=== PATIENT | female | born 1940 | race Asian ===

== ENCOUNTER 2018-07-26 10:36 | Inpatient (IN) | payer OTHER, MEDICAID ==
[~2018-07-26] VITALS: Ht 152.4 cm; Wt 48.6 kg
[2018-07-26] MEDS ORDERED: [UNRECOGNIZED DRUG - OTHER] (10:49)
[2018-07-26] MEDS ORDERED: AMLODIPINE BESY10 MG ORAL (10:49)
[2018-07-26] MEDS ORDERED: ATORVASTATIN CA20 MG ORAL (10:49)
[2018-07-26] MEDS ORDERED: CATAPRES0.1 MG ORAL (10:49)
[2018-07-26] MEDS ORDERED: MILK OF MA2400 MG/10 ORAL (10:49)
[2018-07-26] MEDS ORDERED: ASPIRIN EC81 MG ORAL (10:49)
[2018-07-26] MEDS ORDERED: KLONOPIN0.5 MG ORAL (10:49)
[2018-07-26] MEDS ORDERED: [UNRECOGNIZED DRUG - OTHER] PO (10:56)
[2018-07-26] MEDS ORDERED: ZOFRAN4 M3 ORAL (10:56)
[2018-07-26] MEDS ORDERED: QUETIAPINE FUMA25 MG ORAL (10:56)
[2018-07-26] MEDS ORDERED: MULTI-VITAMIN-1 EACH PO (10:56)
[2018-07-26] MEDS ORDERED: ACETAMINOPHEN325 M1 ORAL (10:56)
[2018-07-26] MEDS ORDERED: POTASSIUM CHLO20 ME1 ORAL (10:56)
[2018-07-26] MEDS ORDERED: SENNA8.6 M2 PO (10:56)
[2018-07-26 11:37] LABS: ANION GAP 7 mmol/L (5-15); BLOOD UREA NITROGEN 35 mg/dL (7-18); CALCIUM 9.6 MG/DL (8.5-10.1); CARBON DIOXIDE 32 MMOL/L (21-32); CHLORIDE 117 MMOL/L (98-107); CREATININE 1.3 MG/DL (0.55-1.30); SODIUM 156 MMOL/L (136-145)
[2018-07-26 11:47] VITALS: BP 119/73
[2018-07-26 11:49] LABS: HEMATOCRIT 36.1 % (37.0-47.0); HEMOGLOBIN 11.6 G/DL (12.0-16.0); MEAN CORPUSCULAR VOLUME 90 FL (80-99); PLATELET COUNT 76 K/UL (150-450); RED BLOOD COUNT 3.99 M/UL (4.20-5.40); WHITE BLOOD COUNT 9.4 K/UL (4.8-10.8)
[2018-07-26 11:54] LABS: APPEARANCE,URINE CLOUDY; BILIRUBIN, URINE NEGATIVE (NEGATIVE); GLUCOSE, URINE (UA) NEGATIVE (NEGATIVE); KETONES,URINE NEGATIVE (NEGATIVE); LEUKOCYTE ESTERASE ,URINE 3+ (NEGATIVE); NITRITE,URINE NEGATIVE (NEGATIVE); PH,URINE 5 (4.5-8.0); PROTEIN,URINE 2+ (NEGATIVE); UROBILINOGEN,URINE NORMAL MG/DL (0.0-1.0)
[2018-07-26 11:55] LABS: COLOR,URINE YELLOW
--- NOTE | 2018-07-26 11:55 | Diagnostic Imaging Report ---
Indication: Chest pain Technique: One view of the chest Comparison: none Findings: There is some atelectasis or infiltrate in the left infrahilar region. The remainder of the lungs and pleural spaces are clear. The heart size is normal. The aorta is tortuous and calcified. Impression: Left infrahilar atelectasis and/or infiltrate. No acute process otherwise
[2018-07-26 11:59] LABS: ALANINE AMINOTRANSFERASE 21 U/L (12-78); ALBUMIN/GLOBULIN RATIO 0.6 (1.0-2.7); ALKALINE PHOSPHATASE 97 U/L (46-116); ASPARTATE AMINO TRANSFERASE 19 U/L (15-37); BILIRUBIN,TOTAL 0.7 MG/DL (0.2-1.0); CKMB 0.5 NG/ML (0.0-3.6); CREATINE KINASE 27 U/L (26-308)
[2018-07-26] MEDS ORDERED: Acetaminophen 650 MG SUPP RECTAL ONE (12:00)
--- NOTE | 2018-07-26 13:08 | Emergency Room Report ---
History of Present Illness General Chief Complaint: General Complaint Source: Medical Record, EMS Present Illness HPI Patient presents from nursing facility with fever Tachycardia and possible bladder infection Patient herself is not able to provide full history Has underlying dementia There was no reports of vomiting or diarrhea Unknown regarding change in medications Allergies: Coded Allergies: No Known Allergies (Unverified , 07/26/18) Patient History Limited by: medical condition Past Medical History: see triage record Pertinent Family History: unable to obtain Reviewed Nursing Documentation: PMH: Agreed; PSxH: Agreed Nursing Documentation-PMH Past Medical History: No History, Except For Hx Cardiac Problems: No - hyperlipidemia, metabolic encephalopathy, UTI, Amemia , Hx Hypertension: Yes Hx Diabetes: Yes - Type 2 Review of Systems All Other Systems: limited - Other than the ones mentioned in the history of present illness all others are reviewed however they do stay limited due to the patient's mental status Physical Exam Vital Signs Date Time Temp Pulse Resp B/P (MAP) Pulse Ox O2 Delivery O2 Flow Rate FiO2 07/26/18 10:35 98.4 124 16 124/67 100 Room Air 98.4 Sp02 EP Interpretation: reviewed, normal General Appearance: lethargic - Patient is sluggish to respond, however responsive to verbal and physical stimuli Head: normocephalic, atraumatic Eyes: bilateral eye PERRL, bilateral eye EOMI ENT: dry mucus membranes Neck: supple Respiratory: lungs clear, no respiratory distress, no retraction Cardiovascular #1: tachycardia Gastrointestinal: non tender, soft Musculoskeletal: other - Patient does not follow all commands appropriately however, does not show any obvious focal deficit in the upper extremity Neurologic: responsive - To verbal stimuli Skin: normal color, no rash Lymphatic: no adenopathy Medical Decision Making Diagnostic Impression: Primary Impression: UTI (urinary tract infection) Additional Impressions: Sepsis Dehydration ER Course Patient is a fairly complex patient with multiple differential to consideration including but not limited to cardiac cardiopulmonary, infectious and vascular emergencies Patient's urine sample does show significant bacteria Sodium levels also elevated indicative of dehydration Patient has further IV hydrated requires broad-spectrum antibiotics and further inpatient care Labs Test 07/26/18 11:05 07/26/18 11:25 07/26/18 11:40 07/26/18 22:09 Sodium Level 156 MMOL/L (136-145) Potassium Level 3.0 MMOL/L (3.5-5.1) Chloride Level 117 MMOL/L (98-107) Carbon Dioxide Level 32 MMOL/L (21-32) Anion Gap 7 mmol/L (5-15) Blood Urea Nitrogen 35 mg/dL (7-18) Creatinine 1.3 MG/DL (0.55-1.30) Estimat Glomerular Filtration Rate mL/min (>60) Glucose Level 225 MG/DL (74-106) Lactic Acid Level 1.70 mmol/L (0.4-2.0) Calcium Level 9.6 MG/DL (8.5-10.1) Total Bilirubin 0.7 MG/DL (0.2-1.0) Aspartate Amino Transf (AST/SGOT) 19 U/L (15-37) Alanine Aminotransferase (ALT/SGPT) 21 U/L (12-78) Alkaline Phosphatase 97 U/L (46-116) Total Creatine Kinase 27 U/L (26-308) Creatine Kinase MB 0.5 NG/ML (0.0-3.6) Creatine Kinase MB Relative Index 1.8 Total Protein 7.9 G/DL (6.4-8.2) Albumin 3.0 G/DL (3.4-5.0) Globulin 4.9 g/dL Albumin/Globulin Ratio 0.6 (1.0-2.7) Urine Color Yellow Urine Appearance Cloudy Urine pH 5 (4.5-8.0) Urine Specific [place] 1.020 (1.005-1.035) Urine Protein 2+ (NEGATIVE) Urine Glucose (UA) Negative (NEGATIVE) Urine Ketones Negative (NEGATIVE) Urine Blood 5+ (NEGATIVE) Urine Nitrite Negative (NEGATIVE) Urine Bilirubin Negative (NEGATIVE) Urine Urobilinogen Normal MG/DL (0.0-1.0) Urine Leukocyte Esterase 3+ (NEGATIVE) Urine RBC 10-15 /HPF (0 - 2) Urine WBC Tntc /HPF (0 - 2) Urine Squamous Epithelial Cells Few /LPF (NONE/OCC) Urine Bacteria Many /HPF (NONE) White Blood Count 9.4 K/UL (4.8-10.8) Red Blood Count 3.99 M/UL (4.20-5.40) Hemoglobin 11.6 G/DL (12.0-16.0) Hematocrit 36.1 % (37.0-47.0) Mean Corpuscular Volume 90 FL (80-99) Mean Corpuscular Hemoglobin 29.2 PG (27.0-31.0) Mean Corpuscular Hemoglobin Concent 32.3 G/DL (32.0-36.0) Red Cell Distribution Width 13.0 % (11.6-14.8) Platelet Count 76 K/UL (150-450) Mean Platelet Volume 8.9 FL (6.5-10.1) Neutrophils (%) (Auto) % (45.0-75.0) Lymphocytes (%) (Auto) % (20.0-45.0) Monocytes (%) (Auto) % (1.0-10.0) Eosinophils (%) (Auto) % (0.0-3.0) Basophils (%) (Auto) % (0.0-2.0) Differential Total Cells Counted 100 Neutrophils % (Manual) 92 % (45-75) Lymphocytes % (Manual) 6 % (20-45) Monocytes % (Manual) 2 % (1-10) Eosinophils % (Manual) 0 % (0-3) Basophils % (Manual) 0 % (0-2) Band Neutrophils 0 % (0-8) Platelet Estimate Decreased Platelet Morphology Normal Hypochromasia 1+ Anisocytosis 1+ Arterial Blood pH 7.458 (7.350-7.450) Arterial Blood Partial Pressure CO2 41.4 mmHg (35.0-45.0) Arterial Blood Partial Pressure O2 66.1 mmHg (75.0-100.0) Arterial Blood HCO3 28.7 mmol/L (22.0-26.0) Arterial Blood Oxygen Saturation 92.9 % (95-100) Arterial Blood Base Excess 4.4 (-2-2) Renny Test Positive Test 07/26/18 23:10 07/27/18 08:15 07/27/18 12:15 07/27/18 15:53 Activated Partial Thromboplast Time 23 SEC (23-33) 46 SEC (23-33) 117 SEC (23-33) D-Dimer 18.29 mg/L FEU (0.00-0.49) Troponin I 0.044 ng/mL (0.000-0.056) White Blood Count 15.5 K/UL (4.8-10.8) Red Blood Count 3.99 M/UL (4.20-5.40) Hemoglobin 12.0 G/DL (12.0-16.0) Hematocrit 36.2 % (37.0-47.0) Mean Corpuscular Volume 91 FL (80-99) Mean Corpuscular Hemoglobin 30.0 PG (27.0-31.0) Mean Corpuscular Hemoglobin Concent 33.1 G/DL (32.0-36.0) Red Cell Distribution Width 13.6 % (11.6-14.8) Platelet Count 84 K/UL (150-450) Mean Platelet Volume 9.0 FL (6.5-10.1) Neutrophils (%) (Auto) % (45.0-75.0) Lymphocytes (%) (Auto) % (20.0-45.0) Monocytes (%) (Auto) % (1.0-10.0) Eosinophils (%) (Auto) % (0.0-3.0) Basophils (%) (Auto) % (0.0-2.0) Differential Total Cells Counted 100 Neutrophils % (Manual) 91 % (45-75) Lymphocytes % (Manual) 7 % (20-45) Monocytes % (Manual) 2 % (1-10) Eosinophils % (Manual) 0 % (0-3) Basophils % (Manual) 0 % (0-2) Band Neutrophils 0 % (0-8) Other Cell Type Pathologist comment Platelet Estimate Decreased Platelet Morphology Normal Red Blood Cell Morphology Normal Reticulocyte Count 2.3 % (0.0-2.0) Fibrinogen 375 mg/dL (200-400) Sodium Level 152 MMOL/L (136-145) Potassium Level 2.9 MMOL/L (3.5-5.1) Chloride Level 117 MMOL/L (98-107) Carbon Dioxide Level 27 MMOL/L (21-32) Anion Gap 8 mmol/L (5-15) Blood Urea Nitrogen 35 mg/dL (7-18) Creatinine 1.2 MG/DL (0.55-1.30) Estimat Glomerular Filtration Rate mL/min (>60) Glucose Level 213 MG/DL (74-106) Uric Acid 5.1 MG/DL (2.6-7.2) Calcium Level 9.3 MG/DL (8.5-10.1) Phosphorus Level 2.7 MG/DL (2.5-4.9) Magnesium Level 2.1 MG/DL (1.8-2.4) Iron Level 23 ug/dL (50-175) Total Iron Binding Capacity 142 ug/dL (250-450) Percent Iron Saturation 16 % (15-50) Unsaturated Iron Binding 119 ug/dL (112-346) Ferritin 547 NG/ML (8-388) Total Bilirubin 0.8 MG/DL (0.2-1.0) Aspartate Amino Transf (AST/SGOT) 18 U/L (15-37) Alanine Aminotransferase (ALT/SGPT) 17 U/L (12-78) Alkaline Phosphatase 95 U/L (46-116) Total Protein 7.4 G/DL (6.4-8.2) Albumin 2.5 G/DL (3.4-5.0) Globulin 4.9 g/dL Albumin/Globulin Ratio 0.5 (1.0-2.7) Vitamin B12 Level 1873 PG/ML (193-986) Folate 34.8 NG/ML (8.6-58.9) Thyroid Stimulating Hormone (TSH) 1.577 uiU/mL (0.358-3.740) Free Thyroxine 1.37 NG/DL (0.76-1.46) HIV (1&2) Antibody Rapid Negative (NEGATIVE) Carcinoembryonic Antigen 3.5 ng/mL (0.0-4.7) Test 07/27/18 23:05 07/28/18 02:30 Activated Partial Thromboplast Time 98 SEC (23-33) Rhythm Strip Diag. Results EP Interpretation: yes Rate: 110 Rhythm: no PVC's, no ectopy, other - Sinus tach Chest X-Ray Diagnostic Results Chest X-Ray Diagnostic Results : Chest X-Ray Ordered: Yes # of Views/Limited/Complete: 1 View Indication: Shortness of Breath EP Interpretation: Yes Interpretation: no pneumothorax, other - Left lower lobe atelectasis, heart size normal Impression: Other - Left lower lobe atelectasis/effusion Electronically Signed by: Yi Marte DO Last Vital Signs Date Time Temp Pulse Resp B/P (MAP) Pulse Ox O2 Delivery O2 Flow Rate FiO2 07/26/18 12:02 101.8 07/26/18 11:47 126 20 119/73 100 Room Air Status: improved Disposition: ADMITTED INPATIENT Condition: Serious Referrals: NON PHYSICIAN (PCP) Yi Marte DO Jul 26, 2018 13:08
[2018-07-26 13:10] VITALS: BP 129/74
[2018-07-26 14:45] VITALS: BP 112/80
[2018-07-26] MEDS ORDERED: Acetaminophen 500mg (ES) tab ORAL PRN (15:25)
[2018-07-26 16:00] VITALS: BP 115/69
--- NOTE | 2018-07-26 16:35 | Consultation ---
Consult Note Consult Note HyperNatremia Patient presents from nursing facility with fever Tachycardia and possible bladder infection Patient herself is not able to provide full history Has underlying dementia There was no reports of vomiting or diarrhea Unknown regarding change in medications No Known Allergies (Unverified , 07/26/18) Past Medical History: No History, Except For Hx Cardiac Problems: No - hyperlipidemia, metabolic encephalopathy, UTI, Amemia , Hx Hypertension: Yes Hx Diabetes: Yes - Type 2 Assessment/Plan Dehydration DM OOC Anemia UTI 1/2 NS KCL Labs in am Per consultants Parvez Bergman MD Jul 26, 2018 16:35
[2018-07-26] MEDS: D5 1/2NS w/KCl 40meq 1000ml 1,000 ML IV SCH (17:47)
[2018-07-26] MEDS: NovoLOG Insulin Flexpen SUBQ SCH ×2 (17:49→21:23)
[2018-07-26] MEDS ORDERED: cefTRIAXone 1 GM in D5W 55 ML IVPB SCH (18:00)
[2018-07-26 20:00] VITALS: BP 95/55
[2018-07-26] MEDS: Piperacillin/Tazobactam 3.375 GM in D5W 110 ML IVPB SCH (21:18)
[2018-07-26] MEDS ORDERED: Enoxaparin 80mg Inj SUBQ ONE (22:00)
[2018-07-26] MEDS ORDERED: Heparin 2000 units/Ns 1000ml IV SCH (22:15)
[2018-07-27] VITALS: BP 107/77
[2018-07-27] MEDS ORDERED: Heparin 2000 units/Ns 1000ml IV SCH (00:30)
[2018-07-27] MEDS ORDERED: Heparin 25,000u/D5W 500ml 500 ML IV SCH ×4 (00:45→23:45)
[2018-07-27 04:00] VITALS: BP 112/95
[2018-07-27] MEDS: Piperacillin/Tazobactam 3.375 GM in D5W 110 ML IVPB SCH ×3 (04:14→20:29)
--- NOTE | 2018-07-27 06:01 | Consultation ---
Consult Note Consult Note Hematology Consultation ANIRUDH: DVT and thrombocytopenia REQ MD: Yi Asencio DOS: 07/27/2018 ID Ms. Ronaldo Lara is a pleasant 78y old Yakut-speaking female with limited history per record presents from nursing facility with fever, Tachycardia and possible bladder infection, Patient herself is not able to provide full history , Has underlying dementia, will need to contact facility for further info. reviewed imaging shows a dvt and heme/pulm consulted for further eval and treatment. There was no reports of vomiting or diarrhea Unknown regarding change in medications Nephrology was consulted Allergies: No Known Allergies (Unverified , 07/26/18) Limited by: medical condition Past Medical History: see triage record Pertinent Family History: unable to obtain Reviewed Nursing Documentation: PMH: Agreed; PSxH: Agreed Past Medical History: No History, Except For Hx Cardiac Problems: No - hyperlipidemia, metabolic encephalopathy, UTI, Amemia , Hx Hypertension: Yes Hx Diabetes: Yes - Type 2 ER ROS - General Review of Systems All Other Systems: limited - Other than the ones mentioned in the history of present illness all others are reviewed however they do stay limited due to the patient's mental status ER Physical Exam - General Physical Exam Last 24 Hour Vital Signs Date Time Temp Pulse Resp B/P (MAP) Pulse Ox O2 Delivery O2 Flow Rate FiO2 07/27/18 04:00 124 07/27/18 04:00 97.2 124 21 112/95 (101) 93 97.2 07/27/18 00:00 119 07/27/18 00:00 97.2 121 20 107/77 (87) 100 97.2 07/26/18 21:00 Nasal Cannula 2.0 07/26/18 20:00 97.3 108 19 95/55 (68) 100 97.3 07/26/18 20:00 111 07/26/18 16:00 106 07/26/18 16:00 96.8 103 18 115/69 (84) 100 96.8 07/26/18 15:52 Room Air 07/26/18 15:00 107 07/26/18 14:45 96.1 111 18 112/80 (91) 100 96.1 07/26/18 13:54 100.0 119 15 129/74 100 Nasal Cannula 2.0 100.0 07/26/18 13:10 100.0 119 15 129/74 100 Nasal Cannula 2.0 100.0 07/26/18 12:32 100.0 07/26/18 12:02 101.8 07/26/18 11:47 101.8 126 20 119/73 100 Room Air 101.8 07/26/18 10:35 98.4 124 16 124/67 100 Room Air 98.4 Gen: NAD Pulm: CTAB, no cwr CV: RRR, no mgr Abd: soft, nt, nd Ext: no swelling of lower ext Neuro: demented A/R: DVT of the left leg -- new onset, has not had these symptoms before --> anticoagulation has been ordered is on heparin gtt --> monitor platelet count closely --> if >50k, okay to continue anticoag, however if drops consider ivc filter --> will obtain thrombocytopenia w/u Thrombocytopenia --> unknown cause, first time here at [facility], do not have baseline, could be reactive --> smear, hep, hiv, us abd ordered Dehydration DM OOC Anemia UTI Greatly appreciate consultation! Dewayne Gayle MD Jul 27, 2018 06:01
[2018-07-27] MEDS: NovoLOG Insulin Flexpen SUBQ SCH ×4 (06:47→20:57)
[2018-07-27 08:00] VITALS: BP 133/80
[2018-07-27 08:41] LABS: HEMATOCRIT 36.2 % (37.0-47.0); MEAN CORPUSCULAR VOLUME 91 FL (80-99); PLATELET COUNT 84 K/UL (150-450); RED BLOOD COUNT 3.99 M/UL (4.20-5.40); RED CELL DISTRIBUTION WIDTH 13.6 % (11.6-14.8); WHITE BLOOD COUNT 15.5 K/UL (4.8-10.8)
[2018-07-27] MEDS: Aspirin EC 81mg tab ORAL SCH (08:47)
[2018-07-27] MEDS ORDERED: Heparin 5000 units/ml inj IV SCH (09:05)
[2018-07-27 09:07] LABS: ALANINE AMINOTRANSFERASE 17 U/L (12-78); ALBUMIN 2.5 G/DL (3.4-5.0); ALBUMIN/GLOBULIN RATIO 0.5 (1.0-2.7); ALKALINE PHOSPHATASE 95 U/L (46-116); ANION GAP 8 mmol/L (5-15); ASPARTATE AMINO TRANSFERASE 18 U/L (15-37); BILIRUBIN,TOTAL 0.8 MG/DL (0.2-1.0); BLOOD UREA NITROGEN 35 mg/dL (7-18); CALCIUM 9.3 MG/DL (8.5-10.1); CARBON DIOXIDE 27 MMOL/L (21-32); CHLORIDE 117 MMOL/L (98-107); CREATININE 1.2 MG/DL (0.55-1.30); FERRITIN 547 NG/ML (8-388); POTASSIUM 2.9 MMOL/L (3.5-5.1); SODIUM 152 MMOL/L (136-145)
[2018-07-27 09:32] LABS: % IRON SATURATION 16 % (15-50); IRON 23 ug/dL (50-175); TOTAL IRON BINDING CAPACITY 142 ug/dL (250-450)
[2018-07-27 10:08] LABS: PHOSPHORUS 2.7 MG/DL (2.5-4.9)
--- NOTE | 2018-07-27 10:26 | GI Initial Consult Note ---
History of Present Illness General Date patient seen: Jul 27, 2018 Time patient seen: 12:13 Reason for Hospitalization: General Complaint Referring physician: SINDI BUSTAMANTE Reason for Consultation: ABDOMINAL PAIN Present Illness HPI Patient presents from nursing facility with fever Tachycardia and possible bladder infection Patient herself is not able to provide full history Has underlying dementia There was no reports of vomiting or diarrhea Unknown regarding change in medications Gi consulted for AMS r/o hepatic encephalopathy. ROS limited, pt seen awake NAD with no active s/sx of N/V/D. Patient presents today with leukocytosis and electrolyte imbalance. Unknown history of endoscopy / colonoscopy. Home Meds Reported Medications Ondansetron* (ZOFRAN*) 4 Mg Tablet, 4 MG ORAL Q4HR PRN for Nausea & Vomiting, TAB 07/26/18 Acetaminophen* (ACETAMINOPHEN 325MG TABLET*) 325 Mg Tablet, 650 MG ORAL Q4H PRN for Fever/Headache/Mild Pain, TAB 07/26/18 Quetiapine Fumarate* (SEROQUEL*) 25 Mg Tablet, 25 MG ORAL BID, TAB 07/26/18 Sennosides (SENNA) 8.6 Mg Tablet, 8.6 MG PO QHS, TAB 07/26/18 Potassium Chloride* (K-DUR*) 20 Meq Tab.er.prt, 20 MEQ ORAL DAILY, #7 TAB 0 Refills 07/26/18 [mylanta max strength] No Conflict Check, 15 ML PO Q6HR PRN for dyspepsia 07/26/18 Multivit-Min/Iron Fum/Folic AC (Oprvn-Meipphi-Cjjkwkjc Tablet) 1 Each Tablet, 1 EACH PO DAILY, TAB 07/26/18 Magnesium Hydroxide* (MILK OF MAGNESIA*) 2,400 Mg/10 Ml Oral.susp, 30 ML ORAL DAILY PRN for Constipation, ML 07/26/18 Clonazepam* (KLONOPIN*) 0.5 Mg Tablet, 0.5 MG ORAL BID, #15 TAB 0 Refills 07/26/18 [lispro ss] No Conflict Check 07/26/18 Clonidine Hcl* (CATAPRES*) 0.1 Mg Tablet, 0.1 MG ORAL EVERY 4 HOURS PRN for For High Blood Pressure, TAB 07/26/18 Atorvastatin Calcium* (ATORVASTATIN CALCIUM*) 20 Mg Tablet, 20 MG ORAL BEDTIME, TAB 07/26/18 Aspirin Ec* (ASPIRIN EC*) 81 Mg Tablet.dr, 81 MG ORAL DAILY, TAB 07/26/18 Amlodipine Besylate* (AMLODIPINE BESYLATE*) 10 Mg Tablet, 10 MG ORAL DAILY, TAB 07/26/18 Med list reviewed/reconciled: Yes Allergies: Coded Allergies: No Known Allergies (Unverified , 07/26/18) Patient History Limited by: medical condition History Provided By: Medical Record PMH Narrative Limited by: medical condition Past Medical History: see triage record Pertinent Family History: unable to obtain Reviewed Nursing Documentation: PMH: Agreed; PSxH: Agreed Nursing Documentation-PMH Past Medical History: No History, Except For Hx Cardiac Problems: No - hyperlipidemia, metabolic encephalopathy, UTI, Anemia. Hx Hypertension: Yes Hx Diabetes: Yes - Type 2 Review of Systems All Other Systems: limited Physical Exam Vital Signs Date Time Temp Pulse Resp B/P (MAP) Pulse Ox O2 Delivery O2 Flow Rate FiO2 07/26/18 10:35 98.4 124 16 124/67 100 Room Air 98.4 07/26/18 13:10 2.0 Sp02 EP Interpretation: reviewed, normal Labs Laboratory Tests Test 07/26/18 11:05 07/26/18 11:25 07/26/18 11:40 07/26/18 22:09 Sodium Level 156 MMOL/L (136-145) H Potassium Level 3.0 MMOL/L (3.5-5.1) L Chloride Level 117 MMOL/L (98-107) H Carbon Dioxide Level 32 MMOL/L (21-32) Anion Gap 7 mmol/L (5-15) Blood Urea Nitrogen 35 mg/dL (7-18) H Creatinine 1.3 MG/DL (0.55-1.30) Estimat Glomerular Filtration Rate mL/min (>60) Glucose Level 225 MG/DL (74-106) H Lactic Acid Level 1.70 mmol/L (0.4-2.0) Calcium Level 9.6 MG/DL (8.5-10.1) Total Bilirubin 0.7 MG/DL (0.2-1.0) Aspartate Amino Transf (AST/SGOT) 19 U/L (15-37) Alanine Aminotransferase (ALT/SGPT) 21 U/L (12-78) Alkaline Phosphatase 97 U/L (46-116) Total Creatine Kinase 27 U/L (26-308) Creatine Kinase MB 0.5 NG/ML (0.0-3.6) Creatine Kinase MB Relative Index 1.8 Total Protein 7.9 G/DL (6.4-8.2) Albumin 3.0 G/DL (3.4-5.0) L Globulin 4.9 g/dL Albumin/Globulin Ratio 0.6 (1.0-2.7) L Urine Color Yellow Urine Appearance Cloudy Urine pH 5 (4.5-8.0) Urine Specific [place] 1.020 (1.005-1.035) Urine Protein 2+ (NEGATIVE) H Urine Glucose (UA) Negative (NEGATIVE) Urine Ketones Negative (NEGATIVE) Urine Blood 5+ (NEGATIVE) H Urine Nitrite Negative (NEGATIVE) Urine Bilirubin Negative (NEGATIVE) Urine Urobilinogen Normal MG/DL (0.0-1.0) Urine Leukocyte Esterase 3+ (NEGATIVE) H Urine RBC 10-15 /HPF (0 - 2) H Urine WBC Tntc /HPF (0 - 2) H Urine Squamous Epithelial Cells Few /LPF (NONE/OCC) Urine Bacteria Many /HPF (NONE) H White Blood Count 9.4 K/UL (4.8-10.8) Red Blood Count 3.99 M/UL (4.20-5.40) L Hemoglobin 11.6 G/DL (12.0-16.0) L Hematocrit 36.1 % (37.0-47.0) L Mean Corpuscular Volume 90 FL (80-99) Mean Corpuscular Hemoglobin 29.2 PG (27.0-31.0) Mean Corpuscular Hemoglobin Concent 32.3 G/DL (32.0-36.0) Red Cell Distribution Width 13.0 % (11.6-14.8) Platelet Count 76 K/UL (150-450) L Mean Platelet Volume 8.9 FL (6.5-10.1) Neutrophils (%) (Auto) % (45.0-75.0) Lymphocytes (%) (Auto) % (20.0-45.0) Monocytes (%) (Auto) % (1.0-10.0) Eosinophils (%) (Auto) % (0.0-3.0) Basophils (%) (Auto) % (0.0-2.0) Differential Total Cells Counted 100 Neutrophils % (Manual) 92 % (45-75) H Lymphocytes % (Manual) 6 % (20-45) L Monocytes % (Manual) 2 % (1-10) Eosinophils % (Manual) 0 % (0-3) Basophils % (Manual) 0 % (0-2) Band Neutrophils 0 % (0-8) Platelet Estimate Decreased L Platelet Morphology Normal Hypochromasia 1+ Anisocytosis 1+ Arterial Blood pH 7.458 (7.350-7.450) Arterial Blood Partial Pressure CO2 41.4 mmHg (35.0-45.0) Arterial Blood Partial Pressure O2 66.1 mmHg (75.0-100.0) L Arterial Blood HCO3 28.7 mmol/L (22.0-26.0) H Arterial Blood Oxygen Saturation 92.9 % (95-100) L Arterial Blood Base Excess 4.4 (-2-2) H Renny Test Positive Test 07/26/18 23:10 07/27/18 08:15 Activated Partial Thromboplast Time 23 SEC (23-33) 46 SEC (23-33) H D-Dimer 18.29 mg/L FEU (0.00-0.49) H Troponin I 0.044 ng/mL (0.000-0.056) White Blood Count 15.5 K/UL (4.8-10.8) #H Red Blood Count 3.99 M/UL (4.20-5.40) L Hemoglobin 12.0 G/DL (12.0-16.0) Hematocrit 36.2 % (37.0-47.0) L Mean Corpuscular Volume 91 FL (80-99) Mean Corpuscular Hemoglobin 30.0 PG (27.0-31.0) Mean Corpuscular Hemoglobin Concent 33.1 G/DL (32.0-36.0) Red Cell Distribution Width 13.6 % (11.6-14.8) Platelet Count 84 K/UL (150-450) L Mean Platelet Volume 9.0 FL (6.5-10.1) Neutrophils (%) (Auto) % (45.0-75.0) Lymphocytes (%) (Auto) % (20.0-45.0) Monocytes (%) (Auto) % (1.0-10.0) Eosinophils (%) (Auto) % (0.0-3.0) Basophils (%) (Auto) % (0.0-2.0) Differential Total Cells Counted 100 Neutrophils % (Manual) 91 % (45-75) H Lymphocytes % (Manual) 7 % (20-45) L Monocytes % (Manual) 2 % (1-10) Eosinophils % (Manual) 0 % (0-3) Basophils % (Manual) 0 % (0-2) Band Neutrophils 0 % (0-8) Platelet Estimate Decreased L Platelet Morphology Normal Red Blood Cell Morphology Normal Reticulocyte Count Pending Fibrinogen 375 mg/dL (200-400) Sodium Level 152 MMOL/L (136-145) H Potassium Level 2.9 MMOL/L (3.5-5.1) L Chloride Level 117 MMOL/L (98-107) H Carbon Dioxide Level 27 MMOL/L (21-32) Anion Gap 8 mmol/L (5-15) Blood Urea Nitrogen 35 mg/dL (7-18) H Creatinine 1.2 MG/DL (0.55-1.30) Estimat Glomerular Filtration Rate mL/min (>60) Glucose Level 213 MG/DL (74-106) H Uric Acid 5.1 MG/DL (2.6-7.2) Calcium Level 9.3 MG/DL (8.5-10.1) Phosphorus Level 2.7 MG/DL (2.5-4.9) Magnesium Level 2.1 MG/DL (1.8-2.4) Iron Level 23 ug/dL (50-175) L Total Iron Binding Capacity 142 ug/dL (250-450) L Percent Iron Saturation 16 % (15-50) Unsaturated Iron Binding 119 ug/dL (112-346) Ferritin 547 NG/ML (8-388) H Total Bilirubin 0.8 MG/DL (0.2-1.0) Aspartate Amino Transf (AST/SGOT) 18 U/L (15-37) Alanine Aminotransferase (ALT/SGPT) 17 U/L (12-78) Alkaline Phosphatase 95 U/L (46-116) Total Protein 7.4 G/DL (6.4-8.2) Albumin 2.5 G/DL (3.4-5.0) L Globulin 4.9 g/dL Albumin/Globulin Ratio 0.5 (1.0-2.7) L Vitamin B12 Level 1873 PG/ML (193-986) H Folate 34.8 NG/ML (8.6-58.9) Thyroid Stimulating Hormone (TSH) 1.577 uiU/mL (0.358-3.740) Free Thyroxine 1.37 NG/DL (0.76-1.46) HIV (1&2) Antibody Rapid Negative (NEGATIVE) General Appearance: well appearing, no apparent distress, alert Head: normocephalic EENT: PERRL/EOMI, normal ENT inspection Neck: supple Respiratory: normal breath sounds, no respiratory distress Cardiovascular: normal rate Gastrointestinal: normal inspection, non tender, soft, normal bowel sounds, non -distended Rectal: deferred Genitourinary: no CVA tenderness Musculoskeletal: normal inspection, back normal Neurologic: alert, responsive Skin: normal inspection, normal color, no rash, warm/dry, palpation normal, well hydrated Lymphatic: normal inspection, no adenopathy Current Medications Current Medications Medications (Trade) Dose Ordered Sig/Laure Route PRN Reason Start Time Stop Time Status Last Admin Dose Admin Acetaminophen (Tylenol) 650 mg Q4H PRN ORAL Fever/Headache/Mild Pain 07/26/18 16:45 08/25/18 16:44 Aspirin (Ecotrin) 81 mg DAILY ORAL 07/27/18 09:00 08/26/18 08:59 Ceftriaxone Sodium 1 gm/ Dextrose 55 ml @ 110 mls/hr Q24H IVPB 07/26/18 18:00 08/02/18 17:59 07/26/18 17:47 Dextrose (Dextrose 50%) 25 ml Q30M PRN IV Hypoglycemia 07/26/18 15:15 08/25/18 15:14 Dextrose (Dextrose 50%) 50 ml Q30M PRN IV Hypoglycemia 07/26/18 15:15 08/25/18 15:14 Dextrose/ Electrolytes 1,000 ml @ 50 mls/hr Q20H IV 07/26/18 17:00 08/25/18 16:59 07/26/18 17:47 Famotidine (Pepcid) 20 mg BID ORAL 07/26/18 18:00 08/25/18 17:59 07/26/18 17:46 Heparin Sodium/ Dextrose 500 ml @ 20.24 mls/ hr ADJUST PER PROTOCOL IV 07/27/18 09:05 08/26/18 09:04 07/27/18 09:59 Insulin Aspart (NovoLOG) BEFORE MEALS AND HS SUBQ 07/26/18 16:30 08/25/18 16:29 07/27/18 06:47 Piperacillin Sod/ Tazobactam Sod 3.375 gm/Dextrose 110 ml @ 27.5 mls/hr Q8H IVPB 07/26/18 20:00 08/02/18 19:59 07/27/18 04:14 GI: Plan Problems: (1) Encephalopathy due to metabolic factor or toxin (2) Dementia with behavioral disturbance (3) UTI (urinary tract infection) (4) Sepsis Plan abdominal U/S pending r/o hepatic encephalopathy 2/2 cirrhosis maintain NPO + IVFs, fu ST evaluation calorie count PEG if needed prn transfusions ppi abx zofran prn fu labs outpatient GI procedures Discussed with Dr. Argueta. Thank you for this patient referral, we will follow. The patient was seen and examined at bedside and all new and available data was reviewed in the patients chart. I agree with the above findings, impression and plan. (Patient seen earlier today. Signature stamp does not reflect patient encounter time.). - [facility] Jul 27, 2018 10:26
--- NOTE | 2018-07-27 11:11 | Consultation ---
History of Present Illness General Date patient seen: Jul 26, 2018 Chief Complaint: General Complaint Present Illness HPI 78y old Macedonian-speaking female with hx of mmp and dementia who was brought in with fever and Tachycardia. The pt has cognitive impairment and is disorganized. the pt is unable to provide any hx. the pt gets agitated. Allergies: Coded Allergies: No Known Allergies (Unverified , 07/26/18) Medication History Scheduled Amlodipine Besylate* (Amlodipine Besylate*), 10 MG ORAL DAILY, (Reported) Aspirin Ec* (Aspirin Ec*), 81 MG ORAL DAILY, (Reported) Atorvastatin Calcium* (Atorvastatin Calcium*), 20 MG ORAL BEDTIME, (Reported) Clonazepam* (Klonopin*), 0.5 MG ORAL BID, (Reported) Multivit-Min/Iron Fum/Folic AC (Ezyde-Wonqnfj-Znbevfvh Tablet), 1 EACH PO DAILY, (Reported) Potassium Chloride* (K-Dur*), 20 MEQ ORAL DAILY, (Reported) Quetiapine Fumarate* (Seroquel*), 25 MG ORAL BID, (Reported) Sennosides (Senna), 8.6 MG PO QHS, (Reported) Scheduled PRN Acetaminophen* (Acetaminophen 325MG Tablet*), 650 MG ORAL Q4H PRN for Fever/ Headache/Mild Pain, (Reported) Clonidine Hcl* (Catapres*), 0.1 MG ORAL EVERY 4 HOURS PRN for For High Blood Pressure, (Reported) Magnesium Hydroxide* (Milk Of Magnesia*), 30 ML ORAL DAILY PRN for Constipation, (Reported) Ondansetron* (Zofran*), 4 MG ORAL Q4HR PRN for Nausea & Vomiting, (Reported) [mylanta max strength], 15 ML PO Q6HR PRN for dyspepsia, (Reported) Miscellaneous Medications [lispro ss], (Reported) Patient History Limited by: medical condition History Provided By: Patient, Medical Record Healthcare decision maker Resuscitation status Full Code Advanced Directive on File Past Medical/Surgical History Past Medical/Surgical History: (1) Sepsis (2) UTI (urinary tract infection) Review of Systems Psychiatric: Reports: prior hx, anxiety, depressed feelings, emotional problems , hallucinations Physical Exam General Appearance: no apparent distress, alert, confused, agitated Last 24 Hour Vital Signs Date Time Temp Pulse Resp B/P (MAP) Pulse Ox O2 Delivery O2 Flow Rate FiO2 07/27/18 09:04 Room Air 07/27/18 08:00 97.6 109 19 133/80 (97) 98 97.6 07/27/18 08:00 111 07/27/18 04:00 124 07/27/18 04:00 97.2 124 21 112/95 (101) 93 97.2 07/27/18 00:00 119 07/27/18 00:00 97.2 121 20 107/77 (87) 100 97.2 07/26/18 21:00 Nasal Cannula 2.0 07/26/18 20:00 97.3 108 19 95/55 (68) 100 97.3 07/26/18 20:00 111 07/26/18 16:00 106 07/26/18 16:00 96.8 103 18 115/69 (84) 100 96.8 07/26/18 15:52 Room Air 07/26/18 15:00 107 07/26/18 14:45 96.1 111 18 112/80 (91) 100 96.1 07/26/18 13:54 100.0 119 15 129/74 100 Nasal Cannula 2.0 100.0 07/26/18 13:10 100.0 119 15 129/74 100 Nasal Cannula 2.0 100.0 07/26/18 12:32 100.0 07/26/18 12:02 101.8 07/26/18 11:47 101.8 126 20 119/73 100 Room Air 101.8 Intake and Output 07/26/18 07/27/18 19:00 07:00 Intake Total 437.5 ml 786.82 ml Balance 437.5 ml 786.82 ml Intake Oral 320 ml IV Total 117.5 ml 786.82 ml # Voids 1 2 Laboratory Tests Test 07/26/18 11:25 07/26/18 11:40 07/26/18 22:09 07/26/18 23:10 Urine Color Yellow Urine Appearance Cloudy Urine pH 5 (4.5-8.0) Urine Specific [place] 1.020 (1.005-1.035) Urine Protein 2+ (NEGATIVE) H Urine Glucose (UA) Negative (NEGATIVE) Urine Ketones Negative (NEGATIVE) Urine Blood 5+ (NEGATIVE) H Urine Nitrite Negative (NEGATIVE) Urine Bilirubin Negative (NEGATIVE) Urine Urobilinogen Normal MG/DL (0.0-1.0) Urine Leukocyte Esterase 3+ (NEGATIVE) H Urine RBC 10-15 /HPF (0 - 2) H Urine WBC Tntc /HPF (0 - 2) H Urine Squamous Epithelial Cells Few /LPF (NONE/OCC) Urine Bacteria Many /HPF (NONE) H White Blood Count 9.4 K/UL (4.8-10.8) Red Blood Count 3.99 M/UL (4.20-5.40) L Hemoglobin 11.6 G/DL (12.0-16.0) L Hematocrit 36.1 % (37.0-47.0) L Mean Corpuscular Volume 90 FL (80-99) Mean Corpuscular Hemoglobin 29.2 PG (27.0-31.0) Mean Corpuscular Hemoglobin Concent 32.3 G/DL (32.0-36.0) Red Cell Distribution Width 13.0 % (11.6-14.8) Platelet Count 76 K/UL (150-450) L Mean Platelet Volume 8.9 FL (6.5-10.1) Neutrophils (%) (Auto) % (45.0-75.0) Lymphocytes (%) (Auto) % (20.0-45.0) Monocytes (%) (Auto) % (1.0-10.0) Eosinophils (%) (Auto) % (0.0-3.0) Basophils (%) (Auto) % (0.0-2.0) Differential Total Cells Counted 100 Neutrophils % (Manual) 92 % (45-75) H Lymphocytes % (Manual) 6 % (20-45) L Monocytes % (Manual) 2 % (1-10) Eosinophils % (Manual) 0 % (0-3) Basophils % (Manual) 0 % (0-2) Band Neutrophils 0 % (0-8) Platelet Estimate Decreased L Platelet Morphology Normal Hypochromasia 1+ Anisocytosis 1+ Arterial Blood pH 7.458 (7.350-7.450) Arterial Blood Partial Pressure CO2 41.4 mmHg (35.0-45.0) Arterial Blood Partial Pressure O2 66.1 mmHg (75.0-100.0) L Arterial Blood HCO3 28.7 mmol/L (22.0-26.0) H Arterial Blood Oxygen Saturation 92.9 % (95-100) L Arterial Blood Base Excess 4.4 (-2-2) H Renny Test Positive Activated Partial Thromboplast Time 23 SEC (23-33) D-Dimer 18.29 mg/L FEU (0.00-0.49) H Troponin I 0.044 ng/mL (0.000-0.056) Test 07/27/18 08:15 White Blood Count 15.5 K/UL (4.8-10.8) #H Red Blood Count 3.99 M/UL (4.20-5.40) L Hemoglobin 12.0 G/DL (12.0-16.0) Hematocrit 36.2 % (37.0-47.0) L Mean Corpuscular Volume 91 FL (80-99) Mean Corpuscular Hemoglobin 30.0 PG (27.0-31.0) Mean Corpuscular Hemoglobin Concent 33.1 G/DL (32.0-36.0) Red Cell Distribution Width 13.6 % (11.6-14.8) Platelet Count 84 K/UL (150-450) L Mean Platelet Volume 9.0 FL (6.5-10.1) Neutrophils (%) (Auto) % (45.0-75.0) Lymphocytes (%) (Auto) % (20.0-45.0) Monocytes (%) (Auto) % (1.0-10.0) Eosinophils (%) (Auto) % (0.0-3.0) Basophils (%) (Auto) % (0.0-2.0) Differential Total Cells Counted 100 Neutrophils % (Manual) 91 % (45-75) H Lymphocytes % (Manual) 7 % (20-45) L Monocytes % (Manual) 2 % (1-10) Eosinophils % (Manual) 0 % (0-3) Basophils % (Manual) 0 % (0-2) Band Neutrophils 0 % (0-8) Platelet Estimate Decreased L Platelet Morphology Normal Red Blood Cell Morphology Normal Reticulocyte Count 2.3 % (0.0-2.0) H Activated Partial Thromboplast Time 46 SEC (23-33) H Fibrinogen 375 mg/dL (200-400) Sodium Level 152 MMOL/L (136-145) H Potassium Level 2.9 MMOL/L (3.5-5.1) L Chloride Level 117 MMOL/L (98-107) H Carbon Dioxide Level 27 MMOL/L (21-32) Anion Gap 8 mmol/L (5-15) Blood Urea Nitrogen 35 mg/dL (7-18) H Creatinine 1.2 MG/DL (0.55-1.30) Estimat Glomerular Filtration Rate mL/min (>60) Glucose Level 213 MG/DL (74-106) H Uric Acid 5.1 MG/DL (2.6-7.2) Calcium Level 9.3 MG/DL (8.5-10.1) Phosphorus Level 2.7 MG/DL (2.5-4.9) Magnesium Level 2.1 MG/DL (1.8-2.4) Iron Level 23 ug/dL (50-175) L Total Iron Binding Capacity 142 ug/dL (250-450) L Percent Iron Saturation 16 % (15-50) Unsaturated Iron Binding 119 ug/dL (112-346) Ferritin 547 NG/ML (8-388) H Total Bilirubin 0.8 MG/DL (0.2-1.0) Aspartate Amino Transf (AST/SGOT) 18 U/L (15-37) Alanine Aminotransferase (ALT/SGPT) 17 U/L (12-78) Alkaline Phosphatase 95 U/L (46-116) Total Protein 7.4 G/DL (6.4-8.2) Albumin 2.5 G/DL (3.4-5.0) L Globulin 4.9 g/dL Albumin/Globulin Ratio 0.5 (1.0-2.7) L Vitamin B12 Level 1873 PG/ML (193-986) H Folate 34.8 NG/ML (8.6-58.9) Thyroid Stimulating Hormone (TSH) 1.577 uiU/mL (0.358-3.740) Free Thyroxine 1.37 NG/DL (0.76-1.46) HIV (1&2) Antibody Rapid Negative (NEGATIVE) Microbiology Date/Time Source Procedure Growth Status 07/26/18 11:25 Urine,Clean Catch Urine Culture - Preliminary Gram Negative Bacillus 1 Resulted Height (Feet): 5 Height (Inches): 2.00 Weight (Pounds): 102 Medications Current Medications Medications (Trade) Dose Ordered Sig/Laure Route PRN Reason Start Time Stop Time Status Last Admin Dose Admin Acetaminophen (Tylenol) 650 mg Q4H PRN ORAL Fever/Headache/Mild Pain 07/26/18 16:45 08/25/18 16:44 Aspirin (Ecotrin) 81 mg DAILY ORAL 07/27/18 09:00 08/26/18 08:59 Ceftriaxone Sodium 1 gm/ Dextrose 55 ml @ 110 mls/hr Q24H IVPB 07/26/18 18:00 08/02/18 17:59 07/26/18 17:47 Dextrose (Dextrose 50%) 25 ml Q30M PRN IV Hypoglycemia 07/26/18 15:15 08/25/18 15:14 Dextrose (Dextrose 50%) 50 ml Q30M PRN IV Hypoglycemia 07/26/18 15:15 08/25/18 15:14 Dextrose/ Electrolytes 1,000 ml @ 50 mls/hr Q20H IV 07/26/18 17:00 08/25/18 16:59 07/26/18 17:47 Famotidine (Pepcid) 20 mg BID ORAL 07/26/18 18:00 08/25/18 17:59 07/26/18 17:46 Heparin Sodium/ Dextrose 500 ml @ 20.24 mls/ hr ADJUST PER PROTOCOL IV 07/27/18 09:05 08/26/18 09:04 07/27/18 09:59 Insulin Aspart (NovoLOG) BEFORE MEALS AND HS SUBQ 07/26/18 16:30 08/25/18 16:29 07/27/18 06:47 Piperacillin Sod/ Tazobactam Sod 3.375 gm/Dextrose 110 ml @ 27.5 mls/hr Q8H IVPB 07/26/18 20:00 08/02/18 19:59 07/27/18 04:14 Quetiapine Fumarate (SEROquel) 25 mg Q12HR ORAL 07/27/18 10:40 08/26/18 10:39 Assessment/Plan Problem List: (1) Dementia with behavioral disturbance ICD Codes: F03.91 - Unspecified dementia with behavioral disturbance SNOMED: 3667996854160 (2) Encephalopathy due to metabolic factor or toxin SNOMED: 343688438 Status: stable, progressing Assessment/Plan Seroquel 25mg po bid Seroquel 12.5mg prn provided gilberto/Kimmy Geller MD Jul 27, 2018 11:11
[2018-07-27 12:00] VITALS: BP 137/73
--- NOTE | 2018-07-27 12:03 | Consultation ---
Consult Note Assessment/Plan DICT # [id number] Foreign Parekh MD Jul 27, 2018 12:03
[2018-07-27] MEDS: D5 1/2NS w/KCl 40meq 1000ml 1,000 ML IV SCH (12:53)
--- NOTE | 2018-07-27 15:41 | Diagnostic Imaging Report ---
Indication: Abdominal pain, abnormal renal function Technique: Neri-scale and duplex images of the upper abdomen were obtained. Doppler interrogation of the hepatic vessels Comparison: none Findings: Exam is somewhat limited; patient was difficult to scan due to patient body habitus and suboptimal cooperation Gallbladder is unremarkable, without stones, wall thickening, nor pericholecystic fluid. Sonographic Lee's sign is negative. Common bile duct measures for mm in diameter. No intrahepatic biliary ductal dilatation. Liver demonstrates normal echogenicity, no focal abnormality. However, the left hepatic lobe is not well demonstrated Portal vein and hepatic veins are patent. Pancreas is unremarkable. Spleen is unremarkable. Left kidney measures 8.8 cm in length. Right kidney measures 10.3 cm length. Both kidneys demonstrate normal echogenicity. Left kidney demonstrates mild hydronephrosis echogenic shadowing foci are seen in the left kidney . Non-aneurysmal abdominal aorta . Layering debris is seen dependently within the bladder Impression: Somewhat limited exam, as described Mild left hydronephrosis. Possible left renal calyceal calculi. Consider CT for better characterization if clinically indicated Negative for gallstones or dilated ducts Debris noted within the bladder Note inability to visualize portions of the left hepatic lobe
--- NOTE | 2018-07-27 15:52 | Cardiology Report ---
APPROVED REPORT EXAM: Two-dimensional and M-mode echocardiogram with Doppler and color Doppler. INDICATION OTHER M-Mode DIMENSIONS IVSd1.4 (0.7-1.1cm)Left Atrium (MM)2.0 (1.6-4.0cm) LVDd4.1 (3.5-5.6cm)Aortic Root3.6 (2.0-3.7cm) PWd1.6 (0.7-1.1cm)Aortic Cusp Exc.1.6 (1.5-2.0cm) IVSs1.4 cm LVDs2.9 (2.5-4.0cm) PWs1.8 cm Normal left ventricular chamber size, hyper dynamic systolic function and wall motion to extent visualized. Left ventricular ejection fraction estimated to be 65-70 %. No evidence of left ventricular hypertrophy. No evidence of pericardial effusion. All other cardiac chamber sizes are within normal limits. Focal aortic valve sclerosis with adequate cusp excursion. Mildly Thickened mitral valve leaflets with normal excursion. Mildly Mitral annulus and aortic root calcification. Pulmonic valve not well visualized. Normal tricuspid valve structure. . IVC at normal size with decrease physiologic collapse suggestive of increased RA pressure. A color flow and spectral Doppler study was performed and revealed: Mild aortic regurgitation. Trace mitral regurgitation. Normal left ventricular diastolic function . Mild tricuspid regurgitation. Tricuspid systolic velocities suggests peak right ventricular systolic pressure of 38 mmHg,consistent with mild pulmonary hypertension .
--- NOTE | 2018-07-27 15:59 | Cardiology Report ---
APPROVED REPORT EKG Measurement Heart [id number] Sinus tachycardia Abnormal ECG
[2018-07-27 16:00] VITALS: BP 143/80
--- NOTE | 2018-07-27 16:13 | Cardiology Report ---
APPROVED REPORT EKG Measurement Heart [id number] Sin[address] Nonspecific ST and T wave abnormality Abnormal ECG
[2018-07-27 20:00] VITALS: BP 126/68
[2018-07-27] MEDS: 1/2NS w/KCl 20mEq 1000ml 1,000 ML IV SCH (20:56)
--- NOTE | 2018-07-27 21:00 | Progress Note ---
DATE: 07/27/2018 SUBJECTIVE: The patient continues to be agitated. Pulled out the IV. She was placed in self restraints. The patient is not following direction. The patient is confused and disorganized. The patient is delusional. The patient has memory impairment. MENTAL STATUS EXAMINATION: The patient is confused and disoriented. Mood is agitated. Affect is constricted, congruent with mood. Thought process is concrete and disorganized. Memory is impaired. Insight and judgment non-existent. ASSESSMENT: 1. Dementia with behavioral disturbance. 2. Encephalopathy due to toxic or metabolic disorder. PLAN: 1. We will continue the patient on Seroquel 25 mg b.i.d., which she was on it before admission. 2. We will continue the Seroquel p.r.n. Kimmy Chavez M.D. DR: MATTIE JOB#: [id number] CC:
--- NOTE | 2018-07-27 21:04 | Nephrology Progress Note ---
Assessment/Plan Problem List: (1) UTI (urinary tract infection) (2) Dehydration (3) Hypernatremia (4) Hypokalemia (5) Malnutrition Assessment Dehydration- Hypernatremia DM OOC Anemia UTI Malnutrition /2 NS KCL Labs in am Per consultants Plan 2 NS KCL Labs in am Per consultants Subjective ROS Limited/Unobtainable: No Constitutional: Reports: malaise Objective Objective Last 24 Hour Vital Signs Date Time Temp Pulse Resp B/P (MAP) Pulse Ox O2 Delivery O2 Flow Rate FiO2 07/27/18 16:00 97.8 116 20 143/80 (101) 98 97.8 07/27/18 16:00 117 07/27/18 12:00 97.2 120 19 137/73 (94) 98 97.2 07/27/18 12:00 122 07/27/18 09:04 Room Air 07/27/18 08:00 97.6 109 19 133/80 (97) 98 97.6 07/27/18 08:00 111 07/27/18 04:00 124 07/27/18 04:00 97.2 124 21 112/95 (101) 93 97.2 07/27/18 00:00 119 07/27/18 00:00 97.2 121 20 107/77 (87) 100 97.2 Intake and Output 07/26/18 07/27/18 19:00 07:00 Intake Total 437.5 ml 786.82 ml Balance 437.5 ml 786.82 ml Intake Oral 320 ml IV Total 117.5 ml 786.82 ml # Voids 1 2 Laboratory Tests 07/26/18 22:09: Arterial Blood pH 7.458H, Arterial Blood Partial Pressure CO2 41.4, Arterial Blood Partial Pressure O2 66.1L, Arterial Blood HCO3 28.7H, Arterial Blood Oxygen Saturation 92.9L, Arterial Blood Base Excess 4.4H, Renny Test Positive 07/26/18 23:10: Activated Partial Thromboplast Time 23, D-Dimer 18.29H, Troponin I 0.044 07/27/18 08:15: Activated Partial Thromboplast Time 46H, White Blood Count 15.5#H, Red Blood Count 3.99L, Hemoglobin 12.0, Hematocrit 36.2L, Mean Corpuscular Volume 91, Mean Corpuscular Hemoglobin 30.0, Mean Corpuscular Hemoglobin Concent 33.1, Red Cell Distribution Width 13.6, Platelet Count 84L, Mean Platelet Volume 9.0, Neutrophils (%) (Auto) , Lymphocytes (%) (Auto) , Monocytes (%) (Auto) , Eosinophils (%) (Auto) , Basophils (%) (Auto) , Differential Total Cells Counted 100, Neutrophils % (Manual) 91H, Lymphocytes % (Manual) 7L, Monocytes % (Manual) 2, Eosinophils % (Manual) 0, Basophils % (Manual) 0, Band Neutrophils 0 , Platelet Estimate DecreasedL, Platelet Morphology Normal, Red Blood Cell Morphology Normal, Reticulocyte Count 2.3H, Fibrinogen 375, Sodium Level 152H, Potassium Level 2.9L, Chloride Level 117H, Carbon Dioxide Level 27, Anion Gap 8 , Blood Urea Nitrogen 35H, Creatinine 1.2, Estimat Glomerular Filtration Rate , Glucose Level 213H, Uric Acid 5.1, Calcium Level 9.3, Phosphorus Level 2.7, Magnesium Level 2.1, Iron Level 23L, Total Iron Binding Capacity 142L, Percent Iron Saturation 16, Unsaturated Iron Binding 119, Ferritin 547H, Total Bilirubin 0.8, Aspartate Amino Transf (AST/SGOT) 18, Alanine Aminotransferase ( ALT/SGPT) 17, Alkaline Phosphatase 95, Total Protein 7.4, Albumin 2.5L, Globulin 4.9, Albumin/Globulin Ratio 0.5L, Vitamin B12 Level 1873H, Folate 34.8 , Thyroid Stimulating Hormone (TSH) 1.577, Free Thyroxine 1.37, HIV (1&2) Antibody Rapid Negative 07/27/18 12:15: Sickle Cell Screen [Pending], Haptoglobin [Pending], Carcinoembryonic Antigen [ Pending], Hepatitis A IgM Antibody [Pending], Hepatitis B Surface Antigen [ Pending], Hepatitis B Core IgM Antibody [Pending], Hepatitis C Antibody [Pending ] 07/27/18 15:53: Activated Partial Thromboplast Time 117H Height (Feet): 5 Height (Inches): 2.00 Weight (Pounds): 102 General Appearance: no apparent distress Cardiovascular: tachycardia Respiratory/Chest: decreased breath sounds Abdomen: soft Parvez Bergman MD Jul 27, 2018 21:04
--- NOTE | 2018-07-27 21:45 | Consultation ---
DATE OF CONSULTATION: 07/27/2018 PULMONARY CONSULTATION CONSULTING PHYSICIAN: Foreign Parekh M.D. REFERRING PHYSICIAN: Yi Asencio M.D. REASON FOR CONSULTATION: DVT. HISTORY OF PRESENT ILLNESS: The patient is a 78-year-old female, halfway resident with a presumed history of hypertension, hyperlipidemia, and possible dementia, who was brought into the ER with fever, tachycardia, systemic inflammatory response syndrome, and possible urosepsis. She has gram-negative bacillus UTI. Chest x-ray done in the emergency department showed some atelectasis versus infiltrate in the left infrahilum. She has duplex of the lower extremities that was done, which showed rather extensive acute DVT in the superficial femoral vein on the left. The patient's history is not completely known, but she does have thrombocytopenia. We started her on heparin; nonetheless, given the finding of rather extensive clot. PAST MEDICAL HISTORY: Presumed dementia, hypertension, hyperlipidemia, and anemia. PAST SURGICAL HISTORY: Unknown. ALLERGIES: No known drug allergies. MEDICATIONS: Prior to admission, medications reviewed. SOCIAL HISTORY: She is a halfway resident. Family denies any tobacco, alcohol, or drug use. FAMILY HISTORY: Noncontributory. REVIEW OF SYSTEMS: Unobtainable. PHYSICAL EXAMINATION: VITAL SIGNS: Temperature is 97.2, pulse 124, blood pressure 112/95, respiratory rate 21, and saturating 98% on room air. GENERAL: She is an elderly demented female, in no acute distress. HEENT: Normocephalic and atraumatic. Oropharynx is clear with moist mucous membranes. NECK: Supple without lymphadenopathy or JVD. CHEST: Clear. HEART: regular, but tachycardic. ABDOMEN: Benign. EXTREMITIES: No cyanosis, clubbing, or edema. ANCILLARY DATA: White count 15.5, hemoglobin 12, and platelet count 84,000. ABG, 7.45/41/66/28/92. D-dimer 18.29. Sodium 150, potassium 2.9, chloride 117, bicarbonate 27, BUN 35, creatinine 1.2, and glucose 213. LFTs normal. Albumin 2.5, globulin 4.9, B12 1873, and folate 34.8. TSH 1.57 and T4 1.37. Urinalysis, 5+ blood, 2+ protein, 3+ leukocyte esterase, the tincture of white, and many bacteria. Serologies pending. Micro, gram-negative bacillus in the urine. Imaging, chest x-ray reviewed by myself shows atelectasis in the left infrahilar region. No other findings. Duplex of the lower extremities shows extensive left superficial femoral vein DVT. ASSESSMENT: The patient is a 78-year-old female, halfway resident with a presumed history of dementia, hypertension, and hyperlipidemia, presenting with a systemic inflammatory response syndrome, gram-negative bacillus UTI, and acute left superficial vein DVT with likely pulmonary embolism as well. PROBLEM LIST: 1. Extensive left superficial vein DVT (this is a deep vein). 2. Likely pulmonary embolism as well. 3. Hypoxemia. 4. Gram-negative bacillus UTI. 5. Hypernatremia and hypokalemia. 6. Protein-calorie malnutrition. 7. Likely underlying dementia versus encephalopathy. 8. Hypertension. 9. Hyperlipidemia. 10. Thrombocytopenia. 11. Normocytic anemia. TREATMENT PLAN: 1. Given the patient will require anticoagulation for DVT, I would not workup PE any further. 2. We will follow up echocardiogram. 3. Continue heparin drip. 4. Agree with Hematology, would continue unless platelets less than 50,000. 5. Unable to anticoagulate. We will need an IVC filter. 6. Workup of hypercoagulable state and thrombocytopenia per Dr. Gayle. 7. Continue antibiotics for urinary tract infection. 8. IV fluids replete free water and potassium per Renal. 9. Monitor volumes. 10. The patient is a Full Code. 11. Continue to discuss goals of care. Dr. Asencio, thank you for allowing me to assist in the care of your patient. If I may be of any assistance, please do not hesitate to ask. Foreign Parekh M.D. DR: PORTILLO JOB#: [id number] CC:
--- NOTE | 2018-07-27 23:15 | History and Physical Report ---
DATE OF ADMISSION: 07/26/2018 HISTORY OF PRESENT ILLNESS: The patient is very demented, poor historian, cannot get any reliable history from the patient. The patient is very demented and confused, requiring self restraints because he keeps pulling out the IV. The patient was admitted for UTI, sepsis, as well as hypernatremia and hypokalemia. The patient found to have acute DVT and admitted also to rule out sepsis, cannot get any history from the patient, has dementia, comes from a facility. PAST MEDICAL HISTORY: Organic brain syndrome, hypertension, hyperlipidemia, anxiety, agitation, psychosis, constipation. PAST SURGICAL HISTORY: Unable to obtain. MEDICATIONS: Amlodipine, Norvasc, Klonopin, Lipitor, multivitamin, potassium, Seroquel, Senokot. ALLERGIES: No known drug allergies. FAMILY HISTORY: Unable to obtain. SOCIAL HISTORY: Unable to obtain. REVIEW OF SYSTEMS: Unable to obtain, very poor historian. PHYSICAL EXAMINATION: VITAL SIGNS: Temperature 97.3, pulse is 108, blood pressure 95/55. HEENT: PERRLA. NECK: Supple. No lymphadenopathy. CHEST: Clear to auscultation. GASTROINTESTINAL: Soft, nontender, nondistended. No organomegaly. EXTREMITIES: No edema. Reflexes on both sides. NEUROLOGIC: Does not follow neurologic exam. Oriented to name. The patient is on soft restraints. LABORATORY DATA: WBC of 9.4, hemoglobin 11.6, and platelets of 76. Sodium 153, potassium 3.9, chloride 117, BUN of 35, creatinine 1.2, and glucose of 213. ASSESSMENT AND PLAN: Rule out UTI, sepsis, hypernatremia, severe hypokalemia, elevated blood sugar, azotemia, dehydration, pulling out IVs, confused. The patient also has acute DVT. I have asked Dr. Dewayne Gayle, Dr. Parekh, Dr. Argueta, Dr. Shimon Card, and Dr. Bergman to see the patient for the above-mentioned diagnoses and treatment. Antibiotics per Dr. Shimon Card. Yi Asencio M.D. DR: Adolfo JOB#: [id number] CC:
[2018-07-28] VITALS: BP 122/68
--- NOTE | 2018-07-28 00:45 | Consultation ---
DATE OF CONSULTATION: 07/27/2018 INFECTIOUS DISEASES CONSULTATION CONSULTING PHYSICIAN: Shimon Card M.D. PRIMARY ATTENDING PHYSICIAN: Yi Asencio M.D. REASON FOR CONSULTATION: Sepsis, UTI, pneumonia. HISTORY OF PRESENT ILLNESS: The patient is a 78-year-old [place] retirement resident admitted yesterday with fever and tachycardia. The patient had a temperature of 101.8 at the time of admission, had tachycardia with heart rate of 126, platelets are very low, positive leukocytosis. The patient is not the source of history, has dementia, is confused and on restraints. 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 MEDICATIONS: Seroquel, heparin, aspirin, Zosyn, , ceftriaxone, Tylenol, insulin. SOCIAL HISTORY: long-term resident. Has 2 children. No history of alcohol, drug abuse, or smoking. No other history obtainable. The patient mostly bedbound and wheelchair bound. According to family, she is confused. PHYSICAL EXAMINATION: VITAL SIGNS: Temperature 97.2, pulse 120, blood pressure 137/73. GENERAL APPEARANCE: Seems to be thin. HEENT: Head and neck, normocephalic. Moist mucous membranes. HEART: Tachycardic. LUNGS: Clear. ABDOMEN: Soft and nontender. EXTREMITIES: No edema. NEUROLOGIC: He is on restraint. LABORATORY AND DIAGNOSTIC DATA: Sodium 152, potassium 2.9, BUN 35, creatinine 1.2, glucose 213. WBC 15.5, hemoglobin 12, hematocrit 36.2, platelets 84. Urine culture growing gram-negative rods. UA showed wbc's too numerous to count, rbc's 10 to 15, leukocyte esterase 2+. Chest x-ray showed left infrahilar atelectasis or infiltrate. Venous duplex showed acute DVT in the left superficial femoral vein. IMPRESSION: 1. Sepsis with fever. 2. Leukocytosis. 3. Tachycardia. 4. Source of sepsis seems to be UTI. Urine culture growing gram-negative rods, may also have pneumonia and atelectasis. 5. DVT of the left leg. 6. Anemia. 7. Thrombocytopenia. 8. Diabetes mellitus type 2. 9. Electrolyte imbalance with hypernatremia and hypokalemia. RECOMMENDATION: We will continue with Zosyn. Discontinue Rocephin. We will follow up the cultures. At the end of my exam, I thank Dr. Asencio for involving me in the care of this patient. Shimon Card M.D. DR: Henrietta JOB#: [id number] CC:
[2018-07-28 04:00] VITALS: BP 121/78
[2018-07-28] MEDS: Piperacillin/Tazobactam 3.375 GM in D5W 110 ML IVPB SCH ×3 (04:18→20:39)
[2018-07-28] MEDS: NovoLOG Insulin Flexpen SUBQ SCH ×4 (06:04→21:00)
[2018-07-28 08:00] VITALS: BP 123/77
[2018-07-28 08:24] LABS: ANION GAP 9 mmol/L (5-15); BLOOD UREA NITROGEN 32 mg/dL (7-18); CARBON DIOXIDE 29 MMOL/L (21-32); CHLORIDE 117 MMOL/L (98-107); CREATININE 1.2 MG/DL (0.55-1.30); SODIUM 154 MMOL/L (136-145)
[2018-07-28 08:32] LABS: ALANINE AMINOTRANSFERASE 22 U/L (12-78); ALBUMIN 2.3 G/DL (3.4-5.0); ALKALINE PHOSPHATASE 82 U/L (46-116); ASPARTATE AMINO TRANSFERASE 19 U/L (15-37); BILIRUBIN,DIRECT 0.2 MG/DL (0.0-0.3); BILIRUBIN,TOTAL 0.6 MG/DL (0.2-1.0); PHOSPHORUS 2.5 MG/DL (2.5-4.9)
[2018-07-28] MEDS: Aspirin EC 81mg tab ORAL SCH (08:39)
[2018-07-28 09:48] LABS: HEMATOCRIT 33.4 % (37.0-47.0); HEMOGLOBIN 10.9 G/DL (12.0-16.0); MEAN CORPUSCULAR VOLUME 90 FL (80-99); PLATELET COUNT 59 K/UL (150-450); RED CELL DISTRIBUTION WIDTH 13.5 % (11.6-14.8); WHITE BLOOD COUNT 6.3 K/UL (4.8-10.8)
[2018-07-28] MEDS ORDERED: Heparin 25,000u/D5W 500ml 500 ML IV SCH ×3 (10:30→17:30)
[2018-07-28] MEDS ORDERED: Vancomycin 1gm/D5W 275ml IVPB ONE ×2 (10:30)
[2018-07-28] MEDS ORDERED: Heparin 5000 units/ml inj IV SCH ×2 (10:30→17:30)
[2018-07-28] MEDS: Vancomycin 750mg/NS 250ml IVPB SCH ×2 (11:05→11:06)
--- NOTE | 2018-07-28 11:16 | GI Progress Note ---
Assessment/Plan Problems: (1) UTI (urinary tract infection) ICD Codes: N39.0 - Urinary tract infection, site not specified SNOMED: 69607486 (2) Sepsis ICD Codes: A41.9 - Sepsis, unspecified organism SNOMED: 91777212 (3) Dehydration ICD Codes: E86.0 - Dehydration SNOMED: 70499287 (4) Malnutrition ICD Codes: E46 - Unspecified protein-calorie malnutrition SNOMED: 94209404 (5) Dementia with behavioral disturbance ICD Codes: F03.91 - Unspecified dementia with behavioral disturbance SNOMED: 8230770984748 Status: stable Status Narrative Discussed with Dr. Argueta. Assessment/Plan abdominal U/S reviewed >> normal liver echogenicity ST evaluation passed on puree push PO PEG if needed to meet nutritional requirements >> fu calorie count prn transfusions ppi abx zofran prn fu labs The patient was seen and examined at bedside and all new and available data was reviewed in the patients chart. I agree with the above findings, impression and plan. (Patient seen earlier today. Signature stamp does not reflect patient encounter time.). - Edwardo Argueta MD Subjective Gastrointestinal/Abdominal: Reports: no symptoms Objective Last 24 Hour Vital Signs Date Time Temp Pulse Resp B/P (MAP) Pulse Ox O2 Delivery O2 Flow Rate FiO2 07/28/18 09:00 Room Air 07/28/18 08:00 97.7 113 18 123/77 (92) 99 97.7 07/28/18 04:00 97.2 100 20 121/78 (92) 97 97.2 07/28/18 04:00 106 07/28/18 00:00 97.0 113 20 122/68 (86) 98 97.0 07/28/18 00:00 113 07/27/18 21:00 Room Air 07/27/18 20:00 97.0 110 19 126/68 (87) 97 97.0 07/27/18 20:00 110 07/27/18 16:00 97.8 116 20 143/80 (101) 98 97.8 07/27/18 16:00 117 07/27/18 12:00 97.2 120 19 137/73 (94) 98 97.2 07/27/18 12:00 122 Intake and Output 07/27/18 07/28/18 19:00 07:00 Intake Total 118.68 ml Balance 118.68 ml IV Total 118.68 ml # Voids 2 2 # Bowel Movements 1 Laboratory Tests Test 07/27/18 12:15 07/27/18 15:53 07/27/18 23:05 07/28/18 02:30 Sickle Cell Screen Pending Haptoglobin Pending Carcinoembryonic Antigen 3.5 ng/mL (0.0-4.7) Hepatitis A IgM Antibody Negative (Negative) Hepatitis B Surface Antigen Negative (Negative) Hepatitis B Core IgM Antibody Negative (Negative) Hepatitis C Antibody 0.2 s/co ratio (0.0-0.9) Activated Partial Thromboplast Time 117 SEC (23-33) H 98 SEC (23-33) H Stool Occult Blood Pending Test 07/28/18 07:35 07/28/18 08:50 Sodium Level 154 MMOL/L (136-145) H Potassium Level 3.0 MMOL/L (3.5-5.1) L Chloride Level 117 MMOL/L (98-107) H Carbon Dioxide Level 29 MMOL/L (21-32) Anion Gap 9 mmol/L (5-15) Blood Urea Nitrogen 32 mg/dL (7-18) H Creatinine 1.2 MG/DL (0.55-1.30) Estimat Glomerular Filtration Rate mL/min (>60) Glucose Level 167 MG/DL (74-106) H Calcium Level 9.0 MG/DL (8.5-10.1) Phosphorus Level 2.5 MG/DL (2.5-4.9) Magnesium Level 1.9 MG/DL (1.8-2.4) Total Bilirubin 0.6 MG/DL (0.2-1.0) Direct Bilirubin 0.2 MG/DL (0.0-0.3) Aspartate Amino Transf (AST/SGOT) 19 U/L (15-37) Alanine Aminotransferase (ALT/SGPT) 22 U/L (12-78) Alkaline Phosphatase 82 U/L (46-116) Total Protein 6.1 G/DL (6.4-8.2) L Albumin 2.3 G/DL (3.4-5.0) L White Blood Count 6.3 K/UL (4.8-10.8) # Red Blood Count 3.70 M/UL (4.20-5.40) L Hemoglobin 10.9 G/DL (12.0-16.0) L Hematocrit 33.4 % (37.0-47.0) L Mean Corpuscular Volume 90 FL (80-99) Mean Corpuscular Hemoglobin 29.5 PG (27.0-31.0) Mean Corpuscular Hemoglobin Concent 32.7 G/DL (32.0-36.0) Red Cell Distribution Width 13.5 % (11.6-14.8) Platelet Count 59 K/UL (150-450) L Mean Platelet Volume 9.8 FL (6.5-10.1) Neutrophils (%) (Auto) % (45.0-75.0) Lymphocytes (%) (Auto) % (20.0-45.0) Monocytes (%) (Auto) % (1.0-10.0) Eosinophils (%) (Auto) % (0.0-3.0) Basophils (%) (Auto) % (0.0-2.0) Differential Total Cells Counted 100 Neutrophils % (Manual) 83 % (45-75) H Lymphocytes % (Manual) 9 % (20-45) L Monocytes % (Manual) 6 % (1-10) Eosinophils % (Manual) 1 % (0-3) Basophils % (Manual) 0 % (0-2) Band Neutrophils 1 % (0-8) Nucleated Red Blood Cells 1 /100 WBC Platelet Estimate Decreased L Platelet Morphology Normal Activated Partial Thromboplast Time 24 SEC (23-33) Height (Feet): 5 Height (Inches): 2.00 Weight (Pounds): 102 General Appearance: WD/WN, no apparent distress, alert Cardiovascular: normal rate Respiratory/Chest: normal breath sounds, no respiratory distress Abdominal Exam: normal bowel sounds, non tender, soft Extremities: normal range of motion, non-tender Aidee Powell NP Jul 28, 2018 11:16
--- NOTE | 2018-07-28 11:21 | Infectious Diseases Prog Note ---
Assessment/Plan Assessment/Plan A; Sepsis/ SIRS Bacteremia UTI DVT of left leg, ? PE DM type 2 Anemia Thrombocytopenia P; Continue Zosyn & Vancomycin Will f/u cultures Subjective ROS Limited/Unobtainable: Yes Constitutional: Reports: anorexia Neurologic: Reports: confusion, other - on restraint Allergies: Coded Allergies: No Known Allergies (Unverified , 07/26/18) Objective Vital Signs Last 24 Hour Vital Signs Date Time Temp Pulse Resp B/P (MAP) Pulse Ox O2 Delivery O2 Flow Rate FiO2 07/28/18 09:00 Room Air 07/28/18 08:00 97.7 113 18 123/77 (92) 99 97.7 07/28/18 04:00 97.2 100 20 121/78 (92) 97 97.2 07/28/18 04:00 106 07/28/18 00:00 97.0 113 20 122/68 (86) 98 97.0 07/28/18 00:00 113 07/27/18 21:00 Room Air 07/27/18 20:00 97.0 110 19 126/68 (87) 97 97.0 07/27/18 20:00 110 07/27/18 16:00 97.8 116 20 143/80 (101) 98 97.8 07/27/18 16:00 117 07/27/18 12:00 97.2 120 19 137/73 (94) 98 97.2 07/27/18 12:00 122 Height (Feet): 5 Height (Inches): 2.00 Weight (Pounds): 102 General Appearance: no acute distress HEENT: mucous membranes moist Respiratory/Chest: lungs clear Cardiovascular: tachycardia Abdomen: soft, non tender Extremities: no edema Neurologic/Psychiatric: alert, other - oriented X 1 Microbiology Date/Time Source Procedure Growth Status 07/26/18 11:20 Blood Blood Culture - Preliminary Resulted 07/26/18 11:05 Blood Blood Culture - Preliminary NO GROWTH AFTER 24 HOURS Resulted 07/26/18 11:05 Nasal Nares MRSA Culture - Final NO METHICILLIN RESISTANT STAPH AUREUS... Complete 07/26/18 11:25 Urine,Clean Catch Urine Culture - Preliminary Gram Negative Bacillus 1 Resulted 07/26/18 11:05 Rectum - Final NO CARBAPENEM-RESISTANT ENTEROBACTERI... Complete 07/26/18 11:05 Rectum VRE Culture - Final NO VANCOMYCIN RESISTANT ENTEROCOCCUS ... Complete Laboratory Tests Test 07/27/18 12:15 07/27/18 15:53 07/27/18 23:05 07/28/18 02:30 Sickle Cell Screen Pending Haptoglobin Pending Carcinoembryonic Antigen 3.5 ng/mL (0.0-4.7) Hepatitis A IgM Antibody Negative (Negative) Hepatitis B Surface Antigen Negative (Negative) Hepatitis B Core IgM Antibody Negative (Negative) Hepatitis C Antibody 0.2 s/co ratio (0.0-0.9) Activated Partial Thromboplast Time 117 SEC (23-33) H 98 SEC (23-33) H Stool Occult Blood Pending Test 07/28/18 07:35 07/28/18 08:50 Sodium Level 154 MMOL/L (136-145) H Potassium Level 3.0 MMOL/L (3.5-5.1) L Chloride Level 117 MMOL/L (98-107) H Carbon Dioxide Level 29 MMOL/L (21-32) Anion Gap 9 mmol/L (5-15) Blood Urea Nitrogen 32 mg/dL (7-18) H Creatinine 1.2 MG/DL (0.55-1.30) Estimat Glomerular Filtration Rate mL/min (>60) Glucose Level 167 MG/DL (74-106) H Calcium Level 9.0 MG/DL (8.5-10.1) Phosphorus Level 2.5 MG/DL (2.5-4.9) Magnesium Level 1.9 MG/DL (1.8-2.4) Total Bilirubin 0.6 MG/DL (0.2-1.0) Direct Bilirubin 0.2 MG/DL (0.0-0.3) Aspartate Amino Transf (AST/SGOT) 19 U/L (15-37) Alanine Aminotransferase (ALT/SGPT) 22 U/L (12-78) Alkaline Phosphatase 82 U/L (46-116) Total Protein 6.1 G/DL (6.4-8.2) L Albumin 2.3 G/DL (3.4-5.0) L White Blood Count 6.3 K/UL (4.8-10.8) # Red Blood Count 3.70 M/UL (4.20-5.40) L Hemoglobin 10.9 G/DL (12.0-16.0) L Hematocrit 33.4 % (37.0-47.0) L Mean Corpuscular Volume 90 FL (80-99) Mean Corpuscular Hemoglobin 29.5 PG (27.0-31.0) Mean Corpuscular Hemoglobin Concent 32.7 G/DL (32.0-36.0) Red Cell Distribution Width 13.5 % (11.6-14.8) Platelet Count 59 K/UL (150-450) L Mean Platelet Volume 9.8 FL (6.5-10.1) Neutrophils (%) (Auto) % (45.0-75.0) Lymphocytes (%) (Auto) % (20.0-45.0) Monocytes (%) (Auto) % (1.0-10.0) Eosinophils (%) (Auto) % (0.0-3.0) Basophils (%) (Auto) % (0.0-2.0) Differential Total Cells Counted 100 Neutrophils % (Manual) 83 % (45-75) H Lymphocytes % (Manual) 9 % (20-45) L Monocytes % (Manual) 6 % (1-10) Eosinophils % (Manual) 1 % (0-3) Basophils % (Manual) 0 % (0-2) Band Neutrophils 1 % (0-8) Nucleated Red Blood Cells 1 /100 WBC Platelet Estimate Decreased L Platelet Morphology Normal Activated Partial Thromboplast Time 24 SEC (23-33) Current Medications Medications (Trade) Dose Ordered Sig/Laure Route PRN Reason Start Time Stop Time Status Last Admin Dose Admin Acetaminophen (Tylenol) 650 mg Q4H PRN ORAL Fever/Headache/Mild Pain 07/26/18 16:45 08/25/18 16:44 Aspirin (Ecotrin) 81 mg DAILY ORAL 07/27/18 09:00 08/26/18 08:59 07/28/18 08:39 Dextrose (Dextrose 50%) 25 ml Q30M PRN IV Hypoglycemia 07/26/18 15:15 08/25/18 15:14 Dextrose (Dextrose 50%) 50 ml Q30M PRN IV Hypoglycemia 07/26/18 15:15 08/25/18 15:14 Famotidine (Pepcid) 20 mg BID ORAL 07/26/18 18:00 08/25/18 17:59 07/28/18 08:39 Heparin Sodium/ Dextrose 500 ml @ 15.64 mls/ hr ADJUST PER PROTOCOL IV 07/28/18 10:45 08/27/18 10:44 07/28/18 11:11 Insulin Aspart (NovoLOG) BEFORE MEALS AND HS SUBQ 07/26/18 16:30 08/25/18 16:29 07/28/18 06:04 Piperacillin Sod/ Tazobactam Sod 3.375 gm/Dextrose 110 ml @ 27.5 mls/hr Q8H IVPB 07/26/18 20:00 08/02/18 19:59 07/28/18 04:18 Potassium Chloride (K-Dur) 40 meq DAILY ORAL 07/28/18 09:00 08/27/18 08:59 07/28/18 08:39 Potassium Chloride (K-Dur) 40 meq ONCE ORAL 07/28/18 15:00 07/28/18 16:00 Quetiapine Fumarate (SEROquel) 12.5 mg Q4H PRN ORAL agitation 07/27/18 11:15 08/26/18 11:14 Quetiapine Fumarate (SEROquel) 25 mg Q12HR ORAL 07/27/18 10:40 08/26/18 10:39 07/28/18 08:39 Sodium 1,000 ml @ 50 mls/hr Q20H IV 07/27/18 21:00 08/26/18 20:59 07/27/18 20:56 Vancomycin HCl (Vanco rx to dose) 1 ea DAILY PRN MISC Per rx protocol 07/28/18 09:30 08/27/18 09:29 Vancomycin HCl 1 gm/Dextrose 275 ml @ 183.708 mls/hr ONCE ONCE IVPB 07/28/18 10:30 07/28/18 11:59 Vancomycin/Sodium Chloride 250 ml @ 166.667 mls/hr Q24H IVPB 07/29/18 11:00 08/03/18 10:59 07/28/18 11:06 Shimon Card MD Jul 28, 2018 11:21
[2018-07-28] MEDS ORDERED: Flu Vaccine (Alfuria) for Pts Less than 65 Years old IM ONE (11:30)
[2018-07-28 12:00] VITALS: BP 112/72
--- NOTE | 2018-07-28 13:31 | General Progress Note ---
Assessment/Plan Status: stable Assessment/Plan # DVT of the left leg -- superifcial femoral vein, new onset, has not had these symptoms before --> Cont on heparin gtt --> monitor platelet count closely --> appreciate Dr. Parekh recs --> if >50k, okay to continue anticoag, however if drops consider ivc filter # Thrombocytopenia --> unknown cause, first time here at [employer], do not have baseline, could be reactive --> Cont to monitor plt count for improvement --> US abd: Mild left hydronephrosis. Possible left renal calyceal calculi. Negative for gallstones or dilated ducts Debris noted within the bladder --> Hep panel and HIV are both negative --> may consider bone marrow biopsy given persistent but can do as outpatient # Anemia of chronic disease --> Hgb goal above 7. # Dehydration # DM OOC --> A1C goal less than 7 --> Cont on insulin # UTI. --> ID is following. Appreciate recs. --> Pt on IV abx. --> Cultures - gram negative bacillus Greatly appreciate consultation! Subjective Date patient seen: Jul 28, 2018 Hematologic/Lymphatic: Reports: anemia Allergies: Coded Allergies: No Known Allergies (Unverified , 07/26/18) All Systems: reviewed and negative except above Subjective Pt resting in bed. No acute events. Afebrile. Objective Last 24 Hour Vital Signs Date Time Temp Pulse Resp B/P (MAP) Pulse Ox O2 Delivery O2 Flow Rate FiO2 07/28/18 12:00 97.9 110 22 112/72 (85) 97 97.9 07/28/18 09:00 Room Air 07/28/18 08:00 97.7 113 18 123/77 (92) 99 97.7 07/28/18 04:00 97.2 100 20 121/78 (92) 97 97.2 07/28/18 04:00 106 07/28/18 00:00 97.0 113 20 122/68 (86) 98 97.0 07/28/18 00:00 113 07/27/18 21:00 Room Air 07/27/18 20:00 97.0 110 19 126/68 (87) 97 97.0 07/27/18 20:00 110 07/27/18 16:00 97.8 116 20 143/80 (101) 98 97.8 07/27/18 16:00 117 Intake and Output 07/27/18 07/28/18 19:00 07:00 Intake Total 118.68 ml Balance 118.68 ml IV Total 118.68 ml # Voids 2 2 # Bowel Movements 1 Laboratory Tests 07/27/18 15:53: Activated Partial Thromboplast Time 117H 07/27/18 23:05: Activated Partial Thromboplast Time 98H 07/28/18 02:30: Stool Occult Blood Negative 07/28/18 07:35: Sodium Level 154H, Potassium Level 3.0L, Chloride Level 117H, Carbon Dioxide Level 29, Anion Gap 9, Blood Urea Nitrogen 32H, Creatinine 1.2, Estimat Glomerular Filtration Rate , Glucose Level 167H, Calcium Level 9.0, Phosphorus Level 2.5, Magnesium Level 1.9, Total Bilirubin 0.6, Direct Bilirubin 0.2, Aspartate Amino Transf (AST/SGOT) 19, Alanine Aminotransferase (ALT/SGPT) 22, Alkaline Phosphatase 82, Total Protein 6.1L, Albumin 2.3L 07/28/18 08:50: White Blood Count 6.3#, Red Blood Count 3.70L, Hemoglobin 10.9L, Hematocrit 33.4L, Mean Corpuscular Volume 90, Mean Corpuscular Hemoglobin 29.5, Mean Corpuscular Hemoglobin Concent 32.7, Red Cell Distribution Width 13.5, Platelet Count 59L, Mean Platelet Volume 9.8, Neutrophils (%) (Auto) , Lymphocytes (%) ( Auto) , Monocytes (%) (Auto) , Eosinophils (%) (Auto) , Basophils (%) (Auto) , Differential Total Cells Counted 100, Neutrophils % (Manual) 83H, Lymphocytes % (Manual) 9L, Monocytes % (Manual) 6, Eosinophils % (Manual) 1, Basophils % ( Manual) 0, Band Neutrophils 1, Nucleated Red Blood Cells 1, Platelet Estimate DecreasedL, Platelet Morphology Normal, Activated Partial Thromboplast Time 24 Height (Feet): 5 Height (Inches): 2.00 Weight (Pounds): 102 General Appearance: no apparent distress EENT: PERRL/EOMI Neck: normal alignment Cardiovascular: tachycardia Respiratory/Chest: no respiratory distress Abdomen: soft Dewayne Gayle MD Jul 28, 2018 13:31
[2018-07-28 16:00] VITALS: BP 117/67
[2018-07-28] MEDS: 1/2NS w/KCl 20mEq 1000ml 1,000 ML IV SCH ×2 (17:00→18:37)
--- NOTE | 2018-07-28 18:09 | Nephrology Progress Note ---
Assessment/Plan Problem List: (1) UTI (urinary tract infection) (2) Dehydration (3) Hypernatremia (4) Hypokalemia (5) Malnutrition Assessment Not be receiving iv fluid as ordered due to being uncoaporative Dehydration- Hypernatremia DM OOC Anemia UTI Malnutrition 1/2 NS KCL Labs in am Per consultants Plan 2 NS KCL Labs in am Per consultants Subjective ROS Limited/Unobtainable: No Constitutional: Reports: malaise, weakness Objective Objective Last 24 Hour Vital Signs Date Time Temp Pulse Resp B/P (MAP) Pulse Ox O2 Delivery O2 Flow Rate FiO2 07/28/18 16:00 97.5 101 20 117/67 (84) 95 97.5 07/28/18 16:00 101 07/28/18 12:00 97.9 110 22 112/72 (85) 97 97.9 07/28/18 12:00 106 07/28/18 09:00 Room Air 07/28/18 08:00 97.7 113 18 123/77 (92) 99 97.7 07/28/18 08:00 100 07/28/18 04:00 97.2 100 20 121/78 (92) 97 97.2 07/28/18 04:00 106 07/28/18 00:00 97.0 113 20 122/68 (86) 98 97.0 07/28/18 00:00 113 07/27/18 21:00 Room Air 07/27/18 20:00 97.0 110 19 126/68 (87) 97 97.0 07/27/18 20:00 110 Intake and Output 07/27/18 07/28/18 19:00 07:00 Intake Total 118.68 ml Balance 118.68 ml IV Total 118.68 ml # Voids 2 2 # Bowel Movements 1 Laboratory Tests 07/27/18 23:05: Activated Partial Thromboplast Time 98H 07/28/18 02:30: Stool Occult Blood Negative 07/28/18 07:35: Sodium Level 154H, Potassium Level 3.0L, Chloride Level 117H, Carbon Dioxide Level 29, Anion Gap 9, Blood Urea Nitrogen 32H, Creatinine 1.2, Estimat Glomerular Filtration Rate , Glucose Level 167H, Calcium Level 9.0, Phosphorus Level 2.5, Magnesium Level 1.9, Total Bilirubin 0.6, Direct Bilirubin 0.2, Aspartate Amino Transf (AST/SGOT) 19, Alanine Aminotransferase (ALT/SGPT) 22, Alkaline Phosphatase 82, Total Protein 6.1L, Albumin 2.3L 07/28/18 08:50: Activated Partial Thromboplast Time 24, White Blood Count 6.3#, Red Blood Count 3.70L, Hemoglobin 10.9L, Hematocrit 33.4L, Mean Corpuscular Volume 90, Mean Corpuscular Hemoglobin 29.5, Mean Corpuscular Hemoglobin Concent 32.7, Red Cell Distribution Width 13.5, Platelet Count 59L, Mean Platelet Volume 9.8, Neutrophils (%) (Auto) , Lymphocytes (%) (Auto) , Monocytes (%) (Auto) , Eosinophils (%) (Auto) , Basophils (%) (Auto) , Differential Total Cells Counted 100, Neutrophils % (Manual) 83H, Lymphocytes % (Manual) 9L, Monocytes % (Manual) 6, Eosinophils % (Manual) 1, Basophils % (Manual) 0, Band Neutrophils 1 , Nucleated Red Blood Cells 1, Platelet Estimate DecreasedL, Platelet Morphology Normal 07/28/18 16:40: Activated Partial Thromboplast Time 54H Height (Feet): 5 Height (Inches): 2.00 Weight (Pounds): 102 General Appearance: no apparent distress Objective no change Parvez Bergman MD Jul 28, 2018 18:09
[2018-07-28 20:00] VITALS: BP 128/75
--- NOTE | 2018-07-28 21:53 | General Progress Note ---
Assessment/Plan Problem List: (1) Dementia with behavioral disturbance ICD Codes: F03.91 - Unspecified dementia with behavioral disturbance SNOMED: 3769569776358 (2) Malnutrition ICD Codes: E46 - Unspecified protein-calorie malnutrition SNOMED: 33421094 (3) Sepsis ICD Codes: A41.9 - Sepsis, unspecified organism SNOMED: 01139587 (4) Dehydration ICD Codes: E86.0 - Dehydration SNOMED: 03445380 (5) UTI (urinary tract infection) ICD Codes: N39.0 - Urinary tract infection, site not specified SNOMED: 17773346 Status: progressing Assessment/Plan afebrile sepsis uti abx per id obs agitated reviewed chart and labs Subjective ROS Limited/Unobtainable: Yes Allergies: Coded Allergies: No Known Allergies (Unverified , 07/26/18) Objective Last 24 Hour Vital Signs Date Time Temp Pulse Resp B/P (MAP) Pulse Ox O2 Delivery O2 Flow Rate FiO2 07/28/18 16:00 97.5 101 20 117/67 (84) 95 97.5 07/28/18 16:00 101 07/28/18 12:00 97.9 110 22 112/72 (85) 97 97.9 07/28/18 12:00 106 07/28/18 09:00 Room Air 07/28/18 08:00 97.7 113 18 123/77 (92) 99 97.7 07/28/18 08:00 100 07/28/18 04:00 97.2 100 20 121/78 (92) 97 97.2 07/28/18 04:00 106 07/28/18 00:00 97.0 113 20 122/68 (86) 98 97.0 07/28/18 00:00 113 Intake and Output 07/27/18 07/28/18 19:00 07:00 Intake Total 118.68 ml Balance 118.68 ml IV Total 118.68 ml # Voids 2 2 # Bowel Movements 1 Laboratory Tests 07/27/18 23:05: Activated Partial Thromboplast Time 98H 07/28/18 02:30: Stool Occult Blood Negative 07/28/18 07:35: Sodium Level 154H, Potassium Level 3.0L, Chloride Level 117H, Carbon Dioxide Level 29, Anion Gap 9, Blood Urea Nitrogen 32H, Creatinine 1.2, Estimat Glomerular Filtration Rate , Glucose Level 167H, Calcium Level 9.0, Phosphorus Level 2.5, Magnesium Level 1.9, Total Bilirubin 0.6, Direct Bilirubin 0.2, Aspartate Amino Transf (AST/SGOT) 19, Alanine Aminotransferase (ALT/SGPT) 22, Alkaline Phosphatase 82, Total Protein 6.1L, Albumin 2.3L 07/28/18 08:50: Activated Partial Thromboplast Time 24, White Blood Count 6.3#, Red Blood Count 3.70L, Hemoglobin 10.9L, Hematocrit 33.4L, Mean Corpuscular Volume 90, Mean Corpuscular Hemoglobin 29.5, Mean Corpuscular Hemoglobin Concent 32.7, Red Cell Distribution Width 13.5, Platelet Count 59L, Mean Platelet Volume 9.8, Neutrophils (%) (Auto) , Lymphocytes (%) (Auto) , Monocytes (%) (Auto) , Eosinophils (%) (Auto) , Basophils (%) (Auto) , Differential Total Cells Counted 100, Neutrophils % (Manual) 83H, Lymphocytes % (Manual) 9L, Monocytes % (Manual) 6, Eosinophils % (Manual) 1, Basophils % (Manual) 0, Band Neutrophils 1 , Nucleated Red Blood Cells 1, Platelet Estimate DecreasedL, Platelet Morphology Normal 07/28/18 16:40: Activated Partial Thromboplast Time 54H Height (Feet): 5 Height (Inches): 2.00 Weight (Pounds): 102 Cardiovascular: normal rate Respiratory/Chest: lungs clear Abdomen: soft Yi Asencio MD Jul 28, 2018 21:53
[2018-07-29] VITALS (8 sets, daily range): BP systolic 100–191; BP diastolic 61–89
--- NOTE | 2018-07-29 | Progress Note ---
DATE: 07/28/2018 SUBJECTIVE: The patient is more manageable today. She is less agitated. Continues to be on Seroquel. Has waxing and waning consciousness, disoriented, and confused. MENTAL STATUS EXAMINATION: The patient is confused, disoriented. Mood is agitated. Affect is flat. Thought process, there is a paucity of thought content. Thought content, no suicidal or homicidal ideations. ASSESSMENT: 1. 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 2. Dementia. PLAN: 1. We will continue the Seroquel. 2. Provide reality orientation and supportive therapy. Kimmy Chavez M.D. DR: ROLAND JOB#: [id number] CC:
[2018-07-29] MEDS: Heparin 25,000u/D5W 500ml 500 ML IV SCH (01:32)
[2018-07-29] MEDS: Piperacillin/Tazobactam 3.375 GM in D5W 110 ML IVPB SCH ×2 (04:13→11:40)
[2018-07-29] MEDS: 1/2NS w/KCl 20mEq 1000ml 1,000 ML IV SCH ×3 (04:13→23:38)
[2018-07-29] MEDS: NovoLOG Insulin Flexpen SUBQ SCH ×4 (06:30→21:00)
[2018-07-29] MEDS: Aspirin EC 81mg tab ORAL SCH (08:24)
[2018-07-29 08:34] LABS: HEMATOCRIT 28.9 % (37.0-47.0); HEMOGLOBIN 9.3 G/DL (12.0-16.0); MEAN CORPUSCULAR VOLUME 92 FL (80-99); PLATELET COUNT 48 K/UL (150-450); RED BLOOD COUNT 3.16 M/UL (4.20-5.40); RED CELL DISTRIBUTION WIDTH 14.1 % (11.6-14.8); WHITE BLOOD COUNT 3.3 K/UL (4.8-10.8)
--- NOTE | 2018-07-29 08:56 | Pulmonology Progress Note ---
Assessment/Plan Assessment/Plan ASSESSMENT: The patient is a 78-year-old female, shelter resident with a presumed history of dementia, hypertension, and hyperlipidemia, presenting with a systemic inflammatory response syndrome, gram-negative bacillus UTI, and acute left superficial vein DVT with likely pulmonary embolism as well. PROBLEM LIST: 1. Extensive left superficial vein DVT (this is a deep vein). 2. Likely pulmonary embolism as well. 3. Hypoxemia. 4. Gram-negative bacillus UTI. 5. GPC bacteremia 6. Hypernatremia and hypokalemia. 7. Protein-calorie malnutrition. 8. Likely underlying dementia versus encephalopathy. 9. Hypertension. 10. Hyperlipidemia. 11. Thrombocytopenia. 12. Normocytic anemia. TREATMENT PLAN: 1. Given the patient will require anticoagulation for DVT, I would not workup PE any further. 2. We will follow up echocardiogram. 3. Continue A/C per heme 4. Consideration for IVCF 5. F/U hypercoag w/u per here 6. Abx per ID 7. Monitor volumes & renal function, IVF per renal 8. Aspiration precautions 9. Full Code, continue to discuss goals of care. Subjective Allergies: Coded Allergies: No Known Allergies (Unverified , 07/26/18) Subjective AFVSS, leta AC, plt 48, no bleeding No distress, no cough, no SOB, no F/C Objective Last 24 Hour Vital Signs Date Time Temp Pulse Resp B/P (MAP) Pulse Ox O2 Delivery O2 Flow Rate FiO2 07/29/18 08:02 97.0 83 15 141/79 (99) 97 97.0 07/29/18 05:49 97.7 87 13 116/67 (83) 96 97.7 07/29/18 04:00 97.7 87 13 116/67 (83) 98 97.7 07/29/18 04:00 85 07/29/18 00:00 97.9 92 20 109/61 (77) 96 97.9 07/29/18 00:00 95 07/28/18 21:00 Room Air 07/28/18 20:00 98 07/28/18 20:00 98.1 96 14 128/75 (92) 95 98.1 07/28/18 16:00 97.5 101 20 117/67 (84) 95 97.5 07/28/18 16:00 101 07/28/18 12:00 97.9 110 22 112/72 (85) 97 97.9 07/28/18 12:00 106 07/28/18 09:00 Room Air Intake and Output 07/28/18 07/29/18 19:00 07:00 Intake Total 1474.375 ml Output Total 200 ml Balance -200 ml 1474.375 ml IV Total 1474.375 ml Output Urine Total 200 ml # Voids 2 # Bowel Movements 1 General Appearance: cachetic HEENT: normocephalic, atraumatic, anicteric, mucous membranes moist Respiratory/Chest: chest wall non-tender, lungs clear, normal breath sounds, no respiratory distress Cardiovascular: normal peripheral pulses, normal rate, regular rhythm Abdomen: normal bowel sounds, soft, non tender, no organomegaly, non distended , no mass Extremities: no cyanosis, no clubbing, no edema Microbiology Date/Time Source Procedure Growth Status 07/26/18 11:20 Blood Blood Culture - Preliminary Gram Positive Cocci Resulted 07/26/18 11:05 Blood Blood Culture - Preliminary NO GROWTH AFTER 48 HOURS Resulted 07/26/18 11:05 Nasal Nares MRSA Culture - Final NO METHICILLIN RESISTANT STAPH AUREUS... Complete 07/26/18 11:25 Urine,Clean Catch Urine Culture - Final Escherichia Coli Complete 07/26/18 11:05 Rectum - Final NO CARBAPENEM-RESISTANT ENTEROBACTERI... Complete 07/26/18 11:05 Rectum VRE Culture - Final NO VANCOMYCIN RESISTANT ENTEROCOCCUS ... Complete Laboratory Tests 07/28/18 16:40: Activated Partial Thromboplast Time 54H 07/29/18 00:00: Activated Partial Thromboplast Time 114H 07/29/18 08:00: Activated Partial Thromboplast Time [Pending], White Blood Count 3.3L, Red Blood Count 3.16L, Hemoglobin 9.3L, Hematocrit 28.9L, Mean Corpuscular Volume 92 , Mean Corpuscular Hemoglobin 29.4, Mean Corpuscular Hemoglobin Concent 32.2, Red Cell Distribution Width 14.1, Platelet Count 48L, Mean Platelet Volume 9.5, Neutrophils (%) (Auto) , Lymphocytes (%) (Auto) , Monocytes (%) (Auto) , Eosinophils (%) (Auto) , Basophils (%) (Auto) , Neutrophils % (Manual) [Pending] , Lymphocytes % (Manual) [Pending], Platelet Estimate [Pending], Platelet Morphology [Pending], Sodium Level [Pending], Potassium Level [Pending], Chloride Level [Pending], Carbon Dioxide Level [Pending], Blood Urea Nitrogen [ Pending], Creatinine [Pending], Estimat Glomerular Filtration Rate [Pending], Glucose Level [Pending], Calcium Level [Pending], Phosphorus Level [Pending], Magnesium Level [Pending], Total Bilirubin [Pending], Aspartate Amino Transf ( AST/SGOT) [Pending], Alanine Aminotransferase (ALT/SGPT) [Pending], Alkaline Phosphatase [Pending], Total Protein [Pending], Albumin [Pending], Globulin [ Pending] Current Medications Medications (Trade) Dose Ordered Sig/Laure Route PRN Reason Start Time Stop Time Status Last Admin Dose Admin Acetaminophen (Tylenol) 650 mg Q4H PRN ORAL Fever/Headache/Mild Pain 07/26/18 16:45 08/25/18 16:44 Aspirin (Ecotrin) 81 mg DAILY ORAL 07/27/18 09:00 08/26/18 08:59 07/29/18 08:24 Dextrose (Dextrose 50%) 25 ml Q30M PRN IV Hypoglycemia 07/26/18 15:15 08/25/18 15:14 Dextrose (Dextrose 50%) 50 ml Q30M PRN IV Hypoglycemia 07/26/18 15:15 08/25/18 15:14 Famotidine (Pepcid) 20 mg BID ORAL 07/26/18 18:00 08/25/18 17:59 07/29/18 08:26 Heparin Sodium/ Dextrose 500 ml @ 14.887 mls/ hr ADJUST PER PROTOCOL IV 07/29/18 01:30 08/28/18 01:29 07/29/18 01:32 Insulin Aspart (NovoLOG) BEFORE MEALS AND HS SUBQ 07/26/18 16:30 08/25/18 16:29 07/28/18 12:14 Piperacillin Sod/ Tazobactam Sod 3.375 gm/Dextrose 110 ml @ 27.5 mls/hr Q8H IVPB 07/26/18 20:00 08/02/18 19:59 07/29/18 04:13 Potassium Chloride (K-Dur) 40 meq BID ORAL 07/28/18 18:00 08/27/18 08:59 07/29/18 08:26 Quetiapine Fumarate (SEROquel) 12.5 mg Q4H PRN ORAL agitation 07/27/18 11:15 08/26/18 11:14 Quetiapine Fumarate (SEROquel) 25 mg Q12HR ORAL 07/27/18 10:40 08/26/18 10:39 07/29/18 08:26 Sodium 1,000 ml @ 100 mls/hr Q10H IV 07/28/18 18:00 08/26/18 17:59 07/29/18 04:13 Vancomycin HCl (Vanco rx to dose) 1 ea DAILY PRN MISC Per rx protocol 07/28/18 09:30 08/27/18 09:29 Vancomycin/Sodium Chloride 250 ml @ 166.667 mls/hr Q24H IVPB 07/29/18 11:00 08/03/18 10:59 07/28/18 11:06 Foreign Parekh MD Jul 29, 2018 08:56
[2018-07-29 08:59] LABS: ALANINE AMINOTRANSFERASE 19 U/L (12-78); ALBUMIN 2.2 G/DL (3.4-5.0); ALBUMIN/GLOBULIN RATIO 0.5 (1.0-2.7); ALKALINE PHOSPHATASE 78 U/L (46-116); ANION GAP 7 mmol/L (5-15); ASPARTATE AMINO TRANSFERASE 22 U/L (15-37); BILIRUBIN,TOTAL 0.7 MG/DL (0.2-1.0); BLOOD UREA NITROGEN 26 mg/dL (7-18); CALCIUM 8.7 MG/DL (8.5-10.1); CARBON DIOXIDE 26 MMOL/L (21-32); CHLORIDE 117 MMOL/L (98-107); PHOSPHORUS 3.1 MG/DL (2.5-4.9); SODIUM 150 MMOL/L (136-145)
[2018-07-29] MEDS ORDERED: Vancomycin 750mg/NS 250ml IVPB SCH (09:30)
[2018-07-29] MEDS: Vancomycin 750mg/NS 250ml IVPB SCH (10:24)
--- NOTE | 2018-07-29 10:58 | GI Progress Note ---
Assessment/Plan Problems: (1) UTI (urinary tract infection) ICD Codes: N39.0 - Urinary tract infection, site not specified SNOMED: 83417387 (2) Sepsis ICD Codes: A41.9 - Sepsis, unspecified organism SNOMED: 91232570 (3) Dehydration ICD Codes: E86.0 - Dehydration SNOMED: 39957017 (4) Malnutrition ICD Codes: E46 - Unspecified protein-calorie malnutrition SNOMED: 17478567 (5) Dementia with behavioral disturbance ICD Codes: F03.91 - Unspecified dementia with behavioral disturbance SNOMED: 3555221922534 Status: not improved, unchanged Status Narrative Discussed with Dr. Argueta. Assessment/Plan abdominal U/S reviewed >> normal liver echogenicity ST evaluation passed on puree Calorie count reviewed with RD >> patient is only meeting 50% of nutritional needs spoke to the son regarding possible GT placement NGTFs per RD, PEG if family agrees prn transfusions ppi abx zofran prn fu labs The patient was seen and examined at bedside and all new and available data was reviewed in the patients chart. I agree with the above findings, impression and plan. (Patient seen earlier today. Signature stamp does not reflect patient encounter time.). - Edwardo Argueta MD Subjective Subjective limited Objective Last 24 Hour Vital Signs Date Time Temp Pulse Resp B/P (MAP) Pulse Ox O2 Delivery O2 Flow Rate FiO2 07/29/18 09:46 Room Air 07/29/18 08:02 97.0 83 15 141/79 (99) 97 97.0 07/29/18 08:00 80 07/29/18 05:49 97.7 87 13 116/67 (83) 96 97.7 07/29/18 04:00 97.7 87 13 116/67 (83) 98 97.7 07/29/18 04:00 85 07/29/18 00:00 97.9 92 20 109/61 (77) 96 97.9 07/29/18 00:00 95 07/28/18 21:00 Room Air 07/28/18 20:00 98 07/28/18 20:00 98.1 96 14 128/75 (92) 95 98.1 07/28/18 16:00 97.5 101 20 117/67 (84) 95 97.5 10/18/18 16:00 101 07/28/18 12:00 97.9 110 22 112/72 (85) 97 97.9 07/28/18 12:00 106 Intake and Output 07/28/18 07/29/18 18:59 06:59 Intake Total 1331.988 ml Output Total 200 ml Balance -200 ml 1331.988 ml IV Total 1331.988 ml Output Urine Total 200 ml # Voids 2 # Bowel Movements 1 Laboratory Tests Test 07/28/18 16:40 07/29/18 00:00 07/29/18 08:00 Activated Partial Thromboplast Time 54 SEC (23-33) H 114 SEC (23-33) H 84 SEC (23-33) H White Blood Count 3.3 K/UL (4.8-10.8) L Red Blood Count 3.16 M/UL (4.20-5.40) L Hemoglobin 9.3 G/DL (12.0-16.0) L Hematocrit 28.9 % (37.0-47.0) L Mean Corpuscular Volume 92 FL (80-99) Mean Corpuscular Hemoglobin 29.4 PG (27.0-31.0) Mean Corpuscular Hemoglobin Concent 32.2 G/DL (32.0-36.0) Red Cell Distribution Width 14.1 % (11.6-14.8) Platelet Count 48 K/UL (150-450) L Mean Platelet Volume 9.5 FL (6.5-10.1) Neutrophils (%) (Auto) % (45.0-75.0) Lymphocytes (%) (Auto) % (20.0-45.0) Monocytes (%) (Auto) % (1.0-10.0) Eosinophils (%) (Auto) % (0.0-3.0) Basophils (%) (Auto) % (0.0-2.0) Differential Total Cells Counted 100 Neutrophils % (Manual) 77 % (45-75) H Lymphocytes % (Manual) 16 % (20-45) L Monocytes % (Manual) 6 % (1-10) Eosinophils % (Manual) 1 % (0-3) Basophils % (Manual) 0 % (0-2) Band Neutrophils 0 % (0-8) Platelet Estimate Decreased L Platelet Morphology Normal Hypochromasia 2+ Anisocytosis 1+ Spherocytes 1+ Sodium Level 150 MMOL/L (136-145) H Potassium Level 4.0 MMOL/L (3.5-5.1) Chloride Level 117 MMOL/L (98-107) H Carbon Dioxide Level 26 MMOL/L (21-32) Anion Gap 7 mmol/L (5-15) Blood Urea Nitrogen 26 mg/dL (7-18) H Creatinine 1.0 MG/DL (0.55-1.30) Estimat Glomerular Filtration Rate mL/min (>60) Glucose Level 126 MG/DL (74-106) H Calcium Level 8.7 MG/DL (8.5-10.1) Phosphorus Level 3.1 MG/DL (2.5-4.9) Magnesium Level 1.9 MG/DL (1.8-2.4) Total Bilirubin 0.7 MG/DL (0.2-1.0) Aspartate Amino Transf (AST/SGOT) 22 U/L (15-37) Alanine Aminotransferase (ALT/SGPT) 19 U/L (12-78) Alkaline Phosphatase 78 U/L (46-116) Total Protein 6.5 G/DL (6.4-8.2) Albumin 2.2 G/DL (3.4-5.0) L Globulin 4.3 g/dL Albumin/Globulin Ratio 0.5 (1.0-2.7) L Height (Feet): 5 Height (Inches): 2.00 Weight (Pounds): 102 General Appearance: WD/WN, no apparent distress, alert, thin Cardiovascular: normal rate Respiratory/Chest: normal breath sounds, no respiratory distress Abdominal Exam: normal bowel sounds, non tender, soft Extremities: normal range of motion, non-tender Aidee Powell [employer] Jul 29, 2018 10:58
--- NOTE | 2018-07-29 13:33 | Infectious Diseases Prog Note ---
Assessment/Plan Assessment/Plan A; Sepsis/ SIRS Bacteremia UTI with E.coli DVT of left leg, ? PE DM type 2 Anemia Thrombocytopenia Leukopenia P; Change Zosyn to Levaquin , Continue Vancomycin Will f/u cultures Subjective ROS Limited/Unobtainable: Yes Allergies: Coded Allergies: No Known Allergies (Unverified , 07/26/18) Objective Vital Signs Last 24 Hour Vital Signs Date Time Temp Pulse Resp B/P (MAP) Pulse Ox O2 Delivery O2 Flow Rate FiO2 07/29/18 12:00 79 07/29/18 12:00 97.3 80 18 100/89 (93) 97 97.3 07/29/18 09:46 Room Air 07/29/18 08:02 97.0 83 15 141/79 (99) 97 97.0 07/29/18 08:00 80 07/29/18 05:49 97.7 87 13 116/67 (83) 96 97.7 07/29/18 04:00 97.7 87 13 116/67 (83) 98 97.7 07/29/18 04:00 85 07/29/18 00:00 97.9 92 20 109/61 (77) 96 97.9 07/29/18 00:00 95 07/28/18 21:00 Room Air 07/28/18 20:00 98 07/28/18 20:00 98.1 96 14 128/75 (92) 95 98.1 07/28/18 16:00 97.5 101 20 117/67 (84) 95 97.5 07/28/18 16:00 101 Height (Feet): 5 Height (Inches): 2.00 Weight (Pounds): 102 General Appearance: no acute distress HEENT: mucous membranes moist Respiratory/Chest: lungs clear Cardiovascular: normal rate Abdomen: soft, non tender, other - NG tube Extremities: other Neurologic/Psychiatric: disoriented, other - on restraint Laboratory Tests Test 07/28/18 16:40 07/29/18 00:00 07/29/18 08:00 Activated Partial Thromboplast Time 54 SEC (23-33) H 114 SEC (23-33) H 84 SEC (23-33) H White Blood Count 3.3 K/UL (4.8-10.8) L Red Blood Count 3.16 M/UL (4.20-5.40) L Hemoglobin 9.3 G/DL (12.0-16.0) L Hematocrit 28.9 % (37.0-47.0) L Mean Corpuscular Volume 92 FL (80-99) Mean Corpuscular Hemoglobin 29.4 PG (27.0-31.0) Mean Corpuscular Hemoglobin Concent 32.2 G/DL (32.0-36.0) Red Cell Distribution Width 14.1 % (11.6-14.8) Platelet Count 48 K/UL (150-450) L Mean Platelet Volume 9.5 FL (6.5-10.1) Neutrophils (%) (Auto) % (45.0-75.0) Lymphocytes (%) (Auto) % (20.0-45.0) Monocytes (%) (Auto) % (1.0-10.0) Eosinophils (%) (Auto) % (0.0-3.0) Basophils (%) (Auto) % (0.0-2.0) Differential Total Cells Counted 100 Neutrophils % (Manual) 77 % (45-75) H Lymphocytes % (Manual) 16 % (20-45) L Monocytes % (Manual) 6 % (1-10) Eosinophils % (Manual) 1 % (0-3) Basophils % (Manual) 0 % (0-2) Band Neutrophils 0 % (0-8) Platelet Estimate Decreased L Platelet Morphology Normal Hypochromasia 2+ Anisocytosis 1+ Spherocytes 1+ Sodium Level 150 MMOL/L (136-145) H Potassium Level 4.0 MMOL/L (3.5-5.1) Chloride Level 117 MMOL/L (98-107) H Carbon Dioxide Level 26 MMOL/L (21-32) Anion Gap 7 mmol/L (5-15) Blood Urea Nitrogen 26 mg/dL (7-18) H Creatinine 1.0 MG/DL (0.55-1.30) Estimat Glomerular Filtration Rate mL/min (>60) Glucose Level 126 MG/DL (74-106) H Calcium Level 8.7 MG/DL (8.5-10.1) Phosphorus Level 3.1 MG/DL (2.5-4.9) Magnesium Level 1.9 MG/DL (1.8-2.4) Total Bilirubin 0.7 MG/DL (0.2-1.0) Aspartate Amino Transf (AST/SGOT) 22 U/L (15-37) Alanine Aminotransferase (ALT/SGPT) 19 U/L (12-78) Alkaline Phosphatase 78 U/L (46-116) Total Protein 6.5 G/DL (6.4-8.2) Albumin 2.2 G/DL (3.4-5.0) L Globulin 4.3 g/dL Albumin/Globulin Ratio 0.5 (1.0-2.7) L Current Medications Medications (Trade) Dose Ordered Sig/Laure Route PRN Reason Start Time Stop Time Status Last Admin Dose Admin Acetaminophen (Tylenol) 650 mg Q4H PRN ORAL Fever/Headache/Mild Pain 07/26/18 16:45 08/25/18 16:44 Aspirin (Ecotrin) 81 mg DAILY ORAL 07/27/18 09:00 08/26/18 08:59 07/29/18 08:24 Dextrose (Dextrose 50%) 25 ml Q30M PRN IV Hypoglycemia 07/26/18 15:15 08/25/18 15:14 Dextrose (Dextrose 50%) 50 ml Q30M PRN IV Hypoglycemia 07/26/18 15:15 08/25/18 15:14 Famotidine (Pepcid) 20 mg BID ORAL 07/26/18 18:00 08/25/18 17:59 07/29/18 08:26 Heparin Sodium/ Dextrose 500 ml @ 14.887 mls/ hr ADJUST PER PROTOCOL IV 07/29/18 01:30 08/28/18 01:29 07/29/18 01:32 Insulin Aspart (NovoLOG) BEFORE MEALS AND HS SUBQ 07/26/18 16:30 08/25/18 16:29 07/29/18 11:41 Piperacillin Sod/ Tazobactam Sod 3.375 gm/Dextrose 110 ml @ 27.5 mls/hr Q8H IVPB 07/26/18 20:00 08/02/18 19:59 07/29/18 11:40 Potassium Chloride (K-Dur) 40 meq BID ORAL 07/28/18 18:00 08/27/18 08:59 07/29/18 08:26 Quetiapine Fumarate (SEROquel) 12.5 mg Q4H PRN ORAL agitation 07/27/18 11:15 08/26/18 11:14 Quetiapine Fumarate (SEROquel) 25 mg Q12HR ORAL 07/27/18 10:40 08/26/18 10:39 07/29/18 08:26 Sodium 1,000 ml @ 100 mls/hr Q10H IV 07/28/18 18:00 08/26/18 17:59 07/29/18 04:13 Vancomycin HCl (Vanco rx to dose) 1 ea DAILY PRN MISC Per rx protocol 07/28/18 09:30 08/27/18 09:29 Vancomycin/Sodium Chloride 250 ml @ 166.667 mls/hr Q24H IVPB 07/29/18 11:00 08/03/18 10:59 07/29/18 10:24 Shimon Card MD Jul 29, 2018 13:33
--- NOTE | 2018-07-29 14:37 | Nephrology Progress Note ---
Assessment/Plan Problem List: (1) UTI (urinary tract infection) (2) Dehydration (3) Hypernatremia (4) Hypokalemia (5) Malnutrition Assessment uncooporative Dehydration- Hypernatremia DM OOC Anemia UTI Malnutrition Plan 1/2 NS KCL as needed check labs Per consultants Subjective ROS Limited/Unobtainable: No Constitutional: Reports: malaise Objective Objective Last 24 Hour Vital Signs Date Time Temp Pulse Resp B/P (MAP) Pulse Ox O2 Delivery O2 Flow Rate FiO2 07/29/18 12:00 79 07/29/18 12:00 97.3 80 18 100/89 (93) 97 97.3 07/29/18 09:46 Room Air 07/29/18 08:02 97.0 83 15 141/79 (99) 97 97.0 07/29/18 08:00 80 07/29/18 05:49 97.7 87 13 116/67 (83) 96 97.7 07/29/18 04:00 97.7 87 13 116/67 (83) 98 97.7 07/29/18 04:00 85 07/29/18 00:00 97.9 92 20 109/61 (77) 96 97.9 07/29/18 00:00 95 07/28/18 21:00 Room Air 07/28/18 20:00 98 07/28/18 20:00 98.1 96 14 128/75 (92) 95 98.1 07/28/18 16:00 97.5 101 20 117/67 (84) 95 97.5 07/28/18 16:00 101 Intake and Output 07/28/18 07/29/18 18:59 06:59 Intake Total 1331.988 ml Output Total 200 ml Balance -200 ml 1331.988 ml IV Total 1331.988 ml Output Urine Total 200 ml # Voids 2 # Bowel Movements 1 Laboratory Tests 07/28/18 16:40: Activated Partial Thromboplast Time 54H 07/29/18 00:00: Activated Partial Thromboplast Time 114H 07/29/18 08:00: Activated Partial Thromboplast Time 84H, White Blood Count 3.3L, Red Blood Count 3.16L, Hemoglobin 9.3L, Hematocrit 28.9L, Mean Corpuscular Volume 92, Mean Corpuscular Hemoglobin 29.4, Mean Corpuscular Hemoglobin Concent 32.2, Red Cell Distribution Width 14.1, Platelet Count 48L, Mean Platelet Volume 9.5, Neutrophils (%) (Auto) , Lymphocytes (%) (Auto) , Monocytes (%) (Auto) , Eosinophils (%) (Auto) , Basophils (%) (Auto) , Differential Total Cells Counted 100, Neutrophils % (Manual) 77H, Lymphocytes % (Manual) 16L, Monocytes % (Manual) 6, Eosinophils % (Manual) 1, Basophils % (Manual) 0, Band Neutrophils 0, Platelet Estimate DecreasedL, Platelet Morphology Normal, Hypochromasia 2+, Anisocytosis 1+, Spherocytes 1+, Sodium Level 150H, Potassium Level 4.0, Chloride Level 117H, Carbon Dioxide Level 26, Anion Gap 7, Blood Urea Nitrogen 26H, Creatinine 1.0, Estimat Glomerular Filtration Rate , Glucose Level 126H, Calcium Level 8.7, Phosphorus Level 3.1, Magnesium Level 1.9, Total Bilirubin 0.7, Aspartate Amino Transf (AST/SGOT) 22, Alanine Aminotransferase ( ALT/SGPT) 19, Alkaline Phosphatase 78, Total Protein 6.5, Albumin 2.2L, Globulin 4.3, Albumin/Globulin Ratio 0.5L Height (Feet): 5 Height (Inches): 2.00 Weight (Pounds): 102 EENT: other - NGT Cardiovascular: normal rate Respiratory/Chest: decreased breath sounds Abdomen: distended Objective no change Parvez Bergman MD Jul 29, 2018 14:37
[2018-07-29] MEDS: cefTRIAXone 1 GM in D5W 55 ML IVPB SCH (15:10)
--- NOTE | 2018-07-29 15:42 | Diagnostic Imaging Report ---
Indication: Post nasogastric tube placement Technique: Supine view of the abdomen Comparison: none Findings: . Provided, second which demonstrates a nasogastric tube tip at the level gastric antrum, well within the stomach. 7 mm x 4 mm calcification is seen to the left of the L4 vertebral body, could be in the left ureter. Calcifications are projected over the lower pole of the left kidney. There are degenerative changes of the lumbar spine and lower thoracic spine Impression: Satisfactory position of nasogastric tube Calcification projected to the left of L4. Given presence of hydronephrosis on recent sonogram of 07/27/2018, this is concerning for a mid ureteral calculus. Findings discussed by phone with Dr. Arauz at the time of interpretation
--- NOTE | 2018-07-29 15:48 | General Progress Note ---
Assessment/Plan Status: stable Assessment/Plan # DVT of the left leg -- superifcial femoral vein, new onset, has not had these symptoms before --> heparin gtt has been discontinued --> monitor platelet count closely --> appreciate Dr. Parekh recs --> if >50k, okay to continue anticoag, however if drops consider ivc filter --> Plt count at 48k # Thrombocytopenia --> unknown cause, first time here at [facility], do not have baseline, could be reactive --> Cont to monitor plt count for improvement --> US abd: Mild left hydronephrosis. Possible left renal calyceal calculi. Negative for gallstones or dilated ducts Debris noted within the bladder --> Hep panel and HIV are both negative --> may consider bone marrow biopsy given persistent but can do as outpatient --> Current plt count 48k # Anemia of chronic disease --> Cont to monitor for stability --> Hgb goal above 7. # Dehydration # DM OOC --> A1C goal less than 7 --> Cont on insulin # UTI. --> ID is following. Appreciate recs. --> Pt on IV abx. --> Cultures - gram negative bacillus Greatly appreciate consultation! Subjective Date patient seen: Jul 29, 2018 Hematologic/Lymphatic: Reports: anemia Allergies: Coded Allergies: No Known Allergies (Unverified , 07/26/18) All Systems: reviewed and negative except above Subjective Pt resting in bed. No acute events. Afebrile. H/H stable. NGT inserted. Objective Last 24 Hour Vital Signs Date Time Temp Pulse Resp B/P (MAP) Pulse Ox O2 Delivery O2 Flow Rate FiO2 07/29/18 12:00 79 07/29/18 12:00 97.3 80 18 100/89 (93) 97 97.3 07/29/18 09:46 Room Air 07/29/18 08:02 97.0 83 15 141/79 (99) 97 97.0 07/29/18 08:00 80 07/29/18 05:49 97.7 87 13 116/67 (83) 96 97.7 07/29/18 04:00 97.7 87 13 116/67 (83) 98 97.7 07/29/18 04:00 85 07/29/18 00:00 97.9 92 20 109/61 (77) 96 97.9 07/29/18 00:00 95 07/28/18 21:00 Room Air 07/28/18 20:00 98 07/28/18 20:00 98.1 96 14 128/75 (92) 95 98.1 07/28/18 16:00 97.5 101 20 117/67 (84) 95 97.5 07/28/18 16:00 101 Intake and Output 07/28/18 07/29/18 18:59 06:59 Intake Total 1331.988 ml Output Total 200 ml Balance -200 ml 1331.988 ml IV Total 1331.988 ml Output Urine Total 200 ml # Voids 2 # Bowel Movements 1 Laboratory Tests 07/28/18 16:40: Activated Partial Thromboplast Time 54H 07/29/18 00:00: Activated Partial Thromboplast Time 114H 07/29/18 08:00: Activated Partial Thromboplast Time 84H, White Blood Count 3.3L, Red Blood Count 3.16L, Hemoglobin 9.3L, Hematocrit 28.9L, Mean Corpuscular Volume 92, Mean Corpuscular Hemoglobin 29.4, Mean Corpuscular Hemoglobin Concent 32.2, Red Cell Distribution Width 14.1, Platelet Count 48L, Mean Platelet Volume 9.5, Neutrophils (%) (Auto) , Lymphocytes (%) (Auto) , Monocytes (%) (Auto) , Eosinophils (%) (Auto) , Basophils (%) (Auto) , Differential Total Cells Counted 100, Neutrophils % (Manual) 77H, Lymphocytes % (Manual) 16L, Monocytes % (Manual) 6, Eosinophils % (Manual) 1, Basophils % (Manual) 0, Band Neutrophils 0, Platelet Estimate DecreasedL, Platelet Morphology Normal, Hypochromasia 2+, Anisocytosis 1+, Spherocytes 1+, Sodium Level 150H, Potassium Level 4.0, Chloride Level 117H, Carbon Dioxide Level 26, Anion Gap 7, Blood Urea Nitrogen 26H, Creatinine 1.0, Estimat Glomerular Filtration Rate , Glucose Level 126H, Calcium Level 8.7, Phosphorus Level 3.1, Magnesium Level 1.9, Total Bilirubin 0.7, Aspartate Amino Transf (AST/SGOT) 22, Alanine Aminotransferase ( ALT/SGPT) 19, Alkaline Phosphatase 78, Total Protein 6.5, Albumin 2.2L, Globulin 4.3, Albumin/Globulin Ratio 0.5L Height (Feet): 5 Height (Inches): 2.00 Weight (Pounds): 102 General Appearance: no apparent distress EENT: PERRL/EOMI Neck: normal alignment Cardiovascular: normal peripheral pulses Respiratory/Chest: no respiratory distress Abdomen: non tender Dewayne Gayle MD Jul 29, 2018 15:48
--- NOTE | 2018-07-29 19:05 | Diagnostic Imaging Report ---
History: STONES Exam: CT ABDOMEN + PELVIS Without Contrast Technique more: CTDI is 13.45 mGy and DLP is 726 mGy-cm. Technique more: One or more of the following dose reduction techniques were used: automated exposure control, adjustment of the mA and/or kV according to patient size, use of iterative reconstruction technique. Comparison: None available FINDINGS: Bilateral patchy basilar opacities may represent developing pneumonia, possible aspiration. Nasogastric tube within the stomach. Motion artifact. The liver, adrenal glands, spleen, pancreas and abdominal aorta appear within limits on noncontrast imaging. The gallbladder appears mildly prominent in the wall is difficult to evaluate given the motion artifact and cannot exclude mild wall edema, adjacent fat stranding. 4 to 5 mm right intrarenal stone. A couple of left intrarenal stones. Moderate left hydronephrosis with 4 to 5 mm left ureteral stone at the L4 level. Based on size may not spontaneously pass the UVJ. No bowel dilation, free air or free fluid. Mildly high density material appears to be layering within the right side of the bladder with possible fluid/fluid level which may represent faint stones, excreted contrast material or hemorrhage. The bladder is prominent in size without evidence of wall thickening seen. Presacral perirectal stranding, edema is nonspecific. No free fluid. Multilevel spondylosis/discogenic change IMPRESSION: Bilateral patchy basilar opacities may represent developing pneumonia, possible aspiration. Nasogastric tube within the stomach. Motion artifact. The gallbladder appears mildly prominent in the wall is difficult to evaluate given the motion artifact and cannot exclude mild wall edema, adjacent fat stranding. 4 to 5 mm right intrarenal stone. A couple of left intrarenal stones. Moderate left hydronephrosis with 4 to 5 mm left ureteral stone at the L4 level. Based on size may not spontaneously pass the UVJ. Mildly high density material appears to be layering within the right side of the bladder with possible fluid/fluid level which may represent faint stones, excreted contrast material or hemorrhage. The bladder is prominent in size without evidence of wall thickening seen. Presacral perirectal stranding, edema is nonspecific.
--- NOTE | 2018-07-29 22:23 | General Progress Note ---
Assessment/Plan Problem List: (1) Dementia with behavioral disturbance ICD Codes: F03.91 - Unspecified dementia with behavioral disturbance SNOMED: 9627726179106 (2) Encephalopathy due to metabolic factor or toxin SNOMED: 662112432 Status: progressing Assessment/Plan 1. 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 2. Dementia. PLAN: 1. We will continue the Seroquel. 2. Provide reality orientation and supportive therapy. Subjective Neurologic/Psychiatric: Reports: anxiety, depressed, emotional problems Allergies: Coded Allergies: No Known Allergies (Unverified , 07/26/18) Objective Last 24 Hour Vital Signs Date Time Temp Pulse Resp B/P (MAP) Pulse Ox O2 Delivery O2 Flow Rate FiO2 07/29/18 16:00 96.1 84 18 136/78 (97) 97 96.1 07/29/18 16:00 65 07/29/18 12:00 79 07/29/18 12:00 97.3 80 18 100/89 (93) 97 97.3 07/29/18 09:46 Room Air 07/29/18 08:02 97.0 83 15 141/79 (99) 97 97.0 07/29/18 08:00 80 07/29/18 05:49 97.7 87 13 116/67 (83) 96 97.7 07/29/18 04:00 97.7 87 13 116/67 (83) 98 97.7 07/29/18 04:00 85 07/29/18 00:00 97.9 92 20 109/61 (77) 96 97.9 07/29/18 00:00 95 Intake and Output 07/28/18 07/29/18 19:00 07:00 Intake Total 1474.375 ml Output Total 200 ml Balance -200 ml 1474.375 ml IV Total 1474.375 ml Output Urine Total 200 ml # Voids 2 # Bowel Movements 1 Laboratory Tests 07/29/18 00:00: Activated Partial Thromboplast Time 114H 07/29/18 08:00: Activated Partial Thromboplast Time 84H, White Blood Count 3.3L, Red Blood Count 3.16L, Hemoglobin 9.3L, Hematocrit 28.9L, Mean Corpuscular Volume 92, Mean Corpuscular Hemoglobin 29.4, Mean Corpuscular Hemoglobin Concent 32.2, Red Cell Distribution Width 14.1, Platelet Count 48L, Mean Platelet Volume 9.5, Neutrophils (%) (Auto) , Lymphocytes (%) (Auto) , Monocytes (%) (Auto) , Eosinophils (%) (Auto) , Basophils (%) (Auto) , Differential Total Cells Counted 100, Neutrophils % (Manual) 77H, Lymphocytes % (Manual) 16L, Monocytes % (Manual) 6, Eosinophils % (Manual) 1, Basophils % (Manual) 0, Band Neutrophils 0, Platelet Estimate DecreasedL, Platelet Morphology Normal, Hypochromasia 2+, Anisocytosis 1+, Spherocytes 1+, Sodium Level 150H, Potassium Level 4.0, Chloride Level 117H, Carbon Dioxide Level 26, Anion Gap 7, Blood Urea Nitrogen 26H, Creatinine 1.0, Estimat Glomerular Filtration Rate , Glucose Level 126H, Calcium Level 8.7, Phosphorus Level 3.1, Magnesium Level 1.9, Total Bilirubin 0.7, Aspartate Amino Transf (AST/SGOT) 22, Alanine Aminotransferase ( ALT/SGPT) 19, Alkaline Phosphatase 78, Total Protein 6.5, Albumin 2.2L, Globulin 4.3, Albumin/Globulin Ratio 0.5L Height (Feet): 5 Height (Inches): 2.00 Weight (Pounds): 102 General Appearance: alert, confused, agitated Kimmy Chavez MD Jul 29, 2018 22:23
--- NOTE | 2018-07-29 23:08 | General Progress Note ---
Assessment/Plan Problem List: (1) Dementia with behavioral disturbance ICD Codes: F03.91 - Unspecified dementia with behavioral disturbance SNOMED: 8368142419639 (2) Malnutrition ICD Codes: E46 - Unspecified protein-calorie malnutrition SNOMED: 05952340 (3) Sepsis ICD Codes: A41.9 - Sepsis, unspecified organism SNOMED: 40615266 (4) Dehydration ICD Codes: E86.0 - Dehydration SNOMED: 47693475 (5) UTI (urinary tract infection) ICD Codes: N39.0 - Urinary tract infection, site not specified SNOMED: 84308323 Status: progressing Assessment/Plan afebrile sepsis uti hydronephrosis kidney stone? consulted urology Subjective ROS Limited/Unobtainable: Yes Allergies: Coded Allergies: No Known Allergies (Unverified , 07/26/18) Objective Last 24 Hour Vital Signs Date Time Temp Pulse Resp B/P (MAP) Pulse Ox O2 Delivery O2 Flow Rate FiO2 07/29/18 21:00 139/71 (93) 07/29/18 20:00 97.9 89 20 191/73 (112) 97 97.9 07/29/18 20:00 80 07/29/18 16:00 96.1 84 18 136/78 (97) 97 96.1 07/29/18 16:00 65 07/29/18 12:00 79 07/29/18 12:00 97.3 80 18 100/89 (93) 97 97.3 07/29/18 09:46 Room Air 07/29/18 08:02 97.0 83 15 141/79 (99) 97 97.0 07/29/18 08:00 80 07/29/18 05:49 97.7 87 13 116/67 (83) 96 97.7 07/29/18 04:00 97.7 87 13 116/67 (83) 98 97.7 07/29/18 04:00 85 07/29/18 00:00 97.9 92 20 109/61 (77) 96 97.9 07/29/18 00:00 95 Intake and Output 07/28/18 07/29/18 19:00 07:00 Intake Total 1474.375 ml Output Total 200 ml Balance -200 ml 1474.375 ml IV Total 1474.375 ml Output Urine Total 200 ml # Voids 2 # Bowel Movements 1 Laboratory Tests 07/29/18 00:00: Activated Partial Thromboplast Time 114H 07/29/18 08:00: Activated Partial Thromboplast Time 84H, White Blood Count 3.3L, Red Blood Count 3.16L, Hemoglobin 9.3L, Hematocrit 28.9L, Mean Corpuscular Volume 92, Mean Corpuscular Hemoglobin 29.4, Mean Corpuscular Hemoglobin Concent 32.2, Red Cell Distribution Width 14.1, Platelet Count 48L, Mean Platelet Volume 9.5, Neutrophils (%) (Auto) , Lymphocytes (%) (Auto) , Monocytes (%) (Auto) , Eosinophils (%) (Auto) , Basophils (%) (Auto) , Differential Total Cells Counted 100, Neutrophils % (Manual) 77H, Lymphocytes % (Manual) 16L, Monocytes % (Manual) 6, Eosinophils % (Manual) 1, Basophils % (Manual) 0, Band Neutrophils 0, Platelet Estimate DecreasedL, Platelet Morphology Normal, Hypochromasia 2+, Anisocytosis 1+, Spherocytes 1+, Sodium Level 150H, Potassium Level 4.0, Chloride Level 117H, Carbon Dioxide Level 26, Anion Gap 7, Blood Urea Nitrogen 26H, Creatinine 1.0, Estimat Glomerular Filtration Rate , Glucose Level 126H, Calcium Level 8.7, Phosphorus Level 3.1, Magnesium Level 1.9, Total Bilirubin 0.7, Aspartate Amino Transf (AST/SGOT) 22, Alanine Aminotransferase ( ALT/SGPT) 19, Alkaline Phosphatase 78, Total Protein 6.5, Albumin 2.2L, Globulin 4.3, Albumin/Globulin Ratio 0.5L Height (Feet): 5 Height (Inches): 2.00 Weight (Pounds): 102 General Appearance: confused Cardiovascular: normal rate Respiratory/Chest: lungs clear Yi Asencio MD Jul 29, 2018 23:08
[2018-07-30] VITALS: BP 127/66
--- NOTE | 2018-07-30 01:15 | Consultation ---
DATE OF CONSULTATION: 07/29/2018 UROLOGY CONSULTATION ATTENDING/CONSULTING PHYSICIAN: Yi Asencio M.D. CHIEF COMPLAINT/HISTORY OF PRESENT ILLNESS: I was asked by Dr. Asencio to evaluate this 78-year-old Turkish female regarding history of a possible ureteral stone noted incidentally on imaging. Briefly, the patient presented to the hospital with multiple medical issues. She has dementia and is nonverbal. She was found to have evidence of urinary tract infection and sepsis. She was also found to have evidence of DVT. She was admitted to the hospital and placed on IV antibiotics and a heparin drip. A renal ultrasound to evaluate her kidneys secondary to a slightly elevated creatinine revealed evidence of mild left hydronephrosis left hydronephrosis and possible stones. A KUB revealed a possible 7 mm stone toww the left of L4. Given the above, I was asked to evaluate the patient. As noted above, the patient is nonverbal and cannot provide any information. She also may apparently speaks Turkish. Most information is gathered from the chart. PAST MEDICAL HISTORY: 1. Dementia/organic brain syndrome. 2. Hypertension. 3. Anxiety. 4. Urinary tract infection/sepsis here. 5. Hyperlipidemia. PAST SURGICAL HISTORY: Unknown. MEDICATIONS: Please see the chart for current medications and administration details. Briefly, the patient is receiving Zosyn, ceftriaxone, and vancomycin for antibiotic coverage. She is also on a heparin drip for her DVT. ALLERGIES: No known drug allergies. SOCIAL HISTORY: Unobtainable. FAMILY HISTORY: Unobtainable. REVIEW OF SYSTEMS: A 14-system review of systems cannot be done as the patient cannot answer any questions. PHYSICAL EXAMINATION: GENERAL: The patient is an elderly Turkish female, no obvious distress, no apparent pain. HEENT: NC/AT. Oropharynx clear. NECK: Supple. CHEST: Within normal limits. ABDOMEN: Soft, nontender, nondistended. EXTREMITIES: Normal perfused. No cyanosis, clubbing, or edema. BACK: No CVA tenderness to percussion. NEUROLOGIC: Notable for dementia. The patient cannot cooperate with the remainder of the exam. LABORATORY DATA: White blood cell count 3.3, hematocrit 28.9, platelets 248,000. PTT 84. Sodium 150, potassium 4.0, chloride 117, bicarb 26. BUN 26, creatinine 1.0, glucose 126. Calcium 8.7. LFTs within normal limits. Urinalysis, specific gravity 1.020, pH 5.0. Dip test notable for 5+ occult blood, and 3+ leukocyte esterase and too numerous to count white blood cells per high-power field. There were many bacteria seen. There are 10 to 15 red blood cells per high-power field. Urine culture with 100,000 colonies of E. coli, sensitive to ceftriaxone and Zosyn. Blood cultures with gram-positive cocci. DIAGNOSTIC IMAGING: Abdominal ultrasound reveals mild left hydronephrosis with possible left renal calculi, consider CT scan for better characterization if indicated. There was some debris within the bladder. Abdominal x-ray reveals satisfactory position of NG tube. There is calcification projected to the left of L4. This is concerning for possible mid ureteral calculus. ASSESSMENT AND PLAN: In summary, the patient is a 78-year-old demented female with a history of urinary tract infection and sepsis. She was also found to have evidence of a DVT. She was placed on intravenous antibiotics and a heparin drip here in the hospital. She is demented and cannot provide any information. Physical exam did not reveal any obvious pain or distress on abdominal or back exam. Laboratory data is notable for a now normal creatinine and evidence of urinary tract infection. Urine culture grew E. coli. Blood cultures were notable for gram-positive cocci. Diagnostic imaging revealed some mild left hydronephrosis and a possible ureteral stone on KUB. It appears that this patient may have a mid ureteral stone on the left side. She does not appear to have any pain or symptoms from this at this time. I will order a CT scan to better evaluate for the presence of a stone and the size, location, etc. Given her overall current clinical picture, however, I would defer management of the same. Given that she does not appear to be any pain, her renal function has returned normal. She is being treated for an active infection and she is receiving a heparin drip for a DVT. In addition, the patient is thrombocytopenic and anemic if there is a ureteral stone present. Once the patient's other medical issues are improved, we can consider ureteroscopy with laser lithotripsy or double-J stent placement if necessary to treat ureteral stone. Obviously, the patient cannot give consent for this procedure and someone else would have to. Thank you for allowing me to participate in the care of this unfortunate lady. Please do not hesitate to contact me if any questions that you may further have regarding her care. I will see her with you as needed. Trey Shore M.D. DR: A[place] JOB#: [id number] CC:
[2018-07-30] MEDS: Heparin 25,000u/D5W 500ml 500 ML IV SCH (01:30)
[2018-07-30 04:00] VITALS: BP 153/80
[2018-07-30 04:23] LABS: ANION GAP 8 mmol/L (5-15); BLOOD UREA NITROGEN 16 mg/dL (7-18); CARBON DIOXIDE 26 MMOL/L (21-32); CHLORIDE 112 MMOL/L (98-107); CREATININE 0.9 MG/DL (0.55-1.30); SODIUM 146 MMOL/L (136-145)
[2018-07-30 04:50] LABS: HEMATOCRIT 28.6 % (37.0-47.0); HEMOGLOBIN 9.4 G/DL (12.0-16.0); MEAN CORPUSCULAR VOLUME 92 FL (80-99); PLATELET COUNT 60 K/UL (150-450); RED BLOOD COUNT 3.13 M/UL (4.20-5.40); RED CELL DISTRIBUTION WIDTH 13.7 % (11.6-14.8); WHITE BLOOD COUNT 4.8 K/UL (4.8-10.8)
[2018-07-30] MEDS: NovoLOG Insulin Flexpen SUBQ SCH ×4 (06:30→21:00)
[2018-07-30 08:00] VITALS: BP 113/63
[2018-07-30] MEDS: Aspirin EC 81mg tab ORAL SCH ×2 (08:24→08:25)
[2018-07-30] MEDS: cefTRIAXone 1 GM in D5W 55 ML IVPB SCH (08:24)
[2018-07-30] MEDS: 1/2NS w/KCl 20mEq 1000ml 1,000 ML IV SCH ×2 (08:25→16:38)
[2018-07-30 12:00] VITALS: BP 115/65
[2018-07-30 16:05] VITALS: BP 125/67
--- NOTE | 2018-07-30 16:16 | Nephrology Progress Note ---
Assessment/Plan Problem List: (1) UTI (urinary tract infection) (2) Dehydration (3) Hypernatremia (4) Hypokalemia (5) Malnutrition Assessment Dehydration- Hypernatremia DM OOC Anemia UTI Malnutrition Plan 1/2 NS KCL as needed check labs Per consultants Subjective ROS Limited/Unobtainable: No Constitutional: Reports: malaise, weakness Objective Objective Last 24 Hour Vital Signs Date Time Temp Pulse Resp B/P (MAP) Pulse Ox O2 Delivery O2 Flow Rate FiO2 07/30/18 16:05 97.2 76 18 125/67 (86) 98 97.2 07/30/18 12:00 98.2 72 16 115/65 (82) 97 98.2 07/30/18 12:00 71 07/30/18 09:10 Room Air 07/30/18 08:00 97.8 72 18 113/63 (80) 96 97.8 07/30/18 08:00 79 07/30/18 04:00 95 07/30/18 04:00 98.2 90 18 153/80 (104) 97 98.2 07/30/18 00:00 72 07/30/18 00:00 98.1 74 18 127/66 (86) 98 98.1 07/29/18 21:00 Room Air 07/29/18 21:00 139/71 (93) 07/29/18 20:00 97.9 89 20 191/73 (112) 97 97.9 07/29/18 20:00 80 Intake and Output 07/29/18 07/30/18 18:59 06:59 Intake Total 998.376 ml Balance 998.376 ml IV Total 998.376 ml # Voids 1 4 # Bowel Movements 1 Laboratory Tests 07/30/18 04:06: White Blood Count 4.8, Red Blood Count 3.13L, Hemoglobin 9.4L, Hematocrit 28.6L , Mean Corpuscular Volume 92, Mean Corpuscular Hemoglobin 30.0, Mean Corpuscular Hemoglobin Concent 32.8, Red Cell Distribution Width 13.7, Platelet Count 60L, Mean Platelet Volume 10.5H, Neutrophils (%) (Auto) , Lymphocytes (%) (Auto) , Monocytes (%) (Auto) , Eosinophils (%) (Auto) , Basophils (%) (Auto) , Differential Total Cells Counted 100, Neutrophils % (Manual) 88H, Lymphocytes % (Manual) 8L, Monocytes % (Manual) 4, Eosinophils % (Manual) 0, Basophils % ( Manual) 0, Band Neutrophils 0, Platelet Estimate DecreasedL, Platelet Morphology Normal, Red Blood Cell Morphology Normal, Activated Partial Thromboplast Time 67H, Sodium Level 146H, Potassium Level 4.0, Chloride Level 112H, Carbon Dioxide Level 26, Anion Gap 8, Blood Urea Nitrogen 16, Creatinine 0.9, Estimat Glomerular Filtration Rate , Glucose Level 110H, Calcium Level 9.0 07/30/18 10:25: Vancomycin Level Trough 9.7 Height (Feet): 5 Height (Inches): 2.00 Weight (Pounds): 102 EENT: other - NGT Cardiovascular: normal rate Respiratory/Chest: decreased breath sounds Abdomen: soft Objective no change Parvez Bergman MD Jul 30, 2018 16:16
--- NOTE | 2018-07-30 16:33 | General Progress Note ---
Assessment/Plan Assessment/Plan Assessment/Plan Problems: (1) UTI (urinary tract infection) ICD Codes: N39.0 - Urinary tract infection, site not specified SNOMED: 93000262 (2) Sepsis ICD Codes: A41.9 - Sepsis, unspecified organism SNOMED: 52659586 (3) Dehydration ICD Codes: E86.0 - Dehydration SNOMED: 31575712 (4) Malnutrition ICD Codes: E46 - Unspecified protein-calorie malnutrition SNOMED: 01698598 (5) Dementia with behavioral disturbance ICD Codes: F03.91 - Unspecified dementia with behavioral disturbance SNOMED: 0895032161278 Status: not improved, unchanged Assessment/Plan spoke to the son regarding possible GT placement NGTFs per RD, PEG if family agrees prn transfusions ppi abx zofran prn fu labs Subjective Allergies: Coded Allergies: No Known Allergies (Unverified , 07/26/18) Subjective Above noted minimally interactive tolerating TF Objective Last 24 Hour Vital Signs Date Time Temp Pulse Resp B/P (MAP) Pulse Ox O2 Delivery O2 Flow Rate FiO2 07/30/18 16:05 97.2 76 18 125/67 (86) 98 97.2 07/30/18 12:00 98.2 72 16 115/65 (82) 97 98.2 07/30/18 12:00 71 07/30/18 09:10 Room Air 07/30/18 08:00 97.8 72 18 113/63 (80) 96 97.8 07/30/18 08:00 79 07/30/18 04:00 95 07/30/18 04:00 98.2 90 18 153/80 (104) 97 98.2 07/30/18 00:00 72 07/30/18 00:00 98.1 74 18 127/66 (86) 98 98.1 07/29/18 21:00 Room Air 07/29/18 21:00 139/71 (93) 07/29/18 20:00 97.9 89 20 191/73 (112) 97 97.9 07/29/18 20:00 80 Intake and Output 07/29/18 07/30/18 18:59 06:59 Intake Total 998.376 ml Balance 998.376 ml IV Total 998.376 ml # Voids 1 4 # Bowel Movements 1 Laboratory Tests 07/30/18 04:06: White Blood Count 4.8, Red Blood Count 3.13L, Hemoglobin 9.4L, Hematocrit 28.6L , Mean Corpuscular Volume 92, Mean Corpuscular Hemoglobin 30.0, Mean Corpuscular Hemoglobin Concent 32.8, Red Cell Distribution Width 13.7, Platelet Count 60L, Mean Platelet Volume 10.5H, Neutrophils (%) (Auto) , Lymphocytes (%) (Auto) , Monocytes (%) (Auto) , Eosinophils (%) (Auto) , Basophils (%) (Auto) , Differential Total Cells Counted 100, Neutrophils % (Manual) 88H, Lymphocytes % (Manual) 8L, Monocytes % (Manual) 4, Eosinophils % (Manual) 0, Basophils % ( Manual) 0, Band Neutrophils 0, Platelet Estimate DecreasedL, Platelet Morphology Normal, Red Blood Cell Morphology Normal, Activated Partial Thromboplast Time 67H, Sodium Level 146H, Potassium Level 4.0, Chloride Level 112H, Carbon Dioxide Level 26, Anion Gap 8, Blood Urea Nitrogen 16, Creatinine 0.9, Estimat Glomerular Filtration Rate , Glucose Level 110H, Calcium Level 9.0 07/30/18 10:25: Vancomycin Level Trough 9.7 Height (Feet): 5 Height (Inches): 2.00 Weight (Pounds): 102 Objective Elderly woman NCAT, (+) NGT supple CTA RRR Soft NT ND no edema OBS Ginna Landeros MD Jul 30, 2018 16:33
--- NOTE | 2018-07-30 17:17 | General Progress Note ---
Assessment/Plan Status: stable Assessment/Plan # DVT of the left leg -- superifcial femoral vein, new onset, has not had these symptoms before --> Remains on heparin gtt --> monitor platelet count closely --> appreciate Dr. Parekh recs --> if >50k, okay to continue anticoag, however if drops consider ivc filter --> Plt count at 60k # Thrombocytopenia --> unknown cause, first time here at [facility], do not have baseline, could be reactive --> Cont to monitor plt count for improvement --> US abd: Mild left hydronephrosis. Possible left renal calyceal calculi. Negative for gallstones or dilated ducts Debris noted within the bladder --> Hep panel and HIV are both negative --> may consider bone marrow biopsy given persistent but can do as outpatient --> Current plt count 60k # Anemia of chronic disease --> Cont to monitor for stability --> Hgb goal above 7. # Dehydration # DM OOC --> A1C goal less than 7 --> Cont on insulin # UTI. --> ID is following. Appreciate recs. --> Pt on IV abx. --> Cultures - gram negative bacillus Greatly appreciate consultation! Subjective Hematologic/Lymphatic: Reports: anemia Allergies: Coded Allergies: No Known Allergies (Unverified , 07/26/18) All Systems: reviewed and negative except above Subjective Pt resting in bed. No acute events. Afebrile. H/H stable. CT chest --> Bilateral patchy basilar opacities may represent developing pneumonia, possible aspiration. Objective Last 24 Hour Vital Signs Date Time Temp Pulse Resp B/P (MAP) Pulse Ox O2 Delivery O2 Flow Rate FiO2 07/30/18 16:05 97.2 76 18 125/67 (86) 98 97.2 07/30/18 16:00 77 07/30/18 12:00 98.2 72 16 115/65 (82) 97 98.2 07/30/18 12:00 71 07/30/18 09:10 Room Air 07/30/18 08:00 97.8 72 18 113/63 (80) 96 97.8 07/30/18 08:00 79 07/30/18 04:00 95 07/30/18 04:00 98.2 90 18 153/80 (104) 97 98.2 07/30/18 00:00 72 07/30/18 00:00 98.1 74 18 127/66 (86) 98 98.1 07/29/18 21:00 Room Air 07/29/18 21:00 139/71 (93) 07/29/18 20:00 97.9 89 20 191/73 (112) 97 97.9 07/29/18 20:00 80 Intake and Output 07/29/18 07/30/18 18:59 06:59 Intake Total 998.376 ml Balance 998.376 ml IV Total 998.376 ml # Voids 1 4 # Bowel Movements 1 Laboratory Tests 07/30/18 04:06: White Blood Count 4.8, Red Blood Count 3.13L, Hemoglobin 9.4L, Hematocrit 28.6L , Mean Corpuscular Volume 92, Mean Corpuscular Hemoglobin 30.0, Mean Corpuscular Hemoglobin Concent 32.8, Red Cell Distribution Width 13.7, Platelet Count 60L, Mean Platelet Volume 10.5H, Neutrophils (%) (Auto) , Lymphocytes (%) (Auto) , Monocytes (%) (Auto) , Eosinophils (%) (Auto) , Basophils (%) (Auto) , Differential Total Cells Counted 100, Neutrophils % (Manual) 88H, Lymphocytes % (Manual) 8L, Monocytes % (Manual) 4, Eosinophils % (Manual) 0, Basophils % ( Manual) 0, Band Neutrophils 0, Platelet Estimate DecreasedL, Platelet Morphology Normal, Red Blood Cell Morphology Normal, Activated Partial Thromboplast Time 67H, Sodium Level 146H, Potassium Level 4.0, Chloride Level 112H, Carbon Dioxide Level 26, Anion Gap 8, Blood Urea Nitrogen 16, Creatinine 0.9, Estimat Glomerular Filtration Rate , Glucose Level 110H, Calcium Level 9.0 07/30/18 10:25: Vancomycin Level Trough 9.7 Height (Feet): 5 Height (Inches): 2.00 Weight (Pounds): 102 General Appearance: no apparent distress EENT: PERRL/EOMI Neck: normal alignment Cardiovascular: normal peripheral pulses Respiratory/Chest: no respiratory distress Abdomen: soft Dewayne Gayle MD Jul 30, 2018 17:17
[2018-07-30 20:00] VITALS: BP 131/77
--- NOTE | 2018-07-30 20:56 | Pulmonology Progress Note ---
Assessment/Plan Assessment/Plan PROBLEM LIST: 1. Extensive left superficial vein DVT (this is a deep vein). 2. Likely pulmonary embolism as well. 3. Hypoxemia. 4. Gram-negative bacillus UTI. 5. GPC bacteremia 6. Hypernatremia and hypokalemia. 7. Protein-calorie malnutrition. 8. Likely underlying dementia versus encephalopathy. 9. HTn. HLD 10. Thrombocytopenia. Normocytic anemia. TREATMENT PLAN: 1. Given the patient will require anticoagulation for DVT, I would not workup PE any further. 2. Monitor volumes & renal function, IVF per renal 3. Continue A/C per heme, if unablet o AC, would Consider for IVCF 4. F/U hypercoag w/u per here 5. Abx per ID 6. Aspiration precautions 7. Full Code, continue to discuss goals of care. Subjective ROS Limited/Unobtainable: Yes Allergies: Coded Allergies: No Known Allergies (Unverified , 07/26/18) Subjective nonverbal refusing po no distress tolerating TF no bleeding not getting oob Objective Last 24 Hour Vital Signs Date Time Temp Pulse Resp B/P (MAP) Pulse Ox O2 Delivery O2 Flow Rate FiO2 07/30/18 16:05 97.2 76 18 125/67 (86) 98 97.2 07/30/18 16:00 77 07/30/18 12:00 98.2 72 16 115/65 (82) 97 98.2 07/30/18 12:00 71 07/30/18 09:10 Room Air 07/30/18 08:00 97.8 72 18 113/63 (80) 96 97.8 07/30/18 08:00 79 07/30/18 04:00 95 07/30/18 04:00 98.2 90 18 153/80 (104) 97 98.2 07/30/18 00:00 72 07/30/18 00:00 98.1 74 18 127/66 (86) 98 98.1 07/29/18 21:00 Room Air 07/29/18 21:00 139/71 (93) Intake and Output 07/29/18 07/30/18 18:59 06:59 Intake Total 998.376 ml Balance 998.376 ml IV Total 998.376 ml # Voids 1 4 # Bowel Movements 1 General Appearance: cachetic HEENT: normocephalic, atraumatic Respiratory/Chest: lungs clear Cardiovascular: normal rate, regularly irregular Abdomen: no organomegaly Extremities: no clubbing Skin: no rash Laboratory Tests 07/30/18 04:06: White Blood Count 4.8, Red Blood Count 3.13L, Hemoglobin 9.4L, Hematocrit 28.6L , Mean Corpuscular Volume 92, Mean Corpuscular Hemoglobin 30.0, Mean Corpuscular Hemoglobin Concent 32.8, Red Cell Distribution Width 13.7, Platelet Count 60L, Mean Platelet Volume 10.5H, Neutrophils (%) (Auto) , Lymphocytes (%) (Auto) , Monocytes (%) (Auto) , Eosinophils (%) (Auto) , Basophils (%) (Auto) , Differential Total Cells Counted 100, Neutrophils % (Manual) 88H, Lymphocytes % (Manual) 8L, Monocytes % (Manual) 4, Eosinophils % (Manual) 0, Basophils % ( Manual) 0, Band Neutrophils 0, Platelet Estimate DecreasedL, Platelet Morphology Normal, Red Blood Cell Morphology Normal, Activated Partial Thromboplast Time 67H, Sodium Level 146H, Potassium Level 4.0, Chloride Level 112H, Carbon Dioxide Level 26, Anion Gap 8, Blood Urea Nitrogen 16, Creatinine 0.9, Estimat Glomerular Filtration Rate , Glucose Level 110H, Calcium Level 9.0 07/30/18 10:25: Vancomycin Level Trough 9.7 Current Medications Medications (Trade) Dose Ordered Sig/Laure Route PRN Reason Start Time Stop Time Status Last Admin Dose Admin Acetaminophen (Tylenol) 650 mg Q4H PRN ORAL Fever/Headache/Mild Pain 07/26/18 16:45 08/25/18 16:44 Aspirin (Ecotrin) 81 mg DAILY ORAL 07/27/18 09:00 08/26/18 08:59 07/29/18 08:24 Ceftriaxone Sodium 1 gm/ Dextrose 55 ml @ 110 mls/hr DAILY IVPB 07/29/18 15:00 08/05/18 14:59 07/30/18 08:24 Dextrose (Dextrose 50%) 25 ml Q30M PRN IV Hypoglycemia 07/26/18 15:15 08/25/18 15:14 Dextrose (Dextrose 50%) 50 ml Q30M PRN IV Hypoglycemia 07/26/18 15:15 08/25/18 15:14 Famotidine (Pepcid) 20 mg BID ORAL 07/26/18 18:00 08/25/18 17:59 07/30/18 19:37 Heparin Sodium/ Dextrose 500 ml @ 14.887 mls/ hr ADJUST PER PROTOCOL IV 07/29/18 01:30 08/28/18 01:29 07/30/18 01:30 Insulin Aspart (NovoLOG) BEFORE MEALS AND HS SUBQ 07/26/18 16:30 08/25/18 16:29 07/30/18 12:10 Quetiapine Fumarate (SEROquel) 12.5 mg Q4H PRN ORAL agitation 07/27/18 11:15 08/26/18 11:14 Quetiapine Fumarate (SEROquel) 25 mg Q12HR ORAL 07/27/18 10:40 08/26/18 10:39 07/30/18 08:24 Sodium 1,000 ml @ 50 mls/hr Q20H IV 07/30/18 16:17 08/26/18 16:16 07/30/18 16:38 Celia Becerra DO Jul 30, 2018 20:56
--- NOTE | 2018-07-30 21:23 | General Progress Note ---
Assessment/Plan Problem List: (1) Dementia with behavioral disturbance ICD Codes: F03.91 - Unspecified dementia with behavioral disturbance SNOMED: 8770928977020 (2) Malnutrition ICD Codes: E46 - Unspecified protein-calorie malnutrition SNOMED: 51134660 (3) Sepsis ICD Codes: A41.9 - Sepsis, unspecified organism SNOMED: 73515020 (4) Dehydration ICD Codes: E86.0 - Dehydration SNOMED: 32606907 (5) UTI (urinary tract infection) ICD Codes: N39.0 - Urinary tract infection, site not specified SNOMED: 07456036 Status: progressing Assessment/Plan confused abx per id uti hydronephrosis kidney stone? consulted urology Subjective ROS Limited/Unobtainable: Yes Allergies: Coded Allergies: No Known Allergies (Unverified , 07/26/18) Objective Last 24 Hour Vital Signs Date Time Temp Pulse Resp B/P (MAP) Pulse Ox O2 Delivery O2 Flow Rate FiO2 07/30/18 16:05 97.2 76 18 125/67 (86) 98 97.2 07/30/18 16:00 77 07/30/18 12:00 98.2 72 16 115/65 (82) 97 98.2 07/30/18 12:00 71 07/30/18 09:10 Room Air 07/30/18 08:00 97.8 72 18 113/63 (80) 96 97.8 07/30/18 08:00 79 07/30/18 04:00 95 07/30/18 04:00 98.2 90 18 153/80 (104) 97 98.2 07/30/18 00:00 72 07/30/18 00:00 98.1 74 18 127/66 (86) 98 98.1 Intake and Output 07/29/18 07/30/18 19:00 07:00 Intake Total 855.989 ml 34.887 ml Balance 855.989 ml 34.887 ml IV Total 855.989 ml 14.887 ml Tube Feeding 20 ml # Voids 1 4 # Bowel Movements 1 Laboratory Tests 07/30/18 04:06: White Blood Count 4.8, Red Blood Count 3.13L, Hemoglobin 9.4L, Hematocrit 28.6L , Mean Corpuscular Volume 92, Mean Corpuscular Hemoglobin 30.0, Mean Corpuscular Hemoglobin Concent 32.8, Red Cell Distribution Width 13.7, Platelet Count 60L, Mean Platelet Volume 10.5H, Neutrophils (%) (Auto) , Lymphocytes (%) (Auto) , Monocytes (%) (Auto) , Eosinophils (%) (Auto) , Basophils (%) (Auto) , Differential Total Cells Counted 100, Neutrophils % (Manual) 88H, Lymphocytes % (Manual) 8L, Monocytes % (Manual) 4, Eosinophils % (Manual) 0, Basophils % ( Manual) 0, Band Neutrophils 0, Platelet Estimate DecreasedL, Platelet Morphology Normal, Red Blood Cell Morphology Normal, Activated Partial Thromboplast Time 67H, Sodium Level 146H, Potassium Level 4.0, Chloride Level 112H, Carbon Dioxide Level 26, Anion Gap 8, Blood Urea Nitrogen 16, Creatinine 0.9, Estimat Glomerular Filtration Rate , Glucose Level 110H, Calcium Level 9.0 07/30/18 10:25: Vancomycin Level Trough 9.7 Height (Feet): 5 Height (Inches): 2.00 Weight (Pounds): 102 Neck: supple Cardiovascular: normal rate Respiratory/Chest: lungs clear Abdomen: soft Yi Asencio MD Jul 30, 2018 21:23
[2018-07-31] VITALS: BP 128/64
[2018-07-31 04:00] VITALS: BP 131/69
[2018-07-31] MEDS: Heparin 25,000u/D5W 500ml 500 ML IV SCH ×2 (05:01→10:05)
[2018-07-31] MEDS: NovoLOG Insulin Flexpen SUBQ SCH ×4 (06:30→22:06)
[2018-07-31 08:00] VITALS: BP 156/79
[2018-07-31] MEDS: Aspirin Baby 81mg NG SCH (08:38)
[2018-07-31] MEDS: cefTRIAXone 1 GM in D5W 55 ML IVPB SCH (08:39)
--- NOTE | 2018-07-31 08:53 | Nephrology Progress Note ---
Assessment/Plan Problem List: (1) UTI (urinary tract infection) (2) Dehydration (3) Hypernatremia (4) Hypokalemia (5) Malnutrition Assessment Dehydration- Hypernatremia DM OOC Anemia UTI Malnutrition Plan no labs today- 1/2 NS KCL as needed check labs Per consultants Subjective ROS Limited/Unobtainable: Yes Objective Objective Last 24 Hour Vital Signs Date Time Temp Pulse Resp B/P (MAP) Pulse Ox O2 Delivery O2 Flow Rate FiO2 07/31/18 04:00 97.3 76 18 131/69 (89) 100 97.3 07/31/18 04:00 71 07/31/18 00:00 76 07/31/18 00:00 98.2 80 20 128/64 (85) 98 98.2 07/30/18 21:00 Room Air 07/30/18 20:00 97.7 81 18 131/77 (95) 94 97.7 07/30/18 20:00 81 07/30/18 16:05 97.2 76 18 125/67 (86) 98 97.2 07/30/18 16:00 77 07/30/18 12:00 98.2 72 16 115/65 (82) 97 98.2 07/30/18 12:00 71 07/30/18 09:10 Room Air Intake and Output 07/30/18 07/31/18 19:00 07:00 Intake Total 674.435 ml Output Total 3 ml Balance 674.435 ml -3 ml IV Total 584.435 ml Tube Feeding 90 ml Output Urine Total 2 ml Stool Total 1 ml # Voids 4 # Bowel Movements 2 Laboratory Tests 07/30/18 10:25: Vancomycin Level Trough 9.7 07/31/18 03:45: Activated Partial Thromboplast Time 93H Height (Feet): 5 Height (Inches): 2.00 Weight (Pounds): 102 General Appearance: no apparent distress, lethargic Respiratory/Chest: decreased breath sounds Abdomen: soft Objective no change Parvez Bergman MD Jul 31, 2018 08:53
--- NOTE | 2018-07-31 10:39 | Pulmonology Progress Note ---
Assessment/Plan Assessment/Plan PROBLEM LIST: 1. Extensive left superficial vein DVT (this is a deep vein). 2. Likely pulmonary embolism as well. 3. Hypoxemia. 4. Gram-negative bacillus UTI. 5. GPC bacteremia 6. Hypernatremia and hypokalemia. 7. Protein-calorie malnutrition. 8. Likely underlying dementia versus encephalopathy. 9. HTn. HLD 10. Thrombocytopenia. Normocytic anemia. TREATMENT PLAN: 1. Given the patient will require anticoagulation for DVT, I would not workup PE any further. 2. Monitor volumes & renal function, IVF per renal 3. Continue A/C per heme, if unablet o AC, would Consider for IVCF 4. F/U hypercoag w/u per here 5. Abx per ID 6. Aspiration precautions 7. Full Code, continue to discuss goals of care. Subjective ROS Limited/Unobtainable: Yes Allergies: Coded Allergies: No Known Allergies (Unverified , 07/26/18) Subjective no change from yesterday nonverbal refusing po no distress tolerating TF no bleeding not getting oob Objective Last 24 Hour Vital Signs Date Time Temp Pulse Resp B/P (MAP) Pulse Ox O2 Delivery O2 Flow Rate FiO2 07/31/18 09:00 Room Air 07/31/18 08:00 98.0 79 18 156/79 (104) 95 98.0 07/31/18 08:00 76 07/31/18 04:00 97.3 76 18 131/69 (89) 100 97.3 07/31/18 04:00 71 07/31/18 00:00 76 07/31/18 00:00 98.2 80 20 128/64 (85) 98 98.2 07/30/18 21:00 Room Air 07/30/18 20:00 97.7 81 18 131/77 (95) 94 97.7 07/30/18 20:00 81 07/30/18 16:05 97.2 76 18 125/67 (86) 98 97.2 07/30/18 16:00 77 07/30/18 12:00 98.2 72 16 115/65 (82) 97 98.2 07/30/18 12:00 71 Intake and Output 07/30/18 07/31/18 19:00 07:00 Intake Total 674.435 ml Output Total 3 ml Balance 674.435 ml -3 ml IV Total 584.435 ml Tube Feeding 90 ml Output Urine Total 2 ml Stool Total 1 ml # Voids 4 # Bowel Movements 2 General Appearance: cachetic HEENT: atraumatic, anicteric Respiratory/Chest: rhonchi Cardiovascular: normal rate, regular rhythm Abdomen: soft, non tender, no organomegaly Laboratory Tests 07/31/18 03:45: Activated Partial Thromboplast Time 93H Current Medications Medications (Trade) Dose Ordered Sig/Laure Route PRN Reason Start Time Stop Time Status Last Admin Dose Admin Acetaminophen (Tylenol) 650 mg Q4H PRN ORAL Fever/Headache/Mild Pain 07/26/18 16:45 08/25/18 16:44 Aspirin (ASA) 81 mg DAILY NG 07/31/18 09:00 08/30/18 08:59 07/31/18 08:38 Ceftriaxone Sodium 1 gm/ Dextrose 55 ml @ 110 mls/hr DAILY IVPB 07/29/18 15:00 08/05/18 14:59 07/31/18 08:39 Dextrose (Dextrose 50%) 25 ml Q30M PRN IV Hypoglycemia 07/26/18 15:15 08/25/18 15:14 Dextrose (Dextrose 50%) 50 ml Q30M PRN IV Hypoglycemia 07/26/18 15:15 08/25/18 15:14 Famotidine (Pepcid) 20 mg BID ORAL 07/26/18 18:00 08/25/18 17:59 07/31/18 08:38 Heparin Sodium/ Dextrose 500 ml @ 14.887 mls/ hr ADJUST PER PROTOCOL IV 07/29/18 01:30 08/28/18 01:29 07/31/18 10:05 Insulin Aspart (NovoLOG) BEFORE MEALS AND HS SUBQ 07/26/18 16:30 08/25/18 16:29 07/30/18 12:10 Quetiapine Fumarate (SEROquel) 12.5 mg Q4H PRN ORAL agitation 07/27/18 11:15 08/26/18 11:14 Quetiapine Fumarate (SEROquel) 25 mg Q12HR ORAL 07/27/18 10:40 08/26/18 10:39 07/31/18 08:38 Sodium 1,000 ml @ 50 mls/hr Q20H IV 07/30/18 16:17 08/26/18 16:16 10/20/18 16:38 Celia Becerra DO Jul 31, 2018 10:39
--- NOTE | 2018-07-31 11:06 | Infectious Diseases Prog Note ---
Assessment/Plan Assessment/Plan A; Sepsis/ SIRS Bacteremia, likel;y contamination UTI with E.coli DVT of left leg, ? PE DM type 2 Anemia Thrombocytopenia Leukopenia P; Continue Rocephin Will f/u cultures Subjective Gastrointestinal/Abdominal: Reports: other - NG tube was placed Neurologic: Reports: confusion, other - on restraint Allergies: Coded Allergies: No Known Allergies (Unverified , 07/26/18) Objective Vital Signs Last 24 Hour Vital Signs Date Time Temp Pulse Resp B/P (MAP) Pulse Ox O2 Delivery O2 Flow Rate FiO2 07/31/18 09:00 Room Air 07/31/18 08:00 98.0 79 18 156/79 (104) 95 98.0 07/31/18 08:00 76 07/31/18 04:00 97.3 76 18 131/69 (89) 100 97.3 07/31/18 04:00 71 07/31/18 00:00 76 07/31/18 00:00 98.2 80 20 128/64 (85) 98 98.2 07/30/18 21:00 Room Air 07/30/18 20:00 97.7 81 18 131/77 (95) 94 97.7 07/30/18 20:00 81 07/30/18 16:05 97.2 76 18 125/67 (86) 98 97.2 07/30/18 16:00 77 07/30/18 12:00 98.2 72 16 115/65 (82) 97 98.2 07/30/18 12:00 71 Height (Feet): 5 Height (Inches): 2.00 Weight (Pounds): 102 General Appearance: no acute distress HEENT: mucous membranes moist Respiratory/Chest: lungs clear Cardiovascular: normal rate Abdomen: soft, non tender, other - NG tube feeding Neurologic/Psychiatric: alert, disoriented, other - awake Laboratory Tests Test 07/31/18 03:45 Activated Partial Thromboplast Time 93 SEC (23-33) H Current Medications Medications (Trade) Dose Ordered Sig/Laure Route PRN Reason Start Time Stop Time Status Last Admin Dose Admin Acetaminophen (Tylenol) 650 mg Q4H PRN ORAL Fever/Headache/Mild Pain 07/26/18 16:45 08/25/18 16:44 Aspirin (ASA) 81 mg DAILY NG 07/31/18 09:00 08/30/18 08:59 07/31/18 08:38 Ceftriaxone Sodium 1 gm/ Dextrose 55 ml @ 110 mls/hr DAILY IVPB 07/29/18 15:00 08/05/18 14:59 07/31/18 08:39 Dextrose (Dextrose 50%) 25 ml Q30M PRN IV Hypoglycemia 07/26/18 15:15 08/25/18 15:14 Dextrose (Dextrose 50%) 50 ml Q30M PRN IV Hypoglycemia 07/26/18 15:15 08/25/18 15:14 Famotidine (Pepcid) 20 mg BID ORAL 07/26/18 18:00 08/25/18 17:59 07/31/18 08:38 Heparin Sodium/ Dextrose 500 ml @ 14.887 mls/ hr ADJUST PER PROTOCOL IV 07/29/18 01:30 08/28/18 01:29 07/31/18 10:05 Insulin Aspart (NovoLOG) BEFORE MEALS AND HS SUBQ 07/26/18 16:30 08/25/18 16:29 07/30/18 12:10 Quetiapine Fumarate (SEROquel) 12.5 mg Q4H PRN ORAL agitation 07/27/18 11:15 08/26/18 11:14 Quetiapine Fumarate (SEROquel) 25 mg Q12HR ORAL 07/27/18 10:40 08/26/18 10:39 07/31/18 08:38 Sodium 1,000 ml @ 50 mls/hr Q20H IV 07/30/18 16:17 08/26/18 16:16 07/30/18 16:38 Shimon Card MD Jul 31, 2018 11:06
[2018-07-31 12:00] VITALS: BP 143/71
[2018-07-31] MEDS: 1/2NS w/KCl 20mEq 1000ml 1,000 ML IV SCH (12:21)
--- NOTE | 2018-07-31 13:22 | General Progress Note ---
Assessment/Plan Assessment/Plan Assessment/Plan Problems: (1) UTI (urinary tract infection) ICD Codes: N39.0 - Urinary tract infection, site not specified SNOMED: 86237638 (2) Sepsis ICD Codes: A41.9 - Sepsis, unspecified organism SNOMED: 97969987 (3) Dehydration ICD Codes: E86.0 - Dehydration SNOMED: 57317265 (4) Malnutrition ICD Codes: E46 - Unspecified protein-calorie malnutrition SNOMED: 60745645 (5) Dementia with behavioral disturbance ICD Codes: F03.91 - Unspecified dementia with behavioral disturbance SNOMED: 8102190188784 Status: not improved, unchanged Assessment/Plan NGTFs per RD PEG if family agrees prn transfusions ppi abx zofran prn fu labs Subjective Allergies: Coded Allergies: No Known Allergies (Unverified , 07/26/18) Subjective Above noted minimally interactive tolerating TF Objective Last 24 Hour Vital Signs Date Time Temp Pulse Resp B/P (MAP) Pulse Ox O2 Delivery O2 Flow Rate FiO2 07/31/18 12:00 97.4 75 18 143/71 (95) 100 97.4 07/31/18 12:00 74 07/31/18 09:00 Room Air 07/31/18 08:00 98.0 79 18 156/79 (104) 95 98.0 07/31/18 08:00 76 07/31/18 04:00 97.3 76 18 131/69 (89) 100 97.3 07/31/18 04:00 71 07/31/18 00:00 76 07/31/18 00:00 98.2 80 20 128/64 (85) 98 98.2 07/30/18 21:00 Room Air 07/30/18 20:00 97.7 81 18 131/77 (95) 94 97.7 07/30/18 20:00 81 07/30/18 16:05 97.2 76 18 125/67 (86) 98 97.2 07/30/18 16:00 77 Intake and Output 07/30/18 07/31/18 19:00 07:00 Intake Total 674.435 ml Output Total 3 ml Balance 674.435 ml -3 ml IV Total 584.435 ml Tube Feeding 90 ml Output Urine Total 2 ml Stool Total 1 ml # Voids 4 # Bowel Movements 2 Laboratory Tests 07/31/18 03:45: Activated Partial Thromboplast Time 93H Height (Feet): 5 Height (Inches): 2.00 Weight (Pounds): 102 Objective Elderly woman NCAT, (+) NGT supple CTA RRR Soft NT ND no edema OBS Ginna Landeros MD Jul 31, 2018 13:22
--- NOTE | 2018-07-31 13:27 | General Progress Note ---
Assessment/Plan Status: stable Assessment/Plan # DVT of the left leg -- superifcial femoral vein, new onset, has not had these symptoms before --> Remains on heparin gtt --> monitor platelet count closely --> appreciate Dr. Parekh recs --> if >50k, okay to continue anticoag, however if drops consider ivc filter --> Plt count at 60k --> APPT 93 # Thrombocytopenia --> unknown cause, first time here at [facility], do not have baseline, could be reactive --> Cont to monitor plt count for improvement --> US abd: Mild left hydronephrosis. Possible left renal calyceal calculi. Negative for gallstones or dilated ducts Debris noted within the bladder --> Hep panel and HIV are both negative --> may consider bone marrow biopsy given persistent but can do as outpatient --> Current plt count 60k # Anemia of chronic disease --> Cont to monitor for stability --> Hgb goal above 7. Transfuse prn. --> Currently stable. # Dehydration. IVF. # DM OOC --> A1C goal less than 7 --> Cont on insulin # UTI. --> ID is following. Appreciate recs. --> Pt on IV abx. --> Cultures - gram negative bacillus Greatly appreciate consultation! Subjective Date patient seen: Jul 31, 2018 ROS Limited/Unobtainable: Yes Hematologic/Lymphatic: Reports: anemia Allergies: Coded Allergies: No Known Allergies (Unverified , 07/26/18) Subjective APPT came back at 93, no changes to Heparin drip. Objective Last 24 Hour Vital Signs Date Time Temp Pulse Resp B/P (MAP) Pulse Ox O2 Delivery O2 Flow Rate FiO2 07/31/18 12:00 97.4 75 18 143/71 (95) 100 97.4 07/31/18 12:00 74 07/31/18 09:00 Room Air 07/31/18 08:00 98.0 79 18 156/79 (104) 95 98.0 07/31/18 08:00 76 07/31/18 04:00 97.3 76 18 131/69 (89) 100 97.3 07/31/18 04:00 71 07/31/18 00:00 76 07/31/18 00:00 98.2 80 20 128/64 (85) 98 98.2 07/30/18 21:00 Room Air 07/30/18 20:00 97.7 81 18 131/77 (95) 94 97.7 07/30/18 20:00 81 07/30/18 16:05 97.2 76 18 125/67 (86) 98 97.2 07/30/18 16:00 77 Intake and Output 07/30/18 07/31/18 19:00 07:00 Intake Total 674.435 ml Output Total 3 ml Balance 674.435 ml -3 ml IV Total 584.435 ml Tube Feeding 90 ml Output Urine Total 2 ml Stool Total 1 ml # Voids 4 # Bowel Movements 2 Laboratory Tests 07/31/18 03:45: Activated Partial Thromboplast Time 93H Height (Feet): 5 Height (Inches): 2.00 Weight (Pounds): 102 General Appearance: no apparent distress EENT: PERRL/EOMI Neck: normal alignment Cardiovascular: normal peripheral pulses Respiratory/Chest: no respiratory distress Abdomen: soft Dewayne Gayle MD Jul 31, 2018 13:27
[2018-07-31 16:00] VITALS: BP 133/73
[2018-07-31 20:00] VITALS: BP 123/86
--- NOTE | 2018-07-31 21:25 | General Progress Note ---
Assessment/Plan Problem List: (1) Dementia with behavioral disturbance ICD Codes: F03.91 - Unspecified dementia with behavioral disturbance SNOMED: 2691010486202 (2) Malnutrition ICD Codes: E46 - Unspecified protein-calorie malnutrition SNOMED: 37215086 (3) Sepsis ICD Codes: A41.9 - Sepsis, unspecified organism SNOMED: 53818363 (4) Dehydration ICD Codes: E86.0 - Dehydration SNOMED: 62431193 (5) UTI (urinary tract infection) ICD Codes: N39.0 - Urinary tract infection, site not specified SNOMED: 80851704 Status: progressing Assessment/Plan confused no cough obs uti hydronephrosis kidney stone? consulted urology Subjective ROS Limited/Unobtainable: Yes Allergies: Coded Allergies: No Known Allergies (Unverified , 07/26/18) Objective Last 24 Hour Vital Signs Date Time Temp Pulse Resp B/P (MAP) Pulse Ox O2 Delivery O2 Flow Rate FiO2 07/31/18 20:00 98.9 84 19 123/86 (98) 99 98.9 07/31/18 20:00 83 07/31/18 16:00 97.2 76 17 133/73 (93) 99 97.2 07/31/18 16:00 76 07/31/18 12:00 97.4 75 18 143/71 (95) 100 97.4 07/31/18 12:00 74 07/31/18 09:00 Room Air 07/31/18 08:00 98.0 79 18 156/79 (104) 95 98.0 07/31/18 08:00 76 07/31/18 04:00 97.3 76 18 131/69 (89) 100 97.3 07/31/18 04:00 71 07/31/18 00:00 76 07/31/18 00:00 98.2 80 20 128/64 (85) 98 98.2 Intake and Output 07/30/18 07/31/18 18:59 06:59 Intake Total 709.322 ml Output Total 3 ml Balance 709.322 ml -3 ml IV Total 599.322 ml Tube Feeding 110 ml Output Urine Total 2 ml Stool Total 1 ml # Voids 4 # Bowel Movements 2 Laboratory Tests 07/31/18 03:45: Activated Partial Thromboplast Time 93H Height (Feet): 5 Height (Inches): 2.00 Weight (Pounds): 102 General Appearance: confused Cardiovascular: normal rate Respiratory/Chest: lungs clear Yi Asencio MD Jul 31, 2018 21:25
--- NOTE | 2018-07-31 21:42 | General Progress Note ---
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 2. Dementia. PLAN: 1. We will continue the Seroquel. 2. Provide reality orientation and supportive therapy. Subjective Date patient seen: Jul 31, 2018 Neurologic/Psychiatric: Reports: anxiety, emotional problems Allergies: Coded Allergies: No Known Allergies (Unverified , 07/26/18) Objective Last 24 Hour Vital Signs Date Time Temp Pulse Resp B/P (MAP) Pulse Ox O2 Delivery O2 Flow Rate FiO2 07/31/18 20:00 98.9 84 19 123/86 (98) 99 98.9 07/31/18 20:00 83 07/31/18 16:00 97.2 76 17 133/73 (93) 99 97.2 07/31/18 16:00 76 07/31/18 12:00 97.4 75 18 143/71 (95) 100 97.4 07/31/18 12:00 74 07/31/18 09:00 Room Air 07/31/18 08:00 98.0 79 18 156/79 (104) 95 98.0 07/31/18 08:00 76 07/31/18 04:00 97.3 76 18 131/69 (89) 100 97.3 07/31/18 04:00 71 07/31/18 00:00 76 07/31/18 00:00 98.2 80 20 128/64 (85) 98 98.2 Intake and Output 07/30/18 07/31/18 18:59 06:59 Intake Total 709.322 ml Output Total 3 ml Balance 709.322 ml -3 ml IV Total 599.322 ml Tube Feeding 110 ml Output Urine Total 2 ml Stool Total 1 ml # Voids 4 # Bowel Movements 2 Laboratory Tests 07/31/18 03:45: Activated Partial Thromboplast Time 93H Height (Feet): 5 Height (Inches): 2.00 Weight (Pounds): 102 General Appearance: no apparent distress, alert, confused Kimmy Chavez MD Jul 31, 2018 21:42
--- NOTE | 2018-07-31 21:42 | General Progress Note ---
Assessment/Plan Problem List: (1) Dementia with behavioral disturbance ICD Codes: F03.91 - Unspecified dementia with behavioral disturbance SNOMED: 6922858769014 (2) Encephalopathy due to metabolic factor or toxin SNOMED: 428973854 Assessment/Plan 1. 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 2. Dementia. PLAN: 1. We will continue the Seroquel. 2. Provide reality orientation and supportive therapy. Subjective Date patient seen: Jul 30, 2018 Neurologic/Psychiatric: Reports: anxiety Allergies: Coded Allergies: No Known Allergies (Unverified , 07/26/18) Objective Last 24 Hour Vital Signs Date Time Temp Pulse Resp B/P (MAP) Pulse Ox O2 Delivery O2 Flow Rate FiO2 07/31/18 20:00 98.9 84 19 123/86 (98) 99 98.9 07/31/18 20:00 83 07/31/18 16:00 97.2 76 17 133/73 (93) 99 97.2 07/31/18 16:00 76 07/31/18 12:00 97.4 75 18 143/71 (95) 100 97.4 07/31/18 12:00 74 07/31/18 09:00 Room Air 07/31/18 08:00 98.0 79 18 156/79 (104) 95 98.0 07/31/18 08:00 76 07/31/18 04:00 97.3 76 18 131/69 (89) 100 97.3 07/31/18 04:00 71 07/31/18 00:00 76 07/31/18 00:00 98.2 80 20 128/64 (85) 98 98.2 Intake and Output 07/30/18 07/31/18 18:59 06:59 Intake Total 709.322 ml Output Total 3 ml Balance 709.322 ml -3 ml IV Total 599.322 ml Tube Feeding 110 ml Output Urine Total 2 ml Stool Total 1 ml # Voids 4 # Bowel Movements 2 Laboratory Tests 07/31/18 03:45: Activated Partial Thromboplast Time 93H Height (Feet): 5 Height (Inches): 2.00 Weight (Pounds): 102 Kimmy Chavez MD Jul 31, 2018 21:42
--- NOTE | 2018-07-31 22:23 | Diagnostic Imaging Report ---
APPROVED REPORT CPT Code: 02413 Present Symptoms Comments: BILATERAL LEGS PAIN. RIGHT LEG: Venous imaging reveals a patent deep venous system. There is no evidence of thrombus within the femoral, popliteal or tibial segments. The greater saphenous vein is also within normal limits. Doppler indicates normal spontaneous flow within these segments. LEFT LEG: Venous imaging reveals acute thrombus in the superficial femoral vein. Imaging also reveals patency of the common femoral and popliteal veins. Calf veins not visualized due to open wound. Greater saphenous vein also within normal limits.
[2018-08-01] VITALS: BP 138/71
[2018-08-01 04:00] VITALS: BP 153/77
[2018-08-01 04:18] LABS: HEMATOCRIT 25.4 % (37.0-47.0); HEMOGLOBIN 8.6 G/DL (12.0-16.0); MEAN CORPUSCULAR VOLUME 88 FL (80-99); PLATELET COUNT 58 K/UL (150-450); RED BLOOD COUNT 2.87 M/UL (4.20-5.40); RED CELL DISTRIBUTION WIDTH 13.6 % (11.6-14.8); WHITE BLOOD COUNT 3.3 K/UL (4.8-10.8)
[2018-08-01 04:43] LABS: ALANINE AMINOTRANSFERASE 27 U/L (12-78); ALBUMIN/GLOBULIN RATIO 0.5 (1.0-2.7); ALKALINE PHOSPHATASE 78 U/L (46-116); ANION GAP 7 mmol/L (5-15); ASPARTATE AMINO TRANSFERASE 31 U/L (15-37); BILIRUBIN,TOTAL 0.4 MG/DL (0.2-1.0); BLOOD UREA NITROGEN 9 mg/dL (7-18); CALCIUM 8.6 MG/DL (8.5-10.1); CARBON DIOXIDE 26 MMOL/L (21-32); CHLORIDE 110 MMOL/L (98-107); CREATININE 0.7 MG/DL (0.55-1.30); PHOSPHORUS 3.1 MG/DL (2.5-4.9); POTASSIUM 3.3 MMOL/L (3.5-5.1); SODIUM 143 MMOL/L (136-145)
[2018-08-01] MEDS: NovoLOG Insulin Flexpen SUBQ SCH ×4 (05:27→21:20)
[2018-08-01] MEDS: 1/2NS w/KCl 20mEq 1000ml 1,000 ML IV SCH (05:53)
[2018-08-01 08:00] VITALS: BP 135/75
[2018-08-01] MEDS: Aspirin Baby 81mg NG SCH (08:34)
[2018-08-01] MEDS: cefTRIAXone 1 GM in D5W 55 ML IVPB SCH (08:34)
--- NOTE | 2018-08-01 08:44 | General Progress Note ---
Assessment/Plan Assessment/Plan # DVT of the left leg -- superifcial femoral vein which is a deep vein, new onset, has not had these symptoms before --> discussed with renal, have stopped heparin gtt --> started on lovenox and coumadin --> INR goal 2-3 --> if plts drop any further, consider a IVC filter placement --> monitor platelet count closely --> appreciate Dr. Parekh and Mariam recs --> Plt count at 60k --> APPT 93 # Pancytopenia --> at this time, the cause unknown, this is her first time here at [facility], do not have baseline, could be reactive versus med related --> Cont to monitor plt count for improvement --> US abd: Mild left hydronephrosis. Possible left renal calyceal calculi. Negative for gallstones or dilated ducts Debris noted within the bladder --> Hep panel and HIV are both negative --> given extremely poor condition do not recommend a bone marrow biopsy, have discussed with family 08/01 with --> Current plt count 60k # Anemia of chronic disease --> Cont to monitor for stability --> Hgb goal above 7. Transfuse prn. --> Currently stable. # Dehydration. IVF has been administered # DM OOC --> A1C goal less than 7 --> Cont on insulin # UTI. --> ID is following. Appreciate recs. --> Pt on IV abx. --> Cultures - gram negative bacillus Greatly appreciate consultation! Subjective Constitutional: Denies: no symptoms, chills, diaphoresis, fever, malaise, weakness, other HEENT: Denies: no symptoms, eye pain, blurred vision, tearing, double vision, ear pain, ear discharge, nose pain, nose congestion, throat pain, throat swelling, mouth pain, mouth swelling, other Cardiovascular: Denies: no symptoms, chest pain, edema, irregular heart rate, lightheadedness, palpitations, syncope, other Respiratory: Denies: no symptoms, cough, orthopnea, shortness of breath, SOB with excertion, SOB at rest, sputum, stridor, wheezing, other Gastrointestinal/Abdominal: Denies: no symptoms, abdomen distended, abdominal pain, black stools, tarry stools, blood in stool, constipated, diarrhea, difficulty swallowing, nausea, poor appetite, poor fluid intake, rectal bleeding , vomiting, other Neurologic/Psychiatric: Denies: no symptoms, anxiety, depressed, emotional problems, headache, numbness, paresthesia, pre-existing deficit, seizure, tingling, tremors, weakness, other Endocrine: Denies: no symptoms, excessive sweating, flushing, intolerance to cold, intolerance to heat, increased hunger, increased thirst, increased urine, unexplained weight gain, unexplained weight loss, other Allergies: Coded Allergies: No Known Allergies (Unverified , 07/26/18) Subjective APPT at goal, heparin stopped and started on lovenox and coumadin Objective Last 24 Hour Vital Signs Date Time Temp Pulse Resp B/P (MAP) Pulse Ox O2 Delivery O2 Flow Rate FiO2 08/01/18 04:00 97.9 84 18 153/77 (102) 95 97.9 08/01/18 04:00 83 08/01/18 00:00 98.0 79 18 138/71 (93) 98 98.0 08/01/18 00:00 83 07/31/18 21:00 Room Air 07/31/18 20:00 98.9 84 19 123/86 (98) 99 98.9 07/31/18 20:00 83 07/31/18 16:00 97.2 76 17 133/73 (93) 99 97.2 07/31/18 16:00 76 07/31/18 12:00 97.4 75 18 143/71 (95) 100 97.4 07/31/18 12:00 74 07/31/18 09:00 Room Air Intake and Output 07/31/18 08/01/18 19:00 07:00 Intake Total 50 ml 330 ml Output Total 3 ml Balance 47 ml 330 ml Free Water 30 ml Tube Feeding 50 ml 300 ml Output Urine Total 3 ml # Voids 2 1 # Bowel Movements 5 1 Laboratory Tests 08/01/18 04:00: White Blood Count 3.3L, Red Blood Count 2.87L, Hemoglobin 8.6L, Hematocrit 25.4L , Mean Corpuscular Volume 88, Mean Corpuscular Hemoglobin 29.9, Mean Corpuscular Hemoglobin Concent 33.8, Red Cell Distribution Width 13.6, Platelet Count 58L, Mean Platelet Volume 9.6, Neutrophils (%) (Auto) , Lymphocytes (%) ( Auto) , Monocytes (%) (Auto) , Eosinophils (%) (Auto) , Basophils (%) (Auto) , Neutrophils % (Manual) [Pending], Lymphocytes % (Manual) [Pending], Platelet Estimate [Pending], Platelet Morphology [Pending], Activated Partial Thromboplast Time 89H, Sodium Level 143, Potassium Level 3.3L, Chloride Level 110H, Carbon Dioxide Level 26, Anion Gap 7, Blood Urea Nitrogen 9, Creatinine 0.7, Estimat Glomerular Filtration Rate , Glucose Level 123H, Calcium Level 8.6 , Phosphorus Level 3.1, Magnesium Level 1.7L, Total Bilirubin 0.4, Aspartate Amino Transf (AST/SGOT) 31, Alanine Aminotransferase (ALT/SGPT) 27, Alkaline Phosphatase 78, Pro-B-Type Natriuretic Peptide 587H, Total Protein 5.8L, Albumin 2.0L, Globulin 3.8, Albumin/Globulin Ratio 0.5L Height (Feet): 5 Height (Inches): 2.00 Weight (Pounds): 102 General Appearance: no apparent distress EENT: TMs normal Neck: supple Cardiovascular: regular rhythm Respiratory/Chest: lungs clear Abdomen: non tender Extremities: non-tender Edema: 1+ Leg (L), 1+ Leg (R) Dewayne Gayle MD Aug 01, 2018 08:44
[2018-08-01] MEDS: Enoxaparin Sodium 300mg/3ml vial SUBQ SCH (10:00)
--- NOTE | 2018-08-01 10:27 | Diagnostic Imaging Report ---
Indication: NG tube placement Comparison: None Single view of the abdomen obtained Findings: NG tube tip and proximal port are within the body of the stomach. Bowel gas pattern is nonspecific. The bones are osteopenic. IMPRESSION: NG tube in satisfactory position
[2018-08-01 10:39] LABS: INR 1.1 (0.9-1.1)
--- NOTE | 2018-08-01 10:44 | GI Progress Note ---
Assessment/Plan Problems: (1) UTI (urinary tract infection) ICD Codes: N39.0 - Urinary tract infection, site not specified SNOMED: 21992882 (2) Sepsis ICD Codes: A41.9 - Sepsis, unspecified organism SNOMED: 24966847 (3) Dehydration ICD Codes: E86.0 - Dehydration SNOMED: 69705349 (4) Malnutrition ICD Codes: E46 - Unspecified protein-calorie malnutrition SNOMED: 50371075 (5) Dementia with behavioral disturbance ICD Codes: F03.91 - Unspecified dementia with behavioral disturbance SNOMED: 7654316588954 Status: unchanged Status Narrative Discussed with Dr. Argueta. Assessment/Plan abdominal U/S reviewed >> normal liver echogenicity ST evaluation passed on puree Calorie count reviewed with RD >> patient is only meeting 50% of nutritional needs spoke to the son regarding possible GT placement NGTFs per RD, PEG if family agrees prn transfusions ppi abx zofran prn fu labs The patient was seen and examined at bedside and all new and available data was reviewed in the patients chart. I agree with the above findings, impression and plan. (Patient seen earlier today. Signature stamp does not reflect patient encounter time.). - Edwardo Argueta MD Subjective Subjective limited Objective Last 24 Hour Vital Signs Date Time Temp Pulse Resp B/P (MAP) Pulse Ox O2 Delivery O2 Flow Rate FiO2 08/01/18 09:00 Room Air 08/01/18 08:00 79 08/01/18 08:00 97.0 80 18 135/75 (95) 95 97.0 08/01/18 04:00 97.9 84 18 153/77 (102) 95 97.9 08/01/18 04:00 83 08/01/18 00:00 98.0 79 18 138/71 (93) 98 98.0 08/01/18 00:00 83 07/31/18 21:00 Room Air 07/31/18 20:00 98.9 84 19 123/86 (98) 99 98.9 07/31/18 20:00 83 07/31/18 16:00 97.2 76 17 133/73 (93) 99 97.2 07/31/18 16:00 76 07/31/18 12:00 97.4 75 18 143/71 (95) 100 97.4 07/31/18 12:00 74 Intake and Output 07/31/18 08/01/18 19:00 07:00 Intake Total 50 ml 330 ml Output Total 3 ml Balance 47 ml 330 ml Free Water 30 ml Tube Feeding 50 ml 300 ml Output Urine Total 3 ml # Voids 2 1 # Bowel Movements 5 1 Laboratory Tests Test 08/01/18 04:00 08/01/18 10:20 White Blood Count 3.3 K/UL (4.8-10.8) L Red Blood Count 2.87 M/UL (4.20-5.40) L Hemoglobin 8.6 G/DL (12.0-16.0) L Hematocrit 25.4 % (37.0-47.0) L Mean Corpuscular Volume 88 FL (80-99) Mean Corpuscular Hemoglobin 29.9 PG (27.0-31.0) Mean Corpuscular Hemoglobin Concent 33.8 G/DL (32.0-36.0) Red Cell Distribution Width 13.6 % (11.6-14.8) Platelet Count 58 K/UL (150-450) L Mean Platelet Volume 9.6 FL (6.5-10.1) Neutrophils (%) (Auto) % (45.0-75.0) Lymphocytes (%) (Auto) % (20.0-45.0) Monocytes (%) (Auto) % (1.0-10.0) Eosinophils (%) (Auto) % (0.0-3.0) Basophils (%) (Auto) % (0.0-2.0) Differential Total Cells Counted 100 Neutrophils % (Manual) 80 % (45-75) H Lymphocytes % (Manual) 11 % (20-45) L Monocytes % (Manual) 5 % (1-10) Eosinophils % (Manual) 4 % (0-3) H Basophils % (Manual) 0 % (0-2) Band Neutrophils 0 % (0-8) Platelet Estimate Decreased L Platelet Morphology Normal Ovalocytes 1+ Activated Partial Thromboplast Time 89 SEC (23-33) H Sodium Level 143 MMOL/L (136-145) Potassium Level 3.3 MMOL/L (3.5-5.1) L Chloride Level 110 MMOL/L (98-107) H Carbon Dioxide Level 26 MMOL/L (21-32) Anion Gap 7 mmol/L (5-15) Blood Urea Nitrogen 9 mg/dL (7-18) Creatinine 0.7 MG/DL (0.55-1.30) Estimat Glomerular Filtration Rate mL/min (>60) Glucose Level 123 MG/DL (74-106) H Calcium Level 8.6 MG/DL (8.5-10.1) Phosphorus Level 3.1 MG/DL (2.5-4.9) Magnesium Level 1.7 MG/DL (1.8-2.4) L Total Bilirubin 0.4 MG/DL (0.2-1.0) Aspartate Amino Transf (AST/SGOT) 31 U/L (15-37) Alanine Aminotransferase (ALT/SGPT) 27 U/L (12-78) Alkaline Phosphatase 78 U/L (46-116) Pro-B-Type Natriuretic Peptide 587 pg/mL (0-125) H Total Protein 5.8 G/DL (6.4-8.2) L Albumin 2.0 G/DL (3.4-5.0) L Globulin 3.8 g/dL Albumin/Globulin Ratio 0.5 (1.0-2.7) L Prothrombin Time 11.3 SEC (9.30-11.50) Prothromb Time International Ratio 1.1 (0.9-1.1) Height (Feet): 5 Height (Inches): 2.00 Weight (Pounds): 102 General Appearance: WD/WN, no apparent distress, alert, thin Cardiovascular: normal rate Respiratory/Chest: normal breath sounds, no respiratory distress Abdominal Exam: normal bowel sounds, non tender, soft, GT site - c/d/i Extremities: non-tender Aidee Powell [employer] Aug 01, 2018 10:44
[2018-08-01 12:00] VITALS: BP 138/71
--- NOTE | 2018-08-01 13:03 | Pulmonology Progress Note ---
Assessment/Plan Assessment/Plan ASSESSMENT: The patient is a 78-year-old female, [facility] resident with a presumed history of dementia, hypertension, and hyperlipidemia, presenting with a systemic inflammatory response syndrome, gram-negative bacillus UTI, and acute left superficial vein DVT with likely pulmonary embolism as well. PROBLEM LIST: 1. Extensive left superficial vein DVT (this is a deep vein). 2. Likely pulmonary embolism as well. 3. Hypoxemia. 4. Gram-negative bacillus UTI. 5. GPC bacteremia 6. Hypernatremia and hypokalemia. 7. Protein-calorie malnutrition. 8. Likely underlying dementia versus encephalopathy. 9. Hypertension. 10. Hyperlipidemia. 11. Thrombocytopenia. 12. Normocytic anemia. TREATMENT PLAN: -A/C per heme -Consideration for IVCF if unable to tolerated A/C -F/U hypercoag w/u per here -Abx per ID -Monitor volumes & renal function, IVF per renal -Aspiration precautions: passed HYDRAULIC ENGINEER for puree but insufficient PO, may need PEG -Full Code, continue to discuss goals of care. Subjective Allergies: Coded Allergies: No Known Allergies (Unverified , 07/26/18) Subjective AFVSS, leta AC, no bleeding No distress, no cough, no SOB, no F/C Objective Last 24 Hour Vital Signs Date Time Temp Pulse Resp B/P (MAP) Pulse Ox O2 Delivery O2 Flow Rate FiO2 08/01/18 09:00 Room Air 08/01/18 08:00 79 08/01/18 08:00 97.0 80 18 135/75 (95) 95 97.0 08/01/18 04:00 97.9 84 18 153/77 (102) 95 97.9 08/01/18 04:00 83 08/01/18 00:00 98.0 79 18 138/71 (93) 98 98.0 08/01/18 00:00 83 07/31/18 21:00 Room Air 07/31/18 20:00 98.9 84 19 123/86 (98) 99 98.9 07/31/18 20:00 83 07/31/18 16:00 97.2 76 17 133/73 (93) 99 97.2 07/31/18 16:00 76 Intake and Output 07/31/18 08/01/18 19:00 07:00 Intake Total 50 ml 330 ml Output Total 3 ml Balance 47 ml 330 ml Free Water 30 ml Tube Feeding 50 ml 300 ml Output Urine Total 3 ml # Voids 2 1 # Bowel Movements 5 1 General Appearance: no acute distress, cachetic HEENT: normocephalic, atraumatic, anicteric, mucous membranes moist Respiratory/Chest: chest wall non-tender, lungs clear, normal breath sounds, no respiratory distress, no accessory muscle use Cardiovascular: normal peripheral pulses, normal rate, regular rhythm Abdomen: normal bowel sounds, soft, non tender, no organomegaly, non distended , no mass Extremities: no cyanosis, no clubbing, no edema Laboratory Tests 08/01/18 04:00: White Blood Count 3.3L, Red Blood Count 2.87L, Hemoglobin 8.6L, Hematocrit 25.4L , Mean Corpuscular Volume 88, Mean Corpuscular Hemoglobin 29.9, Mean Corpuscular Hemoglobin Concent 33.8, Red Cell Distribution Width 13.6, Platelet Count 58L, Mean Platelet Volume 9.6, Neutrophils (%) (Auto) , Lymphocytes (%) ( Auto) , Monocytes (%) (Auto) , Eosinophils (%) (Auto) , Basophils (%) (Auto) , Differential Total Cells Counted 100, Neutrophils % (Manual) 80H, Lymphocytes % (Manual) 11L, Monocytes % (Manual) 5, Eosinophils % (Manual) 4H, Basophils % ( Manual) 0, Band Neutrophils 0, Platelet Estimate DecreasedL, Platelet Morphology Normal, Ovalocytes 1+, Activated Partial Thromboplast Time 89H, Sodium Level 143, Potassium Level 3.3L, Chloride Level 110H, Carbon Dioxide Level 26, Anion Gap 7, Blood Urea Nitrogen 9, Creatinine 0.7, Estimat Glomerular Filtration Rate , Glucose Level 123H, Calcium Level 8.6, Phosphorus Level 3.1, Magnesium Level 1.7L, Total Bilirubin 0.4, Aspartate Amino Transf ( AST/SGOT) 31, Alanine Aminotransferase (ALT/SGPT) 27, Alkaline Phosphatase 78, Pro-B-Type Natriuretic Peptide 587H, Total Protein 5.8L, Albumin 2.0L, Globulin 3.8, Albumin/Globulin Ratio 0.5L 08/01/18 10:20: Prothrombin Time 11.3, Prothromb Time International Ratio 1.1 Current Medications Medications (Trade) Dose Ordered Sig/Laure Route PRN Reason Start Time Stop Time Status Last Admin Dose Admin Acetaminophen (Tylenol) 650 mg Q4H PRN ORAL Fever/Headache/Mild Pain 07/26/18 16:45 08/25/18 16:44 Aspirin (ASA) 81 mg DAILY NG 07/31/18 09:00 08/30/18 08:59 08/01/18 08:34 Ceftriaxone Sodium 1 gm/ Dextrose 55 ml @ 110 mls/hr DAILY IVPB 07/29/18 15:00 08/05/18 14:59 08/01/18 08:34 Dextrose (Dextrose 50%) 25 ml Q30M PRN IV Hypoglycemia 07/26/18 15:15 08/25/18 15:14 Dextrose (Dextrose 50%) 50 ml Q30M PRN IV Hypoglycemia 07/26/18 15:15 08/25/18 15:14 Enoxaparin Sodium (Lovenox) 70 mg Q24H SUBQ 08/01/18 10:00 08/31/18 09:59 08/01/18 10:00 Famotidine (Pepcid) 20 mg BID ORAL 07/26/18 18:00 08/25/18 17:59 08/01/18 08:34 Insulin Aspart (NovoLOG) BEFORE MEALS AND HS SUBQ 07/26/18 16:30 08/25/18 16:29 08/01/18 11:56 Quetiapine Fumarate (SEROquel) 12.5 mg Q4H PRN ORAL agitation 07/27/18 11:15 08/26/18 11:14 Quetiapine Fumarate (SEROquel) 25 mg Q12HR ORAL 07/27/18 10:40 08/26/18 10:39 08/01/18 08:34 Sodium 1,000 ml @ 50 mls/hr Q20H IV 07/30/18 16:17 08/26/18 16:16 08/01/18 05:53 Warfarin Sodium (Coumadin per pharmacy) 1 ea DAILY PRN MISC Per rx protocol 08/01/18 08:45 08/31/18 08:44 Warfarin Sodium (Coumadin) 3 mg ONCE ORAL 08/01/18 17:00 08/01/18 18:00 Foreign Parekh MD Aug 01, 2018 13:03
--- NOTE | 2018-08-01 14:40 | Nephrology Progress Note ---
Assessment/Plan Problem List: (1) UTI (urinary tract infection) (2) Dehydration (3) Hypernatremia (4) Hypokalemia (5) Malnutrition Assessment Dehydration- Hypernatremia DM OOC Anemia UTI Malnutrition Plan mag and K supplement KCL as needed check labs Per consultants Subjective ROS Limited/Unobtainable: No Constitutional: Reports: malaise Objective Objective Last 24 Hour Vital Signs Date Time Temp Pulse Resp B/P (MAP) Pulse Ox O2 Delivery O2 Flow Rate FiO2 08/01/18 12:00 97.1 68 18 138/71 (93) 95 97.1 08/01/18 12:00 66 08/01/18 09:00 Room Air 08/01/18 08:00 79 08/01/18 08:00 97.0 80 18 135/75 (95) 95 97.0 08/01/18 04:00 97.9 84 18 153/77 (102) 95 97.9 08/01/18 04:00 83 08/01/18 00:00 98.0 79 18 138/71 (93) 98 98.0 08/01/18 00:00 83 07/31/18 21:00 Room Air 07/31/18 20:00 98.9 84 19 123/86 (98) 99 98.9 07/31/18 20:00 83 07/31/18 16:00 97.2 76 17 133/73 (93) 99 97.2 07/31/18 16:00 76 Intake and Output 07/31/18 08/01/18 19:00 07:00 Intake Total 50 ml 430 ml Output Total 3 ml Balance 47 ml 430 ml Free Water 30 ml IV Total 50 ml Tube Feeding 50 ml 350 ml Output Urine Total 3 ml # Voids 2 1 # Bowel Movements 5 1 Laboratory Tests 08/01/18 04:00: White Blood Count 3.3L, Red Blood Count 2.87L, Hemoglobin 8.6L, Hematocrit 25.4L , Mean Corpuscular Volume 88, Mean Corpuscular Hemoglobin 29.9, Mean Corpuscular Hemoglobin Concent 33.8, Red Cell Distribution Width 13.6, Platelet Count 58L, Mean Platelet Volume 9.6, Neutrophils (%) (Auto) , Lymphocytes (%) ( Auto) , Monocytes (%) (Auto) , Eosinophils (%) (Auto) , Basophils (%) (Auto) , Differential Total Cells Counted 100, Neutrophils % (Manual) 80H, Lymphocytes % (Manual) 11L, Monocytes % (Manual) 5, Eosinophils % (Manual) 4H, Basophils % ( Manual) 0, Band Neutrophils 0, Platelet Estimate DecreasedL, Platelet Morphology Normal, Ovalocytes 1+, Activated Partial Thromboplast Time 89H, Sodium Level 143, Potassium Level 3.3L, Chloride Level 110H, Carbon Dioxide Level 26, Anion Gap 7, Blood Urea Nitrogen 9, Creatinine 0.7, Estimat Glomerular Filtration Rate , Glucose Level 123H, Calcium Level 8.6, Phosphorus Level 3.1, Magnesium Level 1.7L, Total Bilirubin 0.4, Aspartate Amino Transf ( AST/SGOT) 31, Alanine Aminotransferase (ALT/SGPT) 27, Alkaline Phosphatase 78, Pro-B-Type Natriuretic Peptide 587H, Total Protein 5.8L, Albumin 2.0L, Globulin 3.8, Albumin/Globulin Ratio 0.5L 08/01/18 10:20: Prothrombin Time 11.3, Prothromb Time International Ratio 1.1 Height (Feet): 5 Height (Inches): 2.00 Weight (Pounds): 102 General Appearance: no apparent distress, lethargic EENT: other - NGT Cardiovascular: regular rhythm Respiratory/Chest: decreased breath sounds Abdomen: soft Objective no change Parvez Bergman MD Aug 01, 2018 14:40
[2018-08-01 16:04] VITALS: BP 143/77
--- NOTE | 2018-08-01 16:59 | Infectious Diseases Prog Note ---
Assessment/Plan Assessment/Plan A; Sepsis/ SIRS Bacteremia, likel;y contamination UTI with E.coli DVT of left leg, ? PE DM type 2 Anemia Thrombocytopenia Leukopenia P; Continue Rocephin x 1 day Will f/u cultures Subjective ROS Limited/Unobtainable: Yes Neurologic: Reports: confusion, other - on restraint Allergies: Coded Allergies: No Known Allergies (Unverified , 07/26/18) Objective Vital Signs Last 24 Hour Vital Signs Date Time Temp Pulse Resp B/P (MAP) Pulse Ox O2 Delivery O2 Flow Rate FiO2 08/01/18 16:04 97.1 81 17 143/77 (99) 98 97.1 08/01/18 16:00 75 08/01/18 12:00 97.1 68 18 138/71 (93) 95 97.1 08/01/18 12:00 66 08/01/18 09:00 Room Air 08/01/18 08:00 79 08/01/18 08:00 97.0 80 18 135/75 (95) 95 97.0 08/01/18 04:00 97.9 84 18 153/77 (102) 95 97.9 08/01/18 04:00 83 08/01/18 00:00 98.0 79 18 138/71 (93) 98 98.0 08/01/18 00:00 83 07/31/18 21:00 Room Air 07/31/18 20:00 98.9 84 19 123/86 (98) 99 98.9 07/31/18 20:00 83 Height (Feet): 5 Height (Inches): 2.00 Weight (Pounds): 102 General Appearance: no acute distress HEENT: mucous membranes moist Respiratory/Chest: lungs clear Cardiovascular: normal rate Abdomen: soft, non tender, other - NG tube feeding Extremities: no edema Neurologic/Psychiatric: other - awake Laboratory Tests Test 08/01/18 04:00 08/01/18 10:20 White Blood Count 3.3 K/UL (4.8-10.8) L Red Blood Count 2.87 M/UL (4.20-5.40) L Hemoglobin 8.6 G/DL (12.0-16.0) L Hematocrit 25.4 % (37.0-47.0) L Mean Corpuscular Volume 88 FL (80-99) Mean Corpuscular Hemoglobin 29.9 PG (27.0-31.0) Mean Corpuscular Hemoglobin Concent 33.8 G/DL (32.0-36.0) Red Cell Distribution Width 13.6 % (11.6-14.8) Platelet Count 58 K/UL (150-450) L Mean Platelet Volume 9.6 FL (6.5-10.1) Neutrophils (%) (Auto) % (45.0-75.0) Lymphocytes (%) (Auto) % (20.0-45.0) Monocytes (%) (Auto) % (1.0-10.0) Eosinophils (%) (Auto) % (0.0-3.0) Basophils (%) (Auto) % (0.0-2.0) Differential Total Cells Counted 100 Neutrophils % (Manual) 80 % (45-75) H Lymphocytes % (Manual) 11 % (20-45) L Monocytes % (Manual) 5 % (1-10) Eosinophils % (Manual) 4 % (0-3) H Basophils % (Manual) 0 % (0-2) Band Neutrophils 0 % (0-8) Platelet Estimate Decreased L Platelet Morphology Normal Ovalocytes 1+ Activated Partial Thromboplast Time 89 SEC (23-33) H Sodium Level 143 MMOL/L (136-145) Potassium Level 3.3 MMOL/L (3.5-5.1) L Chloride Level 110 MMOL/L (98-107) H Carbon Dioxide Level 26 MMOL/L (21-32) Anion Gap 7 mmol/L (5-15) Blood Urea Nitrogen 9 mg/dL (7-18) Creatinine 0.7 MG/DL (0.55-1.30) Estimat Glomerular Filtration Rate mL/min (>60) Glucose Level 123 MG/DL (74-106) H Calcium Level 8.6 MG/DL (8.5-10.1) Phosphorus Level 3.1 MG/DL (2.5-4.9) Magnesium Level 1.7 MG/DL (1.8-2.4) L Total Bilirubin 0.4 MG/DL (0.2-1.0) Aspartate Amino Transf (AST/SGOT) 31 U/L (15-37) Alanine Aminotransferase (ALT/SGPT) 27 U/L (12-78) Alkaline Phosphatase 78 U/L (46-116) Pro-B-Type Natriuretic Peptide 587 pg/mL (0-125) H Total Protein 5.8 G/DL (6.4-8.2) L Albumin 2.0 G/DL (3.4-5.0) L Globulin 3.8 g/dL Albumin/Globulin Ratio 0.5 (1.0-2.7) L Prothrombin Time 11.3 SEC (9.30-11.50) Prothromb Time International Ratio 1.1 (0.9-1.1) Current Medications Medications (Trade) Dose Ordered Sig/Laure Route PRN Reason Start Time Stop Time Status Last Admin Dose Admin Acetaminophen (Tylenol) 650 mg Q4H PRN ORAL Fever/Headache/Mild Pain 07/26/18 16:45 08/25/18 16:44 Aspirin (ASA) 81 mg DAILY NG 07/31/18 09:00 08/30/18 08:59 08/01/18 08:34 Ceftriaxone Sodium 1 gm/ Dextrose 55 ml @ 110 mls/hr DAILY IVPB 07/29/18 15:00 08/05/18 14:59 08/01/18 08:34 Dextrose (Dextrose 50%) 25 ml Q30M PRN IV Hypoglycemia 07/26/18 15:15 08/25/18 15:14 Dextrose (Dextrose 50%) 50 ml Q30M PRN IV Hypoglycemia 07/26/18 15:15 08/25/18 15:14 Enoxaparin Sodium (Lovenox) 70 mg Q24H SUBQ 08/01/18 10:00 08/31/18 09:59 08/01/18 10:00 Famotidine (Pepcid) 20 mg BID ORAL 07/26/18 18:00 08/25/18 17:59 08/01/18 08:34 Insulin Aspart (NovoLOG) BEFORE MEALS AND HS SUBQ 07/26/18 16:30 08/25/18 16:29 08/01/18 11:56 Magnesium Sulfate 100 ml @ 100 mls/hr Q1H IVPB 08/01/18 15:00 08/01/18 16:59 08/01/18 15:39 Potassium Chloride (K-Dur) 40 meq DAILY NG 08/02/18 09:00 09/01/18 08:59 Quetiapine Fumarate (SEROquel) 12.5 mg Q4H PRN ORAL agitation 07/27/18 11:15 08/26/18 11:14 Quetiapine Fumarate (SEROquel) 25 mg Q12HR ORAL 07/27/18 10:40 08/26/18 10:39 08/01/18 08:34 Warfarin Sodium (Coumadin per pharmacy) 1 ea DAILY PRN MISC Per rx protocol 08/01/18 08:45 08/31/18 08:44 Warfarin Sodium (Coumadin) 3 mg ONCE ORAL 08/01/18 17:00 08/01/18 18:00 Shimon Card MD Aug 01, 2018 16:59
[2018-08-01] MEDS ORDERED: Warfarin Sodium 3mg ORAL SCH (17:00)
[2018-08-01 20:00] VITALS: BP 146/73
--- NOTE | 2018-08-01 20:49 | General Progress Note ---
Assessment/Plan Problem List: (1) Dementia with behavioral disturbance ICD Codes: F03.91 - Unspecified dementia with behavioral disturbance SNOMED: 5988085413774 (2) Malnutrition ICD Codes: E46 - Unspecified protein-calorie malnutrition SNOMED: 16667967 (3) Sepsis ICD Codes: A41.9 - Sepsis, unspecified organism SNOMED: 91018150 (4) Dehydration ICD Codes: E86.0 - Dehydration SNOMED: 19623283 (5) UTI (urinary tract infection) ICD Codes: N39.0 - Urinary tract infection, site not specified SNOMED: 36515102 Status: progressing Assessment/Plan confused no cough dementia uti hydronephrosis kidney stone poor historian afebrile dc planning Subjective ROS Limited/Unobtainable: Yes Allergies: Coded Allergies: No Known Allergies (Unverified , 07/26/18) Objective Last 24 Hour Vital Signs Date Time Temp Pulse Resp B/P (MAP) Pulse Ox O2 Delivery O2 Flow Rate FiO2 08/01/18 20:00 97.4 75 18 146/73 (97) 94 97.4 08/01/18 19:20 79 08/01/18 16:04 97.1 81 17 143/77 (99) 98 97.1 08/01/18 16:00 75 08/01/18 12:00 97.1 68 18 138/71 (93) 95 97.1 08/01/18 12:00 66 08/01/18 09:00 Room Air 08/01/18 08:00 79 08/01/18 08:00 97.0 80 18 135/75 (95) 95 97.0 08/01/18 04:00 97.9 84 18 153/77 (102) 95 97.9 08/01/18 04:00 83 08/01/18 00:00 98.0 79 18 138/71 (93) 98 98.0 08/01/18 00:00 83 07/31/18 21:00 Room Air Intake and Output 07/31/18 08/01/18 19:00 07:00 Intake Total 50 ml 430 ml Output Total 3 ml Balance 47 ml 430 ml Free Water 30 ml IV Total 50 ml Tube Feeding 50 ml 350 ml Output Urine Total 3 ml # Voids 2 1 # Bowel Movements 5 1 Laboratory Tests 08/01/18 04:00: White Blood Count 3.3L, Red Blood Count 2.87L, Hemoglobin 8.6L, Hematocrit 25.4L , Mean Corpuscular Volume 88, Mean Corpuscular Hemoglobin 29.9, Mean Corpuscular Hemoglobin Concent 33.8, Red Cell Distribution Width 13.6, Platelet Count 58L, Mean Platelet Volume 9.6, Neutrophils (%) (Auto) , Lymphocytes (%) ( Auto) , Monocytes (%) (Auto) , Eosinophils (%) (Auto) , Basophils (%) (Auto) , Differential Total Cells Counted 100, Neutrophils % (Manual) 80H, Lymphocytes % (Manual) 11L, Monocytes % (Manual) 5, Eosinophils % (Manual) 4H, Basophils % ( Manual) 0, Band Neutrophils 0, Platelet Estimate DecreasedL, Platelet Morphology Normal, Ovalocytes 1+, Activated Partial Thromboplast Time 89H, Sodium Level 143, Potassium Level 3.3L, Chloride Level 110H, Carbon Dioxide Level 26, Anion Gap 7, Blood Urea Nitrogen 9, Creatinine 0.7, Estimat Glomerular Filtration Rate , Glucose Level 123H, Calcium Level 8.6, Phosphorus Level 3.1, Magnesium Level 1.7L, Total Bilirubin 0.4, Aspartate Amino Transf ( AST/SGOT) 31, Alanine Aminotransferase (ALT/SGPT) 27, Alkaline Phosphatase 78, Pro-B-Type Natriuretic Peptide 587H, Total Protein 5.8L, Albumin 2.0L, Globulin 3.8, Albumin/Globulin Ratio 0.5L 08/01/18 10:20: Prothrombin Time 11.3, Prothromb Time International Ratio 1.1 Height (Feet): 5 Height (Inches): 2.00 Weight (Pounds): 102 Neck: supple Cardiovascular: normal rate Respiratory/Chest: lungs clear Abdomen: soft Yi Asencio MD Aug 01, 2018 20:49
--- NOTE | 2018-08-01 23:28 | General Progress Note ---
Assessment/Plan Problem List: (1) Dementia with behavioral disturbance ICD Codes: F03.91 - Unspecified dementia with behavioral disturbance SNOMED: 0507971839001 (2) Encephalopathy due to metabolic factor or toxin SNOMED: 556968078 Status: unchanged Assessment/Plan 1. 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 2. Dementia. PLAN: 1. We will continue the Seroquel. 2. Provide reality orientation and supportive therapy. 3. Bilateral soft restraint. Subjective Date patient seen: Aug 01, 2018 Neurologic/Psychiatric: Reports: anxiety, depressed, emotional problems Allergies: Coded Allergies: No Known Allergies (Unverified , 07/26/18) Objective Last 24 Hour Vital Signs Date Time Temp Pulse Resp B/P (MAP) Pulse Ox O2 Delivery O2 Flow Rate FiO2 08/01/18 21:00 Room Air 08/01/18 20:00 97.4 75 18 146/73 (97) 94 97.4 08/01/18 19:20 79 08/01/18 16:04 97.1 81 17 143/77 (99) 98 97.1 08/01/18 16:00 75 08/01/18 12:00 97.1 68 18 138/71 (93) 95 97.1 08/01/18 12:00 66 08/01/18 09:00 Room Air 08/01/18 08:00 79 08/01/18 08:00 97.0 80 18 135/75 (95) 95 97.0 08/01/18 04:00 97.9 84 18 153/77 (102) 95 97.9 08/01/18 04:00 83 08/01/18 00:00 98.0 79 18 138/71 (93) 98 98.0 08/01/18 00:00 83 Intake and Output 07/31/18 08/01/18 18:59 06:59 Intake Total 380 ml Output Total 3 ml Balance -3 ml 380 ml Free Water 30 ml Tube Feeding 350 ml Output Urine Total 3 ml # Voids 2 1 # Bowel Movements 5 1 Laboratory Tests 08/01/18 04:00: White Blood Count 3.3L, Red Blood Count 2.87L, Hemoglobin 8.6L, Hematocrit 25.4L , Mean Corpuscular Volume 88, Mean Corpuscular Hemoglobin 29.9, Mean Corpuscular Hemoglobin Concent 33.8, Red Cell Distribution Width 13.6, Platelet Count 58L, Mean Platelet Volume 9.6, Neutrophils (%) (Auto) , Lymphocytes (%) ( Auto) , Monocytes (%) (Auto) , Eosinophils (%) (Auto) , Basophils (%) (Auto) , Differential Total Cells Counted 100, Neutrophils % (Manual) 80H, Lymphocytes % (Manual) 11L, Monocytes % (Manual) 5, Eosinophils % (Manual) 4H, Basophils % ( Manual) 0, Band Neutrophils 0, Platelet Estimate DecreasedL, Platelet Morphology Normal, Ovalocytes 1+, Activated Partial Thromboplast Time 89H, Sodium Level 143, Potassium Level 3.3L, Chloride Level 110H, Carbon Dioxide Level 26, Anion Gap 7, Blood Urea Nitrogen 9, Creatinine 0.7, Estimat Glomerular Filtration Rate , Glucose Level 123H, Calcium Level 8.6, Phosphorus Level 3.1, Magnesium Level 1.7L, Total Bilirubin 0.4, Aspartate Amino Transf ( AST/SGOT) 31, Alanine Aminotransferase (ALT/SGPT) 27, Alkaline Phosphatase 78, Pro-B-Type Natriuretic Peptide 587H, Total Protein 5.8L, Albumin 2.0L, Globulin 3.8, Albumin/Globulin Ratio 0.5L 08/01/18 10:20: Prothrombin Time 11.3, Prothromb Time International Ratio 1.1 Height (Feet): 5 Height (Inches): 2.00 Weight (Pounds): 102 General Appearance: no apparent distress, alert, confused, agitated Kimmy Chavez MD Aug 01, 2018 23:28
[2018-08-02] VITALS: BP 134/70
[2018-08-02 04:00] VITALS: BP 133/71
[2018-08-02 04:11] LABS: HEMATOCRIT 25.2 % (37.0-47.0); HEMOGLOBIN 8.5 G/DL (12.0-16.0); MEAN CORPUSCULAR VOLUME 89 FL (80-99); PLATELET COUNT 65 K/UL (150-450); RED BLOOD COUNT 2.82 M/UL (4.20-5.40); RED CELL DISTRIBUTION WIDTH 14.4 % (11.6-14.8); WHITE BLOOD COUNT 2.5 K/UL (4.8-10.8)
[2018-08-02 04:24] LABS: ANION GAP 7 mmol/L (5-15); BLOOD UREA NITROGEN 11 mg/dL (7-18); CALCIUM 8.5 MG/DL (8.5-10.1); CARBON DIOXIDE 29 MMOL/L (21-32); CHLORIDE 109 MMOL/L (98-107); CREATININE 0.7 MG/DL (0.55-1.30); POTASSIUM 3.7 MMOL/L (3.5-5.1); SODIUM 145 MMOL/L (136-145)
--- NOTE | 2018-08-02 06:12 | General Progress Note ---
Assessment/Plan Assessment/Plan # DVT of the left leg -- superficial femoral vein which is a deep vein, new onset, has not had these symptoms before --> discussed with renal, have stopped heparin gtt --> continue lovenox as bridge and coumadin --> INR goal 2-3 --> if plts drop any further, consider a IVC filter placement --> monitor platelet count closely --> appreciate Dr. Parekh and Mariam recs --> Plt count at 60k --> APPT 93 # Pancytopenia --> this is her first time here at [facility], do not have baseline , appears new baseline 50-70k, several causes possible including viral, medication or intrabone marrow related --> Cont to monitor plt count for improvement --> US abd: Mild left hydronephrosis. Possible left renal calyceal calculi. Negative for gallstones or dilated ducts Debris noted within the bladder --> Hep panel and HIV are both negative --> given extremely poor condition do not recommend a bone marrow biopsy, have discussed with family 08/01 with --> Current plt count 60k # Anemia of chronic disease --> Cont to monitor for stability --> Hgb goal above 7. Transfuse prn. --> Currently stable. # Dehydration. IVF has been administered # DM OOC --> A1C goal less than 7 --> Cont on insulin # UTI. --> ID is following. Appreciate recs. --> Pt on IV abx. --> Cultures - gram negative bacillus Greatly appreciate consultation! Subjective Constitutional: Denies: no symptoms, chills, diaphoresis, fever, malaise, weakness, other HEENT: Denies: no symptoms, eye pain, blurred vision, tearing, double vision, ear pain, ear discharge, nose pain, nose congestion, throat pain, throat swelling, mouth pain, mouth swelling, other Cardiovascular: Denies: no symptoms, chest pain, edema, irregular heart rate, lightheadedness, palpitations, syncope, other Respiratory: Denies: no symptoms, cough, orthopnea, shortness of breath, SOB with excertion, SOB at rest, sputum, stridor, wheezing, other Gastrointestinal/Abdominal: Denies: no symptoms, abdomen distended, abdominal pain, black stools, tarry stools, blood in stool, constipated, diarrhea, difficulty swallowing, nausea, poor appetite, poor fluid intake, rectal bleeding , vomiting, other Neurologic/Psychiatric: Denies: no symptoms, anxiety, depressed, emotional problems, headache, numbness, paresthesia, pre-existing deficit, seizure, tingling, tremors, weakness, other Hematologic/Lymphatic: Denies: no symptoms, anemia, easy bleeding, easy bruising, other Allergies: Coded Allergies: No Known Allergies (Unverified , 07/26/18) Subjective currently on lovenox and coumadin, no significant bleeding overnight Objective Last 24 Hour Vital Signs Date Time Temp Pulse Resp B/P (MAP) Pulse Ox O2 Delivery O2 Flow Rate FiO2 08/02/18 04:00 98.1 82 18 133/71 (91) 96 98.1 08/02/18 03:29 74 08/02/18 00:00 98.2 80 18 134/70 (91) 96 98.2 08/01/18 23:30 78 08/01/18 21:00 Room Air 08/01/18 20:00 97.4 75 18 146/73 (97) 94 97.4 08/01/18 19:20 79 08/01/18 16:04 97.1 81 17 143/77 (99) 98 97.1 08/01/18 16:00 75 08/01/18 12:00 97.1 68 18 138/71 (93) 95 97.1 08/01/18 12:00 66 08/01/18 09:00 Room Air 08/01/18 08:00 79 08/01/18 08:00 97.0 80 18 135/75 (95) 95 97.0 Intake and Output 08/01/18 08/02/18 19:00 07:00 Intake Total 955 ml 550 ml Balance 955 ml 550 ml IV Total 355 ml Tube Feeding 600 ml 550 ml # Voids 6 1 # Bowel Movements 5 1 Laboratory Tests 08/01/18 10:20: Prothrombin Time 11.3, Prothromb Time International Ratio 1.1 08/02/18 04:00: Prothrombin Time 10.7, Prothromb Time International Ratio 1.0, White Blood Count 2.5L, Red Blood Count 2.82L, Hemoglobin 8.5L, Hematocrit 25.2L, Mean Corpuscular Volume 89, Mean Corpuscular Hemoglobin 30.0, Mean Corpuscular Hemoglobin Concent 33.6, Red Cell Distribution Width 14.4, Platelet Count 65L, Mean Platelet Volume 8.8, Neutrophils (%) (Auto) , Lymphocytes (%) (Auto) , Monocytes (%) (Auto) , Eosinophils (%) (Auto) , Basophils (%) (Auto) , Neutrophils % (Manual) [Pending], Lymphocytes % (Manual) [Pending], Platelet Estimate [Pending], Platelet Morphology [Pending], Activated Partial Thromboplast Time 30, Sodium Level 145, Potassium Level 3.7, Chloride Level 109H , Carbon Dioxide Level 29, Anion Gap 7, Blood Urea Nitrogen 11, Creatinine 0.7, Estimat Glomerular Filtration Rate , Glucose Level 131H, Calcium Level 8.5 Height (Feet): 5 Height (Inches): 2.00 Weight (Pounds): 102 General Appearance: no apparent distress EENT: normal ENT inspection Cardiovascular: regular rhythm Respiratory/Chest: lungs clear Abdomen: non tender Extremities: non-tender Edema: 1+ Leg (L), 1+ Leg (R) Edema: mild edema Neurologic: alert Skin: warm/dry Dewayne Gayle MD Aug 02, 2018 06:11
[2018-08-02] MEDS: NovoLOG Insulin Flexpen SUBQ SCH ×4 (06:28→20:59)
[2018-08-02 08:00] VITALS: BP 150/71
[2018-08-02] MEDS: Aspirin Baby 81mg NG SCH (08:10)
[2018-08-02] MEDS: cefTRIAXone 1 GM in D5W 55 ML IVPB SCH (08:12)
[2018-08-02] MEDS: Enoxaparin Sodium 300mg/3ml vial SUBQ SCH (10:32)
--- NOTE | 2018-08-02 11:59 | Infectious Diseases Prog Note ---
Assessment/Plan Assessment/Plan A; Sepsis/ SIRS Bacteremia, likel;y contamination UTI with E.coli DVT of left leg, ? PE DM type 2 Anemia Thrombocytopenia Leukopenia P; discontinue Rocephin Observe off antibiotic Subjective ROS Limited/Unobtainable: Yes Allergies: Coded Allergies: No Known Allergies (Unverified , 07/26/18) Objective Vital Signs Last 24 Hour Vital Signs Date Time Temp Pulse Resp B/P (MAP) Pulse Ox O2 Delivery O2 Flow Rate FiO2 08/02/18 08:00 74 08/02/18 08:00 97.6 82 21 150/71 (97) 96 97.6 08/02/18 07:57 Room Air 08/02/18 04:00 98.1 82 18 133/71 (91) 96 98.1 08/02/18 03:29 74 08/02/18 00:00 98.2 80 18 134/70 (91) 96 98.2 08/01/18 23:30 78 08/01/18 21:00 Room Air 08/01/18 20:00 97.4 75 18 146/73 (97) 94 97.4 08/01/18 19:20 79 08/01/18 16:04 97.1 81 17 143/77 (99) 98 97.1 08/01/18 16:00 75 08/01/18 12:00 97.1 68 18 138/71 (93) 95 97.1 08/01/18 12:00 66 Height (Feet): 5 Height (Inches): 2.00 Weight (Pounds): 102 General Appearance: no acute distress HEENT: mucous membranes moist Respiratory/Chest: lungs clear Cardiovascular: normal rate Abdomen: soft, non tender, other - NG tube feeding Extremities: no edema Neurologic/Psychiatric: alert Laboratory Tests Test 08/02/18 04:00 White Blood Count 2.5 K/UL (4.8-10.8) L Red Blood Count 2.82 M/UL (4.20-5.40) L Hemoglobin 8.5 G/DL (12.0-16.0) L Hematocrit 25.2 % (37.0-47.0) L Mean Corpuscular Volume 89 FL (80-99) Mean Corpuscular Hemoglobin 30.0 PG (27.0-31.0) Mean Corpuscular Hemoglobin Concent 33.6 G/DL (32.0-36.0) Red Cell Distribution Width 14.4 % (11.6-14.8) Platelet Count 65 K/UL (150-450) L Mean Platelet Volume 8.8 FL (6.5-10.1) Neutrophils (%) (Auto) % (45.0-75.0) Lymphocytes (%) (Auto) % (20.0-45.0) Monocytes (%) (Auto) % (1.0-10.0) Eosinophils (%) (Auto) % (0.0-3.0) Basophils (%) (Auto) % (0.0-2.0) Differential Total Cells Counted 100 Neutrophils % (Manual) 75 % (45-75) Lymphocytes % (Manual) 16 % (20-45) L Monocytes % (Manual) 8 % (1-10) Eosinophils % (Manual) 1 % (0-3) Basophils % (Manual) 0 % (0-2) Band Neutrophils 0 % (0-8) Platelet Estimate Decreased L Platelet Morphology Normal Hypochromasia 2+ Anisocytosis 1+ Prothrombin Time 10.7 SEC (9.30-11.50) Prothromb Time International Ratio 1.0 (0.9-1.1) Activated Partial Thromboplast Time 30 SEC (23-33) Sodium Level 145 MMOL/L (136-145) Potassium Level 3.7 MMOL/L (3.5-5.1) Chloride Level 109 MMOL/L (98-107) H Carbon Dioxide Level 29 MMOL/L (21-32) Anion Gap 7 mmol/L (5-15) Blood Urea Nitrogen 11 mg/dL (7-18) Creatinine 0.7 MG/DL (0.55-1.30) Estimat Glomerular Filtration Rate mL/min (>60) Glucose Level 131 MG/DL (74-106) H Calcium Level 8.5 MG/DL (8.5-10.1) Current Medications Medications (Trade) Dose Ordered Sig/Laure Route PRN Reason Start Time Stop Time Status Last Admin Dose Admin Acetaminophen (Tylenol) 650 mg Q4H PRN ORAL Fever/Headache/Mild Pain 07/26/18 16:45 08/25/18 16:44 Aspirin (ASA) 81 mg DAILY NG 07/31/18 09:00 08/30/18 08:59 08/02/18 08:10 Ceftriaxone Sodium 1 gm/ Dextrose 55 ml @ 110 mls/hr DAILY IVPB 07/29/18 15:00 08/05/18 14:59 08/02/18 08:12 Dextrose (Dextrose 50%) 25 ml Q30M PRN IV Hypoglycemia 07/26/18 15:15 08/25/18 15:14 Dextrose (Dextrose 50%) 50 ml Q30M PRN IV Hypoglycemia 07/26/18 15:15 08/25/18 15:14 Enoxaparin Sodium (Lovenox) 70 mg Q24H SUBQ 08/01/18 10:00 08/31/18 09:59 08/02/18 10:32 Famotidine (Pepcid) 20 mg BID ORAL 07/26/18 18:00 08/25/18 17:59 08/02/18 08:10 Insulin Aspart (NovoLOG) BEFORE MEALS AND HS SUBQ 07/26/18 16:30 08/25/18 16:29 08/02/18 11:22 Potassium Chloride (K-Dur) 40 meq DAILY NG 08/02/18 09:00 09/01/18 08:59 08/02/18 08:12 Quetiapine Fumarate (SEROquel) 12.5 mg Q4H PRN ORAL agitation 07/27/18 11:15 08/26/18 11:14 Quetiapine Fumarate (SEROquel) 25 mg Q12HR ORAL 07/27/18 10:40 08/26/18 10:39 08/02/18 08:10 Warfarin Sodium (Coumadin per pharmacy) 1 ea DAILY PRN MISC Per rx protocol 08/01/18 08:45 08/31/18 08:44 Warfarin Sodium (Coumadin) 3 mg COUMADIN ORAL 08/02/18 17:00 08/02/18 18:00 Shimon Card MD Aug 02, 2018 11:59
[2018-08-02 12:00] VITALS: BP 125/95
[2018-08-02] MEDS ORDERED: Warfarin Sodium 3mg ORAL SCH (13:00)
--- NOTE | 2018-08-02 13:00 | GI Progress Note ---
Assessment/Plan Problems: (1) UTI (urinary tract infection) ICD Codes: N39.0 - Urinary tract infection, site not specified SNOMED: 74453583 (2) Sepsis ICD Codes: A41.9 - Sepsis, unspecified organism SNOMED: 90639415 (3) Dehydration ICD Codes: E86.0 - Dehydration SNOMED: 51004718 (4) Malnutrition ICD Codes: E46 - Unspecified protein-calorie malnutrition SNOMED: 84053864 (5) Dementia with behavioral disturbance ICD Codes: F03.91 - Unspecified dementia with behavioral disturbance SNOMED: 2054975734288 Status: unchanged Status Narrative Discussed with Dr. Argueta. Assessment/Plan abdominal U/S reviewed >> normal liver echogenicity ST evaluation passed on puree Calorie count reviewed with RD >> patient is only meeting 50% of nutritional needs son is still indecisive regarding possible GT placement video swallow failed, son informed to make decision tonight regarding PEG placement, maintain pt NPO @ [place]. prn transfusions ppi abx zofran prn fu labs The patient was seen and examined at bedside and all new and available data was reviewed in the patients chart. I agree with the above findings, impression and plan. (Patient seen earlier today. Signature stamp does not reflect patient encounter time.). - Edwardo Argueta MD Subjective Subjective limited Objective Last 24 Hour Vital Signs Date Time Temp Pulse Resp B/P (MAP) Pulse Ox O2 Delivery O2 Flow Rate FiO2 08/02/18 12:00 98.4 76 17 125/95 (105) 95 98.4 08/02/18 12:00 73 08/02/18 08:00 74 08/02/18 08:00 97.6 82 21 150/71 (97) 96 97.6 08/02/18 07:57 Room Air 08/02/18 04:00 98.1 82 18 133/71 (91) 96 98.1 08/02/18 03:29 74 08/02/18 00:00 98.2 80 18 134/70 (91) 96 98.2 08/01/18 23:30 78 08/01/18 21:00 Room Air 08/01/18 20:00 97.4 75 18 146/73 (97) 94 97.4 08/01/18 19:20 79 08/01/18 16:04 97.1 81 17 143/77 (99) 98 97.1 08/01/18 16:00 75 Intake and Output 08/01/18 08/02/18 19:00 07:00 Intake Total 955 ml 600 ml Balance 955 ml 600 ml IV Total 355 ml Tube Feeding 600 ml 600 ml # Voids 6 1 # Bowel Movements 5 1 Laboratory Tests Test 08/02/18 04:00 White Blood Count 2.5 K/UL (4.8-10.8) L Red Blood Count 2.82 M/UL (4.20-5.40) L Hemoglobin 8.5 G/DL (12.0-16.0) L Hematocrit 25.2 % (37.0-47.0) L Mean Corpuscular Volume 89 FL (80-99) Mean Corpuscular Hemoglobin 30.0 PG (27.0-31.0) Mean Corpuscular Hemoglobin Concent 33.6 G/DL (32.0-36.0) Red Cell Distribution Width 14.4 % (11.6-14.8) Platelet Count 65 K/UL (150-450) L Mean Platelet Volume 8.8 FL (6.5-10.1) Neutrophils (%) (Auto) % (45.0-75.0) Lymphocytes (%) (Auto) % (20.0-45.0) Monocytes (%) (Auto) % (1.0-10.0) Eosinophils (%) (Auto) % (0.0-3.0) Basophils (%) (Auto) % (0.0-2.0) Differential Total Cells Counted 100 Neutrophils % (Manual) 75 % (45-75) Lymphocytes % (Manual) 16 % (20-45) L Monocytes % (Manual) 8 % (1-10) Eosinophils % (Manual) 1 % (0-3) Basophils % (Manual) 0 % (0-2) Band Neutrophils 0 % (0-8) Platelet Estimate Decreased L Platelet Morphology Normal Hypochromasia 2+ Anisocytosis 1+ Prothrombin Time 10.7 SEC (9.30-11.50) Prothromb Time International Ratio 1.0 (0.9-1.1) Activated Partial Thromboplast Time 30 SEC (23-33) Sodium Level 145 MMOL/L (136-145) Potassium Level 3.7 MMOL/L (3.5-5.1) Chloride Level 109 MMOL/L (98-107) H Carbon Dioxide Level 29 MMOL/L (21-32) Anion Gap 7 mmol/L (5-15) Blood Urea Nitrogen 11 mg/dL (7-18) Creatinine 0.7 MG/DL (0.55-1.30) Estimat Glomerular Filtration Rate mL/min (>60) Glucose Level 131 MG/DL (74-106) H Calcium Level 8.5 MG/DL (8.5-10.1) Height (Feet): 5 Height (Inches): 2.00 Weight (Pounds): 102 General Appearance: WD/WN, no apparent distress, alert, thin Cardiovascular: normal rate Respiratory/Chest: normal breath sounds, no respiratory distress Abdominal Exam: normal bowel sounds, non tender, soft Extremities: non-tender Aidee Powell NP Aug 02, 2018 13:00
[2018-08-02] MEDS ORDERED: Warfarin Sodium 3mg ORAL ONE (13:15)
--- NOTE | 2018-08-02 15:18 | Nephrology Progress Note ---
Assessment/Plan Problem List: (1) UTI (urinary tract infection) (2) Dehydration (3) Hypernatremia (4) Hypokalemia (5) Malnutrition Assessment failed swallow test Dehydration- Hypernatremia DM OOC Anemia UTI Malnutrition Plan ? PEG IV iron mag and K supplement KCL as needed check labs Per consultants Subjective ROS Limited/Unobtainable: No Constitutional: Reports: malaise Objective Objective Last 24 Hour Vital Signs Date Time Temp Pulse Resp B/P (MAP) Pulse Ox O2 Delivery O2 Flow Rate FiO2 08/02/18 12:00 98.4 76 17 125/95 (105) 95 98.4 08/02/18 12:00 73 08/02/18 08:00 74 08/02/18 08:00 97.6 82 21 150/71 (97) 96 97.6 08/02/18 07:57 Room Air 08/02/18 04:00 98.1 82 18 133/71 (91) 96 98.1 08/02/18 03:29 74 08/02/18 00:00 98.2 80 18 134/70 (91) 96 98.2 08/01/18 23:30 78 08/01/18 21:00 Room Air 08/01/18 20:00 97.4 75 18 146/73 (97) 94 97.4 08/01/18 19:20 79 08/01/18 16:04 97.1 81 17 143/77 (99) 98 97.1 08/01/18 16:00 75 Intake and Output 08/01/18 08/02/18 19:00 07:00 Intake Total 955 ml 600 ml Balance 955 ml 600 ml IV Total 355 ml Tube Feeding 600 ml 600 ml # Voids 6 1 # Bowel Movements 5 1 Laboratory Tests 08/02/18 04:00: White Blood Count 2.5L, Red Blood Count 2.82L, Hemoglobin 8.5L, Hematocrit 25.2L , Mean Corpuscular Volume 89, Mean Corpuscular Hemoglobin 30.0, Mean Corpuscular Hemoglobin Concent 33.6, Red Cell Distribution Width 14.4, Platelet Count 65L, Mean Platelet Volume 8.8, Neutrophils (%) (Auto) , Lymphocytes (%) ( Auto) , Monocytes (%) (Auto) , Eosinophils (%) (Auto) , Basophils (%) (Auto) , Differential Total Cells Counted 100, Neutrophils % (Manual) 75, Lymphocytes % ( Manual) 16L, Monocytes % (Manual) 8, Eosinophils % (Manual) 1, Basophils % ( Manual) 0, Band Neutrophils 0, Platelet Estimate DecreasedL, Platelet Morphology Normal, Hypochromasia 2+, Anisocytosis 1+, Prothrombin Time 10.7, Prothromb Time International Ratio 1.0, Activated Partial Thromboplast Time 30, Sodium Level 145, Potassium Level 3.7, Chloride Level 109H, Carbon Dioxide Level 29, Anion Gap 7, Blood Urea Nitrogen 11, Creatinine 0.7, Estimat Glomerular Filtration Rate , Glucose Level 131H, Calcium Level 8.5 Height (Feet): 5 Height (Inches): 2.00 Weight (Pounds): 102 General Appearance: no apparent distress Respiratory/Chest: decreased breath sounds Abdomen: soft Objective no change Parvez Bergman MD Aug 02, 2018 15:18
--- NOTE | 2018-08-02 15:32 | Pulmonology Progress Note ---
Assessment/Plan Assessment/Plan ASSESSMENT: The patient is a 78-year-old female, correction resident with a presumed history of dementia, hypertension, and hyperlipidemia, presenting with a systemic inflammatory response syndrome, gram-negative bacillus UTI, and acute left superficial vein DVT with likely pulmonary embolism as well. PROBLEM LIST: 1. Extensive left superficial vein DVT (this is a deep vein). 2. Likely pulmonary embolism as well. 3. Hypoxemia. 4. Gram-negative bacillus UTI. 5. GPC bacteremia 6. Hypernatremia and hypokalemia. 7. Protein-calorie malnutrition. 8. Likely underlying dementia versus encephalopathy. 9. Hypertension. 10. Hyperlipidemia. 11. Thrombocytopenia. 12. Normocytic anemia. 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 Subjective Allergies: Coded Allergies: No Known Allergies (Unverified , 07/26/18) Subjective AFVSS, leta AC, no bleeding No distress, no cough, no SOB, no F/C Objective Last 24 Hour Vital Signs Date Time Temp Pulse Resp B/P (MAP) Pulse Ox O2 Delivery O2 Flow Rate FiO2 08/02/18 12:00 98.4 76 17 125/95 (105) 95 98.4 08/02/18 12:00 73 08/02/18 08:00 74 08/02/18 08:00 97.6 82 21 150/71 (97) 96 97.6 08/02/18 07:57 Room Air 08/02/18 04:00 98.1 82 18 133/71 (91) 96 98.1 08/02/18 03:29 74 08/02/18 00:00 98.2 80 18 134/70 (91) 96 98.2 08/01/18 23:30 78 08/01/18 21:00 Room Air 08/01/18 20:00 97.4 75 18 146/73 (97) 94 97.4 08/01/18 19:20 79 08/01/18 16:04 97.1 81 17 143/77 (99) 98 97.1 08/01/18 16:00 75 Intake and Output 08/01/18 08/02/18 19:00 07:00 Intake Total 955 ml 600 ml Balance 955 ml 600 ml IV Total 355 ml Tube Feeding 600 ml 600 ml # Voids 6 1 # Bowel Movements 5 1 General Appearance: cachetic HEENT: normocephalic, atraumatic, anicteric, mucous membranes moist Respiratory/Chest: chest wall non-tender, lungs clear, normal breath sounds, no respiratory distress Cardiovascular: normal peripheral pulses, normal rate, regular rhythm Abdomen: normal bowel sounds, soft, non tender, no organomegaly, non distended , no mass Extremities: no cyanosis, no clubbing, no edema Laboratory Tests 08/02/18 04:00: White Blood Count 2.5L, Red Blood Count 2.82L, Hemoglobin 8.5L, Hematocrit 25.2L , Mean Corpuscular Volume 89, Mean Corpuscular Hemoglobin 30.0, Mean Corpuscular Hemoglobin Concent 33.6, Red Cell Distribution Width 14.4, Platelet Count 65L, Mean Platelet Volume 8.8, Neutrophils (%) (Auto) , Lymphocytes (%) ( Auto) , Monocytes (%) (Auto) , Eosinophils (%) (Auto) , Basophils (%) (Auto) , Differential Total Cells Counted 100, Neutrophils % (Manual) 75, Lymphocytes % ( Manual) 16L, Monocytes % (Manual) 8, Eosinophils % (Manual) 1, Basophils % ( Manual) 0, Band Neutrophils 0, Platelet Estimate DecreasedL, Platelet Morphology Normal, Hypochromasia 2+, Anisocytosis 1+, Prothrombin Time 10.7, Prothromb Time International Ratio 1.0, Activated Partial Thromboplast Time 30, Sodium Level 145, Potassium Level 3.7, Chloride Level 109H, Carbon Dioxide Level 29, Anion Gap 7, Blood Urea Nitrogen 11, Creatinine 0.7, Estimat Glomerular Filtration Rate , Glucose Level 131H, Calcium Level 8.5 Current Medications Medications (Trade) Dose Ordered Sig/Laure Route PRN Reason Start Time Stop Time Status Last Admin Dose Admin Acetaminophen (Tylenol) 650 mg Q4H PRN ORAL Fever/Headache/Mild Pain 08/02/18 13:21 08/25/18 13:20 Aspirin (ASA) 81 mg DAILY NG 08/03/18 09:00 08/30/18 08:59 Ceftriaxone Sodium 1 gm/ Dextrose 55 ml @ 110 mls/hr DAILY IVPB 08/03/18 09:00 08/05/18 14:59 Dextrose (Dextrose 50%) 25 ml Q30M PRN IV Hypoglycemia 08/02/18 13:45 08/25/18 15:14 Dextrose (Dextrose 50%) 50 ml Q30M PRN IV Hypoglycemia 08/02/18 13:45 08/25/18 15:14 Enoxaparin Sodium (Lovenox) 70 mg Q24H SUBQ 08/03/18 10:00 08/31/18 09:59 Famotidine (Pepcid) 20 mg BID ORAL 08/02/18 18:00 08/25/18 17:59 Insulin Aspart (NovoLOG) BEFORE MEALS AND HS SUBQ 08/02/18 16:30 08/25/18 16:29 Iron Sucrose 200 mg/Sodium Chloride 120 ml @ 240 mls/hr ONCE ONCE IV 08/02/18 17:00 08/02/18 17:29 Potassium Chloride (K-Dur) 40 meq DAILY NG 08/03/18 09:00 09/01/18 08:59 Quetiapine Fumarate (SEROquel) 12.5 mg Q4H PRN ORAL agitation 08/02/18 15:15 08/26/18 11:14 Quetiapine Fumarate (SEROquel) 25 mg Q12HR ORAL 08/02/18 21:00 08/26/18 10:39 Foreign Parekh MD Aug 02, 2018 15:32
[2018-08-02 16:00] VITALS: BP 132/86
[2018-08-02] MEDS ORDERED: Iron Sucrose 200 MG in NS 110 ML IV ONE (17:00)
[2018-08-02 20:00] VITALS: BP 123/66
[2018-08-02] MEDS: D5 1/2NS 1,000 ML IV SCH (20:41)
--- NOTE | 2018-08-02 20:50 | General Progress Note ---
Assessment/Plan Problem List: (1) Dementia with behavioral disturbance ICD Codes: F03.91 - Unspecified dementia with behavioral disturbance SNOMED: 2994104134132 (2) Malnutrition ICD Codes: E46 - Unspecified protein-calorie malnutrition SNOMED: 01983107 (3) Sepsis ICD Codes: A41.9 - Sepsis, unspecified organism SNOMED: 79510380 (4) Dehydration ICD Codes: E86.0 - Dehydration SNOMED: 83825319 (5) UTI (urinary tract infection) ICD Codes: N39.0 - Urinary tract infection, site not specified SNOMED: 01326599 Status: progressing Assessment/Plan confused dementia uti hydronephrosis failed swallow study peg per dr beltran and son Subjective ROS Limited/Unobtainable: Yes Allergies: Coded Allergies: No Known Allergies (Unverified , 07/26/18) Objective Last 24 Hour Vital Signs Date Time Temp Pulse Resp B/P (MAP) Pulse Ox O2 Delivery O2 Flow Rate FiO2 08/02/18 20:00 98.5 96 18 123/66 (85) 96 98.5 08/02/18 16:00 97.7 87 18 132/86 (101) 98 97.7 08/02/18 12:00 98.4 76 17 125/95 (105) 95 98.4 08/02/18 12:00 73 08/02/18 08:00 74 08/02/18 08:00 97.6 82 21 150/71 (97) 96 97.6 08/02/18 07:57 Room Air 08/02/18 04:00 98.1 82 18 133/71 (91) 96 98.1 08/02/18 03:29 74 08/02/18 00:00 98.2 80 18 134/70 (91) 96 98.2 08/01/18 23:30 78 08/01/18 21:00 Room Air Intake and Output 08/01/18 08/02/18 19:00 07:00 Intake Total 955 ml 600 ml Balance 955 ml 600 ml IV Total 355 ml Tube Feeding 600 ml 600 ml # Voids 6 1 # Bowel Movements 5 1 Laboratory Tests 08/02/18 04:00: White Blood Count 2.5L, Red Blood Count 2.82L, Hemoglobin 8.5L, Hematocrit 25.2L , Mean Corpuscular Volume 89, Mean Corpuscular Hemoglobin 30.0, Mean Corpuscular Hemoglobin Concent 33.6, Red Cell Distribution Width 14.4, Platelet Count 65L, Mean Platelet Volume 8.8, Neutrophils (%) (Auto) , Lymphocytes (%) ( Auto) , Monocytes (%) (Auto) , Eosinophils (%) (Auto) , Basophils (%) (Auto) , Differential Total Cells Counted 100, Neutrophils % (Manual) 75, Lymphocytes % ( Manual) 16L, Monocytes % (Manual) 8, Eosinophils % (Manual) 1, Basophils % ( Manual) 0, Band Neutrophils 0, Platelet Estimate DecreasedL, Platelet Morphology Normal, Hypochromasia 2+, Anisocytosis 1+, Prothrombin Time 10.7, Prothromb Time International Ratio 1.0, Activated Partial Thromboplast Time 30, Sodium Level 145, Potassium Level 3.7, Chloride Level 109H, Carbon Dioxide Level 29, Anion Gap 7, Blood Urea Nitrogen 11, Creatinine 0.7, Estimat Glomerular Filtration Rate , Glucose Level 131H, Calcium Level 8.5 Height (Feet): 5 Height (Inches): 2.00 Weight (Pounds): 102 General Appearance: confused Cardiovascular: normal rate Respiratory/Chest: lungs clear Yi Asencio MD Aug 02, 2018 20:50
--- NOTE | 2018-08-02 21:48 | General Progress Note ---
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 2. Dementia. PLAN: 1. We will continue the Seroquel. 2. Provide reality orientation and supportive therapy. 3. Bilateral soft restraint. Subjective Date patient seen: Aug 02, 2018 Neurologic/Psychiatric: Reports: anxiety, depressed, emotional problems Allergies: Coded Allergies: No Known Allergies (Unverified , 07/26/18) Objective Last 24 Hour Vital Signs Date Time Temp Pulse Resp B/P (MAP) Pulse Ox O2 Delivery O2 Flow Rate FiO2 08/02/18 21:00 Room Air 08/02/18 20:00 98.5 96 18 123/66 (85) 96 98.5 08/02/18 16:00 97.7 87 18 132/86 (101) 98 97.7 08/02/18 12:00 98.4 76 17 125/95 (105) 95 98.4 08/02/18 12:00 73 08/02/18 08:00 74 08/02/18 08:00 97.6 82 21 150/71 (97) 96 97.6 08/02/18 07:57 Room Air 08/02/18 04:00 98.1 82 18 133/71 (91) 96 98.1 08/02/18 03:29 74 08/02/18 00:00 98.2 80 18 134/70 (91) 96 98.2 08/01/18 23:30 78 Intake and Output 08/01/18 08/02/18 19:00 07:00 Intake Total 955 ml 600 ml Balance 955 ml 600 ml IV Total 355 ml Tube Feeding 600 ml 600 ml # Voids 6 1 # Bowel Movements 5 1 Laboratory Tests 08/02/18 04:00: White Blood Count 2.5L, Red Blood Count 2.82L, Hemoglobin 8.5L, Hematocrit 25.2L , Mean Corpuscular Volume 89, Mean Corpuscular Hemoglobin 30.0, Mean Corpuscular Hemoglobin Concent 33.6, Red Cell Distribution Width 14.4, Platelet Count 65L, Mean Platelet Volume 8.8, Neutrophils (%) (Auto) , Lymphocytes (%) ( Auto) , Monocytes (%) (Auto) , Eosinophils (%) (Auto) , Basophils (%) (Auto) , Differential Total Cells Counted 100, Neutrophils % (Manual) 75, Lymphocytes % ( Manual) 16L, Monocytes % (Manual) 8, Eosinophils % (Manual) 1, Basophils % ( Manual) 0, Band Neutrophils 0, Platelet Estimate DecreasedL, Platelet Morphology Normal, Hypochromasia 2+, Anisocytosis 1+, Prothrombin Time 10.7, Prothromb Time International Ratio 1.0, Activated Partial Thromboplast Time 30, Sodium Level 145, Potassium Level 3.7, Chloride Level 109H, Carbon Dioxide Level 29, Anion Gap 7, Blood Urea Nitrogen 11, Creatinine 0.7, Estimat Glomerular Filtration Rate , Glucose Level 131H, Calcium Level 8.5 Height (Feet): 5 Height (Inches): 2.00 Weight (Pounds): 102 General Appearance: no apparent distress, alert, confused, agitated Kimmy Chavez MD Aug 02, 2018 21:48
[2018-08-03] VITALS: BP 136/66
[2018-08-03 04:00] VITALS: BP 148/73
[2018-08-03] MEDS: NovoLOG Insulin Flexpen SUBQ SCH ×4 (05:45→21:12)
[2018-08-03 06:40] LABS: HEMATOCRIT 26.7 % (37.0-47.0); HEMOGLOBIN 8.8 G/DL (12.0-16.0); MEAN CORPUSCULAR VOLUME 91 FL (80-99); PLATELET COUNT 64 K/UL (150-450); RED BLOOD COUNT 2.92 M/UL (4.20-5.40); RED CELL DISTRIBUTION WIDTH 14.8 % (11.6-14.8); WHITE BLOOD COUNT 2.8 K/UL (4.8-10.8)
[2018-08-03 06:47] LABS: INR 1.1 (0.9-1.1)
[2018-08-03 07:03] LABS: ANION GAP 4 mmol/L (5-15); BLOOD UREA NITROGEN 9 mg/dL (7-18); CALCIUM 8.7 MG/DL (8.5-10.1); CARBON DIOXIDE 32 MMOL/L (21-32); CHLORIDE 108 MMOL/L (98-107); CREATININE 0.7 MG/DL (0.55-1.30); POTASSIUM 3.5 MMOL/L (3.5-5.1); SODIUM 144 MMOL/L (136-145)
[2018-08-03 08:00] VITALS: BP 147/71
[2018-08-03] MEDS: Aspirin Baby 81mg NG SCH ×2 (08:28→08:51)
[2018-08-03] MEDS: cefTRIAXone 1 GM in D5W 55 ML IVPB SCH (08:33)
[2018-08-03] MEDS: D5 1/2NS 1,000 ML IV SCH (08:34)
--- NOTE | 2018-08-03 09:05 | Diagnostic Imaging Report ---
Indication: Status post nasogastric tube placement Technique: Supine view of the abdomen Comparison: 07/31/2018 Findings: There is a nasogastric tube in place, tip projected at the level gastric body. Bowel gas pattern is unremarkable. Small amount of contrast is seen within the small bowel, presumably related to recent video swallowing study Impression: Satisfactory nasogastric intubation Other findings as noted This agrees with the preliminary interpretation provided overnight by [facility] teleradiology service.
[2018-08-03] MEDS: Enoxaparin Sodium 300mg/3ml vial SUBQ SCH (10:00)
--- NOTE | 2018-08-03 10:50 | GI Progress Note ---
Assessment/Plan Problems: (1) UTI (urinary tract infection) ICD Codes: N39.0 - Urinary tract infection, site not specified SNOMED: 02355246 (2) Sepsis ICD Codes: A41.9 - Sepsis, unspecified organism SNOMED: 68087707 (3) Dehydration ICD Codes: E86.0 - Dehydration SNOMED: 31941903 (4) Malnutrition ICD Codes: E46 - Unspecified protein-calorie malnutrition SNOMED: 07007288 (5) Dementia with behavioral disturbance ICD Codes: F03.91 - Unspecified dementia with behavioral disturbance SNOMED: 0100642006249 Status: not improved, unchanged Status Narrative Discussed with Dr. Argueta. Assessment/Plan abdominal U/S reviewed >> normal liver echogenicity ST evaluation passed on puree Calorie count reviewed with RD >> patient is only meeting 50% of nutritional needs son is still indecisive regarding possible GT placement video swallow failed, son informed to make decision today. PEG scheduled tomorrow @ 7am. - NPO + IVFs - hold all blood thinners prn transfusions ppi abx zofran prn fu labs The patient was seen and examined at bedside and all new and available data was reviewed in the patients chart. I agree with the above findings, impression and plan. (Patient seen earlier today. Signature stamp does not reflect patient encounter time.). - Edwardo Argueta MD Subjective Subjective limited Objective Last 24 Hour Vital Signs Date Time Temp Pulse Resp B/P (MAP) Pulse Ox O2 Delivery O2 Flow Rate FiO2 08/03/18 08:00 97.7 68 16 147/71 (96) 97 97.7 08/03/18 04:00 96.7 75 16 148/73 (98) 97 96.7 08/03/18 00:00 97.7 79 18 136/66 (89) 95 97.7 08/02/18 21:00 Room Air 08/02/18 20:00 98.5 96 18 123/66 (85) 96 98.5 08/02/18 16:00 97.7 87 18 132/86 (101) 98 97.7 08/02/18 12:00 98.4 76 17 125/95 (105) 95 98.4 08/02/18 12:00 73 Intake and Output 08/02/18 08/03/18 19:00 07:00 Intake Total 110 ml 1060 ml Balance 110 ml 1060 ml Free Water 60 ml IV Total 110 ml 750 ml Tube Feeding 250 ml # Voids 2 2 # Bowel Movements 2 1 Laboratory Tests Test 08/03/18 05:30 White Blood Count 2.8 K/UL (4.8-10.8) L Red Blood Count 2.92 M/UL (4.20-5.40) L Hemoglobin 8.8 G/DL (12.0-16.0) L Hematocrit 26.7 % (37.0-47.0) L Mean Corpuscular Volume 91 FL (80-99) Mean Corpuscular Hemoglobin 30.0 PG (27.0-31.0) Mean Corpuscular Hemoglobin Concent 32.9 G/DL (32.0-36.0) Red Cell Distribution Width 14.8 % (11.6-14.8) Platelet Count 64 K/UL (150-450) L Mean Platelet Volume 9.0 FL (6.5-10.1) Neutrophils (%) (Auto) % (45.0-75.0) Lymphocytes (%) (Auto) % (20.0-45.0) Monocytes (%) (Auto) % (1.0-10.0) Eosinophils (%) (Auto) % (0.0-3.0) Basophils (%) (Auto) % (0.0-2.0) Differential Total Cells Counted 100 Neutrophils % (Manual) 68 % (45-75) Lymphocytes % (Manual) 17 % (20-45) L Monocytes % (Manual) 11 % (1-10) H Eosinophils % (Manual) 4 % (0-3) H Basophils % (Manual) 0 % (0-2) Band Neutrophils 0 % (0-8) Platelet Estimate Decreased L Platelet Morphology Normal Hypochromasia 2+ Anisocytosis 1+ Spherocytes 1+ Prothrombin Time 12.0 SEC (9.30-11.50) H Prothromb Time International Ratio 1.1 (0.9-1.1) Sodium Level 144 MMOL/L (136-145) Potassium Level 3.5 MMOL/L (3.5-5.1) Chloride Level 108 MMOL/L (98-107) H Carbon Dioxide Level 32 MMOL/L (21-32) Anion Gap 4 mmol/L (5-15) L Blood Urea Nitrogen 9 mg/dL (7-18) Creatinine 0.7 MG/DL (0.55-1.30) Estimat Glomerular Filtration Rate mL/min (>60) Glucose Level 137 MG/DL (74-106) H Calcium Level 8.7 MG/DL (8.5-10.1) Height (Feet): 5 Height (Inches): 2.00 Weight (Pounds): 116 General Appearance: thin Cardiovascular: normal rate Respiratory/Chest: normal breath sounds, no respiratory distress Abdominal Exam: normal bowel sounds, non tender, soft Extremities: non-tender Aidee Powell NP Aug 03, 2018 10:50
--- NOTE | 2018-08-03 11:11 | Nephrology Progress Note ---
Assessment/Plan Problem List: (1) UTI (urinary tract infection) (2) Dehydration (3) Hypernatremia (4) Hypokalemia (5) Malnutrition Assessment failed swallow test Dehydration- Hypernatremia DM OOC Anemia UTI Malnutrition Plan ? PEG IV iron mag and K supplement KCL as needed check labs Per consultants Subjective ROS Limited/Unobtainable: No Objective Objective Last 24 Hour Vital Signs Date Time Temp Pulse Resp B/P (MAP) Pulse Ox O2 Delivery O2 Flow Rate FiO2 08/03/18 08:00 97.7 68 16 147/71 (96) 97 97.7 08/03/18 04:00 96.7 75 16 148/73 (98) 97 96.7 08/03/18 00:00 97.7 79 18 136/66 (89) 95 97.7 08/02/18 21:00 Room Air 08/02/18 20:00 98.5 96 18 123/66 (85) 96 98.5 08/02/18 16:00 97.7 87 18 132/86 (101) 98 97.7 08/02/18 12:00 98.4 76 17 125/95 (105) 95 98.4 08/02/18 12:00 73 Intake and Output 08/02/18 08/03/18 19:00 07:00 Intake Total 110 ml 1060 ml Balance 110 ml 1060 ml Free Water 60 ml IV Total 110 ml 750 ml Tube Feeding 250 ml # Voids 2 2 # Bowel Movements 2 1 Laboratory Tests 08/03/18 05:30: White Blood Count 2.8L, Red Blood Count 2.92L, Hemoglobin 8.8L, Hematocrit 26.7L , Mean Corpuscular Volume 91, Mean Corpuscular Hemoglobin 30.0, Mean Corpuscular Hemoglobin Concent 32.9, Red Cell Distribution Width 14.8, Platelet Count 64L, Mean Platelet Volume 9.0, Neutrophils (%) (Auto) , Lymphocytes (%) ( Auto) , Monocytes (%) (Auto) , Eosinophils (%) (Auto) , Basophils (%) (Auto) , Differential Total Cells Counted 100, Neutrophils % (Manual) 68, Lymphocytes % ( Manual) 17L, Monocytes % (Manual) 11H, Eosinophils % (Manual) 4H, Basophils % ( Manual) 0, Band Neutrophils 0, Platelet Estimate DecreasedL, Platelet Morphology Normal, Hypochromasia 2+, Anisocytosis 1+, Spherocytes 1+, Prothrombin Time 12.0H, Prothromb Time International Ratio 1.1, Sodium Level 144 , Potassium Level 3.5, Chloride Level 108H, Carbon Dioxide Level 32, Anion Gap 4L, Blood Urea Nitrogen 9, Creatinine 0.7, Estimat Glomerular Filtration Rate , Glucose Level 137H, Calcium Level 8.7 Height (Feet): 5 Height (Inches): 2.00 Weight (Pounds): 116 General Appearance: no apparent distress Objective no change Parvez Bergman MD Aug 03, 2018 11:11
--- NOTE | 2018-08-03 11:29 | Pulmonology Progress Note ---
Assessment/Plan Assessment/Plan ASSESSMENT: The patient is a 78-year-old female, jail resident with a presumed history of dementia, hypertension, and hyperlipidemia, presenting with a systemic inflammatory response syndrome, gram-negative bacillus UTI, and acute left superficial vein DVT with likely pulmonary embolism as well. PROBLEM LIST: 1. Extensive left superficial vein DVT (this is a deep vein). 2. Likely pulmonary embolism as well. 3. Hypoxemia. 4. Gram-negative bacillus UTI. 5. GPC bacteremia 6. Hypernatremia and hypokalemia. 7. Protein-calorie malnutrition. 8. Likely underlying dementia versus encephalopathy. 9. Hypertension. 10. Hyperlipidemia. 11. Thrombocytopenia. 12. Normocytic anemia. 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 Subjective Allergies: Coded Allergies: No Known Allergies (Unverified , 07/26/18) Subjective AFVSS, leta AC, no bleeding No distress, no cough, no SOB, no F/C PEG postponed Objective Last 24 Hour Vital Signs Date Time Temp Pulse Resp B/P (MAP) Pulse Ox O2 Delivery O2 Flow Rate FiO2 08/03/18 08:00 97.7 68 16 147/71 (96) 97 97.7 08/03/18 04:00 96.7 75 16 148/73 (98) 97 96.7 08/03/18 00:00 97.7 79 18 136/66 (89) 95 97.7 08/02/18 21:00 Room Air 08/02/18 20:00 98.5 96 18 123/66 (85) 96 98.5 08/02/18 16:00 97.7 87 18 132/86 (101) 98 97.7 08/02/18 12:00 98.4 76 17 125/95 (105) 95 98.4 08/02/18 12:00 73 Intake and Output 08/02/18 08/03/18 19:00 07:00 Intake Total 110 ml 1060 ml Balance 110 ml 1060 ml Free Water 60 ml IV Total 110 ml 750 ml Tube Feeding 250 ml # Voids 2 2 # Bowel Movements 2 1 General Appearance: cachetic HEENT: normocephalic, atraumatic, anicteric, mucous membranes moist Respiratory/Chest: chest wall non-tender, lungs clear, normal breath sounds, no respiratory distress Cardiovascular: normal peripheral pulses, normal rate, regular rhythm Abdomen: normal bowel sounds, soft, non tender, no organomegaly, non distended Extremities: no cyanosis, no clubbing, no edema Laboratory Tests 08/03/18 05:30: White Blood Count 2.8L, Red Blood Count 2.92L, Hemoglobin 8.8L, Hematocrit 26.7L , Mean Corpuscular Volume 91, Mean Corpuscular Hemoglobin 30.0, Mean Corpuscular Hemoglobin Concent 32.9, Red Cell Distribution Width 14.8, Platelet Count 64L, Mean Platelet Volume 9.0, Neutrophils (%) (Auto) , Lymphocytes (%) ( Auto) , Monocytes (%) (Auto) , Eosinophils (%) (Auto) , Basophils (%) (Auto) , Differential Total Cells Counted 100, Neutrophils % (Manual) 68, Lymphocytes % ( Manual) 17L, Monocytes % (Manual) 11H, Eosinophils % (Manual) 4H, Basophils % ( Manual) 0, Band Neutrophils 0, Platelet Estimate DecreasedL, Platelet Morphology Normal, Hypochromasia 2+, Anisocytosis 1+, Spherocytes 1+, Prothrombin Time 12.0H, Prothromb Time International Ratio 1.1, Sodium Level 144 , Potassium Level 3.5, Chloride Level 108H, Carbon Dioxide Level 32, Anion Gap 4L, Blood Urea Nitrogen 9, Creatinine 0.7, Estimat Glomerular Filtration Rate , Glucose Level 137H, Calcium Level 8.7 Current Medications Medications (Trade) Dose Ordered Sig/Laure Route PRN Reason Start Time Stop Time Status Last Admin Dose Admin Acetaminophen (Tylenol) 650 mg Q4H PRN ORAL Fever/Headache/Mild Pain 08/02/18 13:21 08/25/18 13:20 Aspirin (ASA) 81 mg DAILY NG 08/03/18 09:00 08/30/18 08:59 Ceftriaxone Sodium 1 gm/ Dextrose 55 ml @ 110 mls/hr DAILY IVPB 08/03/18 09:00 08/05/18 14:59 08/03/18 08:33 Dextrose (Dextrose 50%) 25 ml Q30M PRN IV Hypoglycemia 08/02/18 13:45 08/25/18 15:14 Dextrose (Dextrose 50%) 50 ml Q30M PRN IV Hypoglycemia 08/02/18 13:45 08/25/18 15:14 Dextrose/ Electrolytes 1,000 ml @ 75 mls/hr [id number] IV 08/03/18 12:00 09/02/18 11:59 Enoxaparin Sodium (Lovenox) 70 mg Q24H SUBQ 08/03/18 10:00 08/31/18 09:59 Famotidine (Pepcid) 20 mg BID ORAL 08/02/18 18:00 08/25/18 17:59 08/03/18 08:52 Insulin Aspart (NovoLOG) BEFORE MEALS AND HS SUBQ 08/02/18 16:30 08/25/18 16:29 08/03/18 05:45 Potassium Chloride (K-Dur) 40 meq DAILY NG 08/03/18 09:00 09/01/18 08:59 08/03/18 08:52 Quetiapine Fumarate (SEROquel) 12.5 mg Q4H PRN ORAL agitation 08/02/18 15:15 08/26/18 11:14 Quetiapine Fumarate (SEROquel) 25 mg Q12HR ORAL 08/02/18 21:00 08/26/18 10:39 08/03/18 08:52 Foreign Parekh MD Aug 03, 2018 11:29
[2018-08-03 12:00] VITALS: BP 153/68
[2018-08-03] MEDS: D5 1/2NS w/KCl 20mEq 1,000 ML IV SCH (12:12)
--- NOTE | 2018-08-03 12:57 | Infectious Diseases Prog Note ---
Assessment/Plan Assessment/Plan A; Sepsis/ SIRS treated Bacteremia, likelly contamination UTI with E.coli treated DVT of left leg, ? PE DM type 2 Anemia Thrombocytopenia Leukopenia P; Observe off antibiotic Subjective ROS Limited/Unobtainable: Yes Allergies: Coded Allergies: No Known Allergies (Unverified , 07/26/18) Objective Vital Signs Last 24 Hour Vital Signs Date Time Temp Pulse Resp B/P (MAP) Pulse Ox O2 Delivery O2 Flow Rate FiO2 08/03/18 09:00 Room Air 08/03/18 08:00 97.7 68 16 147/71 (96) 97 97.7 08/03/18 04:00 96.7 75 16 148/73 (98) 97 96.7 08/03/18 00:00 97.7 79 18 136/66 (89) 95 97.7 08/02/18 21:00 Room Air 08/02/18 20:00 98.5 96 18 123/66 (85) 96 98.5 08/02/18 16:00 97.7 87 18 132/86 (101) 98 97.7 Height (Feet): 5 Height (Inches): 2.00 Weight (Pounds): 116 General Appearance: no acute distress HEENT: mucous membranes moist Cardiovascular: normal rate Abdomen: soft, non tender Extremities: no edema Neurologic/Psychiatric: other - awake, off restraint Laboratory Tests Test 08/03/18 05:30 White Blood Count 2.8 K/UL (4.8-10.8) L Red Blood Count 2.92 M/UL (4.20-5.40) L Hemoglobin 8.8 G/DL (12.0-16.0) L Hematocrit 26.7 % (37.0-47.0) L Mean Corpuscular Volume 91 FL (80-99) Mean Corpuscular Hemoglobin 30.0 PG (27.0-31.0) Mean Corpuscular Hemoglobin Concent 32.9 G/DL (32.0-36.0) Red Cell Distribution Width 14.8 % (11.6-14.8) Platelet Count 64 K/UL (150-450) L Mean Platelet Volume 9.0 FL (6.5-10.1) Neutrophils (%) (Auto) % (45.0-75.0) Lymphocytes (%) (Auto) % (20.0-45.0) Monocytes (%) (Auto) % (1.0-10.0) Eosinophils (%) (Auto) % (0.0-3.0) Basophils (%) (Auto) % (0.0-2.0) Differential Total Cells Counted 100 Neutrophils % (Manual) 68 % (45-75) Lymphocytes % (Manual) 17 % (20-45) L Monocytes % (Manual) 11 % (1-10) H Eosinophils % (Manual) 4 % (0-3) H Basophils % (Manual) 0 % (0-2) Band Neutrophils 0 % (0-8) Platelet Estimate Decreased L Platelet Morphology Normal Hypochromasia 2+ Anisocytosis 1+ Spherocytes 1+ Prothrombin Time 12.0 SEC (9.30-11.50) H Prothromb Time International Ratio 1.1 (0.9-1.1) Sodium Level 144 MMOL/L (136-145) Potassium Level 3.5 MMOL/L (3.5-5.1) Chloride Level 108 MMOL/L (98-107) H Carbon Dioxide Level 32 MMOL/L (21-32) Anion Gap 4 mmol/L (5-15) L Blood Urea Nitrogen 9 mg/dL (7-18) Creatinine 0.7 MG/DL (0.55-1.30) Estimat Glomerular Filtration Rate mL/min (>60) Glucose Level 137 MG/DL (74-106) H Calcium Level 8.7 MG/DL (8.5-10.1) Current Medications Medications (Trade) Dose Ordered Sig/Laure Route PRN Reason Start Time Stop Time Status Last Admin Dose Admin Acetaminophen (Tylenol) 650 mg Q4H PRN ORAL Fever/Headache/Mild Pain 08/02/18 13:21 08/25/18 13:20 Aspirin (ASA) 81 mg DAILY NG 08/03/18 09:00 08/30/18 08:59 Ceftriaxone Sodium 1 gm/ Dextrose 55 ml @ 110 mls/hr DAILY IVPB 08/03/18 09:00 08/05/18 14:59 08/03/18 08:33 Dextrose (Dextrose 50%) 25 ml Q30M PRN IV Hypoglycemia 08/02/18 13:45 08/25/18 15:14 Dextrose (Dextrose 50%) 50 ml Q30M PRN IV Hypoglycemia 08/02/18 13:45 08/25/18 15:14 Dextrose/ Electrolytes 1,000 ml @ 75 mls/hr [id number] IV 08/03/18 12:00 09/02/18 11:59 08/03/18 12:12 Enoxaparin Sodium (Lovenox) 70 mg Q24H SUBQ 08/03/18 10:00 08/31/18 09:59 Famotidine (Pepcid) 20 mg BID ORAL 08/02/18 18:00 08/25/18 17:59 08/03/18 08:52 Insulin Aspart (NovoLOG) BEFORE MEALS AND HS SUBQ 08/02/18 16:30 08/25/18 16:29 08/03/18 05:45 Potassium Chloride (K-Dur) 40 meq DAILY NG 08/03/18 09:00 09/01/18 08:59 08/03/18 08:52 Quetiapine Fumarate (SEROquel) 12.5 mg Q4H PRN ORAL agitation 08/02/18 15:15 08/26/18 11:14 Quetiapine Fumarate (SEROquel) 25 mg Q12HR ORAL 08/02/18 21:00 08/26/18 10:39 08/03/18 08:52 Shimon Card MD Aug 03, 2018 12:57
[2018-08-03] MEDS ORDERED: Sterile Water Irrig 1000ml IRRIG ONE (13:38)
[2018-08-03] MEDS ORDERED: D5 1/2NS 1000ml IV ONE (13:38)
--- NOTE | 2018-08-03 13:44 | General Progress Note ---
Assessment/Plan Status: stable Assessment/Plan # DVT of the left leg -- superficial femoral vein which is a deep vein, new onset, has not had these symptoms before. --> discussed with renal, have stopped heparin gtt --> continue Lovenox as bridge and Coumadin --> INR goal 2-3 --> if plts drop any further, consider a IVC filter placement --> monitor platelet count closely --> appreciate Dr. Parekh and Mariam recs --> Plt count at 64k # Pancytopenia, this is her first time here at [facility], do not have baseline, appears new baseline 50-70k, several causes possible including viral, medication or intrabone marrow related. --> Cont to monitor plt count for improvement --> US abd: Mild left hydronephrosis. Possible left renal calyceal calculi. Negative for gallstones or dilated ducts Debris noted within the bladder --> Hep panel and HIV are both negative --> given extremely poor condition do not recommend a bone marrow biopsy, have discussed with family 08/01 with --> Current plt count 64k # Anemia of chronic disease. Multifactorial. Since admission Hgb has consistently remained between 8-9. --> Cont to monitor for stability --> Hgb goal above 7. Transfuse prn. --> Currently stable. --> IV iron completed # Dehydration. IVF has been administered # DM OOC --> A1C goal less than 7 --> Cont on insulin # UTI. --> ID is following. Appreciate recs. --> Pt on IV abx. --> Cultures - gram negative bacillus # PEG placement pending. Son has signed consent. Greatly appreciate consultation! Subjective Date patient seen: Aug 03, 2018 ROS Limited/Unobtainable: Yes Hematologic/Lymphatic: Reports: anemia Allergies: Coded Allergies: No Known Allergies (Unverified , 07/26/18) Subjective Son has signed consent for PEG placement. Objective Last 24 Hour Vital Signs Date Time Temp Pulse Resp B/P (MAP) Pulse Ox O2 Delivery O2 Flow Rate FiO2 08/03/18 12:00 98.0 72 17 153/68 (96) 98 98.0 08/03/18 09:00 Room Air 08/03/18 08:00 97.7 68 16 147/71 (96) 97 97.7 08/03/18 04:00 96.7 75 16 148/73 (98) 97 96.7 08/03/18 00:00 97.7 79 18 136/66 (89) 95 97.7 08/02/18 21:00 Room Air 08/02/18 20:00 98.5 96 18 123/66 (85) 96 98.5 08/02/18 16:00 97.7 87 18 132/86 (101) 98 97.7 Intake and Output 08/02/18 08/03/18 19:00 07:00 Intake Total 110 ml 1060 ml Balance 110 ml 1060 ml Free Water 60 ml IV Total 110 ml 750 ml Tube Feeding 250 ml # Voids 2 2 # Bowel Movements 2 1 Laboratory Tests 08/03/18 05:30: White Blood Count 2.8L, Red Blood Count 2.92L, Hemoglobin 8.8L, Hematocrit 26.7L , Mean Corpuscular Volume 91, Mean Corpuscular Hemoglobin 30.0, Mean Corpuscular Hemoglobin Concent 32.9, Red Cell Distribution Width 14.8, Platelet Count 64L, Mean Platelet Volume 9.0, Neutrophils (%) (Auto) , Lymphocytes (%) ( Auto) , Monocytes (%) (Auto) , Eosinophils (%) (Auto) , Basophils (%) (Auto) , Differential Total Cells Counted 100, Neutrophils % (Manual) 68, Lymphocytes % ( Manual) 17L, Monocytes % (Manual) 11H, Eosinophils % (Manual) 4H, Basophils % ( Manual) 0, Band Neutrophils 0, Platelet Estimate DecreasedL, Platelet Morphology Normal, Hypochromasia 2+, Anisocytosis 1+, Spherocytes 1+, Prothrombin Time 12.0H, Prothromb Time International Ratio 1.1, Sodium Level 144 , Potassium Level 3.5, Chloride Level 108H, Carbon Dioxide Level 32, Anion Gap 4L, Blood Urea Nitrogen 9, Creatinine 0.7, Estimat Glomerular Filtration Rate , Glucose Level 137H, Calcium Level 8.7 Height (Feet): 5 Height (Inches): 2.00 Weight (Pounds): 116 General Appearance: no apparent distress EENT: PERRL/EOMI Neck: normal alignment Cardiovascular: normal peripheral pulses Respiratory/Chest: no respiratory distress Abdomen: soft Dewayne Gayle MD Aug 03, 2018 13:44
[2018-08-03 16:00] VITALS: BP 147/66
--- NOTE | 2018-08-03 18:09 | General Progress Note ---
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 2. Dementia. PLAN: 1. We will continue the Seroquel. 2. Provide reality orientation and supportive therapy. 3. Bilateral soft restraint. 4. the pt s son should sign the consent Subjective Date patient seen: Aug 03, 2018 Neurologic/Psychiatric: Reports: anxiety Allergies: Coded Allergies: No Known Allergies (Unverified , 07/26/18) Subjective the pt is confused lacks capacity to make decisions Objective Last 24 Hour Vital Signs Date Time Temp Pulse Resp B/P (MAP) Pulse Ox O2 Delivery O2 Flow Rate FiO2 08/03/18 16:00 97.3 69 18 147/66 (93) 98 08/03/18 12:00 98.0 72 17 153/68 (96) 98 98.0 08/03/18 09:00 Room Air 08/03/18 08:00 97.7 68 16 147/71 (96) 97 97.7 08/03/18 04:00 96.7 75 16 148/73 (98) 97 96.7 08/03/18 00:00 97.7 79 18 136/66 (89) 95 97.7 08/02/18 21:00 Room Air 08/02/18 20:00 98.5 96 18 123/66 (85) 96 98.5 Intake and Output 08/02/18 08/03/18 19:00 07:00 Intake Total 110 ml 1060 ml Balance 110 ml 1060 ml Free Water 60 ml IV Total 110 ml 750 ml Tube Feeding 250 ml # Voids 2 2 # Bowel Movements 2 1 Laboratory Tests 08/03/18 05:30: White Blood Count 2.8L, Red Blood Count 2.92L, Hemoglobin 8.8L, Hematocrit 26.7L , Mean Corpuscular Volume 91, Mean Corpuscular Hemoglobin 30.0, Mean Corpuscular Hemoglobin Concent 32.9, Red Cell Distribution Width 14.8, Platelet Count 64L, Mean Platelet Volume 9.0, Neutrophils (%) (Auto) , Lymphocytes (%) ( Auto) , Monocytes (%) (Auto) , Eosinophils (%) (Auto) , Basophils (%) (Auto) , Differential Total Cells Counted 100, Neutrophils % (Manual) 68, Lymphocytes % ( Manual) 17L, Monocytes % (Manual) 11H, Eosinophils % (Manual) 4H, Basophils % ( Manual) 0, Band Neutrophils 0, Platelet Estimate DecreasedL, Platelet Morphology Normal, Hypochromasia 2+, Anisocytosis 1+, Spherocytes 1+, Prothrombin Time 12.0H, Prothromb Time International Ratio 1.1, Sodium Level 144 , Potassium Level 3.5, Chloride Level 108H, Carbon Dioxide Level 32, Anion Gap 4L, Blood Urea Nitrogen 9, Creatinine 0.7, Estimat Glomerular Filtration Rate , Glucose Level 137H, Calcium Level 8.7 Height (Feet): 5 Height (Inches): 2.00 Weight (Pounds): 116 General Appearance: no apparent distress, alert, confused, agitated Kimmy Chavez MD Aug 03, 2018 18:09
[2018-08-03 20:00] VITALS: BP 157/73
--- NOTE | 2018-08-03 21:35 | General Progress Note ---
Assessment/Plan Problem List: (1) Dementia with behavioral disturbance ICD Codes: F03.91 - Unspecified dementia with behavioral disturbance SNOMED: 8802739861504 (2) Malnutrition ICD Codes: E46 - Unspecified protein-calorie malnutrition SNOMED: 76294245 (3) Sepsis ICD Codes: A41.9 - Sepsis, unspecified organism SNOMED: 13767985 (4) Dehydration ICD Codes: E86.0 - Dehydration SNOMED: 60948302 (5) UTI (urinary tract infection) ICD Codes: N39.0 - Urinary tract infection, site not specified SNOMED: 07995808 Status: progressing Assessment/Plan peg in am per dr beltran malnutrition afebrile dementia uti hydronephrosis failed swallow study peg per dr beltran and son Subjective ROS Limited/Unobtainable: Yes Allergies: Coded Allergies: No Known Allergies (Unverified , 07/26/18) Objective Last 24 Hour Vital Signs Date Time Temp Pulse Resp B/P (MAP) Pulse Ox O2 Delivery O2 Flow Rate FiO2 08/03/18 20:00 97.8 75 19 157/73 (101) 98 08/03/18 16:00 97.3 69 18 147/66 (93) 98 08/03/18 12:00 98.0 72 17 153/68 (96) 98 98.0 08/03/18 09:00 Room Air 08/03/18 08:00 97.7 68 16 147/71 (96) 97 97.7 08/03/18 04:00 96.7 75 16 148/73 (98) 97 96.7 08/03/18 00:00 97.7 79 18 136/66 (89) 95 97.7 Intake and Output 08/02/18 08/03/18 19:00 07:00 Intake Total 110 ml 1060 ml Balance 110 ml 1060 ml Free Water 60 ml IV Total 110 ml 750 ml Tube Feeding 250 ml # Voids 2 2 # Bowel Movements 2 1 Laboratory Tests 08/03/18 05:30: White Blood Count 2.8L, Red Blood Count 2.92L, Hemoglobin 8.8L, Hematocrit 26.7L , Mean Corpuscular Volume 91, Mean Corpuscular Hemoglobin 30.0, Mean Corpuscular Hemoglobin Concent 32.9, Red Cell Distribution Width 14.8, Platelet Count 64L, Mean Platelet Volume 9.0, Neutrophils (%) (Auto) , Lymphocytes (%) ( Auto) , Monocytes (%) (Auto) , Eosinophils (%) (Auto) , Basophils (%) (Auto) , Differential Total Cells Counted 100, Neutrophils % (Manual) 68, Lymphocytes % ( Manual) 17L, Monocytes % (Manual) 11H, Eosinophils % (Manual) 4H, Basophils % ( Manual) 0, Band Neutrophils 0, Platelet Estimate DecreasedL, Platelet Morphology Normal, Hypochromasia 2+, Anisocytosis 1+, Spherocytes 1+, Prothrombin Time 12.0H, Prothromb Time International Ratio 1.1, Sodium Level 144 , Potassium Level 3.5, Chloride Level 108H, Carbon Dioxide Level 32, Anion Gap 4L, Blood Urea Nitrogen 9, Creatinine 0.7, Estimat Glomerular Filtration Rate , Glucose Level 137H, Calcium Level 8.7 Height (Feet): 5 Height (Inches): 2.00 Weight (Pounds): 116 General Appearance: confused Cardiovascular: regular rhythm Respiratory/Chest: lungs clear Yi Asencio MD Aug 03, 2018 21:35
[2018-08-03] MEDS ORDERED: Haloperidol 5mg/ml Inj IM PRN (23:30)
[2018-08-03] MEDS ORDERED: LORazepam Inj 2mg/ml 1ml IM PRN (23:30)
[2018-08-04] VITALS (9 sets, daily range): BP systolic 110–157; BP diastolic 63–84
[2018-08-04] MEDS: D5 1/2NS w/KCl 20mEq 1,000 ML IV SCH ×2 (01:27→17:05)
[2018-08-04] MEDS ORDERED: Propofol 200mg/20ml IV ONE (06:00)
[2018-08-04] MEDS ORDERED: Lidocaine 1% MPF 10mg/ml 5ml ONE (06:00)
[2018-08-04] MEDS: NovoLOG Insulin Flexpen SUBQ SCH ×4 (06:05→21:05)
[2018-08-04 06:36] LABS: HEMATOCRIT 29.6 % (37.0-47.0); HEMOGLOBIN 10.1 G/DL (12.0-16.0); MEAN CORPUSCULAR VOLUME 91 FL (80-99); PLATELET COUNT 82 K/UL (150-450); RED BLOOD COUNT 3.25 M/UL (4.20-5.40); RED CELL DISTRIBUTION WIDTH 15.1 % (11.6-14.8); WHITE BLOOD COUNT 3.9 K/UL (4.8-10.8)
[2018-08-04 06:41] LABS: INR 1.1 (0.9-1.1)
[2018-08-04 06:47] LABS: ANION GAP 8 mmol/L (5-15); BLOOD UREA NITROGEN 4 mg/dL (7-18); CALCIUM 9.1 MG/DL (8.5-10.1); CARBON DIOXIDE 29 MMOL/L (21-32); CHLORIDE 106 MMOL/L (98-107); CREATININE 0.7 MG/DL (0.55-1.30); POTASSIUM 3.4 MMOL/L (3.5-5.1); SODIUM 142 MMOL/L (136-145)
--- NOTE | 2018-08-04 06:50 | Pre-Procedure Note/Attestation ---
Pre-Procedure Note/Attestation Complete Prior to Procedure Planned Procedure: not applicable Procedure Narrative: egd/peg Indications for Procedure Pre-Operative Diagnosis: dysphagia Attestation I attest that I discussed the nature of the procedure; its benefits; risks and complications; and alternatives (and the risks and benefits of such alternatives ), prior to the procedure, with the patient (or the patient's legal pharmaceutical representative). I attest that, if there was a reasonable possibility of needing a blood transfusion, the patient (or the patient's legal pharmaceutical representative) was given the [facility] standardized written summary, pursuant to the Clive Mirella Blood Safety Act ([place] Health and Safety Code # 1645, as amended). I attest that I re-evaluated the patient just prior to the surgery and that there has been no change in the patient's H&P, except as documented below: Edwardo Argueta MD Aug 04, 2018 06:50
--- NOTE | 2018-08-04 06:58 | Endoscopy Procedure Note ---
Endoscopy Procedure Note General Indication for Procedure: dysphagia Procedures Performed: EGD, PEG Operative Findings/Diagnosis: same Specimen: none Pt Tolerated Procedure Well: Yes Estimated Blood Loss: none Anesthesia Anesthesiologist: ethel Anesthesia: MAC Inserted Devices Implant(s) used?: No GI Core Measures 50 yrs or older w/o bx or poly: Not Applicable 10yrs. F/U not recommended: Not Applicable Edwardo Argueta MD Aug 04, 2018 06:58
[2018-08-04] MEDS ORDERED: NS 500ML IVPB ONE (07:00)
[2018-08-04] MEDS ORDERED: fentaNYL 100 mcg/2 mL IV PRN (07:15)
[2018-08-04] MEDS ORDERED: Midazolam 2mg/2ml Inj IVP PRN (07:15)
[2018-08-04] MEDS ORDERED: DiphenhydrAMINE 50mg/ml Inj IVP PRN (07:15)
[2018-08-04] MEDS ORDERED: Atropine Inj 1mg/10ml Syr IV PRN (07:15)
--- NOTE | 2018-08-04 08:00 | Procedure Note ---
DATE OF PROCEDURE: 08/04/2018 SURGEON: Edwardo Argueta M.D. ANESTHESIOLOGIST: Dr. Dang. REFERRING PHYSICIAN: Yi Asencio M.D. PROCEDURE: Upper endoscopy with PEG placement. ANESTHESIA: Per Dr. Dang. INSTRUMENT: Olympus adult flexible upper endoscope. INDICATION: Dysphagia. The procedure, risks, benefits, and possible consequences, including hemorrhage, aspiration, perforation and infection, and alternative treatments, were explained to the patient/legal guardian by Dr. Edwardo Argueta and the patient/legal guardian understood and accepted these risks. DESCRIPTION OF PROCEDURE: After informed consent was obtained and the patient was adequately sedated, Olympus upper endoscope was advanced from the mouth into the second portion of the duodenum and retroflexion was performed in the stomach. The patient had diffuse atrophic gastritis. Under endoscopic guidance and under sterile condition, a 20-Irish pull type of G-tube was successfully placed in the epigastric area. The distance from the tip of the tube to the skin was about 2.5 cm in size. The patient tolerated the procedure very well without any complication. SUMMARY OF FINDINGS: Status post successful PEG placement. RECOMMENDATIONS: Abdominal binder. Elevate the head of the bed at all times. G-tube flush. G-tube care. Start tube feeding later today. I want to thank Dr. Yi Asencio for this kind referral. Edwardo Argueta M.D. DR: Surekha JOB#: [id number] CC: Yi Asencio M.D.; Fax#: [phone]
--- NOTE | 2018-08-04 09:13 | 48 Hour Post Anesthesia Eval ---
Post Anesthesia Evaluation Procedure: peg Date of Evaluation: Aug 04, 2018 Time of Evaluation: 07:31 Blood Pressure Systolic: 142 0: 75 Pulse Rate: 86 Respiratory Rate: 18 Temperature (Fahrenheit): 98.3 O2 Sat by Pulse Oximetry: 100 Airway: patent Nausea: No Vomiting: No Pain Intensity: 0 Hydration Status: adequate Cardiopulmonary Status: stable Mental Status/LOC: patient returned to baseline Post-Anesthesia Complications: none Follow-up care needed: N/A Jagruti Stover MD Aug 04, 2018 09:13
--- NOTE | 2018-08-04 09:13 | Anethesia Preoperative Eval ---
Anesthesia Pre-op PMH/ROS General Date of Evaluation: Aug 04, 2018 Time of Evaluation: 06:30 Anesthesiologist: dai ASA Score: ASA 4 Mallampati Score Class I : Soft palate, uvula, fauces, pillars visible Class II: Soft palate, uvula, fauces visible Class III: Soft palate, base of uvula visible Class IV: Only hard plate visible Mallampati Classification: Class II Surgeon: devin Diagnosis: dysphagia Surgical Procedure: peg Anesthesia History: none Social History: smoking - nonsmoker Family History: no anesthesia problems Allergies: Coded Allergies: No Known Allergies (Unverified , 07/26/18) Medications: see eMAR Patient NPO?: Yes Past Medical History Cardiovascular: Reports: HTN Gastrointestinal/Genitourinary: Reports: other - uti Neurologic/Psychiatric: Reports: CVA, other - metabolic encephalopathy Endocrine: Reports: DM Hematology/Immune: Reports: anemia, DVT Anesthesia Pre-op Phys. Exam Physician Exam Last Vital Signs Date Time Temp Pulse Resp B/P (MAP) Pulse Ox O2 Delivery O2 Flow Rate FiO2 08/04/18 07:37 98.0 81 15 149/73 98 Room Air 08/04/18 07:25 3 Constitutional: NAD Neurologic: CN 2-12 intact Cardiovascular: RRR Respiratory: CTA Gastrointestinal: S/NT/ND Airway Exam Mallampati Score: Class II MO: limited Neck: flexible TMD: 2fb ROM: limited Teeth: missing Anesthesia Pre-op A/P Labs Hematology Test 08/04/18 06:00 White Blood Count 3.9 K/UL (4.8-10.8) L Red Blood Count 3.25 M/UL (4.20-5.40) L Hemoglobin 10.1 G/DL (12.0-16.0) L Hematocrit 29.6 % (37.0-47.0) L Mean Corpuscular Volume 91 FL (80-99) Mean Corpuscular Hemoglobin 31.0 PG (27.0-31.0) Mean Corpuscular Hemoglobin Concent 34.1 G/DL (32.0-36.0) Red Cell Distribution Width 15.1 % (11.6-14.8) H Platelet Count 82 K/UL (150-450) L Mean Platelet Volume 8.1 FL (6.5-10.1) Neutrophils (%) (Auto) % (45.0-75.0) Lymphocytes (%) (Auto) % (20.0-45.0) Monocytes (%) (Auto) % (1.0-10.0) Eosinophils (%) (Auto) % (0.0-3.0) Basophils (%) (Auto) % (0.0-2.0) Neutrophils % (Manual) Pending Lymphocytes % (Manual) Pending Platelet Estimate Pending Platelet Morphology Pending Coagulation Test 08/04/18 06:00 Prothrombin Time 11.8 SEC (9.30-11.50) H Prothromb Time International Ratio 1.1 (0.9-1.1) Activated Partial Thromboplast Time 31 SEC (23-33) Chemistry Test 08/04/18 06:00 Sodium Level 142 MMOL/L (136-145) Potassium Level 3.4 MMOL/L (3.5-5.1) L Chloride Level 106 MMOL/L (98-107) Carbon Dioxide Level 29 MMOL/L (21-32) Anion Gap 8 mmol/L (5-15) Blood Urea Nitrogen 4 mg/dL (7-18) L Creatinine 0.7 MG/DL (0.55-1.30) Estimat Glomerular Filtration Rate mL/min (>60) Glucose Level 122 MG/DL (74-106) H Calcium Level 9.1 MG/DL (8.5-10.1) Risk Assessment & Plan Assessment: asa4 Plan: mac Status Change Before Surgery: No Pre-Antibiotics Drug: Jagruti Syed MD Aug 04, 2018 09:13
--- NOTE | 2018-08-04 09:13 | Immediate Post-Op Evaluation ---
Immediate Post-Op Evalulation Immediate Post-Op Evalulation Procedure: peg Date of Evaluation: Aug 04, 2018 Time of Evaluation: 07:29 IV Fluids: 150ml 0.9ns Blood Products: none Estimated Blood Loss: negligible Blood Pressure Systolic: 145 Blood Pressure Diastolic: 75 Pulse Rate: 83 Respiratory Rate: 18 O2 Sat by Pulse Oximetry: 100 Temperature (Fahrenheit): 98.3 Pain Score (1-10): 0 Nausea: No Vomiting: No Complications none Patient Status: awake, reacts, patent Hydration Status: adequate Drug: Jagruti Syed MD Aug 04, 2018 09:13
[2018-08-04] MEDS: Aspirin Baby 81mg NG SCH (09:48)
[2018-08-04] MEDS: cefTRIAXone 1 GM in D5W 55 ML IVPB SCH (09:49)
--- NOTE | 2018-08-04 12:02 | Infectious Diseases Prog Note ---
Assessment/Plan Assessment/Plan A; Sepsis/ SIRS treated Bacteremia, likelly contamination UTI with E.coli treated DVT of left leg, ? PE DM type 2 Anemia Thrombocytopenia Leukopenia Dysphagia s/p GT placement P; Observe off antibiotic Subjective ROS Limited/Unobtainable: Yes Gastrointestinal/Abdominal: Reports: other - had EGD & PEG placement today Allergies: Coded Allergies: No Known Allergies (Unverified , 07/26/18) Objective Vital Signs Last 24 Hour Vital Signs Date Time Temp Pulse Resp B/P (MAP) Pulse Ox O2 Delivery O2 Flow Rate FiO2 08/04/18 10:40 86 18 100 08/04/18 10:36 83 18 100 08/04/18 09:00 Room Air 08/04/18 07:37 98.0 81 15 149/73 98 Room Air 08/04/18 07:30 74 14 145/75 98 Room Air 08/04/18 07:25 72 15 139/80 100 Nasal Cannula 3 08/04/18 07:17 98.3 83 18 145/75 100 Nasal Cannula 3 08/04/18 04:00 96.8 99 18 146/78 (100) 98 08/04/18 00:00 98.1 84 18 152/68 (96) 98 08/03/18 21:00 Room Air 08/03/18 20:00 97.8 75 19 157/73 (101) 98 08/03/18 16:00 97.3 69 18 147/66 (93) 98 Height (Feet): 5 Height (Inches): 2.00 Weight (Pounds): 116 General Appearance: no acute distress HEENT: mucous membranes moist Respiratory/Chest: lungs clear Cardiovascular: normal rate Abdomen: soft, non tender, other - GT feeding Extremities: no edema Neurologic/Psychiatric: unresponsiveness Laboratory Tests Test 08/04/18 06:00 White Blood Count 3.9 K/UL (4.8-10.8) L Red Blood Count 3.25 M/UL (4.20-5.40) L Hemoglobin 10.1 G/DL (12.0-16.0) L Hematocrit 29.6 % (37.0-47.0) L Mean Corpuscular Volume 91 FL (80-99) Mean Corpuscular Hemoglobin 31.0 PG (27.0-31.0) Mean Corpuscular Hemoglobin Concent 34.1 G/DL (32.0-36.0) Red Cell Distribution Width 15.1 % (11.6-14.8) H Platelet Count 82 K/UL (150-450) L Mean Platelet Volume 8.1 FL (6.5-10.1) Neutrophils (%) (Auto) % (45.0-75.0) Lymphocytes (%) (Auto) % (20.0-45.0) Monocytes (%) (Auto) % (1.0-10.0) Eosinophils (%) (Auto) % (0.0-3.0) Basophils (%) (Auto) % (0.0-2.0) Differential Total Cells Counted 100 Neutrophils % (Manual) 91 % (45-75) H Lymphocytes % (Manual) 8 % (20-45) L Monocytes % (Manual) 1 % (1-10) Eosinophils % (Manual) 0 % (0-3) Basophils % (Manual) 0 % (0-2) Band Neutrophils 0 % (0-8) Platelet Estimate Decreased L Platelet Morphology Normal Anisocytosis 1+ Prothrombin Time 11.8 SEC (9.30-11.50) H Prothromb Time International Ratio 1.1 (0.9-1.1) Activated Partial Thromboplast Time 31 SEC (23-33) Sodium Level 142 MMOL/L (136-145) Potassium Level 3.4 MMOL/L (3.5-5.1) L Chloride Level 106 MMOL/L (98-107) Carbon Dioxide Level 29 MMOL/L (21-32) Anion Gap 8 mmol/L (5-15) Blood Urea Nitrogen 4 mg/dL (7-18) L Creatinine 0.7 MG/DL (0.55-1.30) Estimat Glomerular Filtration Rate mL/min (>60) Glucose Level 122 MG/DL (74-106) H Calcium Level 9.1 MG/DL (8.5-10.1) Current Medications Medications (Trade) Dose Ordered Sig/Laure Route PRN Reason Start Time Stop Time Status Last Admin Dose Admin Acetaminophen (Tylenol) 650 mg Q4H PRN ORAL Fever/Headache/Mild Pain 08/02/18 13:21 08/25/18 13:20 Al Hydroxide/Mg Hydroxide (Mylanta) 15 ml Q1H PRN ORAL gi upset 08/04/18 07:15 08/04/18 13:00 Aspirin (ASA) 81 mg DAILY NG 08/03/18 09:00 08/30/18 08:59 08/04/18 09:48 Atropine Sulfate (Atropine) 0.5 mg Q5M PRN IV HR less than 45 BPM 08/04/18 07:15 08/04/18 13:00 Ceftriaxone Sodium 1 gm/ Dextrose 55 ml @ 110 mls/hr DAILY IVPB 08/03/18 09:00 08/05/18 14:59 08/04/18 09:49 Dextrose (Dextrose 50%) 25 ml Q30M PRN IV Hypoglycemia 08/02/18 13:45 08/25/18 15:14 Dextrose (Dextrose 50%) 50 ml Q30M PRN IV Hypoglycemia 08/02/18 13:45 08/25/18 15:14 Dextrose/ Electrolytes 1,000 ml @ 75 mls/hr [id number] IV 08/03/18 12:00 09/02/18 11:59 08/04/18 01:27 Diphenhydramine HCl (Benadryl) 25 mg Q15M PRN IVP Itching 08/04/18 07:15 08/04/18 13:00 Enoxaparin Sodium (Lovenox) 70 mg Q24H SUBQ 08/03/18 10:00 08/31/18 09:59 Famotidine (Pepcid) 20 mg BID ORAL 08/02/18 18:00 08/25/18 17:59 08/04/18 09:48 Fentanyl Citrate (Sublimaze 100 mcg/2 mL) 25 mcg Q10M PRN IV Moderate Pain (Pain Scale 4-6) 08/04/18 07:15 08/04/18 13:00 Haloperidol Lactate (Haldol) 5 mg Q6H PRN IM Agitation 08/03/18 23:30 09/02/18 23:29 Hydralazine HCl (Apresoline) 5 mg Q30M PRN IV SBP>160 /DBP>90 08/04/18 07:15 08/04/18 13:00 Insulin Aspart (NovoLOG) BEFORE MEALS AND HS SUBQ 08/02/18 16:30 08/25/18 16:29 08/04/18 11:54 Lorazepam (Ativan 2mg/ml 1ml) 1 mg EVERY 4 HOURS PRN IM anxiety 08/03/18 23:30 08/10/18 23:29 08/03/18 23:55 Midazolam HCl (Versed 2mg/2ml vial) 1 mg Q15M PRN IVP For Anxiety 08/04/18 07:15 08/04/18 13:00 Ondansetron HCl (Zofran) 4 mg Q1H PRN IVP Nausea & Vomiting 08/04/18 07:15 08/04/18 13:00 Potassium Chloride (K-Dur) 40 meq DAILY NG 08/03/18 09:00 09/01/18 08:59 08/04/18 09:56 Quetiapine Fumarate (SEROquel) 12.5 mg Q4H PRN ORAL agitation 08/02/18 15:15 08/26/18 11:14 Quetiapine Fumarate (SEROquel) 25 mg Q12HR ORAL 08/02/18 21:00 08/26/18 10:39 08/04/18 09:47 Shimon Card MD Aug 04, 2018 12:02
--- NOTE | 2018-08-04 12:21 | Nephrology Progress Note ---
Assessment/Plan Problem List: (1) UTI (urinary tract infection) (2) Dehydration (3) Hypernatremia (4) Hypokalemia (5) Malnutrition Assessment failed swallow test has PEG now Dehydration- Hypernatremia DM OOC Anemia UTI Malnutrition Plan Has GT now K via GT IV iron mag and K supplement as needed Per consultants Dc planning Subjective ROS Limited/Unobtainable: No Constitutional: Reports: malaise, weakness Objective Objective Last 24 Hour Vital Signs Date Time Temp Pulse Resp B/P (MAP) Pulse Ox O2 Delivery O2 Flow Rate FiO2 08/04/18 10:40 86 18 100 08/04/18 10:36 83 18 100 08/04/18 09:00 Room Air 08/04/18 07:37 98.0 81 15 149/73 98 Room Air 08/04/18 07:30 74 14 145/75 98 Room Air 08/04/18 07:25 72 15 139/80 100 Nasal Cannula 3 08/04/18 07:17 98.3 83 18 145/75 100 Nasal Cannula 3 08/04/18 04:00 96.8 99 18 146/78 (100) 98 08/04/18 00:00 98.1 84 18 152/68 (96) 98 08/03/18 21:00 Room Air 08/03/18 20:00 97.8 75 19 157/73 (101) 98 08/03/18 16:00 97.3 69 18 147/66 (93) 98 Intake and Output 08/03/18 08/04/18 19:00 07:00 Intake Total 880 ml 825 ml Balance 880 ml 825 ml IV Total 880 ml 825 ml # Voids 3 4 # Bowel Movements 1 Laboratory Tests 08/04/18 06:00: White Blood Count 3.9L, Red Blood Count 3.25L, Hemoglobin 10.1L, Hematocrit 29.6L, Mean Corpuscular Volume 91, Mean Corpuscular Hemoglobin 31.0, Mean Corpuscular Hemoglobin Concent 34.1, Red Cell Distribution Width 15.1H, Platelet Count 82L, Mean Platelet Volume 8.1, Neutrophils (%) (Auto) , Lymphocytes (%) (Auto) , Monocytes (%) (Auto) , Eosinophils (%) (Auto) , Basophils (%) (Auto) , Differential Total Cells Counted 100, Neutrophils % ( Manual) 91H, Lymphocytes % (Manual) 8L, Monocytes % (Manual) 1, Eosinophils % ( Manual) 0, Basophils % (Manual) 0, Band Neutrophils 0, Platelet Estimate DecreasedL, Platelet Morphology Normal, Anisocytosis 1+, Prothrombin Time 11.8H , Prothromb Time International Ratio 1.1, Activated Partial Thromboplast Time 31 , Sodium Level 142, Potassium Level 3.4L, Chloride Level 106, Carbon Dioxide Level 29, Anion Gap 8, Blood Urea Nitrogen 4L, Creatinine 0.7, Estimat Glomerular Filtration Rate , Glucose Level 122H, Calcium Level 9.1 Height (Feet): 5 Height (Inches): 2.00 Weight (Pounds): 116 General Appearance: no apparent distress Cardiovascular: normal rate Respiratory/Chest: decreased breath sounds Abdomen: soft, other - has GT now Objective no change Parvez Bergman MD Aug 04, 2018 12:21
[2018-08-04] MEDS: Enoxaparin Sodium 300mg/3ml vial SUBQ SCH (12:48)
[2018-08-04 12:59] LABS: ALANINE AMINOTRANSFERASE 29 U/L (12-78); ALKALINE PHOSPHATASE 87 U/L (46-116); ASPARTATE AMINO TRANSFERASE 33 U/L (15-37); BILIRUBIN,DIRECT 0.1 MG/DL (0.0-0.3); BILIRUBIN,TOTAL 0.6 MG/DL (0.2-1.0); PHOSPHORUS 2.7 MG/DL (2.5-4.9)
--- NOTE | 2018-08-04 13:00 | General Progress Note ---
Assessment/Plan Status: stable Assessment/Plan # DVT of the left leg -- superficial femoral vein which is a deep vein, new onset, has not had these symptoms before. --> discussed with renal, have stopped heparin gtt --> continue Lovenox as bridge and Coumadin --> INR goal 2-3 --> if plts drop any further, consider a IVC filter placement --> monitor platelet count closely --> appreciate Dr. Parekh and Mariam recs --> Plt count at 82k # Pancytopenia, this is her first time here at [facility], do not have baseline, appears new baseline 50-70k, several causes possible including viral, medication or intrabone marrow related. --> Cont to monitor plt count for improvement --> US abd: Mild left hydronephrosis. Possible left renal calyceal calculi. Negative for gallstones or dilated ducts Debris noted within the bladder --> Hep panel and HIV are both negative --> given extremely poor condition do not recommend a bone marrow biopsy, have discussed with family 08/01 with --> Current plt count 64k # Anemia of chronic disease. Multifactorial. Since admission Hgb has consistently remained between 8-9. --> Cont to monitor for stability --> Hgb goal above 7. Transfuse prn. --> Currently stable. --> IV iron completed # Dehydration. IVF has been administered # DM OOC --> A1C goal less than 7 --> Cont on insulin # UTI. --> ID is following. Appreciate recs. --> Pt on IV abx. --> Cultures - gram negative bacillus # PEG placement 08/04. Greatly appreciate consultation! Subjective Date patient seen: Aug 04, 2018 ROS Limited/Unobtainable: Yes Hematologic/Lymphatic: Reports: anemia Allergies: Coded Allergies: No Known Allergies (Unverified , 07/26/18) Subjective Plt count improving. S/P PEG placement. VS stable. Objective Last 24 Hour Vital Signs Date Time Temp Pulse Resp B/P (MAP) Pulse Ox O2 Delivery O2 Flow Rate FiO2 08/04/18 10:40 86 18 100 08/04/18 10:36 83 18 100 08/04/18 09:00 Room Air 08/04/18 07:37 98.0 81 15 149/73 98 Room Air 08/04/18 07:30 74 14 145/75 98 Room Air 08/04/18 07:25 72 15 139/80 100 Nasal Cannula 3 08/04/18 07:17 98.3 83 18 145/75 100 Nasal Cannula 3 08/04/18 04:00 96.8 99 18 146/78 (100) 98 08/04/18 00:00 98.1 84 18 152/68 (96) 98 08/03/18 21:00 Room Air 08/03/18 20:00 97.8 75 19 157/73 (101) 98 08/03/18 16:00 97.3 69 18 147/66 (93) 98 Intake and Output 08/03/18 08/04/18 19:00 07:00 Intake Total 880 ml 825 ml Balance 880 ml 825 ml IV Total 880 ml 825 ml # Voids 3 4 # Bowel Movements 1 Laboratory Tests 08/04/18 06:00: White Blood Count 3.9L, Red Blood Count 3.25L, Hemoglobin 10.1L, Hematocrit 29.6L, Mean Corpuscular Volume 91, Mean Corpuscular Hemoglobin 31.0, Mean Corpuscular Hemoglobin Concent 34.1, Red Cell Distribution Width 15.1H, Platelet Count 82L, Mean Platelet Volume 8.1, Neutrophils (%) (Auto) , Lymphocytes (%) (Auto) , Monocytes (%) (Auto) , Eosinophils (%) (Auto) , Basophils (%) (Auto) , Differential Total Cells Counted 100, Neutrophils % ( Manual) 91H, Lymphocytes % (Manual) 8L, Monocytes % (Manual) 1, Eosinophils % ( Manual) 0, Basophils % (Manual) 0, Band Neutrophils 0, Platelet Estimate DecreasedL, Platelet Morphology Normal, Anisocytosis 1+, Prothrombin Time 11.8H , Prothromb Time International Ratio 1.1, Activated Partial Thromboplast Time 31 , Sodium Level 142, Potassium Level 3.4L, Chloride Level 106, Carbon Dioxide Level 29, Anion Gap 8, Blood Urea Nitrogen 4L, Creatinine 0.7, Estimat Glomerular Filtration Rate , Glucose Level 122H, Calcium Level 9.1, Phosphorus Level [Pending], Magnesium Level [Pending], Total Bilirubin [Pending], Direct Bilirubin [Pending], Aspartate Amino Transf (AST/SGOT) [Pending], Alanine Aminotransferase (ALT/SGPT) [Pending], Alkaline Phosphatase [Pending], Total Protein [Pending], Albumin [Pending] Height (Feet): 5 Height (Inches): 2.00 Weight (Pounds): 116 General Appearance: no apparent distress EENT: PERRL/EOMI Neck: normal alignment Cardiovascular: normal peripheral pulses Respiratory/Chest: no respiratory distress Abdomen: soft Dewayne Gayle MD Aug 04, 2018 13:00
[2018-08-04 13:06] LABS: ALBUMIN 2.6 G/DL (3.4-5.0)
--- NOTE | 2018-08-04 14:40 | Pulmonology Progress Note ---
Assessment/Plan Assessment/Plan ASSESSMENT: The patient is a 78-year-old female, long term resident with a presumed history of dementia, hypertension, and hyperlipidemia, presenting with a systemic inflammatory response syndrome, gram-negative bacillus UTI, and acute left superficial vein DVT with likely pulmonary embolism as well. PROBLEM LIST: 1. Extensive left superficial vein DVT (this is a deep vein). 2. Likely pulmonary embolism as well. 3. Hypoxemia. 4. Gram-negative bacillus UTI. 5. GPC bacteremia 6. Hypernatremia and hypokalemia. 7. Protein-calorie malnutrition 8. Likely underlying dementia versus encephalopathy. 9. Hypertension. 10. Hyperlipidemia. 11. Thrombocytopenia. 12. Normocytic anemia. 13. S/P PEG TREATMENT PLAN: -A/C per heme -Consideration for IVCF if unable to tolerated A/C -Abx per ID -Monitor volumes & renal function, IVF per renal -Aspiration precautions -Start TF's when ok with GI -Full Code, continue to discuss goals of care. Subjective Allergies: Coded Allergies: No Known Allergies (Unverified , 07/26/18) Subjective AFVSS, leta AC, no bleeding No distress, no cough, no SOB, no F/C S/P PEG Objective Last 24 Hour Vital Signs Date Time Temp Pulse Resp B/P (MAP) Pulse Ox O2 Delivery O2 Flow Rate FiO2 08/04/18 12:00 98.2 74 19 136/63 (87) 99 08/04/18 10:40 86 18 100 08/04/18 10:36 83 18 100 08/04/18 09:00 Room Air 08/04/18 07:37 98.0 81 15 149/73 98 Room Air 08/04/18 07:30 74 14 145/75 98 Room Air 08/04/18 07:25 72 15 139/80 100 Nasal Cannula 3 08/04/18 07:17 98.3 83 18 145/75 100 Nasal Cannula 3 08/04/18 04:00 96.8 99 18 146/78 (100) 98 08/04/18 00:00 98.1 84 18 152/68 (96) 98 08/03/18 21:00 Room Air 08/03/18 20:00 97.8 75 19 157/73 (101) 98 08/03/18 16:00 97.3 69 18 147/66 (93) 98 Intake and Output 08/03/18 08/04/18 19:00 07:00 Intake Total 880 ml 825 ml Balance 880 ml 825 ml IV Total 880 ml 825 ml # Voids 3 4 # Bowel Movements 1 General Appearance: no acute distress HEENT: normocephalic, atraumatic, anicteric Respiratory/Chest: chest wall non-tender, lungs clear, normal breath sounds, no respiratory distress, no accessory muscle use Cardiovascular: normal peripheral pulses, normal rate, regular rhythm Abdomen: normal bowel sounds, soft, non tender, no organomegaly, non distended , no mass, other - PEG Extremities: no cyanosis, no clubbing, no edema Laboratory Tests 08/04/18 06:00: White Blood Count 3.9L, Red Blood Count 3.25L, Hemoglobin 10.1L, Hematocrit 29.6L, Mean Corpuscular Volume 91, Mean Corpuscular Hemoglobin 31.0, Mean Corpuscular Hemoglobin Concent 34.1, Red Cell Distribution Width 15.1H, Platelet Count 82L, Mean Platelet Volume 8.1, Neutrophils (%) (Auto) , Lymphocytes (%) (Auto) , Monocytes (%) (Auto) , Eosinophils (%) (Auto) , Basophils (%) (Auto) , Differential Total Cells Counted 100, Neutrophils % ( Manual) 91H, Lymphocytes % (Manual) 8L, Monocytes % (Manual) 1, Eosinophils % ( Manual) 0, Basophils % (Manual) 0, Band Neutrophils 0, Platelet Estimate DecreasedL, Platelet Morphology Normal, Anisocytosis 1+, Prothrombin Time 11.8H , Prothromb Time International Ratio 1.1, Activated Partial Thromboplast Time 31 , Sodium Level 142, Potassium Level 3.4L, Chloride Level 106, Carbon Dioxide Level 29, Anion Gap 8, Blood Urea Nitrogen 4L, Creatinine 0.7, Estimat Glomerular Filtration Rate , Glucose Level 122H, Calcium Level 9.1, Phosphorus Level 2.7, Magnesium Level 1.8, Total Bilirubin 0.6, Direct Bilirubin 0.1, Aspartate Amino Transf (AST/SGOT) 33, Alanine Aminotransferase (ALT/SGPT) 29, Alkaline Phosphatase 87, Total Protein 7.1, Albumin 2.6L Current Medications Medications (Trade) Dose Ordered Sig/Laure Route PRN Reason Start Time Stop Time Status Last Admin Dose Admin Acetaminophen (Tylenol) 650 mg Q4H PRN ORAL Fever/Headache/Mild Pain 08/02/18 13:21 08/25/18 13:20 Aspirin (ASA) 81 mg DAILY NG 08/03/18 09:00 08/30/18 08:59 08/04/18 09:48 Ceftriaxone Sodium 1 gm/ Dextrose 55 ml @ 110 mls/hr DAILY IVPB 08/03/18 09:00 08/05/18 14:59 08/04/18 09:49 Dextrose (Dextrose 50%) 25 ml Q30M PRN IV Hypoglycemia 08/02/18 13:45 08/25/18 15:14 Dextrose (Dextrose 50%) 50 ml Q30M PRN IV Hypoglycemia 08/02/18 13:45 08/25/18 15:14 Dextrose/ Electrolytes 1,000 ml @ 75 mls/hr [id number] IV 08/03/18 12:00 09/02/18 11:59 08/04/18 01:27 Enoxaparin Sodium (Lovenox) 70 mg Q24H SUBQ 08/03/18 10:00 08/31/18 09:59 08/04/18 12:48 Famotidine (Pepcid) 20 mg BID ORAL 08/02/18 18:00 08/25/18 17:59 08/04/18 09:48 Haloperidol Lactate (Haldol) 5 mg Q6H PRN IM Agitation 08/03/18 23:30 09/02/18 23:29 Insulin Aspart (NovoLOG) BEFORE MEALS AND HS SUBQ 08/02/18 16:30 08/25/18 16:29 08/04/18 11:54 Lorazepam (Ativan 2mg/ml 1ml) 1 mg EVERY 4 HOURS PRN IM anxiety 08/03/18 23:30 08/10/18 23:29 08/03/18 23:55 Potassium Chloride (K-Dur) 40 meq DAILY GT 08/05/18 09:00 09/04/18 08:59 Quetiapine Fumarate (SEROquel) 12.5 mg Q4H PRN ORAL agitation 08/02/18 15:15 08/26/18 11:14 Quetiapine Fumarate (SEROquel) 25 mg Q12HR ORAL 08/02/18 21:00 08/26/18 10:39 08/04/18 09:47 Foreign Parekh MD Aug 04, 2018 14:40
[2018-08-04] MEDS ORDERED: Warfarin Sodium 3mg GT ONE (17:00)
--- NOTE | 2018-08-04 20:50 | General Progress Note ---
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 2. Dementia. PLAN: 1. We will continue the Seroquel. 2. Provide reality orientation and supportive therapy. 3. Bilateral soft restraint. 4. the pt s son should sign the consent Subjective Neurologic/Psychiatric: Reports: anxiety Allergies: Coded Allergies: No Known Allergies (Unverified , 07/26/18) Subjective the pt is confused agitated at times Objective Last 24 Hour Vital Signs Date Time Temp Pulse Resp B/P (MAP) Pulse Ox O2 Delivery O2 Flow Rate FiO2 08/04/18 20:00 99.5 99 19 157/84 (108) 97 08/04/18 16:00 98.2 89 17 140/67 (91) 97 08/04/18 12:00 98.2 74 19 136/63 (87) 99 08/04/18 10:40 86 18 100 08/04/18 10:36 83 18 100 08/04/18 09:00 Room Air 08/04/18 07:37 98.0 81 15 149/73 98 Room Air 08/04/18 07:30 74 14 145/75 98 Room Air 08/04/18 07:25 72 15 139/80 100 Nasal Cannula 3 08/04/18 07:17 98.3 83 18 145/75 100 Nasal Cannula 3 08/04/18 04:00 96.8 99 18 146/78 (100) 98 08/04/18 00:00 98.1 84 18 152/68 (96) 98 08/03/18 21:00 Room Air Intake and Output 08/03/18 08/04/18 19:00 07:00 Intake Total 880 ml 825 ml Balance 880 ml 825 ml IV Total 880 ml 825 ml # Voids 3 4 # Bowel Movements 1 Laboratory Tests 08/04/18 06:00: White Blood Count 3.9L, Red Blood Count 3.25L, Hemoglobin 10.1L, Hematocrit 29.6L, Mean Corpuscular Volume 91, Mean Corpuscular Hemoglobin 31.0, Mean Corpuscular Hemoglobin Concent 34.1, Red Cell Distribution Width 15.1H, Platelet Count 82L, Mean Platelet Volume 8.1, Neutrophils (%) (Auto) , Lymphocytes (%) (Auto) , Monocytes (%) (Auto) , Eosinophils (%) (Auto) , Basophils (%) (Auto) , Differential Total Cells Counted 100, Neutrophils % ( Manual) 91H, Lymphocytes % (Manual) 8L, Monocytes % (Manual) 1, Eosinophils % ( Manual) 0, Basophils % (Manual) 0, Band Neutrophils 0, Platelet Estimate DecreasedL, Platelet Morphology Normal, Anisocytosis 1+, Prothrombin Time 11.8H , Prothromb Time International Ratio 1.1, Activated Partial Thromboplast Time 31 , Sodium Level 142, Potassium Level 3.4L, Chloride Level 106, Carbon Dioxide Level 29, Anion Gap 8, Blood Urea Nitrogen 4L, Creatinine 0.7, Estimat Glomerular Filtration Rate , Glucose Level 122H, Calcium Level 9.1, Phosphorus Level 2.7, Magnesium Level 1.8, Total Bilirubin 0.6, Direct Bilirubin 0.1, Aspartate Amino Transf (AST/SGOT) 33, Alanine Aminotransferase (ALT/SGPT) 29, Alkaline Phosphatase 87, Total Protein 7.1, Albumin 2.6L Height (Feet): 5 Height (Inches): 2.00 Weight (Pounds): 116 General Appearance: no apparent distress, alert, confused, agitated Kimmy Chavez MD Aug 04, 2018 20:50
--- NOTE | 2018-08-04 21:12 | General Progress Note ---
Assessment/Plan Problem List: (1) Dementia with behavioral disturbance ICD Codes: F03.91 - Unspecified dementia with behavioral disturbance SNOMED: 4912469878815 (2) Malnutrition ICD Codes: E46 - Unspecified protein-calorie malnutrition SNOMED: 57009285 (3) Sepsis ICD Codes: A41.9 - Sepsis, unspecified organism SNOMED: 84724574 (4) Dehydration ICD Codes: E86.0 - Dehydration SNOMED: 81246735 (5) UTI (urinary tract infection) ICD Codes: N39.0 - Urinary tract infection, site not specified SNOMED: 15367138 Status: progressing Assessment/Plan uti is improving reviewed chart and labs malnutrition afebrile dementia uti hydronephrosis s/p peg dc planning Subjective ROS Limited/Unobtainable: Yes Allergies: Coded Allergies: No Known Allergies (Unverified , 07/26/18) Objective Last 24 Hour Vital Signs Date Time Temp Pulse Resp B/P (MAP) Pulse Ox O2 Delivery O2 Flow Rate FiO2 08/04/18 20:00 99.5 99 19 151/84 (106) 97 08/04/18 16:00 98.2 89 17 140/67 (91) 97 08/04/18 12:00 98.2 74 19 136/63 (87) 99 08/04/18 10:40 86 18 100 08/04/18 10:36 83 18 100 08/04/18 09:00 Room Air 08/04/18 07:37 98.0 81 15 149/73 98 Room Air 08/04/18 07:30 74 14 145/75 98 Room Air 08/04/18 07:25 72 15 139/80 100 Nasal Cannula 3 08/04/18 07:17 98.3 83 18 145/75 100 Nasal Cannula 3 08/04/18 04:00 96.8 99 18 146/78 (100) 98 08/04/18 00:00 98.1 84 18 152/68 (96) 98 Intake and Output 08/03/18 08/04/18 19:00 07:00 Intake Total 880 ml 825 ml Balance 880 ml 825 ml IV Total 880 ml 825 ml # Voids 3 4 # Bowel Movements 1 Laboratory Tests 08/04/18 06:00: White Blood Count 3.9L, Red Blood Count 3.25L, Hemoglobin 10.1L, Hematocrit 29.6L, Mean Corpuscular Volume 91, Mean Corpuscular Hemoglobin 31.0, Mean Corpuscular Hemoglobin Concent 34.1, Red Cell Distribution Width 15.1H, Platelet Count 82L, Mean Platelet Volume 8.1, Neutrophils (%) (Auto) , Lymphocytes (%) (Auto) , Monocytes (%) (Auto) , Eosinophils (%) (Auto) , Basophils (%) (Auto) , Differential Total Cells Counted 100, Neutrophils % ( Manual) 91H, Lymphocytes % (Manual) 8L, Monocytes % (Manual) 1, Eosinophils % ( Manual) 0, Basophils % (Manual) 0, Band Neutrophils 0, Platelet Estimate DecreasedL, Platelet Morphology Normal, Anisocytosis 1+, Prothrombin Time 11.8H , Prothromb Time International Ratio 1.1, Activated Partial Thromboplast Time 31 , Sodium Level 142, Potassium Level 3.4L, Chloride Level 106, Carbon Dioxide Level 29, Anion Gap 8, Blood Urea Nitrogen 4L, Creatinine 0.7, Estimat Glomerular Filtration Rate , Glucose Level 122H, Calcium Level 9.1, Phosphorus Level 2.7, Magnesium Level 1.8, Total Bilirubin 0.6, Direct Bilirubin 0.1, Aspartate Amino Transf (AST/SGOT) 33, Alanine Aminotransferase (ALT/SGPT) 29, Alkaline Phosphatase 87, Total Protein 7.1, Albumin 2.6L Height (Feet): 5 Height (Inches): 2.00 Weight (Pounds): 116 General Appearance: confused Cardiovascular: normal rate Respiratory/Chest: lungs clear Abdomen: soft Yi Asencio MD Aug 04, 2018 21:12
[2018-08-05] VITALS: BP 133/69
[2018-08-05] MEDS: D5 1/2NS w/KCl 20mEq 1,000 ML IV SCH ×2 (03:33→17:20)
[2018-08-05 04:00] VITALS: BP 97/58
[2018-08-05] MEDS: NovoLOG Insulin Flexpen SUBQ SCH ×4 (06:23→21:39)
[2018-08-05 08:00] VITALS: BP 124/65
[2018-08-05] MEDS: Aspirin Baby 81mg NG SCH (08:59)
[2018-08-05] MEDS: cefTRIAXone 1 GM in D5W 55 ML IVPB SCH (09:00)
[2018-08-05 09:28] LABS: MEAN CORPUSCULAR VOLUME 92 FL (80-99); PLATELET COUNT 71 K/UL (150-450); RED BLOOD COUNT 2.94 M/UL (4.20-5.40); RED CELL DISTRIBUTION WIDTH 15.9 % (11.6-14.8); WHITE BLOOD COUNT 3.1 K/UL (4.8-10.8)
[2018-08-05 09:52] LABS: ANION GAP 5 mmol/L (5-15); BLOOD UREA NITROGEN 7 mg/dL (7-18); CALCIUM 8.8 MG/DL (8.5-10.1); CARBON DIOXIDE 28 MMOL/L (21-32); CHLORIDE 106 MMOL/L (98-107); CREATININE 0.7 MG/DL (0.55-1.30); POTASSIUM 3.6 MMOL/L (3.5-5.1); SODIUM 139 MMOL/L (136-145)
[2018-08-05 09:54] LABS: INR 1.1 (0.9-1.1)
--- NOTE | 2018-08-05 10:45 | General Progress Note ---
Assessment/Plan Status: stable Assessment/Plan # DVT of the left leg -- superficial femoral vein which is a deep vein, new onset, has not had these symptoms before. --> discussed with renal, have stopped heparin gtt --> continue Lovenox as bridge and Coumadin --> INR goal 2-3 --> if plts drop any further, consider a IVC filter placement --> monitor platelet count closely --> appreciate Dr. Parekh and Mariam recs --> Plt count at 82k # Pancytopenia, this is her first time here at [facility], do not have baseline, appears new baseline 50-70k, several causes possible including viral, medication or intrabone marrow related. --> Cont to monitor plt count for improvement --> US abd: Mild left hydronephrosis. Possible left renal calyceal calculi. Negative for gallstones or dilated ducts Debris noted within the bladder --> Hep panel and HIV are both negative --> given extremely poor condition do not recommend a bone marrow biopsy, have discussed with family 08/01 with --> Current plt count 64k # Anemia of chronic disease. Multifactorial. Since admission Hgb has consistently remained between 8-9. --> Cont to monitor for stability --> Hgb goal above 7. Transfuse prn. --> Currently stable. --> IV iron completed # Dehydration. IVF has been administered # DM OOC --> A1C goal less than 7 --> Cont on insulin # UTI. --> ID is following. Appreciate recs. --> Pt on IV abx. --> Cultures - gram negative bacillus # PEG placement 08/04. Greatly appreciate consultation! Subjective Date patient seen: Aug 05, 2018 ROS Limited/Unobtainable: Yes Hematologic/Lymphatic: Reports: anemia Allergies: Coded Allergies: No Known Allergies (Unverified , 07/26/18) Subjective No acute events. DC planning. Objective Last 24 Hour Vital Signs Date Time Temp Pulse Resp B/P (MAP) Pulse Ox O2 Delivery O2 Flow Rate FiO2 08/05/18 09:10 Room Air 08/05/18 08:00 96.8 92 21 124/65 (84) 99 08/05/18 04:00 99.2 90 20 97/58 (71) 98 08/05/18 00:00 98.4 92 20 133/69 (90) 99 08/04/18 21:15 Room Air 08/04/18 20:00 99.5 99 19 151/84 (106) 97 08/04/18 16:00 98.2 89 17 140/67 (91) 97 08/04/18 12:00 98.2 74 19 136/63 (87) 99 Intake and Output 08/04/18 08/05/18 18:59 06:59 Intake Total 990 ml 1695 ml Output Total 0 ml Balance 990 ml 1695 ml Free Water 50 ml 360 ml IV Total 830 ml 900 ml Tube Feeding 110 ml 435 ml Estimated Blood Loss 0 ml # Voids 3 3 Laboratory Tests 08/05/18 08:50: White Blood Count 3.1L, Red Blood Count 2.94L, Hemoglobin 9.0L, Hematocrit 27.0L , Mean Corpuscular Volume 92, Mean Corpuscular Hemoglobin 30.7, Mean Corpuscular Hemoglobin Concent 33.5, Red Cell Distribution Width 15.9H, Platelet Count 71L, Mean Platelet Volume 7.8, Neutrophils (%) (Auto) , Lymphocytes (%) (Auto) , Monocytes (%) (Auto) , Eosinophils (%) (Auto) , Basophils (%) (Auto) , Differential Total Cells Counted 100, Neutrophils % ( Manual) 87H, Lymphocytes % (Manual) 9L, Monocytes % (Manual) 3, Eosinophils % ( Manual) 1, Basophils % (Manual) 0, Band Neutrophils 0, Platelet Estimate DecreasedL, Platelet Morphology Normal, Prothrombin Time 11.7H, Prothromb Time International Ratio 1.1, Sodium Level 139, Potassium Level 3.6, Chloride Level 106, Carbon Dioxide Level 28, Anion Gap 5, Blood Urea Nitrogen 7, Creatinine 0.7 , Estimat Glomerular Filtration Rate , Glucose Level 80, Calcium Level 8.8 Height (Feet): 5 Height (Inches): 2.00 Weight (Pounds): 116 General Appearance: no apparent distress EENT: PERRL/EOMI Neck: normal alignment Cardiovascular: normal peripheral pulses Respiratory/Chest: no respiratory distress Abdomen: soft Dewayne Gayle MD Aug 05, 2018 10:45
[2018-08-05] MEDS: Enoxaparin Sodium 300mg/3ml vial SUBQ SCH (10:46)
--- NOTE | 2018-08-05 10:46 | Nephrology Progress Note ---
Assessment/Plan Problem List: (1) UTI (urinary tract infection) (2) Dehydration (3) Hypernatremia (4) Hypokalemia (5) Malnutrition Assessment failed swallow test has PEG now Dehydration- Hypernatremia DM OOC Anemia UTI Malnutrition Plan Has GT now K via GT IV iron mag and K supplement as needed Per consultants Dc planning Subjective ROS Limited/Unobtainable: No Constitutional: Reports: malaise, weakness Objective Objective Last 24 Hour Vital Signs Date Time Temp Pulse Resp B/P (MAP) Pulse Ox O2 Delivery O2 Flow Rate FiO2 08/05/18 09:10 Room Air 08/05/18 08:00 96.8 92 21 124/65 (84) 99 08/05/18 04:00 99.2 90 20 97/58 (71) 98 08/05/18 00:00 98.4 92 20 133/69 (90) 99 08/04/18 21:15 Room Air 08/04/18 20:00 99.5 99 19 151/84 (106) 97 08/04/18 16:00 98.2 89 17 140/67 (91) 97 08/04/18 12:00 98.2 74 19 136/63 (87) 99 Intake and Output 08/04/18 08/05/18 18:59 06:59 Intake Total 990 ml 1695 ml Output Total 0 ml Balance 990 ml 1695 ml Free Water 50 ml 360 ml IV Total 830 ml 900 ml Tube Feeding 110 ml 435 ml Estimated Blood Loss 0 ml # Voids 3 3 Laboratory Tests 08/05/18 08:50: White Blood Count 3.1L, Red Blood Count 2.94L, Hemoglobin 9.0L, Hematocrit 27.0L , Mean Corpuscular Volume 92, Mean Corpuscular Hemoglobin 30.7, Mean Corpuscular Hemoglobin Concent 33.5, Red Cell Distribution Width 15.9H, Platelet Count 71L, Mean Platelet Volume 7.8, Neutrophils (%) (Auto) , Lymphocytes (%) (Auto) , Monocytes (%) (Auto) , Eosinophils (%) (Auto) , Basophils (%) (Auto) , Differential Total Cells Counted 100, Neutrophils % ( Manual) 87H, Lymphocytes % (Manual) 9L, Monocytes % (Manual) 3, Eosinophils % ( Manual) 1, Basophils % (Manual) 0, Band Neutrophils 0, Platelet Estimate DecreasedL, Platelet Morphology Normal, Prothrombin Time 11.7H, Prothromb Time International Ratio 1.1, Sodium Level 139, Potassium Level 3.6, Chloride Level 106, Carbon Dioxide Level 28, Anion Gap 5, Blood Urea Nitrogen 7, Creatinine 0.7 , Estimat Glomerular Filtration Rate , Glucose Level 80, Calcium Level 8.8 Height (Feet): 5 Height (Inches): 2.00 Weight (Pounds): 116 General Appearance: no apparent distress Respiratory/Chest: decreased breath sounds Abdomen: soft, other - PEG Objective no change Parvez Bergman MD Aug 05, 2018 10:46
--- NOTE | 2018-08-05 11:33 | GI Progress Note ---
Assessment/Plan Problems: (1) UTI (urinary tract infection) ICD Codes: N39.0 - Urinary tract infection, site not specified SNOMED: 65508423 (2) Sepsis ICD Codes: A41.9 - Sepsis, unspecified organism SNOMED: 63483564 (3) Dehydration ICD Codes: E86.0 - Dehydration SNOMED: 74970584 (4) Malnutrition ICD Codes: E46 - Unspecified protein-calorie malnutrition SNOMED: 80585644 (5) Dementia with behavioral disturbance ICD Codes: F03.91 - Unspecified dementia with behavioral disturbance SNOMED: 8096871545965 Status: stable Status Narrative Discussed with Dr. Argueta. Assessment/Plan abdominal U/S reviewed >> normal liver echogenicity s/p PEG GTFs per RD, tolerating ppi abx zofran prn fu labs dc planning The patient was seen and examined at bedside and all new and available data was reviewed in the patients chart. I agree with the above findings, impression and plan. (Patient seen earlier today. Signature stamp does not reflect patient encounter time.). - Edwardo Argueta MD Subjective Subjective limited Objective Last 24 Hour Vital Signs Date Time Temp Pulse Resp B/P (MAP) Pulse Ox O2 Delivery O2 Flow Rate FiO2 08/05/18 09:10 Room Air 08/05/18 08:00 96.8 92 21 124/65 (84) 99 08/05/18 04:00 99.2 90 20 97/58 (71) 98 08/05/18 00:00 98.4 92 20 133/69 (90) 99 08/04/18 21:15 Room Air 08/04/18 20:00 99.5 99 19 151/84 (106) 97 08/04/18 16:00 98.2 89 17 140/67 (91) 97 08/04/18 12:00 98.2 74 19 136/63 (87) 99 Intake and Output 08/04/18 08/05/18 18:59 06:59 Intake Total 990 ml 1695 ml Output Total 0 ml Balance 990 ml 1695 ml Free Water 50 ml 360 ml IV Total 830 ml 900 ml Tube Feeding 110 ml 435 ml Estimated Blood Loss 0 ml # Voids 3 3 Laboratory Tests Test 08/05/18 08:50 White Blood Count 3.1 K/UL (4.8-10.8) L Red Blood Count 2.94 M/UL (4.20-5.40) L Hemoglobin 9.0 G/DL (12.0-16.0) L Hematocrit 27.0 % (37.0-47.0) L Mean Corpuscular Volume 92 FL (80-99) Mean Corpuscular Hemoglobin 30.7 PG (27.0-31.0) Mean Corpuscular Hemoglobin Concent 33.5 G/DL (32.0-36.0) Red Cell Distribution Width 15.9 % (11.6-14.8) H Platelet Count 71 K/UL (150-450) L Mean Platelet Volume 7.8 FL (6.5-10.1) Neutrophils (%) (Auto) % (45.0-75.0) Lymphocytes (%) (Auto) % (20.0-45.0) Monocytes (%) (Auto) % (1.0-10.0) Eosinophils (%) (Auto) % (0.0-3.0) Basophils (%) (Auto) % (0.0-2.0) Differential Total Cells Counted 100 Neutrophils % (Manual) 87 % (45-75) H Lymphocytes % (Manual) 9 % (20-45) L Monocytes % (Manual) 3 % (1-10) Eosinophils % (Manual) 1 % (0-3) Basophils % (Manual) 0 % (0-2) Band Neutrophils 0 % (0-8) Platelet Estimate Decreased L Platelet Morphology Normal Prothrombin Time 11.7 SEC (9.30-11.50) H Prothromb Time International Ratio 1.1 (0.9-1.1) Sodium Level 139 MMOL/L (136-145) Potassium Level 3.6 MMOL/L (3.5-5.1) Chloride Level 106 MMOL/L (98-107) Carbon Dioxide Level 28 MMOL/L (21-32) Anion Gap 5 mmol/L (5-15) Blood Urea Nitrogen 7 mg/dL (7-18) Creatinine 0.7 MG/DL (0.55-1.30) Estimat Glomerular Filtration Rate mL/min (>60) Glucose Level 80 MG/DL (74-106) Calcium Level 8.8 MG/DL (8.5-10.1) Height (Feet): 5 Height (Inches): 2.00 Weight (Pounds): 116 General Appearance: WD/WN, no apparent distress, alert, thin Cardiovascular: normal rate Respiratory/Chest: normal breath sounds, no respiratory distress Abdominal Exam: normal bowel sounds, non tender, soft, GT site - c/d/i Extremities: non-tender Aidee Powell NP Aug 05, 2018 11:33
[2018-08-05 12:00] VITALS: BP 109/69
--- NOTE | 2018-08-05 12:08 | Infectious Diseases Prog Note ---
Assessment/Plan Assessment/Plan A; Sepsis/ SIRS treated Bacteremia, likelly contamination UTI with E.coli treated DVT of left leg, ? PE DM type 2 Anemia Thrombocytopenia Leukopenia Dysphagia s/p GT placement P; Observe off antibiotic Subjective ROS Limited/Unobtainable: Yes Allergies: Coded Allergies: No Known Allergies (Unverified , 07/26/18) Objective Vital Signs Last 24 Hour Vital Signs Date Time Temp Pulse Resp B/P (MAP) Pulse Ox O2 Delivery O2 Flow Rate FiO2 08/05/18 09:10 Room Air 08/05/18 08:00 96.8 92 21 124/65 (84) 99 08/05/18 04:00 99.2 90 20 97/58 (71) 98 08/05/18 00:00 98.4 92 20 133/69 (90) 99 08/04/18 21:15 Room Air 08/04/18 20:00 99.5 99 19 151/84 (106) 97 08/04/18 16:00 98.2 89 17 140/67 (91) 97 Height (Feet): 5 Height (Inches): 2.00 Weight (Pounds): 116 General Appearance: no acute distress HEENT: mucous membranes moist Respiratory/Chest: lungs clear Cardiovascular: normal rate Abdomen: soft, non tender, other - GT feeding Neurologic/Psychiatric: unresponsiveness Laboratory Tests Test 08/05/18 08:50 White Blood Count 3.1 K/UL (4.8-10.8) L Red Blood Count 2.94 M/UL (4.20-5.40) L Hemoglobin 9.0 G/DL (12.0-16.0) L Hematocrit 27.0 % (37.0-47.0) L Mean Corpuscular Volume 92 FL (80-99) Mean Corpuscular Hemoglobin 30.7 PG (27.0-31.0) Mean Corpuscular Hemoglobin Concent 33.5 G/DL (32.0-36.0) Red Cell Distribution Width 15.9 % (11.6-14.8) H Platelet Count 71 K/UL (150-450) L Mean Platelet Volume 7.8 FL (6.5-10.1) Neutrophils (%) (Auto) % (45.0-75.0) Lymphocytes (%) (Auto) % (20.0-45.0) Monocytes (%) (Auto) % (1.0-10.0) Eosinophils (%) (Auto) % (0.0-3.0) Basophils (%) (Auto) % (0.0-2.0) Differential Total Cells Counted 100 Neutrophils % (Manual) 87 % (45-75) H Lymphocytes % (Manual) 9 % (20-45) L Monocytes % (Manual) 3 % (1-10) Eosinophils % (Manual) 1 % (0-3) Basophils % (Manual) 0 % (0-2) Band Neutrophils 0 % (0-8) Platelet Estimate Decreased L Platelet Morphology Normal Prothrombin Time 11.7 SEC (9.30-11.50) H Prothromb Time International Ratio 1.1 (0.9-1.1) Sodium Level 139 MMOL/L (136-145) Potassium Level 3.6 MMOL/L (3.5-5.1) Chloride Level 106 MMOL/L (98-107) Carbon Dioxide Level 28 MMOL/L (21-32) Anion Gap 5 mmol/L (5-15) Blood Urea Nitrogen 7 mg/dL (7-18) Creatinine 0.7 MG/DL (0.55-1.30) Estimat Glomerular Filtration Rate mL/min (>60) Glucose Level 80 MG/DL (74-106) Calcium Level 8.8 MG/DL (8.5-10.1) Current Medications Medications (Trade) Dose Ordered Sig/Laure Route PRN Reason Start Time Stop Time Status Last Admin Dose Admin Acetaminophen (Tylenol) 650 mg Q4H PRN ORAL Fever/Headache/Mild Pain 08/02/18 13:21 08/25/18 13:20 Aspirin (ASA) 81 mg DAILY NG 08/03/18 09:00 08/30/18 08:59 08/05/18 08:59 Ceftriaxone Sodium 1 gm/ Dextrose 55 ml @ 110 mls/hr DAILY IVPB 08/03/18 09:00 08/05/18 14:59 08/04/18 09:49 Dextrose (Dextrose 50%) 25 ml Q30M PRN IV Hypoglycemia 08/02/18 13:45 08/25/18 15:14 Dextrose (Dextrose 50%) 50 ml Q30M PRN IV Hypoglycemia 08/02/18 13:45 08/25/18 15:14 Dextrose/ Electrolytes 1,000 ml @ 75 mls/hr [id number] IV 08/03/18 12:00 09/02/18 11:59 08/05/18 03:33 Enoxaparin Sodium (Lovenox) 70 mg Q24H SUBQ 08/03/18 10:00 08/31/18 09:59 08/05/18 10:46 Famotidine (Pepcid) 20 mg BID ORAL 08/02/18 18:00 08/25/18 17:59 08/05/18 08:59 Haloperidol Lactate (Haldol) 5 mg Q6H PRN IM Agitation 08/03/18 23:30 09/02/18 23:29 Insulin Aspart (NovoLOG) BEFORE MEALS AND HS SUBQ 08/02/18 16:30 08/25/18 16:29 08/05/18 06:23 Lorazepam (Ativan 2mg/ml 1ml) 1 mg EVERY 4 HOURS PRN IM anxiety 08/03/18 23:30 08/10/18 23:29 08/03/18 23:55 Potassium Chloride (K-Dur) 40 meq DAILY GT 08/05/18 09:00 09/04/18 08:59 08/05/18 08:59 Quetiapine Fumarate (SEROquel) 12.5 mg Q4H PRN ORAL agitation 08/02/18 15:15 08/26/18 11:14 Quetiapine Fumarate (SEROquel) 25 mg Q12HR GT 08/04/18 21:00 08/26/18 10:39 08/05/18 08:59 Warfarin Sodium (Coumadin per pharmacy) 1 ea DAILY PRN MISC PER RX PROTOCOL 08/04/18 14:45 09/03/18 14:44 Warfarin Sodium (Coumadin) 3 mg COUMADIN ONCE GT 08/05/18 17:00 08/05/18 17:01 Shimon Card MD Aug 05, 2018 12:08
--- NOTE | 2018-08-05 14:41 | Diagnostic Imaging Report ---
Indications: DYSPHAGIA Technique: Patient ingested multiple substances under the supervision of speech pathology. Video fluoroscopic recording performed. Total fluoroscopy time 139 seconds. Total dose area product 0.60718 mGycm2. Total number of fluoroscopic cineimages-7 Comparison: None Findings: Aspiration of thin liquid barium is demonstrated. There is delay in initiation of deglutition with all substances. There is deep penetration of nectar thick liquid barium. Patient did not swallow honey thick liquid barium until after fluoroscopy has been turned off. Technologist reports patient coughed indicating audible aspiration when swallowing Impression: Positive for aspiration of thin liquid barium and deep penetration of nectar thick liquid barium Please refer to speech pathology report for more detailed analysis
[2018-08-05 16:00] VITALS: BP 116/66
[2018-08-05] MEDS ORDERED: Warfarin Sodium 3mg GT ONE (17:00)
[2018-08-05 20:00] VITALS: BP 107/68
--- NOTE | 2018-08-05 20:42 | General Progress Note ---
Assessment/Plan Problem List: (1) Dementia with behavioral disturbance ICD Codes: F03.91 - Unspecified dementia with behavioral disturbance SNOMED: 4684439843039 (2) Malnutrition ICD Codes: E46 - Unspecified protein-calorie malnutrition SNOMED: 75257973 (3) Sepsis ICD Codes: A41.9 - Sepsis, unspecified organism SNOMED: 98112960 (4) Dehydration ICD Codes: E86.0 - Dehydration SNOMED: 36760729 (5) UTI (urinary tract infection) ICD Codes: N39.0 - Urinary tract infection, site not specified SNOMED: 00154550 Status: progressing Assessment/Plan needs placement afebrile dementia uti hydronephrosis s/p peg malnutrition Subjective ROS Limited/Unobtainable: Yes Constitutional: Reports: no symptoms Allergies: Coded Allergies: No Known Allergies (Unverified , 07/26/18) Objective Last 24 Hour Vital Signs Date Time Temp Pulse Resp B/P (MAP) Pulse Ox O2 Delivery O2 Flow Rate FiO2 08/05/18 16:00 98.7 85 18 116/66 (83) 98 08/05/18 12:00 97.9 90 18 109/69 (82) 98 08/05/18 09:10 Room Air 08/05/18 08:00 96.8 92 21 124/65 (84) 99 08/05/18 04:00 99.2 90 20 97/58 (71) 98 08/05/18 00:00 98.4 92 20 133/69 (90) 99 08/04/18 21:15 Room Air Intake and Output 08/04/18 08/05/18 19:00 07:00 Intake Total 1125 ml 1615 ml Output Total 0 ml Balance 1125 ml 1615 ml Free Water 80 ml 330 ml IV Total 905 ml 825 ml Tube Feeding 140 ml 460 ml Estimated Blood Loss 0 ml # Voids 3 3 Laboratory Tests 08/05/18 08:50: White Blood Count 3.1L, Red Blood Count 2.94L, Hemoglobin 9.0L, Hematocrit 27.0L , Mean Corpuscular Volume 92, Mean Corpuscular Hemoglobin 30.7, Mean Corpuscular Hemoglobin Concent 33.5, Red Cell Distribution Width 15.9H, Platelet Count 71L, Mean Platelet Volume 7.8, Neutrophils (%) (Auto) , Lymphocytes (%) (Auto) , Monocytes (%) (Auto) , Eosinophils (%) (Auto) , Basophils (%) (Auto) , Differential Total Cells Counted 100, Neutrophils % ( Manual) 87H, Lymphocytes % (Manual) 9L, Monocytes % (Manual) 3, Eosinophils % ( Manual) 1, Basophils % (Manual) 0, Band Neutrophils 0, Platelet Estimate DecreasedL, Platelet Morphology Normal, Prothrombin Time 11.7H, Prothromb Time International Ratio 1.1, Sodium Level 139, Potassium Level 3.6, Chloride Level 106, Carbon Dioxide Level 28, Anion Gap 5, Blood Urea Nitrogen 7, Creatinine 0.7 , Estimat Glomerular Filtration Rate , Glucose Level 80, Calcium Level 8.8 Height (Feet): 5 Height (Inches): 2.00 Weight (Pounds): 116 General Appearance: confused Yi Asencio MD Aug 05, 2018 20:42
--- NOTE | 2018-08-05 22:22 | General Progress Note ---
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 2. Dementia. PLAN: 1. We will continue the Seroquel. 2. Provide reality orientation and supportive therapy. 3. Bilateral soft restraint. 4. the pt s son should sign the consent Subjective Date patient seen: Aug 05, 2018 Neurologic/Psychiatric: Reports: anxiety, emotional problems Allergies: Coded Allergies: No Known Allergies (Unverified , 07/26/18) Subjective the pt is confused Objective Last 24 Hour Vital Signs Date Time Temp Pulse Resp B/P (MAP) Pulse Ox O2 Delivery O2 Flow Rate FiO2 08/05/18 21:33 Room Air 08/05/18 20:00 98.4 91 16 107/68 (81) 98 08/05/18 16:00 98.7 85 18 116/66 (83) 98 08/05/18 12:00 97.9 90 18 109/69 (82) 98 08/05/18 09:10 Room Air 08/05/18 08:00 96.8 92 21 124/65 (84) 99 08/05/18 04:00 99.2 90 20 97/58 (71) 98 08/05/18 00:00 98.4 92 20 133/69 (90) 99 Intake and Output 08/04/18 08/05/18 19:00 07:00 Intake Total 1125 ml 1615 ml Output Total 0 ml Balance 1125 ml 1615 ml Free Water 80 ml 330 ml IV Total 905 ml 825 ml Tube Feeding 140 ml 460 ml Estimated Blood Loss 0 ml # Voids 3 3 Laboratory Tests 08/05/18 08:50: White Blood Count 3.1L, Red Blood Count 2.94L, Hemoglobin 9.0L, Hematocrit 27.0L , Mean Corpuscular Volume 92, Mean Corpuscular Hemoglobin 30.7, Mean Corpuscular Hemoglobin Concent 33.5, Red Cell Distribution Width 15.9H, Platelet Count 71L, Mean Platelet Volume 7.8, Neutrophils (%) (Auto) , Lymphocytes (%) (Auto) , Monocytes (%) (Auto) , Eosinophils (%) (Auto) , Basophils (%) (Auto) , Differential Total Cells Counted 100, Neutrophils % ( Manual) 87H, Lymphocytes % (Manual) 9L, Monocytes % (Manual) 3, Eosinophils % ( Manual) 1, Basophils % (Manual) 0, Band Neutrophils 0, Platelet Estimate DecreasedL, Platelet Morphology Normal, Prothrombin Time 11.7H, Prothromb Time International Ratio 1.1, Sodium Level 139, Potassium Level 3.6, Chloride Level 106, Carbon Dioxide Level 28, Anion Gap 5, Blood Urea Nitrogen 7, Creatinine 0.7 , Estimat Glomerular Filtration Rate , Glucose Level 80, Calcium Level 8.8 Height (Feet): 5 Height (Inches): 2.00 Weight (Pounds): 116 General Appearance: no apparent distress, alert, confused Kimmy Chavez MD Aug 05, 2018 22:22
--- NOTE | 2018-08-05 22:27 | Pulmonology Progress Note ---
Assessment/Plan Assessment/Plan Assessment/Plan ASSESSMENT: The patient is a 78-year-old female, [facility] resident with a presumed history of dementia, hypertension, and hyperlipidemia, presenting with a systemic inflammatory response syndrome, gram-negative bacillus UTI, and acute left superficial vein DVT with likely pulmonary embolism as well. PROBLEM LIST: 1. Extensive left superficial vein DVT (this is a deep vein). 2. Likely pulmonary embolism as well. 3. Hypoxemia. 4. Gram-negative bacillus UTI. 5. GPC bacteremia 6. Hypernatremia and hypokalemia. 7. Protein-calorie malnutrition 8. Likely underlying dementia versus encephalopathy. 9. Hypertension. 10. Hyperlipidemia. 11. Thrombocytopenia. 12. Normocytic anemia. 13. S/P PEG TREATMENT PLAN: -A/C per heme -Consideration for IVCF if unable to tolerated A/C -Abx per ID -Monitor volumes & renal function, IVF per renal -Aspiration precautions -Start TF's when ok with GI -Full Code, continue to discuss goals of care. Subjective Allergies: Coded Allergies: No Known Allergies (Unverified , 07/26/18) Subjective AFVSS, leta AC, no bleeding No distress, no cough, no SOB, no F/C S/P PEG Objective Last 24 Hour Vital Signs Date Time Temp Pulse Resp B/P (MAP) Pulse Ox O2 Delivery O2 Flow Rate FiO2 08/04/18 12:00 98.2 74 19 136/63 (87) 99 08/04/18 10:40 86 18 100 08/04/18 10:36 83 18 100 08/04/18 09:00 Room Air 08/04/18 07:37 98.0 81 15 149/73 98 Room Air 08/04/18 07:30 74 14 145/75 98 Room Air 08/04/18 07:25 72 15 139/80 100 Nasal Cannula 3 08/04/18 07:17 98.3 83 18 145/75 100 Nasal Cannula 3 08/04/18 04:00 96.8 99 18 146/78 (100) 98 08/04/18 00:00 98.1 84 18 152/68 (96) 98 08/03/18 21:00 Room Air 08/03/18 20:00 97.8 75 19 157/73 (101) 98 08/03/18 16:00 97.3 69 18 147/66 (93) 98 Intake and Output 08/03/18 08/04/18 19:00 07:00 Intake Total 880 ml 825 ml Balance 880 ml 825 ml IV Total 880 ml 825 ml # Voids 3 4 # Bowel Movements 1 General Appearance: no acute distress HEENT: normocephalic, atraumatic, anicteric Respiratory/Chest: chest wall non-tender, lungs clear, normal breath sounds, no respiratory distress, no accessory muscle use Cardiovascular: normal peripheral pulses, normal rate, regular rhythm Abdomen: normal bowel sounds, soft, non tender, no organomegaly, non distended , no mass, other - PEG Extremities: no cyanosis, no clubbing, no edema Laboratory Tests 08/04/18 06:00: White Blood Count 3.9L, Red Blood Count 3.25L, Hemoglobin 10.1L, Hematocrit 29.6L, Mean Corpuscular Volume 91, Mean Corpuscular Hemoglobin 31.0, Mean Corpuscular Hemoglobin Concent 34.1, Red Cell Distribution Width 15.1H, Platelet Count 82L, Mean Platelet Volume 8.1, Neutrophils (%) (Auto) , Lymphocytes (%) (Auto) , Monocytes (%) (Auto) , Eosinophils (%) (Auto) , Basophils (%) (Auto) , Differential Total Cells Counted 100, Neutrophils % ( Manual) 91H, Lymphocytes % (Manual) 8L, Monocytes % (Manual) 1, Eosinophils % ( Manual) 0, Basophils % (Manual) 0, Band Neutrophils 0, Platelet Estimate DecreasedL, Platelet Morphology Normal, Anisocytosis 1+, Prothrombin Time 11.8H , Prothromb Time International Ratio 1.1, Activated Partial Thromboplast Time 31 , Sodium Level 142, Potassium Level 3.4L, Chloride Level 106, Carbon Dioxide Level 29, Anion Gap 8, Blood Urea Nitrogen 4L, Creatinine 0.7, Estimat Glomerular Filtration Rate , Glucose Level 122H, Calcium Level 9.1, Phosphorus Level 2.7, Magnesium Level 1.8, Total Bilirubin 0.6, Direct Bilirubin 0.1, Aspartate Amino Transf (AST/SGOT) 33, Alanine Aminotransferase (ALT/SGPT) 29, Alkaline Phosphatase 87, Total Protein 7.1, Albumin 2.6L Current Medications Medications (Trade) Dose Ordered Sig/Laure Route PRN Reason Start Time Stop Time Status Last Admin Dose Admin Acetaminophen (Tylenol) 650 mg Q4H PRN ORAL Fever/Headache/Mild Pain 08/02/18 13:21 08/25/18 13:20 Aspirin (ASA) 81 mg DAILY NG 08/03/18 09:00 08/30/18 08:59 08/04/18 09:48 Ceftriaxone Sodium 1 gm/ Dextrose 55 ml @ 110 mls/hr DAILY IVPB 08/03/18 09:00 08/05/18 14:59 08/04/18 09:49 Dextrose (Dextrose 50%) 25 ml Q30M PRN IV Hypoglycemia 08/02/18 13:45 08/25/18 15:14 Dextrose (Dextrose 50%) 50 ml Q30M PRN IV Hypoglycemia 08/02/18 13:45 08/25/18 15:14 Dextrose/ Electrolytes 1,000 ml @ 75 mls/hr [id number] IV 08/03/18 12:00 09/02/18 11:59 08/04/18 01:27 Enoxaparin Sodium (Lovenox) 70 mg Q24H SUBQ 08/03/18 10:00 08/31/18 09:59 08/04/18 12:48 Famotidine (Pepcid) 20 mg BID ORAL 08/02/18 18:00 08/25/18 17:59 08/04/18 09:48 Haloperidol Lactate (Haldol) 5 mg Q6H PRN IM Agitation 08/03/18 23:30 09/02/18 23:29 Insulin Aspart (NovoLOG) BEFORE MEALS AND HS SUBQ 08/02/18 16:30 08/25/18 16:29 08/04/18 11:54 Lorazepam (Ativan 2mg/ml 1ml) 1 mg EVERY 4 HOURS PRN IM anxiety 08/03/18 23:30 08/10/18 23:29 08/03/18 23:55 Potassium Chloride (K-Dur) 40 meq DAILY GT 08/05/18 09:00 09/04/18 08:59 Quetiapine Fumarate (SEROquel) 12.5 mg Q4H PRN ORAL agitation 08/02/18 15:15 08/26/18 11:14 Quetiapine Fumarate (SEROquel) 25 mg Q12HR ORAL 08/02/18 21:00 08/26/18 10:39 08/04/18 09:47 Subjective ROS Limited/Unobtainable: No Allergies: Coded Allergies: No Known Allergies (Unverified , 07/26/18) Objective Last 24 Hour Vital Signs Date Time Temp Pulse Resp B/P (MAP) Pulse Ox O2 Delivery O2 Flow Rate FiO2 08/05/18 21:33 Room Air 08/05/18 20:00 98.4 91 16 107/68 (81) 98 08/05/18 16:00 98.7 85 18 116/66 (83) 98 08/05/18 12:00 97.9 90 18 109/69 (82) 98 08/05/18 09:10 Room Air 08/05/18 08:00 96.8 92 21 124/65 (84) 99 08/05/18 04:00 99.2 90 20 97/58 (71) 98 08/05/18 00:00 98.4 92 20 133/69 (90) 99 Intake and Output 08/04/18 08/05/18 19:00 07:00 Intake Total 1125 ml 1615 ml Output Total 0 ml Balance 1125 ml 1615 ml Free Water 80 ml 330 ml IV Total 905 ml 825 ml Tube Feeding 140 ml 460 ml Estimated Blood Loss 0 ml # Voids 3 3 Laboratory Tests 08/05/18 08:50: White Blood Count 3.1L, Red Blood Count 2.94L, Hemoglobin 9.0L, Hematocrit 27.0L , Mean Corpuscular Volume 92, Mean Corpuscular Hemoglobin 30.7, Mean Corpuscular Hemoglobin Concent 33.5, Red Cell Distribution Width 15.9H, Platelet Count 71L, Mean Platelet Volume 7.8, Neutrophils (%) (Auto) , Lymphocytes (%) (Auto) , Monocytes (%) (Auto) , Eosinophils (%) (Auto) , Basophils (%) (Auto) , Differential Total Cells Counted 100, Neutrophils % ( Manual) 87H, Lymphocytes % (Manual) 9L, Monocytes % (Manual) 3, Eosinophils % ( Manual) 1, Basophils % (Manual) 0, Band Neutrophils 0, Platelet Estimate DecreasedL, Platelet Morphology Normal, Prothrombin Time 11.7H, Prothromb Time International Ratio 1.1, Sodium Level 139, Potassium Level 3.6, Chloride Level 106, Carbon Dioxide Level 28, Anion Gap 5, Blood Urea Nitrogen 7, Creatinine 0.7 , Estimat Glomerular Filtration Rate , Glucose Level 80, Calcium Level 8.8 Current Medications Medications (Trade) Dose Ordered Sig/Laure Route PRN Reason Start Time Stop Time Status Last Admin Dose Admin Acetaminophen (Tylenol) 650 mg Q4H PRN ORAL Fever/Headache/Mild Pain 08/02/18 13:21 08/25/18 13:20 Aspirin (ASA) 81 mg DAILY NG 08/03/18 09:00 08/30/18 08:59 08/05/18 08:59 Dextrose (Dextrose 50%) 25 ml Q30M PRN IV Hypoglycemia 08/02/18 13:45 08/25/18 15:14 Dextrose (Dextrose 50%) 50 ml Q30M PRN IV Hypoglycemia 08/02/18 13:45 08/25/18 15:14 Dextrose/ Electrolytes 1,000 ml @ 75 mls/hr [id number] IV 08/03/18 12:00 09/02/18 11:59 08/05/18 03:33 Enoxaparin Sodium (Lovenox) 70 mg Q24H SUBQ 08/03/18 10:00 08/31/18 09:59 08/05/18 10:46 Famotidine (Pepcid) 20 mg BID ORAL 08/02/18 18:00 08/25/18 17:59 08/05/18 17:39 Haloperidol Lactate (Haldol) 5 mg Q6H PRN IM Agitation 08/03/18 23:30 09/02/18 23:29 Insulin Aspart (NovoLOG) BEFORE MEALS AND HS SUBQ 08/02/18 16:30 08/25/18 16:29 08/05/18 21:39 Lorazepam (Ativan 2mg/ml 1ml) 1 mg EVERY 4 HOURS PRN IM anxiety 08/03/18 23:30 08/10/18 23:29 08/03/18 23:55 Potassium Chloride (K-Dur) 40 meq DAILY GT 08/05/18 09:00 09/04/18 08:59 08/05/18 08:59 Quetiapine Fumarate (SEROquel) 12.5 mg Q4H PRN ORAL agitation 08/02/18 15:15 08/26/18 11:14 Quetiapine Fumarate (SEROquel) 25 mg Q12HR GT 08/04/18 21:00 08/26/18 10:39 08/05/18 20:11 Warfarin Sodium (Coumadin per pharmacy) 1 ea DAILY PRN MISC PER RX PROTOCOL 08/04/18 14:45 09/03/18 14:44 Valente Camacho MD Aug 05, 2018 22:27
[2018-08-06] VITALS: BP 122/69
[2018-08-06 04:00] VITALS: BP 122/66
[2018-08-06] MEDS: D5 1/2NS w/KCl 20mEq 1,000 ML IV SCH ×2 (05:58→20:01)
[2018-08-06] MEDS: NovoLOG Insulin Flexpen SUBQ SCH ×4 (06:01→20:43)
[2018-08-06 07:19] LABS: INR 1.1 (0.9-1.1)
[2018-08-06 08:00] VITALS: BP 134/74
--- NOTE | 2018-08-06 08:02 | General Progress Note ---
Assessment/Plan Problem List: (1) Malnutrition ICD Codes: E46 - Unspecified protein-calorie malnutrition SNOMED: 27355676 (2) Encephalopathy due to metabolic factor or toxin SNOMED: 679771006 (3) Dementia with behavioral disturbance ICD Codes: F03.91 - Unspecified dementia with behavioral disturbance SNOMED: 3299016588522 Assessment/Plan abdominal U/S reviewed >> normal liver echogenicity s/p PEG GTFs per RD, tolerating ppi abx zofran prn fu labs dc planning Subjective ROS Limited/Unobtainable: No Allergies: Coded Allergies: No Known Allergies (Unverified , 07/26/18) Objective Last 24 Hour Vital Signs Date Time Temp Pulse Resp B/P (MAP) Pulse Ox O2 Delivery O2 Flow Rate FiO2 08/06/18 04:00 98.0 91 16 122/66 (84) 99 08/06/18 00:00 97.8 61 18 122/69 (86) 100 08/05/18 21:33 Room Air 08/05/18 20:00 98.4 91 16 107/68 (81) 98 08/05/18 16:00 98.7 85 18 116/66 (83) 98 08/05/18 12:00 97.9 90 18 109/69 (82) 98 08/05/18 09:10 Room Air Intake and Output 08/05/18 08/06/18 19:00 07:00 Intake Total 585 ml 1580 ml Output Total 500 ml Balance 85 ml 1580 ml Free Water 90 ml 300 ml IV Total 675 ml Tube Feeding 495 ml 605 ml Output Urine Total 500 ml # Voids 1 3 # Bowel Movements 1 Laboratory Tests 08/05/18 08:50: White Blood Count 3.1L, Red Blood Count 2.94L, Hemoglobin 9.0L, Hematocrit 27.0L , Mean Corpuscular Volume 92, Mean Corpuscular Hemoglobin 30.7, Mean Corpuscular Hemoglobin Concent 33.5, Red Cell Distribution Width 15.9H, Platelet Count 71L, Mean Platelet Volume 7.8, Neutrophils (%) (Auto) , Lymphocytes (%) (Auto) , Monocytes (%) (Auto) , Eosinophils (%) (Auto) , Basophils (%) (Auto) , Differential Total Cells Counted 100, Neutrophils % ( Manual) 87H, Lymphocytes % (Manual) 9L, Monocytes % (Manual) 3, Eosinophils % ( Manual) 1, Basophils % (Manual) 0, Band Neutrophils 0, Platelet Estimate DecreasedL, Platelet Morphology Normal, Prothrombin Time 11.7H, Prothromb Time International Ratio 1.1, Sodium Level 139, Potassium Level 3.6, Chloride Level 106, Carbon Dioxide Level 28, Anion Gap 5, Blood Urea Nitrogen 7, Creatinine 0.7 , Estimat Glomerular Filtration Rate , Glucose Level 80, Calcium Level 8.8 08/06/18 06:30: Prothrombin Time 11.4, Prothromb Time International Ratio 1.1 Height (Feet): 5 Height (Inches): 2.00 Weight (Pounds): 116 General Appearance: no apparent distress EENT: normal ENT inspection Neck: supple Cardiovascular: normal rate Respiratory/Chest: decreased breath sounds Abdomen: normal bowel sounds, non tender, soft Extremities: non-tender Edwardo Argueta MD Aug 06, 2018 08:02
[2018-08-06] MEDS: Aspirin Baby 81mg NG SCH (09:34)
[2018-08-06] MEDS: Enoxaparin Sodium 300mg/3ml vial SUBQ SCH (09:40)
[2018-08-06 12:00] VITALS: BP 101/62
--- NOTE | 2018-08-06 12:54 | Nephrology Progress Note ---
Assessment/Plan Problem List: (1) UTI (urinary tract infection) (2) Dehydration (3) Hypernatremia (4) Hypokalemia (5) Malnutrition Assessment failed swallow test has PEG now Dehydration- Hypernatremia DM OOC Anemia UTI Malnutrition Plan Has GT now K via GT IV iron mag and K supplement as needed Per consultants Dc planning Subjective ROS Limited/Unobtainable: No Objective Objective Last 24 Hour Vital Signs Date Time Temp Pulse Resp B/P (MAP) Pulse Ox O2 Delivery O2 Flow Rate FiO2 08/06/18 12:00 97.3 95 16 101/62 (75) 98 08/06/18 09:00 Room Air 08/06/18 08:00 97.9 94 18 134/74 (94) 99 08/06/18 04:00 98.0 91 16 122/66 (84) 99 08/06/18 00:00 97.8 61 18 122/69 (86) 100 08/05/18 21:33 Room Air 08/05/18 20:00 98.4 91 16 107/68 (81) 98 08/05/18 16:00 98.7 85 18 116/66 (83) 98 Intake and Output 08/05/18 08/06/18 18:59 06:59 Intake Total 555 ml 1665 ml Output Total 500 ml Balance 55 ml 1665 ml Free Water 60 ml 330 ml IV Total 675 ml Tube Feeding 495 ml 660 ml Output Urine Total 500 ml # Voids 1 3 # Bowel Movements 1 Laboratory Tests 08/06/18 06:30: Prothrombin Time 11.4, Prothromb Time International Ratio 1.1 Height (Feet): 5 Height (Inches): 2.00 Weight (Pounds): 116 General Appearance: no apparent distress Objective no change Parvez Bergman MD Aug 06, 2018 12:54
[2018-08-06 16:00] VITALS: BP 123/68
[2018-08-06] MEDS ORDERED: Warfarin Sodium 5mg ORAL SCH (17:00)
--- NOTE | 2018-08-06 18:20 | Pulmonology Progress Note ---
Assessment/Plan Assessment/Plan Assessment/Plan ASSESSMENT: The patient is a 78-year-old female, [facility] resident with a presumed history of dementia, hypertension, and hyperlipidemia, presenting with a systemic inflammatory response syndrome, gram-negative bacillus UTI, and acute left superficial vein DVT with likely pulmonary embolism as well. PROBLEM LIST: 1. Extensive left superficial vein DVT (this is a deep vein). 2. Likely pulmonary embolism as well. 3. Hypoxemia. 4. Gram-negative bacillus UTI. 5. GPC bacteremia 6. Hypernatremia and hypokalemia. 7. Protein-calorie malnutrition 8. Likely underlying dementia versus encephalopathy. 9. Hypertension. 10. Hyperlipidemia. 11. Thrombocytopenia. 12. Normocytic anemia. 13. S/P PEG TREATMENT PLAN: -A/C per heme -Consideration for IVCF if unable to tolerated A/C -Abx per ID -Monitor volumes & renal function, IVF per renal -Aspiration precautions -Start TF's when ok with GI -Full Code, continue to discuss goals of care. Subjective Allergies: Coded Allergies: No Known Allergies (Unverified , 07/26/18) Subjective AFVSS, leta AC, no bleeding No distress, no cough, no SOB, no F/C S/P PEG Objective Last 24 Hour Vital Signs Date Time Temp Pulse Resp B/P (MAP) Pulse Ox O2 Delivery O2 Flow Rate FiO2 08/04/18 12:00 98.2 74 19 136/63 (87) 99 08/04/18 10:40 86 18 100 08/04/18 10:36 83 18 100 08/04/18 09:00 Room Air 08/04/18 07:37 98.0 81 15 149/73 98 Room Air 08/04/18 07:30 74 14 145/75 98 Room Air 08/04/18 07:25 72 15 139/80 100 Nasal Cannula 3 08/04/18 07:17 98.3 83 18 145/75 100 Nasal Cannula 3 08/04/18 04:00 96.8 99 18 146/78 (100) 98 08/04/18 00:00 98.1 84 18 152/68 (96) 98 08/03/18 21:00 Room Air 08/03/18 20:00 97.8 75 19 157/73 (101) 98 08/03/18 16:00 97.3 69 18 147/66 (93) 98 Intake and Output 08/03/18 08/04/18 19:00 07:00 Intake Total 880 ml 825 ml Balance 880 ml 825 ml IV Total 880 ml 825 ml # Voids 3 4 # Bowel Movements 1 General Appearance: no acute distress HEENT: normocephalic, atraumatic, anicteric Respiratory/Chest: chest wall non-tender, lungs clear, normal breath sounds, no respiratory distress, no accessory muscle use Cardiovascular: normal peripheral pulses, normal rate, regular rhythm Abdomen: normal bowel sounds, soft, non tender, no organomegaly, non distended , no mass, other - PEG Extremities: no cyanosis, no clubbing, no edema Laboratory Tests 08/04/18 06:00: White Blood Count 3.9L, Red Blood Count 3.25L, Hemoglobin 10.1L, Hematocrit 29.6L, Mean Corpuscular Volume 91, Mean Corpuscular Hemoglobin 31.0, Mean Corpuscular Hemoglobin Concent 34.1, Red Cell Distribution Width 15.1H, Platelet Count 82L, Mean Platelet Volume 8.1, Neutrophils (%) (Auto) , Lymphocytes (%) (Auto) , Monocytes (%) (Auto) , Eosinophils (%) (Auto) , Basophils (%) (Auto) , Differential Total Cells Counted 100, Neutrophils % ( Manual) 91H, Lymphocytes % (Manual) 8L, Monocytes % (Manual) 1, Eosinophils % ( Manual) 0, Basophils % (Manual) 0, Band Neutrophils 0, Platelet Estimate DecreasedL, Platelet Morphology Normal, Anisocytosis 1+, Prothrombin Time 11.8H , Prothromb Time International Ratio 1.1, Activated Partial Thromboplast Time 31 , Sodium Level 142, Potassium Level 3.4L, Chloride Level 106, Carbon Dioxide Level 29, Anion Gap 8, Blood Urea Nitrogen 4L, Creatinine 0.7, Estimat Glomerular Filtration Rate , Glucose Level 122H, Calcium Level 9.1, Phosphorus Level 2.7, Magnesium Level 1.8, Total Bilirubin 0.6, Direct Bilirubin 0.1, Aspartate Amino Transf (AST/SGOT) 33, Alanine Aminotransferase (ALT/SGPT) 29, Alkaline Phosphatase 87, Total Protein 7.1, Albumin 2.6L Current Medications Medications (Trade) Dose Ordered Sig/Laure Route PRN Reason Start Time Stop Time Status Last Admin Dose Admin Acetaminophen (Tylenol) 650 mg Q4H PRN ORAL Fever/Headache/Mild Pain 08/02/18 13:21 08/25/18 13:20 Aspirin (ASA) 81 mg DAILY NG 08/03/18 09:00 08/30/18 08:59 08/04/18 09:48 Ceftriaxone Sodium 1 gm/ Dextrose 55 ml @ 110 mls/hr DAILY IVPB 08/03/18 09:00 08/05/18 14:59 08/04/18 09:49 Dextrose (Dextrose 50%) 25 ml Q30M PRN IV Hypoglycemia 08/02/18 13:45 08/25/18 15:14 Dextrose (Dextrose 50%) 50 ml Q30M PRN IV Hypoglycemia 08/02/18 13:45 08/25/18 15:14 Dextrose/ Electrolytes 1,000 ml @ 75 mls/hr [id number] IV 08/03/18 12:00 09/02/18 11:59 08/04/18 01:27 Enoxaparin Sodium (Lovenox) 70 mg Q24H SUBQ 08/03/18 10:00 08/31/18 09:59 08/04/18 12:48 Famotidine (Pepcid) 20 mg BID ORAL 08/02/18 18:00 08/25/18 17:59 08/04/18 09:48 Haloperidol Lactate (Haldol) 5 mg Q6H PRN IM Agitation 08/03/18 23:30 09/02/18 23:29 Insulin Aspart (NovoLOG) BEFORE MEALS AND HS SUBQ 08/02/18 16:30 08/25/18 16:29 08/04/18 11:54 Lorazepam (Ativan 2mg/ml 1ml) 1 mg EVERY 4 HOURS PRN IM anxiety 08/03/18 23:30 08/10/18 23:29 08/03/18 23:55 Potassium Chloride (K-Dur) 40 meq DAILY GT 08/05/18 09:00 09/04/18 08:59 Quetiapine Fumarate (SEROquel) 12.5 mg Q4H PRN ORAL agitation 08/02/18 15:15 08/26/18 11:14 Quetiapine Fumarate (SEROquel) 25 mg Q12HR ORAL 08/02/18 21:00 08/26/18 10:39 10/25/18 09:47 Subjective ROS Limited/Unobtainable: No Allergies: Coded Allergies: No Known Allergies (Unverified , 07/26/18) Objective Last 24 Hour Vital Signs Date Time Temp Pulse Resp B/P (MAP) Pulse Ox O2 Delivery O2 Flow Rate FiO2 08/06/18 16:00 98.3 93 18 123/68 (86) 98 08/06/18 12:00 97.3 95 16 101/62 (75) 98 08/06/18 09:00 Room Air 08/06/18 08:00 97.9 94 18 134/74 (94) 99 08/06/18 04:00 98.0 91 16 122/66 (84) 99 08/06/18 00:00 97.8 61 18 122/69 (86) 100 08/05/18 21:33 Room Air 08/05/18 20:00 98.4 91 16 107/68 (81) 98 Intake and Output 08/05/18 08/06/18 19:00 07:00 Intake Total 585 ml 1580 ml Output Total 500 ml Balance 85 ml 1580 ml Free Water 90 ml 300 ml IV Total 675 ml Tube Feeding 495 ml 605 ml Output Urine Total 500 ml # Voids 1 3 # Bowel Movements 1 Laboratory Tests 08/06/18 06:30: Prothrombin Time 11.4, Prothromb Time International Ratio 1.1 Current Medications Medications (Trade) Dose Ordered Sig/Laure Route PRN Reason Start Time Stop Time Status Last Admin Dose Admin Acetaminophen (Tylenol) 650 mg Q4H PRN ORAL Fever/Headache/Mild Pain 08/02/18 13:21 08/25/18 13:20 Aspirin (ASA) 81 mg DAILY NG 08/03/18 09:00 08/30/18 08:59 08/06/18 09:34 Dextrose (Dextrose 50%) 25 ml Q30M PRN IV Hypoglycemia 08/02/18 13:45 08/25/18 15:14 Dextrose (Dextrose 50%) 50 ml Q30M PRN IV Hypoglycemia 08/02/18 13:45 08/25/18 15:14 Dextrose/ Electrolytes 1,000 ml @ 75 mls/hr [id number] IV 08/03/18 12:00 09/02/18 11:59 08/06/18 05:58 Enoxaparin Sodium (Lovenox) 70 mg Q24H SUBQ 08/03/18 10:00 08/31/18 09:59 08/06/18 09:40 Famotidine (Pepcid) 20 mg BID ORAL 08/02/18 18:00 08/25/18 17:59 08/06/18 17:23 Haloperidol Lactate (Haldol) 5 mg Q6H PRN IM Agitation 08/03/18 23:30 09/02/18 23:29 Insulin Aspart (NovoLOG) BEFORE MEALS AND HS SUBQ 08/02/18 16:30 08/25/18 16:29 08/06/18 16:43 Lorazepam (Ativan 2mg/ml 1ml) 1 mg EVERY 4 HOURS PRN IM anxiety 08/03/18 23:30 08/10/18 23:29 08/03/18 23:55 Potassium Chloride (K-Dur) 40 meq DAILY GT 08/05/18 09:00 09/04/18 08:59 08/06/18 09:35 Quetiapine Fumarate (SEROquel) 12.5 mg Q4H PRN ORAL agitation 08/02/18 15:15 08/26/18 11:14 Quetiapine Fumarate (SEROquel) 25 mg Q12HR GT 08/04/18 21:00 08/26/18 10:39 08/06/18 09:34 Warfarin Sodium (Coumadin per pharmacy) 1 ea DAILY PRN MISC PER RX PROTOCOL 08/04/18 14:45 09/03/18 14:44 Valente Camacho MD Aug 06, 2018 18:20
--- NOTE | 2018-08-06 18:23 | General Progress Note ---
Assessment/Plan Status: stable Assessment/Plan # DVT of the left leg -- superficial femoral vein which is a deep vein, new onset, has not had these symptoms before. --> discussed with renal, have stopped heparin gtt --> continue Lovenox as bridge and Coumadin --> INR goal 2-3 --> if plts drop any further, consider a IVC filter placement --> monitor platelet count closely --> appreciate Dr. Parekh and Mariam recs --> Plt count at 82k # Pancytopenia, this is her first time here at [facility], do not have baseline, appears new baseline 50-70k, several causes possible including viral, medication or intrabone marrow related. --> Cont to monitor plt count for improvement --> US abd: Mild left hydronephrosis. Possible left renal calyceal calculi. Negative for gallstones or dilated ducts Debris noted within the bladder --> Hep panel and HIV are both negative --> given extremely poor condition do not recommend a bone marrow biopsy, have discussed with family 08/01 with --> Current plt count 64k # Anemia of chronic disease. Multifactorial. Since admission Hgb has consistently remained between 8-9. --> Cont to monitor for stability --> Hgb goal above 7. Transfuse prn. --> Currently stable. --> IV iron completed # Dehydration. IVF has been administered # DM OOC --> A1C goal less than 7 --> Cont on insulin # UTI. --> ID is following. Appreciate recs. --> Pt on IV abx. --> Cultures - gram negative bacillus # PEG placement 08/04. Greatly appreciate consultation! Subjective Date patient seen: Aug 06, 2018 Allergies: Coded Allergies: No Known Allergies (Unverified , 07/26/18) Subjective No acute events. DC planning. Objective Last 24 Hour Vital Signs Date Time Temp Pulse Resp B/P (MAP) Pulse Ox O2 Delivery O2 Flow Rate FiO2 08/06/18 16:00 98.3 93 18 123/68 (86) 98 08/06/18 12:00 97.3 95 16 101/62 (75) 98 08/06/18 09:00 Room Air 08/06/18 08:00 97.9 94 18 134/74 (94) 99 08/06/18 04:00 98.0 91 16 122/66 (84) 99 08/06/18 00:00 97.8 61 18 122/69 (86) 100 08/05/18 21:33 Room Air 08/05/18 20:00 98.4 91 16 107/68 (81) 98 Intake and Output 08/05/18 08/06/18 19:00 07:00 Intake Total 585 ml 1635 ml Output Total 500 ml Balance 85 ml 1635 ml Free Water 90 ml 300 ml IV Total 675 ml Tube Feeding 495 ml 660 ml Output Urine Total 500 ml # Voids 1 3 # Bowel Movements 1 Laboratory Tests 08/06/18 06:30: Prothrombin Time 11.4, Prothromb Time International Ratio 1.1 Height (Feet): 5 Height (Inches): 2.00 Weight (Pounds): 116 General Appearance: no apparent distress EENT: PERRL/EOMI Neck: normal alignment Cardiovascular: normal peripheral pulses Respiratory/Chest: no respiratory distress Abdomen: normal bowel sounds Dewayne Gayle MD Aug 06, 2018 18:23
[2018-08-06 20:22] VITALS: BP 122/71
--- NOTE | 2018-08-06 21:19 | General Progress Note ---
Assessment/Plan Problem List: (1) Dementia with behavioral disturbance ICD Codes: F03.91 - Unspecified dementia with behavioral disturbance SNOMED: 9070268786385 (2) Malnutrition ICD Codes: E46 - Unspecified protein-calorie malnutrition SNOMED: 30189159 (3) Sepsis ICD Codes: A41.9 - Sepsis, unspecified organism SNOMED: 94326667 (4) Dehydration ICD Codes: E86.0 - Dehydration SNOMED: 74124066 (5) UTI (urinary tract infection) ICD Codes: N39.0 - Urinary tract infection, site not specified SNOMED: 01706121 Status: progressing Assessment/Plan needs placemen afebrile dementia uti improved hydronephrosis s/p peg Subjective ROS Limited/Unobtainable: Yes Allergies: Coded Allergies: No Known Allergies (Unverified , 07/26/18) Objective Last 24 Hour Vital Signs Date Time Temp Pulse Resp B/P (MAP) Pulse Ox O2 Delivery O2 Flow Rate FiO2 08/06/18 20:22 99.1 98 18 122/71 (88) 98 08/06/18 16:00 98.3 93 18 123/68 (86) 98 08/06/18 12:00 97.3 95 16 101/62 (75) 98 08/06/18 09:00 Room Air 08/06/18 08:00 97.9 94 18 134/74 (94) 99 08/06/18 04:00 98.0 91 16 122/66 (84) 99 08/06/18 00:00 97.8 61 18 122/69 (86) 100 08/05/18 21:33 Room Air Intake and Output 08/05/18 08/06/18 19:00 07:00 Intake Total 585 ml 1710 ml Output Total 500 ml Balance 85 ml 1710 ml Free Water 90 ml 300 ml IV Total 750 ml Tube Feeding 495 ml 660 ml Output Urine Total 500 ml # Voids 1 3 # Bowel Movements 1 Laboratory Tests 08/06/18 06:30: Prothrombin Time 11.4, Prothromb Time International Ratio 1.1 Height (Feet): 5 Height (Inches): 2.00 Weight (Pounds): 116 General Appearance: confused Cardiovascular: normal rate Respiratory/Chest: lungs clear Abdomen: soft Yi Asencio MD Aug 06, 2018 21:19
--- NOTE | 2018-08-06 23:24 | General Progress Note ---
Assessment/Plan Problem List: (1) Dementia with behavioral disturbance ICD Codes: F03.91 - Unspecified dementia with behavioral disturbance SNOMED: 8875143309618 (2) Encephalopathy due to metabolic factor or toxin SNOMED: 482140657 Status: stable Assessment/Plan 1. 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 2. Dementia. PLAN: 1. We will continue the Seroquel. 2. Provide reality orientation and supportive therapy. 3. Bilateral soft restraint. 4. the pt s son should sign the consent Subjective Neurologic/Psychiatric: Reports: anxiety, depressed, emotional problems Allergies: Coded Allergies: No Known Allergies (Unverified , 07/26/18) Subjective the pt is confused Objective Last 24 Hour Vital Signs Date Time Temp Pulse Resp B/P (MAP) Pulse Ox O2 Delivery O2 Flow Rate FiO2 08/06/18 21:41 Room Air 08/06/18 20:22 99.1 98 18 122/71 (88) 98 08/06/18 16:00 98.3 93 18 123/68 (86) 98 08/06/18 12:00 97.3 95 16 101/62 (75) 98 08/06/18 09:00 Room Air 08/06/18 08:00 97.9 94 18 134/74 (94) 99 08/06/18 04:00 98.0 91 16 122/66 (84) 99 08/06/18 00:00 97.8 61 18 122/69 (86) 100 Intake and Output 08/05/18 08/06/18 19:00 07:00 Intake Total 585 ml 1710 ml Output Total 500 ml Balance 85 ml 1710 ml Free Water 90 ml 300 ml IV Total 750 ml Tube Feeding 495 ml 660 ml Output Urine Total 500 ml # Voids 1 3 # Bowel Movements 1 Laboratory Tests 08/06/18 06:30: Prothrombin Time 11.4, Prothromb Time International Ratio 1.1 Height (Feet): 5 Height (Inches): 2.00 Weight (Pounds): 116 General Appearance: no apparent distress, alert, confused, agitated Kimmy Chavez MD Aug 06, 2018 23:24
[2018-08-07 00:45] VITALS: BP 132/70
[2018-08-07 04:30] VITALS: BP 117/90
[2018-08-07] MEDS: NovoLOG Insulin Flexpen SUBQ SCH ×4 (05:45→20:56)
[2018-08-07 07:10] LABS: INR 1.3 (0.9-1.1)
--- NOTE | 2018-08-07 07:35 | General Progress Note ---
Assessment/Plan Problem List: (1) Malnutrition ICD Codes: E46 - Unspecified protein-calorie malnutrition SNOMED: 76228521 (2) Encephalopathy due to metabolic factor or toxin SNOMED: 651673973 (3) Dementia with behavioral disturbance ICD Codes: F03.91 - Unspecified dementia with behavioral disturbance SNOMED: 7523428741735 Assessment/Plan abdominal U/S reviewed >> normal liver echogenicity s/p PEG GTFs per RD, tolerating ppi abx zofran prn fu labs dc planning Subjective ROS Limited/Unobtainable: No Allergies: Coded Allergies: No Known Allergies (Unverified , 07/26/18) Objective Last 24 Hour Vital Signs Date Time Temp Pulse Resp B/P (MAP) Pulse Ox O2 Delivery O2 Flow Rate FiO2 08/07/18 04:30 98.0 87 18 117/90 (99) 98 08/07/18 00:45 97.0 92 18 132/70 (90) 100 08/06/18 21:41 Room Air 08/06/18 20:22 99.1 98 18 122/71 (88) 98 08/06/18 16:00 98.3 93 18 123/68 (86) 98 08/06/18 12:00 97.3 95 16 101/62 (75) 98 08/06/18 09:00 Room Air 08/06/18 08:00 97.9 94 18 134/74 (94) 99 Intake and Output 08/06/18 08/07/18 19:00 07:00 Intake Total 1760 ml 1555 ml Balance 1760 ml 1555 ml Free Water 200 ml 200 ml IV Total 900 ml 750 ml Tube Feeding 660 ml 605 ml # Voids 2 2 # Bowel Movements 5 1 Laboratory Tests 08/07/18 05:45: Prothrombin Time 13.8H, Prothromb Time International Ratio 1.3H Height (Feet): 5 Height (Inches): 2.00 Weight (Pounds): 116 General Appearance: no apparent distress EENT: normal ENT inspection Neck: supple Cardiovascular: normal rate Respiratory/Chest: decreased breath sounds Abdomen: normal bowel sounds, non tender, soft Extremities: non-tender Edwardo Argueta MD Aug 07, 2018 07:35
[2018-08-07 08:00] VITALS: BP 149/77
[2018-08-07] MEDS: Aspirin Baby 81mg NG SCH (09:42)
[2018-08-07] MEDS: Enoxaparin Sodium 300mg/3ml vial SUBQ SCH (09:44)
[2018-08-07] MEDS: D5 1/2NS w/KCl 20mEq 1,000 ML IV SCH (09:45)
[2018-08-07 12:00] VITALS: BP 118/54
--- NOTE | 2018-08-07 13:46 | Nephrology Progress Note ---
Assessment/Plan Problem List: (1) UTI (urinary tract infection) (2) Dehydration (3) Hypernatremia (4) Hypokalemia (5) Malnutrition Assessment failed swallow test has PEG now Dehydration- Hypernatremia DM OOC Anemia UTI Malnutrition Plan check labs in am DC IV fluids- Has GT now on feeding K via GT IV iron mag and K supplement as needed Per consultants Dc planning Subjective ROS Limited/Unobtainable: No Constitutional: Reports: malaise Objective Objective Last 24 Hour Vital Signs Date Time Temp Pulse Resp B/P (MAP) Pulse Ox O2 Delivery O2 Flow Rate FiO2 08/07/18 12:00 97.8 85 18 118/54 (75) 97 08/07/18 09:00 Room Air 08/07/18 08:00 98.0 89 18 149/77 (101) 98 08/07/18 04:30 98.0 87 18 117/90 (99) 98 08/07/18 00:45 97.0 92 18 132/70 (90) 100 08/06/18 21:41 Room Air 08/06/18 20:22 99.1 98 18 122/71 (88) 98 08/06/18 16:00 98.3 93 18 123/68 (86) 98 Intake and Output 08/06/18 08/07/18 18:59 06:59 Intake Total 1660 ml 1785 ml Balance 1660 ml 1785 ml Free Water 100 ml 300 ml IV Total 900 ml 825 ml Tube Feeding 660 ml 660 ml # Voids 2 2 # Bowel Movements 5 1 Laboratory Tests 08/07/18 05:45: Prothrombin Time 13.8H, Prothromb Time International Ratio 1.3H Height (Feet): 5 Height (Inches): 2.00 Weight (Pounds): 116 General Appearance: no apparent distress Cardiovascular: normal rate Respiratory/Chest: lungs clear Abdomen: soft Objective no change Parvez Bergman MD Aug 07, 2018 13:46
[2018-08-07 16:00] VITALS: BP 120/61
[2018-08-07] MEDS ORDERED: Warfarin Sodium 5mg ORAL ONE (17:00)
--- NOTE | 2018-08-07 17:53 | Pulmonology Progress Note ---
Assessment/Plan Assessment/Plan Assessment/Plan ASSESSMENT: The patient is a 78-year-old female, [facility] resident with a presumed history of dementia, hypertension, and hyperlipidemia, presenting with a systemic inflammatory response syndrome, gram-negative bacillus UTI, and acute left superficial vein DVT with likely pulmonary embolism as well. PROBLEM LIST: 1. Extensive left superficial vein DVT (this is a deep vein). 2. Likely pulmonary embolism as well. 3. Hypoxemia. 4. Gram-negative bacillus UTI. 5. GPC bacteremia 6. Hypernatremia and hypokalemia. 7. Protein-calorie malnutrition 8. Likely underlying dementia versus encephalopathy. 9. Hypertension. 10. Hyperlipidemia. 11. Thrombocytopenia. 12. Normocytic anemia. 13. S/P PEG TREATMENT PLAN: -A/C per heme -Consideration for IVCF if unable to tolerated A/C -Abx per ID -Monitor volumes & renal function, IVF per renal -Aspiration precautions -Start TF's when ok with GI -Full Code, continue to discuss goals of care. Subjective Allergies: Coded Allergies: No Known Allergies (Unverified , 07/26/18) Subjective AFVSS, leta AC, no bleeding No distress, no cough, no SOB, no F/C S/P PEG Objective Last 24 Hour Vital Signs Date Time Temp Pulse Resp B/P (MAP) Pulse Ox O2 Delivery O2 Flow Rate FiO2 08/04/18 12:00 98.2 74 19 136/63 (87) 99 08/04/18 10:40 86 18 100 08/04/18 10:36 83 18 100 08/04/18 09:00 Room Air 08/04/18 07:37 98.0 81 15 149/73 98 Room Air 08/04/18 07:30 74 14 145/75 98 Room Air 08/04/18 07:25 72 15 139/80 100 Nasal Cannula 3 08/04/18 07:17 98.3 83 18 145/75 100 Nasal Cannula 3 08/04/18 04:00 96.8 99 18 146/78 (100) 98 08/04/18 00:00 98.1 84 18 152/68 (96) 98 08/03/18 21:00 Room Air 08/03/18 20:00 97.8 75 19 157/73 (101) 98 08/03/18 16:00 97.3 69 18 147/66 (93) 98 Intake and Output 08/03/18 08/04/18 19:00 07:00 Intake Total 880 ml 825 ml Balance 880 ml 825 ml IV Total 880 ml 825 ml # Voids 3 4 # Bowel Movements 1 General Appearance: no acute distress HEENT: normocephalic, atraumatic, anicteric Respiratory/Chest: chest wall non-tender, lungs clear, normal breath sounds, no respiratory distress, no accessory muscle use Cardiovascular: normal peripheral pulses, normal rate, regular rhythm Abdomen: normal bowel sounds, soft, non tender, no organomegaly, non distended , no mass, other - PEG Extremities: no cyanosis, no clubbing, no edema Laboratory Tests 08/04/18 06:00: White Blood Count 3.9L, Red Blood Count 3.25L, Hemoglobin 10.1L, Hematocrit 29.6L, Mean Corpuscular Volume 91, Mean Corpuscular Hemoglobin 31.0, Mean Corpuscular Hemoglobin Concent 34.1, Red Cell Distribution Width 15.1H, Platelet Count 82L, Mean Platelet Volume 8.1, Neutrophils (%) (Auto) , Lymphocytes (%) (Auto) , Monocytes (%) (Auto) , Eosinophils (%) (Auto) , Basophils (%) (Auto) , Differential Total Cells Counted 100, Neutrophils % ( Manual) 91H, Lymphocytes % (Manual) 8L, Monocytes % (Manual) 1, Eosinophils % ( Manual) 0, Basophils % (Manual) 0, Band Neutrophils 0, Platelet Estimate DecreasedL, Platelet Morphology Normal, Anisocytosis 1+, Prothrombin Time 11.8H , Prothromb Time International Ratio 1.1, Activated Partial Thromboplast Time 31 , Sodium Level 142, Potassium Level 3.4L, Chloride Level 106, Carbon Dioxide Level 29, Anion Gap 8, Blood Urea Nitrogen 4L, Creatinine 0.7, Estimat Glomerular Filtration Rate , Glucose Level 122H, Calcium Level 9.1, Phosphorus Level 2.7, Magnesium Level 1.8, Total Bilirubin 0.6, Direct Bilirubin 0.1, Aspartate Amino Transf (AST/SGOT) 33, Alanine Aminotransferase (ALT/SGPT) 29, Alkaline Phosphatase 87, Total Protein 7.1, Albumin 2.6L Current Medications Medications (Trade) Dose Ordered Sig/Laure Route PRN Reason Start Time Stop Time Status Last Admin Dose Admin Acetaminophen (Tylenol) 650 mg Q4H PRN ORAL Fever/Headache/Mild Pain 08/02/18 13:21 08/25/18 13:20 Aspirin (ASA) 81 mg DAILY NG 08/03/18 09:00 08/30/18 08:59 08/04/18 09:48 Ceftriaxone Sodium 1 gm/ Dextrose 55 ml @ 110 mls/hr DAILY IVPB 08/03/18 09:00 08/05/18 14:59 08/04/18 09:49 Dextrose (Dextrose 50%) 25 ml Q30M PRN IV Hypoglycemia 08/02/18 13:45 08/25/18 15:14 Dextrose (Dextrose 50%) 50 ml Q30M PRN IV Hypoglycemia 08/02/18 13:45 08/25/18 15:14 Dextrose/ Electrolytes 1,000 ml @ 75 mls/hr [id number] IV 08/03/18 12:00 09/02/18 11:59 08/04/18 01:27 Enoxaparin Sodium (Lovenox) 70 mg Q24H SUBQ 08/03/18 10:00 08/31/18 09:59 08/04/18 12:48 Famotidine (Pepcid) 20 mg BID ORAL 08/02/18 18:00 08/25/18 17:59 08/04/18 09:48 Haloperidol Lactate (Haldol) 5 mg Q6H PRN IM Agitation 08/03/18 23:30 09/02/18 23:29 Insulin Aspart (NovoLOG) BEFORE MEALS AND HS SUBQ 08/02/18 16:30 08/25/18 16:29 08/04/18 11:54 Lorazepam (Ativan 2mg/ml 1ml) 1 mg EVERY 4 HOURS PRN IM anxiety 08/03/18 23:30 08/10/18 23:29 08/03/18 23:55 Potassium Chloride (K-Dur) 40 meq DAILY GT 08/05/18 09:00 09/04/18 08:59 Quetiapine Fumarate (SEROquel) 12.5 mg Q4H PRN ORAL agitation 08/02/18 15:15 08/26/18 11:14 Quetiapine Fumarate (SEROquel) 25 mg Q12HR ORAL 08/02/18 21:00 08/26/18 10:39 10/25/18 09:47 Subjective ROS Limited/Unobtainable: No Allergies: Coded Allergies: No Known Allergies (Unverified , 07/26/18) Objective Last 24 Hour Vital Signs Date Time Temp Pulse Resp B/P (MAP) Pulse Ox O2 Delivery O2 Flow Rate FiO2 08/07/18 16:00 98.1 72 12 120/61 (80) 95 08/07/18 12:00 97.8 85 18 118/54 (75) 97 08/07/18 09:00 Room Air 08/07/18 08:00 98.0 89 18 149/77 (101) 98 08/07/18 04:30 98.0 87 18 117/90 (99) 98 08/07/18 00:45 97.0 92 18 132/70 (90) 100 08/06/18 21:41 Room Air 08/06/18 20:22 99.1 98 18 122/71 (88) 98 Intake and Output 08/06/18 08/07/18 18:59 06:59 Intake Total 1660 ml 1785 ml Balance 1660 ml 1785 ml Free Water 100 ml 300 ml IV Total 900 ml 825 ml Tube Feeding 660 ml 660 ml # Voids 2 2 # Bowel Movements 5 1 Laboratory Tests 08/07/18 05:45: Prothrombin Time 13.8H, Prothromb Time International Ratio 1.3H Current Medications Medications (Trade) Dose Ordered Sig/Laure Route PRN Reason Start Time Stop Time Status Last Admin Dose Admin Acetaminophen (Tylenol) 650 mg Q4H PRN ORAL Fever/Headache/Mild Pain 08/02/18 13:21 08/25/18 13:20 Aspirin (ASA) 81 mg DAILY NG 08/03/18 09:00 08/30/18 08:59 08/07/18 09:42 Dextrose (Dextrose 50%) 25 ml Q30M PRN IV Hypoglycemia 08/02/18 13:45 08/25/18 15:14 Dextrose (Dextrose 50%) 50 ml Q30M PRN IV Hypoglycemia 08/02/18 13:45 08/25/18 15:14 Enoxaparin Sodium (Lovenox) 70 mg Q24H SUBQ 08/03/18 10:00 08/31/18 09:59 08/07/18 09:44 Famotidine (Pepcid) 20 mg BID ORAL 08/02/18 18:00 08/25/18 17:59 08/07/18 17:18 Haloperidol Lactate (Haldol) 5 mg Q6H PRN IM Agitation 08/03/18 23:30 09/02/18 23:29 Insulin Aspart (NovoLOG) BEFORE MEALS AND HS SUBQ 08/02/18 16:30 08/25/18 16:29 08/07/18 16:49 Lorazepam (Ativan 2mg/ml 1ml) 1 mg EVERY 4 HOURS PRN IM anxiety 08/03/18 23:30 08/10/18 23:29 08/03/18 23:55 Potassium Chloride (K-Dur) 40 meq BID GT 08/07/18 18:00 09/04/18 08:59 08/07/18 17:18 Quetiapine Fumarate (SEROquel) 12.5 mg Q4H PRN ORAL agitation 08/02/18 15:15 08/26/18 11:14 Quetiapine Fumarate (SEROquel) 25 mg Q12HR GT 08/04/18 21:00 08/26/18 10:39 08/07/18 09:43 Warfarin Sodium (Coumadin per pharmacy) 1 ea DAILY PRN MISC PER RX PROTOCOL 08/04/18 14:45 09/03/18 14:44 Valente Camacho MD Aug 07, 2018 17:53
--- NOTE | 2018-08-07 18:19 | General Progress Note ---
Assessment/Plan Status: stable Assessment/Plan # DVT of the left leg -- superficial femoral vein which is a deep vein, new onset, has not had these symptoms before. --> discussed with renal, have stopped heparin gtt --> continue Lovenox as bridge and Coumadin --> INR goal 2-3 --> If plts drop any further, consider a IVC filter placement --> monitor platelet count closely --> appreciate Dr. Parekh and Mariam recs --> Plt count at 82k # Pancytopenia, this is her first time here at [facility], do not have baseline, appears new baseline 50-70k, several causes possible including viral, medication or intrabone marrow related. --> Cont to monitor plt count for improvement --> US abd: Mild left hydronephrosis. Possible left renal calyceal calculi. Negative for gallstones or dilated ducts Debris noted within the bladder --> Hep panel and HIV are both negative --> given extremely poor condition do not recommend a bone marrow biopsy, have discussed with family 08/01 with --> Current plt count 64k # Anemia of chronic disease. Multifactorial. Since admission Hgb has consistently remained between 8-9. --> Cont to monitor for stability --> Hgb goal above 7. Transfuse prn. --> Currently stable. --> IV iron completed # Dehydration. IVF has been administered # DM OOC --> A1C goal less than 7 --> Cont on insulin # UTI. --> ID is following. Appreciate recs. --> Pt on IV abx. --> Cultures - gram negative bacillus # PEG placement 08/04. Greatly appreciate consultation! Subjective Date patient seen: Aug 07, 2018 ROS Limited/Unobtainable: Yes Hematologic/Lymphatic: Reports: anemia Allergies: Coded Allergies: No Known Allergies (Unverified , 07/26/18) Subjective No acute events. DC planning. Objective Last 24 Hour Vital Signs Date Time Temp Pulse Resp B/P (MAP) Pulse Ox O2 Delivery O2 Flow Rate FiO2 08/07/18 16:00 98.1 72 12 120/61 (80) 95 08/07/18 12:00 97.8 85 18 118/54 (75) 97 08/07/18 09:00 Room Air 08/07/18 08:00 98.0 89 18 149/77 (101) 98 08/07/18 04:30 98.0 87 18 117/90 (99) 98 08/07/18 00:45 97.0 92 18 132/70 (90) 100 08/06/18 21:41 Room Air 08/06/18 20:22 99.1 98 18 122/71 (88) 98 Intake and Output 08/06/18 08/07/18 18:59 06:59 Intake Total 1660 ml 1785 ml Balance 1660 ml 1785 ml Free Water 100 ml 300 ml IV Total 900 ml 825 ml Tube Feeding 660 ml 660 ml # Voids 2 2 # Bowel Movements 5 1 Laboratory Tests 08/07/18 05:45: Prothrombin Time 13.8H, Prothromb Time International Ratio 1.3H Height (Feet): 5 Height (Inches): 2.00 Weight (Pounds): 116 General Appearance: no apparent distress EENT: PERRL/EOMI Neck: non-tender, normal alignment Cardiovascular: normal peripheral pulses Respiratory/Chest: no respiratory distress Abdomen: normal bowel sounds Dewayne Gayle MD Aug 07, 2018 18:19
[2018-08-07 19:55] VITALS: BP 125/60
--- NOTE | 2018-08-07 21:05 | General Progress Note ---
Assessment/Plan Problem List: (1) Dementia with behavioral disturbance ICD Codes: F03.91 - Unspecified dementia with behavioral disturbance SNOMED: 4728856821669 (2) Malnutrition ICD Codes: E46 - Unspecified protein-calorie malnutrition SNOMED: 18708457 (3) Sepsis ICD Codes: A41.9 - Sepsis, unspecified organism SNOMED: 79976755 (4) Dehydration ICD Codes: E86.0 - Dehydration SNOMED: 12549707 (5) UTI (urinary tract infection) ICD Codes: N39.0 - Urinary tract infection, site not specified SNOMED: 15515995 Status: progressing Assessment/Plan needs placement afebrile dementia uti improved less agitated reviewed chart and labs s/p peg Subjective ROS Limited/Unobtainable: Yes Allergies: Coded Allergies: No Known Allergies (Unverified , 07/26/18) Objective Last 24 Hour Vital Signs Date Time Temp Pulse Resp B/P (MAP) Pulse Ox O2 Delivery O2 Flow Rate FiO2 08/07/18 19:55 97.7 100 17 125/60 (81) 96 08/07/18 16:00 98.1 72 12 120/61 (80) 95 08/07/18 12:00 97.8 85 18 118/54 (75) 97 08/07/18 09:00 Room Air 08/07/18 08:00 98.0 89 18 149/77 (101) 98 08/07/18 04:30 98.0 87 18 117/90 (99) 98 08/07/18 00:45 97.0 92 18 132/70 (90) 100 08/06/18 21:41 Room Air Intake and Output 08/06/18 08/07/18 19:00 07:00 Intake Total 1760 ml 1610 ml Balance 1760 ml 1610 ml Free Water 200 ml 200 ml IV Total 900 ml 750 ml Tube Feeding 660 ml 660 ml # Voids 2 2 # Bowel Movements 5 1 Laboratory Tests 08/07/18 05:45: Prothrombin Time 13.8H, Prothromb Time International Ratio 1.3H Height (Feet): 5 Height (Inches): 2.00 Weight (Pounds): 116 General Appearance: confused Cardiovascular: normal rate Respiratory/Chest: lungs clear Abdomen: soft Yi Asencio MD Aug 07, 2018 21:05
[2018-08-08 00:48] VITALS: BP 113/70
[2018-08-08 04:43] VITALS: BP 145/89
[2018-08-08] MEDS: NovoLOG Insulin Flexpen SUBQ SCH ×4 (05:45→22:35)
[2018-08-08 06:26] LABS: INR 1.8 (0.9-1.1)
[2018-08-08 06:33] LABS: HEMATOCRIT 24.4 % (37.0-47.0); HEMOGLOBIN 7.9 G/DL (12.0-16.0); MEAN CORPUSCULAR VOLUME 93 FL (80-99); PLATELET COUNT 80 K/UL (150-450); RED BLOOD COUNT 2.61 M/UL (4.20-5.40); WHITE BLOOD COUNT 2.7 K/UL (4.8-10.8)
[2018-08-08 06:58] LABS: ALANINE AMINOTRANSFERASE 11 U/L (12-78); ALBUMIN 2.1 G/DL (3.4-5.0); ALBUMIN/GLOBULIN RATIO 0.5 (1.0-2.7); ALKALINE PHOSPHATASE 76 U/L (46-116); ANION GAP 3 mmol/L (5-15); ASPARTATE AMINO TRANSFERASE 18 U/L (15-37); BILIRUBIN,TOTAL 0.3 MG/DL (0.2-1.0); BLOOD UREA NITROGEN 14 mg/dL (7-18); CALCIUM 9.1 MG/DL (8.5-10.1); CARBON DIOXIDE 31 MMOL/L (21-32); CHLORIDE 105 MMOL/L (98-107); CREATININE 0.7 MG/DL (0.55-1.30); PHOSPHORUS 3.4 MG/DL (2.5-4.9); POTASSIUM 4.5 MMOL/L (3.5-5.1); SODIUM 138 MMOL/L (136-145)
[2018-08-08 08:00] VITALS: BP 125/69
--- NOTE | 2018-08-08 08:37 | General Progress Note ---
Assessment/Plan Status: stable Assessment/Plan # DVT of the left leg -- superficial femoral vein which is a deep vein, new onset, has not had these symptoms before. --> discussed with renal, have stopped heparin gtt, stopped lovenox and coumadin --> Given low plts and anemia, will order ivc Filter --> IVF FILTER ORDERED PLACED, RETRIEVABLE TYPE --> appreciate Dr. Parekh and Mariam recs # Pancytopenia, this is her first time here at [place], do not have baseline, appears new baseline 50-70k, several causes possible including viral, medication or intrabone marrow related. --> Cont to monitor plt count for improvement --> US abd: Mild left hydronephrosis. Possible left renal calyceal calculi. Negative for gallstones or dilated ducts Debris noted within the bladder --> Hep panel and HIV are both negative --> given extremely poor condition do not recommend a bone marrow biopsy, have discussed with family 08/01 with --> Current plt count 64k # Anemia of chronic disease. Multifactorial. Since admission Hgb has consistently remained between 8-9. --> Cont to monitor for stability --> Hgb goal above 7. Transfuse prn. --> IV iron completed # Dehydration. IVF has been administered # DM OOC --> A1C goal less than 7 --> Cont on insulin # UTI. --> ID is following. Appreciate recs. --> Pt on IV abx. --> Cultures - gram negative bacillus # PEG placement 08/04. Greatly appreciate consultation! Subjective Date patient seen: Aug 08, 2018 ROS Limited/Unobtainable: Yes Hematologic/Lymphatic: Reports: anemia Allergies: Coded Allergies: No Known Allergies (Unverified , 07/26/18) Subjective No acute events. Afebrile. Objective Last 24 Hour Vital Signs Date Time Temp Pulse Resp B/P (MAP) Pulse Ox O2 Delivery O2 Flow Rate FiO2 08/08/18 08:00 98.2 90 19 125/69 (87) 97 08/08/18 04:43 97.9 98 18 145/89 (107) 98 08/08/18 00:48 98.1 85 18 113/70 (84) 98 08/07/18 22:32 Room Air 08/07/18 19:55 97.7 100 17 125/60 (81) 96 10/28/18 16:00 98.1 72 12 120/61 (80) 95 08/07/18 12:00 97.8 85 18 118/54 (75) 97 08/07/18 09:00 Room Air Intake and Output 08/07/18 08/08/18 19:00 07:00 Intake Total 760 ml 850 ml Balance 760 ml 850 ml Free Water 100 ml 300 ml Tube Feeding 660 ml 550 ml # Bowel Movements 1 Laboratory Tests 08/08/18 05:20: White Blood Count 2.7L, Red Blood Count 2.61L, Hemoglobin 7.9L, Hematocrit 24.4L , Mean Corpuscular Volume 93, Mean Corpuscular Hemoglobin 30.3, Mean Corpuscular Hemoglobin Concent 32.5, Red Cell Distribution Width 16.0H, Platelet Count 80L, Mean Platelet Volume 7.8, Neutrophils (%) (Auto) , Lymphocytes (%) (Auto) , Monocytes (%) (Auto) , Eosinophils (%) (Auto) , Basophils (%) (Auto) , Neutrophils % (Manual) [Pending], Lymphocytes % (Manual) [Pending], Platelet Estimate [Pending], Platelet Morphology [Pending], Prothrombin Time 18.8H, Prothromb Time International Ratio 1.8H, Sodium Level 138, Potassium Level 4.5, Chloride Level 105, Carbon Dioxide Level 31, Anion Gap 3L, Blood Urea Nitrogen 14, Creatinine 0.7, Estimat Glomerular Filtration Rate , Glucose Level 128H, Calcium Level 9.1, Phosphorus Level 3.4, Magnesium Level 1.8, Total Bilirubin 0.3, Aspartate Amino Transf (AST/SGOT) 18, Alanine Aminotransferase (ALT/SGPT) 11L, Alkaline Phosphatase 76, Total Protein 6.3L, Albumin 2.1L, Globulin 4.2, Albumin/Globulin Ratio 0.5L Height (Feet): 5 Height (Inches): 2.00 Weight (Pounds): 116 General Appearance: no apparent distress EENT: PERRL/EOMI Neck: normal alignment Cardiovascular: tachycardia Respiratory/Chest: no respiratory distress Abdomen: normal bowel sounds Dewayne Gayle MD Aug 08, 2018 08:36
[2018-08-08] MEDS: Aspirin Baby 81mg NG SCH (08:44)
[2018-08-08] MEDS: Enoxaparin Sodium 300mg/3ml vial SUBQ SCH (08:45)
--- NOTE | 2018-08-08 08:56 | Pulmonology Progress Note ---
Assessment/Plan Assessment/Plan ASSESSMENT: The patient is a 78-year-old female, group home resident with a presumed history of dementia, hypertension, and hyperlipidemia, presenting with a systemic inflammatory response syndrome, gram-negative bacillus UTI, and acute left superficial vein DVT with likely pulmonary embolism as well. PROBLEM LIST: 1. Extensive left superficial vein DVT (this is a deep vein). 2. Likely pulmonary embolism as well. 3. Hypoxemia. 4. Gram-negative bacillus UTI. 5. GPC bacteremia 6. Hypernatremia and hypokalemia. 7. Protein-calorie malnutrition 8. Likely underlying dementia versus encephalopathy. 9. Hypertension. 10. Hyperlipidemia. 11. Thrombocytopenia. 12. Normocytic anemia. 13. S/P PEG TREATMENT PLAN: -A/C per heme -D/W Dr. Gayle, given fluctuating platelet and Hb levels agree with plan for IVCF -If within GOC anemia should be worked up further, EGD done already, consider COLO, capsule, BMBx. DEFER TO PMD, HEME-ONC and GI -Monitor volumes & renal function -Aspiration precautions -TF's as tolerated -Full Code, continue to discuss goals of care. Subjective Allergies: Coded Allergies: No Known Allergies (Unverified , 07/26/18) Subjective Hb 7.9, Plt 80, INR 1.8 AFVSS, stable on RA No cough, no SOB, no F/C Objective Last 24 Hour Vital Signs Date Time Temp Pulse Resp B/P (MAP) Pulse Ox O2 Delivery O2 Flow Rate FiO2 08/08/18 08:00 98.2 90 19 125/69 (87) 97 08/08/18 04:43 97.9 98 18 145/89 (107) 98 08/08/18 00:48 98.1 85 18 113/70 (84) 98 08/07/18 22:32 Room Air 08/07/18 19:55 97.7 100 17 125/60 (81) 96 08/07/18 16:00 98.1 72 12 120/61 (80) 95 08/07/18 12:00 97.8 85 18 118/54 (75) 97 08/07/18 09:00 Room Air Intake and Output 08/07/18 08/08/18 19:00 07:00 Intake Total 760 ml 850 ml Balance 760 ml 850 ml Free Water 100 ml 300 ml Tube Feeding 660 ml 550 ml # Bowel Movements 1 General Appearance: no acute distress, cachetic HEENT: normocephalic, atraumatic, anicteric, mucous membranes moist Respiratory/Chest: chest wall non-tender, lungs clear, normal breath sounds, no respiratory distress Cardiovascular: normal peripheral pulses, normal rate, regular rhythm Abdomen: normal bowel sounds, soft, non tender, no organomegaly, non distended , no mass Extremities: no cyanosis, no clubbing, no edema Microbiology Date/Time Source Procedure Growth Status 08/08/18 00:41 Stool Clostridium difficile Toxin Assay - Final Complete Laboratory Tests 08/08/18 05:20: White Blood Count 2.7L, Red Blood Count 2.61L, Hemoglobin 7.9L, Hematocrit 24.4L , Mean Corpuscular Volume 93, Mean Corpuscular Hemoglobin 30.3, Mean Corpuscular Hemoglobin Concent 32.5, Red Cell Distribution Width 16.0H, Platelet Count 80L, Mean Platelet Volume 7.8, Neutrophils (%) (Auto) , Lymphocytes (%) (Auto) , Monocytes (%) (Auto) , Eosinophils (%) (Auto) , Basophils (%) (Auto) , Neutrophils % (Manual) [Pending], Lymphocytes % (Manual) [Pending], Platelet Estimate [Pending], Platelet Morphology [Pending], Prothrombin Time 18.8H, Prothromb Time International Ratio 1.8H, Sodium Level 138, Potassium Level 4.5, Chloride Level 105, Carbon Dioxide Level 31, Anion Gap 3L, Blood Urea Nitrogen 14, Creatinine 0.7, Estimat Glomerular Filtration Rate , Glucose Level 128H, Calcium Level 9.1, Phosphorus Level 3.4, Magnesium Level 1.8, Total Bilirubin 0.3, Aspartate Amino Transf (AST/SGOT) 18, Alanine Aminotransferase (ALT/SGPT) 11L, Alkaline Phosphatase 76, Total Protein 6.3L, Albumin 2.1L, Globulin 4.2, Albumin/Globulin Ratio 0.5L Current Medications Medications (Trade) Dose Ordered Sig/Laure Route PRN Reason Start Time Stop Time Status Last Admin Dose Admin Acetaminophen (Tylenol) 650 mg Q4H PRN ORAL Fever/Headache/Mild Pain 08/02/18 13:21 08/25/18 13:20 Aspirin (ASA) 81 mg DAILY NG 08/03/18 09:00 08/30/18 08:59 10/28/18 09:42 Dextrose (Dextrose 50%) 25 ml Q30M PRN IV Hypoglycemia 08/02/18 13:45 08/25/18 15:14 Dextrose (Dextrose 50%) 50 ml Q30M PRN IV Hypoglycemia 08/02/18 13:45 08/25/18 15:14 Enoxaparin Sodium (Lovenox) 70 mg Q24H SUBQ 08/03/18 10:00 08/31/18 09:59 08/07/18 09:44 Famotidine (Pepcid) 20 mg BID ORAL 08/02/18 18:00 08/25/18 17:59 08/07/18 17:18 Haloperidol Lactate (Haldol) 5 mg Q6H PRN IM Agitation 08/03/18 23:30 09/02/18 23:29 Insulin Aspart (NovoLOG) BEFORE MEALS AND HS SUBQ 08/02/18 16:30 08/25/18 16:29 08/08/18 05:45 Lorazepam (Ativan 2mg/ml 1ml) 1 mg EVERY 4 HOURS PRN IM anxiety 08/03/18 23:30 08/10/18 23:29 08/03/18 23:55 Potassium Chloride (K-Dur) 40 meq BID GT 08/07/18 18:00 09/04/18 08:59 08/07/18 17:18 Quetiapine Fumarate (SEROquel) 12.5 mg Q4H PRN ORAL agitation 08/02/18 15:15 08/26/18 11:14 Quetiapine Fumarate (SEROquel) 25 mg Q12HR GT 08/04/18 21:00 08/26/18 10:39 08/07/18 20:53 Warfarin Sodium (Coumadin per pharmacy) 1 ea DAILY PRN MISC PER RX PROTOCOL 08/04/18 14:45 09/03/18 14:44 Warfarin Sodium (Coumadin) 3 mg COUMADIN ORAL 08/08/18 17:00 08/08/18 18:00 Foreign Parekh MD Aug 08, 2018 08:56
[2018-08-08] MEDS ORDERED: Lidocaine 1% Plain 30 ml INJ PRN (09:00)
--- NOTE | 2018-08-08 10:40 | GI Progress Note ---
Assessment/Plan Problems: (1) UTI (urinary tract infection) ICD Codes: N39.0 - Urinary tract infection, site not specified SNOMED: 56221458 (2) Sepsis ICD Codes: A41.9 - Sepsis, unspecified organism SNOMED: 56914073 (3) Dehydration ICD Codes: E86.0 - Dehydration SNOMED: 70603287 (4) Malnutrition ICD Codes: E46 - Unspecified protein-calorie malnutrition SNOMED: 84014830 (5) Dementia with behavioral disturbance ICD Codes: F03.91 - Unspecified dementia with behavioral disturbance SNOMED: 2354629883444 Status: stable Status Narrative Discussed with Dr. Argueta. Assessment/Plan abdominal U/S reviewed >> normal liver echogenicity s/p PEG GTFs per RD, tolerating ppi abx zofran prn fu labs dc planning The patient was seen and examined at bedside and all new and available data was reviewed in the patients chart. I agree with the above findings, impression and plan. (Patient seen earlier today. Signature stamp does not reflect patient encounter time.). - Edwardo Argueta MD Subjective Subjective limited Objective Last 24 Hour Vital Signs Date Time Temp Pulse Resp B/P (MAP) Pulse Ox O2 Delivery O2 Flow Rate FiO2 08/08/18 09:00 Room Air 08/08/18 08:00 98.2 90 19 125/69 (87) 97 08/08/18 04:43 97.9 98 18 145/89 (107) 98 08/08/18 00:48 98.1 85 18 113/70 (84) 98 08/07/18 22:32 Room Air 08/07/18 19:55 97.7 100 17 125/60 (81) 96 08/07/18 16:00 98.1 72 12 120/61 (80) 95 08/07/18 12:00 97.8 85 18 118/54 (75) 97 Intake and Output 08/07/18 08/08/18 19:00 07:00 Intake Total 760 ml 905 ml Balance 760 ml 905 ml Free Water 100 ml 300 ml Tube Feeding 660 ml 605 ml # Bowel Movements 1 Laboratory Tests Test 08/08/18 05:20 White Blood Count 2.7 K/UL (4.8-10.8) L Red Blood Count 2.61 M/UL (4.20-5.40) L Hemoglobin 7.9 G/DL (12.0-16.0) L Hematocrit 24.4 % (37.0-47.0) L Mean Corpuscular Volume 93 FL (80-99) Mean Corpuscular Hemoglobin 30.3 PG (27.0-31.0) Mean Corpuscular Hemoglobin Concent 32.5 G/DL (32.0-36.0) Red Cell Distribution Width 16.0 % (11.6-14.8) H Platelet Count 80 K/UL (150-450) L Mean Platelet Volume 7.8 FL (6.5-10.1) Neutrophils (%) (Auto) % (45.0-75.0) Lymphocytes (%) (Auto) % (20.0-45.0) Monocytes (%) (Auto) % (1.0-10.0) Eosinophils (%) (Auto) % (0.0-3.0) Basophils (%) (Auto) % (0.0-2.0) Neutrophils % (Manual) Pending Lymphocytes % (Manual) Pending Platelet Estimate Pending Platelet Morphology Pending Prothrombin Time 18.8 SEC (9.30-11.50) H Prothromb Time International Ratio 1.8 (0.9-1.1) H Sodium Level 138 MMOL/L (136-145) Potassium Level 4.5 MMOL/L (3.5-5.1) Chloride Level 105 MMOL/L (98-107) Carbon Dioxide Level 31 MMOL/L (21-32) Anion Gap 3 mmol/L (5-15) L Blood Urea Nitrogen 14 mg/dL (7-18) Creatinine 0.7 MG/DL (0.55-1.30) Estimat Glomerular Filtration Rate mL/min (>60) Glucose Level 128 MG/DL (74-106) H Calcium Level 9.1 MG/DL (8.5-10.1) Phosphorus Level 3.4 MG/DL (2.5-4.9) Magnesium Level 1.8 MG/DL (1.8-2.4) Total Bilirubin 0.3 MG/DL (0.2-1.0) Aspartate Amino Transf (AST/SGOT) 18 U/L (15-37) Alanine Aminotransferase (ALT/SGPT) 11 U/L (12-78) L Alkaline Phosphatase 76 U/L (46-116) Total Protein 6.3 G/DL (6.4-8.2) L Albumin 2.1 G/DL (3.4-5.0) L Globulin 4.2 g/dL Albumin/Globulin Ratio 0.5 (1.0-2.7) L Microbiology Date/Time Source Procedure Growth Status 08/08/18 00:41 Stool Clostridium difficile Toxin Assay - Final Complete Height (Feet): 5 Height (Inches): 2.00 Weight (Pounds): 116 General Appearance: alert, thin Cardiovascular: normal rate Respiratory/Chest: normal breath sounds, no respiratory distress Abdominal Exam: non tender, soft Aidee Powell [employer] Aug 08, 2018 10:40
[2018-08-08] MEDS ORDERED: Phytonadione 10 MG in D5W 55 ML IVPB SCH (11:00)
[2018-08-08 12:00] VITALS: BP 127/71
--- NOTE | 2018-08-08 12:37 | General Progress Note ---
Assessment/Plan Problem List: (1) Dementia with behavioral disturbance ICD Codes: F03.91 - Unspecified dementia with behavioral disturbance SNOMED: 6443830882554 (2) Encephalopathy due to metabolic factor or toxin SNOMED: 550159541 Status: stable Assessment/Plan 1. 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 2. Dementia. PLAN: 1. We will continue the Seroquel. 2. Provide reality orientation and supportive therapy. 3. Bilateral soft restraint. 4. the pt s son should sign the consent Subjective Date patient seen: Aug 08, 2018 Neurologic/Psychiatric: Reports: anxiety, depressed, emotional problems Allergies: Coded Allergies: No Known Allergies (Unverified , 07/26/18) Subjective the pt is confused agitated at times Objective Last 24 Hour Vital Signs Date Time Temp Pulse Resp B/P (MAP) Pulse Ox O2 Delivery O2 Flow Rate FiO2 08/08/18 09:00 Room Air 08/08/18 08:00 98.2 90 19 125/69 (87) 97 08/08/18 04:43 97.9 98 18 145/89 (107) 98 08/08/18 00:48 98.1 85 18 113/70 (84) 98 08/07/18 22:32 Room Air 08/07/18 19:55 97.7 100 17 125/60 (81) 96 08/07/18 16:00 98.1 72 12 120/61 (80) 95 Intake and Output 08/07/18 08/08/18 19:00 07:00 Intake Total 760 ml 905 ml Balance 760 ml 905 ml Free Water 100 ml 300 ml Tube Feeding 660 ml 605 ml # Bowel Movements 1 Laboratory Tests 08/08/18 05:20: White Blood Count 2.7L, Red Blood Count 2.61L, Hemoglobin 7.9L, Hematocrit 24.4L , Mean Corpuscular Volume 93, Mean Corpuscular Hemoglobin 30.3, Mean Corpuscular Hemoglobin Concent 32.5, Red Cell Distribution Width 16.0H, Platelet Count 80L, Mean Platelet Volume 7.8, Neutrophils (%) (Auto) , Lymphocytes (%) (Auto) , Monocytes (%) (Auto) , Eosinophils (%) (Auto) , Basophils (%) (Auto) , Differential Total Cells Counted 100, Neutrophils % ( Manual) 74, Lymphocytes % (Manual) 15L, Monocytes % (Manual) 8, Eosinophils % ( Manual) 2, Basophils % (Manual) 1, Band Neutrophils 0, Platelet Estimate DecreasedL, Platelet Morphology Normal, Hypochromasia 3+, Anisocytosis 1+, Spherocytes 1+, Prothrombin Time 18.8H, Prothromb Time International Ratio 1.8H , Sodium Level 138, Potassium Level 4.5, Chloride Level 105, Carbon Dioxide Level 31, Anion Gap 3L, Blood Urea Nitrogen 14, Creatinine 0.7, Estimat Glomerular Filtration Rate , Glucose Level 128H, Calcium Level 9.1, Phosphorus Level 3.4, Magnesium Level 1.8, Total Bilirubin 0.3, Aspartate Amino Transf (AST /SGOT) 18, Alanine Aminotransferase (ALT/SGPT) 11L, Alkaline Phosphatase 76, Total Protein 6.3L, Albumin 2.1L, Globulin 4.2, Albumin/Globulin Ratio 0.5L Height (Feet): 5 Height (Inches): 2.00 Weight (Pounds): 116 General Appearance: no apparent distress, alert, confused Kimmy Chavez MD Aug 08, 2018 12:37
--- NOTE | 2018-08-08 12:38 | Psych Consult Progress Note ---
Psych Consult Progress Note Consult 08/07/18 DX: 1. 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 2. Dementia. PLAN: 1. We will continue the Seroquel. 2. Provide reality orientation and supportive therapy. 3. Bilateral soft restraint. 4. the pt s son should sign the consent Vital Signs Last 24 Hour Vital Signs Date Time Temp Pulse Resp B/P (MAP) Pulse Ox O2 Delivery O2 Flow Rate FiO2 08/08/18 09:00 Room Air 08/08/18 08:00 98.2 90 19 125/69 (87) 97 08/08/18 04:43 97.9 98 18 145/89 (107) 98 08/08/18 00:48 98.1 85 18 113/70 (84) 98 08/07/18 22:32 Room Air 08/07/18 19:55 97.7 100 17 125/60 (81) 96 08/07/18 16:00 98.1 72 12 120/61 (80) 95 Labs Laboratory Tests Test 08/08/18 05:20 White Blood Count 2.7 K/UL (4.8-10.8) L Red Blood Count 2.61 M/UL (4.20-5.40) L Hemoglobin 7.9 G/DL (12.0-16.0) L Hematocrit 24.4 % (37.0-47.0) L Mean Corpuscular Volume 93 FL (80-99) Mean Corpuscular Hemoglobin 30.3 PG (27.0-31.0) Mean Corpuscular Hemoglobin Concent 32.5 G/DL (32.0-36.0) Red Cell Distribution Width 16.0 % (11.6-14.8) H Platelet Count 80 K/UL (150-450) L Mean Platelet Volume 7.8 FL (6.5-10.1) Neutrophils (%) (Auto) % (45.0-75.0) Lymphocytes (%) (Auto) % (20.0-45.0) Monocytes (%) (Auto) % (1.0-10.0) Eosinophils (%) (Auto) % (0.0-3.0) Basophils (%) (Auto) % (0.0-2.0) Differential Total Cells Counted 100 Neutrophils % (Manual) 74 % (45-75) Lymphocytes % (Manual) 15 % (20-45) L Monocytes % (Manual) 8 % (1-10) Eosinophils % (Manual) 2 % (0-3) Basophils % (Manual) 1 % (0-2) Band Neutrophils 0 % (0-8) Platelet Estimate Decreased L Platelet Morphology Normal Hypochromasia 3+ Anisocytosis 1+ Spherocytes 1+ Prothrombin Time 18.8 SEC (9.30-11.50) H Prothromb Time International Ratio 1.8 (0.9-1.1) H Sodium Level 138 MMOL/L (136-145) Potassium Level 4.5 MMOL/L (3.5-5.1) Chloride Level 105 MMOL/L (98-107) Carbon Dioxide Level 31 MMOL/L (21-32) Anion Gap 3 mmol/L (5-15) L Blood Urea Nitrogen 14 mg/dL (7-18) Creatinine 0.7 MG/DL (0.55-1.30) Estimat Glomerular Filtration Rate mL/min (>60) Glucose Level 128 MG/DL (74-106) H Calcium Level 9.1 MG/DL (8.5-10.1) Phosphorus Level 3.4 MG/DL (2.5-4.9) Magnesium Level 1.8 MG/DL (1.8-2.4) Total Bilirubin 0.3 MG/DL (0.2-1.0) Aspartate Amino Transf (AST/SGOT) 18 U/L (15-37) Alanine Aminotransferase (ALT/SGPT) 11 U/L (12-78) L Alkaline Phosphatase 76 U/L (46-116) Total Protein 6.3 G/DL (6.4-8.2) L Albumin 2.1 G/DL (3.4-5.0) L Globulin 4.2 g/dL Albumin/Globulin Ratio 0.5 (1.0-2.7) L Medications Current Medications Medications (Trade) Dose Ordered Sig/Laure Route PRN Reason Start Time Stop Time Status Last Admin Dose Admin Acetaminophen (Tylenol) 650 mg Q4H PRN ORAL Fever/Headache/Mild Pain 08/02/18 13:21 08/25/18 13:20 Aspirin (ASA) 81 mg DAILY NG 08/03/18 09:00 08/30/18 08:59 08/08/18 08:44 Dextrose (Dextrose 50%) 25 ml Q30M PRN IV Hypoglycemia 08/02/18 13:45 08/25/18 15:14 Dextrose (Dextrose 50%) 50 ml Q30M PRN IV Hypoglycemia 08/02/18 13:45 08/25/18 15:14 Famotidine (Pepcid) 20 mg BID ORAL 08/02/18 18:00 08/25/18 17:59 08/08/18 08:44 Haloperidol Lactate (Haldol) 5 mg Q6H PRN IM Agitation 08/03/18 23:30 09/02/18 23:29 Insulin Aspart (NovoLOG) BEFORE MEALS AND HS SUBQ 08/02/18 16:30 08/25/18 16:29 08/08/18 11:49 Lidocaine HCl (Xylocaine 1% 30ml) 30 ml NOW PRN INJ Radiology Procedure 08/08/18 09:00 08/11/18 08:57 Loperamide HCl (Imodium) 2 mg Q4H PRN GT Diarrhea 08/08/18 10:30 09/07/18 10:29 08/08/18 11:47 Lorazepam (Ativan 2mg/ml 1ml) 1 mg EVERY 4 HOURS PRN IM anxiety 08/03/18 23:30 08/10/18 23:29 08/03/18 23:55 Phytonadione 10 mg/Dextrose 56 ml @ 112 mls/hr ONCE IVPB 08/08/18 11:00 08/08/18 13:00 08/08/18 11:48 Potassium Chloride (K-Dur) 40 meq BID GT 08/07/18 18:00 09/04/18 08:59 08/08/18 08:44 Quetiapine Fumarate (SEROquel) 12.5 mg Q4H PRN ORAL agitation 08/02/18 15:15 08/26/18 11:14 Quetiapine Fumarate (SEROquel) 25 mg Q12HR GT 08/04/18 21:00 08/26/18 10:39 08/08/18 08:44 Warfarin Sodium (Coumadin per pharmacy) 1 ea DAILY PRN MISC PER RX PROTOCOL 08/04/18 14:45 09/03/18 14:44 Problems: (1) Dementia with behavioral disturbance (2) Encephalopathy due to metabolic factor or toxin Kimmy Chavze MD Aug 08, 2018 12:38
--- NOTE | 2018-08-08 13:38 | Infectious Diseases Prog Note ---
Assessment/Plan Assessment/Plan A; Sepsis/ SIRS treated Bacteremia, likelly contamination UTI with E.coli treated DVT of left leg, ? PE DM type 2 Anemia Thrombocytopenia Leukopenia Dysphagia s/p GT placement P; Observe off antibiotic Subjective ROS Limited/Unobtainable: Yes Allergies: Coded Allergies: No Known Allergies (Unverified , 07/26/18) Objective Vital Signs Last 24 Hour Vital Signs Date Time Temp Pulse Resp B/P (MAP) Pulse Ox O2 Delivery O2 Flow Rate FiO2 08/08/18 12:00 98.0 71 18 127/71 (89) 97 08/08/18 09:00 Room Air 08/08/18 08:00 98.2 90 19 125/69 (87) 97 08/08/18 04:43 97.9 98 18 145/89 (107) 98 08/08/18 00:48 98.1 85 18 113/70 (84) 98 08/07/18 22:32 Room Air 08/07/18 19:55 97.7 100 17 125/60 (81) 96 08/07/18 16:00 98.1 72 12 120/61 (80) 95 Height (Feet): 5 Height (Inches): 2.00 Weight (Pounds): 116 General Appearance: no acute distress HEENT: mucous membranes moist Respiratory/Chest: lungs clear Cardiovascular: normal rate Abdomen: soft, non tender, other - GT feeding Extremities: no edema Neurologic/Psychiatric: aphasia Microbiology Date/Time Source Procedure Growth Status 08/08/18 00:41 Stool Clostridium difficile Toxin Assay - Final Complete Laboratory Tests Test 08/08/18 05:20 White Blood Count 2.7 K/UL (4.8-10.8) L Red Blood Count 2.61 M/UL (4.20-5.40) L Hemoglobin 7.9 G/DL (12.0-16.0) L Hematocrit 24.4 % (37.0-47.0) L Mean Corpuscular Volume 93 FL (80-99) Mean Corpuscular Hemoglobin 30.3 PG (27.0-31.0) Mean Corpuscular Hemoglobin Concent 32.5 G/DL (32.0-36.0) Red Cell Distribution Width 16.0 % (11.6-14.8) H Platelet Count 80 K/UL (150-450) L Mean Platelet Volume 7.8 FL (6.5-10.1) Neutrophils (%) (Auto) % (45.0-75.0) Lymphocytes (%) (Auto) % (20.0-45.0) Monocytes (%) (Auto) % (1.0-10.0) Eosinophils (%) (Auto) % (0.0-3.0) Basophils (%) (Auto) % (0.0-2.0) Differential Total Cells Counted 100 Neutrophils % (Manual) 74 % (45-75) Lymphocytes % (Manual) 15 % (20-45) L Monocytes % (Manual) 8 % (1-10) Eosinophils % (Manual) 2 % (0-3) Basophils % (Manual) 1 % (0-2) Band Neutrophils 0 % (0-8) Platelet Estimate Decreased L Platelet Morphology Normal Hypochromasia 3+ Anisocytosis 1+ Spherocytes 1+ Prothrombin Time 18.8 SEC (9.30-11.50) H Prothromb Time International Ratio 1.8 (0.9-1.1) H Sodium Level 138 MMOL/L (136-145) Potassium Level 4.5 MMOL/L (3.5-5.1) Chloride Level 105 MMOL/L (98-107) Carbon Dioxide Level 31 MMOL/L (21-32) Anion Gap 3 mmol/L (5-15) L Blood Urea Nitrogen 14 mg/dL (7-18) Creatinine 0.7 MG/DL (0.55-1.30) Estimat Glomerular Filtration Rate mL/min (>60) Glucose Level 128 MG/DL (74-106) H Calcium Level 9.1 MG/DL (8.5-10.1) Phosphorus Level 3.4 MG/DL (2.5-4.9) Magnesium Level 1.8 MG/DL (1.8-2.4) Total Bilirubin 0.3 MG/DL (0.2-1.0) Aspartate Amino Transf (AST/SGOT) 18 U/L (15-37) Alanine Aminotransferase (ALT/SGPT) 11 U/L (12-78) L Alkaline Phosphatase 76 U/L (46-116) Total Protein 6.3 G/DL (6.4-8.2) L Albumin 2.1 G/DL (3.4-5.0) L Globulin 4.2 g/dL Albumin/Globulin Ratio 0.5 (1.0-2.7) L Current Medications Medications (Trade) Dose Ordered Sig/Laure Route PRN Reason Start Time Stop Time Status Last Admin Dose Admin Acetaminophen (Tylenol) 650 mg Q4H PRN ORAL Fever/Headache/Mild Pain 08/02/18 13:21 08/25/18 13:20 Aspirin (ASA) 81 mg DAILY NG 08/03/18 09:00 08/30/18 08:59 08/08/18 08:44 Dextrose (Dextrose 50%) 25 ml Q30M PRN IV Hypoglycemia 08/02/18 13:45 08/25/18 15:14 Dextrose (Dextrose 50%) 50 ml Q30M PRN IV Hypoglycemia 08/02/18 13:45 08/25/18 15:14 Famotidine (Pepcid) 20 mg BID ORAL 08/02/18 18:00 08/25/18 17:59 08/08/18 08:44 Haloperidol Lactate (Haldol) 5 mg Q6H PRN IM Agitation 08/03/18 23:30 09/02/18 23:29 Insulin Aspart (NovoLOG) BEFORE MEALS AND HS SUBQ 08/02/18 16:30 08/25/18 16:29 08/08/18 11:49 Lidocaine HCl (Xylocaine 1% 30ml) 30 ml NOW PRN INJ Radiology Procedure 08/08/18 09:00 08/11/18 08:57 Loperamide HCl (Imodium) 2 mg Q4H PRN GT Diarrhea 08/08/18 10:30 09/07/18 10:29 08/08/18 11:47 Lorazepam (Ativan 2mg/ml 1ml) 1 mg EVERY 4 HOURS PRN IM anxiety 08/03/18 23:30 08/10/18 23:29 08/03/18 23:55 Potassium Chloride (K-Dur) 40 meq BID GT 08/07/18 18:00 09/04/18 08:59 08/08/18 08:44 Quetiapine Fumarate (SEROquel) 12.5 mg Q4H PRN ORAL agitation 08/02/18 15:15 08/26/18 11:14 Quetiapine Fumarate (SEROquel) 25 mg Q12HR GT 08/04/18 21:00 08/26/18 10:39 08/08/18 08:44 Warfarin Sodium (Coumadin per pharmacy) 1 ea DAILY PRN MISC PER RX PROTOCOL 08/04/18 14:45 09/03/18 14:44 Shimon Card MD Aug 08, 2018 13:38
--- NOTE | 2018-08-08 13:55 | Nephrology Progress Note ---
Assessment/Plan Problem List: (1) UTI (urinary tract infection) (2) Dehydration (3) Hypernatremia (4) Hypokalemia (5) Malnutrition Assessment failed swallow test has PEG now Dehydration- Hypernatremia DM OOC Anemia UTI Malnutrition Plan DC IV fluids- Has GT now on feeding K via GT IV iron mag and K supplement as needed Per consultants Dc planning Subjective ROS Limited/Unobtainable: No Objective Objective Last 24 Hour Vital Signs Date Time Temp Pulse Resp B/P (MAP) Pulse Ox O2 Delivery O2 Flow Rate FiO2 08/08/18 12:00 98.0 71 18 127/71 (89) 97 08/08/18 09:00 Room Air 08/08/18 08:00 98.2 90 19 125/69 (87) 97 08/08/18 04:43 97.9 98 18 145/89 (107) 98 08/08/18 00:48 98.1 85 18 113/70 (84) 98 08/07/18 22:32 Room Air 08/07/18 19:55 97.7 100 17 125/60 (81) 96 08/07/18 16:00 98.1 72 12 120/61 (80) 95 Intake and Output 08/07/18 08/08/18 19:00 07:00 Intake Total 760 ml 905 ml Balance 760 ml 905 ml Free Water 100 ml 300 ml Tube Feeding 660 ml 605 ml # Bowel Movements 1 Laboratory Tests 08/08/18 05:20: White Blood Count 2.7L, Red Blood Count 2.61L, Hemoglobin 7.9L, Hematocrit 24.4L , Mean Corpuscular Volume 93, Mean Corpuscular Hemoglobin 30.3, Mean Corpuscular Hemoglobin Concent 32.5, Red Cell Distribution Width 16.0H, Platelet Count 80L, Mean Platelet Volume 7.8, Neutrophils (%) (Auto) , Lymphocytes (%) (Auto) , Monocytes (%) (Auto) , Eosinophils (%) (Auto) , Basophils (%) (Auto) , Differential Total Cells Counted 100, Neutrophils % ( Manual) 74, Lymphocytes % (Manual) 15L, Monocytes % (Manual) 8, Eosinophils % ( Manual) 2, Basophils % (Manual) 1, Band Neutrophils 0, Platelet Estimate DecreasedL, Platelet Morphology Normal, Hypochromasia 3+, Anisocytosis 1+, Spherocytes 1+, Prothrombin Time 18.8H, Prothromb Time International Ratio 1.8H , Sodium Level 138, Potassium Level 4.5, Chloride Level 105, Carbon Dioxide Level 31, Anion Gap 3L, Blood Urea Nitrogen 14, Creatinine 0.7, Estimat Glomerular Filtration Rate , Glucose Level 128H, Calcium Level 9.1, Phosphorus Level 3.4, Magnesium Level 1.8, Total Bilirubin 0.3, Aspartate Amino Transf (AST /SGOT) 18, Alanine Aminotransferase (ALT/SGPT) 11L, Alkaline Phosphatase 76, Total Protein 6.3L, Albumin 2.1L, Globulin 4.2, Albumin/Globulin Ratio 0.5L Height (Feet): 5 Height (Inches): 2.00 Weight (Pounds): 116 General Appearance: no apparent distress, lethargic Objective no change Parvez Bergman MD Aug 08, 2018 13:55
[2018-08-08 16:00] VITALS: BP 127/71
[2018-08-08] MEDS ORDERED: Warfarin Sodium 3mg ORAL SCH (17:00)
[2018-08-08 20:00] VITALS: BP 117/70
--- NOTE | 2018-08-08 20:19 | General Progress Note ---
Assessment/Plan Problem List: (1) Dementia with behavioral disturbance ICD Codes: F03.91 - Unspecified dementia with behavioral disturbance SNOMED: 7809230855465 (2) Malnutrition ICD Codes: E46 - Unspecified protein-calorie malnutrition SNOMED: 56619356 (3) Sepsis ICD Codes: A41.9 - Sepsis, unspecified organism SNOMED: 59943293 (4) Dehydration ICD Codes: E86.0 - Dehydration SNOMED: 70355074 (5) UTI (urinary tract infection) ICD Codes: N39.0 - Urinary tract infection, site not specified SNOMED: 70815997 Status: progressing Assessment/Plan dvt ivc filter in am fall risk needs placement back to snf after ivc filter dementia uti improved s/p peg Subjective ROS Limited/Unobtainable: Yes Allergies: Coded Allergies: No Known Allergies (Unverified , 07/26/18) Objective Last 24 Hour Vital Signs Date Time Temp Pulse Resp B/P (MAP) Pulse Ox O2 Delivery O2 Flow Rate FiO2 08/08/18 16:00 98.4 69 18 127/71 (89) 97 08/08/18 12:00 98.0 71 18 127/71 (89) 97 08/08/18 09:00 Room Air 08/08/18 08:00 98.2 90 19 125/69 (87) 97 08/08/18 04:43 97.9 98 18 145/89 (107) 98 08/08/18 00:48 98.1 85 18 113/70 (84) 98 08/07/18 22:32 Room Air Intake and Output 08/07/18 08/08/18 18:59 06:59 Intake Total 760 ml 905 ml Balance 760 ml 905 ml Free Water 100 ml 300 ml Tube Feeding 660 ml 605 ml # Bowel Movements 1 Laboratory Tests 08/08/18 05:20: White Blood Count 2.7L, Red Blood Count 2.61L, Hemoglobin 7.9L, Hematocrit 24.4L , Mean Corpuscular Volume 93, Mean Corpuscular Hemoglobin 30.3, Mean Corpuscular Hemoglobin Concent 32.5, Red Cell Distribution Width 16.0H, Platelet Count 80L, Mean Platelet Volume 7.8, Neutrophils (%) (Auto) , Lymphocytes (%) (Auto) , Monocytes (%) (Auto) , Eosinophils (%) (Auto) , Basophils (%) (Auto) , Differential Total Cells Counted 100, Neutrophils % ( Manual) 74, Lymphocytes % (Manual) 15L, Monocytes % (Manual) 8, Eosinophils % ( Manual) 2, Basophils % (Manual) 1, Band Neutrophils 0, Platelet Estimate DecreasedL, Platelet Morphology Normal, Hypochromasia 3+, Anisocytosis 1+, Spherocytes 1+, Prothrombin Time 18.8H, Prothromb Time International Ratio 1.8H , Sodium Level 138, Potassium Level 4.5, Chloride Level 105, Carbon Dioxide Level 31, Anion Gap 3L, Blood Urea Nitrogen 14, Creatinine 0.7, Estimat Glomerular Filtration Rate , Glucose Level 128H, Calcium Level 9.1, Phosphorus Level 3.4, Magnesium Level 1.8, Total Bilirubin 0.3, Aspartate Amino Transf (AST /SGOT) 18, Alanine Aminotransferase (ALT/SGPT) 11L, Alkaline Phosphatase 76, Total Protein 6.3L, Albumin 2.1L, Globulin 4.2, Albumin/Globulin Ratio 0.5L Height (Feet): 5 Height (Inches): 2.00 Weight (Pounds): 116 General Appearance: confused Cardiovascular: normal rate Respiratory/Chest: lungs clear Abdomen: non tender Yi Asencio MD Aug 08, 2018 20:19
[2018-08-08 21:09] LABS: INR 1.1 (0.9-1.1)
[2018-08-09] VITALS: BP 109/69
[2018-08-09 04:00] VITALS: BP 107/70
[2018-08-09 04:14] LABS: HEMATOCRIT 27.1 % (37.0-47.0); HEMOGLOBIN 8.9 G/DL (12.0-16.0); MEAN CORPUSCULAR VOLUME 92 FL (80-99); PLATELET COUNT 97 K/UL (150-450); RED BLOOD COUNT 2.96 M/UL (4.20-5.40); RED CELL DISTRIBUTION WIDTH 15.4 % (11.6-14.8); WHITE BLOOD COUNT 3.2 K/UL (4.8-10.8)
[2018-08-09 04:22] LABS: ANION GAP 4 mmol/L (5-15); BLOOD UREA NITROGEN 18 mg/dL (7-18); CALCIUM 9.5 MG/DL (8.5-10.1); CARBON DIOXIDE 32 MMOL/L (21-32); CHLORIDE 103 MMOL/L (98-107); CREATININE 0.7 MG/DL (0.55-1.30); POTASSIUM 4.6 MMOL/L (3.5-5.1); SODIUM 139 MMOL/L (136-145)
[2018-08-09] MEDS: NovoLOG Insulin Flexpen SUBQ SCH ×4 (06:37→20:14)
[2018-08-09 08:20] VITALS: BP 132/72
[2018-08-09] MEDS: Aspirin Baby 81mg NG SCH (09:00)
[2018-08-09 12:24] VITALS: BP 112/61
--- NOTE | 2018-08-09 12:37 | Nephrology Progress Note ---
Assessment/Plan Problem List: (1) UTI (urinary tract infection) (2) Dehydration (3) Hypernatremia (4) Hypokalemia (5) Malnutrition Assessment failed swallow test has PEG now Dehydration- Hypernatremia DM OOC Anemia UTI Malnutrition Plan DC IV fluids- Has GT now on feeding K via GT IV iron mag and K supplement as needed Per consultants DC planning Subjective ROS Limited/Unobtainable: No Objective Objective Last 24 Hour Vital Signs Date Time Temp Pulse Resp B/P (MAP) Pulse Ox O2 Delivery O2 Flow Rate FiO2 08/09/18 12:24 97.2 86 16 112/61 (78) 97 08/09/18 09:00 Room Air 08/09/18 08:20 97.3 99 15 132/72 (92) 96 08/09/18 04:00 97.4 95 18 107/70 (82) 95 08/09/18 00:00 98.2 91 18 109/69 (82) 98 08/08/18 21:00 Room Air 08/08/18 20:00 98.3 92 18 117/70 (86) 94 08/08/18 16:00 98.4 69 18 127/71 (89) 97 Intake and Output 08/08/18 08/09/18 19:00 07:00 Intake Total 610 ml Balance 610 ml Free Water 60 ml Tube Feeding 550 ml # Voids 3 3 # Bowel Movements 4 1 Laboratory Tests 08/08/18 20:45: Prothrombin Time 11.8H, Prothromb Time International Ratio 1.1, Activated Partial Thromboplast Time 33 08/09/18 04:05: Prothrombin Time 10.6, Prothromb Time International Ratio 1.0, Activated Partial Thromboplast Time 30, White Blood Count 3.2L, Red Blood Count 2.96L, Hemoglobin 8.9L, Hematocrit 27.1L, Mean Corpuscular Volume 92, Mean Corpuscular Hemoglobin 30.1, Mean Corpuscular Hemoglobin Concent 32.9, Red Cell Distribution Width 15.4H, Platelet Count 97L, Mean Platelet Volume 7.2, Neutrophils (%) (Auto) , Lymphocytes (%) (Auto) , Monocytes (%) (Auto) , Eosinophils (%) (Auto) , Basophils (%) (Auto) , Sodium Level 139, Potassium Level 4.6, Chloride Level 103, Carbon Dioxide Level 32, Anion Gap 4L, Blood Urea Nitrogen 18, Creatinine 0.7, Estimat Glomerular Filtration Rate , Glucose Level 105, Calcium Level 9.5 Height (Feet): 5 Height (Inches): 2.00 Weight (Pounds): 116 General Appearance: no apparent distress Cardiovascular: tachycardia Respiratory/Chest: decreased breath sounds Abdomen: soft Objective no change Parvez Bergman MD Aug 09, 2018 12:37
--- NOTE | 2018-08-09 13:18 | GI Progress Note ---
Assessment/Plan Problems: (1) UTI (urinary tract infection) ICD Codes: N39.0 - Urinary tract infection, site not specified SNOMED: 85352267 (2) Sepsis ICD Codes: A41.9 - Sepsis, unspecified organism SNOMED: 81947274 (3) Dehydration ICD Codes: E86.0 - Dehydration SNOMED: 93390103 (4) Malnutrition ICD Codes: E46 - Unspecified protein-calorie malnutrition SNOMED: 58182576 (5) Dementia with behavioral disturbance ICD Codes: F03.91 - Unspecified dementia with behavioral disturbance SNOMED: 1555104511922 Status: unchanged Status Narrative Discussed with Dr. Argueta. Assessment/Plan abdominal U/S reviewed >> normal liver echogenicity s/p PEG GTFs per RD, tolerating ppi abx zofran prn fu labs dc planning The patient was seen and examined at bedside and all new and available data was reviewed in the patients chart. I agree with the above findings, impression and plan. (Patient seen earlier today. Signature stamp does not reflect patient encounter time.). - Edwardo Argueta MD Subjective Subjective limited Objective Last 24 Hour Vital Signs Date Time Temp Pulse Resp B/P (MAP) Pulse Ox O2 Delivery O2 Flow Rate FiO2 08/09/18 12:24 97.2 86 16 112/61 (78) 97 08/09/18 09:00 Room Air 08/09/18 08:20 97.3 99 15 132/72 (92) 96 08/09/18 04:00 97.4 95 18 107/70 (82) 95 08/09/18 00:00 98.2 91 18 109/69 (82) 98 08/08/18 21:00 Room Air 08/08/18 20:00 98.3 92 18 117/70 (86) 94 08/08/18 16:00 98.4 69 18 127/71 (89) 97 Intake and Output 08/08/18 08/09/18 19:00 07:00 Intake Total 610 ml Balance 610 ml Free Water 60 ml Tube Feeding 550 ml # Voids 3 3 # Bowel Movements 4 1 Laboratory Tests Test 08/08/18 20:45 08/09/18 04:05 Prothrombin Time 11.8 SEC (9.30-11.50) H 10.6 SEC (9.30-11.50) Prothromb Time International Ratio 1.1 (0.9-1.1) 1.0 (0.9-1.1) Activated Partial Thromboplast Time 33 SEC (23-33) 30 SEC (23-33) White Blood Count 3.2 K/UL (4.8-10.8) L Red Blood Count 2.96 M/UL (4.20-5.40) L Hemoglobin 8.9 G/DL (12.0-16.0) L Hematocrit 27.1 % (37.0-47.0) L Mean Corpuscular Volume 92 FL (80-99) Mean Corpuscular Hemoglobin 30.1 PG (27.0-31.0) Mean Corpuscular Hemoglobin Concent 32.9 G/DL (32.0-36.0) Red Cell Distribution Width 15.4 % (11.6-14.8) H Platelet Count 97 K/UL (150-450) L Mean Platelet Volume 7.2 FL (6.5-10.1) Neutrophils (%) (Auto) % (45.0-75.0) Lymphocytes (%) (Auto) % (20.0-45.0) Monocytes (%) (Auto) % (1.0-10.0) Eosinophils (%) (Auto) % (0.0-3.0) Basophils (%) (Auto) % (0.0-2.0) Sodium Level 139 MMOL/L (136-145) Potassium Level 4.6 MMOL/L (3.5-5.1) Chloride Level 103 MMOL/L (98-107) Carbon Dioxide Level 32 MMOL/L (21-32) Anion Gap 4 mmol/L (5-15) L Blood Urea Nitrogen 18 mg/dL (7-18) Creatinine 0.7 MG/DL (0.55-1.30) Estimat Glomerular Filtration Rate mL/min (>60) Glucose Level 105 MG/DL (74-106) Calcium Level 9.5 MG/DL (8.5-10.1) Height (Feet): 5 Height (Inches): 2.00 Weight (Pounds): 116 General Appearance: WD/WN, no apparent distress, alert, thin Cardiovascular: normal rate Respiratory/Chest: normal breath sounds, no respiratory distress Abdominal Exam: normal bowel sounds, non tender, soft, GT site - c/d/i Extremities: non-tender Aidee Powell NP Aug 09, 2018 13:18
[2018-08-09] MEDS ORDERED: Heparin 2000 units/Ns 1000ml INJ PRN (13:38)
[2018-08-09] MEDS ORDERED: Heparin 2000 units/Ns 1000ml 1,000 ML ONE (13:39)
[2018-08-09] MEDS ORDERED: Lidocaine 1% Plain 30 ml INJ PRN (13:45)
--- NOTE | 2018-08-09 14:01 | Infectious Diseases Prog Note ---
Assessment/Plan Assessment/Plan A; Sepsis/ SIRS treated Positive blood culturelikelly contamination UTI with E.coli treated DVT of left leg, ? PE DM type 2 Anemia Thrombocytopenia Leukopenia Dysphagia s/p GT placement P; Observe off antibiotic Subjective ROS Limited/Unobtainable: Yes Allergies: Coded Allergies: No Known Allergies (Unverified , 07/26/18) Objective Vital Signs Last 24 Hour Vital Signs Date Time Temp Pulse Resp B/P (MAP) Pulse Ox O2 Delivery O2 Flow Rate FiO2 08/09/18 12:24 97.2 86 16 112/61 (78) 97 08/09/18 09:00 Room Air 08/09/18 08:20 97.3 99 15 132/72 (92) 96 08/09/18 04:00 97.4 95 18 107/70 (82) 95 08/09/18 00:00 98.2 91 18 109/69 (82) 98 08/08/18 21:00 Room Air 08/08/18 20:00 98.3 92 18 117/70 (86) 94 08/08/18 16:00 98.4 69 18 127/71 (89) 97 Height (Feet): 5 Height (Inches): 2.00 Weight (Pounds): 116 General Appearance: no acute distress HEENT: mucous membranes moist Respiratory/Chest: lungs clear Cardiovascular: normal rate Abdomen: soft, non tender, other - GT feeding Extremities: no edema Neurologic/Psychiatric: disoriented Microbiology Date/Time Source Procedure Growth Status 08/08/18 00:41 Stool Clostridium difficile Toxin Assay - Final Complete Laboratory Tests Test 08/08/18 20:45 08/09/18 04:05 Prothrombin Time 11.8 SEC (9.30-11.50) H 10.6 SEC (9.30-11.50) Prothromb Time International Ratio 1.1 (0.9-1.1) 1.0 (0.9-1.1) Activated Partial Thromboplast Time 33 SEC (23-33) 30 SEC (23-33) White Blood Count 3.2 K/UL (4.8-10.8) L Red Blood Count 2.96 M/UL (4.20-5.40) L Hemoglobin 8.9 G/DL (12.0-16.0) L Hematocrit 27.1 % (37.0-47.0) L Mean Corpuscular Volume 92 FL (80-99) Mean Corpuscular Hemoglobin 30.1 PG (27.0-31.0) Mean Corpuscular Hemoglobin Concent 32.9 G/DL (32.0-36.0) Red Cell Distribution Width 15.4 % (11.6-14.8) H Platelet Count 97 K/UL (150-450) L Mean Platelet Volume 7.2 FL (6.5-10.1) Neutrophils (%) (Auto) % (45.0-75.0) Lymphocytes (%) (Auto) % (20.0-45.0) Monocytes (%) (Auto) % (1.0-10.0) Eosinophils (%) (Auto) % (0.0-3.0) Basophils (%) (Auto) % (0.0-2.0) Sodium Level 139 MMOL/L (136-145) Potassium Level 4.6 MMOL/L (3.5-5.1) Chloride Level 103 MMOL/L (98-107) Carbon Dioxide Level 32 MMOL/L (21-32) Anion Gap 4 mmol/L (5-15) L Blood Urea Nitrogen 18 mg/dL (7-18) Creatinine 0.7 MG/DL (0.55-1.30) Estimat Glomerular Filtration Rate mL/min (>60) Glucose Level 105 MG/DL (74-106) Calcium Level 9.5 MG/DL (8.5-10.1) Current Medications Medications (Trade) Dose Ordered Sig/Laure Route PRN Reason Start Time Stop Time Status Last Admin Dose Admin Acetaminophen (Tylenol) 650 mg Q4H PRN ORAL Fever/Headache/Mild Pain 08/02/18 13:21 08/25/18 13:20 Aspirin (ASA) 81 mg DAILY NG 08/03/18 09:00 08/30/18 08:59 08/08/18 08:44 Dextrose (Dextrose 50%) 25 ml Q30M PRN IV Hypoglycemia 08/02/18 13:45 08/25/18 15:14 Dextrose (Dextrose 50%) 50 ml Q30M PRN IV Hypoglycemia 08/02/18 13:45 08/25/18 15:14 Famotidine (Pepcid) 20 mg BID ORAL 08/02/18 18:00 08/25/18 17:59 08/08/18 18:29 Haloperidol Lactate (Haldol) 5 mg Q6H PRN IM Agitation 08/03/18 23:30 09/02/18 23:29 Heparin Sodium/ Sodium Chloride (Heparin 2000 units/Ns 1000ml premix) 2,000 unit ONCE PRN INJ PICC 08/09/18 13:38 08/10/18 23:59 Insulin Aspart (NovoLOG) BEFORE MEALS AND HS SUBQ 08/02/18 16:30 08/25/18 16:29 08/09/18 06:37 Lidocaine HCl (Xylocaine 1% 30ml) 30 ml ONCE PRN INJ PICC 08/09/18 13:45 08/10/18 23:59 Loperamide HCl (Imodium) 2 mg Q4H PRN GT Diarrhea 08/08/18 10:30 09/07/18 10:29 08/08/18 18:29 Lorazepam (Ativan 2mg/ml 1ml) 1 mg EVERY 4 HOURS PRN IM anxiety 08/03/18 23:30 08/10/18 23:29 08/03/18 23:55 Potassium Chloride (K-Dur) 40 meq BID GT 08/07/18 18:00 09/04/18 08:59 08/08/18 18:29 Quetiapine Fumarate (SEROquel) 12.5 mg Q4H PRN ORAL agitation 08/02/18 15:15 08/26/18 11:14 Quetiapine Fumarate (SEROquel) 25 mg Q12HR GT 08/04/18 21:00 08/26/18 10:39 08/08/18 22:34 Shimon Card MD Aug 09, 2018 14:01
--- NOTE | 2018-08-09 14:42 | General Progress Note ---
Assessment/Plan Assessment/Plan # DVT of the left leg -- superficial femoral vein which is a deep vein, new onset, has not had these symptoms before. Lower hgb and plts --> discussed with renal, have stopped anticoagulation given low h/h, low plts --> Given low plts and anemia, will order ivc Filter --> IVF FILTER ORDERED PLACED, RETRIEVABLE TYPE --> appreciate Dr. Parekh and Mariam recs # Pancytopenia, this is her first time here at [facility], do not have baseline, appears new baseline 50-70k, several causes possible including viral, medication or intrabone marrow related. --> Cont to monitor plt count for improvement --> US abd: Mild left hydronephrosis. Possible left renal calyceal calculi. Negative for gallstones or dilated ducts Debris noted within the bladder --> Hep panel and HIV are both negative --> given extremely poor condition do not recommend a bone marrow biopsy, have discussed with family 08/01 with --> Current plt count 64k # Anemia of chronic disease. Multifactorial. Since admission Hgb has consistently remained between 8-9. --> Cont to monitor for stability --> Hgb goal above 7. Transfuse prn. --> IV iron completed # Dehydration. IVF has been administered --> improved # DM OOC --> A1C goal less than 7 --> Cont on insulin # UTI. --> ID is following. Appreciate recs. --> Pt on IV abx. --> Cultures - gram negative bacillus # PEG placement 08/04. Greatly appreciate consultation! Subjective Constitutional: Denies: no symptoms, chills, diaphoresis, fever, malaise, weakness, other HEENT: Denies: no symptoms, eye pain, blurred vision, tearing, double vision, ear pain, ear discharge, nose pain, nose congestion, throat pain, throat swelling, mouth pain, mouth swelling, other Respiratory: Denies: no symptoms, cough, orthopnea, shortness of breath, SOB with excertion, SOB at rest, sputum, stridor, wheezing, other Gastrointestinal/Abdominal: Denies: no symptoms, abdomen distended, abdominal pain, black stools, tarry stools, blood in stool, constipated, diarrhea, difficulty swallowing, nausea, poor appetite, poor fluid intake, rectal bleeding , vomiting, other Genitourinary: Denies: no symptoms, burning, discharge, frequency, flank pain, hematuria, incontinence, pain, urgency, other Neurologic/Psychiatric: Denies: no symptoms, anxiety, depressed, emotional problems, headache, numbness, paresthesia, pre-existing deficit, seizure, tingling, tremors, weakness, other Endocrine: Denies: no symptoms, excessive sweating, flushing, intolerance to cold, intolerance to heat, increased hunger, increased thirst, increased urine, unexplained weight gain, unexplained weight loss, other Hematologic/Lymphatic: Reports: no symptoms; Denies: anemia, easy bleeding, easy bruising, other Allergies: Coded Allergies: No Known Allergies (Unverified , 07/26/18) Subjective No acute events. Afebrile. awaiting ivc filter Objective Last 24 Hour Vital Signs Date Time Temp Pulse Resp B/P (MAP) Pulse Ox O2 Delivery O2 Flow Rate FiO2 08/09/18 12:24 97.2 86 16 112/61 (78) 97 08/09/18 09:00 Room Air 08/09/18 08:20 97.3 99 15 132/72 (92) 96 08/09/18 04:00 97.4 95 18 107/70 (82) 95 08/09/18 00:00 98.2 91 18 109/69 (82) 98 08/08/18 21:00 Room Air 08/08/18 20:00 98.3 92 18 117/70 (86) 94 08/08/18 16:00 98.4 69 18 127/71 (89) 97 Intake and Output 08/08/18 08/09/18 19:00 07:00 Intake Total 610 ml Balance 610 ml Free Water 60 ml Tube Feeding 550 ml # Voids 3 3 # Bowel Movements 4 1 Laboratory Tests 08/08/18 20:45: Prothrombin Time 11.8H, Prothromb Time International Ratio 1.1, Activated Partial Thromboplast Time 33 08/09/18 04:05: Prothrombin Time 10.6, Prothromb Time International Ratio 1.0, Activated Partial Thromboplast Time 30, White Blood Count 3.2L, Red Blood Count 2.96L, Hemoglobin 8.9L, Hematocrit 27.1L, Mean Corpuscular Volume 92, Mean Corpuscular Hemoglobin 30.1, Mean Corpuscular Hemoglobin Concent 32.9, Red Cell Distribution Width 15.4H, Platelet Count 97L, Mean Platelet Volume 7.2, Neutrophils (%) (Auto) , Lymphocytes (%) (Auto) , Monocytes (%) (Auto) , Eosinophils (%) (Auto) , Basophils (%) (Auto) , Sodium Level 139, Potassium Level 4.6, Chloride Level 103, Carbon Dioxide Level 32, Anion Gap 4L, Blood Urea Nitrogen 18, Creatinine 0.7, Estimat Glomerular Filtration Rate , Glucose Level 105, Calcium Level 9.5 Height (Feet): 5 Height (Inches): 2.00 Weight (Pounds): 116 EENT: normal ENT inspection Neck: normal alignment Cardiovascular: regular rhythm Respiratory/Chest: chest wall non-tender Abdomen: soft Extremities: non-tender Neurologic: alert Skin: warm/dry Objective peg++ Dewayne Gayle MD Aug 09, 2018 14:42
--- NOTE | 2018-08-09 15:16 | Pulmonology Progress Note ---
Assessment/Plan Assessment/Plan ASSESSMENT: The patient is a 78-year-old female, [facility] resident with a presumed history of dementia, hypertension, and hyperlipidemia, presenting with a systemic inflammatory response syndrome, gram-negative bacillus UTI, and acute left superficial vein DVT with likely pulmonary embolism as well. PROBLEM LIST: 1. Extensive left superficial vein DVT (this is a deep vein). 2. Likely pulmonary embolism as well. 3. Hypoxemia. 4. Gram-negative bacillus UTI. 5. GPC bacteremia 6. Hypernatremia and hypokalemia. 7. Protein-calorie malnutrition 8. Likely underlying dementia versus encephalopathy. 9. Hypertension. 10. Hyperlipidemia. 11. Thrombocytopenia. 12. Normocytic anemia. 13. S/P PEG TREATMENT PLAN: -Off AC -Awaiting IVCF -Start Hep SQ for DVT Px -If within GOC anemia should be worked up further, EGD done already, consider COLO, capsule, BMBx. DEFER TO PMD, HEME-ONC and GI -Monitor volumes & renal function -Aspiration precautions -TF's as tolerated -Full Code, continue to discuss goals of care. Subjective Allergies: Coded Allergies: No Known Allergies (Unverified , 07/26/18) Subjective Off AC awaiting IVCF AFVSS, stable on RA No cough, no SOB, no F/C Objective Last 24 Hour Vital Signs Date Time Temp Pulse Resp B/P (MAP) Pulse Ox O2 Delivery O2 Flow Rate FiO2 08/09/18 12:24 97.2 86 16 112/61 (78) 97 08/09/18 09:00 Room Air 08/09/18 08:20 97.3 99 15 132/72 (92) 96 08/09/18 04:00 97.4 95 18 107/70 (82) 95 08/09/18 00:00 98.2 91 18 109/69 (82) 98 08/08/18 21:00 Room Air 08/08/18 20:00 98.3 92 18 117/70 (86) 94 08/08/18 16:00 98.4 69 18 127/71 (89) 97 Intake and Output 08/08/18 08/09/18 19:00 07:00 Intake Total 610 ml Balance 610 ml Free Water 60 ml Tube Feeding 550 ml # Voids 3 3 # Bowel Movements 4 1 General Appearance: cachetic HEENT: normocephalic, atraumatic, anicteric, mucous membranes moist Respiratory/Chest: chest wall non-tender, lungs clear, normal breath sounds, no respiratory distress, no accessory muscle use Cardiovascular: normal peripheral pulses, normal rate, regular rhythm Abdomen: normal bowel sounds, soft, non tender, no organomegaly, non distended , no mass, other - GT Extremities: no cyanosis, no clubbing, no edema Microbiology Date/Time Source Procedure Growth Status 08/08/18 00:41 Stool Clostridium difficile Toxin Assay - Final Complete Laboratory Tests 08/08/18 20:45: Prothrombin Time 11.8H, Prothromb Time International Ratio 1.1, Activated Partial Thromboplast Time 33 08/09/18 04:05: Prothrombin Time 10.6, Prothromb Time International Ratio 1.0, Activated Partial Thromboplast Time 30, White Blood Count 3.2L, Red Blood Count 2.96L, Hemoglobin 8.9L, Hematocrit 27.1L, Mean Corpuscular Volume 92, Mean Corpuscular Hemoglobin 30.1, Mean Corpuscular Hemoglobin Concent 32.9, Red Cell Distribution Width 15.4H, Platelet Count 97L, Mean Platelet Volume 7.2, Neutrophils (%) (Auto) , Lymphocytes (%) (Auto) , Monocytes (%) (Auto) , Eosinophils (%) (Auto) , Basophils (%) (Auto) , Sodium Level 139, Potassium Level 4.6, Chloride Level 103, Carbon Dioxide Level 32, Anion Gap 4L, Blood Urea Nitrogen 18, Creatinine 0.7, Estimat Glomerular Filtration Rate , Glucose Level 105, Calcium Level 9.5 Current Medications Medications (Trade) Dose Ordered Sig/Laure Route PRN Reason Start Time Stop Time Status Last Admin Dose Admin Acetaminophen (Tylenol) 650 mg Q4H PRN ORAL Fever/Headache/Mild Pain 08/02/18 13:21 08/25/18 13:20 Aspirin (ASA) 81 mg DAILY NG 08/03/18 09:00 08/30/18 08:59 08/08/18 08:44 Dextrose (Dextrose 50%) 25 ml Q30M PRN IV Hypoglycemia 08/02/18 13:45 08/25/18 15:14 Dextrose (Dextrose 50%) 50 ml Q30M PRN IV Hypoglycemia 08/02/18 13:45 08/25/18 15:14 Famotidine (Pepcid) 20 mg BID ORAL 08/02/18 18:00 08/25/18 17:59 08/08/18 18:29 Haloperidol Lactate (Haldol) 5 mg Q6H PRN IM Agitation 08/03/18 23:30 09/02/18 23:29 Heparin Sodium/ Sodium Chloride (Heparin 2000 units/Ns 1000ml premix) 2,000 unit ONCE PRN INJ PICC 08/09/18 13:38 08/10/18 23:59 Insulin Aspart (NovoLOG) BEFORE MEALS AND HS SUBQ 08/02/18 16:30 08/25/18 16:29 08/09/18 06:37 Lidocaine HCl (Xylocaine 1% 30ml) 30 ml ONCE PRN INJ PICC 08/09/18 13:45 08/10/18 23:59 Loperamide HCl (Imodium) 2 mg Q4H PRN GT Diarrhea 08/08/18 10:30 09/07/18 10:29 08/08/18 18:29 Lorazepam (Ativan 2mg/ml 1ml) 1 mg EVERY 4 HOURS PRN IM anxiety 08/03/18 23:30 08/10/18 23:29 08/03/18 23:55 Potassium Chloride (K-Dur) 40 meq BID GT 08/07/18 18:00 09/04/18 08:59 08/08/18 18:29 Quetiapine Fumarate (SEROquel) 12.5 mg Q4H PRN ORAL agitation 08/02/18 15:15 08/26/18 11:14 Quetiapine Fumarate (SEROquel) 25 mg Q12HR GT 08/04/18 21:00 08/26/18 10:39 08/08/18 22:34 Foreign Parekh MD Aug 09, 2018 15:16
[2018-08-09 15:58] VITALS: BP 116/78
[2018-08-09 20:00] VITALS: BP 111/65
--- NOTE | 2018-08-09 20:56 | General Progress Note ---
Assessment/Plan Problem List: (1) Dementia with behavioral disturbance ICD Codes: F03.91 - Unspecified dementia with behavioral disturbance SNOMED: 1865974503212 (2) Malnutrition ICD Codes: E46 - Unspecified protein-calorie malnutrition SNOMED: 59599859 (3) Sepsis ICD Codes: A41.9 - Sepsis, unspecified organism SNOMED: 41006904 (4) Dehydration ICD Codes: E86.0 - Dehydration SNOMED: 73417111 (5) UTI (urinary tract infection) ICD Codes: N39.0 - Urinary tract infection, site not specified SNOMED: 86222621 Status: progressing Assessment/Plan DVT MONITER FOR BLEEDING back to snf after ivc filter dementia uti improved s/p peg Subjective ROS Limited/Unobtainable: Yes Allergies: Coded Allergies: No Known Allergies (Unverified , 07/26/18) Objective Last 24 Hour Vital Signs Date Time Temp Pulse Resp B/P (MAP) Pulse Ox O2 Delivery O2 Flow Rate FiO2 08/09/18 20:00 97.8 83 18 111/65 (80) 100 08/09/18 15:58 97.3 88 18 116/78 (91) 97 08/09/18 12:24 97.2 86 16 112/61 (78) 97 08/09/18 09:00 Room Air 08/09/18 08:20 97.3 99 15 132/72 (92) 96 08/09/18 04:00 97.4 95 18 107/70 (82) 95 08/09/18 00:00 98.2 91 18 109/69 (82) 98 08/08/18 21:00 Room Air Intake and Output 08/08/18 08/09/18 18:59 06:59 Intake Total 665 ml Balance 665 ml Free Water 60 ml Tube Feeding 605 ml # Voids 3 3 # Bowel Movements 4 1 Laboratory Tests 08/09/18 04:05: White Blood Count 3.2L, Red Blood Count 2.96L, Hemoglobin 8.9L, Hematocrit 27.1L , Mean Corpuscular Volume 92, Mean Corpuscular Hemoglobin 30.1, Mean Corpuscular Hemoglobin Concent 32.9, Red Cell Distribution Width 15.4H, Platelet Count 97L, Mean Platelet Volume 7.2, Neutrophils (%) (Auto) , Lymphocytes (%) (Auto) , Monocytes (%) (Auto) , Eosinophils (%) (Auto) , Basophils (%) (Auto) , Prothrombin Time 10.6, Prothromb Time International Ratio 1.0, Activated Partial Thromboplast Time 30, Sodium Level 139, Potassium Level 4.6, Chloride Level 103, Carbon Dioxide Level 32, Anion Gap 4L, Blood Urea Nitrogen 18, Creatinine 0.7, Estimat Glomerular Filtration Rate , Glucose Level 105, Calcium Level 9.5 Height (Feet): 5 Height (Inches): 2.00 Weight (Pounds): 116 General Appearance: confused Neck: supple Cardiovascular: normal rate Respiratory/Chest: lungs clear Abdomen: soft Yi Asencio MD Aug 09, 2018 20:56
[2018-08-09] MEDS: Heparin 5000 units/ml inj SUBQ SCH (21:00)
--- NOTE | 2018-08-09 23:22 | General Progress Note ---
Assessment/Plan Problem List: (1) Dementia with behavioral disturbance ICD Codes: F03.91 - Unspecified dementia with behavioral disturbance SNOMED: 2106046194208 (2) Encephalopathy due to metabolic factor or toxin SNOMED: 200723516 Assessment/Plan 1. 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 2. Dementia. PLAN: 1. We will continue the Seroquel. 2. Provide reality orientation and supportive therapy. 3. Bilateral soft restraint. 4. the pt s son should sign the consent Subjective Neurologic/Psychiatric: Reports: anxiety, depressed, emotional problems Allergies: Coded Allergies: No Known Allergies (Unverified , 07/26/18) Subjective the pt is confused agitated at times Objective Last 24 Hour Vital Signs Date Time Temp Pulse Resp B/P (MAP) Pulse Ox O2 Delivery O2 Flow Rate FiO2 08/09/18 21:00 Room Air 08/09/18 20:00 97.8 83 18 111/65 (80) 100 08/09/18 15:58 97.3 88 18 116/78 (91) 97 08/09/18 12:24 97.2 86 16 112/61 (78) 97 08/09/18 09:00 Room Air 08/09/18 08:20 97.3 99 15 132/72 (92) 96 08/09/18 04:00 97.4 95 18 107/70 (82) 95 08/09/18 00:00 98.2 91 18 109/69 (82) 98 Intake and Output 08/08/18 08/09/18 18:59 06:59 Intake Total 665 ml Balance 665 ml Free Water 60 ml Tube Feeding 605 ml # Voids 3 3 # Bowel Movements 4 1 Laboratory Tests 08/09/18 04:05: White Blood Count 3.2L, Red Blood Count 2.96L, Hemoglobin 8.9L, Hematocrit 27.1L , Mean Corpuscular Volume 92, Mean Corpuscular Hemoglobin 30.1, Mean Corpuscular Hemoglobin Concent 32.9, Red Cell Distribution Width 15.4H, Platelet Count 97L, Mean Platelet Volume 7.2, Neutrophils (%) (Auto) , Lymphocytes (%) (Auto) , Monocytes (%) (Auto) , Eosinophils (%) (Auto) , Basophils (%) (Auto) , Prothrombin Time 10.6, Prothromb Time International Ratio 1.0, Activated Partial Thromboplast Time 30, Sodium Level 139, Potassium Level 4.6, Chloride Level 103, Carbon Dioxide Level 32, Anion Gap 4L, Blood Urea Nitrogen 18, Creatinine 0.7, Estimat Glomerular Filtration Rate , Glucose Level 105, Calcium Level 9.5 Height (Feet): 5 Height (Inches): 2.00 Weight (Pounds): 116 Kimmy Chavez MD Aug 09, 2018 23:22
[2018-08-10] VITALS (12 sets, daily range): BP systolic 115–168; BP diastolic 59–87
[2018-08-10] MEDS: NovoLOG Insulin Flexpen SUBQ SCH ×3 (06:21→17:07)
--- NOTE | 2018-08-10 06:21 | General Progress Note ---
Assessment/Plan Assessment/Plan # DVT of the left leg -- superficial femoral vein which is a deep vein, new onset, has not had these symptoms before. Lower hgb and plts --> discussed with renal, have stopped anticoagulation given low h/h, low plts --> Given low plts and anemia, will order ivc Filter --> IVF FILTER ORDERED PLACED, RETRIEVABLE TYPE --> appreciate Dr. Parekh and Mariam recs # Pancytopenia, this is her first time here at [place], do not have baseline, appears new baseline 50-70k, several causes possible including viral, medication or intrabone marrow related. --> Cont to monitor plt count for improvement --> US abd: Mild left hydronephrosis. Possible left renal calyceal calculi. Negative for gallstones or dilated ducts Debris noted within the bladder --> Hep panel and HIV are both negative --> given extremely poor condition do not recommend a bone marrow biopsy, have discussed with family 08/01 with --> transfuse if plt <20k # Anemia of chronic disease. Multifactorial. Since admission Hgb has consistently remained between 8-9. --> Cont to monitor for stability --> Hgb goal above 7. Transfuse prn. --> IV iron completed # Dehydration. IVF has been administered --> improved # DM OOC --> A1C goal <7 --> Cont on insulin # UTI. --> ID is following. Appreciate recs. --> Pt on IV abx. --> Cultures - gram negative bacillus # PEG placement 08/04. Greatly appreciate consultation! Subjective Constitutional: Reports: no symptoms HEENT: Reports: no symptoms Cardiovascular: Reports: no symptoms Respiratory: Reports: no symptoms Gastrointestinal/Abdominal: Reports: no symptoms Genitourinary: Reports: no symptoms Neurologic/Psychiatric: Reports: no symptoms Endocrine: Reports: no symptoms Hematologic/Lymphatic: Reports: anemia Allergies: Coded Allergies: No Known Allergies (Unverified , 07/26/18) Subjective No acute events. Afebrile. awaiting ivc filter Objective Last 24 Hour Vital Signs Date Time Temp Pulse Resp B/P (MAP) Pulse Ox O2 Delivery O2 Flow Rate FiO2 08/10/18 04:00 97.8 75 16 115/61 (79) 97 08/10/18 00:00 97.9 78 18 128/70 (89) 97 08/09/18 21:00 Room Air 08/09/18 20:00 97.8 83 18 111/65 (80) 100 08/09/18 15:58 97.3 88 18 116/78 (91) 97 08/09/18 12:24 97.2 86 16 112/61 (78) 97 08/09/18 09:00 Room Air 08/09/18 08:20 97.3 99 15 132/72 (92) 96 Intake and Output 08/09/18 08/10/18 19:00 07:00 Intake Total 395 ml 320 ml Balance 395 ml 320 ml Free Water 120 ml 100 ml Tube Feeding 275 ml 220 ml # Voids 3 3 # Bowel Movements 2 1 Height (Feet): 5 Height (Inches): 2.00 Weight (Pounds): 107 General Appearance: no apparent distress EENT: TMs normal Neck: normal alignment Cardiovascular: regular rhythm Respiratory/Chest: normal breath sounds Abdomen: non tender, other - ++ peg Extremities: normal range of motion Edema: 1+ Leg (L), 1+ Leg (R) Edema: mild edema Neurologic: alert Objective peg++ Dewayne Gayle MD Aug 10, 2018 06:21
[2018-08-10 07:15] LABS: ANION GAP 3 mmol/L (5-15); BLOOD UREA NITROGEN 17 mg/dL (7-18); CALCIUM 9.8 MG/DL (8.5-10.1); CARBON DIOXIDE 33 MMOL/L (21-32); CHLORIDE 103 MMOL/L (98-107); CREATININE 0.8 MG/DL (0.55-1.30); POTASSIUM 4.2 MMOL/L (3.5-5.1); SODIUM 139 MMOL/L (136-145)
[2018-08-10 07:30] LABS: BASOPHILS % (AUTO) 0.7 % (0.0-2.0); EOSINOPHILS % (AUTO) 2.1 % (0.0-3.0); HEMATOCRIT 29.1 % (37.0-47.0); HEMOGLOBIN 9.6 G/DL (12.0-16.0); LYMPHOCYTES % (AUTO) 20.8 % (20.0-45.0); MEAN CORPUSCULAR VOLUME 93 FL (80-99); MONOCYTES % (AUTO) 6.5 % (1.0-10.0); PLATELET COUNT 113 K/UL (150-450); RED BLOOD COUNT 3.13 M/UL (4.20-5.40); RED CELL DISTRIBUTION WIDTH 16.1 % (11.6-14.8); WHITE BLOOD COUNT 3.6 K/UL (4.8-10.8)
[2018-08-10] MEDS: Aspirin Baby 81mg NG SCH (09:00)
[2018-08-10] MEDS: Heparin 5000 units/ml inj SUBQ SCH (09:00)
--- NOTE | 2018-08-10 10:35 | GI Progress Note ---
Assessment/Plan Problems: (1) UTI (urinary tract infection) ICD Codes: N39.0 - Urinary tract infection, site not specified SNOMED: 80417273 (2) Sepsis ICD Codes: A41.9 - Sepsis, unspecified organism SNOMED: 99145202 (3) Dehydration ICD Codes: E86.0 - Dehydration SNOMED: 85637168 (4) Malnutrition ICD Codes: E46 - Unspecified protein-calorie malnutrition SNOMED: 61169770 (5) Dementia with behavioral disturbance ICD Codes: F03.91 - Unspecified dementia with behavioral disturbance SNOMED: 1359492624673 Status: stable Status Narrative Discussed with Dr. Argueta. Assessment/Plan abdominal U/S reviewed >> normal liver echogenicity s/p PEG GTFs per RD, tolerating ppi abx zofran prn fu labs dc planning The patient was seen and examined at bedside and all new and available data was reviewed in the patients chart. I agree with the above findings, impression and plan. (Patient seen earlier today. Signature stamp does not reflect patient encounter time.). - Edwardo Argueta MD Subjective Subjective limited Objective Last 24 Hour Vital Signs Date Time Temp Pulse Resp B/P (MAP) Pulse Ox O2 Delivery O2 Flow Rate FiO2 08/10/18 09:00 Room Air 08/10/18 08:00 97.0 74 14 140/63 (88) 98 08/10/18 04:00 97.8 75 16 115/61 (79) 97 08/10/18 00:00 97.9 78 18 128/70 (89) 97 08/09/18 21:00 Room Air 08/09/18 20:00 97.8 83 18 111/65 (80) 100 08/09/18 15:58 97.3 88 18 116/78 (91) 97 08/09/18 12:24 97.2 86 16 112/61 (78) 97 Intake and Output 08/09/18 08/10/18 19:00 07:00 Intake Total 395 ml 320 ml Balance 395 ml 320 ml Free Water 120 ml 100 ml Tube Feeding 275 ml 220 ml # Voids 3 3 # Bowel Movements 2 1 Laboratory Tests Test 08/10/18 05:45 White Blood Count 3.6 K/UL (4.8-10.8) L Red Blood Count 3.13 M/UL (4.20-5.40) L Hemoglobin 9.6 G/DL (12.0-16.0) L Hematocrit 29.1 % (37.0-47.0) L Mean Corpuscular Volume 93 FL (80-99) Mean Corpuscular Hemoglobin 30.7 PG (27.0-31.0) Mean Corpuscular Hemoglobin Concent 33.1 G/DL (32.0-36.0) Red Cell Distribution Width 16.1 % (11.6-14.8) H Platelet Count 113 K/UL (150-450) L Mean Platelet Volume 8.4 FL (6.5-10.1) Neutrophils (%) (Auto) 70.0 % (45.0-75.0) Lymphocytes (%) (Auto) 20.8 % (20.0-45.0) Monocytes (%) (Auto) 6.5 % (1.0-10.0) Eosinophils (%) (Auto) 2.1 % (0.0-3.0) Basophils (%) (Auto) 0.7 % (0.0-2.0) Prothrombin Time 10.3 SEC (9.30-11.50) Prothromb Time International Ratio 1.0 (0.9-1.1) Sodium Level 139 MMOL/L (136-145) Potassium Level 4.2 MMOL/L (3.5-5.1) Chloride Level 103 MMOL/L (98-107) Carbon Dioxide Level 33 MMOL/L (21-32) H Anion Gap 3 mmol/L (5-15) L Blood Urea Nitrogen 17 mg/dL (7-18) Creatinine 0.8 MG/DL (0.55-1.30) Estimat Glomerular Filtration Rate mL/min (>60) Glucose Level 109 MG/DL (74-106) H Calcium Level 9.8 MG/DL (8.5-10.1) Height (Feet): 5 Height (Inches): 2.00 Weight (Pounds): 107 General Appearance: WD/WN, no apparent distress, alert Cardiovascular: normal rate Respiratory/Chest: normal breath sounds, no respiratory distress Abdominal Exam: normal bowel sounds, non tender, soft, GT site - c/d/i Extremities: normal range of motion, non-tender Aidee Powell [employer] Aug 10, 2018 10:35
--- NOTE | 2018-08-10 12:24 | Nephrology Progress Note ---
Assessment/Plan Problem List: (1) UTI (urinary tract infection) (2) Dehydration (3) Hypernatremia (4) Hypokalemia (5) Malnutrition Assessment failed swallow test has PEG now Dehydration- Hypernatremia DM OOC Anemia UTI Malnutrition Plan DC IV fluids- Has GT now on feeding K via GT IV iron mag and K supplement as needed Per consultants DC planning Subjective ROS Limited/Unobtainable: No Objective Objective Last 24 Hour Vital Signs Date Time Temp Pulse Resp B/P (MAP) Pulse Ox O2 Delivery O2 Flow Rate FiO2 08/10/18 09:00 Room Air 08/10/18 08:00 97.0 74 14 140/63 (88) 98 08/10/18 04:00 97.8 75 16 115/61 (79) 97 08/10/18 00:00 97.9 78 18 128/70 (89) 97 08/09/18 21:00 Room Air 08/09/18 20:00 97.8 83 18 111/65 (80) 100 08/09/18 15:58 97.3 88 18 116/78 (91) 97 Intake and Output 08/09/18 08/10/18 19:00 07:00 Intake Total 395 ml 320 ml Balance 395 ml 320 ml Free Water 120 ml 100 ml Tube Feeding 275 ml 220 ml # Voids 3 3 # Bowel Movements 2 1 Laboratory Tests 08/10/18 05:45: White Blood Count 3.6L, Red Blood Count 3.13L, Hemoglobin 9.6L, Hematocrit 29.1L , Mean Corpuscular Volume 93, Mean Corpuscular Hemoglobin 30.7, Mean Corpuscular Hemoglobin Concent 33.1, Red Cell Distribution Width 16.1H, Platelet Count 113L, Mean Platelet Volume 8.4, Neutrophils (%) (Auto) 70.0, Lymphocytes (%) (Auto) 20.8, Monocytes (%) (Auto) 6.5, Eosinophils (%) (Auto) 2.1, Basophils (%) (Auto) 0.7, Prothrombin Time 10.3, Prothromb Time International Ratio 1.0, Sodium Level 139, Potassium Level 4.2, Chloride Level 103, Carbon Dioxide Level 33H, Anion Gap 3L, Blood Urea Nitrogen 17, Creatinine 0.8, Estimat Glomerular Filtration Rate , Glucose Level 109H, Calcium Level 9.8 Height (Feet): 5 Height (Inches): 2.00 Weight (Pounds): 107 General Appearance: no apparent distress Objective no change Parvez Bergman MD Aug 10, 2018 12:24
--- NOTE | 2018-08-10 13:20 | Pulmonology Progress Note ---
Assessment/Plan Assessment/Plan ASSESSMENT: The patient is a 78-year-old female, halfway resident with a presumed history of dementia, hypertension, and hyperlipidemia, presenting with a systemic inflammatory response syndrome, gram-negative bacillus UTI, and acute left superficial vein DVT with likely pulmonary embolism as well. PROBLEM LIST: 1. Extensive left superficial vein DVT (this is a deep vein). 2. Likely pulmonary embolism as well. 3. Hypoxemia. 4. Gram-negative bacillus UTI. 5. GPC bacteremia 6. Hypernatremia and hypokalemia. 7. Protein-calorie malnutrition 8. Likely underlying dementia versus encephalopathy. 9. Hypertension. 10. Hyperlipidemia. 11. Thrombocytopenia. 12. Normocytic anemia. 13. S/P PEG TREATMENT PLAN: -Off AC -Awaiting IVCF -Continue Hep SQ for DVT Px -If within GOC anemia should be worked up further, EGD done already, consider COLO, capsule, BMBx. DEFER TO PMD, HEME-ONC and GI -Monitor volumes & renal function -Aspiration precautions -TF's as tolerated -Full Code, continue to discuss goals of care. Subjective Allergies: Coded Allergies: No Known Allergies (Unverified , 07/26/18) Subjective KALPESH AFVSS, stable on RA No cough, no SOB, no F/C Objective Last 24 Hour Vital Signs Date Time Temp Pulse Resp B/P (MAP) Pulse Ox O2 Delivery O2 Flow Rate FiO2 08/10/18 12:00 97.5 74 16 122/59 (80) 96 08/10/18 09:00 Room Air 08/10/18 08:00 97.0 74 14 140/63 (88) 98 08/10/18 04:00 97.8 75 16 115/61 (79) 97 08/10/18 00:00 97.9 78 18 128/70 (89) 97 08/09/18 21:00 Room Air 08/09/18 20:00 97.8 83 18 111/65 (80) 100 08/09/18 15:58 97.3 88 18 116/78 (91) 97 Intake and Output 08/09/18 08/10/18 19:00 07:00 Intake Total 395 ml 320 ml Balance 395 ml 320 ml Free Water 120 ml 100 ml Tube Feeding 275 ml 220 ml # Voids 3 3 # Bowel Movements 2 1 General Appearance: no acute distress, cachetic HEENT: normocephalic, atraumatic, anicteric, mucous membranes moist Respiratory/Chest: chest wall non-tender, lungs clear, normal breath sounds, no respiratory distress Cardiovascular: normal peripheral pulses, normal rate, regular rhythm Abdomen: normal bowel sounds, soft, non tender, no organomegaly, non distended , other - GT Extremities: no cyanosis, no clubbing, no edema Microbiology Date/Time Source Procedure Growth Status 08/08/18 00:41 Stool Clostridium difficile Toxin Assay - Final Complete Laboratory Tests 08/10/18 05:45: White Blood Count 3.6L, Red Blood Count 3.13L, Hemoglobin 9.6L, Hematocrit 29.1L , Mean Corpuscular Volume 93, Mean Corpuscular Hemoglobin 30.7, Mean Corpuscular Hemoglobin Concent 33.1, Red Cell Distribution Width 16.1H, Platelet Count 113L, Mean Platelet Volume 8.4, Neutrophils (%) (Auto) 70.0, Lymphocytes (%) (Auto) 20.8, Monocytes (%) (Auto) 6.5, Eosinophils (%) (Auto) 2.1, Basophils (%) (Auto) 0.7, Prothrombin Time 10.3, Prothromb Time International Ratio 1.0, Sodium Level 139, Potassium Level 4.2, Chloride Level 103, Carbon Dioxide Level 33H, Anion Gap 3L, Blood Urea Nitrogen 17, Creatinine 0.8, Estimat Glomerular Filtration Rate , Glucose Level 109H, Calcium Level 9.8 Current Medications Medications (Trade) Dose Ordered Sig/Laure Route PRN Reason Start Time Stop Time Status Last Admin Dose Admin Acetaminophen (Tylenol) 650 mg Q4H PRN ORAL Fever/Headache/Mild Pain 08/02/18 13:21 08/25/18 13:20 Aspirin (ASA) 81 mg DAILY NG 08/03/18 09:00 08/30/18 08:59 08/08/18 08:44 Dextrose (Dextrose 50%) 25 ml Q30M PRN IV Hypoglycemia 08/02/18 13:45 08/25/18 15:14 Dextrose (Dextrose 50%) 50 ml Q30M PRN IV Hypoglycemia 08/02/18 13:45 08/25/18 15:14 Famotidine (Pepcid) 20 mg BID ORAL 08/02/18 18:00 08/25/18 17:59 08/09/18 17:49 Haloperidol Lactate (Haldol) 5 mg Q6H PRN IM Agitation 08/03/18 23:30 09/02/18 23:29 Heparin Sodium (Porcine) (Heparin 5000 units/ml) 5,000 units EVERY 12 HOURS SUBQ 08/09/18 21:00 09/08/18 20:59 Heparin Sodium/ Sodium Chloride (Heparin 2000 units/Ns 1000ml premix) 2,000 unit ONCE PRN INJ PICC 08/09/18 13:38 08/10/18 23:59 Insulin Aspart (NovoLOG) BEFORE MEALS AND HS SUBQ 08/02/18 16:30 08/25/18 16:29 08/09/18 20:14 Lidocaine HCl (Xylocaine 1% 30ml) 30 ml ONCE PRN INJ PICC 08/09/18 13:45 08/10/18 23:59 Loperamide HCl (Imodium) 2 mg Q4H PRN GT Diarrhea 08/08/18 10:30 09/07/18 10:29 08/08/18 18:29 Lorazepam (Ativan 2mg/ml 1ml) 1 mg EVERY 4 HOURS PRN IM anxiety 08/03/18 23:30 08/10/18 23:29 08/03/18 23:55 Potassium Chloride (K-Dur) 40 meq BID GT 08/07/18 18:00 09/04/18 08:59 08/09/18 17:49 Quetiapine Fumarate (SEROquel) 12.5 mg Q4H PRN ORAL agitation 08/02/18 15:15 08/26/18 11:14 Quetiapine Fumarate (SEROquel) 25 mg Q12HR GT 08/04/18 21:00 08/26/18 10:39 08/09/18 20:11 Foreign Parekh MD Aug 10, 2018 13:20
--- NOTE | 2018-08-10 13:28 | Pre-Procedure Note/Attestation ---
Pre-Procedure Note/Attestation Complete Prior to Procedure Planned Procedure: not applicable Procedure Narrative: IVC filter Indications for Procedure Pre-Operative Diagnosis: DVT, contraindication to anticoagulation Attestation I attest that I discussed the nature of the procedure; its benefits; risks and complications; and alternatives (and the risks and benefits of such alternatives ), prior to the procedure, with the patient (or the patient's legal premium representative). I attest that, if there was a reasonable possibility of needing a blood transfusion, the patient (or the patient's legal premium representative) was given the [facility] standardized written summary, pursuant to the [place] Blood Safety Act ([place] Health and Safety Code # 1645, as amended). I attest that I re-evaluated the patient just prior to the surgery and that there has been no change in the patient's H&P, except as documented below: Discussed by phone with dax at [phone] Reji Santos MD Aug 10, 2018 13:28
--- NOTE | 2018-08-10 15:32 | Brief Operative Note ---
Immediate Post Operative Note Operative Note Pre-op Diagnosis: DVT, contraindication to anticoagulation Procedure: IVC filter Post-op Diagnosis: same as pre-op Findings: consistent w/pre-op dx studies Surgeon: Carla SANTOS Specimen: none Complications: none Condition: stable Fluids: none Implant(s) used?: Yes - [employer] IVC permanent filter Reji Santos MD Aug 10, 2018 15:32
--- NOTE | 2018-08-10 23:04 | General Progress Note ---
Assessment/Plan Problem List: (1) Dementia with behavioral disturbance ICD Codes: F03.91 - Unspecified dementia with behavioral disturbance SNOMED: 2101688088310 (2) Encephalopathy due to metabolic factor or toxin SNOMED: 108310891 Assessment/Plan 1. 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 2. Dementia. PLAN: 1. We will continue the Seroquel. 2. Provide reality orientation and supportive therapy. 3. Bilateral soft restraint. 4. the pt s son should sign the consent Subjective Date patient seen: Aug 10, 2018 Neurologic/Psychiatric: Reports: anxiety, depressed, emotional problems Allergies: Coded Allergies: No Known Allergies (Unverified , 07/26/18) Subjective the pt is confused agitated at times Objective Last 24 Hour Vital Signs Date Time Temp Pulse Resp B/P (MAP) Pulse Ox O2 Delivery O2 Flow Rate FiO2 08/10/18 16:00 98.1 76 19 121/62 (81) 96 08/10/18 15:30 97.7 88 14 130/76 (94) 97 08/10/18 15:00 94 18 144/84 (104) 99 08/10/18 14:55 96 18 161/79 (106) 98 08/10/18 14:50 100 18 163/81 (108) 97 08/10/18 14:45 98 18 168/87 (114) 99 08/10/18 14:40 99 18 158/86 (110) 99 08/10/18 14:07 81 16 08/10/18 12:00 97.5 74 16 122/59 (80) 96 08/10/18 09:00 Room Air 08/10/18 08:00 97.0 74 14 140/63 (88) 98 08/10/18 04:00 97.8 75 16 115/61 (79) 97 08/10/18 00:00 97.9 78 18 128/70 (89) 97 Intake and Output 08/09/18 08/10/18 19:00 07:00 Intake Total 395 ml 320 ml Balance 395 ml 320 ml Free Water 120 ml 100 ml Tube Feeding 275 ml 220 ml # Voids 3 3 # Bowel Movements 2 1 Laboratory Tests 08/10/18 05:45: White Blood Count 3.6L, Red Blood Count 3.13L, Hemoglobin 9.6L, Hematocrit 29.1L , Mean Corpuscular Volume 93, Mean Corpuscular Hemoglobin 30.7, Mean Corpuscular Hemoglobin Concent 33.1, Red Cell Distribution Width 16.1H, Platelet Count 113L, Mean Platelet Volume 8.4, Neutrophils (%) (Auto) 70.0, Lymphocytes (%) (Auto) 20.8, Monocytes (%) (Auto) 6.5, Eosinophils (%) (Auto) 2.1, Basophils (%) (Auto) 0.7, Prothrombin Time 10.3, Prothromb Time International Ratio 1.0, Sodium Level 139, Potassium Level 4.2, Chloride Level 103, Carbon Dioxide Level 33H, Anion Gap 3L, Blood Urea Nitrogen 17, Creatinine 0.8, Estimat Glomerular Filtration Rate , Glucose Level 109H, Calcium Level 9.8 Height (Feet): 5 Height (Inches): 2.00 Weight (Pounds): 107 Kimmy Chavez MD Aug 10, 2018 23:04
--- NOTE | 2018-08-11 08:23 | Diagnostic Imaging Report ---
Indications: Deep venous thrombosis, contraindication to anticoagulation Technique: Case discussed with referring physician Dr. Gayle. It was elected to place a permanent inferior vena cava filter, given patient's age and condition. Informed consent obtained prior to commencement of the procedure the patient's son by phone. Prior CT scan reviewed, and demonstrates no caval anomalies . Procedural timeout performed. Total sterile technique, including sterile probe cover and sterile gel, sterile gloves, hand hygiene, hat, mask,, sterile gown, large sterile drape, and preparation with 2% chlorhexidine utilized. Local anesthesia with 1% lidocaine. Ultrasound reveals patent compressible right internal jugular vein. Under real-time ultrasound guidance, puncture right internal jugular vein, passage of a guidewire, into the inferior vena cava, , over which was passed a pigtail marker catheter. Catheter placed at the level of the iliac venous confluence.. An inferior venacavogram performed, using machine injection of contrast. The images were reviewed. The position of the renal veins was determined. The catheter was then exchanged for the introducer assembly of the [employer] IVC filter. The introducer assembly was advanced further into the inferior vena cava over a guidewire, and the guidewire and dilator were removed. The filter was passed into the into the sheath. It was then positioned into the appropriate position, below a slight constriction and kink in the vein but above the iliac venous confluence. The filter was then deployed by unsheathing it. The filter introducer was removed, and a followup inferior venacavogram was performed using hand injection of contrast through the sheath. The filter position was deemed acceptable. The sheath was removed. Pressure held on the right neck until hemostasis was achieved. The patient tolerated procedure well, without immediate complication. Total fluoroscopy time 2.8 minutes Total dose area product 320 dGycm2 Total number of images-64 Comparison: none. Findings: Inferior venacavogram demonstrates normal caliber inferior vena cava. Single renal veins appear to be present, although earlier CT from 07/29/2018 suggest the presence of an accessory right renal vein. No intracaval thrombus. Completion inferior venacavogram demonstrates satisfactory filter position, with no significant tilt. Impression: Successful placement of [employer] infrarenal inferior vena cava filter, as above.
--- NOTE | 2018-08-11 14:50 | Discharge Summary ---
Discharge Summary Discharge Summary _ DATE OF ADMISSION: 07/26/2018 DATE OF DISCHARGE: 08/10/2018 CONSULTANTS: Dr. Edwardo Card BRIEF HOSPITAL COURSE: Patient is a 78-year-old female, who presented from nursing facility, who was brought in to [facility] via EMS for complaints of fever and tachycardia. Patient herself was unable to provide history. She has underlying dementia. There was no reports of diarrhea, no vomiting. She has medical history significant for hyperlipidemia, encephalopathy, anemia, hypertension, and diabetes mellitus. On evaluation at ED, patient was febrile, temperature 101.8 and tachycardic with leukocytosis. Blood work showed thrombocytopenia. Venous duplex scan showed an acute thrombosis in the left superficial vein. Chest x-ray with infrahilar atelectasis and/ or infiltrate. She was admitted for UTI, sepsis as well as hypernatremia and hypokalemia. She was initially given Rocephin. She was seen by infectious disease specialist. Rocephin was discontinued and was given Zosyn and vancomycin. She was given half NS and potassium supplements. She was noted to have thrombocytopenia, however, unknown baseline. Abdominal ultrasound showed mild left hydronephrosis, liver with normal echogenicity and no focal abnormality. Spleen was unremarkable. HIV and hepatitis panel was negative. She was agitated with waxing and waning of consciousness. She was given Seroquel. She denied any suicidal or homicidal ideation. Bedside swallow evaluation was done. Patient passed swallow evaluation and was recommended on pured, however, patient is only meeting 50% of nutritional needs. Video swallow evaluation was done. She was recommended long-term nonoral feeding, advised strict nothing by mouth. NG tube was inserted and was eventually started on tube feedings. Urine culture showed growth of Escherichia coli. Zosyn was changed to Levaquin. Blood culture showed growth of Kocuria sp., likely contaminated. Antibiotics were switched to Rocephin. Stool C. difficile negative. She was eventually taken off antibiotics. Platelet drop to 48. Heparin drip was discontinued. She was eventually given Lovenox injections with bridge to Coumadin. There was an incidental finding of a ureteric stone. Urologist was consulted. Renal ultrasound showed mild left hydronephrosis. KUB revealed possible 7 mm stone projected to the left of L4. CT scan of the abdomen and pelvis showed moderate left hydronephrosis with 4-5 minutes interureteral stone at the L4 level. On evaluation, patient did not appear to have any pain, renal function returned to normal. She was recommended, once medical issues improved, can consider a ureteroscopy with later lithotripsy or double J stent placement when stable. On 08/04/2018, she underwent upper endoscopy with PEG tube placement. She tolerated procedure well. She was eventually started on G-tube feedings. She was placed on bilateral soft restraints to prevent from pulling G-tube. Given low H&H and low platelets. Anticoagulation was discontinued. On 2017, she underwent successful placement of IVC filter. Labs were stable. Vital signs stable. Thrombocytopenia improved. She was eventually discharged back to [facility]. FINAL DIAGNOSES: Sepsis/SIRS UTI with Escherichia coli Gram-positive cocci bacteremia Extensive acute left superficial vein DVT on the left leg status post IVC filter placement Likely pulmonary embolism Hypernatremia Dehydration Hypokalemia Hypertension Hyperlipidemia Thrombocytopenia Anemia Diabetes mellitus out of control Dementia with behavioral disturbance Metabolic encephalopathy Dysphagia status post PEG placement on 08/04/2018 Left kidney stone DISPOSITION: Patient was discharged to [facility]. I have been assigned to dictate discharge summary on this account, and I was not involved in the patient's management. Lea Kang NP Aug 11, 2018 14:50
== END 2018-08-10 19:40 | DRG 853 ==
LOC: EDBD 10:36 → EDBEDREQ 10:57 → EMR 11:10 → 2E 11:44 → EDBEDREQ 13:19 → 4E 08-02 13:20
PROC: 0DH63UZ Insertion of Feeding Device into Stomach, Percutaneous Approach (ICD-10-PCS; principal; 2018-08-04 07:04)
PROC: 06H03DZ Insertion of Intraluminal Device into Inferior Vena Cava, Percutaneous Approach (ICD-10-PCS; 2018-08-10)
DX: A41.9 Sepsis, unspecified organism (principal); I26.99 Other pulmonary embolism without acute cor pulmonale; G93.41 Metabolic encephalopathy; N39.0 Urinary tract infection, site not specified; E87.0 Hyperosmolality and hypernatremia; F03.91 Unspecified dementia, unspecified severity, with behavioral disturbance; I82.412 Acute embolism and thrombosis of left femoral vein; E46 Unspecified protein-calorie malnutrition; N13.2 Hydronephrosis with renal and ureteral calculous obstruction; D61.818 Other pancytopenia; E86.0 Dehydration; E87.6 Hypokalemia; Z78.1 Physical restraint status; I10 Essential (primary) hypertension; F09 Unspecified mental disorder due to known physiological condition; E78.5 Hyperlipidemia, unspecified; F41.9 Anxiety disorder, unspecified; R13.10 Dysphagia, unspecified; E11.65 Type 2 diabetes mellitus with hyperglycemia; R09.02 Hypoxemia; Z68.20 Body mass index [BMI] 20.0-20.9, adult; D69.6 Thrombocytopenia, unspecified; K29.40 Chronic atrophic gastritis without bleeding; B96.20 Unspecified Escherichia coli [E. coli] as the cause of diseases classified elsewhere
CPT/HCPCS: 36415; 36600; 71045; 74018; 74176; 74230; 76700; 76937; 80048; 80053; 80076; 80202; 81003; 82270; 82378; 82550; 82553; 82607; 82728; 82746; 82803; 82962; 83010; 83540; 83550; 83605; 83735; 83880; 84100; 84439; 84443; 84484; 84550; 85007; 85025; 85044; 85060; 85379; 85384; 85610; 85660; 85730; 86703; 86705; 86709; 86803; 87040; 87081; 87086; 87181; 87324; 87340; 93005; 93306; 93970; 94003; 94150; 99285; J1815; J8499

== ENCOUNTER 2018-11-30 23:59 | Inpatient (IN) | payer OTHER, MEDICAID ==
[~2018-11-30] VITALS: Ht 160 cm; Wt 56.2 kg
[~2018-11-30 23:59] MED LIST: ACETAMINOPHEN325 M1 ORAL; AMLODIPINE BESY10 MG ORAL; ASPIRIN EC81 MG ORAL; ATORVASTATIN CA20 MG ORAL; CATAPRES0.1 MG ORAL; KLONOPIN0.5 MG ORAL; MILK OF MA2400 MG/10 ORAL; MULTI-VITAMIN-1 EACH PO; POTASSIUM CHLO20 ME1 ORAL; QUETIAPINE FUMA25 MG ORAL; SENNA8.6 M2 PO; ZOFRAN4 M3 ORAL; [UNRECOGNIZED DRUG - OTHER]; [UNRECOGNIZED DRUG - OTHER] PO
[2018-12-01] VITALS (36 sets, daily range): BP systolic 84–155; BP diastolic 46–101
--- NOTE | 2018-12-01 00:05 | NUR ---
ED Nurse Note: Patient came to ed by [facility] 26 from [facility] c/o altered, possible sepsis. Temp is 104. BS 233 pt is tachcardiac at 143 bp is 88/53 ermd aware awaiting further orders
[2018-12-01] MEDS ORDERED: HUMALOG100 UNIT/1 SUBQ (00:08)
[2018-12-01] MEDS ORDERED: FERROUSUL325 M1 GT (00:08)
[2018-12-01] MEDS ORDERED: Acetaminophen 650 MG SUPP RECTAL ONE (00:30)
[2018-12-01 00:41] LABS: HEMATOCRIT 28.5 % (37.0-47.0); HEMOGLOBIN 9.3 G/DL (12.0-16.0); MEAN CORPUSCULAR VOLUME 97 FL (80-99); PLATELET COUNT 54 K/UL (150-450); RED BLOOD COUNT 2.96 M/UL (4.20-5.40); RED CELL DISTRIBUTION WIDTH 14.7 % (11.6-14.8); WHITE BLOOD COUNT 3.2 K/UL (4.8-10.8)
[2018-12-01 00:51] LABS: ANION GAP 10 mmol/L (5-15); BLOOD UREA NITROGEN 48 mg/dL (7-18); CALCIUM 8.4 MG/DL (8.5-10.1); CARBON DIOXIDE 25 MMOL/L (21-32); CHLORIDE 106 MMOL/L (98-107); CREATININE 1.2 MG/DL (0.55-1.30); POTASSIUM 4.5 MMOL/L (3.5-5.1); SODIUM 141 MMOL/L (136-145)
[2018-12-01 00:57] LABS: BILIRUBIN, URINE NEGATIVE (NEGATIVE); GLUCOSE, URINE (UA) NEGATIVE (NEGATIVE); KETONES,URINE NEGATIVE (NEGATIVE); LEUKOCYTE ESTERASE ,URINE 3+ (NEGATIVE); NITRITE,URINE NEGATIVE (NEGATIVE); PH,URINE 8 (4.5-8.0); PROTEIN,URINE 3+ (NEGATIVE); UROBILINOGEN,URINE 1 MG/DL (0.0-1.0)
--- NOTE | 2018-12-01 01:02 | NUR ---
ED Nurse Note: giovanna arware of pt BP and troponin level
[2018-12-01 01:05] LABS: APPEARANCE,URINE TURBID; COLOR,URINE YELLOW
[2018-12-01 01:06] LABS: ALANINE AMINOTRANSFERASE 32 U/L (12-78); ALBUMIN 2.2 G/DL (3.4-5.0); ALBUMIN/GLOBULIN RATIO 0.5 (1.0-2.7); ALKALINE PHOSPHATASE 159 U/L (46-116); ASPARTATE AMINO TRANSFERASE 44 U/L (15-37); BILIRUBIN,TOTAL 0.8 MG/DL (0.2-1.0); CKMB 0.9 NG/ML (0.0-3.6); CREATINE KINASE 58 U/L (26-308)
[2018-12-01] MEDS ORDERED: cefTRIAXone 1 GM in NS 55 ML IVPB ONE (01:15)
--- NOTE | 2018-12-01 03:20 | Emergency Room Report ---
History of Present Illness General Chief Complaint: Altered Mental Status Source: Patient Present Illness HPI 78-year-old female presents ED for evaluation. Brought in by EMS from half-way facility. Tachycardic, fever. per nursing staff started tonight. Patient is nonverbal at baseline. Unable to provide any additional history at this time. No signs of distress. No other aggravating relieving factors. No other associated symptoms Allergies: Coded Allergies: No Known Allergies (Unverified , 07/26/18) Patient History Past Medical History: DM, HTN, dementia, psych hx Past Surgical History: none Pertinent Family History: none Social History: Denies: smoking, alcohol use, drug use Last Menstrual Period: CAIO Now: No Immunizations: UTD Reviewed Nursing Documentation: PMH: Agreed; PSxH: Agreed Nursing Documentation-PMH Past Medical History: No History, Except For Hx Cardiac Problems: Yes - hyperlipidemia Hx Hypertension: Yes Hx Diabetes: Yes - Type 2 Hx Cancer: No Hx Gastrointestinal Problems: No Hx Neurological Problems: Yes - metabolic encephalopathy Hx Cerebrovascular Accident: Yes Hx Dementia: Yes Hx Weakness: Yes Review of Systems All Other Systems: limited Physical Exam Vital Signs Date Time Temp Pulse Resp B/P (MAP) Pulse Ox O2 Delivery O2 Flow Rate FiO2 11/30/18 23:56 104.0 160 16 104/52 98 Room Air Sp02 EP Interpretation: reviewed, normal General Appearance: no apparent distress, cachetic, lethargic Head: normocephalic, atraumatic Eyes: bilateral eye normal inspection, bilateral eye PERRL ENT: hearing grossly normal, normal pharynx, no angioedema, normal voice Neck: full range of motion, supple/symm/no masses Respiratory: chest non-tender, lungs clear, normal breath sounds, speaking full sentences Cardiovascular #1: no edema, tachycardia Cardiovascular #2: 2+ carotid (R), 2+ carotid (L), 2+ radial (R), 2+ radial (L) , 2+ dorsalis pedis (R), 2+ dorsalis pedis (L) Gastrointestinal: normal bowel sounds, non tender, soft, non-distended, no guarding, no rebound Rectal: deferred Genitourinary: normal inspection, no CVA tenderness Musculoskeletal: back normal Neurologic: other - nonverbal Psychiatric: other - nonverbal Reflexes: 3+ bicep (R), 3+ bicep (L), 3+ tricep (R), 3+ tricep (L), 3+ knee (R) , 3+ knee (L) Skin: normal color, no rash, warm/dry, well hydrated Lymphatic: no adenopathy Medical Decision Making Diagnostic Impression: Primary Impression: Sepsis Qualified Codes: A41.9 - Sepsis, unspecified organism Additional Impressions: UTI (urinary tract infection) Qualified Codes: N39.0 - Urinary tract infection, site not specified Pneumonia Qualified Codes: J18.1 - Lobar pneumonia, unspecified organism Elevated troponin ER Course Hospital Course 78-year-old female presenting to ED with generalized weakness, fever, tachycardic Differential diagnoses include: Pneumonia, UTI, sepsis, dehydration, [place]/ unstable angina Clinical course Patient placed on stretcher. On residential monitor with tachycardia. After initial history and physical, I ordered labs, IV fluids, EKG, chest x-ray, blood cultures, UA. given rectal tylenol Labs - electrolytes ok, +leukopenia, trop 0.274, lactate > 4, UA grossly positive for UTI EKG - sinus tachycardia, no acute ischeic changes interpreted by me CXR - bilateral pneumoia Abx given. Given 30 mL per KG fluid bolus. Given aspirin. Case discussed with Dr Asencio and they agreed to admit patient to their service for further care and support I feel this is a highly complex case requiring extensive working including EKG/ Rhythm strip, Xray/CT/US, Blood/urine lab work, repeat exams while in ED, and administration of strong opiates/narcotics for pain control, admission to hospital or close patient follow up. Diagnosis - UTI, sepsis, pneumonia, elevated troponin Patient admitted to telemetry in serious condition Labs Test 12/01/18 00:20 12/01/18 00:47 12/01/18 03:11 White Blood Count 3.2 K/UL (4.8-10.8) Red Blood Count 2.96 M/UL (4.20-5.40) Hemoglobin 9.3 G/DL (12.0-16.0) Hematocrit 28.5 % (37.0-47.0) Mean Corpuscular Volume 97 FL (80-99) Mean Corpuscular Hemoglobin 31.6 PG (27.0-31.0) Mean Corpuscular Hemoglobin Concent 32.7 G/DL (32.0-36.0) Red Cell Distribution Width 14.7 % (11.6-14.8) Platelet Count 54 K/UL (150-450) Mean Platelet Volume 8.1 FL (6.5-10.1) Neutrophils (%) (Auto) % (45.0-75.0) Lymphocytes (%) (Auto) % (20.0-45.0) Monocytes (%) (Auto) % (1.0-10.0) Eosinophils (%) (Auto) % (0.0-3.0) Basophils (%) (Auto) % (0.0-2.0) Sodium Level 141 MMOL/L (136-145) Potassium Level 4.5 MMOL/L (3.5-5.1) Chloride Level 106 MMOL/L (98-107) Carbon Dioxide Level 25 MMOL/L (21-32) Anion Gap 10 mmol/L (5-15) Blood Urea Nitrogen 48 mg/dL (7-18) Creatinine 1.2 MG/DL (0.55-1.30) Estimat Glomerular Filtration Rate mL/min (>60) Glucose Level 180 MG/DL (74-106) Lactic Acid Level 4.20 mmol/L (0.4-2.0) Calcium Level 8.4 MG/DL (8.5-10.1) Total Bilirubin 0.8 MG/DL (0.2-1.0) Aspartate Amino Transf (AST/SGOT) 44 U/L (15-37) Alanine Aminotransferase (ALT/SGPT) 32 U/L (12-78) Alkaline Phosphatase 159 U/L (46-116) Total Creatine Kinase 58 U/L (26-308) Creatine Kinase MB 0.9 NG/ML (0.0-3.6) Creatine Kinase MB Relative Index 1.5 Troponin I 0.274 ng/mL (0.000-0.056) Pro-B-Type Natriuretic Peptide 880 pg/mL (0-125) Total Protein 7.0 G/DL (6.4-8.2) Albumin 2.2 G/DL (3.4-5.0) Globulin 4.8 g/dL Albumin/Globulin Ratio 0.5 (1.0-2.7) Urine Color Yellow Urine Appearance Turbid Urine pH 8 (4.5-8.0) Urine Specific [place] 1.010 (1.005-1.035) Urine Protein 3+ (NEGATIVE) Urine Glucose (UA) Negative (NEGATIVE) Urine Ketones Negative (NEGATIVE) Urine Blood 5+ (NEGATIVE) Urine Nitrite Negative (NEGATIVE) Urine Bilirubin Negative (NEGATIVE) Urine Urobilinogen 1 MG/DL (0.0-1.0) Urine Leukocyte Esterase 3+ (NEGATIVE) Urine RBC Tntc /HPF (0 - 2) Urine WBC Tntc /HPF (0 - 2) Urine Squamous Epithelial Cells Few /LPF (NONE/OCC) Urine Triple Phosphate Crystals Many /LPF (NONE) Urine Bacteria Many /HPF (NONE) EKG Diagnostic Results Rate: tachycardiac Rhythm: NSR ST Segments: no acute changes ASA given to the pt in ED: No Rhythm Strip Diag. Results EP Interpretation: yes Rhythm: NSR, no PVC's, no ectopy Chest X-Ray Diagnostic Results Chest X-Ray Diagnostic Results : Chest X-Ray Ordered: Yes # of Views/Limited/Complete: 1 View Indication: Other EP Interpretation: Yes Interpretation: no pneumothorax, other - atelectasis/consolidation bilateral lungs Impression: Other - pneumonia Electronically Signed by: Electronically signed by Angel Rollins MD Last Vital Signs Date Time Temp Pulse Resp B/P (MAP) Pulse Ox O2 Delivery O2 Flow Rate FiO2 12/01/18 00:59 104.0 143 17 104/52 98 Room Air Status: improved Disposition: ADMITTED INPATIENT Condition: Serious Referrals: NON PHYSICIAN (PCP) Angel Rollins MD Dec 01, 2018 03:20
--- NOTE | 2018-12-01 04:14 | NUR ---
ED Nurse Note: PT LACTIC WAS 4.2 AT 0030, REFLEX LACTIC 4.6 AT 0330, ERMD AWARE, WAITING FUTHER ORDERS
[2018-12-01] MEDS ORDERED: Vancomycin 1 GM in NS 275 ML IV ONE (05:30)
--- NOTE | 2018-12-01 06:02 | Emergency Room Report ---
Medical Decision Making Diagnostic Impression: Primary Impression: Sepsis Qualified Codes: A41.9 - Sepsis, unspecified organism Additional Impressions: Elevated troponin UTI (urinary tract infection) Qualified Codes: N39.0 - Urinary tract infection, site not specified Pneumonia Qualified Codes: J18.1 - Lobar pneumonia, unspecified organism ER Course Despite adequate 30 mL per KG fluid bolus patient remains hypotensive. Consideration for severe sepsis versus septic shock. Central line placed. Ankle mycin added. We'll upgrade to ICU. Consideration for pressors Last Vital Signs Date Time Temp Pulse Resp B/P (MAP) Pulse Ox O2 Delivery O2 Flow Rate FiO2 12/01/18 04:59 98.5 117 23 98/52 100 Room Air Status: improved Disposition: ADMITTED INPATIENT Condition: Critical Referrals: NON PHYSICIAN (PCP) Procedures Critical Care Time Critical Care Time i. I feel this is a highly complex case requiring extensive working including EKG/Rhythm strip, Xray/CT/US, Blood/urine lab work, repeat exams while in ED, and administration of strong opiates/narcotics for pain control, admission to hospital or close patient follow up. Total time: 45 min bedside evaluation and treatment excludes procedures (EKG). Reason for critical care: hypotensive, severe sepsis Possible complications: hypotension, hypertension, CO, shock, arrhythmias, metabolic acidosis, end organ damage, respiratory failure. Interventions: labs, IVFS, EKG, CXR, abx, central line Course: Patient presenting with fever, tachycardic. Lactic markedly elevated, UTI. Also pneumonia. Given antibiotics. Despite 30 mL per KG fluid bolus patient remains hypotensive. Central line placed. Vancomycin added. Consultations: nursing staff, EMS, family Performed by: Dr Rollins Tolerated well condition = critical j. because of unstable vital signs this patient had a condition that could potentially threaten life or limb. I feel this is a critical patient who required my full attention while patient was considered critical. Total Critical Care Time excluding procedures was greater than 35 minutes Central Line Central Line : Consent: Emergent Central Line Lumen: triple Maximal Sterile Barrier Tech: yes cap, yes mask, yes sterile gown, yes sterile gloves, yes large sterile sheet, yes hand hygiene, yes chlorhexidine prep Central Line Postion: femoral (R) Anesthesia: Lidocaine Complications: none Central Line Post Position: sutured, good blood return Attempts: One Patient Tolerated: Well Complications: None Angel Rollins MD Dec 01, 2018 06:02
[2018-12-01] MEDS ORDERED: Levophed 4mg/4mL Inj IV ONE (06:38)
--- NOTE | 2018-12-01 07:00 | NUR ---
ED Nurse Note: 2nd lactic reflex order per lab protocol, informed ermd, of second lactic acid result. per ermd, hold on 2nd lactic reflec order until medication compelete and BP stabilized
--- NOTE | 2018-12-01 07:24 | NUR ---
HAND-OFF: Report given to mark bain.
--- NOTE | 2018-12-01 07:30 | NUR ---
ED Nurse Note: care assummed of pt. 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 pt utilizing NRB face mask , tolerating well. pt will open eyes with verbal stimuli but no verbal response, not able to follow commands. pt with levophed gtt infusing at 2mcg/min see iv spreadsheet and frequent vs. lungs dim throughout. gtube noted to abd. vera draining yellow urine. right femoral TLC noted.per prior rn lactic level #3 canclled draw by er .
--- NOTE | 2018-12-01 08:15 | NUR ---
ED Nurse Note: pt family here and given updates. pt with pending transfer to icu.
--- NOTE | 2018-12-01 08:20 | NUR ---
ED Nurse Note: pt with bp decreased as noted. levophed gtt increased to 4mcg/min as per protocol/orders. see iv spreadsheet.
--- NOTE | 2018-12-01 08:25 | NUR ---
ED Nurse Note: bp improved, see vs. pt tolerating well.
--- NOTE | 2018-12-01 09:00 | NUR ---
ED Nurse Note: pt with accucheck 161. pt transported to icu with rn and acls protocol
--- NOTE | 2018-12-01 09:41 | Cardiology Progress Note ---
Assessment/Plan Assessment/Plan The patient is seen and examined, full consult note is dictated. Objective Last 24 Hour Vital Signs Date Time Temp Pulse Resp B/P (MAP) Pulse Ox O2 Delivery O2 Flow Rate FiO2 12/01/18 09:02 105 20 130/64 100 Non-Rebreather 15.0 12/01/18 08:35 107 20 115/82 100 Non-Rebreather 15.0 12/01/18 08:35 115/82 12/01/18 08:25 107 20 104/56 100 Non-Rebreather 15.0 12/01/18 08:20 101 19 84/48 100 Non-Rebreather 15.0 12/01/18 08:20 84/48 12/01/18 08:15 100 19 88/46 100 Non-Rebreather 15.0 12/01/18 08:00 105 20 90/54 100 Non-Rebreather 15.0 12/01/18 07:45 105 19 98/58 100 Non-Rebreather 15.0 12/01/18 07:30 105 18 100/50 100 Non-Rebreather 15.0 12/01/18 06:58 102/54 12/01/18 06:57 98.5 108 17 94/53 100 Non-Rebreather 9.0 12/01/18 06:53 97/55 12/01/18 06:48 94/53 12/01/18 06:43 93/50 12/01/18 04:59 98.5 117 23 98/52 100 Non-Rebreather 9.0 12/01/18 02:59 98.5 118 22 88/54 100 Non-Rebreather 9.0 12/01/18 00:59 104.0 143 17 104/52 98 Non-Rebreather 9.0 12/01/18 00:59 143 17 Non-Rebreather 12/01/18 00:58 102.0 11/30/18 23:56 104.0 160 16 104/52 98 Room Air Intake and Output 11/30/18 12/01/18 19:00 07:00 Output Total 1 ml Balance -1 ml Output Urine Total 1 ml Laboratory Tests Test 12/01/18 00:20 12/01/18 00:47 12/01/18 03:11 White Blood Count 3.2 K/UL (4.8-10.8) L Red Blood Count 2.96 M/UL (4.20-5.40) L Hemoglobin 9.3 G/DL (12.0-16.0) L Hematocrit 28.5 % (37.0-47.0) L Mean Corpuscular Volume 97 FL (80-99) Mean Corpuscular Hemoglobin 31.6 PG (27.0-31.0) H Mean Corpuscular Hemoglobin Concent 32.7 G/DL (32.0-36.0) Red Cell Distribution Width 14.7 % (11.6-14.8) Platelet Count 54 K/UL (150-450) L Mean Platelet Volume 8.1 FL (6.5-10.1) Neutrophils (%) (Auto) % (45.0-75.0) Lymphocytes (%) (Auto) % (20.0-45.0) Monocytes (%) (Auto) % (1.0-10.0) Eosinophils (%) (Auto) % (0.0-3.0) Basophils (%) (Auto) % (0.0-2.0) Sodium Level 141 MMOL/L (136-145) Potassium Level 4.5 MMOL/L (3.5-5.1) Chloride Level 106 MMOL/L (98-107) Carbon Dioxide Level 25 MMOL/L (21-32) Anion Gap 10 mmol/L (5-15) Blood Urea Nitrogen 48 mg/dL (7-18) H Creatinine 1.2 MG/DL (0.55-1.30) Estimat Glomerular Filtration Rate mL/min (>60) Glucose Level 180 MG/DL (74-106) H Lactic Acid Level 4.20 mmol/L (0.4-2.0) H 4.60 mmol/L (0.4-2.0) H Calcium Level 8.4 MG/DL (8.5-10.1) L Total Bilirubin 0.8 MG/DL (0.2-1.0) Aspartate Amino Transf (AST/SGOT) 44 U/L (15-37) H Alanine Aminotransferase (ALT/SGPT) 32 U/L (12-78) Alkaline Phosphatase 159 U/L (46-116) H Total Creatine Kinase 58 U/L (26-308) Creatine Kinase MB 0.9 NG/ML (0.0-3.6) Creatine Kinase MB Relative Index 1.5 Troponin I 0.274 ng/mL (0.000-0.056) Pro-B-Type Natriuretic Peptide 880 pg/mL (0-125) H Total Protein 7.0 G/DL (6.4-8.2) Albumin 2.2 G/DL (3.4-5.0) L Globulin 4.8 g/dL Albumin/Globulin Ratio 0.5 (1.0-2.7) L Urine Color Yellow Urine Appearance Turbid Urine pH 8 (4.5-8.0) Urine Specific [place] 1.010 (1.005-1.035) Urine Protein 3+ (NEGATIVE) H Urine Glucose (UA) Negative (NEGATIVE) Urine Ketones Negative (NEGATIVE) Urine Blood 5+ (NEGATIVE) H Urine Nitrite Negative (NEGATIVE) Urine Bilirubin Negative (NEGATIVE) Urine Urobilinogen 1 MG/DL (0.0-1.0) H Urine Leukocyte Esterase 3+ (NEGATIVE) H Urine RBC Tntc /HPF (0 - 2) H Urine WBC Tntc /HPF (0 - 2) H Urine Squamous Epithelial Cells Few /LPF (NONE/OCC) Urine Triple Phosphate Crystals Many /LPF (NONE) H Urine Bacteria Many /HPF (NONE) H Microbiology Date/Time Source Procedure Growth Status 12/01/18 00:31 Nasal Nares Influenza Types A,B Antigen (KYLE) - Final Complete 12/01/18 00:20 Rectum Received Deepak Aldana MD Dec 01, 2018 09:41
[2018-12-01] MEDS ORDERED: Albuterol/Ipratropium 3ml neb HHN PRN (10:15)
[2018-12-01] MEDS ORDERED: Acetaminophen 650 MG SUPP RECTAL PRN (10:15)
--- NOTE | 2018-12-01 10:17 | Pulmonolgy Critical Care Note ---
Critical Care - Asmt/Plan Problems: (1) S/P IVC filter (2) DVT (deep venous thrombosis) (3) Sepsis (4) UTI (urinary tract infection) (5) Pneumonia (6) Dehydration (7) Elevated troponin (8) Malnutrition (9) Hypokalemia (10) Hypernatremia (11) Encephalopathy due to metabolic factor or toxin (12) Dementia with behavioral disturbance (13) Thrombocytopenia (14) Anemia Respiratory: monitor respiratory rate, adjust FIO2, CXR, ABG, other - PRN HHN's Cardiac: continue pressors - Titrate NE to keep MAP > 65, other - TTE, trop, LA Renal: keep IV fluid - D5NS@100, check electrolytes Infectious Disease: add antibiotics - Vanco & Zosyn, FU Cx's Gastrointestinal: hold feedings Endocrine: monitor blood sugar, check TSH, start insulin drip, other - check cortisol Hematologic: monitor H/H Neurologic: keep patient comfortable Prophylaxis: Protonix, other - S/P IVCF Disposition: keep in ICU Time Spent (Minutes): 50 Notes Reviewed: other - ER Discussed with: nurses, consultants, other - FC Critical Care - Objective Last 24 Hour Vital Signs Date Time Temp Pulse Resp B/P (MAP) Pulse Ox O2 Delivery O2 Flow Rate FiO2 12/01/18 09:02 105 20 130/64 100 Non-Rebreather 15.0 12/01/18 08:35 107 20 115/82 100 Non-Rebreather 15.0 12/01/18 08:35 115/82 12/01/18 08:25 107 20 104/56 100 Non-Rebreather 15.0 12/01/18 08:20 101 19 84/48 100 Non-Rebreather 15.0 12/01/18 08:20 84/48 12/01/18 08:15 100 19 88/46 100 Non-Rebreather 15.0 12/01/18 08:00 105 20 90/54 100 Non-Rebreather 15.0 12/01/18 07:45 105 19 98/58 100 Non-Rebreather 15.0 12/01/18 07:30 105 18 100/50 100 Non-Rebreather 15.0 12/01/18 06:58 102/54 12/01/18 06:57 98.5 108 17 94/53 100 Non-Rebreather 9.0 12/01/18 06:53 97/55 12/01/18 06:48 94/53 12/01/18 06:43 93/50 12/01/18 04:59 98.5 117 23 98/52 100 Non-Rebreather 9.0 12/01/18 02:59 98.5 118 22 88/54 100 Non-Rebreather 9.0 12/01/18 00:59 104.0 143 17 104/52 98 Non-Rebreather 9.0 12/01/18 00:59 143 17 Non-Rebreather 12/01/18 00:58 102.0 11/30/18 23:56 104.0 160 16 104/52 98 Room Air Status: other - non-verbal Condition: critical HEENT: atraumatic, normocephalic Lungs: rhonchi Heart: HR/BP unstable Abdomen: soft, non-tender, active bowel sounds, feeding tube Extremities: no C/C/E Decubiti: location - sacral, stage - 2 Micro: Microbiology Date/Time Source Procedure Growth Status 12/01/18 00:31 Nasal Nares Influenza Types A,B Antigen (KYLE) - Final Complete 12/01/18 00:20 Rectum Received Accucheck: 161 Blood Sugars: BS controlled Critical Care - Subjective ROS Limited/Unobtainable: Yes ICU Day: 1 Interval Events: 78 F NHR h/o dementia, dysphagia S/P PEG, prior extensive DVT S/P IVCF 08/10/19 , non/minimally verbal BIB EMS with fevers, low BP and hypoxemia + PNA and UTI S/P 4L IVF, CVC was placed and patient started on NE, transferred to ICU on [id number] Condition: critical IV Access: central EKG Rhythm: Sinus Rhythm Drips: NE@4 I&O: Intake and Output 11/30/18 12/01/18 19:00 07:00 Output Total 1 ml Balance -1 ml Output Urine Total 1 ml CXR: B infiltrates (not seen by me) Labs: Laboratory Tests Test 12/01/18 00:20 12/01/18 00:47 12/01/18 03:11 White Blood Count 3.2 K/UL (4.8-10.8) L Red Blood Count 2.96 M/UL (4.20-5.40) L Hemoglobin 9.3 G/DL (12.0-16.0) L Hematocrit 28.5 % (37.0-47.0) L Mean Corpuscular Volume 97 FL (80-99) Mean Corpuscular Hemoglobin 31.6 PG (27.0-31.0) H Mean Corpuscular Hemoglobin Concent 32.7 G/DL (32.0-36.0) Red Cell Distribution Width 14.7 % (11.6-14.8) Platelet Count 54 K/UL (150-450) L Mean Platelet Volume 8.1 FL (6.5-10.1) Neutrophils (%) (Auto) % (45.0-75.0) Lymphocytes (%) (Auto) % (20.0-45.0) Monocytes (%) (Auto) % (1.0-10.0) Eosinophils (%) (Auto) % (0.0-3.0) Basophils (%) (Auto) % (0.0-2.0) Sodium Level 141 MMOL/L (136-145) Potassium Level 4.5 MMOL/L (3.5-5.1) Chloride Level 106 MMOL/L (98-107) Carbon Dioxide Level 25 MMOL/L (21-32) Anion Gap 10 mmol/L (5-15) Blood Urea Nitrogen 48 mg/dL (7-18) H Creatinine 1.2 MG/DL (0.55-1.30) Estimat Glomerular Filtration Rate mL/min (>60) Glucose Level 180 MG/DL (74-106) H Lactic Acid Level 4.20 mmol/L (0.4-2.0) H 4.60 mmol/L (0.4-2.0) H Calcium Level 8.4 MG/DL (8.5-10.1) L Total Bilirubin 0.8 MG/DL (0.2-1.0) Aspartate Amino Transf (AST/SGOT) 44 U/L (15-37) H Alanine Aminotransferase (ALT/SGPT) 32 U/L (12-78) Alkaline Phosphatase 159 U/L (46-116) H Total Creatine Kinase 58 U/L (26-308) Creatine Kinase MB 0.9 NG/ML (0.0-3.6) Creatine Kinase MB Relative Index 1.5 Troponin I 0.274 ng/mL (0.000-0.056) Pro-B-Type Natriuretic Peptide 880 pg/mL (0-125) H Total Protein 7.0 G/DL (6.4-8.2) Albumin 2.2 G/DL (3.4-5.0) L Globulin 4.8 g/dL Albumin/Globulin Ratio 0.5 (1.0-2.7) L Urine Color Yellow Urine Appearance Turbid Urine pH 8 (4.5-8.0) Urine Specific [place] 1.010 (1.005-1.035) Urine Protein 3+ (NEGATIVE) H Urine Glucose (UA) Negative (NEGATIVE) Urine Ketones Negative (NEGATIVE) Urine Blood 5+ (NEGATIVE) H Urine Nitrite Negative (NEGATIVE) Urine Bilirubin Negative (NEGATIVE) Urine Urobilinogen 1 MG/DL (0.0-1.0) H Urine Leukocyte Esterase 3+ (NEGATIVE) H Urine RBC Tntc /HPF (0 - 2) H Urine WBC Tntc /HPF (0 - 2) H Urine Squamous Epithelial Cells Few /LPF (NONE/OCC) Urine Triple Phosphate Crystals Many /LPF (NONE) H Urine Bacteria Many /HPF (NONE) H Foreign Parekh MD Dec 01, 2018 10:17
--- NOTE | 2018-12-01 10:20 | NUR ---
ED Nurse Note: Received the patient from DONIS Buenrostro. Patient resting in bed, slightly opens eyes to name, non-verbal, unable to follow commands. ST with HR 104 noted on the cardiac monitor technician. Patient on non-rebreather, 15L, O2 sat 100%. No acute distress noted. Right wrist 20G intact, Right femoral TLC intact and patent, dressing i/c/d, running Levophed at 4mcg/min. VSS. G-tube intact, clamped. Leiva cath intact, draining yellow urine by gravity. Pt had normal BM x1. sacral wound noted. pt kept clean and dry. Pt has no belongings. Dr. Parekh and Dr. Aldana at bedside. Bed in lowest position, locked, side rails upx3, bed alarms on.
--- NOTE | 2018-12-01 10:38 | Diagnostic Imaging Report ---
Indication: Chest pain, shortness of breath Technique: One view of the chest Comparison: 07/26/2018 Findings: There is bilateral interstitial and airspace parenchymal disease, left greater than right, diffuse but in a predominantly perihilar distribution. There may be small pleural effusions bilaterally. The heart size is normal. Impression: Bilateral left greater than right interstitial and airspace edema versus infiltrates. Possible small bilateral pleural effusions This agrees with the preliminary interpretation provided by the emergency room physician
[2018-12-01] MEDS: D5NS 1,000 ML IV SCH ×2 (11:01→19:57)
--- NOTE | 2018-12-01 11:30 | NUR ---
NURSE NOTES: P200 mattress ordered.
--- NOTE | 2018-12-01 11:59 | General Progress Note ---
Assessment/Plan Problem List: (1) Feeding by G-tube ICD Codes: Z93.1 - Gastrostomy status SNOMED: 429514214, 497237058, 171972919 (2) S/P IVC filter ICD Codes: Z95.828 - Presence of other vascular implants and grafts SNOMED: 63603003, 729489262, 481251660 (3) Sepsis ICD Codes: A41.9 - Sepsis, unspecified organism SNOMED: 70554335 Qualifiers: Qualified Codes: A41.9 - Sepsis, unspecified organism (4) Anemia ICD Codes: D64.9 - Anemia, unspecified SNOMED: 016730915 (5) Thrombocytopenia ICD Codes: D69.6 - Thrombocytopenia, unspecified SNOMED: 044474525 (6) Dementia with behavioral disturbance ICD Codes: F03.91 - Unspecified dementia with behavioral disturbance SNOMED: 3897184449250 Assessment/Plan resume GTF fu labs abx per ID supportive care fu Subjective ROS Limited/Unobtainable: No Allergies: Coded Allergies: No Known Allergies (Unverified , 07/26/18) Objective Last 24 Hour Vital Signs Date Time Temp Pulse Resp B/P (MAP) Pulse Ox O2 Delivery O2 Flow Rate FiO2 12/01/18 11:30 90 18 115/58 (77) 100 12/01/18 11:00 98.3 93 17 97/51 (66) 100 12/01/18 10:33 105 12/01/18 09:02 105 20 130/64 100 Non-Rebreather 15.0 12/01/18 09:00 105 20 111/68 100 Non-Rebreather 15.0 12/01/18 09:00 Non-Rebreather 15.0 12/01/18 08:35 107 20 115/82 100 Non-Rebreather 15.0 12/01/18 08:35 115/82 12/01/18 08:25 107 20 104/56 100 Non-Rebreather 15.0 12/01/18 08:20 101 19 84/48 100 Non-Rebreather 15.0 12/01/18 08:20 84/48 12/01/18 08:15 100 19 88/46 100 Non-Rebreather 15.0 12/01/18 08:00 105 20 90/54 100 Non-Rebreather 15.0 12/01/18 07:45 105 19 98/58 100 Non-Rebreather 15.0 12/01/18 07:30 105 18 100/50 100 Non-Rebreather 15.0 12/01/18 06:58 102/54 12/01/18 06:57 98.5 108 17 94/53 100 Non-Rebreather 9.0 12/01/18 06:53 97/55 12/01/18 06:48 94/53 12/01/18 06:43 93/50 12/01/18 04:59 98.5 117 23 98/52 100 Non-Rebreather 9.0 12/01/18 02:59 98.5 118 22 88/54 100 Non-Rebreather 9.0 12/01/18 00:59 104.0 143 17 104/52 98 Non-Rebreather 9.0 12/01/18 00:59 143 17 Non-Rebreather 12/01/18 00:58 102.0 11/30/18 23:56 104.0 160 16 104/52 98 Room Air Intake and Output 11/30/18 12/01/18 19:00 07:00 Output Total 1 ml Balance -1 ml Output Urine Total 1 ml Laboratory Tests 12/01/18 00:20: White Blood Count 3.2L, Red Blood Count 2.96L, Hemoglobin 9.3L, Hematocrit 28.5L , Mean Corpuscular Volume 97, Mean Corpuscular Hemoglobin 31.6H, Mean Corpuscular Hemoglobin Concent 32.7, Red Cell Distribution Width 14.7, Platelet Count 54L, Mean Platelet Volume 8.1, Neutrophils (%) (Auto) , Lymphocytes (%) ( Auto) , Monocytes (%) (Auto) , Eosinophils (%) (Auto) , Basophils (%) (Auto) , Sodium Level 141, Potassium Level 4.5, Chloride Level 106, Carbon Dioxide Level 25, Anion Gap 10, Blood Urea Nitrogen 48H, Creatinine 1.2, Estimat Glomerular Filtration Rate , Glucose Level 180H, Lactic Acid Level 4.20H, Calcium Level 8.4L, Total Bilirubin 0.8, Aspartate Amino Transf (AST/SGOT) 44H, Alanine Aminotransferase (ALT/SGPT) 32, Alkaline Phosphatase 159H, Total Creatine Kinase 58, Creatine Kinase MB 0.9, Creatine Kinase MB Relative Index 1.5, Troponin I 0.274H, Pro-B-Type Natriuretic Peptide 880H, Total Protein 7.0, Albumin 2.2L, Globulin 4.8, Albumin/Globulin Ratio 0.5L 12/01/18 00:47: Urine Color Yellow, Urine Appearance Turbid, Urine pH 8, Urine Specific [place] 1.010, Urine Protein 3+H, Urine Glucose (UA) Negative, Urine Ketones Negative, Urine Blood 5+H, Urine Nitrite Negative, Urine Bilirubin Negative, Urine Urobilinogen 1H, Urine Leukocyte Esterase 3+H, Urine RBC TntcH, Urine WBC TntcH , Urine Squamous Epithelial Cells Few, Urine Triple Phosphate Crystals ManyH, Urine Bacteria ManyH 12/01/18 03:11: Lactic Acid Level 4.60H 12/01/18 10:35: Arterial Blood pH 7.412, Arterial Blood Partial Pressure CO2 33.7L, Arterial Blood Partial Pressure O2 160.8H, Arterial Blood HCO3 21.0L, Arterial Blood Oxygen Saturation 98.3, Arterial Blood Base Excess -3.2L, Renny Test Positive 12/01/18 11:13: Lactic Acid Level [Pending], Troponin I [Pending] Height (Feet): 5 Height (Inches): 3.00 Weight (Pounds): 121 General Appearance: lethargic EENT: normal ENT inspection Neck: supple Cardiovascular: normal rate Respiratory/Chest: decreased breath sounds Abdomen: normal bowel sounds, non tender, soft Extremities: non-tender Edwardo Argueta MD Dec 01, 2018 11:59
--- NOTE | 2018-12-01 12:52 | Consultation ---
Consult Note Consult Note asked to eval for low urine out put 78-year-old female presents ED for evaluation. Brought in by EMS from group home facility. Tachycardic, fever. per nursing staff started tonight. Patient is nonverbal at baseline. Unable to provide any additional history at this time. No signs of distress. No other aggravating relieving factors. No other associated symptoms No Known Allergies (Unverified , 07/26/18) Past Medical History: DM, HTN, dementia, psych hx Past Medical History: No History, Except For Hx Cardiac Problems: Yes - hyperlipidemia Hx Hypertension: Yes Hx Diabetes: Yes - Type 2 Hx Neurological Problems: Yes - metabolic encephalopathy Hx Cerebrovascular Accident: Yes Hx Dementia: Yes Hx Weakness: Yes examined data reviewed discussed with RN on presors Assessment/Plan Oliguria due to low BP Sepsis and low BP Elevated troponin UTI (urinary tract infection) Pneumonia Anemia DM+ Proteinuria: Nephropathy s/p IVC Filter Acute encephalopathy HypoAlbuminemia Fluid challenge antibiotics avoid nephrotoxics anemia mac per orders Parvez Bergman MD Dec 01, 2018 12:52
--- NOTE | 2018-12-01 13:30 | NUR ---
NURSE NOTES: Started tube feeding, Vital AF 1.2 at 20ml/hr. no residual. will continue to monitor.
[2018-12-01] MEDS: Piperacillin/Tazobactam 3.375 GM in D5W 110 ML IVPB SCH ×2 (13:40→22:07)
--- NOTE | 2018-12-01 14:14 | NUR ---
NURSE NOTES: Patient resting in bed, no acute distress noted. on 2L O2 via NC. pt off levophed gtt, vss.
--- NOTE | 2018-12-01 15:11 | NUR ---
*-* NO INSURANCE INFORMATION IN THE BAR UNABLE TO SEND CLINICALS OR REVIEWS *-*
--- NOTE | 2018-12-01 16:15 | NUR ---
NURSE NOTES: patient was turned and repositioned. Leiva cath draining yellow urine. on 2L O2 via NC, O2 sat 93%. VSS.
--- NOTE | 2018-12-01 16:30 | NUR ---
CASE MANAGEMENT:REVIEW; BIBA FROM [facility] CC: AMS SI: SEPSIS. PNA. ELEVATED TROPONIN 104.0 160 16 84/48 98% ON NON REBREATHER WBC- TROPONIN(+) 0.274 LACTIC ACID+4.20 IS: LEVOPHED GTT 1L NS BOLUS X2 TYLENOL TN IV ROCEPHIN IV VANCOMYCIN BLOOD CX CXR : TO ICU : INTERQUAL CRITERIA MET
--- NOTE | 2018-12-01 17:00 | Consultation ---
DATE OF CONSULTATION: 12/01/2018 INFECTIOUS DISEASES CONSULTATION CONSULTING PHYSICIAN: Shimon Card M.D. PRIMARY ATTENDING PHYSICIAN: Yi Asencio M.D. REASON FOR CONSULTATION: Sepsis, septic shock, urinary tract infection, and pneumonia. HISTORY OF PRESENT ILLNESS: The patient is a 78-year-old female, who is a snf resident, admitted this morning with fever and tachycardia. The patient had a heart rate of 160 in the ER, had a temperature of 104, seems to be hypoxemic, transferred to the intensive care unit, developed hypotension and started on Levophed drip. The patient is not a source of history. PAST MEDICAL HISTORY: Significant for diabetes mellitus type 2, hypertension, dementia, history of CVA in February of last year, dysphagia. The patient on previous hospitalization in July 2018 in [facility] apparently had DVT of left leg and had IVC placement, has also history of anemia, and thrombocytopenia in the past admission. ALLERGIES: No known drug allergies. MEDICATIONS: Getting Zosyn, vancomycin, DuoNeb inhaler, Zofran, Tylenol, norepinephrine, sodium chloride. SOCIAL HISTORY: No history of alcohol, drug use, or smoking. The patient is , bedbound. REVIEW OF SYSTEMS: Unobtainable. PHYSICAL EXAMINATION: VITAL SIGNS: Pulse is 105, blood pressure 130/64, temperature is 98.5, T-max is 104. GENERAL APPEARANCE: Looks pale, nonresponsive. HEAD AND NECK: Getting oxygen by rebreathing mask. HEART: Tachycardic. LUNGS: Clear but decreased sounds on bases. ABDOMEN: Soft and nontender. EXTREMITIES: No edema. LABORATORY AND DIAGNOSTIC DATA: WBC 3.2, hemoglobin 9.3, hematocrit 28.5, platelets 54. Sodium 141, potassium 4.5, chloride 106, bicarb 25, BUN 48, creatinine 1.2. Lactic acid is 4.6, AST 44, alkaline phosphatase 159. Troponin is elevated . UA showed wbc's numerous to count, rbc's too numerous disease, leukocyte esterase 2+, nitrite negative. IMPRESSION: 1. Sepsis with septic shock. 2. Pyuria likely urinary tract infection. 3. Atelectasis on chest x-ray, may have underlying pneumonia. 4. Diabetes mellitus type 2. 5. Dementia. 6. Pancytopenia. RECOMMENDATION: 1. We will continue with current antibiotic, vancomycin and Zosyn. 2. We will follow up ABG and chest x-ray. 3. We will follow up the cultures. At the end of my exam, I thank Dr. Asencio, for involving me in the care of this patient. Case was discussed with animation artist in ICU. Shimon Card M.D. DR: Henrietta JOB#: [id number] CC: MOLLY
[2018-12-01] MEDS: NovoLOG Insulin Flexpen SUBQ SCH (17:19)
--- NOTE | 2018-12-01 17:45 | History and Physical Report ---
DATE OF ADMISSION: 12/01/2018 HISTORY OF PRESENT ILLNESS: The patient comes from the alf. The patient is admitted to ICU. He is lethargic. Cannot get any history from the patient. The patient also has a history of G-tube, septic shock, has a femoral central line, is on pressors. The patient also is being admitted for urinary tract infection and pneumonia as well as pancytopenia. PAST MEDICAL HISTORY: Organic brain syndrome, hypertension, hyperlipidemia, anxiety, iron-deficiency anemia, NIDDM, electrolyte imbalance, psychosis, dysphagia, constipation, GERD, anemia, thrombocytopenia, history of DVT in the past. PAST SURGICAL HISTORY: PEG. ALLERGIES: No known allergies. MEDICATIONS: Lipitor, aspirin, amlodipine, Klonopin, clonidine, ferrous sulfate, insulin sliding scale, multivitamin, Seroquel, Senokot. FAMILY HISTORY: Unable to obtain. SOCIAL HISTORY: Unable to obtain. REVIEW OF SYSTEMS: Unable to obtain. The patient is lethargic. PHYSICAL EXAMINATION: VITAL SIGNS: Temperature 98.3, pulse 93, blood pressure is 97/51 while on pressors HEENT: Pupils are equally reactive. CHEST: Clear to auscultation. CARDIOVASCULAR: Regular rate and rhythm. No murmurs. GASTROINTESTINAL: G-tube site is intact. No erythema around it. ABDOMEN: Soft. Positive bowel sounds. No organomegaly. EXTREMITIES: No edema. Grimaces to deep noxious stimuli. Otherwise, lethargic. LABORATORY AND DIAGNOSTIC DATA: Chest x-ray shows pneumonia. WBC of 3.2, hemoglobin 9.3, and platelets of 54. ASSESSMENT/PLAN: Septic shock. He is in intensive care unit on pressors. Admitted for UTI, pneumonia, septic shock. The patient also has lactic acidosis due to septicemia as well as has pancytopenia, lethargic, and has a femoral central line. I have asked Dr. Parekh, Dr. Aldana, Dr. Dewayne Gayle, Dr. Argueta, and Dr. Shimon Card, see the patient for the management of this very critically ill patient and for the diagnoses and treatment of the above-mentioned diagnoses and issues. Yi Asencio M.D. DR: Adolfo JOB#: [id number] CC:
--- NOTE | 2018-12-01 18:18 | NUR ---
NURSE NOTES: Placed P200 mattress. patient was turned and repositioned. patient resting in bed comfortably. No acute distress noted. patient opens eyes to verbal stimuli, non-verbal.
--- NOTE | 2018-12-01 19:11 | NUR ---
HAND-OFF: Report given to DONIS Crowell.
--- NOTE | 2018-12-01 19:35 | NUR ---
NURSE NOTES: Received pt in bed with eyes closed. arousable to verbal stimuli. opens eyes but non verbal. Right Wrist 20G IV site and Right Femoral TLC running D5 NS @100 cc/hr. GT running Vital AF 1.2 @ 30 cc/hr with goal to reach 60 cc/hr. Leiva cath draining by gravity. On P200 mattress at this time. Bed in lowest position, side rails upx3. No signs of distress noted. Will continue to monitor.
[2018-12-01] MEDS: Dyna-Hex 2% Top Sol 2oz TOPIC SCH (19:57)
--- NOTE | 2018-12-01 21:00 | NUR ---
NURSE NOTES: Turned and repositioned patient. CHG bath given. Pt noted to have one BM @ this time. Leiva cath noted to be out when turning patient. new Leiva inserted at this time. Will continue to monitor
--- NOTE | 2018-12-01 23:00 | NUR ---
NURSE NOTES: Pt sleeping at this time. Sinus tach on the monitor with HR 121. BP 139/68. No signs of distress noted. Continues on 2L NC Sat 97%. Will continue with plan of care
[2018-12-02] VITALS (24 sets, daily range): BP systolic 91–163; BP diastolic 45–78
--- NOTE | 2018-12-02 00:20 | NUR ---
NURSE NOTES: Called and left message for MD Parekh in regards to pt HR 120-130's Awaiting call back
[2018-12-02] MEDS: NovoLOG Insulin Flexpen SUBQ SCH ×4 (00:30→18:04)
--- NOTE | 2018-12-02 02:10 | NUR ---
NURSE NOTES: Patient HR noted to increase as high as 157, Desaturating to 80% on 2L NC. patient baseline is non verbal but able to open eyes. At this time patient is no responding to verbal stimuli. EKG done. MD Aldana Paged
[2018-12-02] MEDS ORDERED: Digoxin 0.5mg/2ml Inj IVP ONE (02:15)
--- NOTE | 2018-12-02 02:15 | NUR ---
NURSE NOTES: Called and spoke with MD Aldana in regards to Pt HR 160, SBP 165. MD orders received and read back at this time.
--- NOTE | 2018-12-02 02:20 | NUR ---
NURSE NOTES: Called and spoke with MD Parekh in regards to patient. HR 162, ABG read back. Bi-pap ordered at this time with an ABG to be repeated in 2 hrs. STAT chest x-ray ordered at this time. Orders read back and confirmed by .
--- NOTE | 2018-12-02 02:25 | NUR ---
NURSE NOTES: Digoxin given as ordered.
--- NOTE | 2018-12-02 02:30 | NUR ---
NURSE NOTES: When Bi-pap was being applied Patient started to desat 79%. Now on Bi-pap 09/14 100%. Sat 99%. Will continue to monitor and repeat ABG ordered 0400
--- NOTE | 2018-12-02 02:40 | NUR ---
RESPIRATORY NOTE: Called to pt's room for desaturation, increase HR, & change in LOC. ABG obtained & reported to . MD Iglesia ordered pt to be placed on BiPAP. Pt now on BiPAP 09/14, backup rate 14, 100%. Pt on a Facial mask, skin intact, no redness/breakdowns noted. Foam tape applied on pt's nosebridge/cheeks/chin to prevent from any irritations. B/S rocco. clear, nonproductive cough. BiPAP plugged into red outlet. Pt tolerating settings, in no apparent distress. Will continue to monitor pt.
[2018-12-02] MEDS ORDERED: Acetaminophen 650mg/20.3ml NG PRN (04:15)
--- NOTE | 2018-12-02 04:16 | NUR ---
NURSE NOTES: Called and message left for MD with X-ray and ABG Results post 2 HR Bi-pap
--- NOTE | 2018-12-02 04:21 | NUR ---
NURSE NOTES: MD Parekh Called back with orders to continue Bi-pap.
[2018-12-02] MEDS: Vancomycin 750mg/NS 275ml IVPB SCH ×2 (04:33)
[2018-12-02] MEDS: Piperacillin/Tazobactam 3.375 GM in D5W 110 ML IVPB SCH ×3 (05:48→21:28)
[2018-12-02] MEDS: D5NS 1,000 ML IV SCH ×2 (05:48→15:39)
--- NOTE | 2018-12-02 05:50 | NUR ---
NURSE NOTES: at the bedside at this time. Update on overnight events given. Explained Bi-pap to . Pt now sinus rhythm on the monitor With HR 99. No signs of distress noted. Will continue to monitor
[2018-12-02 06:13] LABS: HEMOGLOBIN 7.6 G/DL (12.0-16.0); MEAN CORPUSCULAR VOLUME 98 FL (80-99); PLATELET COUNT 39 K/UL (150-450); RED BLOOD COUNT 2.45 M/UL (4.20-5.40); RED CELL DISTRIBUTION WIDTH 15.1 % (11.6-14.8); WHITE BLOOD COUNT 3.1 K/UL (4.8-10.8)
--- NOTE | 2018-12-02 06:35 | NUR ---
RESPIRATORY NOTE: Received pt on Bipap /, 60% FiO2. Pt is tolerating well, resting comfortably in bed. No SOB or resp distress noted. Took off mask to check toleration and skin integrity. No redness or skin breakdown noted. Re-applied foam tapes to cheeks, chin and nose bridge to prevent skin breakdown. Alarms are set and audible, Bipap is plugged into the red outlet, ambu bag is at bedside. Will continue to monitor pt.
--- NOTE | 2018-12-02 06:51 | NUR ---
NURSE NOTES: Message left for MD Parekh in regards to Hgb 7.6, Hct 24. awaiting call back
[2018-12-02 06:57] LABS: AMMONIA 47 umol/L (11-32)
--- NOTE | 2018-12-02 07:07 | NUR ---
HAND-OFF: Report given to Maria Teresa Gonzalez RN. Pt checked at the bedside with Nurse. No signs of distress noted. VS Stable
[2018-12-02 07:14] LABS: ALANINE AMINOTRANSFERASE 31 U/L (12-78); ALBUMIN 1.6 G/DL (3.4-5.0); ALBUMIN/GLOBULIN RATIO 0.4 (1.0-2.7); ALKALINE PHOSPHATASE 94 U/L (46-116); ANION GAP 10 mmol/L (5-15); ASPARTATE AMINO TRANSFERASE 40 U/L (15-37); BILIRUBIN,TOTAL 0.5 MG/DL (0.2-1.0); CALCIUM 7.5 MG/DL (8.5-10.1); CARBON DIOXIDE 21 MMOL/L (21-32); CHLORIDE 117 MMOL/L (98-107); CHOLESTEROL 74 MG/DL (< 200); CREATINE KINASE 77 U/L (26-308); CREATININE 0.8 MG/DL (0.55-1.30); FERRITIN 517 NG/ML (8-388); GAMMA GLUTAMYL TRANSPEPTIDASE 55 U/L (5-85); HDL CHOLESTEROL 23 MG/DL (40-60); PHOSPHORUS 1.9 MG/DL (2.5-4.9); POTASSIUM 2.8 MMOL/L (3.5-5.1); SODIUM 148 MMOL/L (136-145); TRIGLYCERIDES 69 MG/DL (30-150)
--- NOTE | 2018-12-02 07:16 | NUR ---
NURSE NOTES: Called and left message for MD Aldana in regards to troponin increase to now 0.309. Awaiting Call Back
--- NOTE | 2018-12-02 07:17 | NUR ---
NURSE NOTES: Received patient from DONIS Crowell. Patient VS stable at this time. Patient had elevated HR and respiratory distress during the night. HR elevated to 160's. Patient given Digoxin 0.5mg IV push. HR stable at this time at 85. Blood pressure 99/50 at this time. Patient is nonresponsive at this time. Patient showing SR On the rn cardiac. Patient on BiPAP 12/5 with FiO2 60% at this time. Patient saturation dropped to 80% overnight. Dr Parekh is aware of the patient's status and most recent ABG result. Patient saturation us 98% at this time. Patient is NPO at this time. Patient has a G tube that is patent and asymptomatic at this time. Patient has dentures that were not able to be removed last night. Will attempt to remove the dentures today when possible. Patient has a Leiva for urine retention at this time. Patient reported to have 60-70mL/hr output. Patient has a sacral stage 2 pressure ulcer. Patient is on P200 mattress at this time. Patient has a right femoral triple lumen catheter that is patent and running D5 NS at 100mL/hr at this time. Patient has marilee duplex ordered for this morning. Will follow up. Patient has Hgb of 7.6 this morning as well as potassium 2.8 and Mg of 1.[address] Parekh is aware of the Hgb value this morning. No new orders in place at this time. Awaiting orders from Dr Bergman regarding K and Mg values. If no new orders placed by 0830, will call for orders. Patient troponin level is elevated this morning. Dr Aldana and Igelsia have been made aware. Bed in low position with bed alarm and call light in reach at this time.
[2018-12-02 07:21] LABS: BLOOD UREA NITROGEN 24 mg/dL (7-18)
--- NOTE | 2018-12-02 07:39 | NUR ---
NURSE NOTES: Dr Aldana called back regarding Troponin of 0.309. I reported to him that her blood pressure has been systolic 90-110 this morning. I reported that I would hold the metoprolol that was ordered for this morning. He ordered for the metoprolol to be discontinued at this time.
[2018-12-02 07:43] LABS: % IRON SATURATION 11 % (15-50); IRON 11 ug/dL (50-175); TOTAL IRON BINDING CAPACITY 98 ug/dL (250-450)
--- NOTE | 2018-12-02 08:34 | Nephrology Progress Note ---
Assessment/Plan Problem List: (1) Sepsis Assessment: low bp (2) Oliguria Assessment: due low bp (3) Anemia (4) Hypokalemia (5) Diabetic nephropathy (6) Elevated troponin I level Assessment Oliguria due to low BP Sepsis and low BP Elevated troponin UTI (urinary tract infection) Pneumonia Anemia DM+ Proteinuria: Nephropathy s/p IVC Filter Acute encephalopathy HypoAlbuminemia Plan K Phos , KCl , MgSo4 IV ordered Fluid challenge antibiotics avoid nephrotoxics anemia mac per orders Subjective ROS Limited/Unobtainable: No Constitutional: Reports: malaise, weakness Objective Objective Last 24 Hour Vital Signs Date Time Temp Pulse Resp B/P (MAP) Pulse Ox O2 Delivery O2 Flow Rate FiO2 12/02/18 07:00 90 13 101/50 (67) 100 12/02/18 06:00 99 23 91/45 (60) 100 12/02/18 05:50 103/50 12/02/18 05:09 125 18 99 Facial 60 12/02/18 05:03 99.1 12/02/18 05:00 99.1 113 23 122/68 (86) 100 12/02/18 04:00 99.6 134 19 115/76 (89) 100 12/02/18 04:00 120 12/02/18 04:00 100 12/02/18 04:00 Nasal Cannula 2.0 12/02/18 03:00 153 23 130/75 (93) 100 12/02/18 02:37 162 25 97 Facial 100 12/02/18 02:30 100 12/02/18 02:29 162 12/02/18 02:00 161 24 163/75 (104) 96 12/02/18 01:00 121 16 137/74 (95) 97 12/02/18 00:00 Nasal Cannula 2.0 12/02/18 00:00 123 12/02/18 00:00 122 17 150/77 (101) 97 12/02/18 00:00 2.0 12/01/18 23:00 98.9 126 17 140/76 (97) 98 12/01/18 22:00 126 17 135/68 (90) 97 12/01/18 21:36 97 Nasal Cannula 2.0 28 12/01/18 21:36 130 18 Nasal Cannula 2.0 28 12/01/18 21:36 Nasal Cannula 2.0 28 12/01/18 21:00 134 22 128/78 (95) 94 12/01/18 20:00 137 23 155/84 (107) 95 12/01/18 20:00 2.0 12/01/18 20:00 128 12/01/18 20:00 Nasal Cannula 2.0 12/01/18 19:30 98.7 120 24 150/70 (96) 94 12/01/18 19:00 128 23 155/70 (98) 95 12/01/18 18:30 124 22 147/81 (103) 95 12/01/18 18:00 125 23 119/68 (85) 95 12/01/18 17:30 127 23 146/70 (95) 94 12/01/18 17:00 124 22 121/101 (108) 94 12/01/18 16:30 125 23 126/57 (80) 92 12/01/18 16:00 Nasal Cannula 2.0 12/01/18 16:00 123 12/01/18 16:00 98.6 120 21 138/65 (89) 93 12/01/18 16:00 2.0 12/01/18 15:45 118 19 116/57 (76) 93 12/01/18 15:30 116 18 119/57 (77) 93 12/01/18 15:15 116 18 114/56 (75) 95 12/01/18 15:00 117 18 119/58 (78) 94 12/01/18 14:30 118 18 138/65 (89) 93 12/01/18 14:00 138/65 12/01/18 14:00 86 14 122/55 (77) 97 12/01/18 13:30 86 15 134/71 (92) 97 12/01/18 13:00 92 16 98/48 (65) 97 12/01/18 13:00 134/71 12/01/18 12:30 86 15 95/50 (65) 97 12/01/18 12:00 13.0 12/01/18 12:00 Non-Rebreather 15.0 12/01/18 12:00 88 12/01/18 12:00 98.8 87 18 93/53 (66) 100 12/01/18 11:30 90 18 115/58 (77) 100 12/01/18 11:00 98.3 93 17 97/51 (66) 100 12/01/18 10:33 105 12/01/18 09:02 105 20 130/64 100 Non-Rebreather 15.0 12/01/18 09:00 105 20 111/68 100 Non-Rebreather 15.0 12/01/18 09:00 Non-Rebreather 15.0 12/01/18 08:35 107 20 115/82 100 Non-Rebreather 15.0 12/01/18 08:35 115/82 Intake and Output 12/01/18 12/02/18 18:59 06:59 Intake Total 1180.0 ml 1675.833 ml Output Total 225 ml Balance 955.0 ml 1675.833 ml Intake Oral 0 ml Free Water 200 ml IV Total 870.0 ml 1465.833 ml Tube Feeding 110 ml 210 ml Output Urine Total 225 ml # Voids 620 785 # Bowel Movements 2 3 Laboratory Tests 12/01/18 10:35: Arterial Blood pH 7.412, Arterial Blood Partial Pressure CO2 33.7L, Arterial Blood Partial Pressure O2 160.8H, Arterial Blood HCO3 21.0L, Arterial Blood Oxygen Saturation 98.3, Arterial Blood Base Excess -3.2L, Renny Test Positive 12/01/18 11:13: Lactic Acid Level 3.20H, Troponin I 0.311H, C-Reactive Protein, Quantitative 6.8H 12/01/18 17:00: Lactic Acid Level 1.70, Troponin I 0.168H 12/02/18 02:11: Arterial Blood pH 7.256L, Arterial Blood Partial Pressure CO2 43.9, Arterial Blood Partial Pressure O2 81.4, Arterial Blood HCO3 19.1L, Arterial Blood Oxygen Saturation 93.5L, Arterial Blood Base Excess -7.6L, Renny Test Positive 12/02/18 03:58: Arterial Blood pH 7.410, Arterial Blood Partial Pressure CO2 31.3L, Arterial Blood Partial Pressure O2 210.1H, Arterial Blood HCO3 19.4L, Arterial Blood Oxygen Saturation 98.6, Arterial Blood Base Excess -4.6L, Renny Test Positive 12/02/18 04:05: White Blood Count 3.1L, Red Blood Count 2.45L, Hemoglobin 7.6L, Hematocrit 24.0L , Mean Corpuscular Volume 98, Mean Corpuscular Hemoglobin 30.9, Mean Corpuscular Hemoglobin Concent 31.5L, Red Cell Distribution Width 15.1H, Platelet Count 39L, Mean Platelet Volume 10.1, Neutrophils (%) (Auto) , Lymphocytes (%) (Auto) , Monocytes (%) (Auto) , Eosinophils (%) (Auto) , Basophils (%) (Auto) , Neutrophils % (Manual) [Pending], Lymphocytes % (Manual) [Pending], Platelet Estimate [Pending], Platelet Morphology [Pending], Sodium Level 148H, Potassium Level 2.8L, Chloride Level 117H, Carbon Dioxide Level 21, Anion Gap 10, Blood Urea Nitrogen 24H, Creatinine 0.8, Estimat Glomerular Filtration Rate , Glucose Level 157H, Hemoglobin A1c 6.4H, Uric Acid 3.0, Calcium Level 7.5L, Phosphorus Level 1.9L, Magnesium Level 1.7L, Iron Level 11L , Total Iron Binding Capacity 98L, Percent Iron Saturation 11L, Unsaturated Iron Binding 87L, Ferritin 517H, Total Bilirubin 0.5, Gamma Glutamyl Transpeptidase 55, Aspartate Amino Transf (AST/SGOT) 40H, Alanine Aminotransferase (ALT/SGPT) 31, Alkaline Phosphatase 94, Ammonia 47H, Total Creatine Kinase 77, Troponin I 0.309H, Pro-B-Type Natriuretic Peptide 4460H, Total Protein 5.5L, Albumin 1.6L, Globulin 3.9, Albumin/Globulin Ratio 0.4L, Triglycerides Level 69, Cholesterol Level 74, LDL Cholesterol 41, HDL Cholesterol 23L, Cholesterol/HDL Ratio 3.2L, Vitamin B12 Level 1774H, Folate 25.5, Thyroid Stimulating Hormone (TSH) 0.936 Height (Feet): 5 Height (Inches): 3.00 Weight (Pounds): 118 EENT: other - BIPAP Cardiovascular: tachycardia Respiratory/Chest: decreased breath sounds Abdomen: distended Parvez Bergman MD Dec 02, 2018 08:34
--- NOTE | 2018-12-02 08:42 | Pulmonolgy Critical Care Note ---
Critical Care - Asmt/Plan Problems: (1) S/P IVC filter (2) DVT (deep venous thrombosis) (3) Sepsis (4) UTI (urinary tract infection) (5) Pneumonia (6) Dehydration (7) Elevated troponin (8) Malnutrition (9) Hypokalemia (10) Hypernatremia (11) Encephalopathy due to metabolic factor or toxin (12) Dementia with behavioral disturbance (13) Thrombocytopenia (14) Anemia Respiratory: monitor respiratory rate, other - Titrate off BiPAP, change to PRN , PRN HHN's Cardiac: stop pressors, continue to monitor HR/BP, other - trend trop/ECG, F/U cards recs Renal: F/U I&O, keep IV fluid, check electrolytes Infectious Disease: check cultures, continue antibiotics Gastrointestinal: start feedings - once off BiPAP, other - F/u FOBT Endocrine: monitor blood sugar Hematologic: monitor H/H - Transfuse if < &, check FOBT Neurologic: keep patient comfortable - monitor MS Prophylaxis: Protonix Disposition: keep in ICU Time Spent (Minutes): 40 Notes Reviewed: dialysis biomed technician, cardio, renal, ID, GI Discussed with: nurses, consultants Critical Care - Objective Last 24 Hour Vital Signs Date Time Temp Pulse Resp B/P (MAP) Pulse Ox O2 Delivery O2 Flow Rate FiO2 12/02/18 07:00 90 13 101/50 (67) 100 12/02/18 06:00 99 23 91/45 (60) 100 12/02/18 05:50 103/50 12/02/18 05:09 125 18 99 Facial 60 12/02/18 05:03 99.1 12/02/18 05:00 99.1 113 23 122/68 (86) 100 12/02/18 04:00 99.6 134 19 115/76 (89) 100 12/02/18 04:00 120 12/02/18 04:00 100 12/02/18 04:00 Nasal Cannula 2.0 12/02/18 03:00 153 23 130/75 (93) 100 12/02/18 02:37 162 25 97 Facial 100 12/02/18 02:30 100 12/02/18 02:29 162 12/02/18 02:00 161 24 163/75 (104) 96 12/02/18 01:00 121 16 137/74 (95) 97 12/02/18 00:00 Nasal Cannula 2.0 12/02/18 00:00 123 12/02/18 00:00 122 17 150/77 (101) 97 12/02/18 00:00 2.0 12/01/18 23:00 98.9 126 17 140/76 (97) 98 12/01/18 22:00 126 17 135/68 (90) 97 12/01/18 21:36 97 Nasal Cannula 2.0 28 12/01/18 21:36 130 18 Nasal Cannula 2.0 28 12/01/18 21:36 Nasal Cannula 2.0 28 12/01/18 21:00 134 22 128/78 (95) 94 12/01/18 20:00 137 23 155/84 (107) 95 12/01/18 20:00 2.0 12/01/18 20:00 128 12/01/18 20:00 Nasal Cannula 2.0 12/01/18 19:30 98.7 120 24 150/70 (96) 94 12/01/18 19:00 128 23 155/70 (98) 95 12/01/18 18:30 124 22 147/81 (103) 95 12/01/18 18:00 125 23 119/68 (85) 95 12/01/18 17:30 127 23 146/70 (95) 94 12/01/18 17:00 124 22 121/101 (108) 94 12/01/18 16:30 125 23 126/57 (80) 92 12/01/18 16:00 Nasal Cannula 2.0 12/01/18 16:00 123 12/01/18 16:00 98.6 120 21 138/65 (89) 93 12/01/18 16:00 2.0 12/01/18 15:45 118 19 116/57 (76) 93 12/01/18 15:30 116 18 119/57 (77) 93 12/01/18 15:15 116 18 114/56 (75) 95 12/01/18 15:00 117 18 119/58 (78) 94 12/01/18 14:30 118 18 138/65 (89) 93 12/01/18 14:00 138/65 12/01/18 14:00 86 14 122/55 (77) 97 12/01/18 13:30 86 15 134/71 (92) 97 12/01/18 13:00 92 16 98/48 (65) 97 12/01/18 13:00 134/71 12/01/18 12:30 86 15 95/50 (65) 97 12/01/18 12:00 13.0 12/01/18 12:00 Non-Rebreather 15.0 12/01/18 12:00 88 12/01/18 12:00 98.8 87 18 93/53 (66) 100 12/01/18 11:30 90 18 115/58 (77) 100 12/01/18 11:00 98.3 93 17 97/51 (66) 100 12/01/18 10:33 105 12/01/18 09:02 105 20 130/64 100 Non-Rebreather 15.0 12/01/18 09:00 105 20 111/68 100 Non-Rebreather 15.0 12/01/18 09:00 Non-Rebreather 15.0 Status: obtunded Condition: critical Lungs: clear Heart: HR/BP stable Abdomen: soft, non-tender, active bowel sounds, feeding tube Extremities: no C/C/E Decubiti: location - sacral, stage - d Micro: Microbiology Date/Time Source Procedure Growth Status 12/01/18 00:20 Blood Blood Culture - Preliminary NO GROWTH AFTER 24 HOURS Resulted 12/01/18 00:05 Blood Blood Culture - Preliminary NO GROWTH AFTER 24 HOURS Resulted 12/01/18 00:31 Nasal Nares Influenza Types A,B Antigen (KYLE) - Final Complete 12/01/18 00:47 Urine,Clean Catch Urine Culture - Preliminary Gram Negative Bacillus 1 Resulted 12/01/18 00:47 Sacral Wound Gram Stain - Final Resulted 12/01/18 00:47 Wound Culture - Preliminary Gram Negative Bacillus 1 Resulted 12/01/18 00:20 Rectum Received Accucheck: 155 Blood Sugars: BS controlled Critical Care - Subjective ROS Limited/Unobtainable: Yes ICU Day: 2 Intubation Day: BiPAP Condition: critical IV Access: central EKG Rhythm: Sinus Rhythm FI02: 60 Sputum Amount: None Fluids: D5NS@100 Drips: NE off Tube Feeding Amount: 30 I&O: Intake and Output 12/01/18 12/02/18 18:59 06:59 Intake Total 1180.0 ml 1675.833 ml Output Total 225 ml Balance 955.0 ml 1675.833 ml Intake Oral 0 ml Free Water 200 ml IV Total 870.0 ml 1465.833 ml Tube Feeding 110 ml 210 ml Output Urine Total 225 ml # Voids 620 785 # Bowel Movements 2 3 Subjective: DONG Labs: Laboratory Tests Test 12/01/18 10:35 12/01/18 11:13 12/01/18 17:00 12/02/18 02:11 Arterial Blood pH 7.412 (7.350-7.450) 7.256 (7.350-7.450) Arterial Blood Partial Pressure CO2 33.7 mmHg (35.0-45.0) L 43.9 mmHg (35.0-45.0) Arterial Blood Partial Pressure O2 160.8 mmHg (75.0-100.0) H 81.4 mmHg (75.0-100.0) Arterial Blood HCO3 21.0 mmol/L (22.0-26.0) L 19.1 mmol/L (22.0-26.0) L Arterial Blood Oxygen Saturation 98.3 % (95-100) 93.5 % (95-100) L Arterial Blood Base Excess -3.2 (-2-2) L -7.6 (-2-2) L Renny Test Positive Positive Lactic Acid Level 3.20 mmol/L (0.4-2.0) H 1.70 mmol/L (0.4-2.0) Troponin I 0.311 ng/mL (0.000-0.056) 0.168 ng/mL (0.000-0.056) C-Reactive Protein, Quantitative 6.8 mg/dL (0.00-0.90) H Test 12/02/18 03:58 12/02/18 04:05 Arterial Blood pH 7.410 (7.350-7.450) Arterial Blood Partial Pressure CO2 31.3 mmHg (35.0-45.0) L Arterial Blood Partial Pressure O2 210.1 mmHg (75.0-100.0) H Arterial Blood HCO3 19.4 mmol/L (22.0-26.0) L Arterial Blood Oxygen Saturation 98.6 % (95-100) Arterial Blood Base Excess -4.6 (-2-2) L Renny Test Positive White Blood Count 3.1 K/UL (4.8-10.8) L Red Blood Count 2.45 M/UL (4.20-5.40) L Hemoglobin 7.6 G/DL (12.0-16.0) L Hematocrit 24.0 % (37.0-47.0) L Mean Corpuscular Volume 98 FL (80-99) Mean Corpuscular Hemoglobin 30.9 PG (27.0-31.0) Mean Corpuscular Hemoglobin Concent 31.5 G/DL (32.0-36.0) L Red Cell Distribution Width 15.1 % (11.6-14.8) H Platelet Count 39 K/UL (150-450) L Mean Platelet Volume 10.1 FL (6.5-10.1) Neutrophils (%) (Auto) % (45.0-75.0) Lymphocytes (%) (Auto) % (20.0-45.0) Monocytes (%) (Auto) % (1.0-10.0) Eosinophils (%) (Auto) % (0.0-3.0) Basophils (%) (Auto) % (0.0-2.0) Neutrophils % (Manual) Pending Lymphocytes % (Manual) Pending Platelet Estimate Pending Platelet Morphology Pending Sodium Level 148 MMOL/L (136-145) H Potassium Level 2.8 MMOL/L (3.5-5.1) L Chloride Level 117 MMOL/L (98-107) H Carbon Dioxide Level 21 MMOL/L (21-32) Anion Gap 10 mmol/L (5-15) Blood Urea Nitrogen 24 mg/dL (7-18) H Creatinine 0.8 MG/DL (0.55-1.30) Estimat Glomerular Filtration Rate mL/min (>60) Glucose Level 157 MG/DL (74-106) H Hemoglobin A1c 6.4 % (4.3-6.0) H Uric Acid 3.0 MG/DL (2.6-7.2) Calcium Level 7.5 MG/DL (8.5-10.1) L Phosphorus Level 1.9 MG/DL (2.5-4.9) L Magnesium Level 1.7 MG/DL (1.8-2.4) L Iron Level 11 ug/dL (50-175) L Total Iron Binding Capacity 98 ug/dL (250-450) L Percent Iron Saturation 11 % (15-50) L Unsaturated Iron Binding 87 ug/dL (112-346) L Ferritin 517 NG/ML (8-388) H Total Bilirubin 0.5 MG/DL (0.2-1.0) Gamma Glutamyl Transpeptidase 55 U/L (5-85) Aspartate Amino Transf (AST/SGOT) 40 U/L (15-37) H Alanine Aminotransferase (ALT/SGPT) 31 U/L (12-78) Alkaline Phosphatase 94 U/L (46-116) Ammonia 47 umol/L (11-32) H Total Creatine Kinase 77 U/L (26-308) Troponin I 0.309 ng/mL (0.000-0.056) Pro-B-Type Natriuretic Peptide 4460 pg/mL (0-125) H Total Protein 5.5 G/DL (6.4-8.2) L Albumin 1.6 G/DL (3.4-5.0) L Globulin 3.9 g/dL Albumin/Globulin Ratio 0.4 (1.0-2.7) L Triglycerides Level 69 MG/DL (30-150) Cholesterol Level 74 MG/DL (< 200) LDL Cholesterol 41 mg/dL (<100) HDL Cholesterol 23 MG/DL (40-60) L Cholesterol/HDL Ratio 3.2 (3.3-4.4) L Vitamin B12 Level 1774 PG/ML (193-986) H Folate 25.5 NG/ML (8.6-58.9) Thyroid Stimulating Hormone (TSH) 0.936 uiU/mL (0.358-3.740) Foreign Parekh MD Dec 02, 2018 08:42
--- NOTE | 2018-12-02 08:43 | NUR ---
NURSE NOTES: Electrolytes replaced by Dr Bergman. Dr Parekh aware of Hgb and does not wish to give transfusion at this time.
[2018-12-02] MEDS ORDERED: Metoprolol 25mg tab ORAL SCH (09:00)
--- NOTE | 2018-12-02 09:30 | NUR ---
NURSE NOTES: Patient VS stable at this time with no sign of acute distress. patient is on BiPAP 12/5 at 50% FiO2 at this time. Will wean as tolerated. Patient bed in low position with bed alarm on and call light in reach at this time.
[2018-12-02] MEDS ORDERED: Potassium Phosphate 30 MM in NS 275 ML IV ONE (10:00)
--- NOTE | 2018-12-02 10:25 | General Progress Note ---
Assessment/Plan Problem List: (1) Feeding by G-tube ICD Codes: Z93.1 - Gastrostomy status SNOMED: 586912223, 415723497, 596713904 (2) S/P IVC filter ICD Codes: Z95.828 - Presence of other vascular implants and grafts SNOMED: 63061399, 443170399, 409181851 (3) Sepsis ICD Codes: A41.9 - Sepsis, unspecified organism SNOMED: 11752478 Qualifiers: Qualified Codes: A41.9 - Sepsis, unspecified organism (4) Anemia ICD Codes: D64.9 - Anemia, unspecified SNOMED: 409256717 (5) Thrombocytopenia ICD Codes: D69.6 - Thrombocytopenia, unspecified SNOMED: 126801384 (6) Dementia with behavioral disturbance ICD Codes: F03.91 - Unspecified dementia with behavioral disturbance SNOMED: 7628782479578 Assessment/Plan GTF on hold patient on BIPAP has been tachycardic over night fu labs abx per ID supportive care fu Subjective ROS Limited/Unobtainable: No Allergies: Coded Allergies: No Known Allergies (Unverified , 07/26/18) Objective Last 24 Hour Vital Signs Date Time Temp Pulse Resp B/P (MAP) Pulse Ox O2 Delivery O2 Flow Rate FiO2 12/02/18 10:00 90 12 130/69 (89) 100 12/02/18 09:00 92 13 121/56 (77) 100 12/02/18 09:00 92 23 97 Facial 50 12/02/18 08:00 Nasal Cannula 2.0 12/02/18 08:00 98.6 82 13 99/53 (68) 100 12/02/18 08:00 50 12/02/18 07:00 90 13 101/50 (67) 100 12/02/18 06:35 100 Bi-pap 60 12/02/18 06:35 Bi-pap 60 12/02/18 06:35 90 20 100 Facial 60 12/02/18 06:00 99 23 91/45 (60) 100 12/02/18 05:50 103/50 12/02/18 05:09 125 18 99 Facial 60 12/02/18 05:03 99.1 12/02/18 05:00 99.1 113 23 122/68 (86) 100 12/02/18 04:00 99.6 134 19 115/76 (89) 100 12/02/18 04:00 120 12/02/18 04:00 100 12/02/18 04:00 Nasal Cannula 2.0 12/02/18 03:00 153 23 130/75 (93) 100 12/02/18 02:37 162 25 97 Facial 100 12/02/18 02:30 100 12/02/18 02:29 162 12/02/18 02:00 161 24 163/75 (104) 96 12/02/18 01:00 121 16 137/74 (95) 97 12/02/18 00:00 Nasal Cannula 2.0 12/02/18 00:00 123 12/02/18 00:00 122 17 150/77 (101) 97 12/02/18 00:00 2.0 12/01/18 23:00 98.9 126 17 140/76 (97) 98 12/01/18 22:00 126 17 135/68 (90) 97 12/01/18 21:36 97 Nasal Cannula 2.0 28 12/01/18 21:36 130 18 Nasal Cannula 2.0 28 12/01/18 21:36 Nasal Cannula 2.0 28 12/01/18 21:00 134 22 128/78 (95) 94 12/01/18 20:00 137 23 155/84 (107) 95 12/01/18 20:00 2.0 12/01/18 20:00 128 12/01/18 20:00 Nasal Cannula 2.0 12/01/18 19:30 98.7 120 24 150/70 (96) 94 12/01/18 19:00 128 23 155/70 (98) 95 12/01/18 18:30 124 22 147/81 (103) 95 12/01/18 18:00 125 23 119/68 (85) 95 12/01/18 17:30 127 23 146/70 (95) 94 12/01/18 17:00 124 22 121/101 (108) 94 12/01/18 16:30 125 23 126/57 (80) 92 12/01/18 16:00 Nasal Cannula 2.0 12/01/18 16:00 123 12/01/18 16:00 98.6 120 21 138/65 (89) 93 12/01/18 16:00 2.0 12/01/18 15:45 118 19 116/57 (76) 93 12/01/18 15:30 116 18 119/57 (77) 93 12/01/18 15:15 116 18 114/56 (75) 95 12/01/18 15:00 117 18 119/58 (78) 94 12/01/18 14:30 118 18 138/65 (89) 93 12/01/18 14:00 138/65 12/01/18 14:00 86 14 122/55 (77) 97 12/01/18 13:30 86 15 134/71 (92) 97 12/01/18 13:00 92 16 98/48 (65) 97 12/01/18 13:00 134/71 12/01/18 12:30 86 15 95/50 (65) 97 12/01/18 12:00 13.0 12/01/18 12:00 Non-Rebreather 15.0 12/01/18 12:00 88 12/01/18 12:00 98.8 87 18 93/53 (66) 100 12/01/18 11:30 90 18 115/58 (77) 100 12/01/18 11:00 98.3 93 17 97/51 (66) 100 12/01/18 10:33 105 Intake and Output 12/01/18 12/02/18 19:00 07:00 Intake Total 1310.0 ml 1673.333 ml Output Total 225 ml Balance 1085.0 ml 1673.333 ml Intake Oral 0 ml Free Water 200 ml IV Total 970.0 ml 1493.333 ml Tube Feeding 140 ml 180 ml Output Urine Total 225 ml # Voids 670 785 # Bowel Movements 2 3 Laboratory Tests 12/01/18 10:35: Arterial Blood pH 7.412, Arterial Blood Partial Pressure CO2 33.7L, Arterial Blood Partial Pressure O2 160.8H, Arterial Blood HCO3 21.0L, Arterial Blood Oxygen Saturation 98.3, Arterial Blood Base Excess -3.2L, Renny Test Positive 12/01/18 11:13: Lactic Acid Level 3.20H, Troponin I 0.311H, C-Reactive Protein, Quantitative 6.8H 12/01/18 17:00: Lactic Acid Level 1.70, Troponin I 0.168H 12/02/18 02:11: Arterial Blood pH 7.256L, Arterial Blood Partial Pressure CO2 43.9, Arterial Blood Partial Pressure O2 81.4, Arterial Blood HCO3 19.1L, Arterial Blood Oxygen Saturation 93.5L, Arterial Blood Base Excess -7.6L, Renny Test Positive 12/02/18 03:58: Arterial Blood pH 7.410, Arterial Blood Partial Pressure CO2 31.3L, Arterial Blood Partial Pressure O2 210.1H, Arterial Blood HCO3 19.4L, Arterial Blood Oxygen Saturation 98.6, Arterial Blood Base Excess -4.6L, Renny Test Positive 12/02/18 04:05: White Blood Count 3.1L, Red Blood Count 2.45L, Hemoglobin 7.6L, Hematocrit 24.0L , Mean Corpuscular Volume 98, Mean Corpuscular Hemoglobin 30.9, Mean Corpuscular Hemoglobin Concent 31.5L, Red Cell Distribution Width 15.1H, Platelet Count 39L, Mean Platelet Volume 10.1, Neutrophils (%) (Auto) , Lymphocytes (%) (Auto) , Monocytes (%) (Auto) , Eosinophils (%) (Auto) , Basophils (%) (Auto) , Differential Total Cells Counted 100, Neutrophils % ( Manual) 82H, Lymphocytes % (Manual) 1L, Monocytes % (Manual) 4, Eosinophils % ( Manual) 0, Basophils % (Manual) 0, Band Neutrophils 13H, Platelet Estimate DecreasedL, Platelet Morphology Normal, Hypochromasia 1+, Anisocytosis 1+, Sodium Level 148H, Potassium Level 2.8L, Chloride Level 117H, Carbon Dioxide Level 21, Anion Gap 10, Blood Urea Nitrogen 24H, Creatinine 0.8, Estimat Glomerular Filtration Rate , Glucose Level 157H, Hemoglobin A1c 6.4H, Uric Acid 3.0, Calcium Level 7.5L, Phosphorus Level 1.9L, Magnesium Level 1.7L, Iron Level 11L, Total Iron Binding Capacity 98L, Percent Iron Saturation 11L, Unsaturated Iron Binding 87L, Ferritin 517H, Total Bilirubin 0.5, Gamma Glutamyl Transpeptidase 55, Aspartate Amino Transf (AST/SGOT) 40H, Alanine Aminotransferase (ALT/SGPT) 31, Alkaline Phosphatase 94, Ammonia 47H, Total Creatine Kinase 77, Troponin I 0.309H, Pro-B-Type Natriuretic Peptide 4460H, Total Protein 5.5L, Albumin 1.6L, Globulin 3.9, Albumin/Globulin Ratio 0.4L, Triglycerides Level 69, Cholesterol Level 74, LDL Cholesterol 41, HDL Cholesterol 23L, Cholesterol/HDL Ratio 3.2L, Vitamin B12 Level 1774H, Folate 25.5, Thyroid Stimulating Hormone (TSH) 0.936 Height (Feet): 5 Height (Inches): 3.00 Weight (Pounds): 118 General Appearance: lethargic EENT: normal ENT inspection Neck: supple Cardiovascular: tachycardia Respiratory/Chest: decreased breath sounds Abdomen: normal bowel sounds, non tender, soft Extremities: non-tender Edwardo Argueta MD Dec 02, 2018 10:25
--- NOTE | 2018-12-02 11:02 | NUR ---
NURSE NOTES: Patient failed ventilator weaning with pressure support of 10. Patient respiratory rate increased to 42 and he had heavy accessory muscle use. Dr Duong notified and ordered patient to be weaned with pressure support 15. Will allow patient to rest and recover and then attempt to wean again. Addendum: 12/03/18 at 0755 by Maria Teresa Gonzalez RN Disregard this note. This was meant for another patient.
--- NOTE | 2018-12-02 11:07 | NUR ---
RD ASSESSMENT & RECOMMENDATIONS SEE CARE ACTIVITY FOR COMPLETE ASSESSMENT DAILY ESTIMATED NEEDS: Needs based on Wound, underweight/ 44.5kg 30-37 kcals/kg 1335-1646kcal total kcals 1.25-1.5 g protein/kg 56-67 g total protein 25-30 mL/kg 5159-0867 total fluid mLs NUTRITION DIAGNOSIS: 1) Increased kcal and protein needs R/T underweight status and wound healing as evidenced by pt w/ generalized moderate wasting, @ 89% IBW w/ underweight BMI per guidelines, admitted w/ sacral open wound, pending eval. 2) Swallowing difficulty R/T dysphagia as evidenced by pt is PEG dep. CURRENT TF:NPO ENTERAL NUTRITION RECOMMENDATIONS: Glucerna 1.2 @55ml/hr x24 hrs to provide 1320ml, 1584 kcal, 79g prot, 1063ml free fluid * As medically appropriate, resume TF * Initiate Glucerna 1.2 @ 25mlh/r x 6 hrs, advance 10ml q 4-6 hrs as tolerated to goal rate. * Flush per MD/ HOB over 30 degrees ADDITIONAL RECOMMENDATIONS: * Per [facility]: ht=62", wt=98lbs on 11/16/18 * Re-calibrate bedscale wt, rec weekly wt monitoring * Wound healing: Add Timbo 1pkt BID, f/up w/ WC eval * Check lytes daily, replete as needed (low K, phos, mag) . . .
--- NOTE | 2018-12-02 11:17 | NUR ---
NURSE NOTES: Maddison from lab reported positive blood culture x 4 bottles with gram negative rods. Will notify Dr Card.
--- NOTE | 2018-12-02 11:20 | NUR ---
RESPIRATORY NOTE: Took pt off Bipap per MD's order. Pt is on Venturi mask 10L 45%FiO2, saturates at 95-96%. No SOB or resp distress noted. DONIS Morel made aware.
--- NOTE | 2018-12-02 11:21 | NUR ---
NURSE NOTES: Patient taken off of BiPAP at this time. Patient is now on Venturi Mask at 45% and 10L. Patient tolerating with oxygen saturation of 98-99%.
--- NOTE | 2018-12-02 11:31 | NUR ---
NURSE NOTES: Dr Card notified regarding positive blood culture. No new orders at this time.
--- NOTE | 2018-12-02 11:39 | Diagnostic Imaging Report ---
Indication: Dyspnea Comparison: 12/01/2018 A single view chest radiograph was obtained. Findings: Heart size is probably normal. There is a vascular prominence and suggestion of mild interstitial edema. Correlate clinically. Density at the left lung base silhouetting out the left hemidiaphragm may be due to a pleural effusion. Bones are osteopenic. IMPRESSION: Suspected CHF. Possible left pleural effusion
--- NOTE | 2018-12-02 12:30 | NUR ---
NURSE NOTES: Feeding resumed per Dr Parekh. Patient started on Vital AF 1.2 at 20mL/hr. Goal is 60mL/hr. Will increase every 4-6hours as tolerated.
--- NOTE | 2018-12-02 12:30 | NUR ---
NURSE NOTES: 11am Magnesium and potassium IV medications administered late because previous bags were still running at time of administration.
--- NOTE | 2018-12-02 13:19 | Infectious Diseases Prog Note ---
Assessment/Plan Assessment/Plan A: 1. Gram negative Sepsis with septic shock. improving 2. urinary tract infection. 3. Atelectasis on chest x-ray, may have underlying pneumonia. 4. Diabetes mellitus type 2. 5. Dementia. 6. Pancytopenia. RECOMMENDATION: 1. We will continue with current antibiotic, vancomycin and Zosyn. 2. will follow up the cultures. Subjective ROS Limited/Unobtainable: Yes Constitutional: Reports: other - no fever Cardiovascular: Reports: other - off of Levophed Allergies: Coded Allergies: No Known Allergies (Unverified , 07/26/18) Objective Vital Signs Last 24 Hour Vital Signs Date Time Temp Pulse Resp B/P (MAP) Pulse Ox O2 Delivery O2 Flow Rate FiO2 12/02/18 12:00 10.0 45 12/02/18 12:00 Venturi Mask 10.0 12/02/18 12:00 101 12/02/18 11:20 101 17 95 12/02/18 11:00 86 11 130/58 (82) 100 12/02/18 10:00 90 12 130/69 (89) 100 12/02/18 09:00 92 13 121/56 (77) 100 12/02/18 09:00 92 23 97 Facial 50 12/02/18 08:00 Bi-pap 12/02/18 08:00 98.6 82 13 99/53 (68) 100 12/02/18 08:00 50 12/02/18 08:00 99 12/02/18 07:00 90 13 101/50 (67) 100 12/02/18 06:35 100 Bi-pap 60 12/02/18 06:35 Bi-pap 60 12/02/18 06:35 90 20 100 Facial 60 12/02/18 06:00 99 23 91/45 (60) 100 12/02/18 05:50 103/50 12/02/18 05:09 125 18 99 Facial 60 12/02/18 05:03 99.1 12/02/18 05:00 99.1 113 23 122/68 (86) 100 12/02/18 04:00 99.6 134 19 115/76 (89) 100 12/02/18 04:00 120 12/02/18 04:00 100 12/02/18 04:00 Nasal Cannula 2.0 12/02/18 03:00 153 23 130/75 (93) 100 12/02/18 02:37 162 25 97 Facial 100 12/02/18 02:30 100 12/02/18 02:29 162 12/02/18 02:00 161 24 163/75 (104) 96 12/02/18 01:00 121 16 137/74 (95) 97 12/02/18 00:00 Nasal Cannula 2.0 12/02/18 00:00 123 12/02/18 00:00 122 17 150/77 (101) 97 12/02/18 00:00 2.0 12/01/18 23:00 98.9 126 17 140/76 (97) 98 12/01/18 22:00 126 17 135/68 (90) 97 12/01/18 21:36 97 Nasal Cannula 2.0 28 12/01/18 21:36 130 18 Nasal Cannula 2.0 28 12/01/18 21:36 Nasal Cannula 2.0 28 12/01/18 21:00 134 22 128/78 (95) 94 12/01/18 20:00 137 23 155/84 (107) 95 12/01/18 20:00 2.0 12/01/18 20:00 128 12/01/18 20:00 Nasal Cannula 2.0 12/01/18 19:30 98.7 120 24 150/70 (96) 94 12/01/18 19:00 128 23 155/70 (98) 95 12/01/18 18:30 124 22 147/81 (103) 95 12/01/18 18:00 125 23 119/68 (85) 95 12/01/18 17:30 127 23 146/70 (95) 94 12/01/18 17:00 124 22 121/101 (108) 94 12/01/18 16:30 125 23 126/57 (80) 92 12/01/18 16:00 Nasal Cannula 2.0 12/01/18 16:00 123 12/01/18 16:00 98.6 120 21 138/65 (89) 93 12/01/18 16:00 2.0 12/01/18 15:45 118 19 116/57 (76) 93 12/01/18 15:30 116 18 119/57 (77) 93 12/01/18 15:15 116 18 114/56 (75) 95 12/01/18 15:00 117 18 119/58 (78) 94 12/01/18 14:30 118 18 138/65 (89) 93 12/01/18 14:00 138/65 12/01/18 14:00 86 14 122/55 (77) 97 12/01/18 13:30 86 15 134/71 (92) 97 Height (Feet): 5 Height (Inches): 3.00 Weight (Pounds): 118 HEENT: mucous membranes moist Respiratory/Chest: lungs clear, decreased breath sounds, other - Oxygen by mask Cardiovascular: tachycardia, other - R feoral line Abdomen: soft, non tender, other - GT feeding Extremities: no edema Neurologic/Psychiatric: unresponsiveness Microbiology Date/Time Source Procedure Growth Status 12/01/18 00:20 Blood Blood Culture - Preliminary Resulted 12/01/18 00:05 Blood Blood Culture - Preliminary Resulted 12/01/18 00:31 Nasal Nares Influenza Types A,B Antigen (KYLE) - Final Complete 12/01/18 00:47 Urine,Clean Catch Urine Culture - Preliminary Gram Negative Bacillus 1 Resulted 12/01/18 00:47 Sacral Wound Gram Stain - Final Resulted 12/01/18 00:47 Wound Culture - Preliminary Gram Negative Bacillus 1 Resulted 12/01/18 00:20 Rectum Received Laboratory Tests Test 12/01/18 17:00 12/02/18 02:11 12/02/18 03:58 12/02/18 04:05 Lactic Acid Level 1.70 mmol/L (0.4-2.0) Troponin I 0.168 ng/mL (0.000-0.056) 0.309 ng/mL (0.000-0.056) Arterial Blood pH 7.256 (7.350-7.450) 7.410 (7.350-7.450) Arterial Blood Partial Pressure CO2 43.9 mmHg (35.0-45.0) 31.3 mmHg (35.0-45.0) L Arterial Blood Partial Pressure O2 81.4 mmHg (75.0-100.0) 210.1 mmHg (75.0-100.0) H Arterial Blood HCO3 19.1 mmol/L (22.0-26.0) L 19.4 mmol/L (22.0-26.0) L Arterial Blood Oxygen Saturation 93.5 % (95-100) L 98.6 % (95-100) Arterial Blood Base Excess -7.6 (-2-2) L -4.6 (-2-2) L Renny Test Positive Positive White Blood Count 3.1 K/UL (4.8-10.8) L Red Blood Count 2.45 M/UL (4.20-5.40) L Hemoglobin 7.6 G/DL (12.0-16.0) L Hematocrit 24.0 % (37.0-47.0) L Mean Corpuscular Volume 98 FL (80-99) Mean Corpuscular Hemoglobin 30.9 PG (27.0-31.0) Mean Corpuscular Hemoglobin Concent 31.5 G/DL (32.0-36.0) L Red Cell Distribution Width 15.1 % (11.6-14.8) H Platelet Count 39 K/UL (150-450) L Mean Platelet Volume 10.1 FL (6.5-10.1) Neutrophils (%) (Auto) % (45.0-75.0) Lymphocytes (%) (Auto) % (20.0-45.0) Monocytes (%) (Auto) % (1.0-10.0) Eosinophils (%) (Auto) % (0.0-3.0) Basophils (%) (Auto) % (0.0-2.0) Differential Total Cells Counted 100 Neutrophils % (Manual) 82 % (45-75) H Lymphocytes % (Manual) 1 % (20-45) L Monocytes % (Manual) 4 % (1-10) Eosinophils % (Manual) 0 % (0-3) Basophils % (Manual) 0 % (0-2) Band Neutrophils 13 % (0-8) H Platelet Estimate Decreased L Platelet Morphology Normal Hypochromasia 1+ Anisocytosis 1+ Sodium Level 148 MMOL/L (136-145) H Potassium Level 2.8 MMOL/L (3.5-5.1) L Chloride Level 117 MMOL/L (98-107) H Carbon Dioxide Level 21 MMOL/L (21-32) Anion Gap 10 mmol/L (5-15) Blood Urea Nitrogen 24 mg/dL (7-18) H Creatinine 0.8 MG/DL (0.55-1.30) Estimat Glomerular Filtration Rate mL/min (>60) Glucose Level 157 MG/DL (74-106) H Hemoglobin A1c 6.4 % (4.3-6.0) H Uric Acid 3.0 MG/DL (2.6-7.2) Calcium Level 7.5 MG/DL (8.5-10.1) L Phosphorus Level 1.9 MG/DL (2.5-4.9) L Magnesium Level 1.7 MG/DL (1.8-2.4) L Iron Level 11 ug/dL (50-175) L Total Iron Binding Capacity 98 ug/dL (250-450) L Percent Iron Saturation 11 % (15-50) L Unsaturated Iron Binding 87 ug/dL (112-346) L Ferritin 517 NG/ML (8-388) H Total Bilirubin 0.5 MG/DL (0.2-1.0) Gamma Glutamyl Transpeptidase 55 U/L (5-85) Aspartate Amino Transf (AST/SGOT) 40 U/L (15-37) H Alanine Aminotransferase (ALT/SGPT) 31 U/L (12-78) Alkaline Phosphatase 94 U/L (46-116) Ammonia 47 umol/L (11-32) H Total Creatine Kinase 77 U/L (26-308) Pro-B-Type Natriuretic Peptide 4460 pg/mL (0-125) H Total Protein 5.5 G/DL (6.4-8.2) L Albumin 1.6 G/DL (3.4-5.0) L Globulin 3.9 g/dL Albumin/Globulin Ratio 0.4 (1.0-2.7) L Triglycerides Level 69 MG/DL (30-150) Cholesterol Level 74 MG/DL (< 200) LDL Cholesterol 41 mg/dL (<100) HDL Cholesterol 23 MG/DL (40-60) L Cholesterol/HDL Ratio 3.2 (3.3-4.4) L Vitamin B12 Level 1774 PG/ML (193-986) H Folate 25.5 NG/ML (8.6-58.9) Thyroid Stimulating Hormone (TSH) 0.936 uiU/mL (0.358-3.740) Current Medications Medications (Trade) Dose Ordered Sig/Laure Route PRN Reason Start Time Stop Time Status Last Admin Dose Admin Acetaminophen (Tylenol) 650 mg Q4HR PRN NG Mild Pain/Temp > 100.5 12/02/18 04:15 01/01/19 04:14 12/02/18 04:33 Albuterol/ Ipratropium (Albuterol/ Ipratropium) 3 ml Q4H PRN HHN Shortness of Breath 12/01/18 10:15 12/06/18 10:14 Chlorhexidine Gluconate (Georgina-Hex 2%) 1 applic DAILY@2000 TOPIC 12/01/18 20:00 12/31/18 19:59 12/01/18 19:57 Dextrose (Dextrose 50%) 25 ml Q30M PRN IV Hypoglycemia 12/01/18 12:30 12/31/18 12:29 Dextrose (Dextrose 50%) 50 ml Q30M PRN IV Hypoglycemia 12/01/18 12:30 12/31/18 12:29 Dextrose/Sodium Chloride 1,000 ml @ 100 mls/hr Q10H IV 12/01/18 10:15 12/31/18 10:14 12/02/18 05:48 Insulin Aspart (NovoLOG) Q6HR SUBQ 12/01/18 18:00 12/31/18 17:59 12/02/18 12:42 Norepinephrine Bitartrate 4 mg/ Dextrose 250 ml @ 0 mls/hr Q24H IV 12/01/18 06:30 12/31/18 06:29 12/01/18 06:43 Ondansetron HCl (Zofran) 4 mg Q6H PRN IVP Nausea & Vomiting 12/01/18 10:15 12/31/18 10:14 Piperacillin Sod/ Tazobactam Sod 3.375 gm/Dextrose 110 ml @ 27.5 mls/hr EVERY 8 HOURS IVPB 12/01/18 14:00 12/06/18 13:59 12/02/18 05:48 Potassium Phosphate 30 mm/ Sodium Chloride 285 ml @ 47.5 mls/hr ONCE ONCE IV 12/02/18 10:00 12/02/18 15:59 12/02/18 10:39 Vancomycin HCl (Vanco rx to dose) 1 ea DAILY PRN MISC Per rx protocol 12/01/18 10:15 12/31/18 10:14 Vancomycin HCl 750 mg/Sodium Chloride 275 ml @ 183.333 mls/hr Q24H IVPB 12/02/18 05:00 12/07/18 04:59 12/02/18 04:33 Shimon Card MD Dec 02, 2018 13:19
--- NOTE | 2018-12-02 13:30 | NUR ---
NURSE NOTES: Patient VS stable at this time with no sign of acute distress. Patient remains on Venturi mask at 45% FiO2 at this time. Patient bed in low position with bed alarm on and call light in reach at this time. Patient tolerating G tube feeding of Vital AF at 20mL/hr at this time.
--- NOTE | 2018-12-02 15:30 | NUR ---
NURSE NOTES: Patient VS stable at this time with no sign of acute distress. Patient remains on Venturi mask at 45% FiO2 at this time with saturation of 96% at this time an no sign of acute respiratory distress. Patient bed in low position with bed alarm on and call light in reach at this time. Patient tolerating G tube feeding of Vital AF at 20mL/hr at this time.
--- NOTE | 2018-12-02 15:58 | NUR ---
NURSE NOTES:WOUND CARE NOTES:Pt presents on admission with Partial thickness pressure injury to sacrum with scattered purple areas throughout base of wound. Wound bed is moist with small amt of sanguineous exudate noted.Erythema with maceration along borders.Periwound without erythema or induration.(L)7cm x (W)8cm. Non-blanchable erythema without fluctuance both heels. No other areas of skin concerns noted. Recommendations:Apply Moisture Barrier Paste to buttocks. Cover with Optifoam drsg. Change every 3 days and prn. Apply Cavilon Skin Barrier Both heels. Cover with Optifoam drsg.Change every 7 days and prn. APM/THEA mattress. Reposition at least every 2 hours or as tolerated. Off-load heels with pillow.
[2018-12-02] MEDS ORDERED: Nitroglycerin Patch 0.4mg TDERMAL SCH (16:00)
--- NOTE | 2018-12-02 16:58 | Consultation ---
History of Present Illness General Date patient seen: Dec 01, 2018 Chief Complaint: Altered Mental Status Present Illness Allergies: Coded Allergies: No Known Allergies (Unverified , 07/26/18) Medication History Scheduled Amlodipine Besylate* (Amlodipine Besylate*), 10 MG ORAL DAILY, (Reported) Aspirin Ec* (Aspirin Ec*), 81 MG ORAL DAILY, (Reported) Atorvastatin Calcium* (Atorvastatin Calcium*), 20 MG ORAL BEDTIME, (Reported) Clonazepam* (Klonopin*), 0.5 MG ORAL BID, (Reported) Multivit-Min/Iron Fum/Folic AC (Auauh-Uvpmyew-Qpkxfyaq Tablet), 1 EACH PO DAILY, (Reported) Potassium Chloride* (K-Dur*), 20 MEQ ORAL DAILY, (Reported) Quetiapine Fumarate* (Seroquel*), 25 MG ORAL BID, (Reported) Sennosides (Senna), 8.6 MG PO QHS, (Reported) Scheduled PRN Acetaminophen* (Acetaminophen 325MG Tablet*), 650 MG ORAL Q4H PRN for Fever/ Headache/Mild Pain, (Reported) Clonidine Hcl* (Catapres*), 0.1 MG ORAL EVERY 4 HOURS PRN for For High Blood Pressure, (Reported) Magnesium Hydroxide* (Milk Of Magnesia*), 30 ML ORAL DAILY PRN for Constipation, (Reported) Ondansetron* (Zofran*), 4 MG ORAL Q4HR PRN for Nausea & Vomiting, (Reported) [mylanta max strength], 15 ML PO Q6HR PRN for dyspepsia, (Reported) Miscellaneous Medications Ferrous Sulfate (Ferrousul), 325 MG GT, (Reported) Insulin Lispro (Humalog), 0 SUBQ, (Reported) [lispro ss], (Reported) Patient History Healthcare decision maker Resuscitation status Advanced Directive on File Physical Exam Last 24 Hour Vital Signs Date Time Temp Pulse Resp B/P (MAP) Pulse Ox O2 Delivery O2 Flow Rate FiO2 12/02/18 15:39 145/72 12/02/18 15:00 100 15 145/72 (96) 96 12/02/18 14:00 96 13 135/64 (87) 96 12/02/18 13:00 89 12 103/53 (70) 97 12/02/18 12:00 97.8 96 12 120/59 (79) 95 12/02/18 12:00 10.0 45 12/02/18 12:00 Venturi Mask 10.0 12/02/18 12:00 101 12/02/18 11:20 101 17 95 12/02/18 11:00 86 11 130/58 (82) 100 12/02/18 10:00 90 12 130/69 (89) 100 12/02/18 09:00 92 13 121/56 (77) 100 12/02/18 09:00 92 23 97 Facial 50 12/02/18 08:00 Bi-pap 12/02/18 08:00 98.6 82 13 99/53 (68) 100 12/02/18 08:00 50 12/02/18 08:00 99 12/02/18 07:00 90 13 101/50 (67) 100 12/02/18 06:35 100 Bi-pap 60 12/02/18 06:35 Bi-pap 60 12/02/18 06:35 90 20 100 Facial 60 12/02/18 06:00 99 23 91/45 (60) 100 12/02/18 05:50 103/50 12/02/18 05:09 125 18 99 Facial 60 12/02/18 05:03 99.1 12/02/18 05:00 99.1 113 23 122/68 (86) 100 12/02/18 04:00 99.6 134 19 115/76 (89) 100 12/02/18 04:00 120 12/02/18 04:00 100 12/02/18 04:00 Nasal Cannula 2.0 12/02/18 03:00 153 23 130/75 (93) 100 12/02/18 02:37 162 25 97 Facial 100 12/02/18 02:30 100 12/02/18 02:29 162 12/02/18 02:00 161 24 163/75 (104) 96 12/02/18 01:00 121 16 137/74 (95) 97 12/02/18 00:00 Nasal Cannula 2.0 12/02/18 00:00 123 12/02/18 00:00 122 17 150/77 (101) 97 12/02/18 00:00 2.0 12/01/18 23:00 98.9 126 17 140/76 (97) 98 12/01/18 22:00 126 17 135/68 (90) 97 12/01/18 21:36 97 Nasal Cannula 2.0 28 12/01/18 21:36 130 18 Nasal Cannula 2.0 28 12/01/18 21:36 Nasal Cannula 2.0 28 12/01/18 21:00 134 22 128/78 (95) 94 12/01/18 20:00 137 23 155/84 (107) 95 12/01/18 20:00 2.0 12/01/18 20:00 128 12/01/18 20:00 Nasal Cannula 2.0 12/01/18 19:30 98.7 120 24 150/70 (96) 94 12/01/18 19:00 128 23 155/70 (98) 95 12/01/18 18:30 124 22 147/81 (103) 95 12/01/18 18:00 125 23 119/68 (85) 95 12/01/18 17:30 127 23 146/70 (95) 94 12/01/18 17:00 124 22 121/101 (108) 94 Intake and Output 12/01/18 12/02/18 19:00 07:00 Intake Total 1310.0 ml 1673.333 ml Output Total 225 ml Balance 1085.0 ml 1673.333 ml Intake Oral 0 ml Free Water 200 ml IV Total 970.0 ml 1493.333 ml Tube Feeding 140 ml 180 ml Output Urine Total 225 ml # Voids 670 785 # Bowel Movements 2 3 Laboratory Tests Test 12/01/18 17:00 12/02/18 02:11 12/02/18 03:58 12/02/18 04:05 Lactic Acid Level 1.70 mmol/L (0.4-2.0) Troponin I 0.168 ng/mL (0.000-0.056) 0.309 ng/mL (0.000-0.056) Arterial Blood pH 7.256 (7.350-7.450) 7.410 (7.350-7.450) Arterial Blood Partial Pressure CO2 43.9 mmHg (35.0-45.0) 31.3 mmHg (35.0-45.0) L Arterial Blood Partial Pressure O2 81.4 mmHg (75.0-100.0) 210.1 mmHg (75.0-100.0) H Arterial Blood HCO3 19.1 mmol/L (22.0-26.0) L 19.4 mmol/L (22.0-26.0) L Arterial Blood Oxygen Saturation 93.5 % (95-100) L 98.6 % (95-100) Arterial Blood Base Excess -7.6 (-2-2) L -4.6 (-2-2) L Renny Test Positive Positive White Blood Count 3.1 K/UL (4.8-10.8) L Red Blood Count 2.45 M/UL (4.20-5.40) L Hemoglobin 7.6 G/DL (12.0-16.0) L Hematocrit 24.0 % (37.0-47.0) L Mean Corpuscular Volume 98 FL (80-99) Mean Corpuscular Hemoglobin 30.9 PG (27.0-31.0) Mean Corpuscular Hemoglobin Concent 31.5 G/DL (32.0-36.0) L Red Cell Distribution Width 15.1 % (11.6-14.8) H Platelet Count 39 K/UL (150-450) L Mean Platelet Volume 10.1 FL (6.5-10.1) Neutrophils (%) (Auto) % (45.0-75.0) Lymphocytes (%) (Auto) % (20.0-45.0) Monocytes (%) (Auto) % (1.0-10.0) Eosinophils (%) (Auto) % (0.0-3.0) Basophils (%) (Auto) % (0.0-2.0) Differential Total Cells Counted 100 Neutrophils % (Manual) 82 % (45-75) H Lymphocytes % (Manual) 1 % (20-45) L Monocytes % (Manual) 4 % (1-10) Eosinophils % (Manual) 0 % (0-3) Basophils % (Manual) 0 % (0-2) Band Neutrophils 13 % (0-8) H Platelet Estimate Decreased L Platelet Morphology Normal Hypochromasia 1+ Anisocytosis 1+ Sodium Level 148 MMOL/L (136-145) H Potassium Level 2.8 MMOL/L (3.5-5.1) L Chloride Level 117 MMOL/L (98-107) H Carbon Dioxide Level 21 MMOL/L (21-32) Anion Gap 10 mmol/L (5-15) Blood Urea Nitrogen 24 mg/dL (7-18) H Creatinine 0.8 MG/DL (0.55-1.30) Estimat Glomerular Filtration Rate mL/min (>60) Glucose Level 157 MG/DL (74-106) H Hemoglobin A1c 6.4 % (4.3-6.0) H Uric Acid 3.0 MG/DL (2.6-7.2) Calcium Level 7.5 MG/DL (8.5-10.1) L Phosphorus Level 1.9 MG/DL (2.5-4.9) L Magnesium Level 1.7 MG/DL (1.8-2.4) L Iron Level 11 ug/dL (50-175) L Total Iron Binding Capacity 98 ug/dL (250-450) L Percent Iron Saturation 11 % (15-50) L Unsaturated Iron Binding 87 ug/dL (112-346) L Ferritin 517 NG/ML (8-388) H Total Bilirubin 0.5 MG/DL (0.2-1.0) Gamma Glutamyl Transpeptidase 55 U/L (5-85) Aspartate Amino Transf (AST/SGOT) 40 U/L (15-37) H Alanine Aminotransferase (ALT/SGPT) 31 U/L (12-78) Alkaline Phosphatase 94 U/L (46-116) Ammonia 47 umol/L (11-32) H Total Creatine Kinase 77 U/L (26-308) Pro-B-Type Natriuretic Peptide 4460 pg/mL (0-125) H Total Protein 5.5 G/DL (6.4-8.2) L Albumin 1.6 G/DL (3.4-5.0) L Globulin 3.9 g/dL Albumin/Globulin Ratio 0.4 (1.0-2.7) L Triglycerides Level 69 MG/DL (30-150) Cholesterol Level 74 MG/DL (< 200) LDL Cholesterol 41 mg/dL (<100) HDL Cholesterol 23 MG/DL (40-60) L Cholesterol/HDL Ratio 3.2 (3.3-4.4) L Vitamin B12 Level 1774 PG/ML (193-986) H Folate 25.5 NG/ML (8.6-58.9) Thyroid Stimulating Hormone (TSH) 0.936 uiU/mL (0.358-3.740) Height (Feet): 5 Height (Inches): 3.00 Weight (Pounds): 118 Medications Current Medications Medications (Trade) Dose Ordered Sig/Laure Route PRN Reason Start Time Stop Time Status Last Admin Dose Admin Acetaminophen (Tylenol) 650 mg Q4HR PRN NG Mild Pain/Temp > 100.5 12/02/18 04:15 01/01/19 04:14 12/02/18 04:33 Albuterol/ Ipratropium (Albuterol/ Ipratropium) 3 ml Q4H PRN HHN Shortness of Breath 12/01/18 10:15 12/06/18 10:14 Chlorhexidine Gluconate (Georgina-Hex 2%) 1 applic DAILY@2000 TOPIC 12/01/18 20:00 12/31/18 19:59 12/01/18 19:57 Dextrose (Dextrose 50%) 25 ml Q30M PRN IV Hypoglycemia 12/01/18 12:30 12/31/18 12:29 Dextrose (Dextrose 50%) 50 ml Q30M PRN IV Hypoglycemia 12/01/18 12:30 12/31/18 12:29 Dextrose/Sodium Chloride 1,000 ml @ 100 mls/hr Q10H IV 12/01/18 10:15 12/31/18 10:14 12/02/18 15:39 Insulin Aspart (NovoLOG) Q6HR SUBQ 12/01/18 18:00 12/31/18 17:59 12/02/18 12:42 Nitroglycerin (Ntg) 1 patch Q24H TDERMAL 12/02/18 16:00 01/01/19 15:59 12/02/18 15:39 Norepinephrine Bitartrate 4 mg/ Dextrose 250 ml @ 0 mls/hr Q24H IV 12/01/18 06:30 12/31/18 06:29 12/01/18 06:43 Ondansetron HCl (Zofran) 4 mg Q6H PRN IVP Nausea & Vomiting 12/01/18 10:15 12/31/18 10:14 Piperacillin Sod/ Tazobactam Sod 3.375 gm/Dextrose 110 ml @ 27.5 mls/hr EVERY 8 HOURS IVPB 12/01/18 14:00 12/06/18 13:59 12/02/18 14:06 Vancomycin HCl (Vanco rx to dose) 1 ea DAILY PRN MISC Per rx protocol 12/01/18 10:15 12/31/18 10:14 Vancomycin HCl 750 mg/Sodium Chloride 275 ml @ 183.333 mls/hr Q24H IVPB 12/02/18 05:00 12/07/18 04:59 12/02/18 04:33 Assessment/Plan Assessment/Plan Hematology Consultation ANIRUDH: DVT and thrombocytopenia REQ MD: Yi Asencio DOS: 12/01/18 ID Ms. Ronaldo Lara is a pleasant 78y old Romanian-speaking female with limited history per record presents from nursing facility with fever, Tachycardia and possible bladder infection, Patient herself is not able to provide full history , Has underlying dementia, will need to contact facility for further info. reviewed imaging shows a dvt and heme/pulm consulted for further eval and treatment. There was no reports of vomiting or diarrhea Unknown regarding change in medications, Nephrology was consulted, ID and pulm consulted, currently with sepsis, gram neg rods in serum, on vanc/zosyn Allergies: No Known Allergies (Unverified , 07/26/18) Limited by: medical condition Past Medical History: see triage record Pertinent Family History: unable to obtain Reviewed Nursing Documentation: PMH: Agreed; PSxH: Agreed Past Medical History: No History, Except For Hx Cardiac Problems: No - hyperlipidemia, metabolic encephalopathy, UTI, Amemia , Hx Hypertension: Yes Hx Diabetes: Yes - Type 2 Review of Systems All Other Systems: limited - Other than the ones mentioned in the history of present illness all others are reviewed however they do stay limited due to the patient's mental status Physical Exam Vitals: reviewed Gen: confused, on bipap, unable to converse, sleepy Pulm: ++ crackles ++ bipap CV: RRR, no mgr Abd: soft, nt, nd ++ peg Ext: no swelling of lower ext Neuro: demented Laboratory Tests Test 12/01/18 17:00 12/02/18 02:11 12/02/18 03:58 12/02/18 04:05 Lactic Acid Level 1.70 mmol/L (0.4-2.0) Troponin I 0.168 ng/mL (0.000-0.056) 0.309 ng/mL (0.000-0.056) Arterial Blood pH 7.256 (7.350-7.450) 7.410 (7.350-7.450) Arterial Blood Partial Pressure CO2 43.9 mmHg (35.0-45.0) 31.3 mmHg (35.0-45.0) L Arterial Blood Partial Pressure O2 81.4 mmHg (75.0-100.0) 210.1 mmHg (75.0-100.0) H Arterial Blood HCO3 19.1 mmol/L (22.0-26.0) L 19.4 mmol/L (22.0-26.0) L Arterial Blood Oxygen Saturation 93.5 % (95-100) L 98.6 % (95-100) Arterial Blood Base Excess -7.6 (-2-2) L -4.6 (-2-2) L Renny Test Positive Positive White Blood Count 3.1 K/UL (4.8-10.8) L Red Blood Count 2.45 M/UL (4.20-5.40) L Hemoglobin 7.6 G/DL (12.0-16.0) L Hematocrit 24.0 % (37.0-47.0) L Mean Corpuscular Volume 98 FL (80-99) Mean Corpuscular Hemoglobin 30.9 PG (27.0-31.0) Mean Corpuscular Hemoglobin Concent 31.5 G/DL (32.0-36.0) L Red Cell Distribution Width 15.1 % (11.6-14.8) H Platelet Count 39 K/UL (150-450) L Mean Platelet Volume 10.1 FL (6.5-10.1) Neutrophils (%) (Auto) % (45.0-75.0) Lymphocytes (%) (Auto) % (20.0-45.0) Monocytes (%) (Auto) % (1.0-10.0) Eosinophils (%) (Auto) % (0.0-3.0) Basophils (%) (Auto) % (0.0-2.0) Differential Total Cells Counted 100 Neutrophils % (Manual) 82 % (45-75) H Lymphocytes % (Manual) 1 % (20-45) L Monocytes % (Manual) 4 % (1-10) Eosinophils % (Manual) 0 % (0-3) Basophils % (Manual) 0 % (0-2) Band Neutrophils 13 % (0-8) H Platelet Estimate Decreased L Platelet Morphology Normal Hypochromasia 1+ Anisocytosis 1+ Sodium Level 148 MMOL/L (136-145) H Potassium Level 2.8 MMOL/L (3.5-5.1) L Chloride Level 117 MMOL/L (98-107) H Carbon Dioxide Level 21 MMOL/L (21-32) Anion Gap 10 mmol/L (5-15) Blood Urea Nitrogen 24 mg/dL (7-18) H Creatinine 0.8 MG/DL (0.55-1.30) Estimat Glomerular Filtration Rate mL/min (>60) Glucose Level 157 MG/DL (74-106) H Hemoglobin A1c 6.4 % (4.3-6.0) H Uric Acid 3.0 MG/DL (2.6-7.2) Calcium Level 7.5 MG/DL (8.5-10.1) L Phosphorus Level 1.9 MG/DL (2.5-4.9) L Magnesium Level 1.7 MG/DL (1.8-2.4) L Iron Level 11 ug/dL (50-175) L Total Iron Binding Capacity 98 ug/dL (250-450) L Percent Iron Saturation 11 % (15-50) L Unsaturated Iron Binding 87 ug/dL (112-346) L Ferritin 517 NG/ML (8-388) H Total Bilirubin 0.5 MG/DL (0.2-1.0) Gamma Glutamyl Transpeptidase 55 U/L (5-85) Aspartate Amino Transf (AST/SGOT) 40 U/L (15-37) H Alanine Aminotransferase (ALT/SGPT) 31 U/L (12-78) Alkaline Phosphatase 94 U/L (46-116) Ammonia 47 umol/L (11-32) H Total Creatine Kinase 77 U/L (26-308) Pro-B-Type Natriuretic Peptide 4460 pg/mL (0-125) H Total Protein 5.5 G/DL (6.4-8.2) L Albumin 1.6 G/DL (3.4-5.0) L Globulin 3.9 g/dL Albumin/Globulin Ratio 0.4 (1.0-2.7) L Triglycerides Level 69 MG/DL (30-150) Cholesterol Level 74 MG/DL (< 200) LDL Cholesterol 41 mg/dL (<100) HDL Cholesterol 23 MG/DL (40-60) L Cholesterol/HDL Ratio 3.2 (3.3-4.4) L Vitamin B12 Level 1774 PG/ML (193-986) H Folate 25.5 NG/ML (8.6-58.9) Thyroid Stimulating Hormone (TSH) 0.936 uiU/mL (0.358-3.740) # DVT of the left leg s/p IVC filter in 07/2018-- superficial femoral vein which is a deep vein, new onset, has not had these symptoms before. Lower hgb and plts --> given decreased h/h, low thrombocytopenia, do not recommend anticoag --> appreciate Dr. Parekh and Mariam arias from prior admission --> smear reviewed # Pancytopenia, likely related to septicemia, appears new baseline 50-70k, several causes possible including viral, medication or intrabone marrow related. --> Cont to monitor plt count for improvement --> US abd: Mild left hydronephrosis. Possible left renal calyceal calculi. Negative for gallstones or dilated ducts Debris noted within the bladder --> Hep panel and HIV are both negative --> given extremely poor condition do not recommend a bone marrow biopsy, have discussed with family 08/01 with --> will rediscuss once sepsis resolves --> transfuse if plt <20k # Anemia of chronic disease. Multifactorial. Since admission Hgb has consistently remained between 8-9. --> Cont to monitor for stability --> Hgb goal above 7. Transfuse prn. --> IV iron completed prior admission and feritin is elevated # Dehydration. IVF has been administered --> improved # DM OOC --> A1C goal <7 --> Cont on insulin # Bacteremia/prior UTI. --> ID is following. Appreciate recs. --> Pt on IV abx. --> Cultures surveillance as per id # PEG placement 08/04. Greatly appreciate consultation! Dewayne Gayle MD Dec 02, 2018 16:57
--- NOTE | 2018-12-02 17:30 | NUR ---
NURSE NOTES: Patient VS stable at this time with no sign of acute distress. Patient remains on Venturi mask at 45% FiO2 at this time with oxygen saturation of 96% at this time. Patient bed in low position with bed alarm on and call light in reach at this time. Patient tolerating G tube feeding of Vital AF at 35mL/hr at this time. Feeding increased at 1630. Patient has no residual at this time.
--- NOTE | 2018-12-02 19:06 | NUR ---
CASE MANAGEMENT: REVIEW SI: SEPSIS . DEHYDRATION . DVT S/P IVC FILTER T 98.5 HR 105 RR 12 BP 91/45 SAT 99% BIPAP FIO2 60 WBC 3.1 H/H 7.6/24.0 NA 148 K 2.8 TROPONIN I 0.309 IS: VANCO IV Q24HR ZOSYN IV Q8HR D5 NS IVF @100ML/HR LEVOPHED IV Q24HR ICU STATUS DCP: PATIENT IS FROM [facility]
--- NOTE | 2018-12-02 19:10 | NUR ---
HAND-OFF: Report given to DONIS Perez. Patient VS stable at this time with no sign of acute distress at this time.
--- NOTE | 2018-12-02 19:25 | General Progress Note ---
Assessment/Plan Problem List: (1) UTI (urinary tract infection) ICD Codes: N39.0 - Urinary tract infection, site not specified SNOMED: 70196902 Qualifiers: Qualified Codes: N39.0 - Urinary tract infection, site not specified (2) Pneumonia ICD Codes: J18.9 - Pneumonia, unspecified organism SNOMED: 663382993, 011196345, 753617371 Qualifiers: Qualified Codes: J18.1 - Lobar pneumonia, unspecified organism (3) Elevated troponin ICD Codes: R74.8 - Abnormal levels of other serum enzymes SNOMED: 655942530, 198031872, 841563410 (4) Dehydration ICD Codes: E86.0 - Dehydration SNOMED: 25007159 (5) Hypokalemia ICD Codes: E87.6 - Hypokalemia SNOMED: 68191333 (6) Malnutrition ICD Codes: E46 - Unspecified protein-calorie malnutrition SNOMED: 52043560 (7) Dementia with behavioral disturbance ICD Codes: F03.91 - Unspecified dementia with behavioral disturbance SNOMED: 9166919428798 (8) Encephalopathy due to metabolic factor or toxin SNOMED: 841651807 (9) Anemia ICD Codes: D64.9 - Anemia, unspecified SNOMED: 246916138 (10) Sepsis ICD Codes: A41.9 - Sepsis, unspecified organism SNOMED: 25556885 Qualifiers: Qualified Codes: A41.9 - Sepsis, unspecified organism (11) Diabetic nephropathy 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 SNOMED: 305236164 Status: progressing Assessment/Plan afebrile nac anemia sepsis encephalopathy abx per id lyte abnormality Subjective ROS Limited/Unobtainable: Yes Allergies: Coded Allergies: No Known Allergies (Unverified , 07/26/18) Objective Last 24 Hour Vital Signs Date Time Temp Pulse Resp B/P (MAP) Pulse Ox O2 Delivery O2 Flow Rate FiO2 12/02/18 16:00 98.5 105 16 128/71 (90) 96 12/02/18 16:00 10.0 45 12/02/18 16:00 Venturi Mask 10.0 12/02/18 16:00 105 12/02/18 15:39 145/72 12/02/18 15:00 100 15 145/72 (96) 96 12/02/18 14:00 96 13 135/64 (87) 96 12/02/18 13:00 89 12 103/53 (70) 97 12/02/18 12:00 97.8 96 12 120/59 (79) 95 12/02/18 12:00 10.0 45 12/02/18 12:00 Venturi Mask 10.0 12/02/18 12:00 101 12/02/18 11:20 101 17 95 12/02/18 11:00 86 11 130/58 (82) 100 12/02/18 10:00 90 12 130/69 (89) 100 12/02/18 09:00 92 13 121/56 (77) 100 12/02/18 09:00 92 23 97 Facial 50 12/02/18 08:00 Bi-pap 12/02/18 08:00 98.6 82 13 99/53 (68) 100 12/02/18 08:00 50 12/02/18 08:00 99 12/02/18 07:00 90 13 101/50 (67) 100 12/02/18 06:35 100 Bi-pap 60 12/02/18 06:35 Bi-pap 60 12/02/18 06:35 90 20 100 Facial 60 12/02/18 06:00 99 23 91/45 (60) 100 12/02/18 05:50 103/50 12/02/18 05:09 125 18 99 Facial 60 12/02/18 05:03 99.1 12/02/18 05:00 99.1 113 23 122/68 (86) 100 12/02/18 04:00 99.6 134 19 115/76 (89) 100 12/02/18 04:00 120 12/02/18 04:00 100 12/02/18 04:00 Nasal Cannula 2.0 12/02/18 03:00 153 23 130/75 (93) 100 12/02/18 02:37 162 25 97 Facial 100 12/02/18 02:30 100 12/02/18 02:29 162 12/02/18 02:00 161 24 163/75 (104) 96 12/02/18 01:00 121 16 137/74 (95) 97 12/02/18 00:00 Nasal Cannula 2.0 12/02/18 00:00 123 12/02/18 00:00 122 17 150/77 (101) 97 12/02/18 00:00 2.0 12/01/18 23:00 98.9 126 17 140/76 (97) 98 12/01/18 22:00 126 17 135/68 (90) 97 12/01/18 21:36 97 Nasal Cannula 2.0 28 12/01/18 21:36 130 18 Nasal Cannula 2.0 28 12/01/18 21:36 Nasal Cannula 2.0 28 12/01/18 21:00 134 22 128/78 (95) 94 12/01/18 20:00 137 23 155/84 (107) 95 12/01/18 20:00 2.0 12/01/18 20:00 128 12/01/18 20:00 Nasal Cannula 2.0 12/01/18 19:30 98.7 120 24 150/70 (96) 94 Intake and Output 12/01/18 12/02/18 19:00 07:00 Intake Total 1310.0 ml 1673.333 ml Output Total 225 ml Balance 1085.0 ml 1673.333 ml Intake Oral 0 ml Free Water 200 ml IV Total 970.0 ml 1493.333 ml Tube Feeding 140 ml 180 ml Output Urine Total 225 ml # Voids 670 785 # Bowel Movements 2 3 Laboratory Tests 12/02/18 02:11: Arterial Blood pH 7.256L, Arterial Blood Partial Pressure CO2 43.9, Arterial Blood Partial Pressure O2 81.4, Arterial Blood HCO3 19.1L, Arterial Blood Oxygen Saturation 93.5L, Arterial Blood Base Excess -7.6L, Renny Test Positive 12/02/18 03:58: Arterial Blood pH 7.410, Arterial Blood Partial Pressure CO2 31.3L, Arterial Blood Partial Pressure O2 210.1H, Arterial Blood HCO3 19.4L, Arterial Blood Oxygen Saturation 98.6, Arterial Blood Base Excess -4.6L, Renny Test Positive 12/02/18 04:05: White Blood Count 3.1L, Red Blood Count 2.45L, Hemoglobin 7.6L, Hematocrit 24.0L , Mean Corpuscular Volume 98, Mean Corpuscular Hemoglobin 30.9, Mean Corpuscular Hemoglobin Concent 31.5L, Red Cell Distribution Width 15.1H, Platelet Count 39L, Mean Platelet Volume 10.1, Neutrophils (%) (Auto) , Lymphocytes (%) (Auto) , Monocytes (%) (Auto) , Eosinophils (%) (Auto) , Basophils (%) (Auto) , Differential Total Cells Counted 100, Neutrophils % ( Manual) 82H, Lymphocytes % (Manual) 1L, Monocytes % (Manual) 4, Eosinophils % ( Manual) 0, Basophils % (Manual) 0, Band Neutrophils 13H, Platelet Estimate DecreasedL, Platelet Morphology Normal, Hypochromasia 1+, Anisocytosis 1+, Sodium Level 148H, Potassium Level 2.8L, Chloride Level 117H, Carbon Dioxide Level 21, Anion Gap 10, Blood Urea Nitrogen 24H, Creatinine 0.8, Estimat Glomerular Filtration Rate , Glucose Level 157H, Hemoglobin A1c 6.4H, Uric Acid 3.0, Calcium Level 7.5L, Phosphorus Level 1.9L, Magnesium Level 1.7L, Iron Level 11L, Total Iron Binding Capacity 98L, Percent Iron Saturation 11L, Unsaturated Iron Binding 87L, Ferritin 517H, Total Bilirubin 0.5, Gamma Glutamyl Transpeptidase 55, Aspartate Amino Transf (AST/SGOT) 40H, Alanine Aminotransferase (ALT/SGPT) 31, Alkaline Phosphatase 94, Ammonia 47H, Total Creatine Kinase 77, Troponin I 0.309H, Pro-B-Type Natriuretic Peptide 4460H, Total Protein 5.5L, Albumin 1.6L, Globulin 3.9, Albumin/Globulin Ratio 0.4L, Triglycerides Level 69, Cholesterol Level 74, LDL Cholesterol 41, HDL Cholesterol 23L, Cholesterol/HDL Ratio 3.2L, Vitamin B12 Level 1774H, Folate 25.5, Thyroid Stimulating Hormone (TSH) 0.936 Height (Feet): 5 Height (Inches): 3.00 Weight (Pounds): 118 General Appearance: confused Cardiovascular: normal rate Respiratory/Chest: lungs clear Abdomen: soft Yi Asencio MD Dec 02, 2018 19:25
--- NOTE | 2018-12-02 19:30 | NUR ---
NURSE NOTES: Recvd,quiet awake quiet in bed,eyes open,aphasic does'nt follows command.Resp.unlabored on 45%VM inh.Sat.97%.Pos.chg.HOB>35'.See V/S.Scope SR.GT-Feeding in progress.IV Thera.inf.via TLC (R) Femo.F/Cath Patent,See I/O.
[2018-12-02] MEDS: Dyna-Hex 2% Top Sol 2oz TOPIC SCH (20:04)
[2018-12-02] MEDS ORDERED: Tubing IV Secondary IV ONE (21:00)
[2018-12-02] MEDS ORDERED: NS 275ml ONE (21:00)
[2018-12-02] MEDS ORDERED: D5NS 1000ml IV ONE (21:00)
--- NOTE | 2018-12-02 22:00 | NUR ---
NURSE NOTES: HS care rendered.Pos.chg.Backrub with Lotion.Due med.admin.Placed back on BIPAP.as ordered.Gt-Feeding Brandi.rate >45cc/hr.
--- NOTE | 2018-12-02 23:55 | Cardiology Progress Note ---
Subjective Subjective Sinus tachycardia at rate of 111. Objective Last 24 Hour Vital Signs Date Time Temp Pulse Resp B/P (MAP) Pulse Ox O2 Delivery O2 Flow Rate FiO2 12/02/18 23:05 111 15 100 Facial 30 12/02/18 21:00 98.4 111 15 116/62 (80) 98 12/02/18 20:00 Venturi Mask 10.0 12/02/18 20:00 112 17 135/65 (88) 98 12/02/18 20:00 10.0 45 12/02/18 20:00 114 12/02/18 19:00 Venturi Mask 10.0 40 12/02/18 19:00 110 17 137/59 (85) 97 12/02/18 19:00 100 Venturi Mask 10.0 45 12/02/18 18:00 112 17 146/78 (100) 97 12/02/18 17:00 100 14 107/53 (71) 98 12/02/18 16:00 98.5 105 16 128/71 (90) 96 12/02/18 16:00 10.0 45 12/02/18 16:00 Venturi Mask 10.0 12/02/18 16:00 105 12/02/18 15:39 145/72 12/02/18 15:00 100 15 145/72 (96) 96 12/02/18 14:00 96 13 135/64 (87) 96 12/02/18 13:00 89 12 103/53 (70) 97 12/02/18 12:00 97.8 96 12 120/59 (79) 95 12/02/18 12:00 10.0 45 12/02/18 12:00 Venturi Mask 10.0 12/02/18 12:00 101 12/02/18 11:20 101 17 95 12/02/18 11:00 86 11 130/58 (82) 100 12/02/18 10:00 90 12 130/69 (89) 100 12/02/18 09:00 92 13 121/56 (77) 100 12/02/18 09:00 92 23 97 Facial 50 12/02/18 08:00 Bi-pap 12/02/18 08:00 98.6 82 13 99/53 (68) 100 12/02/18 08:00 50 12/02/18 08:00 99 12/02/18 07:00 90 13 101/50 (67) 100 12/02/18 06:35 100 Bi-pap 60 12/02/18 06:35 Bi-pap 60 12/02/18 06:35 90 20 100 Facial 60 12/02/18 06:00 99 23 91/45 (60) 100 12/02/18 05:50 103/50 12/02/18 05:09 125 18 99 Facial 60 12/02/18 05:03 99.1 12/02/18 05:00 99.1 113 23 122/68 (86) 100 12/02/18 04:00 99.6 134 19 115/76 (89) 100 12/02/18 04:00 120 12/02/18 04:00 100 12/02/18 04:00 Nasal Cannula 2.0 12/02/18 03:00 153 23 130/75 (93) 100 12/02/18 02:37 162 25 97 Facial 100 12/02/18 02:30 100 12/02/18 02:29 162 12/02/18 02:00 161 24 163/75 (104) 96 12/02/18 01:00 121 16 137/74 (95) 97 12/02/18 00:00 Nasal Cannula 2.0 12/02/18 00:00 123 12/02/18 00:00 122 17 150/77 (101) 97 12/02/18 00:00 2.0 Intake and Output 12/01/18 12/02/18 19:00 07:00 Intake Total 1310.0 ml 1673.333 ml Output Total 225 ml Balance 1085.0 ml 1673.333 ml Intake Oral 0 ml Free Water 200 ml IV Total 970.0 ml 1493.333 ml Tube Feeding 140 ml 180 ml Output Urine Total 225 ml # Voids 670 785 # Bowel Movements 2 3 2D Echo: EF55%, Large left pleural eff., Grade I LVDD, Mild AR/Mod MR/CT,RVSP 37mmHg Laboratory Tests Test 12/02/18 02:11 12/02/18 03:58 12/02/18 04:05 Arterial Blood pH 7.256 (7.350-7.450) 7.410 (7.350-7.450) Arterial Blood Partial Pressure CO2 43.9 mmHg (35.0-45.0) 31.3 mmHg (35.0-45.0) L Arterial Blood Partial Pressure O2 81.4 mmHg (75.0-100.0) 210.1 mmHg (75.0-100.0) H Arterial Blood HCO3 19.1 mmol/L (22.0-26.0) L 19.4 mmol/L (22.0-26.0) L Arterial Blood Oxygen Saturation 93.5 % (95-100) L 98.6 % (95-100) Arterial Blood Base Excess -7.6 (-2-2) L -4.6 (-2-2) L Renny Test Positive Positive White Blood Count 3.1 K/UL (4.8-10.8) L Red Blood Count 2.45 M/UL (4.20-5.40) L Hemoglobin 7.6 G/DL (12.0-16.0) L Hematocrit 24.0 % (37.0-47.0) L Mean Corpuscular Volume 98 FL (80-99) Mean Corpuscular Hemoglobin 30.9 PG (27.0-31.0) Mean Corpuscular Hemoglobin Concent 31.5 G/DL (32.0-36.0) L Red Cell Distribution Width 15.1 % (11.6-14.8) H Platelet Count 39 K/UL (150-450) L Mean Platelet Volume 10.1 FL (6.5-10.1) Neutrophils (%) (Auto) % (45.0-75.0) Lymphocytes (%) (Auto) % (20.0-45.0) Monocytes (%) (Auto) % (1.0-10.0) Eosinophils (%) (Auto) % (0.0-3.0) Basophils (%) (Auto) % (0.0-2.0) Differential Total Cells Counted 100 Neutrophils % (Manual) 82 % (45-75) H Lymphocytes % (Manual) 1 % (20-45) L Monocytes % (Manual) 4 % (1-10) Eosinophils % (Manual) 0 % (0-3) Basophils % (Manual) 0 % (0-2) Band Neutrophils 13 % (0-8) H Platelet Estimate Decreased L Platelet Morphology Normal Hypochromasia 1+ Anisocytosis 1+ Sodium Level 148 MMOL/L (136-145) H Potassium Level 2.8 MMOL/L (3.5-5.1) L Chloride Level 117 MMOL/L (98-107) H Carbon Dioxide Level 21 MMOL/L (21-32) Anion Gap 10 mmol/L (5-15) Blood Urea Nitrogen 24 mg/dL (7-18) H Creatinine 0.8 MG/DL (0.55-1.30) Estimat Glomerular Filtration Rate mL/min (>60) Glucose Level 157 MG/DL (74-106) H Hemoglobin A1c 6.4 % (4.3-6.0) H Uric Acid 3.0 MG/DL (2.6-7.2) Calcium Level 7.5 MG/DL (8.5-10.1) L Phosphorus Level 1.9 MG/DL (2.5-4.9) L Magnesium Level 1.7 MG/DL (1.8-2.4) L Iron Level 11 ug/dL (50-175) L Total Iron Binding Capacity 98 ug/dL (250-450) L Percent Iron Saturation 11 % (15-50) L Unsaturated Iron Binding 87 ug/dL (112-346) L Ferritin 517 NG/ML (8-388) H Total Bilirubin 0.5 MG/DL (0.2-1.0) Gamma Glutamyl Transpeptidase 55 U/L (5-85) Aspartate Amino Transf (AST/SGOT) 40 U/L (15-37) H Alanine Aminotransferase (ALT/SGPT) 31 U/L (12-78) Alkaline Phosphatase 94 U/L (46-116) Ammonia 47 umol/L (11-32) H Total Creatine Kinase 77 U/L (26-308) Troponin I 0.309 ng/mL (0.000-0.056) Pro-B-Type Natriuretic Peptide 4460 pg/mL (0-125) H Total Protein 5.5 G/DL (6.4-8.2) L Albumin 1.6 G/DL (3.4-5.0) L Globulin 3.9 g/dL Albumin/Globulin Ratio 0.4 (1.0-2.7) L Triglycerides Level 69 MG/DL (30-150) Cholesterol Level 74 MG/DL (< 200) LDL Cholesterol 41 mg/dL (<100) HDL Cholesterol 23 MG/DL (40-60) L Cholesterol/HDL Ratio 3.2 (3.3-4.4) L Vitamin B12 Level 1774 PG/ML (193-986) H Folate 25.5 NG/ML (8.6-58.9) Thyroid Stimulating Hormone (TSH) 0.936 uiU/mL (0.358-3.740) Microbiology Date/Time Source Procedure Growth Status 12/01/18 00:20 Blood Blood Culture - Preliminary Resulted 12/01/18 00:05 Blood Blood Culture - Preliminary Resulted 12/01/18 00:31 Nasal Nares Influenza Types A,B Antigen (KYLE) - Final Complete 12/01/18 00:47 Urine,Clean Catch Urine Culture - Preliminary Gram Negative Bacillus 1 Resulted 12/01/18 00:47 Sacral Wound Gram Stain - Final Resulted 12/01/18 00:47 Wound Culture - Preliminary Gram Negative Bacillus 1 Resulted 12/01/18 00:20 Rectum Received Objective HEENT: Normocephalic, atraumatic, PERRLA, EOMI. On rebreathing mask. NECK: JVP <5cm, No carotid bruit. HEART: Normal S1S2, no murmurs, gallops or rubs, Tachycardic. LUNGS: Clear ABDOMEN: Soft and nontender, non-distended, no HSM, + BS EXTREMITIES: No edema, clubbing or cyanosis. Deepak Aldana MD Dec 02, 2018 23:55
[2018-12-03] VITALS (17 sets, daily range): BP systolic 129–153; BP diastolic 64–114
[2018-12-03] MEDS: NovoLOG Insulin Flexpen SUBQ SCH ×5 (00:03→23:13)
--- NOTE | 2018-12-03 00:14 | NUR ---
NURSE NOTES: Repositioned,Kept comfortable.Brandi.BIPAP settings.FSBS-210 covered.Cont.on IV Hydration.
--- NOTE | 2018-12-03 01:06 | General Progress Note ---
Assessment/Plan Assessment/Plan Assessment/Recs: # DVT of the left leg s/p IVC filter in 07/2018-- superficial femoral vein which is a deep vein, new onset, has not had these symptoms before. Lower hgb and plts --> given decreased h/h, low thrombocytopenia, do not recommend anticoag --> appreciate Dr. Parekh and Mariam alcantars from prior admission --> smear reviewed # Pancytopenia, likely related to septicemia, appears new baseline 50-70k, several causes possible including viral, medication or intrabone marrow related. --> Cont to monitor plt count for improvement --> US abd: Mild left hydronephrosis. Possible left renal calyceal calculi. Negative for gallstones or dilated ducts Debris noted within the bladder --> Hep panel and HIV are both negative --> given extremely poor condition do not recommend a bone marrow biopsy, have discussed with family 08/01 with --> will rediscuss once sepsis resolves --> transfuse if plt <20k # Anemia of chronic disease. Multifactorial. Since admission Hgb has consistently remained between 8-9. --> Cont to monitor for stability --> Hgb goal above 7. Transfuse prn. --> IV iron completed prior admission and feritin is elevated # Dehydration. IVF has been administered --> improved # DM OOC --> A1C goal <7 --> Cont on insulin # Bacteremia/prior UTI. --> ID is following. Appreciate recs. --> Pt on IV abx. --> Cultures surveillance as per id # PEG placement 08/04. Greatly appreciate consultation! Subjective Date patient seen: Dec 02, 2018 Allergies: Coded Allergies: No Known Allergies (Unverified , 07/26/18) Subjective 12/02: seen by bedside, hgb 7.6, will transfuse as needed, plt trending down, GTF on hold, patient on BIPAP, has been tachycardic over night, abx per ID Objective Last 24 Hour Vital Signs Date Time Temp Pulse Resp B/P (MAP) Pulse Ox O2 Delivery O2 Flow Rate FiO2 12/03/18 00:00 Venturi Mask 10.0 12/03/18 00:00 30 12/02/18 23:05 111 15 100 Facial 30 12/02/18 22:00 30 12/02/18 21:00 98.4 111 15 116/62 (80) 98 12/02/18 20:00 Venturi Mask 10.0 12/02/18 20:00 112 17 135/65 (88) 98 12/02/18 20:00 10.0 45 12/02/18 20:00 114 12/02/18 19:00 Venturi Mask 10.0 40 12/02/18 19:00 110 17 137/59 (85) 97 12/02/18 19:00 100 Venturi Mask 10.0 45 12/02/18 18:00 112 17 146/78 (100) 97 12/02/18 17:00 100 14 107/53 (71) 98 12/02/18 16:00 98.5 105 16 128/71 (90) 96 12/02/18 16:00 10.0 45 12/02/18 16:00 Venturi Mask 10.0 12/02/18 16:00 105 12/02/18 15:39 145/72 12/02/18 15:00 100 15 145/72 (96) 96 12/02/18 14:00 96 13 135/64 (87) 96 12/02/18 13:00 89 12 103/53 (70) 97 12/02/18 12:00 97.8 96 12 120/59 (79) 95 12/02/18 12:00 10.0 45 12/02/18 12:00 Venturi Mask 10.0 12/02/18 12:00 101 12/02/18 11:20 101 17 95 12/02/18 11:00 86 11 130/58 (82) 100 12/02/18 10:00 90 12 130/69 (89) 100 12/02/18 09:00 92 13 121/56 (77) 100 12/02/18 09:00 92 23 97 Facial 50 12/02/18 08:00 Bi-pap 12/02/18 08:00 98.6 82 13 99/53 (68) 100 12/02/18 08:00 50 12/02/18 08:00 99 12/02/18 07:00 90 13 101/50 (67) 100 12/02/18 06:35 100 Bi-pap 60 12/02/18 06:35 Bi-pap 60 12/02/18 06:35 90 20 100 Facial 60 12/02/18 06:00 99 23 91/45 (60) 100 12/02/18 05:50 103/50 12/02/18 05:09 125 18 99 Facial 60 12/02/18 05:03 99.1 12/02/18 05:00 99.1 113 23 122/68 (86) 100 12/02/18 04:00 99.6 134 19 115/76 (89) 100 12/02/18 04:00 120 12/02/18 04:00 100 12/02/18 04:00 Nasal Cannula 2.0 12/02/18 03:00 153 23 130/75 (93) 100 12/02/18 02:37 162 25 97 Facial 100 12/02/18 02:30 100 12/02/18 02:29 162 12/02/18 02:00 161 24 163/75 (104) 96 Intake and Output 12/02/18 12/03/18 19:00 07:00 Intake Total 2555.0 ml 800.0 ml Output Total 750 ml 270 ml Balance 1805.0 ml 530.0 ml Free Water 20 ml 60 ml IV Total 2350.0 ml 555.0 ml Tube Feeding 185 ml 185 ml Output Urine Total 750 ml 270 ml # Voids 325 Laboratory Tests 12/02/18 02:11: Arterial Blood pH 7.256L, Arterial Blood Partial Pressure CO2 43.9, Arterial Blood Partial Pressure O2 81.4, Arterial Blood HCO3 19.1L, Arterial Blood Oxygen Saturation 93.5L, Arterial Blood Base Excess -7.6L, Renny Test Positive 12/02/18 03:58: Arterial Blood pH 7.410, Arterial Blood Partial Pressure CO2 31.3L, Arterial Blood Partial Pressure O2 210.1H, Arterial Blood HCO3 19.4L, Arterial Blood Oxygen Saturation 98.6, Arterial Blood Base Excess -4.6L, Renny Test Positive 12/02/18 04:05: White Blood Count 3.1L, Red Blood Count 2.45L, Hemoglobin 7.6L, Hematocrit 24.0L , Mean Corpuscular Volume 98, Mean Corpuscular Hemoglobin 30.9, Mean Corpuscular Hemoglobin Concent 31.5L, Red Cell Distribution Width 15.1H, Platelet Count 39L, Mean Platelet Volume 10.1, Neutrophils (%) (Auto) , Lymphocytes (%) (Auto) , Monocytes (%) (Auto) , Eosinophils (%) (Auto) , Basophils (%) (Auto) , Differential Total Cells Counted 100, Neutrophils % ( Manual) 82H, Lymphocytes % (Manual) 1L, Monocytes % (Manual) 4, Eosinophils % ( Manual) 0, Basophils % (Manual) 0, Band Neutrophils 13H, Platelet Estimate DecreasedL, Platelet Morphology Normal, Hypochromasia 1+, Anisocytosis 1+, Sodium Level 148H, Potassium Level 2.8L, Chloride Level 117H, Carbon Dioxide Level 21, Anion Gap 10, Blood Urea Nitrogen 24H, Creatinine 0.8, Estimat Glomerular Filtration Rate , Glucose Level 157H, Hemoglobin A1c 6.4H, Uric Acid 3.0, Calcium Level 7.5L, Phosphorus Level 1.9L, Magnesium Level 1.7L, Iron Level 11L, Total Iron Binding Capacity 98L, Percent Iron Saturation 11L, Unsaturated Iron Binding 87L, Ferritin 517H, Total Bilirubin 0.5, Gamma Glutamyl Transpeptidase 55, Aspartate Amino Transf (AST/SGOT) 40H, Alanine Aminotransferase (ALT/SGPT) 31, Alkaline Phosphatase 94, Ammonia 47H, Total Creatine Kinase 77, Troponin I 0.309H, Pro-B-Type Natriuretic Peptide 4460H, Total Protein 5.5L, Albumin 1.6L, Globulin 3.9, Albumin/Globulin Ratio 0.4L, Triglycerides Level 69, Cholesterol Level 74, LDL Cholesterol 41, HDL Cholesterol 23L, Cholesterol/HDL Ratio 3.2L, Vitamin B12 Level 1774H, Folate 25.5, Thyroid Stimulating Hormone (TSH) 0.936 Height (Feet): 5 Height (Inches): 3.00 Weight (Pounds): 118 Objective Physical Exam Vitals: reviewed Gen: confused, on bipap, unable to converse, sleepy Pulm: ++ crackles ++ bipap CV: RRR, no mgr Abd: soft, nt, nd ++ peg Ext: no swelling of lower ext Neuro: demented Dewayne Gayle MD Dec 03, 2018 01:06
[2018-12-03] MEDS: D5NS 1,000 ML IV SCH (01:43)
--- NOTE | 2018-12-03 02:00 | NUR ---
NURSE NOTES: Asleep.Maintain on BIPAP.Sat 98-100%.See V/S.Scope rhythm same.Pos. chg.Cont.Ca.monitoring.
--- NOTE | 2018-12-03 04:20 | NUR ---
NURSE NOTES: Blood drawn for cbc/cmp etc.spec.to lab.Kirk Cadena.VSS.Scope SR-ST asymptomatic.Cont.on IV Therapy.F/Cath patent. Diuresis well.See I/O.
[2018-12-03] MEDS: Vancomycin 750mg/NS 275ml IVPB SCH ×2 (05:14)
[2018-12-03] MEDS: Piperacillin/Tazobactam 3.375 GM in D5W 110 ML IVPB SCH ×3 (05:41→22:40)
[2018-12-03 07:06] LABS: HEMATOCRIT 22.4 % (37.0-47.0); HEMOGLOBIN 7.1 G/DL (12.0-16.0); MEAN CORPUSCULAR VOLUME 100 FL (80-99); PLATELET COUNT 47 K/UL (150-450); RED BLOOD COUNT 2.25 M/UL (4.20-5.40); RED CELL DISTRIBUTION WIDTH 14.9 % (11.6-14.8); WHITE BLOOD COUNT 3.9 K/UL (4.8-10.8)
--- NOTE | 2018-12-03 07:40 | NUR ---
NURSE NOTES: Received the patient from DONIS Perez. Patient resting in bed, opens eyes to verbal stimuli, non-verbal, unable to follow commands. ST with HR 108 noted on the phototypesetting equipment monitor. Patient on 3L NC via NC, O2 sat 100%. No acute distress noted. Right femoral TLC intact and patent, dressing i/c/d, running D5NS at 100ml/hr. G-tube intact, running Vital AF 1.2 at 60ml/hr. Leiva cath intact, draining yellow urine by gravity. sacral wound dressing intact, on P200 mattress. Bed in lowest position, locked, side rails upx3, bed alarms on.
[2018-12-03 07:57] LABS: ALANINE AMINOTRANSFERASE 25 U/L (12-78); ALBUMIN 1.4 G/DL (3.4-5.0); ALBUMIN/GLOBULIN RATIO 0.4 (1.0-2.7); ALKALINE PHOSPHATASE 72 U/L (46-116); ANION GAP 6 mmol/L (5-15); ASPARTATE AMINO TRANSFERASE 29 U/L (15-37); BILIRUBIN,TOTAL 0.3 MG/DL (0.2-1.0); BLOOD UREA NITROGEN 16 mg/dL (7-18); CALCIUM 7.9 MG/DL (8.5-10.1); CARBON DIOXIDE 23 MMOL/L (21-32); CHLORIDE 120 MMOL/L (98-107); CREATININE 0.7 MG/DL (0.55-1.30); PHOSPHORUS 2.3 MG/DL (2.5-4.9); POTASSIUM 3.4 MMOL/L (3.5-5.1); SODIUM 149 MMOL/L (136-145)
--- NOTE | 2018-12-03 09:45 | NUR ---
NURSE NOTES: Patient resting in bed comfortably, pt tolerating tube feeding, no residual noted. HOB kept elevated.
--- NOTE | 2018-12-03 10:50 | Pulmonolgy Critical Care Note ---
Critical Care - Asmt/Plan Problems: (1) S/P IVC filter (2) DVT (deep venous thrombosis) (3) Sepsis Assessment & Plan: Proteus and GNB (4) UTI (urinary tract infection) Assessment & Plan: E coli (5) Pneumonia (6) Dehydration (7) Elevated troponin (8) Malnutrition (9) Hypokalemia (10) Hypernatremia (11) Encephalopathy due to metabolic factor or toxin (12) Dementia with behavioral disturbance (13) Thrombocytopenia (14) Anemia Respiratory: adjust FIO2, ABG, other - HHN's, pulm hygiene Cardiac: continue to monitor HR/BP, other - F/U cards recs RE: inc trop Renal: other - Change IVF to [id number] Infectious Disease: check cultures, continue antibiotics - per ID Gastrointestinal: continue feedings/current rate Endocrine: monitor blood sugar Hematologic: monitor H/H, other - Monitor platelts Prophylaxis: Protonix, other - IVCF Disposition: transfer to - [facility] Time Spent (Minutes): 30 Notes Reviewed: histology manager, cardio, renal, ID, GI Discussed with: nurses, consultants, other - Discuss [facility] Critical Care - Objective Last 24 Hour Vital Signs Date Time Temp Pulse Resp B/P (MAP) Pulse Ox O2 Delivery O2 Flow Rate FiO2 12/03/18 10:00 112 18 146/74 (98) 100 12/03/18 09:00 113 18 138/73 (94) 99 12/03/18 08:00 3.0 12/03/18 08:00 110 12/03/18 08:00 Nasal Cannula 3.0 12/03/18 08:00 98.8 108 17 130/70 (90) 99 12/03/18 07:00 109 18 150/80 (103) 99 12/03/18 06:40 98 Venturi Mask 10.0 45 12/03/18 06:40 Venturi Mask 10.0 40 12/03/18 06:00 3.0 12/03/18 06:00 109 19 145/65 (91) 97 12/03/18 05:41 150/65 12/03/18 05:08 112 19 97 3.0 32 12/03/18 05:00 110 14 150/65 (93) 98 12/03/18 04:00 98.3 102 15 137/71 (93) 100 12/03/18 04:00 Venturi Mask 10.0 12/03/18 04:00 102 12/03/18 04:00 30 12/03/18 03:13 104 18 98 Facial 30 12/03/18 03:00 98 14 138/64 (88) 100 12/03/18 02:00 100 15 133/67 (89) 100 12/03/18 01:04 97 15 100 Facial 30 12/03/18 01:00 99 14 135/65 (88) 100 12/03/18 00:00 Venturi Mask 10.0 12/03/18 00:00 105 12/03/18 00:00 98.6 105 14 129/70 (89) 100 12/03/18 00:00 30 12/02/18 23:05 111 15 100 Facial 30 12/02/18 23:00 108 14 136/69 (91) 99 12/02/18 22:00 114 16 134/66 (88) 98 12/02/18 22:00 30 12/02/18 21:00 98.4 111 15 116/62 (80) 98 12/02/18 20:00 Venturi Mask 10.0 12/02/18 20:00 112 17 135/65 (88) 98 12/02/18 20:00 10.0 45 12/02/18 20:00 114 12/02/18 19:00 Venturi Mask 10.0 40 12/02/18 19:00 110 17 137/59 (85) 97 12/02/18 19:00 100 Venturi Mask 10.0 45 12/02/18 18:00 112 17 146/78 (100) 97 12/02/18 17:00 100 14 107/53 (71) 98 12/02/18 16:00 98.5 105 16 128/71 (90) 96 12/02/18 16:00 10.0 45 12/02/18 16:00 Venturi Mask 10.0 12/02/18 16:00 105 12/02/18 15:39 145/72 12/02/18 15:00 100 15 145/72 (96) 96 12/02/18 14:00 96 13 135/64 (87) 96 12/02/18 13:00 89 12 103/53 (70) 97 12/02/18 12:00 97.8 96 12 120/59 (79) 95 12/02/18 12:00 10.0 45 12/02/18 12:00 Venturi Mask 10.0 12/02/18 12:00 101 12/02/18 11:20 101 17 95 12/02/18 11:00 86 11 130/58 (82) 100 Status: awake - sa, obtunded Condition: improving HEENT: atraumatic, normocephalic Neck: full ROM Lungs: rales - @ R > L base Heart: HR/BP stable Abdomen: soft, non-tender, active bowel sounds Extremities: no C/C/E Decubiti: location - sacral red Micro: Microbiology Date/Time Source Procedure Growth Status 12/01/18 00:20 Blood Blood Culture - Preliminary Gram Negative Rosalino Resulted 12/01/18 00:05 Blood Blood Culture - Preliminary Gram Negative Rosalino Resulted 12/01/18 00:31 Nasal Nares Influenza Types A,B Antigen (KYLE) - Final Complete 12/01/18 00:20 Nose MRSA Culture - Final Staphylococcus Aureus - Mrsa Complete 12/01/18 00:47 Urine,Clean Catch Urine Culture - Preliminary Escherichia Coli Resulted 12/01/18 00:47 Sacral Wound Gram Stain - Final Resulted 12/01/18 00:47 Wound Culture - Preliminary Proteus Mirabilis Gram Negative Bacillus 2 Resulted 12/01/18 00:20 Rectum - Final NO CARBAPENEM-RESISTANT ENTEROBACTERI... Complete 12/01/18 00:20 Rectum VRE Culture - Final Enterococcus Faecalis - Vre Complete Accucheck: 206 Blood Sugars: BS controlled Critical Care - Subjective ROS Limited/Unobtainable: Yes ICU Day: 3 Intubation Day: Off BiPAP on 3L NC Interval Events: GNR sepsis Off pressors Brandi TF's AFVSS No distress Condition: improving IV Access: central - R femoral CVC EKG Rhythm: Sinus Tachycardia FI02: 40 Sputum Amount: None Fluids: D5NS@100 Tube Feeding Amount: 60 I&O: Intake and Output 12/02/18 12/03/18 18:59 06:59 Intake Total 2582.5 ml 2100.0 ml Output Total 750 ml 770 ml Balance 1832.5 ml 1330.0 ml Free Water 20 ml 60 ml IV Total 2377.5 ml 1585.0 ml Tube Feeding 185 ml 455 ml Output Urine Total 750 ml 770 ml # Voids 375 Subjective: DONG Labs: Laboratory Tests Test 12/03/18 05:00 White Blood Count 3.9 K/UL (4.8-10.8) L Red Blood Count 2.25 M/UL (4.20-5.40) L Hemoglobin 7.1 G/DL (12.0-16.0) L Hematocrit 22.4 % (37.0-47.0) L Mean Corpuscular Volume 100 FL (80-99) H Mean Corpuscular Hemoglobin 31.6 PG (27.0-31.0) H Mean Corpuscular Hemoglobin Concent 31.7 G/DL (32.0-36.0) L Red Cell Distribution Width 14.9 % (11.6-14.8) H Platelet Count 47 K/UL (150-450) L Mean Platelet Volume 12.0 FL (6.5-10.1) H Neutrophils (%) (Auto) % (45.0-75.0) Lymphocytes (%) (Auto) % (20.0-45.0) Monocytes (%) (Auto) % (1.0-10.0) Eosinophils (%) (Auto) % (0.0-3.0) Basophils (%) (Auto) % (0.0-2.0) Differential Total Cells Counted 100 Neutrophils % (Manual) 84 % (45-75) H Lymphocytes % (Manual) 8 % (20-45) L Monocytes % (Manual) 5 % (1-10) Eosinophils % (Manual) 2 % (0-3) Basophils % (Manual) 0 % (0-2) Band Neutrophils 1 % (0-8) Platelet Estimate Decreased L Platelet Morphology Giant Platelets Rare Hypochromasia 1+ Anisocytosis 1+ Macrocytosis 1+ Sodium Level 149 MMOL/L (136-145) H Potassium Level 3.4 MMOL/L (3.5-5.1) L Chloride Level 120 MMOL/L (98-107) H Carbon Dioxide Level 23 MMOL/L (21-32) Anion Gap 6 mmol/L (5-15) Blood Urea Nitrogen 16 mg/dL (7-18) Creatinine 0.7 MG/DL (0.55-1.30) Estimat Glomerular Filtration Rate mL/min (>60) Glucose Level 201 MG/DL (74-106) H Uric Acid 2.4 MG/DL (2.6-7.2) L Calcium Level 7.9 MG/DL (8.5-10.1) L Phosphorus Level 2.3 MG/DL (2.5-4.9) L Magnesium Level 2.3 MG/DL (1.8-2.4) Total Bilirubin 0.3 MG/DL (0.2-1.0) Aspartate Amino Transf (AST/SGOT) 29 U/L (15-37) Alanine Aminotransferase (ALT/SGPT) 25 U/L (12-78) Alkaline Phosphatase 72 U/L (46-116) C-Reactive Protein, Quantitative 12.5 mg/dL (0.00-0.90) H Pro-B-Type Natriuretic Peptide 2821 pg/mL (0-125) H Total Protein 5.3 G/DL (6.4-8.2) L Albumin 1.4 G/DL (3.4-5.0) L Globulin 3.9 g/dL Albumin/Globulin Ratio 0.4 (1.0-2.7) L Foreign Parekh MD Dec 03, 2018 10:50
--- NOTE | 2018-12-03 11:15 | NUR ---
NURSE NOTES: Dr. Parekh at bedside to assess the patient. MD made aware of abnormal lab results, IVF changed. okay to transfer patient to [facility]. Addendum: 12/03/18 at 1118 by VIET GOMEZ RN Pt's 's number given to MD for update on pt's condition.
[2018-12-03] MEDS ORDERED: D5 1/2NS w/KCl 20mEq 1,000 ML IV SCH (12:00)
--- NOTE | 2018-12-03 12:00 | Infectious Diseases Prog Note ---
Assessment/Plan Assessment/Plan antibiotics : vancomycin iv, zosyn A 1. gram negative sepsis 2. e.coli UTI 3. septic shock 4. diabetes mellitus 5. anemia 6. 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 continue iv vancomycin, zosyn 2. will follow up cultures Subjective ROS Limited/Unobtainable: Yes Allergies: Coded Allergies: No Known Allergies (Unverified , 07/26/18) Objective Vital Signs Last 24 Hour Vital Signs Date Time Temp Pulse Resp B/P (MAP) Pulse Ox O2 Delivery O2 Flow Rate FiO2 12/03/18 11:00 115 18 151/70 (97) 99 12/03/18 10:00 112 18 146/74 (98) 100 12/03/18 09:00 113 18 138/73 (94) 99 12/03/18 08:00 3.0 12/03/18 08:00 110 12/03/18 08:00 Nasal Cannula 3.0 12/03/18 08:00 98.8 108 17 130/70 (90) 99 12/03/18 07:00 109 18 150/80 (103) 99 12/03/18 06:40 98 Venturi Mask 10.0 45 12/03/18 06:40 Venturi Mask 10.0 40 12/03/18 06:00 3.0 12/03/18 06:00 109 19 145/65 (91) 97 12/03/18 05:41 150/65 12/03/18 05:08 112 19 97 3.0 32 12/03/18 05:00 110 14 150/65 (93) 98 12/03/18 04:00 98.3 102 15 137/71 (93) 100 12/03/18 04:00 Venturi Mask 10.0 12/03/18 04:00 102 12/03/18 04:00 30 12/03/18 03:13 104 18 98 Facial 30 12/03/18 03:00 98 14 138/64 (88) 100 12/03/18 02:00 100 15 133/67 (89) 100 12/03/18 01:04 97 15 100 Facial 30 12/03/18 01:00 99 14 135/65 (88) 100 12/03/18 00:00 Venturi Mask 10.0 12/03/18 00:00 105 12/03/18 00:00 98.6 105 14 129/70 (89) 100 12/03/18 00:00 30 12/02/18 23:05 111 15 100 Facial 30 12/02/18 23:00 108 14 136/69 (91) 99 12/02/18 22:00 114 16 134/66 (88) 98 12/02/18 22:00 30 12/02/18 21:00 98.4 111 15 116/62 (80) 98 12/02/18 20:00 Venturi Mask 10.0 12/02/18 20:00 112 17 135/65 (88) 98 12/02/18 20:00 10.0 45 12/02/18 20:00 114 12/02/18 19:00 Venturi Mask 10.0 40 12/02/18 19:00 110 17 137/59 (85) 97 12/02/18 19:00 100 Venturi Mask 10.0 45 12/02/18 18:00 112 17 146/78 (100) 97 12/02/18 17:00 100 14 107/53 (71) 98 12/02/18 16:00 98.5 105 16 128/71 (90) 96 12/02/18 16:00 10.0 45 12/02/18 16:00 Venturi Mask 10.0 12/02/18 16:00 105 12/02/18 15:39 145/72 12/02/18 15:00 100 15 145/72 (96) 96 12/02/18 14:00 96 13 135/64 (87) 96 12/02/18 13:00 89 12 103/53 (70) 97 12/02/18 12:00 97.8 96 12 120/59 (79) 95 12/02/18 12:00 10.0 45 12/02/18 12:00 Venturi Mask 10.0 12/02/18 12:00 101 Height (Feet): 5 Height (Inches): 3.00 Weight (Pounds): 122 Respiratory/Chest: lungs clear Cardiovascular: normal rate, regular rhythm, no gallop/murmur Abdomen: soft, non tender, other - GT Extremities: no edema Microbiology Date/Time Source Procedure Growth Status 12/01/18 00:20 Blood Blood Culture - Preliminary Gram Negative Rosalino Resulted 12/01/18 00:05 Blood Blood Culture - Preliminary Gram Negative Rosalino Resulted 12/01/18 00:31 Nasal Nares Influenza Types A,B Antigen (KYLE) - Final Complete 12/01/18 00:20 Nose MRSA Culture - Final Staphylococcus Aureus - Mrsa Complete 12/01/18 00:47 Urine,Clean Catch Urine Culture - Preliminary Escherichia Coli Resulted 12/01/18 00:47 Sacral Wound Gram Stain - Final Resulted 12/01/18 00:47 Wound Culture - Preliminary Proteus Mirabilis Gram Negative Bacillus 2 Resulted 12/01/18 00:20 Rectum - Final NO CARBAPENEM-RESISTANT ENTEROBACTERI... Complete 12/01/18 00:20 Rectum VRE Culture - Final Enterococcus Faecalis - Vre Complete Laboratory Tests Test 12/03/18 05:00 White Blood Count 3.9 K/UL (4.8-10.8) L Red Blood Count 2.25 M/UL (4.20-5.40) L Hemoglobin 7.1 G/DL (12.0-16.0) L Hematocrit 22.4 % (37.0-47.0) L Mean Corpuscular Volume 100 FL (80-99) H Mean Corpuscular Hemoglobin 31.6 PG (27.0-31.0) H Mean Corpuscular Hemoglobin Concent 31.7 G/DL (32.0-36.0) L Red Cell Distribution Width 14.9 % (11.6-14.8) H Platelet Count 47 K/UL (150-450) L Mean Platelet Volume 12.0 FL (6.5-10.1) H Neutrophils (%) (Auto) % (45.0-75.0) Lymphocytes (%) (Auto) % (20.0-45.0) Monocytes (%) (Auto) % (1.0-10.0) Eosinophils (%) (Auto) % (0.0-3.0) Basophils (%) (Auto) % (0.0-2.0) Differential Total Cells Counted 100 Neutrophils % (Manual) 84 % (45-75) H Lymphocytes % (Manual) 8 % (20-45) L Monocytes % (Manual) 5 % (1-10) Eosinophils % (Manual) 2 % (0-3) Basophils % (Manual) 0 % (0-2) Band Neutrophils 1 % (0-8) Platelet Estimate Decreased L Platelet Morphology Giant Platelets Rare Hypochromasia 1+ Anisocytosis 1+ Macrocytosis 1+ Sodium Level 149 MMOL/L (136-145) H Potassium Level 3.4 MMOL/L (3.5-5.1) L Chloride Level 120 MMOL/L (98-107) H Carbon Dioxide Level 23 MMOL/L (21-32) Anion Gap 6 mmol/L (5-15) Blood Urea Nitrogen 16 mg/dL (7-18) Creatinine 0.7 MG/DL (0.55-1.30) Estimat Glomerular Filtration Rate mL/min (>60) Glucose Level 201 MG/DL (74-106) H Uric Acid 2.4 MG/DL (2.6-7.2) L Calcium Level 7.9 MG/DL (8.5-10.1) L Phosphorus Level 2.3 MG/DL (2.5-4.9) L Magnesium Level 2.3 MG/DL (1.8-2.4) Total Bilirubin 0.3 MG/DL (0.2-1.0) Aspartate Amino Transf (AST/SGOT) 29 U/L (15-37) Alanine Aminotransferase (ALT/SGPT) 25 U/L (12-78) Alkaline Phosphatase 72 U/L (46-116) C-Reactive Protein, Quantitative 12.5 mg/dL (0.00-0.90) H Pro-B-Type Natriuretic Peptide 2821 pg/mL (0-125) H Total Protein 5.3 G/DL (6.4-8.2) L Albumin 1.4 G/DL (3.4-5.0) L Globulin 3.9 g/dL Albumin/Globulin Ratio 0.4 (1.0-2.7) L Current Medications Medications (Trade) Dose Ordered Sig/Laure Route PRN Reason Start Time Stop Time Status Last Admin Dose Admin Acetaminophen (Tylenol) 650 mg Q4HR PRN NG Mild Pain/Temp > 100.5 12/02/18 04:15 01/01/19 04:14 12/02/18 04:33 Albuterol/ Ipratropium (Albuterol/ Ipratropium) 3 ml Q4H PRN HHN Shortness of Breath 12/01/18 10:15 12/06/18 10:14 Chlorhexidine Gluconate (Georgina-Hex 2%) 1 applic DAILY@2000 TOPIC 12/01/18 20:00 12/31/18 19:59 12/02/18 20:04 Dextrose (Dextrose 50%) 25 ml Q30M PRN IV Hypoglycemia 12/01/18 12:30 12/31/18 12:29 Dextrose (Dextrose 50%) 50 ml Q30M PRN IV Hypoglycemia 12/01/18 12:30 12/31/18 12:29 Dextrose/ Electrolytes 1,000 ml @ 75 mls/hr [id number] IV 12/03/18 12:00 01/02/19 11:59 12/03/18 11:45 Insulin Aspart (NovoLOG) Q6HR SUBQ 12/01/18 18:00 12/31/18 17:59 12/03/18 11:45 Nitroglycerin (Ntg) 1 patch Q24H TDERMAL 12/02/18 16:00 01/01/19 15:59 12/02/18 15:39 Norepinephrine Bitartrate 4 mg/ Dextrose 250 ml @ 0 mls/hr Q24H IV 12/01/18 06:30 12/31/18 06:29 12/01/18 06:43 Ondansetron HCl (Zofran) 4 mg Q6H PRN IVP Nausea & Vomiting 12/01/18 10:15 12/31/18 10:14 Piperacillin Sod/ Tazobactam Sod 3.375 gm/Dextrose 110 ml @ 27.5 mls/hr EVERY 8 HOURS IVPB 12/01/18 14:00 12/06/18 13:59 12/03/18 05:41 Potassium Phosphate 20 mm/ Sodium Chloride 281.6667 ml @ 46.944 m... ONCE ONCE IV 12/03/18 12:30 12/03/18 18:29 Vancomycin HCl (Vanco rx to dose) 1 ea DAILY PRN MISC Per rx protocol 12/01/18 10:15 12/31/18 10:14 Vancomycin HCl 750 mg/Sodium Chloride 275 ml @ 183.333 mls/hr Q24H IVPB 12/02/18 05:00 12/07/18 04:59 12/03/18 05:14 Jasmine Lechuga MD Dec 03, 2018 12:00
[2018-12-03] MEDS ORDERED: Potassium Phosphate 20 MM in NS 275 ML IV ONE ×2 (12:30→14:30)
--- NOTE | 2018-12-03 13:00 | NUR ---
NURSE NOTES: Received patient from DONIS Rodríguez. Patient VS stable at this time with no sign of acute distress. Patient is resting at this time. Patient is not opening eyes at this time. Patient is on 3L NC at this time with oxygen saturation of 97% at this time. Patient has an order for BiPAP PRN and QHS. Patient has a G tube that is patent, asymptomatic, and running Vital AF 1.2 at 60mL/hr at this time. Patient has a sacral stage 2 that is covered at this time. Patient is on a P200 mattress at this time. patient has bilateral heel stage 1 pressure ulcers that are covered with optifoam. Patient has a right femoral TLC that is patent and asymptomatic at this time. Patient has a vera for urine retention that is patent, and asymptomatic and draining at this time. Patient bed in low position with bed alarm on and call light in reach at this time.
--- NOTE | 2018-12-03 13:00 | NUR ---
TRANSFER TO FLOOR: Patient transferred to [facility]. Report given to DONIS Morel. Patient has no belongings. medications given to primary RN.
[2018-12-03] MEDS ORDERED: Albuterol/Ipratropium 3ml neb HHN PRN (14:15)
[2018-12-03] MEDS: D5 1/2NS w/KCl 20mEq 1,000 ML IV SCH (14:43)
--- NOTE | 2018-12-03 15:01 | General Progress Note ---
Assessment/Plan Problem List: (1) UTI (urinary tract infection) ICD Codes: N39.0 - Urinary tract infection, site not specified SNOMED: 30319749 Qualifiers: Qualified Codes: N39.0 - Urinary tract infection, site not specified (2) Pneumonia ICD Codes: J18.9 - Pneumonia, unspecified organism SNOMED: 654310396, 027240998, 949572782 Qualifiers: Qualified Codes: J18.1 - Lobar pneumonia, unspecified organism (3) Elevated troponin ICD Codes: R74.8 - Abnormal levels of other serum enzymes SNOMED: 040481358, 327306026, 495128378 (4) Dehydration ICD Codes: E86.0 - Dehydration SNOMED: 29093923 (5) Hypokalemia ICD Codes: E87.6 - Hypokalemia SNOMED: 45544768 (6) Malnutrition ICD Codes: E46 - Unspecified protein-calorie malnutrition SNOMED: 70049845 (7) Dementia with behavioral disturbance ICD Codes: F03.91 - Unspecified dementia with behavioral disturbance SNOMED: 5967062112184 (8) Encephalopathy due to metabolic factor or toxin SNOMED: 935056604 (9) Anemia ICD Codes: D64.9 - Anemia, unspecified SNOMED: 093573038 (10) Sepsis ICD Codes: A41.9 - Sepsis, unspecified organism SNOMED: 37561454 Qualifiers: Qualified Codes: A41.9 - Sepsis, unspecified organism (11) Diabetic nephropathy 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 SNOMED: 641261191 Status: progressing Assessment/Plan reviewed chart and meds check h/h check lytes anemia sepsis encephalopathy Subjective ROS Limited/Unobtainable: Yes Allergies: Coded Allergies: No Known Allergies (Unverified , 07/26/18) Objective Last 24 Hour Vital Signs Date Time Temp Pulse Resp B/P (MAP) Pulse Ox O2 Delivery O2 Flow Rate FiO2 12/03/18 12:00 116 12/03/18 12:00 98.2 115 18 150/69 (96) 99 12/03/18 12:00 Nasal Cannula 3.0 12/03/18 12:00 3.0 12/03/18 11:00 115 18 151/70 (97) 99 12/03/18 10:00 112 18 146/74 (98) 100 12/03/18 09:00 113 18 138/73 (94) 99 12/03/18 08:00 3.0 12/03/18 08:00 110 12/03/18 08:00 Nasal Cannula 3.0 12/03/18 08:00 98.8 108 17 130/70 (90) 99 12/03/18 07:00 109 18 150/80 (103) 99 12/03/18 06:40 98 Venturi Mask 10.0 45 12/03/18 06:40 Venturi Mask 10.0 40 12/03/18 06:00 3.0 12/03/18 06:00 109 19 145/65 (91) 97 12/03/18 05:41 150/65 12/03/18 05:08 112 19 97 3.0 32 12/03/18 05:00 110 14 150/65 (93) 98 12/03/18 04:00 98.3 102 15 137/71 (93) 100 12/03/18 04:00 Venturi Mask 10.0 12/03/18 04:00 102 12/03/18 04:00 30 12/03/18 03:13 104 18 98 Facial 30 12/03/18 03:00 98 14 138/64 (88) 100 12/03/18 02:00 100 15 133/67 (89) 100 12/03/18 01:04 97 15 100 Facial 30 12/03/18 01:00 99 14 135/65 (88) 100 12/03/18 00:00 Venturi Mask 10.0 12/03/18 00:00 105 12/03/18 00:00 98.6 105 14 129/70 (89) 100 12/03/18 00:00 30 12/02/18 23:05 111 15 100 Facial 30 12/02/18 23:00 108 14 136/69 (91) 99 12/02/18 22:00 114 16 134/66 (88) 98 12/02/18 22:00 30 12/02/18 21:00 98.4 111 15 116/62 (80) 98 12/02/18 20:00 Venturi Mask 10.0 12/02/18 20:00 112 17 135/65 (88) 98 12/02/18 20:00 10.0 45 12/02/18 20:00 114 12/02/18 19:00 Venturi Mask 10.0 40 12/02/18 19:00 110 17 137/59 (85) 97 12/02/18 19:00 100 Venturi Mask 10.0 45 12/02/18 18:00 112 17 146/78 (100) 97 12/02/18 17:00 100 14 107/53 (71) 98 12/02/18 16:00 98.5 105 16 128/71 (90) 96 12/02/18 16:00 10.0 45 12/02/18 16:00 Venturi Mask 10.0 12/02/18 16:00 105 12/02/18 15:39 145/72 12/02/18 15:00 100 15 145/72 (96) 96 Intake and Output 12/02/18 12/03/18 19:00 07:00 Intake Total 2555.0 ml 2150.0 ml Output Total 750 ml 850 ml Balance 1805.0 ml 1300.0 ml Free Water 20 ml 60 ml IV Total 2350.0 ml 1585.0 ml Tube Feeding 185 ml 505 ml Output Urine Total 750 ml 850 ml # Voids 325 Laboratory Tests 12/03/18 05:00: White Blood Count 3.9L, Red Blood Count 2.25L, Hemoglobin 7.1L, Hematocrit 22.4L , Mean Corpuscular Volume 100H, Mean Corpuscular Hemoglobin 31.6H, Mean Corpuscular Hemoglobin Concent 31.7L, Red Cell Distribution Width 14.9H, Platelet Count 47L, Mean Platelet Volume 12.0H, Neutrophils (%) (Auto) , Lymphocytes (%) (Auto) , Monocytes (%) (Auto) , Eosinophils (%) (Auto) , Basophils (%) (Auto) , Differential Total Cells Counted 100, Neutrophils % ( Manual) 84H, Lymphocytes % (Manual) 8L, Monocytes % (Manual) 5, Eosinophils % ( Manual) 2, Basophils % (Manual) 0, Band Neutrophils 1, Platelet Estimate DecreasedL, Platelet Morphology , Giant Platelets Rare, Hypochromasia 1+, Anisocytosis 1+, Macrocytosis 1+, Sodium Level 149H, Potassium Level 3.4L, Chloride Level 120H, Carbon Dioxide Level 23, Anion Gap 6, Blood Urea Nitrogen 16, Creatinine 0.7, Estimat Glomerular Filtration Rate , Glucose Level 201H, Uric Acid 2.4L, Calcium Level 7.9L, Phosphorus Level 2.3L, Magnesium Level 2.3, Total Bilirubin 0.3, Aspartate Amino Transf (AST/SGOT) 29, Alanine Aminotransferase (ALT/SGPT) 25, Alkaline Phosphatase 72, C-Reactive Protein, Quantitative 12.5H, Pro-B-Type Natriuretic Peptide 2821H, Total Protein 5.3L, Albumin 1.4L, Globulin 3.9, Albumin/Globulin Ratio 0.4L Height (Feet): 5 Height (Inches): 3.00 Weight (Pounds): 122 Cardiovascular: normal rate Respiratory/Chest: lungs clear Abdomen: soft Yi Asencio MD Dec 03, 2018 15:01
--- NOTE | 2018-12-03 15:13 | Nephrology Progress Note ---
Assessment/Plan Problem List: (1) Sepsis Assessment: low bp (2) Oliguria Assessment: due low bp (3) Anemia (4) Hypokalemia (5) Diabetic nephropathy (6) Elevated troponin I level Assessment Oliguria due to low BP Sepsis and low BP Elevated troponin UTI (urinary tract infection) Pneumonia Anemia DM+ Proteinuria: Nephropathy s/p IVC Filter Acute encephalopathy HypoAlbuminemia Plan K Phos , KCl , MgSo4 IV ordered Fluid challenge antibiotics avoid nephrotoxics anemia mac per orders Subjective ROS Limited/Unobtainable: No Constitutional: Reports: malaise Objective Objective Last 24 Hour Vital Signs Date Time Temp Pulse Resp B/P (MAP) Pulse Ox O2 Delivery O2 Flow Rate FiO2 12/03/18 12:00 116 12/03/18 12:00 98.2 115 18 150/69 (96) 99 12/03/18 12:00 Nasal Cannula 3.0 12/03/18 12:00 3.0 12/03/18 11:00 115 18 151/70 (97) 99 12/03/18 10:00 112 18 146/74 (98) 100 12/03/18 09:00 113 18 138/73 (94) 99 12/03/18 08:00 3.0 12/03/18 08:00 110 12/03/18 08:00 Nasal Cannula 3.0 12/03/18 08:00 98.8 108 17 130/70 (90) 99 12/03/18 07:00 109 18 150/80 (103) 99 12/03/18 06:40 98 Venturi Mask 10.0 45 12/03/18 06:40 Venturi Mask 10.0 40 12/03/18 06:00 3.0 12/03/18 06:00 109 19 145/65 (91) 97 12/03/18 05:41 150/65 12/03/18 05:08 112 19 97 3.0 32 12/03/18 05:00 110 14 150/65 (93) 98 12/03/18 04:00 98.3 102 15 137/71 (93) 100 12/03/18 04:00 Venturi Mask 10.0 12/03/18 04:00 102 12/03/18 04:00 30 12/03/18 03:13 104 18 98 Facial 30 12/03/18 03:00 98 14 138/64 (88) 100 12/03/18 02:00 100 15 133/67 (89) 100 12/03/18 01:04 97 15 100 Facial 30 12/03/18 01:00 99 14 135/65 (88) 100 12/03/18 00:00 Venturi Mask 10.0 12/03/18 00:00 105 12/03/18 00:00 98.6 105 14 129/70 (89) 100 12/03/18 00:00 30 12/02/18 23:05 111 15 100 Facial 30 12/02/18 23:00 108 14 136/69 (91) 99 12/02/18 22:00 114 16 134/66 (88) 98 12/02/18 22:00 30 12/02/18 21:00 98.4 111 15 116/62 (80) 98 12/02/18 20:00 Venturi Mask 10.0 12/02/18 20:00 112 17 135/65 (88) 98 12/02/18 20:00 10.0 45 12/02/18 20:00 114 12/02/18 19:00 Venturi Mask 10.0 40 12/02/18 19:00 110 17 137/59 (85) 97 12/02/18 19:00 100 Venturi Mask 10.0 45 12/02/18 18:00 112 17 146/78 (100) 97 12/02/18 17:00 100 14 107/53 (71) 98 12/02/18 16:00 98.5 105 16 128/71 (90) 96 12/02/18 16:00 10.0 45 12/02/18 16:00 Venturi Mask 10.0 12/02/18 16:00 105 12/02/18 15:39 145/72 Intake and Output 12/02/18 12/03/18 19:00 07:00 Intake Total 2555.0 ml 2150.0 ml Output Total 750 ml 850 ml Balance 1805.0 ml 1300.0 ml Free Water 20 ml 60 ml IV Total 2350.0 ml 1585.0 ml Tube Feeding 185 ml 505 ml Output Urine Total 750 ml 850 ml # Voids 325 Laboratory Tests 12/03/18 05:00: White Blood Count 3.9L, Red Blood Count 2.25L, Hemoglobin 7.1L, Hematocrit 22.4L , Mean Corpuscular Volume 100H, Mean Corpuscular Hemoglobin 31.6H, Mean Corpuscular Hemoglobin Concent 31.7L, Red Cell Distribution Width 14.9H, Platelet Count 47L, Mean Platelet Volume 12.0H, Neutrophils (%) (Auto) , Lymphocytes (%) (Auto) , Monocytes (%) (Auto) , Eosinophils (%) (Auto) , Basophils (%) (Auto) , Differential Total Cells Counted 100, Neutrophils % ( Manual) 84H, Lymphocytes % (Manual) 8L, Monocytes % (Manual) 5, Eosinophils % ( Manual) 2, Basophils % (Manual) 0, Band Neutrophils 1, Platelet Estimate DecreasedL, Platelet Morphology , Giant Platelets Rare, Hypochromasia 1+, Anisocytosis 1+, Macrocytosis 1+, Sodium Level 149H, Potassium Level 3.4L, Chloride Level 120H, Carbon Dioxide Level 23, Anion Gap 6, Blood Urea Nitrogen 16, Creatinine 0.7, Estimat Glomerular Filtration Rate , Glucose Level 201H, Uric Acid 2.4L, Calcium Level 7.9L, Phosphorus Level 2.3L, Magnesium Level 2.3, Total Bilirubin 0.3, Aspartate Amino Transf (AST/SGOT) 29, Alanine Aminotransferase (ALT/SGPT) 25, Alkaline Phosphatase 72, C-Reactive Protein, Quantitative 12.5H, Pro-B-Type Natriuretic Peptide 2821H, Total Protein 5.3L, Albumin 1.4L, Globulin 3.9, Albumin/Globulin Ratio 0.4L Height (Feet): 5 Height (Inches): 3.00 Weight (Pounds): 122 Cardiovascular: tachycardia Respiratory/Chest: decreased breath sounds Abdomen: distended Parvez Bergman MD Dec 03, 2018 15:13
[2018-12-03] MEDS: Nitroglycerin Patch 0.4mg TDERMAL SCH (15:43)
--- NOTE | 2018-12-03 15:53 | General Progress Note ---
Assessment/Plan Assessment/Plan Assessment/Plan Problem List: (1) Feeding by G-tube, dysphagia ICD Codes: Z93.1 - Gastrostomy status SNOMED: 531367549, 009035708, 475007905 (2) S/P IVC filter ICD Codes: Z95.828 - Presence of other vascular implants and grafts SNOMED: 32909614, 396676086, 931178106 (3) Sepsis ICD Codes: A41.9 - Sepsis, unspecified organism SNOMED: 10297134 Qualifiers: Qualified Codes: A41.9 - Sepsis, unspecified organism (4) Anemia ICD Codes: D64.9 - Anemia, unspecified SNOMED: 723622613 (5) Thrombocytopenia ICD Codes: D69.6 - Thrombocytopenia, unspecified SNOMED: 337387689 (6) Dementia with behavioral disturbance ICD Codes: F03.91 - Unspecified dementia with behavioral disturbance Assessment/Plan GTF while off of BIPAP fu labs abx per ID supportive care fu Subjective Allergies: Coded Allergies: No Known Allergies (Unverified , 07/26/18) Subjective above noted seen in ICU with RN tolerating TF off BIPAP Objective Last 24 Hour Vital Signs Date Time Temp Pulse Resp B/P (MAP) Pulse Ox O2 Delivery O2 Flow Rate FiO2 12/03/18 15:43 153/87 12/03/18 13:00 98.0 128 24 153/87 (109) 96 12/03/18 12:00 116 12/03/18 12:00 98.2 115 18 150/69 (96) 99 12/03/18 12:00 Nasal Cannula 3.0 12/03/18 12:00 3.0 12/03/18 11:00 115 18 151/70 (97) 99 12/03/18 10:00 112 18 146/74 (98) 100 12/03/18 09:00 113 18 138/73 (94) 99 12/03/18 08:00 3.0 12/03/18 08:00 110 12/03/18 08:00 Nasal Cannula 3.0 12/03/18 08:00 98.8 108 17 130/70 (90) 99 12/03/18 07:00 109 18 150/80 (103) 99 12/03/18 06:40 98 Venturi Mask 10.0 45 12/03/18 06:40 Venturi Mask 10.0 40 12/03/18 06:00 3.0 12/03/18 06:00 109 19 145/65 (91) 97 12/03/18 05:41 150/65 12/03/18 05:08 112 19 97 3.0 32 12/03/18 05:00 110 14 150/65 (93) 98 12/03/18 04:00 98.3 102 15 137/71 (93) 100 12/03/18 04:00 Venturi Mask 10.0 12/03/18 04:00 102 12/03/18 04:00 30 12/03/18 03:13 104 18 98 Facial 30 12/03/18 03:00 98 14 138/64 (88) 100 12/03/18 02:00 100 15 133/67 (89) 100 12/03/18 01:04 97 15 100 Facial 30 12/03/18 01:00 99 14 135/65 (88) 100 12/03/18 00:00 Venturi Mask 10.0 12/03/18 00:00 105 12/03/18 00:00 98.6 105 14 129/70 (89) 100 12/03/18 00:00 30 12/02/18 23:05 111 15 100 Facial 30 12/02/18 23:00 108 14 136/69 (91) 99 12/02/18 22:00 114 16 134/66 (88) 98 12/02/18 22:00 30 12/02/18 21:00 98.4 111 15 116/62 (80) 98 12/02/18 20:00 Venturi Mask 10.0 12/02/18 20:00 112 17 135/65 (88) 98 12/02/18 20:00 10.0 45 12/02/18 20:00 114 12/02/18 19:00 Venturi Mask 10.0 40 12/02/18 19:00 110 17 137/59 (85) 97 12/02/18 19:00 100 Venturi Mask 10.0 45 12/02/18 18:00 112 17 146/78 (100) 97 12/02/18 17:00 100 14 107/53 (71) 98 12/02/18 16:00 98.5 105 16 128/71 (90) 96 12/02/18 16:00 10.0 45 12/02/18 16:00 Venturi Mask 10.0 12/02/18 16:00 105 Intake and Output 12/02/18 12/03/18 19:00 07:00 Intake Total 2555.0 ml 2150.0 ml Output Total 750 ml 850 ml Balance 1805.0 ml 1300.0 ml Free Water 20 ml 60 ml IV Total 2350.0 ml 1585.0 ml Tube Feeding 185 ml 505 ml Output Urine Total 750 ml 850 ml # Voids 325 Laboratory Tests 12/03/18 05:00: White Blood Count 3.9L, Red Blood Count 2.25L, Hemoglobin 7.1L, Hematocrit 22.4L , Mean Corpuscular Volume 100H, Mean Corpuscular Hemoglobin 31.6H, Mean Corpuscular Hemoglobin Concent 31.7L, Red Cell Distribution Width 14.9H, Platelet Count 47L, Mean Platelet Volume 12.0H, Neutrophils (%) (Auto) , Lymphocytes (%) (Auto) , Monocytes (%) (Auto) , Eosinophils (%) (Auto) , Basophils (%) (Auto) , Differential Total Cells Counted 100, Neutrophils % ( Manual) 84H, Lymphocytes % (Manual) 8L, Monocytes % (Manual) 5, Eosinophils % ( Manual) 2, Basophils % (Manual) 0, Band Neutrophils 1, Platelet Estimate DecreasedL, Platelet Morphology , Giant Platelets Rare, Hypochromasia 1+, Anisocytosis 1+, Macrocytosis 1+, Sodium Level 149H, Potassium Level 3.4L, Chloride Level 120H, Carbon Dioxide Level 23, Anion Gap 6, Blood Urea Nitrogen 16, Creatinine 0.7, Estimat Glomerular Filtration Rate , Glucose Level 201H, Uric Acid 2.4L, Calcium Level 7.9L, Phosphorus Level 2.3L, Magnesium Level 2.3, Total Bilirubin 0.3, Aspartate Amino Transf (AST/SGOT) 29, Alanine Aminotransferase (ALT/SGPT) 25, Alkaline Phosphatase 72, C-Reactive Protein, Quantitative 12.5H, Pro-B-Type Natriuretic Peptide 2821H, Total Protein 5.3L, Albumin 1.4L, Globulin 3.9, Albumin/Globulin Ratio 0.4L Height (Feet): 5 Height (Inches): 3.00 Weight (Pounds): 122 Objective Thin woman off BIPAP NCAT ETT Chest CTA RR abd Soft ND NT no edema Khorrami,Payman MD Dec 03, 2018 15:53
--- NOTE | 2018-12-03 16:08 | NUR ---
NURSE NOTES: Patient in sustained sinus tachycardia at this time. Patient rate 128-130. ECG shows sinus tachy with ST and T wave abnormality. Left message for Dr Aldana at this time. Patient has an order for Nitro patch at 1600. Nitro patch applied at this time.
--- NOTE | 2018-12-03 16:48 | NUR ---
NURSE NOTES: Dr Aldana called back and ordered metoprolol 25mg one dose now and BID. He also ordered Digoxin 0.5mg IV once now.
[2018-12-03] MEDS ORDERED: Acetaminophen 650mg/20.3ml NG PRN (17:00)
[2018-12-03] MEDS ORDERED: Digoxin 0.5mg/2ml Inj IVP SCH (17:00)
[2018-12-03] MEDS: Metoprolol 25mg tab ORAL SCH (17:44)
--- NOTE | 2018-12-03 19:00 | Consultation ---
DATE OF CONSULTATION: 12/01/2018 CARDIOLOGY CONSULTATION CONSULTING PHYSICIAN: Deepak Aldana M.D. REFERRING PHYSICIAN: Yi Asencio M.D. REASON FOR CONSULTATION: Management of septic shock. HISTORY OF PRESENT ILLNESS: The patient is a very unfortunate 78-year-old female, resident of a nursing home facility, who was brought in to [facility] for evaluation of tachycardia and fever that has occurred on 12/01/2018 according to the nursing staff at the facility. The patient is nonverbal at baseline and cannot provide any history. This report is prepared by using a medical record. At the time of the emergency department evaluation, the patient was not in any distress, but she appeared to be chronically ill. Initial blood pressure was 104/52 mmHg and heart rate was 160. She was febrile with temperature of 104. Evaluation in the emergency department revealed leukopenia with white blood cells of 3.2, thrombocytopenia with platelet count of 54,000, and renal failure with BUN and creatinine of 48 and 1.2 respectively. Her troponin I level was elevated at 0.274 and proBNP of 880. Chest x-ray at the time of arrival to the hospital was significant for bilateral left greater than right interstitial and airspace edema versus infiltrates with small bilateral pleural effusion. The patient was diagnosed with bilateral pneumonia and septic shock and was transferred to intensive care unit of [facility]. Cardiology consultation was made for evaluation of tachycardia, septic shock, and elevation of troponin I level. PAST MEDICAL HISTORY: Includes diabetes mellitus, hypertension, dementia, psychiatric disorder, hyperlipidemia, metabolic encephalopathy, and CVA. PAST SURGICAL HISTORY: None. MEDICATIONS: List of medications in the nursing facility includes acetaminophen 650 q.4 h. p.r.n. fever, headache, and mild pain, amlodipine 10 mg p.o. daily, aspirin 81 mg p.o. daily, atorvastatin 20 mg p.o. at bedtime, Klonopin 0.5 mg twice daily, Catapres 0.1 mg every 4 hours p.r.n. systolic blood pressure above 160, ferrous sulfate 325 mg p.o. daily, Humalog insulin, milk of magnesia 30 mL p.o. daily p.r.n. constipation, multivitamin one tablet p.o. daily, Zofran 4 mg p.o. q.4 h. p.r.n. nausea and vomiting, K-Dur 20 mEq p.o. daily for only 7 days, Seroquel 25 mg p.o. twice daily, and senna 8.6 mg p.o. at bedtime. ALLERGIES: No known drug allergies. SOCIAL HISTORY: The patient denies any tobacco, alcohol, or illicit drug use according to the records. REVIEW OF SYSTEMS: As the patient is nonverbal, full system review could not be obtained. PHYSICAL EXAMINATION: VITAL SIGNS: Blood pressure at the time of arrival to the hospital was 104/52 mmHg and heart rate of 160, respirations of 16, temperature 104, and O2 saturation of 98% on room air. GENERAL: The patient is a chronically ill 78-year-old female, in no apparent respiratory distress. Nonverbal, lethargic, and cachectic. HEENT: Atraumatic and normocephalic. Anicteric. Pupils are equal, round, and reactive to light and accommodation. Extraocular muscles intact. NECK: JVP less than 5 cm. No carotid bruits. Carotid upstrokes 2+ bilaterally. CARDIOVASCULAR: Normal S1, S2. Tachycardic. No murmurs, gallops, or rubs. LUNGS: Diminished breath sounds in both bases with associated crackles in both bases. ABDOMEN: Soft, nontender, and nondistended. No hepatosplenomegaly. Positive bowel sounds. EXTREMITIES: No evidence of edema, clubbing, or cyanosis. LABORATORY FINDINGS: At the time of arrival to the hospital, WBC 3.2, hemoglobin 9.3, hematocrit of 28.5, and platelet count 54,000. Chemistry showed sodium 141, potassium is 4.5, chloride 106, bicarbonate 25, BUN of 48, creatinine 1.2, and glucose is 180. Calcium is 8.4. Troponin I is 0.274. ProBNP was 880. Blood gas, pH 7.41, pCO2 of 33.7, pO2 of 160.8, bicarbonate 21, and O2 saturation of 98.3%. ASSESSMENT AND PLAN: This is a very unfortunate 78-year-old female, who is seen in Cardiology consultation. 1. Septic shock most likely due to bilateral pneumonia as well as associated effusion. 2. Slight elevation of troponin I level could be secondary to sepsis although demand ischemia situation cannot be ruled out. 3. Prerenal azotemia. We will continue with D5 NS at 100 mL per hour. The patient is currently on Levophed drip. 4. We will try to keep the mean arterial pressure above 65 mmHg. 5. DVT status post IVC filter. 6. History of metabolic encephalopathy. 7. History of dementia. 8. History of CVA. 9. History of pancytopenia. 10. Sinus tachycardia likely secondary to underlying sepsis. The treatment of sinus tachycardia is the treatment of underlying etiology. We would like to obtain 2D echocardiography for assessment of the systolic and diastolic function. Further therapeutic and diagnostic decision will be based on results of the 2D echocardiography. 11. Small amount of time spent in evaluation of this patient in the intensive care unit of [facility], review of the old records, and discussing the plan of care with the primary care physician as well as the nursing staff was over 50 minutes. I would like to thank, Dr. Asencio, for the courtesy of this consultation. Deepak Aldana M.D. DR: MARISELA JOB#: [id number] CC:
--- NOTE | 2018-12-03 19:30 | NUR ---
HAND-OFF: Report given to DONIS Lock. Patient VS stable at this time with no sign of acute distress. Patient blood pressure is systolic 145 at this time. Patient HR is 105 sinus tachy. Endorsed to follow up.
--- NOTE | 2018-12-03 19:30 | NUR ---
NURSE NOTES: Received report from Levar Gonzalez RN. Patient is asleep in bed, arousable to light shaking, A/O x1, nonverbal. quality assurance monitor body shows sinus tach. Saturating well on 3L O2 via nasal cannula. Receiving Vital AF 1.2 @ 60cc/hr and tolerating well. Leiva catheter in place, draining well to gravity. Right femoral TLC, intact and patent, running D5 1/2 NS with KCl 20 meq @ 75 cc/hr. Bed locked in lowest position with side rails up x3. Call light left within reach. Will continue to monitor.
[2018-12-03] MEDS: Dyna-Hex 2% Top Sol 2oz TOPIC SCH (20:35)
--- NOTE | 2018-12-03 21:54 | NUR ---
HAND-OFF: Report given to Radha Tilley RN.
--- NOTE | 2018-12-03 21:54 | NUR ---
NURSE NOTES: Received patient from DONIS Lock. Will continue plan of care.
--- NOTE | 2018-12-03 23:43 | Cardiology Progress Note ---
Assessment/Plan Assessment/Plan 1. Septic shock, off pressors, most likely due to bilateral pneumonia as well as associated effusion. Normal LV systolic function with grade I LVDD. 2. Slight elevation of troponin I level could be secondary to sepsis although demand ischemia situation cannot be ruled out. 3. Prerenal azotemia, resolved. 4. DVT status post IVC filter. 5. History of metabolic encephalopathy. 6. History of dementia. 7. History of CVA. 8. History of pancytopenia. 9. Sinus tachycardia likely secondary to underlying sepsis. The treatment of sinus tachycardia is the treatment of underlying etiology. Subjective Subjective Sinus tachycardia at rate of 102. Objective Last 24 Hour Vital Signs Date Time Temp Pulse Resp B/P (MAP) Pulse Ox O2 Delivery O2 Flow Rate FiO2 12/03/18 22:13 102 24 95 Facial 30 12/03/18 20:00 3.0 12/03/18 20:00 Nasal Cannula 3.0 12/03/18 20:00 94 Nasal Cannula 2.0 28 12/03/18 20:00 Nasal Cannula 2.0 28 12/03/18 20:00 98.2 102 20 136/86 (103) 96 12/03/18 19:42 105 12/03/18 18:00 102 145/72 (96) 96 12/03/18 17:44 133 12/03/18 17:44 133 153/87 12/03/18 16:00 3.0 12/03/18 16:00 Nasal Cannula 3.0 12/03/18 16:00 130 12/03/18 16:00 98.4 130 20 152/114 (127) 96 12/03/18 15:43 153/87 12/03/18 13:00 98.0 128 24 153/87 (109) 96 12/03/18 12:00 116 12/03/18 12:00 98.2 115 18 150/69 (96) 99 12/03/18 12:00 Nasal Cannula 3.0 12/03/18 12:00 3.0 12/03/18 11:00 115 18 151/70 (97) 99 12/03/18 10:00 112 18 146/74 (98) 100 12/03/18 09:00 113 18 138/73 (94) 99 12/03/18 08:00 3.0 12/03/18 08:00 110 12/03/18 08:00 Nasal Cannula 3.0 12/03/18 08:00 98.8 108 17 130/70 (90) 99 12/03/18 07:00 109 18 150/80 (103) 99 12/03/18 06:40 98 Venturi Mask 10.0 45 12/03/18 06:40 Venturi Mask 10.0 40 12/03/18 06:00 3.0 12/03/18 06:00 109 19 145/65 (91) 97 12/03/18 05:41 150/65 12/03/18 05:08 112 19 97 3.0 32 12/03/18 05:00 110 14 150/65 (93) 98 12/03/18 04:00 98.3 102 15 137/71 (93) 100 12/03/18 04:00 Venturi Mask 10.0 12/03/18 04:00 102 12/03/18 04:00 30 12/03/18 03:13 104 18 98 Facial 30 12/03/18 03:00 98 14 138/64 (88) 100 12/03/18 02:00 100 15 133/67 (89) 100 12/03/18 01:04 97 15 100 Facial 30 12/03/18 01:00 99 14 135/65 (88) 100 12/03/18 00:00 Venturi Mask 10.0 12/03/18 00:00 105 12/03/18 00:00 98.6 105 14 129/70 (89) 100 12/03/18 00:00 30 Intake and Output 12/02/18 12/03/18 19:00 07:00 Intake Total 2555.0 ml 2150.0 ml Output Total 750 ml 850 ml Balance 1805.0 ml 1300.0 ml Free Water 20 ml 60 ml IV Total 2350.0 ml 1585.0 ml Tube Feeding 185 ml 505 ml Output Urine Total 750 ml 850 ml # Voids 325 2D Echo: EF55%, Large left pleural eff., Grade I LVDD, Mild AR/Mod MR/NV,RVSP 37mmHg Laboratory Tests Test 12/03/18 05:00 White Blood Count 3.9 K/UL (4.8-10.8) L Red Blood Count 2.25 M/UL (4.20-5.40) L Hemoglobin 7.1 G/DL (12.0-16.0) L Hematocrit 22.4 % (37.0-47.0) L Mean Corpuscular Volume 100 FL (80-99) H Mean Corpuscular Hemoglobin 31.6 PG (27.0-31.0) H Mean Corpuscular Hemoglobin Concent 31.7 G/DL (32.0-36.0) L Red Cell Distribution Width 14.9 % (11.6-14.8) H Platelet Count 47 K/UL (150-450) L Mean Platelet Volume 12.0 FL (6.5-10.1) H Neutrophils (%) (Auto) % (45.0-75.0) Lymphocytes (%) (Auto) % (20.0-45.0) Monocytes (%) (Auto) % (1.0-10.0) Eosinophils (%) (Auto) % (0.0-3.0) Basophils (%) (Auto) % (0.0-2.0) Differential Total Cells Counted 100 Neutrophils % (Manual) 84 % (45-75) H Lymphocytes % (Manual) 8 % (20-45) L Monocytes % (Manual) 5 % (1-10) Eosinophils % (Manual) 2 % (0-3) Basophils % (Manual) 0 % (0-2) Band Neutrophils 1 % (0-8) Platelet Estimate Decreased L Platelet Morphology Giant Platelets Rare Hypochromasia 1+ Anisocytosis 1+ Macrocytosis 1+ Sodium Level 149 MMOL/L (136-145) H Potassium Level 3.4 MMOL/L (3.5-5.1) L Chloride Level 120 MMOL/L (98-107) H Carbon Dioxide Level 23 MMOL/L (21-32) Anion Gap 6 mmol/L (5-15) Blood Urea Nitrogen 16 mg/dL (7-18) Creatinine 0.7 MG/DL (0.55-1.30) Estimat Glomerular Filtration Rate mL/min (>60) Glucose Level 201 MG/DL (74-106) H Uric Acid 2.4 MG/DL (2.6-7.2) L Calcium Level 7.9 MG/DL (8.5-10.1) L Phosphorus Level 2.3 MG/DL (2.5-4.9) L Magnesium Level 2.3 MG/DL (1.8-2.4) Total Bilirubin 0.3 MG/DL (0.2-1.0) Aspartate Amino Transf (AST/SGOT) 29 U/L (15-37) Alanine Aminotransferase (ALT/SGPT) 25 U/L (12-78) Alkaline Phosphatase 72 U/L (46-116) C-Reactive Protein, Quantitative 12.5 mg/dL (0.00-0.90) H Pro-B-Type Natriuretic Peptide 2821 pg/mL (0-125) H Total Protein 5.3 G/DL (6.4-8.2) L Albumin 1.4 G/DL (3.4-5.0) L Globulin 3.9 g/dL Albumin/Globulin Ratio 0.4 (1.0-2.7) L Microbiology Date/Time Source Procedure Growth Status 12/01/18 00:20 Blood Blood Culture - Preliminary Gram Negative Rosalino Resulted 12/01/18 00:05 Blood Blood Culture - Preliminary Gram Negative Rosalino Resulted 12/01/18 00:31 Nasal Nares Influenza Types A,B Antigen (KYLE) - Final Complete 12/01/18 00:20 Nose MRSA Culture - Final Staphylococcus Aureus - Mrsa Complete 12/01/18 00:47 Urine,Clean Catch Urine Culture - Preliminary Escherichia Coli Resulted 12/01/18 00:47 Sacral Wound Gram Stain - Final Resulted 12/01/18 00:47 Wound Culture - Preliminary Proteus Mirabilis Gram Negative Bacillus 2 Resulted 12/01/18 00:20 Rectum - Final NO CARBAPENEM-RESISTANT ENTEROBACTERI... Complete 12/01/18 00:20 Rectum VRE Culture - Final Enterococcus Faecalis - Vre Complete Objective HEENT: Normocephalic, atraumatic, PERRLA, EOMI. On rebreathing mask. NECK: JVP <5cm, No carotid bruit. HEART: Normal S1S2, no murmurs, gallops or rubs, Tachycardic. LUNGS: Decrease BS in the left base. ABDOMEN: Soft and nontender, non-distended, no HSM, + BS. EXTREMITIES: No edema, clubbing or cyanosis. Deepak Aldana MD Dec 03, 2018 23:43
[2018-12-04] VITALS: BP 142/83
[2018-12-04] MEDS: D5 1/2NS w/KCl 20mEq 1,000 ML IV SCH ×2 (01:34→15:41)
[2018-12-04 04:00] VITALS: BP 145/75
[2018-12-04] MEDS ORDERED: Vancomycin 750 MG in NS 275 ML IVPB SCH (05:00)
[2018-12-04] MEDS: Piperacillin/Tazobactam 3.375 GM in D5W 110 ML IVPB SCH ×3 (05:17→22:25)
[2018-12-04] MEDS: NovoLOG Insulin Flexpen SUBQ SCH ×4 (05:19→23:32)
--- NOTE | 2018-12-04 07:10 | NUR ---
HAND-OFF: Report given to DONIS Morel.
--- NOTE | 2018-12-04 07:11 | NUR ---
NURSE NOTES: Received patient from DONIS Samuels. Patient VS stable at this time with no sign of acute distress. patient showing sinus tachy on the monitor at 209 at this time. Will continue to monitor. Patient sleeping at this time. Patient on 3L NC at this time with stable oxygen saturation of 96-97% at this time. Patient has a G tube that is patent and asymptomatic at this time. Patient has Vital AF 1.2 running at 60mL/hr at this time. Patient on BiPAP over night and feeding was off from 10pm to 0600. Patient blood sugar stable this morning. Patient has a vera for urine retention at this time. Patient has a sacral stage 2 at this time. Patient has a right femoral TLC that is patent and asymptomatic at this time. Patient runnign D5 1/2 NS with 20mEq KCL at 75mL/hr at this time. Patient bed in low position with bed alarm on and call light in reach at this time. Patient has no labs ordered for this morning. Will follow up.
--- NOTE | 2018-12-04 07:39 | NUR ---
NURSE NOTES: Left message for Dr Gayle asking if he wanted to order labs for this patient this morning.
--- NOTE | 2018-12-04 07:41 | NUR ---
NURSE NOTES: Dr Gayle called back and ordered CBC and CMP.
[2018-12-04 08:00] VITALS: BP 141/78
[2018-12-04] MEDS ORDERED: Vancomycin 1.25gm Premix 275 ML IVPB SCH (08:00)
[2018-12-04] MEDS: Metoprolol 25mg tab ORAL SCH ×2 (08:49→20:44)
[2018-12-04 09:33] LABS: HEMATOCRIT 33.8 % (37.0-47.0); HEMOGLOBIN 10.6 G/DL (12.0-16.0); MEAN CORPUSCULAR VOLUME 98 FL (80-99); PLATELET COUNT 41 K/UL (150-450); RED BLOOD COUNT 3.45 M/UL (4.20-5.40); RED CELL DISTRIBUTION WIDTH 14.4 % (11.6-14.8); WHITE BLOOD COUNT 3.4 K/UL (4.8-10.8)
[2018-12-04] MEDS ORDERED: D5NS 1000ml IV ONE (09:44)
[2018-12-04] MEDS ORDERED: Tubing IV Secondary IV ONE (09:44)
[2018-12-04 09:50] LABS: ALANINE AMINOTRANSFERASE 23 U/L (12-78); ALBUMIN 1.4 G/DL (3.4-5.0); ALBUMIN/GLOBULIN RATIO 0.4 (1.0-2.7); ALKALINE PHOSPHATASE 73 U/L (46-116); ANION GAP 6 mmol/L (5-15); ASPARTATE AMINO TRANSFERASE 24 U/L (15-37); BILIRUBIN,TOTAL 0.5 MG/DL (0.2-1.0); BLOOD UREA NITROGEN 14 mg/dL (7-18); CALCIUM 7.9 MG/DL (8.5-10.1); CARBON DIOXIDE 25 MMOL/L (21-32); CHLORIDE 119 MMOL/L (98-107); CREATININE 0.8 MG/DL (0.55-1.30); POTASSIUM 3.4 MMOL/L (3.5-5.1); SODIUM 149 MMOL/L (136-145)
--- NOTE | 2018-12-04 10:29 | Infectious Diseases Prog Note ---
Assessment/Plan Assessment/Plan A: 1. Proteus Sepsis 2. urinary tract infection with E.coli 3. Atelectasis on chest x-ray, may have underlying pneumonia. 4. Diabetes mellitus type 2. 5. Dementia. 6. Pancytopenia. 7. Pressure ulcer 8. MRSA & VRE colonization RECOMMENDATION: 1. Discontinue vancomycin, Continue Zosyn. 2. will follow up the cultures. Subjective ROS Limited/Unobtainable: Yes Constitutional: Reports: other - doing better transferred out of ICU Allergies: Coded Allergies: No Known Allergies (Unverified , 07/26/18) Objective Vital Signs Last 24 Hour Vital Signs Date Time Temp Pulse Resp B/P (MAP) Pulse Ox O2 Delivery O2 Flow Rate FiO2 12/04/18 08:49 112 141/78 12/04/18 08:10 Nasal Cannula 2.0 28 12/04/18 08:10 96 Nasal Cannula 2.0 28 12/04/18 08:00 3.0 12/04/18 08:00 Nasal Cannula 3.0 12/04/18 08:00 105 12/04/18 05:56 105 97 28 12/04/18 04:00 3.0 12/04/18 04:00 99.0 102 19 145/75 (98) 98 12/04/18 04:00 Nasal Cannula 3.0 12/04/18 03:33 102 12/04/18 03:30 102 18 98 Facial 30 12/04/18 01:38 100 21 96 Facial 30 12/04/18 00:00 98.9 103 25 142/83 (102) 98 12/04/18 00:00 Nasal Cannula 3.0 12/03/18 23:41 108 12/03/18 22:13 102 24 95 Facial 30 12/03/18 20:00 3.0 12/03/18 20:00 Nasal Cannula 3.0 12/03/18 20:00 94 Nasal Cannula 2.0 28 12/03/18 20:00 Nasal Cannula 2.0 28 12/03/18 20:00 98.2 102 20 136/86 (103) 96 12/03/18 19:42 105 12/03/18 18:00 102 145/72 (96) 96 12/03/18 17:44 133 12/03/18 17:44 133 153/87 2/23/19 16:00 3.0 12/03/18 16:00 Nasal Cannula 3.0 12/03/18 16:00 130 12/03/18 16:00 98.4 130 20 152/114 (127) 96 12/03/18 15:43 153/87 12/03/18 13:00 98.0 128 24 153/87 (109) 96 12/03/18 12:00 116 12/03/18 12:00 98.2 115 18 150/69 (96) 99 12/03/18 12:00 Nasal Cannula 3.0 12/03/18 12:00 3.0 12/03/18 11:00 115 18 151/70 (97) 99 Height (Feet): 5 Height (Inches): 3.00 Weight (Pounds): 120 HEENT: mucous membranes moist Respiratory/Chest: lungs clear Cardiovascular: tachycardia, other - R femoral line Abdomen: soft, non tender, other - GT feeding Extremities: other - edema more in legs Neurologic/Psychiatric: aphasia Laboratory Tests Test 12/04/18 04:15 12/04/18 09:00 Vancomycin Level Trough 8.7 ug/mL (5.0-12.0) White Blood Count 3.4 K/UL (4.8-10.8) L Red Blood Count 3.45 M/UL (4.20-5.40) L Hemoglobin 10.6 G/DL (12.0-16.0) #L Hematocrit 33.8 % (37.0-47.0) #L Mean Corpuscular Volume 98 FL (80-99) Mean Corpuscular Hemoglobin 30.6 PG (27.0-31.0) Mean Corpuscular Hemoglobin Concent 31.3 G/DL (32.0-36.0) L Red Cell Distribution Width 14.4 % (11.6-14.8) Platelet Count 41 K/UL (150-450) L Mean Platelet Volume 9.9 FL (6.5-10.1) Neutrophils (%) (Auto) % (45.0-75.0) Lymphocytes (%) (Auto) % (20.0-45.0) Monocytes (%) (Auto) % (1.0-10.0) Eosinophils (%) (Auto) % (0.0-3.0) Basophils (%) (Auto) % (0.0-2.0) Neutrophils % (Manual) Pending Lymphocytes % (Manual) Pending Platelet Estimate Pending Platelet Morphology Pending Sodium Level 149 MMOL/L (136-145) H Potassium Level 3.4 MMOL/L (3.5-5.1) L Chloride Level 119 MMOL/L (98-107) H Carbon Dioxide Level 25 MMOL/L (21-32) Anion Gap 6 mmol/L (5-15) Blood Urea Nitrogen 14 mg/dL (7-18) Creatinine 0.8 MG/DL (0.55-1.30) Estimat Glomerular Filtration Rate mL/min (>60) Glucose Level 225 MG/DL (74-106) H Calcium Level 7.9 MG/DL (8.5-10.1) L Total Bilirubin 0.5 MG/DL (0.2-1.0) Aspartate Amino Transf (AST/SGOT) 24 U/L (15-37) Alanine Aminotransferase (ALT/SGPT) 23 U/L (12-78) Alkaline Phosphatase 73 U/L (46-116) Total Protein 5.3 G/DL (6.4-8.2) L Albumin 1.4 G/DL (3.4-5.0) L Globulin 3.9 g/dL Albumin/Globulin Ratio 0.4 (1.0-2.7) L Current Medications Medications (Trade) Dose Ordered Sig/Laure Route PRN Reason Start Time Stop Time Status Last Admin Dose Admin Acetaminophen (Tylenol) 650 mg Q4HR PRN NG Mild Pain/Temp > 100.5 12/03/18 17:00 01/01/19 04:14 Albuterol/ Ipratropium (Albuterol/ Ipratropium) 3 ml Q4H PRN HHN Shortness of Breath 12/03/18 14:15 12/06/18 10:14 Chlorhexidine Gluconate (Georgina-Hex 2%) 1 applic DAILY@2000 TOPIC 12/03/18 20:00 12/31/18 19:59 12/03/18 20:35 Dextrose (Dextrose 50%) 25 ml Q30M PRN IV Hypoglycemia 12/03/18 13:30 12/31/18 12:29 Dextrose (Dextrose 50%) 50 ml Q30M PRN IV Hypoglycemia 12/03/18 13:30 12/31/18 12:29 Dextrose/ Electrolytes 1,000 ml @ 75 mls/hr [id number] IV 12/03/18 13:15 01/02/19 11:59 12/04/18 01:34 Insulin Aspart (NovoLOG) Q6HR SUBQ 12/03/18 18:00 12/31/18 17:59 12/04/18 05:19 Metoprolol Tartrate (Lopressor) 25 mg Q12HR ORAL 12/03/18 17:00 01/02/19 16:59 12/04/18 08:49 Nitroglycerin (Ntg) 1 patch Q24H TDERMAL 12/03/18 16:00 01/01/19 15:59 12/03/18 15:43 Ondansetron HCl (Zofran) 4 mg Q6H PRN IVP Nausea & Vomiting 12/03/18 16:15 12/31/18 10:14 Piperacillin Sod/ Tazobactam Sod 3.375 gm/Dextrose 110 ml @ 27.5 mls/hr EVERY 8 HOURS IVPB 12/03/18 14:00 12/06/18 13:59 12/04/18 05:17 Vancomycin HCl (Vanco rx to dose) 1 ea DAILY PRN MISC Per rx protocol 12/04/18 09:00 12/31/18 10:14 Vancomycin HCl/ Dextrose 275 ml @ 183.333 mls/hr Q24H IVPB 12/04/18 08:00 12/07/18 07:59 12/04/18 08:49 Shimon Card MD Dec 04, 2018 10:29
[2018-12-04 11:14] LABS: HEMATOCRIT 23.7 % (37.0-47.0); HEMOGLOBIN 7.6 G/DL (12.0-16.0); MEAN CORPUSCULAR VOLUME 99 FL (80-99); PLATELET COUNT 45 K/UL (150-450); RED CELL DISTRIBUTION WIDTH 14.4 % (11.6-14.8); WHITE BLOOD COUNT 4.5 K/UL (4.8-10.8)
--- NOTE | 2018-12-04 11:42 | Pulmonology Progress Note ---
Assessment/Plan Problems: (1) UTI (urinary tract infection) (2) Pneumonia (3) Sepsis (4) DVT (deep venous thrombosis) (5) Dementia with behavioral disturbance (6) Malnutrition (7) Anemia (8) Thrombocytopenia (9) Feeding by G-tube (10) Elevated troponin I level (11) S/P IVC filter Assessment/Plan Optimize pulmonary hygiene/mobilize as tolerated Titrate down FiO2 to keep SaO2 > 90% RTC and PRN HHN's Abx per ID, F/U Cx's TF's as tolerated Monitor volumes and renal function Monitor CBC, transfuse as needed F/U instructional design consultant recs DVT Px: IVCF FC, continue to discuss GOC Subjective Allergies: Coded Allergies: No Known Allergies (Unverified , 07/26/18) Subjective AFVSS x ST TTF BEREKET O2 needs stable leta TF's no sig cough or secretions no FC Objective Last 24 Hour Vital Signs Date Time Temp Pulse Resp B/P (MAP) Pulse Ox O2 Delivery O2 Flow Rate FiO2 12/04/18 08:49 112 141/78 12/04/18 08:10 Nasal Cannula 2.0 28 12/04/18 08:10 96 Nasal Cannula 2.0 28 12/04/18 08:00 98.8 110 22 141/78 (99) 98 12/04/18 08:00 3.0 12/04/18 08:00 Nasal Cannula 3.0 12/04/18 08:00 105 12/04/18 05:56 105 97 28 12/04/18 04:00 3.0 12/04/18 04:00 99.0 102 19 145/75 (98) 98 12/04/18 04:00 Nasal Cannula 3.0 12/04/18 03:33 102 12/04/18 03:30 102 18 98 Facial 30 12/04/18 01:38 100 21 96 Facial 30 12/04/18 00:00 98.9 103 25 142/83 (102) 98 12/04/18 00:00 Nasal Cannula 3.0 12/03/18 23:41 108 12/03/18 22:13 102 24 95 Facial 30 12/03/18 20:00 3.0 12/03/18 20:00 Nasal Cannula 3.0 12/03/18 20:00 94 Nasal Cannula 2.0 28 12/03/18 20:00 Nasal Cannula 2.0 28 12/03/18 20:00 98.2 102 20 136/86 (103) 96 12/03/18 19:42 105 12/03/18 18:00 102 145/72 (96) 96 12/03/18 17:44 133 12/03/18 17:44 133 153/87 12/03/18 16:00 3.0 12/03/18 16:00 Nasal Cannula 3.0 12/03/18 16:00 130 12/03/18 16:00 98.4 130 20 152/114 (127) 96 12/03/18 15:43 153/87 12/03/18 13:00 98.0 128 24 153/87 (109) 96 12/03/18 12:00 116 12/03/18 12:00 98.2 115 18 150/69 (96) 99 12/03/18 12:00 Nasal Cannula 3.0 12/03/18 12:00 3.0 Intake and Output 12/03/18 12/04/18 18:59 06:59 Intake Total 2012.332 ml 1386.264 ml Output Total 1310 ml 1450 ml Balance 702.332 ml -63.736 ml Free Water 150 ml 100 ml IV Total 1152.332 ml 986.264 ml Tube Feeding 710 ml 300 ml Output Urine Total 1310 ml 1450 ml # Bowel Movements 1 2 General Appearance: no acute distress, cachetic, other - non-verbal HEENT: normocephalic, atraumatic, anicteric, mucous membranes moist Respiratory/Chest: chest wall non-tender, lungs clear, normal breath sounds, no respiratory distress, no accessory muscle use Cardiovascular: normal peripheral pulses, normal rate, regular rhythm Abdomen: normal bowel sounds, soft, non tender, no organomegaly, non distended , no mass, other - GT Extremities: no cyanosis, no clubbing, no edema Laboratory Tests 12/04/18 04:15: Vancomycin Level Trough 8.7 12/04/18 09:00: White Blood Count 3.4L, Red Blood Count 3.45L, Hemoglobin 10.6#L, Hematocrit 33.8#L, Mean Corpuscular Volume 98, Mean Corpuscular Hemoglobin 30.6, Mean Corpuscular Hemoglobin Concent 31.3L, Red Cell Distribution Width 14.4, Platelet Count 41L, Mean Platelet Volume 9.9, Neutrophils (%) (Auto) , Lymphocytes (%) (Auto) , Monocytes (%) (Auto) , Eosinophils (%) (Auto) , Basophils (%) (Auto) , Differential Total Cells Counted 100, Neutrophils % ( Manual) 84H, Lymphocytes % (Manual) 10L, Monocytes % (Manual) 5, Eosinophils % ( Manual) 1, Basophils % (Manual) 0, Band Neutrophils 0, Platelet Estimate DecreasedL, Platelet Morphology Normal, Hypochromasia 1+, Anisocytosis , Sodium Level 149H, Potassium Level 3.4L, Chloride Level 119H, Carbon Dioxide Level 25, Anion Gap 6, Blood Urea Nitrogen 14, Creatinine 0.8, Estimat Glomerular Filtration Rate , Glucose Level 225H, Calcium Level 7.9L, Total Bilirubin 0.5, Aspartate Amino Transf (AST/SGOT) 24, Alanine Aminotransferase (ALT/SGPT) 23, Alkaline Phosphatase 73, Total Protein 5.3L, Albumin 1.4L, Globulin 3.9, Albumin /Globulin Ratio 0.4L 12/04/18 10:45: White Blood Count 4.5L, Red Blood Count 2.40L, Hemoglobin 7.6L, Hematocrit 23.7L , Mean Corpuscular Volume 99, Mean Corpuscular Hemoglobin 31.4H, Mean Corpuscular Hemoglobin Concent 31.8L, Red Cell Distribution Width 14.4, Platelet Count 45L, Mean Platelet Volume 9.2, Neutrophils (%) (Auto) , Lymphocytes (%) (Auto) , Monocytes (%) (Auto) , Eosinophils (%) (Auto) , Basophils (%) (Auto) , Neutrophils % (Manual) [Pending], Lymphocytes % (Manual) [Pending], Platelet Estimate [Pending], Platelet Morphology [Pending] Current Medications Medications (Trade) Dose Ordered Sig/Laure Route PRN Reason Start Time Stop Time Status Last Admin Dose Admin Acetaminophen (Tylenol) 650 mg Q4HR PRN NG Mild Pain/Temp > 100.5 12/03/18 17:00 01/01/19 04:14 Albuterol/ Ipratropium (Albuterol/ Ipratropium) 3 ml Q4H PRN HHN Shortness of Breath 12/03/18 14:15 12/06/18 10:14 Chlorhexidine Gluconate (Georgina-Hex 2%) 1 applic DAILY@2000 TOPIC 12/03/18 20:00 12/31/18 19:59 12/03/18 20:35 Dextrose (Dextrose 50%) 25 ml Q30M PRN IV Hypoglycemia 12/03/18 13:30 12/31/18 12:29 Dextrose (Dextrose 50%) 50 ml Q30M PRN IV Hypoglycemia 12/03/18 13:30 12/31/18 12:29 Dextrose/ Electrolytes 1,000 ml @ 75 mls/hr [id number] IV 12/03/18 13:15 01/02/19 11:59 12/04/18 01:34 Insulin Aspart (NovoLOG) Q6HR SUBQ 12/03/18 18:00 12/31/18 17:59 12/04/18 11:35 Metoprolol Tartrate (Lopressor) 25 mg Q12HR ORAL 12/03/18 17:00 01/02/19 16:59 12/04/18 08:49 Nitroglycerin (Ntg) 1 patch Q24H TDERMAL 12/03/18 16:00 01/01/19 15:59 12/03/18 15:43 Ondansetron HCl (Zofran) 4 mg Q6H PRN IVP Nausea & Vomiting 12/03/18 16:15 12/31/18 10:14 Piperacillin Sod/ Tazobactam Sod 3.375 gm/Dextrose 110 ml @ 27.5 mls/hr EVERY 8 HOURS IVPB 12/03/18 14:00 12/06/18 13:59 12/04/18 05:17 Foreign Parekh MD Dec 04, 2018 11:42
[2018-12-04 12:00] VITALS: BP 149/74
[2018-12-04] MEDS: Albuterol/Ipratropium 3ml neb HHN SCH ×2 (13:00→19:15)
--- NOTE | 2018-12-04 13:51 | NUR ---
CASE MANAGEMENT: REVIEW SI: SEPSIS . DEHYDRATION . DVT S/P IVC FILTER T 99.0 HR 110 RR 22 BP 145/75 SAT 98% NC/3L WBC 4.5 H/H 7.6/32.7 NA 149 K 3.4 GLUCOSE 225 IS: ZOSYN IV Q8HR D5 NS IVF @100ML/HR ALBUTEROL HHN Q6HR NOVOLOG SQ Q6HR STEP DOWN UNIT STATUS DCP: PATIENT IS FROM [facility]
--- NOTE | 2018-12-04 15:16 | General Progress Note ---
Assessment/Plan Assessment/Plan Assessment/Plan Problem List: (1) Feeding by G-tube, dysphagia ICD Codes: Z93.1 - Gastrostomy status SNOMED: 552003960, 598220607, 934121004 (2) S/P IVC filter ICD Codes: Z95.828 - Presence of other vascular implants and grafts SNOMED: 43781298, 356222519, 234796330 (3) Sepsis ICD Codes: A41.9 - Sepsis, unspecified organism SNOMED: 87312951 Qualifiers: Qualified Codes: A41.9 - Sepsis, unspecified organism (4) Anemia ICD Codes: D64.9 - Anemia, unspecified SNOMED: 297770696 (5) Thrombocytopenia ICD Codes: D69.6 - Thrombocytopenia, unspecified SNOMED: 361050590 (6) Dementia with behavioral disturbance ICD Codes: F03.91 - Unspecified dementia with behavioral disturbance Assessment/Plan GTF while off of BIPAP fu labs abx per ID supportive care fu Subjective Allergies: Coded Allergies: No Known Allergies (Unverified , 07/26/18) Subjective above noted Out of ICU d/w RN tolerating TF off BIPAP Objective Last 24 Hour Vital Signs Date Time Temp Pulse Resp B/P (MAP) Pulse Ox O2 Delivery O2 Flow Rate FiO2 12/04/18 14:04 99 18 100 Nasal Cannula 2.0 28 12/04/18 14:03 28 12/04/18 14:03 98 18 98 Nasal Cannula 2.0 28 12/04/18 12:00 3.0 12/04/18 12:00 95 12/04/18 12:00 Nasal Cannula 3.0 12/04/18 12:00 99.0 83 22 149/74 (99) 99 12/04/18 08:49 112 141/78 12/04/18 08:10 Nasal Cannula 2.0 28 12/04/18 08:10 96 Nasal Cannula 2.0 28 12/04/18 08:00 98.8 110 22 141/78 (99) 98 12/04/18 08:00 3.0 12/04/18 08:00 Nasal Cannula 3.0 12/04/18 08:00 105 12/04/18 05:56 105 97 28 12/04/18 04:00 3.0 12/04/18 04:00 99.0 102 19 145/75 (98) 98 12/04/18 04:00 Nasal Cannula 3.0 12/04/18 03:33 102 12/04/18 03:30 102 18 98 Facial 30 12/04/18 01:38 100 21 96 Facial 30 12/04/18 00:00 98.9 103 25 142/83 (102) 98 12/04/18 00:00 Nasal Cannula 3.0 12/03/18 23:41 108 12/03/18 22:13 102 24 95 Facial 30 12/03/18 20:00 3.0 12/03/18 20:00 Nasal Cannula 3.0 12/03/18 20:00 94 Nasal Cannula 2.0 28 12/03/18 20:00 Nasal Cannula 2.0 28 12/03/18 20:00 98.2 102 20 136/86 (103) 96 12/03/18 19:42 105 12/03/18 18:00 102 145/72 (96) 96 12/03/18 17:44 133 12/03/18 17:44 133 153/87 12/03/18 16:00 3.0 12/03/18 16:00 Nasal Cannula 3.0 12/03/18 16:00 130 12/03/18 16:00 98.4 130 20 152/114 (127) 96 12/03/18 15:43 153/87 Intake and Output 12/03/18 12/04/18 18:59 06:59 Intake Total 2012.332 ml 1386.264 ml Output Total 1310 ml 1450 ml Balance 702.332 ml -63.736 ml Free Water 150 ml 100 ml IV Total 1152.332 ml 986.264 ml Tube Feeding 710 ml 300 ml Output Urine Total 1310 ml 1450 ml # Bowel Movements 1 2 Laboratory Tests 12/04/18 04:15: Vancomycin Level Trough 8.7 12/04/18 09:00: White Blood Count 3.4L, Red Blood Count 3.45L, Hemoglobin 10.6#L, Hematocrit 33.8#L, Mean Corpuscular Volume 98, Mean Corpuscular Hemoglobin 30.6, Mean Corpuscular Hemoglobin Concent 31.3L, Red Cell Distribution Width 14.4, Platelet Count 41L, Mean Platelet Volume 9.9, Neutrophils (%) (Auto) , Lymphocytes (%) (Auto) , Monocytes (%) (Auto) , Eosinophils (%) (Auto) , Basophils (%) (Auto) , Differential Total Cells Counted 100, Neutrophils % ( Manual) 84H, Lymphocytes % (Manual) 10L, Monocytes % (Manual) 5, Eosinophils % ( Manual) 1, Basophils % (Manual) 0, Band Neutrophils 0, Platelet Estimate DecreasedL, Platelet Morphology Normal, Hypochromasia 1+, Anisocytosis , Sodium Level 149H, Potassium Level 3.4L, Chloride Level 119H, Carbon Dioxide Level 25, Anion Gap 6, Blood Urea Nitrogen 14, Creatinine 0.8, Estimat Glomerular Filtration Rate , Glucose Level 225H, Calcium Level 7.9L, Total Bilirubin 0.5, Aspartate Amino Transf (AST/SGOT) 24, Alanine Aminotransferase (ALT/SGPT) 23, Alkaline Phosphatase 73, Total Protein 5.3L, Albumin 1.4L, Globulin 3.9, Albumin /Globulin Ratio 0.4L 12/04/18 10:45: White Blood Count 4.5L, Red Blood Count 2.40L, Hemoglobin 7.6L, Hematocrit 23.7L , Mean Corpuscular Volume 99, Mean Corpuscular Hemoglobin 31.4H, Mean Corpuscular Hemoglobin Concent 31.8L, Red Cell Distribution Width 14.4, Platelet Count 45L, Mean Platelet Volume 9.2, Neutrophils (%) (Auto) , Lymphocytes (%) (Auto) , Monocytes (%) (Auto) , Eosinophils (%) (Auto) , Basophils (%) (Auto) , Differential Total Cells Counted 100, Neutrophils % ( Manual) 84H, Lymphocytes % (Manual) 10L, Monocytes % (Manual) 4, Eosinophils % ( Manual) 2, Basophils % (Manual) 0, Band Neutrophils 0, Platelet Estimate DecreasedL, Platelet Morphology Normal, Hypochromasia 1+ Height (Feet): 5 Height (Inches): 3.00 Weight (Pounds): 120 Objective Thin woman off BIPAP NCAT ETT Chest CTA RR abd Soft ND NT no edema Ginna Landeros MD Dec 04, 2018 15:16
[2018-12-04 16:00] VITALS: BP 141/73
[2018-12-04] MEDS: Nitroglycerin Patch 0.4mg TDERMAL SCH (16:09)
--- NOTE | 2018-12-04 18:00 | NUR ---
NURSE NOTES: Dr Bergman came to see the patient. He is aware or the Potassium 3.4 at this time. No coverage ordered at this time.
--- NOTE | 2018-12-04 18:07 | Nephrology Progress Note ---
Assessment/Plan Problem List: (1) Sepsis Assessment: low bp (2) Oliguria Assessment: due low bp (3) Anemia (4) Hypokalemia (5) Diabetic nephropathy (6) Elevated troponin I level Assessment Oliguria due to low BP Sepsis and low BP Elevated troponin UTI (urinary tract infection) Pneumonia Anemia DM+ Proteinuria: Nephropathy s/p IVC Filter Acute encephalopathy HypoAlbuminemia Plan DC IV fluids K Phos , KCl , MgSo4 IV ordered Fluid challenge antibiotics avoid nephrotoxics anemia mac per orders Subjective ROS Limited/Unobtainable: No Constitutional: Reports: malaise Objective Objective Last 24 Hour Vital Signs Date Time Temp Pulse Resp B/P (MAP) Pulse Ox O2 Delivery O2 Flow Rate FiO2 12/04/18 16:09 141/73 12/04/18 16:00 99.0 99 20 141/73 (95) 97 12/04/18 16:00 95 12/04/18 16:00 3.0 12/04/18 16:00 Nasal Cannula 3.0 12/04/18 14:04 99 18 100 Nasal Cannula 2.0 28 12/04/18 14:03 28 12/04/18 14:03 98 18 98 Nasal Cannula 2.0 28 12/04/18 12:00 3.0 12/04/18 12:00 95 12/04/18 12:00 Nasal Cannula 3.0 12/04/18 12:00 99.0 83 22 149/74 (99) 99 12/04/18 08:49 112 141/78 12/04/18 08:10 Nasal Cannula 2.0 28 12/04/18 08:10 96 Nasal Cannula 2.0 28 12/04/18 08:00 98.8 110 22 141/78 (99) 98 12/04/18 08:00 3.0 12/04/18 08:00 Nasal Cannula 3.0 12/04/18 08:00 105 12/04/18 05:56 105 97 28 12/04/18 04:00 3.0 12/04/18 04:00 99.0 102 19 145/75 (98) 98 12/04/18 04:00 Nasal Cannula 3.0 12/04/18 03:33 102 12/04/18 03:30 102 18 98 Facial 30 12/04/18 01:38 100 21 96 Facial 30 2/24/19 00:00 98.9 103 25 142/83 (102) 98 12/04/18 00:00 Nasal Cannula 3.0 12/03/18 23:41 108 12/03/18 22:13 102 24 95 Facial 30 12/03/18 20:00 3.0 12/03/18 20:00 Nasal Cannula 3.0 12/03/18 20:00 94 Nasal Cannula 2.0 28 12/03/18 20:00 Nasal Cannula 2.0 28 12/03/18 20:00 98.2 102 20 136/86 (103) 96 12/03/18 19:42 105 Intake and Output 12/03/18 12/04/18 19:00 07:00 Intake Total 2071.776 ml 1339.32 ml Output Total 1230 ml 1450 ml Balance 841.776 ml -110.68 ml Free Water 150 ml 100 ml IV Total 1201.776 ml 939.32 ml Tube Feeding 720 ml 300 ml Output Urine Total 1230 ml 1450 ml # Bowel Movements 1 2 Laboratory Tests 12/04/18 04:15: Vancomycin Level Trough 8.7 12/04/18 09:00: White Blood Count 3.4L, Red Blood Count 3.45L, Hemoglobin 10.6#L, Hematocrit 33.8#L, Mean Corpuscular Volume 98, Mean Corpuscular Hemoglobin 30.6, Mean Corpuscular Hemoglobin Concent 31.3L, Red Cell Distribution Width 14.4, Platelet Count 41L, Mean Platelet Volume 9.9, Neutrophils (%) (Auto) , Lymphocytes (%) (Auto) , Monocytes (%) (Auto) , Eosinophils (%) (Auto) , Basophils (%) (Auto) , Differential Total Cells Counted 100, Neutrophils % ( Manual) 84H, Lymphocytes % (Manual) 10L, Monocytes % (Manual) 5, Eosinophils % ( Manual) 1, Basophils % (Manual) 0, Band Neutrophils 0, Platelet Estimate DecreasedL, Platelet Morphology Normal, Hypochromasia 1+, Anisocytosis , Sodium Level 149H, Potassium Level 3.4L, Chloride Level 119H, Carbon Dioxide Level 25, Anion Gap 6, Blood Urea Nitrogen 14, Creatinine 0.8, Estimat Glomerular Filtration Rate , Glucose Level 225H, Calcium Level 7.9L, Total Bilirubin 0.5, Aspartate Amino Transf (AST/SGOT) 24, Alanine Aminotransferase (ALT/SGPT) 23, Alkaline Phosphatase 73, Total Protein 5.3L, Albumin 1.4L, Globulin 3.9, Albumin /Globulin Ratio 0.4L 12/04/18 10:45: White Blood Count 4.5L, Red Blood Count 2.40L, Hemoglobin 7.6L, Hematocrit 23.7L , Mean Corpuscular Volume 99, Mean Corpuscular Hemoglobin 31.4H, Mean Corpuscular Hemoglobin Concent 31.8L, Red Cell Distribution Width 14.4, Platelet Count 45L, Mean Platelet Volume 9.2, Neutrophils (%) (Auto) , Lymphocytes (%) (Auto) , Monocytes (%) (Auto) , Eosinophils (%) (Auto) , Basophils (%) (Auto) , Differential Total Cells Counted 100, Neutrophils % ( Manual) 84H, Lymphocytes % (Manual) 10L, Monocytes % (Manual) 4, Eosinophils % ( Manual) 2, Basophils % (Manual) 0, Band Neutrophils 0, Platelet Estimate DecreasedL, Platelet Morphology Normal, Hypochromasia 1+ Height (Feet): 5 Height (Inches): 3.00 Weight (Pounds): 120 General Appearance: no apparent distress Neck: limited range of motion Cardiovascular: tachycardia Respiratory/Chest: decreased breath sounds Abdomen: other - GT feeding Parvez Bergman MD Dec 04, 2018 18:07
--- NOTE | 2018-12-04 19:15 | NUR ---
HAND-OFF: Report given to DONIS Perez. Patient VS stable at this time with no sign of acute distress. patient feeding to be turned off while on BiPAP from 10pm to 6am. Patient no longer has D5 1/2 NS IV fluid at this time. Endorsed to follow up. Patient last blood sugar was 268.
--- NOTE | 2018-12-04 19:30 | NUR ---
NURSE NOTES: Recvd.quiet in bed open eyes to stimulation,aphasic,(L)Hemiplegia,Resp.unlabored on 2L/NC inhalation.P.Ox-100%.See V/S.Scope SR-ST.Pos.chg.Made comfortable.Gt-Feeding in progress.F/cath.patent.see I/O.
[2018-12-04] MEDS: Dyna-Hex 2% Top Sol 2oz TOPIC SCH (19:55)
[2018-12-04 20:00] VITALS: BP 148/82
--- NOTE | 2018-12-04 22:00 | NUR ---
NURSE NOTES: HS care rendered.Pos.chg.Backrub with Lotiion.Due field administrative assistant.Placed back on BIPAP as ordered.See settings.Sat.99-100%.GT Feeding on hold as ordered.
--- NOTE | 2018-12-04 22:35 | General Progress Note ---
Assessment/Plan Assessment/Plan Assessment/Recs: # DVT of the left leg s/p IVC filter in 07/2018-- superficial femoral vein which is a deep vein, new onset, has not had these symptoms before. Lower hgb and plts --> given decreased h/h, low thrombocytopenia, do not recommend anticoag --> appreciate Dr. Parekh and Mariam recs from prior admission --> smear reviewed # Pancytopenia, likely related to septicemia, appears new baseline 50-70k, several causes possible including viral, medication or intrabone marrow related. --> Cont to monitor plt count for improvement --> US abd: Mild left hydronephrosis. Possible left renal calyceal calculi. Negative for gallstones or dilated ducts Debris noted within the bladder --> Hep panel and HIV are both negative --> given extremely poor condition do not recommend a bone marrow biopsy, have discussed with family 08/01 with --> will rediscuss once sepsis resolves --> transfuse if plt <20k # Anemia of chronic disease. Multifactorial. Since admission Hgb has consistently remained between 8-9. --> Cont to monitor for stability --> Hgb goal above 7. Transfuse prn. --> IV iron completed prior admission and feritin is elevated # Dehydration. IVF has been administered --> improved # DM OOC --> A1C goal <7 --> Cont on insulin # Bacteremia/prior UTI. --> ID is following. Appreciate recs. --> Pt on IV abx. --> Cultures surveillance as per id # PEG placement 08/04. Greatly appreciate consultation! Subjective ROS Limited/Unobtainable: Yes Allergies: Coded Allergies: No Known Allergies (Unverified , 07/26/18) Subjective 12/02: seen by bedside, hgb 7.6, will transfuse as needed, plt trending down, GTF on hold, patient on BIPAP, has been tachycardic over night, abx per ID 12/04: Seen by bedside, out of ICU, tolerating TF, off BIPAP, plt trending down to 45, hgb 7.6. Objective Last 24 Hour Vital Signs Date Time Temp Pulse Resp B/P (MAP) Pulse Ox O2 Delivery O2 Flow Rate FiO2 12/04/18 20:44 107 148/82 12/04/18 20:00 Nasal Cannula 3.0 12/04/18 20:00 98.8 99 21 148/82 (104) 100 12/04/18 20:00 107 12/04/18 20:00 3.0 12/04/18 19:35 89 18 100 Nasal Cannula 2.0 28 12/04/18 19:25 28 12/04/18 19:17 Nasal Cannula 2.0 28 12/04/18 19:17 97 Nasal Cannula 2.0 28 12/04/18 19:15 104 20 97 Nasal Cannula 2.0 28 12/04/18 16:09 141/73 12/04/18 16:00 99.0 99 20 141/73 (95) 97 12/04/18 16:00 95 12/04/18 16:00 3.0 12/04/18 16:00 Nasal Cannula 3.0 12/04/18 14:04 99 18 100 Nasal Cannula 2.0 28 12/04/18 14:03 28 12/04/18 14:03 98 18 98 Nasal Cannula 2.0 28 12/04/18 12:00 3.0 12/04/18 12:00 95 12/04/18 12:00 Nasal Cannula 3.0 12/04/18 12:00 99.0 83 22 149/74 (99) 99 12/04/18 08:49 112 141/78 12/04/18 08:10 Nasal Cannula 2.0 28 12/04/18 08:10 96 Nasal Cannula 2.0 28 12/04/18 08:00 98.8 110 22 141/78 (99) 98 12/04/18 08:00 3.0 12/04/18 08:00 Nasal Cannula 3.0 12/04/18 08:00 105 12/04/18 05:56 105 97 28 12/04/18 04:00 3.0 12/04/18 04:00 99.0 102 19 145/75 (98) 98 12/04/18 04:00 Nasal Cannula 3.0 12/04/18 03:33 102 12/04/18 03:30 102 18 98 Facial 30 12/04/18 01:38 100 21 96 Facial 30 12/04/18 00:00 98.9 103 25 142/83 (102) 98 12/04/18 00:00 Nasal Cannula 3.0 12/03/18 23:41 108 Intake and Output 12/03/18 12/04/18 19:00 07:00 Intake Total 2071.776 ml 1339.32 ml Output Total 1230 ml 1450 ml Balance 841.776 ml -110.68 ml Free Water 150 ml 100 ml IV Total 1201.776 ml 939.32 ml Tube Feeding 720 ml 300 ml Output Urine Total 1230 ml 1450 ml # Bowel Movements 1 2 Laboratory Tests 12/04/18 04:15: Vancomycin Level Trough 8.7 12/04/18 09:00: White Blood Count 3.4L, Red Blood Count 3.45L, Hemoglobin 10.6#L, Hematocrit 33.8#L, Mean Corpuscular Volume 98, Mean Corpuscular Hemoglobin 30.6, Mean Corpuscular Hemoglobin Concent 31.3L, Red Cell Distribution Width 14.4, Platelet Count 41L, Mean Platelet Volume 9.9, Neutrophils (%) (Auto) , Lymphocytes (%) (Auto) , Monocytes (%) (Auto) , Eosinophils (%) (Auto) , Basophils (%) (Auto) , Differential Total Cells Counted 100, Neutrophils % ( Manual) 84H, Lymphocytes % (Manual) 10L, Monocytes % (Manual) 5, Eosinophils % ( Manual) 1, Basophils % (Manual) 0, Band Neutrophils 0, Platelet Estimate DecreasedL, Platelet Morphology Normal, Hypochromasia 1+, Anisocytosis , Sodium Level 149H, Potassium Level 3.4L, Chloride Level 119H, Carbon Dioxide Level 25, Anion Gap 6, Blood Urea Nitrogen 14, Creatinine 0.8, Estimat Glomerular Filtration Rate , Glucose Level 225H, Calcium Level 7.9L, Total Bilirubin 0.5, Aspartate Amino Transf (AST/SGOT) 24, Alanine Aminotransferase (ALT/SGPT) 23, Alkaline Phosphatase 73, C-Reactive Protein, Quantitative 5.8H, Total Protein 5.3L, Albumin 1.4L, Globulin 3.9, Albumin/Globulin Ratio 0.4L 12/04/18 10:45: White Blood Count 4.5L, Red Blood Count 2.40L, Hemoglobin 7.6L, Hematocrit 23.7L , Mean Corpuscular Volume 99, Mean Corpuscular Hemoglobin 31.4H, Mean Corpuscular Hemoglobin Concent 31.8L, Red Cell Distribution Width 14.4, Platelet Count 45L, Mean Platelet Volume 9.2, Neutrophils (%) (Auto) , Lymphocytes (%) (Auto) , Monocytes (%) (Auto) , Eosinophils (%) (Auto) , Basophils (%) (Auto) , Differential Total Cells Counted 100, Neutrophils % ( Manual) 84H, Lymphocytes % (Manual) 10L, Monocytes % (Manual) 4, Eosinophils % ( Manual) 2, Basophils % (Manual) 0, Band Neutrophils 0, Platelet Estimate DecreasedL, Platelet Morphology Normal, Hypochromasia 1+ Height (Feet): 5 Height (Inches): 3.00 Weight (Pounds): 120 Objective Physical Exam Vitals: reviewed Gen: confused, on bipap, unable to converse, sleepy Pulm: ++ crackles ++ bipap CV: RRR, no mgr Abd: soft, nt, nd ++ peg Ext: no swelling of lower ext Neuro: demented Dewayne Gayle MD Dec 04, 2018 22:35
[2018-12-05] VITALS: BP 145/79
[2018-12-05] MEDS: Albuterol/Ipratropium 3ml neb HHN SCH ×4 (01:11→19:27)
[2018-12-05 04:00] VITALS: BP 148/84
--- NOTE | 2018-12-05 04:10 | NUR ---
NURSE NOTES: Pos.chg q2hrs.Kirk Cadena chg.Blood drawn for cbc/cmp/bnp/mg etc.spec.to lab.Brandi.BIPAP settings.Cont.monitoring.
[2018-12-05] MEDS: Piperacillin/Tazobactam 3.375 GM in D5W 110 ML IVPB SCH ×3 (05:38→20:56)
[2018-12-05] MEDS: NovoLOG Insulin Flexpen SUBQ SCH ×4 (06:00→23:36)
[2018-12-05 06:15] LABS: HEMATOCRIT 21.5 % (37.0-47.0); MEAN CORPUSCULAR VOLUME 97 FL (80-99); PLATELET COUNT 45 K/UL (150-450); RED BLOOD COUNT 2.22 M/UL (4.20-5.40); RED CELL DISTRIBUTION WIDTH 13.9 % (11.6-14.8); WHITE BLOOD COUNT 5.2 K/UL (4.8-10.8)
[2018-12-05 06:35] LABS: HEMOGLOBIN 6.9 G/DL (12.0-16.0)
[2018-12-05 07:01] LABS: ALANINE AMINOTRANSFERASE 17 U/L (12-78); ALBUMIN 1.4 G/DL (3.4-5.0); ALBUMIN/GLOBULIN RATIO 0.4 (1.0-2.7); ALKALINE PHOSPHATASE 69 U/L (46-116); ANION GAP 4 mmol/L (5-15); ASPARTATE AMINO TRANSFERASE 21 U/L (15-37); BILIRUBIN,TOTAL 0.4 MG/DL (0.2-1.0); BLOOD UREA NITROGEN 15 mg/dL (7-18); CARBON DIOXIDE 28 MMOL/L (21-32); CHLORIDE 117 MMOL/L (98-107); CREATININE 0.7 MG/DL (0.55-1.30); PHOSPHORUS 1.7 MG/DL (2.5-4.9); POTASSIUM 2.9 MMOL/L (3.5-5.1); SODIUM 149 MMOL/L (136-145)
--- NOTE | 2018-12-05 07:33 | NUR ---
NURSE NOTES: Received patient from DONIS ANGUIANO. Patient sleeping at this time. opens eyes to shaking and name. Patient on bipap 12/5 oxygen saturation 97%. Patient has a G tube that is patent and dressing intact. Patient has Vital AF 1.2 running at 60mL/hr at this time. Patient blood sugar checks q4hr Patient has a Leiva for urine retention, draining yellow urine below bladder. Patient has a right femoral TLC that is patent and asymptomatic at this time. Patient bed in low position with bed alarm on and call light in reach at this time. Patient has no labs ordered for this morning. Will follow up.
--- NOTE | 2018-12-05 07:35 | NUR ---
HAND-OFF: Report given to DONIS CABALLERO.
[2018-12-05 08:00] VITALS: BP 138/68
[2018-12-05] MEDS: Metoprolol 25mg tab ORAL SCH ×2 (09:03→20:56)
--- NOTE | 2018-12-05 10:00 | NUR ---
NURSE NOTES: Patient VS stable at this time with no sign of acute distress. patient is on BiPAP 12/5 at 30% FiO2 at this time.
[2018-12-05] MEDS ORDERED: Potassium Phosphate 30 MM in NS 275 ML IV ONE (11:00)
--- NOTE | 2018-12-05 11:30 | NUR ---
NURSE NOTES: called r.t to remove Bipap from pt.
[2018-12-05 12:00] VITALS: BP 146/73
--- NOTE | 2018-12-05 12:26 | Infectious Diseases Prog Note ---
Assessment/Plan Assessment/Plan A: 1. Proteus Sepsis 2. urinary tract infection with E.coli 3. Atelectasis on chest x-ray, may have underlying pneumonia. 4. Diabetes mellitus type 2. 5. Dementia. 6. Pancytopenia. 7. Pressure ulcer 8. MRSA & VRE colonization RECOMMENDATION: 1. Continue Zosyn. 2. will follow up the cultures. Subjective ROS Limited/Unobtainable: Yes Allergies: Coded Allergies: No Known Allergies (Unverified , 07/26/18) Objective Vital Signs Last 24 Hour Vital Signs Date Time Temp Pulse Resp B/P (MAP) Pulse Ox O2 Delivery O2 Flow Rate FiO2 12/05/18 09:03 91 138/68 12/05/18 08:00 Bi-pap 12/05/18 08:00 98.2 91 16 138/68 (91) 97 12/05/18 08:00 30 12/05/18 06:59 91 18 100 Bi-pap 30 12/05/18 06:52 90 18 99 Bi-pap 30 12/05/18 06:52 30 12/05/18 06:52 Bi-pap 30 12/05/18 06:52 99 Bi-pap 30 12/05/18 05:14 87 16 98 Facial 30 12/05/18 04:00 28 12/05/18 04:00 98.1 78 20 148/84 (105) 99 12/05/18 04:00 78 12/05/18 04:00 Nasal Cannula 3.0 12/05/18 03:15 78 16 98 Facial 30 12/05/18 01:21 30 12/05/18 01:21 80 15 100 Bi-pap 30 12/05/18 01:11 104 19 74 Bi-pap 30 12/05/18 01:03 79 15 100 Facial 30 12/05/18 00:00 28 12/05/18 00:00 98.2 79 20 145/79 (101) 99 12/05/18 00:00 76 12/05/18 00:00 Nasal Cannula 3.0 12/04/18 22:15 81 15 99 Facial 30 12/04/18 22:00 28 12/04/18 20:44 107 148/82 12/04/18 20:00 Nasal Cannula 3.0 12/04/18 20:00 98.8 99 21 148/82 (104) 100 12/04/18 20:00 107 12/04/18 20:00 3.0 12/04/18 19:35 89 18 100 Nasal Cannula 2.0 28 12/04/18 19:25 28 12/04/18 19:17 Nasal Cannula 2.0 28 12/04/18 19:17 97 Nasal Cannula 2.0 28 12/04/18 19:15 104 20 97 Nasal Cannula 2.0 28 12/04/18 16:09 141/73 12/04/18 16:00 99.0 99 20 141/73 (95) 97 12/04/18 16:00 95 12/04/18 16:00 3.0 12/04/18 16:00 Nasal Cannula 3.0 12/04/18 14:04 99 18 100 Nasal Cannula 2.0 28 12/04/18 14:03 28 12/04/18 14:03 98 18 98 Nasal Cannula 2.0 28 Height (Feet): 5 Height (Inches): 3.00 Weight (Pounds): 123 HEENT: mucous membranes moist Respiratory/Chest: lungs clear, other - on BIPAP Cardiovascular: normal rate, other - R femoral line Abdomen: soft, non tender, other - GT feeding Extremities: other - edema of legs Neurologic/Psychiatric: unresponsiveness Laboratory Tests Test 12/05/18 05:00 White Blood Count 5.2 K/UL (4.8-10.8) Red Blood Count 2.22 M/UL (4.20-5.40) L Hemoglobin 6.9 G/DL (12.0-16.0) *L Hematocrit 21.5 % (37.0-47.0) L Mean Corpuscular Volume 97 FL (80-99) Mean Corpuscular Hemoglobin 31.0 PG (27.0-31.0) Mean Corpuscular Hemoglobin Concent 32.0 G/DL (32.0-36.0) Red Cell Distribution Width 13.9 % (11.6-14.8) Platelet Count 45 K/UL (150-450) L Mean Platelet Volume 10.4 FL (6.5-10.1) H Neutrophils (%) (Auto) % (45.0-75.0) Lymphocytes (%) (Auto) % (20.0-45.0) Monocytes (%) (Auto) % (1.0-10.0) Eosinophils (%) (Auto) % (0.0-3.0) Basophils (%) (Auto) % (0.0-2.0) Differential Total Cells Counted 100 Neutrophils % (Manual) 75 % (45-75) Lymphocytes % (Manual) 14 % (20-45) L Monocytes % (Manual) 7 % (1-10) Eosinophils % (Manual) 4 % (0-3) H Basophils % (Manual) 0 % (0-2) Band Neutrophils 0 % (0-8) Platelet Estimate Decreased L Platelet Morphology Normal Macrocytosis 1+ Sodium Level 149 MMOL/L (136-145) H Potassium Level 2.9 MMOL/L (3.5-5.1) L Chloride Level 117 MMOL/L (98-107) H Carbon Dioxide Level 28 MMOL/L (21-32) Anion Gap 4 mmol/L (5-15) L Blood Urea Nitrogen 15 mg/dL (7-18) Creatinine 0.7 MG/DL (0.55-1.30) Estimat Glomerular Filtration Rate mL/min (>60) Glucose Level 118 MG/DL (74-106) #H Uric Acid 2.0 MG/DL (2.6-7.2) L Calcium Level 8.0 MG/DL (8.5-10.1) L Phosphorus Level 1.7 MG/DL (2.5-4.9) L Magnesium Level 1.6 MG/DL (1.8-2.4) L Total Bilirubin 0.4 MG/DL (0.2-1.0) Aspartate Amino Transf (AST/SGOT) 21 U/L (15-37) Alanine Aminotransferase (ALT/SGPT) 17 U/L (12-78) Alkaline Phosphatase 69 U/L (46-116) Troponin I 0.141 ng/mL (0.000-0.056) Pro-B-Type Natriuretic Peptide 3029 pg/mL (0-125) H Total Protein 5.3 G/DL (6.4-8.2) L Albumin 1.4 G/DL (3.4-5.0) L Globulin 3.9 g/dL Albumin/Globulin Ratio 0.4 (1.0-2.7) L Current Medications Medications (Trade) Dose Ordered Sig/Laure Route PRN Reason Start Time Stop Time Status Last Admin Dose Admin Acetaminophen (Tylenol) 650 mg Q4HR PRN NG Mild Pain/Temp > 100.5 12/03/18 17:00 01/01/19 04:14 Albuterol/ Ipratropium (Albuterol/ Ipratropium) 3 ml Q4H PRN HHN Shortness of Breath 12/03/18 14:15 12/06/18 10:14 Albuterol/ Ipratropium (Albuterol/ Ipratropium) 3 ml Q6HRT HHN 12/04/18 13:00 12/09/18 12:59 12/05/18 06:52 Chlorhexidine Gluconate (Georgina-Hex 2%) 1 applic DAILY@2000 TOPIC 12/03/18 20:00 12/31/18 19:59 12/04/18 19:55 Dextrose (Dextrose 50%) 25 ml Q30M PRN IV Hypoglycemia 12/03/18 13:30 12/31/18 12:29 Dextrose (Dextrose 50%) 50 ml Q30M PRN IV Hypoglycemia 12/03/18 13:30 12/31/18 12:29 Insulin Aspart (NovoLOG) Q6HR SUBQ 12/03/18 18:00 12/31/18 17:59 12/05/18 10:49 Magnesium Sulfate 100 ml @ 100 mls/hr Q1H IVPB 12/05/18 10:00 12/05/18 13:59 12/05/18 11:49 Metoprolol Tartrate (Lopressor) 25 mg Q12HR ORAL 12/03/18 17:00 01/02/19 16:59 12/05/18 09:03 Nitroglycerin (Ntg) 1 patch Q24H TDERMAL 12/03/18 16:00 01/01/19 15:59 12/04/18 16:09 Ondansetron HCl (Zofran) 4 mg Q6H PRN IVP Nausea & Vomiting 12/03/18 16:15 12/31/18 10:14 Piperacillin Sod/ Tazobactam Sod 3.375 gm/Dextrose 110 ml @ 27.5 mls/hr EVERY 8 HOURS IVPB 12/03/18 14:00 12/06/18 23:59 12/05/18 05:38 Potassium Phosphate 30 mm/ Sodium Chloride 285 ml @ 47.5 mls/hr ONCE ONCE IV 12/05/18 11:00 12/05/18 16:59 12/05/18 12:05 Shimon Card MD Dec 05, 2018 12:26
--- NOTE | 2018-12-05 12:27 | Diagnostic Imaging Report ---
APPROVED REPORT CPT Code: 83274 Present Symptoms Shortness of breath Comments: Hx of an IVC filter Past History DVT :Left RIGHT LEG: Venous imaging reveals a patent deep venous system. There is no evidence of thrombus within the mid superficial femoral, popliteal or tibial segments. The greater saphenous vein is also within normal limits. Doppler indicates normal spontaneous flow within these segments. The common and proximal superficial femoral veins were not imaged, due to a catheter. LEFT LEG: Venous imaging reveals recanalized chronic thrombus in the superficial femoral vein. The remainder of the deep venous system is within normal limits. There is no evidence of thrombus in the common femoral, popliteal or calf veins. The greater saphenous vein is also within normal limits. Doppler indicates normal spontaneous flow within these segments. There is no evidence of acute deep vein thrombosis.
[2018-12-05 12:31] LABS: HEMATOCRIT 20.7 % (37.0-47.0); MEAN CORPUSCULAR VOLUME 98 FL (80-99); PLATELET COUNT 39 K/UL (150-450); RED CELL DISTRIBUTION WIDTH 14.1 % (11.6-14.8); WHITE BLOOD COUNT 4.6 K/UL (4.8-10.8)
[2018-12-05 12:32] LABS: HEMOGLOBIN 6.6 G/DL (12.0-16.0)
--- NOTE | 2018-12-05 12:54 | Nephrology Progress Note ---
Assessment/Plan Problem List: (1) Sepsis Assessment: low bp (2) Oliguria Assessment: due low bp (3) Anemia (4) Hypokalemia (5) Diabetic nephropathy (6) Elevated troponin I level Assessment Oliguria due to low BP Sepsis and low BP Elevated troponin UTI (urinary tract infection) Pneumonia Anemia worsening DM+ Proteinuria: Nephropathy s/p IVC Filter Acute encephalopathy HypoAlbuminemia Plan DC IV fluids K Phos , KCl , MgSo4 IV ordered Fluid challenge antibiotics avoid nephrotoxics anemia mac per orders Subjective ROS Limited/Unobtainable: No Constitutional: Reports: malaise Objective Objective Last 24 Hour Vital Signs Date Time Temp Pulse Resp B/P (MAP) Pulse Ox O2 Delivery O2 Flow Rate FiO2 12/05/18 09:03 91 138/68 12/05/18 08:00 Bi-pap 12/05/18 08:00 98.2 91 16 138/68 (91) 97 12/05/18 08:00 30 12/05/18 06:59 91 18 100 Bi-pap 30 12/05/18 06:52 90 18 99 Bi-pap 30 12/05/18 06:52 30 12/05/18 06:52 Bi-pap 30 12/05/18 06:52 99 Bi-pap 30 12/05/18 05:14 87 16 98 Facial 30 12/05/18 04:00 28 12/05/18 04:00 98.1 78 20 148/84 (105) 99 12/05/18 04:00 78 12/05/18 04:00 Nasal Cannula 3.0 12/05/18 03:15 78 16 98 Facial 30 12/05/18 01:21 30 12/05/18 01:21 80 15 100 Bi-pap 30 12/05/18 01:11 104 19 74 Bi-pap 30 12/05/18 01:03 79 15 100 Facial 30 12/05/18 00:00 28 12/05/18 00:00 98.2 79 20 145/79 (101) 99 12/05/18 00:00 76 12/05/18 00:00 Nasal Cannula 3.0 12/04/18 22:15 81 15 99 Facial 30 12/04/18 22:00 28 12/04/18 20:44 107 148/82 12/04/18 20:00 Nasal Cannula 3.0 2/24/19 20:00 98.8 99 21 148/82 (104) 100 12/04/18 20:00 107 12/04/18 20:00 3.0 12/04/18 19:35 89 18 100 Nasal Cannula 2.0 28 12/04/18 19:25 28 12/04/18 19:17 Nasal Cannula 2.0 28 12/04/18 19:17 97 Nasal Cannula 2.0 28 12/04/18 19:15 104 20 97 Nasal Cannula 2.0 28 12/04/18 16:09 141/73 12/04/18 16:00 99.0 99 20 141/73 (95) 97 12/04/18 16:00 95 12/04/18 16:00 3.0 12/04/18 16:00 Nasal Cannula 3.0 12/04/18 14:04 99 18 100 Nasal Cannula 2.0 28 12/04/18 14:03 28 12/04/18 14:03 98 18 98 Nasal Cannula 2.0 28 Intake and Output 12/04/18 12/05/18 19:00 07:00 Intake Total 2252.500 ml 220 ml Output Total 1500 ml 1250 ml Balance 752.500 ml -1030 ml Free Water 300 ml IV Total 1292.500 ml Tube Feeding 660 ml 220 ml Output Urine Total 1500 ml 1250 ml Laboratory Tests 12/05/18 05:00: White Blood Count 5.2, Red Blood Count 2.22L, Hemoglobin 6.9*L, Hematocrit 21.5L , Mean Corpuscular Volume 97, Mean Corpuscular Hemoglobin 31.0, Mean Corpuscular Hemoglobin Concent 32.0, Red Cell Distribution Width 13.9, Platelet Count 45L, Mean Platelet Volume 10.4H, Neutrophils (%) (Auto) , Lymphocytes (%) (Auto) , Monocytes (%) (Auto) , Eosinophils (%) (Auto) , Basophils (%) (Auto) , Differential Total Cells Counted 100, Neutrophils % (Manual) 75, Lymphocytes % ( Manual) 14L, Monocytes % (Manual) 7, Eosinophils % (Manual) 4H, Basophils % ( Manual) 0, Band Neutrophils 0, Platelet Estimate DecreasedL, Platelet Morphology Normal, Macrocytosis 1+, Sodium Level 149H, Potassium Level 2.9L, Chloride Level 117H, Carbon Dioxide Level 28, Anion Gap 4L, Blood Urea Nitrogen 15, Creatinine 0.7, Estimat Glomerular Filtration Rate , Glucose Level 118#H, Uric Acid 2.0L, Calcium Level 8.0L, Phosphorus Level 1.7L, Magnesium Level 1.6L , Total Bilirubin 0.4, Aspartate Amino Transf (AST/SGOT) 21, Alanine Aminotransferase (ALT/SGPT) 17, Alkaline Phosphatase 69, Troponin I 0.141H, Pro- B-Type Natriuretic Peptide 3029H, Total Protein 5.3L, Albumin 1.4L, Globulin 3.9 , Albumin/Globulin Ratio 0.4L 12/05/18 12:00: White Blood Count 4.6L, Red Blood Count 2.10L, Hemoglobin 6.6*L, Hematocrit 20.7L, Mean Corpuscular Volume 98, Mean Corpuscular Hemoglobin 31.2H, Mean Corpuscular Hemoglobin Concent 31.7L, Red Cell Distribution Width 14.1, Platelet Count 39L, Mean Platelet Volume 9.2, Neutrophils (%) (Auto) , Lymphocytes (%) (Auto) , Monocytes (%) (Auto) , Eosinophils (%) (Auto) , Basophils (%) (Auto) , Neutrophils % (Manual) [Pending], Lymphocytes % (Manual) [Pending], Platelet Estimate [Pending], Platelet Morphology [Pending] Height (Feet): 5 Height (Inches): 3.00 Weight (Pounds): 123 General Appearance: no apparent distress Cardiovascular: tachycardia Respiratory/Chest: decreased breath sounds Abdomen: distended Parvez Bergman MD Dec 05, 2018 12:54
--- NOTE | 2018-12-05 14:13 | GI Progress Note ---
Assessment/Plan Problems: (1) Feeding by G-tube ICD Codes: Z93.1 - Gastrostomy status SNOMED: 061546096, 704696031, 363734168 (2) Anemia ICD Codes: D64.9 - Anemia, unspecified SNOMED: 514760090 (3) Malnutrition ICD Codes: E46 - Unspecified protein-calorie malnutrition SNOMED: 57196293 (4) Dehydration ICD Codes: E86.0 - Dehydration SNOMED: 84026815 (5) Dementia with behavioral disturbance ICD Codes: F03.91 - Unspecified dementia with behavioral disturbance SNOMED: 0583782919040 Status: unchanged Status Narrative Discussed with Dr. Argueta. Assessment/Plan GTF while off of BIPAP fu labs abx per ID supportive care fu The patient was seen and examined at bedside and all new and available data was reviewed in the patients chart. I agree with the above findings, impression and plan. (Patient seen earlier today. Signature stamp does not reflect patient encounter time.). - Edwardo Argueta MD Subjective Subjective limited Objective Last 24 Hour Vital Signs Date Time Temp Pulse Resp B/P (MAP) Pulse Ox O2 Delivery O2 Flow Rate FiO2 12/05/18 13:18 83 16 100 Nasal Cannula 2.0 28 12/05/18 13:13 80 16 100 Nasal Cannula 2.0 28 12/05/18 13:13 28 12/05/18 09:03 91 138/68 12/05/18 08:00 Bi-pap 12/05/18 08:00 98.2 91 16 138/68 (91) 97 12/05/18 08:00 30 12/05/18 06:59 91 18 100 Bi-pap 30 12/05/18 06:52 90 18 99 Bi-pap 30 12/05/18 06:52 30 12/05/18 06:52 Bi-pap 30 12/05/18 06:52 99 Bi-pap 30 12/05/18 05:14 87 16 98 Facial 30 12/05/18 04:00 28 12/05/18 04:00 98.1 78 20 148/84 (105) 99 12/05/18 04:00 78 12/05/18 04:00 Nasal Cannula 3.0 12/05/18 03:15 78 16 98 Facial 30 12/05/18 01:21 30 12/05/18 01:21 80 15 100 Bi-pap 30 12/05/18 01:11 104 19 74 Bi-pap 30 12/05/18 01:03 79 15 100 Facial 30 12/05/18 00:00 28 12/05/18 00:00 98.2 79 20 145/79 (101) 99 12/05/18 00:00 76 12/05/18 00:00 Nasal Cannula 3.0 12/04/18 22:15 81 15 99 Facial 30 12/04/18 22:00 28 12/04/18 20:44 107 148/82 12/04/18 20:00 Nasal Cannula 3.0 12/04/18 20:00 98.8 99 21 148/82 (104) 100 12/04/18 20:00 107 12/04/18 20:00 3.0 12/04/18 19:35 89 18 100 Nasal Cannula 2.0 28 12/04/18 19:25 28 12/04/18 19:17 Nasal Cannula 2.0 28 12/04/18 19:17 97 Nasal Cannula 2.0 28 12/04/18 19:15 104 20 97 Nasal Cannula 2.0 28 12/04/18 16:09 141/73 12/04/18 16:00 99.0 99 20 141/73 (95) 97 12/04/18 16:00 95 12/04/18 16:00 3.0 12/04/18 16:00 Nasal Cannula 3.0 Intake and Output 12/04/18 12/05/18 18:59 06:59 Intake Total 2415.000 ml 220 ml Output Total 1500 ml 1250 ml Balance 915.000 ml -1030 ml Free Water 300 ml IV Total 1395.000 ml Tube Feeding 720 ml 220 ml Output Urine Total 1500 ml 1250 ml Laboratory Tests Test 12/05/18 05:00 12/05/18 12:00 White Blood Count 5.2 K/UL (4.8-10.8) 4.6 K/UL (4.8-10.8) L Red Blood Count 2.22 M/UL (4.20-5.40) L 2.10 M/UL (4.20-5.40) L Hemoglobin 6.9 G/DL (12.0-16.0) *L 6.6 G/DL (12.0-16.0) *L Hematocrit 21.5 % (37.0-47.0) L 20.7 % (37.0-47.0) L Mean Corpuscular Volume 97 FL (80-99) 98 FL (80-99) Mean Corpuscular Hemoglobin 31.0 PG (27.0-31.0) 31.2 PG (27.0-31.0) H Mean Corpuscular Hemoglobin Concent 32.0 G/DL (32.0-36.0) 31.7 G/DL (32.0-36.0) L Red Cell Distribution Width 13.9 % (11.6-14.8) 14.1 % (11.6-14.8) Platelet Count 45 K/UL (150-450) L 39 K/UL (150-450) L Mean Platelet Volume 10.4 FL (6.5-10.1) H 9.2 FL (6.5-10.1) Neutrophils (%) (Auto) % (45.0-75.0) % (45.0-75.0) Lymphocytes (%) (Auto) % (20.0-45.0) % (20.0-45.0) Monocytes (%) (Auto) % (1.0-10.0) % (1.0-10.0) Eosinophils (%) (Auto) % (0.0-3.0) % (0.0-3.0) Basophils (%) (Auto) % (0.0-2.0) % (0.0-2.0) Differential Total Cells Counted 100 100 Neutrophils % (Manual) 75 % (45-75) 84 % (45-75) H Lymphocytes % (Manual) 14 % (20-45) L 10 % (20-45) L Monocytes % (Manual) 7 % (1-10) 4 % (1-10) Eosinophils % (Manual) 4 % (0-3) H 1 % (0-3) Basophils % (Manual) 0 % (0-2) 0 % (0-2) Band Neutrophils 0 % (0-8) 1 % (0-8) Platelet Estimate Decreased L Decreased L Platelet Morphology Normal Normal Macrocytosis 1+ 1+ Sodium Level 149 MMOL/L (136-145) H Potassium Level 2.9 MMOL/L (3.5-5.1) L Chloride Level 117 MMOL/L (98-107) H Carbon Dioxide Level 28 MMOL/L (21-32) Anion Gap 4 mmol/L (5-15) L Blood Urea Nitrogen 15 mg/dL (7-18) Creatinine 0.7 MG/DL (0.55-1.30) Estimat Glomerular Filtration Rate mL/min (>60) Glucose Level 118 MG/DL (74-106) #H Uric Acid 2.0 MG/DL (2.6-7.2) L Calcium Level 8.0 MG/DL (8.5-10.1) L Phosphorus Level 1.7 MG/DL (2.5-4.9) L Magnesium Level 1.6 MG/DL (1.8-2.4) L Total Bilirubin 0.4 MG/DL (0.2-1.0) Aspartate Amino Transf (AST/SGOT) 21 U/L (15-37) Alanine Aminotransferase (ALT/SGPT) 17 U/L (12-78) Alkaline Phosphatase 69 U/L (46-116) Troponin I 0.141 ng/mL (0.000-0.056) Pro-B-Type Natriuretic Peptide 3029 pg/mL (0-125) H Total Protein 5.3 G/DL (6.4-8.2) L Albumin 1.4 G/DL (3.4-5.0) L Globulin 3.9 g/dL Albumin/Globulin Ratio 0.4 (1.0-2.7) L Height (Feet): 5 Height (Inches): 3.00 Weight (Pounds): 123 General Appearance: mild distress Cardiovascular: normal rate Respiratory/Chest: normal breath sounds, no respiratory distress Abdominal Exam: normal bowel sounds, non tender, soft, GT site - c/d/i Extremities: non-tender Aidee Powell NP Dec 05, 2018 14:13
[2018-12-05 16:00] VITALS: BP 140/70
[2018-12-05] MEDS: Nitroglycerin Patch 0.4mg TDERMAL SCH (16:20)
--- NOTE | 2018-12-05 18:14 | NUR ---
NURSE NOTES: transfusing / prbc. pt vs 99.6, hr 92, bp 153/78. pt in no acute distress.
--- NOTE | 2018-12-05 18:30 | NUR ---
NURSE NOTES: 10/11 unit prbc transfusing vs after starting 99.8, hr 91, bp 155/75. pt in no acte distress will continue to monitor pt closely.
--- NOTE | 2018-12-05 19:26 | NUR ---
NURSE NOTES: Received bedside report from DONIS Abreu.Patient stable,obtunded,open eyes,SR on mutuel cashier,BiPAP at night 12/5 FiO2 30%,tolerated well at this time 2 L/min N/C,Sat O2 98%,no s/s of pain,no respiratory distress noted,GT running with Vital AF @ 60ml/hr,flush 100 ml every 4 hrs,BS active in all quadrants,IV on a R/femoral triple lumen running with pRBC,no adverse reaction noted,labs scheduled for tomorrow morning,bed secured,call light within a reach.Will continue to monitor and follow POC
--- NOTE | 2018-12-05 19:41 | NUR ---
CASE MANAGEMENT: REVIEW SI: SEPSIS . ANEMIA . DVT S/P IVC FILTER T 99.1 HR 91 RR 18 BP 146/73 SAT 99% BIPAP FIO2 28 WBC 4.6 H/H 6.6/20.7 NA 149 K 2.9 TROPONIN I 0.141 IS: ZOSYN IV Q8HR ALBUTEROL HHN Q6HR NOVOLOG SQ Q6HR TRANSFUSION PRBC STEP DOWN UNIT STATUS DCP: PATIENT IS FROM [facility]
--- NOTE | 2018-12-05 19:49 | NUR ---
HAND-OFF: Report given to anahy wayne continue 10/11 unit prbc, started at 1813
[2018-12-05 20:00] VITALS: BP 148/78
[2018-12-05] MEDS: Dyna-Hex 2% Top Sol 2oz TOPIC SCH (20:55)
--- NOTE | 2018-12-05 21:10 | NUR ---
NURSE NOTES: Blood tansfusion done,no adverse reaction noted,V/S stable.
--- NOTE | 2018-12-05 21:25 | General Progress Note ---
Assessment/Plan Problem List: (1) UTI (urinary tract infection) ICD Codes: N39.0 - Urinary tract infection, site not specified SNOMED: 05713553 Qualifiers: Qualified Codes: N39.0 - Urinary tract infection, site not specified (2) Pneumonia ICD Codes: J18.9 - Pneumonia, unspecified organism SNOMED: 474828912, 285466795, 743419295 Qualifiers: Qualified Codes: J18.1 - Lobar pneumonia, unspecified organism (3) Elevated troponin ICD Codes: R74.8 - Abnormal levels of other serum enzymes SNOMED: 960916452, 567302238, 121134607 (4) Dehydration ICD Codes: E86.0 - Dehydration SNOMED: 02849639 (5) Hypokalemia ICD Codes: E87.6 - Hypokalemia SNOMED: 13831527 (6) Malnutrition ICD Codes: E46 - Unspecified protein-calorie malnutrition SNOMED: 77656366 (7) Dementia with behavioral disturbance ICD Codes: F03.91 - Unspecified dementia with behavioral disturbance SNOMED: 8670983459535 (8) Encephalopathy due to metabolic factor or toxin SNOMED: 566476313 (9) Anemia ICD Codes: D64.9 - Anemia, unspecified SNOMED: 463502523 (10) Sepsis ICD Codes: A41.9 - Sepsis, unspecified organism SNOMED: 05539090 Qualifiers: Qualified Codes: A41.9 - Sepsis, unspecified organism (11) Diabetic nephropathy 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 SNOMED: 202908247 Status: unchanged Assessment/Plan reviewed chart and meds check h/h hb was trending down and informed dr jen shea check lytes anemia is severe needs close monitering sepsis encephalopathy Subjective ROS Limited/Unobtainable: Yes Constitutional: Reports: no symptoms Allergies: Coded Allergies: No Known Allergies (Unverified , 07/26/18) Objective Last 24 Hour Vital Signs Date Time Temp Pulse Resp B/P (MAP) Pulse Ox O2 Delivery O2 Flow Rate FiO2 12/05/18 20:56 88 148/78 12/05/18 19:37 91 18 100 Nasal Cannula 2.0 28 12/05/18 19:27 Nasal Cannula 2.0 28 12/05/18 19:27 91 18 99 Nasal Cannula 2.0 28 12/05/18 19:27 99 Nasal Cannula 2.0 28 12/05/18 16:20 140/70 12/05/18 16:00 99.1 91 18 140/70 (93) 99 12/05/18 16:00 89 12/05/18 16:00 Bi-pap 12/05/18 16:00 2.0 12/05/18 13:18 83 16 100 Nasal Cannula 2.0 28 12/05/18 13:13 80 16 100 Nasal Cannula 2.0 28 12/05/18 13:13 28 12/05/18 12:00 2.0 12/05/18 12:00 98.4 88 18 146/73 (97) 99 12/05/18 12:00 82 12/05/18 12:00 Bi-pap 12/05/18 11:10 2.0 12/05/18 09:03 91 138/68 12/05/18 08:00 Bi-pap 12/05/18 08:00 88 12/05/18 08:00 98.2 91 16 138/68 (91) 97 12/05/18 08:00 30 12/05/18 06:59 91 18 100 Bi-pap 30 12/05/18 06:52 90 18 99 Bi-pap 30 12/05/18 06:52 30 12/05/18 06:52 Bi-pap 30 12/05/18 06:52 99 Bi-pap 30 12/05/18 05:14 87 16 98 Facial 30 12/05/18 04:00 28 12/05/18 04:00 98.1 78 20 148/84 (105) 99 12/05/18 04:00 78 12/05/18 04:00 Nasal Cannula 3.0 12/05/18 03:15 78 16 98 Facial 30 12/05/18 01:21 30 12/05/18 01:21 80 15 100 Bi-pap 30 12/05/18 01:11 104 19 74 Bi-pap 30 12/05/18 01:03 79 15 100 Facial 30 12/05/18 00:00 28 12/05/18 00:00 98.2 79 20 145/79 (101) 99 12/05/18 00:00 76 12/05/18 00:00 Nasal Cannula 3.0 12/04/18 22:15 81 15 99 Facial 30 12/04/18 22:00 28 Intake and Output 12/04/18 12/05/18 19:00 07:00 Intake Total 2252.500 ml 330 ml Output Total 1500 ml 1250 ml Balance 752.500 ml -920 ml Free Water 300 ml IV Total 1292.500 ml 110 ml Tube Feeding 660 ml 220 ml Output Urine Total 1500 ml 1250 ml Laboratory Tests 12/05/18 05:00: White Blood Count 5.2, Red Blood Count 2.22L, Hemoglobin 6.9*L, Hematocrit 21.5L , Mean Corpuscular Volume 97, Mean Corpuscular Hemoglobin 31.0, Mean Corpuscular Hemoglobin Concent 32.0, Red Cell Distribution Width 13.9, Platelet Count 45L, Mean Platelet Volume 10.4H, Neutrophils (%) (Auto) , Lymphocytes (%) (Auto) , Monocytes (%) (Auto) , Eosinophils (%) (Auto) , Basophils (%) (Auto) , Differential Total Cells Counted 100, Neutrophils % (Manual) 75, Lymphocytes % ( Manual) 14L, Monocytes % (Manual) 7, Eosinophils % (Manual) 4H, Basophils % ( Manual) 0, Band Neutrophils 0, Platelet Estimate DecreasedL, Platelet Morphology Normal, Macrocytosis 1+, Sodium Level 149H, Potassium Level 2.9L, Chloride Level 117H, Carbon Dioxide Level 28, Anion Gap 4L, Blood Urea Nitrogen 15, Creatinine 0.7, Estimat Glomerular Filtration Rate , Glucose Level 118#H, Uric Acid 2.0L, Calcium Level 8.0L, Phosphorus Level 1.7L, Magnesium Level 1.6L , Total Bilirubin 0.4, Aspartate Amino Transf (AST/SGOT) 21, Alanine Aminotransferase (ALT/SGPT) 17, Alkaline Phosphatase 69, Troponin I 0.141H, Pro- B-Type Natriuretic Peptide 3029H, Total Protein 5.3L, Albumin 1.4L, Globulin 3.9 , Albumin/Globulin Ratio 0.4L 12/05/18 12:00: White Blood Count 4.6L, Red Blood Count 2.10L, Hemoglobin 6.6*L, Hematocrit 20.7L, Mean Corpuscular Volume 98, Mean Corpuscular Hemoglobin 31.2H, Mean Corpuscular Hemoglobin Concent 31.7L, Red Cell Distribution Width 14.1, Platelet Count 39L, Mean Platelet Volume 9.2, Neutrophils (%) (Auto) , Lymphocytes (%) (Auto) , Monocytes (%) (Auto) , Eosinophils (%) (Auto) , Basophils (%) (Auto) , Differential Total Cells Counted 100, Neutrophils % ( Manual) 84H, Lymphocytes % (Manual) 10L, Monocytes % (Manual) 4, Eosinophils % ( Manual) 1, Basophils % (Manual) 0, Band Neutrophils 1, Platelet Estimate DecreasedL, Platelet Morphology Normal, Macrocytosis 1+ Height (Feet): 5 Height (Inches): 3.00 Weight (Pounds): 123 Cardiovascular: normal rate Respiratory/Chest: lungs clear Yi Asencio MD Dec 05, 2018 21:25
--- NOTE | 2018-12-05 22:18 | General Progress Note ---
Assessment/Plan Assessment/Plan Assessment/Recs: # DVT of the left leg s/p IVC filter in 07/2018-- superficial femoral vein which is a deep vein, new onset, has not had these symptoms before. Lower hgb and plts --> given decreased h/h, low thrombocytopenia, do not recommend anticoag --> appreciate Dr. Parekh and Mariam recs from prior admission --> smear reviewed # Pancytopenia, likely related to septicemia, appears new baseline 50-70k, several causes possible including viral, medication or intrabone marrow related. --> Cont to monitor plt count for improvement --> US abd: Mild left hydronephrosis. Possible left renal calyceal calculi. Negative for gallstones or dilated ducts Debris noted within the bladder --> Hep panel and HIV are both negative --> given extremely poor condition do not recommend a bone marrow biopsy, have discussed with family 08/01 with --> will rediscuss once sepsis resolves --> transfuse if plt <20k # Anemia of chronic disease. Multifactorial. Since admission Hgb has consistently remained between 8-9. --> Cont to monitor for stability --> Hgb goal above 7. Transfuse prn. --> IV iron completed prior admission and feritin is elevated # Dehydration. IVF has been administered --> improved # DM OOC --> A1C goal <7 --> Cont on insulin # Bacteremia/prior UTI. --> ID is following. Appreciate recs. --> Pt on IV abx. --> Cultures surveillance as per id # PEG placement 08/04. Greatly appreciate consultation! Subjective Constitutional: Denies: no symptoms, chills, diaphoresis, fever, malaise, weakness, other HEENT: Denies: no symptoms, eye pain, blurred vision, tearing, double vision, ear pain, ear discharge, nose pain, nose congestion, throat pain, throat swelling, mouth pain, mouth swelling, other Cardiovascular: Denies: no symptoms, chest pain, edema, irregular heart rate, lightheadedness, palpitations, syncope, other Respiratory: Denies: no symptoms, cough, orthopnea, shortness of breath, SOB with excertion, SOB at rest, sputum, stridor, wheezing, other Gastrointestinal/Abdominal: Denies: no symptoms, abdomen distended, abdominal pain, black stools, tarry stools, blood in stool, constipated, diarrhea, difficulty swallowing, nausea, poor appetite, poor fluid intake, rectal bleeding , vomiting, other Genitourinary: Denies: no symptoms, burning, discharge, frequency, flank pain, hematuria, incontinence, pain, urgency, other Neurologic/Psychiatric: Denies: no symptoms, anxiety, depressed, emotional problems, headache, numbness, paresthesia, pre-existing deficit, seizure, tingling, tremors, weakness, other Endocrine: Denies: no symptoms, excessive sweating, flushing, intolerance to cold, intolerance to heat, increased hunger, increased thirst, increased urine, unexplained weight gain, unexplained weight loss, other Hematologic/Lymphatic: Denies: no symptoms, anemia, easy bleeding, easy bruising, other Allergies: Coded Allergies: No Known Allergies (Unverified , 07/26/18) Subjective 12/02: seen by bedside, hgb 7.6, will transfuse as needed, plt trending down, GTF on hold, patient on BIPAP, has been tachycardic over night, abx per ID 12/04: Seen by bedside, out of ICU, tolerating TF, off BIPAP, plt trending down to 45, hgb 7.6. 12/05: Pt is resting in bed, hgb 6.6 and plt 39, received transfusion, no events. Objective Last 24 Hour Vital Signs Date Time Temp Pulse Resp B/P (MAP) Pulse Ox O2 Delivery O2 Flow Rate FiO2 12/05/18 20:56 88 148/78 12/05/18 20:00 2.0 12/05/18 20:00 Bi-pap 12/05/18 20:00 98.8 88 18 148/78 (101) 99 12/05/18 19:42 92 12/05/18 19:37 91 18 100 Nasal Cannula 2.0 28 12/05/18 19:27 Nasal Cannula 2.0 28 12/05/18 19:27 91 18 99 Nasal Cannula 2.0 28 12/05/18 19:27 99 Nasal Cannula 2.0 28 12/05/18 16:20 140/70 12/05/18 16:00 99.1 91 18 140/70 (93) 99 12/05/18 16:00 89 12/05/18 16:00 Bi-pap 12/05/18 16:00 2.0 12/05/18 13:18 83 16 100 Nasal Cannula 2.0 28 12/05/18 13:13 80 16 100 Nasal Cannula 2.0 28 12/05/18 13:13 28 12/05/18 12:00 2.0 12/05/18 12:00 98.4 88 18 146/73 (97) 99 12/05/18 12:00 82 12/05/18 12:00 Bi-pap 12/05/18 11:10 2.0 12/05/18 09:03 91 138/68 12/05/18 08:00 Bi-pap 12/05/18 08:00 88 12/05/18 08:00 98.2 91 16 138/68 (91) 97 12/05/18 08:00 30 12/05/18 06:59 91 18 100 Bi-pap 30 12/05/18 06:52 90 18 99 Bi-pap 30 12/05/18 06:52 30 12/05/18 06:52 Bi-pap 30 12/05/18 06:52 99 Bi-pap 30 12/05/18 05:14 87 16 98 Facial 30 12/05/18 04:00 28 12/05/18 04:00 98.1 78 20 148/84 (105) 99 12/05/18 04:00 78 12/05/18 04:00 Nasal Cannula 3.0 12/05/18 03:15 78 16 98 Facial 30 12/05/18 01:21 30 12/05/18 01:21 80 15 100 Bi-pap 30 12/05/18 01:11 104 19 74 Bi-pap 30 12/05/18 01:03 79 15 100 Facial 30 12/05/18 00:00 28 12/05/18 00:00 98.2 79 20 145/79 (101) 99 12/05/18 00:00 76 12/05/18 00:00 Nasal Cannula 3.0 Intake and Output 12/04/18 12/05/18 19:00 07:00 Intake Total 2252.500 ml 330 ml Output Total 1500 ml 1250 ml Balance 752.500 ml -920 ml Free Water 300 ml IV Total 1292.500 ml 110 ml Tube Feeding 660 ml 220 ml Output Urine Total 1500 ml 1250 ml Laboratory Tests 12/05/18 05:00: White Blood Count 5.2, Red Blood Count 2.22L, Hemoglobin 6.9*L, Hematocrit 21.5L , Mean Corpuscular Volume 97, Mean Corpuscular Hemoglobin 31.0, Mean Corpuscular Hemoglobin Concent 32.0, Red Cell Distribution Width 13.9, Platelet Count 45L, Mean Platelet Volume 10.4H, Neutrophils (%) (Auto) , Lymphocytes (%) (Auto) , Monocytes (%) (Auto) , Eosinophils (%) (Auto) , Basophils (%) (Auto) , Differential Total Cells Counted 100, Neutrophils % (Manual) 75, Lymphocytes % ( Manual) 14L, Monocytes % (Manual) 7, Eosinophils % (Manual) 4H, Basophils % ( Manual) 0, Band Neutrophils 0, Platelet Estimate DecreasedL, Platelet Morphology Normal, Macrocytosis 1+, Sodium Level 149H, Potassium Level 2.9L, Chloride Level 117H, Carbon Dioxide Level 28, Anion Gap 4L, Blood Urea Nitrogen 15, Creatinine 0.7, Estimat Glomerular Filtration Rate , Glucose Level 118#H, Uric Acid 2.0L, Calcium Level 8.0L, Phosphorus Level 1.7L, Magnesium Level 1.6L , Total Bilirubin 0.4, Aspartate Amino Transf (AST/SGOT) 21, Alanine Aminotransferase (ALT/SGPT) 17, Alkaline Phosphatase 69, Troponin I 0.141H, Pro- B-Type Natriuretic Peptide 3029H, Total Protein 5.3L, Albumin 1.4L, Globulin 3.9 , Albumin/Globulin Ratio 0.4L 12/05/18 12:00: White Blood Count 4.6L, Red Blood Count 2.10L, Hemoglobin 6.6*L, Hematocrit 20.7L, Mean Corpuscular Volume 98, Mean Corpuscular Hemoglobin 31.2H, Mean Corpuscular Hemoglobin Concent 31.7L, Red Cell Distribution Width 14.1, Platelet Count 39L, Mean Platelet Volume 9.2, Neutrophils (%) (Auto) , Lymphocytes (%) (Auto) , Monocytes (%) (Auto) , Eosinophils (%) (Auto) , Basophils (%) (Auto) , Differential Total Cells Counted 100, Neutrophils % ( Manual) 84H, Lymphocytes % (Manual) 10L, Monocytes % (Manual) 4, Eosinophils % ( Manual) 1, Basophils % (Manual) 0, Band Neutrophils 1, Platelet Estimate DecreasedL, Platelet Morphology Normal, Macrocytosis 1+ Height (Feet): 5 Height (Inches): 3.00 Weight (Pounds): 123 Objective Physical Exam Vitals: reviewed Gen: confused, on bipap, unable to converse, sleepy Pulm: ++ crackles ++ bipap CV: RRR, no mgr Abd: soft, nt, nd ++ peg Ext: no swelling of lower ext Neuro: demented Dewayne Gayle MD Dec 05, 2018 22:18
--- NOTE | 2018-12-05 22:59 | Pulmonology Progress Note ---
Assessment/Plan Problems: (1) UTI (urinary tract infection) (2) Pneumonia (3) Sepsis (4) DVT (deep venous thrombosis) (5) Dementia with behavioral disturbance (6) Malnutrition (7) Anemia (8) Thrombocytopenia (9) Feeding by G-tube (10) Elevated troponin I level (11) S/P IVC filter Assessment/Plan Optimize pulmonary hygiene/mobilize as tolerated Titrate down FiO2 to keep SaO2 > 90% RTC and PRN HHN's Abx per ID, F/U Cx's TF's as tolerated Monitor volumes and renal function Monitor CBC, transfuse as needed (Getting PRBC today) F/U application support consultant recs DVT Px: IVCF FC, continue to discuss GOC Subjective Allergies: Coded Allergies: No Known Allergies (Unverified , 07/26/18) Subjective AFVSS on 2L HB 6.6 getting PRBC leta TF"s no respiratory distress no cough no SOB no wheezing no F.C Objective Last 24 Hour Vital Signs Date Time Temp Pulse Resp B/P (MAP) Pulse Ox O2 Delivery O2 Flow Rate FiO2 12/05/18 20:56 88 148/78 12/05/18 20:00 2.0 12/05/18 20:00 Bi-pap 12/05/18 20:00 98.8 88 18 148/78 (101) 99 12/05/18 19:42 92 12/05/18 19:37 91 18 100 Nasal Cannula 2.0 28 12/05/18 19:27 Nasal Cannula 2.0 28 12/05/18 19:27 91 18 99 Nasal Cannula 2.0 28 12/05/18 19:27 99 Nasal Cannula 2.0 28 12/05/18 16:20 140/70 12/05/18 16:00 99.1 91 18 140/70 (93) 99 12/05/18 16:00 89 12/05/18 16:00 Bi-pap 12/05/18 16:00 2.0 12/05/18 13:18 83 16 100 Nasal Cannula 2.0 28 12/05/18 13:13 80 16 100 Nasal Cannula 2.0 28 12/05/18 13:13 28 12/05/18 12:00 2.0 12/05/18 12:00 98.4 88 18 146/73 (97) 99 12/05/18 12:00 82 12/05/18 12:00 Bi-pap 12/05/18 11:10 2.0 12/05/18 09:03 91 138/68 12/05/18 08:00 Bi-pap 12/05/18 08:00 88 12/05/18 08:00 98.2 91 16 138/68 (91) 97 12/05/18 08:00 30 12/05/18 06:59 91 18 100 Bi-pap 30 12/05/18 06:52 90 18 99 Bi-pap 30 12/05/18 06:52 30 12/05/18 06:52 Bi-pap 30 12/05/18 06:52 99 Bi-pap 30 12/05/18 05:14 87 16 98 Facial 30 12/05/18 04:00 28 12/05/18 04:00 98.1 78 20 148/84 (105) 99 12/05/18 04:00 78 12/05/18 04:00 Nasal Cannula 3.0 12/05/18 03:15 78 16 98 Facial 30 12/05/18 01:21 30 12/05/18 01:21 80 15 100 Bi-pap 30 12/05/18 01:11 104 19 74 Bi-pap 30 12/05/18 01:03 79 15 100 Facial 30 12/05/18 00:00 28 12/05/18 00:00 98.2 79 20 145/79 (101) 99 12/05/18 00:00 76 12/05/18 00:00 Nasal Cannula 3.0 Intake and Output 12/04/18 12/05/18 19:00 07:00 Intake Total 2252.500 ml 330 ml Output Total 1500 ml 1250 ml Balance 752.500 ml -920 ml Free Water 300 ml IV Total 1292.500 ml 110 ml Tube Feeding 660 ml 220 ml Output Urine Total 1500 ml 1250 ml General Appearance: no acute distress, cachetic HEENT: normocephalic, atraumatic, other - pale conj Respiratory/Chest: chest wall non-tender, lungs clear, normal breath sounds, no respiratory distress, no accessory muscle use Cardiovascular: normal peripheral pulses, normal rate, regular rhythm Abdomen: normal bowel sounds, soft, non tender, no organomegaly, non distended , other - GT Extremities: no cyanosis, no clubbing, no edema Laboratory Tests 12/05/18 05:00: White Blood Count 5.2, Red Blood Count 2.22L, Hemoglobin 6.9*L, Hematocrit 21.5L , Mean Corpuscular Volume 97, Mean Corpuscular Hemoglobin 31.0, Mean Corpuscular Hemoglobin Concent 32.0, Red Cell Distribution Width 13.9, Platelet Count 45L, Mean Platelet Volume 10.4H, Neutrophils (%) (Auto) , Lymphocytes (%) (Auto) , Monocytes (%) (Auto) , Eosinophils (%) (Auto) , Basophils (%) (Auto) , Differential Total Cells Counted 100, Neutrophils % (Manual) 75, Lymphocytes % ( Manual) 14L, Monocytes % (Manual) 7, Eosinophils % (Manual) 4H, Basophils % ( Manual) 0, Band Neutrophils 0, Platelet Estimate DecreasedL, Platelet Morphology Normal, Macrocytosis 1+, Sodium Level 149H, Potassium Level 2.9L, Chloride Level 117H, Carbon Dioxide Level 28, Anion Gap 4L, Blood Urea Nitrogen 15, Creatinine 0.7, Estimat Glomerular Filtration Rate , Glucose Level 118#H, Uric Acid 2.0L, Calcium Level 8.0L, Phosphorus Level 1.7L, Magnesium Level 1.6L , Total Bilirubin 0.4, Aspartate Amino Transf (AST/SGOT) 21, Alanine Aminotransferase (ALT/SGPT) 17, Alkaline Phosphatase 69, Troponin I 0.141H, Pro- B-Type Natriuretic Peptide 3029H, Total Protein 5.3L, Albumin 1.4L, Globulin 3.9 , Albumin/Globulin Ratio 0.4L 12/05/18 12:00: White Blood Count 4.6L, Red Blood Count 2.10L, Hemoglobin 6.6*L, Hematocrit 20.7L, Mean Corpuscular Volume 98, Mean Corpuscular Hemoglobin 31.2H, Mean Corpuscular Hemoglobin Concent 31.7L, Red Cell Distribution Width 14.1, Platelet Count 39L, Mean Platelet Volume 9.2, Neutrophils (%) (Auto) , Lymphocytes (%) (Auto) , Monocytes (%) (Auto) , Eosinophils (%) (Auto) , Basophils (%) (Auto) , Differential Total Cells Counted 100, Neutrophils % ( Manual) 84H, Lymphocytes % (Manual) 10L, Monocytes % (Manual) 4, Eosinophils % ( Manual) 1, Basophils % (Manual) 0, Band Neutrophils 1, Platelet Estimate DecreasedL, Platelet Morphology Normal, Macrocytosis 1+ Current Medications Medications (Trade) Dose Ordered Sig/Laure Route PRN Reason Start Time Stop Time Status Last Admin Dose Admin Acetaminophen (Tylenol) 650 mg Q4HR PRN NG Mild Pain/Temp > 100.5 12/03/18 17:00 01/01/19 04:14 Albuterol/ Ipratropium (Albuterol/ Ipratropium) 3 ml Q4H PRN HHN Shortness of Breath 12/03/18 14:15 12/06/18 10:14 Albuterol/ Ipratropium (Albuterol/ Ipratropium) 3 ml Q6HRT HHN 12/04/18 13:00 12/09/18 12:59 12/05/18 19:27 Chlorhexidine Gluconate (Georgina-Hex 2%) 1 applic DAILY@2000 TOPIC 12/03/18 20:00 12/31/18 19:59 12/05/18 20:55 Dextrose (Dextrose 50%) 25 ml Q30M PRN IV Hypoglycemia 12/03/18 13:30 12/31/18 12:29 Dextrose (Dextrose 50%) 50 ml Q30M PRN IV Hypoglycemia 12/03/18 13:30 12/31/18 12:29 Insulin Aspart (NovoLOG) Q6HR SUBQ 12/03/18 18:00 12/31/18 17:59 12/05/18 18:29 Metoprolol Tartrate (Lopressor) 25 mg Q12HR ORAL 12/03/18 17:00 01/02/19 16:59 12/05/18 20:56 Nitroglycerin (Ntg) 1 patch Q24H TDERMAL 12/03/18 16:00 01/01/19 15:59 12/05/18 16:20 Ondansetron HCl (Zofran) 4 mg Q6H PRN IVP Nausea & Vomiting 12/03/18 16:15 12/31/18 10:14 Piperacillin Sod/ Tazobactam Sod 3.375 gm/Dextrose 110 ml @ 27.5 mls/hr EVERY 8 HOURS IVPB 12/03/18 14:00 12/06/18 23:59 12/05/18 20:56 Foreign Parekh MD Dec 05, 2018 22:59
[2018-12-06] VITALS: BP 153/80
[2018-12-06] MEDS: Albuterol/Ipratropium 3ml neb HHN SCH ×4 (00:49→19:55)
[2018-12-06 04:00] VITALS: BP 149/74
[2018-12-06] MEDS: Piperacillin/Tazobactam 3.375 GM in D5W 110 ML IVPB SCH ×3 (06:21→21:08)
[2018-12-06] MEDS: NovoLOG Insulin Flexpen SUBQ SCH ×4 (06:23→23:10)
[2018-12-06 07:12] LABS: ANION GAP 6 mmol/L (5-15); BLOOD UREA NITROGEN 18 mg/dL (7-18); CALCIUM 8.2 MG/DL (8.5-10.1); CARBON DIOXIDE 28 MMOL/L (21-32); CHLORIDE 115 MMOL/L (98-107); CREATININE 0.7 MG/DL (0.55-1.30); PHOSPHORUS 3.1 MG/DL (2.5-4.9); SODIUM 149 MMOL/L (136-145)
--- NOTE | 2018-12-06 07:18 | NUR ---
HAND-OFF: Report given to DONIS Brown.Patient stable.
--- NOTE | 2018-12-06 07:20 | NUR ---
NURSE NOTES: Received pt from Kimber Avilez RN. Pt is asleep in no cardiopulmonary distress. Noted on 2L O2 NC. GT noted running Vital AF at 60cc/hr. F/C noted draining urine. Skin alterations noted. R femoral TLC noted. Bed in lowest position. Side rails up x 3. Call light within reach. Will continue to monitor pt.
[2018-12-06 07:23] LABS: HEMATOCRIT 25.8 % (37.0-47.0); MEAN CORPUSCULAR VOLUME 94 FL (80-99); PLATELET COUNT 43 K/UL (150-450); RED BLOOD COUNT 2.75 M/UL (4.20-5.40); WHITE BLOOD COUNT 5.5 K/UL (4.8-10.8)
[2018-12-06 08:00] VITALS: BP 153/71
[2018-12-06 08:09] LABS: HEMOGLOBIN 8.4 G/DL (12.0-16.0)
[2018-12-06] MEDS: Metoprolol 25mg tab ORAL SCH ×2 (09:12→21:07)
--- NOTE | 2018-12-06 10:14 | Infectious Diseases Prog Note ---
Assessment/Plan Assessment/Plan A: 1. Proteus Sepsis 2. urinary tract infection with E.coli & Proteus 3. Atelectasis on chest x-ray, may have underlying pneumonia. 4. Diabetes mellitus type 2. 5. Dementia. 6. Pancytopenia. 7. Pressure ulcer 8. MRSA & VRE colonization RECOMMENDATION: 1. Continue Zosyn. 2. will follow up the cultures. Subjective ROS Limited/Unobtainable: Yes Respiratory: Reports: other - off of BIPAP Allergies: Coded Allergies: No Known Allergies (Unverified , 07/26/18) Objective Vital Signs Last 24 Hour Vital Signs Date Time Temp Pulse Resp B/P (MAP) Pulse Ox O2 Delivery O2 Flow Rate FiO2 12/06/18 09:12 84 153/71 12/06/18 08:00 99.9 84 14 153/71 (98) 99 12/06/18 07:42 81 16 100 Nasal Cannula 2.0 28 12/06/18 07:37 81 16 98 Nasal Cannula 2.0 28 12/06/18 07:37 Nasal Cannula 2.0 28 12/06/18 07:37 98 Nasal Cannula 2.0 28 12/06/18 05:43 85 16 98 12/06/18 04:00 30 12/06/18 04:00 Bi-pap 12/06/18 04:00 99.3 78 19 149/74 (99) 100 12/06/18 03:37 84 12/06/18 02:52 84 16 98 Facial 30 12/06/18 00:59 83 16 99 Bi-pap 30 12/06/18 00:49 84 16 98 Bi-pap 30 12/06/18 00:00 Bi-pap 12/06/18 00:00 2.0 12/06/18 00:00 99.0 80 18 153/80 (104) 99 12/05/18 23:28 79 12/05/18 22:49 84 16 98 Facial 30 12/05/18 20:56 88 148/78 12/05/18 20:00 2.0 12/05/18 20:00 Bi-pap 12/05/18 20:00 98.8 88 18 148/78 (101) 99 12/05/18 19:42 92 12/05/18 19:37 91 18 100 Nasal Cannula 2.0 28 2/25/19 19:27 Nasal Cannula 2.0 28 12/05/18 19:27 91 18 99 Nasal Cannula 2.0 28 12/05/18 19:27 99 Nasal Cannula 2.0 28 12/05/18 16:20 140/70 12/05/18 16:00 99.1 91 18 140/70 (93) 99 12/05/18 16:00 89 12/05/18 16:00 Bi-pap 12/05/18 16:00 2.0 12/05/18 13:18 83 16 100 Nasal Cannula 2.0 28 12/05/18 13:13 80 16 100 Nasal Cannula 2.0 28 12/05/18 13:13 28 12/05/18 12:00 2.0 12/05/18 12:00 98.4 88 18 146/73 (97) 99 12/05/18 12:00 82 12/05/18 12:00 Bi-pap 12/05/18 11:10 2.0 Height (Feet): 5 Height (Inches): 3.00 Weight (Pounds): 122 General Appearance: no acute distress HEENT: mucous membranes moist Respiratory/Chest: lungs clear Cardiovascular: normal rate Abdomen: soft, non tender, other - GT feeding Extremities: other - generalized edema Neurologic/Psychiatric: aphasia Laboratory Tests Test 12/05/18 12:00 12/06/18 05:15 White Blood Count 4.6 K/UL (4.8-10.8) L 5.5 K/UL (4.8-10.8) Red Blood Count 2.10 M/UL (4.20-5.40) L 2.75 M/UL (4.20-5.40) L Hemoglobin 6.6 G/DL (12.0-16.0) *L 8.4 G/DL (12.0-16.0) L Hematocrit 20.7 % (37.0-47.0) L 25.8 % (37.0-47.0) L Mean Corpuscular Volume 98 FL (80-99) 94 FL (80-99) Mean Corpuscular Hemoglobin 31.2 PG (27.0-31.0) H 30.5 PG (27.0-31.0) Mean Corpuscular Hemoglobin Concent 31.7 G/DL (32.0-36.0) L 32.5 G/DL (32.0-36.0) Red Cell Distribution Width 14.1 % (11.6-14.8) 15.0 % (11.6-14.8) H Platelet Count 39 K/UL (150-450) L 43 K/UL (150-450) L Mean Platelet Volume 9.2 FL (6.5-10.1) 8.0 FL (6.5-10.1) Neutrophils (%) (Auto) % (45.0-75.0) % (45.0-75.0) Lymphocytes (%) (Auto) % (20.0-45.0) % (20.0-45.0) Monocytes (%) (Auto) % (1.0-10.0) % (1.0-10.0) Eosinophils (%) (Auto) % (0.0-3.0) % (0.0-3.0) Basophils (%) (Auto) % (0.0-2.0) % (0.0-2.0) Differential Total Cells Counted 100 Neutrophils % (Manual) 84 % (45-75) H Pending Lymphocytes % (Manual) 10 % (20-45) L Pending Monocytes % (Manual) 4 % (1-10) Eosinophils % (Manual) 1 % (0-3) Basophils % (Manual) 0 % (0-2) Band Neutrophils 1 % (0-8) Platelet Estimate Decreased L Pending Platelet Morphology Normal Pending Macrocytosis 1+ Sodium Level 149 MMOL/L (136-145) H Potassium Level 3.0 MMOL/L (3.5-5.1) L Chloride Level 115 MMOL/L (98-107) H Carbon Dioxide Level 28 MMOL/L (21-32) Anion Gap 6 mmol/L (5-15) Blood Urea Nitrogen 18 mg/dL (7-18) Creatinine 0.7 MG/DL (0.55-1.30) Estimat Glomerular Filtration Rate mL/min (>60) Glucose Level 194 MG/DL (74-106) H Calcium Level 8.2 MG/DL (8.5-10.1) L Phosphorus Level 3.1 MG/DL (2.5-4.9) Magnesium Level 2.2 MG/DL (1.8-2.4) Current Medications Medications (Trade) Dose Ordered Sig/Laure Route PRN Reason Start Time Stop Time Status Last Admin Dose Admin Acetaminophen (Tylenol) 650 mg Q4HR PRN NG Mild Pain/Temp > 100.5 12/03/18 17:00 01/01/19 04:14 Albuterol/ Ipratropium (Albuterol/ Ipratropium) 3 ml Q4H PRN HHN Shortness of Breath 12/03/18 14:15 12/06/18 10:14 Albuterol/ Ipratropium (Albuterol/ Ipratropium) 3 ml Q6HRT HHN 12/04/18 13:00 12/09/18 12:59 12/06/18 07:38 Chlorhexidine Gluconate (Georgina-Hex 2%) 1 applic DAILY@2000 TOPIC 12/03/18 20:00 12/31/18 19:59 12/05/18 20:55 Dextrose (Dextrose 50%) 25 ml Q30M PRN IV Hypoglycemia 12/03/18 13:30 12/31/18 12:29 Dextrose (Dextrose 50%) 50 ml Q30M PRN IV Hypoglycemia 12/03/18 13:30 12/31/18 12:29 Insulin Aspart (NovoLOG) Q6HR SUBQ 12/03/18 18:00 12/31/18 17:59 12/06/18 06:23 Metoprolol Tartrate (Lopressor) 25 mg Q12HR ORAL 12/03/18 17:00 01/02/19 16:59 12/06/18 09:12 Nitroglycerin (Ntg) 1 patch Q24H TDERMAL 12/03/18 16:00 01/01/19 15:59 12/05/18 16:20 Ondansetron HCl (Zofran) 4 mg Q6H PRN IVP Nausea & Vomiting 12/03/18 16:15 12/31/18 10:14 Piperacillin Sod/ Tazobactam Sod 3.375 gm/Dextrose 110 ml @ 27.5 mls/hr EVERY 8 HOURS IVPB 12/03/18 14:00 12/06/18 23:59 12/06/18 06:21 Shimon Card MD Dec 06, 2018 10:14
--- NOTE | 2018-12-06 11:11 | GI Progress Note ---
Assessment/Plan Problems: (1) Feeding by G-tube ICD Codes: Z93.1 - Gastrostomy status SNOMED: 960171311, 173552544, 535303657 (2) Anemia ICD Codes: D64.9 - Anemia, unspecified SNOMED: 092499606 (3) Malnutrition ICD Codes: E46 - Unspecified protein-calorie malnutrition SNOMED: 30794649 (4) Dehydration ICD Codes: E86.0 - Dehydration SNOMED: 01344166 (5) Dementia with behavioral disturbance ICD Codes: F03.91 - Unspecified dementia with behavioral disturbance SNOMED: 1203632050496 Status: progressing Status Narrative Discussed with Dr. Argueta. Assessment/Plan GTF OFF while on of BIPAP, now on NC GTFs per RD GT site care fu labs abx per ID supportive care fu The patient was seen and examined at bedside and all new and available data was reviewed in the patients chart. I agree with the above findings, impression and plan. (Patient seen earlier today. Signature stamp does not reflect patient encounter time.). - Edwardo Argueta MD Subjective Subjective limited Objective Last 24 Hour Vital Signs Date Time Temp Pulse Resp B/P (MAP) Pulse Ox O2 Delivery O2 Flow Rate FiO2 12/06/18 09:12 84 153/71 12/06/18 08:00 2.0 12/06/18 08:00 99.9 84 14 153/71 (98) 99 12/06/18 08:00 Nasal Cannula 2.0 12/06/18 07:42 81 16 100 Nasal Cannula 2.0 28 12/06/18 07:37 81 16 98 Nasal Cannula 2.0 28 12/06/18 07:37 Nasal Cannula 2.0 28 12/06/18 07:37 98 Nasal Cannula 2.0 28 12/06/18 05:43 85 16 98 12/06/18 04:00 30 12/06/18 04:00 Bi-pap 12/06/18 04:00 99.3 78 19 149/74 (99) 100 12/06/18 03:37 84 12/06/18 02:52 84 16 98 Facial 30 12/06/18 00:59 83 16 99 Bi-pap 30 12/06/18 00:49 84 16 98 Bi-pap 30 12/06/18 00:00 Bi-pap 12/06/18 00:00 2.0 12/06/18 00:00 99.0 80 18 153/80 (104) 99 12/05/18 23:28 79 12/05/18 22:49 84 16 98 Facial 30 12/05/18 20:56 88 148/78 12/05/18 20:00 2.0 12/05/18 20:00 Bi-pap 12/05/18 20:00 98.8 88 18 148/78 (101) 99 12/05/18 19:42 92 12/05/18 19:37 91 18 100 Nasal Cannula 2.0 28 12/05/18 19:27 Nasal Cannula 2.0 28 12/05/18 19:27 91 18 99 Nasal Cannula 2.0 28 12/05/18 19:27 99 Nasal Cannula 2.0 28 12/05/18 16:20 140/70 12/05/18 16:00 99.1 91 18 140/70 (93) 99 12/05/18 16:00 89 12/05/18 16:00 Bi-pap 12/05/18 16:00 2.0 12/05/18 13:18 83 16 100 Nasal Cannula 2.0 28 12/05/18 13:13 80 16 100 Nasal Cannula 2.0 28 12/05/18 13:13 28 12/05/18 12:00 2.0 12/05/18 12:00 98.4 88 18 146/73 (97) 99 12/05/18 12:00 82 12/05/18 12:00 Bi-pap Intake and Output 12/05/18 12/06/18 19:00 07:00 Intake Total 712.5 ml 1070.0 ml Output Total 1600 ml Balance 712.5 ml -530.0 ml Free Water 300 ml IV Total 652.5 ml 110.0 ml Tube Feeding 60 ml 660 ml Output Urine Total 1600 ml # Bowel Movements 2 Laboratory Tests Test 12/05/18 12:00 12/06/18 05:15 White Blood Count 4.6 K/UL (4.8-10.8) L 5.5 K/UL (4.8-10.8) Red Blood Count 2.10 M/UL (4.20-5.40) L 2.75 M/UL (4.20-5.40) L Hemoglobin 6.6 G/DL (12.0-16.0) *L 8.4 G/DL (12.0-16.0) L Hematocrit 20.7 % (37.0-47.0) L 25.8 % (37.0-47.0) L Mean Corpuscular Volume 98 FL (80-99) 94 FL (80-99) Mean Corpuscular Hemoglobin 31.2 PG (27.0-31.0) H 30.5 PG (27.0-31.0) Mean Corpuscular Hemoglobin Concent 31.7 G/DL (32.0-36.0) L 32.5 G/DL (32.0-36.0) Red Cell Distribution Width 14.1 % (11.6-14.8) 15.0 % (11.6-14.8) H Platelet Count 39 K/UL (150-450) L 43 K/UL (150-450) L Mean Platelet Volume 9.2 FL (6.5-10.1) 8.0 FL (6.5-10.1) Neutrophils (%) (Auto) % (45.0-75.0) % (45.0-75.0) Lymphocytes (%) (Auto) % (20.0-45.0) % (20.0-45.0) Monocytes (%) (Auto) % (1.0-10.0) % (1.0-10.0) Eosinophils (%) (Auto) % (0.0-3.0) % (0.0-3.0) Basophils (%) (Auto) % (0.0-2.0) % (0.0-2.0) Differential Total Cells Counted 100 100 Neutrophils % (Manual) 84 % (45-75) H 74 % (45-75) Lymphocytes % (Manual) 10 % (20-45) L 15 % (20-45) L Monocytes % (Manual) 4 % (1-10) 4 % (1-10) Eosinophils % (Manual) 1 % (0-3) 3 % (0-3) Basophils % (Manual) 0 % (0-2) 0 % (0-2) Band Neutrophils 1 % (0-8) 4 % (0-8) Platelet Estimate Decreased L Decreased L Platelet Morphology Normal Normal Macrocytosis 1+ Anisocytosis 1+ Sodium Level 149 MMOL/L (136-145) H Potassium Level 3.0 MMOL/L (3.5-5.1) L Chloride Level 115 MMOL/L (98-107) H Carbon Dioxide Level 28 MMOL/L (21-32) Anion Gap 6 mmol/L (5-15) Blood Urea Nitrogen 18 mg/dL (7-18) Creatinine 0.7 MG/DL (0.55-1.30) Estimat Glomerular Filtration Rate mL/min (>60) Glucose Level 194 MG/DL (74-106) H Calcium Level 8.2 MG/DL (8.5-10.1) L Phosphorus Level 3.1 MG/DL (2.5-4.9) Magnesium Level 2.2 MG/DL (1.8-2.4) Height (Feet): 5 Height (Inches): 3.00 Weight (Pounds): 122 General Appearance: WD/WN, no apparent distress, alert Cardiovascular: normal rate Respiratory/Chest: normal breath sounds, no respiratory distress Abdominal Exam: normal bowel sounds, non tender, soft, GT site - c/d/i Extremities: non-tender Aidee Powell NP Dec 06, 2018 11:11
[2018-12-06 12:00] VITALS: BP 153/73
--- NOTE | 2018-12-06 12:38 | NUR ---
*-* INSURANCE *-* ALL CLINICALS, REVIEWS AND INTERQUAL HAVE BEEN FAXED TO: [facility] S/W ALEXUS @ [phone]..NO RESIDENTIAL SUBCONTRACTOR ASSIGNED AT THIS TIME... PLEASE FAX THE [facility]/CLINICAL P- [phone] F- [phone]
--- NOTE | 2018-12-06 13:30 | NUR ---
Cleaned and repositioned pt. Started new feeding order. Glucerna 1.2 at 25cc/hr. No residuals noted. Will continue to monitor residuals and titrate until goal of 55cc/hr is reached. Pt is asleep with no cardiopulmonary distress noted. Bed is in lowest position. Side rails up x 2. Call light within reach.
--- NOTE | 2018-12-06 13:39 | NUR ---
RD ASSESSMENT & RECOMMENDATIONS SEE CARE ACTIVITY FOR COMPLETE ASSESSMENT DAILY ESTIMATED NEEDS: Needs based on Wound, underweight, Pumonary / 44.5kg 30-37 kcals/kg 1335-1646kcal total kcals 1.25-1.5 g protein/kg 56-67 g total protein 25-30 mL/kg 2136-7540 total fluid mLs NUTRITION DIAGNOSIS: 1) Increased kcal and protein needs R/T underweight status and wound healing as evidenced by pt w/ generalized moderate wasting, @ 89% IBW w/ underweight BMI per guidelines, admitted w/ partial thickness pressure injury @ sacrum. 2) Swallowing difficulty R/T dysphagia as evidenced by pt is PEG dep. CURRENT TF:Vital AF 1.2 @ 60ml/hr x 24 hrs ENTERAL NUTRITION RECOMMENDATIONS: Glucerna 1.2 @55ml/hr x24 hrs to provide 1320ml, 1584 kcal, 79g prot, 1063ml free fluid * As medically appropriate, resume TF * Initiate Glucerna 1.2 @ 25ml/ hr x 6 hrs, advance 10ml q 4-6 hrs as tolerated to goal rate. * Flush per MD/ HOB over 30 degrees ADDITIONAL RECOMMENDATIONS: * Per SNF: ht=62", wt=98lbs on 11/16/18 * Re-calibrate bedscale wt, rec weekly wt monitoring * Wound healing: Add Timbo 1pkt BID * Check lytes daily, replete as needed (low K,) * Consider adding long acting insulin- POC glu (136-306) . .
[2018-12-06] MEDS: Nitroglycerin Patch 0.4mg TDERMAL SCH (15:31)
[2018-12-06 16:00] VITALS: BP 154/77
--- NOTE | 2018-12-06 16:36 | Nephrology Progress Note ---
Assessment/Plan Problem List: (1) Sepsis Assessment: low bp (2) Oliguria Assessment: due low bp (3) Anemia (4) Hypokalemia (5) Diabetic nephropathy (6) Elevated troponin I level Assessment Oliguria due to low BP Sepsis and low BP Elevated troponin UTI (urinary tract infection) Pneumonia Anemia worsening DM+ Proteinuria: Nephropathy s/p IVC Filter Acute encephalopathy HypoAlbuminemia Plan DC IV fluids K Phos , KCl , MgSo4 IV ordered Fluid challenge antibiotics avoid nephrotoxics anemia mac per orders Subjective ROS Limited/Unobtainable: No Constitutional: Reports: malaise, weakness Objective Objective Last 24 Hour Vital Signs Date Time Temp Pulse Resp B/P (MAP) Pulse Ox O2 Delivery O2 Flow Rate FiO2 12/06/18 16:00 98.7 78 15 154/77 (102) 99 12/06/18 15:31 153/73 12/06/18 13:05 80 16 99 Nasal Cannula 2.0 28 12/06/18 12:56 70 16 99 Nasal Cannula 2.0 28 12/06/18 12:00 99.3 76 15 153/73 (99) 98 12/06/18 12:00 Nasal Cannula 2.0 12/06/18 12:00 76 12/06/18 12:00 2.0 12/06/18 09:12 84 153/71 12/06/18 08:00 81 12/06/18 08:00 2.0 12/06/18 08:00 99.9 84 14 153/71 (98) 99 12/06/18 08:00 Nasal Cannula 2.0 12/06/18 07:42 81 16 100 Nasal Cannula 2.0 28 12/06/18 07:37 81 16 98 Nasal Cannula 2.0 28 12/06/18 07:37 Nasal Cannula 2.0 28 12/06/18 07:37 98 Nasal Cannula 2.0 28 12/06/18 05:43 85 16 98 12/06/18 04:00 30 12/06/18 04:00 Bi-pap 12/06/18 04:00 99.3 78 19 149/74 (99) 100 12/06/18 03:37 84 12/06/18 02:52 84 16 98 Facial 30 12/06/18 00:59 83 16 99 Bi-pap 30 12/06/18 00:49 84 16 98 Bi-pap 30 12/06/18 00:00 Bi-pap 12/06/18 00:00 2.0 12/06/18 00:00 99.0 80 18 153/80 (104) 99 12/05/18 23:28 79 12/05/18 22:49 84 16 98 Facial 30 12/05/18 20:56 88 148/78 12/05/18 20:00 2.0 12/05/18 20:00 Bi-pap 12/05/18 20:00 98.8 88 18 148/78 (101) 99 12/05/18 19:42 92 12/05/18 19:37 91 18 100 Nasal Cannula 2.0 28 12/05/18 19:27 Nasal Cannula 2.0 28 12/05/18 19:27 91 18 99 Nasal Cannula 2.0 28 12/05/18 19:27 99 Nasal Cannula 2.0 28 Intake and Output 12/05/18 12/06/18 19:00 07:00 Intake Total 712.5 ml 1130.0 ml Output Total 1600 ml Balance 712.5 ml -470.0 ml Free Water 300 ml IV Total 652.5 ml 110.0 ml Tube Feeding 60 ml 720 ml Output Urine Total 1600 ml # Bowel Movements 2 Laboratory Tests 12/06/18 05:15: White Blood Count 5.5, Red Blood Count 2.75L, Hemoglobin 8.4L, Hematocrit 25.8L , Mean Corpuscular Volume 94, Mean Corpuscular Hemoglobin 30.5, Mean Corpuscular Hemoglobin Concent 32.5, Red Cell Distribution Width 15.0H, Platelet Count 43L, Mean Platelet Volume 8.0, Neutrophils (%) (Auto) , Lymphocytes (%) (Auto) , Monocytes (%) (Auto) , Eosinophils (%) (Auto) , Basophils (%) (Auto) , Differential Total Cells Counted 100, Neutrophils % ( Manual) 74, Lymphocytes % (Manual) 15L, Monocytes % (Manual) 4, Eosinophils % ( Manual) 3, Basophils % (Manual) 0, Band Neutrophils 4, Platelet Estimate DecreasedL, Platelet Morphology Normal, Anisocytosis 1+, Sodium Level 149H, Potassium Level 3.0L, Chloride Level 115H, Carbon Dioxide Level 28, Anion Gap 6 , Blood Urea Nitrogen 18, Creatinine 0.7, Estimat Glomerular Filtration Rate , Glucose Level 194H, Calcium Level 8.2L, Phosphorus Level 3.1, Magnesium Level 2.2 Height (Feet): 5 Height (Inches): 3.00 Weight (Pounds): 122 General Appearance: no apparent distress Cardiovascular: tachycardia Respiratory/Chest: decreased breath sounds Abdomen: soft Parvez Bergman MD Dec 06, 2018 16:36
--- NOTE | 2018-12-06 16:53 | General Progress Note ---
Assessment/Plan Problem List: (1) UTI (urinary tract infection) ICD Codes: N39.0 - Urinary tract infection, site not specified SNOMED: 68458498 Qualifiers: Qualified Codes: N39.0 - Urinary tract infection, site not specified (2) Pneumonia ICD Codes: J18.9 - Pneumonia, unspecified organism SNOMED: 947675530, 424285732, 940339785 Qualifiers: Qualified Codes: J18.1 - Lobar pneumonia, unspecified organism (3) Elevated troponin ICD Codes: R74.8 - Abnormal levels of other serum enzymes SNOMED: 568560776, 669150118, 234145462 (4) Dehydration ICD Codes: E86.0 - Dehydration SNOMED: 47482857 (5) Hypokalemia ICD Codes: E87.6 - Hypokalemia SNOMED: 02558428 (6) Malnutrition ICD Codes: E46 - Unspecified protein-calorie malnutrition SNOMED: 02973822 (7) Dementia with behavioral disturbance ICD Codes: F03.91 - Unspecified dementia with behavioral disturbance SNOMED: 0184165976369 (8) Encephalopathy due to metabolic factor or toxin SNOMED: 346384606 (9) Anemia ICD Codes: D64.9 - Anemia, unspecified SNOMED: 430339635 (10) Sepsis ICD Codes: A41.9 - Sepsis, unspecified organism SNOMED: 81421251 Qualifiers: Qualified Codes: A41.9 - Sepsis, unspecified organism (11) Diabetic nephropathy 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 SNOMED: 831137676 Status: progressing Assessment/Plan lyte abnormality afebrile reviewed chart and meds sepsis encephalopathy Subjective ROS Limited/Unobtainable: Yes Allergies: Coded Allergies: No Known Allergies (Unverified , 07/26/18) Objective Last 24 Hour Vital Signs Date Time Temp Pulse Resp B/P (MAP) Pulse Ox O2 Delivery O2 Flow Rate FiO2 12/06/18 16:00 98.7 78 15 154/77 (102) 99 12/06/18 15:31 153/73 12/06/18 13:05 80 16 99 Nasal Cannula 2.0 28 12/06/18 12:56 70 16 99 Nasal Cannula 2.0 28 12/06/18 12:00 99.3 76 15 153/73 (99) 98 12/06/18 12:00 Nasal Cannula 2.0 12/06/18 12:00 76 12/06/18 12:00 2.0 12/06/18 09:12 84 153/71 12/06/18 08:00 81 12/06/18 08:00 2.0 12/06/18 08:00 99.9 84 14 153/71 (98) 99 12/06/18 08:00 Nasal Cannula 2.0 12/06/18 07:42 81 16 100 Nasal Cannula 2.0 28 12/06/18 07:37 81 16 98 Nasal Cannula 2.0 28 12/06/18 07:37 Nasal Cannula 2.0 28 12/06/18 07:37 98 Nasal Cannula 2.0 28 12/06/18 05:43 85 16 98 12/06/18 04:00 30 12/06/18 04:00 Bi-pap 12/06/18 04:00 99.3 78 19 149/74 (99) 100 12/06/18 03:37 84 12/06/18 02:52 84 16 98 Facial 30 12/06/18 00:59 83 16 99 Bi-pap 30 12/06/18 00:49 84 16 98 Bi-pap 30 12/06/18 00:00 Bi-pap 12/06/18 00:00 2.0 12/06/18 00:00 99.0 80 18 153/80 (104) 99 12/05/18 23:28 79 12/05/18 22:49 84 16 98 Facial 30 12/05/18 20:56 88 148/78 12/05/18 20:00 2.0 12/05/18 20:00 Bi-pap 12/05/18 20:00 98.8 88 18 148/78 (101) 99 12/05/18 19:42 92 12/05/18 19:37 91 18 100 Nasal Cannula 2.0 28 12/05/18 19:27 Nasal Cannula 2.0 28 12/05/18 19:27 91 18 99 Nasal Cannula 2.0 28 12/05/18 19:27 99 Nasal Cannula 2.0 28 Intake and Output 12/05/18 12/06/18 18:59 06:59 Intake Total 762.5 ml 1130.0 ml Output Total 1600 ml Balance 762.5 ml -470.0 ml Free Water 300 ml IV Total 762.5 ml 110.0 ml Tube Feeding 720 ml Output Urine Total 1600 ml # Bowel Movements 2 Laboratory Tests 12/06/18 05:15: White Blood Count 5.5, Red Blood Count 2.75L, Hemoglobin 8.4L, Hematocrit 25.8L , Mean Corpuscular Volume 94, Mean Corpuscular Hemoglobin 30.5, Mean Corpuscular Hemoglobin Concent 32.5, Red Cell Distribution Width 15.0H, Platelet Count 43L, Mean Platelet Volume 8.0, Neutrophils (%) (Auto) , Lymphocytes (%) (Auto) , Monocytes (%) (Auto) , Eosinophils (%) (Auto) , Basophils (%) (Auto) , Differential Total Cells Counted 100, Neutrophils % ( Manual) 74, Lymphocytes % (Manual) 15L, Monocytes % (Manual) 4, Eosinophils % ( Manual) 3, Basophils % (Manual) 0, Band Neutrophils 4, Platelet Estimate DecreasedL, Platelet Morphology Normal, Anisocytosis 1+, Sodium Level 149H, Potassium Level 3.0L, Chloride Level 115H, Carbon Dioxide Level 28, Anion Gap 6 , Blood Urea Nitrogen 18, Creatinine 0.7, Estimat Glomerular Filtration Rate , Glucose Level 194H, Calcium Level 8.2L, Phosphorus Level 3.1, Magnesium Level 2.2 Height (Feet): 5 Height (Inches): 3.00 Weight (Pounds): 122 Cardiovascular: normal rate Respiratory/Chest: lungs clear Abdomen: soft Yi Asencio MD Dec 06, 2018 16:53
--- NOTE | 2018-12-06 17:27 | NUR ---
VAMP STRAP IRONERPIPEFITTER HELPER SI; SEPSIS T. 98.7 HR 78 RR 15 B/P 154/77 2L NC NA 149 K 3.0 IS: ZOSYN IV ALB HHN STEP DOWN STATUS
--- NOTE | 2018-12-06 19:03 | NUR ---
HAND-OFF: Report given to Abril Tilley RN. Pt is in stable condition.
--- NOTE | 2018-12-06 19:05 | NUR ---
NURSE NOTES: Received patient from DONIS Dey and DONIS Brown. Patient is asleep. On 2L nasal cannula, showing no signs and symptoms of distress and/or pain. On GTube feeding of Glucerna 1.2 @ 25ml/hr, goal is 55ml/hour. Will check residual and increased feeding as tolerated. Will continue plan of care.
--- NOTE | 2018-12-06 19:41 | Pulmonology Progress Note ---
Assessment/Plan Problems: (1) UTI (urinary tract infection) (2) Pneumonia (3) Sepsis (4) DVT (deep venous thrombosis) (5) Dementia with behavioral disturbance (6) Malnutrition (7) Anemia (8) Thrombocytopenia (9) Feeding by G-tube (10) Elevated troponin I level (11) S/P IVC filter Assessment/Plan Optimize pulmonary hygiene/mobilize as tolerated Titrate down FiO2 to keep SaO2 > 90% RTC and PRN HHN's Abx per ID, F/U Cx's TF's as tolerated Monitor volumes and renal function Monitor CBC, transfuse as needed F/U change consultant recs DVT Px: IVCF FC, continue to discuss GOC Subjective Allergies: Coded Allergies: No Known Allergies (Unverified , 07/26/18) Subjective AFVSS on 2L leta TF"s no respiratory distress no cough no SOB no wheezing no F.C Objective Last 24 Hour Vital Signs Date Time Temp Pulse Resp B/P (MAP) Pulse Ox O2 Delivery O2 Flow Rate FiO2 12/06/18 16:00 98.7 78 15 154/77 (102) 99 12/06/18 16:00 Nasal Cannula 2.0 12/06/18 16:00 2.0 12/06/18 16:00 73 12/06/18 15:31 153/73 12/06/18 13:05 80 16 99 Nasal Cannula 2.0 28 12/06/18 12:56 70 16 99 Nasal Cannula 2.0 28 12/06/18 12:00 99.3 76 15 153/73 (99) 98 12/06/18 12:00 Nasal Cannula 2.0 12/06/18 12:00 76 12/06/18 12:00 2.0 12/06/18 09:12 84 153/71 12/06/18 08:00 81 12/06/18 08:00 2.0 12/06/18 08:00 99.9 84 14 153/71 (98) 99 12/06/18 08:00 Nasal Cannula 2.0 12/06/18 07:42 81 16 100 Nasal Cannula 2.0 28 12/06/18 07:37 81 16 98 Nasal Cannula 2.0 28 12/06/18 07:37 Nasal Cannula 2.0 28 12/06/18 07:37 98 Nasal Cannula 2.0 28 12/06/18 05:43 85 16 98 2/26/19 04:00 30 12/06/18 04:00 Bi-pap 12/06/18 04:00 99.3 78 19 149/74 (99) 100 12/06/18 03:37 84 12/06/18 02:52 84 16 98 Facial 30 12/06/18 00:59 83 16 99 Bi-pap 30 12/06/18 00:49 84 16 98 Bi-pap 30 12/06/18 00:00 Bi-pap 12/06/18 00:00 2.0 12/06/18 00:00 99.0 80 18 153/80 (104) 99 12/05/18 23:28 79 12/05/18 22:49 84 16 98 Facial 30 12/05/18 20:56 88 148/78 12/05/18 20:00 2.0 12/05/18 20:00 Bi-pap 12/05/18 20:00 98.8 88 18 148/78 (101) 99 12/05/18 19:42 92 Intake and Output 12/05/18 12/06/18 18:59 06:59 Intake Total 762.5 ml 1130.0 ml Output Total 1600 ml Balance 762.5 ml -470.0 ml Free Water 300 ml IV Total 762.5 ml 110.0 ml Tube Feeding 720 ml Output Urine Total 1600 ml # Bowel Movements 2 General Appearance: no acute distress, cachetic HEENT: normocephalic, atraumatic, anicteric, mucous membranes moist Respiratory/Chest: chest wall non-tender, lungs clear, normal breath sounds, no respiratory distress, no accessory muscle use Cardiovascular: normal peripheral pulses, normal rate, regular rhythm Abdomen: normal bowel sounds, soft, non tender, no organomegaly, non distended , no mass, other - GT Extremities: no cyanosis, no clubbing, no edema Laboratory Tests 12/06/18 05:15: White Blood Count 5.5, Red Blood Count 2.75L, Hemoglobin 8.4L, Hematocrit 25.8L , Mean Corpuscular Volume 94, Mean Corpuscular Hemoglobin 30.5, Mean Corpuscular Hemoglobin Concent 32.5, Red Cell Distribution Width 15.0H, Platelet Count 43L, Mean Platelet Volume 8.0, Neutrophils (%) (Auto) , Lymphocytes (%) (Auto) , Monocytes (%) (Auto) , Eosinophils (%) (Auto) , Basophils (%) (Auto) , Differential Total Cells Counted 100, Neutrophils % ( Manual) 74, Lymphocytes % (Manual) 15L, Monocytes % (Manual) 4, Eosinophils % ( Manual) 3, Basophils % (Manual) 0, Band Neutrophils 4, Platelet Estimate DecreasedL, Platelet Morphology Normal, Anisocytosis 1+, Sodium Level 149H, Potassium Level 3.0L, Chloride Level 115H, Carbon Dioxide Level 28, Anion Gap 6 , Blood Urea Nitrogen 18, Creatinine 0.7, Estimat Glomerular Filtration Rate , Glucose Level 194H, Calcium Level 8.2L, Phosphorus Level 3.1, Magnesium Level 2.2 Current Medications Medications (Trade) Dose Ordered Sig/Laure Route PRN Reason Start Time Stop Time Status Last Admin Dose Admin Acetaminophen (Tylenol) 650 mg Q4HR PRN NG Mild Pain/Temp > 100.5 12/03/18 17:00 01/01/19 04:14 Albuterol/ Ipratropium (Albuterol/ Ipratropium) 3 ml Q6HRT HHN 12/04/18 13:00 12/09/18 12:59 12/06/18 12:56 Chlorhexidine Gluconate (Georgina-Hex 2%) 1 applic DAILY@2000 TOPIC 12/03/18 20:00 12/31/18 19:59 12/05/18 20:55 Dextrose (Dextrose 50%) 25 ml Q30M PRN IV Hypoglycemia 12/03/18 13:30 12/31/18 12:29 Dextrose (Dextrose 50%) 50 ml Q30M PRN IV Hypoglycemia 12/03/18 13:30 12/31/18 12:29 Insulin Aspart (NovoLOG) Q6HR SUBQ 12/03/18 18:00 12/31/18 17:59 12/06/18 17:41 Metoprolol Tartrate (Lopressor) 25 mg Q12HR ORAL 12/03/18 17:00 01/02/19 16:59 12/06/18 09:12 Nitroglycerin (Ntg) 1 patch Q24H TDERMAL 12/03/18 16:00 01/01/19 15:59 12/06/18 15:31 Ondansetron HCl (Zofran) 4 mg Q6H PRN IVP Nausea & Vomiting 12/03/18 16:15 12/31/18 10:14 Piperacillin Sod/ Tazobactam Sod 3.375 gm/Dextrose 110 ml @ 27.5 mls/hr EVERY 8 HOURS IVPB 12/06/18 14:00 12/09/18 23:59 12/06/18 13:23 Foreign Parekh MD Dec 06, 2018 19:41
[2018-12-06 20:00] VITALS: BP 158/75
--- NOTE | 2018-12-06 20:48 | General Progress Note ---
Assessment/Plan Assessment/Plan Assessment/Recs: # DVT of the left leg s/p IVC filter in 07/2018-- superficial femoral vein which is a deep vein, new onset, has not had these symptoms before. Lower hgb and plts --> given decreased h/h, low thrombocytopenia, do not recommend anticoag --> appreciate Dr. Parekh and Mariam recs from prior admission --> smear reviewed # Pancytopenia, likely related to septicemia, appears new baseline 50-70k, several causes possible including viral, medication or intrabone marrow related. --> Cont to monitor plt count for improvement --> US abd: Mild left hydronephrosis. Possible left renal calyceal calculi. Negative for gallstones or dilated ducts Debris noted within the bladder --> Hep panel and HIV are both negative --> given extremely poor condition do not recommend a bone marrow biopsy, have discussed with family 08/01 with --> will rediscuss once sepsis resolves --> transfuse if plt <20k # Anemia of chronic disease. Multifactorial. Since admission Hgb has consistently remained between 8-9. --> Cont to monitor for stability --> Hgb goal above 7. Transfuse prn. --> IV iron completed prior admission and feritin is elevated # Dehydration. IVF has been administered --> improved # DM OOC --> A1C goal <7 --> Cont on insulin # Bacteremia/prior UTI. --> ID is following. Appreciate recs. --> Pt on IV abx. --> Cultures surveillance as per id # PEG placement 08/04. Greatly appreciate consultation! Subjective Constitutional: Denies: no symptoms, chills, diaphoresis, fever, malaise, weakness, other HEENT: Denies: no symptoms, eye pain, blurred vision, tearing, double vision, ear pain, ear discharge, nose pain, nose congestion, throat pain, throat swelling, mouth pain, mouth swelling, other Cardiovascular: Denies: no symptoms, chest pain, edema, irregular heart rate, lightheadedness, palpitations, syncope, other Respiratory: Denies: no symptoms, cough, orthopnea, shortness of breath, SOB with excertion, SOB at rest, sputum, stridor, wheezing, other Gastrointestinal/Abdominal: Denies: no symptoms, abdomen distended, abdominal pain, black stools, tarry stools, blood in stool, constipated, diarrhea, difficulty swallowing, nausea, poor appetite, poor fluid intake, rectal bleeding , vomiting, other Genitourinary: Denies: no symptoms, burning, discharge, frequency, flank pain, hematuria, incontinence, pain, urgency, other Neurologic/Psychiatric: Denies: no symptoms, anxiety, depressed, emotional problems, headache, numbness, paresthesia, pre-existing deficit, seizure, tingling, tremors, weakness, other Endocrine: Denies: no symptoms, excessive sweating, flushing, intolerance to cold, intolerance to heat, increased hunger, increased thirst, increased urine, unexplained weight gain, unexplained weight loss, other Hematologic/Lymphatic: Denies: no symptoms, anemia, easy bleeding, easy bruising, other Allergies: Coded Allergies: No Known Allergies (Unverified , 07/26/18) Subjective 12/02: seen by bedside, hgb 7.6, will transfuse as needed, plt trending down, GTF on hold, patient on BIPAP, has been tachycardic over night, abx per ID 12/04: Seen by bedside, out of ICU, tolerating TF, off BIPAP, plt trending down to 45, hgb 7.6. 12/05: Pt is resting in bed, hgb 6.6 and plt 39, received transfusion, no events. 12/06: seen by bedside,awake, comfortable, plt 43 Objective Last 24 Hour Vital Signs Date Time Temp Pulse Resp B/P (MAP) Pulse Ox O2 Delivery O2 Flow Rate FiO2 12/06/18 20:06 85 16 99 Nasal Cannula 2.0 28 12/06/18 20:00 98.8 84 20 158/75 (102) 99 12/06/18 20:00 2.0 12/06/18 20:00 Nasal Cannula 2.0 12/06/18 19:55 82 16 98 Nasal Cannula 2.0 28 12/06/18 16:00 98.7 78 15 154/77 (102) 99 12/06/18 16:00 Nasal Cannula 2.0 12/06/18 16:00 2.0 12/06/18 16:00 73 12/06/18 15:31 153/73 12/06/18 13:05 80 16 99 Nasal Cannula 2.0 28 12/06/18 12:56 70 16 99 Nasal Cannula 2.0 28 12/06/18 12:00 99.3 76 15 153/73 (99) 98 12/06/18 12:00 Nasal Cannula 2.0 12/06/18 12:00 76 12/06/18 12:00 2.0 12/06/18 09:12 84 153/71 12/06/18 08:00 81 12/06/18 08:00 2.0 12/06/18 08:00 99.9 84 14 153/71 (98) 99 12/06/18 08:00 Nasal Cannula 2.0 12/06/18 07:42 81 16 100 Nasal Cannula 2.0 28 12/06/18 07:37 81 16 98 Nasal Cannula 2.0 28 12/06/18 07:37 Nasal Cannula 2.0 28 12/06/18 07:37 98 Nasal Cannula 2.0 28 12/06/18 05:43 85 16 98 12/06/18 04:00 30 12/06/18 04:00 Bi-pap 12/06/18 04:00 99.3 78 19 149/74 (99) 100 12/06/18 03:37 84 12/06/18 02:52 84 16 98 Facial 30 12/06/18 00:59 83 16 99 Bi-pap 30 12/06/18 00:49 84 16 98 Bi-pap 30 12/06/18 00:00 Bi-pap 12/06/18 00:00 2.0 12/06/18 00:00 99.0 80 18 153/80 (104) 99 12/05/18 23:28 79 12/05/18 22:49 84 16 98 Facial 30 12/05/18 20:56 88 148/78 Intake and Output 12/05/18 12/06/18 18:59 06:59 Intake Total 762.5 ml 1130.0 ml Output Total 1600 ml Balance 762.5 ml -470.0 ml Free Water 300 ml IV Total 762.5 ml 110.0 ml Tube Feeding 720 ml Output Urine Total 1600 ml # Bowel Movements 2 Laboratory Tests 12/06/18 05:15: White Blood Count 5.5, Red Blood Count 2.75L, Hemoglobin 8.4L, Hematocrit 25.8L , Mean Corpuscular Volume 94, Mean Corpuscular Hemoglobin 30.5, Mean Corpuscular Hemoglobin Concent 32.5, Red Cell Distribution Width 15.0H, Platelet Count 43L, Mean Platelet Volume 8.0, Neutrophils (%) (Auto) , Lymphocytes (%) (Auto) , Monocytes (%) (Auto) , Eosinophils (%) (Auto) , Basophils (%) (Auto) , Differential Total Cells Counted 100, Neutrophils % ( Manual) 74, Lymphocytes % (Manual) 15L, Monocytes % (Manual) 4, Eosinophils % ( Manual) 3, Basophils % (Manual) 0, Band Neutrophils 4, Platelet Estimate DecreasedL, Platelet Morphology Normal, Anisocytosis 1+, Sodium Level 149H, Potassium Level 3.0L, Chloride Level 115H, Carbon Dioxide Level 28, Anion Gap 6 , Blood Urea Nitrogen 18, Creatinine 0.7, Estimat Glomerular Filtration Rate , Glucose Level 194H, Calcium Level 8.2L, Phosphorus Level 3.1, Magnesium Level 2.2 Height (Feet): 5 Height (Inches): 3.00 Weight (Pounds): 122 Objective Physical Exam Vitals: reviewed Gen: confused, on bipap, unable to converse, sleepy Pulm: ++ crackles ++ bipap CV: RRR, no mgr Abd: soft, nt, nd ++ peg Ext: no swelling of lower ext Neuro: demented Dewayne Gayle MD Dec 06, 2018 20:48
[2018-12-06] MEDS: Dyna-Hex 2% Top Sol 2oz TOPIC SCH (21:07)
--- NOTE | 2018-12-06 23:49 | Cardiology Progress Note ---
Assessment/Plan Assessment/Plan 1. Septic shock, most likely due to bilateral pneumonia as well as associated effusion. Normal LV systolic function with grade I LVDD. 2. Slight elevation of troponin I level could be secondary to sepsis although demand ischemia situation cannot be ruled out. 3. Prerenal azotemia, resolved. 4. DVT status post IVC filter. 5. History of metabolic encephalopathy. 6. History of dementia. 7. History of CVA. 8. History of pancytopenia. 9. Sinus tachycardia likely secondary to underlying sepsis. The treatment of sinus tachycardia is the treatment of underlying etiology. Subjective Subjective Sinus rhythm at rate of 75. Objective Last 24 Hour Vital Signs Date Time Temp Pulse Resp B/P (MAP) Pulse Ox O2 Delivery O2 Flow Rate FiO2 12/06/18 23:17 75 20 98 Facial 30 12/06/18 22:12 75 20 98 Facial 30 12/06/18 21:08 99 Nasal Cannula 2.0 28 12/06/18 21:08 Nasal Cannula 2.0 28 12/06/18 21:07 85 158/75 12/06/18 20:11 79 12/06/18 20:06 85 16 99 Nasal Cannula 2.0 28 12/06/18 20:00 98.8 84 20 158/75 (102) 99 12/06/18 20:00 2.0 12/06/18 20:00 Nasal Cannula 2.0 12/06/18 19:55 82 16 98 Nasal Cannula 2.0 28 12/06/18 16:00 98.7 78 15 154/77 (102) 99 12/06/18 16:00 Nasal Cannula 2.0 12/06/18 16:00 2.0 12/06/18 16:00 73 12/06/18 15:31 153/73 12/06/18 13:05 80 16 99 Nasal Cannula 2.0 28 12/06/18 12:56 70 16 99 Nasal Cannula 2.0 28 12/06/18 12:00 99.3 76 15 153/73 (99) 98 12/06/18 12:00 Nasal Cannula 2.0 12/06/18 12:00 76 12/06/18 12:00 2.0 12/06/18 09:12 84 153/71 12/06/18 08:00 81 12/06/18 08:00 2.0 12/06/18 08:00 99.9 84 14 153/71 (98) 99 12/06/18 08:00 Nasal Cannula 2.0 12/06/18 07:42 81 16 100 Nasal Cannula 2.0 28 12/06/18 07:37 81 16 98 Nasal Cannula 2.0 28 12/06/18 07:37 Nasal Cannula 2.0 28 12/06/18 07:37 98 Nasal Cannula 2.0 28 12/06/18 05:43 85 16 98 12/06/18 04:00 30 12/06/18 04:00 Bi-pap 12/06/18 04:00 99.3 78 19 149/74 (99) 100 12/06/18 03:37 84 12/06/18 02:52 84 16 98 Facial 30 12/06/18 00:59 83 16 99 Bi-pap 30 12/06/18 00:49 84 16 98 Bi-pap 30 12/06/18 00:00 Bi-pap 12/06/18 00:00 2.0 12/06/18 00:00 99.0 80 18 153/80 (104) 99 Intake and Output 12/05/18 12/06/18 19:00 07:00 Intake Total 712.5 ml 1130.0 ml Output Total 1600 ml Balance 712.5 ml -470.0 ml Free Water 300 ml IV Total 652.5 ml 110.0 ml Tube Feeding 60 ml 720 ml Output Urine Total 1600 ml # Bowel Movements 2 2D Echo: EF55%, Large left pleural eff., Grade I LVDD, Mild AR/Mod MR/WI,RVSP 37mmHg Laboratory Tests Test 12/06/18 05:15 White Blood Count 5.5 K/UL (4.8-10.8) Red Blood Count 2.75 M/UL (4.20-5.40) L Hemoglobin 8.4 G/DL (12.0-16.0) L Hematocrit 25.8 % (37.0-47.0) L Mean Corpuscular Volume 94 FL (80-99) Mean Corpuscular Hemoglobin 30.5 PG (27.0-31.0) Mean Corpuscular Hemoglobin Concent 32.5 G/DL (32.0-36.0) Red Cell Distribution Width 15.0 % (11.6-14.8) H Platelet Count 43 K/UL (150-450) L Mean Platelet Volume 8.0 FL (6.5-10.1) Neutrophils (%) (Auto) % (45.0-75.0) Lymphocytes (%) (Auto) % (20.0-45.0) Monocytes (%) (Auto) % (1.0-10.0) Eosinophils (%) (Auto) % (0.0-3.0) Basophils (%) (Auto) % (0.0-2.0) Differential Total Cells Counted 100 Neutrophils % (Manual) 74 % (45-75) Lymphocytes % (Manual) 15 % (20-45) L Monocytes % (Manual) 4 % (1-10) Eosinophils % (Manual) 3 % (0-3) Basophils % (Manual) 0 % (0-2) Band Neutrophils 4 % (0-8) Platelet Estimate Decreased L Platelet Morphology Normal Anisocytosis 1+ Sodium Level 149 MMOL/L (136-145) H Potassium Level 3.0 MMOL/L (3.5-5.1) L Chloride Level 115 MMOL/L (98-107) H Carbon Dioxide Level 28 MMOL/L (21-32) Anion Gap 6 mmol/L (5-15) Blood Urea Nitrogen 18 mg/dL (7-18) Creatinine 0.7 MG/DL (0.55-1.30) Estimat Glomerular Filtration Rate mL/min (>60) Glucose Level 194 MG/DL (74-106) H Calcium Level 8.2 MG/DL (8.5-10.1) L Phosphorus Level 3.1 MG/DL (2.5-4.9) Magnesium Level 2.2 MG/DL (1.8-2.4) Objective HEENT: Normocephalic, atraumatic, PERRLA, EOMI. On rebreathing mask. NECK: JVP <5cm, No carotid bruit. HEART: Normal S1S2, no murmurs, gallops or rubs, Tachycardic. LUNGS: Decrease BS in the left base. ABDOMEN: Soft and nontender, non-distended, no HSM, + BS. EXTREMITIES: No edema, clubbing or cyanosis. Deepak Aldana MD Dec 06, 2018 23:49
[2018-12-07] VITALS: BP 155/80
--- NOTE | 2018-12-07 00:52 | NUR ---
NURSE NOTES: Patient has been placed on BiPAP with settings of 15/5 FiO2: 30% and O2 saturating at 99%. Feeding is turned off per Andresaghi's orders while patient is placed on BiPAP. Provided bed bath and repositioning.
[2018-12-07] MEDS: Albuterol/Ipratropium 3ml neb HHN SCH ×4 (00:57→18:56)
[2018-12-07 04:00] VITALS: BP 146/74
[2018-12-07] MEDS: Piperacillin/Tazobactam 3.375 GM in D5W 110 ML IVPB SCH ×3 (05:35→21:13)
[2018-12-07] MEDS: NovoLOG Insulin Flexpen SUBQ SCH ×4 (05:36→23:26)
[2018-12-07 06:14] LABS: HEMATOCRIT 27.3 % (37.0-47.0); HEMOGLOBIN 8.8 G/DL (12.0-16.0); MEAN CORPUSCULAR VOLUME 94 FL (80-99); PLATELET COUNT 43 K/UL (150-450); RED BLOOD COUNT 2.92 M/UL (4.20-5.40); RED CELL DISTRIBUTION WIDTH 15.3 % (11.6-14.8); WHITE BLOOD COUNT 5.8 K/UL (4.8-10.8)
[2018-12-07 06:40] LABS: ANION GAP 4 mmol/L (5-15); BLOOD UREA NITROGEN 19 mg/dL (7-18); CALCIUM 8.4 MG/DL (8.5-10.1); CARBON DIOXIDE 30 MMOL/L (21-32); CHLORIDE 113 MMOL/L (98-107); CREATININE 0.6 MG/DL (0.55-1.30); PHOSPHORUS 2.6 MG/DL (2.5-4.9); POTASSIUM 2.9 MMOL/L (3.5-5.1); SODIUM 147 MMOL/L (136-145)
--- NOTE | 2018-12-07 07:26 | NUR ---
HAND-OFF: Report given to DONIS Tucker. Patient is stable.
[2018-12-07 08:00] VITALS: BP 139/69
--- NOTE | 2018-12-07 08:00 | NUR ---
NURSE NOTES: Received patient from DONIS Samuels. Patient is asleep. On 2L nasal cannula, showing no signs and symptoms of distress and/or pain. On GTube feeding of Glucerna 1.2 @ 25ml/hr, goal is 55ml/hour. R femoral TLC dry and intact, vera draining to gravity. Will continue plan of care
[2018-12-07] MEDS: Metoprolol 25mg tab ORAL SCH ×2 (09:00→21:12)
--- NOTE | 2018-12-07 09:59 | Pulmonology Progress Note ---
Assessment/Plan Problems: (1) UTI (urinary tract infection) (2) Pneumonia (3) Sepsis (4) DVT (deep venous thrombosis) (5) Dementia with behavioral disturbance (6) Malnutrition (7) Anemia (8) Thrombocytopenia (9) Feeding by G-tube (10) Elevated troponin I level (11) S/P IVC filter Assessment/Plan Optimize pulmonary hygiene/mobilize as tolerated Titrate down FiO2 to keep SaO2 > 90% RTC and PRN HHN's Abx per ID, F/U Cx's TF's as tolerated Monitor volumes and renal function Monitor CBC, transfuse as needed F/U outplacement consultant recs DVT Px: IVCF FC, continue to discuss GOC Subjective Allergies: Coded Allergies: No Known Allergies (Unverified , 07/26/18) Subjective AFVSS on 2L used BiPAP ON leta TF's no respiratory distress no cough no SOB no wheezing no F.C Objective Last 24 Hour Vital Signs Date Time Temp Pulse Resp B/P (MAP) Pulse Ox O2 Delivery O2 Flow Rate FiO2 12/07/18 09:00 69 146/74 12/07/18 07:42 Nasal Cannula 2.0 28 12/07/18 07:42 100 Nasal Cannula 2.0 28 12/07/18 07:41 69 15 Nasal Cannula 2.0 28 12/07/18 07:41 69 16 100 Nasal Cannula 30 12/07/18 07:30 72 18 99 30 12/07/18 07:30 30 12/07/18 04:45 77 15 99 Facial 30 12/07/18 04:00 Nasal Cannula 2.0 12/07/18 04:00 30 12/07/18 04:00 98.1 71 14 146/74 (98) 99 12/07/18 03:25 78 12/07/18 03:11 72 14 99 Facial 30 12/07/18 01:07 73 15 100 Bi-pap 30 12/07/18 00:58 71 17 99 Facial 30 12/07/18 00:57 30 12/07/18 00:57 71 16 99 Bi-pap 30 12/07/18 00:00 Nasal Cannula 2.0 12/07/18 00:00 98.4 77 16 155/80 (105) 99 12/07/18 00:00 30 12/06/18 23:30 74 12/06/18 23:17 75 20 98 Facial 30 12/06/18 22:12 75 20 98 Facial 30 12/06/18 21:08 99 Nasal Cannula 2.0 28 12/06/18 21:08 Nasal Cannula 2.0 28 12/06/18 21:07 85 158/75 12/06/18 20:11 79 12/06/18 20:06 85 16 99 Nasal Cannula 2.0 28 12/06/18 20:00 98.8 84 20 158/75 (102) 99 12/06/18 20:00 2.0 12/06/18 20:00 Nasal Cannula 2.0 12/06/18 19:55 82 16 98 Nasal Cannula 2.0 28 12/06/18 16:00 98.7 78 15 154/77 (102) 99 12/06/18 16:00 Nasal Cannula 2.0 12/06/18 16:00 2.0 12/06/18 16:00 73 12/06/18 15:31 153/73 12/06/18 13:05 80 16 99 Nasal Cannula 2.0 28 12/06/18 12:56 70 16 99 Nasal Cannula 2.0 28 12/06/18 12:00 99.3 76 15 153/73 (99) 98 12/06/18 12:00 Nasal Cannula 2.0 12/06/18 12:00 76 12/06/18 12:00 2.0 Intake and Output 12/06/18 12/07/18 19:00 07:00 Intake Total 1470.0 ml 244.00 ml Output Total 1450 ml 1500 ml Balance 20.0 ml -1256.00 ml Free Water 330 ml IV Total 620.0 ml 149.00 ml Tube Feeding 520 ml 95 ml Output Urine Total 1450 ml 1500 ml # Bowel Movements 2 4 General Appearance: no acute distress, cachetic HEENT: normocephalic, atraumatic, anicteric, mucous membranes moist Respiratory/Chest: chest wall non-tender, lungs clear, normal breath sounds, no respiratory distress, no accessory muscle use Cardiovascular: normal peripheral pulses, normal rate, regular rhythm Abdomen: normal bowel sounds, soft, non tender, no organomegaly, non distended , no mass, other - GT Extremities: no cyanosis, no clubbing, no edema Laboratory Tests 12/07/18 04:50: White Blood Count 5.8, Red Blood Count 2.92L, Hemoglobin 8.8L, Hematocrit 27.3L , Mean Corpuscular Volume 94, Mean Corpuscular Hemoglobin 30.3, Mean Corpuscular Hemoglobin Concent 32.3, Red Cell Distribution Width 15.3H, Platelet Count 43L, Mean Platelet Volume 8.4, Neutrophils (%) (Auto) , Lymphocytes (%) (Auto) , Monocytes (%) (Auto) , Eosinophils (%) (Auto) , Basophils (%) (Auto) , Sodium Level 147H, Potassium Level 2.9L, Chloride Level 113H, Carbon Dioxide Level 30, Anion Gap 4L, Blood Urea Nitrogen 19H, Creatinine 0.6, Estimat Glomerular Filtration Rate , Glucose Level 145H, Calcium Level 8.4L, Phosphorus Level 2.6, Magnesium Level 1.9 Current Medications Medications (Trade) Dose Ordered Sig/Laure Route PRN Reason Start Time Stop Time Status Last Admin Dose Admin Acetaminophen (Tylenol) 650 mg Q4HR PRN NG Mild Pain/Temp > 100.5 12/03/18 17:00 01/01/19 04:14 Albuterol/ Ipratropium (Albuterol/ Ipratropium) 3 ml Q6HRT HHN 12/04/18 13:00 12/09/18 12:59 12/07/18 07:38 Chlorhexidine Gluconate (Georgina-Hex 2%) 1 applic DAILY@2000 TOPIC 12/03/18 20:00 12/31/18 19:59 12/06/18 21:07 Dextrose (Dextrose 50%) 25 ml Q30M PRN IV Hypoglycemia 12/03/18 13:30 12/31/18 12:29 Dextrose (Dextrose 50%) 50 ml Q30M PRN IV Hypoglycemia 12/03/18 13:30 12/31/18 12:29 Insulin Aspart (NovoLOG) Q6HR SUBQ 12/03/18 18:00 12/31/18 17:59 12/07/18 05:36 Metoprolol Tartrate (Lopressor) 25 mg Q12HR ORAL 12/03/18 17:00 01/02/19 16:59 12/07/18 09:00 Nitroglycerin (Ntg) 1 patch Q24H TDERMAL 12/03/18 16:00 01/01/19 15:59 12/06/18 15:31 Ondansetron HCl (Zofran) 4 mg Q6H PRN IVP Nausea & Vomiting 12/03/18 16:15 12/31/18 10:14 Piperacillin Sod/ Tazobactam Sod 3.375 gm/Dextrose 110 ml @ 27.5 mls/hr EVERY 8 HOURS IVPB 12/06/18 14:00 12/09/18 23:59 12/07/18 05:35 Foreign Parekh MD Dec 07, 2018 09:58
--- NOTE | 2018-12-07 11:00 | GI Progress Note ---
Assessment/Plan Problems: (1) Feeding by G-tube ICD Codes: Z93.1 - Gastrostomy status SNOMED: 899118744, 193419083, 110387307 (2) Anemia ICD Codes: D64.9 - Anemia, unspecified SNOMED: 450766556 (3) Malnutrition ICD Codes: E46 - Unspecified protein-calorie malnutrition SNOMED: 21768862 (4) Dehydration ICD Codes: E86.0 - Dehydration SNOMED: 37278379 (5) Dementia with behavioral disturbance ICD Codes: F03.91 - Unspecified dementia with behavioral disturbance SNOMED: 3381482537225 Status: progressing Status Narrative Discussed with Dr. Argueta Assessment/Plan GTF OFF while on of BIPAP, now on NC GTFs per RD GT site care fu labs abx per ID supportive care fu The patient was seen and examined at bedside and all new and available data was reviewed in the patients chart. I agree with the above findings, impression and plan. (Patient seen earlier today. Signature stamp does not reflect patient encounter time.). - Edwardo Argueta MD Subjective Subjective limited Objective Last 24 Hour Vital Signs Date Time Temp Pulse Resp B/P (MAP) Pulse Ox O2 Delivery O2 Flow Rate FiO2 12/07/18 09:00 69 146/74 12/07/18 08:00 97.9 75 14 139/69 (92) 99 12/07/18 08:00 Nasal Cannula 2.0 12/07/18 08:00 30 12/07/18 08:00 82 12/07/18 07:42 Nasal Cannula 2.0 28 12/07/18 07:42 100 Nasal Cannula 2.0 28 12/07/18 07:41 69 15 Nasal Cannula 2.0 28 12/07/18 07:41 69 16 100 Nasal Cannula 30 12/07/18 07:30 72 18 99 30 12/07/18 07:30 30 12/07/18 04:45 77 15 99 Facial 30 12/07/18 04:00 Nasal Cannula 2.0 12/07/18 04:00 30 12/07/18 04:00 98.1 71 14 146/74 (98) 99 12/07/18 03:25 78 12/07/18 03:11 72 14 99 Facial 30 12/07/18 01:07 73 15 100 Bi-pap 30 12/07/18 00:58 71 17 99 Facial 30 12/07/18 00:57 30 12/07/18 00:57 71 16 99 Bi-pap 30 12/07/18 00:00 Nasal Cannula 2.0 12/07/18 00:00 98.4 77 16 155/80 (105) 99 12/07/18 00:00 30 12/06/18 23:30 74 12/06/18 23:17 75 20 98 Facial 30 12/06/18 22:12 75 20 98 Facial 30 12/06/18 21:08 99 Nasal Cannula 2.0 28 12/06/18 21:08 Nasal Cannula 2.0 28 12/06/18 21:07 85 158/75 12/06/18 20:11 79 12/06/18 20:06 85 16 99 Nasal Cannula 2.0 28 12/06/18 20:00 98.8 84 20 158/75 (102) 99 12/06/18 20:00 2.0 12/06/18 20:00 Nasal Cannula 2.0 12/06/18 19:55 82 16 98 Nasal Cannula 2.0 28 12/06/18 16:00 98.7 78 15 154/77 (102) 99 12/06/18 16:00 Nasal Cannula 2.0 12/06/18 16:00 2.0 12/06/18 16:00 73 12/06/18 15:31 153/73 12/06/18 13:05 80 16 99 Nasal Cannula 2.0 28 12/06/18 12:56 70 16 99 Nasal Cannula 2.0 28 12/06/18 12:00 99.3 76 15 153/73 (99) 98 12/06/18 12:00 Nasal Cannula 2.0 12/06/18 12:00 76 12/06/18 12:00 2.0 Intake and Output 12/06/18 12/07/18 19:00 07:00 Intake Total 1470.0 ml 244.00 ml Output Total 1450 ml 1500 ml Balance 20.0 ml -1256.00 ml Free Water 330 ml IV Total 620.0 ml 149.00 ml Tube Feeding 520 ml 95 ml Output Urine Total 1450 ml 1500 ml # Bowel Movements 2 4 Laboratory Tests Test 12/07/18 04:50 White Blood Count 5.8 K/UL (4.8-10.8) Red Blood Count 2.92 M/UL (4.20-5.40) L Hemoglobin 8.8 G/DL (12.0-16.0) L Hematocrit 27.3 % (37.0-47.0) L Mean Corpuscular Volume 94 FL (80-99) Mean Corpuscular Hemoglobin 30.3 PG (27.0-31.0) Mean Corpuscular Hemoglobin Concent 32.3 G/DL (32.0-36.0) Red Cell Distribution Width 15.3 % (11.6-14.8) H Platelet Count 43 K/UL (150-450) L Mean Platelet Volume 8.4 FL (6.5-10.1) Neutrophils (%) (Auto) % (45.0-75.0) Lymphocytes (%) (Auto) % (20.0-45.0) Monocytes (%) (Auto) % (1.0-10.0) Eosinophils (%) (Auto) % (0.0-3.0) Basophils (%) (Auto) % (0.0-2.0) Sodium Level 147 MMOL/L (136-145) H Potassium Level 2.9 MMOL/L (3.5-5.1) L Chloride Level 113 MMOL/L (98-107) H Carbon Dioxide Level 30 MMOL/L (21-32) Anion Gap 4 mmol/L (5-15) L Blood Urea Nitrogen 19 mg/dL (7-18) H Creatinine 0.6 MG/DL (0.55-1.30) Estimat Glomerular Filtration Rate mL/min (>60) Glucose Level 145 MG/DL (74-106) H Calcium Level 8.4 MG/DL (8.5-10.1) L Phosphorus Level 2.6 MG/DL (2.5-4.9) Magnesium Level 1.9 MG/DL (1.8-2.4) Height (Feet): 5 Height (Inches): 3.00 Weight (Pounds): 122 General Appearance: WD/WN, no apparent distress, alert Cardiovascular: normal rate Respiratory/Chest: normal breath sounds, no respiratory distress Abdominal Exam: normal bowel sounds, non tender, soft, GT site - Clean dry and intact Extremities: non-tender Aidee Powell MILLER FIRST Dec 07, 2018 11:00
[2018-12-07 12:00] VITALS: BP 126/62
--- NOTE | 2018-12-07 12:23 | Infectious Diseases Prog Note ---
Assessment/Plan Assessment/Plan A: 1. Proteus Sepsis 2. urinary tract infection with E.coli & Proteus 3. Atelectasis on chest x-ray, may have underlying pneumonia. 4. Diabetes mellitus type 2. 5. Dementia. 6. Pancytopenia. 7. Pressure ulcer 8. MRSA & VRE colonization RECOMMENDATION: 1. Continue Zosyn. 2. will follow up the cultures. Subjective ROS Limited/Unobtainable: Yes Allergies: Coded Allergies: No Known Allergies (Unverified , 07/26/18) Objective Vital Signs Last 24 Hour Vital Signs Date Time Temp Pulse Resp B/P (MAP) Pulse Ox O2 Delivery O2 Flow Rate FiO2 12/07/18 09:00 69 146/74 12/07/18 08:00 97.9 75 14 139/69 (92) 99 12/07/18 08:00 Nasal Cannula 2.0 12/07/18 08:00 30 12/07/18 08:00 82 12/07/18 07:42 Nasal Cannula 2.0 28 12/07/18 07:42 100 Nasal Cannula 2.0 28 12/07/18 07:41 69 15 Nasal Cannula 2.0 28 12/07/18 07:41 69 16 100 Nasal Cannula 30 12/07/18 07:30 72 18 99 30 12/07/18 07:30 30 12/07/18 04:45 77 15 99 Facial 30 12/07/18 04:00 Nasal Cannula 2.0 12/07/18 04:00 30 12/07/18 04:00 98.1 71 14 146/74 (98) 99 12/07/18 03:25 78 12/07/18 03:11 72 14 99 Facial 30 12/07/18 01:07 73 15 100 Bi-pap 30 12/07/18 00:58 71 17 99 Facial 30 12/07/18 00:57 30 12/07/18 00:57 71 16 99 Bi-pap 30 12/07/18 00:00 Nasal Cannula 2.0 12/07/18 00:00 98.4 77 16 155/80 (105) 99 12/07/18 00:00 30 12/06/18 23:30 74 12/06/18 23:17 75 20 98 Facial 30 12/06/18 22:12 75 20 98 Facial 30 12/06/18 21:08 99 Nasal Cannula 2.0 28 12/06/18 21:08 Nasal Cannula 2.0 28 12/06/18 21:07 85 158/75 12/06/18 20:11 79 12/06/18 20:06 85 16 99 Nasal Cannula 2.0 28 12/06/18 20:00 98.8 84 20 158/75 (102) 99 12/06/18 20:00 2.0 12/06/18 20:00 Nasal Cannula 2.0 12/06/18 19:55 82 16 98 Nasal Cannula 2.0 28 12/06/18 16:00 98.7 78 15 154/77 (102) 99 12/06/18 16:00 Nasal Cannula 2.0 12/06/18 16:00 2.0 12/06/18 16:00 73 12/06/18 15:31 153/73 12/06/18 13:05 80 16 99 Nasal Cannula 2.0 28 12/06/18 12:56 70 16 99 Nasal Cannula 2.0 28 Height (Feet): 5 Height (Inches): 3.00 Weight (Pounds): 122 General Appearance: no acute distress HEENT: status post trach Respiratory/Chest: lungs clear Cardiovascular: normal rate Abdomen: soft, non tender, other - GT feeding Extremities: no edema Neurologic/Psychiatric: aphasia Laboratory Tests Test 12/07/18 04:50 White Blood Count 5.8 K/UL (4.8-10.8) Red Blood Count 2.92 M/UL (4.20-5.40) L Hemoglobin 8.8 G/DL (12.0-16.0) L Hematocrit 27.3 % (37.0-47.0) L Mean Corpuscular Volume 94 FL (80-99) Mean Corpuscular Hemoglobin 30.3 PG (27.0-31.0) Mean Corpuscular Hemoglobin Concent 32.3 G/DL (32.0-36.0) Red Cell Distribution Width 15.3 % (11.6-14.8) H Platelet Count 43 K/UL (150-450) L Mean Platelet Volume 8.4 FL (6.5-10.1) Neutrophils (%) (Auto) % (45.0-75.0) Lymphocytes (%) (Auto) % (20.0-45.0) Monocytes (%) (Auto) % (1.0-10.0) Eosinophils (%) (Auto) % (0.0-3.0) Basophils (%) (Auto) % (0.0-2.0) Sodium Level 147 MMOL/L (136-145) H Potassium Level 2.9 MMOL/L (3.5-5.1) L Chloride Level 113 MMOL/L (98-107) H Carbon Dioxide Level 30 MMOL/L (21-32) Anion Gap 4 mmol/L (5-15) L Blood Urea Nitrogen 19 mg/dL (7-18) H Creatinine 0.6 MG/DL (0.55-1.30) Estimat Glomerular Filtration Rate mL/min (>60) Glucose Level 145 MG/DL (74-106) H Calcium Level 8.4 MG/DL (8.5-10.1) L Phosphorus Level 2.6 MG/DL (2.5-4.9) Magnesium Level 1.9 MG/DL (1.8-2.4) Current Medications Medications (Trade) Dose Ordered Sig/Laure Route PRN Reason Start Time Stop Time Status Last Admin Dose Admin Acetaminophen (Tylenol) 650 mg Q4HR PRN NG Mild Pain/Temp > 100.5 12/03/18 17:00 01/01/19 04:14 Albuterol/ Ipratropium (Albuterol/ Ipratropium) 3 ml Q6HRT HHN 12/04/18 13:00 12/09/18 12:59 12/07/18 07:38 Chlorhexidine Gluconate (Georgina-Hex 2%) 1 applic DAILY@2000 TOPIC 12/03/18 20:00 12/31/18 19:59 12/06/18 21:07 Dextrose (Dextrose 50%) 25 ml Q30M PRN IV Hypoglycemia 12/03/18 13:30 12/31/18 12:29 Dextrose (Dextrose 50%) 50 ml Q30M PRN IV Hypoglycemia 12/03/18 13:30 12/31/18 12:29 Insulin Aspart (NovoLOG) Q6HR SUBQ 12/03/18 18:00 12/31/18 17:59 12/07/18 05:36 Metoprolol Tartrate (Lopressor) 25 mg Q12HR ORAL 12/03/18 17:00 3/25/19 16:59 12/07/18 09:00 Nitroglycerin (Ntg) 1 patch Q24H TDERMAL 12/03/18 16:00 01/01/19 15:59 12/06/18 15:31 Ondansetron HCl (Zofran) 4 mg Q6H PRN IVP Nausea & Vomiting 12/03/18 16:15 12/31/18 10:14 Piperacillin Sod/ Tazobactam Sod 3.375 gm/Dextrose 110 ml @ 27.5 mls/hr EVERY 8 HOURS IVPB 12/06/18 14:00 12/09/18 23:59 12/07/18 05:35 Potassium Chloride 100 ml @ 50 mls/hr Q2H IVPB 12/07/18 12:00 12/07/18 17:59 Shimon Card MD Dec 07, 2018 12:23
--- NOTE | 2018-12-07 14:11 | Nephrology Progress Note ---
Assessment/Plan Problem List: (1) Sepsis Assessment: low bp (2) Oliguria Assessment: due low bp (3) Anemia (4) Hypokalemia (5) Diabetic nephropathy (6) Elevated troponin I level Assessment Oliguria due to low BP Sepsis and low BP Elevated troponin UTI (urinary tract infection) Pneumonia Anemia worsening DM+ Proteinuria: Nephropathy s/p IVC Filter Acute encephalopathy HypoAlbuminemia Plan DC IV fluids K Phos , KCl , MgSo4 IV ordered Fluid challenge antibiotics avoid nephrotoxics anemia mac per orders Subjective ROS Limited/Unobtainable: No Constitutional: Reports: malaise, weakness Objective Objective Last 24 Hour Vital Signs Date Time Temp Pulse Resp B/P (MAP) Pulse Ox O2 Delivery O2 Flow Rate FiO2 12/07/18 13:40 72 16 100 Nasal Cannula 28 12/07/18 13:32 30 12/07/18 13:32 71 18 100 Nasal Cannula 2.0 28 12/07/18 09:00 69 146/74 12/07/18 08:00 97.9 75 14 139/69 (92) 99 12/07/18 08:00 Nasal Cannula 2.0 12/07/18 08:00 30 12/07/18 08:00 82 12/07/18 07:42 Nasal Cannula 2.0 28 12/07/18 07:42 100 Nasal Cannula 2.0 28 12/07/18 07:41 69 15 Nasal Cannula 2.0 28 12/07/18 07:41 69 16 100 Nasal Cannula 28 12/07/18 07:30 72 18 99 30 12/07/18 07:30 30 12/07/18 04:45 77 15 99 Facial 30 12/07/18 04:00 Nasal Cannula 2.0 12/07/18 04:00 30 12/07/18 04:00 98.1 71 14 146/74 (98) 99 12/07/18 03:25 78 12/07/18 03:11 72 14 99 Facial 30 12/07/18 01:07 73 15 100 Bi-pap 30 12/07/18 00:58 71 17 99 Facial 30 12/07/18 00:57 30 12/07/18 00:57 71 16 99 Bi-pap 30 12/07/18 00:00 Nasal Cannula 2.0 12/07/18 00:00 98.4 77 16 155/80 (105) 99 12/07/18 00:00 30 12/06/18 23:30 74 12/06/18 23:17 75 20 98 Facial 30 12/06/18 22:12 75 20 98 Facial 30 12/06/18 21:08 99 Nasal Cannula 2.0 28 12/06/18 21:08 Nasal Cannula 2.0 28 12/06/18 21:07 85 158/75 12/06/18 20:11 79 12/06/18 20:06 85 16 99 Nasal Cannula 2.0 28 12/06/18 20:00 98.8 84 20 158/75 (102) 99 12/06/18 20:00 2.0 12/06/18 20:00 Nasal Cannula 2.0 12/06/18 19:55 82 16 98 Nasal Cannula 2.0 28 12/06/18 16:00 98.7 78 15 154/77 (102) 99 12/06/18 16:00 Nasal Cannula 2.0 12/06/18 16:00 2.0 12/06/18 16:00 73 12/06/18 15:31 153/73 Intake and Output 12/06/18 12/07/18 19:00 07:00 Intake Total 1470.0 ml 244.00 ml Output Total 1450 ml 1500 ml Balance 20.0 ml -1256.00 ml Free Water 330 ml IV Total 620.0 ml 149.00 ml Tube Feeding 520 ml 95 ml Output Urine Total 1450 ml 1500 ml # Bowel Movements 2 4 Laboratory Tests 12/07/18 04:50: White Blood Count 5.8, Red Blood Count 2.92L, Hemoglobin 8.8L, Hematocrit 27.3L , Mean Corpuscular Volume 94, Mean Corpuscular Hemoglobin 30.3, Mean Corpuscular Hemoglobin Concent 32.3, Red Cell Distribution Width 15.3H, Platelet Count 43L, Mean Platelet Volume 8.4, Neutrophils (%) (Auto) , Lymphocytes (%) (Auto) , Monocytes (%) (Auto) , Eosinophils (%) (Auto) , Basophils (%) (Auto) , Sodium Level 147H, Potassium Level 2.9L, Chloride Level 113H, Carbon Dioxide Level 30, Anion Gap 4L, Blood Urea Nitrogen 19H, Creatinine 0.6, Estimat Glomerular Filtration Rate , Glucose Level 145H, Calcium Level 8.4L, Phosphorus Level 2.6, Magnesium Level 1.9 Height (Feet): 5 Height (Inches): 3.00 Weight (Pounds): 122 General Appearance: no apparent distress Cardiovascular: normal rate Respiratory/Chest: decreased breath sounds Abdomen: soft Parvez Bergman MD Dec 07, 2018 14:11
[2018-12-07] MEDS ORDERED: Tubing IV Blood Pump IV ONE (15:55)
[2018-12-07] MEDS ORDERED: D5W 275ml ONE (15:55)
[2018-12-07] MEDS ORDERED: Tubing IV Secondary IV ONE ×2 (15:55→18:19)
[2018-12-07] MEDS ORDERED: NS 275ml ONE ×2 (15:55→18:19)
[2018-12-07] MEDS ORDERED: Sterile Water Irrig 1000ml IRRIG ONE (15:55)
[2018-12-07 16:00] VITALS: BP 140/77
[2018-12-07] MEDS: Nitroglycerin Patch 0.4mg TDERMAL SCH (16:00)
--- NOTE | 2018-12-07 17:29 | NUR ---
CASE MANAGEMENT: REVIEW 12/07/2018 SI; SEPSIS T 98.1 HR 71 RR 14 B/P 140/77 SATS 99% ON 2L/NC NA 147 K 2.9 CL 113 BUN 19 GLU 145 CA 8.4 IS: ZOSYN IV ALB HHN K DUR GT BID KCL IV Q2H STEP DOWN STATUS
--- NOTE | 2018-12-07 18:59 | NUR ---
HAND-OFF: Report given to DONIS Dang.
--- NOTE | 2018-12-07 19:20 | NUR ---
NURSE NOTES: Received report from Garrett RN, pt. in bed a sleep, cardiac monitoring on- sinus rhythm on monitor, no signs or symptoms of acute cardiac or respiratory distress noted, bed in lowest position and call light within easy reach, bed alarm on, side rails up x's 3 and safety brakes engaged, Pt. appears to be tolerating current BIPAP settings well at 15/5 fio2 at 30%- no distress noted, pt. running Glucerna 1.2 at 45cc/hr- no residual noted- goal is at 55cc/hr. Leiva intact and draining to gravity, comfort measures provided, Rt. Femoral TLC Intact and patent- TKO, safety measures continued, will continue with plan of care and continue to monitor patient.
--- NOTE | 2018-12-07 19:31 | General Progress Note ---
Assessment/Plan Assessment/Plan Assessment/Recs: # DVT of the left leg s/p IVC filter in 07/2018-- superficial femoral vein which is a deep vein, new onset, has not had these symptoms before. Lower hgb and plts --> given decreased h/h, low thrombocytopenia, do not recommend anticoag --> appreciate Dr. Parekh and Mariam recs from prior admission --> smear reviewed # Pancytopenia, likely related to septicemia, appears new baseline 50-70k, several causes possible including viral, medication or intrabone marrow related. --> Cont to monitor plt count for improvement --> US abd: Mild left hydronephrosis. Possible left renal calyceal calculi. Negative for gallstones or dilated ducts Debris noted within the bladder --> Hep panel and HIV are both negative --> given extremely poor condition do not recommend a bone marrow biopsy, have discussed with family 08/01 with --> will rediscuss once sepsis resolves --> transfuse if plt <20k # Anemia of chronic disease. Multifactorial. Since admission Hgb has consistently remained between 8-9. --> Cont to monitor for stability --> Hgb goal above 7. Transfuse prn. --> IV iron completed prior admission and feritin is elevated # Dehydration. IVF has been administered --> improved # DM OOC --> A1C goal <7 --> Cont on insulin # Bacteremia/prior UTI. --> ID is following. Appreciate recs. --> Pt on IV abx. --> Cultures surveillance as per id # PEG placement 08/04. Greatly appreciate consultation! Subjective Constitutional: Denies: no symptoms, chills, diaphoresis, fever, malaise, weakness, other HEENT: Denies: no symptoms, eye pain, blurred vision, tearing, double vision, ear pain, ear discharge, nose pain, nose congestion, throat pain, throat swelling, mouth pain, mouth swelling, other Cardiovascular: Denies: no symptoms, chest pain, edema, irregular heart rate, lightheadedness, palpitations, syncope, other Respiratory: Denies: no symptoms, cough, orthopnea, shortness of breath, SOB with excertion, SOB at rest, sputum, stridor, wheezing, other Gastrointestinal/Abdominal: Denies: no symptoms, abdomen distended, abdominal pain, black stools, tarry stools, blood in stool, constipated, diarrhea, difficulty swallowing, nausea, poor appetite, poor fluid intake, rectal bleeding , vomiting, other Genitourinary: Denies: no symptoms, burning, discharge, frequency, flank pain, hematuria, incontinence, pain, urgency, other Neurologic/Psychiatric: Denies: no symptoms, anxiety, depressed, emotional problems, headache, numbness, paresthesia, pre-existing deficit, seizure, tingling, tremors, weakness, other Endocrine: Denies: no symptoms, excessive sweating, flushing, intolerance to cold, intolerance to heat, increased hunger, increased thirst, increased urine, unexplained weight gain, unexplained weight loss, other Hematologic/Lymphatic: Denies: no symptoms, anemia, easy bleeding, easy bruising, other Allergies: Coded Allergies: No Known Allergies (Unverified , 07/26/18) Subjective 12/02: seen by bedside, hgb 7.6, will transfuse as needed, plt trending down, GTF on hold, patient on BIPAP, has been tachycardic over night, abx per ID 12/04: Seen by bedside, out of ICU, tolerating TF, off BIPAP, plt trending down to 45, hgb 7.6. 12/05: Pt is resting in bed, hgb 6.6 and plt 39, received transfusion, no events. 12/06: seen by bedside,awake, comfortable, plt 43 12/07: awake, comfortable, plt remains low, hgb 8.8 Objective Last 24 Hour Vital Signs Date Time Temp Pulse Resp B/P (MAP) Pulse Ox O2 Delivery O2 Flow Rate FiO2 12/07/18 18:55 81 18 100 Nasal Cannula 2.0 28 12/07/18 16:00 85 12/07/18 16:00 Nasal Cannula 2.0 12/07/18 16:00 140/77 12/07/18 16:00 98.1 71 14 140/77 (98) 99 12/07/18 16:00 2.0 12/07/18 13:40 72 16 100 Nasal Cannula 28 12/07/18 13:32 30 12/07/18 13:32 71 18 100 Nasal Cannula 2.0 28 12/07/18 12:00 81 12/07/18 12:00 Nasal Cannula 2.0 12/07/18 12:00 98.0 79 14 126/62 (83) 99 12/07/18 12:00 2.0 12/07/18 09:00 69 146/74 12/07/18 08:00 97.9 75 14 139/69 (92) 99 12/07/18 08:00 Nasal Cannula 2.0 12/07/18 08:00 30 12/07/18 08:00 82 12/07/18 07:42 Nasal Cannula 2.0 28 12/07/18 07:42 100 Nasal Cannula 2.0 28 12/07/18 07:41 69 15 Nasal Cannula 2.0 28 12/07/18 07:41 69 16 100 Nasal Cannula 28 12/07/18 07:30 72 18 99 30 12/07/18 07:30 30 12/07/18 04:45 77 15 99 Facial 30 12/07/18 04:00 Nasal Cannula 2.0 12/07/18 04:00 30 12/07/18 04:00 98.1 71 14 146/74 (98) 99 12/07/18 03:25 78 12/07/18 03:11 72 14 99 Facial 30 12/07/18 01:07 73 15 100 Bi-pap 30 12/07/18 00:58 71 17 99 Facial 30 12/07/18 00:57 30 12/07/18 00:57 71 16 99 Bi-pap 30 12/07/18 00:00 Nasal Cannula 2.0 12/07/18 00:00 98.4 77 16 155/80 (105) 99 12/07/18 00:00 30 12/06/18 23:30 74 12/06/18 23:17 75 20 98 Facial 30 12/06/18 22:12 75 20 98 Facial 30 12/06/18 21:08 99 Nasal Cannula 2.0 28 12/06/18 21:08 Nasal Cannula 2.0 28 12/06/18 21:07 85 158/75 12/06/18 20:11 79 12/06/18 20:06 85 16 99 Nasal Cannula 2.0 28 12/06/18 20:00 98.8 84 20 158/75 (102) 99 12/06/18 20:00 2.0 12/06/18 20:00 Nasal Cannula 2.0 2/26/19 19:55 82 16 98 Nasal Cannula 2.0 28 Intake and Output 12/06/18 12/07/18 18:59 06:59 Intake Total 1530.0 ml 216.50 ml Output Total 1450 ml 1500 ml Balance 80.0 ml -1283.50 ml Free Water 330 ml IV Total 620.0 ml 121.50 ml Tube Feeding 580 ml 95 ml Output Urine Total 1450 ml 1500 ml # Bowel Movements 2 4 Laboratory Tests 12/07/18 04:50: White Blood Count 5.8, Red Blood Count 2.92L, Hemoglobin 8.8L, Hematocrit 27.3L , Mean Corpuscular Volume 94, Mean Corpuscular Hemoglobin 30.3, Mean Corpuscular Hemoglobin Concent 32.3, Red Cell Distribution Width 15.3H, Platelet Count 43L, Mean Platelet Volume 8.4, Neutrophils (%) (Auto) , Lymphocytes (%) (Auto) , Monocytes (%) (Auto) , Eosinophils (%) (Auto) , Basophils (%) (Auto) , Sodium Level 147H, Potassium Level 2.9L, Chloride Level 113H, Carbon Dioxide Level 30, Anion Gap 4L, Blood Urea Nitrogen 19H, Creatinine 0.6, Estimat Glomerular Filtration Rate , Glucose Level 145H, Calcium Level 8.4L, Phosphorus Level 2.6, Magnesium Level 1.9 Height (Feet): 5 Height (Inches): 3.00 Weight (Pounds): 122 Objective Physical Exam Vitals: reviewed Gen: confused, on bipap, unable to converse, sleepy Pulm: ++ crackles ++ bipap CV: RRR, no mgr Abd: soft, nt, nd ++ peg Ext: no swelling of lower ext Neuro: demented Dewayne Gayle MD Dec 07, 2018 19:31
[2018-12-07 20:00] VITALS: BP 150/81
[2018-12-07] MEDS: Dyna-Hex 2% Top Sol 2oz TOPIC SCH (21:12)
--- NOTE | 2018-12-07 22:01 | General Progress Note ---
Assessment/Plan Problem List: (1) UTI (urinary tract infection) ICD Codes: N39.0 - Urinary tract infection, site not specified SNOMED: 80806123 Qualifiers: Qualified Codes: N39.0 - Urinary tract infection, site not specified (2) Pneumonia ICD Codes: J18.9 - Pneumonia, unspecified organism SNOMED: 050632717, 291618456, 119865076 Qualifiers: Qualified Codes: J18.1 - Lobar pneumonia, unspecified organism (3) Elevated troponin ICD Codes: R74.8 - Abnormal levels of other serum enzymes SNOMED: 910889234, 970709389, 153765637 (4) Dehydration ICD Codes: E86.0 - Dehydration SNOMED: 62801892 (5) Hypokalemia ICD Codes: E87.6 - Hypokalemia SNOMED: 99597472 (6) Malnutrition ICD Codes: E46 - Unspecified protein-calorie malnutrition SNOMED: 19582841 (7) Dementia with behavioral disturbance ICD Codes: F03.91 - Unspecified dementia with behavioral disturbance SNOMED: 8362222457780 (8) Encephalopathy due to metabolic factor or toxin SNOMED: 307671668 (9) Anemia ICD Codes: D64.9 - Anemia, unspecified SNOMED: 186959254 (10) Sepsis ICD Codes: A41.9 - Sepsis, unspecified organism SNOMED: 34943189 Qualifiers: Qualified Codes: A41.9 - Sepsis, unspecified organism (11) Diabetic nephropathy 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 SNOMED: 505903273 Assessment/Plan lethargic tolerating peg feeding poor prognosis afebrile reviewed chart and meds sepsis .abx per id encephalopathy Subjective ROS Limited/Unobtainable: Yes Allergies: Coded Allergies: No Known Allergies (Unverified , 07/26/18) Objective Last 24 Hour Vital Signs Date Time Temp Pulse Resp B/P (MAP) Pulse Ox O2 Delivery O2 Flow Rate FiO2 12/07/18 21:12 84 154/86 12/07/18 19:10 28 12/07/18 19:10 82 16 100 Nasal Cannula 2.0 28 12/07/18 18:55 81 18 100 Nasal Cannula 2.0 12/07/18 16:00 85 12/07/18 16:00 Nasal Cannula 2.0 12/07/18 16:00 140/77 12/07/18 16:00 98.1 71 14 140/77 (98) 99 12/07/18 16:00 2.0 12/07/18 13:40 72 16 100 Nasal Cannula 28 12/07/18 13:32 30 12/07/18 13:32 71 18 100 Nasal Cannula 2.0 28 12/07/18 12:00 81 12/07/18 12:00 Nasal Cannula 2.0 12/07/18 12:00 98.0 79 14 126/62 (83) 99 12/07/18 12:00 2.0 12/07/18 09:00 69 146/74 12/07/18 08:00 97.9 75 14 139/69 (92) 99 12/07/18 08:00 Nasal Cannula 2.0 12/07/18 08:00 30 12/07/18 08:00 82 12/07/18 07:42 Nasal Cannula 2.0 28 12/07/18 07:42 100 Nasal Cannula 2.0 28 12/07/18 07:41 69 15 Nasal Cannula 2.0 28 12/07/18 07:41 69 16 100 Nasal Cannula 28 12/07/18 07:30 72 18 99 30 12/07/18 07:30 30 12/07/18 04:45 77 15 99 Facial 30 12/07/18 04:00 Nasal Cannula 2.0 12/07/18 04:00 30 12/07/18 04:00 98.1 71 14 146/74 (98) 99 12/07/18 03:25 78 12/07/18 03:11 72 14 99 Facial 30 12/07/18 01:07 73 15 100 Bi-pap 30 12/07/18 00:58 71 17 99 Facial 30 12/07/18 00:57 30 12/07/18 00:57 71 16 99 Bi-pap 30 12/07/18 00:00 Nasal Cannula 2.0 12/07/18 00:00 98.4 77 16 155/80 (105) 99 12/07/18 00:00 30 12/06/18 23:30 74 12/06/18 23:17 75 20 98 Facial 30 12/06/18 22:12 75 20 98 Facial 30 Intake and Output 12/06/18 12/07/18 18:59 06:59 Intake Total 1530.0 ml 216.50 ml Output Total 1450 ml 1500 ml Balance 80.0 ml -1283.50 ml Free Water 330 ml IV Total 620.0 ml 121.50 ml Tube Feeding 580 ml 95 ml Output Urine Total 1450 ml 1500 ml # Bowel Movements 2 4 Laboratory Tests 12/07/18 04:50: White Blood Count 5.8, Red Blood Count 2.92L, Hemoglobin 8.8L, Hematocrit 27.3L , Mean Corpuscular Volume 94, Mean Corpuscular Hemoglobin 30.3, Mean Corpuscular Hemoglobin Concent 32.3, Red Cell Distribution Width 15.3H, Platelet Count 43L, Mean Platelet Volume 8.4, Neutrophils (%) (Auto) , Lymphocytes (%) (Auto) , Monocytes (%) (Auto) , Eosinophils (%) (Auto) , Basophils (%) (Auto) , Sodium Level 147H, Potassium Level 2.9L, Chloride Level 113H, Carbon Dioxide Level 30, Anion Gap 4L, Blood Urea Nitrogen 19H, Creatinine 0.6, Estimat Glomerular Filtration Rate , Glucose Level 145H, Calcium Level 8.4L, Phosphorus Level 2.6, Magnesium Level 1.9 Height (Feet): 5 Height (Inches): 3.00 Weight (Pounds): 122 General Appearance: lethargic, confused Cardiovascular: normal rate Respiratory/Chest: lungs clear Abdomen: soft Yi Asencio MD Dec 07, 2018 22:01
[2018-12-08] VITALS: BP 142/80
[2018-12-08] MEDS: Albuterol/Ipratropium 3ml neb HHN SCH ×4 (00:38→19:46)
[2018-12-08 04:00] VITALS: BP 151/81
[2018-12-08 05:00] LABS: HEMATOCRIT 25.8 % (37.0-47.0); HEMOGLOBIN 8.3 G/DL (12.0-16.0); MEAN CORPUSCULAR VOLUME 96 FL (80-99); PLATELET COUNT 45 K/UL (150-450); RED BLOOD COUNT 2.69 M/UL (4.20-5.40); RED CELL DISTRIBUTION WIDTH 15.5 % (11.6-14.8); WHITE BLOOD COUNT 5.6 K/UL (4.8-10.8)
[2018-12-08 05:31] LABS: % IRON SATURATION 63 % (15-50); IRON 74 ug/dL (50-175); TOTAL IRON BINDING CAPACITY 117 ug/dL (250-450)
[2018-12-08] MEDS: Piperacillin/Tazobactam 3.375 GM in D5W 110 ML IVPB SCH ×3 (05:36→22:01)
[2018-12-08 05:37] LABS: ALANINE AMINOTRANSFERASE 26 U/L (12-78); ALBUMIN 1.5 G/DL (3.4-5.0); ALBUMIN/GLOBULIN RATIO 0.4 (1.0-2.7); ALKALINE PHOSPHATASE 62 U/L (46-116); ANION GAP 4 mmol/L (5-15); ASPARTATE AMINO TRANSFERASE 30 U/L (15-37); BILIRUBIN,TOTAL 0.5 MG/DL (0.2-1.0); BLOOD UREA NITROGEN 19 mg/dL (7-18); CALCIUM 8.5 MG/DL (8.5-10.1); CARBON DIOXIDE 30 MMOL/L (21-32); CHLORIDE 115 MMOL/L (98-107); CREATININE 0.7 MG/DL (0.55-1.30); FERRITIN 334 NG/ML (8-388); PHOSPHORUS 2.8 MG/DL (2.5-4.9); POTASSIUM 3.3 MMOL/L (3.5-5.1); SODIUM 149 MMOL/L (136-145)
[2018-12-08] MEDS: NovoLOG Insulin Flexpen SUBQ SCH ×4 (05:38→23:28)
--- NOTE | 2018-12-08 07:11 | NUR ---
HAND-OFF: Report given to Pino RN, pt. remains stable and nop signs of distress noted. Aware to f/u on abnormal labs.
--- NOTE | 2018-12-08 07:15 | NUR ---
NURSE NOTES: Report received from Andrea RN.Pt asleep noted no resp distress on 2 L NC,no signs of pain or discomfort,SR on the monito rGTF Glucerna 1.2 at 55 ml/hr no residual noted,Pt with Leiva cath to BSD draining yellow urine,IV site to RT Fem TLC intact ,skin warm and dry,SR up x2 HOB elevated,bed lockb in lowerst position,will continue with plans of care.
[2018-12-08 08:00] VITALS: BP 141/73
[2018-12-08] MEDS: Metoprolol 25mg tab ORAL SCH ×2 (09:21→20:37)
--- NOTE | 2018-12-08 10:00 | NUR ---
NURSE NOTES: Pt stable,no resp distress presented,turned and repositioned,
--- NOTE | 2018-12-08 10:55 | NUR ---
*-* INSURANCE *-* UPDATED CLINICALS HAVE BEEN FAXED TO: [facility] @ [phone]..NO BAIT PAINTER ASSIGNED AT THIS TIME... PLEASE FAX THE REVIEW/CLINICAL P- [phone] F- [phone]
--- NOTE | 2018-12-08 11:58 | GI Progress Note ---
Assessment/Plan Problems: (1) Feeding by G-tube ICD Codes: Z93.1 - Gastrostomy status SNOMED: 925682537, 676700489, 976121144 (2) Anemia ICD Codes: D64.9 - Anemia, unspecified SNOMED: 926601939 (3) Malnutrition ICD Codes: E46 - Unspecified protein-calorie malnutrition SNOMED: 67700688 (4) Dehydration ICD Codes: E86.0 - Dehydration SNOMED: 24583186 (5) Dementia with behavioral disturbance ICD Codes: F03.91 - Unspecified dementia with behavioral disturbance SNOMED: 5418087924788 Status: unchanged Status Narrative Discussed with Dr. Argueta. Assessment/Plan GTF OFF while on of BIPAP, now on NC GTFs per RD GT site care fu labs abx per ID supportive care fu The patient was seen and examined at bedside and all new and available data was reviewed in the patients chart. I agree with the above findings, impression and plan. (Patient seen earlier today. Signature stamp does not reflect patient encounter time.). - Edwardo Argueta MD Subjective Subjective limited Objective Last 24 Hour Vital Signs Date Time Temp Pulse Resp B/P (MAP) Pulse Ox O2 Delivery O2 Flow Rate FiO2 12/08/18 09:21 79 141/73 12/08/18 08:00 Nasal Cannula 2.0 12/08/18 08:00 98.2 79 18 141/73 (95) 100 12/08/18 08:00 80 12/08/18 08:00 2.0 12/08/18 07:16 96 Nasal Cannula 2.0 12/08/18 07:16 79 16 100 Nasal Cannula 2.0 12/08/18 07:16 Nasal Cannula 2.0 12/08/18 07:16 82 15 96 Nasal Cannula 2.0 28 12/08/18 07:16 28 12/08/18 04:00 98.7 81 20 151/81 (104) 100 12/08/18 04:00 2.0 12/08/18 04:00 Nasal Cannula 2.0 12/08/18 04:00 86 12/08/18 01:29 28 12/08/18 01:29 81 16 100 Nasal Cannula 2.0 12/08/18 00:39 81 16 100 Nasal Cannula 2.0 12/08/18 00:00 2.0 12/08/18 00:00 98.8 79 20 142/80 (100) 100 12/08/18 00:00 80 12/08/18 00:00 Nasal Cannula 2.0 12/07/18 21:12 84 154/86 12/07/18 20:00 98.8 84 20 150/81 (104) 100 12/07/18 20:00 81 12/07/18 20:00 30 12/07/18 20:00 Nasal Cannula 2.0 12/07/18 19:10 28 12/07/18 19:10 82 16 100 Nasal Cannula 2.0 28 12/07/18 18:55 100 Nasal Cannula 2.0 28 12/07/18 18:55 Nasal Cannula 2.0 28 12/07/18 18:55 81 18 100 Nasal Cannula 2.0 28 12/07/18 16:00 85 12/07/18 16:00 Nasal Cannula 2.0 12/07/18 16:00 140/77 12/07/18 16:00 98.1 71 14 140/77 (98) 99 12/07/18 16:00 2.0 12/07/18 13:40 72 16 100 Nasal Cannula 28 12/07/18 13:32 30 12/07/18 13:32 71 18 100 Nasal Cannula 2.0 12/07/18 12:00 81 12/07/18 12:00 Nasal Cannula 2.0 12/07/18 12:00 98.0 79 14 126/62 (83) 99 12/07/18 12:00 2.0 Intake and Output 12/07/18 12/08/18 19:00 07:00 Intake Total 500 ml 712.5 ml Output Total 2500 ml 900 ml Balance -2000 ml -187.5 ml IV Total 137.5 ml Tube Feeding 500 ml 575 ml Output Urine Total 2500 ml 900 ml Laboratory Tests Test 12/08/18 03:25 White Blood Count 5.6 K/UL (4.8-10.8) Red Blood Count 2.69 M/UL (4.20-5.40) L Hemoglobin 8.3 G/DL (12.0-16.0) L Hematocrit 25.8 % (37.0-47.0) L Mean Corpuscular Volume 96 FL (80-99) Mean Corpuscular Hemoglobin 30.9 PG (27.0-31.0) Mean Corpuscular Hemoglobin Concent 32.2 G/DL (32.0-36.0) Red Cell Distribution Width 15.5 % (11.6-14.8) H Platelet Count 45 K/UL (150-450) L Mean Platelet Volume 9.2 FL (6.5-10.1) Neutrophils (%) (Auto) % (45.0-75.0) Lymphocytes (%) (Auto) % (20.0-45.0) Monocytes (%) (Auto) % (1.0-10.0) Eosinophils (%) (Auto) % (0.0-3.0) Basophils (%) (Auto) % (0.0-2.0) Sodium Level 149 MMOL/L (136-145) H Potassium Level 3.3 MMOL/L (3.5-5.1) L Chloride Level 115 MMOL/L (98-107) H Carbon Dioxide Level 30 MMOL/L (21-32) Anion Gap 4 mmol/L (5-15) L Blood Urea Nitrogen 19 mg/dL (7-18) H Creatinine 0.7 MG/DL (0.55-1.30) Estimat Glomerular Filtration Rate mL/min (>60) Glucose Level 181 MG/DL (74-106) H Uric Acid 2.8 MG/DL (2.6-7.2) Calcium Level 8.5 MG/DL (8.5-10.1) Phosphorus Level 2.8 MG/DL (2.5-4.9) Magnesium Level 2.0 MG/DL (1.8-2.4) Iron Level 74 ug/dL (50-175) Total Iron Binding Capacity 117 ug/dL (250-450) L Percent Iron Saturation 63 % (15-50) H Unsaturated Iron Binding 43 ug/dL (112-346) L Ferritin 334 NG/ML (8-388) Total Bilirubin 0.5 MG/DL (0.2-1.0) Aspartate Amino Transf (AST/SGOT) 30 U/L (15-37) Alanine Aminotransferase (ALT/SGPT) 26 U/L (12-78) Alkaline Phosphatase 62 U/L (46-116) Total Protein 5.5 G/DL (6.4-8.2) L Albumin 1.5 G/DL (3.4-5.0) L Globulin 4.0 g/dL Albumin/Globulin Ratio 0.4 (1.0-2.7) L Vitamin B12 Level 1574 PG/ML (193-986) H Folate 38.1 NG/ML (8.6-58.9) Height (Feet): 5 Height (Inches): 3.00 Weight (Pounds): 123 General Appearance: WD/WN, no apparent distress, alert Cardiovascular: normal rate Respiratory/Chest: normal breath sounds, no respiratory distress Abdominal Exam: normal bowel sounds, non tender, soft, GT site - clean dry intake Extremities: non-tender Aidee Powell NP Dec 08, 2018 11:58
[2018-12-08 12:00] VITALS: BP 153/82
--- NOTE | 2018-12-08 12:07 | Nephrology Progress Note ---
Assessment/Plan Problem List: (1) Sepsis Assessment: low bp (2) Oliguria Assessment: due low bp (3) Anemia (4) Hypokalemia (5) Diabetic nephropathy (6) Elevated troponin I level Assessment Oliguria due to low BP Sepsis and low BP Elevated troponin UTI (urinary tract infection) Pneumonia Anemia worsening DM+ Proteinuria: Nephropathy s/p IVC Filter Acute encephalopathy HypoAlbuminemia Plan DC IV fluids K Phos , KCl , MgSo4 IV ordered Fluid challenge antibiotics avoid nephrotoxics anemia mac per orders Subjective ROS Limited/Unobtainable: No Constitutional: Reports: malaise, weakness Objective Objective Last 24 Hour Vital Signs Date Time Temp Pulse Resp B/P (MAP) Pulse Ox O2 Delivery O2 Flow Rate FiO2 12/08/18 09:21 79 141/73 12/08/18 08:00 Nasal Cannula 2.0 12/08/18 08:00 98.2 79 18 141/73 (95) 100 12/08/18 08:00 80 12/08/18 08:00 2.0 12/08/18 07:16 96 Nasal Cannula 2.0 28 12/08/18 07:16 79 16 100 Nasal Cannula 2.0 28 12/08/18 07:16 Nasal Cannula 2.0 28 12/08/18 07:16 82 15 96 Nasal Cannula 2.0 28 12/08/18 07:16 28 12/08/18 04:00 98.7 81 20 151/81 (104) 100 12/08/18 04:00 2.0 12/08/18 04:00 Nasal Cannula 2.0 12/08/18 04:00 86 12/08/18 01:29 28 12/08/18 01:29 81 16 100 Nasal Cannula 2.0 28 12/08/18 00:39 81 16 100 Nasal Cannula 2.0 28 12/08/18 00:00 2.0 12/08/18 00:00 98.8 79 20 142/80 (100) 100 12/08/18 00:00 80 12/08/18 00:00 Nasal Cannula 2.0 12/07/18 21:12 84 154/86 12/07/18 20:00 98.8 84 20 150/81 (104) 100 12/07/18 20:00 81 12/07/18 20:00 30 12/07/18 20:00 Nasal Cannula 2.0 12/07/18 19:10 12/07/18 19:10 82 16 100 Nasal Cannula 2.0 28 12/07/18 18:55 100 Nasal Cannula 2.0 28 12/07/18 18:55 Nasal Cannula 2.0 12/07/18 18:55 81 18 100 Nasal Cannula 2.0 28 12/07/18 16:00 85 12/07/18 16:00 Nasal Cannula 2.0 12/07/18 16:00 140/77 12/07/18 16:00 98.1 71 14 140/77 (98) 99 12/07/18 16:00 2.0 12/07/18 13:40 72 16 100 Nasal Cannula 28 12/07/18 13:32 30 12/07/18 13:32 71 18 100 Nasal Cannula 2.0 Intake and Output 12/07/18 12/08/18 19:00 07:00 Intake Total 500 ml 712.5 ml Output Total 2500 ml 900 ml Balance -2000 ml -187.5 ml IV Total 137.5 ml Tube Feeding 500 ml 575 ml Output Urine Total 2500 ml 900 ml Laboratory Tests 12/08/18 03:25: White Blood Count 5.6, Red Blood Count 2.69L, Hemoglobin 8.3L, Hematocrit 25.8L , Mean Corpuscular Volume 96, Mean Corpuscular Hemoglobin 30.9, Mean Corpuscular Hemoglobin Concent 32.2, Red Cell Distribution Width 15.5H, Platelet Count 45L, Mean Platelet Volume 9.2, Neutrophils (%) (Auto) , Lymphocytes (%) (Auto) , Monocytes (%) (Auto) , Eosinophils (%) (Auto) , Basophils (%) (Auto) , Sodium Level 149H, Potassium Level 3.3L, Chloride Level 115H, Carbon Dioxide Level 30, Anion Gap 4L, Blood Urea Nitrogen 19H, Creatinine 0.7, Estimat Glomerular Filtration Rate , Glucose Level 181H, Uric Acid 2.8, Calcium Level 8.5, Phosphorus Level 2.8, Magnesium Level 2.0, Iron Level 74, Total Iron Binding Capacity 117L, Percent Iron Saturation 63H, Unsaturated Iron Binding 43L, Ferritin 334, Total Bilirubin 0.5, Aspartate Amino Transf (AST/SGOT) 30, Alanine Aminotransferase (ALT/SGPT) 26, Alkaline Phosphatase 62, Total Protein 5.5L, Albumin 1.5L, Globulin 4.0, Albumin/ Globulin Ratio 0.4L, Vitamin B12 Level 1574H, Folate 38.1 Height (Feet): 5 Height (Inches): 3.00 Weight (Pounds): 123 General Appearance: no apparent distress Cardiovascular: normal rate Respiratory/Chest: decreased breath sounds Abdomen: soft Parvez Bergman MD Dec 08, 2018 12:07
--- NOTE | 2018-12-08 12:37 | Infectious Diseases Prog Note ---
Assessment/Plan Assessment/Plan A: 1. Proteus Sepsis 2. urinary tract infection with E.coli & Proteus 3. Atelectasis on chest x-ray, may have underlying pneumonia. 4. Diabetes mellitus type 2. 5. Dementia. 6. Pancytopenia. 7. Pressure ulcer 8. MRSA & VRE colonization RECOMMENDATION: 1. Continue Zosyn until expiration date tomorrow Subjective ROS Limited/Unobtainable: Yes Allergies: Coded Allergies: No Known Allergies (Unverified , 07/26/18) Objective Vital Signs Last 24 Hour Vital Signs Date Time Temp Pulse Resp B/P (MAP) Pulse Ox O2 Delivery O2 Flow Rate FiO2 12/08/18 09:21 79 141/73 12/08/18 08:00 Nasal Cannula 2.0 12/08/18 08:00 98.2 79 18 141/73 (95) 100 12/08/18 08:00 80 12/08/18 08:00 2.0 12/08/18 07:16 96 Nasal Cannula 2.0 28 12/08/18 07:16 79 16 100 Nasal Cannula 2.0 28 12/08/18 07:16 Nasal Cannula 2.0 28 12/08/18 07:16 82 15 96 Nasal Cannula 2.0 28 12/08/18 07:16 28 12/08/18 04:00 98.7 81 20 151/81 (104) 100 12/08/18 04:00 2.0 12/08/18 04:00 Nasal Cannula 2.0 12/08/18 04:00 86 12/08/18 01:29 28 12/08/18 01:29 81 16 100 Nasal Cannula 2.0 28 12/08/18 00:39 81 16 100 Nasal Cannula 2.0 28 12/08/18 00:00 2.0 12/08/18 00:00 98.8 79 20 142/80 (100) 100 12/08/18 00:00 80 12/08/18 00:00 Nasal Cannula 2.0 12/07/18 21:12 84 154/86 12/07/18 20:00 98.8 84 20 150/81 (104) 100 12/07/18 20:00 81 12/07/18 20:00 30 12/07/18 20:00 Nasal Cannula 2.0 12/07/18 19:10 28 12/07/18 19:10 82 16 100 Nasal Cannula 2.0 28 12/07/18 18:55 100 Nasal Cannula 2.0 28 12/07/18 18:55 Nasal Cannula 2.0 28 12/07/18 18:55 81 18 100 Nasal Cannula 2.0 28 12/07/18 16:00 85 12/07/18 16:00 Nasal Cannula 2.0 12/07/18 16:00 140/77 12/07/18 16:00 98.1 71 14 140/77 (98) 99 12/07/18 16:00 2.0 12/07/18 13:40 72 16 100 Nasal Cannula 28 12/07/18 13:32 30 12/07/18 13:32 71 18 100 Nasal Cannula 2.0 28 Height (Feet): 5 Height (Inches): 3.00 Weight (Pounds): 123 General Appearance: no acute distress HEENT: mucous membranes moist Respiratory/Chest: lungs clear, other - oxygen by nasal cannula Cardiovascular: normal rate Abdomen: soft, non tender, other - GT feeding Extremities: no edema Neurologic/Psychiatric: unresponsiveness Laboratory Tests Test 12/08/18 03:25 White Blood Count 5.6 K/UL (4.8-10.8) Red Blood Count 2.69 M/UL (4.20-5.40) L Hemoglobin 8.3 G/DL (12.0-16.0) L Hematocrit 25.8 % (37.0-47.0) L Mean Corpuscular Volume 96 FL (80-99) Mean Corpuscular Hemoglobin 30.9 PG (27.0-31.0) Mean Corpuscular Hemoglobin Concent 32.2 G/DL (32.0-36.0) Red Cell Distribution Width 15.5 % (11.6-14.8) H Platelet Count 45 K/UL (150-450) L Mean Platelet Volume 9.2 FL (6.5-10.1) Neutrophils (%) (Auto) % (45.0-75.0) Lymphocytes (%) (Auto) % (20.0-45.0) Monocytes (%) (Auto) % (1.0-10.0) Eosinophils (%) (Auto) % (0.0-3.0) Basophils (%) (Auto) % (0.0-2.0) Sodium Level 149 MMOL/L (136-145) H Potassium Level 3.3 MMOL/L (3.5-5.1) L Chloride Level 115 MMOL/L (98-107) H Carbon Dioxide Level 30 MMOL/L (21-32) Anion Gap 4 mmol/L (5-15) L Blood Urea Nitrogen 19 mg/dL (7-18) H Creatinine 0.7 MG/DL (0.55-1.30) Estimat Glomerular Filtration Rate mL/min (>60) Glucose Level 181 MG/DL (74-106) H Uric Acid 2.8 MG/DL (2.6-7.2) Calcium Level 8.5 MG/DL (8.5-10.1) Phosphorus Level 2.8 MG/DL (2.5-4.9) Magnesium Level 2.0 MG/DL (1.8-2.4) Iron Level 74 ug/dL (50-175) Total Iron Binding Capacity 117 ug/dL (250-450) L Percent Iron Saturation 63 % (15-50) H Unsaturated Iron Binding 43 ug/dL (112-346) L Ferritin 334 NG/ML (8-388) Total Bilirubin 0.5 MG/DL (0.2-1.0) Aspartate Amino Transf (AST/SGOT) 30 U/L (15-37) Alanine Aminotransferase (ALT/SGPT) 26 U/L (12-78) Alkaline Phosphatase 62 U/L (46-116) Total Protein 5.5 G/DL (6.4-8.2) L Albumin 1.5 G/DL (3.4-5.0) L Globulin 4.0 g/dL Albumin/Globulin Ratio 0.4 (1.0-2.7) L Vitamin B12 Level 1574 PG/ML (193-986) H Folate 38.1 NG/ML (8.6-58.9) Current Medications Medications (Trade) Dose Ordered Sig/Laure Route PRN Reason Start Time Stop Time Status Last Admin Dose Admin Acetaminophen (Tylenol) 650 mg Q4HR PRN NG Mild Pain/Temp > 100.5 12/03/18 17:00 01/01/19 04:14 Albuterol/ Ipratropium (Albuterol/ Ipratropium) 3 ml Q6HRT HHN 12/04/18 13:00 12/09/18 12:59 2/28/19 07:16 Chlorhexidine Gluconate (Georgina-Hex 2%) 1 applic DAILY@2000 TOPIC 12/03/18 20:00 12/31/18 19:59 12/07/18 21:12 Dextrose (Dextrose 50%) 25 ml Q30M PRN IV Hypoglycemia 12/03/18 13:30 12/31/18 12:29 Dextrose (Dextrose 50%) 50 ml Q30M PRN IV Hypoglycemia 12/03/18 13:30 12/31/18 12:29 Insulin Aspart (NovoLOG) Q6HR SUBQ 12/03/18 18:00 12/31/18 17:59 12/08/18 12:13 Metoprolol Tartrate (Lopressor) 25 mg Q12HR ORAL 12/03/18 17:00 01/02/19 16:59 12/08/18 09:21 Nitroglycerin (Ntg) 1 patch Q24H TDERMAL 12/03/18 16:00 01/01/19 15:59 12/07/18 16:00 Ondansetron HCl (Zofran) 4 mg Q6H PRN IVP Nausea & Vomiting 12/03/18 16:15 12/31/18 10:14 Piperacillin Sod/ Tazobactam Sod 3.375 gm/Dextrose 110 ml @ 27.5 mls/hr EVERY 8 HOURS IVPB 12/06/18 14:00 12/09/18 23:59 12/08/18 05:36 Potassium Chloride (K-Dur) 40 meq TWICE A DAY GT 12/08/18 18:00 01/06/19 17:59 Shimon Card MD Dec 08, 2018 12:37
--- NOTE | 2018-12-08 13:00 | NUR ---
NURSE NOTES: pt stable ,no resp distress,oral/care done,kept dry and clean.
--- NOTE | 2018-12-08 13:20 | Pulmonology Progress Note ---
Assessment/Plan Problems: (1) UTI (urinary tract infection) (2) Pneumonia (3) Sepsis (4) DVT (deep venous thrombosis) (5) Dementia with behavioral disturbance (6) Malnutrition (7) Anemia (8) Thrombocytopenia (9) Feeding by G-tube (10) Elevated troponin I level (11) S/P IVC filter Assessment/Plan Optimize pulmonary hygiene/mobilize as tolerated Titrate down FiO2 to keep SaO2 > 90% RTC and PRN HHN's Abx per ID - ZOSYN to finish tommorrow TF's as tolerated Monitor volumes and renal function Monitor CBC, transfuse as needed F/U medical cost consultant recs DVT Px: IVCF FC, continue to discuss GOC Subjective Allergies: Coded Allergies: No Known Allergies (Unverified , 07/26/18) Subjective AFVSS on 2L did not use BiPAP leta TF's no respiratory distress no cough no SOB no wheezing no F.C Objective Last 24 Hour Vital Signs Date Time Temp Pulse Resp B/P (MAP) Pulse Ox O2 Delivery O2 Flow Rate FiO2 12/08/18 12:43 68 14 98 Nasal Cannula 2.0 12/08/18 09:21 79 141/73 12/08/18 08:00 Nasal Cannula 2.0 12/08/18 08:00 98.2 79 18 141/73 (95) 100 12/08/18 08:00 80 12/08/18 08:00 2.0 12/08/18 07:16 96 Nasal Cannula 2.0 28 12/08/18 07:16 79 16 100 Nasal Cannula 2.0 28 12/08/18 07:16 Nasal Cannula 2.0 12/08/18 07:16 82 15 96 Nasal Cannula 2.0 28 12/08/18 07:16 28 12/08/18 04:00 98.7 81 20 151/81 (104) 100 12/08/18 04:00 2.0 12/08/18 04:00 Nasal Cannula 2.0 12/08/18 04:00 86 12/08/18 01:29 28 12/08/18 01:29 81 16 100 Nasal Cannula 2.0 28 12/08/18 00:39 81 16 100 Nasal Cannula 2.0 28 12/08/18 00:00 2.0 12/08/18 00:00 98.8 79 20 142/80 (100) 100 12/08/18 00:00 80 12/08/18 00:00 Nasal Cannula 2.0 12/07/18 21:12 84 154/86 12/07/18 20:00 98.8 84 20 150/81 (104) 100 12/07/18 20:00 81 12/07/18 20:00 30 12/07/18 20:00 Nasal Cannula 2.0 12/07/18 19:10 28 12/07/18 19:10 82 16 100 Nasal Cannula 2.0 28 12/07/18 18:55 100 Nasal Cannula 2.0 28 12/07/18 18:55 Nasal Cannula 2.0 28 12/07/18 18:55 81 18 100 Nasal Cannula 2.0 28 12/07/18 16:00 85 12/07/18 16:00 Nasal Cannula 2.0 12/07/18 16:00 140/77 12/07/18 16:00 98.1 71 14 140/77 (98) 99 12/07/18 16:00 2.0 12/07/18 13:40 72 16 100 Nasal Cannula 28 12/07/18 13:32 30 12/07/18 13:32 71 18 100 Nasal Cannula 2.0 28 Intake and Output 12/07/18 12/08/18 19:00 07:00 Intake Total 500 ml 712.5 ml Output Total 2500 ml 900 ml Balance -2000 ml -187.5 ml IV Total 137.5 ml Tube Feeding 500 ml 575 ml Output Urine Total 2500 ml 900 ml General Appearance: no acute distress, cachetic HEENT: normocephalic, atraumatic, anicteric, mucous membranes moist Respiratory/Chest: chest wall non-tender, lungs clear, normal breath sounds, no respiratory distress Cardiovascular: normal peripheral pulses, normal rate, regular rhythm Abdomen: normal bowel sounds, soft, non tender, no organomegaly, non distended , no mass, other - GT Extremities: no cyanosis, no clubbing, no edema Laboratory Tests 12/08/18 03:25: White Blood Count 5.6, Red Blood Count 2.69L, Hemoglobin 8.3L, Hematocrit 25.8L , Mean Corpuscular Volume 96, Mean Corpuscular Hemoglobin 30.9, Mean Corpuscular Hemoglobin Concent 32.2, Red Cell Distribution Width 15.5H, Platelet Count 45L, Mean Platelet Volume 9.2, Neutrophils (%) (Auto) , Lymphocytes (%) (Auto) , Monocytes (%) (Auto) , Eosinophils (%) (Auto) , Basophils (%) (Auto) , Sodium Level 149H, Potassium Level 3.3L, Chloride Level 115H, Carbon Dioxide Level 30, Anion Gap 4L, Blood Urea Nitrogen 19H, Creatinine 0.7, Estimat Glomerular Filtration Rate , Glucose Level 181H, Uric Acid 2.8, Calcium Level 8.5, Phosphorus Level 2.8, Magnesium Level 2.0, Iron Level 74, Total Iron Binding Capacity 117L, Percent Iron Saturation 63H, Unsaturated Iron Binding 43L, Ferritin 334, Total Bilirubin 0.5, Aspartate Amino Transf (AST/SGOT) 30, Alanine Aminotransferase (ALT/SGPT) 26, Alkaline Phosphatase 62, Total Protein 5.5L, Albumin 1.5L, Globulin 4.0, Albumin/ Globulin Ratio 0.4L, Vitamin B12 Level 1574H, Folate 38.1 Current Medications Medications (Trade) Dose Ordered Sig/Laure Route PRN Reason Start Time Stop Time Status Last Admin Dose Admin Acetaminophen (Tylenol) 650 mg Q4HR PRN NG Mild Pain/Temp > 100.5 12/03/18 17:00 01/01/19 04:14 Albuterol/ Ipratropium (Albuterol/ Ipratropium) 3 ml Q6HRT HHN 12/04/18 13:00 12/09/18 12:59 12/08/18 12:43 Chlorhexidine Gluconate (Georgina-Hex 2%) 1 applic DAILY@2000 TOPIC 12/03/18 20:00 12/31/18 19:59 12/07/18 21:12 Dextrose (Dextrose 50%) 25 ml Q30M PRN IV Hypoglycemia 12/03/18 13:30 12/31/18 12:29 Dextrose (Dextrose 50%) 50 ml Q30M PRN IV Hypoglycemia 12/03/18 13:30 12/31/18 12:29 Insulin Aspart (NovoLOG) Q6HR SUBQ 12/03/18 18:00 12/31/18 17:59 12/08/18 12:13 Metoprolol Tartrate (Lopressor) 25 mg Q12HR ORAL 12/03/18 17:00 01/02/19 16:59 12/08/18 09:21 Nitroglycerin (Ntg) 1 patch Q24H TDERMAL 12/03/18 16:00 01/01/19 15:59 12/07/18 16:00 Ondansetron HCl (Zofran) 4 mg Q6H PRN IVP Nausea & Vomiting 12/03/18 16:15 12/31/18 10:14 Piperacillin Sod/ Tazobactam Sod 3.375 gm/Dextrose 110 ml @ 27.5 mls/hr EVERY 8 HOURS IVPB 12/06/18 14:00 12/09/18 23:59 12/08/18 05:36 Potassium Chloride (K-Dur) 40 meq TWICE A DAY GT 12/08/18 18:00 01/06/19 17:59 Foreign Parekh MD Dec 08, 2018 13:20
--- NOTE | 2018-12-08 14:03 | General Progress Note ---
Assessment/Plan Problem List: (1) UTI (urinary tract infection) ICD Codes: N39.0 - Urinary tract infection, site not specified SNOMED: 98966139 Qualifiers: Qualified Codes: N39.0 - Urinary tract infection, site not specified (2) Pneumonia ICD Codes: J18.9 - Pneumonia, unspecified organism SNOMED: 711475583, 754893633, 550247409 Qualifiers: Qualified Codes: J18.1 - Lobar pneumonia, unspecified organism (3) Elevated troponin ICD Codes: R74.8 - Abnormal levels of other serum enzymes SNOMED: 363892771, 576449078, 883484516 (4) Dehydration ICD Codes: E86.0 - Dehydration SNOMED: 95269925 (5) Hypokalemia ICD Codes: E87.6 - Hypokalemia SNOMED: 85269050 (6) Malnutrition ICD Codes: E46 - Unspecified protein-calorie malnutrition SNOMED: 28185146 (7) Dementia with behavioral disturbance ICD Codes: F03.91 - Unspecified dementia with behavioral disturbance SNOMED: 6952999276031 (8) Encephalopathy due to metabolic factor or toxin SNOMED: 087114505 (9) Anemia ICD Codes: D64.9 - Anemia, unspecified SNOMED: 334559566 (10) Sepsis ICD Codes: A41.9 - Sepsis, unspecified organism SNOMED: 15599301 Qualifiers: Qualified Codes: A41.9 - Sepsis, unspecified organism (11) Diabetic nephropathy 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 SNOMED: 711951097 Status: unchanged Assessment/Plan lethargic peg anemia .h/h is stable low k.replacement per renal afebrile reviewed chart and meds sepsis .abx per id encephalopathy Subjective ROS Limited/Unobtainable: Yes Allergies: Coded Allergies: No Known Allergies (Unverified , 07/26/18) Objective Last 24 Hour Vital Signs Date Time Temp Pulse Resp B/P (MAP) Pulse Ox O2 Delivery O2 Flow Rate FiO2 12/08/18 12:53 66 15 100 Nasal Cannula 2.0 12/08/18 12:43 68 14 98 Nasal Cannula 2.0 28 12/08/18 09:21 79 141/73 12/08/18 08:00 Nasal Cannula 2.0 12/08/18 08:00 98.2 79 18 141/73 (95) 100 12/08/18 08:00 80 12/08/18 08:00 2.0 12/08/18 07:16 96 Nasal Cannula 2.0 28 12/08/18 07:16 79 16 100 Nasal Cannula 2.0 28 12/08/18 07:16 Nasal Cannula 2.0 28 12/08/18 07:16 82 15 96 Nasal Cannula 2.0 12/08/18 07:16 12/08/18 04:00 98.7 81 20 151/81 (104) 100 12/08/18 04:00 2.0 12/08/18 04:00 Nasal Cannula 2.0 12/08/18 04:00 86 12/08/18 01:29 28 12/08/18 01:29 81 16 100 Nasal Cannula 2.0 12/08/18 00:39 81 16 100 Nasal Cannula 2.0 28 12/08/18 00:00 2.0 12/08/18 00:00 98.8 79 20 142/80 (100) 100 12/08/18 00:00 80 12/08/18 00:00 Nasal Cannula 2.0 12/07/18 21:12 84 154/86 12/07/18 20:00 98.8 84 20 150/81 (104) 100 12/07/18 20:00 81 12/07/18 20:00 30 12/07/18 20:00 Nasal Cannula 2.0 12/07/18 19:10 28 12/07/18 19:10 82 16 100 Nasal Cannula 2.0 12/07/18 18:55 100 Nasal Cannula 2.0 12/07/18 18:55 Nasal Cannula 2.0 12/07/18 18:55 81 18 100 Nasal Cannula 2.0 12/07/18 16:00 85 12/07/18 16:00 Nasal Cannula 2.0 12/07/18 16:00 140/77 12/07/18 16:00 98.1 71 14 140/77 (98) 99 12/07/18 16:00 2.0 Intake and Output 12/07/18 12/08/18 19:00 07:00 Intake Total 500 ml 712.5 ml Output Total 2500 ml 900 ml Balance -2000 ml -187.5 ml IV Total 137.5 ml Tube Feeding 500 ml 575 ml Output Urine Total 2500 ml 900 ml Laboratory Tests 12/08/18 03:25: White Blood Count 5.6, Red Blood Count 2.69L, Hemoglobin 8.3L, Hematocrit 25.8L , Mean Corpuscular Volume 96, Mean Corpuscular Hemoglobin 30.9, Mean Corpuscular Hemoglobin Concent 32.2, Red Cell Distribution Width 15.5H, Platelet Count 45L, Mean Platelet Volume 9.2, Neutrophils (%) (Auto) , Lymphocytes (%) (Auto) , Monocytes (%) (Auto) , Eosinophils (%) (Auto) , Basophils (%) (Auto) , Sodium Level 149H, Potassium Level 3.3L, Chloride Level 115H, Carbon Dioxide Level 30, Anion Gap 4L, Blood Urea Nitrogen 19H, Creatinine 0.7, Estimat Glomerular Filtration Rate , Glucose Level 181H, Uric Acid 2.8, Calcium Level 8.5, Phosphorus Level 2.8, Magnesium Level 2.0, Iron Level 74, Total Iron Binding Capacity 117L, Percent Iron Saturation 63H, Unsaturated Iron Binding 43L, Ferritin 334, Total Bilirubin 0.5, Aspartate Amino Transf (AST/SGOT) 30, Alanine Aminotransferase (ALT/SGPT) 26, Alkaline Phosphatase 62, Total Protein 5.5L, Albumin 1.5L, Globulin 4.0, Albumin/ Globulin Ratio 0.4L, Vitamin B12 Level 1574H, Folate 38.1 Height (Feet): 5 Height (Inches): 3.00 Weight (Pounds): 123 General Appearance: lethargic, confused Cardiovascular: no JVD Respiratory/Chest: lungs clear Yi Asencio MD Dec 08, 2018 14:03
--- NOTE | 2018-12-08 15:27 | NUR ---
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 98.1 HR 73 RR 20 B/P 153/82 2L NC NA 149 K 3.3 BUN 19 H/H 8.3/25.8 IS: ZOSYN IV ALB HHN K-DUR PO STEP DON STATUS
[2018-12-08 16:00] VITALS: BP 163/81
[2018-12-08] MEDS: Nitroglycerin Patch 0.4mg TDERMAL SCH (16:37)
--- NOTE | 2018-12-08 19:15 | NUR ---
HAND-OFF: Report given to Andrea DYKES.
--- NOTE | 2018-12-08 19:20 | NUR ---
NURSE NOTES: Received report from Pino RN, pt. in bed obtunded with eyes open- non-verbal. Cardiac monitoring on- sinus rhythm on monitor, no signs or symptoms of acute cardiac or respiratory distress noted, bed in lowest position and call light within easy reach, bed alarm on, side rails up x's 3 and safety brakes engaged, Pt. appears to be tolerating current NC settings well at 2L- no distress noted, pt. running Glucerna 1.2 at 55cc/hr- no residual noted. Leiva intact and draining to gravity, comfort measures provided, Rt. Femoral TLC Intact and patent- TKO, Oral care provided, safety measures continued, will continue with plan of care and continue to monitor patient.
[2018-12-08 20:00] VITALS: BP 150/76
[2018-12-08] MEDS: Dyna-Hex 2% Top Sol 2oz TOPIC SCH (20:36)
--- NOTE | 2018-12-08 20:44 | General Progress Note ---
Assessment/Plan Assessment/Plan Assessment/Recs: # DVT of the left leg s/p IVC filter in 07/2018-- superficial femoral vein which is a deep vein, new onset, has not had these symptoms before. Lower hgb and plts --> given decreased h/h, low thrombocytopenia, do not recommend anticoag --> appreciate Dr. Parekh and Mariam recs from prior admission --> smear reviewed # Pancytopenia, likely related to septicemia, appears new baseline 50-70k, several causes possible including viral, medication or intrabone marrow related. --> Cont to monitor plt count for improvement --> US abd: Mild left hydronephrosis. Possible left renal calyceal calculi. Negative for gallstones or dilated ducts Debris noted within the bladder --> Hep panel and HIV are both negative --> given extremely poor condition do not recommend a bone marrow biopsy, have discussed with family 08/01 with --> will rediscuss once sepsis resolves --> transfuse if plt <20k # Anemia of chronic disease. Multifactorial. Since admission Hgb has consistently remained between 8-9. --> Cont to monitor for stability --> Hgb goal above 7. Transfuse prn. --> IV iron completed prior admission and feritin is elevated # Dehydration. IVF has been administered --> improved # DM OOC --> A1C goal <7 --> Cont on insulin # Bacteremia/prior UTI. --> ID is following. Appreciate recs. --> Pt on IV abx. --> Cultures surveillance as per id # PEG placement 08/04. Greatly appreciate consultation! Subjective Constitutional: Denies: no symptoms, chills, diaphoresis, fever, malaise, weakness, other HEENT: Denies: no symptoms, eye pain, blurred vision, tearing, double vision, ear pain, ear discharge, nose pain, nose congestion, throat pain, throat swelling, mouth pain, mouth swelling, other Cardiovascular: Denies: no symptoms, chest pain, edema, irregular heart rate, lightheadedness, palpitations, syncope, other Respiratory: Denies: no symptoms, cough, orthopnea, shortness of breath, SOB with excertion, SOB at rest, sputum, stridor, wheezing, other Gastrointestinal/Abdominal: Denies: no symptoms, abdomen distended, abdominal pain, black stools, tarry stools, blood in stool, constipated, diarrhea, difficulty swallowing, nausea, poor appetite, poor fluid intake, rectal bleeding , vomiting, other Genitourinary: Denies: no symptoms, burning, discharge, frequency, flank pain, hematuria, incontinence, pain, urgency, other Neurologic/Psychiatric: Denies: no symptoms, anxiety, depressed, emotional problems, headache, numbness, paresthesia, pre-existing deficit, seizure, tingling, tremors, weakness, other Endocrine: Denies: no symptoms, excessive sweating, flushing, intolerance to cold, intolerance to heat, increased hunger, increased thirst, increased urine, unexplained weight gain, unexplained weight loss, other Hematologic/Lymphatic: Denies: no symptoms, anemia, easy bleeding, easy bruising, other Allergies: Coded Allergies: No Known Allergies (Unverified , 07/26/18) Subjective 12/02: seen by bedside, hgb 7.6, will transfuse as needed, plt trending down, GTF on hold, patient on BIPAP, has been tachycardic over night, abx per ID 12/04: Seen by bedside, out of ICU, tolerating TF, off BIPAP, plt trending down to 45, hgb 7.6. 12/05: Pt is resting in bed, hgb 6.6 and plt 39, received transfusion, no events. 12/06: seen by bedside,awake, comfortable, plt 43 12/07: awake, comfortable, plt remains low, hgb 8.8 12/08: seen by bedside, awake, comfortable, hgb 8.3, no events Objective Last 24 Hour Vital Signs Date Time Temp Pulse Resp B/P (MAP) Pulse Ox O2 Delivery O2 Flow Rate FiO2 12/08/18 20:37 74 150/76 12/08/18 19:54 73 16 100 Nasal Cannula 2.0 12/08/18 19:46 72 16 99 Nasal Cannula 2.0 28 12/08/18 19:18 Nasal Cannula 2.0 28 12/08/18 19:18 99 Nasal Cannula 2.0 28 12/08/18 16:37 153/82 12/08/18 16:10 2.0 12/08/18 16:00 68 12/08/18 16:00 97.7 77 18 163/81 (108) 98 12/08/18 16:00 Nasal Cannula 2.0 12/08/18 12:53 66 15 100 Nasal Cannula 2.0 28 12/08/18 12:43 68 14 98 Nasal Cannula 2.0 28 12/08/18 12:00 Nasal Cannula 2.0 12/08/18 12:00 73 12/08/18 12:00 2.0 12/08/18 12:00 98.1 76 20 153/82 (105) 97 12/08/18 09:21 79 141/73 12/08/18 08:00 Nasal Cannula 2.0 12/08/18 08:00 98.2 79 18 141/73 (95) 100 12/08/18 08:00 80 12/08/18 08:00 2.0 12/08/18 07:16 96 Nasal Cannula 2.0 28 12/08/18 07:16 79 16 100 Nasal Cannula 2.0 28 12/08/18 07:16 Nasal Cannula 2.0 28 12/08/18 07:16 82 15 96 Nasal Cannula 2.0 12/08/18 07:16 12/08/18 04:00 98.7 81 20 151/81 (104) 100 12/08/18 04:00 2.0 12/08/18 04:00 Nasal Cannula 2.0 12/08/18 04:00 86 12/08/18 01:29 28 12/08/18 01:29 81 16 100 Nasal Cannula 2.0 28 12/08/18 00:39 81 16 100 Nasal Cannula 2.0 28 12/08/18 00:00 2.0 12/08/18 00:00 98.8 79 20 142/80 (100) 100 12/08/18 00:00 80 12/08/18 00:00 Nasal Cannula 2.0 12/07/18 21:12 84 154/86 Intake and Output 12/07/18 12/08/18 19:00 07:00 Intake Total 500 ml 867.5 ml Output Total 2500 ml 900 ml Balance -2000 ml -32.5 ml Free Water 100 ml IV Total 137.5 ml Tube Feeding 500 ml 630 ml Output Urine Total 2500 ml 900 ml Laboratory Tests 12/08/18 03:25: White Blood Count 5.6, Red Blood Count 2.69L, Hemoglobin 8.3L, Hematocrit 25.8L , Mean Corpuscular Volume 96, Mean Corpuscular Hemoglobin 30.9, Mean Corpuscular Hemoglobin Concent 32.2, Red Cell Distribution Width 15.5H, Platelet Count 45L, Mean Platelet Volume 9.2, Neutrophils (%) (Auto) , Lymphocytes (%) (Auto) , Monocytes (%) (Auto) , Eosinophils (%) (Auto) , Basophils (%) (Auto) , Sodium Level 149H, Potassium Level 3.3L, Chloride Level 115H, Carbon Dioxide Level 30, Anion Gap 4L, Blood Urea Nitrogen 19H, Creatinine 0.7, Estimat Glomerular Filtration Rate , Glucose Level 181H, Uric Acid 2.8, Calcium Level 8.5, Phosphorus Level 2.8, Magnesium Level 2.0, Iron Level 74, Total Iron Binding Capacity 117L, Percent Iron Saturation 63H, Unsaturated Iron Binding 43L, Ferritin 334, Total Bilirubin 0.5, Aspartate Amino Transf (AST/SGOT) 30, Alanine Aminotransferase (ALT/SGPT) 26, Alkaline Phosphatase 62, Total Protein 5.5L, Albumin 1.5L, Globulin 4.0, Albumin/ Globulin Ratio 0.4L, Vitamin B12 Level 1574H, Folate 38.1 Height (Feet): 5 Height (Inches): 3.00 Weight (Pounds): 123 Objective Physical Exam Vitals: reviewed Gen: confused, on bipap, unable to converse, sleepy Pulm: ++ crackles ++ bipap CV: RRR, no mgr Abd: soft, nt, nd ++ peg Ext: no swelling of lower ext Neuro: demented Dewayne Gayle MD Dec 08, 2018 20:44
--- NOTE | 2018-12-08 21:06 | Cardiology Progress Note ---
Assessment/Plan Assessment/Plan 1. Septic shock, most likely due to bilateral pneumonia as well as associated effusion. Normal LV systolic function with grade I LVDD. 2. Slight elevation of troponin I level could be secondary to sepsis although demand ischemia situation cannot be ruled out. 3. Prerenal azotemia, resolved. 4. DVT status post IVC filter. 5. History of metabolic encephalopathy. 6. History of dementia. 7. History of CVA. 8. History of pancytopenia. 9. Sinus tachycardia, resolved. Subjective Subjective Sinus rhythm at rate of 74. On NC oxygen. Objective Last 24 Hour Vital Signs Date Time Temp Pulse Resp B/P (MAP) Pulse Ox O2 Delivery O2 Flow Rate FiO2 12/08/18 20:37 74 150/76 12/08/18 20:00 98.4 74 16 150/76 (100) 100 12/08/18 19:54 73 16 100 Nasal Cannula 2.0 12/08/18 19:46 72 16 99 Nasal Cannula 2.0 12/08/18 19:18 Nasal Cannula 2.0 12/08/18 19:18 99 Nasal Cannula 2.0 12/08/18 16:37 153/82 12/08/18 16:10 2.0 12/08/18 16:00 68 12/08/18 16:00 97.7 77 18 163/81 (108) 98 12/08/18 16:00 Nasal Cannula 2.0 12/08/18 12:53 66 15 100 Nasal Cannula 2.0 12/08/18 12:43 68 14 98 Nasal Cannula 2.0 12/08/18 12:00 Nasal Cannula 2.0 12/08/18 12:00 73 12/08/18 12:00 2.0 12/08/18 12:00 98.1 76 20 153/82 (105) 97 12/08/18 09:21 79 141/73 12/08/18 08:00 Nasal Cannula 2.0 12/08/18 08:00 98.2 79 18 141/73 (95) 100 12/08/18 08:00 80 12/08/18 08:00 2.0 12/08/18 07:16 96 Nasal Cannula 2.0 12/08/18 07:16 79 16 100 Nasal Cannula 2.0 12/08/18 07:16 Nasal Cannula 2.0 28 12/08/18 07:16 82 15 96 Nasal Cannula 2.0 28 12/08/18 07:16 12/08/18 04:00 98.7 81 20 151/81 (104) 100 12/08/18 04:00 2.0 12/08/18 04:00 Nasal Cannula 2.0 12/08/18 04:00 86 12/08/18 01:29 28 12/08/18 01:29 81 16 100 Nasal Cannula 2.0 28 12/08/18 00:39 81 16 100 Nasal Cannula 2.0 28 12/08/18 00:00 2.0 12/08/18 00:00 98.8 79 20 142/80 (100) 100 12/08/18 00:00 80 12/08/18 00:00 Nasal Cannula 2.0 12/07/18 21:12 84 154/86 Intake and Output 12/07/18 12/08/18 19:00 07:00 Intake Total 500 ml 867.5 ml Output Total 2500 ml 900 ml Balance -2000 ml -32.5 ml Free Water 100 ml IV Total 137.5 ml Tube Feeding 500 ml 630 ml Output Urine Total 2500 ml 900 ml 2D Echo: EF55%, Large left pleural eff., Grade I LVDD, Mild AR/Mod MR/IN,RVSP 37mmHg Laboratory Tests Test 12/08/18 03:25 White Blood Count 5.6 K/UL (4.8-10.8) Red Blood Count 2.69 M/UL (4.20-5.40) L Hemoglobin 8.3 G/DL (12.0-16.0) L Hematocrit 25.8 % (37.0-47.0) L Mean Corpuscular Volume 96 FL (80-99) Mean Corpuscular Hemoglobin 30.9 PG (27.0-31.0) Mean Corpuscular Hemoglobin Concent 32.2 G/DL (32.0-36.0) Red Cell Distribution Width 15.5 % (11.6-14.8) H Platelet Count 45 K/UL (150-450) L Mean Platelet Volume 9.2 FL (6.5-10.1) Neutrophils (%) (Auto) % (45.0-75.0) Lymphocytes (%) (Auto) % (20.0-45.0) Monocytes (%) (Auto) % (1.0-10.0) Eosinophils (%) (Auto) % (0.0-3.0) Basophils (%) (Auto) % (0.0-2.0) Sodium Level 149 MMOL/L (136-145) H Potassium Level 3.3 MMOL/L (3.5-5.1) L Chloride Level 115 MMOL/L (98-107) H Carbon Dioxide Level 30 MMOL/L (21-32) Anion Gap 4 mmol/L (5-15) L Blood Urea Nitrogen 19 mg/dL (7-18) H Creatinine 0.7 MG/DL (0.55-1.30) Estimat Glomerular Filtration Rate mL/min (>60) Glucose Level 181 MG/DL (74-106) H Uric Acid 2.8 MG/DL (2.6-7.2) Calcium Level 8.5 MG/DL (8.5-10.1) Phosphorus Level 2.8 MG/DL (2.5-4.9) Magnesium Level 2.0 MG/DL (1.8-2.4) Iron Level 74 ug/dL (50-175) Total Iron Binding Capacity 117 ug/dL (250-450) L Percent Iron Saturation 63 % (15-50) H Unsaturated Iron Binding 43 ug/dL (112-346) L Ferritin 334 NG/ML (8-388) Total Bilirubin 0.5 MG/DL (0.2-1.0) Aspartate Amino Transf (AST/SGOT) 30 U/L (15-37) Alanine Aminotransferase (ALT/SGPT) 26 U/L (12-78) Alkaline Phosphatase 62 U/L (46-116) Total Protein 5.5 G/DL (6.4-8.2) L Albumin 1.5 G/DL (3.4-5.0) L Globulin 4.0 g/dL Albumin/Globulin Ratio 0.4 (1.0-2.7) L Vitamin B12 Level 1574 PG/ML (193-986) H Folate 38.1 NG/ML (8.6-58.9) Objective HEENT: Normocephalic, atraumatic, PERRLA, EOMI. On rebreathing mask. NECK: JVP <5cm, No carotid bruit. HEART: Normal S1S2, no murmurs, gallops or rubs, Tachycardic. LUNGS: Decrease BS in the left base. ABDOMEN: Soft and nontender, non-distended, no HSM, + BS. EXTREMITIES: No edema, clubbing or cyanosis. Deepak Aldana MD Dec 08, 2018 21:06
[2018-12-09] VITALS: BP 148/77
[2018-12-09] MEDS: Albuterol/Ipratropium 3ml neb HHN SCH ×2 (01:29→06:51)
[2018-12-09 04:00] VITALS: BP 149/78
[2018-12-09] MEDS: Piperacillin/Tazobactam 3.375 GM in D5W 110 ML IVPB SCH ×3 (05:09→22:32)
[2018-12-09] MEDS: NovoLOG Insulin Flexpen SUBQ SCH ×4 (05:11→23:10)
[2018-12-09 06:33] LABS: HEMATOCRIT 27.7 % (37.0-47.0); HEMOGLOBIN 8.8 G/DL (12.0-16.0); MEAN CORPUSCULAR VOLUME 97 FL (80-99); PLATELET COUNT 37 K/UL (150-450); RED BLOOD COUNT 2.86 M/UL (4.20-5.40); RED CELL DISTRIBUTION WIDTH 16.5 % (11.6-14.8); WHITE BLOOD COUNT 5.6 K/UL (4.8-10.8)
--- NOTE | 2018-12-09 07:02 | NUR ---
HAND-OFF: Report given to Pino RN, pt. stable and no signs of distress noted.
[2018-12-09 07:06] LABS: ANION GAP 3 mmol/L (5-15); BLOOD UREA NITROGEN 16 mg/dL (7-18); CALCIUM 8.6 MG/DL (8.5-10.1); CARBON DIOXIDE 32 MMOL/L (21-32); CHLORIDE 114 MMOL/L (98-107); CREATININE 0.7 MG/DL (0.55-1.30); POTASSIUM 3.7 MMOL/L (3.5-5.1); SODIUM 149 MMOL/L (136-145)
--- NOTE | 2018-12-09 07:10 | NUR ---
NURSE NOTES: Report received from Akila Hurt RN.Pt resting in bed,asleep noted no resp distress on 2L NC,no signs of pain or discomfort,SR on the monitor,GTF Glucerna 1.2 at 55ml/hr,Leiva cath draining yellow urine,IV site to RFem TLC intact ,skin warm and dry SR up x2 HOB elevated bed lock in lowest position will continue with plans of care.
[2018-12-09 08:00] VITALS: BP 148/72
--- NOTE | 2018-12-09 08:20 | NUR ---
RD ASSESSMENT & RECOMMENDATIONS SEE CARE ACTIVITY FOR COMPLETE ASSESSMENT DAILY ESTIMATED NEEDS: Needs based on Wound, underweight, Pumonary / 44.5kg 30-37 kcals/kg 1335-1646kcal total kcals 1.25-1.5 g protein/kg 56-67 g total protein 25-30 mL/kg 1300-0085 total fluid mLs NUTRITION DIAGNOSIS: 1) Increased kcal and protein needs R/T underweight status and wound healing as evidenced by pt w/ generalized moderate wasting, @ 89% IBW w/ underweight BMI per guidelines, admitted w/ partial thickness pressure injurty @ sacrum. 2) Swallowing difficulty R/T dysphagia as evidenced by pt is PEG dep. 3) Altered nutrition related lab values R/T diabetes as evidenced by elev BGs and POC glu (200's, 300,s -> 196 186 152 160 192 improved). CURRENT TF:Glucerna 1.2 @55ml/hr x24 hrs ENTERAL NUTRITION RECOMMENDATIONS: Glucerna 1.2 @55ml/hr x24 hrs to provide 1320ml, 1584 kcal, 79g prot, 1063ml free fluid * Maintain current TF * Flush per MD/ HOB over 30 degrees ADDITIONAL RECOMMENDATIONS: * Per SNF: ht=62", wt=98lbs on 11/16/18 * Re-calibrate bedscale wt, rec weekly wt monitoring * Wound healing: Add Timbo 1pkt BID * Check lytes daily, replete as needed * Monitor BGs, consider long acting insulin for improved BG control . .
[2018-12-09] MEDS: Metoprolol 25mg tab ORAL SCH ×2 (08:54→20:12)
--- NOTE | 2018-12-09 10:30 | NUR ---
NURSE NOTES: Pt turned and repositioned,incontinent of diarrhea like stools,kept dry and clean.
--- NOTE | 2018-12-09 10:46 | Nephrology Progress Note ---
Assessment/Plan Problem List: (1) Sepsis Assessment: low bp (2) Oliguria Assessment: due low bp (3) Anemia (4) Hypokalemia (5) Diabetic nephropathy (6) Elevated troponin I level Assessment Oliguria due to low BP Sepsis and low BP Elevated troponin UTI (urinary tract infection) Pneumonia Anemia worsening DM+ Proteinuria: Nephropathy s/p IVC Filter Acute encephalopathy HypoAlbuminemia Plan DC IV fluids K Phos , KCl , MgSo4 IV ordered Fluid challenge antibiotics avoid nephrotoxics anemia mac per orders Subjective ROS Limited/Unobtainable: No Constitutional: Reports: malaise Objective Objective Last 24 Hour Vital Signs Date Time Temp Pulse Resp B/P (MAP) Pulse Ox O2 Delivery O2 Flow Rate FiO2 12/09/18 08:54 85 148/72 12/09/18 08:00 Nasal Cannula 2.0 12/09/18 08:00 97.4 85 18 148/72 (97) 100 12/09/18 07:00 81 16 100 Nasal Cannula 2.0 28 12/09/18 06:52 99 Nasal Cannula 2.0 28 12/09/18 06:52 Nasal Cannula 2.0 28 12/09/18 06:52 82 15 99 Nasal Cannula 2.0 28 12/09/18 05:05 88 16 98 Facial 30 12/09/18 04:00 30 12/09/18 04:00 Nasal Cannula 2.0 12/09/18 04:00 83 12/09/18 04:00 98.8 85 16 149/78 (101) 98 12/09/18 03:14 75 15 99 Facial 30 12/09/18 01:38 82 15 100 Bi-pap 30 12/09/18 01:29 81 15 99 Bi-pap 30 12/09/18 01:28 80 15 98 Facial 30 12/09/18 00:00 Nasal Cannula 2.0 12/09/18 00:00 30 12/09/18 00:00 98.1 80 16 148/77 (100) 98 12/09/18 00:00 78 12/08/18 22:54 71 16 99 Facial 30 12/08/18 20:37 74 150/76 12/08/18 20:00 Nasal Cannula 2.0 12/08/18 20:00 2.0 12/08/18 20:00 71 12/08/18 20:00 98.4 74 16 150/76 (100) 100 12/08/18 19:54 73 16 100 Nasal Cannula 2.0 12/08/18 19:46 72 16 99 Nasal Cannula 2.0 12/08/18 19:18 Nasal Cannula 2.0 12/08/18 19:18 99 Nasal Cannula 2.0 12/08/18 16:37 153/82 12/08/18 16:10 2.0 12/08/18 16:00 68 12/08/18 16:00 97.7 77 18 163/81 (108) 98 12/08/18 16:00 Nasal Cannula 2.0 12/08/18 12:53 66 15 100 Nasal Cannula 2.0 12/08/18 12:43 68 14 98 Nasal Cannula 2.0 12/08/18 12:00 Nasal Cannula 2.0 12/08/18 12:00 73 12/08/18 12:00 2.0 12/08/18 12:00 98.1 76 20 153/82 (105) 97 Intake and Output 12/08/18 12/09/18 19:00 07:00 Intake Total 1040 ml 797.5 ml Output Total 1200 ml 400 ml Balance -160 ml 397.5 ml Free Water 200 ml 0 ml IV Total 137.5 ml Tube Feeding 660 ml 660 ml Other 180 ml Output Urine Total 1200 ml 400 ml # Bowel Movements 1 Laboratory Tests 12/09/18 04:00: White Blood Count 5.6, Red Blood Count 2.86L, Hemoglobin 8.8L, Hematocrit 27.7L , Mean Corpuscular Volume 97, Mean Corpuscular Hemoglobin 30.8, Mean Corpuscular Hemoglobin Concent 31.8L, Red Cell Distribution Width 16.5H, Platelet Count 37L, Mean Platelet Volume 7.7, Neutrophils (%) (Auto) , Lymphocytes (%) (Auto) , Monocytes (%) (Auto) , Eosinophils (%) (Auto) , Basophils (%) (Auto) , Neutrophils % (Manual) [Pending], Lymphocytes % (Manual) [Pending], Platelet Estimate [Pending], Platelet Morphology [Pending], Sodium Level 149H, Potassium Level 3.7, Chloride Level 114H, Carbon Dioxide Level 32, Anion Gap 3L, Blood Urea Nitrogen 16, Creatinine 0.7, Estimat Glomerular Filtration Rate , Glucose Level 200H, Calcium Level 8.6 Height (Feet): 5 Height (Inches): 3.00 Weight (Pounds): 122 General Appearance: no apparent distress Cardiovascular: tachycardia Respiratory/Chest: decreased breath sounds Parvez Bergman MD Dec 09, 2018 10:46
[2018-12-09 11:09] LABS: ALANINE AMINOTRANSFERASE 27 U/L (12-78); ALBUMIN 1.8 G/DL (3.4-5.0); ALKALINE PHOSPHATASE 65 U/L (46-116); ASPARTATE AMINO TRANSFERASE 33 U/L (15-37); BILIRUBIN,DIRECT 0.2 MG/DL (0.0-0.3); BILIRUBIN,TOTAL 0.5 MG/DL (0.2-1.0); PHOSPHORUS 2.8 MG/DL (2.5-4.9)
--- NOTE | 2018-12-09 11:35 | GI Progress Note ---
Assessment/Plan Problems: (1) Feeding by G-tube ICD Codes: Z93.1 - Gastrostomy status SNOMED: 324304942, 996397651, 553746009 (2) Anemia ICD Codes: D64.9 - Anemia, unspecified SNOMED: 108710431 (3) Malnutrition ICD Codes: E46 - Unspecified protein-calorie malnutrition SNOMED: 36267631 (4) Dehydration ICD Codes: E86.0 - Dehydration SNOMED: 59375303 (5) Dementia with behavioral disturbance ICD Codes: F03.91 - Unspecified dementia with behavioral disturbance SNOMED: 0766511827720 Status: unchanged Status Narrative Discussed with Dr. Argueta. Assessment/Plan GTF OFF while on of BIPAP resume feedings, GTFs per RD GT site care fu labs abx per ID supportive care fu The patient was seen and examined at bedside and all new and available data was reviewed in the patients chart. I agree with the above findings, impression and plan. (Patient seen earlier today. Signature stamp does not reflect patient encounter time.). - Edwardo Argueta MD Subjective Subjective limited Objective Last 24 Hour Vital Signs Date Time Temp Pulse Resp B/P (MAP) Pulse Ox O2 Delivery O2 Flow Rate FiO2 12/09/18 08:54 85 148/72 12/09/18 08:00 Nasal Cannula 2.0 12/09/18 08:00 97.4 85 18 148/72 (97) 100 12/09/18 07:00 81 16 100 Nasal Cannula 2.0 28 12/09/18 06:52 99 Nasal Cannula 2.0 28 12/09/18 06:52 Nasal Cannula 2.0 28 12/09/18 06:52 82 15 99 Nasal Cannula 2.0 28 12/09/18 05:05 88 16 98 Facial 30 12/09/18 04:00 30 12/09/18 04:00 Nasal Cannula 2.0 12/09/18 04:00 83 12/09/18 04:00 98.8 85 16 149/78 (101) 98 12/09/18 03:14 75 15 99 Facial 30 12/09/18 01:38 82 15 100 Bi-pap 30 12/09/18 01:29 81 15 99 Bi-pap 30 12/09/18 01:28 80 15 98 Facial 30 12/09/18 00:00 Nasal Cannula 2.0 12/09/18 00:00 30 12/09/18 00:00 98.1 80 16 148/77 (100) 98 12/09/18 00:00 78 12/08/18 22:54 71 16 99 Facial 30 12/08/18 20:37 74 150/76 12/08/18 20:00 Nasal Cannula 2.0 12/08/18 20:00 2.0 12/08/18 20:00 71 12/08/18 20:00 98.4 74 16 150/76 (100) 100 12/08/18 19:54 73 16 100 Nasal Cannula 2.0 28 12/08/18 19:46 72 16 99 Nasal Cannula 2.0 28 12/08/18 19:18 Nasal Cannula 2.0 28 12/08/18 19:18 99 Nasal Cannula 2.0 28 12/08/18 16:37 153/82 12/08/18 16:10 2.0 12/08/18 16:00 68 12/08/18 16:00 97.7 77 18 163/81 (108) 98 12/08/18 16:00 Nasal Cannula 2.0 12/08/18 12:53 66 15 100 Nasal Cannula 2.0 12/08/18 12:43 68 14 98 Nasal Cannula 2.0 12/08/18 12:00 Nasal Cannula 2.0 12/08/18 12:00 73 12/08/18 12:00 2.0 12/08/18 12:00 98.1 76 20 153/82 (105) 97 Intake and Output 12/08/18 12/09/18 19:00 07:00 Intake Total 1040 ml 797.5 ml Output Total 1200 ml 400 ml Balance -160 ml 397.5 ml Free Water 200 ml 0 ml IV Total 137.5 ml Tube Feeding 660 ml 660 ml Other 180 ml Output Urine Total 1200 ml 400 ml # Bowel Movements 1 Laboratory Tests Test 12/09/18 04:00 White Blood Count 5.6 K/UL (4.8-10.8) Red Blood Count 2.86 M/UL (4.20-5.40) L Hemoglobin 8.8 G/DL (12.0-16.0) L Hematocrit 27.7 % (37.0-47.0) L Mean Corpuscular Volume 97 FL (80-99) Mean Corpuscular Hemoglobin 30.8 PG (27.0-31.0) Mean Corpuscular Hemoglobin Concent 31.8 G/DL (32.0-36.0) L Red Cell Distribution Width 16.5 % (11.6-14.8) H Platelet Count 37 K/UL (150-450) L Mean Platelet Volume 7.7 FL (6.5-10.1) Neutrophils (%) (Auto) % (45.0-75.0) Lymphocytes (%) (Auto) % (20.0-45.0) Monocytes (%) (Auto) % (1.0-10.0) Eosinophils (%) (Auto) % (0.0-3.0) Basophils (%) (Auto) % (0.0-2.0) Differential Total Cells Counted 100 Neutrophils % (Manual) 86 % (45-75) H Lymphocytes % (Manual) 12 % (20-45) L Monocytes % (Manual) 2 % (1-10) Eosinophils % (Manual) 0 % (0-3) Basophils % (Manual) 0 % (0-2) Band Neutrophils 0 % (0-8) Platelet Estimate Decreased L Platelet Morphology Normal Anisocytosis 1+ Sodium Level 149 MMOL/L (136-145) H Potassium Level 3.7 MMOL/L (3.5-5.1) Chloride Level 114 MMOL/L (98-107) H Carbon Dioxide Level 32 MMOL/L (21-32) Anion Gap 3 mmol/L (5-15) L Blood Urea Nitrogen 16 mg/dL (7-18) Creatinine 0.7 MG/DL (0.55-1.30) Estimat Glomerular Filtration Rate mL/min (>60) Glucose Level 200 MG/DL (74-106) H Calcium Level 8.6 MG/DL (8.5-10.1) Phosphorus Level 2.8 MG/DL (2.5-4.9) Magnesium Level 1.9 MG/DL (1.8-2.4) Total Bilirubin 0.5 MG/DL (0.2-1.0) Direct Bilirubin 0.2 MG/DL (0.0-0.3) Aspartate Amino Transf (AST/SGOT) 33 U/L (15-37) Alanine Aminotransferase (ALT/SGPT) 27 U/L (12-78) Alkaline Phosphatase 65 U/L (46-116) Total Protein 5.6 G/DL (6.4-8.2) L Albumin 1.8 G/DL (3.4-5.0) L Height (Feet): 5 Height (Inches): 3.00 Weight (Pounds): 122 General Appearance: alert Cardiovascular: normal rate Respiratory/Chest: other - NC Abdominal Exam: GT site - clean dry intact Aidee Powell NP Dec 09, 2018 11:35
[2018-12-09 12:00] VITALS: BP 142/71
--- NOTE | 2018-12-09 12:41 | Infectious Diseases Prog Note ---
Assessment/Plan Assessment/Plan A: 1. Proteus Sepsis 2. urinary tract infection with E.coli & Proteus 3. Atelectasis on chest x-ray, may have underlying pneumonia. 4. Diabetes mellitus type 2. 5. Dementia. 6. Pancytopenia. 7. Pressure ulcer 8. MRSA & VRE colonization RECOMMENDATION: 1. Continue Zosyn until expiration time 2. remove femoral line after finishing antibiotic course Subjective ROS Limited/Unobtainable: Yes Allergies: Coded Allergies: No Known Allergies (Unverified , 07/26/18) Objective Vital Signs Last 24 Hour Vital Signs Date Time Temp Pulse Resp B/P (MAP) Pulse Ox O2 Delivery O2 Flow Rate FiO2 12/09/18 12:17 Nasal Cannula 12/09/18 12:17 Nasal Cannula 12/09/18 08:54 85 148/72 12/09/18 08:00 84 12/09/18 08:00 Nasal Cannula 2.0 12/09/18 08:00 97.4 85 18 148/72 (97) 100 12/09/18 07:00 81 16 100 Nasal Cannula 2.0 28 12/09/18 06:52 99 Nasal Cannula 2.0 28 12/09/18 06:52 Nasal Cannula 2.0 28 12/09/18 06:52 82 15 99 Nasal Cannula 2.0 28 12/09/18 05:05 88 16 98 Facial 30 12/09/18 04:00 30 12/09/18 04:00 Nasal Cannula 2.0 12/09/18 04:00 83 12/09/18 04:00 98.8 85 16 149/78 (101) 98 12/09/18 03:14 75 15 99 Facial 30 12/09/18 01:38 82 15 100 Bi-pap 30 12/09/18 01:29 81 15 99 Bi-pap 30 12/09/18 01:28 80 15 98 Facial 30 12/09/18 00:00 Nasal Cannula 2.0 12/09/18 00:00 30 12/09/18 00:00 98.1 80 16 148/77 (100) 98 12/09/18 00:00 78 12/08/18 22:54 71 16 99 Facial 30 12/08/18 20:37 74 150/76 12/08/18 20:00 Nasal Cannula 2.0 12/08/18 20:00 2.0 12/08/18 20:00 71 12/08/18 20:00 98.4 74 16 150/76 (100) 100 12/08/18 19:54 73 16 100 Nasal Cannula 2.0 28 12/08/18 19:46 72 16 99 Nasal Cannula 2.0 28 12/08/18 19:18 Nasal Cannula 2.0 28 12/08/18 19:18 99 Nasal Cannula 2.0 28 12/08/18 16:37 153/82 12/08/18 16:10 2.0 12/08/18 16:00 68 12/08/18 16:00 97.7 77 18 163/81 (108) 98 12/08/18 16:00 Nasal Cannula 2.0 12/08/18 12:53 66 15 100 Nasal Cannula 2.0 28 12/08/18 12:43 68 14 98 Nasal Cannula 2.0 28 Height (Feet): 5 Height (Inches): 3.00 Weight (Pounds): 122 General Appearance: no acute distress HEENT: mucous membranes moist Respiratory/Chest: lungs clear Cardiovascular: normal rate, other - R femoral line Abdomen: soft, non tender, other - GT feeding Extremities: no edema Neurologic/Psychiatric: alert, aphasia Laboratory Tests Test 12/09/18 04:00 White Blood Count 5.6 K/UL (4.8-10.8) Red Blood Count 2.86 M/UL (4.20-5.40) L Hemoglobin 8.8 G/DL (12.0-16.0) L Hematocrit 27.7 % (37.0-47.0) L Mean Corpuscular Volume 97 FL (80-99) Mean Corpuscular Hemoglobin 30.8 PG (27.0-31.0) Mean Corpuscular Hemoglobin Concent 31.8 G/DL (32.0-36.0) L Red Cell Distribution Width 16.5 % (11.6-14.8) H Platelet Count 37 K/UL (150-450) L Mean Platelet Volume 7.7 FL (6.5-10.1) Neutrophils (%) (Auto) % (45.0-75.0) Lymphocytes (%) (Auto) % (20.0-45.0) Monocytes (%) (Auto) % (1.0-10.0) Eosinophils (%) (Auto) % (0.0-3.0) Basophils (%) (Auto) % (0.0-2.0) Differential Total Cells Counted 100 Neutrophils % (Manual) 86 % (45-75) H Lymphocytes % (Manual) 12 % (20-45) L Monocytes % (Manual) 2 % (1-10) Eosinophils % (Manual) 0 % (0-3) Basophils % (Manual) 0 % (0-2) Band Neutrophils 0 % (0-8) Platelet Estimate Decreased L Platelet Morphology Normal Anisocytosis 1+ Sodium Level 149 MMOL/L (136-145) H Potassium Level 3.7 MMOL/L (3.5-5.1) Chloride Level 114 MMOL/L (98-107) H Carbon Dioxide Level 32 MMOL/L (21-32) Anion Gap 3 mmol/L (5-15) L Blood Urea Nitrogen 16 mg/dL (7-18) Creatinine 0.7 MG/DL (0.55-1.30) Estimat Glomerular Filtration Rate mL/min (>60) Glucose Level 200 MG/DL (74-106) H Calcium Level 8.6 MG/DL (8.5-10.1) Phosphorus Level 2.8 MG/DL (2.5-4.9) Magnesium Level 1.9 MG/DL (1.8-2.4) Total Bilirubin 0.5 MG/DL (0.2-1.0) Direct Bilirubin 0.2 MG/DL (0.0-0.3) Aspartate Amino Transf (AST/SGOT) 33 U/L (15-37) Alanine Aminotransferase (ALT/SGPT) 27 U/L (12-78) Alkaline Phosphatase 65 U/L (46-116) Total Protein 5.6 G/DL (6.4-8.2) L Albumin 1.8 G/DL (3.4-5.0) L Current Medications Medications (Trade) Dose Ordered Sig/Laure Route PRN Reason Start Time Stop Time Status Last Admin Dose Admin Acetaminophen (Tylenol) 650 mg Q4HR PRN NG Mild Pain/Temp > 100.5 12/03/18 17:00 01/01/19 04:14 Albuterol/ Ipratropium (Albuterol/ Ipratropium) 3 ml Q6HRT HHN 12/04/18 13:00 12/09/18 12:59 12/09/18 06:51 Chlorhexidine Gluconate (Georgina-Hex 2%) 1 applic DAILY@2000 TOPIC 12/03/18 20:00 12/31/18 19:59 12/08/18 20:36 Dextrose (Dextrose 50%) 25 ml Q30M PRN IV Hypoglycemia 12/03/18 13:30 12/31/18 12:29 Dextrose (Dextrose 50%) 50 ml Q30M PRN IV Hypoglycemia 12/03/18 13:30 12/31/18 12:29 Insulin Aspart (NovoLOG) Q6HR SUBQ 12/03/18 18:00 12/31/18 17:59 12/09/18 12:16 Metoprolol Tartrate (Lopressor) 25 mg Q12HR ORAL 12/03/18 17:00 01/02/19 16:59 12/09/18 08:54 Nitroglycerin (Ntg) 1 patch Q24H TDERMAL 12/03/18 16:00 01/01/19 15:59 12/08/18 16:37 Ondansetron HCl (Zofran) 4 mg Q6H PRN IVP Nausea & Vomiting 12/03/18 16:15 12/31/18 10:14 Piperacillin Sod/ Tazobactam Sod 3.375 gm/Dextrose 110 ml @ 27.5 mls/hr EVERY 8 HOURS IVPB 12/06/18 14:00 12/09/18 23:59 12/09/18 05:09 Potassium Chloride (K-Dur) 40 meq TWICE A DAY GT 12/08/18 18:00 01/06/19 17:59 12/09/18 08:53 Shimon Card MD Dec 09, 2018 12:41
--- NOTE | 2018-12-09 13:00 | NUR ---
NURSE NOTES: PIV inserted to RFA with no 22G angiocath x1,procedure tolerated.RT Femoral TLC removed with out trauma to skin,Pressure dressing applied to RT groin area,no bleeding noted to site.
--- NOTE | 2018-12-09 13:03 | NUR ---
NURSE NOTES:WOUND CARE NOTES:Pt noted to have developed serous blister at proximal end of surgical incision upper abd. Incisions well approximated .Skin Barrier applied to blister and covered with Optifoam drsg. .Sacrum rajinder pink with scattered areas of partial thickness shearing.Site without induration (L)6cm x (W)7cm. Partial thickness pressure injury noted to lower L buttocks .Base of wound moist -viable ,edges adherent and flat. Bilat heels are soft but easily blanchable. Tx:Plan:Cover Abdominal blister with Optifoam drsg .Change every 7 days and prn. Apply Moisture Barrier to sacrum and L buutocks .Cover each site with Optifoam drsgs .Change every 3 days and prn. Apply Cavilon to both heels .Off-load heels with PIllow. Reposition at least every 2hours or as tolerated. APM /Tuan mattress.
--- NOTE | 2018-12-09 14:53 | NUR ---
[employer] [employer] REPRESENTATIVE SI: SEPSIS T. 97.4 HR 85 RR 18 B/P 142/71 2L NC O2 SAT @ 98% NA 149 ALB 1.8 IS: ZOSYN IV K-DUR LOPRESSOR STEP DOWN STATUS
--- NOTE | 2018-12-09 15:03 | Pulmonology Progress Note ---
Assessment/Plan Problems: (1) UTI (urinary tract infection) (2) Pneumonia (3) Sepsis (4) DVT (deep venous thrombosis) (5) Dementia with behavioral disturbance (6) Malnutrition (7) Anemia (8) Thrombocytopenia (9) Feeding by G-tube (10) Elevated troponin I level (11) S/P IVC filter Assessment/Plan Optimize pulmonary hygiene/mobilize as tolerated Titrate down FiO2 to keep SaO2 > 90% RTC and PRN HHN's Abx per ID - ZOSYN to finish today TF's as tolerated Monitor volumes and renal function Monitor CBC, transfuse as needed F/U consultant electronics recs DVT Px: IVCF FC, continue to discuss GOC Subjective Allergies: Coded Allergies: No Known Allergies (Unverified , 07/26/18) Subjective AFVSS on 2L not using BiPAP leta TF's no respiratory distress no cough no SOB no wheezing no F.C Objective Last 24 Hour Vital Signs Date Time Temp Pulse Resp B/P (MAP) Pulse Ox O2 Delivery O2 Flow Rate FiO2 12/09/18 12:17 Nasal Cannula 12/09/18 12:17 Nasal Cannula 12/09/18 12:00 Nasal Cannula 2.0 12/09/18 12:00 77 12/09/18 12:00 98.5 78 20 142/71 (94) 99 12/09/18 08:54 85 148/72 12/09/18 08:00 84 12/09/18 08:00 Nasal Cannula 2.0 12/09/18 08:00 97.4 85 18 148/72 (97) 100 12/09/18 07:00 81 16 100 Nasal Cannula 2.0 28 12/09/18 06:52 99 Nasal Cannula 2.0 28 12/09/18 06:52 Nasal Cannula 2.0 28 12/09/18 06:52 82 15 99 Nasal Cannula 2.0 28 12/09/18 05:05 88 16 98 Facial 30 12/09/18 04:00 30 12/09/18 04:00 Nasal Cannula 2.0 12/09/18 04:00 83 12/09/18 04:00 98.8 85 16 149/78 (101) 98 12/09/18 03:14 75 15 99 Facial 30 12/09/18 01:38 82 15 100 Bi-pap 30 12/09/18 01:29 81 15 99 Bi-pap 30 12/09/18 01:28 80 15 98 Facial 30 12/09/18 00:00 Nasal Cannula 2.0 12/09/18 00:00 30 12/09/18 00:00 98.1 80 16 148/77 (100) 98 12/09/18 00:00 78 12/08/18 22:54 71 16 99 Facial 30 12/08/18 20:37 74 150/76 12/08/18 20:00 Nasal Cannula 2.0 12/08/18 20:00 2.0 12/08/18 20:00 71 12/08/18 20:00 98.4 74 16 150/76 (100) 100 12/08/18 19:54 73 16 100 Nasal Cannula 2.0 28 12/08/18 19:46 72 16 99 Nasal Cannula 2.0 28 12/08/18 19:18 Nasal Cannula 2.0 28 12/08/18 19:18 99 Nasal Cannula 2.0 28 12/08/18 16:37 153/82 12/08/18 16:10 2.0 12/08/18 16:00 68 12/08/18 16:00 97.7 77 18 163/81 (108) 98 12/08/18 16:00 Nasal Cannula 2.0 Intake and Output 12/08/18 12/09/18 19:00 07:00 Intake Total 1040 ml 797.5 ml Output Total 1200 ml 400 ml Balance -160 ml 397.5 ml Free Water 200 ml 0 ml IV Total 137.5 ml Tube Feeding 660 ml 660 ml Other 180 ml Output Urine Total 1200 ml 400 ml # Bowel Movements 1 General Appearance: no acute distress, cachetic HEENT: normocephalic, atraumatic, anicteric, mucous membranes moist Respiratory/Chest: rhonchi Cardiovascular: normal peripheral pulses, normal rate, regular rhythm Abdomen: normal bowel sounds, soft, non tender, no organomegaly, non distended , no mass, other - GT Extremities: no cyanosis, no clubbing, no edema Laboratory Tests 12/09/18 04:00: White Blood Count 5.6, Red Blood Count 2.86L, Hemoglobin 8.8L, Hematocrit 27.7L , Mean Corpuscular Volume 97, Mean Corpuscular Hemoglobin 30.8, Mean Corpuscular Hemoglobin Concent 31.8L, Red Cell Distribution Width 16.5H, Platelet Count 37L, Mean Platelet Volume 7.7, Neutrophils (%) (Auto) , Lymphocytes (%) (Auto) , Monocytes (%) (Auto) , Eosinophils (%) (Auto) , Basophils (%) (Auto) , Differential Total Cells Counted 100, Neutrophils % ( Manual) 86H, Lymphocytes % (Manual) 12L, Monocytes % (Manual) 2, Eosinophils % ( Manual) 0, Basophils % (Manual) 0, Band Neutrophils 0, Platelet Estimate DecreasedL, Platelet Morphology Normal, Anisocytosis 1+, Sodium Level 149H, Potassium Level 3.7, Chloride Level 114H, Carbon Dioxide Level 32, Anion Gap 3L , Blood Urea Nitrogen 16, Creatinine 0.7, Estimat Glomerular Filtration Rate , Glucose Level 200H, Calcium Level 8.6, Phosphorus Level 2.8, Magnesium Level 1.9 , Total Bilirubin 0.5, Direct Bilirubin 0.2, Aspartate Amino Transf (AST/SGOT) 33, Alanine Aminotransferase (ALT/SGPT) 27, Alkaline Phosphatase 65, Total Protein 5.6L, Albumin 1.8L Current Medications Medications (Trade) Dose Ordered Sig/Laure Route PRN Reason Start Time Stop Time Status Last Admin Dose Admin Acetaminophen (Tylenol) 650 mg Q4HR PRN NG Mild Pain/Temp > 100.5 12/03/18 17:00 01/01/19 04:14 Chlorhexidine Gluconate (Georgina-Hex 2%) 1 applic DAILY@2000 TOPIC 12/03/18 20:00 12/31/18 19:59 12/08/18 20:36 Dextrose (Dextrose 50%) 25 ml Q30M PRN IV Hypoglycemia 12/03/18 13:30 12/31/18 12:29 Dextrose (Dextrose 50%) 50 ml Q30M PRN IV Hypoglycemia 12/03/18 13:30 12/31/18 12:29 Insulin Aspart (NovoLOG) Q6HR SUBQ 12/03/18 18:00 12/31/18 17:59 12/09/18 12:16 Metoprolol Tartrate (Lopressor) 25 mg Q12HR ORAL 12/03/18 17:00 01/02/19 16:59 12/09/18 08:54 Nitroglycerin (Ntg) 1 patch Q24H TDERMAL 12/03/18 16:00 01/01/19 15:59 12/08/18 16:37 Ondansetron HCl (Zofran) 4 mg Q6H PRN IVP Nausea & Vomiting 12/03/18 16:15 12/31/18 10:14 Piperacillin Sod/ Tazobactam Sod 3.375 gm/Dextrose 110 ml @ 27.5 mls/hr EVERY 8 HOURS IVPB 12/06/18 14:00 12/09/18 23:59 12/09/18 14:02 Potassium Chloride (K-Dur) 40 meq TWICE A DAY GT 12/08/18 18:00 01/06/19 17:59 12/09/18 08:53 Foreign Parekh MD Dec 09, 2018 15:03
[2018-12-09 16:00] VITALS: BP 152/85
[2018-12-09] MEDS ORDERED: Sterile Water Irrig 1000ml IRRIG ONE (16:38)
[2018-12-09] MEDS ORDERED: NS 275ml ONE ×2 (16:38→17:03)
[2018-12-09] MEDS: Nitroglycerin Patch 0.4mg TDERMAL SCH (16:42)
[2018-12-09] MEDS ORDERED: Tubing IV Secondary IV ONE (17:03)
--- NOTE | 2018-12-09 18:00 | NUR ---
NURSE NOTES: Pt stable in no resp distress,for transfer to Tele with no bed available yet.
--- NOTE | 2018-12-09 19:15 | NUR ---
NURSE NOTES: Received report from Pino RN, pt. in bed obtunded with eyes open- non-verbal. Cardiac monitoring on- sinus rhythm on monitor, no signs or symptoms of acute cardiac or respiratory distress noted, bed in lowest position and call light within easy reach, bed alarm on, side rails up x's 3 and safety brakes engaged, Pt. appears to be tolerating current NC settings well at 2L- no distress noted- Satign at 98%. Pt. running Glucerna 1.2 at 55cc/hr- no residual noted. Leiva intact and draining to gravity, comfort measures provided, RFA 22G-IV intact and patent- TKO, RT. femoral area area no bleeding noted where femoral line was removed. Oral care provided, safety measures continued, will continue with plan of care and continue to monitor patient.
--- NOTE | 2018-12-09 19:15 | NUR ---
HAND-OFF: Report given to Andrea DYKES.
--- NOTE | 2018-12-09 19:58 | NUR ---
NURSE NOTES: Georgina Hex not administered pt. no longer has Femoral line.
[2018-12-09 20:00] VITALS: BP 150/77
[2018-12-09] MEDS: Dyna-Hex 2% Top Sol 2oz TOPIC SCH (20:00)
--- NOTE | 2018-12-09 21:14 | General Progress Note ---
Assessment/Plan Problem List: (1) UTI (urinary tract infection) ICD Codes: N39.0 - Urinary tract infection, site not specified SNOMED: 06956583 Qualifiers: Qualified Codes: N39.0 - Urinary tract infection, site not specified (2) Pneumonia ICD Codes: J18.9 - Pneumonia, unspecified organism SNOMED: 563114405, 265205028, 122982044 Qualifiers: Qualified Codes: J18.1 - Lobar pneumonia, unspecified organism (3) Elevated troponin ICD Codes: R74.8 - Abnormal levels of other serum enzymes SNOMED: 396852227, 295436355, 570372583 (4) Dehydration ICD Codes: E86.0 - Dehydration SNOMED: 43214970 (5) Hypokalemia ICD Codes: E87.6 - Hypokalemia SNOMED: 76266233 (6) Malnutrition ICD Codes: E46 - Unspecified protein-calorie malnutrition SNOMED: 92291425 (7) Dementia with behavioral disturbance ICD Codes: F03.91 - Unspecified dementia with behavioral disturbance SNOMED: 6840656664198 (8) Encephalopathy due to metabolic factor or toxin SNOMED: 698605289 (9) Anemia ICD Codes: D64.9 - Anemia, unspecified SNOMED: 019175160 (10) Sepsis ICD Codes: A41.9 - Sepsis, unspecified organism SNOMED: 88141137 Qualifiers: Qualified Codes: A41.9 - Sepsis, unspecified organism (11) Diabetic nephropathy 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 SNOMED: 080767420 Status: progressing Assessment/Plan encephalopathic reviewed chart and labs sepsis malnutrition uti improving abx per id Subjective ROS Limited/Unobtainable: Yes Allergies: Coded Allergies: No Known Allergies (Unverified , 07/26/18) Objective Last 24 Hour Vital Signs Date Time Temp Pulse Resp B/P (MAP) Pulse Ox O2 Delivery O2 Flow Rate FiO2 12/09/18 20:12 74 150/76 12/09/18 19:04 100 Nasal Cannula 2.0 28 12/09/18 19:04 Nasal Cannula 2.0 28 12/09/18 16:42 142/71 12/09/18 16:09 Nasal Cannula 2.0 12/09/18 16:00 71 12/09/18 16:00 98.2 78 20 152/85 (107) 100 3/1/19 12:17 Nasal Cannula 12/09/18 12:17 Nasal Cannula 12/09/18 12:00 Nasal Cannula 2.0 12/09/18 12:00 77 12/09/18 12:00 98.5 78 20 142/71 (94) 99 12/09/18 08:54 85 148/72 12/09/18 08:00 84 12/09/18 08:00 Nasal Cannula 2.0 12/09/18 08:00 97.4 85 18 148/72 (97) 100 12/09/18 07:00 81 16 100 Nasal Cannula 2.0 28 12/09/18 06:52 99 Nasal Cannula 2.0 28 12/09/18 06:52 Nasal Cannula 2.0 28 12/09/18 06:52 82 15 99 Nasal Cannula 2.0 28 12/09/18 05:05 88 16 98 Facial 30 12/09/18 04:00 30 12/09/18 04:00 Nasal Cannula 2.0 12/09/18 04:00 83 12/09/18 04:00 98.8 85 16 149/78 (101) 98 12/09/18 03:14 75 15 99 Facial 30 12/09/18 01:38 82 15 100 Bi-pap 30 12/09/18 01:29 81 15 99 Bi-pap 30 12/09/18 01:28 80 15 98 Facial 30 12/09/18 00:00 Nasal Cannula 2.0 12/09/18 00:00 30 12/09/18 00:00 98.1 80 16 148/77 (100) 98 12/09/18 00:00 78 12/08/18 22:54 71 16 99 Facial 30 Intake and Output 12/08/18 12/09/18 19:00 07:00 Intake Total 1040 ml 797.5 ml Output Total 1200 ml 400 ml Balance -160 ml 397.5 ml Free Water 200 ml 0 ml IV Total 137.5 ml Tube Feeding 660 ml 660 ml Other 180 ml Output Urine Total 1200 ml 400 ml # Bowel Movements 1 1 Laboratory Tests 12/09/18 04:00: White Blood Count 5.6, Red Blood Count 2.86L, Hemoglobin 8.8L, Hematocrit 27.7L , Mean Corpuscular Volume 97, Mean Corpuscular Hemoglobin 30.8, Mean Corpuscular Hemoglobin Concent 31.8L, Red Cell Distribution Width 16.5H, Platelet Count 37L, Mean Platelet Volume 7.7, Neutrophils (%) (Auto) , Lymphocytes (%) (Auto) , Monocytes (%) (Auto) , Eosinophils (%) (Auto) , Basophils (%) (Auto) , Differential Total Cells Counted 100, Neutrophils % ( Manual) 86H, Lymphocytes % (Manual) 12L, Monocytes % (Manual) 2, Eosinophils % ( Manual) 0, Basophils % (Manual) 0, Band Neutrophils 0, Platelet Estimate DecreasedL, Platelet Morphology Normal, Anisocytosis 1+, Sodium Level 149H, Potassium Level 3.7, Chloride Level 114H, Carbon Dioxide Level 32, Anion Gap 3L , Blood Urea Nitrogen 16, Creatinine 0.7, Estimat Glomerular Filtration Rate , Glucose Level 200H, Calcium Level 8.6, Phosphorus Level 2.8, Magnesium Level 1.9 , Total Bilirubin 0.5, Direct Bilirubin 0.2, Aspartate Amino Transf (AST/SGOT) 33, Alanine Aminotransferase (ALT/SGPT) 27, Alkaline Phosphatase 65, Total Protein 5.6L, Albumin 1.8L Height (Feet): 5 Height (Inches): 3.00 Weight (Pounds): 122 General Appearance: lethargic, confused Respiratory/Chest: lungs clear Abdomen: soft Yi Asencio MD Dec 09, 2018 21:14
--- NOTE | 2018-12-09 23:44 | General Progress Note ---
Assessment/Plan Assessment/Plan Assessment/Recs: # DVT of the left leg s/p IVC filter in 07/2018-- superficial femoral vein which is a deep vein, new onset, has not had these symptoms before. Lower hgb and plts --> given decreased h/h, low thrombocytopenia, do not recommend anticoag --> appreciate Dr. Parekh and Mariam recs from prior admission --> smear reviewed # Pancytopenia, likely related to septicemia, appears new baseline 50-70k, several causes possible including viral, medication or intrabone marrow related. --> Cont to monitor plt count for improvement --> US abd: Mild left hydronephrosis. Possible left renal calyceal calculi. Negative for gallstones or dilated ducts Debris noted within the bladder --> Hep panel and HIV are both negative --> given extremely poor condition do not recommend a bone marrow biopsy, have discussed with family 08/01 with --> will rediscuss once sepsis resolves --> transfuse if plt <20k # Anemia of chronic disease. Multifactorial. Since admission Hgb has consistently remained between 8-9. --> Cont to monitor for stability --> Hgb goal above 7. Transfuse prn. --> IV iron completed prior admission and feritin is elevated # Dehydration. IVF has been administered --> improved # DM OOC --> A1C goal <7 --> Cont on insulin # Bacteremia/prior UTI. --> ID is following. Appreciate recs. --> Pt on IV abx. --> Cultures surveillance as per id # PEG placement 08/04. Greatly appreciate consultation! Subjective Constitutional: Denies: no symptoms, chills, diaphoresis, fever, malaise, weakness, other HEENT: Denies: no symptoms, eye pain, blurred vision, tearing, double vision, ear pain, ear discharge, nose pain, nose congestion, throat pain, throat swelling, mouth pain, mouth swelling, other Respiratory: Denies: no symptoms, cough, orthopnea, shortness of breath, SOB with excertion, SOB at rest, sputum, stridor, wheezing, other Gastrointestinal/Abdominal: Denies: no symptoms, abdomen distended, abdominal pain, black stools, tarry stools, blood in stool, constipated, diarrhea, difficulty swallowing, nausea, poor appetite, poor fluid intake, rectal bleeding , vomiting, other Genitourinary: Denies: no symptoms, burning, discharge, frequency, flank pain, hematuria, incontinence, pain, urgency, other Neurologic/Psychiatric: Denies: no symptoms, anxiety, depressed, emotional problems, headache, numbness, paresthesia, pre-existing deficit, seizure, tingling, tremors, weakness, other Endocrine: Denies: no symptoms, excessive sweating, flushing, intolerance to cold, intolerance to heat, increased hunger, increased thirst, increased urine, unexplained weight gain, unexplained weight loss, other Hematologic/Lymphatic: Denies: no symptoms, anemia, easy bleeding, easy bruising, other Allergies: Coded Allergies: No Known Allergies (Unverified , 07/26/18) Subjective 12/02: seen by bedside, hgb 7.6, will transfuse as needed, plt trending down, GTF on hold, patient on BIPAP, has been tachycardic over night, abx per ID 12/04: Seen by bedside, out of ICU, tolerating TF, off BIPAP, plt trending down to 45, hgb 7.6. 12/05: Pt is resting in bed, hgb 6.6 and plt 39, received transfusion, no events. 12/06: seen by bedside,awake, comfortable, plt 43 12/07: awake, comfortable, plt remains low, hgb 8.8 12/08: seen by bedside, awake, comfortable, hgb 8.3, no events 12/09: awake, comfortable, no acute distress, plt 37 Objective Last 24 Hour Vital Signs Date Time Temp Pulse Resp B/P (MAP) Pulse Ox O2 Delivery O2 Flow Rate FiO2 12/09/18 20:12 74 150/76 12/09/18 20:00 Nasal Cannula 2.0 12/09/18 20:00 76 12/09/18 20:00 97.9 80 16 150/77 (101) 99 12/09/18 19:04 100 Nasal Cannula 2.0 28 12/09/18 19:04 Nasal Cannula 2.0 28 12/09/18 16:42 142/71 12/09/18 16:09 Nasal Cannula 2.0 12/09/18 16:00 71 12/09/18 16:00 98.2 78 20 152/85 (107) 100 12/09/18 12:17 Nasal Cannula 12/09/18 12:17 Nasal Cannula 12/09/18 12:00 Nasal Cannula 2.0 12/09/18 12:00 77 12/09/18 12:00 98.5 78 20 142/71 (94) 99 12/09/18 08:54 85 148/72 12/09/18 08:00 84 12/09/18 08:00 Nasal Cannula 2.0 12/09/18 08:00 97.4 85 18 148/72 (97) 100 12/09/18 07:00 81 16 100 Nasal Cannula 2.0 28 12/09/18 06:52 99 Nasal Cannula 2.0 28 12/09/18 06:52 Nasal Cannula 2.0 28 12/09/18 06:52 82 15 99 Nasal Cannula 2.0 28 12/09/18 05:05 88 16 98 Facial 30 12/09/18 04:00 30 12/09/18 04:00 Nasal Cannula 2.0 12/09/18 04:00 83 12/09/18 04:00 98.8 85 16 149/78 (101) 98 12/09/18 03:14 75 15 99 Facial 30 12/09/18 01:38 82 15 100 Bi-pap 30 12/09/18 01:29 81 15 99 Bi-pap 30 12/09/18 01:28 80 15 98 Facial 30 12/09/18 00:00 Nasal Cannula 2.0 12/09/18 00:00 30 12/09/18 00:00 98.1 80 16 148/77 (100) 98 12/09/18 00:00 78 Intake and Output 12/08/18 12/09/18 19:00 07:00 Intake Total 1040 ml 797.5 ml Output Total 1200 ml 400 ml Balance -160 ml 397.5 ml Free Water 200 ml 0 ml IV Total 137.5 ml Tube Feeding 660 ml 660 ml Other 180 ml Output Urine Total 1200 ml 400 ml # Bowel Movements 1 1 Laboratory Tests 12/09/18 04:00: White Blood Count 5.6, Red Blood Count 2.86L, Hemoglobin 8.8L, Hematocrit 27.7L , Mean Corpuscular Volume 97, Mean Corpuscular Hemoglobin 30.8, Mean Corpuscular Hemoglobin Concent 31.8L, Red Cell Distribution Width 16.5H, Platelet Count 37L, Mean Platelet Volume 7.7, Neutrophils (%) (Auto) , Lymphocytes (%) (Auto) , Monocytes (%) (Auto) , Eosinophils (%) (Auto) , Basophils (%) (Auto) , Differential Total Cells Counted 100, Neutrophils % ( Manual) 86H, Lymphocytes % (Manual) 12L, Monocytes % (Manual) 2, Eosinophils % ( Manual) 0, Basophils % (Manual) 0, Band Neutrophils 0, Platelet Estimate DecreasedL, Platelet Morphology Normal, Anisocytosis 1+, Sodium Level 149H, Potassium Level 3.7, Chloride Level 114H, Carbon Dioxide Level 32, Anion Gap 3L , Blood Urea Nitrogen 16, Creatinine 0.7, Estimat Glomerular Filtration Rate , Glucose Level 200H, Calcium Level 8.6, Phosphorus Level 2.8, Magnesium Level 1.9 , Total Bilirubin 0.5, Direct Bilirubin 0.2, Aspartate Amino Transf (AST/SGOT) 33, Alanine Aminotransferase (ALT/SGPT) 27, Alkaline Phosphatase 65, Total Protein 5.6L, Albumin 1.8L Height (Feet): 5 Height (Inches): 3.00 Weight (Pounds): 122 Objective Physical Exam Vitals: reviewed Gen: confused, on bipap, unable to converse, sleepy Pulm: ++ crackles ++ bipap CV: RRR, no mgr Abd: soft, nt, nd ++ peg Ext: no swelling of lower ext Neuro: demented Dewayne Gayle MD Dec 09, 2018 23:44
--- NOTE | 2018-12-09 23:52 | Cardiology Progress Note ---
Assessment/Plan Assessment/Plan 1. Septic shock, most likely due to bilateral pneumonia as well as associated effusion. Normal LV systolic function with grade I LVDD. 2. Slight elevation of troponin I level could be secondary to sepsis although demand ischemia situation cannot be ruled out. 3. Prerenal azotemia, resolved. 4. DVT status post IVC filter. 5. History of metabolic encephalopathy. 6. History of dementia. 7. History of CVA. 8. History of pancytopenia. 9. Sinus tachycardia, resolved. Subjective Subjective Sinus rhythm at rate of 74. On NC oxygen. Objective Last 24 Hour Vital Signs Date Time Temp Pulse Resp B/P (MAP) Pulse Ox O2 Delivery O2 Flow Rate FiO2 12/09/18 20:12 74 150/76 12/09/18 20:00 Nasal Cannula 2.0 12/09/18 20:00 76 12/09/18 20:00 97.9 80 16 150/77 (101) 99 12/09/18 19:04 100 Nasal Cannula 2.0 28 12/09/18 19:04 Nasal Cannula 2.0 28 12/09/18 16:42 142/71 12/09/18 16:09 Nasal Cannula 2.0 12/09/18 16:00 71 12/09/18 16:00 98.2 78 20 152/85 (107) 100 12/09/18 12:17 Nasal Cannula 12/09/18 12:17 Nasal Cannula 12/09/18 12:00 Nasal Cannula 2.0 12/09/18 12:00 77 12/09/18 12:00 98.5 78 20 142/71 (94) 99 12/09/18 08:54 85 148/72 12/09/18 08:00 84 12/09/18 08:00 Nasal Cannula 2.0 12/09/18 08:00 97.4 85 18 148/72 (97) 100 12/09/18 07:00 81 16 100 Nasal Cannula 2.0 28 12/09/18 06:52 99 Nasal Cannula 2.0 28 12/09/18 06:52 Nasal Cannula 2.0 28 12/09/18 06:52 82 15 99 Nasal Cannula 2.0 28 12/09/18 05:05 88 16 98 Facial 30 12/09/18 04:00 30 12/09/18 04:00 Nasal Cannula 2.0 12/09/18 04:00 83 12/09/18 04:00 98.8 85 16 149/78 (101) 98 12/09/18 03:14 75 15 99 Facial 30 12/09/18 01:38 82 15 100 Bi-pap 30 12/09/18 01:29 81 15 99 Bi-pap 30 12/09/18 01:28 80 15 98 Facial 30 12/09/18 00:00 Nasal Cannula 2.0 12/09/18 00:00 30 12/09/18 00:00 98.1 80 16 148/77 (100) 98 12/09/18 00:00 78 Intake and Output 12/08/18 12/09/18 19:00 07:00 Intake Total 1040 ml 797.5 ml Output Total 1200 ml 400 ml Balance -160 ml 397.5 ml Free Water 200 ml 0 ml IV Total 137.5 ml Tube Feeding 660 ml 660 ml Other 180 ml Output Urine Total 1200 ml 400 ml # Bowel Movements 1 1 2D Echo: EF55%, Large left pleural eff., Grade I LVDD, Mild AR/Mod MR/AR,RVSP 37mmHg Laboratory Tests Test 12/09/18 04:00 White Blood Count 5.6 K/UL (4.8-10.8) Red Blood Count 2.86 M/UL (4.20-5.40) L Hemoglobin 8.8 G/DL (12.0-16.0) L Hematocrit 27.7 % (37.0-47.0) L Mean Corpuscular Volume 97 FL (80-99) Mean Corpuscular Hemoglobin 30.8 PG (27.0-31.0) Mean Corpuscular Hemoglobin Concent 31.8 G/DL (32.0-36.0) L Red Cell Distribution Width 16.5 % (11.6-14.8) H Platelet Count 37 K/UL (150-450) L Mean Platelet Volume 7.7 FL (6.5-10.1) Neutrophils (%) (Auto) % (45.0-75.0) Lymphocytes (%) (Auto) % (20.0-45.0) Monocytes (%) (Auto) % (1.0-10.0) Eosinophils (%) (Auto) % (0.0-3.0) Basophils (%) (Auto) % (0.0-2.0) Differential Total Cells Counted 100 Neutrophils % (Manual) 86 % (45-75) H Lymphocytes % (Manual) 12 % (20-45) L Monocytes % (Manual) 2 % (1-10) Eosinophils % (Manual) 0 % (0-3) Basophils % (Manual) 0 % (0-2) Band Neutrophils 0 % (0-8) Platelet Estimate Decreased L Platelet Morphology Normal Anisocytosis 1+ Sodium Level 149 MMOL/L (136-145) H Potassium Level 3.7 MMOL/L (3.5-5.1) Chloride Level 114 MMOL/L (98-107) H Carbon Dioxide Level 32 MMOL/L (21-32) Anion Gap 3 mmol/L (5-15) L Blood Urea Nitrogen 16 mg/dL (7-18) Creatinine 0.7 MG/DL (0.55-1.30) Estimat Glomerular Filtration Rate mL/min (>60) Glucose Level 200 MG/DL (74-106) H Calcium Level 8.6 MG/DL (8.5-10.1) Phosphorus Level 2.8 MG/DL (2.5-4.9) Magnesium Level 1.9 MG/DL (1.8-2.4) Total Bilirubin 0.5 MG/DL (0.2-1.0) Direct Bilirubin 0.2 MG/DL (0.0-0.3) Aspartate Amino Transf (AST/SGOT) 33 U/L (15-37) Alanine Aminotransferase (ALT/SGPT) 27 U/L (12-78) Alkaline Phosphatase 65 U/L (46-116) Total Protein 5.6 G/DL (6.4-8.2) L Albumin 1.8 G/DL (3.4-5.0) L Objective HEENT: Normocephalic, atraumatic, PERRLA, EOMI. On rebreathing mask. NECK: JVP <5cm, No carotid bruit. HEART: Normal S1S2, no murmurs, gallops or rubs, Tachycardic. LUNGS: Decrease BS in the left base. ABDOMEN: Soft and nontender, non-distended, no HSM, + BS. EXTREMITIES: No edema, clubbing or cyanosis. Deepak Aldana MD Dec 09, 2018 23:52
[2018-12-10] VITALS (7 sets, daily range): BP systolic 139–156; BP diastolic 73–96
[2018-12-10] MEDS: NovoLOG Insulin Flexpen SUBQ SCH ×4 (05:26→23:00)
--- NOTE | 2018-12-10 07:16 | NUR ---
HAND-OFF: Report given to Davy Rn, pt. stable and no signs of distress noted.
--- NOTE | 2018-12-10 07:20 | NUR ---
NURSE NOTES: Received report from Alton DYKES. Pt is asleep in bed, opens eyes to voice/name, nonverbal. No signs/symptoms of pain or any other discomfort present. Pt is on 2L of oxygen via nasal cannula. IV access on right FA #[id number], saline lock, patent/intact. Dressing 2x2 in place on right upper tight status-post femoral line removal, dry/intact. Skin has sacral optifoam in place, dry/intact, will reassess and change dressing during my shift as ordered/needed. Optifoam dressings in place on bilateral heels for skin protection. Pt is on pressure-relieving mattress. SCDs in place. GT feeding, on Glucerna 1.2 at 55/hr at goal, tolerating well, with no residual or episodes of nausea/vomiting. Also Leiva catheter in place for retention, draining clear/yellow urine. Pt is bedbound, placed on fall and aspiration precautions. Head of bed at 30 degrees, bed height in lowest position, three side rails up, brakes engaged, alarm on, and call light within easy reach. Will continue to monitor pt and follow plan of care per MD orders and protocol.
[2018-12-10 07:35] LABS: HEMATOCRIT 34.7 % (37.0-47.0); HEMOGLOBIN 10.8 G/DL (12.0-16.0); MEAN CORPUSCULAR VOLUME 97 FL (80-99); PLATELET COUNT 44 K/UL (150-450); RED BLOOD COUNT 3.57 M/UL (4.20-5.40); RED CELL DISTRIBUTION WIDTH 17.2 % (11.6-14.8); WHITE BLOOD COUNT 5.8 K/UL (4.8-10.8)
--- NOTE | 2018-12-10 08:04 | General Progress Note ---
Assessment/Plan Problem List: (1) Feeding by G-tube ICD Codes: Z93.1 - Gastrostomy status SNOMED: 602335384, 842889047, 915893354 (2) S/P IVC filter ICD Codes: Z95.828 - Presence of other vascular implants and grafts SNOMED: 92993377, 336439577, 046033400 (3) Sepsis ICD Codes: A41.9 - Sepsis, unspecified organism SNOMED: 27081445 Qualifiers: Qualified Codes: A41.9 - Sepsis, unspecified organism (4) Anemia ICD Codes: D64.9 - Anemia, unspecified SNOMED: 914324749 (5) Thrombocytopenia ICD Codes: D69.6 - Thrombocytopenia, unspecified SNOMED: 125691996 (6) Dementia with behavioral disturbance ICD Codes: F03.91 - Unspecified dementia with behavioral disturbance SNOMED: 3206112641926 Assessment/Plan GTF fu labs abx per ID supportive care fu Subjective ROS Limited/Unobtainable: No Allergies: Coded Allergies: No Known Allergies (Unverified , 07/26/18) Objective Last 24 Hour Vital Signs Date Time Temp Pulse Resp B/P (MAP) Pulse Ox O2 Delivery O2 Flow Rate FiO2 12/10/18 07:38 98 Nasal Cannula 2.0 28 12/10/18 07:38 Nasal Cannula 2.0 28 12/10/18 04:00 104 12/10/18 04:00 98.8 98 20 155/96 (115) 94 12/10/18 04:00 Nasal Cannula 2.0 12/10/18 00:00 64 12/10/18 00:00 97.6 80 16 140/78 (98) 96 12/10/18 00:00 Nasal Cannula 2.0 12/09/18 20:12 74 150/76 12/09/18 20:00 Nasal Cannula 2.0 12/09/18 20:00 76 12/09/18 20:00 97.9 80 16 150/77 (101) 99 12/09/18 19:04 100 Nasal Cannula 2.0 28 12/09/18 19:04 Nasal Cannula 2.0 28 12/09/18 16:42 142/71 12/09/18 16:09 Nasal Cannula 2.0 12/09/18 16:00 71 12/09/18 16:00 98.2 78 20 152/85 (107) 100 12/09/18 12:17 Nasal Cannula 12/09/18 12:17 Nasal Cannula 12/09/18 12:00 Nasal Cannula 2.0 12/09/18 12:00 77 12/09/18 12:00 98.5 78 20 142/71 (94) 99 12/09/18 08:54 85 148/72 Intake and Output 12/09/18 12/10/18 18:59 06:59 Intake Total 1100 ml 1125.0 ml Output Total 2400 ml Balance 1100 ml -1275.0 ml Free Water 200 ml 300 ml IV Total 110.0 ml Tube Feeding 660 ml 715 ml Other 240 ml Output Urine Total 2400 ml # Bowel Movements 2 1 Laboratory Tests 12/10/18 03:55: White Blood Count 5.8, Red Blood Count 3.57L, Hemoglobin 10.8L, Hematocrit 34.7L , Mean Corpuscular Volume 97, Mean Corpuscular Hemoglobin 30.3, Mean Corpuscular Hemoglobin Concent 31.2L, Red Cell Distribution Width 17.2H, Platelet Count 44L, Mean Platelet Volume 8.9, Neutrophils (%) (Auto) , Lymphocytes (%) (Auto) , Monocytes (%) (Auto) , Eosinophils (%) (Auto) , Basophils (%) (Auto) , Neutrophils % (Manual) [Pending], Lymphocytes % (Manual) [Pending], Platelet Estimate [Pending], Platelet Morphology [Pending], Sodium Level [Pending], Potassium Level [Pending], Chloride Level [Pending], Carbon Dioxide Level [Pending], Blood Urea Nitrogen [Pending], Creatinine [Pending], Estimat Glomerular Filtration Rate [Pending], Glucose Level [Pending], Calcium Level [Pending] Height (Feet): 5 Height (Inches): 3.00 Weight (Pounds): 122 General Appearance: lethargic EENT: normal ENT inspection Neck: supple Cardiovascular: normal rate Respiratory/Chest: decreased breath sounds Abdomen: normal bowel sounds, non tender, soft Extremities: non-tender Edwardo Argueta MD Dec 10, 2018 08:04
[2018-12-10 08:30] LABS: ANION GAP 8 mmol/L (5-15); BLOOD UREA NITROGEN 19 mg/dL (7-18); CALCIUM 9.6 MG/DL (8.5-10.1); CARBON DIOXIDE 31 MMOL/L (21-32); CHLORIDE 111 MMOL/L (98-107); CREATININE 0.7 MG/DL (0.55-1.30); POTASSIUM 4.2 MMOL/L (3.5-5.1); SODIUM 150 MMOL/L (136-145)
[2018-12-10] MEDS: Metoprolol 25mg tab ORAL SCH ×2 (09:18→20:40)
--- NOTE | 2018-12-10 11:58 | Pulmonology Progress Note ---
Assessment/Plan Assessment/Plan (1) UTI (urinary tract infection) (2) Pneumonia (3) Sepsis (4) DVT (deep venous thrombosis) (5) Dementia with behavioral disturbance (6) Malnutrition (7) Anemia (8) Thrombocytopenia (9) Feeding by G-tube (10) Elevated troponin I level (11) S/P IVC filter Assessment/Plan Optimize pulmonary hygiene/mobilize as tolerated Titrate down FiO2 to keep SaO2 > 90% RTC and PRN HHN's Abx per ID - ZOSYN to finish today TF's as tolerated Monitor volumes and renal function Monitor CBC, transfuse as needed F/U clinical application consultant recs DVT Px: IVCF FC, continue to discuss GOC Subjective ROS Limited/Unobtainable: Yes Interval Events: no acute events. Breathign stable. Tolerating tube feeds Allergies: Coded Allergies: No Known Allergies (Unverified , 07/26/18) Objective Last 24 Hour Vital Signs Date Time Temp Pulse Resp B/P (MAP) Pulse Ox O2 Delivery O2 Flow Rate FiO2 12/10/18 09:18 80 137/75 12/10/18 08:00 Nasal Cannula 2.0 12/10/18 08:00 98.2 97 21 139/81 (100) 98 12/10/18 08:00 94 12/10/18 07:38 98 Nasal Cannula 2.0 28 12/10/18 07:38 Nasal Cannula 2.0 28 12/10/18 04:00 104 12/10/18 04:00 98.8 98 20 155/96 (115) 94 12/10/18 04:00 Nasal Cannula 2.0 12/10/18 00:00 64 12/10/18 00:00 97.6 80 16 140/78 (98) 96 12/10/18 00:00 Nasal Cannula 2.0 12/09/18 20:12 74 150/76 12/09/18 20:00 Nasal Cannula 2.0 12/09/18 20:00 76 12/09/18 20:00 97.9 80 16 150/77 (101) 99 12/09/18 19:04 100 Nasal Cannula 2.0 28 12/09/18 19:04 Nasal Cannula 2.0 28 12/09/18 16:42 142/71 12/09/18 16:09 Nasal Cannula 2.0 12/09/18 16:00 71 12/09/18 16:00 98.2 78 20 152/85 (107) 100 12/09/18 12:17 Nasal Cannula 12/09/18 12:17 Nasal Cannula 12/09/18 12:00 Nasal Cannula 2.0 12/09/18 12:00 77 12/09/18 12:00 98.5 78 20 142/71 (94) 99 Intake and Output 12/09/18 12/10/18 19:00 07:00 Intake Total 1255 ml 970.0 ml Output Total 1400 ml 1000 ml Balance -145 ml -30.0 ml Free Water 300 ml 200 ml IV Total 110.0 ml Tube Feeding 715 ml 660 ml Other 240 ml Output Urine Total 1400 ml 1000 ml # Bowel Movements 2 1 General Appearance: no acute distress HEENT: atraumatic Respiratory/Chest: lungs clear Cardiovascular: normal rate Abdomen: soft, non tender Extremities: no edema Laboratory Tests 12/10/18 03:55: White Blood Count 5.8, Red Blood Count 3.57L, Hemoglobin 10.8L, Hematocrit 34.7L , Mean Corpuscular Volume 97, Mean Corpuscular Hemoglobin 30.3, Mean Corpuscular Hemoglobin Concent 31.2L, Red Cell Distribution Width 17.2H, Platelet Count 44L, Mean Platelet Volume 8.9, Neutrophils (%) (Auto) , Lymphocytes (%) (Auto) , Monocytes (%) (Auto) , Eosinophils (%) (Auto) , Basophils (%) (Auto) , Differential Total Cells Counted 100, Neutrophils % ( Manual) 88H, Lymphocytes % (Manual) 8L, Monocytes % (Manual) 3, Eosinophils % ( Manual) 1, Basophils % (Manual) 0, Band Neutrophils 0, Platelet Estimate DecreasedL, Platelet Morphology Normal, Anisocytosis 1+, Sodium Level 150H, Potassium Level 4.2, Chloride Level 111H, Carbon Dioxide Level 31, Anion Gap 8, Blood Urea Nitrogen 19H, Creatinine 0.7, Estimat Glomerular Filtration Rate , Glucose Level 147H, Calcium Level 9.6 Current Medications Medications (Trade) Dose Ordered Sig/Laure Route PRN Reason Start Time Stop Time Status Last Admin Dose Admin Acetaminophen (Tylenol) 650 mg Q4HR PRN NG Mild Pain/Temp > 100.5 12/03/18 17:00 01/01/19 04:14 Chlorhexidine Gluconate (Georgina-Hex 2%) 1 applic DAILY@2000 TOPIC 12/03/18 20:00 12/31/18 19:59 12/08/18 20:36 Dextrose (Dextrose 50%) 25 ml Q30M PRN IV Hypoglycemia 12/03/18 13:30 12/31/18 12:29 Dextrose (Dextrose 50%) 50 ml Q30M PRN IV Hypoglycemia 12/03/18 13:30 12/31/18 12:29 Insulin Aspart (NovoLOG) Q6HR SUBQ 12/03/18 18:00 12/31/18 17:59 12/10/18 05:26 Metoprolol Tartrate (Lopressor) 25 mg Q12HR ORAL 12/03/18 17:00 01/02/19 16:59 12/10/18 09:18 Nitroglycerin (Ntg) 1 patch Q24H TDERMAL 12/03/18 16:00 01/01/19 15:59 12/09/18 16:42 Ondansetron HCl (Zofran) 4 mg Q6H PRN IVP Nausea & Vomiting 12/03/18 16:15 12/31/18 10:14 Potassium Chloride (K-Dur) 40 meq TWICE A DAY GT 12/08/18 18:00 01/06/19 17:59 12/10/18 09:18 Lalo Greenfield MD Dec 10, 2018 11:58
--- NOTE | 2018-12-10 14:21 | General Progress Note ---
Assessment/Plan Problem List: (1) UTI (urinary tract infection) ICD Codes: N39.0 - Urinary tract infection, site not specified SNOMED: 20521080 Qualifiers: Qualified Codes: N39.0 - Urinary tract infection, site not specified (2) Pneumonia ICD Codes: J18.9 - Pneumonia, unspecified organism SNOMED: 076778012, 207858252, 452897299 Qualifiers: Qualified Codes: J18.1 - Lobar pneumonia, unspecified organism (3) Elevated troponin ICD Codes: R74.8 - Abnormal levels of other serum enzymes SNOMED: 128647294, 661174727, 179880618 (4) Dehydration ICD Codes: E86.0 - Dehydration SNOMED: 42352879 (5) Hypokalemia ICD Codes: E87.6 - Hypokalemia SNOMED: 83773719 (6) Malnutrition ICD Codes: E46 - Unspecified protein-calorie malnutrition SNOMED: 07984313 (7) Dementia with behavioral disturbance ICD Codes: F03.91 - Unspecified dementia with behavioral disturbance SNOMED: 0064176825458 (8) Encephalopathy due to metabolic factor or toxin SNOMED: 211855873 (9) Anemia ICD Codes: D64.9 - Anemia, unspecified SNOMED: 363466455 (10) Sepsis ICD Codes: A41.9 - Sepsis, unspecified organism SNOMED: 80920590 Qualifiers: Qualified Codes: A41.9 - Sepsis, unspecified organism (11) Diabetic nephropathy 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 SNOMED: 178835200 Status: progressing Assessment/Plan encephalopathic reviewed chart and labs sepsis malnutrition uti pna dehydraton elev trop check h/h check lytes no fever tolerating peg abx per id Subjective ROS Limited/Unobtainable: Yes Allergies: Coded Allergies: No Known Allergies (Unverified , 07/26/18) Objective Last 24 Hour Vital Signs Date Time Temp Pulse Resp B/P (MAP) Pulse Ox O2 Delivery O2 Flow Rate FiO2 12/10/18 12:00 73 12/10/18 12:00 98.1 71 22 140/77 (98) 99 12/10/18 12:00 Nasal Cannula 2.0 12/10/18 09:18 80 137/75 12/10/18 08:00 Nasal Cannula 2.0 12/10/18 08:00 98.2 97 21 139/81 (100) 98 12/10/18 08:00 94 12/10/18 07:38 98 Nasal Cannula 2.0 28 12/10/18 07:38 Nasal Cannula 2.0 28 12/10/18 04:00 104 12/10/18 04:00 98.8 98 20 155/96 (115) 94 12/10/18 04:00 Nasal Cannula 2.0 12/10/18 00:00 64 12/10/18 00:00 97.6 80 16 140/78 (98) 96 12/10/18 00:00 Nasal Cannula 2.0 12/09/18 20:12 74 150/76 12/09/18 20:00 Nasal Cannula 2.0 12/09/18 20:00 76 12/09/18 20:00 97.9 80 16 150/77 (101) 99 12/09/18 19:04 100 Nasal Cannula 2.0 28 12/09/18 19:04 Nasal Cannula 2.0 28 12/09/18 16:42 142/71 12/09/18 16:09 Nasal Cannula 2.0 12/09/18 16:00 71 12/09/18 16:00 98.2 78 20 152/85 (107) 100 Intake and Output 12/09/18 12/10/18 19:00 07:00 Intake Total 1255 ml 970.0 ml Output Total 1400 ml 1000 ml Balance -145 ml -30.0 ml Free Water 300 ml 200 ml IV Total 110.0 ml Tube Feeding 715 ml 660 ml Other 240 ml Output Urine Total 1400 ml 1000 ml # Bowel Movements 2 1 Laboratory Tests 12/10/18 03:55: White Blood Count 5.8, Red Blood Count 3.57L, Hemoglobin 10.8L, Hematocrit 34.7L , Mean Corpuscular Volume 97, Mean Corpuscular Hemoglobin 30.3, Mean Corpuscular Hemoglobin Concent 31.2L, Red Cell Distribution Width 17.2H, Platelet Count 44L, Mean Platelet Volume 8.9, Neutrophils (%) (Auto) , Lymphocytes (%) (Auto) , Monocytes (%) (Auto) , Eosinophils (%) (Auto) , Basophils (%) (Auto) , Differential Total Cells Counted 100, Neutrophils % ( Manual) 88H, Lymphocytes % (Manual) 8L, Monocytes % (Manual) 3, Eosinophils % ( Manual) 1, Basophils % (Manual) 0, Band Neutrophils 0, Platelet Estimate DecreasedL, Platelet Morphology Normal, Anisocytosis 1+, Sodium Level 150H, Potassium Level 4.2, Chloride Level 111H, Carbon Dioxide Level 31, Anion Gap 8, Blood Urea Nitrogen 19H, Creatinine 0.7, Estimat Glomerular Filtration Rate , Glucose Level 147H, Calcium Level 9.6 Height (Feet): 5 Height (Inches): 3.00 Weight (Pounds): 122 General Appearance: lethargic Cardiovascular: normal rate Respiratory/Chest: lungs clear Abdomen: soft Yi Asencio MD Dec 10, 2018 14:21
--- NOTE | 2018-12-10 14:34 | Nephrology Progress Note ---
Assessment/Plan Problem List: (1) Sepsis Assessment: low bp (2) Oliguria Assessment: due low bp (3) Anemia (4) Hypokalemia (5) Diabetic nephropathy (6) Elevated troponin I level Assessment Oliguria due to low BP Sepsis and low BP Elevated troponin UTI (urinary tract infection) Pneumonia Anemia worsening DM+ Proteinuria: Nephropathy s/p IVC Filter Acute encephalopathy HypoAlbuminemia Plan D5W 500 cc K Phos , KCl , MgSo4 IV ordered antibiotics avoid nephrotoxics anemia mac per orders Subjective ROS Limited/Unobtainable: No Constitutional: Reports: malaise Objective Objective Last 24 Hour Vital Signs Date Time Temp Pulse Resp B/P (MAP) Pulse Ox O2 Delivery O2 Flow Rate FiO2 12/10/18 12:00 73 12/10/18 12:00 98.1 71 22 140/77 (98) 99 12/10/18 12:00 Nasal Cannula 2.0 12/10/18 09:18 80 137/75 12/10/18 08:00 Nasal Cannula 2.0 12/10/18 08:00 98.2 97 21 139/81 (100) 98 12/10/18 08:00 94 12/10/18 07:38 98 Nasal Cannula 2.0 28 12/10/18 07:38 Nasal Cannula 2.0 28 12/10/18 04:00 104 12/10/18 04:00 98.8 98 20 155/96 (115) 94 12/10/18 04:00 Nasal Cannula 2.0 12/10/18 00:00 64 12/10/18 00:00 97.6 80 16 140/78 (98) 96 12/10/18 00:00 Nasal Cannula 2.0 12/09/18 20:12 74 150/76 12/09/18 20:00 Nasal Cannula 2.0 12/09/18 20:00 76 12/09/18 20:00 97.9 80 16 150/77 (101) 99 12/09/18 19:04 100 Nasal Cannula 2.0 28 12/09/18 19:04 Nasal Cannula 2.0 28 12/09/18 16:42 142/71 12/09/18 16:09 Nasal Cannula 2.0 12/09/18 16:00 71 12/09/18 16:00 98.2 78 20 152/85 (107) 100 Intake and Output 12/09/18 12/10/18 19:00 07:00 Intake Total 1255 ml 970.0 ml Output Total 1400 ml 1000 ml Balance -145 ml -30.0 ml Free Water 300 ml 200 ml IV Total 110.0 ml Tube Feeding 715 ml 660 ml Other 240 ml Output Urine Total 1400 ml 1000 ml # Bowel Movements 2 1 Laboratory Tests 12/10/18 03:55: White Blood Count 5.8, Red Blood Count 3.57L, Hemoglobin 10.8L, Hematocrit 34.7L , Mean Corpuscular Volume 97, Mean Corpuscular Hemoglobin 30.3, Mean Corpuscular Hemoglobin Concent 31.2L, Red Cell Distribution Width 17.2H, Platelet Count 44L, Mean Platelet Volume 8.9, Neutrophils (%) (Auto) , Lymphocytes (%) (Auto) , Monocytes (%) (Auto) , Eosinophils (%) (Auto) , Basophils (%) (Auto) , Differential Total Cells Counted 100, Neutrophils % ( Manual) 88H, Lymphocytes % (Manual) 8L, Monocytes % (Manual) 3, Eosinophils % ( Manual) 1, Basophils % (Manual) 0, Band Neutrophils 0, Platelet Estimate DecreasedL, Platelet Morphology Normal, Anisocytosis 1+, Sodium Level 150H, Potassium Level 4.2, Chloride Level 111H, Carbon Dioxide Level 31, Anion Gap 8, Blood Urea Nitrogen 19H, Creatinine 0.7, Estimat Glomerular Filtration Rate , Glucose Level 147H, Calcium Level 9.6 Height (Feet): 5 Height (Inches): 3.00 Weight (Pounds): 122 Parvez Bergman MD Dec 10, 2018 14:34
[2018-12-10] MEDS: Nitroglycerin Patch 0.4mg TDERMAL SCH (15:10)
--- NOTE | 2018-12-10 19:28 | NUR ---
HAND-OFF: Report given to Chana DYKES. Pt is resting in bed in stable condition. Endorsed plan of care.
--- NOTE | 2018-12-10 19:30 | NUR ---
NURSE NOTES: Report received from DONIS Aviles. Pt non-verbal, opens eyes spontaneously. awake overnight monitor. shows SR. Pt on 2LNC, Tolerating well. Shows no signs of cardiac or respiratory distress. GT is present and patent with glucerna 1.2 running @ 55 ml/hr. Leiva catheter present and draining appropriately. Accuchecks are Q6H. See WCP for skin alterations. Pt has a RFA22g IV SL. Bed in lowest position, bed alarms placed. Will continue to monitor and with patients plan of care.
--- NOTE | 2018-12-10 19:33 | Cardiology Progress Note ---
Assessment/Plan Assessment/Plan 1. Septic shock, most likely due to bilateral pneumonia as well as associated effusion. Normal LV systolic function with grade I LVDD. 2. Slight elevation of troponin I level could be secondary to sepsis although demand ischemia situation cannot be ruled out. 3. Prerenal azotemia, resolved. 4. DVT status post IVC filter. 5. History of metabolic encephalopathy. 6. History of dementia. 7. History of CVA. 8. History of pancytopenia. 9. Sinus tachycardia, resolved. Subjective Subjective Sinus rhythm at rate of 66. On NC oxygen. Objective Last 24 Hour Vital Signs Date Time Temp Pulse Resp B/P (MAP) Pulse Ox O2 Delivery O2 Flow Rate FiO2 12/10/18 19:23 100 Nasal Cannula 1.0 24 12/10/18 19:23 Nasal Cannula 1.0 24 12/10/18 16:00 66 12/10/18 16:00 98.3 81 22 156/73 (100) 99 12/10/18 16:00 Nasal Cannula 2.0 12/10/18 15:10 140/77 12/10/18 12:00 73 12/10/18 12:00 98.1 71 22 140/77 (98) 99 12/10/18 12:00 Nasal Cannula 2.0 12/10/18 09:18 80 137/75 12/10/18 08:00 Nasal Cannula 2.0 12/10/18 08:00 98.2 97 21 139/81 (100) 98 12/10/18 08:00 94 12/10/18 07:38 98 Nasal Cannula 2.0 28 12/10/18 07:38 Nasal Cannula 2.0 28 12/10/18 04:00 104 12/10/18 04:00 98.8 98 20 155/96 (115) 94 12/10/18 04:00 Nasal Cannula 2.0 12/10/18 00:00 64 12/10/18 00:00 97.6 80 16 140/78 (98) 96 12/10/18 00:00 Nasal Cannula 2.0 12/09/18 20:12 74 150/76 12/09/18 20:00 Nasal Cannula 2.0 12/09/18 20:00 76 12/09/18 20:00 97.9 80 16 150/77 (101) 99 Intake and Output 12/09/18 12/10/18 19:00 07:00 Intake Total 1255 ml 970.0 ml Output Total 1400 ml 1000 ml Balance -145 ml -30.0 ml Free Water 300 ml 200 ml IV Total 110.0 ml Tube Feeding 715 ml 660 ml Other 240 ml Output Urine Total 1400 ml 1000 ml # Bowel Movements 2 1 2D Echo: EF55%, Large left pleural eff., Grade I LVDD, Mild AR/Mod MR/CT,RVSP 37mmHg Laboratory Tests Test 12/10/18 03:55 White Blood Count 5.8 K/UL (4.8-10.8) Red Blood Count 3.57 M/UL (4.20-5.40) L Hemoglobin 10.8 G/DL (12.0-16.0) L Hematocrit 34.7 % (37.0-47.0) L Mean Corpuscular Volume 97 FL (80-99) Mean Corpuscular Hemoglobin 30.3 PG (27.0-31.0) Mean Corpuscular Hemoglobin Concent 31.2 G/DL (32.0-36.0) L Red Cell Distribution Width 17.2 % (11.6-14.8) H Platelet Count 44 K/UL (150-450) L Mean Platelet Volume 8.9 FL (6.5-10.1) Neutrophils (%) (Auto) % (45.0-75.0) Lymphocytes (%) (Auto) % (20.0-45.0) Monocytes (%) (Auto) % (1.0-10.0) Eosinophils (%) (Auto) % (0.0-3.0) Basophils (%) (Auto) % (0.0-2.0) Differential Total Cells Counted 100 Neutrophils % (Manual) 88 % (45-75) H Lymphocytes % (Manual) 8 % (20-45) L Monocytes % (Manual) 3 % (1-10) Eosinophils % (Manual) 1 % (0-3) Basophils % (Manual) 0 % (0-2) Band Neutrophils 0 % (0-8) Platelet Estimate Decreased L Platelet Morphology Normal Anisocytosis 1+ Sodium Level 150 MMOL/L (136-145) H Potassium Level 4.2 MMOL/L (3.5-5.1) Chloride Level 111 MMOL/L (98-107) H Carbon Dioxide Level 31 MMOL/L (21-32) Anion Gap 8 mmol/L (5-15) Blood Urea Nitrogen 19 mg/dL (7-18) H Creatinine 0.7 MG/DL (0.55-1.30) Estimat Glomerular Filtration Rate mL/min (>60) Glucose Level 147 MG/DL (74-106) H Calcium Level 9.6 MG/DL (8.5-10.1) Objective HEENT: Normocephalic, atraumatic, PERRLA, EOMI. On rebreathing mask. NECK: JVP <5cm, No carotid bruit. HEART: Normal S1S2, no murmurs, gallops or rubs, Tachycardic. LUNGS: Decrease BS in the left base. ABDOMEN: Soft and nontender, non-distended, no HSM, + BS. EXTREMITIES: No edema, clubbing or cyanosis. Deepak Aldana MD Dec 10, 2018 19:33
[2018-12-10] MEDS: Dyna-Hex 2% Top Sol 2oz TOPIC SCH (20:00)
--- NOTE | 2018-12-10 20:23 | Cardiology Report ---
APPROVED REPORT EKG Measurement Heart [id number] Sinus tachycardia Nonspecific ST and T wave abnormality Abnormal ECG
[2018-12-11] VITALS: BP 144/72
[2018-12-11 04:00] VITALS: BP 150/72
[2018-12-11] MEDS: NovoLOG Insulin Flexpen SUBQ SCH ×4 (05:47→23:30)
--- NOTE | 2018-12-11 07:20 | NUR ---
NURSE NOTES: RECEIVED PATIENT FROM Meagan BUENO RN. PATIENT IS ASLEEP. NOTED FAMILY MEMBER AT THE BEDSIDE. HOOKED TO STUDENT DEVELOPMENT SPECIALIST. ON 10L VIA NC. NO SIGNS OF DISTRESS OF THE MOMENT. GT TUBE IN PLACE, DRY AND INTACT. ON GTF RUNNING GLUCERNA 1.2 AT 55CC/HR. NOTED CHAMORRO, CONNECTED TO BAG. PATENT AND DRAINING URINE. IV ON R FA G22, SL. SIDE RAILS UP. BED AT LOWEST POSITION. CALL LIGHT WITHIN REACH. WILL CONTINUE TO MONITOR.
[2018-12-11 08:00] VITALS: BP 145/111
[2018-12-11] MEDS: Metoprolol 25mg tab ORAL SCH ×2 (08:29→21:24)
--- NOTE | 2018-12-11 10:49 | Infectious Diseases Prog Note ---
Assessment/Plan Assessment/Plan A: 1. Proteus Sepsis 2. urinary tract infection with E.coli & Proteus 3. Atelectasis on chest x-ray, may have underlying pneumonia. 4. Diabetes mellitus type 2. 5. Dementia. 6. Pancytopenia. 7. Pressure ulcer 8. MRSA & VRE colonization RECOMMENDATION: 1. observe off antibiotic Subjective ROS Limited/Unobtainable: Yes Allergies: Coded Allergies: No Known Allergies (Unverified , 07/26/18) Objective Vital Signs Last 24 Hour Vital Signs Date Time Temp Pulse Resp B/P (MAP) Pulse Ox O2 Delivery O2 Flow Rate FiO2 12/11/18 08:29 86 145/111 12/11/18 08:00 98.4 86 17 145/111 (122) 99 12/11/18 08:00 Nasal Cannula 2.0 12/11/18 08:00 65 12/11/18 04:00 69 12/11/18 04:00 99.1 74 20 150/72 (98) 99 12/11/18 04:00 Nasal Cannula 2.0 12/11/18 00:00 65 12/11/18 00:00 Nasal Cannula 2.0 12/11/18 00:00 99.2 67 20 144/72 (96) 100 12/10/18 20:40 84 149/81 12/10/18 20:00 82 12/10/18 20:00 Nasal Cannula 2.0 12/10/18 20:00 99.5 84 20 141/81 (101) 98 12/10/18 19:23 100 Nasal Cannula 1.0 24 12/10/18 19:23 Nasal Cannula 1.0 24 12/10/18 16:00 66 12/10/18 16:00 98.3 81 22 156/73 (100) 99 12/10/18 16:00 Nasal Cannula 2.0 12/10/18 15:10 140/77 12/10/18 12:00 73 12/10/18 12:00 98.1 71 22 140/77 (98) 99 12/10/18 12:00 Nasal Cannula 2.0 Height (Feet): 5 Height (Inches): 3.00 Weight (Pounds): 122 General Appearance: no acute distress HEENT: mucous membranes moist Respiratory/Chest: lungs clear Cardiovascular: normal rate Abdomen: soft, non tender Extremities: no edema Skin: ulcers, other - sacral, heels Neurologic/Psychiatric: aphasia, other - open eyes Current Medications Medications (Trade) Dose Ordered Sig/Laure Route PRN Reason Start Time Stop Time Status Last Admin Dose Admin Acetaminophen (Tylenol) 650 mg Q4HR PRN NG Mild Pain/Temp > 100.5 12/03/18 17:00 01/01/19 04:14 Chlorhexidine Gluconate (Georgina-Hex 2%) 1 applic DAILY@2000 TOPIC 12/03/18 20:00 12/31/18 19:59 12/08/18 20:36 Dextrose (Dextrose 50%) 25 ml Q30M PRN IV Hypoglycemia 12/03/18 13:30 12/31/18 12:29 Dextrose (Dextrose 50%) 50 ml Q30M PRN IV Hypoglycemia 12/03/18 13:30 12/31/18 12:29 Insulin Aspart (NovoLOG) Q6HR SUBQ 12/03/18 18:00 12/31/18 17:59 12/11/18 05:47 Metoprolol Tartrate (Lopressor) 25 mg Q12HR ORAL 12/03/18 17:00 01/02/19 16:59 12/11/18 08:29 Nitroglycerin (Ntg) 1 patch Q24H TDERMAL 12/03/18 16:00 01/01/19 15:59 12/10/18 15:10 Ondansetron HCl (Zofran) 4 mg Q6H PRN IVP Nausea & Vomiting 12/03/18 16:15 12/31/18 10:14 Potassium Chloride (K-Dur) 40 meq DAILY GT 12/11/18 09:00 01/06/19 17:59 12/11/18 08:29 Shimon Card MD Dec 11, 2018 10:49
--- NOTE | 2018-12-11 11:01 | General Progress Note ---
Assessment/Plan Problem List: (1) Feeding by G-tube ICD Codes: Z93.1 - Gastrostomy status SNOMED: 479009491, 588161615, 728145682 (2) S/P IVC filter ICD Codes: Z95.828 - Presence of other vascular implants and grafts SNOMED: 56992383, 883454907, 784644081 (3) Sepsis ICD Codes: A41.9 - Sepsis, unspecified organism SNOMED: 80982388 Qualifiers: Qualified Codes: A41.9 - Sepsis, unspecified organism (4) Anemia ICD Codes: D64.9 - Anemia, unspecified SNOMED: 479440270 (5) Thrombocytopenia ICD Codes: D69.6 - Thrombocytopenia, unspecified SNOMED: 763203076 (6) Dementia with behavioral disturbance ICD Codes: F03.91 - Unspecified dementia with behavioral disturbance SNOMED: 6346418060118 Assessment/Plan GTF fu labs abx per ID supportive care fu Subjective ROS Limited/Unobtainable: No Allergies: Coded Allergies: No Known Allergies (Unverified , 07/26/18) Objective Last 24 Hour Vital Signs Date Time Temp Pulse Resp B/P (MAP) Pulse Ox O2 Delivery O2 Flow Rate FiO2 12/11/18 08:29 86 145/111 12/11/18 08:00 98.4 86 17 145/111 (122) 99 12/11/18 08:00 Nasal Cannula 2.0 12/11/18 08:00 65 12/11/18 04:00 69 12/11/18 04:00 99.1 74 20 150/72 (98) 99 12/11/18 04:00 Nasal Cannula 2.0 12/11/18 00:00 65 12/11/18 00:00 Nasal Cannula 2.0 12/11/18 00:00 99.2 67 20 144/72 (96) 100 12/10/18 20:40 84 149/81 12/10/18 20:00 82 12/10/18 20:00 Nasal Cannula 2.0 12/10/18 20:00 99.5 84 20 141/81 (101) 98 12/10/18 19:23 100 Nasal Cannula 1.0 24 12/10/18 19:23 Nasal Cannula 1.0 24 12/10/18 16:00 66 12/10/18 16:00 98.3 81 22 156/73 (100) 99 12/10/18 16:00 Nasal Cannula 2.0 12/10/18 15:10 140/77 12/10/18 12:00 73 12/10/18 12:00 98.1 71 22 140/77 (98) 99 12/10/18 12:00 Nasal Cannula 2.0 Intake and Output 12/10/18 12/11/18 18:59 06:59 Intake Total 410 ml 960 ml Output Total 2000 ml 1200 ml Balance -1590 ml -240 ml Free Water 300 ml 300 ml Tube Feeding 110 ml 660 ml Output Urine Total 2000 ml 1200 ml # Bowel Movements 1 Height (Feet): 5 Height (Inches): 3.00 Weight (Pounds): 122 General Appearance: lethargic EENT: normal ENT inspection Neck: supple Cardiovascular: normal rate Respiratory/Chest: decreased breath sounds Abdomen: normal bowel sounds, non tender, soft Extremities: non-tender Edwardo Argueta MD Dec 11, 2018 11:00
[2018-12-11 12:00] VITALS: BP 158/77
--- NOTE | 2018-12-11 12:04 | NUR ---
CASE MANAGEMENT: REVIEW 12/11/2018 SI:SEPSIS. T 98.4 HR 65 RR 17 B/P 145/111 SATS 99% ON 2L/NC NA 150 CL 111 BUN 19 GLU 147 IS: K DUR GT QD LOPRESSOR PO Q12H INSULIN ASPART SUBQ Q6H STEP DOWN UNIT STATUS DCP: PATIENT TO BE DISCHARGED TO [facility] ONCE MEDICALLY CLEARED. PLAN OF CARE: SUPPORTIVE CARE
--- NOTE | 2018-12-11 13:04 | Pulmonology Progress Note ---
Assessment/Plan Assessment/Plan (1) UTI (urinary tract infection) (2) Pneumonia (3) Sepsis (4) DVT (deep venous thrombosis) (5) Dementia with behavioral disturbance (6) Malnutrition (7) Anemia (8) Thrombocytopenia (9) Feeding by G-tube (10) Elevated troponin I level (11) S/P IVC filter Assessment/Plan Optimize pulmonary hygiene/mobilize as tolerated Titrate down FiO2 to keep SaO2 > 90% RTC and PRN HHN's Abx per ID - ZOSYN to finish today TF's as tolerated Monitor volumes and renal function Monitor CBC, transfuse as needed F/U tax credit leasing consultant recs DVT Px: IVCF FC, continue to discuss GOC Subjective ROS Limited/Unobtainable: Yes Interval Events: no acute events. Not arousable. Allergies: Coded Allergies: No Known Allergies (Unverified , 07/26/18) Objective Last 24 Hour Vital Signs Date Time Temp Pulse Resp B/P (MAP) Pulse Ox O2 Delivery O2 Flow Rate FiO2 12/11/18 12:00 98.4 86 18 158/77 (104) 100 12/11/18 12:00 Nasal Cannula 2.0 12/11/18 08:29 86 145/111 12/11/18 08:00 98.4 86 17 145/111 (122) 99 12/11/18 08:00 Nasal Cannula 2.0 12/11/18 08:00 65 12/11/18 04:00 69 12/11/18 04:00 99.1 74 20 150/72 (98) 99 12/11/18 04:00 Nasal Cannula 2.0 12/11/18 00:00 65 12/11/18 00:00 Nasal Cannula 2.0 12/11/18 00:00 99.2 67 20 144/72 (96) 100 12/10/18 20:40 84 149/81 12/10/18 20:00 82 12/10/18 20:00 Nasal Cannula 2.0 12/10/18 20:00 99.5 84 20 141/81 (101) 98 12/10/18 19:23 100 Nasal Cannula 1.0 24 12/10/18 19:23 Nasal Cannula 1.0 24 12/10/18 16:00 66 12/10/18 16:00 98.3 81 22 156/73 (100) 99 12/10/18 16:00 Nasal Cannula 2.0 12/10/18 15:10 140/77 Intake and Output 12/10/18 12/11/18 19:00 07:00 Intake Total 410 ml 960 ml Output Total 2000 ml 1200 ml Balance -1590 ml -240 ml Free Water 300 ml 300 ml Tube Feeding 110 ml 660 ml Output Urine Total 2000 ml 1200 ml # Bowel Movements 1 General Appearance: no acute distress HEENT: mucous membranes moist Respiratory/Chest: lungs clear Cardiovascular: normal rate Abdomen: soft, non tender Extremities: no edema Current Medications Medications (Trade) Dose Ordered Sig/Laure Route PRN Reason Start Time Stop Time Status Last Admin Dose Admin Acetaminophen (Tylenol) 650 mg Q4HR PRN NG Mild Pain/Temp > 100.5 12/03/18 17:00 01/01/19 04:14 Chlorhexidine Gluconate (Georgina-Hex 2%) 1 applic DAILY@2000 TOPIC 12/03/18 20:00 12/31/18 19:59 12/08/18 20:36 Dextrose (Dextrose 50%) 25 ml Q30M PRN IV Hypoglycemia 12/03/18 13:30 12/31/18 12:29 Dextrose (Dextrose 50%) 50 ml Q30M PRN IV Hypoglycemia 12/03/18 13:30 12/31/18 12:29 Insulin Aspart (NovoLOG) Q6HR SUBQ 12/03/18 18:00 12/31/18 17:59 12/11/18 11:47 Metoprolol Tartrate (Lopressor) 25 mg Q12HR ORAL 12/03/18 17:00 01/02/19 16:59 12/11/18 08:29 Nitroglycerin (Ntg) 1 patch Q24H TDERMAL 12/03/18 16:00 01/01/19 15:59 12/10/18 15:10 Ondansetron HCl (Zofran) 4 mg Q6H PRN IVP Nausea & Vomiting 12/03/18 16:15 12/31/18 10:14 Potassium Chloride (K-Dur) 40 meq DAILY GT 12/11/18 09:00 01/06/19 17:59 12/11/18 08:29 Lalo Greenfield MD Dec 11, 2018 13:04
--- NOTE | 2018-12-11 15:10 | Nephrology Progress Note ---
Assessment/Plan Problem List: (1) Sepsis Assessment: low bp (2) Oliguria Assessment: due low bp (3) Anemia (4) Hypokalemia (5) Diabetic nephropathy (6) Elevated troponin I level Assessment Oliguria due to low BP Sepsis and low BP Elevated troponin UTI (urinary tract infection) Pneumonia Anemia worsening DM+ Proteinuria: Nephropathy s/p IVC Filter Acute encephalopathy HypoAlbuminemia Plan no labs today D5W 500 cc K Phos , KCl , MgSo4 IV ordered antibiotics avoid nephrotoxics anemia mac per orders Subjective ROS Limited/Unobtainable: No Constitutional: Reports: malaise, weakness Objective Objective Last 24 Hour Vital Signs Date Time Temp Pulse Resp B/P (MAP) Pulse Ox O2 Delivery O2 Flow Rate FiO2 12/11/18 12:00 74 12/11/18 12:00 98.4 86 18 158/77 (104) 100 12/11/18 12:00 Nasal Cannula 2.0 12/11/18 08:29 86 145/111 12/11/18 08:00 98.4 86 17 145/111 (122) 99 12/11/18 08:00 Nasal Cannula 2.0 12/11/18 08:00 65 12/11/18 07:42 Nasal Cannula 2.0 28 12/11/18 07:41 98 Nasal Cannula 2.0 24 12/11/18 04:00 69 12/11/18 04:00 99.1 74 20 150/72 (98) 99 12/11/18 04:00 Nasal Cannula 2.0 12/11/18 00:00 65 12/11/18 00:00 Nasal Cannula 2.0 12/11/18 00:00 99.2 67 20 144/72 (96) 100 12/10/18 20:40 84 149/81 12/10/18 20:00 82 12/10/18 20:00 Nasal Cannula 2.0 12/10/18 20:00 99.5 84 20 141/81 (101) 98 12/10/18 19:23 100 Nasal Cannula 1.0 24 12/10/18 19:23 Nasal Cannula 1.0 24 12/10/18 16:00 66 12/10/18 16:00 98.3 81 22 156/73 (100) 99 12/10/18 16:00 Nasal Cannula 2.0 12/10/18 15:10 140/77 Intake and Output 12/10/18 12/11/18 19:00 07:00 Intake Total 410 ml 960 ml Output Total 2000 ml 1200 ml Balance -1590 ml -240 ml Free Water 300 ml 300 ml Tube Feeding 110 ml 660 ml Output Urine Total 2000 ml 1200 ml # Bowel Movements 1 Height (Feet): 5 Height (Inches): 3.00 Weight (Pounds): 122 General Appearance: no apparent distress Cardiovascular: normal rate Respiratory/Chest: decreased breath sounds Abdomen: distended Parvez Bergman MD Dec 11, 2018 15:10
[2018-12-11 16:00] VITALS: BP 138/69
--- NOTE | 2018-12-11 16:08 | General Progress Note ---
Assessment/Plan Assessment/Plan Assessment/Recs: # DVT of the left leg s/p IVC filter in 07/2018-- superficial femoral vein which is a deep vein, new onset, has not had these symptoms before. Lower hgb and plts --> given decreased h/h, low thrombocytopenia, do not recommend anticoag --> appreciate Dr. Parekh and Mariam alcantars from prior admission --> smear reviewed # Pancytopenia, likely related to septicemia, appears new baseline 50-70k, several causes possible including viral, medication or intrabone marrow related. --> Cont to monitor plt count for improvement --> US abd: Mild left hydronephrosis. Possible left renal calyceal calculi. Negative for gallstones or dilated ducts Debris noted within the bladder --> Hep panel and HIV are both negative --> given extremely poor condition do not recommend a bone marrow biopsy, have discussed with family 08/01 with --> will rediscuss once sepsis resolves --> transfuse if plt <20k # Anemia of chronic disease. Multifactorial. Since admission Hgb has consistently remained between 8-9. --> Cont to monitor for stability --> Hgb goal above 7. Transfuse prn. --> IV iron completed prior admission and feritin is elevated # Dehydration. IVF has been administered --> improved # DM OOC --> A1C goal <7 --> Cont on insulin # Bacteremia/prior UTI. --> ID is following. Appreciate recs. --> Pt on IV abx. --> Cultures surveillance as per id # PEG placement 08/04. Greatly appreciate consultation! Subjective Allergies: Coded Allergies: No Known Allergies (Unverified , 07/26/18) Subjective 12/02: seen by bedside, hgb 7.6, will transfuse as needed, plt trending down, GTF on hold, patient on BIPAP, has been tachycardic over night, abx per ID 12/04: Seen by bedside, out of ICU, tolerating TF, off BIPAP, plt trending down to 45, hgb 7.6. 12/05: Pt is resting in bed, hgb 6.6 and plt 39, received transfusion, no events. 12/06: seen by bedside,awake, comfortable, plt 43 12/07: awake, comfortable, plt remains low, hgb 8.8 12/08: seen by bedside, awake, comfortable, hgb 8.3, no events 12/09: awake, comfortable, no acute distress, plt 37 12/11: no events to report, no fevers or chills, no night sweats, plts stable Objective Last 24 Hour Vital Signs Date Time Temp Pulse Resp B/P (MAP) Pulse Ox O2 Delivery O2 Flow Rate FiO2 12/11/18 12:00 74 12/11/18 12:00 98.4 86 18 158/77 (104) 100 12/11/18 12:00 Nasal Cannula 2.0 12/11/18 08:29 86 145/111 12/11/18 08:00 98.4 86 17 145/111 (122) 99 12/11/18 08:00 Nasal Cannula 2.0 12/11/18 08:00 65 12/11/18 07:42 Nasal Cannula 2.0 28 12/11/18 07:41 98 Nasal Cannula 2.0 24 12/11/18 04:00 69 12/11/18 04:00 99.1 74 20 150/72 (98) 99 12/11/18 04:00 Nasal Cannula 2.0 12/11/18 00:00 65 12/11/18 00:00 Nasal Cannula 2.0 12/11/18 00:00 99.2 67 20 144/72 (96) 100 12/10/18 20:40 84 149/81 12/10/18 20:00 82 12/10/18 20:00 Nasal Cannula 2.0 12/10/18 20:00 99.5 84 20 141/81 (101) 98 12/10/18 19:23 100 Nasal Cannula 1.0 24 12/10/18 19:23 Nasal Cannula 1.0 24 Intake and Output 12/10/18 12/11/18 19:00 07:00 Intake Total 410 ml 960 ml Output Total 2000 ml 1200 ml Balance -1590 ml -240 ml Free Water 300 ml 300 ml Tube Feeding 110 ml 660 ml Output Urine Total 2000 ml 1200 ml # Bowel Movements 1 Height (Feet): 5 Height (Inches): 3.00 Weight (Pounds): 122 Objective Physical Exam Vitals: reviewed Gen: confused, on bipap, unable to converse, sleepy Pulm: ++ crackles ++ bipap CV: RRR, no mgr Abd: soft, nt, nd ++ peg Ext: no swelling of lower ext Neuro: demented Dewayne Gayle MD Dec 11, 2018 16:08
[2018-12-11] MEDS: Nitroglycerin Patch 0.4mg TDERMAL SCH (16:23)
[2018-12-11] MEDS ORDERED: NS 275ml ONE (17:25)
--- NOTE | 2018-12-11 18:10 | NUR ---
NURSE NOTES: PATIENT KEPT CLEAN AND DRY. NO SIGNS OF DISTRESS. WILL CONTINUE TO MONITOR.
--- NOTE | 2018-12-11 18:50 | NUR ---
HAND-OFF: Report given to Levar Lainez RN.
--- NOTE | 2018-12-11 18:50 | NUR ---
NURSE NOTES: Received report from DONIS Almanzar. Patient in bed resting, open eyes on verbal stimulus. Patient transferred from [facility] to tele via hospital bed. Patient on 2L oxygen via NC. No active s/s cardiac, respiratory distress noticed at this time. Leiva catheter draining well to gravity. Patient on P200 mattress. No belonging. IV site on right FA 22G, asymptomatic, patent, intact. Bed in lowest position, side rails upx2, call light within reach. Will continue to monitor.
[2018-12-11] MEDS ORDERED: Acetaminophen 650mg/20.3ml NG PRN (19:00)
[2018-12-11 20:00] VITALS: BP 169/77
[2018-12-11] MEDS ORDERED: Dyna-Hex 2% Top Sol 2oz TOPIC SCH (20:00)
--- NOTE | 2018-12-11 20:00 | NUR ---
Received report from nurse Greyson DYKES. Awake, in no distress. Gtube feed ongoing with minimal residual. Kept bed in low position with side rails up. Leiva intact with adequate amount of clear urine output. Continue to monitor
--- NOTE | 2018-12-11 20:14 | NUR ---
HAND-OFF: Report given to DONIS Gallegos.
--- NOTE | 2018-12-11 20:35 | Cardiology Progress Note ---
Assessment/Plan Assessment/Plan 1. Septic shock, most likely due to bilateral pneumonia as well as associated effusion. Normal LV systolic function with grade I LVDD. 2. Slight elevation of troponin I level likely due to sepsis. 3. DVT status post IVC filter. 4. History of metabolic encephalopathy. 5. History of dementia. 6. History of CVA. 7. History of pancytopenia. Subjective Subjective Sinus rhythm at rate of 72. Objective Last 24 Hour Vital Signs Date Time Temp Pulse Resp B/P (MAP) Pulse Ox O2 Delivery O2 Flow Rate FiO2 12/11/18 16:23 158/77 12/11/18 16:00 98.7 72 18 138/69 (92) 100 12/11/18 16:00 Nasal Cannula 2.0 12/11/18 16:00 66 12/11/18 12:00 74 12/11/18 12:00 98.4 86 18 158/77 (104) 100 12/11/18 12:00 Nasal Cannula 2.0 12/11/18 08:29 86 145/111 12/11/18 08:00 98.4 86 17 145/111 (122) 99 12/11/18 08:00 Nasal Cannula 2.0 12/11/18 08:00 65 12/11/18 07:42 Nasal Cannula 2.0 28 12/11/18 07:41 98 Nasal Cannula 2.0 24 12/11/18 04:00 69 12/11/18 04:00 99.1 74 20 150/72 (98) 99 12/11/18 04:00 Nasal Cannula 2.0 12/11/18 00:00 65 12/11/18 00:00 Nasal Cannula 2.0 12/11/18 00:00 99.2 67 20 144/72 (96) 100 12/10/18 20:40 84 149/81 Intake and Output 12/10/18 12/11/18 19:00 07:00 Intake Total 410 ml 960 ml Output Total 2000 ml 1200 ml Balance -1590 ml -240 ml Free Water 300 ml 300 ml Tube Feeding 110 ml 660 ml Output Urine Total 2000 ml 1200 ml # Bowel Movements 1 2D Echo: EF55%, Large left pleural eff., Grade I LVDD, Mild AR/Mod MR/TN,RVSP 37mmHg Laboratory Tests Test 12/11/18 17:00 C-Reactive Protein, Quantitative 1.4 mg/dL (0.00-0.90) H Objective HEENT: Normocephalic, atraumatic, PERRLA, EOMI. On rebreathing mask. NECK: JVP <5cm, No carotid bruit. HEART: Normal S1S2, no murmurs, gallops or rubs, Tachycardic. LUNGS: Decrease BS in the left base. ABDOMEN: Soft and nontender, non-distended, no HSM, + BS. EXTREMITIES: No edema, clubbing or cyanosis. Deepak Aldana MD Dec 11, 2018 20:35
--- NOTE | 2018-12-11 21:08 | General Progress Note ---
Assessment/Plan Problem List: (1) UTI (urinary tract infection) ICD Codes: N39.0 - Urinary tract infection, site not specified SNOMED: 54073186 Qualifiers: Qualified Codes: N39.0 - Urinary tract infection, site not specified (2) Pneumonia ICD Codes: J18.9 - Pneumonia, unspecified organism SNOMED: 434995960, 737600513, 389986212 Qualifiers: Qualified Codes: J18.1 - Lobar pneumonia, unspecified organism (3) Elevated troponin ICD Codes: R74.8 - Abnormal levels of other serum enzymes SNOMED: 133625987, 439874676, 500882605 (4) Dehydration ICD Codes: E86.0 - Dehydration SNOMED: 51273028 (5) Hypokalemia ICD Codes: E87.6 - Hypokalemia SNOMED: 79183400 (6) Malnutrition ICD Codes: E46 - Unspecified protein-calorie malnutrition SNOMED: 72209387 (7) Dementia with behavioral disturbance ICD Codes: F03.91 - Unspecified dementia with behavioral disturbance SNOMED: 8898748903032 (8) Encephalopathy due to metabolic factor or toxin SNOMED: 189879368 (9) Anemia ICD Codes: D64.9 - Anemia, unspecified SNOMED: 489908489 (10) Sepsis ICD Codes: A41.9 - Sepsis, unspecified organism SNOMED: 25686890 Qualifiers: Qualified Codes: A41.9 - Sepsis, unspecified organism (11) Diabetic nephropathy 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 SNOMED: 682652961 Status: progressing Assessment/Plan sepsis malnutrition uti pna dehydraton elev trop improved check h/h and lytes no acute events Subjective ROS Limited/Unobtainable: Yes Allergies: Coded Allergies: No Known Allergies (Unverified , 07/26/18) Objective Last 24 Hour Vital Signs Date Time Temp Pulse Resp B/P (MAP) Pulse Ox O2 Delivery O2 Flow Rate FiO2 12/11/18 20:48 98 Nasal Cannula 2.0 28 12/11/18 20:48 Nasal Cannula 2.0 28 12/11/18 16:23 158/77 12/11/18 16:00 98.7 72 18 138/69 (92) 100 12/11/18 16:00 Nasal Cannula 2.0 12/11/18 16:00 66 12/11/18 12:00 74 12/11/18 12:00 98.4 86 18 158/77 (104) 100 12/11/18 12:00 Nasal Cannula 2.0 12/11/18 08:29 86 145/111 12/11/18 08:00 98.4 86 17 145/111 (122) 99 12/11/18 08:00 Nasal Cannula 2.0 12/11/18 08:00 65 12/11/18 07:42 Nasal Cannula 2.0 28 12/11/18 07:41 98 Nasal Cannula 2.0 24 12/11/18 04:00 69 12/11/18 04:00 99.1 74 20 150/72 (98) 99 12/11/18 04:00 Nasal Cannula 2.0 12/11/18 00:00 65 12/11/18 00:00 Nasal Cannula 2.0 12/11/18 00:00 99.2 67 20 144/72 (96) 100 Intake and Output 12/10/18 12/11/18 19:00 07:00 Intake Total 410 ml 960 ml Output Total 2000 ml 1200 ml Balance -1590 ml -240 ml Free Water 300 ml 300 ml Tube Feeding 110 ml 660 ml Output Urine Total 2000 ml 1200 ml # Bowel Movements 1 Laboratory Tests 12/11/18 17:00: C-Reactive Protein, Quantitative 1.4H Height (Feet): 5 Height (Inches): 3.00 Weight (Pounds): 122 General Appearance: lethargic, confused Respiratory/Chest: lungs clear Abdomen: soft Yi Asencio MD Dec 11, 2018 21:08
--- NOTE | 2018-12-11 21:45 | NUR ---
HAND-OFF: Report given to nurse Kimber DYKES.
--- NOTE | 2018-12-11 21:45 | NUR ---
NURSE NOTES: Received bedsiden report from DONIS Gallegos.Patient stable,non-verbal,tolerated 2L/min via N/C well no s/s of pain,no respiratory distress noted,SR on quality assurance monitor chassis,GT running w/Glucerna 1.2 @ 55 ml/hr,non residual at this time,f/cath running toward gravity,IV asymptomatic,intact on R f/arm 22 G SL,bed secured in a low safety position,call light within a reach,will continue to monitor and follow POC.
[2018-12-12] VITALS: BP 121/71
[2018-12-12 04:00] VITALS: BP 111/82
[2018-12-12] MEDS: NovoLOG Insulin Flexpen SUBQ SCH ×4 (05:23→23:45)
--- NOTE | 2018-12-12 07:04 | NUR ---
HAND-OFF: Report given to DONIS Trejo.Patient stable.
[2018-12-12 07:18] LABS: HEMATOCRIT 28.9 % (37.0-47.0); HEMOGLOBIN 9.1 G/DL (12.0-16.0); MEAN CORPUSCULAR VOLUME 97 FL (80-99); PLATELET COUNT 54 K/UL (150-450); RED BLOOD COUNT 2.98 M/UL (4.20-5.40); WHITE BLOOD COUNT 3.8 K/UL (4.8-10.8)
--- NOTE | 2018-12-12 07:27 | NUR ---
NURSE NOTES: Received report from DONIS Quiroga. Patient in bed resting, no active s/s cardiac, respiratory distress noticed at this time, Patient on 2L oxygen via NC, SR with 79. Bipap prn 12/5 Fio2 20%, Glucerna 1.2 via g-tube running at 55ml/h. IV site on right FA 22G, asymptomatic, patent, intact. Leiva catheter draining well to gravity. Patient opens eyes spontaneously with no verbal response. Bed in lowest position, side rails upx3, call light within reach. Will continue to monitor.
[2018-12-12 07:36] LABS: ANION GAP 3 mmol/L (5-15); BLOOD UREA NITROGEN 19 mg/dL (7-18); CALCIUM 9.3 MG/DL (8.5-10.1); CARBON DIOXIDE 34 MMOL/L (21-32); CHLORIDE 111 MMOL/L (98-107); CREATININE 0.6 MG/DL (0.55-1.30); POTASSIUM 3.4 MMOL/L (3.5-5.1); SODIUM 148 MMOL/L (136-145)
--- NOTE | 2018-12-12 07:52 | NUR ---
CASE MANAGEMENT:REVIEW 12/12/18 SI: SEPSIS. PNA. ELEVATED TROPONIN 99.0 79 20 111/82 99% on 2l/nc H/H-9.1/28.9 PLT-54 NA+148 K-3.4 IS: NTG PATCH Q24 K-DUR GT QD NOVOLOG SQ Q6 LOPRESSOR PO Q12 : NOW ON TELEMETRY UNIT DCP: PATIENT IS [place] [facility] [place]
[2018-12-12 08:00] VITALS: BP 145/86
[2018-12-12 08:18] LABS: ALANINE AMINOTRANSFERASE 27 U/L (12-78); ALBUMIN 2.1 G/DL (3.4-5.0); ALKALINE PHOSPHATASE 65 U/L (46-116); ASPARTATE AMINO TRANSFERASE 30 U/L (15-37); BILIRUBIN,DIRECT 0.2 MG/DL (0.0-0.3); BILIRUBIN,TOTAL 0.6 MG/DL (0.2-1.0); PHOSPHORUS 3.1 MG/DL (2.5-4.9)
--- NOTE | 2018-12-12 08:22 | NUR ---
NURSE NOTES:WOUND CARE FOLLOW-UP NOTES:Cluster of small partial thickness shearing that are moist and pink noted to sacral area, with surrounding hyperpigmentation scarring from previous pressure injuries an area measuring (L)2cm x (W)2.9cm. Second area L lower buttocks that is partial thickness wound resolving .Base of wound moist -pink .edges adherent and flat. periwound clean and intact. Non-blanchable erythema without fluctuance noted to Lateral R heel .L heel soft but easily blanchable. No new skin concerns noted. Moisture Barrier paste applied to perineum and buttocks .Optifoam drsg placed over sacrum. Cavilonj Skin Barrier applied to both heels and covered with Optifoam drsgs. Pt has an APM with THEA mattress and repositioned with pillow. Both heels flaoted off mattress with pillow.
[2018-12-12] MEDS: Metoprolol 25mg tab ORAL SCH ×2 (08:51→20:45)
--- NOTE | 2018-12-12 09:50 | NUR ---
NURSE NOTES: Dr. Bergman at the nursing station made aware K level of 3.[address] Bergman will take care. No order given yet this time. Will continue to monitor.
--- NOTE | 2018-12-12 09:53 | Cardiology Report ---
APPROVED REPORT EXAM: Two-dimensional and M-mode echocardiogram with Doppler and color Doppler. INDICATION Acute IN M-Mode DIMENSIONS IVSd1.0 (0.7-1.1cm)Left Atrium (MM)3.1 (1.6-4.0cm) LVDd4.4 (3.5-5.6cm)Aortic Root3.1 (2.0-3.7cm) PWd0.8 (0.7-1.1cm)Aortic Cusp Exc.1.7 (1.5-2.0cm) LVDs3.0 (2.5-4.0cm) PWs1.2 cm Normal left ventricular chamber size, systolic function and wall motion. Left ventricular ejection fraction estimated to be 60-65 %. No evidence of left ventricular hypertrophy. Anterior Echo-free space, may be due to pericardial fat or effusion. Possible large posterior pleural effusion. All other cardiac chamber sizes are within normal limits. Focal aortic valve sclerosis with adequate cusp excursion. Thickened mitral valve leaflets with normal excursion. Mitral annulus and aortic root calcification. Pulmonic valve not well visualized. Normal tricuspid valve structure. IVC dilated at 2.5 cm with slight physiologic collapse suggestive of increased RA pressure. A color flow and spectral Doppler study was performed and revealed: Mild aortic regurgitation. Moderate mitral regurgitation. Mitral diastolic velocities suggest reduced left ventricular relaxation c/w mild LV diastolic dysfunction (Grade I). Mild tricuspid regurgitation. Tricuspid systolic velocities suggests peak right ventricular systolic pressure of 37 mmHg, consistent with mild pulmonary hypertension. Pulmonic regurgitation present.
--- NOTE | 2018-12-12 10:47 | GI Progress Note ---
Assessment/Plan Problems: (1) Feeding by G-tube ICD Codes: Z93.1 - Gastrostomy status SNOMED: 700182073, 729849188, 408791666 (2) Anemia ICD Codes: D64.9 - Anemia, unspecified SNOMED: 254309266 (3) Malnutrition ICD Codes: E46 - Unspecified protein-calorie malnutrition SNOMED: 76953248 (4) Dehydration ICD Codes: E86.0 - Dehydration SNOMED: 48957086 (5) Dementia with behavioral disturbance ICD Codes: F03.91 - Unspecified dementia with behavioral disturbance SNOMED: 5775463778606 Status: stable Status Narrative Discussed with Dr. Argueta Assessment/Plan GTF fu labs abx per ID supportive care fu labs The patient was seen and examined at bedside and all new and available data was reviewed in the patients chart. I agree with the above findings, impression and plan. (Patient seen earlier today. Signature stamp does not reflect patient encounter time.). - Edwardo Argueta MD Subjective Subjective limited Objective Last 24 Hour Vital Signs Date Time Temp Pulse Resp B/P (MAP) Pulse Ox O2 Delivery O2 Flow Rate FiO2 12/12/18 08:51 81 145/86 12/12/18 08:00 98.1 81 18 145/86 (105) 98 12/12/18 08:00 Nasal Cannula 2.0 12/12/18 04:00 Nasal Cannula 2.0 12/12/18 04:00 99.0 79 20 111/82 (92) 99 12/12/18 03:48 74 12/12/18 00:00 97.1 91 20 121/71 (88) 97 12/12/18 00:00 Nasal Cannula 2.0 12/11/18 23:50 60 12/11/18 21:24 83 169/73 12/11/18 21:00 Nasal Cannula 2.0 12/11/18 20:48 98 Nasal Cannula 2.0 28 12/11/18 20:48 Nasal Cannula 2.0 28 12/11/18 20:00 98.1 83 20 169/77 (107) 100 12/11/18 20:00 73 12/11/18 16:23 158/77 12/11/18 16:00 98.7 72 18 138/69 (92) 100 12/11/18 16:00 Nasal Cannula 2.0 12/11/18 16:00 66 12/11/18 12:00 74 12/11/18 12:00 98.4 86 18 158/77 (104) 100 12/11/18 12:00 Nasal Cannula 2.0 Intake and Output 12/11/18 12/12/18 18:59 06:59 Intake Total 860 ml 540 ml Output Total 950 ml 450 ml Balance -90 ml 90 ml Free Water 200 ml 100 ml Tube Feeding 660 ml 440 ml Output Urine Total 950 ml 450 ml # Bowel Movements 2 Laboratory Tests Test 12/11/18 17:00 12/12/18 06:20 C-Reactive Protein, Quantitative 1.4 mg/dL (0.00-0.90) H White Blood Count 3.8 K/UL (4.8-10.8) L Red Blood Count 2.98 M/UL (4.20-5.40) L Hemoglobin 9.1 G/DL (12.0-16.0) L Hematocrit 28.9 % (37.0-47.0) L Mean Corpuscular Volume 97 FL (80-99) Mean Corpuscular Hemoglobin 30.5 PG (27.0-31.0) Mean Corpuscular Hemoglobin Concent 31.4 G/DL (32.0-36.0) L Red Cell Distribution Width 17.0 % (11.6-14.8) H Platelet Count 54 K/UL (150-450) L Mean Platelet Volume 9.5 FL (6.5-10.1) Neutrophils (%) (Auto) % (45.0-75.0) Lymphocytes (%) (Auto) % (20.0-45.0) Monocytes (%) (Auto) % (1.0-10.0) Eosinophils (%) (Auto) % (0.0-3.0) Basophils (%) (Auto) % (0.0-2.0) Differential Total Cells Counted 100 Neutrophils % (Manual) 86 % (45-75) H Lymphocytes % (Manual) 11 % (20-45) L Monocytes % (Manual) 2 % (1-10) Eosinophils % (Manual) 1 % (0-3) Basophils % (Manual) 0 % (0-2) Band Neutrophils 0 % (0-8) Platelet Estimate Decreased L Platelet Morphology Normal Hypochromasia 1+ Anisocytosis 1+ Sodium Level 148 MMOL/L (136-145) H Potassium Level 3.4 MMOL/L (3.5-5.1) L Chloride Level 111 MMOL/L (98-107) H Carbon Dioxide Level 34 MMOL/L (21-32) H Anion Gap 3 mmol/L (5-15) L Blood Urea Nitrogen 19 mg/dL (7-18) H Creatinine 0.6 MG/DL (0.55-1.30) Estimat Glomerular Filtration Rate mL/min (>60) Glucose Level 157 MG/DL (74-106) H Calcium Level 9.3 MG/DL (8.5-10.1) Phosphorus Level 3.1 MG/DL (2.5-4.9) Magnesium Level 2.0 MG/DL (1.8-2.4) Total Bilirubin 0.6 MG/DL (0.2-1.0) Direct Bilirubin 0.2 MG/DL (0.0-0.3) Aspartate Amino Transf (AST/SGOT) 30 U/L (15-37) Alanine Aminotransferase (ALT/SGPT) 27 U/L (12-78) Alkaline Phosphatase 65 U/L (46-116) Pro-B-Type Natriuretic Peptide 1276 pg/mL (0-125) H Total Protein 5.9 G/DL (6.4-8.2) L Albumin 2.1 G/DL (3.4-5.0) L Height (Feet): 5 Height (Inches): 3.00 Weight (Pounds): 119 General Appearance: no apparent distress, alert Cardiovascular: normal rate Respiratory/Chest: normal breath sounds, no respiratory distress Abdominal Exam: normal bowel sounds, non tender, soft, GT site - Clean dry and intact Extremities: non-tender Aidee Powell NP Dec 12, 2018 10:47
--- NOTE | 2018-12-12 11:24 | Infectious Diseases Prog Note ---
Assessment/Plan Assessment/Plan A: 1. Proteus Sepsis 2. urinary tract infection with E.coli & Proteus 3. Atelectasis on chest x-ray, may have underlying pneumonia. 4. Diabetes mellitus type 2. 5. Dementia. 6. Pancytopenia. 7. Pressure ulcer 8. MRSA & VRE colonization RECOMMENDATION: 1. observe off antibiotic Subjective ROS Limited/Unobtainable: Yes Allergies: Coded Allergies: No Known Allergies (Unverified , 07/26/18) Objective Vital Signs Last 24 Hour Vital Signs Date Time Temp Pulse Resp B/P (MAP) Pulse Ox O2 Delivery O2 Flow Rate FiO2 12/12/18 08:51 81 145/86 12/12/18 08:00 98.1 81 18 145/86 (105) 98 12/12/18 08:00 Nasal Cannula 2.0 12/12/18 08:00 78 12/12/18 04:00 Nasal Cannula 2.0 12/12/18 04:00 99.0 79 20 111/82 (92) 99 12/12/18 03:48 74 12/12/18 00:00 97.1 91 20 121/71 (88) 97 12/12/18 00:00 Nasal Cannula 2.0 12/11/18 23:50 60 12/11/18 21:24 83 169/73 12/11/18 21:00 Nasal Cannula 2.0 12/11/18 20:48 98 Nasal Cannula 2.0 28 12/11/18 20:48 Nasal Cannula 2.0 28 12/11/18 20:00 98.1 83 20 169/77 (107) 100 12/11/18 20:00 73 12/11/18 16:23 158/77 12/11/18 16:00 98.7 72 18 138/69 (92) 100 12/11/18 16:00 Nasal Cannula 2.0 12/11/18 16:00 66 12/11/18 12:00 74 12/11/18 12:00 98.4 86 18 158/77 (104) 100 12/11/18 12:00 Nasal Cannula 2.0 Height (Feet): 5 Height (Inches): 3.00 Weight (Pounds): 119 General Appearance: no acute distress HEENT: mucous membranes moist Respiratory/Chest: lungs clear, other - oxygen by cannula Cardiovascular: normal rate Abdomen: soft, non tender Extremities: no edema Neurologic/Psychiatric: aphasia Laboratory Tests Test 12/11/18 17:00 12/12/18 06:20 C-Reactive Protein, Quantitative 1.4 mg/dL (0.00-0.90) H White Blood Count 3.8 K/UL (4.8-10.8) L Red Blood Count 2.98 M/UL (4.20-5.40) L Hemoglobin 9.1 G/DL (12.0-16.0) L Hematocrit 28.9 % (37.0-47.0) L Mean Corpuscular Volume 97 FL (80-99) Mean Corpuscular Hemoglobin 30.5 PG (27.0-31.0) Mean Corpuscular Hemoglobin Concent 31.4 G/DL (32.0-36.0) L Red Cell Distribution Width 17.0 % (11.6-14.8) H Platelet Count 54 K/UL (150-450) L Mean Platelet Volume 9.5 FL (6.5-10.1) Neutrophils (%) (Auto) % (45.0-75.0) Lymphocytes (%) (Auto) % (20.0-45.0) Monocytes (%) (Auto) % (1.0-10.0) Eosinophils (%) (Auto) % (0.0-3.0) Basophils (%) (Auto) % (0.0-2.0) Differential Total Cells Counted 100 Neutrophils % (Manual) 86 % (45-75) H Lymphocytes % (Manual) 11 % (20-45) L Monocytes % (Manual) 2 % (1-10) Eosinophils % (Manual) 1 % (0-3) Basophils % (Manual) 0 % (0-2) Band Neutrophils 0 % (0-8) Platelet Estimate Decreased L Platelet Morphology Normal Hypochromasia 1+ Anisocytosis 1+ Sodium Level 148 MMOL/L (136-145) H Potassium Level 3.4 MMOL/L (3.5-5.1) L Chloride Level 111 MMOL/L (98-107) H Carbon Dioxide Level 34 MMOL/L (21-32) H Anion Gap 3 mmol/L (5-15) L Blood Urea Nitrogen 19 mg/dL (7-18) H Creatinine 0.6 MG/DL (0.55-1.30) Estimat Glomerular Filtration Rate mL/min (>60) Glucose Level 157 MG/DL (74-106) H Calcium Level 9.3 MG/DL (8.5-10.1) Phosphorus Level 3.1 MG/DL (2.5-4.9) Magnesium Level 2.0 MG/DL (1.8-2.4) Total Bilirubin 0.6 MG/DL (0.2-1.0) Direct Bilirubin 0.2 MG/DL (0.0-0.3) Aspartate Amino Transf (AST/SGOT) 30 U/L (15-37) Alanine Aminotransferase (ALT/SGPT) 27 U/L (12-78) Alkaline Phosphatase 65 U/L (46-116) Pro-B-Type Natriuretic Peptide 1276 pg/mL (0-125) H Total Protein 5.9 G/DL (6.4-8.2) L Albumin 2.1 G/DL (3.4-5.0) L Current Medications Medications (Trade) Dose Ordered Sig/Laure Route PRN Reason Start Time Stop Time Status Last Admin Dose Admin Acetaminophen (Tylenol) 650 mg Q4H PRN NG Mild Pain/Temp > 100.5 12/11/18 19:00 01/10/19 18:59 Dextrose (Dextrose 50%) 25 ml Q30M PRN IV Hypoglycemia 12/11/18 19:30 12/31/18 12:29 Dextrose (Dextrose 50%) 50 ml Q30M PRN IV Hypoglycemia 12/11/18 19:30 12/31/18 12:29 Insulin Aspart (NovoLOG) Q6HR SUBQ 12/12/18 00:00 12/31/18 17:59 12/12/18 05:23 Metoprolol Tartrate (Lopressor) 25 mg Q12HR ORAL 12/11/18 21:00 01/02/19 16:59 12/12/18 08:51 Nitroglycerin (Ntg) 1 patch Q24H TDERMAL 12/12/18 16:00 01/01/19 15:59 Ondansetron HCl (Zofran) 4 mg Q6H PRN IVP Nausea & Vomiting 12/11/18 19:00 12/31/18 18:59 Potassium Chloride (K-Dur) 40 meq BID GT 12/12/18 18:00 01/06/19 17:59 Shimon Card MD Dec 12, 2018 11:24
[2018-12-12 12:00] VITALS: BP 117/65
--- NOTE | 2018-12-12 12:23 | Pulmonology Progress Note ---
Assessment/Plan Problems: (1) UTI (urinary tract infection) (2) Pneumonia (3) Sepsis (4) DVT (deep venous thrombosis) (5) Dementia with behavioral disturbance (6) Malnutrition (7) Anemia (8) Thrombocytopenia (9) Feeding by G-tube (10) Elevated troponin I level (11) S/P IVC filter Assessment/Plan Optimize pulmonary hygiene/mobilize as tolerated Titrate down FiO2 to keep SaO2 > 90% RTC and PRN HHN's Observe off Abx per ID TF's as tolerated Monitor volumes and renal function Monitor CBC, transfuse as needed F/U solution consultant recs DVT Px: IVCF FC, continue to discuss GOC Subjective Allergies: Coded Allergies: No Known Allergies (Unverified , 07/26/18) Subjective AFVSS on 2L leta TF's no respiratory distress no cough no SOB no wheezing no F.C Objective Last 24 Hour Vital Signs Date Time Temp Pulse Resp B/P (MAP) Pulse Ox O2 Delivery O2 Flow Rate FiO2 12/12/18 08:51 81 145/86 12/12/18 08:00 98.1 81 18 145/86 (105) 98 12/12/18 08:00 Nasal Cannula 2.0 12/12/18 08:00 78 12/12/18 04:00 Nasal Cannula 2.0 12/12/18 04:00 99.0 79 20 111/82 (92) 99 12/12/18 03:48 74 12/12/18 00:00 97.1 91 20 121/71 (88) 97 12/12/18 00:00 Nasal Cannula 2.0 12/11/18 23:50 60 12/11/18 21:24 83 169/73 12/11/18 21:00 Nasal Cannula 2.0 12/11/18 20:48 98 Nasal Cannula 2.0 28 12/11/18 20:48 Nasal Cannula 2.0 28 12/11/18 20:00 98.1 83 20 169/77 (107) 100 12/11/18 20:00 73 12/11/18 16:23 158/77 12/11/18 16:00 98.7 72 18 138/69 (92) 100 12/11/18 16:00 Nasal Cannula 2.0 12/11/18 16:00 66 Intake and Output 3/3/19 3/4/19 18:59 06:59 Intake Total 860 ml 540 ml Output Total 950 ml 450 ml Balance -90 ml 90 ml Free Water 200 ml 100 ml Tube Feeding 660 ml 440 ml Output Urine Total 950 ml 450 ml # Bowel Movements 2 General Appearance: no acute distress, cachetic HEENT: normocephalic, atraumatic, anicteric, mucous membranes moist Respiratory/Chest: chest wall non-tender, lungs clear, normal breath sounds, no respiratory distress, no accessory muscle use Cardiovascular: normal peripheral pulses, normal rate, regular rhythm Abdomen: normal bowel sounds, soft, non tender, no organomegaly, non distended , no mass, other - GT Extremities: no cyanosis, no clubbing, no edema Laboratory Tests 12/11/18 17:00: C-Reactive Protein, Quantitative 1.4H 12/12/18 06:20: White Blood Count 3.8L, Red Blood Count 2.98L, Hemoglobin 9.1L, Hematocrit 28.9L , Mean Corpuscular Volume 97, Mean Corpuscular Hemoglobin 30.5, Mean Corpuscular Hemoglobin Concent 31.4L, Red Cell Distribution Width 17.0H, Platelet Count 54L, Mean Platelet Volume 9.5, Neutrophils (%) (Auto) , Lymphocytes (%) (Auto) , Monocytes (%) (Auto) , Eosinophils (%) (Auto) , Basophils (%) (Auto) , Differential Total Cells Counted 100, Neutrophils % ( Manual) 86H, Lymphocytes % (Manual) 11L, Monocytes % (Manual) 2, Eosinophils % ( Manual) 1, Basophils % (Manual) 0, Band Neutrophils 0, Platelet Estimate DecreasedL, Platelet Morphology Normal, Hypochromasia 1+, Anisocytosis 1+, Sodium Level 148H, Potassium Level 3.4L, Chloride Level 111H, Carbon Dioxide Level 34H, Anion Gap 3L, Blood Urea Nitrogen 19H, Creatinine 0.6, Estimat Glomerular Filtration Rate , Glucose Level 157H, Calcium Level 9.3, Phosphorus Level 3.1, Magnesium Level 2.0, Total Bilirubin 0.6, Direct Bilirubin 0.2, Aspartate Amino Transf (AST/SGOT) 30, Alanine Aminotransferase (ALT/SGPT) 27, Alkaline Phosphatase 65, Pro-B-Type Natriuretic Peptide 1276H, Total Protein 5.9L, Albumin 2.1L Current Medications Medications (Trade) Dose Ordered Sig/Laure Route PRN Reason Start Time Stop Time Status Last Admin Dose Admin Acetaminophen (Tylenol) 650 mg Q4H PRN NG Mild Pain/Temp > 100.5 12/11/18 19:00 01/10/19 18:59 Dextrose (Dextrose 50%) 25 ml Q30M PRN IV Hypoglycemia 12/11/18 19:30 12/31/18 12:29 Dextrose (Dextrose 50%) 50 ml Q30M PRN IV Hypoglycemia 12/11/18 19:30 12/31/18 12:29 Insulin Aspart (NovoLOG) Q6HR SUBQ 12/12/18 00:00 12/31/18 17:59 12/12/18 12:20 Metoprolol Tartrate (Lopressor) 25 mg Q12HR ORAL 12/11/18 21:00 01/02/19 16:59 12/12/18 08:51 Nitroglycerin (Ntg) 1 patch Q24H TDERMAL 12/12/18 16:00 01/01/19 15:59 Ondansetron HCl (Zofran) 4 mg Q6H PRN IVP Nausea & Vomiting 12/11/18 19:00 12/31/18 18:59 Potassium Chloride (K-Dur) 40 meq BID GT 12/12/18 18:00 01/06/19 17:59 Foreign Parekh MD Dec 12, 2018 12:23
[2018-12-12] MEDS ORDERED: Albuterol/Ipratropium 3ml neb HHN PRN (12:30)
[2018-12-12] MEDS: Albuterol/Ipratropium 3ml neb HHN SCH ×2 (13:31→19:37)
--- NOTE | 2018-12-12 13:46 | Nephrology Progress Note ---
Assessment/Plan Problem List: (1) Sepsis Assessment: low bp (2) Oliguria Assessment: due low bp (3) Anemia (4) Hypokalemia (5) Diabetic nephropathy (6) Elevated troponin I level Assessment Oliguria due to low BP Sepsis and low BP Elevated troponin UTI (urinary tract infection) Pneumonia Anemia worsening DM+ Proteinuria: Nephropathy s/p IVC Filter Acute encephalopathy HypoAlbuminemia Plan D5W 500 cc K Phos , KCl , MgSo4 IV ordered antibiotics avoid nephrotoxics anemia mac per orders Subjective ROS Limited/Unobtainable: No Constitutional: Reports: malaise Objective Objective Last 24 Hour Vital Signs Date Time Temp Pulse Resp B/P (MAP) Pulse Ox O2 Delivery O2 Flow Rate FiO2 12/12/18 13:31 81 18 98 Nasal Cannula 2.0 28 12/12/18 13:31 98 Nasal Cannula 2.0 28 12/12/18 13:31 Nasal Cannula 2.0 28 12/12/18 13:31 81 18 Nasal Cannula 2.0 28 12/12/18 12:00 97.7 74 18 117/65 (82) 100 12/12/18 12:00 72 12/12/18 12:00 Nasal Cannula 2.0 12/12/18 08:51 81 145/86 12/12/18 08:00 98.1 81 18 145/86 (105) 98 12/12/18 08:00 Nasal Cannula 2.0 12/12/18 08:00 78 12/12/18 04:00 Nasal Cannula 2.0 12/12/18 04:00 99.0 79 20 111/82 (92) 99 12/12/18 03:48 74 12/12/18 00:00 97.1 91 20 121/71 (88) 97 12/12/18 00:00 Nasal Cannula 2.0 12/11/18 23:50 60 12/11/18 21:24 83 169/73 12/11/18 21:00 Nasal Cannula 2.0 12/11/18 20:48 98 Nasal Cannula 2.0 28 12/11/18 20:48 Nasal Cannula 2.0 28 12/11/18 20:00 98.1 83 20 169/77 (107) 100 12/11/18 20:00 73 12/11/18 16:23 158/77 12/11/18 16:00 98.7 72 18 138/69 (92) 100 12/11/18 16:00 Nasal Cannula 2.0 12/11/18 16:00 66 Intake and Output 12/11/18 12/12/18 18:59 06:59 Intake Total 860 ml 540 ml Output Total 950 ml 450 ml Balance -90 ml 90 ml Free Water 200 ml 100 ml Tube Feeding 660 ml 440 ml Output Urine Total 950 ml 450 ml # Bowel Movements 2 Laboratory Tests 12/11/18 17:00: C-Reactive Protein, Quantitative 1.4H 12/12/18 06:20: White Blood Count 3.8L, Red Blood Count 2.98L, Hemoglobin 9.1L, Hematocrit 28.9L , Mean Corpuscular Volume 97, Mean Corpuscular Hemoglobin 30.5, Mean Corpuscular Hemoglobin Concent 31.4L, Red Cell Distribution Width 17.0H, Platelet Count 54L, Mean Platelet Volume 9.5, Neutrophils (%) (Auto) , Lymphocytes (%) (Auto) , Monocytes (%) (Auto) , Eosinophils (%) (Auto) , Basophils (%) (Auto) , Differential Total Cells Counted 100, Neutrophils % ( Manual) 86H, Lymphocytes % (Manual) 11L, Monocytes % (Manual) 2, Eosinophils % ( Manual) 1, Basophils % (Manual) 0, Band Neutrophils 0, Platelet Estimate DecreasedL, Platelet Morphology Normal, Hypochromasia 1+, Anisocytosis 1+, Sodium Level 148H, Potassium Level 3.4L, Chloride Level 111H, Carbon Dioxide Level 34H, Anion Gap 3L, Blood Urea Nitrogen 19H, Creatinine 0.6, Estimat Glomerular Filtration Rate , Glucose Level 157H, Calcium Level 9.3, Phosphorus Level 3.1, Magnesium Level 2.0, Total Bilirubin 0.6, Direct Bilirubin 0.2, Aspartate Amino Transf (AST/SGOT) 30, Alanine Aminotransferase (ALT/SGPT) 27, Alkaline Phosphatase 65, Pro-B-Type Natriuretic Peptide 1276H, Total Protein 5.9L, Albumin 2.1L Height (Feet): 5 Height (Inches): 3.00 Weight (Pounds): 119 General Appearance: no apparent distress Cardiovascular: normal rate Respiratory/Chest: decreased breath sounds Abdomen: soft Parvez Bergman MD Dec 12, 2018 13:46
[2018-12-12 16:00] VITALS: BP 141/80
[2018-12-12] MEDS ORDERED: Nitroglycerin Patch 0.4mg TDERMAL SCH (16:00)
--- NOTE | 2018-12-12 17:23 | NUR ---
INSURANCE ALL CLINICAL REVIEWS FAXED TO PLEASE FAX THE REVIEW/CLINICAL P- [phone] B- [phone] SEND CLAIMS TO: [facility]
--- NOTE | 2018-12-12 19:30 | NUR ---
HAND-OFF: Report given to DONIS Herrera
--- NOTE | 2018-12-12 19:35 | NUR ---
NURSE NOTES: Received report from DONIS Rubi. Patient asleep, breathing even and unlabored on 2 L via NC, no s/sx of pain nor any discomfort at this time. IV site on R FA #[id number], patent and intact. F/C intact and patent with yellow-colored output. GTF of Glucerna 1.2 running at 55 ml/hr, HOB elevated at all times, tolerating fairly. SCD on bilateral legs, venous duplex showed no DVT noted. Bed at lowest position, turned and repositioned at least q 2 hours. Will continue plan of care.
--- NOTE | 2018-12-12 19:51 | Cardiology Progress Note ---
Assessment/Plan Assessment/Plan 1. Septic shock, most likely due to bilateral pneumonia as well as associated effusion. Normal LV systolic function with grade I LVDD. 2. Slight elevation of troponin I level likely due to sepsis. 3. DVT status post IVC filter. 4. History of metabolic encephalopathy. 5. History of dementia. 6. History of CVA. 7. History of pancytopenia. Subjective Subjective Sinus rhythm at rate of 89. Objective Last 24 Hour Vital Signs Date Time Temp Pulse Resp B/P (MAP) Pulse Ox O2 Delivery O2 Flow Rate FiO2 12/12/18 19:37 98 Nasal Cannula 2.0 28 12/12/18 19:37 Nasal Cannula 2.0 28 12/12/18 19:37 89 18 98 Nasal Cannula 2.0 28 12/12/18 16:10 141/80 12/12/18 16:00 98.3 83 18 141/80 (100) 100 12/12/18 16:00 Nasal Cannula 2.0 12/12/18 16:00 80 12/12/18 13:31 81 18 98 Nasal Cannula 2.0 28 12/12/18 13:31 98 Nasal Cannula 2.0 28 12/12/18 13:31 Nasal Cannula 2.0 28 12/12/18 13:31 81 18 Nasal Cannula 2.0 28 12/12/18 12:00 97.7 74 18 117/65 (82) 100 12/12/18 12:00 72 12/12/18 12:00 Nasal Cannula 2.0 12/12/18 09:36 Nasal Cannula 2.0 28 12/12/18 09:36 98 Nasal Cannula 2.0 28 12/12/18 08:51 81 145/86 12/12/18 08:00 98.1 81 18 145/86 (105) 98 12/12/18 08:00 Nasal Cannula 2.0 12/12/18 08:00 78 12/12/18 04:00 Nasal Cannula 2.0 12/12/18 04:00 99.0 79 20 111/82 (92) 99 12/12/18 03:48 74 12/12/18 00:00 97.1 91 20 121/71 (88) 97 12/12/18 00:00 Nasal Cannula 2.0 12/11/18 23:50 60 12/11/18 21:24 83 169/73 12/11/18 21:00 Nasal Cannula 2.0 12/11/18 20:48 98 Nasal Cannula 2.0 28 12/11/18 20:48 Nasal Cannula 2.0 28 12/11/18 20:00 98.1 83 20 169/77 (107) 100 12/11/18 20:00 73 Intake and Output 12/11/18 12/12/18 19:00 07:00 Intake Total 805 ml 540 ml Output Total 950 ml 450 ml Balance -145 ml 90 ml Free Water 200 ml 100 ml Tube Feeding 605 ml 440 ml Output Urine Total 950 ml 450 ml # Bowel Movements 2 2D Echo: EF55%, Large left pleural eff., Grade I LVDD, Mild AR/Mod MR/IA,RVSP 37mmHg Laboratory Tests Test 12/12/18 06:20 White Blood Count 3.8 K/UL (4.8-10.8) L Red Blood Count 2.98 M/UL (4.20-5.40) L Hemoglobin 9.1 G/DL (12.0-16.0) L Hematocrit 28.9 % (37.0-47.0) L Mean Corpuscular Volume 97 FL (80-99) Mean Corpuscular Hemoglobin 30.5 PG (27.0-31.0) Mean Corpuscular Hemoglobin Concent 31.4 G/DL (32.0-36.0) L Red Cell Distribution Width 17.0 % (11.6-14.8) H Platelet Count 54 K/UL (150-450) L Mean Platelet Volume 9.5 FL (6.5-10.1) Neutrophils (%) (Auto) % (45.0-75.0) Lymphocytes (%) (Auto) % (20.0-45.0) Monocytes (%) (Auto) % (1.0-10.0) Eosinophils (%) (Auto) % (0.0-3.0) Basophils (%) (Auto) % (0.0-2.0) Differential Total Cells Counted 100 Neutrophils % (Manual) 86 % (45-75) H Lymphocytes % (Manual) 11 % (20-45) L Monocytes % (Manual) 2 % (1-10) Eosinophils % (Manual) 1 % (0-3) Basophils % (Manual) 0 % (0-2) Band Neutrophils 0 % (0-8) Platelet Estimate Decreased L Platelet Morphology Normal Hypochromasia 1+ Anisocytosis 1+ Sodium Level 148 MMOL/L (136-145) H Potassium Level 3.4 MMOL/L (3.5-5.1) L Chloride Level 111 MMOL/L (98-107) H Carbon Dioxide Level 34 MMOL/L (21-32) H Anion Gap 3 mmol/L (5-15) L Blood Urea Nitrogen 19 mg/dL (7-18) H Creatinine 0.6 MG/DL (0.55-1.30) Estimat Glomerular Filtration Rate mL/min (>60) Glucose Level 157 MG/DL (74-106) H Calcium Level 9.3 MG/DL (8.5-10.1) Phosphorus Level 3.1 MG/DL (2.5-4.9) Magnesium Level 2.0 MG/DL (1.8-2.4) Total Bilirubin 0.6 MG/DL (0.2-1.0) Direct Bilirubin 0.2 MG/DL (0.0-0.3) Aspartate Amino Transf (AST/SGOT) 30 U/L (15-37) Alanine Aminotransferase (ALT/SGPT) 27 U/L (12-78) Alkaline Phosphatase 65 U/L (46-116) Pro-B-Type Natriuretic Peptide 1276 pg/mL (0-125) H Total Protein 5.9 G/DL (6.4-8.2) L Albumin 2.1 G/DL (3.4-5.0) L Objective HEENT: Normocephalic, atraumatic, PERRLA, EOMI. On rebreathing mask. NECK: JVP <5cm, No carotid bruit. HEART: Normal S1S2, no murmurs, gallops or rubs, Tachycardic. LUNGS: Decrease BS in the left base. ABDOMEN: Soft and nontender, non-distended, no HSM, + BS. EXTREMITIES: No edema, clubbing or cyanosis. Deepak Aldana MD Dec 12, 2018 19:51
[2018-12-12 20:00] VITALS: BP 145/81
--- NOTE | 2018-12-12 20:57 | General Progress Note ---
Assessment/Plan Problem List: (1) UTI (urinary tract infection) ICD Codes: N39.0 - Urinary tract infection, site not specified SNOMED: 74606119 Qualifiers: Qualified Codes: N39.0 - Urinary tract infection, site not specified (2) Pneumonia ICD Codes: J18.9 - Pneumonia, unspecified organism SNOMED: 658036828, 978587172, 761297701 Qualifiers: Qualified Codes: J18.1 - Lobar pneumonia, unspecified organism (3) Elevated troponin ICD Codes: R74.8 - Abnormal levels of other serum enzymes SNOMED: 602805385, 848678233, 185635663 (4) Dehydration ICD Codes: E86.0 - Dehydration SNOMED: 20526621 (5) Hypokalemia ICD Codes: E87.6 - Hypokalemia SNOMED: 82559729 (6) Malnutrition ICD Codes: E46 - Unspecified protein-calorie malnutrition SNOMED: 74317532 (7) Dementia with behavioral disturbance ICD Codes: F03.91 - Unspecified dementia with behavioral disturbance SNOMED: 0131165791709 (8) Encephalopathy due to metabolic factor or toxin SNOMED: 529387325 (9) Anemia ICD Codes: D64.9 - Anemia, unspecified SNOMED: 038274672 (10) Sepsis ICD Codes: A41.9 - Sepsis, unspecified organism SNOMED: 42126293 Qualifiers: Qualified Codes: A41.9 - Sepsis, unspecified organism (11) Diabetic nephropathy 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 SNOMED: 218348056 Status: progressing Assessment/Plan pna and sepsis and uti abx per id hypernatremia improving low k.replacement per renal pancytopenia lethargic Subjective ROS Limited/Unobtainable: Yes Allergies: Coded Allergies: No Known Allergies (Unverified , 07/26/18) Objective Last 24 Hour Vital Signs Date Time Temp Pulse Resp B/P (MAP) Pulse Ox O2 Delivery O2 Flow Rate FiO2 12/12/18 20:45 96 143/81 12/12/18 19:37 98 Nasal Cannula 2.0 28 12/12/18 19:37 Nasal Cannula 2.0 28 12/12/18 19:37 89 18 98 Nasal Cannula 2.0 28 12/12/18 16:10 141/80 3/4/19 16:00 98.3 83 18 141/80 (100) 100 12/12/18 16:00 Nasal Cannula 2.0 12/12/18 16:00 80 12/12/18 13:31 81 18 98 Nasal Cannula 2.0 28 12/12/18 13:31 98 Nasal Cannula 2.0 28 12/12/18 13:31 Nasal Cannula 2.0 28 12/12/18 13:31 81 18 Nasal Cannula 2.0 28 12/12/18 12:00 97.7 74 18 117/65 (82) 100 12/12/18 12:00 72 12/12/18 12:00 Nasal Cannula 2.0 12/12/18 09:36 Nasal Cannula 2.0 28 12/12/18 09:36 98 Nasal Cannula 2.0 28 12/12/18 08:51 81 145/86 12/12/18 08:00 98.1 81 18 145/86 (105) 98 12/12/18 08:00 Nasal Cannula 2.0 12/12/18 08:00 78 12/12/18 04:00 Nasal Cannula 2.0 12/12/18 04:00 99.0 79 20 111/82 (92) 99 12/12/18 03:48 74 12/12/18 00:00 97.1 91 20 121/71 (88) 97 12/12/18 00:00 Nasal Cannula 2.0 12/11/18 23:50 60 12/11/18 21:24 83 169/73 12/11/18 21:00 Nasal Cannula 2.0 Intake and Output 12/11/18 12/12/18 19:00 07:00 Intake Total 805 ml 540 ml Output Total 950 ml 450 ml Balance -145 ml 90 ml Free Water 200 ml 100 ml Tube Feeding 605 ml 440 ml Output Urine Total 950 ml 450 ml # Bowel Movements 2 Laboratory Tests 12/12/18 06:20: White Blood Count 3.8L, Red Blood Count 2.98L, Hemoglobin 9.1L, Hematocrit 28.9L , Mean Corpuscular Volume 97, Mean Corpuscular Hemoglobin 30.5, Mean Corpuscular Hemoglobin Concent 31.4L, Red Cell Distribution Width 17.0H, Platelet Count 54L, Mean Platelet Volume 9.5, Neutrophils (%) (Auto) , Lymphocytes (%) (Auto) , Monocytes (%) (Auto) , Eosinophils (%) (Auto) , Basophils (%) (Auto) , Differential Total Cells Counted 100, Neutrophils % ( Manual) 86H, Lymphocytes % (Manual) 11L, Monocytes % (Manual) 2, Eosinophils % ( Manual) 1, Basophils % (Manual) 0, Band Neutrophils 0, Platelet Estimate DecreasedL, Platelet Morphology Normal, Hypochromasia 1+, Anisocytosis 1+, Sodium Level 148H, Potassium Level 3.4L, Chloride Level 111H, Carbon Dioxide Level 34H, Anion Gap 3L, Blood Urea Nitrogen 19H, Creatinine 0.6, Estimat Glomerular Filtration Rate , Glucose Level 157H, Calcium Level 9.3, Phosphorus Level 3.1, Magnesium Level 2.0, Total Bilirubin 0.6, Direct Bilirubin 0.2, Aspartate Amino Transf (AST/SGOT) 30, Alanine Aminotransferase (ALT/SGPT) 27, Alkaline Phosphatase 65, Pro-B-Type Natriuretic Peptide 1276H, Total Protein 5.9L, Albumin 2.1L Height (Feet): 5 Height (Inches): 3.00 Weight (Pounds): 119 General Appearance: lethargic, confused Respiratory/Chest: lungs clear Abdomen: soft Yi Asencio MD Dec 12, 2018 20:57
--- NOTE | 2018-12-12 23:14 | General Progress Note ---
Assessment/Plan Assessment/Plan Assessment/Recs: # DVT of the left leg s/p IVC filter in 07/2018-- superficial femoral vein which is a deep vein, new onset, has not had these symptoms before. Lower hgb and plts --> given decreased h/h, low thrombocytopenia, do not recommend anticoag --> appreciate Dr. Parekh and Mariam recs from prior admission --> smear reviewed # Pancytopenia, likely related to septicemia, appears new baseline 50-70k, several causes possible including viral, medication or intrabone marrow related. --> Cont to monitor plt count for improvement --> US abd: Mild left hydronephrosis. Possible left renal calyceal calculi. Negative for gallstones or dilated ducts Debris noted within the bladder --> Hep panel and HIV are both negative --> given extremely poor condition do not recommend a bone marrow biopsy, have discussed with family 08/01 with --> will rediscuss once sepsis resolves --> transfuse if plt <20k # Anemia of chronic disease. Multifactorial. Since admission Hgb has consistently remained between 8-9. --> Cont to monitor for stability --> Hgb goal above 7. Transfuse prn. --> IV iron completed prior admission and feritin is elevated # Dehydration. IVF has been administered --> improved # DM OOC --> A1C goal <7 --> Cont on insulin # Bacteremia/prior UTI. --> ID is following. Appreciate recs. --> Pt on IV abx. --> Cultures surveillance as per id # PEG placement 08/04. Greatly appreciate consultation! Subjective Constitutional: Denies: no symptoms, chills, diaphoresis, fever, malaise, weakness, other HEENT: Denies: no symptoms, eye pain, blurred vision, tearing, double vision, ear pain, ear discharge, nose pain, nose congestion, throat pain, throat swelling, mouth pain, mouth swelling, other Respiratory: Denies: no symptoms, cough, orthopnea, shortness of breath, SOB with excertion, SOB at rest, sputum, stridor, wheezing, other Gastrointestinal/Abdominal: Denies: no symptoms, abdomen distended, abdominal pain, black stools, tarry stools, blood in stool, constipated, diarrhea, difficulty swallowing, nausea, poor appetite, poor fluid intake, rectal bleeding , vomiting, other Genitourinary: Denies: no symptoms, burning, discharge, frequency, flank pain, hematuria, incontinence, pain, urgency, other Neurologic/Psychiatric: Denies: no symptoms, anxiety, depressed, emotional problems, headache, numbness, paresthesia, pre-existing deficit, seizure, tingling, tremors, weakness, other Endocrine: Denies: no symptoms, excessive sweating, flushing, intolerance to cold, intolerance to heat, increased hunger, increased thirst, increased urine, unexplained weight gain, unexplained weight loss, other Hematologic/Lymphatic: Denies: no symptoms, anemia, easy bleeding, easy bruising, other Allergies: Coded Allergies: No Known Allergies (Unverified , 07/26/18) Subjective 12/02: seen by bedside, hgb 7.6, will transfuse as needed, plt trending down, GTF on hold, patient on BIPAP, has been tachycardic over night, abx per ID 12/04: Seen by bedside, out of ICU, tolerating TF, off BIPAP, plt trending down to 45, hgb 7.6. 12/05: Pt is resting in bed, hgb 6.6 and plt 39, received transfusion, no events. 12/06: seen by bedside,awake, comfortable, plt 43 12/07: awake, comfortable, plt remains low, hgb 8.8 12/08: seen by bedside, awake, comfortable, hgb 8.3, no events 12/09: awake, comfortable, no acute distress, plt 37 12/11: no events to report, no fevers or chills, no night sweats, plts stable 12/12: awake, comfortable, no events , plt trending up at 54 today. Objective Last 24 Hour Vital Signs Date Time Temp Pulse Resp B/P (MAP) Pulse Ox O2 Delivery O2 Flow Rate FiO2 12/12/18 21:00 Nasal Cannula 2.0 12/12/18 20:45 96 143/81 12/12/18 20:00 94 12/12/18 20:00 98.6 94 18 145/81 (102) 100 12/12/18 19:47 87 18 98 Nasal Cannula 2.0 28 12/12/18 19:37 98 Nasal Cannula 2.0 28 12/12/18 19:37 Nasal Cannula 2.0 28 12/12/18 19:37 89 18 98 Nasal Cannula 2.0 28 12/12/18 16:10 141/80 12/12/18 16:00 98.3 83 18 141/80 (100) 100 12/12/18 16:00 Nasal Cannula 2.0 12/12/18 16:00 80 12/12/18 13:41 82 18 98 Nasal Cannula 2.0 28 12/12/18 13:31 81 18 98 Nasal Cannula 2.0 28 12/12/18 13:31 98 Nasal Cannula 2.0 28 12/12/18 13:31 Nasal Cannula 2.0 28 12/12/18 13:31 81 18 Nasal Cannula 2.0 28 12/12/18 12:00 97.7 74 18 117/65 (82) 100 12/12/18 12:00 72 12/12/18 12:00 Nasal Cannula 2.0 12/12/18 09:36 Nasal Cannula 2.0 28 12/12/18 09:36 98 Nasal Cannula 2.0 28 12/12/18 08:51 81 145/86 12/12/18 08:00 98.1 81 18 145/86 (105) 98 12/12/18 08:00 Nasal Cannula 2.0 12/12/18 08:00 78 12/12/18 04:00 Nasal Cannula 2.0 12/12/18 04:00 99.0 79 20 111/82 (92) 99 12/12/18 03:48 74 12/12/18 00:00 97.1 91 20 121/71 (88) 97 12/12/18 00:00 Nasal Cannula 2.0 12/11/18 23:50 60 Intake and Output 12/11/18 12/12/18 19:00 07:00 Intake Total 805 ml 540 ml Output Total 950 ml 450 ml Balance -145 ml 90 ml Free Water 200 ml 100 ml Tube Feeding 605 ml 440 ml Output Urine Total 950 ml 450 ml # Bowel Movements 2 Laboratory Tests 12/12/18 06:20: White Blood Count 3.8L, Red Blood Count 2.98L, Hemoglobin 9.1L, Hematocrit 28.9L , Mean Corpuscular Volume 97, Mean Corpuscular Hemoglobin 30.5, Mean Corpuscular Hemoglobin Concent 31.4L, Red Cell Distribution Width 17.0H, Platelet Count 54L, Mean Platelet Volume 9.5, Neutrophils (%) (Auto) , Lymphocytes (%) (Auto) , Monocytes (%) (Auto) , Eosinophils (%) (Auto) , Basophils (%) (Auto) , Differential Total Cells Counted 100, Neutrophils % ( Manual) 86H, Lymphocytes % (Manual) 11L, Monocytes % (Manual) 2, Eosinophils % ( Manual) 1, Basophils % (Manual) 0, Band Neutrophils 0, Platelet Estimate DecreasedL, Platelet Morphology Normal, Hypochromasia 1+, Anisocytosis 1+, Sodium Level 148H, Potassium Level 3.4L, Chloride Level 111H, Carbon Dioxide Level 34H, Anion Gap 3L, Blood Urea Nitrogen 19H, Creatinine 0.6, Estimat Glomerular Filtration Rate , Glucose Level 157H, Calcium Level 9.3, Phosphorus Level 3.1, Magnesium Level 2.0, Total Bilirubin 0.6, Direct Bilirubin 0.2, Aspartate Amino Transf (AST/SGOT) 30, Alanine Aminotransferase (ALT/SGPT) 27, Alkaline Phosphatase 65, Pro-B-Type Natriuretic Peptide 1276H, Total Protein 5.9L, Albumin 2.1L Height (Feet): 5 Height (Inches): 3.00 Weight (Pounds): 119 Objective Physical Exam Vitals: reviewed Gen: confused, on bipap, unable to converse, sleepy Pulm: ++ crackles ++ bipap CV: RRR, no mgr Abd: soft, nt, nd ++ peg Ext: no swelling of lower ext Neuro: demented Dewayne Gayle MD Dec 12, 2018 23:14
[2018-12-13] VITALS: BP 148/91
[2018-12-13] MEDS: Albuterol/Ipratropium 3ml neb HHN SCH ×3 (01:27→12:07)
--- NOTE | 2018-12-13 02:25 | NUR ---
NURSE NOTES: Patient asleep, breathing even and unlabored, no s/sx of pain nor any discomfort at this time. GTF tolerating fairly, no residual noted, flushed as ordered. F/C intact and patent with yellow-colored output. Will continue to monitor.
[2018-12-13 04:00] VITALS: BP 135/72
[2018-12-13] MEDS: NovoLOG Insulin Flexpen SUBQ SCH ×2 (05:50→12:53)
--- NOTE | 2018-12-13 07:05 | NUR ---
NURSE NOTES: received patient report from kobi flores. patient is on bed asleep. not in acute distress. no arrythmias reported during the night. SR on the monitor. on GT feeding at prescribed rate. BIPAP QHS & PRN. on overlay mattress. bed is low and locked for safety. will continue plan of care.
[2018-12-13 07:08] LABS: HEMATOCRIT 28.7 % (37.0-47.0); MEAN CORPUSCULAR VOLUME 98 FL (80-99); PLATELET COUNT 60 K/UL (150-450); RED BLOOD COUNT 2.93 M/UL (4.20-5.40); RED CELL DISTRIBUTION WIDTH 16.8 % (11.6-14.8); WHITE BLOOD COUNT 3.3 K/UL (4.8-10.8)
[2018-12-13 07:12] LABS: ANION GAP 2 mmol/L (5-15); BLOOD UREA NITROGEN 21 mg/dL (7-18); CALCIUM 9.4 MG/DL (8.5-10.1); CARBON DIOXIDE 34 MMOL/L (21-32); CHLORIDE 111 MMOL/L (98-107); CREATININE 0.7 MG/DL (0.55-1.30); POTASSIUM 4.1 MMOL/L (3.5-5.1); SODIUM 147 MMOL/L (136-145)
--- NOTE | 2018-12-13 07:20 | NUR ---
HAND-OFF: Report given to DONIS Quach. Endorsed plan of care.
[2018-12-13 08:00] VITALS: BP 154/70
[2018-12-13] MEDS: Metoprolol 25mg tab ORAL SCH (08:21)
--- NOTE | 2018-12-13 10:27 | NUR ---
CASE MANAGEMENT:REVIEW 12/13/18 SI: SEPSIS. PNA. ELEVATED TROPONIN 98.2 74 18 157/75 98% ON 2L/NC H/H-9.0/28.7 PLT-60 NA+147 IS: K-DUR GT BID NTG PATCH Q24 DUONEB HHN Q6HRS RTC LOPRESSOR PO Q12 : TELEMETRY STATUS DCP: PATIENT IS FROM [facility] PLAN: SHUTTLE VAN DRIVER LEFT MESSAGE FOR DR BUSTAMANTE REGARDING DISCHARGE PLAN
--- NOTE | 2018-12-13 10:33 | NUR ---
DISCHARGE PLANNING MESSAGE LEFT FOR DR BUSTAMANTE REGARDING PATIENT RETURNING TO [facility] AWAITING RESPONSE NURSING WILL NEED TO OBTAIN CLEARANCE FROM CONSULTANTS
--- NOTE | 2018-12-13 10:33 | NUR ---
NURSE NOTES: per dr waldrop, patient is clear for discharge. no kidney problem.
--- NOTE | 2018-12-13 11:04 | NUR ---
RD ASSESSMENT & RECOMMENDATIONS SEE CARE ACTIVITY FOR COMPLETE ASSESSMENT DAILY ESTIMATED NEEDS: Needs based on Wound, underweight, Pulmonary / 44.5kg 30-37 kcals/kg 1335-1646kcal total kcals 1.25-1.5 g protein/kg 56-67 g total protein 25-30 mL/kg 6109-1956 total fluid mLs NUTRITION DIAGNOSIS: 1) Increased kcal and protein needs R/T underweight status and wound healing as evidenced by pt w/ generalized moderate wasting, @ 89% IBW w/ underweight BMI per guidelines, admitted w/ partial thickness pressure injury @ sacrum. 2) Swallowing difficulty R/T dysphagia as evidenced by pt is PEG dep. 3) Altered nutrition related lab values R/T diabetes as evidenced by elev BGs and POC glu (200's, 300,s -> 196 186 152 160 192 improved). ENTERAL NUTRITION RECOMMENDATIONS: Glucerna 1.2 @55ml/hr x24 hrs to provide 1320ml, 1584 kcal, 79g prot, 1063ml free fluid * Maintain current TF * Flush per MD/ HOB over 30 degrees ADDITIONAL RECOMMENDATIONS: * Per SNF: ht=62", wt=98lbs on 11/16/18 * Re-calibrate bedscale wt, rec weekly wt monitoring * Wound healing: Add Timbo 1pkt BID * Check lytes daily, replete as needed * Monitor BGs, consider long acting insulin for improved BG control . .
--- NOTE | 2018-12-13 11:12 | GI Progress Note ---
Assessment/Plan Problems: (1) Feeding by G-tube ICD Codes: Z93.1 - Gastrostomy status SNOMED: 135437708, 316043127, 753974378 (2) Anemia ICD Codes: D64.9 - Anemia, unspecified SNOMED: 764748279 (3) Malnutrition ICD Codes: E46 - Unspecified protein-calorie malnutrition SNOMED: 47704991 (4) Dehydration ICD Codes: E86.0 - Dehydration SNOMED: 78990667 (5) Dementia with behavioral disturbance ICD Codes: F03.91 - Unspecified dementia with behavioral disturbance SNOMED: 4378044697975 Status: stable Status Narrative Discussed with Dr. Argueta. Assessment/Plan GTF fu labs abx per ID supportive care fu labs The patient was seen and examined at bedside and all new and available data was reviewed in the patients chart. I agree with the above findings, impression and plan. (Patient seen earlier today. Signature stamp does not reflect patient encounter time.). - Edwardo Argueta MD Subjective Subjective limited Objective Last 24 Hour Vital Signs Date Time Temp Pulse Resp B/P (MAP) Pulse Ox O2 Delivery O2 Flow Rate FiO2 12/13/18 09:00 Nasal Cannula 2.0 12/13/18 08:21 84 157/75 12/13/18 08:00 98.0 70 18 154/70 (98) 100 12/13/18 08:00 69 12/13/18 07:43 81 18 98 Nasal Cannula 2.0 28 12/13/18 07:33 Nasal Cannula 2.0 28 12/13/18 07:33 98 Nasal Cannula 2.0 28 12/13/18 07:33 85 18 98 Nasal Cannula 2.0 28 12/13/18 04:00 74 12/13/18 04:00 98.2 76 18 135/72 (93) 100 12/13/18 01:43 86 18 98 Nasal Cannula 2.0 28 12/13/18 01:27 83 18 96 Nasal Cannula 2.0 28 12/13/18 00:00 80 12/13/18 00:00 98.5 99 18 148/91 (110) 97 12/12/18 21:00 Nasal Cannula 2.0 12/12/18 20:45 96 143/81 12/12/18 20:00 94 12/12/18 20:00 98.6 94 18 145/81 (102) 100 12/12/18 19:47 87 18 98 Nasal Cannula 2.0 28 12/12/18 19:37 98 Nasal Cannula 2.0 28 12/12/18 19:37 Nasal Cannula 2.0 28 12/12/18 19:37 89 18 98 Nasal Cannula 2.0 28 12/12/18 16:10 141/80 12/12/18 16:00 98.3 83 18 141/80 (100) 100 12/12/18 16:00 Nasal Cannula 2.0 12/12/18 16:00 80 12/12/18 13:41 82 18 98 Nasal Cannula 2.0 28 12/12/18 13:31 81 18 98 Nasal Cannula 2.0 28 12/12/18 13:31 98 Nasal Cannula 2.0 28 12/12/18 13:31 Nasal Cannula 2.0 28 12/12/18 13:31 81 18 Nasal Cannula 2.0 28 12/12/18 12:00 97.7 74 18 117/65 (82) 100 12/12/18 12:00 72 12/12/18 12:00 Nasal Cannula 2.0 Intake and Output 12/12/18 12/13/18 18:59 06:59 Intake Total 905 ml Output Total 650 ml 1600 ml Balance -650 ml -695 ml Free Water 300 ml Tube Feeding 605 ml Output Urine Total 650 ml 1600 ml # Bowel Movements 4 1 Laboratory Tests Test 12/13/18 05:13 White Blood Count 3.3 K/UL (4.8-10.8) L Red Blood Count 2.93 M/UL (4.20-5.40) L Hemoglobin 9.0 G/DL (12.0-16.0) L Hematocrit 28.7 % (37.0-47.0) L Mean Corpuscular Volume 98 FL (80-99) Mean Corpuscular Hemoglobin 30.8 PG (27.0-31.0) Mean Corpuscular Hemoglobin Concent 31.4 G/DL (32.0-36.0) L Red Cell Distribution Width 16.8 % (11.6-14.8) H Platelet Count 60 K/UL (150-450) L Mean Platelet Volume 8.3 FL (6.5-10.1) Neutrophils (%) (Auto) % (45.0-75.0) Lymphocytes (%) (Auto) % (20.0-45.0) Monocytes (%) (Auto) % (1.0-10.0) Eosinophils (%) (Auto) % (0.0-3.0) Basophils (%) (Auto) % (0.0-2.0) Differential Total Cells Counted 100 Neutrophils % (Manual) 80 % (45-75) H Lymphocytes % (Manual) 15 % (20-45) L Monocytes % (Manual) 3 % (1-10) Eosinophils % (Manual) 2 % (0-3) Basophils % (Manual) 0 % (0-2) Band Neutrophils 0 % (0-8) Platelet Estimate Decreased L Platelet Morphology Normal Anisocytosis 1+ Sodium Level 147 MMOL/L (136-145) H Potassium Level 4.1 MMOL/L (3.5-5.1) Chloride Level 111 MMOL/L (98-107) H Carbon Dioxide Level 34 MMOL/L (21-32) H Anion Gap 2 mmol/L (5-15) L Blood Urea Nitrogen 21 mg/dL (7-18) H Creatinine 0.7 MG/DL (0.55-1.30) Estimat Glomerular Filtration Rate mL/min (>60) Glucose Level 159 MG/DL (74-106) H Calcium Level 9.4 MG/DL (8.5-10.1) Height (Feet): 5 Height (Inches): 3.00 Weight (Pounds): 124 General Appearance: WD/WN, no apparent distress, alert Cardiovascular: normal rate Respiratory/Chest: normal breath sounds, no respiratory distress Abdominal Exam: normal bowel sounds, non tender, soft, GT site - Clean dry and intact Extremities: non-tender Aidee Powell NP Dec 13, 2018 11:12
--- NOTE | 2018-12-13 11:57 | NUR ---
*-* DISCHARGE PLANNING *-* PATIENT HAS BEEN REFERRED BACK TO: [facility] P:[phone] F:[phone]
[2018-12-13 12:00] VITALS: BP 140/75
--- NOTE | 2018-12-13 12:19 | Infectious Diseases Prog Note ---
Assessment/Plan Assessment/Plan A: 1. Proteus Sepsis 2. urinary tract infection with E.coli & Proteus 3. Atelectasis on chest x-ray, may have underlying pneumonia. 4. Diabetes mellitus type 2. 5. Dementia. 6. Pancytopenia. 7. Pressure ulcer 8. MRSA & VRE colonization RECOMMENDATION: 1. observe off antibiotic 2. Agree with discharge Subjective ROS Limited/Unobtainable: Yes Allergies: Coded Allergies: No Known Allergies (Unverified , 07/26/18) Objective Vital Signs Last 24 Hour Vital Signs Date Time Temp Pulse Resp B/P (MAP) Pulse Ox O2 Delivery O2 Flow Rate FiO2 12/13/18 12:07 81 18 98 Nasal Cannula 2.0 28 12/13/18 09:00 Nasal Cannula 2.0 12/13/18 08:21 84 157/75 12/13/18 08:00 98.0 70 18 154/70 (98) 100 12/13/18 08:00 69 12/13/18 07:43 81 18 98 Nasal Cannula 2.0 28 12/13/18 07:33 Nasal Cannula 2.0 28 12/13/18 07:33 98 Nasal Cannula 2.0 28 12/13/18 07:33 85 18 98 Nasal Cannula 2.0 28 12/13/18 04:00 74 12/13/18 04:00 98.2 76 18 135/72 (93) 100 12/13/18 01:43 86 18 98 Nasal Cannula 2.0 28 12/13/18 01:27 83 18 96 Nasal Cannula 2.0 28 12/13/18 00:00 80 12/13/18 00:00 98.5 99 18 148/91 (110) 97 12/12/18 21:00 Nasal Cannula 2.0 12/12/18 20:45 96 143/81 12/12/18 20:00 94 12/12/18 20:00 98.6 94 18 145/81 (102) 100 12/12/18 19:47 87 18 98 Nasal Cannula 2.0 28 12/12/18 19:37 98 Nasal Cannula 2.0 28 12/12/18 19:37 Nasal Cannula 2.0 28 12/12/18 19:37 89 18 98 Nasal Cannula 2.0 28 12/12/18 16:10 141/80 12/12/18 16:00 98.3 83 18 141/80 (100) 100 12/12/18 16:00 Nasal Cannula 2.0 12/12/18 16:00 80 12/12/18 13:41 82 18 98 Nasal Cannula 2.0 28 12/12/18 13:31 81 18 98 Nasal Cannula 2.0 28 12/12/18 13:31 98 Nasal Cannula 2.0 28 12/12/18 13:31 Nasal Cannula 2.0 28 12/12/18 13:31 81 18 Nasal Cannula 2.0 28 Height (Feet): 5 Height (Inches): 3.00 Weight (Pounds): 124 General Appearance: no acute distress HEENT: mucous membranes moist Respiratory/Chest: lungs clear Cardiovascular: normal rate Abdomen: soft, non tender, other - GT feeding Extremities: no edema Neurologic/Psychiatric: aphasia Laboratory Tests Test 12/13/18 05:13 White Blood Count 3.3 K/UL (4.8-10.8) L Red Blood Count 2.93 M/UL (4.20-5.40) L Hemoglobin 9.0 G/DL (12.0-16.0) L Hematocrit 28.7 % (37.0-47.0) L Mean Corpuscular Volume 98 FL (80-99) Mean Corpuscular Hemoglobin 30.8 PG (27.0-31.0) Mean Corpuscular Hemoglobin Concent 31.4 G/DL (32.0-36.0) L Red Cell Distribution Width 16.8 % (11.6-14.8) H Platelet Count 60 K/UL (150-450) L Mean Platelet Volume 8.3 FL (6.5-10.1) Neutrophils (%) (Auto) % (45.0-75.0) Lymphocytes (%) (Auto) % (20.0-45.0) Monocytes (%) (Auto) % (1.0-10.0) Eosinophils (%) (Auto) % (0.0-3.0) Basophils (%) (Auto) % (0.0-2.0) Differential Total Cells Counted 100 Neutrophils % (Manual) 80 % (45-75) H Lymphocytes % (Manual) 15 % (20-45) L Monocytes % (Manual) 3 % (1-10) Eosinophils % (Manual) 2 % (0-3) Basophils % (Manual) 0 % (0-2) Band Neutrophils 0 % (0-8) Platelet Estimate Decreased L Platelet Morphology Normal Anisocytosis 1+ Sodium Level 147 MMOL/L (136-145) H Potassium Level 4.1 MMOL/L (3.5-5.1) Chloride Level 111 MMOL/L (98-107) H Carbon Dioxide Level 34 MMOL/L (21-32) H Anion Gap 2 mmol/L (5-15) L Blood Urea Nitrogen 21 mg/dL (7-18) H Creatinine 0.7 MG/DL (0.55-1.30) Estimat Glomerular Filtration Rate mL/min (>60) Glucose Level 159 MG/DL (74-106) H Calcium Level 9.4 MG/DL (8.5-10.1) Current Medications Medications (Trade) Dose Ordered Sig/Laure Route PRN Reason Start Time Stop Time Status Last Admin Dose Admin Acetaminophen (Tylenol) 650 mg Q4H PRN NG Mild Pain/Temp > 100.5 12/11/18 19:00 01/10/19 18:59 Albuterol/ Ipratropium (Albuterol/ Ipratropium) 3 ml Q4H PRN HHN Shortness of Breath 12/12/18 12:30 12/17/18 12:29 Albuterol/ Ipratropium (Albuterol/ Ipratropium) 3 ml Q6HRT HHN 12/12/18 13:00 12/17/18 12:59 12/13/18 12:07 Dextrose (Dextrose 50%) 25 ml Q30M PRN IV Hypoglycemia 12/11/18 19:30 12/31/18 12:29 Dextrose (Dextrose 50%) 50 ml Q30M PRN IV Hypoglycemia 12/11/18 19:30 12/31/18 12:29 Insulin Aspart (NovoLOG) Q6HR SUBQ 12/12/18 00:00 12/31/18 17:59 12/13/18 05:50 Metoprolol Tartrate (Lopressor) 25 mg Q12HR ORAL 12/11/18 21:00 01/02/19 16:59 12/13/18 08:21 Nitroglycerin (Ntg) 1 patch Q24H TDERMAL 12/12/18 16:00 01/01/19 15:59 12/12/18 16:10 Ondansetron HCl (Zofran) 4 mg Q6H PRN IVP Nausea & Vomiting 12/11/18 19:00 12/31/18 18:59 Potassium Chloride (K-Dur) 40 meq BID GT 12/12/18 18:00 01/06/19 17:59 12/13/18 08:23 Shimon Card MD Dec 13, 2018 12:19
--- NOTE | 2018-12-13 12:50 | Nephrology Progress Note ---
Assessment/Plan Problem List: (1) Sepsis Assessment: low bp (2) Oliguria Assessment: due low bp (3) Anemia (4) Hypokalemia (5) Diabetic nephropathy (6) Elevated troponin I level Assessment Oliguria due to low BP Sepsis and low BP Elevated troponin UTI (urinary tract infection) Pneumonia Anemia worsening DM+ Proteinuria: Nephropathy s/p IVC Filter Acute encephalopathy HypoAlbuminemia Plan D5W 500 cc as needed K Phos , KCl , MgSo4 IV ordered antibiotics avoid nephrotoxics anemia mac per orders ? DC planning? Subjective ROS Limited/Unobtainable: No Constitutional: Reports: malaise, weakness Objective Objective Last 24 Hour Vital Signs Date Time Temp Pulse Resp B/P (MAP) Pulse Ox O2 Delivery O2 Flow Rate FiO2 12/13/18 12:18 90 18 98 Nasal Cannula 2.0 28 12/13/18 12:07 81 18 98 Nasal Cannula 2.0 28 12/13/18 09:00 Nasal Cannula 2.0 12/13/18 08:21 84 157/75 12/13/18 08:00 98.0 70 18 154/70 (98) 100 12/13/18 08:00 69 12/13/18 07:43 81 18 98 Nasal Cannula 2.0 28 12/13/18 07:33 Nasal Cannula 2.0 28 12/13/18 07:33 98 Nasal Cannula 2.0 28 12/13/18 07:33 85 18 98 Nasal Cannula 2.0 28 12/13/18 04:00 74 12/13/18 04:00 98.2 76 18 135/72 (93) 100 12/13/18 01:43 86 18 98 Nasal Cannula 2.0 28 12/13/18 01:27 83 18 96 Nasal Cannula 2.0 28 12/13/18 00:00 80 12/13/18 00:00 98.5 99 18 148/91 (110) 97 12/12/18 21:00 Nasal Cannula 2.0 12/12/18 20:45 96 143/81 12/12/18 20:00 94 12/12/18 20:00 98.6 94 18 145/81 (102) 100 12/12/18 19:47 87 18 98 Nasal Cannula 2.0 28 12/12/18 19:37 98 Nasal Cannula 2.0 28 12/12/18 19:37 Nasal Cannula 2.0 28 12/12/18 19:37 89 18 98 Nasal Cannula 2.0 28 12/12/18 16:10 141/80 12/12/18 16:00 98.3 83 18 141/80 (100) 100 12/12/18 16:00 Nasal Cannula 2.0 12/12/18 16:00 80 12/12/18 13:41 82 18 98 Nasal Cannula 2.0 28 12/12/18 13:31 81 18 98 Nasal Cannula 2.0 28 12/12/18 13:31 98 Nasal Cannula 2.0 28 12/12/18 13:31 Nasal Cannula 2.0 28 12/12/18 13:31 81 18 Nasal Cannula 2.0 28 Intake and Output 12/12/18 12/13/18 18:59 06:59 Intake Total 905 ml Output Total 650 ml 1600 ml Balance -650 ml -695 ml Free Water 300 ml Tube Feeding 605 ml Output Urine Total 650 ml 1600 ml # Bowel Movements 4 1 Laboratory Tests 12/13/18 05:13: White Blood Count 3.3L, Red Blood Count 2.93L, Hemoglobin 9.0L, Hematocrit 28.7L , Mean Corpuscular Volume 98, Mean Corpuscular Hemoglobin 30.8, Mean Corpuscular Hemoglobin Concent 31.4L, Red Cell Distribution Width 16.8H, Platelet Count 60L, Mean Platelet Volume 8.3, Neutrophils (%) (Auto) , Lymphocytes (%) (Auto) , Monocytes (%) (Auto) , Eosinophils (%) (Auto) , Basophils (%) (Auto) , Differential Total Cells Counted 100, Neutrophils % ( Manual) 80H, Lymphocytes % (Manual) 15L, Monocytes % (Manual) 3, Eosinophils % ( Manual) 2, Basophils % (Manual) 0, Band Neutrophils 0, Platelet Estimate DecreasedL, Platelet Morphology Normal, Anisocytosis 1+, Sodium Level 147H, Potassium Level 4.1, Chloride Level 111H, Carbon Dioxide Level 34H, Anion Gap 2L , Blood Urea Nitrogen 21H, Creatinine 0.7, Estimat Glomerular Filtration Rate , Glucose Level 159H, Calcium Level 9.4 Height (Feet): 5 Height (Inches): 3.00 Weight (Pounds): 124 General Appearance: no apparent distress Cardiovascular: normal rate Respiratory/Chest: decreased breath sounds Abdomen: soft Objective no change Parvez Bergman MD Dec 13, 2018 12:50
--- NOTE | 2018-12-13 13:19 | NUR ---
DISCHARGE PLANNED PATIENT WILL BE RETURNING TO [facility] ROOM [address] SHELTER T: [phone] FOR NURSE TO NURSE REPORT [facility] HAS BEEN ARRANGED FOR [address] [employer] CALLED AND SPOKE WITH SON, ROBI, WHO IS IN AGREEMENT WITH DISCHARGE PLAN
--- NOTE | 2018-12-13 15:44 | NUR ---
NURSE NOTES: patient was discharged to [facility] (formerly [facility] no belongings found. report given to medic (caitlyn) of [facility]. report given to ambulance personnel. cardiac cath lab technologist removed and endorsed to [place]. IV line removed and bleeding was stopped. packet endorsed to ambulance personnel. dc patient with fc per dr patel. 151/83, left a message to medic regarding bp
--- NOTE | 2018-12-13 17:46 | General Progress Note ---
Assessment/Plan Assessment/Plan Assessment/Recs: # DVT of the left leg s/p IVC filter in 07/2018-- superficial femoral vein which is a deep vein, new onset, has not had these symptoms before. Lower hgb and plts --> given decreased h/h, low thrombocytopenia, do not recommend anticoag --> appreciate Dr. Parekh and Mariam alcantars from prior admission --> smear reviewed # Pancytopenia, likely related to septicemia, appears new baseline 50-70k, several causes possible including viral, medication or intrabone marrow related. --> Cont to monitor plt count for improvement --> US abd: Mild left hydronephrosis. Possible left renal calyceal calculi. Negative for gallstones or dilated ducts Debris noted within the bladder --> Hep panel and HIV are both negative --> given extremely poor condition do not recommend a bone marrow biopsy, have discussed with family 08/01 with --> will rediscuss once sepsis resolves --> transfuse if plt <20k # Anemia of chronic disease. Multifactorial. Since admission Hgb has consistently remained between 8-9. --> Cont to monitor for stability --> Hgb goal above 7. Transfuse prn. --> IV iron completed prior admission and feritin is elevated # Dehydration. IVF has been administered --> improved # DM OOC --> A1C goal <7 --> Cont on insulin # Bacteremia/prior UTI. --> ID is following. Appreciate recs. --> Pt on IV abx. --> Cultures surveillance as per id # PEG placement 08/04. Greatly appreciate consultation! Subjective Allergies: Coded Allergies: No Known Allergies (Unverified , 07/26/18) Subjective 12/02: seen by bedside, hgb 7.6, will transfuse as needed, plt trending down, GTF on hold, patient on BIPAP, has been tachycardic over night, abx per ID 12/04: Seen by bedside, out of ICU, tolerating TF, off BIPAP, plt trending down to 45, hgb 7.6. 12/05: Pt is resting in bed, hgb 6.6 and plt 39, received transfusion, no events. 12/06: seen by bedside,awake, comfortable, plt 43 12/07: awake, comfortable, plt remains low, hgb 8.8 12/08: seen by bedside, awake, comfortable, hgb 8.3, no events 12/09: awake, comfortable, no acute distress, plt 37 12/11: no events to report, no fevers or chills, no night sweats, plts stable 12/12: awake, comfortable, no events , plt trending up at 54 today. 12/13: seen by bedside, resting in bed, hgb 9, plt 60, pending d/c Objective Last 24 Hour Vital Signs Date Time Temp Pulse Resp B/P (MAP) Pulse Ox O2 Delivery O2 Flow Rate FiO2 12/13/18 12:18 90 18 98 Nasal Cannula 2.0 28 12/13/18 12:07 81 18 98 Nasal Cannula 2.0 28 12/13/18 12:00 97.9 75 20 140/75 (96) 100 12/13/18 09:00 Nasal Cannula 2.0 12/13/18 08:21 84 157/75 12/13/18 08:00 98.0 70 18 154/70 (98) 100 12/13/18 08:00 69 12/13/18 07:43 81 18 98 Nasal Cannula 2.0 28 12/13/18 07:33 Nasal Cannula 2.0 28 12/13/18 07:33 98 Nasal Cannula 2.0 28 12/13/18 07:33 85 18 98 Nasal Cannula 2.0 28 12/13/18 04:00 74 12/13/18 04:00 98.2 76 18 135/72 (93) 100 12/13/18 01:43 86 18 98 Nasal Cannula 2.0 28 12/13/18 01:27 83 18 96 Nasal Cannula 2.0 28 12/13/18 00:00 80 12/13/18 00:00 98.5 99 18 148/91 (110) 97 12/12/18 21:00 Nasal Cannula 2.0 12/12/18 20:45 96 143/81 12/12/18 20:00 94 12/12/18 20:00 98.6 94 18 145/81 (102) 100 12/12/18 19:47 87 18 98 Nasal Cannula 2.0 28 12/12/18 19:37 98 Nasal Cannula 2.0 28 12/12/18 19:37 Nasal Cannula 2.0 28 12/12/18 19:37 89 18 98 Nasal Cannula 2.0 28 Intake and Output 12/12/18 12/13/18 18:59 06:59 Intake Total 905 ml Output Total 650 ml 1600 ml Balance -650 ml -695 ml Free Water 300 ml Tube Feeding 605 ml Output Urine Total 650 ml 1600 ml # Bowel Movements 4 1 Laboratory Tests 12/13/18 05:13: White Blood Count 3.3L, Red Blood Count 2.93L, Hemoglobin 9.0L, Hematocrit 28.7L , Mean Corpuscular Volume 98, Mean Corpuscular Hemoglobin 30.8, Mean Corpuscular Hemoglobin Concent 31.4L, Red Cell Distribution Width 16.8H, Platelet Count 60L, Mean Platelet Volume 8.3, Neutrophils (%) (Auto) , Lymphocytes (%) (Auto) , Monocytes (%) (Auto) , Eosinophils (%) (Auto) , Basophils (%) (Auto) , Differential Total Cells Counted 100, Neutrophils % ( Manual) 80H, Lymphocytes % (Manual) 15L, Monocytes % (Manual) 3, Eosinophils % ( Manual) 2, Basophils % (Manual) 0, Band Neutrophils 0, Platelet Estimate DecreasedL, Platelet Morphology Normal, Anisocytosis 1+, Sodium Level 147H, Potassium Level 4.1, Chloride Level 111H, Carbon Dioxide Level 34H, Anion Gap 2L , Blood Urea Nitrogen 21H, Creatinine 0.7, Estimat Glomerular Filtration Rate , Glucose Level 159H, Calcium Level 9.4 Height (Feet): 5 Height (Inches): 3.00 Weight (Pounds): 124 Objective Physical Exam Vitals: reviewed Gen: confused, on bipap, unable to converse, sleepy Pulm: ++ crackles ++ bipap CV: RRR, no mgr Abd: soft, nt, nd ++ peg Ext: no swelling of lower ext Neuro: demented Dewayne Gayle MD Dec 13, 2018 17:46
--- NOTE | 2018-12-13 23:58 | Cardiology Progress Note ---
Assessment/Plan Assessment/Plan 1. Septic shock, most likely due to bilateral pneumonia as well as associated effusion. Normal LV systolic function with grade I LVDD. 2. Slight elevation of troponin I level likely due to sepsis. 3. DVT status post IVC filter. 4. History of metabolic encephalopathy. 5. History of dementia. 6. History of CVA. 7. History of pancytopenia. Subjective Subjective Sinus rhythm at rate of 90. Objective Last 24 Hour Vital Signs Date Time Temp Pulse Resp B/P (MAP) Pulse Ox O2 Delivery O2 Flow Rate FiO2 12/13/18 12:18 90 18 98 Nasal Cannula 2.0 28 12/13/18 12:07 81 18 98 Nasal Cannula 2.0 28 12/13/18 12:00 97.9 75 20 140/75 (96) 100 12/13/18 09:00 Nasal Cannula 2.0 12/13/18 08:21 84 157/75 12/13/18 08:00 98.0 70 18 154/70 (98) 100 12/13/18 08:00 69 12/13/18 07:43 81 18 98 Nasal Cannula 2.0 28 12/13/18 07:33 Nasal Cannula 2.0 28 12/13/18 07:33 98 Nasal Cannula 2.0 28 12/13/18 07:33 85 18 98 Nasal Cannula 2.0 28 12/13/18 04:00 74 12/13/18 04:00 98.2 76 18 135/72 (93) 100 12/13/18 01:43 86 18 98 Nasal Cannula 2.0 28 12/13/18 01:27 83 18 96 Nasal Cannula 2.0 28 12/13/18 00:00 80 12/13/18 00:00 98.5 99 18 148/91 (110) 97 Intake and Output 12/12/18 12/13/18 19:00 07:00 Intake Total 960 ml Output Total 650 ml 1600 ml Balance -650 ml -640 ml Free Water 300 ml Tube Feeding 660 ml Output Urine Total 650 ml 1600 ml # Bowel Movements 4 1 2D Echo: EF55%, Large left pleural eff., Grade I LVDD, Mild AR/Mod MR/CO,RVSP 37mmHg Laboratory Tests Test 12/13/18 05:13 White Blood Count 3.3 K/UL (4.8-10.8) L Red Blood Count 2.93 M/UL (4.20-5.40) L Hemoglobin 9.0 G/DL (12.0-16.0) L Hematocrit 28.7 % (37.0-47.0) L Mean Corpuscular Volume 98 FL (80-99) Mean Corpuscular Hemoglobin 30.8 PG (27.0-31.0) Mean Corpuscular Hemoglobin Concent 31.4 G/DL (32.0-36.0) L Red Cell Distribution Width 16.8 % (11.6-14.8) H Platelet Count 60 K/UL (150-450) L Mean Platelet Volume 8.3 FL (6.5-10.1) Neutrophils (%) (Auto) % (45.0-75.0) Lymphocytes (%) (Auto) % (20.0-45.0) Monocytes (%) (Auto) % (1.0-10.0) Eosinophils (%) (Auto) % (0.0-3.0) Basophils (%) (Auto) % (0.0-2.0) Differential Total Cells Counted 100 Neutrophils % (Manual) 80 % (45-75) H Lymphocytes % (Manual) 15 % (20-45) L Monocytes % (Manual) 3 % (1-10) Eosinophils % (Manual) 2 % (0-3) Basophils % (Manual) 0 % (0-2) Band Neutrophils 0 % (0-8) Platelet Estimate Decreased L Platelet Morphology Normal Anisocytosis 1+ Sodium Level 147 MMOL/L (136-145) H Potassium Level 4.1 MMOL/L (3.5-5.1) Chloride Level 111 MMOL/L (98-107) H Carbon Dioxide Level 34 MMOL/L (21-32) H Anion Gap 2 mmol/L (5-15) L Blood Urea Nitrogen 21 mg/dL (7-18) H Creatinine 0.7 MG/DL (0.55-1.30) Estimat Glomerular Filtration Rate mL/min (>60) Glucose Level 159 MG/DL (74-106) H Calcium Level 9.4 MG/DL (8.5-10.1) Objective HEENT: Normocephalic, atraumatic, PERRLA, EOMI. On rebreathing mask. NECK: JVP <5cm, No carotid bruit. HEART: Normal S1S2, no murmurs, gallops or rubs, Tachycardic. LUNGS: Decrease BS in the left base. ABDOMEN: Soft and nontender, non-distended, no HSM, + BS. EXTREMITIES: No edema, clubbing or cyanosis. Deepak Aldana MD Dec 13, 2018 23:58
[2018-12-14] MEDS ORDERED: NITROGLYCERIN2.5 MG PO (09:04)
[2018-12-14] MEDS ORDERED: METOPROLOL TART25 MG ORAL (09:04)
[2018-12-14] MEDS ORDERED: ALBUTEROL2.5 MG/3 M INH (09:04)
[2018-12-14] MEDS ORDERED: ACETAMINOP160 MG/54 ORAL (09:04)
[2018-12-14] MEDS ORDERED: NITROGLYCERIN1 EAC2 TD (09:04)
--- NOTE | 2018-12-15 10:47 | Discharge Summary ---
Discharge Summary Discharge Summary _ DATE OF ADMISSION: 12/01/2018 DATE OF DISCHARGE: 12/13/2018 DISCHARGED BY: Dr Asencio REASON FOR ADMISSION: 78 years old female, resident of half-way facility, with past medical history of diabetes mellitus, hypertension, dementia, history of CVA with hemiplegia, history of DVT , status post IVC filter, presented for evaluation due to tachycardia which started prior to presentation to ED. Patient on baseline was nonverbal and unable to provide any history. Upon evaluation patient was febrile with temperature 104 and tachycardic, 160. EKG revealed sinus tachycardia, no acute ischemic changes. Troponin - 0.274. Pro BNP -880. Chest x-ray demonstrated probable bilateral pneumonia. Urinalysis was grossly positive for UTI. Laboratory workup revealed leukopenia with WBC 3.2, lactate 4.2. Septic workup initiated. Patient started on fluid resuscitation, pancultured and initiated on empiric antibiotics. Aspirin provided Patient admitted for further management While still in the emergency room despite adequate fluid resuscitation , patient remained hypertensive. Central line was placed in anticipation for pressor , and patient was transferred to ICU for further management. CONSULTANTS: final cigar and box examiner Dr. Meraz pulmonary ID specialist Dr. Stinson GI specialist Dr. Argueta public health training assistant Dr. Bergman automobile engine assembler/oncologist Dr. Gayle [facility] COURSE: Patient admitted to ICU. Patient started on pressors /Levophed to keep mean arterial pressure above 65. Hemodynamic status was closely monitored. Insurance Sales Supervisor closely followed . Per final cigar and box examiner, elevated troponin was likely due to sepsis , and sinus tachycardia was likely due to hypoxemia, septic shock and pressor. No AV nodular agents were indicated at this time. Patient was able to be weaned from pressor soon. IV hydration was continued with close monitoring of hemodynamic status. Serial troponin trending down . Echocardiogram revealed preserved ejection fraction of 60-65%. No evidence of wall motion abnormality. Possible large posterior pleural effusion. Moderate mitral regurgitation. Right ventricular systolic pressure of 37 , consistent with a mild pulmonary hypertension. Venous duplex bilateral lower extremity revealed recanalized chronic thrombus in the left lower extremity in the superficial femoral vein. No evidence of acute DVT. Patient status post IVC filter placement in 2018. Follow-up chest x-ray demonstrated possible left pleural effusion, no evidence of large pleural effusion. Patient was on antibiotic as per ID recommendation. Blood culture revealed Proteus mirabilis. Rapid influenza screen test was negative. Urine culture revealed E. coli ESBL and Proteus mirabilis. Sacral decubitus revealed Proteus mirabilis , E. coli and MRSA. Patient completed course of antibiotic for urinary tract infection. and possible pneumonia. Fevers resolved, no leukocytosis, leukopenia still present. Tachycardia resolved as patient clinically improved. Supplemental oxygen provided as needed to keep pulse oximetry above 92% ; pulmonary toilet provided around the clock and as needed DVT prophylaxis provided. Strict aspiration precautions were maintained. Tube feeding provided. Patient was able to tolerate tube feeding. Nutritional recommendation implemented in plan of care Electrician Maintenance followed. Electrolytes corrected as needed. Nephrotoxins were avoided. Patient had evidence of diabetic nephropathy. Volumes and cardiorenal parameters were closely monitored. GI specialist followed. Hemoglobin and hematocrit were closely monitored with goal to keep hemoglobin above 7. Hemoglobin remained in the baseline; prior to discharge hemoglobin 9 hematocrit 28.7. Anemia workup demonstrated anemia of chronic disease and elevated ferritin. Patient undergone IV Venofer infusion on previous admission. Stable folate and B12. Lipid panel was stable. Subgrade Roller Operator followed. Per automobile engine assembler, pancytopenia was likely related to septicemia. Ultrasound of the abdomen revealed mild left hydronephrosis, but was negative for gallstones or dilated ducts. Hepatitis panel was negative. HIV test was nonreactive. Given extremely poor condition, automobile engine assembler did not recommend bone marrow biopsy, which was discussed on prior admission in July with her . Platelet count was closely monitored with goal to keep it above 20. Recommendation provided to transfuse if platelet count s below 20. Prior to discharge, WBC 3.3, hemoglobin 9.0 and platelet count 60. Pain management was addressed as needed. Supportive care provided. Blood sugar was managed with sliding scale of insulin as needed. Hemoglobin A1c - 6.4, at goal. Wound care provided as per wound care protocol for sacral decubitus and R heel decubitus ulcers, present on admission . Patient stabilized and was ready for discharge to half-way facility for continuation of care. FINAL DIAGNOSES: Sepsis with Proteus bacteremia due to UTI Septic shock Proteus, E. coli ESBL UTI Possible pneumonia History of DVT , status post IVC filter Dehydration Elevated troponin likely due to sepsis Diabetic nephropathy Electrolyte abnormality Dementia with behavioral disturbances Protein calorie malnutrition Diabetes mellitus Pancytopenia Anemia of chronic disease Sacral and right heel decubitus ulcers, present on admission DISCHARGE MEDICATIONS: List of medication was sent to accepting facility DISCHARGE INSTRUCTIONS: Patient was discharged to the half-way facility. Follow up with medical doctor at the facility. I have been assigned to dictate discharge summary for this account. I was not involved in the patient's management. Sarah Hunter NP Dec 15, 2018 10:47
== END 2018-12-13 15:48 | DRG 871 ==
LOC: EDBD 23:59 → EMR 12-01 00:13 → ICU 12-01 01:43 → EDBEDREQSVC 12-01 05:20 → EDBEDREQ 12-01 06:47 → 2W 12-03 13:00 → 2E 12-11 19:00
PROC: 06HM33Z Insertion of Infusion Device into Right Femoral Vein, Percutaneous Approach (ICD-10-PCS; principal; 2018-12-01)
DX: A41.59 Other Gram-negative sepsis (principal); J18.9 Pneumonia, unspecified organism; R65.21 Severe sepsis with septic shock; G93.41 Metabolic encephalopathy; D61.818 Other pancytopenia; N39.0 Urinary tract infection, site not specified; F03.91 Unspecified dementia, unspecified severity, with behavioral disturbance; J98.11 Atelectasis; J90 Pleural effusion, not elsewhere classified; E46 Unspecified protein-calorie malnutrition; E87.0 Hyperosmolality and hypernatremia; E11.21 Type 2 diabetes mellitus with diabetic nephropathy; E11.65 Type 2 diabetes mellitus with hyperglycemia; I10 Essential (primary) hypertension; Z93.1 Gastrostomy status; R13.10 Dysphagia, unspecified; E78.5 Hyperlipidemia, unspecified; F09 Unspecified mental disorder due to known physiological condition; F41.9 Anxiety disorder, unspecified; D50.9 Iron deficiency anemia, unspecified; Z86.718 Personal history of other venous thrombosis and embolism; Z86.73 Personal history of transient ischemic attack (TIA), and cerebral infarction without residual deficits; E87.6 Hypokalemia; E86.0 Dehydration; Z68.22 Body mass index [BMI] 22.0-22.9, adult; R09.02 Hypoxemia; L89.159 Pressure ulcer of sacral region, unspecified stage; L89.619 Pressure ulcer of right heel, unspecified stage
CPT/HCPCS: 36415; 36600; 71045; 80048; 80053; 80061; 80076; 80202; 81003; 82140; 82550; 82553; 82607; 82728; 82746; 82803; 82962; 82977; 83036; 83540; 83550; 83605; 83735; 83880; 84100; 84443; 84484; 84550; 85007; 85025; 86140; 86710; 86850; 86900; 86901; 86920; 87040; 87070; 87081; 87086; 87181; 87205; 93005; 93306; 93970; 94640; 94660; 94664; 94760; 96361; 96365; 96367; 99291; J1815; J7620; J8499

== ENCOUNTER 2018-12-14 08:58 | Inpatient (IN) | payer OTHER, MEDICAID ==
[~2018-12-14] VITALS: Ht 157.5 cm; Wt 52.2 kg
[~2018-12-14 08:58] MED LIST changes: +FERROUSUL325 M1 GT; +HUMALOG100 UNIT/1 SUBQ
[2018-12-14] MEDS ORDERED: NITROGLYCERIN2.5 MG PO (09:04)
[2018-12-14] MEDS ORDERED: NITROGLYCERIN1 EAC2 TD (09:04)
[2018-12-14] MEDS ORDERED: ALBUTEROL2.5 MG/3 M INH (09:04)
[2018-12-14] MEDS ORDERED: ACETAMINOP160 MG/54 ORAL (09:04)
[2018-12-14] MEDS ORDERED: METOPROLOL TART25 MG ORAL (09:04)
[2018-12-14] MEDS ORDERED: Acetaminophen 650mg/20.3ml GT ONE (09:15)
--- NOTE | 2018-12-14 09:20 | NUR ---
ED Nurse Note:pt. was BIBA from SNF with sepsis fever 101.7 and ALOC, pt. is lethargic on arrival , O@ 2L via N/C tachycardic , came with F/C, placed on traffic monitor specialist and EKG done, blood and urine sent to labs, given IV fluids with tylenol
--- NOTE | 2018-12-14 09:29 | Emergency Room Report ---
History of Present Illness General Chief Complaint: Altered Level of Consciousness Source: Medical Record Present Illness HPI 78-year-old female presents ED for evaluation. Patient coming from senior living facility for evaluation of altered mental status and weakness. Febrile in triage. Patient has history of dementia. Patient was discharged yesterday from [facility] back to senior living facility however nursing staff states that patient continues to be altered and reportedly had fever this morning. Upon arrival patient showing no signs of distress. one episode of vomiting prior to arrival. Unable to provide any additional history at this time. No other aggravating relieving factors. No other associated symptoms Allergies: Coded Allergies: No Known Allergies (Unverified , 12/14/18) Patient History Past Medical History: dementia Past Surgical History: other - Gtube Pertinent Family History: none Social History: Denies: smoking, alcohol use, drug use Now: No Immunizations: UTD Reviewed Nursing Documentation: PMH: Agreed; PSxH: Agreed Nursing Documentation-PMH Past Medical History: No History, Except For Hx Cardiac Problems: No - THROMBOCYTOPENIA, HYPOKALEMIA Hx Diabetes: Yes Hx Cancer: No Hx Gastrointestinal Problems: Yes - G-tube Hx Neurological Problems: Yes - DEMENTIA, Hx Cerebrovascular Accident: Yes - HEMIPLEGIA Hx Dementia: Yes Hx Weakness: Yes Review of Systems All Other Systems: limited Physical Exam Vital Signs Date Time Temp Pulse Resp B/P (MAP) Pulse Ox O2 Delivery O2 Flow Rate FiO2 12/14/18 08:55 101.7 128 18 132/72 96 Room Air Sp02 EP Interpretation: reviewed, normal General Appearance: no apparent distress, lethargic Head: normocephalic Eyes: bilateral eye normal inspection, bilateral eye PERRL ENT: normal ENT inspection Neck: normal inspection Respiratory: chest non-tender, lungs clear, normal breath sounds, speaking full sentences Cardiovascular #1: regular rate, rhythm, no edema Gastrointestinal: normal inspection Rectal: deferred Genitourinary: no CVA tenderness Musculoskeletal: normal inspection Neurologic: other - nonverbal Psychiatric: other - nonverbal Skin: normal inspection Lymphatic: normal inspection Medical Decision Making Diagnostic Impression: Primary Impression: UTI (urinary tract infection) Qualified Codes: N39.0 - Urinary tract infection, site not specified Additional Impression: CVA (cerebral vascular accident) Qualified Codes: I63.9 - Cerebral infarction, unspecified ER Course Hospital Course 78 yo F presents with fever, AMS Differential diagnoses include: sepsis, UTI, dehydration, CVA Clinical course Patient placed on 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 After initial history and physical I ordered labs, EKG, chest x-ray, and CT head labs reviewed- electrolytes ok, no leukocytosis, Hb/Hct stable, UA + bacteria, lactic ok Chest x-ray- sinus tachycardia, no acute ischemic changes interpreted by me CXR - improving L pleural effusion compared to recent CXR CT brain - subacute CVA with some mass effect Discussed findings with neurologist Dr. Durbin. States no indication for Keppra for medical. Patient is on aspirin. Requests Plavix be given and he will consult Patient is out of window for thrombotic therapy as this is subacute given plavix. given abx. given 30cc/kg fluid bolus. Case discussed with Dr. Asencio and he agreed to accept the patient to his service for further care and support I. I feel this is a highly complex case requiring extensive working including EKG/Rhythm strip, Xray/CT/US, Blood/urine lab work, repeat exams while in ED, and administration of strong opiates/narcotics for pain control, admission to hospital or close patient follow up. Diagnosis - CVA, UTI admitted to telemetry in serious condition Labs Test 12/14/18 09:25 White Blood Count 4.7 K/UL (4.8-10.8) Red Blood Count 3.19 M/UL (4.20-5.40) Hemoglobin 9.7 G/DL (12.0-16.0) Hematocrit 31.4 % (37.0-47.0) Mean Corpuscular Volume 98 FL (80-99) Mean Corpuscular Hemoglobin 30.5 PG (27.0-31.0) Mean Corpuscular Hemoglobin Concent 30.9 G/DL (32.0-36.0) Red Cell Distribution Width 16.9 % (11.6-14.8) Platelet Count 65 K/UL (150-450) Mean Platelet Volume 8.6 FL (6.5-10.1) Neutrophils (%) (Auto) % (45.0-75.0) Lymphocytes (%) (Auto) % (20.0-45.0) Monocytes (%) (Auto) % (1.0-10.0) Eosinophils (%) (Auto) % (0.0-3.0) Basophils (%) (Auto) % (0.0-2.0) Differential Total Cells Counted 100 Neutrophils % (Manual) 92 % (45-75) Lymphocytes % (Manual) 7 % (20-45) Monocytes % (Manual) 1 % (1-10) Eosinophils % (Manual) 0 % (0-3) Basophils % (Manual) 0 % (0-2) Band Neutrophils 0 % (0-8) Platelet Estimate Decreased Platelet Morphology Normal Hypochromasia 1+ Anisocytosis 1+ Urine Color Pale yellow Urine Appearance Slightly cloudy Urine pH 7 (4.5-8.0) Urine Specific [place] 1.010 (1.005-1.035) Urine Protein 2+ (NEGATIVE) Urine Glucose (UA) 2+ (NEGATIVE) Urine Ketones Negative (NEGATIVE) Urine Blood 4+ (NEGATIVE) Urine Nitrite Positive (NEGATIVE) Urine Bilirubin Negative (NEGATIVE) Urine Urobilinogen Normal MG/DL (0.0-1.0) Urine Leukocyte Esterase 3+ (NEGATIVE) Urine RBC 30-40 /HPF (0 - 2) Urine WBC 20-30 /HPF (0 - 2) Urine Squamous Epithelial Cells Few /LPF (NONE/OCC) Urine Bacteria Many /HPF (NONE) Sodium Level 147 MMOL/L (136-145) Potassium Level 3.5 MMOL/L (3.5-5.1) Chloride Level 110 MMOL/L (98-107) Carbon Dioxide Level 31 MMOL/L (21-32) Anion Gap 6 mmol/L (5-15) Blood Urea Nitrogen 28 mg/dL (7-18) Creatinine 0.9 MG/DL (0.55-1.30) Estimat Glomerular Filtration Rate mL/min (>60) Glucose Level 251 MG/DL (74-106) Lactic Acid Level 1.70 mmol/L (0.4-2.0) Calcium Level 9.1 MG/DL (8.5-10.1) Total Bilirubin 0.9 MG/DL (0.2-1.0) Aspartate Amino Transf (AST/SGOT) 32 U/L (15-37) Alanine Aminotransferase (ALT/SGPT) 17 U/L (12-78) Alkaline Phosphatase 71 U/L (46-116) Pro-B-Type Natriuretic Peptide 1134 pg/mL (0-125) Total Protein 6.9 G/DL (6.4-8.2) Albumin 2.3 G/DL (3.4-5.0) Globulin 4.6 g/dL Albumin/Globulin Ratio 0.5 (1.0-2.7) EKG Diagnostic Results Rate: tachycardiac Rhythm: NSR ST Segments: no acute changes ASA given to the pt in ED: No Rhythm Strip Diag. Results EP Interpretation: yes Rhythm: NSR, no PVC's, no ectopy Chest X-Ray Diagnostic Results Chest X-Ray Diagnostic Results : Chest X-Ray Ordered: Yes # of Views/Limited/Complete: 1 View Indication: Other EP Interpretation: Yes Interpretation: no consolidation, no pneumothorax, no acute cardiopulmonary disease, other - L pleural effusion Impression: Other - pleural effusion Electronically Signed by: Electronically signed by Angel Rollins MD Last Vital Signs Date Time Temp Pulse Resp B/P (MAP) Pulse Ox O2 Delivery O2 Flow Rate FiO2 12/14/18 08:55 101.7 128 18 132/72 96 Room Air Status: improved Disposition: ADMITTED INPATIENT Condition: Serious Referrals: NON PHYSICIAN (PCP) Angel Rollins MD Dec 14, 2018 09:29
[2018-12-14 09:41] LABS: APPEARANCE,URINE SLIGHTLY CLOUDY; BILIRUBIN, URINE NEGATIVE (NEGATIVE); COLOR,URINE PALE YELLOW; GLUCOSE, URINE (UA) 2+ (NEGATIVE); KETONES,URINE NEGATIVE (NEGATIVE); LEUKOCYTE ESTERASE ,URINE 3+ (NEGATIVE); NITRITE,URINE POSITIVE (NEGATIVE); PH,URINE 7 (4.5-8.0); PROTEIN,URINE 2+ (NEGATIVE); UROBILINOGEN,URINE NORMAL MG/DL (0.0-1.0)
[2018-12-14 09:42] LABS: HEMATOCRIT 31.4 % (37.0-47.0); HEMOGLOBIN 9.7 G/DL (12.0-16.0); MEAN CORPUSCULAR VOLUME 98 FL (80-99); PLATELET COUNT 65 K/UL (150-450); RED BLOOD COUNT 3.19 M/UL (4.20-5.40); RED CELL DISTRIBUTION WIDTH 16.9 % (11.6-14.8); WHITE BLOOD COUNT 4.7 K/UL (4.8-10.8)
[2018-12-14 09:43] VITALS: BP 132/72
[2018-12-14 09:55] LABS: ANION GAP 6 mmol/L (5-15); BLOOD UREA NITROGEN 28 mg/dL (7-18); CALCIUM 9.1 MG/DL (8.5-10.1); CARBON DIOXIDE 31 MMOL/L (21-32); CHLORIDE 110 MMOL/L (98-107); CREATININE 0.9 MG/DL (0.55-1.30); POTASSIUM 3.5 MMOL/L (3.5-5.1); SODIUM 147 MMOL/L (136-145)
[2018-12-14] MEDS ORDERED: Piperacillin/Tazobactam 3.375 GM in NS 110 ML IVPB ONE (10:00)
--- NOTE | 2018-12-14 10:00 | NUR ---
ED Nurse Note:pt. had CT head done
--- NOTE | 2018-12-14 10:03 | Diagnostic Imaging Report ---
Indications: Altered mental status Technique: Spiral acquisitions obtained through the brain. Angled axial and coronal 5 x 5 mm slices were reconstructed. Total dose length product 1446.46 mGycm. CTDI vol(s) 70.38 mGy. Dose reduction achieved using automated exposure control Comparison: None. Findings: There is a wedge-shaped area of low-attenuation cytotoxic edema involving the right occipital lobe and extending into the posterior parasagittal parietal lobe. This demonstrates local mass effect, with effacement of local sulci, effacement of the atrium and occipital horn of the right lateral ventricle, and slight anterior displacement of the atrium of the lateral ventricle. Contiguous with this is cytotoxic edema involving the inferior and anterior right temporal lobe. This also results in local mass effect with effacement of the temporal horn of the right lateral ventricle and of the adjacent extra-axial CSF spaces. There is no associated hemorrhage. There is a large area of low-attenuation in the anterior right basal ganglia region. This involves the caudate head, anterior limb of the right internal capsule, and possibly the anterior lentiform nucleus. This also results in mass effect, with effacement of the adjacent frontal horn of the right lateral ventricle. No definite midline shift. No associated hemorrhage There is age-related enlargement of the ventricles and extra-axial CSF spaces. There is encephalomalacia of the left medial occipital lobe. Old lacunar infarcts are seen in the bilateral basal ganglia as well as in the right side of the anni and the right cerebellar hemisphere. No acute intracranial hemorrhage. The basilar cisterns are patent. The calvarium is intact. The included sinuses are clear. The orbits are unremarkable. Impression: Findings consistent with late subacute nonhemorrhagic infarct of the right occipital, temporal, and posterior parietal lobes. This results in local mass effect as described This is a middle cerebral artery distribution infarct Findings consistent with large late subacute nonhemorrhagic infarct in the anterior right basal ganglia region. This results in local mass effect as described Multiple old infarcts as detailed above Other chronic and age-related changes, as detailed above No acute intracranial bleed. No midline shift or evidence of uncal herniation Critical value findings phoned to Dr. Rollins in the emergency room at the time of interpretation The CT scanner at [facility] is accredited by the [employer] and the scans are performed using protocols designed to limit radiation exposure to as low as reasonably achievable to attain images of sufficient resolution adequate for diagnostic evaluation.
[2018-12-14 10:04] LABS: ALANINE AMINOTRANSFERASE 17 U/L (12-78); ALBUMIN 2.3 G/DL (3.4-5.0); ALBUMIN/GLOBULIN RATIO 0.5 (1.0-2.7); ALKALINE PHOSPHATASE 71 U/L (46-116); ASPARTATE AMINO TRANSFERASE 32 U/L (15-37); BILIRUBIN,TOTAL 0.9 MG/DL (0.2-1.0)
--- NOTE | 2018-12-14 10:49 | Diagnostic Imaging Report ---
Indication: Shortness of breath Technique: One view of the chest Comparison: 12/02/2018 Findings: There is improved aeration of the right lung base. There is obscuration of left hemidiaphragm and retrocardiac opacification, consistent with likely pleural fluid and infiltrate. This appears decreased from the previous study, however. The heart size is normal. Impression: Left basilar pleural fluid and likely consolidation, appearing improved from prior study of 12/02/2018 Minimal if any right basilar atelectasis, improved also from prior study
[2018-12-14 11:01] VITALS: BP 113/56
--- NOTE | 2018-12-14 11:13 | NUR ---
ED Nurse Note:pt. is in stable condition, will go to [facility] per dr. jorge rapp
[2018-12-14 12:54] VITALS: BP 133/55
--- NOTE | 2018-12-14 13:12 | NUR ---
ED Nurse Note:called sdu with report- nurse is not available
--- NOTE | 2018-12-14 13:42 | NUR ---
ED Nurse Note:pt. has small sacral wound -picture was taken and dressing placed
--- NOTE | 2018-12-14 14:14 | NUR ---
ED Nurse Note:pt. was transfered to SDU -report given to Doyle DYKES
[2018-12-14 14:20] VITALS: BP 127/64
--- NOTE | 2018-12-14 14:20 | NUR ---
NURSE NOTES: Patient received lying in bed, non-verbal, flay affect, no signs of pain noted. On 2 lpm nasal cannula, no acute respiratory distress. G-tube clamped. Blister noted near g-tube site. Leiva catheter intact and draining to yellow urine with sediments noted. Right forearm IV 18 g, saline lock. Skin assessment done. SR on the monitor. Safety measures implemented.
--- NOTE | 2018-12-14 14:47 | NUR ---
CASE MANAGEMENT: INITIAL REVIEW 78 YO F KELLY FROM [facility] CC: ALOC PMHx: AMS. DEMENTIA. GTUBE. SI:FEVER. AMS. T 101.7 HR 128 RR 18 B/P 132/72 SATS 96% ON RA WBC 4.7 NA 147 CL 110 BUN 28 GLU 251 BNP 1134 IS: NS BOLUS X1 TYLENOL GT X1 CT HEAD (Impression: Findings consistent with late subacute nonhemorrhagic infarct of the right occipital, temporal, and posterior parietal lobes. This results in local mass effect as described This is a middle cerebral artery distribution infarct. Findings consistent with large late subacute nonhemorrhagic infarct in the anterior right basal ganglia region. This results in local mass effect as described.) PATIENT ADMITTED TO SDU 12/14/2018 @ 09 DCP: PATIENT TO BE DISCHARGED TO HOME ONCE MEDICALLY CLEARED. Addendum: 12/14/18 at 1731 by Jaquelin Francois CM [employer]
--- NOTE | 2018-12-14 14:55 | GI Progress Note ---
Assessment/Plan Problems: (1) Altered mental status ICD Codes: R41.82 - Altered mental status, unspecified SNOMED: 120418206 (2) Anemia ICD Codes: D64.9 - Anemia, unspecified SNOMED: 998185941 (3) Thrombocytopenia ICD Codes: D69.6 - Thrombocytopenia, unspecified SNOMED: 607878859 (4) Malnutrition ICD Codes: E46 - Unspecified protein-calorie malnutrition SNOMED: 30401821 (5) Dehydration ICD Codes: E86.0 - Dehydration SNOMED: 26088552 Status: not improved, unchanged Status Narrative Discussed with Dr. Argueta. Assessment/Plan GTF prn transfusions ppi reglan if needed abx per ID supportive care fu labs The patient was seen and examined at bedside and all new and available data was reviewed in the patients chart. I agree with the above findings, impression and plan. (Patient seen earlier today. Signature stamp does not reflect patient encounter time.). - Edwardo Argueta MD Subjective Subjective limited Objective Last 24 Hour Vital Signs Date Time Temp Pulse Resp B/P (MAP) Pulse Ox O2 Delivery O2 Flow Rate FiO2 12/14/18 14:13 98.9 81 18 133/55 100 Nasal Cannula 2.0 12/14/18 12:54 98.9 81 18 133/55 100 Nasal Cannula 2.0 12/14/18 11:01 98.9 96 18 113/56 100 Nasal Cannula 2.0 12/14/18 10:49 98.9 12/14/18 09:53 119 18 Nasal Cannula 2.0 12/14/18 09:43 101.7 119 18 132/72 96 Nasal Cannula 2.0 12/14/18 08:55 101.7 128 18 132/72 96 Room Air Laboratory Tests Test 12/14/18 09:25 White Blood Count 4.7 K/UL (4.8-10.8) L Red Blood Count 3.19 M/UL (4.20-5.40) L Hemoglobin 9.7 G/DL (12.0-16.0) L Hematocrit 31.4 % (37.0-47.0) L Mean Corpuscular Volume 98 FL (80-99) Mean Corpuscular Hemoglobin 30.5 PG (27.0-31.0) Mean Corpuscular Hemoglobin Concent 30.9 G/DL (32.0-36.0) L Red Cell Distribution Width 16.9 % (11.6-14.8) H Platelet Count 65 K/UL (150-450) L Mean Platelet Volume 8.6 FL (6.5-10.1) Neutrophils (%) (Auto) % (45.0-75.0) Lymphocytes (%) (Auto) % (20.0-45.0) Monocytes (%) (Auto) % (1.0-10.0) Eosinophils (%) (Auto) % (0.0-3.0) Basophils (%) (Auto) % (0.0-2.0) Differential Total Cells Counted 100 Neutrophils % (Manual) 92 % (45-75) H Lymphocytes % (Manual) 7 % (20-45) L Monocytes % (Manual) 1 % (1-10) Eosinophils % (Manual) 0 % (0-3) Basophils % (Manual) 0 % (0-2) Band Neutrophils 0 % (0-8) Platelet Estimate Decreased L Platelet Morphology Normal Hypochromasia 1+ Anisocytosis 1+ Urine Color Pale yellow Urine Appearance Slightly cloudy Urine pH 7 (4.5-8.0) Urine Specific Torrey 1.010 (1.005-1.035) Urine Protein 2+ (NEGATIVE) H Urine Glucose (UA) 2+ (NEGATIVE) H Urine Ketones Negative (NEGATIVE) Urine Blood 4+ (NEGATIVE) H Urine Nitrite Positive (NEGATIVE) H Urine Bilirubin Negative (NEGATIVE) Urine Urobilinogen Normal MG/DL (0.0-1.0) Urine Leukocyte Esterase 3+ (NEGATIVE) H Urine RBC 30-40 /HPF (0 - 2) H Urine WBC 20-30 /HPF (0 - 2) H Urine Squamous Epithelial Cells Few /LPF (NONE/OCC) Urine Bacteria Many /HPF (NONE) H Sodium Level 147 MMOL/L (136-145) H Potassium Level 3.5 MMOL/L (3.5-5.1) Chloride Level 110 MMOL/L (98-107) H Carbon Dioxide Level 31 MMOL/L (21-32) Anion Gap 6 mmol/L (5-15) Blood Urea Nitrogen 28 mg/dL (7-18) H Creatinine 0.9 MG/DL (0.55-1.30) Estimat Glomerular Filtration Rate mL/min (>60) Glucose Level 251 MG/DL (74-106) H Lactic Acid Level 1.70 mmol/L (0.4-2.0) Calcium Level 9.1 MG/DL (8.5-10.1) Total Bilirubin 0.9 MG/DL (0.2-1.0) Aspartate Amino Transf (AST/SGOT) 32 U/L (15-37) Alanine Aminotransferase (ALT/SGPT) 17 U/L (12-78) Alkaline Phosphatase 71 U/L (46-116) Pro-B-Type Natriuretic Peptide 1134 pg/mL (0-125) H Total Protein 6.9 G/DL (6.4-8.2) Albumin 2.3 G/DL (3.4-5.0) L Globulin 4.6 g/dL Albumin/Globulin Ratio 0.5 (1.0-2.7) L Microbiology Date/Time Source Procedure Growth Status 12/14/18 09:25 Nasal Nares Influenza Types A,B Antigen (KYLE) - Final Complete Height (Feet): 5 Height (Inches): 2.00 Weight (Pounds): 130 General Appearance: no apparent distress, thin Cardiovascular: normal rate Respiratory/Chest: normal breath sounds, no respiratory distress Abdominal Exam: normal bowel sounds, non tender, soft, GT site - c/d/i Aidee Powell NP Dec 14, 2018 14:55
[2018-12-14 16:00] VITALS: BP 130/66
--- NOTE | 2018-12-14 16:40 | NUR ---
NURSE NOTES: Received admission orders from Dr. Asencio.
[2018-12-14] MEDS ORDERED: Albuterol/Ipratropium 3ml neb HHN PRN (17:15)
[2018-12-14] MEDS: Nitroglycerin Patch 0.4mg TDERMAL SCH (17:59)
--- NOTE | 2018-12-14 19:35 | NUR ---
HAND-OFF: Report given to DONIS Alvarez.
[2018-12-14 20:00] VITALS: BP 120/65
--- NOTE | 2018-12-14 20:00 | NUR ---
NURSE NOTES: Patient received from Doyle Bray RN. Patient is non-verbal but awake. Patient semi-fowlers positioned. Temperature noted to be 100.3F. NAD at this time, Vitals remains stable, Hung patients Feeds, Glucerna 1.2 at 55ml goal. water flush provided, L arm 22G running TKO.
--- NOTE | 2018-12-14 20:16 | Consultation ---
DATE OF CONSULTATION: 12/14/2018 INFECTIOUS DISEASE CONSULT: CONSULTING PHYSICIAN: Shimon Card M.D. PRIMARY ATTENDING: Yi Asencio M.D. REASON FOR CONSULT: UTI, fever. HISTORY OF PRESENT ILLNESS: This is a 78-year-old Turkmen female admitted today. The patient had a recent history of sepsis and septic shock and was just discharged yesterday to a nursing facility from [facility]. In the half-way, the patient had fever of 101.7. The patient was tachycardic. She is not verbal and not a source of history. PAST MEDICAL HISTORY: Significant for CVA, dementia, diabetes mellitus type 2, pancytopenia. The patient is status post G-tube placement. Had MRSA colonization, sacral pressure ulcer, VRE colonization. ALLERGIES: No known drug allergies. MEDICATIONS: Are Zosyn. Got a dose of Tylenol, Zosyn, sodium chloride, Plavix in the ER. REVIEW OF SYSTEMS: Unobtainable. PHYSICAL EXAMINATION: VITAL SIGNS: Maximum temperature 101.7, current temperature 98.9, blood pressure 133/55, pulse 81. GENERAL APPEARANCE: No acute distress. HEAD AND NECK: Getting oxygen by nasal cannula. HEART: Normal rate. Has peripheral line. LUNGS: Clear. ABDOMEN: Soft. G-tube feeding. EXTREMITIES: No edema. LABORATORY AND DIAGNOSTIC DATA: WBC 4.7, hemoglobin 9.7, hematocrit 31.4, platelets 65. Sodium 147, potassium 3.5, chloride 110, bicarbonate 31, BUN 28, creatinine 0.9, glucose 251. UA showed wbc's of 20 to 30, rbc's of 30 to 40, nitrite positive. Cultures are pending. Influenza test was negative. IMPRESSION: Sepsis with fever and tachycardia. Source seems to be UTI. The patient had x-ray that shows left basilar atelectasis that is improved since previous study on 12/02/2018. CT scan of the head shows cerebral infarct that seems to be subacute. Has diabetes mellitus type 2, dementia, G-tube status. Has pancytopenia. RECOMMENDATION: Continue Zosyn. We will follow up blood culture and urine cultures. At the end of my exam, I thank Dr. Asencio for involving me in the care of this patient. Shimon Card M.D. DR: ANTIONE JOB#: [id number] CC:
[2018-12-14] MEDS: Metoprolol 25mg tab ORAL SCH (20:47)
[2018-12-14] MEDS ORDERED: NovoLOG Insulin Flexpen SUBQ SCH ×2 (21:00)
[2018-12-14] MEDS: Piperacillin/Tazobactam 3.375 GM in D5W 110 ML IVPB SCH (22:00)
--- NOTE | 2018-12-14 23:01 | Consultation ---
DATE OF CONSULTATION: 12/14/2018 NEUROLOGIC CONSULTATION: CONSULTING PHYSICIAN: Gerry Durbin M.D. CHIEF COMPLAINT: This 78-year-old Frisian [place] woman who was readmitted after being discharged from this hospital the other day with a chief complaint of fever and continuing altered mental status. The patient was admitted on 12/01/2018. At that time, no history could be obtained from the patient. She has a history of G-tube, septic shock, femoral central line, was on pressors. She was admitted for urinary tract infection and pneumonia, as well as pancytopenia. She does have a previous history of organic brain syndrome, hypertension, hyperlipidemia, anxiety, iron deficiency anemia, noninsulin-dependent diabetes mellitus, electrolyte imbalance, psychosis, dysphagia, constipation, GERD, thrombocytopenia, and history of deep venous thrombosis in the past. The patient was discharged on 12/13/2018. She did not have a CT scan of her brain on her last admission. The patient was then re-admitted today from the halfway again with altered mental status and fever. On admission, her CBC revealed a white count of 4700, hemoglobin of 9.7, her platelet count was 92,000. She had hypochromasia, anisocytosis on a peripheral smear. There is a significant left shift. Her chemistries revealed a sodium 147, chloride of 110, BUN of 28, with a creatinine of 0.9. Glucose is 251. Lactic acid was 1.70. Albumin was only 2.3. The rest of the liver functions are basically normal. The patient had a CT scan of the brain today, which was abnormal revealed a large area of low attenuation in the anterior right basal ganglia region with a slight mass effect with effacement of the adjacent frontal horn. There is no hemorrhage. She also had some lacunar infarcts in the bilateral basal ganglia as well as right side of the anni and right cerebellar hemisphere. The patient had a chest x-ray today, which revealed minimal if any right basilar atelectasis improved from the prior study. The patient on admission had no fever so far. Her diastolic blood pressures were low. I was asked to see the patient in neurologic consultation. PAST MEDICAL HISTORY/PAST MEDICAL ILLNESSES: See above. ALLERGIES: She has no known allergies. FAMILY HISTORY: Unable to obtain. SOCIAL HISTORY: She is in the halfway. PAST SURGICAL HISTORY: She had a PEG. REVIEW OF SYSTEMS: Unobtainable. PHYSICAL EXAMINATION: GENERAL: She is a well-developed, well-nourished appearing woman, lying in bed, stuporous and opens her eyes with pain. VITAL SIGNS: The blood pressure is 130/66, pulse oximetry is 100, temperature is 98.5 degrees, pulse rate 79 and regular. HEENT: Essentially could not be evaluated. She did have what appears to be bilateral cataracts. NECK: The neck was stiff in all directions. Carotids are +2. No bruits could be appreciated. LUNGS: The breath sounds are significantly decreased. CARDIOVASCULAR: PMI was not felt. JVP appeared to be flat. The patient's heart sounds were significantly decreased. ABDOMEN: The abdomen was basically scaphoid. There is no tenderness elicitable. No organomegaly was noted. EXTREMITIES: The peripheral pulses are +2 including dorsalis pedis pulses. NEUROLOGIC EXAMINATION: MENTAL STATUS: The patient is extremely somnolent when she awoke with her eyes open. There was no spontaneous speech. No response to her name. In fact, the patient is mute. She occasionally brush my arm away with the right hand. CRANIAL NERVE EXAMINATION: CRANIAL NERVE II: There is no threat on visual field testing. CRANIAL NERVES III, IV, AND : The eyes are in the midline. She did doll's to the right, but not to the left. The pupils are approximately 4.5 mm, mostly round with rather poor to the light response. CRANIAL NERVE V: Corneals appear to be intact bilaterally. CRANIAL NERVE VII: Appeared to be intact facial symmetry, otherwise hard to get her to grimace. CRANIAL NERVE VIII: Could not be tested. CRANIAL NERVES IX AND X: Could not be tested. The mouth could not be opened. CRANIAL NERVE XI: Could not be tested. CRANIAL NERVE XII: Could not be tested. MUSCLE EXAMINATION: She had increased tone bilaterally, mostly in the right upper extremity compared to the left. She moves the right upper extremity and right lower extremity in a purposeful way to pain, but not to left side. REFLEXES: +2 in the right upper extremity, +2 in the left upper extremity, trace to +1 at the knees, 0 at the ankles. She had a downgoing toe on the right, but a mute toe on the left on testing for Babinski response. SENSORY EXAMINATION: She reacted to deep pain bilaterally. Appeared to be fairly symmetrical. IMPRESSION: This patient has a subacute infarction involving the right basal ganglia with old lacunar strokes in the basal ganglia as well as in the anni. She also has what appears of an old subacute stroke in the distal portion of the right middle cerebral artery. The patient has multiinfarct dementia. She also probably has some metabolic encephalopathy related to the following. 1. Residual of the urinary tract infection. 2. Anemia. 3. Dehydration. As far as the workup for the strokes are concerned, given the fact of her age, her dementia, she is not a candidate for surgery, not a candidate for heparin, although she might have had an embolic stroke. It is in the right middle cerebral artery in the past. The patient had an EKG on 12/02/2018 admission, which was abnormal. Heart rate was [address]-T wave abnormality, but no evidence of atrial fibrillation. Therefore, in my opinion, what she really wanted to be more aggressive and we can place her on Plavix for 3 months and then stop since the combination of Plavix and aspirin has an increased incidents of central nervous system bleeding. PLAN: 1. I will speak about this case. 2. Plavix 75 mg a day. Thank you for this interesting case, Dr. Asencio. Gerry Durbin MD DR: ALBERTINA JOB#: [id number] CC:
[2018-12-15] VITALS (7 sets, daily range): BP systolic 129–144; BP diastolic 59–97
--- NOTE | 2018-12-15 | NUR ---
NURSE NOTES: Patient repositioned and provided oral care, low grade fever resolved. Cooling measures successful. BS noted to be 173, coverage provided. Patient IV lines remains intact and patent. Patient remains in 2 L NC with aoerosol therapy and saturating > 97%
[2018-12-15] MEDS: NovoLOG Insulin Flexpen SUBQ SCH ×5 (00:28→23:14)
--- NOTE | 2018-12-15 04:46 | History and Physical Report ---
DATE OF ADMISSION: 12/14/2018 HISTORY OF PRESENT ILLNESS: The patient is nonverbal. The patient was just discharged, came back approximately within 24 hours of discharge due to fever, altered mental status, lethargy. The patient's MRI also shows subacute infarct. ER doctor spoke with Dr. Durbin and he said that it is okay to admit the patient since the stroke is subacute and also he said that he will see the patient for neurological consult. The patient is nonverbal, cannot get any history from the patient. PAST MEDICAL HISTORY: Significant for dysphagia, hypertension, hyperlipidemia, NIDDM, hypertension, psychosis, constipation, CVA, pancytopenia. MEDICATIONS: Aspirin, Lipitor, clonidine, insulin, Seroquel, Senokot. ALLERGIES: No known allergies also. PAST SURGICAL HISTORY: PEG. FAMILY HISTORY: Unable to obtain. SOCIAL HISTORY: Unable to obtain. REVIEW OF SYSTEMS: Unable to obtain. PHYSICAL EXAMINATION: VITAL SIGNS: Temperature 98.9, pulse is 81, blood pressure 133/55. HEENT: PERRLA. CHEST: Bibasilar rales. CARDIOVASCULAR: Regular rate and rhythm. GASTROINTESTINAL: Soft, positive bowel sounds. G-tube site is intact. EXTREMITIES: No edema. The patient is lethargic. NEUROLOGIC: Does not follow neurological exam. LABORATORY DATA: WBC of 4.7, hemoglobin 9.7, and platelets of 65,000. Sodium 145, potassium 3.5, BUN of 28, creatinine 0.9, glucose 255. ASSESSMENT AND PLAN: Altered mental status. The imaging of the brain shows subacute infarct. The patient also has UTI, pancytopenia, NIDDM, lethargy, sepsis, pneumonia on the chest x-ray. I have asked Dr. Durbin, Dr. Aldana, Dr. Bergman, Dr. Gayle, Dr. Argueta, Dr. Tafoya, Dr. Shimon Card, Dr. Parekh to see the patient for the above-mentioned diagnoses and treatment. The patient is extremely ill . Yi Asencio M.D. DR: PEPPER JOB#: [id number] CC:
[2018-12-15 05:44] LABS: HEMATOCRIT 29.7 % (37.0-47.0); HEMOGLOBIN 9.3 G/DL (12.0-16.0); MEAN CORPUSCULAR VOLUME 99 FL (80-99); PLATELET COUNT 49 K/UL (150-450); RED BLOOD COUNT 2.99 M/UL (4.20-5.40); RED CELL DISTRIBUTION WIDTH 16.3 % (11.6-14.8); WHITE BLOOD COUNT 2.7 K/UL (4.8-10.8)
[2018-12-15 06:18] LABS: ANION GAP 3 mmol/L (5-15); BLOOD UREA NITROGEN 22 mg/dL (7-18); CALCIUM 9.1 MG/DL (8.5-10.1); CARBON DIOXIDE 32 MMOL/L (21-32); CHLORIDE 113 MMOL/L (98-107); CREATININE 0.7 MG/DL (0.55-1.30); PHOSPHORUS 2.7 MG/DL (2.5-4.9); POTASSIUM 3.6 MMOL/L (3.5-5.1); SODIUM 148 MMOL/L (136-145)
[2018-12-15] MEDS: Piperacillin/Tazobactam 3.375 GM in D5W 110 ML IVPB SCH ×3 (06:22→21:28)
--- NOTE | 2018-12-15 07:10 | NUR ---
NURSE NOTES: Report received from DONIS Alvarez. Pt is sleeping in bed. Non-verbal and does not follow commands. Sinus rhythm on coding spec. On N/C 2L. G tube in place receiving Glucerna 1.5 at 55cc/hr. No residual noted. Leiva in place draining to gravity. IV to left wrist G22 patent and asymptomatic. Bed in lowest position. Side rails up x3. Will resume plan of care.
--- NOTE | 2018-12-15 08:49 | NUR ---
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 CXR Impression: Left basilar pleural fluid and likely consolidation, appearing improved from prior study of 12/02/2018. IS:NS IV x2L PIPERACILLIN IVPB CLOPIDOGREL NITROGLYCERIN METOPROLOL SDU STATUS DC PLAN RETURN TO [facility]
[2018-12-15] MEDS: Metoprolol 25mg tab ORAL SCH ×2 (09:22→21:28)
--- NOTE | 2018-12-15 09:56 | Infectious Diseases Prog Note ---
Assessment/Plan Assessment/Plan A; Sepsis UTI with gram negatives Subacute CVA Dementia Nephrolithiasis Pancytopenia DM type 2 History of DVT s/p IVC filter P; Continue Zosyn Abdominal US will f/u cultures Subjective ROS Limited/Unobtainable: Yes Constitutional: Reports: fever, other - resolving Allergies: Coded Allergies: No Known Allergies (Unverified , 12/14/18) Objective Vital Signs Last 24 Hour Vital Signs Date Time Temp Pulse Resp B/P (MAP) Pulse Ox O2 Delivery O2 Flow Rate FiO2 12/15/18 09:22 68 142/67 12/15/18 07:53 108 16 Nasal Cannula 2.0 12/15/18 06:00 97.9 66 20 140/72 (94) 100 12/15/18 04:00 72 12/15/18 04:00 Nasal Cannula 2.0 12/15/18 04:00 97.9 66 20 140/72 (94) 100 12/15/18 00:00 Nasal Cannula 2.0 12/15/18 00:00 98.6 77 18 135/67 (89) 100 12/14/18 20:47 74 192/93 12/14/18 20:00 100.3 92 18 120/65 (83) 99 12/14/18 20:00 77 12/14/18 20:00 Nasal Cannula 2.0 12/14/18 17:59 130/66 12/14/18 16:00 80 12/14/18 16:00 98.5 79 14 130/66 (87) 100 12/14/18 14:20 98.2 78 14 127/64 (85) 100 12/14/18 14:20 Nasal Cannula 2.0 12/14/18 14:13 98.9 81 18 133/55 100 Nasal Cannula 2.0 12/14/18 12:54 98.9 81 18 133/55 100 Nasal Cannula 2.0 12/14/18 11:01 98.9 96 18 113/56 100 Nasal Cannula 2.0 12/14/18 10:49 98.9 12/14/18 09:53 119 18 Nasal Cannula 2.0 Height (Feet): 5 Height (Inches): 2.00 Weight (Pounds): 113 General Appearance: no acute distress HEENT: mucous membranes moist Respiratory/Chest: lungs clear, other - oxygen by nasal cannula Cardiovascular: normal rate Abdomen: soft, non tender, other - GT feeding Extremities: other - left leg edema Neurologic/Psychiatric: aphasia Microbiology Date/Time Source Procedure Growth Status 12/14/18 09:25 Nasal Nares Influenza Types A,B Antigen (KYLE) - Final Complete 12/14/18 09:25 Urine,Clean Catch Urine Culture - Preliminary Gram Negative Bacillus 1 Resulted Laboratory Tests Test 12/15/18 04:00 White Blood Count 2.7 K/UL (4.8-10.8) L Red Blood Count 2.99 M/UL (4.20-5.40) L Hemoglobin 9.3 G/DL (12.0-16.0) L Hematocrit 29.7 % (37.0-47.0) L Mean Corpuscular Volume 99 FL (80-99) Mean Corpuscular Hemoglobin 31.1 PG (27.0-31.0) H Mean Corpuscular Hemoglobin Concent 31.3 G/DL (32.0-36.0) L Red Cell Distribution Width 16.3 % (11.6-14.8) H Platelet Count 49 K/UL (150-450) L Mean Platelet Volume 8.9 FL (6.5-10.1) Neutrophils (%) (Auto) % (45.0-75.0) Lymphocytes (%) (Auto) % (20.0-45.0) Monocytes (%) (Auto) % (1.0-10.0) Eosinophils (%) (Auto) % (0.0-3.0) Basophils (%) (Auto) % (0.0-2.0) Differential Total Cells Counted 100 Neutrophils % (Manual) 72 % (45-75) Lymphocytes % (Manual) 18 % (20-45) L Monocytes % (Manual) 10 % (1-10) Eosinophils % (Manual) 0 % (0-3) Basophils % (Manual) 0 % (0-2) Band Neutrophils 0 % (0-8) Platelet Estimate Decreased L Platelet Morphology Normal Hypochromasia 1+ Anisocytosis 1+ Sodium Level 148 MMOL/L (136-145) H Potassium Level 3.6 MMOL/L (3.5-5.1) Chloride Level 113 MMOL/L (98-107) H Carbon Dioxide Level 32 MMOL/L (21-32) Anion Gap 3 mmol/L (5-15) L Blood Urea Nitrogen 22 mg/dL (7-18) H Creatinine 0.7 MG/DL (0.55-1.30) Estimat Glomerular Filtration Rate mL/min (>60) Glucose Level 127 MG/DL (74-106) #H Calcium Level 9.1 MG/DL (8.5-10.1) Phosphorus Level 2.7 MG/DL (2.5-4.9) Magnesium Level 2.0 MG/DL (1.8-2.4) Current Medications Medications (Trade) Dose Ordered Sig/Laure Route PRN Reason Start Time Stop Time Status Last Admin Dose Admin Acetaminophen (Tylenol) 650 mg Q4H PRN ORAL Mild Pain/Temp > 100.5 12/14/18 17:15 01/13/19 17:14 Albuterol/ Ipratropium (Albuterol/ Ipratropium) 3 ml Q4H PRN HHN Shortness of Breath 12/14/18 17:15 12/19/18 17:14 Clopidogrel Bisulfate (Plavix) 75 mg DAILY ORAL 12/15/18 09:00 01/14/19 08:59 Dextrose (Dextrose 50%) 25 ml Q30M PRN IV Hypoglycemia 12/14/18 17:15 01/13/19 17:14 Dextrose (Dextrose 50%) 50 ml Q30M PRN IV Hypoglycemia 12/14/18 17:15 01/13/19 17:14 Insulin Aspart (NovoLOG) EVERY 6 HOURS SUBQ 12/15/18 00:00 01/13/19 20:59 12/15/18 05:18 Metoprolol Tartrate (Lopressor) 25 mg Q12HR ORAL 12/14/18 21:00 01/13/19 20:59 12/15/18 09:22 Nitroglycerin (Ntg) 1 patch Q24H TDERMAL 12/14/18 17:15 01/13/19 17:14 12/14/18 17:59 Ondansetron HCl (Zofran ODT) 4 mg Q4HR ORAL 12/14/18 21:00 01/13/19 20:59 12/15/18 09:21 Piperacillin Sod/ Tazobactam Sod 3.375 gm/Dextrose 110 ml @ 27.5 mls/hr EVERY 8 HOURS IVPB 12/14/18 22:00 12/19/18 21:59 12/15/18 06:22 Shimon Card MD Dec 15, 2018 09:56
--- NOTE | 2018-12-15 10:55 | GI Progress Note ---
Assessment/Plan Problems: (1) Altered mental status ICD Codes: R41.82 - Altered mental status, unspecified SNOMED: 288649612 (2) Anemia ICD Codes: D64.9 - Anemia, unspecified SNOMED: 795100399 (3) Thrombocytopenia ICD Codes: D69.6 - Thrombocytopenia, unspecified SNOMED: 701241590 (4) Malnutrition ICD Codes: E46 - Unspecified protein-calorie malnutrition SNOMED: 37411360 (5) Dehydration ICD Codes: E86.0 - Dehydration SNOMED: 44309929 Status: unchanged Status Narrative Discussed with Dr. Argueta Assessment/Plan GTF per RD prn transfusions ppi reglan if needed abx per ID supportive care fu labs The patient was seen and examined at bedside and all new and available data was reviewed in the patients chart. I agree with the above findings, impression and plan. (Patient seen earlier today. Signature stamp does not reflect patient encounter time.). - Edwardo Argueta MD Subjective Subjective limited Objective Last 24 Hour Vital Signs Date Time Temp Pulse Resp B/P (MAP) Pulse Ox O2 Delivery O2 Flow Rate FiO2 12/15/18 09:22 68 142/67 12/15/18 08:00 97.9 68 12 142/67 (92) 100 12/15/18 08:00 Nasal Cannula 2.0 12/15/18 07:53 108 16 Nasal Cannula 2.0 12/15/18 07:31 63 12/15/18 06:00 97.9 66 20 140/72 (94) 100 12/15/18 04:00 72 12/15/18 04:00 Nasal Cannula 2.0 12/15/18 04:00 97.9 66 20 140/72 (94) 100 12/15/18 00:00 Nasal Cannula 2.0 12/15/18 00:00 98.6 77 18 135/67 (89) 100 12/14/18 20:47 74 192/93 12/14/18 20:00 100.3 92 18 120/65 (83) 99 12/14/18 20:00 77 12/14/18 20:00 Nasal Cannula 2.0 12/14/18 17:59 130/66 12/14/18 16:00 80 12/14/18 16:00 98.5 79 14 130/66 (87) 100 12/14/18 14:20 98.2 78 14 127/64 (85) 100 12/14/18 14:20 Nasal Cannula 2.0 12/14/18 14:13 98.9 81 18 133/55 100 Nasal Cannula 2.0 12/14/18 12:54 98.9 81 18 133/55 100 Nasal Cannula 2.0 12/14/18 11:01 98.9 96 18 113/56 100 Nasal Cannula 2.0 Intake and Output 12/14/18 12/15/18 19:00 07:00 Intake Total 0 ml 485 ml Output Total 800 ml 800 ml Balance -800 ml -315 ml Intake Oral 0 ml Free Water 50 ml Tube Feeding 435 ml Output Urine Total 800 ml 800 ml # Bowel Movements 1 Laboratory Tests Test 12/15/18 04:00 White Blood Count 2.7 K/UL (4.8-10.8) L Red Blood Count 2.99 M/UL (4.20-5.40) L Hemoglobin 9.3 G/DL (12.0-16.0) L Hematocrit 29.7 % (37.0-47.0) L Mean Corpuscular Volume 99 FL (80-99) Mean Corpuscular Hemoglobin 31.1 PG (27.0-31.0) H Mean Corpuscular Hemoglobin Concent 31.3 G/DL (32.0-36.0) L Red Cell Distribution Width 16.3 % (11.6-14.8) H Platelet Count 49 K/UL (150-450) L Mean Platelet Volume 8.9 FL (6.5-10.1) Neutrophils (%) (Auto) % (45.0-75.0) Lymphocytes (%) (Auto) % (20.0-45.0) Monocytes (%) (Auto) % (1.0-10.0) Eosinophils (%) (Auto) % (0.0-3.0) Basophils (%) (Auto) % (0.0-2.0) Differential Total Cells Counted 100 Neutrophils % (Manual) 72 % (45-75) Lymphocytes % (Manual) 18 % (20-45) L Monocytes % (Manual) 10 % (1-10) Eosinophils % (Manual) 0 % (0-3) Basophils % (Manual) 0 % (0-2) Band Neutrophils 0 % (0-8) Platelet Estimate Decreased L Platelet Morphology Normal Hypochromasia 1+ Anisocytosis 1+ Sodium Level 148 MMOL/L (136-145) H Potassium Level 3.6 MMOL/L (3.5-5.1) Chloride Level 113 MMOL/L (98-107) H Carbon Dioxide Level 32 MMOL/L (21-32) Anion Gap 3 mmol/L (5-15) L Blood Urea Nitrogen 22 mg/dL (7-18) H Creatinine 0.7 MG/DL (0.55-1.30) Estimat Glomerular Filtration Rate mL/min (>60) Glucose Level 127 MG/DL (74-106) #H Calcium Level 9.1 MG/DL (8.5-10.1) Phosphorus Level 2.7 MG/DL (2.5-4.9) Magnesium Level 2.0 MG/DL (1.8-2.4) Height (Feet): 5 Height (Inches): 2.00 Weight (Pounds): 113 General Appearance: WD/WN, no apparent distress, alert Cardiovascular: normal rate Respiratory/Chest: normal breath sounds, no respiratory distress Abdominal Exam: normal bowel sounds, non tender, soft, GT site - Clean dry and intact Extremities: non-tender Aidee Powell NP Dec 15, 2018 10:55
--- NOTE | 2018-12-15 11:04 | NUR ---
RD ASSESSMENT & RECOMMENDATIONS SEE CARE ACTIVITY FOR COMPLETE ASSESSMENT DAILY ESTIMATED NEEDS: Needs based on Wound, Pulmonary / 50kg 30-35 kcals/kg 5470-4647 total kcals 1.25-1.5 g protein/kg 63-75 g total protein 25-30 mL/kg 1890-7710 total fluid mLs NUTRITION DIAGNOSIS: 1) Increased kcal and protein needs R/T wound healing as evidenced by pt w/ admitted w/ partial thickness pressure injury @ sacrum. 2) Swallowing difficulty R/T dysphagia as evidenced by pt is PEG dep. 3) Altered nutrition related lab values R/T diabetes as evidenced by elev BGs (127-251),Uglu 3+, and POC glu (173) CURRENT TF:Glucerna 1.2 @55ml/hr x24 hrs ENTERAL NUTRITION RECOMMENDATIONS: Glucerna 1.2 @55ml/hr x24 hrs to provide 1320ml, 1584 kcal, 79g prot, 1063ml free fluid * Maintain current TF * Flush per MD/ HOB over 30 degrees ADDITIONAL RECOMMENDATIONS: * Per SNF: ht=62", wt=98lbs on 11/16/18 --->> Recalibrate bed scale wt, rec weekly wt monitoring * Wound healing: Add Timbo 1pkt BID (f/up w/ WC eval) * Check lytes daily, replete as needed * Monitor BGs, consider long acting insulin for improved BG control . .
--- NOTE | 2018-12-15 11:22 | Consultation ---
Consult Note Assessment/Plan DICT [id number] Foreign Parekh MD Dec 15, 2018 11:22
--- NOTE | 2018-12-15 14:31 | Consultation ---
DATE OF CONSULTATION: 12/15/2018 ENDOCRIONOLOGY CONSULTATION: CONSULTING PHYSICIAN: Enrique Tafoya M.D. REFERRING PHYSICIAN: Yi Asencio M.D. REASON FOR CONSULTATION: Diabetes management. HISTORY OF PRESENT ILLNESS: It is important to note that history was obtained from the review of the chart and medical records since the patient is unable to provide any meaningful history. The patient is a 78-year-old female who was recently hospitalized at [facility] came back with fever and altered mental status. MRI of the brain showed subacute infarct. Admitted for further workup and treatment. I was called to manage diabetes. PAST MEDICAL HISTORY: 1. Dysphagia, status post PEG. 2. Hypertension. 3. Dyslipidemia. 4. Diabetes. 5. Hypertension. 6. Psychosis. 7. Constipation. 8. Pancytopenia. MEDICATIONS: Reviewed and reconciled. PAST SURGICAL HISTORY: PEG placement. FAMILY HISTORY: Noncontributory. SOCIAL HISTORY: No smoking, alcohol, or drug use. REVIEW OF SYSTEMS: Unobtainable. ALLERGIES TO MEDICATIONS: None. LABORATORY DATA: WBC 2.7, hemoglobin 9.3, hematocrit 29.7, platelets of 49. Sodium 140, potassium 3.6, chloride 113, bicarb 32, BUN 22, creatinine 0.7, glucose 127. BNP 1134. PHYSICAL EXAMINATION: VITAL SIGNS: Blood pressure 140/72, pulse 66, temperature 97.9, respiratory rate 20. HEENT: Pupils are equal and reactive to light. Sclerae are anicteric. NECK: No JVD. HEART: Regular. LUNGS: Clear. ABDOMEN: Positive bowel sounds. G-tube noted. EXTREMITIES: Positive for edema. DIAGNOSES: 1. Altered mental status. 2. CVA. 3. Diabetes, out of control. PLAN: 1. Blood glucose monitoring every 6 hours. 2. NovoLog insulin coverage every 6 hours. 3. Tube feed as tolerated. 4. I will follow the patient during hospital stay. We will adjust insulin order according to blood glucose values. Thank you, Dr. Asencio, for the courtesy of this consultation. Enrique Tafoya M.D. DR: DONIS/MARCE JOB#: [id number] CC:
--- NOTE | 2018-12-15 14:33 | NUR ---
NURSE NOTES: Abdominal US is being done at bedside.
--- NOTE | 2018-12-15 15:14 | Diagnostic Imaging Report ---
Indication: Vomiting, abnormal renal function tests, history of nephrolithiasis, urinary tract infection Technique: Neri-scale and duplex images of the upper abdomen were obtained. Doppler interrogation of the pancreatic and hepatic vessels Comparison: 07/27/2018. Reference also made to CT scan dated 07/29/2018 Findings: Exam is somewhat limited, as sonographic access is limited by gastrostomy bandages. Gallbladder is unremarkable, without stones, wall thickening, nor pericholecystic fluid. Sonographic Lee's sign could not be assessed, due to patient inability to communicate such. Common bile duct measures for mm in diameter. No intrahepatic biliary ductal dilatation. Liver demonstrates equivocally slightly coarsened echogenicity. No surface nodularity. No focal abnormality. Portal vein and hepatic veins are patent. Pancreas is unremarkable. The spleen is enlarged, measures 15.2 cm long axis dimension. Left kidney measures 9.9 cm in length. Right kidney measures 10 cm length. Both kidneys demonstrate normal echogenicity. There is no hydronephrosis on the right. There is mild left hydronephrosis. This was also demonstrated previously. The left kidney demonstrates lower pole echogenic shadowing foci, largest measuring up to 12 mm in diameter. The right kidney also demonstrates a small echogenic shadowing focus in the right renal sinus. This measures 4 mm diameter. The bladder is empty, contains a Leiva catheter. Non-aneurysmal abdominal aorta . Impression: Left hydronephrosis, also previously described. Note that CT scan of 07/29/2018 demonstrated an obstructive calculus in the left mid ureter. Correlate with any history of interim therapy, consider CT to assess if stone is still present. Left lower pole intrarenal calculus demonstrated. This measures larger than that seen on prior CT scan. Nonobstructive right intrarenal calculus, also described on prior CT scan. Empty bladder with a Leiva catheter. Negative for gallstones or dilated ducts Equivocally slightly coarsened hepatic echogenicity, could indicate hepatocellular disease Splenomegaly, not evident previously
--- NOTE | 2018-12-15 16:31 | Consultation ---
DATE OF CONSULTATION: 12/15/2018 PULMONARY CONSULTATION CONSULTING PHYSICIAN: Foreign Parekh M.D. REFERRING PHYSICIAN: Yi Asencio M.D. REASON FOR CONSULTATION: Hypoxia. HISTORY OF PRESENT ILLNESS: The patient is a very unfortunate, nonverbal 78-year-old female with a history of prior CVA, encephalopathy, dysphagia, G-tube, hypertension, diabetes, and pancytopenia, recently discharged from the hospital, now readmitted with UTI and urosepsis. No history is obtainable from the patient. The patient is afebrile. Her vital signs are stable and is saturating well on two liters. Her chest x-ray compared to prior shows decreased left basilar consolidation and pleural effusion. She also has a history of DVT, status post IVC filter. PAST MEDICAL HISTORY: 1. Encephalopathy. 2. CVA. 3. DVT, status post IVC filter. 4. Pancytopenia. 5. Hypertension. 6. Hyperlipidemia. 7. Diabetes. 8. Encephalopathy. PAST SURGICAL HISTORY: What is known is IVC filter and G-tube. ALLERGIES: No known drug allergies. MEDICATIONS: Prior to admission medications, reviewed. Current medications, reviewed. SOCIAL HISTORY: No known tobacco, alcohol, or drug use. FAMILY HISTORY: Noncontributory. REVIEW OF SYSTEMS: Unobtainable. PHYSICAL EXAMINATION: VITAL SIGNS: Temperature 97.9, pulse , blood pressure 142/67, and respiratory rate 12. Saturating 100% on 2 L. GENERAL: She is an elderly demented female, in no acute distress. Nonverbal. HEENT: Normocephalic and atraumatic. Oropharynx is clear. Moist mucous membranes. NECK: Supple without lymphadenopathy. CHEST: Clear, but rales at the bases. HEART: Regular rate and rhythm. ABDOMEN: Soft, nontender, and nondistended. EXTREMITIES: No cyanosis, clubbing or edema. ANCILLARY DATA: White count 2.7, hemoglobin 9.3, and platelet count 49. Sodium 140, potassium 3.6, chloride 113, bicarb 32, BUN 22, and creatinine 0.7. Glucose 127. Calcium 9.1. Phosphorus 2.7. Magnesium 2.0. Total bilirubin 0.9. AST 32, ALT 17, and alkaline phosphatase 71. BNP 1134. Albumin 2.3. Urinalysis, positive nitrites, 4+ blood, and 3+ leukocyte esterase. Chest x-ray, decreased left basilar infiltrate and pleural effusion. CT of the head shows subacute nonhemorrhagic infarct of the right occipital temporal, posterior parietal lobes with local mass effect, MCA CVA. Subacute infarct in the basal ganglia on the right. Multiple other infarcts. ASSESSMENT: The patient is a 78-year-old female with a history of organic brain syndrome, CVA, encephalopathy, nonverbal at baseline, dementia, status post G-tube, hypertension, hyperlipidemia, diabetes, recent pneumonia and hospitalization, now presenting with urinary tract infection and urosepsis. PROBLEM LIST: 1. Urinary tract infection, urosepsis. 2. Recent pneumonia. 3. Pleural effusion. 4. Organic brain syndrome. 5. Subacute CVA. 6. Hypertension, hyperlipidemia, diabetes, and GERD. 7. Dysphagia, status post G-tube. 8. Pancytopenia. TREATMENT PLAN: 1. Optimize pulmonary hygiene/mobilize as tolerated. 2. PRN bronchodilators. 3. Titrate on FiO2 to keep saturations greater than 90%. 4. Antibiotics per ID. 5. G-tube feeds. 6. DVT prophylaxis. The patient is status post IVC filter. Dr. Asencio, thank you for allowing me to assist in the care of your patient. If I may be of any assistance in the future, please do not hesitate to ask. Foreign Parekh M.D. DR: AUNDREA JOB#: [id number] CC:
--- NOTE | 2018-12-15 17:39 | Consultation ---
History of Present Illness General Chief Complaint: Altered Level of Consciousness Present Illness Allergies: Coded Allergies: No Known Allergies (Unverified , 12/14/18) Medication History Scheduled Amlodipine Besylate* (Amlodipine Besylate*), 10 MG ORAL DAILY, (Reported) Aspirin Ec* (Aspirin Ec*), 81 MG ORAL DAILY, (Reported) Atorvastatin Calcium* (Atorvastatin Calcium*), 20 MG ORAL BEDTIME, (Reported) Clonazepam* (Klonopin*), 0.5 MG ORAL BID, (Reported) Metoprolol Tartrate* (Metoprolol Tartrate*), 25 MG ORAL EVERY 12 HOURS, ( Reported) Multivit-Min/Iron Fum/Folic AC (Vkmpr-Gyvyvzw-Rkjgxhbn Tablet), 1 EACH PO DAILY, (Reported) Potassium Chloride* (K-Dur*), 20 MEQ ORAL DAILY, (Reported) Quetiapine Fumarate* (Seroquel*), 25 MG ORAL BID, (Reported) Sennosides (Senna), 8.6 MG PO QHS, (Reported) Scheduled PRN Acetaminophen* (Acetaminophen 325MG Tablet*), 650 MG ORAL Q4H PRN for Fever/ Headache/Mild Pain, (Reported) Acetaminophen* (Acetaminophen*), 325 MG ORAL Q4HR PRN for Mild Pain/Temp > 100.5 , (Reported) Albuterol Sulfate* (Albuterol Sulfate Hhn*), 3 ML INH Q4H PRN for Shortness of Breath, (Reported) Clonidine Hcl* (Catapres*), 0.1 MG ORAL EVERY 4 HOURS PRN for For High Blood Pressure, (Reported) Magnesium Hydroxide* (Milk Of Magnesia*), 30 ML ORAL DAILY PRN for Constipation, (Reported) Ondansetron* (Zofran*), 4 MG ORAL Q4HR PRN for Nausea & Vomiting, (Reported) [mylanta max strength], 15 ML PO Q6HR PRN for dyspepsia, (Reported) Miscellaneous Medications Ferrous Sulfate (Ferrousul), 325 MG GT, (Reported) Insulin Lispro (Humalog), 0 SUBQ, (Reported) Nitroglycerin (Nitroglycerin), 0.4 MG PO, (Reported) Nitroglycerin (Nitroglycerin Patch), 1 EACH TD, (Reported) [lispro ss], (Reported) Patient History Healthcare decision maker Resuscitation status Full Code Advanced Directive on File Physical Exam Last 24 Hour Vital Signs Date Time Temp Pulse Resp B/P (MAP) Pulse Ox O2 Delivery O2 Flow Rate FiO2 12/15/18 16:00 98.4 54 16 144/64 (90) 100 12/15/18 16:00 Nasal Cannula 2.0 12/15/18 12:00 98.2 60 14 133/97 (109) 100 12/15/18 12:00 Nasal Cannula 2.0 12/15/18 11:40 62 12/15/18 09:22 68 142/67 12/15/18 08:00 97.9 68 12 142/67 (92) 100 12/15/18 08:00 Nasal Cannula 2.0 12/15/18 07:53 108 16 Nasal Cannula 2.0 12/15/18 07:31 63 12/15/18 06:00 97.9 66 20 140/72 (94) 100 12/15/18 04:00 72 12/15/18 04:00 Nasal Cannula 2.0 12/15/18 04:00 97.9 66 20 140/72 (94) 100 12/15/18 00:00 Nasal Cannula 2.0 12/15/18 00:00 98.6 77 18 135/67 (89) 100 12/14/18 20:47 74 192/93 12/14/18 20:00 100.3 92 18 120/65 (83) 99 12/14/18 20:00 77 12/14/18 20:00 Nasal Cannula 2.0 12/14/18 17:59 130/66 Intake and Output 12/14/18 12/15/18 19:00 07:00 Intake Total 0 ml 485 ml Output Total 800 ml 800 ml Balance -800 ml -315 ml Intake Oral 0 ml Free Water 50 ml Tube Feeding 435 ml Output Urine Total 800 ml 800 ml # Bowel Movements 1 Laboratory Tests Test 12/15/18 04:00 White Blood Count 2.7 K/UL (4.8-10.8) L Red Blood Count 2.99 M/UL (4.20-5.40) L Hemoglobin 9.3 G/DL (12.0-16.0) L Hematocrit 29.7 % (37.0-47.0) L Mean Corpuscular Volume 99 FL (80-99) Mean Corpuscular Hemoglobin 31.1 PG (27.0-31.0) H Mean Corpuscular Hemoglobin Concent 31.3 G/DL (32.0-36.0) L Red Cell Distribution Width 16.3 % (11.6-14.8) H Platelet Count 49 K/UL (150-450) L Mean Platelet Volume 8.9 FL (6.5-10.1) Neutrophils (%) (Auto) % (45.0-75.0) Lymphocytes (%) (Auto) % (20.0-45.0) Monocytes (%) (Auto) % (1.0-10.0) Eosinophils (%) (Auto) % (0.0-3.0) Basophils (%) (Auto) % (0.0-2.0) Differential Total Cells Counted 100 Neutrophils % (Manual) 72 % (45-75) Lymphocytes % (Manual) 18 % (20-45) L Monocytes % (Manual) 10 % (1-10) Eosinophils % (Manual) 0 % (0-3) Basophils % (Manual) 0 % (0-2) Band Neutrophils 0 % (0-8) Platelet Estimate Decreased L Platelet Morphology Normal Hypochromasia 1+ Anisocytosis 1+ Sodium Level 148 MMOL/L (136-145) H Potassium Level 3.6 MMOL/L (3.5-5.1) Chloride Level 113 MMOL/L (98-107) H Carbon Dioxide Level 32 MMOL/L (21-32) Anion Gap 3 mmol/L (5-15) L Blood Urea Nitrogen 22 mg/dL (7-18) H Creatinine 0.7 MG/DL (0.55-1.30) Estimat Glomerular Filtration Rate mL/min (>60) Glucose Level 127 MG/DL (74-106) #H Calcium Level 9.1 MG/DL (8.5-10.1) Phosphorus Level 2.7 MG/DL (2.5-4.9) Magnesium Level 2.0 MG/DL (1.8-2.4) Height (Feet): 5 Height (Inches): 2.00 Weight (Pounds): 113 Medications Current Medications Medications (Trade) Dose Ordered Sig/Laure Route PRN Reason Start Time Stop Time Status Last Admin Dose Admin Acetaminophen (Tylenol) 650 mg Q4H PRN ORAL Mild Pain/Temp > 100.5 12/14/18 17:15 01/13/19 17:14 Albuterol/ Ipratropium (Albuterol/ Ipratropium) 3 ml Q4H PRN HHN Shortness of Breath 12/14/18 17:15 12/19/18 17:14 Clopidogrel Bisulfate (Plavix) 75 mg DAILY ORAL 12/15/18 09:00 01/14/19 08:59 Dextrose (Dextrose 50%) 25 ml Q30M PRN IV Hypoglycemia 12/14/18 17:15 01/13/19 17:14 Dextrose (Dextrose 50%) 50 ml Q30M PRN IV Hypoglycemia 12/14/18 17:15 01/13/19 17:14 Insulin Aspart (NovoLOG) EVERY 6 HOURS SUBQ 12/15/18 00:00 01/13/19 20:59 12/15/18 12:00 Metoprolol Tartrate (Lopressor) 25 mg Q12HR ORAL 12/14/18 21:00 01/13/19 20:59 12/15/18 09:22 Nitroglycerin (Ntg) 1 patch Q24H TDERMAL 12/14/18 17:15 01/13/19 17:14 12/14/18 17:59 Ondansetron HCl (Zofran ODT) 4 mg Q4HR ORAL 12/14/18 21:00 01/13/19 20:59 12/15/18 09:21 Piperacillin Sod/ Tazobactam Sod 3.375 gm/Dextrose 110 ml @ 27.5 mls/hr EVERY 8 HOURS IVPB 12/14/18 22:00 12/19/18 21:59 12/15/18 14:05 Assessment/Plan Assessment/Plan Hematology/Oncology Consultation Requesting MD: Yi Asencio M.D. Date of Service: 12/15/18 Reason for consultation: Leukopenia, Anemia and Thrombocytopenia HISTORY OF PRESENT ILLNESS: This is a 78-year-old female with a history of prior CVA, encephalopathy, dysphagia, G-tube, hypertension, diabetes, and pancytopenia, recently discharged from the hospital, now readmitted with UTI and urosepsis. The patient is afebrile. Her vital signs are stable and is saturating well on two liters. Her chest x-ray compared to prior shows decreased left basilar consolidation and pleural effusion. She also has a history of DVT, status post IVC filter. Hematology/Oncology was consulted for Leukopenia, Anemia and Thrombocytopenia. White count 2.7, hemoglobin 9.3, and platelet count 49. PAST MEDICAL HISTORY: Encephalopathy, CVA, DVT, status post IVC filter, Pancytopenia, Hypertension, Hyperlipidemia, Diabetes, Encephalopathy. PAST SURGICAL HISTORY: What is known is IVC filter and G-tube. ALLERGIES: No known drug allergies. MEDICATIONS: Prior to admission medications, reviewed. Current medications, reviewed. SOCIAL HISTORY: No known tobacco, alcohol, or drug use. FAMILY HISTORY: Noncontributory. REVIEW OF SYSTEMS: Unobtainable. PHYSICAL EXAMINATION: VITAL SIGNS: Temperature 97.9, pulse, blood pressure 142/67, and respiratory rate 12. Saturating 100% on 2 L. GENERAL: She is an elderly demented female, in no acute distress. Nonverbal. HEENT: Normocephalic and atraumatic. Oropharynx is clear. Moist mucous membranes. NECK: Supple without lymphadenopathy. CHEST: Clear, but rales at the bases. HEART: Regular rate and rhythm. ABDOMEN: Soft, nontender, and nondistended. ++ peg EXTREMITIES: No cyanosis, clubbing or edema. Labs: White count 2.7, hemoglobin 9.3, and platelet count 49. Assessment/Plan: # Thrombocytopenia - potential causes multifactorial, evaluate liver and viral etiologies to begin, also could be related to underlying medications patient has received. --> Hep panel and HIV negative --> US abd to evaluate for cirrhosis and hsm reviewed --> Peripheral smear ordered to evaluate for blasts /schistocytes --> abx and other meds have been reviewed --> ok for ppx if plt >50k w/ either heparin or lovenox --> Transfuse if Plt < 20k and fever, or if Plt < 10k without fever # Pancytopenia, likely related to septicemia, appears new baseline 50-70k, several causes possible including viral, medication or intrabone marrow related. --> Cont to monitor plt count for improvement --> US abd: Mild left hydronephrosis. Possible left renal calyceal calculi. Negative for gallstones or dilated ducts Debris noted within the bladder --> Hep panel and HIV are both negative --> given extremely poor condition do not recommend a bone marrow biopsy, have discussed with family 08/01 with --> will rediscuss once sepsis resolves --> transfuse if plt <20k # Anemia of chronic disease. Multifactorial. Since admission Hgb has consistently remained between 8-9. --> Cont to monitor for stability --> Hgb goal above 7. Transfuse prn. --> IV iron completed prior admission and feritin is elevated # DVT of the left leg s/p IVC filter in 07/2018-- superficial femoral vein which is a deep vein, new onset, has not had these symptoms before. Lower hgb and plts --> given decreased h/h, low thrombocytopenia, do not recommend anticoag --> appreciate Dr. Parekh and Mariam arias from prior admission --> smear reviewed # Dehydration. IVF has been administered --> improved # DM OOC --> A1C goal <7 --> Cont on insulin # Bacteremia/prior UTI. --> ID is following. Appreciate recs. --> Pt on IV abx. --> Cultures surveillance as per id # PEG placement 08/04. Greatly appreciate consultation! Dewayne Gayle MD Dec 15, 2018 17:39
[2018-12-15] MEDS: Nitroglycerin Patch 0.4mg TDERMAL SCH (18:02)
--- NOTE | 2018-12-15 19:15 | NUR ---
NURSE NOTES: Received report from Elvi RN, pt. in bed awake- opens eyes- non-verbal. No signs or symptoms of acute cardiac or respiratory distress noted. bed in lowest position and call light within easy reach, bed alarm on, side rails x's3 and safety brakes engaged, pt. appears to be sating well on 2L NC at 98%- no distress noted. Glucerna 1.2 running at 55cc/hr- no residual noted. Leiva intact and draining to gravity, dressings dry and intact, Left wrist 22G IV intact and patent, safety measures continued, comfort measures provided. will continue with plan of care.
--- NOTE | 2018-12-15 19:36 | NUR ---
HAND-OFF: Report given to DONIS Dang.
--- NOTE | 2018-12-15 20:42 | Cardiology Progress Note ---
Assessment/Plan Assessment/Plan The patient is seen and examined, full consult note will be dictated. Objective Last 24 Hour Vital Signs Date Time Temp Pulse Resp B/P (MAP) Pulse Ox O2 Delivery O2 Flow Rate FiO2 12/15/18 19:17 61 16 Nasal Cannula 2.0 28 12/15/18 19:17 Nasal Cannula 2.0 28 12/15/18 19:17 100 Nasal Cannula 2.0 28 12/15/18 18:02 144/64 12/15/18 16:00 98.4 54 16 144/64 (90) 100 12/15/18 16:00 Nasal Cannula 2.0 12/15/18 15:22 55 12/15/18 12:00 98.2 60 14 133/97 (109) 100 12/15/18 12:00 Nasal Cannula 2.0 12/15/18 11:40 62 12/15/18 09:22 68 142/67 12/15/18 08:00 97.9 68 12 142/67 (92) 100 12/15/18 08:00 Nasal Cannula 2.0 12/15/18 07:53 108 16 Nasal Cannula 2.0 12/15/18 07:31 63 12/15/18 06:00 97.9 66 20 140/72 (94) 100 12/15/18 04:00 72 12/15/18 04:00 Nasal Cannula 2.0 12/15/18 04:00 97.9 66 20 140/72 (94) 100 12/15/18 00:00 Nasal Cannula 2.0 12/15/18 00:00 98.6 77 18 135/67 (89) 100 12/14/18 20:47 74 192/93 Intake and Output 12/14/18 12/15/18 18:59 06:59 Intake Total 0 ml 485 ml Output Total 800 ml 800 ml Balance -800 ml -315 ml Intake Oral 0 ml Free Water 50 ml Tube Feeding 435 ml Output Urine Total 800 ml 800 ml # Bowel Movements 1 Laboratory Tests Test 12/15/18 04:00 White Blood Count 2.7 K/UL (4.8-10.8) L Red Blood Count 2.99 M/UL (4.20-5.40) L Hemoglobin 9.3 G/DL (12.0-16.0) L Hematocrit 29.7 % (37.0-47.0) L Mean Corpuscular Volume 99 FL (80-99) Mean Corpuscular Hemoglobin 31.1 PG (27.0-31.0) H Mean Corpuscular Hemoglobin Concent 31.3 G/DL (32.0-36.0) L Red Cell Distribution Width 16.3 % (11.6-14.8) H Platelet Count 49 K/UL (150-450) L Mean Platelet Volume 8.9 FL (6.5-10.1) Neutrophils (%) (Auto) % (45.0-75.0) Lymphocytes (%) (Auto) % (20.0-45.0) Monocytes (%) (Auto) % (1.0-10.0) Eosinophils (%) (Auto) % (0.0-3.0) Basophils (%) (Auto) % (0.0-2.0) Differential Total Cells Counted 100 Neutrophils % (Manual) 72 % (45-75) Lymphocytes % (Manual) 18 % (20-45) L Monocytes % (Manual) 10 % (1-10) Eosinophils % (Manual) 0 % (0-3) Basophils % (Manual) 0 % (0-2) Band Neutrophils 0 % (0-8) Platelet Estimate Decreased L Platelet Morphology Normal Hypochromasia 1+ Anisocytosis 1+ Sodium Level 148 MMOL/L (136-145) H Potassium Level 3.6 MMOL/L (3.5-5.1) Chloride Level 113 MMOL/L (98-107) H Carbon Dioxide Level 32 MMOL/L (21-32) Anion Gap 3 mmol/L (5-15) L Blood Urea Nitrogen 22 mg/dL (7-18) H Creatinine 0.7 MG/DL (0.55-1.30) Estimat Glomerular Filtration Rate mL/min (>60) Glucose Level 127 MG/DL (74-106) #H Calcium Level 9.1 MG/DL (8.5-10.1) Phosphorus Level 2.7 MG/DL (2.5-4.9) Magnesium Level 2.0 MG/DL (1.8-2.4) Microbiology Date/Time Source Procedure Growth Status 12/14/18 09:25 Nasal Nares Influenza Types A,B Antigen (KYLE) - Final Complete 12/14/18 09:25 Urine,Clean Catch Urine Culture - Preliminary Gram Negative Bacillus 1 Resulted Deepak Aldana MD Dec 15, 2018 20:42
--- NOTE | 2018-12-15 22:02 | General Progress Note ---
Assessment/Plan Problem List: (1) Dementia with behavioral disturbance ICD Codes: F03.91 - Unspecified dementia with behavioral disturbance SNOMED: 6998098290349 (2) Fever ICD Codes: R50.9 - Fever, unspecified SNOMED: 237537325 (3) Dehydration ICD Codes: E86.0 - Dehydration SNOMED: 51215057 (4) Anemia ICD Codes: D64.9 - Anemia, unspecified SNOMED: 712522304 (5) Thrombocytopenia ICD Codes: D69.6 - Thrombocytopenia, unspecified SNOMED: 129661733 (6) CVA (cerebral vascular accident) ICD Codes: I63.9 - Cerebral infarction, unspecified SNOMED: 142127563 Qualifiers: Qualified Codes: I63.9 - Cerebral infarction, unspecified (7) Elevated troponin I level ICD Codes: R74.8 - Abnormal levels of other serum enzymes SNOMED: 416334103 (8) Diabetic nephropathy 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 SNOMED: 016449638 (9) Feeding by G-tube ICD Codes: Z93.1 - Gastrostomy status SNOMED: 584375010, 674689723, 714292831 Status: unchanged Assessment/Plan peg ams lethargic sepsis pna subacute cva pancytopenia abx per id reviewd chart and labs Subjective ROS Limited/Unobtainable: Yes Allergies: Coded Allergies: No Known Allergies (Unverified , 12/14/18) Objective Last 24 Hour Vital Signs Date Time Temp Pulse Resp B/P (MAP) Pulse Ox O2 Delivery O2 Flow Rate FiO2 12/15/18 21:28 66 129/69 12/15/18 19:17 61 16 Nasal Cannula 2.0 28 12/15/18 19:17 Nasal Cannula 2.0 28 12/15/18 19:17 100 Nasal Cannula 2.0 28 12/15/18 18:02 144/64 12/15/18 16:00 98.4 54 16 144/64 (90) 100 12/15/18 16:00 Nasal Cannula 2.0 12/15/18 15:22 55 12/15/18 12:00 98.2 60 14 133/97 (109) 100 12/15/18 12:00 Nasal Cannula 2.0 12/15/18 11:40 62 12/15/18 09:22 68 142/67 12/15/18 08:00 97.9 68 12 142/67 (92) 100 12/15/18 08:00 Nasal Cannula 2.0 12/15/18 07:53 108 16 Nasal Cannula 2.0 12/15/18 07:31 63 12/15/18 06:00 97.9 66 20 140/72 (94) 100 12/15/18 04:00 72 12/15/18 04:00 Nasal Cannula 2.0 12/15/18 04:00 97.9 66 20 140/72 (94) 100 12/15/18 00:00 Nasal Cannula 2.0 12/15/18 00:00 98.6 77 18 135/67 (89) 100 Intake and Output 12/14/18 12/15/18 18:59 06:59 Intake Total 0 ml 485 ml Output Total 800 ml 800 ml Balance -800 ml -315 ml Intake Oral 0 ml Free Water 50 ml Tube Feeding 435 ml Output Urine Total 800 ml 800 ml # Bowel Movements 1 Laboratory Tests 12/15/18 04:00: White Blood Count 2.7L, Red Blood Count 2.99L, Hemoglobin 9.3L, Hematocrit 29.7L , Mean Corpuscular Volume 99, Mean Corpuscular Hemoglobin 31.1H, Mean Corpuscular Hemoglobin Concent 31.3L, Red Cell Distribution Width 16.3H, Platelet Count 49L, Mean Platelet Volume 8.9, Neutrophils (%) (Auto) , Lymphocytes (%) (Auto) , Monocytes (%) (Auto) , Eosinophils (%) (Auto) , Basophils (%) (Auto) , Differential Total Cells Counted 100, Neutrophils % ( Manual) 72, Lymphocytes % (Manual) 18L, Monocytes % (Manual) 10, Eosinophils % ( Manual) 0, Basophils % (Manual) 0, Band Neutrophils 0, Platelet Estimate DecreasedL, Platelet Morphology Normal, Hypochromasia 1+, Anisocytosis 1+, Sodium Level 148H, Potassium Level 3.6, Chloride Level 113H, Carbon Dioxide Level 32, Anion Gap 3L, Blood Urea Nitrogen 22H, Creatinine 0.7, Estimat Glomerular Filtration Rate , Glucose Level 127#H, Calcium Level 9.1, Phosphorus Level 2.7, Magnesium Level 2.0 Height (Feet): 5 Height (Inches): 2.00 Weight (Pounds): 113 General Appearance: lethargic, confused Respiratory/Chest: normal breath sounds Abdomen: soft Yi Asencio MD Dec 15, 2018 22:02
[2018-12-16] VITALS: BP 128/62
--- NOTE | 2018-12-16 00:16 | Consultation ---
DATE OF CONSULTATION: 12/15/2018 CARDIOLOGY CONSULTATION CONSULTING PHYSICIAN: Deepak Aldana M.D. REFERRING PHYSICIAN: Yi Asencio M.D. REASON FOR CONSULTATION: Management of tachycardia. HISTORY OF PRESENT ILLNESS: The patient is a very unfortunate 78-year-old female, known to me, who was recently discharged from [facility] to custodial facility. However, she continued to demonstrate altered level of consciousness as well as generalized weakness in association with fever. The patient has underlying dementia and is not providing this history. Therefore, this report is prepared by using the old records. The patient was therefore sent back to [facility] Emergency Department for evaluation of fever and possible infection. At the time of arrival to the hospital, blood pressure was 132/72 mmHg and heart rate of 128. She was febrile with a temperature 101.7 degrees Fahrenheit. Cardiology consultation was made at the request of Dr. Asencio for management of tachycardia. PAST MEDICAL HISTORY: 1. Diabetes mellitus. 2. Hypertension. 3. Dementia. 4. Psychiatric disorder. 5. Hyperlipidemia. 6. Metabolic encephalopathy. 7. CVA. 8. Dysphagia, status post PEG placement. PAST SURGICAL HISTORY: PEG. ALLERGIES: No known drug allergies. MEDICATIONS: List of medication includes acetaminophen, albuterol sulfate, amlodipine 10 mg p.o. daily, aspirin 81 mg p.o. daily, atorvastatin 20 mg p.o. nightly, Klonopin, Catapres 0.1 mg q.4 h. p.r.n. high blood pressure, ferrous sulfate, insulin, milk of magnesia, metoprolol 25 mg p.o. twice daily, multivitamin, nitroglycerin 0.4 mg sublingual q.5 minutes p.r.n. chest pain, Zofran, K-Dur, Seroquel, senna, and Mylanta. SOCIAL HISTORY: There is no history of tobacco, alcohol, or illicit drug use. REVIEW OF SYSTEMS: A 12-system review could not be done as the patient is nonverbal. PHYSICAL EXAMINATION: VITAL SIGNS: Blood pressure at the time of arrival to the hospital was 132/72, respirations 18, pulse 128, and temperature 101.7 degrees Fahrenheit. O2 saturation 96% on room air. GENERAL: The patient is a very unfortunate 78-year-old female, who is nonverbal, in no apparent respiratory distress. HEENT: Atraumatic and normocephalic. Anicteric. Pupils are equal, round, and reactive to light and accommodation. Extraocular muscles intact. NECK: JVP less than 5 cm. No carotid bruit. Carotid upstrokes is 2+ bilaterally. CARDIOVASCULAR: Normal S1, S2. Regular rate and rhythm. Tachycardic. No murmurs, gallops, or rubs. LUNGS: Clear to auscultation bilaterally. ABDOMEN: Soft, nontender, and nondistended. No hepatosplenomegaly. Positive bowel sounds. EXTREMITIES: There is presence of a G-tube. EXTREMITIES: No evidence of edema, clubbing, or cyanosis. DIAGNOSTIC DATA: CT of head showed late subacute nonhemorrhagic infarct of the right occipital, temporal, posterior parietal lobes with associated local mass effect in the middle cerebral artery distribution, possible old infarct, chronic and age-related changes. No acute intracranial bleed. No midline shift or evidence of uncal herniation. Chest x-ray showed left basilar pleural fluid and likely consolidation. A 12-lead electrocardiogram, sinus tachycardia, rate of 132, with nonspecific ST and T-wave abnormality and possible LVH. LABORATORY FINDINGS: WBC is 4.7, hemoglobin 9.7, hematocrit 31.4, and platelet count 65. Sodium was 147 potassium 3.5, chloride 110, bicarbonate 31, BUN 28, and creatinine 0.9. Glucose is 251. Calcium is 9.1. ProBNP is 1134. ASSESSMENT AND PLAN: The patient is a very unfortunate 78-year-old lady who is seen in Cardiology consultation. 1. Sinus tachycardia, most likely secondary to underlying infection/urinary tract infection/pneumonia. The treatment of this condition is treatment of underlying disorder. We will continue with metoprolol 25 mg twice daily. 2. History of cerebrovascular accident. The patient will be continued on clopidogrel. I would add statins to the regimen as well. 3. History of dementia. 4. Dysphagia, status post G-tube. 5. Thrombocytopenia. 6. Diabetes mellitus. 7. CVA with hemiplegia. I would like to thank Dr. Asencio for allowing me to participate in the care of this patient. Deepak Aldana M.D. DR: TANA JOB#: [id number] CC:
[2018-12-16 04:00] VITALS: BP 143/81
[2018-12-16] MEDS: Piperacillin/Tazobactam 3.375 GM in D5W 110 ML IVPB SCH (05:39)
[2018-12-16 05:41] LABS: HEMATOCRIT 25.2 % (37.0-47.0); MEAN CORPUSCULAR VOLUME 96 FL (80-99); PLATELET COUNT 51 K/UL (150-450); RED BLOOD COUNT 2.62 M/UL (4.20-5.40); RED CELL DISTRIBUTION WIDTH 15.4 % (11.6-14.8); WHITE BLOOD COUNT 2.3 K/UL (4.8-10.8)
[2018-12-16] MEDS: NovoLOG Insulin Flexpen SUBQ SCH ×3 (05:41→17:49)
[2018-12-16 06:16] LABS: ANION GAP 4 mmol/L (5-15); BLOOD UREA NITROGEN 23 mg/dL (7-18); CARBON DIOXIDE 32 MMOL/L (21-32); CHLORIDE 112 MMOL/L (98-107); CREATININE 0.8 MG/DL (0.55-1.30); POTASSIUM 3.3 MMOL/L (3.5-5.1); SODIUM 148 MMOL/L (136-145)
--- NOTE | 2018-12-16 06:32 | General Progress Note ---
Assessment/Plan Problem List: (1) Feeding by G-tube ICD Codes: Z93.1 - Gastrostomy status SNOMED: 486068554, 229981607, 257647393 (2) Altered mental status ICD Codes: R41.82 - Altered mental status, unspecified SNOMED: 090930412 (3) Thrombocytopenia ICD Codes: D69.6 - Thrombocytopenia, unspecified SNOMED: 371572638 (4) Sepsis ICD Codes: A41.9 - Sepsis, unspecified organism SNOMED: 55861483 Assessment/Plan continue Novolog sliding scale every 6 hours no need for basal insulin for now Subjective ROS Limited/Unobtainable: Yes Allergies: Coded Allergies: No Known Allergies (Unverified , 12/14/18) Subjective events noted glucose values are stable Item Value Date Time Bedside Blood Glucose 180 mg/dl H 12/16/18 0541 Bedside Blood Glucose 180 mg/dl H 12/15/18 2314 Bedside Blood Glucose 139 mg/dl H 12/15/18 1804 Bedside Blood Glucose 149 mg/dl H 12/15/18 1252 Bedside Blood Glucose 177 mg/dl H 12/15/18 0921 Bedside Blood Glucose 154 mg/dl H 12/15/18 0518 Bedside Blood Glucose 173 mg/dl H 12/15/18 0028 Objective Last 24 Hour Vital Signs Date Time Temp Pulse Resp B/P (MAP) Pulse Ox O2 Delivery O2 Flow Rate FiO2 12/16/18 04:00 55 12/16/18 04:00 98.1 65 20 143/81 (101) 100 12/16/18 04:00 Nasal Cannula 2.0 12/16/18 00:00 98.3 57 20 128/62 (84) 100 12/16/18 00:00 Nasal Cannula 2.0 12/16/18 00:00 52 12/15/18 21:28 66 129/69 12/15/18 20:00 Nasal Cannula 2.0 12/15/18 20:00 65 12/15/18 20:00 98.2 66 20 129/59 (82) 98 12/15/18 19:17 61 16 Nasal Cannula 2.0 28 12/15/18 19:17 Nasal Cannula 2.0 28 12/15/18 19:17 100 Nasal Cannula 2.0 28 12/15/18 18:02 144/64 3/7/19 16:00 98.4 54 16 144/64 (90) 100 12/15/18 16:00 Nasal Cannula 2.0 12/15/18 15:22 55 12/15/18 12:00 98.2 60 14 133/97 (109) 100 12/15/18 12:00 Nasal Cannula 2.0 12/15/18 11:40 62 12/15/18 09:22 68 142/67 12/15/18 08:00 97.9 68 12 142/67 (92) 100 12/15/18 08:00 Nasal Cannula 2.0 12/15/18 07:53 108 16 Nasal Cannula 2.0 12/15/18 07:31 63 Intake and Output 12/15/18 12/16/18 19:00 07:00 Intake Total 627.5 ml 765.0 ml Output Total 500 ml 250 ml Balance 127.5 ml 515.0 ml Free Water 50 ml 50 ml IV Total 192.5 ml 110.0 ml Tube Feeding 385 ml 605 ml Output Urine Total 500 ml 250 ml # Bowel Movements 1 Laboratory Tests 12/16/18 03:50: White Blood Count 2.3L, Red Blood Count 2.62L, Hemoglobin 8.0L, Hematocrit 25.2L , Mean Corpuscular Volume 96, Mean Corpuscular Hemoglobin 30.4, Mean Corpuscular Hemoglobin Concent 31.6L, Red Cell Distribution Width 15.4H, Platelet Count 51L, Mean Platelet Volume 7.0, Neutrophils (%) (Auto) , Lymphocytes (%) (Auto) , Monocytes (%) (Auto) , Eosinophils (%) (Auto) , Basophils (%) (Auto) , Neutrophils % (Manual) [Pending], Lymphocytes % (Manual) [Pending], Platelet Estimate [Pending], Platelet Morphology [Pending], Sodium Level 148H, Potassium Level 3.3L, Chloride Level 112H, Carbon Dioxide Level 32, Anion Gap 4L, Blood Urea Nitrogen 23H, Creatinine 0.8, Estimat Glomerular Filtration Rate , Glucose Level 165H, Calcium Level 9.0 Height (Feet): 5 Height (Inches): 2.00 Weight (Pounds): 113 General Appearance: no apparent distress Neck: normal alignment Cardiovascular: normal rate Respiratory/Chest: lungs clear Abdomen: normal bowel sounds Objective Current Medications Medications (Trade) Dose Ordered Sig/Laure Route PRN Reason Start Time Stop Time Status Last Admin Dose Admin Acetaminophen (Tylenol) 650 mg Q4H PRN ORAL Mild Pain/Temp > 100.5 12/14/18 17:15 01/13/19 17:14 Albuterol/ Ipratropium (Albuterol/ Ipratropium) 3 ml Q4H PRN HHN Shortness of Breath 12/14/18 17:15 12/19/18 17:14 Clopidogrel Bisulfate (Plavix) 75 mg DAILY ORAL 12/15/18 09:00 01/14/19 08:59 Dextrose (Dextrose 50%) 25 ml Q30M PRN IV Hypoglycemia 12/14/18 17:15 01/13/19 17:14 Dextrose (Dextrose 50%) 50 ml Q30M PRN IV Hypoglycemia 12/14/18 17:15 01/13/19 17:14 Insulin Aspart (NovoLOG) EVERY 6 HOURS SUBQ 12/15/18 00:00 01/13/19 20:59 12/16/18 05:41 Metoprolol Tartrate (Lopressor) 25 mg Q12HR ORAL 12/14/18 21:00 01/13/19 20:59 12/15/18 21:28 Nitroglycerin (Ntg) 1 patch Q24H TDERMAL 12/14/18 17:15 01/13/19 17:14 12/15/18 18:02 Ondansetron HCl (Zofran ODT) 4 mg Q4HR ORAL 12/14/18 21:00 01/13/19 20:59 12/16/18 05:39 Piperacillin Sod/ Tazobactam Sod 3.375 gm/Dextrose 110 ml @ 27.5 mls/hr EVERY 8 HOURS IVPB 12/14/18 22:00 12/19/18 21:59 12/16/18 05:39 Enrique Tafoya MD Dec 16, 2018 06:32
--- NOTE | 2018-12-16 07:31 | NUR ---
HAND-OFF: Report given to Price DYKES. pt, remains stable and no signs of distress noted- aware to f/u on labs regarding low HGB from yesterday. Addendum: 12/16/18 at 0734 by JC DOHERTY RN RN correction to msg above report given to Lucas Thrasher. Nurse aware to f/u on abnormal labs. Addendum: 12/16/18 at 0735 by JC DOHERTY RN RN correction to msg above nurse aware to f/u on potassium trending down and HGB.
--- NOTE | 2018-12-16 07:32 | NUR ---
NURSE NOTES: Received patient from DNOIS Dang. Patient in bed with her eyes open. On 2L NC. In no respiratory distress. public health technician and vera catheter in placed. Tolerating Gtube feeding with Glucerna 1.2 at 55 cc/hour. Bed in lowest position locked with side rails up. Will continue to follow plan of care.
[2018-12-16 08:00] VITALS: BP 131/70
[2018-12-16] MEDS: Metoprolol 25mg tab ORAL SCH ×2 (08:15→21:00)
--- NOTE | 2018-12-16 09:30 | NUR ---
NURSE NOTES: Informed Preston Powell (HOSPICE CLINICAL MARKETER) about patient's HGB 8.0 HCT 25.2 Potassium 3.3. Received order for Kdur 40meq GT x1. Order carried out.
--- NOTE | 2018-12-16 09:59 | Infectious Diseases Prog Note ---
Assessment/Plan Assessment/Plan A; Sepsis UTI with E. coli Left hydronephrosis Subacute CVA Dementia Nephrolithiasis Pancytopenia DM type 2 History of DVT s/p IVC filter P; Discontinue Zosyn start on Ciprofloxacin Consider urologic evaluation Subjective ROS Limited/Unobtainable: Yes Constitutional: Reports: no symptoms Allergies: Coded Allergies: No Known Allergies (Unverified , 12/14/18) Objective Vital Signs Last 24 Hour Vital Signs Date Time Temp Pulse Resp B/P (MAP) Pulse Ox O2 Delivery O2 Flow Rate FiO2 12/16/18 08:15 72 131/70 12/16/18 08:00 97.5 72 19 131/70 (90) 99 12/16/18 04:00 55 12/16/18 04:00 98.1 65 20 143/81 (101) 100 12/16/18 04:00 Nasal Cannula 2.0 12/16/18 00:00 98.3 57 20 128/62 (84) 100 12/16/18 00:00 Nasal Cannula 2.0 12/16/18 00:00 52 12/15/18 21:28 66 129/69 12/15/18 20:00 Nasal Cannula 2.0 12/15/18 20:00 65 12/15/18 20:00 98.2 66 20 129/59 (82) 98 12/15/18 19:17 61 16 Nasal Cannula 2.0 28 12/15/18 19:17 Nasal Cannula 2.0 28 12/15/18 19:17 100 Nasal Cannula 2.0 28 12/15/18 18:02 144/64 12/15/18 16:00 98.4 54 16 144/64 (90) 100 12/15/18 16:00 Nasal Cannula 2.0 12/15/18 15:22 55 12/15/18 12:00 98.2 60 14 133/97 (109) 100 12/15/18 12:00 Nasal Cannula 2.0 12/15/18 11:40 62 Height (Feet): 5 Height (Inches): 2.00 Weight (Pounds): 113 General Appearance: no acute distress HEENT: mucous membranes moist Respiratory/Chest: lungs clear Cardiovascular: normal rate Abdomen: soft, non tender, other - GT feeding Extremities: no edema Neurologic/Psychiatric: aphasia, other - opens eyes Microbiology Date/Time Source Procedure Growth Status 12/14/18 09:25 Blood Blood Culture - Preliminary NO GROWTH AFTER 24 HOURS Resulted 12/14/18 09:25 Blood Blood Culture - Preliminary NO GROWTH AFTER 24 HOURS Resulted 12/14/18 09:25 Nasal Nares Influenza Types A,B Antigen (KYLE) - Final Complete 12/14/18 09:25 Urine,Clean Catch Urine Culture - Final Escherichia Coli Complete Laboratory Tests Test 12/16/18 03:50 White Blood Count 2.3 K/UL (4.8-10.8) L Red Blood Count 2.62 M/UL (4.20-5.40) L Hemoglobin 8.0 G/DL (12.0-16.0) L Hematocrit 25.2 % (37.0-47.0) L Mean Corpuscular Volume 96 FL (80-99) Mean Corpuscular Hemoglobin 30.4 PG (27.0-31.0) Mean Corpuscular Hemoglobin Concent 31.6 G/DL (32.0-36.0) L Red Cell Distribution Width 15.4 % (11.6-14.8) H Platelet Count 51 K/UL (150-450) L Mean Platelet Volume 7.0 FL (6.5-10.1) Neutrophils (%) (Auto) % (45.0-75.0) Lymphocytes (%) (Auto) % (20.0-45.0) Monocytes (%) (Auto) % (1.0-10.0) Eosinophils (%) (Auto) % (0.0-3.0) Basophils (%) (Auto) % (0.0-2.0) Differential Total Cells Counted 100 Neutrophils % (Manual) 74 % (45-75) Lymphocytes % (Manual) 14 % (20-45) L Monocytes % (Manual) 11 % (1-10) H Eosinophils % (Manual) 1 % (0-3) Basophils % (Manual) 0 % (0-2) Band Neutrophils 0 % (0-8) Platelet Estimate Decreased L Platelet Morphology Normal Anisocytosis 1+ Sodium Level 148 MMOL/L (136-145) H Potassium Level 3.3 MMOL/L (3.5-5.1) L Chloride Level 112 MMOL/L (98-107) H Carbon Dioxide Level 32 MMOL/L (21-32) Anion Gap 4 mmol/L (5-15) L Blood Urea Nitrogen 23 mg/dL (7-18) H Creatinine 0.8 MG/DL (0.55-1.30) Estimat Glomerular Filtration Rate mL/min (>60) Glucose Level 165 MG/DL (74-106) H Calcium Level 9.0 MG/DL (8.5-10.1) Current Medications Medications (Trade) Dose Ordered Sig/Laure Route PRN Reason Start Time Stop Time Status Last Admin Dose Admin Acetaminophen (Tylenol) 650 mg Q4H PRN ORAL Mild Pain/Temp > 100.5 12/14/18 17:15 01/13/19 17:14 Albuterol/ Ipratropium (Albuterol/ Ipratropium) 3 ml Q4H PRN HHN Shortness of Breath 12/14/18 17:15 12/19/18 17:14 Clopidogrel Bisulfate (Plavix) 75 mg DAILY ORAL 12/15/18 09:00 01/14/19 08:59 Dextrose (Dextrose 50%) 25 ml Q30M PRN IV Hypoglycemia 12/14/18 17:15 01/13/19 17:14 Dextrose (Dextrose 50%) 50 ml Q30M PRN IV Hypoglycemia 12/14/18 17:15 01/13/19 17:14 Insulin Aspart (NovoLOG) EVERY 6 HOURS SUBQ 12/15/18 00:00 01/13/19 20:59 12/16/18 05:41 Metoprolol Tartrate (Lopressor) 25 mg Q12HR ORAL 12/14/18 21:00 01/13/19 20:59 12/16/18 08:15 Nitroglycerin (Ntg) 1 patch Q24H TDERMAL 12/14/18 17:15 01/13/19 17:14 12/15/18 18:02 Ondansetron HCl (Zofran ODT) 4 mg Q4HR ORAL 12/14/18 21:00 01/13/19 20:59 12/16/18 08:15 Piperacillin Sod/ Tazobactam Sod 3.375 gm/Dextrose 110 ml @ 27.5 mls/hr EVERY 8 HOURS IVPB 12/14/18 22:00 12/19/18 21:59 12/16/18 05:39 Potassium Chloride (K-Dur) 40 meq ONCE GT 12/16/18 09:45 12/16/18 11:00 Shimon Nuñez MD Dec 16, 2018 09:59
[2018-12-16] MEDS: Ciprofloxacin 500mg tab GT SCH ×2 (10:16→20:11)
--- NOTE | 2018-12-16 10:46 | GI Progress Note ---
Assessment/Plan Problems: (1) Altered mental status ICD Codes: R41.82 - Altered mental status, unspecified SNOMED: 906035892 (2) Anemia ICD Codes: D64.9 - Anemia, unspecified SNOMED: 506835790 (3) Thrombocytopenia ICD Codes: D69.6 - Thrombocytopenia, unspecified SNOMED: 003668184 (4) Malnutrition ICD Codes: E46 - Unspecified protein-calorie malnutrition SNOMED: 81396133 (5) Dehydration ICD Codes: E86.0 - Dehydration SNOMED: 58693628 Status: stable, unchanged Status Narrative Discussed with Dr. Argueta Assessment/Plan Abdominal US reviewed, see full report. Equivocally slightly coarsened hepatic echogenicity, could indicate hepatocellular disease. GTF per RD, tolerating prn transfusions ppi reglan if needed abx per ID supportive care fu labs The patient was seen and examined at bedside and all new and available data was reviewed in the patients chart. I agree with the above findings, impression and plan. (Patient seen earlier today. Signature stamp does not reflect patient encounter time.). - Edwardo Argueta MD Subjective Subjective limited Objective Last 24 Hour Vital Signs Date Time Temp Pulse Resp B/P (MAP) Pulse Ox O2 Delivery O2 Flow Rate FiO2 12/16/18 08:15 72 131/70 12/16/18 08:00 97.5 72 19 131/70 (90) 99 12/16/18 08:00 Nasal Cannula 2.0 12/16/18 07:49 76 12/16/18 04:00 55 12/16/18 04:00 98.1 65 20 143/81 (101) 100 12/16/18 04:00 Nasal Cannula 2.0 12/16/18 00:00 98.3 57 20 128/62 (84) 100 12/16/18 00:00 Nasal Cannula 2.0 12/16/18 00:00 52 12/15/18 21:28 66 129/69 12/15/18 20:00 Nasal Cannula 2.0 12/15/18 20:00 65 12/15/18 20:00 98.2 66 20 129/59 (82) 98 12/15/18 19:17 61 16 Nasal Cannula 2.0 28 12/15/18 19:17 Nasal Cannula 2.0 28 12/15/18 19:17 100 Nasal Cannula 2.0 28 12/15/18 18:02 144/64 12/15/18 16:00 98.4 54 16 144/64 (90) 100 12/15/18 16:00 Nasal Cannula 2.0 12/15/18 15:22 55 12/15/18 12:00 98.2 60 14 133/97 (109) 100 12/15/18 12:00 Nasal Cannula 2.0 12/15/18 11:40 62 Intake and Output 12/15/18 12/16/18 19:00 07:00 Intake Total 627.5 ml 765.0 ml Output Total 500 ml 250 ml Balance 127.5 ml 515.0 ml Free Water 50 ml 50 ml IV Total 192.5 ml 110.0 ml Tube Feeding 385 ml 605 ml Output Urine Total 500 ml 250 ml # Bowel Movements 1 Laboratory Tests Test 12/16/18 03:50 White Blood Count 2.3 K/UL (4.8-10.8) L Red Blood Count 2.62 M/UL (4.20-5.40) L Hemoglobin 8.0 G/DL (12.0-16.0) L Hematocrit 25.2 % (37.0-47.0) L Mean Corpuscular Volume 96 FL (80-99) Mean Corpuscular Hemoglobin 30.4 PG (27.0-31.0) Mean Corpuscular Hemoglobin Concent 31.6 G/DL (32.0-36.0) L Red Cell Distribution Width 15.4 % (11.6-14.8) H Platelet Count 51 K/UL (150-450) L Mean Platelet Volume 7.0 FL (6.5-10.1) Neutrophils (%) (Auto) % (45.0-75.0) Lymphocytes (%) (Auto) % (20.0-45.0) Monocytes (%) (Auto) % (1.0-10.0) Eosinophils (%) (Auto) % (0.0-3.0) Basophils (%) (Auto) % (0.0-2.0) Differential Total Cells Counted 100 Neutrophils % (Manual) 74 % (45-75) Lymphocytes % (Manual) 14 % (20-45) L Monocytes % (Manual) 11 % (1-10) H Eosinophils % (Manual) 1 % (0-3) Basophils % (Manual) 0 % (0-2) Band Neutrophils 0 % (0-8) Platelet Estimate Decreased L Platelet Morphology Normal Anisocytosis 1+ Sodium Level 148 MMOL/L (136-145) H Potassium Level 3.3 MMOL/L (3.5-5.1) L Chloride Level 112 MMOL/L (98-107) H Carbon Dioxide Level 32 MMOL/L (21-32) Anion Gap 4 mmol/L (5-15) L Blood Urea Nitrogen 23 mg/dL (7-18) H Creatinine 0.8 MG/DL (0.55-1.30) Estimat Glomerular Filtration Rate mL/min (>60) Glucose Level 165 MG/DL (74-106) H Calcium Level 9.0 MG/DL (8.5-10.1) Height (Feet): 5 Height (Inches): 2.00 Weight (Pounds): 113 General Appearance: no apparent distress Cardiovascular: normal rate Respiratory/Chest: normal breath sounds, no respiratory distress Abdominal Exam: normal bowel sounds, non tender, soft, GT site - Clean dry and intact Extremities: non-tender Aidee Powell NP Dec 16, 2018 10:46
--- NOTE | 2018-12-16 11:24 | NUR ---
DATABASE PROGRAMMER ANALYSTBENZENE WASHER SI:FEVER, ALTERED MENTAL STATUS VS: BP 143/81, P 52, T 97.5, RR 20 SpO2 100 on 2.0 NC WBC 2.3, RBC 2.62, Na 148, K 3.3, Chloride 112, BUN 23, Glucose [address] Impression Left lower pole intrarenal calculus demonstrated. This measures larger than that seen on prior CT scan. Splenomegaly, not evident previously IS:Ciprofloxacin K-Dur Plavix NovoLOG Piperacillin Metoprolol Zofran SDU STATUS
--- NOTE | 2018-12-16 11:30 | NUR ---
NURSE NOTES: Clarified with Dr. Bergman if he still wants me to administer [id number] X2 to patient that he ordered even if I already given the Kdur 40meq. Dr. Bergman said yes to still administer.
[2018-12-16 12:00] VITALS: BP 135/67
[2018-12-16] MEDS ORDERED: Sodium Chloride for KCL Premix x 2hrs IV SCH (12:00)
--- NOTE | 2018-12-16 15:35 | NUR ---
*-* INSURANCE *-* ALL CLINICALS, REVIEWS AND INTERQUAL FAXED TO: [facility] F: [phone]
--- NOTE | 2018-12-16 15:47 | Consultation ---
Consult Note Consult Note I was asked to eval at the request of Dr Arauz for fluid and electrolyte management- Patient know to me from her recent admit. Currently in [facility] 78-year-old female presents ED for evaluation. Patient coming from half-way facility for evaluation of altered mental status and weakness. Febrile in triage. Patient has history of dementia. Patient was discharged yesterday from [facility] back to half-way facility however nursing staff states that patient continues to be altered and reportedly had fever this morning. Upon arrival patient showing no signs of distress. one episode of vomiting prior to arrival. Unable to provide any additional history at this time. No other aggravating relieving factors. No other associated symptoms No Known Allergies (Unverified , 12/14/18) Past Medical History: dementia Past Surgical History: other - Gtube Past Medical History: No History, Except For Hx Cardiac Problems: No - THROMBOCYTOPENIA, HYPOKALEMIA Hx Diabetes: Yes Hx Gastrointestinal Problems: Yes - G-tube Hx Neurological Problems: Yes - DEMENTIA, Hx Cerebrovascular Accident: Yes - HEMIPLEGIA Hx Dementia: Yes Hx Weakness: Yes Assessment/Plan Electrolyte imbalance UTI Anemia Low K Diabetic Nephropathy, HypoAlbuminemia CAD K Phos , KCl , MgSo4 IV ordered antibiotics avoid nephrotoxics anemia mac per orders Parvez Bergman MD Dec 16, 2018 15:47
[2018-12-16 16:00] VITALS: BP 121/61
--- NOTE | 2018-12-16 16:09 | NUR ---
NURSE NOTES:WOUND CARE NOTES:PT PRESENTED WITH RESOLVING PRESSURE INJURY sacrum(L)3.4cm x (W)2cm.Non-blanching erythema with multiple small openings within base ,surrounding pink granulation with dark brown borders and periwound without induration. No odor or exudate noted. Non-blanchable erythema without fluctuance noted to lateral R heel. L heel pink and blanchable. No other skin concerns noted. Recommendations:Apply Moisture Barrier Paste to sacrum.Cover with Optifoam drsg . Change Q3days and prn. Apply Moisture Barrier to perineum and buttocks with each perineal care. Apply Cavilon Skin Barrier to each heel .Cover each heel with Optifoam drsg.Change Q7 days and prn. Reposition at least every 2hours or as tolerated. Off-load heels with Pillow. APM/Tuan mattress overlay.
[2018-12-16] MEDS: Nitroglycerin Patch 0.4mg TDERMAL SCH (17:50)
--- NOTE | 2018-12-16 19:09 | Pulmonology Progress Note ---
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 (4) DVT (deep venous thrombosis) (5) Anemia (6) Thrombocytopenia (7) S/P IVC filter (8) Dementia with behavioral disturbance (9) Feeding by G-tube Assessment/Plan Optimize pulmonary hygiene/mobilize as tolerated PRN O2 PRN HHN's Abx per ID, F/U Cx's Monitor HH, transfuse as needed F/U GI recs Consider eval TF's as tolerated DVT Px: IVCF FC Continue to discuss GOC Subjective Allergies: Coded Allergies: No Known Allergies (Unverified , 12/14/18) Subjective AFVSS on 2L Hb 8 CT with L hydro (unchanged) E coli in urine No distress, no cough, no SOB, no F/C, leta TF's Objective Last 24 Hour Vital Signs Date Time Temp Pulse Resp B/P (MAP) Pulse Ox O2 Delivery O2 Flow Rate FiO2 12/16/18 17:50 121/61 12/16/18 16:00 Nasal Cannula 2.0 12/16/18 16:00 98.1 63 17 121/61 (81) 100 12/16/18 15:32 63 12/16/18 12:00 97.7 66 18 135/67 (89) 100 12/16/18 12:00 Nasal Cannula 2.0 12/16/18 11:48 65 12/16/18 08:15 72 131/70 12/16/18 08:00 97.5 72 19 131/70 (90) 99 12/16/18 08:00 Nasal Cannula 2.0 12/16/18 07:49 76 12/16/18 04:00 55 12/16/18 04:00 98.1 65 20 143/81 (101) 100 12/16/18 04:00 Nasal Cannula 2.0 12/16/18 00:00 98.3 57 20 128/62 (84) 100 12/16/18 00:00 Nasal Cannula 2.0 12/16/18 00:00 52 12/15/18 21:28 66 129/69 12/15/18 20:00 Nasal Cannula 2.0 12/15/18 20:00 65 12/15/18 20:00 98.2 66 20 129/59 (82) 98 12/15/18 19:17 61 16 Nasal Cannula 2.0 28 12/15/18 19:17 Nasal Cannula 2.0 28 12/15/18 19:17 100 Nasal Cannula 2.0 28 Intake and Output 12/15/18 12/16/18 19:00 07:00 Intake Total 627.5 ml 820.0 ml Output Total 500 ml 250 ml Balance 127.5 ml 570.0 ml Free Water 50 ml 50 ml IV Total 192.5 ml 110.0 ml Tube Feeding 385 ml 660 ml Output Urine Total 500 ml 250 ml # Bowel Movements 1 General Appearance: no acute distress, cachetic - non-verbal HEENT: normocephalic, atraumatic, anicteric, mucous membranes moist Respiratory/Chest: chest wall non-tender, lungs clear, normal breath sounds, no respiratory distress, no accessory muscle use Cardiovascular: normal peripheral pulses, normal rate, regular rhythm Abdomen: normal bowel sounds, soft, non tender, no organomegaly, non distended , no mass, other - GT Extremities: no cyanosis, no clubbing, no edema Microbiology Date/Time Source Procedure Growth Status 12/14/18 09:25 Blood Blood Culture - Preliminary NO GROWTH AFTER 24 HOURS Resulted 12/14/18 09:25 Blood Blood Culture - Preliminary NO GROWTH AFTER 24 HOURS Resulted 12/14/18 09:25 Nasal Nares Influenza Types A,B Antigen (KYLE) - Final Complete 12/14/18 09:25 Urine,Clean Catch Urine Culture - Final Escherichia Coli Complete Laboratory Tests 12/16/18 03:50: White Blood Count 2.3L, Red Blood Count 2.62L, Hemoglobin 8.0L, Hematocrit 25.2L , Mean Corpuscular Volume 96, Mean Corpuscular Hemoglobin 30.4, Mean Corpuscular Hemoglobin Concent 31.6L, Red Cell Distribution Width 15.4H, Platelet Count 51L, Mean Platelet Volume 7.0, Neutrophils (%) (Auto) , Lymphocytes (%) (Auto) , Monocytes (%) (Auto) , Eosinophils (%) (Auto) , Basophils (%) (Auto) , Differential Total Cells Counted 100, Neutrophils % ( Manual) 74, Lymphocytes % (Manual) 14L, Monocytes % (Manual) 11H, Eosinophils % (Manual) 1, Basophils % (Manual) 0, Band Neutrophils 0, Platelet Estimate DecreasedL, Platelet Morphology Normal, Anisocytosis 1+, Sodium Level 148H, Potassium Level 3.3L, Chloride Level 112H, Carbon Dioxide Level 32, Anion Gap 4L , Blood Urea Nitrogen 23H, Creatinine 0.8, Estimat Glomerular Filtration Rate , Glucose Level 165H, Calcium Level 9.0, C-Reactive Protein, Quantitative 3.2H 12/16/18 18:00: C-Reactive Protein, Quantitative 2.4H Current Medications Medications (Trade) Dose Ordered Sig/Laure Route PRN Reason Start Time Stop Time Status Last Admin Dose Admin Acetaminophen (Tylenol) 650 mg Q4H PRN ORAL Mild Pain/Temp > 100.5 12/14/18 17:15 01/13/19 17:14 Albuterol/ Ipratropium (Albuterol/ Ipratropium) 3 ml Q4H PRN HHN Shortness of Breath 12/14/18 17:15 12/19/18 17:14 Ciprofloxacin (Cipro 500mg tab) 500 mg EVERY 12 HOURS GT 12/16/18 11:00 12/23/18 10:59 12/16/18 10:16 Clopidogrel Bisulfate (Plavix) 75 mg DAILY ORAL 12/15/18 09:00 01/14/19 08:59 Dextrose (Dextrose 50%) 25 ml Q30M PRN IV Hypoglycemia 12/14/18 17:15 01/13/19 17:14 Dextrose (Dextrose 50%) 50 ml Q30M PRN IV Hypoglycemia 12/14/18 17:15 01/13/19 17:14 Insulin Aspart (NovoLOG) EVERY 6 HOURS SUBQ 12/15/18 00:00 01/13/19 20:59 12/16/18 17:49 Lansoprazole (Prevacid) 30 mg BID GT 12/16/18 18:00 01/15/19 17:59 12/16/18 17:48 Metoprolol Tartrate (Lopressor) 25 mg Q12HR ORAL 12/14/18 21:00 01/13/19 20:59 12/16/18 08:15 Nitroglycerin (Ntg) 1 patch Q24H TDERMAL 12/14/18 17:15 01/13/19 17:14 12/16/18 17:50 Ondansetron HCl (Zofran ODT) 4 mg Q4HR ORAL 12/14/18 21:00 01/13/19 20:59 12/16/18 17:48 Foreign Parekh MD Dec 16, 2018 19:09
--- NOTE | 2018-12-16 19:10 | NUR ---
HAND-OFF: Report given to DONIS Crowell. Patient stable.
--- NOTE | 2018-12-16 19:39 | NUR ---
NURSE NOTES: Received patient in bed with eyes closed. On 2L NC. GT feeding Glucerna 1.2 @ 55cc/hr with 10 cc residual noted at this time. Left wrist 22 heplock. Leiva cath draining by gravity at this time. On contact precautions, bed in lowest position, side rails upx3. No signs of distress noted. Will continue to monitor.
[2018-12-16 20:00] VITALS: BP 120/88
--- NOTE | 2018-12-16 21:06 | General Progress Note ---
Assessment/Plan Problem List: (1) Dementia with behavioral disturbance ICD Codes: F03.91 - Unspecified dementia with behavioral disturbance SNOMED: 0979052005836 (2) Fever ICD Codes: R50.9 - Fever, unspecified SNOMED: 939624521 (3) Dehydration ICD Codes: E86.0 - Dehydration SNOMED: 90431742 (4) Anemia ICD Codes: D64.9 - Anemia, unspecified SNOMED: 223445347 (5) Thrombocytopenia ICD Codes: D69.6 - Thrombocytopenia, unspecified SNOMED: 809640830 (6) CVA (cerebral vascular accident) ICD Codes: I63.9 - Cerebral infarction, unspecified SNOMED: 839565371 Qualifiers: Qualified Codes: I63.9 - Cerebral infarction, unspecified (7) Elevated troponin I level ICD Codes: R74.8 - Abnormal levels of other serum enzymes SNOMED: 530609814 (8) Diabetic nephropathy 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 SNOMED: 238197905 (9) Feeding by G-tube ICD Codes: Z93.1 - Gastrostomy status SNOMED: 056326686, 789025904, 291669060 Status: progressing Assessment/Plan malnutrition consulted urology for hydro r/p kidney stone sepsis pna subacute cva pancytopenia abx per id reviewd chart and labs Subjective ROS Limited/Unobtainable: Yes Allergies: Coded Allergies: No Known Allergies (Unverified , 12/14/18) Objective Last 24 Hour Vital Signs Date Time Temp Pulse Resp B/P (MAP) Pulse Ox O2 Delivery O2 Flow Rate FiO2 12/16/18 21:00 60 115/45 12/16/18 18:00 Nasal Cannula 2.0 12/16/18 17:50 121/61 12/16/18 16:00 Nasal Cannula 2.0 12/16/18 16:00 98.1 63 17 121/61 (81) 100 12/16/18 15:32 63 12/16/18 12:00 97.7 66 18 135/67 (89) 100 12/16/18 12:00 Nasal Cannula 2.0 12/16/18 11:48 65 12/16/18 08:15 72 131/70 12/16/18 08:00 97.5 72 19 131/70 (90) 99 12/16/18 08:00 Nasal Cannula 2.0 12/16/18 07:49 76 12/16/18 04:00 55 12/16/18 04:00 98.1 65 20 143/81 (101) 100 12/16/18 04:00 Nasal Cannula 2.0 12/16/18 00:00 98.3 57 20 128/62 (84) 100 12/16/18 00:00 Nasal Cannula 2.0 12/16/18 00:00 52 12/15/18 21:28 66 129/69 Intake and Output 12/15/18 12/16/18 18:59 06:59 Intake Total 627.5 ml 820.0 ml Output Total 500 ml 250 ml Balance 127.5 ml 570.0 ml Free Water 50 ml 50 ml IV Total 192.5 ml 110.0 ml Tube Feeding 385 ml 660 ml Output Urine Total 500 ml 250 ml # Bowel Movements 1 Laboratory Tests 12/16/18 03:50: White Blood Count 2.3L, Red Blood Count 2.62L, Hemoglobin 8.0L, Hematocrit 25.2L , Mean Corpuscular Volume 96, Mean Corpuscular Hemoglobin 30.4, Mean Corpuscular Hemoglobin Concent 31.6L, Red Cell Distribution Width 15.4H, Platelet Count 51L, Mean Platelet Volume 7.0, Neutrophils (%) (Auto) , Lymphocytes (%) (Auto) , Monocytes (%) (Auto) , Eosinophils (%) (Auto) , Basophils (%) (Auto) , Differential Total Cells Counted 100, Neutrophils % ( Manual) 74, Lymphocytes % (Manual) 14L, Monocytes % (Manual) 11H, Eosinophils % (Manual) 1, Basophils % (Manual) 0, Band Neutrophils 0, Platelet Estimate DecreasedL, Platelet Morphology Normal, Anisocytosis 1+, Sodium Level 148H, Potassium Level 3.3L, Chloride Level 112H, Carbon Dioxide Level 32, Anion Gap 4L , Blood Urea Nitrogen 23H, Creatinine 0.8, Estimat Glomerular Filtration Rate , Glucose Level 165H, Calcium Level 9.0, C-Reactive Protein, Quantitative 3.2H 12/16/18 18:00: C-Reactive Protein, Quantitative 2.4H Height (Feet): 5 Height (Inches): 2.00 Weight (Pounds): 113 General Appearance: lethargic, confused Neck: supple Cardiovascular: normal rate Respiratory/Chest: lungs clear Yi Asencio MD Dec 16, 2018 21:06
--- NOTE | 2018-12-16 21:37 | General Progress Note ---
Assessment/Plan Assessment/Plan Assessment/Plan: # Thrombocytopenia - potential causes multifactorial, evaluate liver and viral etiologies to begin, also could be related to underlying medications patient has received. --> Hep panel and HIV negative --> US abd to evaluate for cirrhosis and hsm reviewed --> Peripheral smear ordered to evaluate for blasts /schistocytes --> abx and other meds have been reviewed --> ok for ppx if plt >50k w/ either heparin or lovenox --> Transfuse if Plt < 20k and fever, or if Plt < 10k without fever # Pancytopenia, likely related to septicemia, appears new baseline 50-70k, several causes possible including viral, medication or intrabone marrow related. --> Cont to monitor plt count for improvement --> US abd: Mild left hydronephrosis. Possible left renal calyceal calculi. Negative for gallstones or dilated ducts Debris noted within the bladder --> Hep panel and HIV are both negative --> given extremely poor condition do not recommend a bone marrow biopsy, have discussed with family 08/01 with --> will rediscuss once sepsis resolves --> transfuse if plt <20k # Anemia of chronic disease. Multifactorial. Since admission Hgb has consistently remained between 8-9. --> Cont to monitor for stability --> Hgb goal above 7. Transfuse prn. --> IV iron completed prior admission and feritin is elevated # DVT of the left leg s/p IVC filter in 07/2018-- superficial femoral vein which is a deep vein, new onset, has not had these symptoms before. Lower hgb and plts --> given decreased h/h, low thrombocytopenia, do not recommend anticoag --> appreciate Dr. Parekh and Mariam arias from prior admission --> smear reviewed # Dehydration. IVF has been administered --> improved # DM OOC --> A1C goal <7 --> Cont on insulin # Bacteremia/prior UTI. --> ID is following. Appreciate recs. --> Pt on IV abx. --> Cultures surveillance as per id # PEG placement 08/04. Greatly appreciate consultation! Subjective HEENT: Denies: no symptoms, eye pain, blurred vision, tearing, double vision, ear pain, ear discharge, nose pain, nose congestion, throat pain, throat swelling, mouth pain, mouth swelling, other Allergies: Coded Allergies: No Known Allergies (Unverified , 12/14/18) Subjective 12/16: seen by bedside, awake, comfortable, hgb 8, plt 51 Objective Last 24 Hour Vital Signs Date Time Temp Pulse Resp B/P (MAP) Pulse Ox O2 Delivery O2 Flow Rate FiO2 12/16/18 21:00 60 115/45 12/16/18 20:00 Nasal Cannula 2.0 12/16/18 18:00 Nasal Cannula 2.0 12/16/18 17:50 121/61 12/16/18 16:00 Nasal Cannula 2.0 12/16/18 16:00 98.1 63 17 121/61 (81) 100 12/16/18 15:32 63 12/16/18 12:00 97.7 66 18 135/67 (89) 100 12/16/18 12:00 Nasal Cannula 2.0 12/16/18 11:48 65 12/16/18 08:15 72 131/70 12/16/18 08:00 97.5 72 19 131/70 (90) 99 12/16/18 08:00 Nasal Cannula 2.0 12/16/18 07:49 76 12/16/18 04:00 55 12/16/18 04:00 98.1 65 20 143/81 (101) 100 12/16/18 04:00 Nasal Cannula 2.0 12/16/18 00:00 98.3 57 20 128/62 (84) 100 12/16/18 00:00 Nasal Cannula 2.0 12/16/18 00:00 52 Intake and Output 12/15/18 12/16/18 18:59 06:59 Intake Total 627.5 ml 820.0 ml Output Total 500 ml 250 ml Balance 127.5 ml 570.0 ml Free Water 50 ml 50 ml IV Total 192.5 ml 110.0 ml Tube Feeding 385 ml 660 ml Output Urine Total 500 ml 250 ml # Bowel Movements 1 Laboratory Tests 12/16/18 03:50: White Blood Count 2.3L, Red Blood Count 2.62L, Hemoglobin 8.0L, Hematocrit 25.2L , Mean Corpuscular Volume 96, Mean Corpuscular Hemoglobin 30.4, Mean Corpuscular Hemoglobin Concent 31.6L, Red Cell Distribution Width 15.4H, Platelet Count 51L, Mean Platelet Volume 7.0, Neutrophils (%) (Auto) , Lymphocytes (%) (Auto) , Monocytes (%) (Auto) , Eosinophils (%) (Auto) , Basophils (%) (Auto) , Differential Total Cells Counted 100, Neutrophils % ( Manual) 74, Lymphocytes % (Manual) 14L, Monocytes % (Manual) 11H, Eosinophils % (Manual) 1, Basophils % (Manual) 0, Band Neutrophils 0, Platelet Estimate DecreasedL, Platelet Morphology Normal, Anisocytosis 1+, Sodium Level 148H, Potassium Level 3.3L, Chloride Level 112H, Carbon Dioxide Level 32, Anion Gap 4L , Blood Urea Nitrogen 23H, Creatinine 0.8, Estimat Glomerular Filtration Rate , Glucose Level 165H, Calcium Level 9.0, C-Reactive Protein, Quantitative 3.2H 12/16/18 18:00: C-Reactive Protein, Quantitative 2.4H Height (Feet): 5 Height (Inches): 2.00 Weight (Pounds): 113 Objective PHYSICAL EXAMINATION: VITAL SIGNS: Temperature 97.9, pulse, blood pressure 142/67, and respiratory rate 12. Saturating 100% on 2 L. GENERAL: She is an elderly demented female, in no acute distress. Nonverbal. HEENT: Normocephalic and atraumatic. Oropharynx is clear. Moist mucous membranes. NECK: Supple without lymphadenopathy. CHEST: Clear, but rales at the bases. HEART: Regular rate and rhythm. ABDOMEN: Soft, nontender, and nondistended. ++ peg EXTREMITIES: No cyanosis, clubbing or edema. Dewayne Gayle MD Dec 16, 2018 21:37
--- NOTE | 2018-12-16 22:01 | Consultation ---
DATE OF CONSULTATION: 12/16/2018 REASON FOR CONSULTATION: Possible left ureteral stone. HISTORY OF PRESENT ILLNESS: The patient is nonverbal and was examined after I was consulted to evaluate him for possible left renal stone and mild hydronephrosis. The patient's ultrasound showed mild left hydronephrosis and some sludge in the collecting system of the left and right kidney. Left hydronephrosis unchanged since 2018. In a history, the patient had CT scan that showed a small stone in the mid left ureter and since then, his condition was unchanged. PAST MEDICAL HISTORY: Significant for dysphagia, hypertension, hyperlipidemia, psychosis, constipation, and CVA. PAST SURGICAL HISTORY: PEG. CURRENT MEDICATIONS: Aspirin, Lipitor, clonidine, insulin, Seroquel, and Senokot. ALLERGIES: No known allergies. FAMILY HISTORY: Unable to obtain. REVIEW OF SYSTEMS: Unobtainable. PHYSICAL EXAMINATION: VITAL SIGNS: He is afebrile. Vital signs are stable. LUNGS: Clear to auscultation. CARDIOVASCULAR: Regular rate and rhythm. ABDOMEN: Soft and nontender. Gastrostomy tube is intact. Suprapubic area is nondistended. LABORATORY DATA: Normal. Creatinine is 0.8. Normal white count. Ultrasound reports were reviewed. ASSESSMENT/PLAN: Due to the overall condition of the patient, I am considering that he is non-acute right now. His creatinine is stable, his blood work is fine, and his hydronephrosis has not deteriorated. I would recommend to just watch the patient conservatively. We will follow up his renal condition. No surgical intervention is recommended at this point. Lan Ceballos M.D. DR: IAN JOB#: [id number] CC:
--- NOTE | 2018-12-16 23:27 | Consultation ---
Deepak Aldana MD Dec 16, 2018 23:27
[2018-12-17] VITALS: BP 138/71
--- NOTE | 2018-12-17 | NUR ---
NURSE NOTES: Morning care provided at this time. patient noted to have one moderate size BM. Continues on feeding with no residual noted. No signs of distress noted. Will continue to monitor
[2018-12-17] MEDS: NovoLOG Insulin Flexpen SUBQ SCH ×4 (00:07→17:58)
[2018-12-17 04:00] VITALS: BP 136/70
[2018-12-17 05:56] LABS: HEMATOCRIT 26.2 % (37.0-47.0); HEMOGLOBIN 8.4 G/DL (12.0-16.0); MEAN CORPUSCULAR VOLUME 97 FL (80-99); PLATELET COUNT 58 K/UL (150-450); RED BLOOD COUNT 2.69 M/UL (4.20-5.40); RED CELL DISTRIBUTION WIDTH 16.2 % (11.6-14.8)
[2018-12-17 06:03] LABS: WHITE BLOOD COUNT 2.2 K/UL (4.8-10.8)
[2018-12-17 06:44] LABS: ALANINE AMINOTRANSFERASE 15 U/L (12-78); ALBUMIN/GLOBULIN RATIO 0.5 (1.0-2.7); ALKALINE PHOSPHATASE 68 U/L (46-116); ANION GAP 2 mmol/L (5-15); ASPARTATE AMINO TRANSFERASE 31 U/L (15-37); BILIRUBIN,TOTAL 0.4 MG/DL (0.2-1.0); BLOOD UREA NITROGEN 21 mg/dL (7-18); CALCIUM 8.8 MG/DL (8.5-10.1); CARBON DIOXIDE 33 MMOL/L (21-32); CHLORIDE 110 MMOL/L (98-107); CHOLESTEROL 136 MG/DL (< 200); CREATININE 0.7 MG/DL (0.55-1.30); HDL CHOLESTEROL 39 MG/DL (40-60); SODIUM 145 MMOL/L (136-145); TRIGLYCERIDES 101 MG/DL (30-150)
[2018-12-17 07:21] LABS: CREATINE KINASE 17 U/L (26-308); FERRITIN 326 NG/ML (8-388); GAMMA GLUTAMYL TRANSPEPTIDASE 28 U/L (5-85)
--- NOTE | 2018-12-17 07:23 | NUR ---
HAND-OFF: Report given to Evelio RN using SBAR. Patient checked at bedside
[2018-12-17 08:00] VITALS: BP 132/66
--- NOTE | 2018-12-17 08:06 | NUR ---
NURSE NOTES: Received patient from Lucila Palomares RN. Patient was asleep and receiving 2L O2 via nasal cannula. Patient is receiving Glucerna 1.2 at 55cc/hr, no residuals. Patients G-tube is patent and intact. Patient is on a Leiva catheter that is patent and intact. Patient is Accucheck Q6 with last blood glucose of 129. IV site is left wrist 22 gauge and is patent and intact. Bed is locked, placed in lowest position, side rails up x3, call light in reach. Will continue to monitor.
[2018-12-17] MEDS: Ciprofloxacin 500mg tab GT SCH ×2 (09:20→20:48)
[2018-12-17] MEDS: Metoprolol 25mg tab ORAL SCH ×2 (09:21→20:48)
[2018-12-17 12:00] VITALS: BP 139/65
--- NOTE | 2018-12-17 12:41 | Nephrology Progress Note ---
Assessment/Plan Problem List: (1) Diabetic nephropathy (2) Hypokalemia (3) Anemia (4) UTI (urinary tract infection) Assessment Electrolyte imbalance UTI Anemia Low K Diabetic Nephropathy, HypoAlbuminemia CAD Plan K Phos , KCl , MgSo4 IV ordered antibiotics avoid nephrotoxics anemia mac per orders Subjective ROS Limited/Unobtainable: No Constitutional: Reports: malaise, weakness Objective Objective Last 24 Hour Vital Signs Date Time Temp Pulse Resp B/P (MAP) Pulse Ox O2 Delivery O2 Flow Rate FiO2 12/17/18 12:00 Nasal Cannula 2.0 12/17/18 10:34 Nasal Cannula 2.0 28 12/17/18 10:34 99 Nasal Cannula 2.0 28 12/17/18 10:32 63 20 Nasal Cannula 2.0 28 12/17/18 09:21 62 133/66 12/17/18 08:00 Nasal Cannula 2.0 12/17/18 08:00 98.1 62 16 132/66 (88) 99 12/17/18 07:48 61 12/17/18 04:00 57 12/17/18 04:00 Nasal Cannula 2.0 12/17/18 04:00 98.3 63 16 136/70 (92) 100 12/17/18 00:00 Nasal Cannula 2.0 12/17/18 00:00 97.4 63 16 138/71 (93) 100 12/17/18 00:00 60 12/16/18 21:05 Nasal Cannula 2.0 28 12/16/18 21:05 60 20 Nasal Cannula 2.0 28 12/16/18 21:05 99 Nasal Cannula 2.0 28 12/16/18 21:00 60 115/45 12/16/18 20:00 56 12/16/18 20:00 97.8 67 16 120/88 (99) 100 12/16/18 20:00 Nasal Cannula 2.0 12/16/18 18:00 Nasal Cannula 2.0 12/16/18 17:50 121/61 12/16/18 16:00 Nasal Cannula 2.0 12/16/18 16:00 98.1 63 17 121/61 (81) 100 12/16/18 15:32 63 Intake and Output 12/16/18 12/17/18 19:00 07:00 Intake Total 890 ml 660 ml Output Total 600 ml 600 ml Balance 290 ml 60 ml Free Water 30 ml IV Total 200 ml Tube Feeding 660 ml 660 ml Output Urine Total 600 ml 600 ml # Bowel Movements 2 1 Laboratory Tests 12/16/18 18:00: C-Reactive Protein, Quantitative 2.4H 12/17/18 04:50: White Blood Count 2.2L, Red Blood Count 2.69L, Hemoglobin 8.4L, Hematocrit 26.2L , Mean Corpuscular Volume 97, Mean Corpuscular Hemoglobin 31.1H, Mean Corpuscular Hemoglobin Concent 31.9L, Red Cell Distribution Width 16.2H, Platelet Count 58L, Mean Platelet Volume 8.2, Neutrophils (%) (Auto) , Lymphocytes (%) (Auto) , Monocytes (%) (Auto) , Eosinophils (%) (Auto) , Basophils (%) (Auto) , Differential Total Cells Counted 100, Neutrophils % ( Manual) 67, Lymphocytes % (Manual) 19L, Monocytes % (Manual) 9, Eosinophils % ( Manual) 3, Basophils % (Manual) 1, Band Neutrophils 1, Platelet Estimate DecreasedL, Platelet Morphology Normal, Red Blood Cell Morphology Normal, Sodium Level 145, Potassium Level 4.0, Chloride Level 110H, Carbon Dioxide Level 33H, Anion Gap 2L, Blood Urea Nitrogen 21H, Creatinine 0.7, Estimat Glomerular Filtration Rate , Glucose Level 142H, Hemoglobin A1c 6.5H, Lactic Acid Level 1.50, Calcium Level 8.8, Total Bilirubin 0.4, Aspartate Amino Transf (AST/SGOT) 31, Alanine Aminotransferase (ALT/SGPT) 15, Alkaline Phosphatase 68, Troponin I 0.033, Total Protein 6.1L, Albumin 2.0L, Globulin 4.1, Albumin/ Globulin Ratio 0.5L, Triglycerides Level 101, Cholesterol Level 136, LDL Cholesterol 92, HDL Cholesterol 39L, Cholesterol/HDL Ratio 3.5, Thyroid Stimulating Hormone (TSH) 2.925, Cortisol AM Sample [Pending] 12/17/18 04:55: Uric Acid 2.0L, Phosphorus Level 2.0L, Magnesium Level 2.0, Ferritin 326, Gamma Glutamyl Transpeptidase 28, Total Creatine Kinase 17L, Pro-B-Type Natriuretic Peptide 2121H, Vitamin B12 Level 1437H, Folate 17.8 Height (Feet): 5 Height (Inches): 2.00 Weight (Pounds): 113 General Appearance: no apparent distress Cardiovascular: normal rate Respiratory/Chest: decreased breath sounds Abdomen: soft Objective no change Parvez Bergman MD Dec 17, 2018 12:41
--- NOTE | 2018-12-17 13:35 | NUR ---
FISH PROCESSING SUPERVISORCRITICAL POWER TECHNICIAN SI:ALTERED MENTAL STATUS VS: BP 147/66, P 56, T 97.5, RR 20, SpO2 100 on 2.0 NC WBC 2.2, RBC 2.69, Uric Acid 2.0, Phosphorus 2.0 IS:Nitroglycerin Ondansetron NovoLog Plavix Ciprofloxacin Lansoprazole SDU STATUS
[2018-12-17 16:00] VITALS: BP 147/66
[2018-12-17] MEDS ORDERED: Sterile Water For Irrig 2000ml IRRIG ONE (16:06)
[2018-12-17] MEDS ORDERED: NS 275ml ONE (16:06)
[2018-12-17] MEDS ORDERED: NS 500ML ONE (16:06)
[2018-12-17] MEDS ORDERED: Tubing IV Secondary IV ONE (16:06)
--- NOTE | 2018-12-17 16:51 | General Progress Note ---
Assessment/Plan Problem List: (1) Dementia with behavioral disturbance ICD Codes: F03.91 - Unspecified dementia with behavioral disturbance SNOMED: 1754776733067 (2) Fever ICD Codes: R50.9 - Fever, unspecified SNOMED: 217245306 (3) Dehydration ICD Codes: E86.0 - Dehydration SNOMED: 36522359 (4) Anemia ICD Codes: D64.9 - Anemia, unspecified SNOMED: 948246744 (5) Thrombocytopenia ICD Codes: D69.6 - Thrombocytopenia, unspecified SNOMED: 021385215 (6) CVA (cerebral vascular accident) ICD Codes: I63.9 - Cerebral infarction, unspecified SNOMED: 480198480 Qualifiers: Qualified Codes: I63.9 - Cerebral infarction, unspecified (7) Elevated troponin I level ICD Codes: R74.8 - Abnormal levels of other serum enzymes SNOMED: 310606032 (8) Diabetic nephropathy 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 SNOMED: 236571385 (9) Feeding by G-tube ICD Codes: Z93.1 - Gastrostomy status SNOMED: 312117224, 513696934, 134645043 Status: progressing Assessment/Plan afebrile low platlet check trop level no wheezing sepsis pna subacute cva pancytopenia abx per id reviewd chart and labs Subjective ROS Limited/Unobtainable: Yes Allergies: Coded Allergies: No Known Allergies (Unverified , 12/14/18) Objective Last 24 Hour Vital Signs Date Time Temp Pulse Resp B/P (MAP) Pulse Ox O2 Delivery O2 Flow Rate FiO2 12/17/18 16:00 Nasal Cannula 2.0 12/17/18 15:40 59 12/17/18 12:00 98.2 60 20 139/65 (89) 94 12/17/18 12:00 Nasal Cannula 2.0 12/17/18 11:57 62 12/17/18 10:34 Nasal Cannula 2.0 28 12/17/18 10:34 99 Nasal Cannula 2.0 28 12/17/18 10:32 63 20 Nasal Cannula 2.0 28 12/17/18 09:21 62 133/66 12/17/18 08:00 Nasal Cannula 2.0 12/17/18 08:00 98.1 62 16 132/66 (88) 99 12/17/18 07:48 61 3/9/19 04:00 57 12/17/18 04:00 Nasal Cannula 2.0 12/17/18 04:00 98.3 63 16 136/70 (92) 100 12/17/18 00:00 Nasal Cannula 2.0 12/17/18 00:00 97.4 63 16 138/71 (93) 100 12/17/18 00:00 60 12/16/18 21:05 Nasal Cannula 2.0 28 12/16/18 21:05 60 20 Nasal Cannula 2.0 28 12/16/18 21:05 99 Nasal Cannula 2.0 28 12/16/18 21:00 60 115/45 12/16/18 20:00 56 12/16/18 20:00 97.8 67 16 120/88 (99) 100 12/16/18 20:00 Nasal Cannula 2.0 12/16/18 18:00 Nasal Cannula 2.0 12/16/18 17:50 121/61 Intake and Output 12/16/18 12/17/18 19:00 07:00 Intake Total 890 ml 660 ml Output Total 600 ml 600 ml Balance 290 ml 60 ml Free Water 30 ml IV Total 200 ml Tube Feeding 660 ml 660 ml Output Urine Total 600 ml 600 ml # Bowel Movements 2 1 Laboratory Tests 12/16/18 18:00: C-Reactive Protein, Quantitative 2.4H 12/17/18 04:50: White Blood Count 2.2L, Red Blood Count 2.69L, Hemoglobin 8.4L, Hematocrit 26.2L , Mean Corpuscular Volume 97, Mean Corpuscular Hemoglobin 31.1H, Mean Corpuscular Hemoglobin Concent 31.9L, Red Cell Distribution Width 16.2H, Platelet Count 58L, Mean Platelet Volume 8.2, Neutrophils (%) (Auto) , Lymphocytes (%) (Auto) , Monocytes (%) (Auto) , Eosinophils (%) (Auto) , Basophils (%) (Auto) , Differential Total Cells Counted 100, Neutrophils % ( Manual) 67, Lymphocytes % (Manual) 19L, Monocytes % (Manual) 9, Eosinophils % ( Manual) 3, Basophils % (Manual) 1, Band Neutrophils 1, Platelet Estimate DecreasedL, Platelet Morphology Normal, Red Blood Cell Morphology Normal, Sodium Level 145, Potassium Level 4.0, Chloride Level 110H, Carbon Dioxide Level 33H, Anion Gap 2L, Blood Urea Nitrogen 21H, Creatinine 0.7, Estimat Glomerular Filtration Rate , Glucose Level 142H, Hemoglobin A1c 6.5H, Lactic Acid Level 1.50, Calcium Level 8.8, Total Bilirubin 0.4, Aspartate Amino Transf (AST/SGOT) 31, Alanine Aminotransferase (ALT/SGPT) 15, Alkaline Phosphatase 68, Troponin I 0.033, Total Protein 6.1L, Albumin 2.0L, Globulin 4.1, Albumin/ Globulin Ratio 0.5L, Triglycerides Level 101, Cholesterol Level 136, LDL Cholesterol 92, HDL Cholesterol 39L, Cholesterol/HDL Ratio 3.5, Thyroid Stimulating Hormone (TSH) 2.925, Cortisol AM Sample 8.1 12/17/18 04:55: Uric Acid 2.0L, Phosphorus Level 2.0L, Magnesium Level 2.0, Ferritin 326, Gamma Glutamyl Transpeptidase 28, Total Creatine Kinase 17L, Pro-B-Type Natriuretic Peptide 2121H, Vitamin B12 Level 1437H, Folate 17.8 Height (Feet): 5 Height (Inches): 2.00 Weight (Pounds): 113 General Appearance: lethargic, confused Yi Asencio MD Dec 17, 2018 16:51
[2018-12-17] MEDS: Nitroglycerin Patch 0.4mg TDERMAL SCH (17:19)
--- NOTE | 2018-12-17 19:25 | NUR ---
HAND-OFF: Report given to Radha Tilley RN.
--- NOTE | 2018-12-17 19:26 | NUR ---
NURSE NOTES: Received patient from DONIS Cruz. Will continue plan of care.
[2018-12-17 20:00] VITALS: BP 142/62
--- NOTE | 2018-12-17 22:48 | Cardiology Progress Note ---
Assessment/Plan Assessment/Plan 1. Sinus tachycardia, most likely secondary to underlying infection/urinary tract infection/pneumonia. The treatment of this condition is treatment of underlying disorder, increase metoprolol to 50mg twice daily. 2. History of cerebrovascular accident, continue clopidogrel and atorvastatin. 3. History of dementia. 4. Dysphagia, status post G-tube. 5. Thrombocytopenia. 6. Diabetes mellitus. 7. CVA with hemiplegia. Subjective Subjective Sinus rhythm at rate of 62. Objective Last 24 Hour Vital Signs Date Time Temp Pulse Resp B/P (MAP) Pulse Ox O2 Delivery O2 Flow Rate FiO2 12/17/18 20:48 62 142/62 12/17/18 20:00 Nasal Cannula 2.0 12/17/18 20:00 97.5 62 14 142/62 (88) 100 12/17/18 19:34 56 12/17/18 19:10 99 Nasal Cannula 2.0 28 12/17/18 19:10 Nasal Cannula 2.0 28 12/17/18 19:09 59 20 Nasal Cannula 2.0 28 12/17/18 17:19 147/66 12/17/18 16:00 97.9 65 18 147/66 (93) 98 12/17/18 16:00 Nasal Cannula 2.0 12/17/18 15:40 59 12/17/18 12:00 98.2 60 20 139/65 (89) 94 12/17/18 12:00 Nasal Cannula 2.0 12/17/18 11:57 62 12/17/18 10:34 Nasal Cannula 2.0 28 12/17/18 10:34 99 Nasal Cannula 2.0 28 12/17/18 10:32 63 20 Nasal Cannula 2.0 28 12/17/18 09:21 62 133/66 12/17/18 08:00 Nasal Cannula 2.0 12/17/18 08:00 98.1 62 16 132/66 (88) 99 12/17/18 07:48 61 12/17/18 04:00 57 12/17/18 04:00 Nasal Cannula 2.0 12/17/18 04:00 98.3 63 16 136/70 (92) 100 12/17/18 00:00 Nasal Cannula 2.0 12/17/18 00:00 97.4 63 16 138/71 (93) 100 12/17/18 00:00 60 Intake and Output 12/16/18 12/17/18 19:00 07:00 Intake Total 890 ml 660 ml Output Total 600 ml 600 ml Balance 290 ml 60 ml Free Water 30 ml IV Total 200 ml Tube Feeding 660 ml 660 ml Output Urine Total 600 ml 600 ml # Bowel Movements 2 1 2D Echo: EF55%, Large left pleural eff., Grade I LVDD, Mild AR/Mod MR/FL,RVSP 37mmHg Laboratory Tests Test 12/17/18 04:50 12/17/18 04:55 White Blood Count 2.2 K/UL (4.8-10.8) L Red Blood Count 2.69 M/UL (4.20-5.40) L Hemoglobin 8.4 G/DL (12.0-16.0) L Hematocrit 26.2 % (37.0-47.0) L Mean Corpuscular Volume 97 FL (80-99) Mean Corpuscular Hemoglobin 31.1 PG (27.0-31.0) H Mean Corpuscular Hemoglobin Concent 31.9 G/DL (32.0-36.0) L Red Cell Distribution Width 16.2 % (11.6-14.8) H Platelet Count 58 K/UL (150-450) L Mean Platelet Volume 8.2 FL (6.5-10.1) Neutrophils (%) (Auto) % (45.0-75.0) Lymphocytes (%) (Auto) % (20.0-45.0) Monocytes (%) (Auto) % (1.0-10.0) Eosinophils (%) (Auto) % (0.0-3.0) Basophils (%) (Auto) % (0.0-2.0) Differential Total Cells Counted 100 Neutrophils % (Manual) 67 % (45-75) Lymphocytes % (Manual) 19 % (20-45) L Monocytes % (Manual) 9 % (1-10) Eosinophils % (Manual) 3 % (0-3) Basophils % (Manual) 1 % (0-2) Band Neutrophils 1 % (0-8) Platelet Estimate Decreased L Platelet Morphology Normal Red Blood Cell Morphology Normal Sodium Level 145 MMOL/L (136-145) Potassium Level 4.0 MMOL/L (3.5-5.1) Chloride Level 110 MMOL/L (98-107) H Carbon Dioxide Level 33 MMOL/L (21-32) H Anion Gap 2 mmol/L (5-15) L Blood Urea Nitrogen 21 mg/dL (7-18) H Creatinine 0.7 MG/DL (0.55-1.30) Estimat Glomerular Filtration Rate mL/min (>60) Glucose Level 142 MG/DL (74-106) H Hemoglobin A1c 6.5 % (4.3-6.0) H Lactic Acid Level 1.50 mmol/L (0.4-2.0) Calcium Level 8.8 MG/DL (8.5-10.1) Total Bilirubin 0.4 MG/DL (0.2-1.0) Aspartate Amino Transf (AST/SGOT) 31 U/L (15-37) Alanine Aminotransferase (ALT/SGPT) 15 U/L (12-78) Alkaline Phosphatase 68 U/L (46-116) Troponin I 0.033 ng/mL (0.000-0.056) Total Protein 6.1 G/DL (6.4-8.2) L Albumin 2.0 G/DL (3.4-5.0) L Globulin 4.1 g/dL Albumin/Globulin Ratio 0.5 (1.0-2.7) L Triglycerides Level 101 MG/DL (30-150) Cholesterol Level 136 MG/DL (< 200) LDL Cholesterol 92 mg/dL (<100) HDL Cholesterol 39 MG/DL (40-60) L Cholesterol/HDL Ratio 3.5 (3.3-4.4) Thyroid Stimulating Hormone (TSH) 2.925 uiU/mL (0.358-3.740) Cortisol AM Sample 8.1 UG/DL Uric Acid 2.0 MG/DL (2.6-7.2) L Phosphorus Level 2.0 MG/DL (2.5-4.9) L Magnesium Level 2.0 MG/DL (1.8-2.4) Ferritin 326 NG/ML (8-388) Gamma Glutamyl Transpeptidase 28 U/L (5-85) Total Creatine Kinase 17 U/L (26-308) L Pro-B-Type Natriuretic Peptide 2121 pg/mL (0-125) H Vitamin B12 Level 1437 PG/ML (193-986) H Folate 17.8 NG/ML (8.6-58.9) Objective HEENT: Atraumatic and normocephalic. Anicteric. Pupils are equal, round, and reactive to light and accommodation. Extraocular muscles intact. NECK: JVP less than 5 cm. No carotid bruit. Carotid upstrokes is 2+ bilaterally. CARDIOVASCULAR: Normal S1, S2. Regular rate and rhythm. Tachycardic. No murmurs, gallops, or rubs. LUNGS: Clear to auscultation bilaterally. ABDOMEN: Soft, nontender, and nondistended. No hepatosplenomegaly. Positive bowel sounds. There is presence of a G-tube. EXTREMITIES: No evidence of edema, clubbing, or cyanosis. Deepak Aldana MD Dec 17, 2018 22:48
[2018-12-18] VITALS: BP 136/62
[2018-12-18] MEDS: NovoLOG Insulin Flexpen SUBQ SCH ×4 (00:21→17:58)
[2018-12-18 04:00] VITALS: BP 144/66
--- NOTE | 2018-12-18 07:20 | NUR ---
HAND-OFF: Report given to Presley Pringle RN.
--- NOTE | 2018-12-18 07:25 | NUR ---
NURSE NOTES: Report received from Abril Tilley RN.Pt resting quietly in bed ,asleep,noted no resp distress,on 2 L NC,no signs of pain or discomfort SR on the monitor,GTF Glucerna 1.2 at 55 ml/hr,no residual noted,Leiva cath draining yellow urine ,IV site to LW intact,skin warm and dry,SR up x2 HOB elevated ,bed lock in lowest position,will continue with plans of care.
[2018-12-18 08:00] VITALS: BP 140/56
--- NOTE | 2018-12-18 08:30 | NUR ---
NURSE NOTES: at bedside,updated re pt's condition,spouse would like to know re plans for discharge,will ask MD when he make rounds.
[2018-12-18] MEDS: Ciprofloxacin 500mg tab GT SCH ×2 (08:56→21:40)
[2018-12-18] MEDS: Metoprolol 25mg tab ORAL SCH (08:59)
--- NOTE | 2018-12-18 10:23 | Infectious Diseases Prog Note ---
Assessment/Plan Assessment/Plan A; Sepsis UTI with E. coli Left hydronephrosis Subacute CVA Dementia Nephrolithiasis Pancytopenia DM type 2 History of DVT s/p IVC filter P; continue Ciprofloxacin urologic evaluation appreciated Subjective ROS Limited/Unobtainable: Yes Allergies: Coded Allergies: No Known Allergies (Unverified , 12/14/18) Objective Vital Signs Last 24 Hour Vital Signs Date Time Temp Pulse Resp B/P (MAP) Pulse Ox O2 Delivery O2 Flow Rate FiO2 12/18/18 08:59 63 140/56 12/18/18 08:00 97.7 63 20 140/56 (84) 100 12/18/18 08:00 Nasal Cannula 2.0 12/18/18 08:00 57 12/18/18 04:00 Nasal Cannula 2.0 12/18/18 04:00 56 12/18/18 04:00 97.9 104 14 144/66 (92) 94 12/18/18 00:00 Nasal Cannula 2.0 12/18/18 00:00 98.5 60 14 136/62 (86) 94 12/17/18 23:51 57 12/17/18 20:48 62 142/62 12/17/18 20:00 Nasal Cannula 2.0 12/17/18 20:00 97.5 62 14 142/62 (88) 100 12/17/18 19:34 56 12/17/18 19:10 99 Nasal Cannula 2.0 28 12/17/18 19:10 Nasal Cannula 2.0 28 12/17/18 19:09 59 20 Nasal Cannula 2.0 28 12/17/18 17:19 147/66 12/17/18 16:00 97.9 65 18 147/66 (93) 98 12/17/18 16:00 Nasal Cannula 2.0 12/17/18 15:40 59 12/17/18 12:00 98.2 60 20 139/65 (89) 94 12/17/18 12:00 Nasal Cannula 2.0 12/17/18 11:57 62 12/17/18 10:34 Nasal Cannula 2.0 28 12/17/18 10:34 99 Nasal Cannula 2.0 28 12/17/18 10:32 63 20 Nasal Cannula 2.0 28 Height (Feet): 5 Height (Inches): 2.00 Weight (Pounds): 113 General Appearance: no acute distress HEENT: mucous membranes moist Respiratory/Chest: lungs clear Cardiovascular: normal rate Abdomen: soft, non tender, other - GT feeding Neurologic/Psychiatric: aphasia Current Medications Medications (Trade) Dose Ordered Sig/Laure Route PRN Reason Start Time Stop Time Status Last Admin Dose Admin Acetaminophen (Tylenol) 650 mg Q4H PRN ORAL Mild Pain/Temp > 100.5 12/14/18 17:15 01/13/19 17:14 Albuterol/ Ipratropium (Albuterol/ Ipratropium) 3 ml Q4H PRN HHN Shortness of Breath 12/14/18 17:15 12/19/18 17:14 Atorvastatin Calcium (Lipitor) 20 mg BEDTIME ORAL 12/18/18 21:00 01/17/19 20:59 Ciprofloxacin (Cipro 500mg tab) 500 mg EVERY 12 HOURS GT 12/16/18 11:00 12/23/18 10:59 12/18/18 08:56 Clopidogrel Bisulfate (Plavix) 75 mg DAILY ORAL 12/15/18 09:00 01/14/19 08:59 12/18/18 08:56 Dextrose (Dextrose 50%) 25 ml Q30M PRN IV Hypoglycemia 12/14/18 17:15 01/13/19 17:14 Dextrose (Dextrose 50%) 50 ml Q30M PRN IV Hypoglycemia 12/14/18 17:15 01/13/19 17:14 Insulin Aspart (NovoLOG) EVERY 6 HOURS SUBQ 12/15/18 00:00 01/13/19 20:59 12/18/18 05:21 Lansoprazole (Prevacid) 30 mg BID GT 12/16/18 18:00 01/15/19 17:59 12/18/18 08:56 Metoprolol Tartrate (Lopressor) 25 mg Q12HR ORAL 12/14/18 21:00 01/13/19 20:59 12/18/18 08:59 Nitroglycerin (Ntg) 1 patch Q24H TDERMAL 12/14/18 17:15 01/13/19 17:14 12/17/18 17:19 Ondansetron HCl (Zofran ODT) 4 mg Q4HR ORAL 12/14/18 21:00 01/13/19 20:59 12/18/18 08:56 Shimon Card MD Dec 18, 2018 10:23
--- NOTE | 2018-12-18 11:30 | NUR ---
NURSE NOTES: Dr Asencio at bedside,informed re pt's spouse wanting to know re discharge plans,said pt will go to [facility] instead of [facility].
[2018-12-18 12:00] VITALS: BP 136/73
[2018-12-18] MEDS ORDERED: HydrALAZINE 25mg tab GT PRN (12:45)
--- NOTE | 2018-12-18 12:45 | Nephrology Progress Note ---
Assessment/Plan Problem List: (1) Diabetic nephropathy (2) Hypokalemia (3) Anemia (4) UTI (urinary tract infection) Assessment Electrolyte imbalance UTI Anemia Low K Diabetic Nephropathy, HypoAlbuminemia CAD Plan no labs today- down on Lopressor dose- add hydralazine K Phos , KCl , MgSo4 IV ordered antibiotics avoid nephrotoxics anemia mac per orders Subjective ROS Limited/Unobtainable: No Constitutional: Reports: malaise, weakness Objective Objective Last 24 Hour Vital Signs Date Time Temp Pulse Resp B/P (MAP) Pulse Ox O2 Delivery O2 Flow Rate FiO2 12/18/18 12:14 Nasal Cannula 2.0 12/18/18 08:59 63 140/56 12/18/18 08:15 Nasal Cannula 2.0 12/18/18 08:15 58 20 Nasal Cannula 2.0 28 12/18/18 08:15 100 Nasal Cannula 2.0 28 12/18/18 08:00 97.7 63 20 140/56 (84) 100 12/18/18 08:00 Nasal Cannula 2.0 12/18/18 08:00 57 12/18/18 04:00 Nasal Cannula 2.0 12/18/18 04:00 56 12/18/18 04:00 97.9 104 14 144/66 (92) 94 12/18/18 00:00 Nasal Cannula 2.0 12/18/18 00:00 98.5 60 14 136/62 (86) 94 12/17/18 23:51 57 12/17/18 20:48 62 142/62 12/17/18 20:00 Nasal Cannula 2.0 12/17/18 20:00 97.5 62 14 142/62 (88) 100 12/17/18 19:34 56 12/17/18 19:10 99 Nasal Cannula 2.0 28 12/17/18 19:10 Nasal Cannula 2.0 28 12/17/18 19:09 59 20 Nasal Cannula 2.0 28 12/17/18 17:19 147/66 12/17/18 16:00 97.9 65 18 147/66 (93) 98 12/17/18 16:00 Nasal Cannula 2.0 12/17/18 15:40 59 Intake and Output 12/17/18 12/18/18 19:00 07:00 Intake Total 750 ml 860 ml Output Total 900 ml 500 ml Balance -150 ml 360 ml Tube Feeding 660 ml 660 ml Other 90 ml 200 ml Output Urine Total 900 ml 500 ml # Bowel Movements 2 Height (Feet): 5 Height (Inches): 2.00 Weight (Pounds): 113 General Appearance: no apparent distress Cardiovascular: normal rate, bradycardia - at times Respiratory/Chest: decreased breath sounds Abdomen: soft Objective no change Parvez Bergman MD Dec 18, 2018 12:45
--- NOTE | 2018-12-18 13:00 | NUR ---
HAND-OFF: Report given to Nancy Cárdenas RN.
--- NOTE | 2018-12-18 13:10 | NUR ---
NURSE NOTES: Received report from Presley Pringle RN. Patient awake in bed, flat affect, non-verbal, unable to follow commands and make needs known. Receiving O2 via nasal cannula @ 2L/min, respirations even and unlabored. GT feeding of Glucerna 1.2 running @ 55 cc/hr, no residuals noted. Leiva catheter patent and draining well. Left wrist 22g saline lock intact and flushed. Bed locked in lowest position with side rails up x 3. All needs attended to. Call light within reach. Will continue to monitor.
--- NOTE | 2018-12-18 13:58 | NUR ---
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 1.8 IS:Atorvastatin Metoprolol Hydralazine HCI Lansoprazole Ciprofloxacin SDU STATUS
--- NOTE | 2018-12-18 14:31 | General Progress Note ---
Assessment/Plan Problem List: (1) Dementia with behavioral disturbance ICD Codes: F03.91 - Unspecified dementia with behavioral disturbance SNOMED: 5956449870055 (2) Fever ICD Codes: R50.9 - Fever, unspecified SNOMED: 254099647 (3) Dehydration ICD Codes: E86.0 - Dehydration SNOMED: 44775774 (4) Anemia ICD Codes: D64.9 - Anemia, unspecified SNOMED: 147567502 (5) Thrombocytopenia ICD Codes: D69.6 - Thrombocytopenia, unspecified SNOMED: 184956362 (6) CVA (cerebral vascular accident) ICD Codes: I63.9 - Cerebral infarction, unspecified SNOMED: 523535735 Qualifiers: Qualified Codes: I63.9 - Cerebral infarction, unspecified (7) Elevated troponin I level ICD Codes: R74.8 - Abnormal levels of other serum enzymes SNOMED: 108649855 (8) Diabetic nephropathy 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 SNOMED: 965710366 (9) Feeding by G-tube ICD Codes: Z93.1 - Gastrostomy status SNOMED: 991250353, 423806000, 569302356 Status: progressing Assessment/Plan niddm nonverbal s/p peg malnutrition pna subacute cva pancytopenia abx per id reviewd chart and labs Subjective ROS Limited/Unobtainable: Yes Constitutional: Reports: no symptoms Allergies: Coded Allergies: No Known Allergies (Unverified , 12/14/18) Objective Last 24 Hour Vital Signs Date Time Temp Pulse Resp B/P (MAP) Pulse Ox O2 Delivery O2 Flow Rate FiO2 12/18/18 12:14 Nasal Cannula 2.0 12/18/18 12:00 97.3 60 16 136/73 (94) 98 12/18/18 12:00 60 12/18/18 08:59 63 140/56 12/18/18 08:15 Nasal Cannula 2.0 12/18/18 08:15 58 20 Nasal Cannula 2.0 28 12/18/18 08:15 100 Nasal Cannula 2.0 28 12/18/18 08:00 97.7 63 20 140/56 (84) 100 12/18/18 08:00 Nasal Cannula 2.0 12/18/18 08:00 57 12/18/18 04:00 Nasal Cannula 2.0 12/18/18 04:00 56 12/18/18 04:00 97.9 104 14 144/66 (92) 94 12/18/18 00:00 Nasal Cannula 2.0 12/18/18 00:00 98.5 60 14 136/62 (86) 94 12/17/18 23:51 57 12/17/18 20:48 62 142/62 12/17/18 20:00 Nasal Cannula 2.0 12/17/18 20:00 97.5 62 14 142/62 (88) 100 12/17/18 19:34 56 12/17/18 19:10 99 Nasal Cannula 2.0 28 12/17/18 19:10 Nasal Cannula 2.0 28 12/17/18 19:09 59 20 Nasal Cannula 2.0 28 12/17/18 17:19 147/66 12/17/18 16:00 97.9 65 18 147/66 (93) 98 12/17/18 16:00 Nasal Cannula 2.0 12/17/18 15:40 59 Intake and Output 12/17/18 12/18/18 19:00 07:00 Intake Total 750 ml 860 ml Output Total 900 ml 500 ml Balance -150 ml 360 ml Tube Feeding 660 ml 660 ml Other 90 ml 200 ml Output Urine Total 900 ml 500 ml # Bowel Movements 2 Laboratory Tests 12/18/18 13:15: C-Reactive Protein, Quantitative 1.8H Height (Feet): 5 Height (Inches): 2.00 Weight (Pounds): 113 Neck: supple Cardiovascular: normal rate Respiratory/Chest: lungs clear Abdomen: soft Yi Asencio MD Dec 18, 2018 14:31
[2018-12-18 16:00] VITALS: BP 135/53
[2018-12-18] MEDS: Nitroglycerin Patch 0.4mg TDERMAL SCH (17:24)
[2018-12-18] MEDS: HydrALAZINE 10mg Tab GT SCH (17:26)
--- NOTE | 2018-12-18 19:16 | NUR ---
HAND-OFF: Report given to Anna Lainez RN.
--- NOTE | 2018-12-18 19:20 | NUR ---
NURSE NOTES: Report received from DONIS Cruz. Observed pt sleeping on the bed. Arousable by voice but non-verbal. SR with compliance monitor. On 2L NC, no signs of SOB. Gtube site intact and running Glucerna 1.2 at 55cc. IV on L W 22G, intact and SL. Bed in the lowest position. Side rails up x3. Will continue to monitor.
[2018-12-18 20:00] VITALS: BP 123/82
[2018-12-18] MEDS ORDERED: Atorvastatin 20mg tab ORAL SCH (21:00)
[2018-12-18] MEDS: Metoprolol Tartrate 12.5mg TAB ORAL SCH (21:42)
--- NOTE | 2018-12-18 22:21 | General Progress Note ---
Assessment/Plan Assessment/Plan Assessment/Plan: # Decreased white blood cell count, leukopenia) --> if the total ANC is less than 2000, consider neupogen --> continue antibiotics with ID service, appreciate recs --> medications have been reviewed --> hepatitis and hiv negative Wbc trend: 4-->2.7-->2.2 # Thrombocytopenia - potential causes multifactorial, evaluate liver and viral etiologies to begin, also could be related to underlying medications patient has received. --> Hep panel and HIV negative --> US abd to evaluate for cirrhosis and hsm reviewed --> Peripheral smear ordered to evaluate for blasts /schistocytes --> abx and other meds have been reviewed --> ok for ppx if plt >50k w/ either heparin or lovenox --> Transfuse if Plt < 20k and fever, or if Plt < 10k without fever # Pancytopenia, likely related to septicemia, appears new baseline 50-70k, several causes possible including viral, medication or intrabone marrow related. --> Cont to monitor plt count for improvement --> US abd: Mild left hydronephrosis. Possible left renal calyceal calculi. Negative for gallstones or dilated ducts Debris noted within the bladder --> Hep panel and HIV are both negative --> given extremely poor condition do not recommend a bone marrow biopsy, have discussed with family 08/01 with --> will rediscuss once sepsis resolves --> transfuse if plt <20k # Anemia of chronic disease. Multifactorial. Since admission Hgb has consistently remained between 8-9. --> Cont to monitor for stability --> Hgb goal above 7. Transfuse prn. --> IV iron completed prior admission and feritin is elevated # DVT of the left leg s/p IVC filter in 07/2018-- superficial femoral vein which is a deep vein, new onset, has not had these symptoms before. Lower hgb and plts --> given decreased h/h, low thrombocytopenia, do not recommend anticoag --> appreciate Dr. Parekh and Mariam arias from prior admission --> smear reviewed # Dehydration. IVF has been administered --> improved # DM OOC --> A1C goal <7 --> Cont on insulin # Bacteremia/prior UTI. --> ID is following. Appreciate recs. --> Pt on IV abx. --> Cultures surveillance as per id # PEG placement 08/04. Greatly appreciate consultation! Subjective ROS Limited/Unobtainable: Yes Allergies: Coded Allergies: No Known Allergies (Unverified , 12/14/18) Subjective 12/16: seen by bedside, awake, comfortable, hgb 8, plt 51 12/18: awake, non verbal on NC, no events, pending labs today Objective Last 24 Hour Vital Signs Date Time Temp Pulse Resp B/P (MAP) Pulse Ox O2 Delivery O2 Flow Rate FiO2 12/18/18 21:42 65 123/82 12/18/18 17:26 135/66 12/18/18 17:24 135/66 12/18/18 16:00 61 12/18/18 16:00 98.2 61 16 135/53 (80) 99 12/18/18 16:00 Nasal Cannula 2.0 12/18/18 12:14 Nasal Cannula 2.0 12/18/18 12:00 97.3 60 16 136/73 (94) 98 12/18/18 12:00 60 12/18/18 08:59 63 140/56 12/18/18 08:15 Nasal Cannula 2.0 12/18/18 08:15 58 20 Nasal Cannula 2.0 28 12/18/18 08:15 100 Nasal Cannula 2.0 28 12/18/18 08:00 97.7 63 20 140/56 (84) 100 12/18/18 08:00 Nasal Cannula 2.0 12/18/18 08:00 57 12/18/18 04:00 Nasal Cannula 2.0 12/18/18 04:00 56 12/18/18 04:00 97.9 104 14 144/66 (92) 94 12/18/18 00:00 Nasal Cannula 2.0 12/18/18 00:00 98.5 60 14 136/62 (86) 94 12/17/18 23:51 57 Intake and Output 12/17/18 12/18/18 19:00 07:00 Intake Total 750 ml 860 ml Output Total 900 ml 500 ml Balance -150 ml 360 ml Tube Feeding 660 ml 660 ml Other 90 ml 200 ml Output Urine Total 900 ml 500 ml # Bowel Movements 2 Laboratory Tests 12/18/18 13:15: C-Reactive Protein, Quantitative 1.8H Height (Feet): 5 Height (Inches): 2.00 Weight (Pounds): 113 Objective PHYSICAL EXAMINATION: VITAL SIGNS: Temperature 97.9, pulse, blood pressure 142/67, and respiratory rate 12. Saturating 100% on 2 L. NC++ GENERAL: She is an elderly demented female, in no acute distress. Nonverbal. HEENT: Normocephalic and atraumatic. Oropharynx is clear. Moist mucous membranes. NECK: Supple without lymphadenopathy. CHEST: Clear, but rales at the bases. HEART: Regular rate and rhythm. ABDOMEN: Soft, nontender, and nondistended. ++ peg EXTREMITIES: No cyanosis, clubbing or edema. Dewayne Gayle MD Dec 18, 2018 22:21
--- NOTE | 2018-12-18 23:53 | Cardiology Progress Note ---
Assessment/Plan Assessment/Plan 1. Sinus tachycardia, resolved. 2. History of cerebrovascular accident, continue clopidogrel and atorvastatin. 3. History of dementia. 4. Dysphagia, status post G-tube. 5. Thrombocytopenia. 6. Diabetes mellitus. 7. CVA with hemiplegia. Subjective Subjective Sinus rhythm at rate of 64. On NC FIO2 28% Objective Last 24 Hour Vital Signs Date Time Temp Pulse Resp B/P (MAP) Pulse Ox O2 Delivery O2 Flow Rate FiO2 12/18/18 21:55 Nasal Cannula 2.0 28 12/18/18 21:55 97 Nasal Cannula 2.0 28 12/18/18 21:55 64 14 Nasal Cannula 2.0 28 12/18/18 21:42 65 123/82 12/18/18 21:00 Nasal Cannula 2.0 12/18/18 20:00 97.7 61 15 123/82 (96) 98 12/18/18 20:00 62 12/18/18 17:26 135/66 12/18/18 17:24 135/66 12/18/18 16:00 61 12/18/18 16:00 98.2 61 16 135/53 (80) 99 12/18/18 16:00 Nasal Cannula 2.0 12/18/18 12:14 Nasal Cannula 2.0 12/18/18 12:00 97.3 60 16 136/73 (94) 98 12/18/18 12:00 60 12/18/18 08:59 63 140/56 12/18/18 08:15 Nasal Cannula 2.0 12/18/18 08:15 58 20 Nasal Cannula 2.0 28 12/18/18 08:15 100 Nasal Cannula 2.0 28 12/18/18 08:00 97.7 63 20 140/56 (84) 100 12/18/18 08:00 Nasal Cannula 2.0 12/18/18 08:00 57 12/18/18 04:00 Nasal Cannula 2.0 12/18/18 04:00 56 12/18/18 04:00 97.9 104 14 144/66 (92) 94 12/18/18 00:00 Nasal Cannula 2.0 12/18/18 00:00 98.5 60 14 136/62 (86) 94 Intake and Output 12/17/18 12/18/18 19:00 07:00 Intake Total 750 ml 860 ml Output Total 900 ml 500 ml Balance -150 ml 360 ml Tube Feeding 660 ml 660 ml Other 90 ml 200 ml Output Urine Total 900 ml 500 ml # Bowel Movements 2 2D Echo: EF55%, Large left pleural eff., Grade I LVDD, Mild AR/Mod MR/ID,RVSP 37mmHg Laboratory Tests Test 12/18/18 13:15 C-Reactive Protein, Quantitative 1.8 mg/dL (0.00-0.90) H Objective HEENT: Atraumatic and normocephalic. Anicteric. Pupils are equal, round, and reactive to light and accommodation. Extraocular muscles intact. NECK: JVP less than 5 cm. No carotid bruit. Carotid upstrokes is 2+ bilaterally. CARDIOVASCULAR: Normal S1, S2. Regular rate and rhythm. Tachycardic. No murmurs, gallops, or rubs. LUNGS: Clear to auscultation bilaterally. ABDOMEN: Soft, nontender, and nondistended. No hepatosplenomegaly. Positive bowel sounds. There is presence of a G-tube. EXTREMITIES: No evidence of edema, clubbing, or cyanosis. Deepak Aldana MD Dec 18, 2018 23:53
[2018-12-19] VITALS (7 sets, daily range): BP systolic 109–139; BP diastolic 54–66
[2018-12-19] MEDS: HydrALAZINE 10mg Tab GT SCH ×5 (00:20→23:49)
[2018-12-19] MEDS: NovoLOG Insulin Flexpen SUBQ SCH ×5 (00:22→23:41)
--- NOTE | 2018-12-19 01:31 | Geriatric Medicine Prog Note ---
DATE: 12/17/2018 NOTE: POOR AUDIO on sliding scale show Levemir to be . OBJECTIVE: VITAL SIGNS: Blood pressure . Blood sugar moderate sliding scale NovoLog q.6 h. Carlos Rodriguez M.D. DR: TRACY JOB#: [id number] CC:
[2018-12-19 04:42] LABS: HEMATOCRIT 25.6 % (37.0-47.0); HEMOGLOBIN 8.3 G/DL (12.0-16.0); MEAN CORPUSCULAR VOLUME 96 FL (80-99); PLATELET COUNT 71 K/UL (150-450); RED BLOOD COUNT 2.66 M/UL (4.20-5.40); RED CELL DISTRIBUTION WIDTH 16.2 % (11.6-14.8); WHITE BLOOD COUNT 2.8 K/UL (4.8-10.8)
[2018-12-19 05:26] LABS: ALANINE AMINOTRANSFERASE 15 U/L (12-78); ALBUMIN 1.9 G/DL (3.4-5.0); ALBUMIN/GLOBULIN RATIO 0.5 (1.0-2.7); ALKALINE PHOSPHATASE 67 U/L (46-116); ANION GAP 4 mmol/L (5-15); ASPARTATE AMINO TRANSFERASE 27 U/L (15-37); BILIRUBIN,TOTAL 0.5 MG/DL (0.2-1.0); BLOOD UREA NITROGEN 21 mg/dL (7-18); CALCIUM 8.5 MG/DL (8.5-10.1); CARBON DIOXIDE 33 MMOL/L (21-32); CHLORIDE 107 MMOL/L (98-107); CREATININE 0.7 MG/DL (0.55-1.30); PHOSPHORUS 2.9 MG/DL (2.5-4.9); POTASSIUM 3.6 MMOL/L (3.5-5.1); SODIUM 143 MMOL/L (136-145)
--- NOTE | 2018-12-19 06:07 | NUR ---
NURSE NOTES: Left a message to regarding pt troponin level. Awaiting call back.
--- NOTE | 2018-12-19 06:33 | General Progress Note ---
Assessment/Plan Problem List: (1) Feeding by G-tube ICD Codes: Z93.1 - Gastrostomy status SNOMED: 994778067, 376893758, 096702747 (2) Altered mental status ICD Codes: R41.82 - Altered mental status, unspecified SNOMED: 983719874 (3) Thrombocytopenia ICD Codes: D69.6 - Thrombocytopenia, unspecified SNOMED: 536652034 (4) Sepsis ICD Codes: A41.9 - Sepsis, unspecified organism SNOMED: 77278443 Assessment/Plan continue Novolog sliding scale every 6 hours no need for basal insulin for now Subjective ROS Limited/Unobtainable: Yes Allergies: Coded Allergies: No Known Allergies (Unverified , 12/14/18) Subjective events noted glucose values are stable Item Value Date Time Bedside Blood Glucose 161 mg/dl H 12/19/18 0600 Bedside Blood Glucose 163 mg/dl H 12/19/18 0022 Bedside Blood Glucose 121 mg/dl H 12/18/18 1758 Bedside Blood Glucose 146 mg/dl H 12/18/18 1213 Bedside Blood Glucose 113 mg/dl 12/18/18 0600 Bedside Blood Glucose 134 mg/dl H 12/18/18 0021 Objective Last 24 Hour Vital Signs Date Time Temp Pulse Resp B/P (MAP) Pulse Ox O2 Delivery O2 Flow Rate FiO2 12/19/18 05:40 135/66 12/19/18 04:00 98.3 64 15 120/66 (84) 100 12/19/18 04:00 61 12/19/18 00:20 120/60 12/19/18 00:00 98.5 65 14 120/60 (80) 100 12/19/18 00:00 57 12/18/18 21:55 Nasal Cannula 2.0 28 12/18/18 21:55 97 Nasal Cannula 2.0 28 12/18/18 21:55 64 14 Nasal Cannula 2.0 28 12/18/18 21:42 65 123/82 12/18/18 21:00 Nasal Cannula 2.0 12/18/18 20:00 97.7 61 15 123/82 (96) 98 12/18/18 20:00 62 12/18/18 17:26 135/66 12/18/18 17:24 135/66 12/18/18 16:00 61 3/10/19 16:00 98.2 61 16 135/53 (80) 99 12/18/18 16:00 Nasal Cannula 2.0 12/18/18 12:14 Nasal Cannula 2.0 12/18/18 12:00 97.3 60 16 136/73 (94) 98 12/18/18 12:00 60 12/18/18 08:59 63 140/56 12/18/18 08:15 Nasal Cannula 2.0 12/18/18 08:15 58 20 Nasal Cannula 2.0 28 12/18/18 08:15 100 Nasal Cannula 2.0 28 12/18/18 08:00 97.7 63 20 140/56 (84) 100 12/18/18 08:00 Nasal Cannula 2.0 12/18/18 08:00 57 Intake and Output 12/18/18 12/19/18 18:59 06:59 Intake Total 830 ml 550 ml Output Total 800 ml Balance 830 ml -250 ml Free Water 60 ml Tube Feeding 660 ml 440 ml Other 170 ml 50 ml Output Urine Total 800 ml Laboratory Tests 12/18/18 13:15: C-Reactive Protein, Quantitative 1.8H 12/19/18 03:40: White Blood Count 2.8L, Red Blood Count 2.66L, Hemoglobin 8.3L, Hematocrit 25.6L , Mean Corpuscular Volume 96, Mean Corpuscular Hemoglobin 31.2H, Mean Corpuscular Hemoglobin Concent 32.4, Red Cell Distribution Width 16.2H, Platelet Count 71L, Mean Platelet Volume 8.4, Neutrophils (%) (Auto) , Lymphocytes (%) (Auto) , Monocytes (%) (Auto) , Eosinophils (%) (Auto) , Basophils (%) (Auto) , Neutrophils % (Manual) [Pending], Lymphocytes % (Manual) [Pending], Platelet Estimate [Pending], Platelet Morphology [Pending], Sodium Level 143, Potassium Level 3.6, Chloride Level 107, Carbon Dioxide Level 33H, Anion Gap 4L, Blood Urea Nitrogen 21H, Creatinine 0.7, Estimat Glomerular Filtration Rate , Glucose Level 150H, Uric Acid 2.9, Calcium Level 8.5, Phosphorus Level 2.9, Magnesium Level 2.0, Total Bilirubin 0.5, Aspartate Amino Transf (AST/SGOT) 27, Alanine Aminotransferase (ALT/SGPT) 15, Alkaline Phosphatase 67, Troponin I 0.075H, Pro-B-Type Natriuretic Peptide 1190H, Total Protein 5.7L, Albumin 1.9L, Globulin 3.8, Albumin/Globulin Ratio 0.5L Height (Feet): 5 Height (Inches): 2.00 Weight (Pounds): 113 General Appearance: no apparent distress Neck: normal alignment Cardiovascular: normal rate Respiratory/Chest: lungs clear Abdomen: normal bowel sounds Objective Current Medications Medications (Trade) Dose Ordered Sig/Laure Route PRN Reason Start Time Stop Time Status Last Admin Dose Admin Acetaminophen (Tylenol) 650 mg Q4H PRN ORAL Mild Pain/Temp > 100.5 12/14/18 17:15 01/13/19 17:14 Albuterol/ Ipratropium (Albuterol/ Ipratropium) 3 ml Q4H PRN HHN Shortness of Breath 12/14/18 17:15 12/19/18 17:14 Atorvastatin Calcium (Lipitor) 20 mg BEDTIME ORAL 12/18/18 21:00 01/17/19 20:59 12/18/18 21:43 Ciprofloxacin (Cipro 500mg tab) 500 mg EVERY 12 HOURS GT 12/16/18 11:00 12/23/18 10:59 12/18/18 21:40 Clopidogrel Bisulfate (Plavix) 75 mg DAILY ORAL 12/15/18 09:00 01/14/19 08:59 12/18/18 08:56 Dextrose (Dextrose 50%) 25 ml Q30M PRN IV Hypoglycemia 12/14/18 17:15 01/13/19 17:14 Dextrose (Dextrose 50%) 50 ml Q30M PRN IV Hypoglycemia 12/14/18 17:15 01/13/19 17:14 Hydralazine HCl (Apresoline) 10 mg Q6HR GT 12/18/18 18:00 01/17/19 17:59 12/19/18 05:40 Hydralazine HCl (Apresoline) 25 mg Q4H PRN GT bp over 160 syst 12/18/18 12:45 01/17/19 12:44 Insulin Aspart (NovoLOG) EVERY 6 HOURS SUBQ 12/15/18 00:00 01/13/19 20:59 12/19/18 05:45 Lansoprazole (Prevacid) 30 mg BID GT 12/16/18 18:00 01/15/19 17:59 12/18/18 17:26 Metoprolol Tartrate (Lopressor) 12.5 mg Q12HR ORAL 12/18/18 21:00 01/13/19 20:59 12/18/18 21:42 Nitroglycerin (Ntg) 1 patch Q24H TDERMAL 12/14/18 17:15 01/13/19 17:14 12/18/18 17:24 Ondansetron HCl (Zofran ODT) 4 mg Q4HR ORAL 12/14/18 21:00 01/13/19 20:59 12/19/18 05:40 Enrique Tafoya MD Dec 19, 2018 06:33
--- NOTE | 2018-12-19 07:20 | NUR ---
NURSE NOTES: Received report from DONIS Lainez. Patient is resting in bed in stable condition. No s/sx of SOB, breathing is even and unlabored. Observed no presence of pain or discomfort at this time. Bed is in lowest position, brakes engaged. Call light is kept within easy reach. Will continue to monitor patient.
--- NOTE | 2018-12-19 07:32 | NUR ---
HAND-OFF: Report given to DONIS Meraz. No acute distress noted at this time.
--- NOTE | 2018-12-19 07:50 | NUR ---
NURSE NOTES: Per night nurse, Dr. Aldana informed of troponin elevation of 0.075, MD acknowledged and gave no new orders at this time. Observed no pain or discomfort, no SOB noted. Noted.
[2018-12-19] MEDS: Ciprofloxacin 500mg tab GT SCH ×2 (09:10→21:15)
[2018-12-19] MEDS: Metoprolol Tartrate 12.5mg TAB ORAL SCH (09:10)
--- NOTE | 2018-12-19 09:58 | Infectious Diseases Prog Note ---
Assessment/Plan Assessment/Plan A; Sepsis UTI with E. coli Left hydronephrosis Subacute CVA Dementia Nephrolithiasis Pancytopenia DM type 2 History of DVT s/p IVC filter P; continue Ciprofloxacin X 4 days urologic evaluation appreciated Subjective ROS Limited/Unobtainable: Yes Allergies: Coded Allergies: No Known Allergies (Unverified , 12/14/18) Objective Vital Signs Last 24 Hour Vital Signs Date Time Temp Pulse Resp B/P (MAP) Pulse Ox O2 Delivery O2 Flow Rate FiO2 12/19/18 09:10 67 109/60 12/19/18 08:00 64 12/19/18 05:40 135/66 12/19/18 04:00 98.3 64 15 120/66 (84) 100 12/19/18 04:00 61 12/19/18 00:20 120/60 12/19/18 00:00 98.5 65 14 120/60 (80) 100 12/19/18 00:00 57 12/18/18 21:55 Nasal Cannula 2.0 28 12/18/18 21:55 97 Nasal Cannula 2.0 28 12/18/18 21:55 64 14 Nasal Cannula 2.0 28 12/18/18 21:42 65 123/82 12/18/18 21:00 Nasal Cannula 2.0 12/18/18 20:00 97.7 61 15 123/82 (96) 98 12/18/18 20:00 62 12/18/18 17:26 135/66 12/18/18 17:24 135/66 12/18/18 16:00 61 12/18/18 16:00 98.2 61 16 135/53 (80) 99 12/18/18 16:00 Nasal Cannula 2.0 12/18/18 12:14 Nasal Cannula 2.0 12/18/18 12:00 97.3 60 16 136/73 (94) 98 12/18/18 12:00 60 Height (Feet): 5 Height (Inches): 2.00 Weight (Pounds): 113 General Appearance: no acute distress HEENT: mucous membranes moist Respiratory/Chest: lungs clear Cardiovascular: normal rate Abdomen: soft, non tender, other - GT feeding Extremities: no edema Neurologic/Psychiatric: aphasia Laboratory Tests Test 12/18/18 13:15 12/19/18 03:40 C-Reactive Protein, Quantitative 1.8 mg/dL (0.00-0.90) H White Blood Count 2.8 K/UL (4.8-10.8) L Red Blood Count 2.66 M/UL (4.20-5.40) L Hemoglobin 8.3 G/DL (12.0-16.0) L Hematocrit 25.6 % (37.0-47.0) L Mean Corpuscular Volume 96 FL (80-99) Mean Corpuscular Hemoglobin 31.2 PG (27.0-31.0) H Mean Corpuscular Hemoglobin Concent 32.4 G/DL (32.0-36.0) Red Cell Distribution Width 16.2 % (11.6-14.8) H Platelet Count 71 K/UL (150-450) L Mean Platelet Volume 8.4 FL (6.5-10.1) Neutrophils (%) (Auto) % (45.0-75.0) Lymphocytes (%) (Auto) % (20.0-45.0) Monocytes (%) (Auto) % (1.0-10.0) Eosinophils (%) (Auto) % (0.0-3.0) Basophils (%) (Auto) % (0.0-2.0) Differential Total Cells Counted 100 Neutrophils % (Manual) 75 % (45-75) Lymphocytes % (Manual) 15 % (20-45) L Monocytes % (Manual) 8 % (1-10) Eosinophils % (Manual) 2 % (0-3) Basophils % (Manual) 0 % (0-2) Band Neutrophils 0 % (0-8) Platelet Estimate Decreased L Platelet Morphology Normal Anisocytosis 1+ Sodium Level 143 MMOL/L (136-145) Potassium Level 3.6 MMOL/L (3.5-5.1) Chloride Level 107 MMOL/L (98-107) Carbon Dioxide Level 33 MMOL/L (21-32) H Anion Gap 4 mmol/L (5-15) L Blood Urea Nitrogen 21 mg/dL (7-18) H Creatinine 0.7 MG/DL (0.55-1.30) Estimat Glomerular Filtration Rate mL/min (>60) Glucose Level 150 MG/DL (74-106) H Uric Acid 2.9 MG/DL (2.6-7.2) Calcium Level 8.5 MG/DL (8.5-10.1) Phosphorus Level 2.9 MG/DL (2.5-4.9) Magnesium Level 2.0 MG/DL (1.8-2.4) Total Bilirubin 0.5 MG/DL (0.2-1.0) Aspartate Amino Transf (AST/SGOT) 27 U/L (15-37) Alanine Aminotransferase (ALT/SGPT) 15 U/L (12-78) Alkaline Phosphatase 67 U/L (46-116) Troponin I 0.075 ng/mL (0.000-0.056) Pro-B-Type Natriuretic Peptide 1190 pg/mL (0-125) H Total Protein 5.7 G/DL (6.4-8.2) L Albumin 1.9 G/DL (3.4-5.0) L Globulin 3.8 g/dL Albumin/Globulin Ratio 0.5 (1.0-2.7) L Current Medications Medications (Trade) Dose Ordered Sig/Laure Route PRN Reason Start Time Stop Time Status Last Admin Dose Admin Acetaminophen (Tylenol) 650 mg Q4H PRN ORAL Mild Pain/Temp > 100.5 12/14/18 17:15 01/13/19 17:14 Albuterol/ Ipratropium (Albuterol/ Ipratropium) 3 ml Q4H PRN HHN Shortness of Breath 12/14/18 17:15 12/19/18 17:14 Atorvastatin Calcium (Lipitor) 20 mg BEDTIME ORAL 12/18/18 21:00 01/17/19 20:59 12/18/18 21:43 Ciprofloxacin (Cipro 500mg tab) 500 mg EVERY 12 HOURS GT 12/16/18 11:00 12/23/18 10:59 12/19/18 09:10 Clopidogrel Bisulfate (Plavix) 75 mg DAILY ORAL 12/15/18 09:00 01/14/19 08:59 12/19/18 09:10 Dextrose (Dextrose 50%) 25 ml Q30M PRN IV Hypoglycemia 12/14/18 17:15 01/13/19 17:14 Dextrose (Dextrose 50%) 50 ml Q30M PRN IV Hypoglycemia 12/14/18 17:15 01/13/19 17:14 Hydralazine HCl (Apresoline) 10 mg Q6HR GT 12/18/18 18:00 4/9/19 17:59 12/19/18 05:40 Hydralazine HCl (Apresoline) 25 mg Q4H PRN GT bp over 160 syst 12/18/18 12:45 01/17/19 12:44 Insulin Aspart (NovoLOG) EVERY 6 HOURS SUBQ 12/15/18 00:00 01/13/19 20:59 12/19/18 05:45 Lansoprazole (Prevacid) 30 mg BID GT 12/16/18 18:00 01/15/19 17:59 12/19/18 09:10 Metoprolol Tartrate (Lopressor) 12.5 mg Q12HR ORAL 12/18/18 21:00 01/13/19 20:59 12/19/18 09:10 Nitroglycerin (Ntg) 1 patch Q24H TDERMAL 12/14/18 17:15 01/13/19 17:14 12/18/18 17:24 Ondansetron HCl (Zofran ODT) 4 mg Q4HR ORAL 12/14/18 21:00 01/13/19 20:59 12/19/18 09:10 Shimon Card MD Dec 19, 2018 09:58
--- NOTE | 2018-12-19 10:50 | NUR ---
TRANSFER TO FLOOR: Patient transferred to Telemetry [id number], per Dr. Asencio. Report given to DONIS Rivero. Belongings and medications given to DONIS Baltazar. Family and informed of transfer. Addendum: 12/19/18 at 1105 by LUC LOUIS RN NURSE NOTES: Correction: patient does not have belongings.
[2018-12-19] MEDS ORDERED: HydrALAZINE 25mg tab GT PRN (11:00)
[2018-12-19] MEDS ORDERED: Albuterol/Ipratropium 3ml neb HHN PRN (11:00)
[2018-12-19] MEDS ORDERED: Acetaminophen 650mg/20.3ml GT PRN (11:00)
--- NOTE | 2018-12-19 11:00 | NUR ---
NURSE NOTES: Received patient from Robinson Meraz. No distress noted. Bed is in lowest position, side rails up X2, and call light is within reach. Will continue to monitor.
--- NOTE | 2018-12-19 11:12 | GI Progress Note ---
Assessment/Plan Problems: (1) Altered mental status ICD Codes: R41.82 - Altered mental status, unspecified SNOMED: 737100834 (2) Anemia ICD Codes: D64.9 - Anemia, unspecified SNOMED: 528452142 (3) Thrombocytopenia ICD Codes: D69.6 - Thrombocytopenia, unspecified SNOMED: 289072167 (4) Malnutrition ICD Codes: E46 - Unspecified protein-calorie malnutrition SNOMED: 58821358 (5) Dehydration ICD Codes: E86.0 - Dehydration SNOMED: 20328324 Status: unchanged Status Narrative Discussed with Dr. Argueta Assessment/Plan Abdominal US reviewed, see full report. Equivocally slightly coarsened hepatic echogenicity, could indicate hepatocellular disease. GTF per RD, tolerating prn transfusions ppi reglan if needed abx per ID supportive care fu labs The patient was seen and examined at bedside and all new and available data was reviewed in the patients chart. I agree with the above findings, impression and plan. (Patient seen earlier today. Signature stamp does not reflect patient encounter time.). - Edwardo Argueta MD Subjective Subjective limited Objective Last 24 Hour Vital Signs Date Time Temp Pulse Resp B/P (MAP) Pulse Ox O2 Delivery O2 Flow Rate FiO2 12/19/18 09:10 67 109/60 12/19/18 09:00 Nasal Cannula 2.0 12/19/18 08:00 64 12/19/18 08:00 98.4 67 15 109/60 (76) 100 12/19/18 05:40 135/66 12/19/18 04:00 98.3 64 15 120/66 (84) 100 12/19/18 04:00 61 12/19/18 00:20 120/60 12/19/18 00:00 98.5 65 14 120/60 (80) 100 12/19/18 00:00 57 12/18/18 21:55 Nasal Cannula 2.0 28 12/18/18 21:55 97 Nasal Cannula 2.0 28 12/18/18 21:55 64 14 Nasal Cannula 2.0 28 12/18/18 21:42 65 123/82 12/18/18 21:00 Nasal Cannula 2.0 12/18/18 20:00 97.7 61 15 123/82 (96) 98 12/18/18 20:00 62 12/18/18 17:26 135/66 12/18/18 17:24 135/66 12/18/18 16:00 61 12/18/18 16:00 98.2 61 16 135/53 (80) 99 12/18/18 16:00 Nasal Cannula 2.0 12/18/18 12:14 Nasal Cannula 2.0 12/18/18 12:00 97.3 60 16 136/73 (94) 98 12/18/18 12:00 60 Intake and Output 12/18/18 12/19/18 18:59 06:59 Intake Total 830 ml 830 ml Output Total 800 ml Balance 830 ml 30 ml Free Water 120 ml Tube Feeding 660 ml 660 ml Other 170 ml 50 ml Output Urine Total 800 ml Laboratory Tests Test 12/18/18 13:15 12/19/18 03:40 C-Reactive Protein, Quantitative 1.8 mg/dL (0.00-0.90) H White Blood Count 2.8 K/UL (4.8-10.8) L Red Blood Count 2.66 M/UL (4.20-5.40) L Hemoglobin 8.3 G/DL (12.0-16.0) L Hematocrit 25.6 % (37.0-47.0) L Mean Corpuscular Volume 96 FL (80-99) Mean Corpuscular Hemoglobin 31.2 PG (27.0-31.0) H Mean Corpuscular Hemoglobin Concent 32.4 G/DL (32.0-36.0) Red Cell Distribution Width 16.2 % (11.6-14.8) H Platelet Count 71 K/UL (150-450) L Mean Platelet Volume 8.4 FL (6.5-10.1) Neutrophils (%) (Auto) % (45.0-75.0) Lymphocytes (%) (Auto) % (20.0-45.0) Monocytes (%) (Auto) % (1.0-10.0) Eosinophils (%) (Auto) % (0.0-3.0) Basophils (%) (Auto) % (0.0-2.0) Differential Total Cells Counted 100 Neutrophils % (Manual) 75 % (45-75) Lymphocytes % (Manual) 15 % (20-45) L Monocytes % (Manual) 8 % (1-10) Eosinophils % (Manual) 2 % (0-3) Basophils % (Manual) 0 % (0-2) Band Neutrophils 0 % (0-8) Platelet Estimate Decreased L Platelet Morphology Normal Anisocytosis 1+ Sodium Level 143 MMOL/L (136-145) Potassium Level 3.6 MMOL/L (3.5-5.1) Chloride Level 107 MMOL/L (98-107) Carbon Dioxide Level 33 MMOL/L (21-32) H Anion Gap 4 mmol/L (5-15) L Blood Urea Nitrogen 21 mg/dL (7-18) H Creatinine 0.7 MG/DL (0.55-1.30) Estimat Glomerular Filtration Rate mL/min (>60) Glucose Level 150 MG/DL (74-106) H Uric Acid 2.9 MG/DL (2.6-7.2) Calcium Level 8.5 MG/DL (8.5-10.1) Phosphorus Level 2.9 MG/DL (2.5-4.9) Magnesium Level 2.0 MG/DL (1.8-2.4) Total Bilirubin 0.5 MG/DL (0.2-1.0) Aspartate Amino Transf (AST/SGOT) 27 U/L (15-37) Alanine Aminotransferase (ALT/SGPT) 15 U/L (12-78) Alkaline Phosphatase 67 U/L (46-116) Troponin I 0.075 ng/mL (0.000-0.056) Pro-B-Type Natriuretic Peptide 1190 pg/mL (0-125) H Total Protein 5.7 G/DL (6.4-8.2) L Albumin 1.9 G/DL (3.4-5.0) L Globulin 3.8 g/dL Albumin/Globulin Ratio 0.5 (1.0-2.7) L Height (Feet): 5 Height (Inches): 2.00 Weight (Pounds): 113 General Appearance: WD/WN, no apparent distress, alert Cardiovascular: normal rate Respiratory/Chest: normal breath sounds, no respiratory distress Abdominal Exam: normal bowel sounds, non tender, soft, GT site - Clean dry and intact Extremities: non-tender Aidee Powell NP Dec 19, 2018 11:12
--- NOTE | 2018-12-19 11:51 | NUR ---
RD ASSESSMENT & RECOMMENDATIONS SEE CARE ACTIVITY FOR COMPLETE ASSESSMENT DAILY ESTIMATED NEEDS: Needs based on Wound, Pulmonary / 50kg 30-35 kcals/kg 2919-2707 total kcals 1.25-1.5 g protein/kg 63-75 g total protein 25-30 mL/kg 4345-0636 total fluid mLs NUTRITION DIAGNOSIS: 1) Increased kcal and protein needs R/T wound healing as evidenced by pt w/ wounds including resolving pressure injury to sacrum, non-blanching erythema with multiple small openings within base and non-blanchable erythema @ lateral R heel. 2) Swallowing difficulty R/T dysphagia as evidenced by pt is PEG dep. 3) Altered nutrition related lab values R/T diabetes as evidenced by elev BGs (150-165), A1C 6.5, Uglu 3+, and POC glu (121-163) CURRENT TF:Glucerna 1.2 @55ml/hr x24 hrs ENTERAL NUTRITION RECOMMENDATIONS: Glucerna 1.2 @55ml/hr x24 hrs to provide 1320ml, 1584 kcal, 79g prot, 1063ml free fluid * Maintain current TF * Flush per MD/ HOB over 30 degrees ADDITIONAL RECOMMENDATIONS: * Per SNF: ht=62", wt=98lbs on 11/16/18 --->> Recalibrate bedscale wt, rec weekly wt monitoring * Wound healing: Add Timbo 1pkt BID * Check lytes daily, replete as needed . . .
--- NOTE | 2018-12-19 11:55 | Pulmonology Progress Note ---
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 (4) DVT (deep venous thrombosis) (5) Anemia (6) Thrombocytopenia (7) S/P IVC filter (8) Dementia with behavioral disturbance (9) Feeding by G-tube Assessment/Plan Optimize pulmonary hygiene/mobilize as tolerated PRN O2 PRN HHN's Abx per ID, F/U Cx's Monitor HH, transfuse as needed F/U GI recs F/U recs --> conservative management of hydronephrosis TF's as tolerated DVT Px: IVCF FC Continue to discuss GOC Subjective Allergies: Coded Allergies: No Known Allergies (Unverified , 12/14/18) Subjective AFVSS stable O2 needs No distress, no cough, no SOB, no F/C, leta TF's Objective Last 24 Hour Vital Signs Date Time Temp Pulse Resp B/P (MAP) Pulse Ox O2 Delivery O2 Flow Rate FiO2 12/19/18 09:10 67 109/60 12/19/18 09:00 Nasal Cannula 2.0 12/19/18 08:00 64 12/19/18 08:00 98.4 67 15 109/60 (76) 100 12/19/18 05:40 135/66 12/19/18 04:00 98.3 64 15 120/66 (84) 100 12/19/18 04:00 61 12/19/18 00:20 120/60 12/19/18 00:00 98.5 65 14 120/60 (80) 100 12/19/18 00:00 57 12/18/18 21:55 Nasal Cannula 2.0 28 12/18/18 21:55 97 Nasal Cannula 2.0 28 12/18/18 21:55 64 14 Nasal Cannula 2.0 28 12/18/18 21:42 65 123/82 12/18/18 21:00 Nasal Cannula 2.0 12/18/18 20:00 97.7 61 15 123/82 (96) 98 12/18/18 20:00 62 12/18/18 17:26 135/66 12/18/18 17:24 135/66 12/18/18 16:00 61 12/18/18 16:00 98.2 61 16 135/53 (80) 99 12/18/18 16:00 Nasal Cannula 2.0 12/18/18 12:14 Nasal Cannula 2.0 12/18/18 12:00 97.3 60 16 136/73 (94) 98 12/18/18 12:00 60 Intake and Output 12/18/18 12/19/18 18:59 06:59 Intake Total 830 ml 830 ml Output Total 800 ml Balance 830 ml 30 ml Free Water 120 ml Tube Feeding 660 ml 660 ml Other 170 ml 50 ml Output Urine Total 800 ml General Appearance: no acute distress, cachetic HEENT: normocephalic, atraumatic, anicteric, mucous membranes moist Respiratory/Chest: chest wall non-tender, lungs clear, normal breath sounds, no respiratory distress, no accessory muscle use Cardiovascular: normal peripheral pulses, normal rate, regular rhythm Abdomen: normal bowel sounds, soft, non tender, no organomegaly, non distended , other - GT Extremities: no cyanosis, no clubbing, no edema Laboratory Tests 12/18/18 13:15: C-Reactive Protein, Quantitative 1.8H 12/19/18 03:40: White Blood Count 2.8L, Red Blood Count 2.66L, Hemoglobin 8.3L, Hematocrit 25.6L , Mean Corpuscular Volume 96, Mean Corpuscular Hemoglobin 31.2H, Mean Corpuscular Hemoglobin Concent 32.4, Red Cell Distribution Width 16.2H, Platelet Count 71L, Mean Platelet Volume 8.4, Neutrophils (%) (Auto) , Lymphocytes (%) (Auto) , Monocytes (%) (Auto) , Eosinophils (%) (Auto) , Basophils (%) (Auto) , Differential Total Cells Counted 100, Neutrophils % ( Manual) 75, Lymphocytes % (Manual) 15L, Monocytes % (Manual) 8, Eosinophils % ( Manual) 2, Basophils % (Manual) 0, Band Neutrophils 0, Platelet Estimate DecreasedL, Platelet Morphology Normal, Anisocytosis 1+, Sodium Level 143, Potassium Level 3.6, Chloride Level 107, Carbon Dioxide Level 33H, Anion Gap 4L , Blood Urea Nitrogen 21H, Creatinine 0.7, Estimat Glomerular Filtration Rate , Glucose Level 150H, Uric Acid 2.9, Calcium Level 8.5, Phosphorus Level 2.9, Magnesium Level 2.0, Total Bilirubin 0.5, Aspartate Amino Transf (AST/SGOT) 27, Alanine Aminotransferase (ALT/SGPT) 15, Alkaline Phosphatase 67, Troponin I 0.075H, Pro-B-Type Natriuretic Peptide 1190H, Total Protein 5.7L, Albumin 1.9L, Globulin 3.8, Albumin/Globulin Ratio 0.5L Current Medications Medications (Trade) Dose Ordered Sig/Laure Route PRN Reason Start Time Stop Time Status Last Admin Dose Admin Acetaminophen (Tylenol) 650 mg Q4H PRN GT Mild Pain/Temp > 100.5 12/19/18 11:00 01/13/19 10:59 Atorvastatin Calcium (Lipitor) 20 mg BEDTIME GT 12/19/18 21:00 01/17/19 20:59 Ciprofloxacin (Cipro 500mg tab) 500 mg EVERY 12 HOURS GT 12/19/18 21:00 12/23/18 10:59 Clopidogrel Bisulfate (Plavix) 75 mg DAILY GT 12/20/18 09:00 01/14/19 08:59 Dextrose (Dextrose 50%) 25 ml Q30M PRN IV Hypoglycemia 12/19/18 11:15 01/13/19 17:14 Dextrose (Dextrose 50%) 50 ml Q30M PRN IV Hypoglycemia 12/19/18 11:15 01/13/19 17:14 Hydralazine HCl (Apresoline) 10 mg Q6HR GT 12/19/18 12:00 01/17/19 17:59 Hydralazine HCl (Apresoline) 25 mg Q4H PRN GT bp over 160 syst 12/19/18 11:00 01/17/19 10:59 Insulin Aspart (NovoLOG) EVERY 6 HOURS SUBQ 12/19/18 12:00 01/13/19 20:59 Lansoprazole (Prevacid) 30 mg BID GT 12/19/18 18:00 01/15/19 17:59 Metoprolol Tartrate (Lopressor) 12.5 mg Q12HR GT 12/19/18 21:00 01/13/19 20:59 Nitroglycerin (Ntg) 1 patch Q24H TDERMAL 12/19/18 17:00 01/13/19 16:59 Ondansetron HCl (Zofran ODT) 4 mg Q4HR ORAL 12/19/18 13:00 01/13/19 20:59 Foreign Parekh MD Dec 19, 2018 11:54
--- NOTE | 2018-12-19 14:09 | NUR ---
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
--- NOTE | 2018-12-19 15:18 | Nephrology Progress Note ---
Assessment/Plan Problem List: (1) Diabetic nephropathy (2) Hypokalemia (3) Anemia (4) UTI (urinary tract infection) Assessment Electrolyte imbalance UTI Anemia Low K Diabetic Nephropathy, HypoAlbuminemia CAD Plan DCLopressor dose- On hydralazine K Phos , KCl , MgSo4 IV ordered antibiotics avoid nephrotoxics anemia mac per orders Subjective ROS Limited/Unobtainable: No Constitutional: Reports: malaise, weakness Objective Objective Last 24 Hour Vital Signs Date Time Temp Pulse Resp B/P (MAP) Pulse Ox O2 Delivery O2 Flow Rate FiO2 12/19/18 12:32 128/54 12/19/18 12:00 54 12/19/18 12:00 98.7 59 19 128/54 (78) 100 12/19/18 09:10 67 109/60 12/19/18 09:00 Nasal Cannula 2.0 12/19/18 08:00 64 12/19/18 08:00 98.4 67 15 109/60 (76) 100 12/19/18 05:40 135/66 12/19/18 04:00 98.3 64 15 120/66 (84) 100 12/19/18 04:00 61 12/19/18 00:20 120/60 12/19/18 00:00 98.5 65 14 120/60 (80) 100 12/19/18 00:00 57 12/18/18 21:55 Nasal Cannula 2.0 28 12/18/18 21:55 97 Nasal Cannula 2.0 28 12/18/18 21:55 64 14 Nasal Cannula 2.0 28 12/18/18 21:42 65 123/82 12/18/18 21:00 Nasal Cannula 2.0 12/18/18 20:00 97.7 61 15 123/82 (96) 98 12/18/18 20:00 62 12/18/18 17:26 135/66 12/18/18 17:24 135/66 12/18/18 16:00 61 12/18/18 16:00 98.2 61 16 135/53 (80) 99 12/18/18 16:00 Nasal Cannula 2.0 Intake and Output 12/18/18 12/19/18 19:00 07:00 Intake Total 880 ml 780 ml Output Total 800 ml 500 ml Balance 80 ml 280 ml Free Water 120 ml Tube Feeding 660 ml 660 ml Other 220 ml Output Urine Total 800 ml 500 ml Laboratory Tests 12/19/18 03:40: White Blood Count 2.8L, Red Blood Count 2.66L, Hemoglobin 8.3L, Hematocrit 25.6L , Mean Corpuscular Volume 96, Mean Corpuscular Hemoglobin 31.2H, Mean Corpuscular Hemoglobin Concent 32.4, Red Cell Distribution Width 16.2H, Platelet Count 71L, Mean Platelet Volume 8.4, Neutrophils (%) (Auto) , Lymphocytes (%) (Auto) , Monocytes (%) (Auto) , Eosinophils (%) (Auto) , Basophils (%) (Auto) , Differential Total Cells Counted 100, Neutrophils % ( Manual) 75, Lymphocytes % (Manual) 15L, Monocytes % (Manual) 8, Eosinophils % ( Manual) 2, Basophils % (Manual) 0, Band Neutrophils 0, Platelet Estimate DecreasedL, Platelet Morphology Normal, Anisocytosis 1+, Sodium Level 143, Potassium Level 3.6, Chloride Level 107, Carbon Dioxide Level 33H, Anion Gap 4L , Blood Urea Nitrogen 21H, Creatinine 0.7, Estimat Glomerular Filtration Rate , Glucose Level 150H, Uric Acid 2.9, Calcium Level 8.5, Phosphorus Level 2.9, Magnesium Level 2.0, Total Bilirubin 0.5, Aspartate Amino Transf (AST/SGOT) 27, Alanine Aminotransferase (ALT/SGPT) 15, Alkaline Phosphatase 67, Troponin I 0.075H, Pro-B-Type Natriuretic Peptide 1190H, Total Protein 5.7L, Albumin 1.9L, Globulin 3.8, Albumin/Globulin Ratio 0.5L Height (Feet): 5 Height (Inches): 2.00 Weight (Pounds): 113 General Appearance: no apparent distress Cardiovascular: bradycardia Respiratory/Chest: decreased breath sounds Abdomen: soft Objective no change Parvez Bergman MD Dec 19, 2018 15:18
--- NOTE | 2018-12-19 15:39 | NUR ---
*-* INSURANCE *-* UPDATED CLINICALS HAVE BEEN FAXED TO: DIANE F: [phone]
[2018-12-19] MEDS: Aspirin Baby 81mg NG SCH (17:21)
[2018-12-19] MEDS: Nitroglycerin Patch 0.4mg TDERMAL SCH (17:21)
--- NOTE | 2018-12-19 17:39 | General Progress Note ---
Assessment/Plan Assessment/Plan Assessment/Plan: # Decreased white blood cell count, Leukopenia --> if the total ANC is less than 2000, consider neupogen --> continue antibiotics with ID service, appreciate recs --> medications have been reviewed --> hepatitis and hiv negative Wbc trend: 4-->2.7-->2.2->2.8 # Thrombocytopenia - potential causes multifactorial, evaluate liver and viral etiologies to begin, also could be related to underlying medications patient has received. --> Hep panel and HIV negative --> US abd to evaluate for cirrhosis and hsm reviewed --> Peripheral smear ordered to evaluate for blasts /schistocytes --> abx and other meds have been reviewed --> ok for ppx if plt >50k w/ either heparin or lovenox --> Transfuse if Plt < 20k and fever, or if Plt < 10k without fever --> PLT trend: 51-->58-->71 # Pancytopenia, likely related to septicemia, appears new baseline 50-70k, several causes possible including viral, medication or intrabone marrow related. --> Cont to monitor plt count for improvement --> US abd: Mild left hydronephrosis. Possible left renal calyceal calculi. Negative for gallstones or dilated ducts Debris noted within the bladder --> Hep panel and HIV are both negative --> given extremely poor condition do not recommend a bone marrow biopsy, have discussed with family 08/01 with --> will rediscuss once sepsis resolves --> transfuse if plt <20k # Anemia of chronic disease. Multifactorial. Since admission Hgb has consistently remained between 8-9. --> Cont to monitor for stability --> Hgb goal above 7. Transfuse prn. --> IV iron completed prior admission and feritin is elevated # DVT of the left leg s/p IVC filter in 07/2018-- superficial femoral vein which is a deep vein, new onset, has not had these symptoms before. Lower hgb and plts --> given decreased h/h, low thrombocytopenia, do not recommend anticoag --> appreciate Dr. Parekh and Mariam arias from prior admission --> smear reviewed # Dehydration. IVF has been administered --> improved # DM OOC --> A1C goal <7 --> Cont on insulin # Bacteremia/prior UTI. --> ID is following. Appreciate recs. --> Pt on IV abx. --> Cultures surveillance as per id # PEG placement 08/04. Greatly appreciate consultation! Subjective Constitutional: Denies: no symptoms, chills, diaphoresis, fever, malaise, weakness, other HEENT: Denies: no symptoms, eye pain, blurred vision, tearing, double vision, ear pain, ear discharge, nose pain, nose congestion, throat pain, throat swelling, mouth pain, mouth swelling, other Cardiovascular: Denies: no symptoms, chest pain, edema, irregular heart rate, lightheadedness, palpitations, syncope, other Respiratory: Denies: no symptoms, cough, orthopnea, shortness of breath, SOB with excertion, SOB at rest, sputum, stridor, wheezing, other Gastrointestinal/Abdominal: Denies: no symptoms, abdomen distended, abdominal pain, black stools, tarry stools, blood in stool, constipated, diarrhea, difficulty swallowing, nausea, poor appetite, poor fluid intake, rectal bleeding , vomiting, other Genitourinary: Denies: no symptoms, burning, discharge, frequency, flank pain, hematuria, incontinence, pain, urgency, other Neurologic/Psychiatric: Denies: no symptoms, anxiety, depressed, emotional problems, headache, numbness, paresthesia, pre-existing deficit, seizure, tingling, tremors, weakness, other Endocrine: Denies: no symptoms, excessive sweating, flushing, intolerance to cold, intolerance to heat, increased hunger, increased thirst, increased urine, unexplained weight gain, unexplained weight loss, other Hematologic/Lymphatic: Denies: no symptoms, anemia, easy bleeding, easy bruising, other Allergies: Coded Allergies: No Known Allergies (Unverified , 12/14/18) Subjective 12/16: seen by bedside, awake, comfortable, hgb 8, plt 51 12/18: awake, non verbal on NC, no events, pending labs today 12/19: Pt is resting in bed, no events reported, plt 71 Objective Last 24 Hour Vital Signs Date Time Temp Pulse Resp B/P (MAP) Pulse Ox O2 Delivery O2 Flow Rate FiO2 12/19/18 17:21 136/58 12/19/18 17:21 136/58 12/19/18 16:00 98.0 61 17 136/58 (84) 100 12/19/18 16:00 62 12/19/18 12:32 128/54 12/19/18 12:00 54 12/19/18 12:00 98.7 59 19 128/54 (78) 100 12/19/18 09:10 67 109/60 12/19/18 09:00 Nasal Cannula 2.0 12/19/18 08:00 64 12/19/18 08:00 98.4 67 15 109/60 (76) 100 12/19/18 05:40 135/66 12/19/18 04:00 98.3 64 15 120/66 (84) 100 12/19/18 04:00 61 12/19/18 00:20 120/60 12/19/18 00:00 98.5 65 14 120/60 (80) 100 12/19/18 00:00 57 12/18/18 21:55 Nasal Cannula 2.0 28 12/18/18 21:55 97 Nasal Cannula 2.0 28 12/18/18 21:55 64 14 Nasal Cannula 2.0 28 12/18/18 21:42 65 123/82 12/18/18 21:00 Nasal Cannula 2.0 12/18/18 20:00 97.7 61 15 123/82 (96) 98 12/18/18 20:00 62 Intake and Output 12/18/18 12/19/18 19:00 07:00 Intake Total 880 ml 780 ml Output Total 800 ml 500 ml Balance 80 ml 280 ml Free Water 120 ml Tube Feeding 660 ml 660 ml Other 220 ml Output Urine Total 800 ml 500 ml Laboratory Tests 12/19/18 03:40: White Blood Count 2.8L, Red Blood Count 2.66L, Hemoglobin 8.3L, Hematocrit 25.6L , Mean Corpuscular Volume 96, Mean Corpuscular Hemoglobin 31.2H, Mean Corpuscular Hemoglobin Concent 32.4, Red Cell Distribution Width 16.2H, Platelet Count 71L, Mean Platelet Volume 8.4, Neutrophils (%) (Auto) , Lymphocytes (%) (Auto) , Monocytes (%) (Auto) , Eosinophils (%) (Auto) , Basophils (%) (Auto) , Differential Total Cells Counted 100, Neutrophils % ( Manual) 75, Lymphocytes % (Manual) 15L, Monocytes % (Manual) 8, Eosinophils % ( Manual) 2, Basophils % (Manual) 0, Band Neutrophils 0, Platelet Estimate DecreasedL, Platelet Morphology Normal, Anisocytosis 1+, Sodium Level 143, Potassium Level 3.6, Chloride Level 107, Carbon Dioxide Level 33H, Anion Gap 4L , Blood Urea Nitrogen 21H, Creatinine 0.7, Estimat Glomerular Filtration Rate , Glucose Level 150H, Uric Acid 2.9, Calcium Level 8.5, Phosphorus Level 2.9, Magnesium Level 2.0, Total Bilirubin 0.5, Aspartate Amino Transf (AST/SGOT) 27, Alanine Aminotransferase (ALT/SGPT) 15, Alkaline Phosphatase 67, Troponin I 0.075H, Pro-B-Type Natriuretic Peptide 1190H, Total Protein 5.7L, Albumin 1.9L, Globulin 3.8, Albumin/Globulin Ratio 0.5L Height (Feet): 5 Height (Inches): 2.00 Weight (Pounds): 113 Objective PHYSICAL EXAMINATION: VITAL SIGNS: Reviewed. Saturating 100% on 2 L. NC++ GENERAL: She is an elderly demented female, in no acute distress. Nonverbal. HEENT: Normocephalic and atraumatic. Oropharynx is clear. Moist mucous membranes. NECK: Supple without lymphadenopathy. CHEST: Clear, but rales at the bases. HEART: Regular rate and rhythm. ABDOMEN: Soft, nontender, and nondistended. ++ peg EXTREMITIES: No cyanosis, clubbing or edema. Dewayne Gayle MD Dec 19, 2018 17:39
--- NOTE | 2018-12-19 19:54 | General Progress Note ---
Assessment/Plan Problem List: (1) Dementia with behavioral disturbance ICD Codes: F03.91 - Unspecified dementia with behavioral disturbance SNOMED: 0561456392882 (2) Fever ICD Codes: R50.9 - Fever, unspecified SNOMED: 400188971 (3) Dehydration ICD Codes: E86.0 - Dehydration SNOMED: 74941415 (4) Anemia ICD Codes: D64.9 - Anemia, unspecified SNOMED: 710697011 (5) Thrombocytopenia ICD Codes: D69.6 - Thrombocytopenia, unspecified SNOMED: 837600851 (6) CVA (cerebral vascular accident) ICD Codes: I63.9 - Cerebral infarction, unspecified SNOMED: 045007090 Qualifiers: Qualified Codes: I63.9 - Cerebral infarction, unspecified (7) Elevated troponin I level ICD Codes: R74.8 - Abnormal levels of other serum enzymes SNOMED: 776131648 (8) Diabetic nephropathy 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 SNOMED: 344045225 (9) Feeding by G-tube ICD Codes: Z93.1 - Gastrostomy status SNOMED: 328896030, 908381118, 460684577 Status: progressing Assessment/Plan kavitha la mikaela no bleeding malnurished pna subacute cva pancytopenia check trop Subjective ROS Limited/Unobtainable: Yes Allergies: Coded Allergies: No Known Allergies (Unverified , 12/14/18) Objective Last 24 Hour Vital Signs Date Time Temp Pulse Resp B/P (MAP) Pulse Ox O2 Delivery O2 Flow Rate FiO2 12/19/18 17:21 136/58 12/19/18 17:21 136/58 12/19/18 16:00 98.0 61 17 136/58 (84) 100 12/19/18 16:00 62 12/19/18 12:32 128/54 12/19/18 12:00 54 12/19/18 12:00 98.7 59 19 128/54 (78) 100 12/19/18 09:10 67 109/60 12/19/18 09:00 Nasal Cannula 2.0 12/19/18 08:00 64 12/19/18 08:00 98.4 67 15 109/60 (76) 100 12/19/18 05:40 135/66 12/19/18 04:00 98.3 64 15 120/66 (84) 100 12/19/18 04:00 61 12/19/18 00:20 120/60 12/19/18 00:00 98.5 65 14 120/60 (80) 100 12/19/18 00:00 57 12/18/18 21:55 Nasal Cannula 2.0 28 12/18/18 21:55 97 Nasal Cannula 2.0 28 12/18/18 21:55 64 14 Nasal Cannula 2.0 28 12/18/18 21:42 65 123/82 12/18/18 21:00 Nasal Cannula 2.0 12/18/18 20:00 97.7 61 15 123/82 (96) 98 12/18/18 20:00 62 Intake and Output 12/18/18 12/19/18 19:00 07:00 Intake Total 880 ml 780 ml Output Total 800 ml 500 ml Balance 80 ml 280 ml Free Water 120 ml Tube Feeding 660 ml 660 ml Other 220 ml Output Urine Total 800 ml 500 ml Laboratory Tests 12/19/18 03:40: White Blood Count 2.8L, Red Blood Count 2.66L, Hemoglobin 8.3L, Hematocrit 25.6L , Mean Corpuscular Volume 96, Mean Corpuscular Hemoglobin 31.2H, Mean Corpuscular Hemoglobin Concent 32.4, Red Cell Distribution Width 16.2H, Platelet Count 71L, Mean Platelet Volume 8.4, Neutrophils (%) (Auto) , Lymphocytes (%) (Auto) , Monocytes (%) (Auto) , Eosinophils (%) (Auto) , Basophils (%) (Auto) , Differential Total Cells Counted 100, Neutrophils % ( Manual) 75, Lymphocytes % (Manual) 15L, Monocytes % (Manual) 8, Eosinophils % ( Manual) 2, Basophils % (Manual) 0, Band Neutrophils 0, Platelet Estimate DecreasedL, Platelet Morphology Normal, Anisocytosis 1+, Sodium Level 143, Potassium Level 3.6, Chloride Level 107, Carbon Dioxide Level 33H, Anion Gap 4L , Blood Urea Nitrogen 21H, Creatinine 0.7, Estimat Glomerular Filtration Rate , Glucose Level 150H, Uric Acid 2.9, Calcium Level 8.5, Phosphorus Level 2.9, Magnesium Level 2.0, Total Bilirubin 0.5, Aspartate Amino Transf (AST/SGOT) 27, Alanine Aminotransferase (ALT/SGPT) 15, Alkaline Phosphatase 67, Troponin I 0.075H, Pro-B-Type Natriuretic Peptide 1190H, Total Protein 5.7L, Albumin 1.9L, Globulin 3.8, Albumin/Globulin Ratio 0.5L Height (Feet): 5 Height (Inches): 2.00 Weight (Pounds): 113 General Appearance: lethargic, confused Neck: supple Cardiovascular: normal rate Respiratory/Chest: lungs clear Yi Asencio MD Dec 19, 2018 19:54
[2018-12-19] MEDS ORDERED: Metoprolol Tartrate 12.5mg TAB GT SCH (21:00)
[2018-12-19] MEDS: Atorvastatin 20mg tab GT SCH (21:15)
--- NOTE | 2018-12-19 23:09 | Cardiology Progress Note ---
Assessment/Plan Assessment/Plan 1. Sinus tachycardia, resolved. 2. History of cerebrovascular accident, continue clopidogrel and atorvastatin. 3. History of dementia. 4. Dysphagia, status post G-tube. 5. Thrombocytopenia. 6. Diabetes mellitus. 7. CVA with hemiplegia. Subjective Subjective Sinus rhythm at rate of 67. On NC oxygen. Objective Last 24 Hour Vital Signs Date Time Temp Pulse Resp B/P (MAP) Pulse Ox O2 Delivery O2 Flow Rate FiO2 12/19/18 20:00 67 12/19/18 17:21 136/58 12/19/18 17:21 136/58 12/19/18 16:00 98.0 61 17 136/58 (84) 100 12/19/18 16:00 62 12/19/18 12:32 128/54 12/19/18 12:00 54 12/19/18 12:00 98.7 59 19 128/54 (78) 100 12/19/18 09:10 67 109/60 12/19/18 09:00 Nasal Cannula 2.0 12/19/18 08:00 64 12/19/18 08:00 98.4 67 15 109/60 (76) 100 12/19/18 05:40 135/66 12/19/18 04:00 98.3 64 15 120/66 (84) 100 12/19/18 04:00 61 12/19/18 00:20 120/60 12/19/18 00:00 98.5 65 14 120/60 (80) 100 12/19/18 00:00 57 Intake and Output 12/18/18 12/19/18 19:00 07:00 Intake Total 880 ml 780 ml Output Total 800 ml 500 ml Balance 80 ml 280 ml Free Water 120 ml Tube Feeding 660 ml 660 ml Other 220 ml Output Urine Total 800 ml 500 ml 2D Echo: EF55%, Large left pleural eff., Grade I LVDD, Mild AR/Mod MR/KY,RVSP 37mmHg Laboratory Tests Test 12/19/18 03:40 White Blood Count 2.8 K/UL (4.8-10.8) L Red Blood Count 2.66 M/UL (4.20-5.40) L Hemoglobin 8.3 G/DL (12.0-16.0) L Hematocrit 25.6 % (37.0-47.0) L Mean Corpuscular Volume 96 FL (80-99) Mean Corpuscular Hemoglobin 31.2 PG (27.0-31.0) H Mean Corpuscular Hemoglobin Concent 32.4 G/DL (32.0-36.0) Red Cell Distribution Width 16.2 % (11.6-14.8) H Platelet Count 71 K/UL (150-450) L Mean Platelet Volume 8.4 FL (6.5-10.1) Neutrophils (%) (Auto) % (45.0-75.0) Lymphocytes (%) (Auto) % (20.0-45.0) Monocytes (%) (Auto) % (1.0-10.0) Eosinophils (%) (Auto) % (0.0-3.0) Basophils (%) (Auto) % (0.0-2.0) Differential Total Cells Counted 100 Neutrophils % (Manual) 75 % (45-75) Lymphocytes % (Manual) 15 % (20-45) L Monocytes % (Manual) 8 % (1-10) Eosinophils % (Manual) 2 % (0-3) Basophils % (Manual) 0 % (0-2) Band Neutrophils 0 % (0-8) Platelet Estimate Decreased L Platelet Morphology Normal Anisocytosis 1+ Sodium Level 143 MMOL/L (136-145) Potassium Level 3.6 MMOL/L (3.5-5.1) Chloride Level 107 MMOL/L (98-107) Carbon Dioxide Level 33 MMOL/L (21-32) H Anion Gap 4 mmol/L (5-15) L Blood Urea Nitrogen 21 mg/dL (7-18) H Creatinine 0.7 MG/DL (0.55-1.30) Estimat Glomerular Filtration Rate mL/min (>60) Glucose Level 150 MG/DL (74-106) H Uric Acid 2.9 MG/DL (2.6-7.2) Calcium Level 8.5 MG/DL (8.5-10.1) Phosphorus Level 2.9 MG/DL (2.5-4.9) Magnesium Level 2.0 MG/DL (1.8-2.4) Total Bilirubin 0.5 MG/DL (0.2-1.0) Aspartate Amino Transf (AST/SGOT) 27 U/L (15-37) Alanine Aminotransferase (ALT/SGPT) 15 U/L (12-78) Alkaline Phosphatase 67 U/L (46-116) Troponin I 0.075 ng/mL (0.000-0.056) Pro-B-Type Natriuretic Peptide 1190 pg/mL (0-125) H Total Protein 5.7 G/DL (6.4-8.2) L Albumin 1.9 G/DL (3.4-5.0) L Globulin 3.8 g/dL Albumin/Globulin Ratio 0.5 (1.0-2.7) L Objective HEENT: Atraumatic and normocephalic. Anicteric. Pupils are equal, round, and reactive to light and accommodation. Extraocular muscles intact. NECK: JVP less than 5 cm. No carotid bruit. Carotid upstrokes is 2+ bilaterally. CARDIOVASCULAR: Normal S1, S2. Regular rate and rhythm. Tachycardic. No murmurs, gallops, or rubs. LUNGS: Clear to auscultation bilaterally. ABDOMEN: Soft, nontender, and nondistended. No hepatosplenomegaly. Positive bowel sounds. There is presence of a G-tube. EXTREMITIES: No evidence of edema, clubbing, or cyanosis. Deepak Aldana MD Dec 19, 2018 23:09
[2018-12-20 04:00] VITALS: BP 144/66
[2018-12-20] MEDS: HydrALAZINE 10mg Tab GT SCH ×3 (05:35→17:26)
[2018-12-20] MEDS: NovoLOG Insulin Flexpen SUBQ SCH ×3 (05:37→17:28)
--- NOTE | 2018-12-20 07:25 | NUR ---
HAND-OFF: Report given to Flora DYKES. Endorsed plan of care.
[2018-12-20 07:29] LABS: HEMATOCRIT 27.6 % (37.0-47.0); HEMOGLOBIN 8.8 G/DL (12.0-16.0); MEAN CORPUSCULAR VOLUME 97 FL (80-99); PLATELET COUNT 71 K/UL (150-450); RED BLOOD COUNT 2.84 M/UL (4.20-5.40); RED CELL DISTRIBUTION WIDTH 16.1 % (11.6-14.8); WHITE BLOOD COUNT 2.8 K/UL (4.8-10.8)
--- NOTE | 2018-12-20 07:30 | NUR ---
NURSE NOTES: Received pt from DONIS Lobato. Pt in stable condition on 2L NC, asleep, with no cardiopulmonary distress noted. GT noted running Glucerna 1.2 at 55cc/hr. No gastric residuals noted and GT flushed with 50cc of H20. Feeding resumed. F/C noted draining yellow urine. 20g R and L wrist IVs, saline locked noted. Bed in lowest position. Side rails up x 3. Call light within reach. Will continue to monitor pt.
[2018-12-20 07:55] LABS: ANION GAP 4 mmol/L (5-15); BLOOD UREA NITROGEN 21 mg/dL (7-18); CALCIUM 8.9 MG/DL (8.5-10.1); CARBON DIOXIDE 32 MMOL/L (21-32); CHLORIDE 107 MMOL/L (98-107); CREATININE 0.7 MG/DL (0.55-1.30); POTASSIUM 3.3 MMOL/L (3.5-5.1); SODIUM 143 MMOL/L (136-145)
[2018-12-20 08:00] VITALS: BP 131/67
[2018-12-20] MEDS: Aspirin Baby 81mg NG SCH (09:11)
[2018-12-20] MEDS: Ciprofloxacin 500mg tab GT SCH ×2 (09:11→21:55)
[2018-12-20] MEDS ORDERED: Albuterol/Ipratropium 3ml neb HHN PRN (10:45)
--- NOTE | 2018-12-20 10:45 | Pulmonology Progress Note ---
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 (4) DVT (deep venous thrombosis) (5) Anemia (6) Thrombocytopenia (7) S/P IVC filter (8) Dementia with behavioral disturbance (9) Feeding by G-tube Assessment/Plan Optimize pulmonary hygiene/mobilize as tolerated PRN O2 PRN HHN's Abx per ID, F/U Cx's Monitor HH, transfuse as needed F/U GI recs F/U recs --> conservative management of hydronephrosis TF's as tolerated DVT Px: IVCF FC Continue to discuss GOC Subjective Allergies: Coded Allergies: No Known Allergies (Unverified , 12/14/18) Subjective AFVSS stable O2 needs No distress, no cough, no SOB, no F/C, leta TF's Objective Last 24 Hour Vital Signs Date Time Temp Pulse Resp B/P (MAP) Pulse Ox O2 Delivery O2 Flow Rate FiO2 12/20/18 08:00 98.6 90 18 131/67 (88) 100 12/20/18 08:00 89 12/20/18 05:35 144/66 12/20/18 04:00 83 12/20/18 04:00 98.3 70 18 144/66 (92) 100 12/20/18 00:00 70 12/19/18 23:52 97.7 66 18 131/57 (81) 100 12/19/18 23:49 131/57 12/19/18 22:49 98 Nasal Cannula 2.0 28 12/19/18 22:49 Nasal Cannula 2.0 28 12/19/18 22:49 66 20 Nasal Cannula 2.0 28 12/19/18 21:00 Nasal Cannula 2.0 12/19/18 20:00 67 12/19/18 20:00 98.5 68 18 139/56 (83) 100 12/19/18 17:21 136/58 12/19/18 17:21 136/58 12/19/18 16:00 98.0 61 17 136/58 (84) 100 12/19/18 16:00 62 12/19/18 12:32 128/54 12/19/18 12:00 54 12/19/18 12:00 98.7 59 19 128/54 (78) 100 Intake and Output 12/19/18 12/20/18 18:59 06:59 Intake Total 55 ml Output Total 1200 ml Balance -1145 ml Tube Feeding 55 ml Output Urine Total 1200 ml General Appearance: no acute distress, cachetic - non-verbal HEENT: normocephalic, atraumatic, anicteric, mucous membranes moist Respiratory/Chest: chest wall non-tender, lungs clear, normal breath sounds, no respiratory distress, no accessory muscle use Cardiovascular: normal peripheral pulses, normal rate, regular rhythm Abdomen: normal bowel sounds, soft, non tender, no organomegaly, non distended , other - GT Extremities: no cyanosis, no clubbing, other - 1+ SEUN Laboratory Tests 12/20/18 06:19: White Blood Count 2.8L, Red Blood Count 2.84L, Hemoglobin 8.8L, Hematocrit 27.6L , Mean Corpuscular Volume 97, Mean Corpuscular Hemoglobin 31.0, Mean Corpuscular Hemoglobin Concent 31.9L, Red Cell Distribution Width 16.1H, Platelet Count 71L, Mean Platelet Volume 8.1, Neutrophils (%) (Auto) , Lymphocytes (%) (Auto) , Monocytes (%) (Auto) , Eosinophils (%) (Auto) , Basophils (%) (Auto) , Differential Total Cells Counted 100, Neutrophils % ( Manual) 78H, Lymphocytes % (Manual) 13L, Monocytes % (Manual) 7, Eosinophils % ( Manual) 2, Basophils % (Manual) 0, Band Neutrophils 0, Platelet Estimate DecreasedL, Platelet Morphology Normal, Hypochromasia 2+, Anisocytosis 1+, Sodium Level 143, Potassium Level 3.3L, Chloride Level 107, Carbon Dioxide Level 32, Anion Gap 4L, Blood Urea Nitrogen 21H, Creatinine 0.7, Estimat Glomerular Filtration Rate , Glucose Level 170H, Calcium Level 8.9 Current Medications Medications (Trade) Dose Ordered Sig/Laure Route PRN Reason Start Time Stop Time Status Last Admin Dose Admin Acetaminophen (Tylenol) 650 mg Q4H PRN GT Mild Pain/Temp > 100.5 12/19/18 11:00 01/13/19 10:59 Aspirin (ASA) 81 mg DAILY NG 12/19/18 15:30 01/18/19 15:29 12/20/18 09:11 Atorvastatin Calcium (Lipitor) 20 mg BEDTIME GT 12/19/18 21:00 01/17/19 20:59 12/19/18 21:15 Ciprofloxacin (Cipro 500mg tab) 500 mg EVERY 12 HOURS GT 12/19/18 21:00 12/23/18 10:59 12/20/18 09:11 Clopidogrel Bisulfate (Plavix) 75 mg DAILY GT 12/20/18 09:00 01/14/19 08:59 12/20/18 09:11 Dextrose (Dextrose 50%) 25 ml Q30M PRN IV Hypoglycemia 12/19/18 11:15 01/13/19 17:14 Dextrose (Dextrose 50%) 50 ml Q30M PRN IV Hypoglycemia 12/19/18 11:15 01/13/19 17:14 Hydralazine HCl (Apresoline) 10 mg Q6HR GT 12/19/18 12:00 01/17/19 17:59 12/20/18 05:35 Hydralazine HCl (Apresoline) 25 mg Q4H PRN GT bp over 160 syst 12/19/18 11:00 01/17/19 10:59 Insulin Aspart (NovoLOG) EVERY 6 HOURS SUBQ 12/19/18 12:00 01/13/19 20:59 12/20/18 05:37 Lansoprazole (Prevacid) 30 mg BID GT 12/19/18 18:00 01/15/19 17:59 12/20/18 09:12 Nitroglycerin (Ntg) 1 patch Q24H TDERMAL 12/19/18 17:00 01/13/19 16:59 12/19/18 17:21 Ondansetron HCl (Zofran ODT) 4 mg Q4HR ORAL 12/19/18 13:00 01/13/19 20:59 12/20/18 09:10 Foreign Parekh MD Dec 20, 2018 10:45
--- NOTE | 2018-12-20 10:53 | GI Progress Note ---
Assessment/Plan Problems: (1) Altered mental status ICD Codes: R41.82 - Altered mental status, unspecified SNOMED: 907744910 (2) Anemia ICD Codes: D64.9 - Anemia, unspecified SNOMED: 482602883 (3) Thrombocytopenia ICD Codes: D69.6 - Thrombocytopenia, unspecified SNOMED: 533432213 (4) Malnutrition ICD Codes: E46 - Unspecified protein-calorie malnutrition SNOMED: 65374952 (5) Dehydration ICD Codes: E86.0 - Dehydration SNOMED: 59956507 Status: stable, unchanged Status Narrative Discussed with Dr. Argueta Assessment/Plan Abdominal US reviewed, see full report. Equivocally slightly coarsened hepatic echogenicity, could indicate hepatocellular disease. GTF per RD, tolerating prn transfusions ppi reglan if needed abx per ID supportive care fu labs DC planning The patient was seen and examined at bedside and all new and available data was reviewed in the patients chart. I agree with the above findings, impression and plan. (Patient seen earlier today. Signature stamp does not reflect patient encounter time.). - Edwardo Argueta MD Subjective Subjective limited Objective Last 24 Hour Vital Signs Date Time Temp Pulse Resp B/P (MAP) Pulse Ox O2 Delivery O2 Flow Rate FiO2 12/20/18 08:00 98.6 90 18 131/67 (88) 100 12/20/18 08:00 89 12/20/18 05:35 144/66 12/20/18 04:00 83 12/20/18 04:00 98.3 70 18 144/66 (92) 100 12/20/18 00:00 70 12/19/18 23:52 97.7 66 18 131/57 (81) 100 12/19/18 23:49 131/57 12/19/18 22:49 98 Nasal Cannula 2.0 28 12/19/18 22:49 Nasal Cannula 2.0 28 12/19/18 22:49 66 20 Nasal Cannula 2.0 28 12/19/18 21:00 Nasal Cannula 2.0 12/19/18 20:00 67 12/19/18 20:00 98.5 68 18 139/56 (83) 100 12/19/18 17:21 136/58 12/19/18 17:21 136/58 12/19/18 16:00 98.0 61 17 136/58 (84) 100 12/19/18 16:00 62 12/19/18 12:32 128/54 12/19/18 12:00 54 12/19/18 12:00 98.7 59 19 128/54 (78) 100 Intake and Output 12/19/18 12/20/18 18:59 06:59 Intake Total 55 ml Output Total 1200 ml Balance -1145 ml Tube Feeding 55 ml Output Urine Total 1200 ml Laboratory Tests Test 12/20/18 06:19 White Blood Count 2.8 K/UL (4.8-10.8) L Red Blood Count 2.84 M/UL (4.20-5.40) L Hemoglobin 8.8 G/DL (12.0-16.0) L Hematocrit 27.6 % (37.0-47.0) L Mean Corpuscular Volume 97 FL (80-99) Mean Corpuscular Hemoglobin 31.0 PG (27.0-31.0) Mean Corpuscular Hemoglobin Concent 31.9 G/DL (32.0-36.0) L Red Cell Distribution Width 16.1 % (11.6-14.8) H Platelet Count 71 K/UL (150-450) L Mean Platelet Volume 8.1 FL (6.5-10.1) Neutrophils (%) (Auto) % (45.0-75.0) Lymphocytes (%) (Auto) % (20.0-45.0) Monocytes (%) (Auto) % (1.0-10.0) Eosinophils (%) (Auto) % (0.0-3.0) Basophils (%) (Auto) % (0.0-2.0) Differential Total Cells Counted 100 Neutrophils % (Manual) 78 % (45-75) H Lymphocytes % (Manual) 13 % (20-45) L Monocytes % (Manual) 7 % (1-10) Eosinophils % (Manual) 2 % (0-3) Basophils % (Manual) 0 % (0-2) Band Neutrophils 0 % (0-8) Platelet Estimate Decreased L Platelet Morphology Normal Hypochromasia 2+ Anisocytosis 1+ Sodium Level 143 MMOL/L (136-145) Potassium Level 3.3 MMOL/L (3.5-5.1) L Chloride Level 107 MMOL/L (98-107) Carbon Dioxide Level 32 MMOL/L (21-32) Anion Gap 4 mmol/L (5-15) L Blood Urea Nitrogen 21 mg/dL (7-18) H Creatinine 0.7 MG/DL (0.55-1.30) Estimat Glomerular Filtration Rate mL/min (>60) Glucose Level 170 MG/DL (74-106) H Calcium Level 8.9 MG/DL (8.5-10.1) Height (Feet): 5 Height (Inches): 2.00 Weight (Pounds): 113 General Appearance: WD/WN, no apparent distress, alert Cardiovascular: normal rate Respiratory/Chest: normal breath sounds, no respiratory distress Abdominal Exam: normal bowel sounds, non tender, soft, GT site - Clean dry and intact Extremities: normal range of motion, non-tender Objective Patient had bowel movement today Aidee Powell NP Dec 20, 2018 10:53
[2018-12-20 12:00] VITALS: BP 131/73
--- NOTE | 2018-12-20 12:05 | Nephrology Progress Note ---
Assessment/Plan Problem List: (1) Diabetic nephropathy (2) Hypokalemia (3) Anemia (4) UTI (urinary tract infection) Assessment Electrolyte imbalance UTI Anemia Low K Diabetic Nephropathy, HypoAlbuminemia CAD Plan DC Lopressor dose- On hydralazine K Phos , KCl , MgSo4 IV as needed antibiotics avoid nephrotoxics anemia mac per orders Subjective ROS Limited/Unobtainable: No Constitutional: Reports: malaise Objective Objective Last 24 Hour Vital Signs Date Time Temp Pulse Resp B/P (MAP) Pulse Ox O2 Delivery O2 Flow Rate FiO2 12/20/18 09:00 Nasal Cannula 2.0 12/20/18 08:54 72 16 Nasal Cannula 2.0 28 12/20/18 08:54 97 Nasal Cannula 2.0 28 12/20/18 08:54 Nasal Cannula 2.0 28 12/20/18 08:00 98.6 90 18 131/67 (88) 100 12/20/18 08:00 89 12/20/18 05:35 144/66 12/20/18 04:00 83 12/20/18 04:00 98.3 70 18 144/66 (92) 100 12/20/18 00:00 70 12/19/18 23:52 97.7 66 18 131/57 (81) 100 12/19/18 23:49 131/57 12/19/18 22:49 98 Nasal Cannula 2.0 28 12/19/18 22:49 Nasal Cannula 2.0 28 12/19/18 22:49 66 20 Nasal Cannula 2.0 28 12/19/18 21:00 Nasal Cannula 2.0 12/19/18 20:00 67 12/19/18 20:00 98.5 68 18 139/56 (83) 100 12/19/18 17:21 136/58 12/19/18 17:21 136/58 12/19/18 16:00 98.0 61 17 136/58 (84) 100 12/19/18 16:00 62 12/19/18 12:32 128/54 Intake and Output 12/19/18 12/20/18 18:59 06:59 Intake Total 55 ml Output Total 1200 ml Balance -1145 ml Tube Feeding 55 ml Output Urine Total 1200 ml Current Medications Medications (Trade) Dose Ordered Sig/Laure Route PRN Reason Start Time Stop Time Status Last Admin Dose Admin Acetaminophen (Tylenol) 650 mg Q4H PRN GT Mild Pain/Temp > 100.5 12/19/18 11:00 01/13/19 10:59 Albuterol/ Ipratropium (Albuterol/ Ipratropium) 3 ml Q4H PRN HHN Shortness of Breath 12/20/18 10:45 12/25/18 10:44 Aspirin (ASA) 81 mg DAILY NG 12/19/18 15:30 01/18/19 15:29 12/20/18 09:11 Atorvastatin Calcium (Lipitor) 20 mg BEDTIME GT 12/19/18 21:00 01/17/19 20:59 12/19/18 21:15 Ciprofloxacin (Cipro 500mg tab) 500 mg EVERY 12 HOURS GT 12/19/18 21:00 12/23/18 10:59 12/20/18 09:11 Clopidogrel Bisulfate (Plavix) 75 mg DAILY GT 12/20/18 09:00 01/14/19 08:59 12/20/18 09:11 Dextrose (Dextrose 50%) 25 ml Q30M PRN IV Hypoglycemia 12/19/18 11:15 01/13/19 17:14 Dextrose (Dextrose 50%) 50 ml Q30M PRN IV Hypoglycemia 12/19/18 11:15 01/13/19 17:14 Hydralazine HCl (Apresoline) 10 mg Q6HR GT 12/19/18 12:00 01/17/19 17:59 12/20/18 05:35 Hydralazine HCl (Apresoline) 25 mg Q4H PRN GT bp over 160 syst 12/19/18 11:00 01/17/19 10:59 Insulin Aspart (NovoLOG) EVERY 6 HOURS SUBQ 12/19/18 12:00 01/13/19 20:59 12/20/18 05:37 Lansoprazole (Prevacid) 30 mg BID GT 12/19/18 18:00 01/15/19 17:59 12/20/18 09:12 Nitroglycerin (Ntg) 1 patch Q24H TDERMAL 12/19/18 17:00 01/13/19 16:59 12/19/18 17:21 Ondansetron HCl (Zofran ODT) 4 mg Q4HR ORAL 12/19/18 13:00 01/13/19 20:59 12/20/18 09:10 Laboratory Tests 12/20/18 06:19: White Blood Count 2.8L, Red Blood Count 2.84L, Hemoglobin 8.8L, Hematocrit 27.6L , Mean Corpuscular Volume 97, Mean Corpuscular Hemoglobin 31.0, Mean Corpuscular Hemoglobin Concent 31.9L, Red Cell Distribution Width 16.1H, Platelet Count 71L, Mean Platelet Volume 8.1, Neutrophils (%) (Auto) , Lymphocytes (%) (Auto) , Monocytes (%) (Auto) , Eosinophils (%) (Auto) , Basophils (%) (Auto) , Differential Total Cells Counted 100, Neutrophils % ( Manual) 78H, Lymphocytes % (Manual) 13L, Monocytes % (Manual) 7, Eosinophils % ( Manual) 2, Basophils % (Manual) 0, Band Neutrophils 0, Platelet Estimate DecreasedL, Platelet Morphology Normal, Hypochromasia 2+, Anisocytosis 1+, Sodium Level 143, Potassium Level 3.3L, Chloride Level 107, Carbon Dioxide Level 32, Anion Gap 4L, Blood Urea Nitrogen 21H, Creatinine 0.7, Estimat Glomerular Filtration Rate , Glucose Level 170H, Calcium Level 8.9 Height (Feet): 5 Height (Inches): 2.00 Weight (Pounds): 113 General Appearance: no apparent distress, lethargic Cardiovascular: normal rate Respiratory/Chest: decreased breath sounds Abdomen: soft Objective no change Parvez Bergman MD Dec 20, 2018 12:04
--- NOTE | 2018-12-20 12:20 | Infectious Diseases Prog Note ---
Assessment/Plan Assessment/Plan A; Sepsis UTI with E. coli Left hydronephrosis Subacute CVA Dementia Nephrolithiasis Pancytopenia DM type 2 History of DVT s/p IVC filter P; continue Ciprofloxacin X 3 days Subjective ROS Limited/Unobtainable: Yes Allergies: Coded Allergies: No Known Allergies (Unverified , 12/14/18) Objective Vital Signs Last 24 Hour Vital Signs Date Time Temp Pulse Resp B/P (MAP) Pulse Ox O2 Delivery O2 Flow Rate FiO2 12/20/18 12:00 99.5 100 18 131/73 (92) 98 12/20/18 09:00 Nasal Cannula 2.0 12/20/18 08:54 72 16 Nasal Cannula 2.0 28 12/20/18 08:54 97 Nasal Cannula 2.0 28 12/20/18 08:54 Nasal Cannula 2.0 28 12/20/18 08:00 98.6 90 18 131/67 (88) 100 12/20/18 08:00 89 12/20/18 05:35 144/66 12/20/18 04:00 83 12/20/18 04:00 98.3 70 18 144/66 (92) 100 12/20/18 00:00 70 12/19/18 23:52 97.7 66 18 131/57 (81) 100 12/19/18 23:49 131/57 12/19/18 22:49 98 Nasal Cannula 2.0 28 12/19/18 22:49 Nasal Cannula 2.0 28 12/19/18 22:49 66 20 Nasal Cannula 2.0 28 12/19/18 21:00 Nasal Cannula 2.0 12/19/18 20:00 67 12/19/18 20:00 98.5 68 18 139/56 (83) 100 12/19/18 17:21 136/58 12/19/18 17:21 136/58 12/19/18 16:00 98.0 61 17 136/58 (84) 100 12/19/18 16:00 62 12/19/18 12:32 128/54 Height (Feet): 5 Height (Inches): 2.00 Weight (Pounds): 113 General Appearance: no acute distress HEENT: mucous membranes moist Respiratory/Chest: lungs clear Cardiovascular: normal rate Abdomen: soft, non tender, other - GT feeding Extremities: no edema Neurologic/Psychiatric: aphasia Laboratory Tests Test 12/20/18 06:19 White Blood Count 2.8 K/UL (4.8-10.8) L Red Blood Count 2.84 M/UL (4.20-5.40) L Hemoglobin 8.8 G/DL (12.0-16.0) L Hematocrit 27.6 % (37.0-47.0) L Mean Corpuscular Volume 97 FL (80-99) Mean Corpuscular Hemoglobin 31.0 PG (27.0-31.0) Mean Corpuscular Hemoglobin Concent 31.9 G/DL (32.0-36.0) L Red Cell Distribution Width 16.1 % (11.6-14.8) H Platelet Count 71 K/UL (150-450) L Mean Platelet Volume 8.1 FL (6.5-10.1) Neutrophils (%) (Auto) % (45.0-75.0) Lymphocytes (%) (Auto) % (20.0-45.0) Monocytes (%) (Auto) % (1.0-10.0) Eosinophils (%) (Auto) % (0.0-3.0) Basophils (%) (Auto) % (0.0-2.0) Differential Total Cells Counted 100 Neutrophils % (Manual) 78 % (45-75) H Lymphocytes % (Manual) 13 % (20-45) L Monocytes % (Manual) 7 % (1-10) Eosinophils % (Manual) 2 % (0-3) Basophils % (Manual) 0 % (0-2) Band Neutrophils 0 % (0-8) Platelet Estimate Decreased L Platelet Morphology Normal Hypochromasia 2+ Anisocytosis 1+ Sodium Level 143 MMOL/L (136-145) Potassium Level 3.3 MMOL/L (3.5-5.1) L Chloride Level 107 MMOL/L (98-107) Carbon Dioxide Level 32 MMOL/L (21-32) Anion Gap 4 mmol/L (5-15) L Blood Urea Nitrogen 21 mg/dL (7-18) H Creatinine 0.7 MG/DL (0.55-1.30) Estimat Glomerular Filtration Rate mL/min (>60) Glucose Level 170 MG/DL (74-106) H Calcium Level 8.9 MG/DL (8.5-10.1) Current Medications Medications (Trade) Dose Ordered Sig/Luare Route PRN Reason Start Time Stop Time Status Last Admin Dose Admin Acetaminophen (Tylenol) 650 mg Q4H PRN GT Mild Pain/Temp > 100.5 12/19/18 11:00 01/13/19 10:59 Albuterol/ Ipratropium (Albuterol/ Ipratropium) 3 ml Q4H PRN HHN Shortness of Breath 12/20/18 10:45 12/25/18 10:44 Aspirin (ASA) 81 mg DAILY NG 12/19/18 15:30 01/18/19 15:29 12/20/18 09:11 Atorvastatin Calcium (Lipitor) 20 mg BEDTIME GT 12/19/18 21:00 01/17/19 20:59 12/19/18 21:15 Ciprofloxacin (Cipro 500mg tab) 500 mg EVERY 12 HOURS GT 12/19/18 21:00 12/23/18 10:59 12/20/18 09:11 Clopidogrel Bisulfate (Plavix) 75 mg DAILY GT 12/20/18 09:00 01/14/19 08:59 12/20/18 09:11 Dextrose (Dextrose 50%) 25 ml Q30M PRN IV Hypoglycemia 12/19/18 11:15 01/13/19 17:14 Dextrose (Dextrose 50%) 50 ml Q30M PRN IV Hypoglycemia 12/19/18 11:15 01/13/19 17:14 Hydralazine HCl (Apresoline) 10 mg Q6HR GT 12/19/18 12:00 01/17/19 17:59 12/20/18 05:35 Hydralazine HCl (Apresoline) 25 mg Q4H PRN GT bp over 160 syst 12/19/18 11:00 01/17/19 10:59 Insulin Aspart (NovoLOG) EVERY 6 HOURS SUBQ 12/19/18 12:00 01/13/19 20:59 12/20/18 05:37 Lansoprazole (Prevacid) 30 mg BID GT 12/19/18 18:00 01/15/19 17:59 12/20/18 09:12 Nitroglycerin (Ntg) 1 patch Q24H TDERMAL 12/19/18 17:00 01/13/19 16:59 12/19/18 17:21 Ondansetron HCl (Zofran ODT) 4 mg Q4HR ORAL 12/19/18 13:00 01/13/19 20:59 12/20/18 09:10 Shimon Card MD Dec 20, 2018 12:20
--- NOTE | 2018-12-20 14:52 | General Progress Note ---
Assessment/Plan Problem List: (1) Feeding by G-tube ICD Codes: Z93.1 - Gastrostomy status SNOMED: 118321448, 025484883, 820159208 (2) Altered mental status ICD Codes: R41.82 - Altered mental status, unspecified SNOMED: 524082498 (3) Thrombocytopenia ICD Codes: D69.6 - Thrombocytopenia, unspecified SNOMED: 312891740 (4) Sepsis ICD Codes: A41.9 - Sepsis, unspecified organism SNOMED: 15219456 Assessment/Plan continue Novolog sliding scale every 6 hours no need for basal insulin for now Subjective ROS Limited/Unobtainable: Yes Allergies: Coded Allergies: No Known Allergies (Unverified , 12/14/18) Subjective events noted glucose values are stable Item Value Date Time Bedside Blood Glucose 172 mg/dl H 12/20/18 1234 Bedside Blood Glucose 191 mg/dl H 12/20/18 0547 Bedside Blood Glucose 178 mg/dl H 12/19/18 2353 Bedside Blood Glucose 137 mg/dl H 12/19/18 1819 Bedside Blood Glucose 119 mg/dl 12/19/18 1200 Objective Last 24 Hour Vital Signs Date Time Temp Pulse Resp B/P (MAP) Pulse Ox O2 Delivery O2 Flow Rate FiO2 12/20/18 12:30 131/73 12/20/18 12:00 95 12/20/18 12:00 99.5 100 18 131/73 (92) 98 12/20/18 09:00 Nasal Cannula 2.0 12/20/18 08:54 72 16 Nasal Cannula 2.0 28 12/20/18 08:54 97 Nasal Cannula 2.0 28 12/20/18 08:54 Nasal Cannula 2.0 28 12/20/18 08:00 98.6 90 18 131/67 (88) 100 12/20/18 08:00 89 12/20/18 05:35 144/66 12/20/18 04:00 83 12/20/18 04:00 98.3 70 18 144/66 (92) 100 12/20/18 00:00 70 12/19/18 23:52 97.7 66 18 131/57 (81) 100 12/19/18 23:49 131/57 12/19/18 22:49 98 Nasal Cannula 2.0 28 12/19/18 22:49 Nasal Cannula 2.0 28 12/19/18 22:49 66 20 Nasal Cannula 2.0 28 12/19/18 21:00 Nasal Cannula 2.0 12/19/18 20:00 67 12/19/18 20:00 98.5 68 18 139/56 (83) 100 12/19/18 17:21 136/58 12/19/18 17:21 136/58 12/19/18 16:00 98.0 61 17 136/58 (84) 100 12/19/18 16:00 62 Intake and Output 12/19/18 12/20/18 18:59 06:59 Intake Total 55 ml Output Total 1200 ml Balance -1145 ml Tube Feeding 55 ml Output Urine Total 1200 ml Laboratory Tests 12/20/18 06:19: White Blood Count 2.8L, Red Blood Count 2.84L, Hemoglobin 8.8L, Hematocrit 27.6L , Mean Corpuscular Volume 97, Mean Corpuscular Hemoglobin 31.0, Mean Corpuscular Hemoglobin Concent 31.9L, Red Cell Distribution Width 16.1H, Platelet Count 71L, Mean Platelet Volume 8.1, Neutrophils (%) (Auto) , Lymphocytes (%) (Auto) , Monocytes (%) (Auto) , Eosinophils (%) (Auto) , Basophils (%) (Auto) , Differential Total Cells Counted 100, Neutrophils % ( Manual) 78H, Lymphocytes % (Manual) 13L, Monocytes % (Manual) 7, Eosinophils % ( Manual) 2, Basophils % (Manual) 0, Band Neutrophils 0, Platelet Estimate DecreasedL, Platelet Morphology Normal, Hypochromasia 2+, Anisocytosis 1+, Sodium Level 143, Potassium Level 3.3L, Chloride Level 107, Carbon Dioxide Level 32, Anion Gap 4L, Blood Urea Nitrogen 21H, Creatinine 0.7, Estimat Glomerular Filtration Rate , Glucose Level 170H, Calcium Level 8.9 Height (Feet): 5 Height (Inches): 2.00 Weight (Pounds): 113 General Appearance: no apparent distress Neck: normal alignment Cardiovascular: normal rate Respiratory/Chest: lungs clear Abdomen: normal bowel sounds Objective Current Medications Medications (Trade) Dose Ordered Sig/Laure Route PRN Reason Start Time Stop Time Status Last Admin Dose Admin Acetaminophen (Tylenol) 650 mg Q4H PRN GT Mild Pain/Temp > 100.5 12/19/18 11:00 4/5/19 10:59 Albuterol/ Ipratropium (Albuterol/ Ipratropium) 3 ml Q4H PRN HHN Shortness of Breath 12/20/18 10:45 12/25/18 10:44 Aspirin (ASA) 81 mg DAILY NG 12/19/18 15:30 01/18/19 15:29 12/20/18 09:11 Atorvastatin Calcium (Lipitor) 20 mg BEDTIME GT 12/19/18 21:00 01/17/19 20:59 12/19/18 21:15 Ciprofloxacin (Cipro 500mg tab) 500 mg EVERY 12 HOURS GT 12/19/18 21:00 12/23/18 10:59 12/20/18 09:11 Clopidogrel Bisulfate (Plavix) 75 mg DAILY GT 12/20/18 09:00 01/14/19 08:59 12/20/18 09:11 Dextrose (Dextrose 50%) 25 ml Q30M PRN IV Hypoglycemia 12/19/18 11:15 01/13/19 17:14 Dextrose (Dextrose 50%) 50 ml Q30M PRN IV Hypoglycemia 12/19/18 11:15 01/13/19 17:14 Hydralazine HCl (Apresoline) 10 mg Q6HR GT 12/19/18 12:00 01/17/19 17:59 12/20/18 12:30 Hydralazine HCl (Apresoline) 25 mg Q4H PRN GT bp over 160 syst 12/19/18 11:00 01/17/19 10:59 Insulin Aspart (NovoLOG) EVERY 6 HOURS SUBQ 12/19/18 12:00 01/13/19 20:59 12/20/18 12:34 Lansoprazole (Prevacid) 30 mg BID GT 12/19/18 18:00 01/15/19 17:59 12/20/18 09:12 Nitroglycerin (Ntg) 1 patch Q24H TDERMAL 12/19/18 17:00 01/13/19 16:59 12/19/18 17:21 Ondansetron HCl (Zofran ODT) 4 mg Q4HR ORAL 12/19/18 13:00 01/13/19 20:59 12/20/18 12:30 Enrique Tafoya MD Dec 20, 2018 14:52
--- NOTE | 2018-12-20 15:00 | NUR ---
*-* INSURANCE *-* UPDATED CLINICALS HAVE BEEN FAXED TO: DIANE F: [phone]
[2018-12-20 16:00] VITALS: BP 130/63
--- NOTE | 2018-12-20 16:27 | General Progress Note ---
Assessment/Plan Assessment/Plan Assessment/Plan: # Decreased white blood cell count, Leukopenia --> if the total ANC is less than 2000, consider neupogen --> continue antibiotics with ID service, appreciate recs --> medications have been reviewed --> hepatitis and hiv negative Wbc trend: 4-->2.7-->2.2->2.8 # Thrombocytopenia - potential causes multifactorial, evaluate liver and viral etiologies to begin, also could be related to underlying medications patient has received. --> Hep panel and HIV negative --> US abd to evaluate for cirrhosis and hsm reviewed --> Peripheral smear ordered to evaluate for blasts /schistocytes --> abx and other meds have been reviewed --> ok for ppx if plt >50k w/ either heparin or lovenox --> Transfuse if Plt < 20k and fever, or if Plt < 10k without fever --> PLT trend: 51-->58-->71 # Pancytopenia, likely related to septicemia, appears new baseline 50-70k, several causes possible including viral, medication or intrabone marrow related. --> Cont to monitor plt count for improvement --> US abd: Mild left hydronephrosis. Possible left renal calyceal calculi. Negative for gallstones or dilated ducts Debris noted within the bladder --> Hep panel and HIV are both negative --> given extremely poor condition do not recommend a bone marrow biopsy, have discussed with family 08/01 with --> will rediscuss once sepsis resolves --> transfuse if plt <20k # Anemia of chronic disease. Multifactorial. Since admission Hgb has consistently remained between 8-9. --> Cont to monitor for stability --> Hgb goal above 7. Transfuse prn. --> IV iron completed prior admission and feritin is elevated # DVT of the left leg s/p IVC filter in 07/2018-- superficial femoral vein which is a deep vein, new onset, has not had these symptoms before. Lower hgb and plts --> given decreased h/h, low thrombocytopenia, do not recommend anticoag --> appreciate Dr. Parekh and Marima arias from prior admission --> smear reviewed # Dehydration. IVF has been administered --> improved # DM OOC --> A1C goal <7 --> Cont on insulin # Bacteremia/prior UTI. --> ID is following. Appreciate recs. --> Pt on IV abx. --> Cultures surveillance as per id # PEG placement 08/04. Greatly appreciate consultation! Subjective Constitutional: Denies: no symptoms, chills, diaphoresis, fever, malaise, weakness, other HEENT: Denies: no symptoms, eye pain, blurred vision, tearing, double vision, ear pain, ear discharge, nose pain, nose congestion, throat pain, throat swelling, mouth pain, mouth swelling, other Cardiovascular: Denies: no symptoms, chest pain, edema, irregular heart rate, lightheadedness, palpitations, syncope, other Respiratory: Denies: no symptoms, cough, orthopnea, shortness of breath, SOB with excertion, SOB at rest, sputum, stridor, wheezing, other Gastrointestinal/Abdominal: Denies: no symptoms, abdomen distended, abdominal pain, black stools, tarry stools, blood in stool, constipated, diarrhea, difficulty swallowing, nausea, poor appetite, poor fluid intake, rectal bleeding , vomiting, other Allergies: Coded Allergies: No Known Allergies (Unverified , 12/14/18) Subjective 12/16: seen by bedside, awake, comfortable, hgb 8, plt 51 12/18: awake, non verbal on NC, no events, pending labs today 12/19: Pt is resting in bed, no events reported, plt 71 12/20: seen by bedside, awake, comfortable, no events Objective Last 24 Hour Vital Signs Date Time Temp Pulse Resp B/P (MAP) Pulse Ox O2 Delivery O2 Flow Rate FiO2 12/20/18 16:00 98.4 84 18 130/63 (85) 99 12/20/18 12:30 131/73 12/20/18 12:00 95 12/20/18 12:00 99.5 100 18 131/73 (92) 98 12/20/18 09:00 Nasal Cannula 2.0 12/20/18 08:54 72 16 Nasal Cannula 2.0 28 12/20/18 08:54 97 Nasal Cannula 2.0 28 12/20/18 08:54 Nasal Cannula 2.0 28 12/20/18 08:00 98.6 90 18 131/67 (88) 100 12/20/18 08:00 89 12/20/18 05:35 144/66 12/20/18 04:00 83 12/20/18 04:00 98.3 70 18 144/66 (92) 100 12/20/18 00:00 70 12/19/18 23:52 97.7 66 18 131/57 (81) 100 12/19/18 23:49 131/57 12/19/18 22:49 98 Nasal Cannula 2.0 28 12/19/18 22:49 Nasal Cannula 2.0 28 12/19/18 22:49 66 20 Nasal Cannula 2.0 28 12/19/18 21:00 Nasal Cannula 2.0 12/19/18 20:00 67 12/19/18 20:00 98.5 68 18 139/56 (83) 100 12/19/18 17:21 136/58 12/19/18 17:21 136/58 Intake and Output 12/19/18 12/20/18 19:00 07:00 Output Total 700 ml Balance -700 ml Output Urine Total 700 ml Laboratory Tests 12/20/18 06:19: White Blood Count 2.8L, Red Blood Count 2.84L, Hemoglobin 8.8L, Hematocrit 27.6L , Mean Corpuscular Volume 97, Mean Corpuscular Hemoglobin 31.0, Mean Corpuscular Hemoglobin Concent 31.9L, Red Cell Distribution Width 16.1H, Platelet Count 71L, Mean Platelet Volume 8.1, Neutrophils (%) (Auto) , Lymphocytes (%) (Auto) , Monocytes (%) (Auto) , Eosinophils (%) (Auto) , Basophils (%) (Auto) , Differential Total Cells Counted 100, Neutrophils % ( Manual) 78H, Lymphocytes % (Manual) 13L, Monocytes % (Manual) 7, Eosinophils % ( Manual) 2, Basophils % (Manual) 0, Band Neutrophils 0, Platelet Estimate DecreasedL, Platelet Morphology Normal, Hypochromasia 2+, Anisocytosis 1+, Sodium Level 143, Potassium Level 3.3L, Chloride Level 107, Carbon Dioxide Level 32, Anion Gap 4L, Blood Urea Nitrogen 21H, Creatinine 0.7, Estimat Glomerular Filtration Rate , Glucose Level 170H, Calcium Level 8.9 Height (Feet): 5 Height (Inches): 2.00 Weight (Pounds): 113 Objective PHYSICAL EXAMINATION: VITAL SIGNS: Reviewed. Saturating 100% on 2 L. NC++ GENERAL: She is an elderly demented female, in no acute distress. Nonverbal. HEENT: Normocephalic and atraumatic. Oropharynx is clear. Moist mucous membranes. NECK: Supple without lymphadenopathy. CHEST: Clear, but rales at the bases. HEART: Regular rate and rhythm. ABDOMEN: Soft, nontender, and nondistended. ++ peg EXTREMITIES: No cyanosis, clubbing or edema. Dewayne Gayle MD Dec 20, 2018 16:27
[2018-12-20] MEDS: Nitroglycerin Patch 0.4mg TDERMAL SCH (17:29)
--- NOTE | 2018-12-20 19:30 | NUR ---
HAND-OFF: Report given to DONIS Galdamez. Pt in stable condition.
--- NOTE | 2018-12-20 19:31 | NUR ---
NURSE NOTES: Received report from Stephanie DYKES. Pt in stable condition. No s/s of distress noted. Pt resting in bed comfortably. Bed in low and locked position, call light within reach, bedside table within reach. Will continue to monitor and follow plan of care.
[2018-12-20 20:00] VITALS: BP 117/55
[2018-12-20] MEDS: Atorvastatin 20mg tab GT SCH (21:55)
--- NOTE | 2018-12-20 22:01 | General Progress Note ---
Assessment/Plan Problem List: (1) Dementia with behavioral disturbance ICD Codes: F03.91 - Unspecified dementia with behavioral disturbance SNOMED: 2200053776698 (2) Fever ICD Codes: R50.9 - Fever, unspecified SNOMED: 597683346 (3) Dehydration ICD Codes: E86.0 - Dehydration SNOMED: 56126161 (4) Anemia ICD Codes: D64.9 - Anemia, unspecified SNOMED: 966729390 (5) Thrombocytopenia ICD Codes: D69.6 - Thrombocytopenia, unspecified SNOMED: 935357914 (6) CVA (cerebral vascular accident) ICD Codes: I63.9 - Cerebral infarction, unspecified SNOMED: 102137954 Qualifiers: Qualified Codes: I63.9 - Cerebral infarction, unspecified (7) Elevated troponin I level ICD Codes: R74.8 - Abnormal levels of other serum enzymes SNOMED: 426203651 (8) Diabetic nephropathy 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 SNOMED: 078524772 (9) Feeding by G-tube ICD Codes: Z93.1 - Gastrostomy status SNOMED: 869359965, 248173699, 797840147 Status: progressing Assessment/Plan dementia reviewed chart and labs peg malnutrition not ready for snf pna subacute cva pancytopenia check trop Subjective ROS Limited/Unobtainable: Yes Allergies: Coded Allergies: No Known Allergies (Unverified , 12/14/18) Objective Last 24 Hour Vital Signs Date Time Temp Pulse Resp B/P (MAP) Pulse Ox O2 Delivery O2 Flow Rate FiO2 12/20/18 20:37 97 Nasal Cannula 2.0 28 12/20/18 20:37 77 18 Nasal Cannula 2.0 28 12/20/18 20:37 Nasal Cannula 2.0 28 12/20/18 17:29 130/63 12/20/18 17:26 130/63 12/20/18 16:00 98.4 84 18 130/63 (85) 99 12/20/18 16:00 75 12/20/18 12:30 131/73 12/20/18 12:00 95 12/20/18 12:00 99.5 100 18 131/73 (92) 98 12/20/18 09:00 Nasal Cannula 2.0 12/20/18 08:54 72 16 Nasal Cannula 2.0 28 12/20/18 08:54 97 Nasal Cannula 2.0 28 12/20/18 08:54 Nasal Cannula 2.0 28 12/20/18 08:00 98.6 90 18 131/67 (88) 100 12/20/18 08:00 89 12/20/18 05:35 144/66 12/20/18 04:00 83 12/20/18 04:00 98.3 70 18 144/66 (92) 100 12/20/18 00:00 70 12/19/18 23:52 97.7 66 18 131/57 (81) 100 12/19/18 23:49 131/57 12/19/18 22:49 98 Nasal Cannula 2.0 28 12/19/18 22:49 Nasal Cannula 2.0 28 12/19/18 22:49 66 20 Nasal Cannula 2.0 28 Intake and Output 12/19/18 12/20/18 19:00 07:00 Output Total 700 ml Balance -700 ml Output Urine Total 700 ml Laboratory Tests 12/20/18 06:19: White Blood Count 2.8L, Red Blood Count 2.84L, Hemoglobin 8.8L, Hematocrit 27.6L , Mean Corpuscular Volume 97, Mean Corpuscular Hemoglobin 31.0, Mean Corpuscular Hemoglobin Concent 31.9L, Red Cell Distribution Width 16.1H, Platelet Count 71L, Mean Platelet Volume 8.1, Neutrophils (%) (Auto) , Lymphocytes (%) (Auto) , Monocytes (%) (Auto) , Eosinophils (%) (Auto) , Basophils (%) (Auto) , Differential Total Cells Counted 100, Neutrophils % ( Manual) 78H, Lymphocytes % (Manual) 13L, Monocytes % (Manual) 7, Eosinophils % ( Manual) 2, Basophils % (Manual) 0, Band Neutrophils 0, Platelet Estimate DecreasedL, Platelet Morphology Normal, Hypochromasia 2+, Anisocytosis 1+, Sodium Level 143, Potassium Level 3.3L, Chloride Level 107, Carbon Dioxide Level 32, Anion Gap 4L, Blood Urea Nitrogen 21H, Creatinine 0.7, Estimat Glomerular Filtration Rate , Glucose Level 170H, Calcium Level 8.9 Height (Feet): 5 Height (Inches): 2.00 Weight (Pounds): 113 General Appearance: lethargic, confused Respiratory/Chest: lungs clear Abdomen: soft Hadadz,Ali MD Dec 20, 2018 22:01
[2018-12-21] VITALS: BP 127/56
[2018-12-21] MEDS: NovoLOG Insulin Flexpen SUBQ SCH ×5 (00:01→23:42)
[2018-12-21 04:00] VITALS: BP 111/50
[2018-12-21] MEDS: HydrALAZINE 10mg Tab GT SCH ×5 (05:48→23:38)
--- NOTE | 2018-12-21 06:30 | General Progress Note ---
Assessment/Plan Problem List: (1) Feeding by G-tube ICD Codes: Z93.1 - Gastrostomy status SNOMED: 332620982, 080462416, 438488098 (2) Altered mental status ICD Codes: R41.82 - Altered mental status, unspecified SNOMED: 675260718 (3) Thrombocytopenia ICD Codes: D69.6 - Thrombocytopenia, unspecified SNOMED: 084581245 (4) Sepsis ICD Codes: A41.9 - Sepsis, unspecified organism SNOMED: 20810882 Assessment/Plan continue Novolog sliding scale every 6 hours no need for basal insulin for now Subjective ROS Limited/Unobtainable: Yes Allergies: Coded Allergies: No Known Allergies (Unverified , 12/14/18) Subjective events noted Item Value Date Time Bedside Blood Glucose 172 mg/dl H 12/21/18 0553 Bedside Blood Glucose 163 mg/dl H 12/21/18 0001 Bedside Blood Glucose 137 mg/dl H 12/20/18 1728 Bedside Blood Glucose 172 mg/dl H 12/20/18 1234 Bedside Blood Glucose 191 mg/dl H 12/20/18 0547 Bedside Blood Glucose 178 mg/dl H 12/19/18 2353 Objective Last 24 Hour Vital Signs Date Time Temp Pulse Resp B/P (MAP) Pulse Ox O2 Delivery O2 Flow Rate FiO2 12/21/18 05:48 111/50 12/21/18 04:00 72 12/21/18 04:00 97.6 70 20 111/50 (70) 100 12/21/18 00:00 68 12/21/18 00:00 127/56 12/21/18 00:00 98.2 69 18 127/56 (79) 100 12/20/18 21:00 Nasal Cannula 2.0 12/20/18 20:37 97 Nasal Cannula 2.0 28 12/20/18 20:37 77 18 Nasal Cannula 2.0 28 12/20/18 20:37 Nasal Cannula 2.0 28 12/20/18 20:00 75 12/20/18 20:00 98.3 78 18 117/55 (75) 99 12/20/18 17:29 130/63 12/20/18 17:26 130/63 12/20/18 16:00 98.4 84 18 130/63 (85) 99 12/20/18 16:00 75 12/20/18 12:30 131/73 12/20/18 12:00 95 12/20/18 12:00 99.5 100 18 131/73 (92) 98 12/20/18 09:00 Nasal Cannula 2.0 12/20/18 08:54 72 16 Nasal Cannula 2.0 28 12/20/18 08:54 97 Nasal Cannula 2.0 28 12/20/18 08:54 Nasal Cannula 2.0 28 12/20/18 08:00 98.6 90 18 131/67 (88) 100 12/20/18 08:00 89 Intake and Output 12/20/18 12/21/18 19:00 07:00 Intake Total 960 ml Output Total 1250 ml Balance -290 ml Free Water 300 ml Tube Feeding 660 ml Output Urine Total 1250 ml # Bowel Movements 2 Height (Feet): 5 Height (Inches): 2.00 Weight (Pounds): 113 General Appearance: no apparent distress Neck: normal alignment Cardiovascular: normal peripheral pulses Respiratory/Chest: decreased breath sounds Abdomen: normal bowel sounds Objective Current Medications Medications (Trade) Dose Ordered Sig/Laure Route PRN Reason Start Time Stop Time Status Last Admin Dose Admin Acetaminophen (Tylenol) 650 mg Q4H PRN GT Mild Pain/Temp > 100.5 12/19/18 11:00 01/13/19 10:59 Albuterol/ Ipratropium (Albuterol/ Ipratropium) 3 ml Q4H PRN HHN Shortness of Breath 12/20/18 10:45 12/25/18 10:44 Aspirin (ASA) 81 mg DAILY NG 12/19/18 15:30 01/18/19 15:29 12/20/18 09:11 Atorvastatin Calcium (Lipitor) 20 mg BEDTIME GT 12/19/18 21:00 01/17/19 20:59 12/20/18 21:55 Ciprofloxacin (Cipro 500mg tab) 500 mg EVERY 12 HOURS GT 12/19/18 21:00 12/23/18 10:59 12/20/18 21:55 Clopidogrel Bisulfate (Plavix) 75 mg DAILY GT 12/20/18 09:00 01/14/19 08:59 12/20/18 09:11 Dextrose (Dextrose 50%) 25 ml Q30M PRN IV Hypoglycemia 12/19/18 11:15 01/13/19 17:14 Dextrose (Dextrose 50%) 50 ml Q30M PRN IV Hypoglycemia 12/19/18 11:15 01/13/19 17:14 Hydralazine HCl (Apresoline) 10 mg Q6HR GT 12/19/18 12:00 01/17/19 17:59 12/21/18 05:48 Hydralazine HCl (Apresoline) 25 mg Q4H PRN GT bp over 160 syst 12/19/18 11:00 01/17/19 10:59 Insulin Aspart (NovoLOG) EVERY 6 HOURS SUBQ 12/19/18 12:00 01/13/19 20:59 12/21/18 05:53 Lansoprazole (Prevacid) 30 mg BID GT 12/19/18 18:00 01/15/19 17:59 12/20/18 17:26 Nitroglycerin (Ntg) 1 patch Q24H TDERMAL 12/19/18 17:00 01/13/19 16:59 12/20/18 17:29 Ondansetron HCl (Zofran ODT) 4 mg Q4HR ORAL 12/19/18 13:00 01/13/19 20:59 12/21/18 05:49 Enrique Tafoya MD Dec 21, 2018 06:30
[2018-12-21 07:36] LABS: ANION GAP 4 mmol/L (5-15); BLOOD UREA NITROGEN 21 mg/dL (7-18); CARBON DIOXIDE 30 MMOL/L (21-32); CHLORIDE 106 MMOL/L (98-107); CREATININE 0.7 MG/DL (0.55-1.30); SODIUM 140 MMOL/L (136-145)
[2018-12-21 07:51] LABS: HEMATOCRIT 25.9 % (37.0-47.0); HEMOGLOBIN 8.4 G/DL (12.0-16.0); MEAN CORPUSCULAR VOLUME 98 FL (80-99); PLATELET COUNT 65 K/UL (150-450); RED BLOOD COUNT 2.65 M/UL (4.20-5.40); RED CELL DISTRIBUTION WIDTH 16.4 % (11.6-14.8); WHITE BLOOD COUNT 2.6 K/UL (4.8-10.8)
--- NOTE | 2018-12-21 07:57 | NUR ---
HAND-OFF: Report given to Kaia DYKES.
[2018-12-21 08:00] VITALS: BP 125/56
[2018-12-21] MEDS: Aspirin Baby 81mg NG SCH (09:29)
[2018-12-21] MEDS: Ciprofloxacin 500mg tab GT SCH ×2 (09:29→20:47)
--- NOTE | 2018-12-21 10:11 | GI Progress Note ---
Assessment/Plan Problems: (1) Altered mental status ICD Codes: R41.82 - Altered mental status, unspecified SNOMED: 008518764 (2) Anemia ICD Codes: D64.9 - Anemia, unspecified SNOMED: 749347745 (3) Thrombocytopenia ICD Codes: D69.6 - Thrombocytopenia, unspecified SNOMED: 581878492 (4) Malnutrition ICD Codes: E46 - Unspecified protein-calorie malnutrition SNOMED: 84581846 (5) Dehydration ICD Codes: E86.0 - Dehydration SNOMED: 55895064 Status: stable, unchanged Status Narrative Discussed with Dr. Argueta. Assessment/Plan Abdominal US reviewed, see full report. Equivocally slightly coarsened hepatic echogenicity, could indicate hepatocellular disease. GTF per RD, tolerating prn transfusions ppi reglan if needed abx per ID supportive care fu labs The patient was seen and examined at bedside and all new and available data was reviewed in the patients chart. I agree with the above findings, impression and plan. (Patient seen earlier today. Signature stamp does not reflect patient encounter time.). - Edwardo Argueta MD Subjective Subjective limited Objective Last 24 Hour Vital Signs Date Time Temp Pulse Resp B/P (MAP) Pulse Ox O2 Delivery O2 Flow Rate FiO2 12/21/18 07:15 Nasal Cannula 2.0 28 12/21/18 07:15 80 18 Nasal Cannula 2.0 28 12/21/18 07:15 99 Nasal Cannula 2.0 28 12/21/18 05:48 111/50 12/21/18 04:00 72 12/21/18 04:00 97.6 70 20 111/50 (70) 100 12/21/18 00:00 68 12/21/18 00:00 127/56 12/21/18 00:00 98.2 69 18 127/56 (79) 100 12/20/18 21:00 Nasal Cannula 2.0 12/20/18 20:37 97 Nasal Cannula 2.0 28 12/20/18 20:37 77 18 Nasal Cannula 2.0 28 12/20/18 20:37 Nasal Cannula 2.0 28 12/20/18 20:00 75 12/20/18 20:00 98.3 78 18 117/55 (75) 99 12/20/18 17:29 130/63 12/20/18 17:26 130/63 12/20/18 16:00 98.4 84 18 130/63 (85) 99 12/20/18 16:00 75 12/20/18 12:30 131/73 12/20/18 12:00 95 12/20/18 12:00 99.5 100 18 131/73 (92) 98 Intake and Output 12/20/18 12/21/18 19:00 07:00 Intake Total 960 ml Output Total 1250 ml Balance -290 ml Free Water 300 ml Tube Feeding 660 ml Output Urine Total 1250 ml # Bowel Movements 2 Laboratory Tests Test 12/21/18 06:10 White Blood Count 2.6 K/UL (4.8-10.8) L Red Blood Count 2.65 M/UL (4.20-5.40) L Hemoglobin 8.4 G/DL (12.0-16.0) L Hematocrit 25.9 % (37.0-47.0) L Mean Corpuscular Volume 98 FL (80-99) Mean Corpuscular Hemoglobin 31.7 PG (27.0-31.0) H Mean Corpuscular Hemoglobin Concent 32.4 G/DL (32.0-36.0) Red Cell Distribution Width 16.4 % (11.6-14.8) H Platelet Count 65 K/UL (150-450) L Mean Platelet Volume 8.8 FL (6.5-10.1) Neutrophils (%) (Auto) % (45.0-75.0) Lymphocytes (%) (Auto) % (20.0-45.0) Monocytes (%) (Auto) % (1.0-10.0) Eosinophils (%) (Auto) % (0.0-3.0) Basophils (%) (Auto) % (0.0-2.0) Neutrophils % (Manual) Pending Lymphocytes % (Manual) Pending Platelet Estimate Pending Platelet Morphology Pending Sodium Level 140 MMOL/L (136-145) Potassium Level 4.0 MMOL/L (3.5-5.1) Chloride Level 106 MMOL/L (98-107) Carbon Dioxide Level 30 MMOL/L (21-32) Anion Gap 4 mmol/L (5-15) L Blood Urea Nitrogen 21 mg/dL (7-18) H Creatinine 0.7 MG/DL (0.55-1.30) Estimat Glomerular Filtration Rate mL/min (>60) Glucose Level 158 MG/DL (74-106) H Calcium Level 9.0 MG/DL (8.5-10.1) Height (Feet): 5 Height (Inches): 2.00 Weight (Pounds): 115 General Appearance: WD/WN, no apparent distress, alert Cardiovascular: normal rate Respiratory/Chest: normal breath sounds, no respiratory distress Abdominal Exam: normal bowel sounds, non tender, soft, GT site - Clean dry and intact Extremities: non-tender Objective Patient had bowel movement today Aidee Powell NP Dec 21, 2018 10:11
--- NOTE | 2018-12-21 13:00 | Infectious Diseases Prog Note ---
Assessment/Plan Assessment/Plan A; Sepsis UTI with E. coli Left hydronephrosis Subacute CVA Dementia Nephrolithiasis Pancytopenia DM type 2 History of DVT s/p IVC filter P; continue Ciprofloxacin X 2 days Subjective ROS Limited/Unobtainable: Yes Allergies: Coded Allergies: No Known Allergies (Unverified , 12/14/18) Objective Vital Signs Last 24 Hour Vital Signs Date Time Temp Pulse Resp B/P (MAP) Pulse Ox O2 Delivery O2 Flow Rate FiO2 12/21/18 09:00 Nasal Cannula 2.0 12/21/18 07:15 Nasal Cannula 2.0 28 12/21/18 07:15 80 18 Nasal Cannula 2.0 28 12/21/18 07:15 99 Nasal Cannula 2.0 28 12/21/18 05:48 111/50 12/21/18 04:00 72 12/21/18 04:00 97.6 70 20 111/50 (70) 100 12/21/18 00:00 68 12/21/18 00:00 127/56 12/21/18 00:00 98.2 69 18 127/56 (79) 100 12/20/18 21:00 Nasal Cannula 2.0 12/20/18 20:37 97 Nasal Cannula 2.0 28 12/20/18 20:37 77 18 Nasal Cannula 2.0 28 12/20/18 20:37 Nasal Cannula 2.0 28 12/20/18 20:00 75 12/20/18 20:00 98.3 78 18 117/55 (75) 99 12/20/18 17:29 130/63 12/20/18 17:26 130/63 12/20/18 16:00 98.4 84 18 130/63 (85) 99 12/20/18 16:00 75 Height (Feet): 5 Height (Inches): 2.00 Weight (Pounds): 115 General Appearance: no acute distress HEENT: mucous membranes moist Respiratory/Chest: lungs clear Cardiovascular: normal rate Abdomen: soft, non tender, other - GT feeding Extremities: no edema Neurologic/Psychiatric: aphasia, other - opens eyes Laboratory Tests Test 12/21/18 06:10 White Blood Count 2.6 K/UL (4.8-10.8) L Red Blood Count 2.65 M/UL (4.20-5.40) L Hemoglobin 8.4 G/DL (12.0-16.0) L Hematocrit 25.9 % (37.0-47.0) L Mean Corpuscular Volume 98 FL (80-99) Mean Corpuscular Hemoglobin 31.7 PG (27.0-31.0) H Mean Corpuscular Hemoglobin Concent 32.4 G/DL (32.0-36.0) Red Cell Distribution Width 16.4 % (11.6-14.8) H Platelet Count 65 K/UL (150-450) L Mean Platelet Volume 8.8 FL (6.5-10.1) Neutrophils (%) (Auto) % (45.0-75.0) Lymphocytes (%) (Auto) % (20.0-45.0) Monocytes (%) (Auto) % (1.0-10.0) Eosinophils (%) (Auto) % (0.0-3.0) Basophils (%) (Auto) % (0.0-2.0) Differential Total Cells Counted 100 Neutrophils % (Manual) 64 % (45-75) Lymphocytes % (Manual) 21 % (20-45) Monocytes % (Manual) 11 % (1-10) H Eosinophils % (Manual) 4 % (0-3) H Basophils % (Manual) 0 % (0-2) Band Neutrophils 0 % (0-8) Platelet Estimate Decreased L Platelet Morphology Normal Anisocytosis 1+ Sodium Level 140 MMOL/L (136-145) Potassium Level 4.0 MMOL/L (3.5-5.1) Chloride Level 106 MMOL/L (98-107) Carbon Dioxide Level 30 MMOL/L (21-32) Anion Gap 4 mmol/L (5-15) L Blood Urea Nitrogen 21 mg/dL (7-18) H Creatinine 0.7 MG/DL (0.55-1.30) Estimat Glomerular Filtration Rate mL/min (>60) Glucose Level 158 MG/DL (74-106) H Calcium Level 9.0 MG/DL (8.5-10.1) Current Medications Medications (Trade) Dose Ordered Sig/Laure Route PRN Reason Start Time Stop Time Status Last Admin Dose Admin Acetaminophen (Tylenol) 650 mg Q4H PRN GT Mild Pain/Temp > 100.5 12/19/18 11:00 01/13/19 10:59 Albuterol/ Ipratropium (Albuterol/ Ipratropium) 3 ml Q4H PRN HHN Shortness of Breath 12/20/18 10:45 12/25/18 10:44 Aspirin (ASA) 81 mg DAILY NG 12/19/18 15:30 01/18/19 15:29 12/21/18 09:29 Atorvastatin Calcium (Lipitor) 20 mg BEDTIME GT 12/19/18 21:00 01/17/19 20:59 12/20/18 21:55 Ciprofloxacin (Cipro 500mg tab) 500 mg EVERY 12 HOURS GT 12/19/18 21:00 12/23/18 10:59 12/21/18 09:29 Clopidogrel Bisulfate (Plavix) 75 mg DAILY GT 12/20/18 09:00 01/14/19 08:59 12/21/18 09:29 Dextrose (Dextrose 50%) 25 ml Q30M PRN IV Hypoglycemia 12/19/18 11:15 01/13/19 17:14 Dextrose (Dextrose 50%) 50 ml Q30M PRN IV Hypoglycemia 12/19/18 11:15 01/13/19 17:14 Hydralazine HCl (Apresoline) 10 mg Q6HR GT 12/19/18 12:00 01/17/19 17:59 12/21/18 05:48 Hydralazine HCl (Apresoline) 25 mg Q4H PRN GT bp over 160 syst 12/19/18 11:00 01/17/19 10:59 Insulin Aspart (NovoLOG) EVERY 6 HOURS SUBQ 12/19/18 12:00 01/13/19 20:59 12/21/18 05:53 Lansoprazole (Prevacid) 30 mg BID GT 12/19/18 18:00 01/15/19 17:59 12/21/18 09:29 Nitroglycerin (Ntg) 1 patch Q24H TDERMAL 12/19/18 17:00 01/13/19 16:59 12/20/18 17:29 Ondansetron HCl (Zofran ODT) 4 mg Q4HR ORAL 12/19/18 13:00 01/13/19 20:59 12/21/18 09:29 Shimon Card MD Dec 21, 2018 13:00
--- NOTE | 2018-12-21 13:18 | Nephrology Progress Note ---
Assessment/Plan Problem List: (1) Diabetic nephropathy (2) Hypokalemia (3) Anemia (4) UTI (urinary tract infection) Assessment Electrolyte imbalance UTI Anemia Low K Diabetic Nephropathy, HypoAlbuminemia CAD Plan DC Lopressor dose- On hydralazine K Phos , KCl , MgSo4 IV as needed antibiotics avoid nephrotoxics anemia mac per orders Subjective ROS Limited/Unobtainable: No Objective Objective Last 24 Hour Vital Signs Date Time Temp Pulse Resp B/P (MAP) Pulse Ox O2 Delivery O2 Flow Rate FiO2 12/21/18 09:00 Nasal Cannula 2.0 12/21/18 07:15 Nasal Cannula 2.0 28 12/21/18 07:15 80 18 Nasal Cannula 2.0 28 12/21/18 07:15 99 Nasal Cannula 2.0 28 12/21/18 05:48 111/50 12/21/18 04:00 72 12/21/18 04:00 97.6 70 20 111/50 (70) 100 12/21/18 00:00 68 12/21/18 00:00 127/56 12/21/18 00:00 98.2 69 18 127/56 (79) 100 12/20/18 21:00 Nasal Cannula 2.0 12/20/18 20:37 97 Nasal Cannula 2.0 28 12/20/18 20:37 77 18 Nasal Cannula 2.0 28 12/20/18 20:37 Nasal Cannula 2.0 28 12/20/18 20:00 75 12/20/18 20:00 98.3 78 18 117/55 (75) 99 12/20/18 17:29 130/63 12/20/18 17:26 130/63 12/20/18 16:00 98.4 84 18 130/63 (85) 99 12/20/18 16:00 75 Intake and Output 12/20/18 12/21/18 18:59 06:59 Intake Total 905 ml 55 ml Output Total 1250 ml Balance -345 ml 55 ml Free Water 300 ml Tube Feeding 605 ml 55 ml Output Urine Total 1250 ml # Bowel Movements 2 Laboratory Tests 12/21/18 06:10: White Blood Count 2.6L, Red Blood Count 2.65L, Hemoglobin 8.4L, Hematocrit 25.9L , Mean Corpuscular Volume 98, Mean Corpuscular Hemoglobin 31.7H, Mean Corpuscular Hemoglobin Concent 32.4, Red Cell Distribution Width 16.4H, Platelet Count 65L, Mean Platelet Volume 8.8, Neutrophils (%) (Auto) , Lymphocytes (%) (Auto) , Monocytes (%) (Auto) , Eosinophils (%) (Auto) , Basophils (%) (Auto) , Differential Total Cells Counted 100, Neutrophils % ( Manual) 64, Lymphocytes % (Manual) 21, Monocytes % (Manual) 11H, Eosinophils % ( Manual) 4H, Basophils % (Manual) 0, Band Neutrophils 0, Platelet Estimate DecreasedL, Platelet Morphology Normal, Anisocytosis 1+, Sodium Level 140, Potassium Level 4.0, Chloride Level 106, Carbon Dioxide Level 30, Anion Gap 4L, Blood Urea Nitrogen 21H, Creatinine 0.7, Estimat Glomerular Filtration Rate , Glucose Level 158H, Calcium Level 9.0 Height (Feet): 5 Height (Inches): 2.00 Weight (Pounds): 115 General Appearance: no apparent distress Objective no change Parvez Bergman MD Dec 21, 2018 13:18
--- NOTE | 2018-12-21 15:14 | NUR ---
Social Service Note TYREL faxed referral to Sarah at [facility] [phone]. Referral received pending review. Addendum: 12/21/18 at 1534 by HEIKE CALI TYREL spoke with Betty nurse case picker of [facility] [phone]. Betty will not approve LTAC placement. Once medically appropriate patient can return to previous facility [place]. Patient can transfer via [facility] ambulance. Auth# for hospital stay [id number].
--- NOTE | 2018-12-21 15:43 | General Progress Note ---
Assessment/Plan Assessment/Plan Assessment/Plan: # Decreased white blood cell count, Leukopenia --> if the total ANC is less than 2000, consider neupogen --> continue antibiotics with ID service, appreciate recs --> medications have been reviewed --> hepatitis and hiv negative Wbc trend: 4-->2.7-->2.2->2.8-->2.6 # Thrombocytopenia - potential causes multifactorial, evaluate liver and viral etiologies to begin, also could be related to underlying medications patient has received. --> Hep panel and HIV negative --> US abd to evaluate for cirrhosis and hsm reviewed --> Peripheral smear ordered to evaluate for blasts /schistocytes --> abx and other meds have been reviewed --> ok for ppx if plt >50k w/ either heparin or lovenox --> Transfuse if Plt < 20k and fever, or if Plt < 10k without fever --> PLT trend: 51-->58-->71-->65 # Pancytopenia, likely related to septicemia, appears new baseline 50-70k, several causes possible including viral, medication or intrabone marrow related. --> Cont to monitor plt count for improvement --> US abd: Mild left hydronephrosis. Possible left renal calyceal calculi. Negative for gallstones or dilated ducts Debris noted within the bladder --> Hep panel and HIV are both negative --> given extremely poor condition do not recommend a bone marrow biopsy, have discussed with family 08/01 with --> will rediscuss once sepsis resolves --> transfuse if plt <20k # Anemia of chronic disease. Multifactorial. Since admission Hgb has consistently remained between 8-9. --> Cont to monitor for stability --> Hgb goal above 7. Transfuse prn. --> IV iron completed prior admission and feritin is elevated # DVT of the left leg s/p IVC filter in 07/2018-- superficial femoral vein which is a deep vein, new onset, has not had these symptoms before. Lower hgb and plts --> given decreased h/h, low thrombocytopenia, do not recommend anticoag --> appreciate Dr. Parekh and Mariam alcantars from prior admission --> smear reviewed # Dehydration. IVF has been administered --> improved # DM OOC --> A1C goal <7 --> Cont on insulin # Bacteremia/prior UTI. --> ID is following. Appreciate recs. --> Pt on IV abx. --> Cultures surveillance as per id # PEG placement 08/04. Greatly appreciate consultation! Subjective ROS Limited/Unobtainable: Yes Allergies: Coded Allergies: No Known Allergies (Unverified , 12/14/18) Subjective 12/16: seen by bedside, awake, comfortable, hgb 8, plt 51 12/18: awake, non verbal on NC, no events, pending labs today 12/19: Pt is resting in bed, no events reported, plt 71 12/20: seen by bedside, awake, comfortable, no events 12/21: Awake, comfortable, no acute distress reported. Objective Last 24 Hour Vital Signs Date Time Temp Pulse Resp B/P (MAP) Pulse Ox O2 Delivery O2 Flow Rate FiO2 12/21/18 09:00 Nasal Cannula 2.0 12/21/18 07:15 Nasal Cannula 2.0 28 12/21/18 07:15 80 18 Nasal Cannula 2.0 28 12/21/18 07:15 99 Nasal Cannula 2.0 28 12/21/18 05:48 111/50 12/21/18 04:00 72 12/21/18 04:00 97.6 70 20 111/50 (70) 100 12/21/18 00:00 68 12/21/18 00:00 127/56 12/21/18 00:00 98.2 69 18 127/56 (79) 100 12/20/18 21:00 Nasal Cannula 2.0 12/20/18 20:37 97 Nasal Cannula 2.0 28 12/20/18 20:37 77 18 Nasal Cannula 2.0 28 12/20/18 20:37 Nasal Cannula 2.0 28 12/20/18 20:00 75 12/20/18 20:00 98.3 78 18 117/55 (75) 99 12/20/18 17:29 130/63 12/20/18 17:26 130/63 12/20/18 16:00 98.4 84 18 130/63 (85) 99 12/20/18 16:00 75 Intake and Output 12/20/18 12/21/18 18:59 06:59 Intake Total 905 ml 55 ml Output Total 1250 ml Balance -345 ml 55 ml Free Water 300 ml Tube Feeding 605 ml 55 ml Output Urine Total 1250 ml # Bowel Movements 2 Laboratory Tests 12/21/18 06:10: White Blood Count 2.6L, Red Blood Count 2.65L, Hemoglobin 8.4L, Hematocrit 25.9L , Mean Corpuscular Volume 98, Mean Corpuscular Hemoglobin 31.7H, Mean Corpuscular Hemoglobin Concent 32.4, Red Cell Distribution Width 16.4H, Platelet Count 65L, Mean Platelet Volume 8.8, Neutrophils (%) (Auto) , Lymphocytes (%) (Auto) , Monocytes (%) (Auto) , Eosinophils (%) (Auto) , Basophils (%) (Auto) , Differential Total Cells Counted 100, Neutrophils % ( Manual) 64, Lymphocytes % (Manual) 21, Monocytes % (Manual) 11H, Eosinophils % ( Manual) 4H, Basophils % (Manual) 0, Band Neutrophils 0, Platelet Estimate DecreasedL, Platelet Morphology Normal, Anisocytosis 1+, Sodium Level 140, Potassium Level 4.0, Chloride Level 106, Carbon Dioxide Level 30, Anion Gap 4L, Blood Urea Nitrogen 21H, Creatinine 0.7, Estimat Glomerular Filtration Rate , Glucose Level 158H, Calcium Level 9.0 Height (Feet): 5 Height (Inches): 2.00 Weight (Pounds): 115 Objective PHYSICAL EXAMINATION: VITAL SIGNS: Reviewed. Saturating 100% on 2 L. NC++ GENERAL: She is an elderly demented female, in no acute distress. Nonverbal. HEENT: Normocephalic and atraumatic. Oropharynx is clear. Moist mucous membranes. NECK: Supple without lymphadenopathy. CHEST: Clear, but rales at the bases. HEART: Regular rate and rhythm. ABDOMEN: Soft, nontender, and nondistended. ++ peg EXTREMITIES: No cyanosis, clubbing or edema. Dewayne Gayle MD Dec 21, 2018 15:43
[2018-12-21] MEDS: Nitroglycerin Patch 0.4mg TDERMAL SCH (17:00)
[2018-12-21] MEDS ORDERED: NS 275ml ONE (17:42)
--- NOTE | 2018-12-21 19:06 | NUR ---
report given to Shahab DYKES
--- NOTE | 2018-12-21 19:15 | NUR ---
NURSE NOTES: Received report from DONIS Marti. Patient awake, nonverbal but responsive to verbal and external stimuli. No SOB, no acute distress on 2 L via NC. IV sites on R wrist #22 and L wrist #22, both patent and intact. F/C intact and patent with yellow colored output. GTF of Glucerna 1.2 at 55 cc/hr, tolerating fairly, HOB elevated at all times. Pt on special mattress for pressure sore management. isolation precautions observed at all times. Bed at lowest position, call light within reach. Will continue plan of care.
[2018-12-21 20:00] VITALS: BP 126/68
[2018-12-21] MEDS: Atorvastatin 20mg tab GT SCH (20:47)
--- NOTE | 2018-12-21 21:41 | General Progress Note ---
Assessment/Plan Problem List: (1) Dementia with behavioral disturbance ICD Codes: F03.91 - Unspecified dementia with behavioral disturbance SNOMED: 4622058546287 (2) Fever ICD Codes: R50.9 - Fever, unspecified SNOMED: 830351814 (3) Dehydration ICD Codes: E86.0 - Dehydration SNOMED: 58450891 (4) Anemia ICD Codes: D64.9 - Anemia, unspecified SNOMED: 654867011 (5) Thrombocytopenia ICD Codes: D69.6 - Thrombocytopenia, unspecified SNOMED: 208101761 (6) CVA (cerebral vascular accident) ICD Codes: I63.9 - Cerebral infarction, unspecified SNOMED: 293658984 Qualifiers: Qualified Codes: I63.9 - Cerebral infarction, unspecified (7) Elevated troponin I level ICD Codes: R74.8 - Abnormal levels of other serum enzymes SNOMED: 575690605 (8) Diabetic nephropathy 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 SNOMED: 802734633 (9) Feeding by G-tube ICD Codes: Z93.1 - Gastrostomy status SNOMED: 845843584, 856102223, 200450314 Status: progressing Assessment/Plan more alert getting peg sepsis abx per id afebrile pna subacute cva pancytopenia check trop Subjective ROS Limited/Unobtainable: Yes Allergies: Coded Allergies: No Known Allergies (Unverified , 12/14/18) Objective Last 24 Hour Vital Signs Date Time Temp Pulse Resp B/P (MAP) Pulse Ox O2 Delivery O2 Flow Rate FiO2 12/21/18 21:00 Nasal Cannula 2.0 12/21/18 20:00 98.5 92 20 126/68 (87) 99 12/21/18 20:00 92 12/21/18 17:35 135/62 12/21/18 17:00 133/62 12/21/18 16:00 83 12/21/18 16:00 98.0 87 20 98 12/21/18 12:00 74 12/21/18 12:00 98.3 76 21 98 12/21/18 09:00 Nasal Cannula 2.0 12/21/18 08:00 98.3 74 20 125/56 (79) 99 12/21/18 08:00 81 12/21/18 07:15 Nasal Cannula 2.0 28 12/21/18 07:15 80 18 Nasal Cannula 2.0 28 12/21/18 07:15 99 Nasal Cannula 2.0 28 12/21/18 05:48 111/50 12/21/18 04:00 72 12/21/18 04:00 97.6 70 20 111/50 (70) 100 12/21/18 00:00 68 12/21/18 00:00 127/56 12/21/18 00:00 98.2 69 18 127/56 (79) 100 Intake and Output 12/20/18 12/21/18 19:00 07:00 Intake Total 960 ml Output Total 1250 ml Balance -290 ml Free Water 300 ml Tube Feeding 660 ml Output Urine Total 1250 ml # Bowel Movements 2 Laboratory Tests 12/21/18 06:10: White Blood Count 2.6L, Red Blood Count 2.65L, Hemoglobin 8.4L, Hematocrit 25.9L , Mean Corpuscular Volume 98, Mean Corpuscular Hemoglobin 31.7H, Mean Corpuscular Hemoglobin Concent 32.4, Red Cell Distribution Width 16.4H, Platelet Count 65L, Mean Platelet Volume 8.8, Neutrophils (%) (Auto) , Lymphocytes (%) (Auto) , Monocytes (%) (Auto) , Eosinophils (%) (Auto) , Basophils (%) (Auto) , Differential Total Cells Counted 100, Neutrophils % ( Manual) 64, Lymphocytes % (Manual) 21, Monocytes % (Manual) 11H, Eosinophils % ( Manual) 4H, Basophils % (Manual) 0, Band Neutrophils 0, Platelet Estimate DecreasedL, Platelet Morphology Normal, Anisocytosis 1+, Sodium Level 140, Potassium Level 4.0, Chloride Level 106, Carbon Dioxide Level 30, Anion Gap 4L, Blood Urea Nitrogen 21H, Creatinine 0.7, Estimat Glomerular Filtration Rate , Glucose Level 158H, Calcium Level 9.0 Height (Feet): 5 Height (Inches): 2.00 Weight (Pounds): 115 General Appearance: lethargic, confused Cardiovascular: normal rate Respiratory/Chest: lungs clear Abdomen: soft Yi Asencio MD Dec 21, 2018 21:41
--- NOTE | 2018-12-21 22:05 | Cardiology Progress Note ---
Assessment/Plan Assessment/Plan 1. Slight elevation of troponin I level likely demand ischemia, continue DAPT and atorvastatin. 2. History of cerebrovascular accident, continue DAPT and atorvastatin. 3. History of dementia. 4. Dysphagia, status post G-tube. 5. Thrombocytopenia. 6. Diabetes mellitus. 7. CVA with hemiplegia. Subjective Subjective Sinus rhythm at rate of 92. On NC oxygen. Objective Last 24 Hour Vital Signs Date Time Temp Pulse Resp B/P (MAP) Pulse Ox O2 Delivery O2 Flow Rate FiO2 12/21/18 21:00 Nasal Cannula 2.0 12/21/18 20:00 98.5 92 20 126/68 (87) 99 12/21/18 20:00 92 12/21/18 17:35 135/62 12/21/18 17:00 133/62 12/21/18 16:00 83 12/21/18 16:00 98.0 87 20 98 12/21/18 12:00 74 12/21/18 12:00 98.3 76 21 98 12/21/18 09:00 Nasal Cannula 2.0 12/21/18 08:00 98.3 74 20 125/56 (79) 99 12/21/18 08:00 81 12/21/18 07:15 Nasal Cannula 2.0 28 12/21/18 07:15 80 18 Nasal Cannula 2.0 28 12/21/18 07:15 99 Nasal Cannula 2.0 28 12/21/18 05:48 111/50 12/21/18 04:00 72 12/21/18 04:00 97.6 70 20 111/50 (70) 100 12/21/18 00:00 68 12/21/18 00:00 127/56 12/21/18 00:00 98.2 69 18 127/56 (79) 100 Intake and Output 12/20/18 12/21/18 19:00 07:00 Intake Total 960 ml Output Total 1250 ml Balance -290 ml Free Water 300 ml Tube Feeding 660 ml Output Urine Total 1250 ml # Bowel Movements 2 2D Echo: EF55%, Large left pleural eff., Grade I LVDD, Mild AR/Mod MR/ND,RVSP 37mmHg Laboratory Tests Test 12/21/18 06:10 White Blood Count 2.6 K/UL (4.8-10.8) L Red Blood Count 2.65 M/UL (4.20-5.40) L Hemoglobin 8.4 G/DL (12.0-16.0) L Hematocrit 25.9 % (37.0-47.0) L Mean Corpuscular Volume 98 FL (80-99) Mean Corpuscular Hemoglobin 31.7 PG (27.0-31.0) H Mean Corpuscular Hemoglobin Concent 32.4 G/DL (32.0-36.0) Red Cell Distribution Width 16.4 % (11.6-14.8) H Platelet Count 65 K/UL (150-450) L Mean Platelet Volume 8.8 FL (6.5-10.1) Neutrophils (%) (Auto) % (45.0-75.0) Lymphocytes (%) (Auto) % (20.0-45.0) Monocytes (%) (Auto) % (1.0-10.0) Eosinophils (%) (Auto) % (0.0-3.0) Basophils (%) (Auto) % (0.0-2.0) Differential Total Cells Counted 100 Neutrophils % (Manual) 64 % (45-75) Lymphocytes % (Manual) 21 % (20-45) Monocytes % (Manual) 11 % (1-10) H Eosinophils % (Manual) 4 % (0-3) H Basophils % (Manual) 0 % (0-2) Band Neutrophils 0 % (0-8) Platelet Estimate Decreased L Platelet Morphology Normal Anisocytosis 1+ Sodium Level 140 MMOL/L (136-145) Potassium Level 4.0 MMOL/L (3.5-5.1) Chloride Level 106 MMOL/L (98-107) Carbon Dioxide Level 30 MMOL/L (21-32) Anion Gap 4 mmol/L (5-15) L Blood Urea Nitrogen 21 mg/dL (7-18) H Creatinine 0.7 MG/DL (0.55-1.30) Estimat Glomerular Filtration Rate mL/min (>60) Glucose Level 158 MG/DL (74-106) H Calcium Level 9.0 MG/DL (8.5-10.1) Objective HEENT: Atraumatic and normocephalic. Anicteric. Pupils are equal, round, and reactive to light and accommodation. Extraocular muscles intact. NECK: JVP less than 5 cm. No carotid bruit. Carotid upstrokes is 2+ bilaterally. CARDIOVASCULAR: Normal S1, S2. Regular rate and rhythm. No murmurs, gallops, or rubs. LUNGS: Clear to auscultation bilaterally. ABDOMEN: Soft, nontender, and nondistended. No hepatosplenomegaly. Positive bowel sounds. There is presence of a G-tube. EXTREMITIES: No evidence of edema, clubbing, or cyanosis. Deepak Aldana MD Dec 21, 2018 22:05
--- NOTE | 2018-12-21 22:18 | Pulmonology Progress Note ---
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 (4) DVT (deep venous thrombosis) (5) Anemia (6) Thrombocytopenia (7) S/P IVC filter (8) Dementia with behavioral disturbance (9) Feeding by G-tube Assessment/Plan Optimize pulmonary hygiene/mobilize as tolerated PRN O2 PRN HHN's Abx per ID, F/U Cx's Monitor HH, transfuse as needed F/U GI recs F/U recs --> conservative management of hydronephrosis TF's as tolerated DVT Px: IVCF FC Continue to discuss GOC Subjective Allergies: Coded Allergies: No Known Allergies (Unverified , 12/14/18) Subjective AFVSS stable O2 needs No distress, no cough, no SOB, no F/C, leta TF's Objective Last 24 Hour Vital Signs Date Time Temp Pulse Resp B/P (MAP) Pulse Ox O2 Delivery O2 Flow Rate FiO2 12/21/18 21:00 Nasal Cannula 2.0 12/21/18 20:00 98.5 92 20 126/68 (87) 99 12/21/18 20:00 92 12/21/18 17:35 135/62 12/21/18 17:00 133/62 12/21/18 16:00 83 12/21/18 16:00 98.0 87 20 98 12/21/18 12:00 74 12/21/18 12:00 98.3 76 21 98 12/21/18 09:00 Nasal Cannula 2.0 12/21/18 08:00 98.3 74 20 125/56 (79) 99 12/21/18 08:00 81 12/21/18 07:15 Nasal Cannula 2.0 28 12/21/18 07:15 80 18 Nasal Cannula 2.0 28 12/21/18 07:15 99 Nasal Cannula 2.0 28 12/21/18 05:48 111/50 12/21/18 04:00 72 12/21/18 04:00 97.6 70 20 111/50 (70) 100 12/21/18 00:00 68 12/21/18 00:00 127/56 12/21/18 00:00 98.2 69 18 127/56 (79) 100 Intake and Output 12/20/18 12/21/18 19:00 07:00 Intake Total 960 ml Output Total 1250 ml Balance -290 ml Free Water 300 ml Tube Feeding 660 ml Output Urine Total 1250 ml # Bowel Movements 2 General Appearance: no acute distress, cachetic HEENT: normocephalic, atraumatic, anicteric, mucous membranes moist Respiratory/Chest: chest wall non-tender, lungs clear, normal breath sounds, no respiratory distress, no accessory muscle use Cardiovascular: normal peripheral pulses, normal rate, regular rhythm Abdomen: normal bowel sounds, soft, non tender, no organomegaly, non distended , no mass, other - GT Extremities: no cyanosis, no clubbing, no edema Laboratory Tests 12/21/18 06:10: White Blood Count 2.6L, Red Blood Count 2.65L, Hemoglobin 8.4L, Hematocrit 25.9L , Mean Corpuscular Volume 98, Mean Corpuscular Hemoglobin 31.7H, Mean Corpuscular Hemoglobin Concent 32.4, Red Cell Distribution Width 16.4H, Platelet Count 65L, Mean Platelet Volume 8.8, Neutrophils (%) (Auto) , Lymphocytes (%) (Auto) , Monocytes (%) (Auto) , Eosinophils (%) (Auto) , Basophils (%) (Auto) , Differential Total Cells Counted 100, Neutrophils % ( Manual) 64, Lymphocytes % (Manual) 21, Monocytes % (Manual) 11H, Eosinophils % ( Manual) 4H, Basophils % (Manual) 0, Band Neutrophils 0, Platelet Estimate DecreasedL, Platelet Morphology Normal, Anisocytosis 1+, Sodium Level 140, Potassium Level 4.0, Chloride Level 106, Carbon Dioxide Level 30, Anion Gap 4L, Blood Urea Nitrogen 21H, Creatinine 0.7, Estimat Glomerular Filtration Rate , Glucose Level 158H, Calcium Level 9.0 Current Medications Medications (Trade) Dose Ordered Sig/Laure Route PRN Reason Start Time Stop Time Status Last Admin Dose Admin Acetaminophen (Tylenol) 650 mg Q4H PRN GT Mild Pain/Temp > 100.5 12/19/18 11:00 01/13/19 10:59 Albuterol/ Ipratropium (Albuterol/ Ipratropium) 3 ml Q4H PRN HHN Shortness of Breath 12/20/18 10:45 12/25/18 10:44 Aspirin (ASA) 81 mg DAILY NG 12/19/18 15:30 01/18/19 15:29 12/21/18 09:29 Atorvastatin Calcium (Lipitor) 20 mg BEDTIME GT 12/19/18 21:00 01/17/19 20:59 12/21/18 20:47 Ciprofloxacin (Cipro 500mg tab) 500 mg EVERY 12 HOURS GT 12/19/18 21:00 12/23/18 10:59 12/21/18 20:47 Clopidogrel Bisulfate (Plavix) 75 mg DAILY GT 12/20/18 09:00 01/14/19 08:59 12/21/18 09:29 Dextrose (Dextrose 50%) 25 ml Q30M PRN IV Hypoglycemia 12/19/18 11:15 01/13/19 17:14 Dextrose (Dextrose 50%) 50 ml Q30M PRN IV Hypoglycemia 12/19/18 11:15 01/13/19 17:14 Hydralazine HCl (Apresoline) 10 mg Q6HR GT 12/19/18 12:00 01/17/19 17:59 12/21/18 17:35 Hydralazine HCl (Apresoline) 25 mg Q4H PRN GT bp over 160 syst 12/19/18 11:00 01/17/19 10:59 Insulin Aspart (NovoLOG) EVERY 6 HOURS SUBQ 12/19/18 12:00 01/13/19 20:59 12/21/18 17:41 Lansoprazole (Prevacid) 30 mg BID GT 12/19/18 18:00 01/15/19 17:59 12/21/18 17:35 Nitroglycerin (Ntg) 1 patch Q24H TDERMAL 12/19/18 17:00 01/13/19 16:59 12/20/18 17:29 Ondansetron HCl (Zofran ODT) 4 mg Q4HR ORAL 12/19/18 13:00 01/13/19 20:59 12/21/18 20:47 Foreign Parekh MD Dec 21, 2018 22:18
[2018-12-22] VITALS: BP 137/76
--- NOTE | 2018-12-22 02:54 | NUR ---
NURSE NOTES: Patient asleep, breathing even and unlabored, no s/sx of pain nor any discomfort at this time. GTF tolerating well, no residual noted. Bed at lowest position, call light within reach. Will continue to monitor.
[2018-12-22 04:00] VITALS: BP 133/72
[2018-12-22] MEDS: HydrALAZINE 10mg Tab GT SCH ×3 (05:40→17:53)
[2018-12-22] MEDS: NovoLOG Insulin Flexpen SUBQ SCH ×3 (05:41→17:54)
--- NOTE | 2018-12-22 06:26 | General Progress Note ---
Assessment/Plan Problem List: (1) Feeding by G-tube ICD Codes: Z93.1 - Gastrostomy status SNOMED: 788845106, 454010596, 118897426 (2) Altered mental status ICD Codes: R41.82 - Altered mental status, unspecified SNOMED: 645452914 (3) Thrombocytopenia ICD Codes: D69.6 - Thrombocytopenia, unspecified SNOMED: 929208585 (4) Sepsis ICD Codes: A41.9 - Sepsis, unspecified organism SNOMED: 98206197 Assessment/Plan continue Novolog sliding scale every 6 hours no need for basal insulin for now Subjective Allergies: Coded Allergies: No Known Allergies (Unverified , 12/14/18) All Systems: reviewed and negative except above Subjective events noted Item Value Date Time Bedside Blood Glucose 174 mg/dl H 12/22/18 0600 Bedside Blood Glucose 135 mg/dl H 12/22/18 0000 Bedside Blood Glucose 161 mg/dl H 12/21/18 1800 Bedside Blood Glucose 139 mg/dl H 12/21/18 1457 Bedside Blood Glucose 172 mg/dl H 12/21/18 0600 Bedside Blood Glucose 163 mg/dl H 12/21/18 0001 Objective Last 24 Hour Vital Signs Date Time Temp Pulse Resp B/P (MAP) Pulse Ox O2 Delivery O2 Flow Rate FiO2 12/22/18 05:40 120/60 12/22/18 04:00 86 12/22/18 04:00 98.2 86 20 133/72 (92) 97 12/22/18 00:00 98.2 88 20 137/76 (96) 97 12/22/18 00:00 88 12/21/18 23:38 137/76 12/21/18 21:00 Nasal Cannula 2.0 12/21/18 20:00 98.5 92 20 126/68 (87) 99 12/21/18 20:00 92 12/21/18 20:00 97 Nasal Cannula 2.0 28 12/21/18 20:00 Nasal Cannula 2.0 28 12/21/18 19:30 88 18 Nasal Cannula 2.0 28 12/21/18 17:35 135/62 12/21/18 17:00 133/62 12/21/18 16:00 83 12/21/18 16:00 98.0 87 20 98 12/21/18 12:00 74 12/21/18 12:00 98.3 76 21 98 12/21/18 09:00 Nasal Cannula 2.0 12/21/18 08:00 98.3 74 20 125/56 (79) 99 12/21/18 08:00 81 12/21/18 07:15 Nasal Cannula 2.0 28 12/21/18 07:15 80 18 Nasal Cannula 2.0 28 12/21/18 07:15 99 Nasal Cannula 2.0 28 Intake and Output 12/21/18 12/22/18 19:00 07:00 Intake Total 55 ml Output Total 100 ml 800 ml Balance -100 ml -745 ml Tube Feeding 55 ml Output Urine Total 100 ml 800 ml # Bowel Movements 1 Laboratory Tests 12/22/18 05:50: White Blood Count [Pending], Red Blood Count [Pending], Hemoglobin [Pending], Hematocrit [Pending], Mean Corpuscular Volume [Pending], Mean Corpuscular Hemoglobin [Pending], Mean Corpuscular Hemoglobin Concent [Pending], Red Cell Distribution Width [Pending], Platelet Count [Pending], Mean Platelet Volume [ Pending], Neutrophils (%) (Auto) [Pending], Lymphocytes (%) (Auto) [Pending], Monocytes (%) (Auto) [Pending], Eosinophils (%) (Auto) [Pending], Basophils (%) (Auto) [Pending], Sodium Level [Pending], Potassium Level [Pending], Chloride Level [Pending], Carbon Dioxide Level [Pending], Blood Urea Nitrogen [Pending], Creatinine [Pending], Estimat Glomerular Filtration Rate [Pending], Glucose Level [Pending], Calcium Level [Pending], Phosphorus Level [Pending], Magnesium Level [Pending] Height (Feet): 5 Height (Inches): 2.00 Weight (Pounds): 115 General Appearance: no apparent distress Neck: normal alignment Cardiovascular: normal rate Respiratory/Chest: normal breath sounds Abdomen: normal bowel sounds Objective Current Medications Medications (Trade) Dose Ordered Sig/Laure Route PRN Reason Start Time Stop Time Status Last Admin Dose Admin Acetaminophen (Tylenol) 650 mg Q4H PRN GT Mild Pain/Temp > 100.5 12/19/18 11:00 01/13/19 10:59 Albuterol/ Ipratropium (Albuterol/ Ipratropium) 3 ml Q4H PRN HHN Shortness of Breath 12/20/18 10:45 12/25/18 10:44 Aspirin (ASA) 81 mg DAILY NG 12/19/18 15:30 01/18/19 15:29 12/21/18 09:29 Atorvastatin Calcium (Lipitor) 20 mg BEDTIME GT 12/19/18 21:00 01/17/19 20:59 12/21/18 20:47 Ciprofloxacin (Cipro 500mg tab) 500 mg EVERY 12 HOURS GT 12/19/18 21:00 12/23/18 10:59 12/21/18 20:47 Clopidogrel Bisulfate (Plavix) 75 mg DAILY GT 12/20/18 09:00 01/14/19 08:59 12/21/18 09:29 Dextrose (Dextrose 50%) 25 ml Q30M PRN IV Hypoglycemia 12/19/18 11:15 01/13/19 17:14 Dextrose (Dextrose 50%) 50 ml Q30M PRN IV Hypoglycemia 12/19/18 11:15 01/13/19 17:14 Hydralazine HCl (Apresoline) 10 mg Q6HR GT 12/19/18 12:00 01/17/19 17:59 12/22/18 05:40 Hydralazine HCl (Apresoline) 25 mg Q4H PRN GT bp over 160 syst 12/19/18 11:00 01/17/19 10:59 Insulin Aspart (NovoLOG) EVERY 6 HOURS SUBQ 12/19/18 12:00 01/13/19 20:59 12/22/18 05:41 Lansoprazole (Prevacid) 30 mg BID GT 12/19/18 18:00 01/15/19 17:59 12/21/18 17:35 Nitroglycerin (Ntg) 1 patch Q24H TDERMAL 12/19/18 17:00 01/13/19 16:59 12/20/18 17:29 Ondansetron HCl (Zofran ODT) 4 mg Q4HR ORAL 12/19/18 13:00 01/13/19 20:59 12/22/18 04:35 Enrique Tafoya MD Dec 22, 2018 06:26
[2018-12-22 06:38] LABS: HEMATOCRIT 27.3 % (37.0-47.0); HEMOGLOBIN 8.7 G/DL (12.0-16.0); MEAN CORPUSCULAR VOLUME 98 FL (80-99); PLATELET COUNT 71 K/UL (150-450); RED CELL DISTRIBUTION WIDTH 15.8 % (11.6-14.8); WHITE BLOOD COUNT 2.8 K/UL (4.8-10.8)
--- NOTE | 2018-12-22 07:07 | NUR ---
HAND-OFF: Report given to DONIS Rubi. Endorsed plan of care.
[2018-12-22 07:23] LABS: ANION GAP 2 mmol/L (5-15); BLOOD UREA NITROGEN 20 mg/dL (7-18); CALCIUM 9.2 MG/DL (8.5-10.1); CARBON DIOXIDE 33 MMOL/L (21-32); CHLORIDE 104 MMOL/L (98-107); CREATININE 0.8 MG/DL (0.55-1.30); PHOSPHORUS 3.4 MG/DL (2.5-4.9); POTASSIUM 3.5 MMOL/L (3.5-5.1); SODIUM 139 MMOL/L (136-145)
--- NOTE | 2018-12-22 07:34 | NUR ---
NURSE NOTES: Received report from DONIS Herrera. Patient in bed resting, open eyes spontaneously, nonverbal, no active s/s cardiac, respiratory distress noticed at this time, patient on 2L oxygen via NC. GT in place, Glucerna 1.2 running at 55ml/h, IV on right wrist 22G, asymptomatic, patent, intact, Leiva catcher draining well to gravity. Bed in lowest position, side rails xup3, call light within reach. Will continue to monitor.
[2018-12-22 08:00] VITALS: BP 137/64
[2018-12-22] MEDS: Ciprofloxacin 500mg tab GT SCH ×2 (08:02→21:45)
[2018-12-22] MEDS: Aspirin Baby 81mg NG SCH (08:02)
--- NOTE | 2018-12-22 10:46 | Infectious Diseases Prog Note ---
Assessment/Plan Assessment/Plan antibiotics : ciprofloxacin A 1. e.coli UTI 2. pneumonia 3. bilateral renal calculus 4. left ureteral calculus 5. diabetes mellitus 6. CVA P 1. continue ciprofloxacin 1 more day 2. will follow up cultures Subjective ROS Limited/Unobtainable: Yes Allergies: Coded Allergies: No Known Allergies (Unverified , 12/14/18) Objective Vital Signs Last 24 Hour Vital Signs Date Time Temp Pulse Resp B/P (MAP) Pulse Ox O2 Delivery O2 Flow Rate FiO2 12/22/18 09:00 Nasal Cannula 2.0 12/22/18 08:00 98.1 77 20 137/64 (88) 100 12/22/18 05:40 120/60 12/22/18 04:00 86 12/22/18 04:00 98.2 86 20 133/72 (92) 97 12/22/18 00:00 98.2 88 20 137/76 (96) 97 12/22/18 00:00 88 12/21/18 23:38 137/76 12/21/18 21:00 Nasal Cannula 2.0 12/21/18 20:00 98.5 92 20 126/68 (87) 99 12/21/18 20:00 92 12/21/18 20:00 97 Nasal Cannula 2.0 28 12/21/18 20:00 Nasal Cannula 2.0 28 12/21/18 19:30 88 18 Nasal Cannula 2.0 28 12/21/18 17:35 135/62 12/21/18 17:00 133/62 12/21/18 16:00 83 12/21/18 16:00 98.0 87 20 98 12/21/18 12:00 74 12/21/18 12:00 98.3 76 21 98 Height (Feet): 5 Height (Inches): 2.00 Weight (Pounds): 115 Respiratory/Chest: lungs clear Cardiovascular: normal rate, regular rhythm, no gallop/murmur Abdomen: soft, non tender, other - GT Extremities: no edema Laboratory Tests Test 12/22/18 05:50 White Blood Count 2.8 K/UL (4.8-10.8) L Red Blood Count 2.80 M/UL (4.20-5.40) L Hemoglobin 8.7 G/DL (12.0-16.0) L Hematocrit 27.3 % (37.0-47.0) L Mean Corpuscular Volume 98 FL (80-99) Mean Corpuscular Hemoglobin 31.0 PG (27.0-31.0) Mean Corpuscular Hemoglobin Concent 31.7 G/DL (32.0-36.0) L Red Cell Distribution Width 15.8 % (11.6-14.8) H Platelet Count 71 K/UL (150-450) L Mean Platelet Volume 8.2 FL (6.5-10.1) Neutrophils (%) (Auto) % (45.0-75.0) Lymphocytes (%) (Auto) % (20.0-45.0) Monocytes (%) (Auto) % (1.0-10.0) Eosinophils (%) (Auto) % (0.0-3.0) Basophils (%) (Auto) % (0.0-2.0) Differential Total Cells Counted 100 Neutrophils % (Manual) 84 % (45-75) H Lymphocytes % (Manual) 13 % (20-45) L Monocytes % (Manual) 2 % (1-10) Eosinophils % (Manual) 1 % (0-3) Basophils % (Manual) 0 % (0-2) Band Neutrophils 0 % (0-8) Platelet Estimate Decreased L Platelet Morphology Normal Sodium Level 139 MMOL/L (136-145) Potassium Level 3.5 MMOL/L (3.5-5.1) Chloride Level 104 MMOL/L (98-107) Carbon Dioxide Level 33 MMOL/L (21-32) H Anion Gap 2 mmol/L (5-15) L Blood Urea Nitrogen 20 mg/dL (7-18) H Creatinine 0.8 MG/DL (0.55-1.30) Estimat Glomerular Filtration Rate mL/min (>60) Glucose Level 172 MG/DL (74-106) H Calcium Level 9.2 MG/DL (8.5-10.1) Phosphorus Level 3.4 MG/DL (2.5-4.9) Magnesium Level 2.1 MG/DL (1.8-2.4) Current Medications Medications (Trade) Dose Ordered Sig/Laure Route PRN Reason Start Time Stop Time Status Last Admin Dose Admin Acetaminophen (Tylenol) 650 mg Q4H PRN GT Mild Pain/Temp > 100.5 12/19/18 11:00 4/5/19 10:59 Albuterol/ Ipratropium (Albuterol/ Ipratropium) 3 ml Q4H PRN HHN Shortness of Breath 12/20/18 10:45 12/25/18 10:44 Aspirin (ASA) 81 mg DAILY NG 12/19/18 15:30 01/18/19 15:29 12/22/18 08:02 Atorvastatin Calcium (Lipitor) 20 mg BEDTIME GT 12/19/18 21:00 01/17/19 20:59 12/21/18 20:47 Ciprofloxacin (Cipro 500mg tab) 500 mg EVERY 12 HOURS GT 12/19/18 21:00 12/23/18 10:59 12/22/18 08:02 Clopidogrel Bisulfate (Plavix) 75 mg DAILY GT 12/20/18 09:00 01/14/19 08:59 12/22/18 08:02 Dextrose (Dextrose 50%) 25 ml Q30M PRN IV Hypoglycemia 12/19/18 11:15 01/13/19 17:14 Dextrose (Dextrose 50%) 50 ml Q30M PRN IV Hypoglycemia 12/19/18 11:15 01/13/19 17:14 Hydralazine HCl (Apresoline) 10 mg Q6HR GT 12/19/18 12:00 01/17/19 17:59 12/22/18 05:40 Hydralazine HCl (Apresoline) 25 mg Q4H PRN GT bp over 160 syst 12/19/18 11:00 01/17/19 10:59 Insulin Aspart (NovoLOG) EVERY 6 HOURS SUBQ 12/19/18 12:00 01/13/19 20:59 12/22/18 05:41 Lansoprazole (Prevacid) 30 mg BID GT 12/19/18 18:00 01/15/19 17:59 12/22/18 08:02 Nitroglycerin (Ntg) 1 patch Q24H TDERMAL 12/19/18 17:00 01/13/19 16:59 12/20/18 17:29 Ondansetron HCl (Zofran ODT) 4 mg Q4HR ORAL 12/19/18 13:00 01/13/19 20:59 12/22/18 08:02 Jasmine Lechuga MD Dec 22, 2018 10:46
--- NOTE | 2018-12-22 10:51 | NUR ---
CASE MANAGEMENT:REVIEW 12/20/18 SI SEPSIS. UTI 99.5 100 18 131/73 98% ON 2L/NC WBC-2.8 H/H-8.8/27.6 PLT-71 K-3.3 BUN+21 IS: K-DUR 40MEQ GT X1 PLAVIX GT QD LIPITOR GT QHS CIPRO GT Q12 PREVACID GT BID ASA GT QD ZOFRAN GT Q4HRS HYDRALAZINE GT Q6HRS : TELEMETRY STATUS 12/21/18 SI: SEPSIS. UTI 98.3 74 20 125/56 99% ON 2L/NC WBC-2.6 H/H-8.4/25.9 PLT-65 GLUCOSE+158 IS: PLAVIX GT QD LIPITOR GT QHS CIPRO GT Q12 PREVACID GT BID ASA GT QD ZOFRAN GT Q4HRS HYDRALAZINE GT Q6HRS : TELEMETRY STATUS DCP; PATIENT IS FROM [facility] 12/22/18 SI: SEPSIS. UTI 98.1 77 20 137/64 100% ON 2L/NC WBC-2.8 H/H-8.7/27.3 PLT-71 IS: PLAVIX GT QD LIPITOR GT QHS CIPRO GT Q12 PREVACID GT BID ASA GT QD ZOFRAN GT Q4HRS HYDRALAZINE GT Q6HRS : TELEMETRY STATUS DCP: PATIENT IS FROM [facility]
--- NOTE | 2018-12-22 11:10 | GI Progress Note ---
Assessment/Plan Problems: (1) Altered mental status ICD Codes: R41.82 - Altered mental status, unspecified SNOMED: 419279124 (2) Anemia ICD Codes: D64.9 - Anemia, unspecified SNOMED: 632928913 (3) Thrombocytopenia ICD Codes: D69.6 - Thrombocytopenia, unspecified SNOMED: 198493028 (4) Malnutrition ICD Codes: E46 - Unspecified protein-calorie malnutrition SNOMED: 54581468 (5) Dehydration ICD Codes: E86.0 - Dehydration SNOMED: 14537025 Status: stable Status Narrative Discussed with Dr. Argueta. Assessment/Plan Abdominal US reviewed, see full report. Equivocally slightly coarsened hepatic echogenicity, could indicate hepatocellular disease. GTF per RD, tolerating prn transfusions ppi reglan if needed abx per ID supportive care fu labs The patient was seen and examined at bedside and all new and available data was reviewed in the patients chart. I agree with the above findings, impression and plan. (Patient seen earlier today. Signature stamp does not reflect patient encounter time.). - Edwardo Argueta MD Subjective Subjective limited Objective Last 24 Hour Vital Signs Date Time Temp Pulse Resp B/P (MAP) Pulse Ox O2 Delivery O2 Flow Rate FiO2 12/22/18 09:00 Nasal Cannula 2.0 12/22/18 08:00 98.1 77 20 137/64 (88) 100 12/22/18 05:40 120/60 12/22/18 04:00 86 12/22/18 04:00 98.2 86 20 133/72 (92) 97 12/22/18 00:00 98.2 88 20 137/76 (96) 97 12/22/18 00:00 88 12/21/18 23:38 137/76 12/21/18 21:00 Nasal Cannula 2.0 12/21/18 20:00 98.5 92 20 126/68 (87) 99 12/21/18 20:00 92 12/21/18 20:00 97 Nasal Cannula 2.0 28 12/21/18 20:00 Nasal Cannula 2.0 28 12/21/18 19:30 88 18 Nasal Cannula 2.0 28 12/21/18 17:35 135/62 12/21/18 17:00 133/62 12/21/18 16:00 83 12/21/18 16:00 98.0 87 20 98 12/21/18 12:00 74 12/21/18 12:00 98.3 76 21 98 Intake and Output 12/21/18 12/22/18 19:00 07:00 Intake Total 55 ml Output Total 100 ml 800 ml Balance -100 ml -745 ml Tube Feeding 55 ml Output Urine Total 100 ml 800 ml # Bowel Movements 1 Laboratory Tests Test 12/22/18 05:50 White Blood Count 2.8 K/UL (4.8-10.8) L Red Blood Count 2.80 M/UL (4.20-5.40) L Hemoglobin 8.7 G/DL (12.0-16.0) L Hematocrit 27.3 % (37.0-47.0) L Mean Corpuscular Volume 98 FL (80-99) Mean Corpuscular Hemoglobin 31.0 PG (27.0-31.0) Mean Corpuscular Hemoglobin Concent 31.7 G/DL (32.0-36.0) L Red Cell Distribution Width 15.8 % (11.6-14.8) H Platelet Count 71 K/UL (150-450) L Mean Platelet Volume 8.2 FL (6.5-10.1) Neutrophils (%) (Auto) % (45.0-75.0) Lymphocytes (%) (Auto) % (20.0-45.0) Monocytes (%) (Auto) % (1.0-10.0) Eosinophils (%) (Auto) % (0.0-3.0) Basophils (%) (Auto) % (0.0-2.0) Differential Total Cells Counted 100 Neutrophils % (Manual) 84 % (45-75) H Lymphocytes % (Manual) 13 % (20-45) L Monocytes % (Manual) 2 % (1-10) Eosinophils % (Manual) 1 % (0-3) Basophils % (Manual) 0 % (0-2) Band Neutrophils 0 % (0-8) Platelet Estimate Decreased L Platelet Morphology Normal Sodium Level 139 MMOL/L (136-145) Potassium Level 3.5 MMOL/L (3.5-5.1) Chloride Level 104 MMOL/L (98-107) Carbon Dioxide Level 33 MMOL/L (21-32) H Anion Gap 2 mmol/L (5-15) L Blood Urea Nitrogen 20 mg/dL (7-18) H Creatinine 0.8 MG/DL (0.55-1.30) Estimat Glomerular Filtration Rate mL/min (>60) Glucose Level 172 MG/DL (74-106) H Calcium Level 9.2 MG/DL (8.5-10.1) Phosphorus Level 3.4 MG/DL (2.5-4.9) Magnesium Level 2.1 MG/DL (1.8-2.4) Height (Feet): 5 Height (Inches): 2.00 Weight (Pounds): 115 General Appearance: WD/WN, no apparent distress, alert Cardiovascular: normal rate Respiratory/Chest: normal breath sounds, no respiratory distress Abdominal Exam: normal bowel sounds, non tender, soft, GT site - c/d/i Extremities: non-tender Objective Patient had bowel movement today Aidee Powell NP Dec 22, 2018 11:10
[2018-12-22 12:00] VITALS: BP 143/56
--- NOTE | 2018-12-22 14:17 | NUR ---
*-* INSURANCE *-* UPDATED CLINICALS HAVE BEEN FAXED TO: DIANE F: [phone]
--- NOTE | 2018-12-22 14:19 | Nephrology Progress Note ---
Assessment/Plan Problem List: (1) Diabetic nephropathy (2) Hypokalemia (3) Anemia (4) UTI (urinary tract infection) Assessment Electrolyte imbalance UTI Anemia Low K Diabetic Nephropathy, HypoAlbuminemia CAD Plan DC Lopressor dose- On hydralazine K Phos , KCl , MgSo4 IV as needed antibiotics avoid nephrotoxics anemia mac per orders Subjective ROS Limited/Unobtainable: No Constitutional: Reports: malaise, weakness Objective Objective Last 24 Hour Vital Signs Date Time Temp Pulse Resp B/P (MAP) Pulse Ox O2 Delivery O2 Flow Rate FiO2 12/22/18 12:40 143/56 12/22/18 12:00 80 12/22/18 12:00 98.2 80 20 143/56 (85) 95 12/22/18 09:00 Nasal Cannula 2.0 12/22/18 08:00 98.1 77 20 137/64 (88) 100 12/22/18 08:00 81 12/22/18 05:40 120/60 12/22/18 04:00 86 12/22/18 04:00 98.2 86 20 133/72 (92) 97 12/22/18 00:00 98.2 88 20 137/76 (96) 97 12/22/18 00:00 88 12/21/18 23:38 137/76 12/21/18 21:00 Nasal Cannula 2.0 12/21/18 20:00 98.5 92 20 126/68 (87) 99 12/21/18 20:00 92 12/21/18 20:00 97 Nasal Cannula 2.0 28 12/21/18 20:00 Nasal Cannula 2.0 28 12/21/18 19:30 88 18 Nasal Cannula 2.0 28 12/21/18 17:35 135/62 12/21/18 17:00 133/62 12/21/18 16:00 83 12/21/18 16:00 98.0 87 20 98 Intake and Output 12/21/18 12/22/18 18:59 06:59 Intake Total 55 ml Output Total 100 ml 800 ml Balance -100 ml -745 ml Tube Feeding 55 ml Output Urine Total 100 ml 800 ml # Bowel Movements 1 Laboratory Tests 12/22/18 05:50: White Blood Count 2.8L, Red Blood Count 2.80L, Hemoglobin 8.7L, Hematocrit 27.3L , Mean Corpuscular Volume 98, Mean Corpuscular Hemoglobin 31.0, Mean Corpuscular Hemoglobin Concent 31.7L, Red Cell Distribution Width 15.8H, Platelet Count 71L, Mean Platelet Volume 8.2, Neutrophils (%) (Auto) , Lymphocytes (%) (Auto) , Monocytes (%) (Auto) , Eosinophils (%) (Auto) , Basophils (%) (Auto) , Differential Total Cells Counted 100, Neutrophils % ( Manual) 84H, Lymphocytes % (Manual) 13L, Monocytes % (Manual) 2, Eosinophils % ( Manual) 1, Basophils % (Manual) 0, Band Neutrophils 0, Platelet Estimate DecreasedL, Platelet Morphology Normal, Sodium Level 139, Potassium Level 3.5, Chloride Level 104, Carbon Dioxide Level 33H, Anion Gap 2L, Blood Urea Nitrogen 20H, Creatinine 0.8, Estimat Glomerular Filtration Rate , Glucose Level 172H, Calcium Level 9.2, Phosphorus Level 3.4, Magnesium Level 2.1 Height (Feet): 5 Height (Inches): 2.00 Weight (Pounds): 115 General Appearance: no apparent distress Cardiovascular: normal rate Respiratory/Chest: decreased breath sounds Abdomen: soft Objective no change Parvez Bergman MD Dec 22, 2018 14:19
--- NOTE | 2018-12-22 15:05 | Pulmonology Progress Note ---
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 (4) DVT (deep venous thrombosis) (5) Anemia (6) Thrombocytopenia (7) S/P IVC filter (8) Dementia with behavioral disturbance (9) Feeding by G-tube Assessment/Plan Optimize pulmonary hygiene/mobilize as tolerated PRN O2 PRN HHN's Abx per ID, F/U Cx's Monitor HH, transfuse as needed F/U GI recs F/U recs --> conservative management of hydronephrosis TF's as tolerated DVT Px: IVCF FC Continue to discuss GOC Subjective Allergies: Coded Allergies: No Known Allergies (Unverified , 12/14/18) Subjective AFVSS stable O2 needs No distress, no cough, no SOB, no F/C, leta TF's Objective Last 24 Hour Vital Signs Date Time Temp Pulse Resp B/P (MAP) Pulse Ox O2 Delivery O2 Flow Rate FiO2 12/22/18 12:40 143/56 12/22/18 12:00 80 12/22/18 12:00 98.2 80 20 143/56 (85) 95 12/22/18 09:00 Nasal Cannula 2.0 12/22/18 08:00 98.1 77 20 137/64 (88) 100 12/22/18 08:00 81 12/22/18 05:40 120/60 12/22/18 04:00 86 12/22/18 04:00 98.2 86 20 133/72 (92) 97 12/22/18 00:00 98.2 88 20 137/76 (96) 97 12/22/18 00:00 88 12/21/18 23:38 137/76 12/21/18 21:00 Nasal Cannula 2.0 12/21/18 20:00 98.5 92 20 126/68 (87) 99 12/21/18 20:00 92 12/21/18 20:00 97 Nasal Cannula 2.0 28 12/21/18 20:00 Nasal Cannula 2.0 28 12/21/18 19:30 88 18 Nasal Cannula 2.0 28 12/21/18 17:35 135/62 12/21/18 17:00 133/62 12/21/18 16:00 83 12/21/18 16:00 98.0 87 20 98 Intake and Output 12/21/18 12/22/18 19:00 07:00 Intake Total 55 ml Output Total 100 ml 800 ml Balance -100 ml -745 ml Tube Feeding 55 ml Output Urine Total 100 ml 800 ml # Bowel Movements 1 General Appearance: WD/WN, cachetic HEENT: normocephalic, atraumatic, anicteric, mucous membranes moist Respiratory/Chest: rhonchi Cardiovascular: normal peripheral pulses, normal rate, regular rhythm Abdomen: normal bowel sounds, soft, non tender, no organomegaly, non distended , no mass, other - GT Extremities: no cyanosis, no clubbing, other - trace SEUN Laboratory Tests 12/22/18 05:50: White Blood Count 2.8L, Red Blood Count 2.80L, Hemoglobin 8.7L, Hematocrit 27.3L , Mean Corpuscular Volume 98, Mean Corpuscular Hemoglobin 31.0, Mean Corpuscular Hemoglobin Concent 31.7L, Red Cell Distribution Width 15.8H, Platelet Count 71L, Mean Platelet Volume 8.2, Neutrophils (%) (Auto) , Lymphocytes (%) (Auto) , Monocytes (%) (Auto) , Eosinophils (%) (Auto) , Basophils (%) (Auto) , Differential Total Cells Counted 100, Neutrophils % ( Manual) 84H, Lymphocytes % (Manual) 13L, Monocytes % (Manual) 2, Eosinophils % ( Manual) 1, Basophils % (Manual) 0, Band Neutrophils 0, Platelet Estimate DecreasedL, Platelet Morphology Normal, Sodium Level 139, Potassium Level 3.5, Chloride Level 104, Carbon Dioxide Level 33H, Anion Gap 2L, Blood Urea Nitrogen 20H, Creatinine 0.8, Estimat Glomerular Filtration Rate , Glucose Level 172H, Calcium Level 9.2, Phosphorus Level 3.4, Magnesium Level 2.1 Current Medications Medications (Trade) Dose Ordered Sig/Laure Route PRN Reason Start Time Stop Time Status Last Admin Dose Admin Acetaminophen (Tylenol) 650 mg Q4H PRN GT Mild Pain/Temp > 100.5 12/19/18 11:00 01/13/19 10:59 Albuterol/ Ipratropium (Albuterol/ Ipratropium) 3 ml Q4H PRN HHN Shortness of Breath 12/20/18 10:45 12/25/18 10:44 Aspirin (ASA) 81 mg DAILY NG 12/19/18 15:30 01/18/19 15:29 12/22/18 08:02 Atorvastatin Calcium (Lipitor) 20 mg BEDTIME GT 12/19/18 21:00 01/17/19 20:59 12/21/18 20:47 Ciprofloxacin (Cipro 500mg tab) 500 mg EVERY 12 HOURS GT 12/19/18 21:00 12/23/18 10:59 12/22/18 08:02 Clopidogrel Bisulfate (Plavix) 75 mg DAILY GT 12/20/18 09:00 01/14/19 08:59 12/22/18 08:02 Dextrose (Dextrose 50%) 25 ml Q30M PRN IV Hypoglycemia 12/19/18 11:15 01/13/19 17:14 Dextrose (Dextrose 50%) 50 ml Q30M PRN IV Hypoglycemia 12/19/18 11:15 01/13/19 17:14 Hydralazine HCl (Apresoline) 10 mg Q6HR GT 12/19/18 12:00 01/17/19 17:59 12/22/18 12:40 Hydralazine HCl (Apresoline) 25 mg Q4H PRN GT bp over 160 syst 12/19/18 11:00 01/17/19 10:59 Insulin Aspart (NovoLOG) EVERY 6 HOURS SUBQ 12/19/18 12:00 01/13/19 20:59 12/22/18 12:39 Lansoprazole (Prevacid) 30 mg BID GT 12/19/18 18:00 01/15/19 17:59 12/22/18 08:02 Nitroglycerin (Ntg) 1 patch Q24H TDERMAL 12/19/18 17:00 01/13/19 16:59 12/20/18 17:29 Ondansetron HCl (Zofran ODT) 4 mg Q4HR ORAL 12/19/18 13:00 01/13/19 20:59 12/22/18 12:39 Potassium Chloride (K-Dur) 20 meq TWICE A DAY GT 12/22/18 18:00 01/21/19 17:59 Foreign Parekh MD Dec 22, 2018 15:05
[2018-12-22 16:00] VITALS: BP 124/68
[2018-12-22] MEDS: Nitroglycerin Patch 0.4mg TDERMAL SCH (17:52)
--- NOTE | 2018-12-22 19:45 | NUR ---
HAND-OFF: Report given to DONIS Edmond.
--- NOTE | 2018-12-22 19:47 | NUR ---
NURSE NOTES: Received report from Levar Lainez RN. Patient in bed awake with HOB elevated at semifowlers for aspiration precaution. No complaints of acute pain or distress at this time, kept clean, dry, and comfortable in bed at all times with urinal within reach as needed. IV line intact and patent SL. Currently on 2L NC with no S/S of resp distress, 02 sat at 95-97% and is also placed on continuous cardiac monitoring per protocol. Safety precaution in place at all times; siderails x3 up, call light within reach, bed in lowest position, brakes and alarm on at all times. needs and wants anticipated and attended. Will continue plan of care and monitor for any changes noted.
[2018-12-22 20:00] VITALS: BP 137/67
--- NOTE | 2018-12-22 20:31 | General Progress Note ---
Assessment/Plan Problem List: (1) Dementia with behavioral disturbance ICD Codes: F03.91 - Unspecified dementia with behavioral disturbance SNOMED: 4501496143052 (2) Fever ICD Codes: R50.9 - Fever, unspecified SNOMED: 947091225 (3) Dehydration ICD Codes: E86.0 - Dehydration SNOMED: 45764308 (4) Anemia ICD Codes: D64.9 - Anemia, unspecified SNOMED: 185523506 (5) Thrombocytopenia ICD Codes: D69.6 - Thrombocytopenia, unspecified SNOMED: 554648599 (6) CVA (cerebral vascular accident) ICD Codes: I63.9 - Cerebral infarction, unspecified SNOMED: 338967185 Qualifiers: Qualified Codes: I63.9 - Cerebral infarction, unspecified (7) Elevated troponin I level ICD Codes: R74.8 - Abnormal levels of other serum enzymes SNOMED: 014004706 (8) Diabetic nephropathy 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 SNOMED: 139378060 (9) Feeding by G-tube ICD Codes: Z93.1 - Gastrostomy status SNOMED: 629775122, 736135700, 137865742 Status: progressing Assessment/Plan malnutrition afebrile uti sepsis no bleeding reviewd chart and labs pna subacute cva pancytopenia check trop Subjective ROS Limited/Unobtainable: Yes Allergies: Coded Allergies: No Known Allergies (Unverified , 12/14/18) Objective Last 24 Hour Vital Signs Date Time Temp Pulse Resp B/P (MAP) Pulse Ox O2 Delivery O2 Flow Rate FiO2 12/22/18 17:53 124/68 12/22/18 17:52 124/68 12/22/18 16:00 89 12/22/18 16:00 98.0 92 20 124/68 (86) 98 12/22/18 12:40 143/56 12/22/18 12:00 80 12/22/18 12:00 98.2 80 20 143/56 (85) 95 12/22/18 09:00 Nasal Cannula 2.0 12/22/18 08:00 98.1 77 20 137/64 (88) 100 12/22/18 08:00 81 12/22/18 05:40 120/60 12/22/18 04:00 86 12/22/18 04:00 98.2 86 20 133/72 (92) 97 12/22/18 00:00 98.2 88 20 137/76 (96) 97 12/22/18 00:00 88 12/21/18 23:38 137/76 12/21/18 21:00 Nasal Cannula 2.0 Intake and Output 12/21/18 12/22/18 18:59 06:59 Intake Total 55 ml Output Total 100 ml 800 ml Balance -100 ml -745 ml Tube Feeding 55 ml Output Urine Total 100 ml 800 ml # Bowel Movements 1 Laboratory Tests 12/22/18 05:50: White Blood Count 2.8L, Red Blood Count 2.80L, Hemoglobin 8.7L, Hematocrit 27.3L , Mean Corpuscular Volume 98, Mean Corpuscular Hemoglobin 31.0, Mean Corpuscular Hemoglobin Concent 31.7L, Red Cell Distribution Width 15.8H, Platelet Count 71L, Mean Platelet Volume 8.2, Neutrophils (%) (Auto) , Lymphocytes (%) (Auto) , Monocytes (%) (Auto) , Eosinophils (%) (Auto) , Basophils (%) (Auto) , Differential Total Cells Counted 100, Neutrophils % ( Manual) 84H, Lymphocytes % (Manual) 13L, Monocytes % (Manual) 2, Eosinophils % ( Manual) 1, Basophils % (Manual) 0, Band Neutrophils 0, Platelet Estimate DecreasedL, Platelet Morphology Normal, Sodium Level 139, Potassium Level 3.5, Chloride Level 104, Carbon Dioxide Level 33H, Anion Gap 2L, Blood Urea Nitrogen 20H, Creatinine 0.8, Estimat Glomerular Filtration Rate , Glucose Level 172H, Calcium Level 9.2, Phosphorus Level 3.4, Magnesium Level 2.1 Height (Feet): 5 Height (Inches): 2.00 Weight (Pounds): 115 General Appearance: confused Cardiovascular: normal rate Respiratory/Chest: lungs clear Abdomen: soft Yi Asencio MD Dec 22, 2018 20:31
--- NOTE | 2018-12-22 20:49 | General Progress Note ---
Assessment/Plan Assessment/Plan Assessment/Plan: # Decreased white blood cell count, Leukopenia --> if the total ANC is less than 2000, consider neupogen --> continue antibiotics with ID service, appreciate recs --> medications have been reviewed --> hepatitis and hiv negative Wbc trend: 4-->2.7-->2.2->2.8-->2.6 # Thrombocytopenia - potential causes multifactorial, evaluate liver and viral etiologies to begin, also could be related to underlying medications patient has received. --> Hep panel and HIV negative --> US abd to evaluate for cirrhosis and hsm reviewed --> Peripheral smear ordered to evaluate for blasts /schistocytes --> abx and other meds have been reviewed --> ok for ppx if plt >50k w/ either heparin or lovenox --> Transfuse if Plt < 20k and fever, or if Plt < 10k without fever --> PLT trend: 51-->58-->71-->65-->71 # Pancytopenia, likely related to septicemia, appears new baseline 50-70k, several causes possible including viral, medication or intrabone marrow related. --> Cont to monitor plt count for improvement --> US abd: Mild left hydronephrosis. Possible left renal calyceal calculi. Negative for gallstones or dilated ducts Debris noted within the bladder --> Hep panel and HIV are both negative --> given extremely poor condition do not recommend a bone marrow biopsy, have discussed with family 08/01 with --> will rediscuss once sepsis resolves --> transfuse if plt <20k # Anemia of chronic disease. Multifactorial. Since admission Hgb has consistently remained between 8-9. --> Cont to monitor for stability --> Hgb goal above 7. Transfuse prn. --> IV iron completed prior admission and feritin is elevated # DVT of the left leg s/p IVC filter in 07/2018-- superficial femoral vein which is a deep vein, new onset, has not had these symptoms before. Lower hgb and plts --> given decreased h/h, low thrombocytopenia, do not recommend anticoag --> appreciate Dr. Parekh and Mariam arias from prior admission --> smear reviewed # Dehydration. IVF has been administered --> improved # DM OOC --> A1C goal <7 --> Cont on insulin # Bacteremia/prior UTI. --> ID is following. Appreciate recs. --> Pt on IV abx. --> Cultures surveillance as per id # PEG placement 08/04. Greatly appreciate consultation! Subjective Constitutional: Denies: no symptoms, chills, diaphoresis, fever, malaise, weakness, other HEENT: Denies: no symptoms, eye pain, blurred vision, tearing, double vision, ear pain, ear discharge, nose pain, nose congestion, throat pain, throat swelling, mouth pain, mouth swelling, other Cardiovascular: Denies: no symptoms, chest pain, edema, irregular heart rate, lightheadedness, palpitations, syncope, other Respiratory: Denies: no symptoms, cough, orthopnea, shortness of breath, SOB with excertion, SOB at rest, sputum, stridor, wheezing, other Gastrointestinal/Abdominal: Denies: no symptoms, abdomen distended, abdominal pain, black stools, tarry stools, blood in stool, constipated, diarrhea, difficulty swallowing, nausea, poor appetite, poor fluid intake, rectal bleeding , vomiting, other Hematologic/Lymphatic: Denies: no symptoms, anemia, easy bleeding, easy bruising, other Allergies: Coded Allergies: No Known Allergies (Unverified , 12/14/18) Subjective 12/16: seen by bedside, awake, comfortable, hgb 8, plt 51 12/18: awake, non verbal on NC, no events, pending labs today 12/19: Pt is resting in bed, no events reported, plt 71 12/20: seen by bedside, awake, comfortable, no events 12/21: Awake, comfortable, no acute distress reported. 12/22: resting in bed, no events reported. Objective Last 24 Hour Vital Signs Date Time Temp Pulse Resp B/P (MAP) Pulse Ox O2 Delivery O2 Flow Rate FiO2 12/22/18 20:00 97 Nasal Cannula 2.0 28 12/22/18 20:00 Nasal Cannula 2.0 28 12/22/18 20:00 80 18 Nasal Cannula 2.0 28 12/22/18 17:53 124/68 12/22/18 17:52 124/68 12/22/18 16:00 89 12/22/18 16:00 98.0 92 20 124/68 (86) 98 12/22/18 12:40 143/56 12/22/18 12:00 80 12/22/18 12:00 98.2 80 20 143/56 (85) 95 12/22/18 09:00 Nasal Cannula 2.0 12/22/18 08:00 98.1 77 20 137/64 (88) 100 12/22/18 08:00 81 12/22/18 05:40 120/60 12/22/18 04:00 86 12/22/18 04:00 98.2 86 20 133/72 (92) 97 12/22/18 00:00 98.2 88 20 137/76 (96) 97 12/22/18 00:00 88 12/21/18 23:38 137/76 12/21/18 21:00 Nasal Cannula 2.0 Intake and Output 12/21/18 12/22/18 18:59 06:59 Intake Total 55 ml Output Total 100 ml 800 ml Balance -100 ml -745 ml Tube Feeding 55 ml Output Urine Total 100 ml 800 ml # Bowel Movements 1 Laboratory Tests 12/22/18 05:50: White Blood Count 2.8L, Red Blood Count 2.80L, Hemoglobin 8.7L, Hematocrit 27.3L , Mean Corpuscular Volume 98, Mean Corpuscular Hemoglobin 31.0, Mean Corpuscular Hemoglobin Concent 31.7L, Red Cell Distribution Width 15.8H, Platelet Count 71L, Mean Platelet Volume 8.2, Neutrophils (%) (Auto) , Lymphocytes (%) (Auto) , Monocytes (%) (Auto) , Eosinophils (%) (Auto) , Basophils (%) (Auto) , Differential Total Cells Counted 100, Neutrophils % ( Manual) 84H, Lymphocytes % (Manual) 13L, Monocytes % (Manual) 2, Eosinophils % ( Manual) 1, Basophils % (Manual) 0, Band Neutrophils 0, Platelet Estimate DecreasedL, Platelet Morphology Normal, Sodium Level 139, Potassium Level 3.5, Chloride Level 104, Carbon Dioxide Level 33H, Anion Gap 2L, Blood Urea Nitrogen 20H, Creatinine 0.8, Estimat Glomerular Filtration Rate , Glucose Level 172H, Calcium Level 9.2, Phosphorus Level 3.4, Magnesium Level 2.1 Height (Feet): 5 Height (Inches): 2.00 Weight (Pounds): 115 Objective PHYSICAL EXAMINATION: VITAL SIGNS: Reviewed. Saturating 100% on 2 L. NC++ GENERAL: She is an elderly demented female, in no acute distress. Nonverbal. HEENT: Normocephalic and atraumatic. Oropharynx is clear. Moist mucous membranes. NECK: Supple without lymphadenopathy. CHEST: Clear, but rales at the bases. HEART: Regular rate and rhythm. ABDOMEN: Soft, nontender, and nondistended. ++ peg EXTREMITIES: No cyanosis, clubbing or edema. Dewayne Gayle MD Dec 22, 2018 20:49
--- NOTE | 2018-12-22 21:05 | Cardiology Report ---
APPROVED REPORT EKG Measurement Heart [id number] CT 120P55 [id number] Sin[address] N[address] and T wave abnormality Abnormal ECG
[2018-12-22] MEDS: Atorvastatin 20mg tab GT SCH (21:45)
--- NOTE | 2018-12-22 23:57 | Cardiology Progress Note ---
Assessment/Plan Assessment/Plan 1. Slight elevation of troponin I level likely demand ischemia, continue DAPT and atorvastatin. 2. History of cerebrovascular accident, continue DAPT and atorvastatin. 3. History of dementia. 4. Dysphagia, status post G-tube. 5. Thrombocytopenia. 6. Diabetes mellitus. 7. CVA with hemiplegia. Subjective Subjective Sinus rhythm at rate of 92. On NC oxygen. Objective Last 24 Hour Vital Signs Date Time Temp Pulse Resp B/P (MAP) Pulse Ox O2 Delivery O2 Flow Rate FiO2 12/22/18 21:00 Nasal Cannula 2.0 12/22/18 20:00 80 12/22/18 20:00 97 Nasal Cannula 2.0 28 12/22/18 20:00 97.7 74 20 137/67 (90) 100 12/22/18 20:00 Nasal Cannula 2.0 28 12/22/18 20:00 80 18 Nasal Cannula 2.0 28 12/22/18 17:53 124/68 12/22/18 17:52 124/68 12/22/18 16:00 89 12/22/18 16:00 98.0 92 20 124/68 (86) 98 12/22/18 12:40 143/56 12/22/18 12:00 80 12/22/18 12:00 98.2 80 20 143/56 (85) 95 12/22/18 09:00 Nasal Cannula 2.0 12/22/18 08:00 98.1 77 20 137/64 (88) 100 12/22/18 08:00 81 12/22/18 05:40 120/60 12/22/18 04:00 86 12/22/18 04:00 98.2 86 20 133/72 (92) 97 12/22/18 00:00 98.2 88 20 137/76 (96) 97 12/22/18 00:00 88 Intake and Output 12/21/18 12/22/18 19:00 07:00 Intake Total 55 ml Output Total 100 ml 800 ml Balance -100 ml -745 ml Tube Feeding 55 ml Output Urine Total 100 ml 800 ml # Bowel Movements 1 Laboratory Tests Test 12/22/18 05:50 White Blood Count 2.8 K/UL (4.8-10.8) L Red Blood Count 2.80 M/UL (4.20-5.40) L Hemoglobin 8.7 G/DL (12.0-16.0) L Hematocrit 27.3 % (37.0-47.0) L Mean Corpuscular Volume 98 FL (80-99) Mean Corpuscular Hemoglobin 31.0 PG (27.0-31.0) Mean Corpuscular Hemoglobin Concent 31.7 G/DL (32.0-36.0) L Red Cell Distribution Width 15.8 % (11.6-14.8) H Platelet Count 71 K/UL (150-450) L Mean Platelet Volume 8.2 FL (6.5-10.1) Neutrophils (%) (Auto) % (45.0-75.0) Lymphocytes (%) (Auto) % (20.0-45.0) Monocytes (%) (Auto) % (1.0-10.0) Eosinophils (%) (Auto) % (0.0-3.0) Basophils (%) (Auto) % (0.0-2.0) Differential Total Cells Counted 100 Neutrophils % (Manual) 84 % (45-75) H Lymphocytes % (Manual) 13 % (20-45) L Monocytes % (Manual) 2 % (1-10) Eosinophils % (Manual) 1 % (0-3) Basophils % (Manual) 0 % (0-2) Band Neutrophils 0 % (0-8) Platelet Estimate Decreased L Platelet Morphology Normal Sodium Level 139 MMOL/L (136-145) Potassium Level 3.5 MMOL/L (3.5-5.1) Chloride Level 104 MMOL/L (98-107) Carbon Dioxide Level 33 MMOL/L (21-32) H Anion Gap 2 mmol/L (5-15) L Blood Urea Nitrogen 20 mg/dL (7-18) H Creatinine 0.8 MG/DL (0.55-1.30) Estimat Glomerular Filtration Rate mL/min (>60) Glucose Level 172 MG/DL (74-106) H Calcium Level 9.2 MG/DL (8.5-10.1) Phosphorus Level 3.4 MG/DL (2.5-4.9) Magnesium Level 2.1 MG/DL (1.8-2.4) Objective HEENT: Atraumatic and normocephalic. Anicteric. Pupils are equal, round, and reactive to light and accommodation. Extraocular muscles intact. NECK: JVP less than 5 cm. No carotid bruit. Carotid upstrokes is 2+ bilaterally. CARDIOVASCULAR: Normal S1, S2. Regular rate and rhythm. No murmurs, gallops, or rubs. LUNGS: Clear to auscultation bilaterally. ABDOMEN: Soft, nontender, and nondistended. No hepatosplenomegaly. Positive bowel sounds. There is presence of a G-tube. EXTREMITIES: No evidence of edema, clubbing, or cyanosis. Deepak Aldana MD Dec 22, 2018 23:57
[2018-12-23] VITALS: BP 136/67
[2018-12-23] MEDS: HydrALAZINE 10mg Tab GT SCH ×4 (00:45→17:15)
[2018-12-23] MEDS: NovoLOG Insulin Flexpen SUBQ SCH ×4 (00:46→17:34)
--- NOTE | 2018-12-23 03:40 | NUR ---
NURSE NOTES: Patient in bed asleep with no S/S of distress at this time. Will continue to monitor
[2018-12-23 04:00] VITALS: BP 135/58
--- NOTE | 2018-12-23 06:37 | General Progress Note ---
Assessment/Plan Problem List: (1) Feeding by G-tube ICD Codes: Z93.1 - Gastrostomy status SNOMED: 662126265, 373619543, 116889653 (2) Altered mental status ICD Codes: R41.82 - Altered mental status, unspecified SNOMED: 313993417 (3) Thrombocytopenia ICD Codes: D69.6 - Thrombocytopenia, unspecified SNOMED: 558416067 (4) Sepsis ICD Codes: A41.9 - Sepsis, unspecified organism SNOMED: 42135495 Assessment/Plan continue Novolog sliding scale every 6 hours no need for basal insulin for now Subjective Allergies: Coded Allergies: No Known Allergies (Unverified , 12/14/18) All Systems: reviewed and negative except above Subjective events noted Item Value Date Time Bedside Blood Glucose 160 mg/dl H 12/23/18 0619 Bedside Blood Glucose 152 mg/dl H 12/23/18 0046 Bedside Blood Glucose 145 mg/dl H 12/22/18 1800 Bedside Blood Glucose 143 mg/dl H 12/22/18 1239 Bedside Blood Glucose 174 mg/dl H 12/22/18 0600 Bedside Blood Glucose 135 mg/dl H 12/22/18 0000 Objective Last 24 Hour Vital Signs Date Time Temp Pulse Resp B/P (MAP) Pulse Ox O2 Delivery O2 Flow Rate FiO2 12/23/18 06:17 135/58 12/23/18 04:00 98.6 77 20 135/58 (83) 98 12/23/18 04:00 76 12/23/18 00:45 136/67 12/23/18 00:00 69 12/23/18 00:00 98.6 75 20 136/67 (90) 100 12/22/18 21:00 Nasal Cannula 2.0 12/22/18 20:00 80 12/22/18 20:00 97 Nasal Cannula 2.0 28 12/22/18 20:00 97.7 74 20 137/67 (90) 100 12/22/18 20:00 Nasal Cannula 2.0 28 12/22/18 20:00 80 18 Nasal Cannula 2.0 28 12/22/18 17:53 124/68 12/22/18 17:52 124/68 12/22/18 16:00 89 12/22/18 16:00 98.0 92 20 124/68 (86) 98 12/22/18 12:40 143/56 3/14/19 12:00 80 12/22/18 12:00 98.2 80 20 143/56 (85) 95 12/22/18 09:00 Nasal Cannula 2.0 12/22/18 08:00 98.1 77 20 137/64 (88) 100 12/22/18 08:00 81 Intake and Output 12/22/18 12/23/18 19:00 07:00 Intake Total 55 ml 605 ml Output Total 750 ml Balance -695 ml 605 ml Tube Feeding 55 ml 605 ml Output Urine Total 750 ml Height (Feet): 5 Height (Inches): 2.00 Weight (Pounds): 115 General Appearance: no apparent distress Neck: normal alignment Cardiovascular: normal rate Respiratory/Chest: lungs clear Abdomen: normal bowel sounds Objective Current Medications Medications (Trade) Dose Ordered Sig/Laure Route PRN Reason Start Time Stop Time Status Last Admin Dose Admin Acetaminophen (Tylenol) 650 mg Q4H PRN GT Mild Pain/Temp > 100.5 12/19/18 11:00 01/13/19 10:59 Albuterol/ Ipratropium (Albuterol/ Ipratropium) 3 ml Q4H PRN HHN Shortness of Breath 12/20/18 10:45 12/25/18 10:44 Aspirin (ASA) 81 mg DAILY NG 12/19/18 15:30 01/18/19 15:29 12/22/18 08:02 Atorvastatin Calcium (Lipitor) 20 mg BEDTIME GT 12/19/18 21:00 01/17/19 20:59 12/22/18 21:45 Ciprofloxacin (Cipro 500mg tab) 500 mg EVERY 12 HOURS GT 12/19/18 21:00 12/23/18 10:59 12/22/18 21:45 Clopidogrel Bisulfate (Plavix) 75 mg DAILY GT 12/20/18 09:00 01/14/19 08:59 12/22/18 08:02 Dextrose (Dextrose 50%) 25 ml Q30M PRN IV Hypoglycemia 12/19/18 11:15 01/13/19 17:14 Dextrose (Dextrose 50%) 50 ml Q30M PRN IV Hypoglycemia 12/19/18 11:15 01/13/19 17:14 Hydralazine HCl (Apresoline) 10 mg Q6HR GT 12/19/18 12:00 01/17/19 17:59 12/23/18 06:17 Hydralazine HCl (Apresoline) 25 mg Q4H PRN GT bp over 160 syst 12/19/18 11:00 01/17/19 10:59 Insulin Aspart (NovoLOG) EVERY 6 HOURS SUBQ 12/19/18 12:00 01/13/19 20:59 12/23/18 06:19 Lansoprazole (Prevacid) 30 mg BID GT 12/19/18 18:00 01/15/19 17:59 12/22/18 17:53 Nitroglycerin (Ntg) 1 patch Q24H TDERMAL 12/19/18 17:00 01/13/19 16:59 12/22/18 17:52 Ondansetron HCl (Zofran ODT) 4 mg Q4HR ORAL 12/19/18 13:00 01/13/19 20:59 12/23/18 06:17 Potassium Chloride (K-Dur) 20 meq TWICE A DAY GT 12/22/18 18:00 01/21/19 17:59 12/22/18 17:53 Enrique Tafoya MD Dec 23, 2018 06:36
--- NOTE | 2018-12-23 07:24 | NUR ---
HAND-OFF: Report given to eLvar Lainez RN. Patient in bed in stable condition. Endorsed plan of care
--- NOTE | 2018-12-23 07:42 | NUR ---
NURSE NOTES: Received report from DONIS Edmond. Patient in bed resting, SR with HR 76, no active s/s cardiac, respiratory distress noticed at this time, denies pain at this time, open eyes spontaneously and verbal stimulus. Patient on 2L oxygen via NC. IV on right wrist 22G asymptomatic, patent, intact. Endorsed Son, Shady, would like to be informed when patient is getting discharge [phone]. Leiva catheter draining well to gravity. GT patent, intact, Glucerna 1.2 running at 55ml/h. Bed in lowest position, side rails upx3, call light within reach. Will continue to monitor.
[2018-12-23 07:49] LABS: HEMATOCRIT 26.8 % (37.0-47.0); HEMOGLOBIN 8.5 G/DL (12.0-16.0); MEAN CORPUSCULAR VOLUME 97 FL (80-99); PLATELET COUNT 74 K/UL (150-450); RED BLOOD COUNT 2.76 M/UL (4.20-5.40); RED CELL DISTRIBUTION WIDTH 16.2 % (11.6-14.8); WHITE BLOOD COUNT 2.5 K/UL (4.8-10.8)
[2018-12-23 08:00] VITALS: BP 144/72
[2018-12-23 08:08] LABS: ANION GAP 2 mmol/L (5-15); BLOOD UREA NITROGEN 19 mg/dL (7-18); CALCIUM 9.3 MG/DL (8.5-10.1); CARBON DIOXIDE 33 MMOL/L (21-32); CHLORIDE 105 MMOL/L (98-107); CREATININE 0.8 MG/DL (0.55-1.30); POTASSIUM 3.8 MMOL/L (3.5-5.1); SODIUM 140 MMOL/L (136-145)
--- NOTE | 2018-12-23 08:22 | NUR ---
CASE MANAGEMENT:REVIEW 12/23/18 SI: SEPSIS. UTI 98.6 77 20 135/58 98% ON 2L/NC WBC-2.5 H/H-8.5/26.8 PLT-74 BUN+19 IS: K-DUR GT BID PLAVIX GT QD LIPITOR GT QHS CIPRO GT Q12 PREVACID GT BID NTG PATCH Q24 ASA GT QD ZOFRAN GT Q4HRS HYDRALAZINE GT Q6HRS : TELEMETRY STATUS DCP: PATIENT IS FROM [facility]
[2018-12-23] MEDS: Aspirin Baby 81mg NG SCH (09:10)
[2018-12-23] MEDS: Ciprofloxacin 500mg tab GT SCH (09:10)
--- NOTE | 2018-12-23 10:14 | Infectious Diseases Prog Note ---
Assessment/Plan Assessment/Plan antibiotics : ciprofloxacin A 1. e.coli UTI s/p rx 2. pneumonia s/p rx 3. bilateral renal calculus 4. left ureteral calculus 5. diabetes mellitus 6. CVA P 1. d/c ciprofloxacin 2. observe off antibiotics Subjective ROS Limited/Unobtainable: Yes Allergies: Coded Allergies: No Known Allergies (Unverified , 12/14/18) Objective Vital Signs Last 24 Hour Vital Signs Date Time Temp Pulse Resp B/P (MAP) Pulse Ox O2 Delivery O2 Flow Rate FiO2 12/23/18 06:17 135/58 12/23/18 04:00 98.6 77 20 135/58 (83) 98 12/23/18 04:00 76 12/23/18 00:45 136/67 12/23/18 00:00 69 12/23/18 00:00 98.6 75 20 136/67 (90) 100 12/22/18 21:00 Nasal Cannula 2.0 12/22/18 20:00 80 12/22/18 20:00 97 Nasal Cannula 2.0 28 12/22/18 20:00 97.7 74 20 137/67 (90) 100 12/22/18 20:00 Nasal Cannula 2.0 28 12/22/18 20:00 80 18 Nasal Cannula 2.0 28 12/22/18 17:53 124/68 12/22/18 17:52 124/68 12/22/18 16:00 89 12/22/18 16:00 98.0 92 20 124/68 (86) 98 12/22/18 12:40 143/56 12/22/18 12:00 80 12/22/18 12:00 98.2 80 20 143/56 (85) 95 Height (Feet): 5 Height (Inches): 2.00 Weight (Pounds): 115 Respiratory/Chest: lungs clear Cardiovascular: normal rate, regular rhythm, no gallop/murmur Abdomen: soft, non tender Extremities: no edema Laboratory Tests Test 12/23/18 07:15 White Blood Count 2.5 K/UL (4.8-10.8) L Red Blood Count 2.76 M/UL (4.20-5.40) L Hemoglobin 8.5 G/DL (12.0-16.0) L Hematocrit 26.8 % (37.0-47.0) L Mean Corpuscular Volume 97 FL (80-99) Mean Corpuscular Hemoglobin 30.7 PG (27.0-31.0) Mean Corpuscular Hemoglobin Concent 31.6 G/DL (32.0-36.0) L Red Cell Distribution Width 16.2 % (11.6-14.8) H Platelet Count 74 K/UL (150-450) L Mean Platelet Volume 8.5 FL (6.5-10.1) Neutrophils (%) (Auto) % (45.0-75.0) Lymphocytes (%) (Auto) % (20.0-45.0) Monocytes (%) (Auto) % (1.0-10.0) Eosinophils (%) (Auto) % (0.0-3.0) Basophils (%) (Auto) % (0.0-2.0) Neutrophils % (Manual) Pending Lymphocytes % (Manual) Pending Platelet Estimate Pending Platelet Morphology Pending Sodium Level 140 MMOL/L (136-145) Potassium Level 3.8 MMOL/L (3.5-5.1) Chloride Level 105 MMOL/L (98-107) Carbon Dioxide Level 33 MMOL/L (21-32) H Anion Gap 2 mmol/L (5-15) L Blood Urea Nitrogen 19 mg/dL (7-18) H Creatinine 0.8 MG/DL (0.55-1.30) Estimat Glomerular Filtration Rate mL/min (>60) Glucose Level 150 MG/DL (74-106) H Calcium Level 9.3 MG/DL (8.5-10.1) Current Medications Medications (Trade) Dose Ordered Sig/Laure Route PRN Reason Start Time Stop Time Status Last Admin Dose Admin Acetaminophen (Tylenol) 650 mg Q4H PRN GT Mild Pain/Temp > 100.5 12/19/18 11:00 01/13/19 10:59 Albuterol/ Ipratropium (Albuterol/ Ipratropium) 3 ml Q4H PRN HHN Shortness of Breath 12/20/18 10:45 12/25/18 10:44 Aspirin (ASA) 81 mg DAILY NG 12/19/18 15:30 01/18/19 15:29 12/23/18 09:10 Atorvastatin Calcium (Lipitor) 20 mg BEDTIME GT 12/19/18 21:00 01/17/19 20:59 12/22/18 21:45 Ciprofloxacin (Cipro 500mg tab) 500 mg EVERY 12 HOURS GT 12/19/18 21:00 12/23/18 10:59 12/23/18 09:10 Clopidogrel Bisulfate (Plavix) 75 mg DAILY GT 12/20/18 09:00 01/14/19 08:59 12/23/18 09:10 Dextrose (Dextrose 50%) 25 ml Q30M PRN IV Hypoglycemia 12/19/18 11:15 01/13/19 17:14 Dextrose (Dextrose 50%) 50 ml Q30M PRN IV Hypoglycemia 12/19/18 11:15 01/13/19 17:14 Hydralazine HCl (Apresoline) 10 mg Q6HR GT 12/19/18 12:00 01/17/19 17:59 12/23/18 06:17 Hydralazine HCl (Apresoline) 25 mg Q4H PRN GT bp over 160 syst 12/19/18 11:00 01/17/19 10:59 Insulin Aspart (NovoLOG) EVERY 6 HOURS SUBQ 12/19/18 12:00 01/13/19 20:59 12/23/18 06:19 Lansoprazole (Prevacid) 30 mg BID GT 12/19/18 18:00 01/15/19 17:59 12/23/18 09:10 Nitroglycerin (Ntg) 1 patch Q24H TDERMAL 12/19/18 17:00 01/13/19 16:59 12/22/18 17:52 Ondansetron HCl (Zofran ODT) 4 mg Q4HR ORAL 12/19/18 13:00 01/13/19 20:59 12/23/18 09:12 Potassium Chloride (K-Dur) 20 meq TWICE A DAY GT 12/22/18 18:00 01/21/19 17:59 12/23/18 09:10 Jasmine Lechuga MD Dec 23, 2018 10:14
--- NOTE | 2018-12-23 11:38 | NUR ---
RD ASSESSMENT & RECOMMENDATIONS SEE CARE ACTIVITY FOR COMPLETE ASSESSMENT DAILY ESTIMATED NEEDS: Needs based on Wound, Pulmonary / 50kg 30-35 kcals/kg 1043-0335 total kcals 1.25-1.5 g protein/kg 63-75 g total protein 25-30 mL/kg 4240-4028 total fluid mLs NUTRITION DIAGNOSIS: 1) Increased kcal and protein needs R/T wound healing as evidenced by pt w/ wounds including resolving pressure injury to sacrum, non-blanching erythema with multiple small openings within base and non-blanchable erythema @ lateral R heel. 2) Swallowing difficulty R/T dysphagia as evidenced by pt is PEG dep. 3) Altered nutrition related lab values R/T diabetes as evidenced by elev BGs (150-165), A1C 6.5, Uglu 3+, and POC glu (121-163) CURRENT TF:Glucerna 1.2 @55ml/hr x24 hrs ENTERAL NUTRITION RECOMMENDATIONS: Glucerna 1.2 @55ml/hr x24 hrs to provide 1320ml, 1584 kcal, 79g prot, 1063ml free fluid * Maintain current TF * Flush per MD/ HOB over 30 degrees ADDITIONAL RECOMMENDATIONS: * Per SNF: ht=62", wt=98lbs on 11/16/18 --->> Recalibrate bedscale wt, rec weekly wt monitoring * Wound healing: Add Timbo 1pkt BID * Check lytes daily, replete as needed . . .
[2018-12-23 12:00] VITALS: BP 119/63
--- NOTE | 2018-12-23 13:48 | Nephrology Progress Note ---
Assessment/Plan Problem List: (1) Diabetic nephropathy (2) Hypokalemia (3) Anemia (4) UTI (urinary tract infection) Assessment Electrolyte imbalance UTI Anemia Low K Diabetic Nephropathy, HypoAlbuminemia CAD Plan DC Lopressor dose- On hydralazine K Phos , KCl , MgSo4 IV as needed antibiotics avoid nephrotoxics anemia mac per orders Subjective ROS Limited/Unobtainable: No Objective Objective Last 24 Hour Vital Signs Date Time Temp Pulse Resp B/P (MAP) Pulse Ox O2 Delivery O2 Flow Rate FiO2 12/23/18 12:46 119/63 12/23/18 09:00 Nasal Cannula 2.0 12/23/18 08:00 98.4 75 18 144/72 (96) 98 12/23/18 08:00 70 12/23/18 06:17 135/58 12/23/18 04:00 98.6 77 20 135/58 (83) 98 12/23/18 04:00 76 12/23/18 00:45 136/67 12/23/18 00:00 69 12/23/18 00:00 98.6 75 20 136/67 (90) 100 12/22/18 21:00 Nasal Cannula 2.0 12/22/18 20:00 80 12/22/18 20:00 97 Nasal Cannula 2.0 28 12/22/18 20:00 97.7 74 20 137/67 (90) 100 12/22/18 20:00 Nasal Cannula 2.0 28 12/22/18 20:00 80 18 Nasal Cannula 2.0 28 12/22/18 17:53 124/68 12/22/18 17:52 124/68 12/22/18 16:00 89 12/22/18 16:00 98.0 92 20 124/68 (86) 98 Intake and Output 12/22/18 12/23/18 19:00 07:00 Intake Total 55 ml 605 ml Output Total 750 ml Balance -695 ml 605 ml Tube Feeding 55 ml 605 ml Output Urine Total 750 ml Laboratory Tests 12/23/18 07:15: White Blood Count 2.5L, Red Blood Count 2.76L, Hemoglobin 8.5L, Hematocrit 26.8L , Mean Corpuscular Volume 97, Mean Corpuscular Hemoglobin 30.7, Mean Corpuscular Hemoglobin Concent 31.6L, Red Cell Distribution Width 16.2H, Platelet Count 74L, Mean Platelet Volume 8.5, Neutrophils (%) (Auto) , Lymphocytes (%) (Auto) , Monocytes (%) (Auto) , Eosinophils (%) (Auto) , Basophils (%) (Auto) , Differential Total Cells Counted 100, Neutrophils % ( Manual) 75, Lymphocytes % (Manual) 12L, Monocytes % (Manual) 6, Eosinophils % ( Manual) 2, Basophils % (Manual) 0, Band Neutrophils 5, Platelet Estimate DecreasedL, Platelet Morphology Normal, Anisocytosis 1+, Sodium Level 140, Potassium Level 3.8, Chloride Level 105, Carbon Dioxide Level 33H, Anion Gap 2L , Blood Urea Nitrogen 19H, Creatinine 0.8, Estimat Glomerular Filtration Rate , Glucose Level 150H, Calcium Level 9.3 Height (Feet): 5 Height (Inches): 2.00 Weight (Pounds): 115 General Appearance: no apparent distress Objective no change Parvez Bergman MD Dec 23, 2018 13:48
--- NOTE | 2018-12-23 14:55 | NUR ---
*-* INSURANCE *-* UPDATED CLINICALS HAVE BEEN FAXED TO: DIANE F: [phone]
[2018-12-23 16:00] VITALS: BP 141/65
[2018-12-23] MEDS: Nitroglycerin Patch 0.4mg TDERMAL SCH (17:15)
--- NOTE | 2018-12-23 17:27 | Pulmonology Progress Note ---
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 (4) DVT (deep venous thrombosis) (5) Anemia (6) Thrombocytopenia (7) S/P IVC filter (8) Dementia with behavioral disturbance (9) Feeding by G-tube Assessment/Plan Optimize pulmonary hygiene/mobilize as tolerated PRN O2 PRN HHN's Observe off Abx per ID Monitor HH, transfuse as needed F/U GI recs F/U recs --> conservative management of hydronephrosis TF's as tolerated DVT Px: IVCF FC Continue to discuss GOC Subjective Allergies: Coded Allergies: No Known Allergies (Unverified , 12/14/18) Subjective AFVSS stable O2 needs No distress, no cough, no SOB, no F/C, leta TF's Objective Last 24 Hour Vital Signs Date Time Temp Pulse Resp B/P (MAP) Pulse Ox O2 Delivery O2 Flow Rate FiO2 12/23/18 17:15 141/65 12/23/18 17:15 141/65 12/23/18 16:00 97.9 80 20 141/65 (90) 100 12/23/18 12:46 119/63 12/23/18 12:00 98.0 70 18 119/63 (81) 100 12/23/18 12:00 64 12/23/18 09:00 Nasal Cannula 2.0 12/23/18 08:00 98.4 75 18 144/72 (96) 98 12/23/18 08:00 70 12/23/18 06:17 135/58 12/23/18 04:00 98.6 77 20 135/58 (83) 98 12/23/18 04:00 76 12/23/18 00:45 136/67 12/23/18 00:00 69 12/23/18 00:00 98.6 75 20 136/67 (90) 100 12/22/18 21:00 Nasal Cannula 2.0 12/22/18 20:00 80 12/22/18 20:00 97 Nasal Cannula 2.0 28 12/22/18 20:00 97.7 74 20 137/67 (90) 100 12/22/18 20:00 Nasal Cannula 2.0 28 12/22/18 20:00 80 18 Nasal Cannula 2.0 28 12/22/18 17:53 124/68 12/22/18 17:52 124/68 Intake and Output 12/22/18 12/23/18 19:00 07:00 Intake Total 55 ml 605 ml Output Total 750 ml Balance -695 ml 605 ml Tube Feeding 55 ml 605 ml Output Urine Total 750 ml General Appearance: no acute distress, cachetic HEENT: normocephalic, atraumatic, anicteric, mucous membranes moist Respiratory/Chest: chest wall non-tender, lungs clear, normal breath sounds, no respiratory distress, no accessory muscle use Cardiovascular: normal peripheral pulses, normal rate, regular rhythm Abdomen: normal bowel sounds, soft, non tender, no organomegaly, non distended , no mass, other - GT Extremities: no cyanosis, no clubbing, no edema Laboratory Tests 12/23/18 07:15: White Blood Count 2.5L, Red Blood Count 2.76L, Hemoglobin 8.5L, Hematocrit 26.8L , Mean Corpuscular Volume 97, Mean Corpuscular Hemoglobin 30.7, Mean Corpuscular Hemoglobin Concent 31.6L, Red Cell Distribution Width 16.2H, Platelet Count 74L, Mean Platelet Volume 8.5, Neutrophils (%) (Auto) , Lymphocytes (%) (Auto) , Monocytes (%) (Auto) , Eosinophils (%) (Auto) , Basophils (%) (Auto) , Differential Total Cells Counted 100, Neutrophils % ( Manual) 75, Lymphocytes % (Manual) 12L, Monocytes % (Manual) 6, Eosinophils % ( Manual) 2, Basophils % (Manual) 0, Band Neutrophils 5, Platelet Estimate DecreasedL, Platelet Morphology Normal, Anisocytosis 1+, Sodium Level 140, Potassium Level 3.8, Chloride Level 105, Carbon Dioxide Level 33H, Anion Gap 2L , Blood Urea Nitrogen 19H, Creatinine 0.8, Estimat Glomerular Filtration Rate , Glucose Level 150H, Calcium Level 9.3 Current Medications Medications (Trade) Dose Ordered Sig/Laure Route PRN Reason Start Time Stop Time Status Last Admin Dose Admin Acetaminophen (Tylenol) 650 mg Q4H PRN GT Mild Pain/Temp > 100.5 12/19/18 11:00 01/13/19 10:59 Albuterol/ Ipratropium (Albuterol/ Ipratropium) 3 ml Q4H PRN N Shortness of Breath 12/20/18 10:45 12/25/18 10:44 Aspirin (ASA) 81 mg DAILY NG 12/19/18 15:30 01/18/19 15:29 12/23/18 09:10 Atorvastatin Calcium (Lipitor) 20 mg BEDTIME GT 12/19/18 21:00 01/17/19 20:59 12/22/18 21:45 Clopidogrel Bisulfate (Plavix) 75 mg DAILY GT 12/20/18 09:00 01/14/19 08:59 12/23/18 09:10 Dextrose (Dextrose 50%) 25 ml Q30M PRN IV Hypoglycemia 12/19/18 11:15 01/13/19 17:14 Dextrose (Dextrose 50%) 50 ml Q30M PRN IV Hypoglycemia 12/19/18 11:15 01/13/19 17:14 Hydralazine HCl (Apresoline) 10 mg Q6HR GT 12/19/18 12:00 01/17/19 17:59 12/23/18 17:15 Hydralazine HCl (Apresoline) 25 mg Q4H PRN GT bp over 160 syst 12/19/18 11:00 01/17/19 10:59 Insulin Aspart (NovoLOG) EVERY 6 HOURS SUBQ 12/19/18 12:00 01/13/19 20:59 12/23/18 12:47 Lansoprazole (Prevacid) 30 mg BID GT 12/19/18 18:00 01/15/19 17:59 12/23/18 17:15 Nitroglycerin (Ntg) 1 patch Q24H TDERMAL 12/19/18 17:00 01/13/19 16:59 12/23/18 17:15 Ondansetron HCl (Zofran ODT) 4 mg Q4HR ORAL 12/19/18 13:00 01/13/19 20:59 12/23/18 17:15 Potassium Chloride (K-Dur) 20 meq TWICE A DAY GT 12/22/18 18:00 01/21/19 17:59 12/23/18 17:15 Foreign Parekh MD Dec 23, 2018 17:27
--- NOTE | 2018-12-23 18:00 | NUR ---
NURSE NOTES: Dr. Parekh at bedside, stated if patient tolerating without oxygen, okay to take off oxygen.
[2018-12-23 20:00] VITALS: BP 137/83
--- NOTE | 2018-12-23 20:07 | NUR ---
HAND-OFF: Report given to DONIS Angeles.
--- NOTE | 2018-12-23 20:10 | NUR ---
NURSE NOTES: Received report from Fatou DYKES. Pt was resting in the bed w.o any acute distress noted. Pt is AO x0. Cardica monitor is on. Side rails are up x3 and call light is next to the pt. Family member is at bedside. HOB is + 45 degree. Tube feeding tolerating well: no residual noted. Will continue to monitor the pt.
[2018-12-23] MEDS: Atorvastatin 20mg tab GT SCH (20:30)
--- NOTE | 2018-12-23 21:31 | General Progress Note ---
Assessment/Plan Problem List: (1) Dementia with behavioral disturbance ICD Codes: F03.91 - Unspecified dementia with behavioral disturbance SNOMED: 1558911141804 (2) Fever ICD Codes: R50.9 - Fever, unspecified SNOMED: 257651645 (3) Dehydration ICD Codes: E86.0 - Dehydration SNOMED: 07889666 (4) Anemia ICD Codes: D64.9 - Anemia, unspecified SNOMED: 258515264 (5) Thrombocytopenia ICD Codes: D69.6 - Thrombocytopenia, unspecified SNOMED: 721999462 (6) CVA (cerebral vascular accident) ICD Codes: I63.9 - Cerebral infarction, unspecified SNOMED: 094273319 Qualifiers: Qualified Codes: I63.9 - Cerebral infarction, unspecified (7) Elevated troponin I level ICD Codes: R74.8 - Abnormal levels of other serum enzymes SNOMED: 115785449 (8) Diabetic nephropathy 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 SNOMED: 452378119 (9) Feeding by G-tube ICD Codes: Z93.1 - Gastrostomy status SNOMED: 713001731, 276976944, 657674819 Status: progressing Assessment/Plan malnutrition s/p peg tolerating feeding reviewed meds uti sepsis reviewd chart and labs pna subacute cva persistent pancytopenia Subjective ROS Limited/Unobtainable: Yes Allergies: Coded Allergies: No Known Allergies (Unverified , 12/14/18) Objective Last 24 Hour Vital Signs Date Time Temp Pulse Resp B/P (MAP) Pulse Ox O2 Delivery O2 Flow Rate FiO2 12/23/18 20:10 79 18 Nasal Cannula 2.0 28 12/23/18 20:10 Nasal Cannula 2.0 28 12/23/18 20:10 99 Nasal Cannula 2.0 28 12/23/18 17:15 141/65 12/23/18 17:15 141/65 12/23/18 16:00 90 12/23/18 16:00 97.9 80 20 141/65 (90) 100 12/23/18 12:46 119/63 12/23/18 12:00 98.0 70 18 119/63 (81) 100 12/23/18 12:00 64 12/23/18 09:00 Nasal Cannula 2.0 12/23/18 08:00 98.4 75 18 144/72 (96) 98 12/23/18 08:00 70 12/23/18 06:17 135/58 12/23/18 04:00 98.6 77 20 135/58 (83) 98 12/23/18 04:00 76 12/23/18 00:45 136/67 12/23/18 00:00 69 12/23/18 00:00 98.6 75 20 136/67 (90) 100 Intake and Output 12/22/18 12/23/18 18:59 06:59 Intake Total 660 ml Output Total 750 ml Balance -750 ml 660 ml Tube Feeding 660 ml Output Urine Total 750 ml Laboratory Tests 12/23/18 07:15: White Blood Count 2.5L, Red Blood Count 2.76L, Hemoglobin 8.5L, Hematocrit 26.8L , Mean Corpuscular Volume 97, Mean Corpuscular Hemoglobin 30.7, Mean Corpuscular Hemoglobin Concent 31.6L, Red Cell Distribution Width 16.2H, Platelet Count 74L, Mean Platelet Volume 8.5, Neutrophils (%) (Auto) , Lymphocytes (%) (Auto) , Monocytes (%) (Auto) , Eosinophils (%) (Auto) , Basophils (%) (Auto) , Differential Total Cells Counted 100, Neutrophils % ( Manual) 75, Lymphocytes % (Manual) 12L, Monocytes % (Manual) 6, Eosinophils % ( Manual) 2, Basophils % (Manual) 0, Band Neutrophils 5, Platelet Estimate DecreasedL, Platelet Morphology Normal, Anisocytosis 1+, Sodium Level 140, Potassium Level 3.8, Chloride Level 105, Carbon Dioxide Level 33H, Anion Gap 2L , Blood Urea Nitrogen 19H, Creatinine 0.8, Estimat Glomerular Filtration Rate , Glucose Level 150H, Calcium Level 9.3 Height (Feet): 5 Height (Inches): 2.00 Weight (Pounds): 115 General Appearance: confused Respiratory/Chest: lungs clear Abdomen: soft Yi Asencio MD Dec 23, 2018 21:31
--- NOTE | 2018-12-23 23:03 | General Progress Note ---
Assessment/Plan Assessment/Plan Assessment/Plan: # Decreased white blood cell count, Leukopenia --> if the total ANC is less than 2000, consider neupogen --> continue antibiotics with ID service, appreciate recs --> medications have been reviewed --> hepatitis and hiv negative Wbc trend: 4-->2.7-->2.2->2.8-->2.6-->2.5 # Thrombocytopenia - potential causes multifactorial, evaluate liver and viral etiologies to begin, also could be related to underlying medications patient has received. --> Hep panel and HIV negative --> US abd to evaluate for cirrhosis and hsm reviewed --> Peripheral smear ordered to evaluate for blasts /schistocytes --> abx and other meds have been reviewed --> ok for ppx if plt >50k w/ either heparin or lovenox --> Transfuse if Plt < 20k and fever, or if Plt < 10k without fever --> PLT trend: 51-->58-->71-->65-->71-->75 # Pancytopenia, likely related to septicemia, appears new baseline 50-70k, several causes possible including viral, medication or intrabone marrow related. --> Cont to monitor plt count for improvement --> US abd: Mild left hydronephrosis. Possible left renal calyceal calculi. Negative for gallstones or dilated ducts Debris noted within the bladder --> Hep panel and HIV are both negative --> given extremely poor condition do not recommend a bone marrow biopsy, have discussed with family 08/01 with --> will rediscuss once sepsis resolves --> transfuse if plt <20k # Anemia of chronic disease. Multifactorial. Since admission Hgb has consistently remained between 8-9. --> Cont to monitor for stability --> Hgb goal above 7. Transfuse prn. --> IV iron completed prior admission and feritin is elevated # DVT of the left leg s/p IVC filter in 07/2018-- superficial femoral vein which is a deep vein, new onset, has not had these symptoms before. Lower hgb and plts --> given decreased h/h, low thrombocytopenia, do not recommend anticoag --> appreciate Dr. Parekh and Mariam arias from prior admission --> smear reviewed # Dehydration. IVF has been administered --> improved # DM OOC --> A1C goal <7 --> Cont on insulin # Bacteremia/prior UTI. --> ID is following. Appreciate recs. --> Pt on IV abx. --> Cultures surveillance as per id # PEG placement 08/04. Greatly appreciate consultation! Subjective Allergies: Coded Allergies: No Known Allergies (Unverified , 12/14/18) Subjective 12/16: seen by bedside, awake, comfortable, hgb 8, plt 51 12/18: awake, non verbal on NC, no events, pending labs today 12/19: Pt is resting in bed, no events reported, plt 71 12/20: seen by bedside, awake, comfortable, no events 12/21: Awake, comfortable, no acute distress reported. 12/22: resting in bed, no events reported. 12/23: Pt is seen resting in bed, no acute distress. Objective Last 24 Hour Vital Signs Date Time Temp Pulse Resp B/P (MAP) Pulse Ox O2 Delivery O2 Flow Rate FiO2 12/23/18 20:10 79 18 Nasal Cannula 2.0 28 12/23/18 20:10 Nasal Cannula 2.0 28 12/23/18 20:10 99 Nasal Cannula 2.0 28 12/23/18 20:00 81 12/23/18 20:00 97.6 87 17 137/83 (101) 96 12/23/18 17:15 141/65 12/23/18 17:15 141/65 12/23/18 16:00 90 12/23/18 16:00 97.9 80 20 141/65 (90) 100 12/23/18 12:46 119/63 12/23/18 12:00 98.0 70 18 119/63 (81) 100 12/23/18 12:00 64 12/23/18 09:00 Nasal Cannula 2.0 12/23/18 08:00 98.4 75 18 144/72 (96) 98 12/23/18 08:00 70 12/23/18 06:17 135/58 12/23/18 04:00 98.6 77 20 135/58 (83) 98 12/23/18 04:00 76 12/23/18 00:45 136/67 12/23/18 00:00 69 12/23/18 00:00 98.6 75 20 136/67 (90) 100 Intake and Output 12/22/18 12/23/18 18:59 06:59 Intake Total 660 ml Output Total 750 ml Balance -750 ml 660 ml Tube Feeding 660 ml Output Urine Total 750 ml Laboratory Tests 12/23/18 07:15: White Blood Count 2.5L, Red Blood Count 2.76L, Hemoglobin 8.5L, Hematocrit 26.8L , Mean Corpuscular Volume 97, Mean Corpuscular Hemoglobin 30.7, Mean Corpuscular Hemoglobin Concent 31.6L, Red Cell Distribution Width 16.2H, Platelet Count 74L, Mean Platelet Volume 8.5, Neutrophils (%) (Auto) , Lymphocytes (%) (Auto) , Monocytes (%) (Auto) , Eosinophils (%) (Auto) , Basophils (%) (Auto) , Differential Total Cells Counted 100, Neutrophils % ( Manual) 75, Lymphocytes % (Manual) 12L, Monocytes % (Manual) 6, Eosinophils % ( Manual) 2, Basophils % (Manual) 0, Band Neutrophils 5, Platelet Estimate DecreasedL, Platelet Morphology Normal, Anisocytosis 1+, Sodium Level 140, Potassium Level 3.8, Chloride Level 105, Carbon Dioxide Level 33H, Anion Gap 2L , Blood Urea Nitrogen 19H, Creatinine 0.8, Estimat Glomerular Filtration Rate , Glucose Level 150H, Calcium Level 9.3 Height (Feet): 5 Height (Inches): 2.00 Weight (Pounds): 115 Objective PHYSICAL EXAMINATION: VITAL SIGNS: Reviewed. Saturating 100% on 2 L. NC++ GENERAL: She is an elderly demented female, in no acute distress. Nonverbal. HEENT: Normocephalic and atraumatic. Oropharynx is clear. Moist mucous membranes. NECK: Supple without lymphadenopathy. CHEST: Clear, but rales at the bases. HEART: Regular rate and rhythm. ABDOMEN: Soft, nontender, and nondistended. ++ peg EXTREMITIES: No cyanosis, clubbing or edema. Dewayne Gayle MD Dec 23, 2018 23:03
[2018-12-24] VITALS: BP 118/65
[2018-12-24] MEDS: HydrALAZINE 10mg Tab GT SCH ×5 (00:57→23:39)
[2018-12-24] MEDS: NovoLOG Insulin Flexpen SUBQ SCH ×5 (00:59→23:50)
[2018-12-24 04:00] VITALS: BP 116/65
--- NOTE | 2018-12-24 07:40 | NUR ---
HAND-OFF: Report given to Philomena DYKES
--- NOTE | 2018-12-24 07:45 | NUR ---
NURSE NOTES: received patient report from christian flores. patient is on bed asleep. not in acute distress. sr per report all throughout the night. no arrythmias reported. will follow plan of care.
[2018-12-24 08:00] VITALS: BP 146/79
--- NOTE | 2018-12-24 08:40 | General Progress Note ---
Assessment/Plan Problem List: (1) Anemia ICD Codes: D64.9 - Anemia, unspecified SNOMED: 399296449 (2) Diabetic nephropathy 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 SNOMED: 740116351 (3) Feeding by G-tube ICD Codes: Z93.1 - Gastrostomy status SNOMED: 511457647, 330623001, 554156949 Assessment/Plan Abdominal US reviewed, see full report. Equivocally slightly coarsened hepatic echogenicity, could indicate hepatocellular disease. GTF per RD, tolerating prn transfusions ppi reglan if needed abx per ID supportive care fu labs Subjective ROS Limited/Unobtainable: No Allergies: Coded Allergies: No Known Allergies (Unverified , 12/14/18) Objective Last 24 Hour Vital Signs Date Time Temp Pulse Resp B/P (MAP) Pulse Ox O2 Delivery O2 Flow Rate FiO2 12/24/18 05:52 116/65 12/24/18 04:00 98.2 93 17 116/65 (82) 98 12/24/18 04:00 90 12/24/18 00:57 118/65 12/24/18 00:00 91 12/24/18 00:00 98.2 97 19 118/65 (82) 97 12/23/18 21:00 Nasal Cannula 2.0 12/23/18 20:10 79 18 Nasal Cannula 2.0 28 12/23/18 20:10 Nasal Cannula 2.0 28 12/23/18 20:10 99 Nasal Cannula 2.0 28 12/23/18 20:00 81 12/23/18 20:00 97.6 87 17 137/83 (101) 96 12/23/18 17:15 141/65 12/23/18 17:15 141/65 12/23/18 16:00 90 12/23/18 16:00 97.9 80 20 141/65 (90) 100 12/23/18 12:46 119/63 12/23/18 12:00 98.0 70 18 119/63 (81) 100 12/23/18 12:00 64 12/23/18 09:00 Nasal Cannula 2.0 Intake and Output 12/23/18 12/24/18 19:00 07:00 Intake Total 860 ml Output Total 800 ml 700 ml Balance -800 ml 160 ml Free Water 200 ml Tube Feeding 660 ml Output Urine Total 800 ml 700 ml Height (Feet): 5 Height (Inches): 2.00 Weight (Pounds): 115 General Appearance: confused EENT: normal ENT inspection Neck: supple Cardiovascular: normal rate Respiratory/Chest: decreased breath sounds Abdomen: normal bowel sounds, non tender, soft Extremities: non-tender Edwardo Argueta MD Dec 24, 2018 08:40
[2018-12-24] MEDS: Aspirin Baby 81mg NG SCH (08:48)
--- NOTE | 2018-12-24 10:23 | Infectious Diseases Prog Note ---
Assessment/Plan Assessment/Plan antibiotics : none A 1. e.coli UTI s/p rx 2. pneumonia s/p rx 3. bilateral renal calculus 4. left ureteral calculus 5. diabetes mellitus 6. CVA P 1. observe off antibiotics Subjective ROS Limited/Unobtainable: Yes Allergies: Coded Allergies: No Known Allergies (Unverified , 12/14/18) Objective Vital Signs Last 24 Hour Vital Signs Date Time Temp Pulse Resp B/P (MAP) Pulse Ox O2 Delivery O2 Flow Rate FiO2 12/24/18 09:00 Nasal Cannula 2.0 12/24/18 08:00 95.6 98 18 146/79 (101) 98 12/24/18 08:00 96 12/24/18 05:52 116/65 12/24/18 04:00 98.2 93 17 116/65 (82) 98 12/24/18 04:00 90 12/24/18 00:57 118/65 12/24/18 00:00 91 12/24/18 00:00 98.2 97 19 118/65 (82) 97 12/23/18 21:00 Nasal Cannula 2.0 12/23/18 20:10 79 18 Nasal Cannula 2.0 28 12/23/18 20:10 Nasal Cannula 2.0 28 12/23/18 20:10 99 Nasal Cannula 2.0 28 12/23/18 20:00 81 12/23/18 20:00 97.6 87 17 137/83 (101) 96 12/23/18 17:15 141/65 12/23/18 17:15 141/65 12/23/18 16:00 90 12/23/18 16:00 97.9 80 20 141/65 (90) 100 12/23/18 12:46 119/63 12/23/18 12:00 98.0 70 18 119/63 (81) 100 12/23/18 12:00 64 Height (Feet): 5 Height (Inches): 2.00 Weight (Pounds): 115 Respiratory/Chest: lungs clear Cardiovascular: normal rate, regular rhythm, no gallop/murmur Abdomen: soft, non tender, other - GT Extremities: no edema Current Medications Medications (Trade) Dose Ordered Sig/Laure Route PRN Reason Start Time Stop Time Status Last Admin Dose Admin Acetaminophen (Tylenol) 650 mg Q4H PRN GT Mild Pain/Temp > 100.5 12/19/18 11:00 01/13/19 10:59 Albuterol/ Ipratropium (Albuterol/ Ipratropium) 3 ml Q4H PRN HHN Shortness of Breath 12/20/18 10:45 12/25/18 10:44 Aspirin (ASA) 81 mg DAILY NG 12/19/18 15:30 01/18/19 15:29 12/24/18 08:48 Atorvastatin Calcium (Lipitor) 20 mg BEDTIME GT 12/19/18 21:00 01/17/19 20:59 12/23/18 20:30 Clopidogrel Bisulfate (Plavix) 75 mg DAILY GT 12/20/18 09:00 01/14/19 08:59 12/24/18 08:47 Dextrose (Dextrose 50%) 25 ml Q30M PRN IV Hypoglycemia 12/19/18 11:15 01/13/19 17:14 Dextrose (Dextrose 50%) 50 ml Q30M PRN IV Hypoglycemia 12/19/18 11:15 01/13/19 17:14 Hydralazine HCl (Apresoline) 10 mg Q6HR GT 12/19/18 12:00 01/17/19 17:59 12/24/18 05:52 Hydralazine HCl (Apresoline) 25 mg Q4H PRN GT bp over 160 syst 12/19/18 11:00 01/17/19 10:59 Insulin Aspart (NovoLOG) EVERY 6 HOURS SUBQ 12/19/18 12:00 01/13/19 20:59 12/24/18 05:55 Lansoprazole (Prevacid) 30 mg BID GT 12/19/18 18:00 01/15/19 17:59 12/24/18 08:48 Nitroglycerin (Ntg) 1 patch Q24H TDERMAL 12/19/18 17:00 01/13/19 16:59 12/23/18 17:15 Ondansetron HCl (Zofran ODT) 4 mg Q4HR ORAL 12/19/18 13:00 01/13/19 20:59 12/24/18 08:48 Potassium Chloride (K-Dur) 20 meq TWICE A DAY GT 12/22/18 18:00 01/21/19 17:59 12/24/18 08:48 Jasmine Lechuga MD Dec 24, 2018 10:23
[2018-12-24 12:00] VITALS: BP 153/73
--- NOTE | 2018-12-24 12:29 | General Progress Note ---
Assessment/Plan Problem List: (1) Feeding by G-tube ICD Codes: Z93.1 - Gastrostomy status SNOMED: 782386015, 783026390, 335132023 (2) Altered mental status ICD Codes: R41.82 - Altered mental status, unspecified SNOMED: 031929211 (3) Thrombocytopenia ICD Codes: D69.6 - Thrombocytopenia, unspecified SNOMED: 351481052 (4) Sepsis ICD Codes: A41.9 - Sepsis, unspecified organism SNOMED: 77971846 Assessment/Plan continue Novolog sliding scale every 6 hours no need for basal insulin for now Subjective Allergies: Coded Allergies: No Known Allergies (Unverified , 12/14/18) Subjective events noted Item Value Date Time Bedside Blood Glucose 175 mg/dl H 12/24/18 1207 Bedside Blood Glucose 166 mg/dl H 12/24/18 0600 Bedside Blood Glucose 171 mg/dl H 12/24/18 0059 Objective Last 24 Hour Vital Signs Date Time Temp Pulse Resp B/P (MAP) Pulse Ox O2 Delivery O2 Flow Rate FiO2 12/24/18 12:06 146/79 12/24/18 12:00 98.2 95 18 153/73 (99) 98 12/24/18 09:14 Nasal Cannula 2.0 28 12/24/18 09:13 98 Nasal Cannula 2.0 28 12/24/18 09:13 77 18 Nasal Cannula 2.0 28 12/24/18 09:00 Nasal Cannula 2.0 12/24/18 08:00 95.6 98 18 146/79 (101) 98 12/24/18 08:00 96 12/24/18 05:52 116/65 12/24/18 04:00 98.2 93 17 116/65 (82) 98 12/24/18 04:00 90 12/24/18 00:57 118/65 12/24/18 00:00 91 12/24/18 00:00 98.2 97 19 118/65 (82) 97 12/23/18 21:00 Nasal Cannula 2.0 12/23/18 20:10 79 18 Nasal Cannula 2.0 28 12/23/18 20:10 Nasal Cannula 2.0 28 12/23/18 20:10 99 Nasal Cannula 2.0 28 12/23/18 20:00 81 12/23/18 20:00 97.6 87 17 137/83 (101) 96 12/23/18 17:15 141/65 12/23/18 17:15 141/65 12/23/18 16:00 90 12/23/18 16:00 97.9 80 20 141/65 (90) 100 12/23/18 12:46 119/63 Intake and Output 12/23/18 12/24/18 19:00 07:00 Intake Total 860 ml Output Total 800 ml 700 ml Balance -800 ml 160 ml Free Water 200 ml Tube Feeding 660 ml Output Urine Total 800 ml 700 ml Height (Feet): 5 Height (Inches): 2.00 Weight (Pounds): 115 General Appearance: no apparent distress Neck: normal alignment Cardiovascular: normal rate Respiratory/Chest: lungs clear Objective Current Medications Medications (Trade) Dose Ordered Sig/Laure Route PRN Reason Start Time Stop Time Status Last Admin Dose Admin Acetaminophen (Tylenol) 650 mg Q4H PRN GT Mild Pain/Temp > 100.5 12/19/18 11:00 01/13/19 10:59 Albuterol/ Ipratropium (Albuterol/ Ipratropium) 3 ml Q4H PRN HHN Shortness of Breath 12/20/18 10:45 12/25/18 10:44 Aspirin (ASA) 81 mg DAILY NG 12/19/18 15:30 01/18/19 15:29 12/24/18 08:48 Atorvastatin Calcium (Lipitor) 20 mg BEDTIME GT 12/19/18 21:00 01/17/19 20:59 12/23/18 20:30 Clopidogrel Bisulfate (Plavix) 75 mg DAILY GT 12/20/18 09:00 01/14/19 08:59 12/24/18 08:47 Dextrose (Dextrose 50%) 25 ml Q30M PRN IV Hypoglycemia 12/19/18 11:15 01/13/19 17:14 Dextrose (Dextrose 50%) 50 ml Q30M PRN IV Hypoglycemia 12/19/18 11:15 01/13/19 17:14 Hydralazine HCl (Apresoline) 10 mg Q6HR GT 12/19/18 12:00 01/17/19 17:59 12/24/18 12:06 Hydralazine HCl (Apresoline) 25 mg Q4H PRN GT bp over 160 syst 12/19/18 11:00 01/17/19 10:59 Insulin Aspart (NovoLOG) EVERY 6 HOURS SUBQ 12/19/18 12:00 01/13/19 20:59 12/24/18 12:07 Lansoprazole (Prevacid) 30 mg BID GT 12/19/18 18:00 01/15/19 17:59 12/24/18 08:48 Nitroglycerin (Ntg) 1 patch Q24H TDERMAL 12/19/18 17:00 01/13/19 16:59 12/23/18 17:15 Ondansetron HCl (Zofran ODT) 4 mg Q4HR ORAL 12/19/18 13:00 01/13/19 20:59 12/24/18 12:06 Potassium Chloride (K-Dur) 20 meq TWICE A DAY GT 12/22/18 18:00 01/21/19 17:59 12/24/18 08:48 Enrique Tafoya MD Dec 24, 2018 12:29
--- NOTE | 2018-12-24 15:12 | Nephrology Progress Note ---
Assessment/Plan Problem List: (1) Diabetic nephropathy (2) Hypokalemia (3) Anemia (4) UTI (urinary tract infection) Assessment Electrolyte imbalance UTI Anemia Low K Diabetic Nephropathy, HypoAlbuminemia CAD Plan No labs today DC Lopressor dose- On hydralazine K Phos , KCl , MgSo4 IV as needed antibiotics avoid nephrotoxics anemia mac per orders Subjective ROS Limited/Unobtainable: No Constitutional: Reports: malaise Objective Objective Last 24 Hour Vital Signs Date Time Temp Pulse Resp B/P (MAP) Pulse Ox O2 Delivery O2 Flow Rate FiO2 12/24/18 12:06 146/79 12/24/18 12:00 98.2 95 18 153/73 (99) 98 12/24/18 12:00 95 12/24/18 09:14 Nasal Cannula 2.0 28 12/24/18 09:13 98 Nasal Cannula 2.0 28 12/24/18 09:13 77 18 Nasal Cannula 2.0 28 12/24/18 09:00 Nasal Cannula 2.0 12/24/18 08:00 95.6 98 18 146/79 (101) 98 12/24/18 08:00 96 12/24/18 05:52 116/65 12/24/18 04:00 98.2 93 17 116/65 (82) 98 12/24/18 04:00 90 12/24/18 00:57 118/65 12/24/18 00:00 91 12/24/18 00:00 98.2 97 19 118/65 (82) 97 12/23/18 21:00 Nasal Cannula 2.0 12/23/18 20:10 79 18 Nasal Cannula 2.0 28 12/23/18 20:10 Nasal Cannula 2.0 28 12/23/18 20:10 99 Nasal Cannula 2.0 28 12/23/18 20:00 81 12/23/18 20:00 97.6 87 17 137/83 (101) 96 12/23/18 17:15 141/65 12/23/18 17:15 141/65 12/23/18 16:00 90 12/23/18 16:00 97.9 80 20 141/65 (90) 100 Intake and Output 12/23/18 12/24/18 19:00 07:00 Intake Total 860 ml Output Total 800 ml 700 ml Balance -800 ml 160 ml Free Water 200 ml Tube Feeding 660 ml Output Urine Total 800 ml 700 ml Height (Feet): 5 Height (Inches): 2.00 Weight (Pounds): 115 General Appearance: no apparent distress Objective no change Parvez Bergman MD Dec 24, 2018 15:12
[2018-12-24 16:00] VITALS: BP 147/75
[2018-12-24] MEDS: Nitroglycerin Patch 0.4mg TDERMAL SCH (17:03)
--- NOTE | 2018-12-24 17:52 | Pulmonology Progress Note ---
Assessment/Plan Assessment/Plan Problems: (1) UTI e coli (2) CVA (3) Encephalopathy due to metabolic factor or toxin (4) DVT sp IVC filter (5) Anemia (6) Thrombocytopenia (7) Dementia with behavioral disturbance (8) Feeding by G-tube Assessment/Plan Optimize pulmonary hygiene/mobilize as tolerated PRN O2 PRN HHN's Observe off Abx per ID Monitor HH, transfuse as needed NPO and GT feeds F/U recs --> conservative management of hydronephrosis TF's as tolerated DVT Px: IVCF CXR wednesday FC Continue to discuss GOC Subjective ROS Limited/Unobtainable: Yes Allergies: Coded Allergies: No Known Allergies (Unverified , 12/14/18) Subjective eyes open nonverbal no distress toelrating of on o2 no events noted overnight nonambulatory Objective Last 24 Hour Vital Signs Date Time Temp Pulse Resp B/P (MAP) Pulse Ox O2 Delivery O2 Flow Rate FiO2 12/24/18 17:04 147/75 12/24/18 17:03 147/75 12/24/18 16:00 98 12/24/18 16:00 98.2 96 18 147/75 (99) 95 12/24/18 12:06 146/79 12/24/18 12:00 98.2 95 18 153/73 (99) 98 12/24/18 12:00 95 12/24/18 09:14 Nasal Cannula 2.0 28 12/24/18 09:13 98 Nasal Cannula 2.0 28 12/24/18 09:13 77 18 Nasal Cannula 2.0 28 12/24/18 09:00 Nasal Cannula 2.0 12/24/18 08:00 95.6 98 18 146/79 (101) 98 12/24/18 08:00 96 12/24/18 05:52 116/65 12/24/18 04:00 98.2 93 17 116/65 (82) 98 12/24/18 04:00 90 12/24/18 00:57 118/65 12/24/18 00:00 91 12/24/18 00:00 98.2 97 19 118/65 (82) 97 12/23/18 21:00 Nasal Cannula 2.0 12/23/18 20:10 79 18 Nasal Cannula 2.0 28 12/23/18 20:10 Nasal Cannula 2.0 28 12/23/18 20:10 99 Nasal Cannula 2.0 28 12/23/18 20:00 81 12/23/18 20:00 97.6 87 17 137/83 (101) 96 Intake and Output 12/23/18 12/24/18 19:00 07:00 Intake Total 860 ml Output Total 800 ml 700 ml Balance -800 ml 160 ml Free Water 200 ml Tube Feeding 660 ml Output Urine Total 800 ml 700 ml General Appearance: WD/WN HEENT: atraumatic, mucous membranes moist Respiratory/Chest: rhonchi Cardiovascular: normal rate, regularly irregular, edema Abdomen: soft, non tender, no organomegaly Extremities: no cyanosis, no clubbing Neurologic/Psychiatric: disoriented Current Medications Medications (Trade) Dose Ordered Sig/Laure Route PRN Reason Start Time Stop Time Status Last Admin Dose Admin Acetaminophen (Tylenol) 650 mg Q4H PRN GT Mild Pain/Temp > 100.5 12/19/18 11:00 01/13/19 10:59 Albuterol/ Ipratropium (Albuterol/ Ipratropium) 3 ml Q4H PRN HHN Shortness of Breath 12/20/18 10:45 12/25/18 10:44 Aspirin (ASA) 81 mg DAILY NG 12/19/18 15:30 01/18/19 15:29 12/24/18 08:48 Atorvastatin Calcium (Lipitor) 20 mg BEDTIME GT 12/19/18 21:00 01/17/19 20:59 12/23/18 20:30 Clopidogrel Bisulfate (Plavix) 75 mg DAILY GT 12/20/18 09:00 01/14/19 08:59 12/24/18 08:47 Dextrose (Dextrose 50%) 25 ml Q30M PRN IV Hypoglycemia 12/19/18 11:15 01/13/19 17:14 Dextrose (Dextrose 50%) 50 ml Q30M PRN IV Hypoglycemia 12/19/18 11:15 01/13/19 17:14 Hydralazine HCl (Apresoline) 10 mg Q6HR GT 12/19/18 12:00 01/17/19 17:59 12/24/18 17:04 Hydralazine HCl (Apresoline) 25 mg Q4H PRN GT bp over 160 syst 12/19/18 11:00 01/17/19 10:59 Insulin Aspart (NovoLOG) EVERY 6 HOURS SUBQ 12/19/18 12:00 01/13/19 20:59 12/24/18 17:17 Lansoprazole (Prevacid) 30 mg BID GT 12/19/18 18:00 01/15/19 17:59 12/24/18 17:05 Nitroglycerin (Ntg) 1 patch Q24H TDERMAL 12/19/18 17:00 01/13/19 16:59 12/24/18 17:03 Ondansetron HCl (Zofran ODT) 4 mg Q4HR ORAL 12/19/18 13:00 01/13/19 20:59 12/24/18 17:03 Potassium Chloride (K-Dur) 20 meq TWICE A DAY GT 12/22/18 18:00 01/21/19 17:59 12/24/18 17:05 Celia Becerra 16, 2019 17:52
--- NOTE | 2018-12-24 19:25 | NUR ---
HAND-OFF: Report given to angel flores.
--- NOTE | 2018-12-24 19:26 | NUR ---
NURSE NOTES: Got report from Philomena DYKES. Pt in stable condition. No s/s of distress noted. Pt resting in bed comfortably. Bed in low and locked position, call light within reach, bedside table within reach. Continue to monitor.
[2018-12-24 20:00] VITALS: BP 135/64
--- NOTE | 2018-12-24 20:26 | General Progress Note ---
Assessment/Plan Problem List: (1) Dementia with behavioral disturbance ICD Codes: F03.91 - Unspecified dementia with behavioral disturbance SNOMED: 9052390482584 (2) Fever ICD Codes: R50.9 - Fever, unspecified SNOMED: 347274797 (3) Dehydration ICD Codes: E86.0 - Dehydration SNOMED: 79425579 (4) Anemia ICD Codes: D64.9 - Anemia, unspecified SNOMED: 328224320 (5) Thrombocytopenia ICD Codes: D69.6 - Thrombocytopenia, unspecified SNOMED: 665298921 (6) CVA (cerebral vascular accident) ICD Codes: I63.9 - Cerebral infarction, unspecified SNOMED: 912281708 Qualifiers: Qualified Codes: I63.9 - Cerebral infarction, unspecified (7) Elevated troponin I level ICD Codes: R74.8 - Abnormal levels of other serum enzymes SNOMED: 040549685 (8) Diabetic nephropathy 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 SNOMED: 526224259 (9) Feeding by G-tube ICD Codes: Z93.1 - Gastrostomy status SNOMED: 617476412, 917334513, 048041767 Assessment/Plan malnutrition s/p peg tolerating feeding reviewed meds uti improving sepsis reviewd chart and labs pna improving subacute cva persistent pancytopenia Subjective ROS Limited/Unobtainable: Yes Allergies: Coded Allergies: No Known Allergies (Unverified , 12/14/18) Objective Last 24 Hour Vital Signs Date Time Temp Pulse Resp B/P (MAP) Pulse Ox O2 Delivery O2 Flow Rate FiO2 12/24/18 17:04 147/75 12/24/18 17:03 147/75 12/24/18 16:00 98 12/24/18 16:00 98.2 96 18 147/75 (99) 95 12/24/18 12:06 146/79 12/24/18 12:00 98.2 95 18 153/73 (99) 98 12/24/18 12:00 95 12/24/18 09:14 Nasal Cannula 2.0 28 12/24/18 09:13 98 Nasal Cannula 2.0 28 12/24/18 09:13 77 18 Nasal Cannula 2.0 28 12/24/18 09:00 Nasal Cannula 2.0 12/24/18 08:00 95.6 98 18 146/79 (101) 98 12/24/18 08:00 96 12/24/18 05:52 116/65 12/24/18 04:00 98.2 93 17 116/65 (82) 98 12/24/18 04:00 90 12/24/18 00:57 118/65 12/24/18 00:00 91 12/24/18 00:00 98.2 97 19 118/65 (82) 97 12/23/18 21:00 Nasal Cannula 2.0 Intake and Output 12/23/18 12/24/18 19:00 07:00 Intake Total 860 ml Output Total 800 ml 700 ml Balance -800 ml 160 ml Free Water 200 ml Tube Feeding 660 ml Output Urine Total 800 ml 700 ml Height (Feet): 5 Height (Inches): 2.00 Weight (Pounds): 115 General Appearance: confused Abdomen: soft Yi Asencio MD Dec 24, 2018 20:26
[2018-12-24] MEDS: Atorvastatin 20mg tab GT SCH (20:41)
[2018-12-25] VITALS (7 sets, daily range): BP systolic 138–154; BP diastolic 65–78
[2018-12-25] MEDS: HydrALAZINE 10mg Tab GT SCH ×3 (06:20→17:03)
[2018-12-25] MEDS: NovoLOG Insulin Flexpen SUBQ SCH ×3 (06:28→17:06)
[2018-12-25 06:37] LABS: HEMATOCRIT 27.8 % (37.0-47.0); HEMOGLOBIN 8.8 G/DL (12.0-16.0); MEAN CORPUSCULAR VOLUME 96 FL (80-99); PLATELET COUNT 78 K/UL (150-450); RED BLOOD COUNT 2.88 M/UL (4.20-5.40); RED CELL DISTRIBUTION WIDTH 15.9 % (11.6-14.8); WHITE BLOOD COUNT 3.1 K/UL (4.8-10.8)
--- NOTE | 2018-12-25 07:01 | Pulmonology Progress Note ---
Assessment/Plan Assessment/Plan Problems: (1) UTI e coli (2) CVA (3) Encephalopathy due to metabolic factor or toxin (4) DVT sp IVC filter (5) Anemia (6) Thrombocytopenia (7) Dementia with behavioral disturbance (8) Feeding by G-tube Assessment/Plan PRN O2 PRN HHN's Observe off Abx per ID Monitor HH, transfuse as needed NPO and GT feeds TF's as tolerated DVT Px: IVCF CXR wednesday FC Continue to discuss GOC Subjective ROS Limited/Unobtainable: Yes Allergies: Coded Allergies: No Known Allergies (Unverified , 12/14/18) Subjective no events noted over night eyes open nonverbal no distress tolerating of on o2 nonambulatory Objective Last 24 Hour Vital Signs Date Time Temp Pulse Resp B/P (MAP) Pulse Ox O2 Delivery O2 Flow Rate FiO2 12/25/18 06:20 145/80 12/25/18 04:20 98.0 88 20 147/72 (97) 100 12/25/18 04:20 96 12/25/18 00:00 97.9 88 20 138/65 (89) 100 12/25/18 00:00 86 12/24/18 23:39 138/65 12/24/18 21:25 86 18 Nasal Cannula 2.0 28 12/24/18 21:25 97 Nasal Cannula 2.0 28 12/24/18 21:25 Nasal Cannula 2.0 28 12/24/18 21:00 Nasal Cannula 2.0 12/24/18 20:00 97.7 87 20 135/64 (87) 100 12/24/18 20:00 92 12/24/18 17:04 147/75 12/24/18 17:03 147/75 12/24/18 16:00 98 12/24/18 16:00 98.2 96 18 147/75 (99) 95 12/24/18 12:06 146/79 12/24/18 12:00 98.2 95 18 153/73 (99) 98 12/24/18 12:00 95 12/24/18 09:14 Nasal Cannula 2.0 28 12/24/18 09:13 98 Nasal Cannula 2.0 28 12/24/18 09:13 77 18 Nasal Cannula 2.0 28 12/24/18 09:00 Nasal Cannula 2.0 12/24/18 08:00 95.6 98 18 146/79 (101) 98 12/24/18 08:00 96 Intake and Output 12/24/18 12/25/18 19:00 07:00 Intake Total 605 ml 660 ml Output Total 750 ml 1000 ml Balance -145 ml -340 ml Tube Feeding 605 ml 660 ml Output Urine Total 750 ml 1000 ml # Bowel Movements 2 General Appearance: cachetic Respiratory/Chest: rhonchi Cardiovascular: normal rate, regular rhythm Abdomen: soft, non tender, no organomegaly Neurologic/Psychiatric: disoriented Laboratory Tests 12/25/18 06:05: White Blood Count 3.1L, Red Blood Count 2.88L, Hemoglobin 8.8L, Hematocrit 27.8L , Mean Corpuscular Volume 96, Mean Corpuscular Hemoglobin 30.4, Mean Corpuscular Hemoglobin Concent 31.6L, Red Cell Distribution Width 15.9H, Platelet Count 78L, Mean Platelet Volume 7.5, Neutrophils (%) (Auto) , Lymphocytes (%) (Auto) , Monocytes (%) (Auto) , Eosinophils (%) (Auto) , Basophils (%) (Auto) , Neutrophils % (Manual) [Pending], Lymphocytes % (Manual) [Pending], Platelet Estimate [Pending], Platelet Morphology [Pending], Sodium Level [Pending], Potassium Level [Pending], Chloride Level [Pending], Carbon Dioxide Level [Pending], Blood Urea Nitrogen [Pending], Creatinine [Pending], Estimat Glomerular Filtration Rate [Pending], Glucose Level [Pending], Calcium Level [Pending], Total Bilirubin [Pending], Aspartate Amino Transf (AST/SGOT) [ Pending], Alanine Aminotransferase (ALT/SGPT) [Pending], Alkaline Phosphatase [ Pending], Total Protein [Pending], Albumin [Pending], Globulin [Pending] Current Medications Medications (Trade) Dose Ordered Sig/Laure Route PRN Reason Start Time Stop Time Status Last Admin Dose Admin Acetaminophen (Tylenol) 650 mg Q4H PRN GT Mild Pain/Temp > 100.5 12/19/18 11:00 01/13/19 10:59 Albuterol/ Ipratropium (Albuterol/ Ipratropium) 3 ml Q4H PRN HHN Shortness of Breath 12/20/18 10:45 12/25/18 10:44 Aspirin (ASA) 81 mg DAILY NG 12/19/18 15:30 01/18/19 15:29 12/24/18 08:48 Atorvastatin Calcium (Lipitor) 20 mg BEDTIME GT 12/19/18 21:00 01/17/19 20:59 12/24/18 20:41 Clopidogrel Bisulfate (Plavix) 75 mg DAILY GT 12/20/18 09:00 01/14/19 08:59 12/24/18 08:47 Dextrose (Dextrose 50%) 25 ml Q30M PRN IV Hypoglycemia 12/19/18 11:15 01/13/19 17:14 Dextrose (Dextrose 50%) 50 ml Q30M PRN IV Hypoglycemia 12/19/18 11:15 01/13/19 17:14 Hydralazine HCl (Apresoline) 10 mg Q6HR GT 12/19/18 12:00 01/17/19 17:59 12/25/18 06:20 Hydralazine HCl (Apresoline) 25 mg Q4H PRN GT bp over 160 syst 12/19/18 11:00 01/17/19 10:59 Insulin Aspart (NovoLOG) EVERY 6 HOURS SUBQ 12/19/18 12:00 01/13/19 20:59 12/25/18 06:28 Lansoprazole (Prevacid) 30 mg BID GT 12/19/18 18:00 01/15/19 17:59 12/24/18 17:05 Nitroglycerin (Ntg) 1 patch Q24H TDERMAL 12/19/18 17:00 01/13/19 16:59 12/24/18 17:03 Ondansetron HCl (Zofran ODT) 4 mg Q4HR ORAL 12/19/18 13:00 01/13/19 20:59 12/25/18 05:00 Potassium Chloride (K-Dur) 20 meq TWICE A DAY GT 12/22/18 18:00 01/21/19 17:59 12/24/18 17:05 Celia Becerra 17, 2019 07:01
[2018-12-25 07:18] LABS: ALANINE AMINOTRANSFERASE 12 U/L (12-78); ALBUMIN 2.3 G/DL (3.4-5.0); ALBUMIN/GLOBULIN RATIO 0.5 (1.0-2.7); ALKALINE PHOSPHATASE 77 U/L (46-116); ANION GAP 5 mmol/L (5-15); ASPARTATE AMINO TRANSFERASE 35 U/L (15-37); BILIRUBIN,TOTAL 0.5 MG/DL (0.2-1.0); BLOOD UREA NITROGEN 22 mg/dL (7-18); CALCIUM 9.4 MG/DL (8.5-10.1); CARBON DIOXIDE 30 MMOL/L (21-32); CHLORIDE 107 MMOL/L (98-107); CREATININE 0.8 MG/DL (0.55-1.30); POTASSIUM 3.9 MMOL/L (3.5-5.1); SODIUM 142 MMOL/L (136-145)
--- NOTE | 2018-12-25 07:30 | NUR ---
HAND-OFF: Report given to Philomena DYKES. Endorsed plan of care.
--- NOTE | 2018-12-25 07:31 | NUR ---
NURSE NOTES: received patient report from angel flores. patient is on bed asleep, with family member. sr on the monitor. no acute distress. bed is low and locked. will follow plan of care.
[2018-12-25] MEDS: Aspirin Baby 81mg NG SCH (08:32)
--- NOTE | 2018-12-25 11:02 | General Progress Note ---
Assessment/Plan Problem List: (1) Anemia ICD Codes: D64.9 - Anemia, unspecified SNOMED: 552331990 (2) Diabetic nephropathy 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 SNOMED: 080838524 (3) Feeding by G-tube ICD Codes: Z93.1 - Gastrostomy status SNOMED: 705491604, 945245267, 992312957 Assessment/Plan Abdominal US reviewed, see full report. Equivocally slightly coarsened hepatic echogenicity, could indicate hepatocellular disease. GTF per RD, tolerating prn transfusions ppi reglan if needed abx per ID supportive care fu labs Subjective ROS Limited/Unobtainable: No Allergies: Coded Allergies: No Known Allergies (Unverified , 12/14/18) Objective Last 24 Hour Vital Signs Date Time Temp Pulse Resp B/P (MAP) Pulse Ox O2 Delivery O2 Flow Rate FiO2 12/25/18 09:00 Nasal Cannula 2.0 12/25/18 08:10 Nasal Cannula 2.0 28 12/25/18 08:10 98 Nasal Cannula 2.0 28 12/25/18 08:10 91 18 Nasal Cannula 2.0 28 12/25/18 08:00 98.5 98 20 154/78 (103) 99 12/25/18 08:00 91 12/25/18 06:20 145/80 12/25/18 04:20 98.0 88 20 147/72 (97) 100 12/25/18 04:20 96 12/25/18 00:00 97.9 88 20 138/65 (89) 100 12/25/18 00:00 86 12/24/18 23:39 138/65 12/24/18 21:25 86 18 Nasal Cannula 2.0 28 12/24/18 21:25 97 Nasal Cannula 2.0 28 12/24/18 21:25 Nasal Cannula 2.0 28 12/24/18 21:00 Nasal Cannula 2.0 12/24/18 20:00 97.7 87 20 135/64 (87) 100 12/24/18 20:00 92 12/24/18 17:04 147/75 12/24/18 17:03 147/75 12/24/18 16:00 98 12/24/18 16:00 98.2 96 18 147/75 (99) 95 12/24/18 12:06 146/79 12/24/18 12:00 98.2 95 18 153/73 (99) 98 12/24/18 12:00 95 Intake and Output 12/24/18 12/25/18 19:00 07:00 Intake Total 605 ml 660 ml Output Total 750 ml 1000 ml Balance -145 ml -340 ml Tube Feeding 605 ml 660 ml Output Urine Total 750 ml 1000 ml # Bowel Movements 2 Laboratory Tests 12/25/18 06:05: White Blood Count 3.1L, Red Blood Count 2.88L, Hemoglobin 8.8L, Hematocrit 27.8L , Mean Corpuscular Volume 96, Mean Corpuscular Hemoglobin 30.4, Mean Corpuscular Hemoglobin Concent 31.6L, Red Cell Distribution Width 15.9H, Platelet Count 78L, Mean Platelet Volume 7.5, Neutrophils (%) (Auto) , Lymphocytes (%) (Auto) , Monocytes (%) (Auto) , Eosinophils (%) (Auto) , Basophils (%) (Auto) , Differential Total Cells Counted 100, Neutrophils % ( Manual) 71, Lymphocytes % (Manual) 18L, Monocytes % (Manual) 6, Eosinophils % ( Manual) 5H, Basophils % (Manual) 0, Band Neutrophils 0, Platelet Estimate DecreasedL, Platelet Morphology Normal, Hypochromasia 1+, Anisocytosis 1+, Sodium Level 142, Potassium Level 3.9, Chloride Level 107, Carbon Dioxide Level 30, Anion Gap 5, Blood Urea Nitrogen 22H, Creatinine 0.8, Estimat Glomerular Filtration Rate , Glucose Level 171H, Calcium Level 9.4, Total Bilirubin 0.5, Aspartate Amino Transf (AST/SGOT) 35, Alanine Aminotransferase (ALT/SGPT) 12, Alkaline Phosphatase 77, Total Protein 6.8, Albumin 2.3L, Globulin 4.5, Albumin/ Globulin Ratio 0.5L Height (Feet): 5 Height (Inches): 2.00 Weight (Pounds): 115 General Appearance: alert EENT: normal ENT inspection Neck: supple Cardiovascular: normal rate Respiratory/Chest: decreased breath sounds Abdomen: normal bowel sounds, non tender, soft Extremities: non-tender Edwardo Argueta MD Dec 25, 2018 11:02
--- NOTE | 2018-12-25 11:48 | Infectious Diseases Prog Note ---
Assessment/Plan Assessment/Plan A; Sepsis UTI with E. coli Left hydronephrosis Subacute CVA Dementia Nephrolithiasis Pancytopenia DM type 2 History of DVT s/p IVC filter P; Observe off antibiotic Subjective ROS Limited/Unobtainable: Yes Allergies: Coded Allergies: No Known Allergies (Unverified , 12/14/18) Objective Vital Signs Last 24 Hour Vital Signs Date Time Temp Pulse Resp B/P (MAP) Pulse Ox O2 Delivery O2 Flow Rate FiO2 12/25/18 09:00 Nasal Cannula 2.0 12/25/18 08:10 Nasal Cannula 2.0 28 12/25/18 08:10 98 Nasal Cannula 2.0 28 12/25/18 08:10 91 18 Nasal Cannula 2.0 28 12/25/18 08:00 98.5 98 20 154/78 (103) 99 12/25/18 08:00 91 12/25/18 06:20 145/80 12/25/18 04:20 98.0 88 20 147/72 (97) 100 12/25/18 04:20 96 12/25/18 00:00 97.9 88 20 138/65 (89) 100 12/25/18 00:00 86 12/24/18 23:39 138/65 12/24/18 21:25 86 18 Nasal Cannula 2.0 28 12/24/18 21:25 97 Nasal Cannula 2.0 28 12/24/18 21:25 Nasal Cannula 2.0 28 12/24/18 21:00 Nasal Cannula 2.0 12/24/18 20:00 97.7 87 20 135/64 (87) 100 12/24/18 20:00 92 12/24/18 17:04 147/75 12/24/18 17:03 147/75 12/24/18 16:00 98 12/24/18 16:00 98.2 96 18 147/75 (99) 95 12/24/18 12:06 146/79 12/24/18 12:00 98.2 95 18 153/73 (99) 98 12/24/18 12:00 95 Height (Feet): 5 Height (Inches): 2.00 Weight (Pounds): 115 General Appearance: no acute distress HEENT: mucous membranes moist Respiratory/Chest: lungs clear Cardiovascular: normal rate Abdomen: soft, non tender Extremities: no edema Neurologic/Psychiatric: aphasia Laboratory Tests Test 12/25/18 06:05 White Blood Count 3.1 K/UL (4.8-10.8) L Red Blood Count 2.88 M/UL (4.20-5.40) L Hemoglobin 8.8 G/DL (12.0-16.0) L Hematocrit 27.8 % (37.0-47.0) L Mean Corpuscular Volume 96 FL (80-99) Mean Corpuscular Hemoglobin 30.4 PG (27.0-31.0) Mean Corpuscular Hemoglobin Concent 31.6 G/DL (32.0-36.0) L Red Cell Distribution Width 15.9 % (11.6-14.8) H Platelet Count 78 K/UL (150-450) L Mean Platelet Volume 7.5 FL (6.5-10.1) Neutrophils (%) (Auto) % (45.0-75.0) Lymphocytes (%) (Auto) % (20.0-45.0) Monocytes (%) (Auto) % (1.0-10.0) Eosinophils (%) (Auto) % (0.0-3.0) Basophils (%) (Auto) % (0.0-2.0) Differential Total Cells Counted 100 Neutrophils % (Manual) 71 % (45-75) Lymphocytes % (Manual) 18 % (20-45) L Monocytes % (Manual) 6 % (1-10) Eosinophils % (Manual) 5 % (0-3) H Basophils % (Manual) 0 % (0-2) Band Neutrophils 0 % (0-8) Platelet Estimate Decreased L Platelet Morphology Normal Hypochromasia 1+ Anisocytosis 1+ Sodium Level 142 MMOL/L (136-145) Potassium Level 3.9 MMOL/L (3.5-5.1) Chloride Level 107 MMOL/L (98-107) Carbon Dioxide Level 30 MMOL/L (21-32) Anion Gap 5 mmol/L (5-15) Blood Urea Nitrogen 22 mg/dL (7-18) H Creatinine 0.8 MG/DL (0.55-1.30) Estimat Glomerular Filtration Rate mL/min (>60) Glucose Level 171 MG/DL (74-106) H Calcium Level 9.4 MG/DL (8.5-10.1) Total Bilirubin 0.5 MG/DL (0.2-1.0) Aspartate Amino Transf (AST/SGOT) 35 U/L (15-37) Alanine Aminotransferase (ALT/SGPT) 12 U/L (12-78) Alkaline Phosphatase 77 U/L (46-116) Total Protein 6.8 G/DL (6.4-8.2) Albumin 2.3 G/DL (3.4-5.0) L Globulin 4.5 g/dL Albumin/Globulin Ratio 0.5 (1.0-2.7) L Current Medications Medications (Trade) Dose Ordered Sig/Laure Route PRN Reason Start Time Stop Time Status Last Admin Dose Admin Acetaminophen (Tylenol) 650 mg Q4H PRN GT Mild Pain/Temp > 100.5 12/19/18 11:00 01/13/19 10:59 Aspirin (ASA) 81 mg DAILY NG 12/19/18 15:30 01/18/19 15:29 12/25/18 08:32 Atorvastatin Calcium (Lipitor) 20 mg BEDTIME GT 12/19/18 21:00 01/17/19 20:59 12/24/18 20:41 Clopidogrel Bisulfate (Plavix) 75 mg DAILY GT 12/20/18 09:00 01/14/19 08:59 12/25/18 08:32 Dextrose (Dextrose 50%) 25 ml Q30M PRN IV Hypoglycemia 12/19/18 11:15 01/13/19 17:14 Dextrose (Dextrose 50%) 50 ml Q30M PRN IV Hypoglycemia 12/19/18 11:15 01/13/19 17:14 Hydralazine HCl (Apresoline) 10 mg Q6HR GT 12/19/18 12:00 01/17/19 17:59 12/25/18 06:20 Hydralazine HCl (Apresoline) 25 mg Q4H PRN GT bp over 160 syst 12/19/18 11:00 01/17/19 10:59 Insulin Aspart (NovoLOG) EVERY 6 HOURS SUBQ 12/19/18 12:00 01/13/19 20:59 12/25/18 06:28 Lansoprazole (Prevacid) 30 mg BID GT 12/19/18 18:00 01/15/19 17:59 12/25/18 08:32 Nitroglycerin (Ntg) 1 patch Q24H TDERMAL 12/19/18 17:00 01/13/19 16:59 12/24/18 17:03 Ondansetron HCl (Zofran ODT) 4 mg Q4HR ORAL 12/19/18 13:00 01/13/19 20:59 12/25/18 08:32 Potassium Chloride (K-Dur) 20 meq TWICE A DAY GT 12/22/18 18:00 01/21/19 17:59 12/25/18 08:32 Shimon Card MD Dec 25, 2018 11:48
--- NOTE | 2018-12-25 12:03 | General Progress Note ---
Assessment/Plan Problem List: (1) Feeding by G-tube ICD Codes: Z93.1 - Gastrostomy status SNOMED: 735302539, 763436624, 817315610 (2) Altered mental status ICD Codes: R41.82 - Altered mental status, unspecified SNOMED: 791454225 (3) Thrombocytopenia ICD Codes: D69.6 - Thrombocytopenia, unspecified SNOMED: 698514189 (4) Sepsis ICD Codes: A41.9 - Sepsis, unspecified organism SNOMED: 60730945 Assessment/Plan continue Novolog sliding scale every 6 hours no need for basal insulin Subjective ROS Limited/Unobtainable: Yes Allergies: Coded Allergies: No Known Allergies (Unverified , 12/14/18) Subjective lying in bed calm sitting at bedside TF is on and tolerated Item Value Date Time Bedside Blood Glucose 183 mg/dl H 12/25/18 0628 Bedside Blood Glucose 157 mg/dl H 12/25/18 0000 Bedside Blood Glucose 148 mg/dl H 12/24/18 1717 Objective Last 24 Hour Vital Signs Date Time Temp Pulse Resp B/P (MAP) Pulse Ox O2 Delivery O2 Flow Rate FiO2 12/25/18 09:00 Nasal Cannula 2.0 12/25/18 08:10 Nasal Cannula 2.0 28 12/25/18 08:10 98 Nasal Cannula 2.0 28 12/25/18 08:10 91 18 Nasal Cannula 2.0 28 12/25/18 08:00 98.5 98 20 154/78 (103) 99 12/25/18 08:00 91 12/25/18 06:20 145/80 12/25/18 04:20 98.0 88 20 147/72 (97) 100 12/25/18 04:20 96 12/25/18 00:00 97.9 88 20 138/65 (89) 100 12/25/18 00:00 86 12/24/18 23:39 138/65 12/24/18 21:25 86 18 Nasal Cannula 2.0 28 12/24/18 21:25 97 Nasal Cannula 2.0 28 12/24/18 21:25 Nasal Cannula 2.0 28 12/24/18 21:00 Nasal Cannula 2.0 12/24/18 20:00 97.7 87 20 135/64 (87) 100 12/24/18 20:00 92 12/24/18 17:04 147/75 12/24/18 17:03 147/75 12/24/18 16:00 98 12/24/18 16:00 98.2 96 18 147/75 (99) 95 12/24/18 12:06 146/79 Intake and Output 12/24/18 12/25/18 19:00 07:00 Intake Total 605 ml 660 ml Output Total 750 ml 1000 ml Balance -145 ml -340 ml Tube Feeding 605 ml 660 ml Output Urine Total 750 ml 1000 ml # Bowel Movements 2 Laboratory Tests 12/25/18 06:05: White Blood Count 3.1L, Red Blood Count 2.88L, Hemoglobin 8.8L, Hematocrit 27.8L , Mean Corpuscular Volume 96, Mean Corpuscular Hemoglobin 30.4, Mean Corpuscular Hemoglobin Concent 31.6L, Red Cell Distribution Width 15.9H, Platelet Count 78L, Mean Platelet Volume 7.5, Neutrophils (%) (Auto) , Lymphocytes (%) (Auto) , Monocytes (%) (Auto) , Eosinophils (%) (Auto) , Basophils (%) (Auto) , Differential Total Cells Counted 100, Neutrophils % ( Manual) 71, Lymphocytes % (Manual) 18L, Monocytes % (Manual) 6, Eosinophils % ( Manual) 5H, Basophils % (Manual) 0, Band Neutrophils 0, Platelet Estimate DecreasedL, Platelet Morphology Normal, Hypochromasia 1+, Anisocytosis 1+, Sodium Level 142, Potassium Level 3.9, Chloride Level 107, Carbon Dioxide Level 30, Anion Gap 5, Blood Urea Nitrogen 22H, Creatinine 0.8, Estimat Glomerular Filtration Rate , Glucose Level 171H, Calcium Level 9.4, Total Bilirubin 0.5, Aspartate Amino Transf (AST/SGOT) 35, Alanine Aminotransferase (ALT/SGPT) 12, Alkaline Phosphatase 77, Total Protein 6.8, Albumin 2.3L, Globulin 4.5, Albumin/ Globulin Ratio 0.5L Height (Feet): 5 Height (Inches): 2.00 Weight (Pounds): 115 General Appearance: no apparent distress Neck: normal alignment Cardiovascular: normal rate Respiratory/Chest: lungs clear Abdomen: normal bowel sounds Objective Current Medications Medications (Trade) Dose Ordered Sig/Laure Route PRN Reason Start Time Stop Time Status Last Admin Dose Admin Acetaminophen (Tylenol) 650 mg Q4H PRN GT Mild Pain/Temp > 100.5 12/19/18 11:00 01/13/19 10:59 Aspirin (ASA) 81 mg DAILY NG 12/19/18 15:30 01/18/19 15:29 12/25/18 08:32 Atorvastatin Calcium (Lipitor) 20 mg BEDTIME GT 12/19/18 21:00 01/17/19 20:59 12/24/18 20:41 Clopidogrel Bisulfate (Plavix) 75 mg DAILY GT 12/20/18 09:00 01/14/19 08:59 12/25/18 08:32 Dextrose (Dextrose 50%) 25 ml Q30M PRN IV Hypoglycemia 12/19/18 11:15 01/13/19 17:14 Dextrose (Dextrose 50%) 50 ml Q30M PRN IV Hypoglycemia 12/19/18 11:15 01/13/19 17:14 Hydralazine HCl (Apresoline) 10 mg Q6HR GT 12/19/18 12:00 01/17/19 17:59 12/25/18 06:20 Hydralazine HCl (Apresoline) 25 mg Q4H PRN GT bp over 160 syst 12/19/18 11:00 01/17/19 10:59 Insulin Aspart (NovoLOG) EVERY 6 HOURS SUBQ 12/19/18 12:00 01/13/19 20:59 12/25/18 06:28 Lansoprazole (Prevacid) 30 mg BID GT 12/19/18 18:00 01/15/19 17:59 12/25/18 08:32 Nitroglycerin (Ntg) 1 patch Q24H TDERMAL 12/19/18 17:00 01/13/19 16:59 12/24/18 17:03 Ondansetron HCl (Zofran ODT) 4 mg Q4HR ORAL 12/19/18 13:00 01/13/19 20:59 12/25/18 08:32 Potassium Chloride (K-Dur) 20 meq TWICE A DAY GT 12/22/18 18:00 01/21/19 17:59 12/25/18 08:32 Enrique Tafoya MD Dec 25, 2018 12:03
[2018-12-25] MEDS: Nitroglycerin Patch 0.4mg TDERMAL SCH (17:04)
--- NOTE | 2018-12-25 18:38 | Nephrology Progress Note ---
Assessment/Plan Problem List: (1) Diabetic nephropathy (2) Hypokalemia (3) Anemia (4) UTI (urinary tract infection) Assessment Electrolyte imbalance UTI Anemia Low K Diabetic Nephropathy, HypoAlbuminemia CAD Plan No labs today DC Lopressor dose- On hydralazine K Phos , KCl , MgSo4 IV as needed antibiotics avoid nephrotoxics anemia mac per orders Subjective ROS Limited/Unobtainable: No Constitutional: Reports: malaise, weakness Objective Objective Last 24 Hour Vital Signs Date Time Temp Pulse Resp B/P (MAP) Pulse Ox O2 Delivery O2 Flow Rate FiO2 12/25/18 17:04 140/77 12/25/18 17:03 140/77 12/25/18 16:00 98.7 94 20 140/77 (98) 100 12/25/18 16:00 80 12/25/18 12:08 138/75 12/25/18 12:00 91 12/25/18 12:00 98.8 99 20 138/75 (96) 99 12/25/18 09:00 Nasal Cannula 2.0 12/25/18 08:10 Nasal Cannula 2.0 28 12/25/18 08:10 98 Nasal Cannula 2.0 28 12/25/18 08:10 91 18 Nasal Cannula 2.0 28 12/25/18 08:00 98.5 98 20 154/78 (103) 99 12/25/18 08:00 91 12/25/18 06:20 145/80 12/25/18 04:20 98.0 88 20 147/72 (97) 100 12/25/18 04:20 96 12/25/18 00:00 97.9 88 20 138/65 (89) 100 12/25/18 00:00 86 12/24/18 23:39 138/65 12/24/18 21:25 86 18 Nasal Cannula 2.0 28 12/24/18 21:25 97 Nasal Cannula 2.0 28 12/24/18 21:25 Nasal Cannula 2.0 28 12/24/18 21:00 Nasal Cannula 2.0 12/24/18 20:00 97.7 87 20 135/64 (87) 100 12/24/18 20:00 92 Intake and Output 12/24/18 12/25/18 19:00 07:00 Intake Total 605 ml 660 ml Output Total 750 ml 1000 ml Balance -145 ml -340 ml Tube Feeding 605 ml 660 ml Output Urine Total 750 ml 1000 ml # Bowel Movements 2 Laboratory Tests 12/25/18 06:05: White Blood Count 3.1L, Red Blood Count 2.88L, Hemoglobin 8.8L, Hematocrit 27.8L , Mean Corpuscular Volume 96, Mean Corpuscular Hemoglobin 30.4, Mean Corpuscular Hemoglobin Concent 31.6L, Red Cell Distribution Width 15.9H, Platelet Count 78L, Mean Platelet Volume 7.5, Neutrophils (%) (Auto) , Lymphocytes (%) (Auto) , Monocytes (%) (Auto) , Eosinophils (%) (Auto) , Basophils (%) (Auto) , Differential Total Cells Counted 100, Neutrophils % ( Manual) 71, Lymphocytes % (Manual) 18L, Monocytes % (Manual) 6, Eosinophils % ( Manual) 5H, Basophils % (Manual) 0, Band Neutrophils 0, Platelet Estimate DecreasedL, Platelet Morphology Normal, Hypochromasia 1+, Anisocytosis 1+, Sodium Level 142, Potassium Level 3.9, Chloride Level 107, Carbon Dioxide Level 30, Anion Gap 5, Blood Urea Nitrogen 22H, Creatinine 0.8, Estimat Glomerular Filtration Rate , Glucose Level 171H, Calcium Level 9.4, Total Bilirubin 0.5, Aspartate Amino Transf (AST/SGOT) 35, Alanine Aminotransferase (ALT/SGPT) 12, Alkaline Phosphatase 77, Total Protein 6.8, Albumin 2.3L, Globulin 4.5, Albumin/ Globulin Ratio 0.5L Height (Feet): 5 Height (Inches): 2.00 Weight (Pounds): 115 General Appearance: no apparent distress Cardiovascular: tachycardia Respiratory/Chest: decreased breath sounds Abdomen: distended Objective no change Parvez Bergman MD Dec 25, 2018 18:38
--- NOTE | 2018-12-25 19:31 | NUR ---
HAND-OFF: Report given to angel flores.
[2018-12-25] MEDS: Atorvastatin 20mg tab GT SCH (21:15)
--- NOTE | 2018-12-25 21:37 | General Progress Note ---
Assessment/Plan Problem List: (1) Dementia with behavioral disturbance ICD Codes: F03.91 - Unspecified dementia with behavioral disturbance SNOMED: 2216802044097 (2) Fever ICD Codes: R50.9 - Fever, unspecified SNOMED: 463478194 (3) Dehydration ICD Codes: E86.0 - Dehydration SNOMED: 03751421 (4) Anemia ICD Codes: D64.9 - Anemia, unspecified SNOMED: 233986664 (5) Thrombocytopenia ICD Codes: D69.6 - Thrombocytopenia, unspecified SNOMED: 168646982 (6) CVA (cerebral vascular accident) ICD Codes: I63.9 - Cerebral infarction, unspecified SNOMED: 512165158 Qualifiers: Qualified Codes: I63.9 - Cerebral infarction, unspecified (7) Elevated troponin I level ICD Codes: R74.8 - Abnormal levels of other serum enzymes SNOMED: 611287482 (8) Diabetic nephropathy 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 SNOMED: 951529660 (9) Feeding by G-tube ICD Codes: Z93.1 - Gastrostomy status SNOMED: 917735479, 994919352, 781926987 Status: unchanged Assessment/Plan h/h is stable no bleeding afebrile sepsis improving reviewd chart and labs pna improving subacute cva persistent pancytopenia Subjective ROS Limited/Unobtainable: Yes Allergies: Coded Allergies: No Known Allergies (Unverified , 12/14/18) Objective Last 24 Hour Vital Signs Date Time Temp Pulse Resp B/P (MAP) Pulse Ox O2 Delivery O2 Flow Rate FiO2 12/25/18 17:04 140/77 12/25/18 17:03 140/77 12/25/18 16:00 98.7 94 20 140/77 (98) 100 12/25/18 16:00 80 12/25/18 12:08 138/75 12/25/18 12:00 91 12/25/18 12:00 98.8 99 20 138/75 (96) 99 12/25/18 09:00 Nasal Cannula 2.0 12/25/18 08:10 Nasal Cannula 2.0 28 12/25/18 08:10 98 Nasal Cannula 2.0 28 12/25/18 08:10 91 18 Nasal Cannula 2.0 28 12/25/18 08:00 98.5 98 20 154/78 (103) 99 12/25/18 08:00 91 12/25/18 06:20 145/80 12/25/18 04:20 98.0 88 20 147/72 (97) 100 12/25/18 04:20 96 12/25/18 00:00 97.9 88 20 138/65 (89) 100 12/25/18 00:00 86 12/24/18 23:39 138/65 Intake and Output 12/24/18 12/25/18 19:00 07:00 Intake Total 605 ml 660 ml Output Total 750 ml 1000 ml Balance -145 ml -340 ml Tube Feeding 605 ml 660 ml Output Urine Total 750 ml 1000 ml # Bowel Movements 2 Laboratory Tests 12/25/18 06:05: White Blood Count 3.1L, Red Blood Count 2.88L, Hemoglobin 8.8L, Hematocrit 27.8L , Mean Corpuscular Volume 96, Mean Corpuscular Hemoglobin 30.4, Mean Corpuscular Hemoglobin Concent 31.6L, Red Cell Distribution Width 15.9H, Platelet Count 78L, Mean Platelet Volume 7.5, Neutrophils (%) (Auto) , Lymphocytes (%) (Auto) , Monocytes (%) (Auto) , Eosinophils (%) (Auto) , Basophils (%) (Auto) , Differential Total Cells Counted 100, Neutrophils % ( Manual) 71, Lymphocytes % (Manual) 18L, Monocytes % (Manual) 6, Eosinophils % ( Manual) 5H, Basophils % (Manual) 0, Band Neutrophils 0, Platelet Estimate DecreasedL, Platelet Morphology Normal, Hypochromasia 1+, Anisocytosis 1+, Sodium Level 142, Potassium Level 3.9, Chloride Level 107, Carbon Dioxide Level 30, Anion Gap 5, Blood Urea Nitrogen 22H, Creatinine 0.8, Estimat Glomerular Filtration Rate , Glucose Level 171H, Calcium Level 9.4, Total Bilirubin 0.5, Aspartate Amino Transf (AST/SGOT) 35, Alanine Aminotransferase (ALT/SGPT) 12, Alkaline Phosphatase 77, Total Protein 6.8, Albumin 2.3L, Globulin 4.5, Albumin/ Globulin Ratio 0.5L Height (Feet): 5 Height (Inches): 2.00 Weight (Pounds): 115 General Appearance: confused Cardiovascular: normal rate Respiratory/Chest: lungs clear Abdomen: soft Yi Asencio MD Dec 25, 2018 21:37
--- NOTE | 2018-12-25 22:47 | General Progress Note ---
Assessment/Plan Assessment/Plan Assessment/Plan: # Decreased white blood cell count, Leukopenia --> if the total ANC is less than 2000, consider neupogen --> continue antibiotics with ID service, appreciate recs --> medications have been reviewed --> hepatitis and hiv negative Wbc trend: 4-->2.7-->2.2->2.8-->2.6-->2.5 # Thrombocytopenia - potential causes multifactorial, evaluate liver and viral etiologies to begin, also could be related to underlying medications patient has received. --> Hep panel and HIV negative --> US abd to evaluate for cirrhosis and hsm reviewed --> Peripheral smear ordered to evaluate for blasts /schistocytes --> abx and other meds have been reviewed --> ok for ppx if plt >50k w/ either heparin or lovenox --> Transfuse if Plt < 20k and fever, or if Plt < 10k without fever --> PLT trend: 51-->58-->71-->65-->71-->75 # Pancytopenia, likely related to septicemia, appears new baseline 50-70k, several causes possible including viral, medication or intrabone marrow related. --> Cont to monitor plt count for improvement --> US abd: Mild left hydronephrosis. Possible left renal calyceal calculi. Negative for gallstones or dilated ducts Debris noted within the bladder --> Hep panel and HIV are both negative --> given extremely poor condition do not recommend a bone marrow biopsy, have discussed with family 08/01 with --> will rediscuss once sepsis resolves --> transfuse if plt <20k # Anemia of chronic disease. Multifactorial. Since admission Hgb has consistently remained between 8-9. --> Cont to monitor for stability --> Hgb goal above 7. Transfuse prn. --> IV iron completed prior admission and feritin is elevated # DVT of the left leg s/p IVC filter in 07/2018-- superficial femoral vein which is a deep vein, new onset, has not had these symptoms before. Lower hgb and plts --> given decreased h/h, low thrombocytopenia, do not recommend anticoag --> appreciate Dr. Parekh and Mariam arias from prior admission --> smear reviewed # Dehydration. IVF has been administered --> improved # DM OOC --> A1C goal <7 --> Cont on insulin # Bacteremia/prior UTI. --> ID is following. Appreciate recs. --> Pt on IV abx. --> Cultures surveillance as per id # PEG placement 08/04. Greatly appreciate consultation! Subjective Allergies: Coded Allergies: No Known Allergies (Unverified , 12/14/18) Subjective 12/16: seen by bedside, awake, comfortable, hgb 8, plt 51 12/18: awake, non verbal on NC, no events, pending labs today 12/19: Pt is resting in bed, no events reported, plt 71 12/20: seen by bedside, awake, comfortable, no events 12/21: Awake, comfortable, no acute distress reported. 12/22: resting in bed, no events reported. 12/23: Pt is seen resting in bed, no acute distress 12/25: seen by bedside, awake, comfortable, no events. Objective Last 24 Hour Vital Signs Date Time Temp Pulse Resp B/P (MAP) Pulse Ox O2 Delivery O2 Flow Rate FiO2 12/25/18 21:42 Nasal Cannula 2.0 12/25/18 21:35 Nasal Cannula 2.0 28 12/25/18 21:35 87 18 Nasal Cannula 2.0 28 12/25/18 21:35 100 Nasal Cannula 2.0 28 12/25/18 20:00 98.0 100 20 142/71 (94) 95 12/25/18 17:04 140/77 12/25/18 17:03 140/77 12/25/18 16:00 98.7 94 20 140/77 (98) 100 12/25/18 16:00 80 12/25/18 12:08 138/75 12/25/18 12:00 91 12/25/18 12:00 98.8 99 20 138/75 (96) 99 12/25/18 09:00 Nasal Cannula 2.0 12/25/18 08:10 Nasal Cannula 2.0 28 12/25/18 08:10 98 Nasal Cannula 2.0 28 12/25/18 08:10 91 18 Nasal Cannula 2.0 28 12/25/18 08:00 98.5 98 20 154/78 (103) 99 12/25/18 08:00 91 12/25/18 06:20 145/80 12/25/18 04:20 98.0 88 20 147/72 (97) 100 12/25/18 04:20 96 12/25/18 00:00 97.9 88 20 138/65 (89) 100 12/25/18 00:00 86 12/24/18 23:39 138/65 Intake and Output 12/24/18 12/25/18 19:00 07:00 Intake Total 605 ml 660 ml Output Total 750 ml 1000 ml Balance -145 ml -340 ml Tube Feeding 605 ml 660 ml Output Urine Total 750 ml 1000 ml # Bowel Movements 2 Laboratory Tests 12/25/18 06:05: White Blood Count 3.1L, Red Blood Count 2.88L, Hemoglobin 8.8L, Hematocrit 27.8L , Mean Corpuscular Volume 96, Mean Corpuscular Hemoglobin 30.4, Mean Corpuscular Hemoglobin Concent 31.6L, Red Cell Distribution Width 15.9H, Platelet Count 78L, Mean Platelet Volume 7.5, Neutrophils (%) (Auto) , Lymphocytes (%) (Auto) , Monocytes (%) (Auto) , Eosinophils (%) (Auto) , Basophils (%) (Auto) , Differential Total Cells Counted 100, Neutrophils % ( Manual) 71, Lymphocytes % (Manual) 18L, Monocytes % (Manual) 6, Eosinophils % ( Manual) 5H, Basophils % (Manual) 0, Band Neutrophils 0, Platelet Estimate DecreasedL, Platelet Morphology Normal, Hypochromasia 1+, Anisocytosis 1+, Sodium Level 142, Potassium Level 3.9, Chloride Level 107, Carbon Dioxide Level 30, Anion Gap 5, Blood Urea Nitrogen 22H, Creatinine 0.8, Estimat Glomerular Filtration Rate , Glucose Level 171H, Calcium Level 9.4, Total Bilirubin 0.5, Aspartate Amino Transf (AST/SGOT) 35, Alanine Aminotransferase (ALT/SGPT) 12, Alkaline Phosphatase 77, Total Protein 6.8, Albumin 2.3L, Globulin 4.5, Albumin/ Globulin Ratio 0.5L Height (Feet): 5 Height (Inches): 2.00 Weight (Pounds): 115 Objective PHYSICAL EXAMINATION: VITAL SIGNS: Reviewed. Saturating 100% on 2 L. NC++ GENERAL: She is an elderly demented female, in no acute distress. Nonverbal. HEENT: Normocephalic and atraumatic. Oropharynx is clear. Moist mucous membranes. NECK: Supple without lymphadenopathy. CHEST: Clear, but rales at the bases. HEART: Regular rate and rhythm. ABDOMEN: Soft, nontender, and nondistended. ++ peg EXTREMITIES: No cyanosis, clubbing or edema. Dewayne Gayle MD Dec 25, 2018 22:47
[2018-12-26] MEDS: NovoLOG Insulin Flexpen SUBQ SCH ×4 (00:26→18:19)
[2018-12-26 03:32] VITALS: BP 145/73
[2018-12-26] MEDS: HydrALAZINE 10mg Tab GT SCH ×4 (05:39→18:15)
--- NOTE | 2018-12-26 06:20 | General Progress Note ---
Assessment/Plan Problem List: (1) Feeding by G-tube ICD Codes: Z93.1 - Gastrostomy status SNOMED: 336862285, 014683739, 374839386 (2) Altered mental status ICD Codes: R41.82 - Altered mental status, unspecified SNOMED: 533967583 (3) Thrombocytopenia ICD Codes: D69.6 - Thrombocytopenia, unspecified SNOMED: 151100849 (4) Sepsis ICD Codes: A41.9 - Sepsis, unspecified organism SNOMED: 28524530 Assessment/Plan continue Novolog sliding scale every 6 hours no need for basal insulin Subjective ROS Limited/Unobtainable: Yes Allergies: Coded Allergies: No Known Allergies (Unverified , 12/14/18) Subjective events noted Item Value Date Time Bedside Blood Glucose 171 mg/dl H 12/26/18 0607 Bedside Blood Glucose 159 mg/dl H 12/26/18 0030 Bedside Blood Glucose 155 mg/dl H 12/25/18 1800 Bedside Blood Glucose 152 mg/dl H 12/25/18 1206 Bedside Blood Glucose 183 mg/dl H 12/25/18 0628 Bedside Blood Glucose 157 mg/dl H 12/25/18 0000 Objective Last 24 Hour Vital Signs Date Time Temp Pulse Resp B/P (MAP) Pulse Ox O2 Delivery O2 Flow Rate FiO2 12/26/18 05:39 145/73 12/26/18 04:17 75 12/26/18 03:32 98.0 86 20 145/73 (97) 99 12/26/18 00:00 78 12/26/18 00:00 138/70 12/25/18 23:58 98.4 79 20 138/70 (92) 99 12/25/18 21:42 Nasal Cannula 2.0 12/25/18 21:35 Nasal Cannula 2.0 28 12/25/18 21:35 87 18 Nasal Cannula 2.0 28 12/25/18 21:35 100 Nasal Cannula 2.0 28 12/25/18 20:00 98.0 100 20 142/71 (94) 95 12/25/18 20:00 78 12/25/18 17:04 140/77 12/25/18 17:03 140/77 12/25/18 16:00 98.7 94 20 140/77 (98) 100 12/25/18 16:00 80 12/25/18 12:08 138/75 12/25/18 12:00 91 12/25/18 12:00 98.8 99 20 138/75 (96) 99 12/25/18 09:00 Nasal Cannula 2.0 12/25/18 08:10 Nasal Cannula 2.0 28 12/25/18 08:10 98 Nasal Cannula 2.0 28 12/25/18 08:10 91 18 Nasal Cannula 2.0 28 12/25/18 08:00 98.5 98 20 154/78 (103) 99 12/25/18 08:00 91 12/25/18 06:20 145/80 Intake and Output 12/25/18 12/26/18 18:59 06:59 Intake Total 605 ml Output Total 550 ml Balance 55 ml Tube Feeding 605 ml Output Urine Total 550 ml # Bowel Movements 1 Height (Feet): 5 Height (Inches): 2.00 Weight (Pounds): 115 General Appearance: no apparent distress Neck: normal alignment Cardiovascular: normal rate Respiratory/Chest: lungs clear Abdomen: normal bowel sounds Pelvis: normal external exam Objective Current Medications Medications (Trade) Dose Ordered Sig/Laure Route PRN Reason Start Time Stop Time Status Last Admin Dose Admin Acetaminophen (Tylenol) 650 mg Q4H PRN GT Mild Pain/Temp > 100.5 12/19/18 11:00 01/13/19 10:59 Aspirin (ASA) 81 mg DAILY NG 12/19/18 15:30 01/18/19 15:29 12/25/18 08:32 Atorvastatin Calcium (Lipitor) 20 mg BEDTIME GT 12/19/18 21:00 01/17/19 20:59 12/25/18 21:15 Clopidogrel Bisulfate (Plavix) 75 mg DAILY GT 12/20/18 09:00 01/14/19 08:59 12/25/18 08:32 Dextrose (Dextrose 50%) 25 ml Q30M PRN IV Hypoglycemia 12/19/18 11:15 01/13/19 17:14 Dextrose (Dextrose 50%) 50 ml Q30M PRN IV Hypoglycemia 12/19/18 11:15 01/13/19 17:14 Hydralazine HCl (Apresoline) 10 mg Q6HR GT 12/19/18 12:00 01/17/19 17:59 12/26/18 05:39 Hydralazine HCl (Apresoline) 25 mg Q4H PRN GT bp over 160 syst 12/19/18 11:00 01/17/19 10:59 Insulin Aspart (NovoLOG) EVERY 6 HOURS SUBQ 12/19/18 12:00 01/13/19 20:59 12/26/18 06:06 Lansoprazole (Prevacid) 30 mg BID GT 12/19/18 18:00 01/15/19 17:59 12/25/18 17:04 Nitroglycerin (Ntg) 1 patch Q24H TDERMAL 12/19/18 17:00 01/13/19 16:59 12/25/18 17:04 Ondansetron HCl (Zofran ODT) 4 mg Q4HR ORAL 12/19/18 13:00 01/13/19 20:59 12/26/18 05:00 Potassium Chloride (K-Dur) 20 meq TWICE A DAY GT 12/22/18 18:00 01/21/19 17:59 12/25/18 17:04 Enrique Tafoya MD Dec 26, 2018 06:20
--- NOTE | 2018-12-26 07:00 | NUR ---
HAND-OFF: Report given to Isak DYKES. Endorsed plan of care.
--- NOTE | 2018-12-26 07:12 | NUR ---
NURSE NOTES: RECEIVED REPORT FROM NEREIDA DYKES.PT IS RESTING IN BED WITH NO APPARENT DISTRESS. IV SITE PATENT/INTACT WITH NO SIGN OF INFILTRATION. GT FEEDING ON CONTINUOUSLY. BED IN LOW LOCK POSITION WITH BED ALARM ON.CALL LIGHT WITHIN REACH. CONTINUE TO MONITOR.
[2018-12-26 08:00] VITALS: BP 148/66
[2018-12-26] MEDS: Aspirin Baby 81mg NG SCH (08:30)
--- NOTE | 2018-12-26 09:40 | NUR ---
RADIOLOGY: PCXR COMPLETED 0930 HRS. - NF
--- NOTE | 2018-12-26 10:08 | NUR ---
CASE MANAGEMENT:REVIEW 12/24/18 SI: SEPSIS. UTI 95.6 98 18 146/79 98% ON 2L/NC IS: K-DUR GT BID PLAVIX GT QD LIPITOR GT QHS CIPRO GT Q12 PREVACID GT BID NTG PATCH Q24 ASA GT QD ZOFRAN GT Q4HRS HYDRALAZINE GT Q6HRS : TELEMETRY STATUS DCP: PATIENT IS FROM [facility] 12/25/18 SI: SEPSIS. UTI 98.8 99 20 138/75 99% ON 2L/NC WBC-3.1 H/H-8.8/27.8 PLT-78 IS: K-DUR GT BID PLAVIX GT QD LIPITOR GT QHS CIPRO GT Q12 PREVACID GT BID NTG PATCH Q24 ASA GT QD ZOFRAN GT Q4HRS HYDRALAZINE GT Q6HRS : TELEMETRY STATUS DCP: PATIENT IS FROM [facility] 12/26/18 SI: SEPSIS. UTI 98.0 86 20 145/73 99% ON 2L/NC IS: K-DUR GT BID PLAVIX GT QD LIPITOR GT QHS PREVACID GT BID NTG PATCH Q24 ASA GT QD ZOFRAN GT Q4HRS HYDRALAZINE GT Q6HRS : TELEMETRY STATUS DCP: PATIENT IS FROM [facility]
--- NOTE | 2018-12-26 10:59 | GI Progress Note ---
Assessment/Plan Problems: (1) Altered mental status ICD Codes: R41.82 - Altered mental status, unspecified SNOMED: 882071023 (2) Anemia ICD Codes: D64.9 - Anemia, unspecified SNOMED: 118115755 (3) Thrombocytopenia ICD Codes: D69.6 - Thrombocytopenia, unspecified SNOMED: 460759228 (4) Malnutrition ICD Codes: E46 - Unspecified protein-calorie malnutrition SNOMED: 49906491 (5) Dehydration ICD Codes: E86.0 - Dehydration SNOMED: 47601615 Status: stable Status Narrative Discussed with Dr. Argueta Assessment/Plan Abdominal US reviewed, see full report. Equivocally slightly coarsened hepatic echogenicity, could indicate hepatocellular disease. GTF per RD, tolerating prn transfusions ppi reglan if needed abx per ID supportive care fu labs The patient was seen and examined at bedside and all new and available data was reviewed in the patients chart. I agree with the above findings, impression and plan. (Patient seen earlier today. Signature stamp does not reflect patient encounter time.). - Edwardo Argueta MD Subjective Subjective limited Objective Last 24 Hour Vital Signs Date Time Temp Pulse Resp B/P (MAP) Pulse Ox O2 Delivery O2 Flow Rate FiO2 12/26/18 07:19 80 18 Nasal Cannula 2.0 28 12/26/18 07:19 100 Nasal Cannula 2.0 28 12/26/18 07:19 Nasal Cannula 2.0 28 12/26/18 05:39 145/73 12/26/18 04:17 75 12/26/18 03:32 98.0 86 20 145/73 (97) 99 12/26/18 00:00 78 12/26/18 00:00 138/70 12/25/18 23:58 98.4 79 20 138/70 (92) 99 12/25/18 21:42 Nasal Cannula 2.0 12/25/18 21:35 Nasal Cannula 2.0 28 12/25/18 21:35 87 18 Nasal Cannula 2.0 28 12/25/18 21:35 100 Nasal Cannula 2.0 28 12/25/18 20:00 98.0 100 20 142/71 (94) 95 12/25/18 20:00 78 12/25/18 17:04 140/77 12/25/18 17:03 140/77 12/25/18 16:00 98.7 94 20 140/77 (98) 100 12/25/18 16:00 80 12/25/18 12:08 138/75 12/25/18 12:00 91 12/25/18 12:00 98.8 99 20 138/75 (96) 99 Intake and Output 12/25/18 12/26/18 19:00 07:00 Intake Total 605 ml Output Total 550 ml 200 ml Balance 55 ml -200 ml Tube Feeding 605 ml Output Urine Total 550 ml 200 ml # Bowel Movements 1 Height (Feet): 5 Height (Inches): 2.00 Weight (Pounds): 115 General Appearance: WD/WN, no apparent distress Cardiovascular: normal rate Respiratory/Chest: normal breath sounds, no respiratory distress Abdominal Exam: normal bowel sounds, non tender, soft, GT site - Clean dry and intact Extremities: non-tender Objective Patient had bowel movement today Aidee Powell NP Dec 26, 2018 10:59
--- NOTE | 2018-12-26 11:51 | Diagnostic Imaging Report ---
Indication: Shortness of breath, abnormal breath sounds Technique: One view of the chest Comparison: 12/14/2018 Findings: There is bilateral diffuse interstitial edema. There is also hazy parenchymal opacity bilaterally. This is increased from the prior study. Small bilateral pleural effusions, left greater than right, are again demonstrated, slightly increased. The heart is borderline enlarged Impression: Bilateral interstitial and hazy airspace edema, bilateral pleural effusions, slightly increased from prior study of 12/14/2018
[2018-12-26 12:00] VITALS: BP 158/81
--- NOTE | 2018-12-26 12:53 | Pulmonology Progress Note ---
Assessment/Plan 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 (4) DVT (deep venous thrombosis) (5) Anemia (6) Thrombocytopenia (7) S/P IVC filter (8) Dementia with behavioral disturbance (9) Feeding by G-tube Assessment/Plan Optimize pulmonary hygiene/mobilize as tolerated PRN O2 PRN HHN's Observe off Abx per ID Monitor HH, transfuse as needed F/U GI recs F/U recs --> conservative management of hydronephrosis TF's as tolerated DVT Px: IVCF FC Continue to discuss GOC Subjective ROS Limited/Unobtainable: Yes Allergies: Coded Allergies: No Known Allergies (Unverified , 12/14/18) Objective Last 24 Hour Vital Signs Date Time Temp Pulse Resp B/P (MAP) Pulse Ox O2 Delivery O2 Flow Rate FiO2 12/26/18 12:27 158/81 12/26/18 09:00 Nasal Cannula 2.0 12/26/18 08:00 98.7 86 18 148/66 (93) 99 12/26/18 08:00 90 12/26/18 07:19 80 18 Nasal Cannula 2.0 28 12/26/18 07:19 100 Nasal Cannula 2.0 28 12/26/18 07:19 Nasal Cannula 2.0 28 12/26/18 05:39 145/73 12/26/18 04:17 75 12/26/18 03:32 98.0 86 20 145/73 (97) 99 12/26/18 00:00 78 12/26/18 00:00 138/70 12/25/18 23:58 98.4 79 20 138/70 (92) 99 12/25/18 21:42 Nasal Cannula 2.0 12/25/18 21:35 Nasal Cannula 2.0 28 12/25/18 21:35 87 18 Nasal Cannula 2.0 28 12/25/18 21:35 100 Nasal Cannula 2.0 28 12/25/18 20:00 98.0 100 20 142/71 (94) 95 12/25/18 20:00 78 12/25/18 17:04 140/77 12/25/18 17:03 140/77 12/25/18 16:00 98.7 94 20 140/77 (98) 100 12/25/18 16:00 80 Intake and Output 12/25/18 12/26/18 19:00 07:00 Intake Total 605 ml Output Total 550 ml 200 ml Balance 55 ml -200 ml Tube Feeding 605 ml Output Urine Total 550 ml 200 ml # Bowel Movements 1 General Appearance: no acute distress HEENT: anicteric Respiratory/Chest: lungs clear Cardiovascular: normal rate Abdomen: soft, non tender Extremities: no edema Current Medications Medications (Trade) Dose Ordered Sig/Laure Route PRN Reason Start Time Stop Time Status Last Admin Dose Admin Acetaminophen (Tylenol) 650 mg Q4H PRN GT Mild Pain/Temp > 100.5 12/19/18 11:00 01/13/19 10:59 Aspirin (ASA) 81 mg DAILY NG 12/19/18 15:30 01/18/19 15:29 12/26/18 08:30 Atorvastatin Calcium (Lipitor) 20 mg BEDTIME GT 12/19/18 21:00 01/17/19 20:59 12/25/18 21:15 Clopidogrel Bisulfate (Plavix) 75 mg DAILY GT 12/20/18 09:00 01/14/19 08:59 12/26/18 08:31 Dextrose (Dextrose 50%) 25 ml Q30M PRN IV Hypoglycemia 12/19/18 11:15 01/13/19 17:14 Dextrose (Dextrose 50%) 50 ml Q30M PRN IV Hypoglycemia 12/19/18 11:15 01/13/19 17:14 Hydralazine HCl (Apresoline) 10 mg Q6HR GT 12/19/18 12:00 01/17/19 17:59 12/26/18 12:27 Hydralazine HCl (Apresoline) 25 mg Q4H PRN GT bp over 160 syst 12/19/18 11:00 01/17/19 10:59 Insulin Aspart (NovoLOG) EVERY 6 HOURS SUBQ 12/19/18 12:00 01/13/19 20:59 12/26/18 12:28 Lansoprazole (Prevacid) 30 mg BID GT 12/19/18 18:00 01/15/19 17:59 12/26/18 08:31 Nitroglycerin (Ntg) 1 patch Q24H TDERMAL 12/19/18 17:00 01/13/19 16:59 12/25/18 17:04 Ondansetron HCl (Zofran ODT) 4 mg Q4HR ORAL 12/19/18 13:00 01/13/19 20:59 12/26/18 12:25 Potassium Chloride (K-Dur) 20 meq TWICE A DAY GT 12/22/18 18:00 01/21/19 17:59 12/26/18 08:30 Lalo Greenfield MD Dec 26, 2018 12:53
--- NOTE | 2018-12-26 12:56 | Nephrology Progress Note ---
Assessment/Plan Problem List: (1) Diabetic nephropathy (2) Hypokalemia (3) Anemia (4) UTI (urinary tract infection) Assessment Electrolyte imbalance UTI Anemia Low K Diabetic Nephropathy, HypoAlbuminemia CAD Plan No labs today DC Lopressor dose- On hydralazine K Phos , KCl , MgSo4 IV as needed antibiotics avoid nephrotoxics anemia mac per orders Subjective ROS Limited/Unobtainable: No Constitutional: Reports: malaise, weakness Objective Objective Last 24 Hour Vital Signs Date Time Temp Pulse Resp B/P (MAP) Pulse Ox O2 Delivery O2 Flow Rate FiO2 12/26/18 12:27 158/81 12/26/18 09:00 Nasal Cannula 2.0 12/26/18 08:00 98.7 86 18 148/66 (93) 99 12/26/18 08:00 90 12/26/18 07:19 80 18 Nasal Cannula 2.0 28 12/26/18 07:19 100 Nasal Cannula 2.0 28 12/26/18 07:19 Nasal Cannula 2.0 28 12/26/18 05:39 145/73 12/26/18 04:17 75 12/26/18 03:32 98.0 86 20 145/73 (97) 99 12/26/18 00:00 78 12/26/18 00:00 138/70 12/25/18 23:58 98.4 79 20 138/70 (92) 99 12/25/18 21:42 Nasal Cannula 2.0 12/25/18 21:35 Nasal Cannula 2.0 28 12/25/18 21:35 87 18 Nasal Cannula 2.0 28 12/25/18 21:35 100 Nasal Cannula 2.0 28 12/25/18 20:00 98.0 100 20 142/71 (94) 95 12/25/18 20:00 78 12/25/18 17:04 140/77 12/25/18 17:03 140/77 12/25/18 16:00 98.7 94 20 140/77 (98) 100 12/25/18 16:00 80 Intake and Output 12/25/18 12/26/18 19:00 07:00 Intake Total 605 ml Output Total 550 ml 200 ml Balance 55 ml -200 ml Tube Feeding 605 ml Output Urine Total 550 ml 200 ml # Bowel Movements 1 Height (Feet): 5 Height (Inches): 2.00 Weight (Pounds): 115 General Appearance: no apparent distress Objective no change Parvez Bergman MD Dec 26, 2018 12:56
--- NOTE | 2018-12-26 15:01 | Infectious Diseases Prog Note ---
Assessment/Plan Assessment/Plan A; Sepsis UTI with E. coli Left hydronephrosis Subacute CVA Dementia Nephrolithiasis Pancytopenia DM type 2 History of DVT s/p IVC filter P; Observe off antibiotic Subjective ROS Limited/Unobtainable: Yes Allergies: Coded Allergies: No Known Allergies (Unverified , 12/14/18) Objective Vital Signs Last 24 Hour Vital Signs Date Time Temp Pulse Resp B/P (MAP) Pulse Ox O2 Delivery O2 Flow Rate FiO2 12/26/18 12:27 158/81 12/26/18 12:00 86 12/26/18 12:00 97.8 99 158/81 (106) 18 12/26/18 09:00 Nasal Cannula 2.0 12/26/18 08:00 98.7 86 18 148/66 (93) 99 12/26/18 08:00 90 12/26/18 07:19 80 18 Nasal Cannula 2.0 28 12/26/18 07:19 100 Nasal Cannula 2.0 28 12/26/18 07:19 Nasal Cannula 2.0 28 12/26/18 05:39 145/73 12/26/18 04:17 75 12/26/18 03:32 98.0 86 20 145/73 (97) 99 12/26/18 00:00 78 12/26/18 00:00 138/70 12/25/18 23:58 98.4 79 20 138/70 (92) 99 12/25/18 21:42 Nasal Cannula 2.0 12/25/18 21:35 Nasal Cannula 2.0 28 12/25/18 21:35 87 18 Nasal Cannula 2.0 28 12/25/18 21:35 100 Nasal Cannula 2.0 28 12/25/18 20:00 98.0 100 20 142/71 (94) 95 12/25/18 20:00 78 12/25/18 17:04 140/77 12/25/18 17:03 140/77 12/25/18 16:00 98.7 94 20 140/77 (98) 100 12/25/18 16:00 80 Height (Feet): 5 Height (Inches): 2.00 Weight (Pounds): 115 HEENT: mucous membranes moist Respiratory/Chest: lungs clear Cardiovascular: normal rate Abdomen: soft, non tender, other - GT feeding Extremities: no edema Neurologic/Psychiatric: aphasia Current Medications Medications (Trade) Dose Ordered Sig/Laure Route PRN Reason Start Time Stop Time Status Last Admin Dose Admin Acetaminophen (Tylenol) 650 mg Q4H PRN GT Mild Pain/Temp > 100.5 12/19/18 11:00 01/13/19 10:59 Aspirin (ASA) 81 mg DAILY NG 12/19/18 15:30 01/18/19 15:29 12/26/18 08:30 Atorvastatin Calcium (Lipitor) 20 mg BEDTIME GT 12/19/18 21:00 01/17/19 20:59 12/25/18 21:15 Clopidogrel Bisulfate (Plavix) 75 mg DAILY GT 12/20/18 09:00 01/14/19 08:59 12/26/18 08:31 Dextrose (Dextrose 50%) 25 ml Q30M PRN IV Hypoglycemia 12/19/18 11:15 01/13/19 17:14 Dextrose (Dextrose 50%) 50 ml Q30M PRN IV Hypoglycemia 12/19/18 11:15 01/13/19 17:14 Hydralazine HCl (Apresoline) 10 mg Q6HR GT 12/19/18 12:00 01/17/19 17:59 12/26/18 12:27 Hydralazine HCl (Apresoline) 25 mg Q4H PRN GT bp over 160 syst 12/19/18 11:00 01/17/19 10:59 Insulin Aspart (NovoLOG) EVERY 6 HOURS SUBQ 12/19/18 12:00 01/13/19 20:59 12/26/18 12:28 Lansoprazole (Prevacid) 30 mg BID GT 12/19/18 18:00 01/15/19 17:59 12/26/18 08:31 Nitroglycerin (Ntg) 1 patch Q24H TDERMAL 12/19/18 17:00 01/13/19 16:59 12/25/18 17:04 Ondansetron HCl (Zofran ODT) 4 mg Q4HR ORAL 12/19/18 13:00 01/13/19 20:59 12/26/18 12:25 Potassium Chloride (K-Dur) 20 meq TWICE A DAY GT 12/22/18 18:00 01/21/19 17:59 12/26/18 08:30 Shimon Card MD Dec 26, 2018 15:01
--- NOTE | 2018-12-26 15:12 | NUR ---
NURSE NOTES: WOUND CARE FOLLOW-UP NOTES:Resolving pressure injury sacrum.Affected Area without erythema or induration-Clever with dry peeling skin. Incontinence associated dermatitis perineum, cleft of buttocks resolving -less erythema noted. Skin is more rajinder pink without maceration,and without elevation in skin temp. Bilat heels are pink and blanchable without fluctuance. No new skin concerns noted. All wound prevention protocols and Wound Tx orders continued as ordered.
[2018-12-26 16:00] VITALS: BP 144/73
--- NOTE | 2018-12-26 16:29 | General Progress Note ---
Assessment/Plan Assessment/Plan Assessment/Plan: # Leukopenia, decreased white blood cell count, Leukopenia, us of the abd reviewed and consistent with potential cirrhosis/early changes --> if the total ANC is less than 2000, consider neupogen --> continue antibiotics with ID service, appreciate recs --> medications have been reviewed --> hepatitis and hiv negative Wbc trend: 4-->2.7-->2.2->2.8-->2.6-->2.5 # Pancytopenia, likely related to septicemia, appears new baseline 50-70k, several causes possible including viral, medication or intrabone marrow related. --> Cont to monitor plt count for improvement --> US abd: Mild left hydronephrosis. Possible left renal calyceal calculi. Negative for gallstones or dilated ducts Debris noted within the bladder --> Hep panel and HIV are both negative --> given extremely poor condition do not recommend a bone marrow biopsy, have discussed with family 08/01 with --> will rediscuss once sepsis resolves --> transfuse if plt <20k --> PLT trend: 51-->58-->71-->65-->71-->75 # Anemia of chronic disease. Multifactorial. Since admission Hgb has consistently remained between 8-9. --> Cont to monitor for stability --> Hgb goal above 7. Transfuse prn. --> IV iron completed prior admission and feritin is elevated # DVT of the left leg s/p IVC filter in 07/2018-- superficial femoral vein which is a deep vein, new onset, has not had these symptoms before. Lower hgb and plts --> given decreased h/h, low thrombocytopenia, do not recommend anticoag --> appreciate Dr. Parekh and Mariam arias from prior admission --> smear reviewed # Dehydration. IVF has been administered --> improved # DM OOC --> A1C goal <7 --> Cont on insulin # Bacteremia/prior UTI. --> ID is following. Appreciate recs. --> Pt on IV abx. --> Cultures surveillance as per id # PEG placement 08/04. Greatly appreciate consultation! Subjective Genitourinary: Denies: no symptoms, burning, discharge, frequency, flank pain, hematuria, incontinence, pain, urgency, other Neurologic/Psychiatric: Denies: no symptoms, anxiety, depressed, emotional problems, headache, numbness, paresthesia, pre-existing deficit, seizure, tingling, tremors, weakness, other Endocrine: Denies: no symptoms, excessive sweating, flushing, intolerance to cold, intolerance to heat, increased hunger, increased thirst, increased urine, unexplained weight gain, unexplained weight loss, other Allergies: Coded Allergies: No Known Allergies (Unverified , 12/14/18) Subjective 12/16: seen by bedside, awake, comfortable, hgb 8, plt 51 12/18: awake, non verbal on NC, no events, pending labs today 12/19: Pt is resting in bed, no events reported, plt 71 12/20: seen by bedside, awake, comfortable, no events 12/21: Awake, comfortable, no acute distress reported. 12/22: resting in bed, no events reported. 12/23: Pt is seen resting in bed, no acute distress 12/25: seen by bedside, awake, comfortable, no events. 12/26: no events, remains confused but comfortable, no major changes in cbc Objective Last 24 Hour Vital Signs Date Time Temp Pulse Resp B/P (MAP) Pulse Ox O2 Delivery O2 Flow Rate FiO2 12/26/18 12:27 158/81 12/26/18 12:00 86 12/26/18 12:00 97.8 99 158/81 (106) 18 12/26/18 09:00 Nasal Cannula 2.0 12/26/18 08:00 98.7 86 18 148/66 (93) 99 12/26/18 08:00 90 12/26/18 07:19 80 18 Nasal Cannula 2.0 28 12/26/18 07:19 100 Nasal Cannula 2.0 28 12/26/18 07:19 Nasal Cannula 2.0 28 12/26/18 05:39 145/73 12/26/18 04:17 75 12/26/18 03:32 98.0 86 20 145/73 (97) 99 12/26/18 00:00 78 12/26/18 00:00 138/70 12/25/18 23:58 98.4 79 20 138/70 (92) 99 12/25/18 21:42 Nasal Cannula 2.0 12/25/18 21:35 Nasal Cannula 2.0 28 12/25/18 21:35 87 18 Nasal Cannula 2.0 28 12/25/18 21:35 100 Nasal Cannula 2.0 28 12/25/18 20:00 98.0 100 20 142/71 (94) 95 12/25/18 20:00 78 12/25/18 17:04 140/77 12/25/18 17:03 140/77 Intake and Output 12/25/18 12/26/18 19:00 07:00 Intake Total 605 ml Output Total 550 ml 200 ml Balance 55 ml -200 ml Tube Feeding 605 ml Output Urine Total 550 ml 200 ml # Bowel Movements 1 Height (Feet): 5 Height (Inches): 2.00 Weight (Pounds): 115 Objective PHYSICAL EXAMINATION: VITAL SIGNS: Reviewed. Saturating 100% on 2 L. NC++ GENERAL: She is an elderly demented female, in no acute distress. Nonverbal. HEENT: Normocephalic and atraumatic. Oropharynx is clear. Moist mucous membranes. NECK: Supple without lymphadenopathy. CHEST: Clear, but rales at the bases. HEART: Regular rate and rhythm. ABDOMEN: Soft, nontender, and nondistended. ++ peg EXTREMITIES: No cyanosis, clubbing or edema. Dewayne Gayle MD Dec 26, 2018 16:29
[2018-12-26] MEDS: Nitroglycerin Patch 0.4mg TDERMAL SCH (18:16)
--- NOTE | 2018-12-26 19:37 | NUR ---
HAND-OFF: Report given to ALEJANDRA DYKES.
[2018-12-26 20:00] VITALS: BP 122/66
--- NOTE | 2018-12-26 20:30 | NUR ---
NURSE NOTES: received pt in stable condition, glucerna feeding running at 55 ml/hr. no acute distress noted. safety precaution in place. will continue to monitor.
[2018-12-26] MEDS: Atorvastatin 20mg tab GT SCH (21:31)
--- NOTE | 2018-12-26 21:52 | General Progress Note ---
Assessment/Plan Problem List: (1) Dementia with behavioral disturbance ICD Codes: F03.91 - Unspecified dementia with behavioral disturbance SNOMED: 6826218617558 (2) Fever ICD Codes: R50.9 - Fever, unspecified SNOMED: 330212805 (3) Dehydration ICD Codes: E86.0 - Dehydration SNOMED: 82975415 (4) Anemia ICD Codes: D64.9 - Anemia, unspecified SNOMED: 135546138 (5) Thrombocytopenia ICD Codes: D69.6 - Thrombocytopenia, unspecified SNOMED: 247193415 (6) CVA (cerebral vascular accident) ICD Codes: I63.9 - Cerebral infarction, unspecified SNOMED: 396243404 Qualifiers: Qualified Codes: I63.9 - Cerebral infarction, unspecified (7) Elevated troponin I level ICD Codes: R74.8 - Abnormal levels of other serum enzymes SNOMED: 164298814 (8) Diabetic nephropathy 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 SNOMED: 641490885 (9) Feeding by G-tube ICD Codes: Z93.1 - Gastrostomy status SNOMED: 204971876, 702297537, 799925605 Status: progressing Assessment/Plan anemia will dc in am afebrile pna improving subacute cva persistent pancytopenia Subjective ROS Limited/Unobtainable: Yes Allergies: Coded Allergies: No Known Allergies (Unverified , 12/14/18) Objective Last 24 Hour Vital Signs Date Time Temp Pulse Resp B/P (MAP) Pulse Ox O2 Delivery O2 Flow Rate FiO2 12/26/18 21:01 Nasal Cannula 2.0 28 12/26/18 21:01 99 Nasal Cannula 2.0 28 12/26/18 21:00 72 20 Nasal Cannula 2.0 28 12/26/18 18:16 160/88 12/26/18 18:15 160/88 12/26/18 16:00 87 12/26/18 16:00 98.3 85 18 144/73 (96) 100 12/26/18 12:27 158/81 12/26/18 12:00 86 12/26/18 12:00 97.8 99 158/81 (106) 18 12/26/18 09:00 Nasal Cannula 2.0 12/26/18 08:00 98.7 86 18 148/66 (93) 99 12/26/18 08:00 90 12/26/18 07:19 80 18 Nasal Cannula 2.0 28 12/26/18 07:19 100 Nasal Cannula 2.0 28 12/26/18 07:19 Nasal Cannula 2.0 28 12/26/18 05:39 145/73 12/26/18 04:17 75 12/26/18 03:32 98.0 86 20 145/73 (97) 99 12/26/18 00:00 78 12/26/18 00:00 138/70 12/25/18 23:58 98.4 79 20 138/70 (92) 99 Intake and Output 12/25/18 12/26/18 19:00 07:00 Intake Total 605 ml Output Total 550 ml 200 ml Balance 55 ml -200 ml Tube Feeding 605 ml Output Urine Total 550 ml 200 ml # Bowel Movements 1 Height (Feet): 5 Height (Inches): 2.00 Weight (Pounds): 115 General Appearance: confused Cardiovascular: normal rate Respiratory/Chest: lungs clear Abdomen: soft Yi Asencio MD Dec 26, 2018 21:52
[2018-12-27] VITALS: BP 149/80
--- NOTE | 2018-12-27 | NUR ---
NURSE NOTES: pt in stable condition no acute distress will continue to monitor
[2018-12-27] MEDS: HydrALAZINE 10mg Tab GT SCH ×3 (00:10→12:36)
[2018-12-27] MEDS: NovoLOG Insulin Flexpen SUBQ SCH ×3 (00:11→12:00)
[2018-12-27 04:00] VITALS: BP 113/76
--- NOTE | 2018-12-27 06:13 | General Progress Note ---
Assessment/Plan Problem List: (1) Feeding by G-tube ICD Codes: Z93.1 - Gastrostomy status SNOMED: 549352633, 714087538, 271736620 (2) Altered mental status ICD Codes: R41.82 - Altered mental status, unspecified SNOMED: 339382999 (3) Thrombocytopenia ICD Codes: D69.6 - Thrombocytopenia, unspecified SNOMED: 629290240 (4) Sepsis ICD Codes: A41.9 - Sepsis, unspecified organism SNOMED: 69145615 Assessment/Plan continue Novolog sliding scale every 6 hours no need for basal insulin Subjective ROS Limited/Unobtainable: Yes Allergies: Coded Allergies: No Known Allergies (Unverified , 12/14/18) Subjective events noted Item Value Date Time Bedside Blood Glucose 143 mg/dl H 12/27/18 0602 Bedside Blood Glucose 133 mg/dl H 12/27/18 0011 Bedside Blood Glucose 142 mg/dl H 12/26/18 1819 Bedside Blood Glucose 154 mg/dl H 12/26/18 1228 Bedside Blood Glucose 171 mg/dl H 12/26/18 0607 Bedside Blood Glucose 159 mg/dl H 12/26/18 0030 Objective Last 24 Hour Vital Signs Date Time Temp Pulse Resp B/P (MAP) Pulse Ox O2 Delivery O2 Flow Rate FiO2 12/27/18 06:01 113/76 12/27/18 04:00 98.0 97 18 113/76 (88) 96 12/27/18 04:00 68 12/27/18 00:10 136/77 12/27/18 00:00 71 12/27/18 00:00 98.0 82 19 149/80 (103) 100 12/26/18 21:01 Nasal Cannula 2.0 28 12/26/18 21:01 99 Nasal Cannula 2.0 28 12/26/18 21:00 72 20 Nasal Cannula 2.0 28 12/26/18 21:00 Nasal Cannula 2.0 12/26/18 20:00 77 12/26/18 20:00 98.4 104 20 122/66 (84) 100 12/26/18 18:16 160/88 12/26/18 18:15 160/88 12/26/18 16:00 87 12/26/18 16:00 98.3 85 18 144/73 (96) 100 12/26/18 12:27 158/81 12/26/18 12:00 86 12/26/18 12:00 97.8 99 158/81 (106) 18 12/26/18 09:00 Nasal Cannula 2.0 12/26/18 08:00 98.7 86 18 148/66 (93) 99 12/26/18 08:00 90 12/26/18 07:19 80 18 Nasal Cannula 2.0 28 12/26/18 07:19 100 Nasal Cannula 2.0 28 12/26/18 07:19 Nasal Cannula 2.0 28 Intake and Output 12/26/18 12/27/18 18:59 06:59 Output Total 1050 ml 750 ml Balance -1050 ml -750 ml Output Urine Total 1050 ml 750 ml # Bowel Movements 4 Height (Feet): 5 Height (Inches): 2.00 Weight (Pounds): 115 General Appearance: no apparent distress Neck: normal alignment Cardiovascular: normal rate Respiratory/Chest: normal breath sounds Abdomen: normal bowel sounds Objective Current Medications Medications (Trade) Dose Ordered Sig/Laure Route PRN Reason Start Time Stop Time Status Last Admin Dose Admin Acetaminophen (Tylenol) 650 mg Q4H PRN GT Mild Pain/Temp > 100.5 12/19/18 11:00 01/13/19 10:59 Aspirin (ASA) 81 mg DAILY NG 12/19/18 15:30 01/18/19 15:29 12/26/18 08:30 Atorvastatin Calcium (Lipitor) 20 mg BEDTIME GT 12/19/18 21:00 01/17/19 20:59 12/26/18 21:31 Clopidogrel Bisulfate (Plavix) 75 mg DAILY GT 12/20/18 09:00 01/14/19 08:59 12/26/18 08:31 Dextrose (Dextrose 50%) 25 ml Q30M PRN IV Hypoglycemia 12/19/18 11:15 01/13/19 17:14 Dextrose (Dextrose 50%) 50 ml Q30M PRN IV Hypoglycemia 12/19/18 11:15 01/13/19 17:14 Hydralazine HCl (Apresoline) 10 mg Q6HR GT 12/19/18 12:00 01/17/19 17:59 12/27/18 06:01 Hydralazine HCl (Apresoline) 25 mg Q4H PRN GT bp over 160 syst 3/11/19 11:00 01/17/19 10:59 Insulin Aspart (NovoLOG) EVERY 6 HOURS SUBQ 12/19/18 12:00 01/13/19 20:59 12/27/18 06:02 Lansoprazole (Prevacid) 30 mg BID GT 12/19/18 18:00 01/15/19 17:59 12/26/18 18:16 Nitroglycerin (Ntg) 1 patch Q24H TDERMAL 12/19/18 17:00 01/13/19 16:59 12/26/18 18:16 Ondansetron HCl (Zofran ODT) 4 mg Q4HR ORAL 12/19/18 13:00 01/13/19 20:59 12/27/18 06:01 Potassium Chloride (K-Dur) 20 meq TWICE A DAY GT 12/22/18 18:00 01/21/19 17:59 12/26/18 18:17 Enrique Tafoya MD Dec 27, 2018 06:13
--- NOTE | 2018-12-27 07:20 | NUR ---
NURSE NOTES: REPORT OBTAINED FROM ALEJANDRA DYKES.
--- NOTE | 2018-12-27 07:45 | NUR ---
HAND-OFF: Report given to DONIS thakur.
--- NOTE | 2018-12-27 07:57 | NUR ---
DISCHARGE PLAN DISCHARGE ORDER NOTED [employer] FAXED CLINICALS TO [facility]; [phone] F: [phone] AWAIT ACCEPTANCE AND ROOM ASSIGNMENT Addendum: 12/27/18 at 1107 by APRIL WASHBURN LVN LVN SPOKE WITH GENEVA AT [facility] THEY ARE TRYING TO MAKE ROOM CHANGES TO ACCOMMODATE THIS PATIENT
[2018-12-27 08:00] VITALS: BP 138/63
[2018-12-27 08:03] LABS: HEMOGLOBIN 9.9 G/DL (12.0-16.0); MEAN CORPUSCULAR VOLUME 98 FL (80-99); PLATELET COUNT 89 K/UL (150-450); RED BLOOD COUNT 3.25 M/UL (4.20-5.40); RED CELL DISTRIBUTION WIDTH 15.9 % (11.6-14.8); WHITE BLOOD COUNT 4.1 K/UL (4.8-10.8)
[2018-12-27 08:24] LABS: ANION GAP 5 mmol/L (5-15); BLOOD UREA NITROGEN 26 mg/dL (7-18); CALCIUM 10.1 MG/DL (8.5-10.1); CARBON DIOXIDE 31 MMOL/L (21-32); CHLORIDE 105 MMOL/L (98-107); CREATININE 0.9 MG/DL (0.55-1.30); POTASSIUM 4.4 MMOL/L (3.5-5.1); SODIUM 141 MMOL/L (136-145)
[2018-12-27] MEDS: Aspirin Baby 81mg NG SCH (08:27)
--- NOTE | 2018-12-27 10:33 | Infectious Diseases Prog Note ---
Assessment/Plan Assessment/Plan antibiotics : none A 1. e.coli UTI s/p rx 2. pneumonia s/p rx 3. bilateral renal calculus 4. left ureteral calculus 5. diabetes mellitus 6. CVA P 1. observe off antibiotics Subjective ROS Limited/Unobtainable: Yes Allergies: Coded Allergies: No Known Allergies (Unverified , 12/14/18) Objective Vital Signs Last 24 Hour Vital Signs Date Time Temp Pulse Resp B/P (MAP) Pulse Ox O2 Delivery O2 Flow Rate FiO2 12/27/18 07:20 98 Nasal Cannula 2.0 28 12/27/18 07:20 Nasal Cannula 2.0 28 12/27/18 07:20 64 16 Nasal Cannula 2.0 28 12/27/18 06:01 113/76 12/27/18 04:00 98.0 97 18 113/76 (88) 96 12/27/18 04:00 68 12/27/18 00:10 136/77 12/27/18 00:00 71 12/27/18 00:00 98.0 82 19 149/80 (103) 100 12/26/18 21:01 Nasal Cannula 2.0 28 12/26/18 21:01 99 Nasal Cannula 2.0 28 12/26/18 21:00 72 20 Nasal Cannula 2.0 28 12/26/18 21:00 Nasal Cannula 2.0 12/26/18 20:00 77 12/26/18 20:00 98.4 104 20 122/66 (84) 100 12/26/18 18:16 160/88 12/26/18 18:15 160/88 12/26/18 16:00 87 12/26/18 16:00 98.3 85 18 144/73 (96) 100 12/26/18 12:27 158/81 12/26/18 12:00 86 12/26/18 12:00 97.8 99 158/81 (106) 18 Height (Feet): 5 Height (Inches): 2.00 Weight (Pounds): 115 Respiratory/Chest: lungs clear Cardiovascular: normal rate, regular rhythm, no gallop/murmur Abdomen: soft, non tender, other - GT Extremities: no edema Laboratory Tests Test 12/27/18 06:42 White Blood Count 4.1 K/UL (4.8-10.8) L Red Blood Count 3.25 M/UL (4.20-5.40) L Hemoglobin 9.9 G/DL (12.0-16.0) L Hematocrit 32.0 % (37.0-47.0) L Mean Corpuscular Volume 98 FL (80-99) Mean Corpuscular Hemoglobin 30.5 PG (27.0-31.0) Mean Corpuscular Hemoglobin Concent 31.0 G/DL (32.0-36.0) L Red Cell Distribution Width 15.9 % (11.6-14.8) H Platelet Count 89 K/UL (150-450) L Mean Platelet Volume 8.8 FL (6.5-10.1) Neutrophils (%) (Auto) % (45.0-75.0) Lymphocytes (%) (Auto) % (20.0-45.0) Monocytes (%) (Auto) % (1.0-10.0) Eosinophils (%) (Auto) % (0.0-3.0) Basophils (%) (Auto) % (0.0-2.0) Neutrophils % (Manual) Pending Lymphocytes % (Manual) Pending Platelet Estimate Pending Platelet Morphology Pending Sodium Level 141 MMOL/L (136-145) Potassium Level 4.4 MMOL/L (3.5-5.1) Chloride Level 105 MMOL/L (98-107) Carbon Dioxide Level 31 MMOL/L (21-32) Anion Gap 5 mmol/L (5-15) Blood Urea Nitrogen 26 mg/dL (7-18) H Creatinine 0.9 MG/DL (0.55-1.30) Estimat Glomerular Filtration Rate mL/min (>60) Glucose Level 142 MG/DL (74-106) H Calcium Level 10.1 MG/DL (8.5-10.1) Current Medications Medications (Trade) Dose Ordered Sig/Laure Route PRN Reason Start Time Stop Time Status Last Admin Dose Admin Acetaminophen (Tylenol) 650 mg Q4H PRN GT Mild Pain/Temp > 100.5 12/19/18 11:00 01/13/19 10:59 Aspirin (ASA) 81 mg DAILY NG 12/19/18 15:30 01/18/19 15:29 12/27/18 08:27 Atorvastatin Calcium (Lipitor) 20 mg BEDTIME GT 12/19/18 21:00 01/17/19 20:59 12/26/18 21:31 Clopidogrel Bisulfate (Plavix) 75 mg DAILY GT 12/20/18 09:00 01/14/19 08:59 12/27/18 08:27 Dextrose (Dextrose 50%) 25 ml Q30M PRN IV Hypoglycemia 12/19/18 11:15 01/13/19 17:14 Dextrose (Dextrose 50%) 50 ml Q30M PRN IV Hypoglycemia 12/19/18 11:15 01/13/19 17:14 Hydralazine HCl (Apresoline) 10 mg Q6HR GT 12/19/18 12:00 01/17/19 17:59 12/27/18 06:01 Hydralazine HCl (Apresoline) 25 mg Q4H PRN GT bp over 160 syst 12/19/18 11:00 01/17/19 10:59 Insulin Aspart (NovoLOG) EVERY 6 HOURS SUBQ 12/19/18 12:00 01/13/19 20:59 12/27/18 06:02 Lansoprazole (Prevacid) 30 mg BID GT 12/19/18 18:00 01/15/19 17:59 12/27/18 08:26 Nitroglycerin (Ntg) 1 patch Q24H TDERMAL 12/19/18 17:00 01/13/19 16:59 12/26/18 18:16 Ondansetron HCl (Zofran ODT) 4 mg Q4HR ORAL 12/19/18 13:00 01/13/19 20:59 12/27/18 08:26 Potassium Chloride (K-Dur) 20 meq TWICE A DAY GT 12/22/18 18:00 01/21/19 17:59 12/27/18 08:27 Jasmine Lechuga MD Dec 27, 2018 10:33
--- NOTE | 2018-12-27 10:36 | GI Progress Note ---
Assessment/Plan Problems: (1) Altered mental status ICD Codes: R41.82 - Altered mental status, unspecified SNOMED: 875631911 (2) Anemia ICD Codes: D64.9 - Anemia, unspecified SNOMED: 680083870 (3) Thrombocytopenia ICD Codes: D69.6 - Thrombocytopenia, unspecified SNOMED: 818224341 (4) Malnutrition ICD Codes: E46 - Unspecified protein-calorie malnutrition SNOMED: 61254442 (5) Dehydration ICD Codes: E86.0 - Dehydration SNOMED: 98337404 Status: stable Status Narrative Discussed with Dr. Argueta Assessment/Plan Abdominal US reviewed, see full report. Equivocally slightly coarsened hepatic echogenicity, could indicate hepatocellular disease. GTF per RD, tolerating prn transfusions ppi reglan if needed abx per ID supportive care fu labs okay for DC per GI standpoint The patient was seen and examined at bedside and all new and available data was reviewed in the patients chart. I agree with the above findings, impression and plan. (Patient seen earlier today. Signature stamp does not reflect patient encounter time.). - Edwardo Argueta MD Subjective Subjective limited Objective Last 24 Hour Vital Signs Date Time Temp Pulse Resp B/P (MAP) Pulse Ox O2 Delivery O2 Flow Rate FiO2 12/27/18 07:20 98 Nasal Cannula 2.0 28 12/27/18 07:20 Nasal Cannula 2.0 28 12/27/18 07:20 64 16 Nasal Cannula 2.0 28 12/27/18 06:01 113/76 12/27/18 04:00 98.0 97 18 113/76 (88) 96 12/27/18 04:00 68 12/27/18 00:10 136/77 12/27/18 00:00 71 12/27/18 00:00 98.0 82 19 149/80 (103) 100 12/26/18 21:01 Nasal Cannula 2.0 28 12/26/18 21:01 99 Nasal Cannula 2.0 28 12/26/18 21:00 72 20 Nasal Cannula 2.0 28 12/26/18 21:00 Nasal Cannula 2.0 12/26/18 20:00 77 12/26/18 20:00 98.4 104 20 122/66 (84) 100 12/26/18 18:16 160/88 12/26/18 18:15 160/88 12/26/18 16:00 87 12/26/18 16:00 98.3 85 18 144/73 (96) 100 12/26/18 12:27 158/81 12/26/18 12:00 86 12/26/18 12:00 97.8 99 158/81 (106) 18 Intake and Output 12/26/18 12/27/18 18:59 06:59 Output Total 1050 ml 750 ml Balance -1050 ml -750 ml Output Urine Total 1050 ml 750 ml # Bowel Movements 4 Laboratory Tests Test 12/27/18 06:42 White Blood Count 4.1 K/UL (4.8-10.8) L Red Blood Count 3.25 M/UL (4.20-5.40) L Hemoglobin 9.9 G/DL (12.0-16.0) L Hematocrit 32.0 % (37.0-47.0) L Mean Corpuscular Volume 98 FL (80-99) Mean Corpuscular Hemoglobin 30.5 PG (27.0-31.0) Mean Corpuscular Hemoglobin Concent 31.0 G/DL (32.0-36.0) L Red Cell Distribution Width 15.9 % (11.6-14.8) H Platelet Count 89 K/UL (150-450) L Mean Platelet Volume 8.8 FL (6.5-10.1) Neutrophils (%) (Auto) % (45.0-75.0) Lymphocytes (%) (Auto) % (20.0-45.0) Monocytes (%) (Auto) % (1.0-10.0) Eosinophils (%) (Auto) % (0.0-3.0) Basophils (%) (Auto) % (0.0-2.0) Neutrophils % (Manual) Pending Lymphocytes % (Manual) Pending Platelet Estimate Pending Platelet Morphology Pending Sodium Level 141 MMOL/L (136-145) Potassium Level 4.4 MMOL/L (3.5-5.1) Chloride Level 105 MMOL/L (98-107) Carbon Dioxide Level 31 MMOL/L (21-32) Anion Gap 5 mmol/L (5-15) Blood Urea Nitrogen 26 mg/dL (7-18) H Creatinine 0.9 MG/DL (0.55-1.30) Estimat Glomerular Filtration Rate mL/min (>60) Glucose Level 142 MG/DL (74-106) H Calcium Level 10.1 MG/DL (8.5-10.1) Height (Feet): 5 Height (Inches): 2.00 Weight (Pounds): 115 General Appearance: WD/WN, no apparent distress, alert Cardiovascular: normal rate Respiratory/Chest: normal breath sounds, no respiratory distress Abdominal Exam: normal bowel sounds, non tender, soft, GT site - Clean dry and intact Extremities: normal range of motion, non-tender Objective Patient had bowel movement today Aidee Powell NP Dec 27, 2018 10:36
--- NOTE | 2018-12-27 11:48 | Pulmonology Progress Note ---
Assessment/Plan 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 (4) DVT (deep venous thrombosis) (5) Anemia (6) Thrombocytopenia (7) S/P IVC filter (8) Dementia with behavioral disturbance (9) Feeding by G-tube Assessment/Plan Optimize pulmonary hygiene/mobilize as tolerated PRN O2 PRN HHN's Observe off Abx per ID Monitor HH, transfuse as needed F/U GI recs F/U recs --> conservative management of hydronephrosis TF's as tolerated DVT Px: IVCF FC Continue to discuss GOC Subjective ROS Limited/Unobtainable: Yes Interval Events: No acute events Allergies: Coded Allergies: No Known Allergies (Unverified , 12/14/18) Objective Last 24 Hour Vital Signs Date Time Temp Pulse Resp B/P (MAP) Pulse Ox O2 Delivery O2 Flow Rate FiO2 12/27/18 08:00 68 12/27/18 07:20 98 Nasal Cannula 2.0 28 12/27/18 07:20 Nasal Cannula 2.0 28 12/27/18 07:20 64 16 Nasal Cannula 2.0 28 12/27/18 06:01 113/76 12/27/18 04:00 98.0 97 18 113/76 (88) 96 12/27/18 04:00 68 12/27/18 00:10 136/77 12/27/18 00:00 71 12/27/18 00:00 98.0 82 19 149/80 (103) 100 12/26/18 21:01 Nasal Cannula 2.0 28 12/26/18 21:01 99 Nasal Cannula 2.0 28 12/26/18 21:00 72 20 Nasal Cannula 2.0 28 12/26/18 21:00 Nasal Cannula 2.0 12/26/18 20:00 77 12/26/18 20:00 98.4 104 20 122/66 (84) 100 12/26/18 18:16 160/88 12/26/18 18:15 160/88 12/26/18 16:00 87 12/26/18 16:00 98.3 85 18 144/73 (96) 100 12/26/18 12:27 158/81 12/26/18 12:00 86 12/26/18 12:00 97.8 99 158/81 (106) 18 Intake and Output 12/26/18 12/27/18 19:00 07:00 Output Total 1050 ml 750 ml Balance -1050 ml -750 ml Output Urine Total 1050 ml 750 ml # Bowel Movements 4 General Appearance: no acute distress HEENT: atraumatic Respiratory/Chest: lungs clear Cardiovascular: normal rate Abdomen: soft, non tender Extremities: no edema Laboratory Tests 12/27/18 06:42: White Blood Count 4.1L, Red Blood Count 3.25L, Hemoglobin 9.9L, Hematocrit 32.0L , Mean Corpuscular Volume 98, Mean Corpuscular Hemoglobin 30.5, Mean Corpuscular Hemoglobin Concent 31.0L, Red Cell Distribution Width 15.9H, Platelet Count 89L, Mean Platelet Volume 8.8, Neutrophils (%) (Auto) , Lymphocytes (%) (Auto) , Monocytes (%) (Auto) , Eosinophils (%) (Auto) , Basophils (%) (Auto) , Neutrophils % (Manual) [Pending], Lymphocytes % (Manual) [Pending], Platelet Estimate [Pending], Platelet Morphology [Pending], Sodium Level 141, Potassium Level 4.4, Chloride Level 105, Carbon Dioxide Level 31, Anion Gap 5, Blood Urea Nitrogen 26H, Creatinine 0.9, Estimat Glomerular Filtration Rate , Glucose Level 142H, Calcium Level 10.1 Current Medications Medications (Trade) Dose Ordered Sig/Laure Route PRN Reason Start Time Stop Time Status Last Admin Dose Admin Acetaminophen (Tylenol) 650 mg Q4H PRN GT Mild Pain/Temp > 100.5 12/19/18 11:00 01/13/19 10:59 Aspirin (ASA) 81 mg DAILY NG 12/19/18 15:30 01/18/19 15:29 12/27/18 08:27 Atorvastatin Calcium (Lipitor) 20 mg BEDTIME GT 12/19/18 21:00 01/17/19 20:59 12/26/18 21:31 Clopidogrel Bisulfate (Plavix) 75 mg DAILY GT 12/20/18 09:00 01/14/19 08:59 12/27/18 08:27 Dextrose (Dextrose 50%) 25 ml Q30M PRN IV Hypoglycemia 12/19/18 11:15 01/13/19 17:14 Dextrose (Dextrose 50%) 50 ml Q30M PRN IV Hypoglycemia 12/19/18 11:15 01/13/19 17:14 Hydralazine HCl (Apresoline) 10 mg Q6HR GT 12/19/18 12:00 01/17/19 17:59 12/27/18 06:01 Hydralazine HCl (Apresoline) 25 mg Q4H PRN GT bp over 160 syst 12/19/18 11:00 01/17/19 10:59 Insulin Aspart (NovoLOG) EVERY 6 HOURS SUBQ 12/19/18 12:00 01/13/19 20:59 12/27/18 06:02 Lansoprazole (Prevacid) 30 mg BID GT 12/19/18 18:00 01/15/19 17:59 12/27/18 08:26 Nitroglycerin (Ntg) 1 patch Q24H TDERMAL 12/19/18 17:00 01/13/19 16:59 12/26/18 18:16 Ondansetron HCl (Zofran ODT) 4 mg Q4HR ORAL 12/19/18 13:00 01/13/19 20:59 12/27/18 08:26 Potassium Chloride (K-Dur) 20 meq TWICE A DAY GT 12/22/18 18:00 01/21/19 17:59 12/27/18 08:27 Lalo Greenfield MD Dec 27, 2018 11:48
[2018-12-27 12:00] VITALS: BP 164/86
--- NOTE | 2018-12-27 14:54 | NUR ---
DISCHARGE PLANNED PATIENT WILL BE RETURNING TO [facility] ROOM 1B RESIDENTIAL T: [phone] FOR NURSE TO NURSE REPORT [facility] HAS BEEN ARRANGED FOR 1630 DIRECTOR ADULT CALLED SON,ROBI, AND INFORMED HIM OF DISCHARGE...HE IS IN AGREEMENT WITH DC PLAN
--- NOTE | 2018-12-27 15:49 | General Progress Note ---
Assessment/Plan Assessment/Plan Assessment/Plan: # Leukopenia, decreased white blood cell count, Leukopenia, us of the abd reviewed and consistent with potential cirrhosis/early changes --> if the total ANC is less than 2000, consider neupogen --> continue antibiotics with ID service, appreciate recs --> medications have been reviewed --> hepatitis and hiv negative Wbc trend: 4-->2.7-->2.2->2.8-->2.6-->2.5-->4.1 # Pancytopenia, likely related to septicemia, appears new baseline 50-70k, several causes possible including viral, medication or intrabone marrow related. --> Cont to monitor plt count for improvement --> US abd: Mild left hydronephrosis. Possible left renal calyceal calculi. Negative for gallstones or dilated ducts Debris noted within the bladder --> Hep panel and HIV are both negative --> given extremely poor condition do not recommend a bone marrow biopsy, have discussed with family 08/01 with --> will rediscuss once sepsis resolves --> transfuse if plt <20k --> PLT trend: 51-->58-->71-->65-->71-->75-->89 # Anemia of chronic disease. Multifactorial. Since admission Hgb has consistently remained between 8-9. --> Cont to monitor for stability --> Hgb goal above 7. Transfuse prn. --> IV iron completed prior admission and feritin is elevated # DVT of the left leg s/p IVC filter in 07/2018-- superficial femoral vein which is a deep vein, new onset, has not had these symptoms before. Lower hgb and plts --> given decreased h/h, low thrombocytopenia, do not recommend anticoag --> appreciate Dr. Parekh and Mariam arias from prior admission --> smear reviewed # Dehydration. IVF has been administered --> improved # DM OOC --> A1C goal <7 --> Cont on insulin # Bacteremia/prior UTI. --> ID is following. Appreciate recs. --> Pt on IV abx. --> Cultures surveillance as per id # PEG placement 08/04. Greatly appreciate consultation! Subjective Allergies: Coded Allergies: No Known Allergies (Unverified , 12/14/18) Subjective 12/16: seen by bedside, awake, comfortable, hgb 8, plt 51 12/18: awake, non verbal on NC, no events, pending labs today 12/19: Pt is resting in bed, no events reported, plt 71 12/20: seen by bedside, awake, comfortable, no events 12/21: Awake, comfortable, no acute distress reported. 12/22: resting in bed, no events reported. 12/23: Pt is seen resting in bed, no acute distress 12/25: seen by bedside, awake, comfortable, no events. 12/26: no events, remains confused but comfortable, no major changes in cbc 12/27: Pt is awake, comfortable, plt trending up at 89 Objective Last 24 Hour Vital Signs Date Time Temp Pulse Resp B/P (MAP) Pulse Ox O2 Delivery O2 Flow Rate FiO2 12/27/18 12:36 164/86 12/27/18 12:00 62 12/27/18 12:00 98.4 62 20 164/86 (112) 100 12/27/18 09:00 Nasal Cannula 2.0 12/27/18 08:00 68 12/27/18 08:00 98.3 72 20 138/63 (88) 99 12/27/18 07:20 98 Nasal Cannula 2.0 28 12/27/18 07:20 Nasal Cannula 2.0 28 12/27/18 07:20 64 16 Nasal Cannula 2.0 28 12/27/18 06:01 113/76 12/27/18 04:00 98.0 97 18 113/76 (88) 96 12/27/18 04:00 68 12/27/18 00:10 136/77 12/27/18 00:00 71 12/27/18 00:00 98.0 82 19 149/80 (103) 100 12/26/18 21:01 Nasal Cannula 2.0 28 12/26/18 21:01 99 Nasal Cannula 2.0 28 12/26/18 21:00 72 20 Nasal Cannula 2.0 28 12/26/18 21:00 Nasal Cannula 2.0 12/26/18 20:00 77 12/26/18 20:00 98.4 104 20 122/66 (84) 100 12/26/18 18:16 160/88 3/18/19 18:15 160/88 12/26/18 16:00 87 12/26/18 16:00 98.3 85 18 144/73 (96) 100 Intake and Output 12/26/18 12/27/18 19:00 07:00 Output Total 1050 ml 750 ml Balance -1050 ml -750 ml Output Urine Total 1050 ml 750 ml # Bowel Movements 4 Laboratory Tests 12/27/18 06:42: White Blood Count 4.1L, Red Blood Count 3.25L, Hemoglobin 9.9L, Hematocrit 32.0L , Mean Corpuscular Volume 98, Mean Corpuscular Hemoglobin 30.5, Mean Corpuscular Hemoglobin Concent 31.0L, Red Cell Distribution Width 15.9H, Platelet Count 89L, Mean Platelet Volume 8.8, Neutrophils (%) (Auto) , Lymphocytes (%) (Auto) , Monocytes (%) (Auto) , Eosinophils (%) (Auto) , Basophils (%) (Auto) , Differential Total Cells Counted 100, Neutrophils % ( Manual) 76H, Lymphocytes % (Manual) 16L, Monocytes % (Manual) 5, Eosinophils % ( Manual) 3, Basophils % (Manual) 0, Band Neutrophils 0, Platelet Estimate DecreasedL, Platelet Morphology Normal, Anisocytosis 1+, Sodium Level 141, Potassium Level 4.4, Chloride Level 105, Carbon Dioxide Level 31, Anion Gap 5, Blood Urea Nitrogen 26H, Creatinine 0.9, Estimat Glomerular Filtration Rate , Glucose Level 142H, Calcium Level 10.1 Height (Feet): 5 Height (Inches): 2.00 Weight (Pounds): 115 Objective PHYSICAL EXAMINATION: VITAL SIGNS: Reviewed. Saturating 100% on 2 L. NC++ GENERAL: She is an elderly demented female, in no acute distress. Nonverbal. HEENT: Normocephalic and atraumatic. Oropharynx is clear. Moist mucous membranes. NECK: Supple without lymphadenopathy. CHEST: Clear, but rales at the bases. HEART: Regular rate and rhythm. ABDOMEN: Soft, nontender, and nondistended. ++ peg EXTREMITIES: No cyanosis, clubbing or edema. Dewayne Gayle MD Dec 27, 2018 15:49
[2018-12-27 16:00] VITALS: BP 144/79
--- NOTE | 2018-12-27 16:14 | General Progress Note ---
Assessment/Plan Problem List: (1) Dementia with behavioral disturbance ICD Codes: F03.91 - Unspecified dementia with behavioral disturbance SNOMED: 3604346805585 (2) Fever ICD Codes: R50.9 - Fever, unspecified SNOMED: 790507139 (3) Dehydration ICD Codes: E86.0 - Dehydration SNOMED: 46286265 (4) Anemia ICD Codes: D64.9 - Anemia, unspecified SNOMED: 275666148 (5) Thrombocytopenia ICD Codes: D69.6 - Thrombocytopenia, unspecified SNOMED: 964920786 (6) CVA (cerebral vascular accident) ICD Codes: I63.9 - Cerebral infarction, unspecified SNOMED: 948067156 Qualifiers: Qualified Codes: I63.9 - Cerebral infarction, unspecified (7) Elevated troponin I level ICD Codes: R74.8 - Abnormal levels of other serum enzymes SNOMED: 083119520 (8) Diabetic nephropathy 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 SNOMED: 692904665 (9) Feeding by G-tube ICD Codes: Z93.1 - Gastrostomy status SNOMED: 004916933, 824953441, 725884912 Status: progressing Assessment/Plan will dc no bleeding not hypoxic pna improving subacute cva persistent pancytopenia Subjective ROS Limited/Unobtainable: Yes Allergies: Coded Allergies: No Known Allergies (Unverified , 12/14/18) Objective Last 24 Hour Vital Signs Date Time Temp Pulse Resp B/P (MAP) Pulse Ox O2 Delivery O2 Flow Rate FiO2 12/27/18 12:36 164/86 12/27/18 12:00 62 12/27/18 12:00 98.4 62 20 164/86 (112) 100 12/27/18 09:00 Nasal Cannula 2.0 12/27/18 08:00 68 12/27/18 08:00 98.3 72 20 138/63 (88) 99 12/27/18 07:20 98 Nasal Cannula 2.0 28 12/27/18 07:20 Nasal Cannula 2.0 28 12/27/18 07:20 64 16 Nasal Cannula 2.0 28 12/27/18 06:01 113/76 12/27/18 04:00 98.0 97 18 113/76 (88) 96 12/27/18 04:00 68 12/27/18 00:10 136/77 12/27/18 00:00 71 12/27/18 00:00 98.0 82 19 149/80 (103) 100 12/26/18 21:01 Nasal Cannula 2.0 28 12/26/18 21:01 99 Nasal Cannula 2.0 28 12/26/18 21:00 72 20 Nasal Cannula 2.0 28 12/26/18 21:00 Nasal Cannula 2.0 12/26/18 20:00 77 12/26/18 20:00 98.4 104 20 122/66 (84) 100 12/26/18 18:16 160/88 12/26/18 18:15 160/88 Intake and Output 12/26/18 12/27/18 19:00 07:00 Output Total 1050 ml 750 ml Balance -1050 ml -750 ml Output Urine Total 1050 ml 750 ml # Bowel Movements 4 Laboratory Tests 12/27/18 06:42: White Blood Count 4.1L, Red Blood Count 3.25L, Hemoglobin 9.9L, Hematocrit 32.0L , Mean Corpuscular Volume 98, Mean Corpuscular Hemoglobin 30.5, Mean Corpuscular Hemoglobin Concent 31.0L, Red Cell Distribution Width 15.9H, Platelet Count 89L, Mean Platelet Volume 8.8, Neutrophils (%) (Auto) , Lymphocytes (%) (Auto) , Monocytes (%) (Auto) , Eosinophils (%) (Auto) , Basophils (%) (Auto) , Differential Total Cells Counted 100, Neutrophils % ( Manual) 76H, Lymphocytes % (Manual) 16L, Monocytes % (Manual) 5, Eosinophils % ( Manual) 3, Basophils % (Manual) 0, Band Neutrophils 0, Platelet Estimate DecreasedL, Platelet Morphology Normal, Anisocytosis 1+, Sodium Level 141, Potassium Level 4.4, Chloride Level 105, Carbon Dioxide Level 31, Anion Gap 5, Blood Urea Nitrogen 26H, Creatinine 0.9, Estimat Glomerular Filtration Rate , Glucose Level 142H, Calcium Level 10.1 Height (Feet): 5 Height (Inches): 2.00 Weight (Pounds): 115 EENT: PERRL/EOMI Neck: supple Cardiovascular: normal rate Respiratory/Chest: lungs clear Abdomen: soft Yi Asencio MD Dec 27, 2018 16:14
--- NOTE | 2018-12-27 16:26 | NUR ---
*-* INSURANCE *-* UPDATED CLINICALS HAVE BEEN FAXED TO: DIANE F: [phone]
--- NOTE | 2018-12-27 16:54 | NUR ---
CALLED [facility] AND GAVE FULL REPORT TO ISMAEL DYKES. PT IV DISCONTINUED. NO SIGN OF INFILTRATION. G-TUBE DISCONTINUED AND FLUSHED. NO RESIDUAL NOTED. PHOTOS TO SACRUM TAKEN. HEELS INTACT. DRESSING CHANGE DONE. PT HAS NO BELONGINGS. CARDIAC MONITORED REMOVED. REPORT GIVEN TO AMBULANCE PERSONNEL. PT IN STABLE CONDITION. DISCHARGE TO SNF.
--- NOTE | 2018-12-27 17:07 | Nephrology Progress Note ---
Assessment/Plan Problem List: (1) Diabetic nephropathy (2) Hypokalemia (3) Anemia (4) UTI (urinary tract infection) Assessment Electrolyte imbalance UTI Anemia Low K Diabetic Nephropathy, HypoAlbuminemia CAD Plan labs Ok DC Lopressor dose- On hydralazine K Phos , KCl , MgSo4 IV as needed antibiotics avoid nephrotoxics anemia mac per orders Subjective ROS Limited/Unobtainable: No Objective Objective Last 24 Hour Vital Signs Date Time Temp Pulse Resp B/P (MAP) Pulse Ox O2 Delivery O2 Flow Rate FiO2 12/27/18 16:00 97.1 83 20 144/79 (100) 98 12/27/18 12:36 164/86 12/27/18 12:00 62 12/27/18 12:00 98.4 62 20 164/86 (112) 100 12/27/18 09:00 Nasal Cannula 2.0 12/27/18 08:00 68 12/27/18 08:00 98.3 72 20 138/63 (88) 99 12/27/18 07:20 98 Nasal Cannula 2.0 28 12/27/18 07:20 Nasal Cannula 2.0 28 12/27/18 07:20 64 16 Nasal Cannula 2.0 28 12/27/18 06:01 113/76 12/27/18 04:00 98.0 97 18 113/76 (88) 96 12/27/18 04:00 68 12/27/18 00:10 136/77 12/27/18 00:00 71 12/27/18 00:00 98.0 82 19 149/80 (103) 100 12/26/18 21:01 Nasal Cannula 2.0 28 12/26/18 21:01 99 Nasal Cannula 2.0 28 12/26/18 21:00 72 20 Nasal Cannula 2.0 28 12/26/18 21:00 Nasal Cannula 2.0 12/26/18 20:00 77 12/26/18 20:00 98.4 104 20 122/66 (84) 100 12/26/18 18:16 160/88 12/26/18 18:15 160/88 Intake and Output 12/26/18 12/27/18 19:00 07:00 Output Total 1050 ml 750 ml Balance -1050 ml -750 ml Output Urine Total 1050 ml 750 ml # Bowel Movements 4 Laboratory Tests 12/27/18 06:42: White Blood Count 4.1L, Red Blood Count 3.25L, Hemoglobin 9.9L, Hematocrit 32.0L , Mean Corpuscular Volume 98, Mean Corpuscular Hemoglobin 30.5, Mean Corpuscular Hemoglobin Concent 31.0L, Red Cell Distribution Width 15.9H, Platelet Count 89L, Mean Platelet Volume 8.8, Neutrophils (%) (Auto) , Lymphocytes (%) (Auto) , Monocytes (%) (Auto) , Eosinophils (%) (Auto) , Basophils (%) (Auto) , Differential Total Cells Counted 100, Neutrophils % ( Manual) 76H, Lymphocytes % (Manual) 16L, Monocytes % (Manual) 5, Eosinophils % ( Manual) 3, Basophils % (Manual) 0, Band Neutrophils 0, Platelet Estimate DecreasedL, Platelet Morphology Normal, Anisocytosis 1+, Sodium Level 141, Potassium Level 4.4, Chloride Level 105, Carbon Dioxide Level 31, Anion Gap 5, Blood Urea Nitrogen 26H, Creatinine 0.9, Estimat Glomerular Filtration Rate , Glucose Level 142H, Calcium Level 10.1 Height (Feet): 5 Height (Inches): 2.00 Weight (Pounds): 115 General Appearance: no apparent distress Objective no change Parvez Bergman MD Dec 27, 2018 17:07
--- NOTE | 2018-12-28 10:55 | NUR ---
*-* INSURANCE *-* UPDATED CLINICALS HAVE BEEN FAXED TO: DIANE F: [phone]
--- NOTE | 2018-12-29 13:07 | Discharge Summary ---
Discharge Summary Discharge Summary _ DATE OF ADMISSION: 12/14/2018 DATE OF DISCHARGE: 12/27/2018 DISCHARGED BY: Dr Asencio REASON FOR ADMISSION: 78 years old female with past medical history of diabetes mellitus, dysphagia, G -tube, CVA with hemiplegia, dementia, thrombocytopenia, presented to emergency room from the residential facility for altered mental status and weakness. Patient was just discharged from [facility] back to residential facility, however nursing staff stated that patient was altered and had fever in the morning. She had one episode of vomiting prior to arrival. Upon evaluation in the emergency department, patient was noted to be febrile with fever of 101.7 and tachycardic with heart rate 128. Pulse oximetry was stable on room air. Laboratory workup revealed no leukocytosis, hemoglobin 9.7, hematocrit 31.4. Platelet count 65. Urinalysis was positive for UTI. Sodium 147. BUN 28, creatinine 0.9. Lactic acid 1.7. Stable LFT. Pro BNP 1134. First troponin negative. EKG revealed sinus tachycardia, no acute ischemic changes. CT of the head revealed findings consistent with large late subacute nonhemorrhagic infarct in the anterior right basal ganglia region. This was middle cerebral artery distribution infarct. Multiple old infarcts noted as well. No acute intracranial bleeding, midline shift no evidence of herniation. Chest x-ray revealed left basilar pleural fluid and likely considered consolidation. CONSULTANTS: extra hand Dr. Meraz neurologist Dr. Durbin pulmonary Dr. Parkeh ID specialist Dr. Lechuga GI specialist Dr. Argueta drone pilot Dr. Bergman urologist Dr. Ceballos tile molder hand Dr. Tafoya [facility] COURSE: Patient admitted to telemetry floor. Neurologist seen and evaluated patient. Per neurologist, patient had subacute infarction involving the right basal ganglia with old lacunar stroke in the basal ganglia as well as in the anni. Patient also appeared to have old subacute stroke in the distal portion of the right middle cerebral artery. Patient with multi-infarct dementia. Patient also had metabolic encephalopathy related to urinary tract infection, anemia, and dehydration. Neurologist recommended antiplatelet therapy with Plavix along with aspirin, continue Plavix for 3 months and then stop, since combination of Plavix and aspirin carry increased incidence of central nervous system bleeding. Lipid panel was stable. Statin was continued. Placement Interviewer follow. Second troponin slightly elevated-0.075. Per extra hand, slight elevation in troponin was likely due to demand ischemia. Placement Interviewer recommended continue with dual antiplatelet therapy and statin. Blood pressure was closely monitored. Antihypertensive regimen was optimized to keep blood pressure under control. Infectious disease specialist closely followed. Blood cultures were negative. Rapid influenza screen test was negative. Urine culture revealed E. coli. Antibiotic regimen was optimized as per infectious disease specialist recommendation. Patient completed treatment for E. coli and pneumonia. Infectious disease specialist recommended to observe patient off antibiotics. Abdominal ultrasound revealed left hydronephrosis. Left lower pole intra-renal calculus, larger than on prior CT. Nonobstructive right intrarenal calculus also described on prior CT. No gallstones no dilated ducts. Slightly coarsened hepatic echogenicity, possibly indicative of hepatocellular disease. Splenomegaly. Urologist seen the patient for renal stones. According to urologist, patient condition was nonacute. Creatinine remained stable. Blood work was stable. Hydronephrosis was not acute. Urologist recommended conservative management and close observation. No surgical intervention was recommended at this time. Hospital Plan Administrator closely followed. Supplemental oxygen provided as needed to keep pulse oximetry above 90%. Bronchodilator therapy via hand-held nebulizing provided as needed. Patient undergone treatment for pneumonia. Strict aspiration precautions were maintained. Tube feeding provided, and patient was able to tolerate tube feeding. DVT prophylaxis provided. Volumes were closely monitored. Patient with history of prior DVT in 2018 superficial femoral vein,, status post IVC filter, 07/2018. Office Assistance seen the patient for blood sugar management. Per tile molder hand, no need for basal insulin. Office Assistance recommended sliding scale of NovoLog every 6 hours as needed. GI specialist followed. Abdominal ultrasound noted and as above Patient was on G-tube feeding with goal rate as recommended by a registered dietitian. Nutritional supplements implemented in plan of care. Antiemetic were on board as needed. Patient started on PPI. Supportive care provided. GI prophylaxis provided. Coil Winder followed. Per drone pilot, patient had diabetic nephropathy. Renal parameters and electrolytes were closely monitored. Electrolytes corrected as needed. Potassium, phosphorus, and magnesium were all replaced. Prior to discharge creatinine stable, electrolytes stable. Physician Surgeon oncologist closely followed. Patient had anemia of chronic disease which was multifactorial. Hemoglobin and hematocrit remained consistently between 8 and 9. Hemoglobin and hematocrit were closely monitored with goal to keep hemoglobin above 7. Patient completed IV iron therapy on the prior admission, and currently ferritin was elevated. Patient was noted to have leukopenia, however it was trending up; possibly due to potential cirrhosis or early changes. Hepatitis panel and HIV were both negative on the previous admission. Abdominal ultrasound revealed early liver changes. 3 previous admission bone marrow biopsy was not recommended, given poor condition overall. Once sepsis resolved, fruit worker planned to re-discuss issues about bone marrow biopsy with the family. Prior to discharge WBC 4.1, hemoglobin 9.9 and platelet count 89. Fever resolved. Patient status post treatment for pneumonia and UTI. Patient was stable for discharge to residential facility for continuation of care. FINAL DIAGNOSES: Large subacute nonhemorrhagic infarct in the anterior right basal ganglia Extensive cerebrovascular disease with history of multiple old infarcts Mild elevation of troponin, likely demand ischemia E. coli UTI, status post treatment Pneumonia ,status post treatment Encephalopathy due to metabolic factors or toxin Dysphagia, G-tube feeding Mild hydronephrosis Left ureteral calculus Bilateral renal calculus Diabetes mellitus Malnutrition Dehydration Diabetic nephropathy Electrolyte imbalance Thrombocytopenia Pancytopenia Anemia of chronic disease History of recent DVT, s/p IVC filter Dementia with behavioral disturbances DISCHARGE MEDICATIONS: See Medication Reconciliation list. DISCHARGE INSTRUCTIONS: Patient was discharged to the residential facility. Follow up with medical doctor at the facility. I have been assigned to dictate discharge summary for this account. I was not involved in the patient's management. Sarah Hunter NP Dec 29, 2018 13:07
== END 2018-12-27 18:05 | DRG 871 ==
LOC: EDBD 08:58 → EDBEDREQ 09:15 → EDBEDREQSVC 09:15 → EMR 09:19 → 2E 09:47 → EDBEDREQ 10:43 → 2W 13:09 → 2E 12-19 10:52
DX: A41.9 Sepsis, unspecified organism (principal); G93.41 Metabolic encephalopathy; I63.9 Cerebral infarction, unspecified; J18.9 Pneumonia, unspecified organism; N39.0 Urinary tract infection, site not specified; D61.818 Other pancytopenia; F01.51 Vascular dementia, unspecified severity, with behavioral disturbance; N13.30 Unspecified hydronephrosis; N13.2 Hydronephrosis with renal and ureteral calculous obstruction; E46 Unspecified protein-calorie malnutrition; J90 Pleural effusion, not elsewhere classified; I82.412 Acute embolism and thrombosis of left femoral vein; E86.0 Dehydration; B96.20 Unspecified Escherichia coli [E. coli] as the cause of diseases classified elsewhere; D69.6 Thrombocytopenia, unspecified; I10 Essential (primary) hypertension; R13.10 Dysphagia, unspecified; Z93.1 Gastrostomy status; E11.65 Type 2 diabetes mellitus with hyperglycemia; E11.21 Type 2 diabetes mellitus with diabetic nephropathy; I69.919 Unspecified symptoms and signs involving cognitive functions following unspecified cerebrovascular disease; D64.9 Anemia, unspecified; Z68.21 Body mass index [BMI] 21.0-21.9, adult; I25.10 Atherosclerotic heart disease of native coronary artery without angina pectoris; E87.6 Hypokalemia
CPT/HCPCS: 36415; 70450; 71045; 76700; 80048; 80053; 80061; 81003; 82533; 82550; 82607; 82728; 82746; 82962; 82977; 83036; 83605; 83735; 83880; 84100; 84443; 84484; 84550; 85007; 85025; 86140; 86710; 87040; 87086; 87181; 93005; 94664; 94760; 96361; 96365; 99285; J1815; J7620; J8499

== ENCOUNTER 2019-01-02 00:13 | Inpatient (IN) | payer OTHER, MEDICAID ==
[~2019-01-02] VITALS: Ht 165.1 cm; Wt 61.6 kg
[2019-01-02] VITALS (10 sets, daily range): BP systolic 107–152; BP diastolic 49–80
[~2019-01-02 00:13] MED LIST changes: +ACETAMINOP160 MG/54 ORAL; +ALBUTEROL2.5 MG/3 M INH; +METOPROLOL TART25 MG ORAL; +NITROGLYCERIN1 EAC2 TD; +NITROGLYCERIN2.5 MG PO
[2019-01-02] MEDS ORDERED: ASPIR 8181 MG ORAL (00:17)
[2019-01-02] MEDS ORDERED: BACITRACIN1 EACH TOPIC (00:17)
[2019-01-02] MEDS ORDERED: ATORVASTATIN CA20 MG GT (00:17)
[2019-01-02] MEDS ORDERED: HYDRALAZINE HCL10 MG GT (00:17)
[2019-01-02] MEDS ORDERED: PLAVIX75 MG GT (00:17)
[2019-01-02] MEDS ORDERED: HYDRALAZINE HCL25 M1 GT (00:22)
[2019-01-02] MEDS ORDERED: MILK OF MA400 MG/51 GT (00:22)
[2019-01-02] MEDS ORDERED: LANSOPRAZOLE30 MG GT (00:22)
[2019-01-02] MEDS ORDERED: HYDROGEL3000 GM TOPIC (00:22)
[2019-01-02] MEDS ORDERED: HUMALOG100 UNIT/3 SUBQ (00:22)
[2019-01-02] MEDS ORDERED: MULTIVITAMINS1 EAC8 GT (00:26)
[2019-01-02] MEDS ORDERED: TYLENOL325 M1 GT (00:26)
[2019-01-02] MEDS ORDERED: NITROSTAT0.4 M1 SL (00:26)
[2019-01-02] MEDS ORDERED: POTASSIUM20 MEQ/15 GT (00:26)
[2019-01-02] MEDS ORDERED: ZOFRAN4 M3 GT (00:26)
[2019-01-02] MEDS ORDERED: Albuterol ud Inhalation ONE (00:27)
[2019-01-02] MEDS ORDERED: VITAMIN A & D113 GM TP (00:28)
[2019-01-02] MEDS ORDERED: VITAMIN C500 M1 GT (00:28)
[2019-01-02] MEDS ORDERED: Albuterol ud Inhalation HHN ONE (00:30)
--- NOTE | 2019-01-02 00:32 | Emergency Room Report ---
History of Present Illness General Chief Complaint: Dyspnea/Respdistress Source: Medical Record, EMS Present Illness HPI This is a 78-year-old [place] female from halfway. She presents with rest or distress and altered mental status. She has multiple medical history including recent admission for CVA. She also has high blood pressure, diabetes , feeding tube. She was noted to have altered mental status tonight. Also with hypoxia with respiratory distress. At baseline she is opening her eyes. Now she will even do that. Per EMS she was very hypoxic. They put her on a nonrebreather and brought her here. Unable to get any other history from this patient. Allergies: Coded Allergies: No Known Allergies (Unverified , 12/14/18) Patient History Past Medical History: see triage record, old chart reviewed Past Surgical History: other Pertinent Family History: none Social History: Denies: smoking Now: No Immunizations: other Reviewed Nursing Documentation: PMH: Agreed; PSxH: Agreed Nursing Documentation-PMH Past Medical History: No History, Except For Hx Hypertension: Yes - Hyperlipidemia Hx Diabetes: Yes Hx Cancer: No Hx Gastrointestinal Problems: Yes - G-tube History Of Psychiatric Problem: Yes - Unspecified Hx Neurological Problems: Yes - Metabolic encephalopathy; Dementia; Muscle weakness; Hemiplagia, Hemiparesi Hx Cerebrovascular Accident: Yes Hx Dementia: Yes Hx Weakness: Yes Review of Systems Respiratory: Reports: shortness of breath All Other Systems: limited - Secondary to her condit Physical Exam Vital Signs Date Time Temp Pulse Resp B/P (MAP) Pulse Ox O2 Delivery O2 Flow Rate FiO2 01/02/19 00:08 148 24 124/73 100 Non-Rebreather 15.0 patient with tachycardia and hypoxia Sp02 EP Interpretation: abnormal General Appearance: severe distress, cachetic, Chronically Ill, Stupor Head: normocephalic, atraumatic Eyes: bilateral eye PERRL, bilateral eye EOMI ENT: dry mucus membranes Neck: supple Respiratory: respiratory distress, decreased breath sounds, accessory muscle use, rhonchi, wheezing Cardiovascular #1: tachycardia Gastrointestinal: normal bowel sounds, non tender, no mass, no organomegaly, no bruit, non-distended Musculoskeletal: back normal, other - Contracted. Sacral decub Psychiatric: mood/affect normal Skin: warm/dry Procedures Critical Care Time Critical Care Time Critical care is mandated in this patient who presented with sepsis from UTI. Patient require my urgent intervention to attenuate the risks of metabolic collapse which may lead to cardiovascular collapse and . Critical care time is 35 minutes excluding any reportable procedure. Critical care time included evaluation, multiple reevaluation, looking at old charts, interpreting laboratory and diagnostic data, discussing case with patient and family and consultants, and charting. Medical Decision Making Diagnostic Impression: Primary Impression: Acute respiratory failure with hypoxemia Additional Impressions: Sepsis Qualified Codes: A41.9 - Sepsis, unspecified organism UTI (urinary tract infection) Qualified Codes: N30.00 - Acute cystitis without hematuria ARF (acute renal failure) Qualified Codes: N17.9 - Acute kidney failure, unspecified Acute hyperkalemia Acute metabolic encephalopathy Anemia Qualified Codes: D64.9 - Anemia, unspecified Proteinuria, unspecified Qualified Codes: R80.9 - Proteinuria, unspecified Hyperglycemia due to type 2 diabetes mellitus Qualified Codes: E11.65 - Type 2 diabetes mellitus with hyperglycemia; Z79.4 - senior living (current) use of insulin ER Course Patient presents with severe sepsis stated to UTI. She does have some respiratory distress. She was very tachycardic. She was placed on BiPAP and given IV fluid. Symptoms improved. Heart rate improved. She grew out Escherichia coli in the past, ESBL. Sensitive to Invanz. Patient will be admitted for IV antibiotics. Prognosis poor. I discussed the case with Dr. Brooks who will admit. Lab Results Impression labs with hyperkalemia EKG Diagnostic Results Rate: tachycardiac Rhythm: NSR ST Segments: other - nsst Changes Rhythm Strip Diag. Results EP Interpretation: yes Rate: 115 Rhythm: NSR, no PVC's, no ectopy Chest X-Ray Diagnostic Results Chest X-Ray Diagnostic Results : Chest X-Ray Ordered: Yes # of Views/Limited/Complete: 1 View Indication: Shortness of Breath EP Interpretation: Yes Interpretation: no effusion, no pneumothorax, other - Atelectasis. Improved from prior Impression: Other - atelectasis Electronically Signed by: Jacob Powell MD Last Vital Signs Date Time Temp Pulse Resp B/P (MAP) Pulse Ox O2 Delivery O2 Flow Rate FiO2 01/02/19 00:08 148 24 124/73 100 Non-Rebreather 15.0 Status: improved Disposition: ADMITTED INPATIENT Condition: Critical Jacob Powell MD Jan 02, 2019 00:32
--- NOTE | 2019-01-02 00:33 | NUR ---
RESPIRATORY NOTE: PT. BROUGHT IN VIA AMBULANCE DUE TO RESPIRATORY DISTRESS. PT. PRESENTED INCREASED HR OF 160 WITH INCREASED RR OF 30 BPM. PT WAS BROUGHT IN ON 100% FIO2 VIA NRB MASK. RHONCHI AND RALES WERE HEARD ON ALL LOBES. PT. IS NON VERBAL AND PARAMEDICS STATED THAT PT. WAS FOUND LESS RESPONSIVE THAN USUAL. PER DR. TAVERA VERBAL ORDER PT. WAS PLACED ON BIPAP 12/5, BACK UP RATE OF 12, 100% FIO2. SPONGE TAPE PLACED UNDER FULL FACE MASK. NO FACIAL WOUNDS WERE FOUND PRIOR TO TAPING FACE. 5MG OF ALBUTEROL WERE ADMINISTERED PER DR. TAVERA VERBAL ORDER. PT. CONTINUES TO HAVE INCREASED HR OF 155 WELL INCREASED RR OF 25 BPM POST HHN TX. BREATH SOUNDS HAVE IMPROVED AND RALES ARE NOW MOSTLY HEARD IN THE UPPER LOBES. BIPAP CIRCUIT SECURE. ABG TO FOLLOW. WILL CONTINUE TO MONITOR.
--- NOTE | 2019-01-02 00:40 | NUR ---
ED Nurse Note: PT was brought in with [facility]. PT appears SOB with labored breathing and deep resporations noted. upon ascultation, pt lungs sound ronchi, bilaterally. immediatly upon arrival, MD Powell orded BiPAP. pt is now satting at 100 percent with BIPAP. Pt is alert and oriented times 0, pt is unresponsive to noxious stimuli. pt also presents with a G tube on RUQ and a folley cath. fall precautions have been taken as the pt is bed ridden. EMS established IV site on L hand.
[2019-01-02] MEDS ORDERED: Acetaminophen 650 MG SUPP RECTAL ONE (00:45)
[2019-01-02 00:51] LABS: BASOPHILS % (AUTO) 1.2 % (0.0-2.0); HEMOGLOBIN 10.3 G/DL (12.0-16.0); LYMPHOCYTES % (AUTO) 4.1 % (20.0-45.0); MEAN CORPUSCULAR VOLUME 95 FL (80-99); MONOCYTES % (AUTO) 10.7 % (1.0-10.0); NEUTROPHILS % (AUTO) 83.9 % (45.0-75.0); PLATELET COUNT 177 K/UL (150-450); RED BLOOD COUNT 3.27 M/UL (4.20-5.40); RED CELL DISTRIBUTION WIDTH 15.8 % (11.6-14.8); WHITE BLOOD COUNT 7.1 K/UL (4.8-10.8)
[2019-01-02 00:58] LABS: INR 0.9 (0.9-1.1)
[2019-01-02 01:03] LABS: BILIRUBIN, URINE NEGATIVE (NEGATIVE); GLUCOSE, URINE (UA) NEGATIVE (NEGATIVE); KETONES,URINE NEGATIVE (NEGATIVE); NITRITE,URINE POSITIVE (NEGATIVE); PH,URINE 9 (4.5-8.0); PROTEIN,URINE 2+ (NEGATIVE); UROBILINOGEN,URINE NORMAL MG/DL (0.0-1.0)
[2019-01-02 01:24] LABS: APPEARANCE,URINE CLOUDY; COLOR,URINE YELLOW; LEUKOCYTE ESTERASE ,URINE 1+ (NEGATIVE)
[2019-01-02] MEDS ORDERED: Ertapenem 1 GM in NS 55 ML IV ONE (01:45)
[2019-01-02 02:00] LABS: ALANINE AMINOTRANSFERASE 15 U/L (12-78); ALBUMIN 2.6 G/DL (3.4-5.0); ALBUMIN/GLOBULIN RATIO 0.5 (1.0-2.7); ALKALINE PHOSPHATASE 84 U/L (46-116); ANION GAP 9 mmol/L (5-15); ASPARTATE AMINO TRANSFERASE 29 U/L (15-37); BILIRUBIN,TOTAL 0.7 MG/DL (0.2-1.0); BLOOD UREA NITROGEN 73 mg/dL (7-18); CALCIUM 9.9 MG/DL (8.5-10.1); CARBON DIOXIDE 26 MMOL/L (21-32); CHLORIDE 105 MMOL/L (98-107); CKMB 1.5 NG/ML (0.0-3.6); CREATINE KINASE 47 U/L (26-308); CREATININE 1.7 MG/DL (0.55-1.30); SODIUM 139 MMOL/L (136-145)
[2019-01-02 02:04] LABS: POTASSIUM 7.2 MMOL/L (3.5-5.1)
[2019-01-02] MEDS ORDERED: Insulin Human Regular 100units/ml 3ml IV ONE ×2 (02:15)
[2019-01-02 03:10] LABS: ANION GAP 10 mmol/L (5-15); BLOOD UREA NITROGEN 57 mg/dL (7-18); CALCIUM 7.6 MG/DL (8.5-10.1); CARBON DIOXIDE 22 MMOL/L (21-32); CHLORIDE 112 MMOL/L (98-107); CREATININE 1.3 MG/DL (0.55-1.30); POTASSIUM 5.3 MMOL/L (3.5-5.1); SODIUM 144 MMOL/L (136-145)
--- NOTE | 2019-01-02 04:45 | NUR ---
RESPIRATORY NOTE: PT. REMAINED STABLE ON CURRENT BIPAP SETTINGS. BREATH SOUND IMPROVED. PT. CONTINUES TO HAVE AN INCREASED HR OF 133 - 140 BPM. BIPAP CIRCUIT SECURE. SPONGE TAPE IN PLACE. NO FACIAL WOUNDS. NO S/S OF RESPIRATORY DISTRESS NOTED AT THIS TIME.
--- NOTE | 2019-01-02 05:35 | NUR ---
ED Nurse Note: PT report given to SUMI DYKES from SDU. pt vital signs, status and condition has been reported. pt is stable for transfer as per ASHLIE Powell.
--- NOTE | 2019-01-02 06:30 | NUR ---
NURSE NOTES: Pt arrived to Floor at 0600, report received from DONIS Meraz. Pt A/Ox0. equipment monitor phototypesetting shows ST @ 130's, otherwise VSS. Pt currently on Bipap 09/14 @ 70%. Tolerating well. Pt has a GT present on her upper quadrant. Vera cathter present, yet bladder distention noted. Bladder scan was done and over 1000 cc of urine was noted. New vera inserted and 1900 cc's were drained. Saccral wound present, and perianal/buttocks wound noted. Pt has a LH20g and a RW20g present and asymptomatic. at bedside. BEd in lowest positioon bed alarms placed, call light within reach. Will continue to monitor.
[2019-01-02] MEDS ORDERED: Acetaminophen 650mg/20.3ml GT PRN (06:45)
--- NOTE | 2019-01-02 07:15 | NUR ---
NURSE NOTES: RECEIVED PATIENT FROM Meagan BUENO RN. PATIENT IS LYING IN BED, NONVERBAL, UNRESPONSIVE. 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 ON BIPAP 15/5, FIO2 AT 50%. NO SIGNS OF DISTRESS. NPO. NOTED CHAMORRO CONNECTED BAG. NOTED SKIN ALTERATION. IVS ON L HAND G20 AND R WRIST G20, SL. CALL LIGHT WITHIN REACH. BED AT LOWEST POSITION. SIDE RAILS UP. WILL CONTINUE TO MONITOR.
--- NOTE | 2019-01-02 07:21 | NUR ---
RESPIRATORY NOTE: received pt on bipap with settings of 12/5 at 70% fio2. pt is in no apparent resp distress. bilateral diminished b/s heard upon auscultation. foam tape is in place with no redness around facial or neck area. bipap is plugged into red outlet. will cont to monitor.
[2019-01-02] MEDS ORDERED: Isovue-300 100ml vial INJ PRN (09:30)
--- NOTE | 2019-01-02 10:59 | NUR ---
*-* INSURANCE *-* AVAILABLE CLINICALS FAXED TO: [facility] PLEASE FAX THE REVIEW/CLINICAL NCM: [id number] P- [phone]
--- NOTE | 2019-01-02 11:16 | NUR ---
NURSE NOTES: CALLED AND LEFT A MESSAGE TO DR BROWNING RE ELEVATED HR. AWAITING FOR CALL BACK. WILL CONTINUE TO MONITOR.
--- NOTE | 2019-01-02 11:35 | Consultation ---
History of Present Illness General Chief Complaint: Dyspnea/Respdistress Present Illness Allergies: Coded Allergies: No Known Allergies (Unverified , 12/14/18) Medication History Scheduled Ascorbic Acid* (Vitamin C*), 500 MG GT TWICE A DAY, (Reported) Aspirin* (Aspir 81*), 81 MG ORAL DAILY, (Reported) Atorvastatin Calcium* (Atorvastatin Calcium*), 20 MG GT BEDTIME, (Reported) Clopidogrel Bisulfate* (Plavix*), 75 MG GT DAILY, (Reported) Hydralazine Hcl* (Hydralazine Hcl*), 10 MG GT EVERY 6 HOURS, (Reported) Lansoprazole* (Lansoprazole*), 30 MG GT TWICE A DAY, (Reported) Multivitamin With Minerals (Multivitamins With Minerals*), 1 TAB GT DAILY, ( Reported) Potassium Chloride (Potassium Chloride), 20 MEQ GT TWICE A DAY, (Reported) Scheduled PRN Acetaminophen (Tylenol), 650 MG GT EVERY 4 HOURS PRN for Mild Pain/Temp > 100.5, (Reported) Hydralazine Hcl* (Hydralazine Hcl*), 25 MG GT EVERY 4 HOURS PRN for For High Blood Pressure, (Reported) Magnesium Hydroxide* (Milk Of Magnesia*), 30 ML GT EVERY 8 HOURS PRN for Constipation, (Reported) Nitroglycerin (Nitrostat), 0.4 MG SL Q5M X3 DOSES PRN for CHEST PAIN, (Reported) Ondansetron* (Zofran*), 4 MG GT Q4HR PRN for Nausea & Vomiting, (Reported) Miscellaneous Medications Bacitracin (Bacitracin*), 1 PACKET TOPIC, (Reported) Gel Base No.41 (Hydrogel), 3,000 GM TOPIC, (Reported) Insulin Lispro (Humalog), 0 SUBQ, (Reported) Petrolatum,White/Lanolin (Vitamin A & D Ointment), 113 GM TP, (Reported) Discontinued Medications Acetaminophen* (Acetaminophen 325MG Tablet*), 650 MG ORAL Q4H PRN for Fever/ Headache/Mild Pain, (Reported) Discontinued Reason: MD discontinued med Acetaminophen* (Acetaminophen*), 325 MG ORAL Q4HR PRN for Mild Pain/Temp > 100.5 , (Reported) Discontinued Reason: MD discontinued med Albuterol Sulfate* (Albuterol Sulfate Hhn*), 3 ML INH Q4H PRN for Shortness of Breath, (Reported) Discontinued Reason: MD discontinued med Amlodipine Besylate* (Amlodipine Besylate*), 10 MG ORAL DAILY, (Reported) Discontinued Reason: MD discontinued med Aspirin Ec* (Aspirin Ec*), 81 MG ORAL DAILY, (Reported) Discontinued Reason: MD discontinued med Atorvastatin Calcium* (Atorvastatin Calcium*), 20 MG ORAL BEDTIME, (Reported) Discontinued Reason: MD discontinued med Clonazepam* (Klonopin*), 0.5 MG ORAL BID, (Reported) Discontinued Reason: MD discontinued med Clonidine Hcl* (Catapres*), 0.1 MG ORAL EVERY 4 HOURS PRN for For High Blood Pressure, (Reported) Discontinued Reason: MD discontinued med Ferrous Sulfate (Ferrousul), 325 MG GT, (Reported) Discontinued Reason: MD discontinued med Insulin Lispro (Humalog), 0 SUBQ, (Reported) Discontinued Reason: MD discontinued med Magnesium Hydroxide* (Milk Of Magnesia*), 30 ML ORAL DAILY PRN for Constipation, (Reported) Discontinued Reason: MD discontinued med Metoprolol Tartrate* (Metoprolol Tartrate*), 25 MG ORAL EVERY 12 HOURS, ( Reported) Discontinued Reason: MD discontinued med Multivit-Min/Iron Fum/Folic AC (Vvrim-Xahifti-Vhryppla Tablet), 1 EACH PO DAILY, (Reported) Discontinued Reason: MD discontinued med Nitroglycerin (Nitroglycerin), 0.4 MG PO, (Reported) Discontinued Reason: MD discontinued med Nitroglycerin (Nitroglycerin Patch), 1 EACH TD, (Reported) Discontinued Reason: MD discontinued med Ondansetron* (Zofran*), 4 MG ORAL Q4HR PRN for Nausea & Vomiting, (Reported) Discontinued Reason: MD discontinued med Potassium Chloride* (K-Dur*), 20 MEQ ORAL DAILY, (Reported) Discontinued Reason: MD discontinued med Quetiapine Fumarate* (Seroquel*), 25 MG ORAL BID, (Reported) Discontinued Reason: MD discontinued med Sennosides (Senna), 8.6 MG PO QHS, (Reported) Discontinued Reason: MD discontinued med [lispro ss], (Reported) Discontinued Reason: MD discontinued med [mylanta max strength], 15 ML PO Q6HR PRN for dyspepsia, (Reported) Discontinued Reason: MD discontinued med Patient History Healthcare decision maker Resuscitation status Advanced Directive on File Physical Exam Last 24 Hour Vital Signs Date Time Temp Pulse Resp B/P (MAP) Pulse Ox O2 Delivery O2 Flow Rate FiO2 01/02/19 10:58 110 17 100 Full Face 40 01/02/19 08:52 98.7 106 18 115/67 (83) 100 01/02/19 08:36 105 14 100 Full Face 40 01/02/19 08:00 Bi-pap 01/02/19 08:00 111 01/02/19 08:00 40 01/02/19 07:17 102 18 99 Full Face 50 01/02/19 05:38 Bi-pap 01/02/19 05:34 98.8 140 23 150/68 100 Bi-pap 15.0 70 01/02/19 05:27 98.8 140 23 150/68 100 Bi-pap 15.0 70 01/02/19 04:45 140 18 100 Full Face 70 01/02/19 04:33 98.8 137 21 127/67 100 Bi-pap 15.0 70 01/02/19 03:34 98.8 134 21 137/74 100 Bi-pap 15.0 100 01/02/19 02:45 133 19 100 Full Face 70 01/02/19 02:40 98.8 137 24 107/49 100 Bi-pap 15.0 100 01/02/19 01:51 100.1 133 25 140/73 100 Bi-pap 15.0 100 01/02/19 01:46 133 24 100 Full Face 70 01/02/19 01:27 100.1 01/02/19 00:52 155 25 100 Bi-pap 100 01/02/19 00:40 101.3 150 27 124/73 100 Bi-pap 15.0 100 01/02/19 00:33 160 27 100 Full Face 100 01/02/19 00:33 160 27 Bi-pap 100 01/02/19 00:33 160 27 100 Bi-pap 100 01/02/19 00:28 150 24 Bi-pap 15.0 100 01/02/19 00:08 101.3 148 24 124/73 100 Non-Rebreather 15.0 Intake and Output 01/01/19 01/02/19 19:00 07:00 Output Total 1900 ml Balance -1900 ml Output Urine Total 1900 ml # Voids 1 # Bowel Movements 1 Laboratory Tests Test 01/02/19 00:15 01/02/19 00:40 01/02/19 00:44 01/02/19 01:19 White Blood Count 7.1 K/UL (4.8-10.8) Red Blood Count 3.27 M/UL (4.20-5.40) L Hemoglobin 10.3 G/DL (12.0-16.0) L Hematocrit 31.0 % (37.0-47.0) L Mean Corpuscular Volume 95 FL (80-99) Mean Corpuscular Hemoglobin 31.4 PG (27.0-31.0) H Mean Corpuscular Hemoglobin Concent 33.2 G/DL (32.0-36.0) Red Cell Distribution Width 15.8 % (11.6-14.8) H Platelet Count 177 K/UL (150-450) Mean Platelet Volume 7.9 FL (6.5-10.1) Neutrophils (%) (Auto) 83.9 % (45.0-75.0) H Lymphocytes (%) (Auto) 4.1 % (20.0-45.0) L Monocytes (%) (Auto) 10.7 % (1.0-10.0) H Eosinophils (%) (Auto) 0.0 % (0.0-3.0) Basophils (%) (Auto) 1.2 % (0.0-2.0) Prothrombin Time 10.0 SEC (9.30-11.50) Prothromb Time International Ratio 0.9 (0.9-1.1) Activated Partial Thromboplast Time 29 SEC (23-33) Troponin I 0.213 ng/mL (0.000-0.056) Lactic Acid Level 2.60 mmol/L (0.4-2.0) H Urine Color Yellow Urine Appearance Cloudy Urine pH 9 (4.5-8.0) Urine Specific [place] 1.015 (1.005-1.035) Urine Protein 2+ (NEGATIVE) H Urine Glucose (UA) Negative (NEGATIVE) Urine Ketones Negative (NEGATIVE) Urine Blood 1+ (NEGATIVE) H Urine Nitrite Positive (NEGATIVE) H Urine Bilirubin Negative (NEGATIVE) Urine Urobilinogen Normal MG/DL (0.0-1.0) Urine Leukocyte Esterase 1+ (NEGATIVE) H Urine RBC 0-2 /HPF (0 - 2) Urine WBC 0-2 /HPF (0 - 2) Urine Squamous Epithelial Cells Few /LPF (NONE/OCC) Urine Calcium Phosphate Crystals /LPF (NONE) Urine Triple Phosphate Crystals Many /LPF (NONE) H Urine Amorphous Sediment Many /LPF (NONE) H Urine Bacteria Many /HPF (NONE) H Arterial Blood pH 7.323 (7.350-7.450) Arterial Blood Partial Pressure CO2 48.5 mmHg (35.0-45.0) H Arterial Blood Partial Pressure O2 378.1 mmHg (75.0-100.0) H Arterial Blood HCO3 24.6 mmol/L (22.0-26.0) Arterial Blood Oxygen Saturation 99.4 % (95-100) Arterial Blood Base Excess -1.7 (-2-2) Renny Test Positive Test 01/02/19 01:23 01/02/19 02:25 01/02/19 02:37 Sodium Level 139 MMOL/L (136-145) 144 MMOL/L (136-145) Potassium Level 7.2 MMOL/L (3.5-5.1) *H 5.3 MMOL/L (3.5-5.1) H Chloride Level 105 MMOL/L (98-107) 112 MMOL/L (98-107) H Carbon Dioxide Level 26 MMOL/L (21-32) 22 MMOL/L (21-32) Anion Gap 9 mmol/L (5-15) 10 mmol/L (5-15) Blood Urea Nitrogen 73 mg/dL (7-18) H 57 mg/dL (7-18) H Creatinine 1.7 MG/DL (0.55-1.30) H 1.3 MG/DL (0.55-1.30) Estimat Glomerular Filtration Rate mL/min (>60) mL/min (>60) Glucose Level 249 MG/DL (74-106) H 192 MG/DL (74-106) H Calcium Level 9.9 MG/DL (8.5-10.1) 7.6 MG/DL (8.5-10.1) #L Total Bilirubin 0.7 MG/DL (0.2-1.0) Aspartate Amino Transf (AST/SGOT) 29 U/L (15-37) Alanine Aminotransferase (ALT/SGPT) 15 U/L (12-78) Alkaline Phosphatase 84 U/L (46-116) Total Creatine Kinase 47 U/L (26-308) Creatine Kinase MB 1.5 NG/ML (0.0-3.6) Creatine Kinase MB Relative Index 3.1 Total Protein 8.3 G/DL (6.4-8.2) H Albumin 2.6 G/DL (3.4-5.0) L Globulin 5.7 g/dL Albumin/Globulin Ratio 0.5 (1.0-2.7) L Lactic Acid Level 1.70 mmol/L (0.66-2.22) Height (Feet): 5 Height (Inches): 5.00 Weight (Pounds): 145 Medications Current Medications Medications (Trade) Dose Ordered Sig/Laure Route PRN Reason Start Time Stop Time Status Last Admin Dose Admin Acetaminophen (Tylenol) 650 mg Q4H PRN GT Mild Pain/Temp > 100.5 01/02/19 06:45 02/01/19 06:44 Barium Sulfate (Readi-Cat 2) 450 ml NOW PRN ORAL Radiology Procedure 01/02/19 09:30 01/04/19 09:20 Cefepime HCl 1 gm/ Dextrose 55 ml @ 110 mls/hr Q24H IVPB 01/02/19 13:00 01/09/19 12:59 Dextrose (Dextrose 50%) 25 ml Q30M PRN IV Hypoglycemia 01/02/19 07:00 02/01/19 06:59 Dextrose (Dextrose 50%) 50 ml Q30M PRN IV Hypoglycemia 01/02/19 07:00 02/01/19 06:59 Iopamidol (Isovue-300 100ml) 100 ml NOW PRN INJ Radiology Procedure 01/02/19 09:30 01/04/19 09:29 Pantoprazole (Protonix) 40 mg DAILY ORAL 01/02/19 09:00 02/01/19 08:59 01/02/19 09:14 Assessment/Plan Assessment/Plan Hematology/Oncology Consultation Requesting MD: Yi Asencio M.D. Date of Service: 01/02/19 Reason for consultation: Pancytopenia, dvt with ivc filter HISTORY OF PRESENT ILLNESS: 78-year-old Yi female with a history of prior CVA, encephalopathy, dysphagia , G-tube, hypertension, diabetes, and pancytopenia, recently discharged from the hospital, now readmitted with UTI and urosepsis in addition to ams, I have seen her before. She also has a history of DVT, status post IVC filter. Hematology/Oncology was consulted for Leukopenia, Anemia and Thrombocytopenia. White count 2.7, hemoglobin 10.3, and platelet count 166k. Imaging has been reviewed. NOn-verbal. PAST MEDICAL HISTORY: Encephalopathy, CVA, DVT, status post IVC filter, Pancytopenia, Hypertension, Hyperlipidemia, Diabetes, Encephalopathy. PAST SURGICAL HISTORY: IVC filter and G-tube ALLERGIES: No known drug allergies. MEDICATIONS: Prior to admission medications, reviewed. Current medications, reviewed. SOCIAL HISTORY: No known tobacco, alcohol, or drug use. FAMILY HISTORY: Noncontributory. REVIEW OF SYSTEMS: Unobtainable. PHYSICAL EXAMINATION: VITAL SIGNS: Temperature 97.9, pulse, blood pressure 142/67, and respiratory rate 12. ++ bipap GENERAL: She is an elderly demented female, in no acute distress. Nonverbal. HEENT: Normocephalic and atraumatic. Oropharynx is clear. Moist mucous membranes. NECK: Supple without lymphadenopathy. CHEST: Clear, but rales at the bases. HEART: Regular rate and rhythm. ABDOMEN: Soft, nontender, and nondistended. ++ peg EXTREMITIES: No cyanosis, clubbing or edema. Laboratory Tests Test 01/02/19 00:15 01/02/19 00:40 01/02/19 00:44 01/02/19 01:19 White Blood Count 7.1 K/UL (4.8-10.8) Red Blood Count 3.27 M/UL (4.20-5.40) L Hemoglobin 10.3 G/DL (12.0-16.0) L Hematocrit 31.0 % (37.0-47.0) L Mean Corpuscular Volume 95 FL (80-99) Mean Corpuscular Hemoglobin 31.4 PG (27.0-31.0) H Mean Corpuscular Hemoglobin Concent 33.2 G/DL (32.0-36.0) Red Cell Distribution Width 15.8 % (11.6-14.8) H Platelet Count 177 K/UL (150-450) Mean Platelet Volume 7.9 FL (6.5-10.1) Neutrophils (%) (Auto) 83.9 % (45.0-75.0) H Lymphocytes (%) (Auto) 4.1 % (20.0-45.0) L Monocytes (%) (Auto) 10.7 % (1.0-10.0) H Eosinophils (%) (Auto) 0.0 % (0.0-3.0) Basophils (%) (Auto) 1.2 % (0.0-2.0) Prothrombin Time 10.0 SEC (9.30-11.50) Prothromb Time International Ratio 0.9 (0.9-1.1) Activated Partial Thromboplast Time 29 SEC (23-33) Troponin I 0.213 ng/mL (0.000-0.056) Lactic Acid Level 2.60 mmol/L (0.4-2.0) H Urine Color Yellow Urine Appearance Cloudy Urine pH 9 (4.5-8.0) Urine Specific [place] 1.015 (1.005-1.035) Urine Protein 2+ (NEGATIVE) H Urine Glucose (UA) Negative (NEGATIVE) Urine Ketones Negative (NEGATIVE) Urine Blood 1+ (NEGATIVE) H Urine Nitrite Positive (NEGATIVE) H Urine Bilirubin Negative (NEGATIVE) Urine Urobilinogen Normal MG/DL (0.0-1.0) Urine Leukocyte Esterase 1+ (NEGATIVE) H Urine RBC 0-2 /HPF (0 - 2) Urine WBC 0-2 /HPF (0 - 2) Urine Squamous Epithelial Cells Few /LPF (NONE/OCC) Urine Calcium Phosphate Crystals /LPF (NONE) Urine Triple Phosphate Crystals Many /LPF (NONE) H Urine Amorphous Sediment Many /LPF (NONE) H Urine Bacteria Many /HPF (NONE) H Arterial Blood pH 7.323 (7.350-7.450) Arterial Blood Partial Pressure CO2 48.5 mmHg (35.0-45.0) H Arterial Blood Partial Pressure O2 378.1 mmHg (75.0-100.0) H Arterial Blood HCO3 24.6 mmol/L (22.0-26.0) Arterial Blood Oxygen Saturation 99.4 % (95-100) Arterial Blood Base Excess -1.7 (-2-2) Renny Test Positive Test 01/02/19 01:23 01/02/19 02:25 01/02/19 02:37 Sodium Level 139 MMOL/L (136-145) 144 MMOL/L (136-145) Potassium Level 7.2 MMOL/L (3.5-5.1) *H 5.3 MMOL/L (3.5-5.1) H Chloride Level 105 MMOL/L (98-107) 112 MMOL/L (98-107) H Carbon Dioxide Level 26 MMOL/L (21-32) 22 MMOL/L (21-32) Anion Gap 9 mmol/L (5-15) 10 mmol/L (5-15) Blood Urea Nitrogen 73 mg/dL (7-18) H 57 mg/dL (7-18) H Creatinine 1.7 MG/DL (0.55-1.30) H 1.3 MG/DL (0.55-1.30) Estimat Glomerular Filtration Rate mL/min (>60) mL/min (>60) Glucose Level 249 MG/DL (74-106) H 192 MG/DL (74-106) H Calcium Level 9.9 MG/DL (8.5-10.1) 7.6 MG/DL (8.5-10.1) #L Total Bilirubin 0.7 MG/DL (0.2-1.0) Aspartate Amino Transf (AST/SGOT) 29 U/L (15-37) Alanine Aminotransferase (ALT/SGPT) 15 U/L (12-78) Alkaline Phosphatase 84 U/L (46-116) Total Creatine Kinase 47 U/L (26-308) Creatine Kinase MB 1.5 NG/ML (0.0-3.6) Creatine Kinase MB Relative Index 3.1 Total Protein 8.3 G/DL (6.4-8.2) H Albumin 2.6 G/DL (3.4-5.0) L Globulin 5.7 g/dL Albumin/Globulin Ratio 0.5 (1.0-2.7) L Lactic Acid Level 1.70 mmol/L (0.66-2.22) Assessment/Plan: # Pancytopenia (as was present on last admision), likely related to septicemia, appears new baseline 50-70k, several causes possible including viral, medication or intrabone marrow related. Now has a uti. Does have a splenomegaly. --> Cont to monitor plt count for improvement --> US abd: Mild left hydronephrosis. Possible left renal calyceal calculi. Negative for gallstones or dilated ducts Debris noted within the bladder --> Hep panel and HIV are both negative --> given extremely poor condition do not recommend a bone marrow biopsy, have discussed with family 08/01/18 with --> will rediscuss once sepsis resolves --> transfuse if plt <20k --> abd us has been re-ordered to check for cirrhosis # Anemia of chronic disease. Multifactorial. Since admission Hgb has consistently remained between 8-9. --> Cont to monitor for stability --> Hgb goal above 7. Transfuse prn. --> IV iron completed prior admission and feritin is elevated # DVT of the left leg s/p IVC filter in 07/2018-- superficial femoral vein which is a deep vein, new onset, has not had these symptoms before. Lower hgb and plts --> given decreased h/h, low thrombocytopenia, do not recommend anticoag --> appreciate pulm recs --> smear reviewed and no schistocytes noted # Dehydration. IVF has been administered --> improved # DM OOC --> A1C goal <7 --> Cont on insulin # Bacteremia/prior UTI. --> ID is following. Appreciate recs. --> Pt on IV abx. --> Cultures surveillance as per id # PEG placement s/p 08/04/18 The timing of this note does not necessarily reflect the time of the patient was seen. Greatly appreciate consultation! Dewayne Gayle MD Jan 02, 2019 11:35
--- NOTE | 2019-01-02 11:44 | NUR ---
NURSE NOTES: CALLED DR BROWNING'S OFFICE FOR 2ND TIME RE HR. AWAITING FOR B CALL BACK. WILL CONTINUE TO MONITOR.
--- NOTE | 2019-01-02 12:11 | GI Initial Consult Note ---
History of Present Illness General Date patient seen: Jan 02, 2019 Time patient seen: 12:06 Reason for Hospitalization: Dyspnea/Respdistress Referring physician: KARLA BUSTAMANTE Reason for Consultation: ANEMIA Present Illness HPI This is a 78-year-old [place] female from [facility]. She presents with rest or distress and altered mental status. She has multiple medical history including recent admission for CVA. She also has high blood pressure, diabetes , feeding tube. She was noted to have altered mental status tonight. Also with hypoxia with respiratory distress. At baseline she is opening her eyes. Now she will even do that. Per EMS she was very hypoxic. They put her on a nonrebreather and brought her here. Unable to get any other history from this patient. GI consulted for anemia, G-tube management. ROS limited, unable to obtain any history from patient. Patient seen, no apparent distress. Patient is G-tube dependent. Labs reviewed; hemoglobin 10.3, potassium 5.3. No transaminitis noted. Home Meds Reported Medications Petrolatum,White/Lanolin (VITAMIN A & D OINTMENT) 113 Gm Oint...g., 113 GM TP, GM 01/02/19 Ascorbic Acid* (VITAMIN C*) 500 Mg Tablet, 500 MG GT TWICE A DAY, TAB 01/02/19 Acetaminophen (Tylenol) 325 Mg Capsule, 650 MG GT EVERY 4 HOURS PRN for Mild Pain/Temp > 100.5, CAP 01/02/19 Potassium Chloride (Potassium Chloride) 20 Meq/15 Ml Liquid, 20 MEQ GT TWICE A DAY, ML 01/02/19 Ondansetron* (ZOFRAN*) 4 Mg Tablet, 4 MG GT Q4HR PRN for Nausea & Vomiting, TAB 01/02/19 Nitroglycerin (NITROSTAT) 0.4 Mg Tab.subl, 0.4 MG SL Q5M X3 DOSES PRN for CHEST PAIN, #25 TAB 0 Refills 01/02/19 Multivitamin With Minerals (MULTIVITAMINS WITH MINERALS*) 1 Each Tablet, 1 TAB GT DAILY, TAB 01/02/19 Magnesium Hydroxide* (MILK OF MAGNESIA*) 400 Mg/5 Ml Oral.susp, 30 ML GT EVERY 8 HOURS PRN for Constipation, ML 01/02/19 Lansoprazole* (LANSOPRAZOLE*) 30 Mg Capsule.dr, 30 MG GT TWICE A DAY, CAP 01/02/19 Insulin Lispro (HUMALOG) 100 Unit/1 Ml Insuln.pen, 0 SUBQ, #1 EA 0 Refills 01/02/19 Gel Base No.41 (HYDROGEL) 3,000 Gm Gel..gram., 3000 GM TOPIC, GM 01/02/19 Hydralazine Hcl* (HYDRALAZINE HCL*) 25 Mg Tablet, 25 MG GT EVERY 4 HOURS PRN for For High Blood Pressure, TAB 0 Refills 01/02/19 Hydralazine Hcl* (HYDRALAZINE HCL*) 10 Mg Tablet, 10 MG GT EVERY 6 HOURS, TAB 01/02/19 Clopidogrel Bisulfate* (PLAVIX*) 75 Mg Tablet, 75 MG GT DAILY, TAB 01/02/19 Bacitracin (BACITRACIN*) 1 Each Packet, 1 PACKET TOPIC, #30 PACKET 0 Refills 01/02/19 Atorvastatin Calcium* (ATORVASTATIN CALCIUM*) 20 Mg Tablet, 20 MG GT BEDTIME, TAB 01/02/19 Aspirin* (ASPIR 81*) 81 Mg Tablet.dr, 81 MG ORAL DAILY, TAB 01/02/19 Discontinued Reported Medications Acetaminophen* (ACETAMINOPHEN*) 160 Mg/5 Ml Solution, 325 MG ORAL Q4HR PRN for Mild Pain/Temp > 100.5, ML 12/14/18 Nitroglycerin (NITROGLYCERIN PATCH) 1 Each Patch.td24, 1 EACH TD, PATCH 12/14/18 Nitroglycerin (NITROGLYCERIN) 2.5 Mg Capsule.er, 0.4 MG PO, CAP 12/14/18 Metoprolol Tartrate* (METOPROLOL TARTRATE*) 25 Mg Tablet, 25 MG ORAL EVERY 12 HOURS, TAB 12/14/18 Albuterol Sulfate* (ALBUTEROL SULFATE HHN*) 2.5 Mg/3 Ml Vial.neb, 3 ML INH Q4H PRN for Shortness of Breath, EA 12/14/18 Insulin Lispro (HUMALOG) 100 Unit/1 Ml Vial, 0 SUBQ, #1 UNITS 0 Refills 12/01/18 Ferrous Sulfate (FERROUSUL) 325 Mg Tablet, 325 MG GT, TAB 12/01/18 Ondansetron* (ZOFRAN*) 4 Mg Tablet, 4 MG ORAL Q4HR PRN for Nausea & Vomiting, TAB 07/26/18 Acetaminophen* (ACETAMINOPHEN 325MG TABLET*) 325 Mg Tablet, 650 MG ORAL Q4H PRN for Fever/Headache/Mild Pain, TAB 07/26/18 Quetiapine Fumarate* (SEROQUEL*) 25 Mg Tablet, 25 MG ORAL BID, TAB 07/26/18 Sennosides (SENNA) 8.6 Mg Tablet, 8.6 MG PO QHS, TAB 07/26/18 Potassium Chloride* (K-DUR*) 20 Meq Tab.er.prt, 20 MEQ ORAL DAILY, #7 TAB 0 Refills 07/26/18 [mylanta max strength] No Conflict Check, 15 ML PO Q6HR PRN for dyspepsia 07/26/18 Multivit-Min/Iron Fum/Folic AC (Flnoq-Enyocxh-Dhrrgewn Tablet) 1 Each Tablet, 1 EACH PO DAILY, TAB 07/26/18 Magnesium Hydroxide* (MILK OF MAGNESIA*) 2,400 Mg/10 Ml Oral.susp, 30 ML ORAL DAILY PRN for Constipation, ML 07/26/18 Clonazepam* (KLONOPIN*) 0.5 Mg Tablet, 0.5 MG ORAL BID, #15 TAB 0 Refills 07/26/18 [lispro ss] No Conflict Check 07/26/18 Clonidine Hcl* (CATAPRES*) 0.1 Mg Tablet, 0.1 MG ORAL EVERY 4 HOURS PRN for For High Blood Pressure, TAB 07/26/18 Atorvastatin Calcium* (ATORVASTATIN CALCIUM*) 20 Mg Tablet, 20 MG ORAL BEDTIME, TAB 07/26/18 Aspirin Ec* (ASPIRIN EC*) 81 Mg Tablet.dr, 81 MG ORAL DAILY, TAB 07/26/18 Amlodipine Besylate* (AMLODIPINE BESYLATE*) 10 Mg Tablet, 10 MG ORAL DAILY, TAB 07/26/18 Med list reviewed/reconciled: Yes Allergies: Coded Allergies: No Known Allergies (Unverified , 12/14/18) Patient History Limited by: medical condition History Provided By: Medical Record PM Narrative Past Medical History: No History, Except For Hx Hypertension: Yes - Hyperlipidemia Hx Diabetes: Yes Hx Cancer: No Hx Gastrointestinal Problems: Yes - G-tube History Of Psychiatric Problem: Yes - Unspecified Hx Neurological Problems: Yes - Metabolic encephalopathy; Dementia; Muscle weakness; Hemiplagia, Hemiparesi Hx Cerebrovascular Accident: Yes Hx Dementia: Yes Hx Weakness: Yes Social History: Denies: smoking, alcohol use, drug use, other Review of Systems All Other Systems: limited Physical Exam Vital Signs Date Time Temp Pulse Resp B/P (MAP) Pulse Ox O2 Delivery O2 Flow Rate FiO2 01/02/19 00:08 101.3 148 24 124/73 100 Non-Rebreather 15.0 01/02/19 00:28 100 Sp02 EP Interpretation: reviewed, normal Labs Laboratory Tests Test 01/02/19 00:15 01/02/19 00:40 01/02/19 00:44 01/02/19 01:19 White Blood Count 7.1 K/UL (4.8-10.8) Red Blood Count 3.27 M/UL (4.20-5.40) L Hemoglobin 10.3 G/DL (12.0-16.0) L Hematocrit 31.0 % (37.0-47.0) L Mean Corpuscular Volume 95 FL (80-99) Mean Corpuscular Hemoglobin 31.4 PG (27.0-31.0) H Mean Corpuscular Hemoglobin Concent 33.2 G/DL (32.0-36.0) Red Cell Distribution Width 15.8 % (11.6-14.8) H Platelet Count 177 K/UL (150-450) Mean Platelet Volume 7.9 FL (6.5-10.1) Neutrophils (%) (Auto) 83.9 % (45.0-75.0) H Lymphocytes (%) (Auto) 4.1 % (20.0-45.0) L Monocytes (%) (Auto) 10.7 % (1.0-10.0) H Eosinophils (%) (Auto) 0.0 % (0.0-3.0) Basophils (%) (Auto) 1.2 % (0.0-2.0) Prothrombin Time 10.0 SEC (9.30-11.50) Prothromb Time International Ratio 0.9 (0.9-1.1) Activated Partial Thromboplast Time 29 SEC (23-33) Troponin I 0.213 ng/mL (0.000-0.056) Lactic Acid Level 2.60 mmol/L (0.4-2.0) H Urine Color Yellow Urine Appearance Cloudy Urine pH 9 (4.5-8.0) Urine Specific [place] 1.015 (1.005-1.035) Urine Protein 2+ (NEGATIVE) H Urine Glucose (UA) Negative (NEGATIVE) Urine Ketones Negative (NEGATIVE) Urine Blood 1+ (NEGATIVE) H Urine Nitrite Positive (NEGATIVE) H Urine Bilirubin Negative (NEGATIVE) Urine Urobilinogen Normal MG/DL (0.0-1.0) Urine Leukocyte Esterase 1+ (NEGATIVE) H Urine RBC 0-2 /HPF (0 - 2) Urine WBC 0-2 /HPF (0 - 2) Urine Squamous Epithelial Cells Few /LPF (NONE/OCC) Urine Calcium Phosphate Crystals /LPF (NONE) Urine Triple Phosphate Crystals Many /LPF (NONE) H Urine Amorphous Sediment Many /LPF (NONE) H Urine Bacteria Many /HPF (NONE) H Arterial Blood pH 7.323 (7.350-7.450) Arterial Blood Partial Pressure CO2 48.5 mmHg (35.0-45.0) H Arterial Blood Partial Pressure O2 378.1 mmHg (75.0-100.0) H Arterial Blood HCO3 24.6 mmol/L (22.0-26.0) Arterial Blood Oxygen Saturation 99.4 % (95-100) Arterial Blood Base Excess -1.7 (-2-2) Renny Test Positive Test 01/02/19 01:23 01/02/19 02:25 01/02/19 02:37 Sodium Level 139 MMOL/L (136-145) 144 MMOL/L (136-145) Potassium Level 7.2 MMOL/L (3.5-5.1) *H 5.3 MMOL/L (3.5-5.1) H Chloride Level 105 MMOL/L (98-107) 112 MMOL/L (98-107) H Carbon Dioxide Level 26 MMOL/L (21-32) 22 MMOL/L (21-32) Anion Gap 9 mmol/L (5-15) 10 mmol/L (5-15) Blood Urea Nitrogen 73 mg/dL (7-18) H 57 mg/dL (7-18) H Creatinine 1.7 MG/DL (0.55-1.30) H 1.3 MG/DL (0.55-1.30) Estimat Glomerular Filtration Rate mL/min (>60) mL/min (>60) Glucose Level 249 MG/DL (74-106) H 192 MG/DL (74-106) H Calcium Level 9.9 MG/DL (8.5-10.1) 7.6 MG/DL (8.5-10.1) #L Total Bilirubin 0.7 MG/DL (0.2-1.0) Aspartate Amino Transf (AST/SGOT) 29 U/L (15-37) Alanine Aminotransferase (ALT/SGPT) 15 U/L (12-78) Alkaline Phosphatase 84 U/L (46-116) Total Creatine Kinase 47 U/L (26-308) Creatine Kinase MB 1.5 NG/ML (0.0-3.6) Creatine Kinase MB Relative Index 3.1 Total Protein 8.3 G/DL (6.4-8.2) H Albumin 2.6 G/DL (3.4-5.0) L Globulin 5.7 g/dL Albumin/Globulin Ratio 0.5 (1.0-2.7) L Ferritin Pending Lactic Acid Level 1.70 mmol/L (0.66-2.22) General Appearance: no apparent distress Head: normocephalic EENT: PERRL/EOMI, normal ENT inspection Neck: supple Respiratory: normal breath sounds, no respiratory distress Cardiovascular: normal rate Gastrointestinal: normal inspection, non tender, soft, normal bowel sounds, non -distended Rectal: deferred Genitourinary: no CVA tenderness Musculoskeletal: normal inspection, back normal Neurologic: normal inspection, alert, responsive Skin: normal inspection, normal color, no rash, warm/dry, palpation normal, well hydrated Lymphatic: normal inspection, no adenopathy Current Medications Current Medications Medications (Trade) Dose Ordered Sig/Laure Route PRN Reason Start Time Stop Time Status Last Admin Dose Admin Acetaminophen (Tylenol) 650 mg Q4H PRN GT Mild Pain/Temp > 100.5 01/02/19 06:45 02/01/19 06:44 Barium Sulfate (Readi-Cat 2) 450 ml NOW PRN ORAL Radiology Procedure 01/02/19 09:30 01/04/19 09:20 Cefepime HCl 1 gm/ Dextrose 55 ml @ 110 mls/hr Q24H IVPB 01/02/19 13:00 01/09/19 12:59 Dextrose (Dextrose 50%) 25 ml Q30M PRN IV Hypoglycemia 01/02/19 07:00 02/01/19 06:59 Dextrose (Dextrose 50%) 50 ml Q30M PRN IV Hypoglycemia 01/02/19 07:00 02/01/19 06:59 Iopamidol (Isovue-300 100ml) 100 ml NOW PRN INJ Radiology Procedure 01/02/19 09:30 01/04/19 09:29 Pantoprazole (Protonix) 40 mg DAILY ORAL 01/02/19 09:00 02/01/19 08:59 01/02/19 09:14 GI: Plan Problems: (1) Feeding by G-tube (2) Altered mental status (3) Malnutrition (4) Thrombocytopenia (5) Anemia (6) Sepsis (7) Dehydration Plan Abdominal US reviewed, see full report. Equivocally slightly coarsened hepatic echogenicity, could indicate hepatocellular disease. Follow-up pulmonary recommendations Okay to start G-tube feedings prn transfusions ppi reglan if needed abx per ID Electrolyte correction Bowel regimen supportive care fu labs Discussed with Dr. Argueta. Thank you for this patient referral, we will follow. The patient was seen and examined at bedside and all new and available data was reviewed in the patients chart. I agree with the above findings, impression and plan. (Patient seen earlier today. Signature stamp does not reflect patient encounter time.). - MD Sherry Graham Anh-Preston CRUZ Jan 02, 2019 12:11
[2019-01-02] MEDS ORDERED: Metoprolol 25mg tab GT SCH ×2 (12:15→12:32)
[2019-01-02] MEDS: Cefepime HCl 1 GM in D5W 55 ML IVPB SCH (12:51)
--- NOTE | 2019-01-02 13:51 | NUR ---
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
--- NOTE | 2019-01-02 15:00 | NUR ---
NURSE NOTES: BROUGHT THE PATIENT DOWN FOR CT SCAN, NOTED HEMATURIA. MD AWARE. WILL CONTINUE TO MONITOR.
--- NOTE | 2019-01-02 15:16 | Consultation ---
Consult Note Consult Note asked to eval for renal failure and HyperKalemia This is a 78-year-old [place] female from [facility]. She presents with rest or distress and altered mental status. She has multiple medical history including recent admission for CVA. She also has high blood pressure, diabetes , feeding tube. She was noted to have altered mental status tonight. Also with hypoxia with respiratory distress. At baseline she is opening her eyes. Now she will even do that. Per EMS she was very hypoxic. They put her on a nonrebreather and brought her here. Unable to get any other history from this patient. No Known Allergies (Unverified , 12/14/18) Past Medical History: No History, Except For Hx Hypertension: Yes - Hyperlipidemia Hx Diabetes: Yes Hx Gastrointestinal Problems: Yes - G-tube History Of Psychiatric Problem: Yes - Unspecified Hx Neurological Problems: Yes - Metabolic encephalopathy; Dementia; Muscle weakness; Hemiplagia, Hemiparesi Hx Cerebrovascular Accident: Yes Hx Dementia: Yes Hx Weakness: Yes examined data reviewed Assessment/Plan Dehydration leading to pre renal azotemia (1) Diabetic nephropathy and proteinuria (2) HyperKalemia Electrolyte imbalance (3) Anemia (4) UTI (urinary tract infection) (5) CAD Hydrate adjust BP and BS K Phos , KCl , MgSo4 IV as needed antibiotics avoid nephrotoxics anemia mac per orders Parvez Bergman MD Jan 02, 2019 15:16
--- NOTE | 2019-01-02 15:40 | Pulmonology Progress Note ---
Assessment/Plan Assessment/Plan Pulmonary Consultation Note Patient is a 78-year-old [place] [facility] [facility] [place] was admitted with distress at rest, hypoxia and altered mental status. Noted to have urinary retention and significant hyperkalemia, now improved. She has multiple medical history including recent admission for CVA. She also has high blood pressure, diabetes, feeding tube. At baseline she opens her eyes. Unable to get any other history from this patient. Allergies: No Known Allergies Past Medical History: Dementia, CVA, Hemiparesis, Weakness, High blood pressure , Diabetes, HL, feeding tube, sacral decubitus ROS: Negative aside from above, limited Physical Exam Vital Signs Noted Date Time Temp Pulse Resp B/P (MAP) Pulse Ox O2 Delivery O2 Flow Rate FiO2 01/02/19 00:08 148 24 124/73 100 Non-Rebreather 15.0 patient with tachycardia and hypoxia General Appearance: severe distress, cachetic, Chronically Ill, Stupor Head: normocephalic, atraumatic Eyes: bilateral eye PERRL, bilateral eye EOMI ENT: dry mucus membranes Neck: supple Respiratory: respiratory distress, decreased breath sounds, accessory muscle use, rhonchi, wheezing Cardiovascular: Normal HS, tachycardia Gastrointestinal: normal bowel sounds, non tender, no mass, no organomegaly, no bruit, non-distended Musculoskeletal: back normal, other - Contracted. 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 Sensitive to Invanz. Patient will be admitted for IV antibiotics. Prognosis poor. EKG: Rate: tachycardiac Rhythm: NSR ST Segments: other - nsst Changes Chest X-Ray no effusion, no pneumothorax, other - Atelectasis. Improved from prior Subjective ROS Limited/Unobtainable: No Allergies: Coded Allergies: No Known Allergies (Unverified , 12/14/18) Objective Last 24 Hour Vital Signs Date Time Temp Pulse Resp B/P (MAP) Pulse Ox O2 Delivery O2 Flow Rate FiO2 01/02/19 13:33 81 100 01/02/19 12:51 129 125/80 01/02/19 12:00 12.0 50 01/02/19 12:00 98.4 129 20 125/80 (95) 100 01/02/19 12:00 Venturi Mask 12.0 01/02/19 12:00 132 01/02/19 10:58 110 17 100 Full Face 40 01/02/19 08:52 98.7 106 18 115/67 (83) 100 01/02/19 08:36 105 14 100 Full Face 40 01/02/19 08:00 Bi-pap 01/02/19 08:00 111 01/02/19 08:00 40 01/02/19 07:17 102 18 99 Full Face 50 01/02/19 05:38 Bi-pap 01/02/19 05:34 98.8 140 23 150/68 100 Bi-pap 15.0 70 01/02/19 05:27 98.8 140 23 150/68 100 Bi-pap 15.0 70 01/02/19 04:45 140 18 100 Full Face 70 01/02/19 04:33 98.8 137 21 127/67 100 Bi-pap 15.0 70 01/02/19 03:34 98.8 134 21 137/74 100 Bi-pap 15.0 100 01/02/19 02:45 133 19 100 Full Face 70 01/02/19 02:40 98.8 137 24 107/49 100 Bi-pap 15.0 100 01/02/19 01:51 100.1 133 25 140/73 100 Bi-pap 15.0 100 01/02/19 01:46 133 24 100 Full Face 70 01/02/19 01:27 100.1 01/02/19 00:52 155 25 100 Bi-pap 100 01/02/19 00:40 101.3 150 27 124/73 100 Bi-pap 15.0 100 01/02/19 00:33 160 27 100 Full Face 100 01/02/19 00:33 160 27 Bi-pap 100 01/02/19 00:33 160 27 100 Bi-pap 100 01/02/19 00:28 150 24 Bi-pap 15.0 100 01/02/19 00:08 101.3 148 24 124/73 100 Non-Rebreather 15.0 Intake and Output 01/01/19 01/02/19 19:00 07:00 Output Total 1900 ml Balance -1900 ml Output Urine Total 1900 ml # Voids 1 # Bowel Movements 1 Laboratory Tests 01/02/19 00:15: White Blood Count 7.1, Red Blood Count 3.27L, Hemoglobin 10.3L, Hematocrit 31.0L , Mean Corpuscular Volume 95, Mean Corpuscular Hemoglobin 31.4H, Mean Corpuscular Hemoglobin Concent 33.2, Red Cell Distribution Width 15.8H, Platelet Count 177, Mean Platelet Volume 7.9, Neutrophils (%) (Auto) 83.9H, Lymphocytes (%) (Auto) 4.1L, Monocytes (%) (Auto) 10.7H, Eosinophils (%) (Auto) 0.0, Basophils (%) (Auto) 1.2, Prothrombin Time 10.0, Prothromb Time International Ratio 0.9, Activated Partial Thromboplast Time 29, Troponin I 0.213H 01/02/19 00:40: Urine Total Protein [Pending], Urine Albumin (%) [Pending], Urine Alpha-1- Globulins (%) [Pending], Urine Nmasm-5-Pkqomdrgo (%) [Pending], Urine Beta- Globulin (%) [Pending], Urine Gamma Globulin (%) [Pending], Ur Protein Electrophoresis M-Francisco [Pending], Urine Protein Electrophoresis Intrp [Pending] , Lactic Acid Level 2.60H, Urine Immunofixation [Pending] 01/02/19 00:44: Urine Color Yellow, Urine Appearance Cloudy, Urine pH 9, Urine Specific [place] 1.015, Urine Protein 2+H, Urine Glucose (UA) Negative, Urine Ketones Negative, Urine Blood 1+H, Urine Nitrite PositiveH, Urine Bilirubin Negative, Urine Urobilinogen Normal, Urine Leukocyte Esterase 1+H, Urine RBC 0-2, Urine WBC 0-2 , Urine Squamous Epithelial Cells Few, Urine Calcium Phosphate Crystals , Urine Triple Phosphate Crystals ManyH, Urine Amorphous Sediment ManyH, Urine Bacteria ManyH 01/02/19 01:19: Arterial Blood pH 7.323L, Arterial Blood Partial Pressure CO2 48.5H, Arterial Blood Partial Pressure O2 378.1H, Arterial Blood HCO3 24.6, Arterial Blood Oxygen Saturation 99.4, Arterial Blood Base Excess -1.7, Renny Test Positive 01/02/19 01:23: Sodium Level 139, Potassium Level 7.2*H, Chloride Level 105, Carbon Dioxide Level 26, Anion Gap 9, Blood Urea Nitrogen 73H, Creatinine 1.7H, Estimat Glomerular Filtration Rate , Glucose Level 249H, Calcium Level 9.9, Total Bilirubin 0.7, Aspartate Amino Transf (AST/SGOT) 29, Alanine Aminotransferase ( ALT/SGPT) 15, Alkaline Phosphatase 84, Total Creatine Kinase 47, Creatine Kinase MB 1.5, Creatine Kinase MB Relative Index 3.1, Total Protein 8.3H, Albumin 2.6L, Globulin 5.7, Albumin/Globulin Ratio 0.5L 01/02/19 02:25: Sodium Level 144, Potassium Level 5.3H, Chloride Level 112H, Carbon Dioxide Level 22, Anion Gap 10, Blood Urea Nitrogen 57H, Creatinine 1.3, Estimat Glomerular Filtration Rate , Glucose Level 192H, Calcium Level 7.6#L, Ferritin 742H 01/02/19 02:37: Lactic Acid Level 1.70 01/02/19 12:30: Albumin/Globulin Ratio [Pending], Total Protein (PEP) [Pending], Albumin (PEP) [ Pending], Globulin (PEP) [Pending], Etqaz-5-Tgnpvyweo [Pending], Alpha-2- Globulins [Pending], Beta Globulins [Pending], Beta Gamma Globulin [Pending], PEP Abnormal Protein Bands [Pending], Protein Electrophoresis Interpret [Pending ] Current Medications Medications (Trade) Dose Ordered Sig/Laure Route PRN Reason Start Time Stop Time Status Last Admin Dose Admin Acetaminophen (Tylenol) 650 mg Q4H PRN GT Mild Pain/Temp > 100.5 01/02/19 06:45 02/01/19 06:44 Barium Sulfate (Readi-Cat 2) 450 ml NOW PRN ORAL Radiology Procedure 01/02/19 09:30 01/04/19 09:20 Cefepime HCl 1 gm/ Dextrose 55 ml @ 110 mls/hr Q24H IVPB 01/02/19 13:00 01/09/19 12:59 01/02/19 12:51 Dextrose (Dextrose 50%) 25 ml Q30M PRN IV Hypoglycemia 01/02/19 07:00 02/01/19 06:59 Dextrose (Dextrose 50%) 50 ml Q30M PRN IV Hypoglycemia 01/02/19 07:00 02/01/19 06:59 Iopamidol (Isovue-300 100ml) 100 ml NOW PRN INJ Radiology Procedure 01/02/19 09:30 01/04/19 09:29 Metoprolol Tartrate (Lopressor) 25 mg Q12HR GT 01/02/19 12:32 02/01/19 12:31 01/02/19 12:51 Pantoprazole (Protonix) 40 mg EVERY 12 HOURS IVP 01/02/19 21:00 02/01/19 20:59 Sodium Chloride 1,000 ml @ 100 mls/hr Q10H IV 01/02/19 15:22 02/01/19 15:21 Valente Camacho MD Jan 02, 2019 15:40
--- NOTE | 2019-01-02 15:52 | NUR ---
NURSE NOTES:WOUND CARE NOTES:Pt presented on admission with full thickness pressure injury R gluteal cleft. Base of wound is moist -viable. Edges adherent to base of wound(L)1cm x (W)0.4cm x (D)0.2cm. Non-blanchable erythema with additional shearing periwound and L gluteal cleft. Erythema with moisture and scattered dark purple areas at base of wound.Non-blanchable erythema without induration periwound.Both heels dry and firm. No other areas of skin concerns noted. Tx.Plan: Cleanse Sacral area with Saline. Apply Triad Paste .Apply Cavilon Skin Barrier Periwound. Cover with Optifoam drsg. Change Q 3 days and prn. Apply Triad Paste to Cleft of buttocks with each perineal care Apply Cavilon Skin Barrier to each heel. Cover each heel with Optifoam drsg .Change every 7 days and prn. AP/THEA mattress overlay. Reposition at least every 2hours or as tolerated. Off-load heels with pillow.
--- NOTE | 2019-01-02 18:00 | NUR ---
NURSE NOTES: PROVIDED OVERLAY MATTRESS. ON 2L NC. SATING AT 100%. NO SIGNS OF DISTRESS. DR WEAVER MADE AWARE. NEW ORDER FOR BIPAP ON PRN. WILL CONTINUE TO MONITOR.
--- NOTE | 2019-01-02 19:12 | NUR ---
HAND-OFF: Report given to Meagan Valencia RN.
--- NOTE | 2019-01-02 20:47 | NUR ---
NURSE NOTES: Received a patient's report from DONIS Zayas.Patient stable disoriented,ST on cardiac technologist,GT intact,f.cath for retention,IV asymptomatic,intact on L/hand G 20 running with 1/2 NS @100 ml/hr,bed secured,call light withina reach,will continue to monitor and follow POC.
[2019-01-02] MEDS: Pantoprazole Inj IVP SCH (21:33)
[2019-01-02] MEDS: Metoprolol 25mg tab GT SCH (21:33)
--- NOTE | 2019-01-02 21:52 | Cardiology Progress Note ---
Subjective Subjective The patient is seen and examined, full consult note will be dictated shortly. Objective Last 24 Hour Vital Signs Date Time Temp Pulse Resp B/P (MAP) Pulse Ox O2 Delivery O2 Flow Rate FiO2 01/02/19 21:33 72 152/70 01/02/19 16:00 Venturi Mask 8.0 01/02/19 16:00 87 01/02/19 16:00 97.6 90 20 146/76 (99) 100 01/02/19 13:33 81 100 01/02/19 12:51 129 125/80 01/02/19 12:00 12.0 50 01/02/19 12:00 98.4 129 20 125/80 (95) 100 01/02/19 12:00 Venturi Mask 12.0 01/02/19 12:00 132 01/02/19 10:58 110 17 100 Full Face 40 01/02/19 08:52 98.7 106 18 115/67 (83) 100 01/02/19 08:36 105 14 100 Full Face 40 01/02/19 08:00 Bi-pap 01/02/19 08:00 111 01/02/19 08:00 40 01/02/19 07:17 102 18 99 Full Face 50 01/02/19 05:38 Bi-pap 01/02/19 05:34 98.8 140 23 150/68 100 Bi-pap 15.0 70 01/02/19 05:27 98.8 140 23 150/68 100 Bi-pap 15.0 70 01/02/19 04:45 140 18 100 Full Face 70 01/02/19 04:33 98.8 137 21 127/67 100 Bi-pap 15.0 70 01/02/19 03:34 98.8 134 21 137/74 100 Bi-pap 15.0 100 01/02/19 02:45 133 19 100 Full Face 70 01/02/19 02:40 98.8 137 24 107/49 100 Bi-pap 15.0 100 01/02/19 01:51 100.1 133 25 140/73 100 Bi-pap 15.0 100 01/02/19 01:46 133 24 100 Full Face 70 01/02/19 01:27 100.1 01/02/19 00:52 155 25 100 Bi-pap 100 01/02/19 00:40 101.3 150 27 124/73 100 Bi-pap 15.0 100 01/02/19 00:33 160 27 100 Full Face 100 01/02/19 00:33 160 27 Bi-pap 100 01/02/19 00:33 160 27 100 Bi-pap 100 01/02/19 00:28 150 24 Bi-pap 15.0 100 01/02/19 00:08 101.3 148 24 124/73 100 Non-Rebreather 15.0 Intake and Output 01/01/19 01/02/19 19:00 07:00 Output Total 1900 ml Balance -1900 ml Output Urine Total 1900 ml # Voids 1 # Bowel Movements 1 Laboratory Tests Test 01/02/19 00:15 01/02/19 00:40 01/02/19 00:44 01/02/19 01:19 White Blood Count 7.1 K/UL (4.8-10.8) Red Blood Count 3.27 M/UL (4.20-5.40) L Hemoglobin 10.3 G/DL (12.0-16.0) L Hematocrit 31.0 % (37.0-47.0) L Mean Corpuscular Volume 95 FL (80-99) Mean Corpuscular Hemoglobin 31.4 PG (27.0-31.0) H Mean Corpuscular Hemoglobin Concent 33.2 G/DL (32.0-36.0) Red Cell Distribution Width 15.8 % (11.6-14.8) H Platelet Count 177 K/UL (150-450) Mean Platelet Volume 7.9 FL (6.5-10.1) Neutrophils (%) (Auto) 83.9 % (45.0-75.0) H Lymphocytes (%) (Auto) 4.1 % (20.0-45.0) L Monocytes (%) (Auto) 10.7 % (1.0-10.0) H Eosinophils (%) (Auto) 0.0 % (0.0-3.0) Basophils (%) (Auto) 1.2 % (0.0-2.0) Prothrombin Time 10.0 SEC (9.30-11.50) Prothromb Time International Ratio 0.9 (0.9-1.1) Activated Partial Thromboplast Time 29 SEC (23-33) Troponin I 0.213 ng/mL (0.000-0.056) Urine Total Protein Pending Urine Albumin (%) Pending Urine Pfifr-5-Gdpfwsrqu (%) Pending Urine Jkoee-1-Kbnxnvtmm (%) Pending Urine Beta-Globulin (%) Pending Urine Gamma Globulin (%) Pending Ur Protein Electrophoresis M-Francisco Pending Urine Protein Electrophoresis Intrp Pending Lactic Acid Level 2.60 mmol/L (0.4-2.0) H Urine Immunofixation Pending Urine Color Yellow Urine Appearance Cloudy Urine pH 9 (4.5-8.0) Urine Specific [place] 1.015 (1.005-1.035) Urine Protein 2+ (NEGATIVE) H Urine Glucose (UA) Negative (NEGATIVE) Urine Ketones Negative (NEGATIVE) Urine Blood 1+ (NEGATIVE) H Urine Nitrite Positive (NEGATIVE) H Urine Bilirubin Negative (NEGATIVE) Urine Urobilinogen Normal MG/DL (0.0-1.0) Urine Leukocyte Esterase 1+ (NEGATIVE) H Urine RBC 0-2 /HPF (0 - 2) Urine WBC 0-2 /HPF (0 - 2) Urine Squamous Epithelial Cells Few /LPF (NONE/OCC) Urine Calcium Phosphate Crystals /LPF (NONE) Urine Triple Phosphate Crystals Many /LPF (NONE) H Urine Amorphous Sediment Many /LPF (NONE) H Urine Bacteria Many /HPF (NONE) H Arterial Blood pH 7.323 (7.350-7.450) Arterial Blood Partial Pressure CO2 48.5 mmHg (35.0-45.0) H Arterial Blood Partial Pressure O2 378.1 mmHg (75.0-100.0) H Arterial Blood HCO3 24.6 mmol/L (22.0-26.0) Arterial Blood Oxygen Saturation 99.4 % (95-100) Arterial Blood Base Excess -1.7 (-2-2) Renny Test Positive Test 01/02/19 01:23 01/02/19 02:25 01/02/19 02:37 01/02/19 12:30 Sodium Level 139 MMOL/L (136-145) 144 MMOL/L (136-145) Potassium Level 7.2 MMOL/L (3.5-5.1) *H 5.3 MMOL/L (3.5-5.1) H Chloride Level 105 MMOL/L (98-107) 112 MMOL/L (98-107) H Carbon Dioxide Level 26 MMOL/L (21-32) 22 MMOL/L (21-32) Anion Gap 9 mmol/L (5-15) 10 mmol/L (5-15) Blood Urea Nitrogen 73 mg/dL (7-18) H 57 mg/dL (7-18) H Creatinine 1.7 MG/DL (0.55-1.30) H 1.3 MG/DL (0.55-1.30) Estimat Glomerular Filtration Rate mL/min (>60) mL/min (>60) Glucose Level 249 MG/DL (74-106) H 192 MG/DL (74-106) H Calcium Level 9.9 MG/DL (8.5-10.1) 7.6 MG/DL (8.5-10.1) #L Total Bilirubin 0.7 MG/DL (0.2-1.0) Aspartate Amino Transf (AST/SGOT) 29 U/L (15-37) Alanine Aminotransferase (ALT/SGPT) 15 U/L (12-78) Alkaline Phosphatase 84 U/L (46-116) Total Creatine Kinase 47 U/L (26-308) Creatine Kinase MB 1.5 NG/ML (0.0-3.6) Creatine Kinase MB Relative Index 3.1 Total Protein 8.3 G/DL (6.4-8.2) H Albumin 2.6 G/DL (3.4-5.0) L Globulin 5.7 g/dL Albumin/Globulin Ratio 0.5 (1.0-2.7) L Pending Ferritin 742 NG/ML (8-388) H Lactic Acid Level 1.70 mmol/L (0.66-2.22) Total Protein (PEP) Pending Albumin (PEP) Pending Globulin (PEP) Pending Xovmn-5-Zkpvrbcdh Pending Syrwq-4-Ichsefhqf Pending Beta Globulins Pending Beta Gamma Globulin Pending PEP Abnormal Protein Bands Pending Protein Electrophoresis Interpret Pending Deepak Aldana MD Jan 02, 2019 21:52
[2019-01-03] VITALS: BP 151/75
[2019-01-03 04:00] VITALS: BP 155/79
[2019-01-03 05:24] LABS: ALANINE AMINOTRANSFERASE 13 U/L (12-78); ALBUMIN 1.9 G/DL (3.4-5.0); ALBUMIN/GLOBULIN RATIO 0.5 (1.0-2.7); ALKALINE PHOSPHATASE 55 U/L (46-116); ANION GAP 8 mmol/L (5-15); ASPARTATE AMINO TRANSFERASE 25 U/L (15-37); BILIRUBIN,TOTAL 0.4 MG/DL (0.2-1.0); BLOOD UREA NITROGEN 37 mg/dL (7-18); CALCIUM 8.8 MG/DL (8.5-10.1); CARBON DIOXIDE 26 MMOL/L (21-32); CHLORIDE 116 MMOL/L (98-107); CREATININE 0.9 MG/DL (0.55-1.30); POTASSIUM 3.4 MMOL/L (3.5-5.1); SODIUM 150 MMOL/L (136-145)
[2019-01-03 05:35] LABS: IRON 49 ug/dL (50-175); TOTAL IRON BINDING CAPACITY 121 ug/dL (250-450)
[2019-01-03 05:39] LABS: % IRON SATURATION 40 % (15-50)
[2019-01-03 05:41] LABS: PHOSPHORUS 2.8 MG/DL (2.5-4.9)
[2019-01-03 05:46] LABS: CHOLESTEROL 96 MG/DL (< 200); HDL CHOLESTEROL 28 MG/DL (40-60); TRIGLYCERIDES 74 MG/DL (30-150)
--- NOTE | 2019-01-03 06:20 | NUR ---
NURSE NOTES: notified regarding patient's lab such as K 3.4 and Na 150,charge nurse aware,waiting for MD respond,next shift will endorse.
--- NOTE | 2019-01-03 07:25 | NUR ---
HAND-OFF: Report given to DONIS Meraz.Patient stable.
--- NOTE | 2019-01-03 07:27 | NUR ---
NURSE NOTES: Received report from DONIS Quiroga. Patient is resting in bed, in stable condition. NO s/sx of SOB, breathing is even and unlabored. BiPAP is on ordered setting. Observed no presence of pain or discomfort at this time. Bed is in lowest position, brakes engaged. Call light is kept within easy reach. Will continue to monitor patient.
[2019-01-03 08:00] VITALS: BP 140/70
[2019-01-03] MEDS: Metoprolol 25mg tab GT SCH ×2 (08:26→21:15)
[2019-01-03] MEDS: Pantoprazole Inj IVP SCH ×2 (08:26→21:15)
--- NOTE | 2019-01-03 10:10 | NUR ---
NURSE NOTES: 1 unit pRBC transfused. No adverse reaction noted. Will continue to monitor and continue onto 2nd unit pRBC. Addendum: 01/03/19 at 2319 by PAMELA SEO RN TIME WAS 2210 --- NOT 1010
--- NOTE | 2019-01-03 10:56 | NUR ---
RD ASSESSMENT & RECOMMENDATIONS SEE CARE ACTIVITY FOR COMPLETE ASSESSMENT DAILY ESTIMATED NEEDS: Needs based on Pulmonary, wounds/ 52.7kg 25-30 kcals/kg 0890-4969 total kcals 1.25-1.5 g protein/kg 66-78 g total protein 25-30 mL/kg 3294-3527 total fluid mLs NUTRITION DIAGNOSIS: 1) Increased kcal and protein needs R/T wound healing as evidenced by pt w/ wounds including full thickeness wound @ Rt gluteal cleft and nonblanchable erythema @ lt gluteal cleft. 2) Swallowing difficulty R/T dysphagia as evidenced by pt is PEG dep. CURRENT TF:NPO ENTERAL NUTRITION RECOMMENDATIONS: Glucerna 1.2 @ 50ml/hr x 24 hrs to provide 1200ml, 1440kcal, 72g prot, 966ml free water * Initiate TF as medically appropriate * Initiate Glucerna 1.2 @ 30ml/hr x 6hrs, advance 10ml q 4-6 hrs as tolerated to goal rate. * Flush per MD/ HOB over 30 degrees ADDITIONAL RECOMMENDATIONS: * Per SNF: ht=62", wt=98lbs on 11/16/18 Bedscale wt on 01/0283=479aft, possible recent significant wt gain ---> Recalibrate bedscale wt, now w/ P200 mattress, weekly wt monitoring * Wound healing: Add Timbo 1pkt BID * Check lytes daily, replete as needed . .
--- NOTE | 2019-01-03 11:00 | NUR ---
NURSE NOTES: Patient noted with hematuria, dark red urine. Contacted and informed Dr. Asencio. Dr. Asencio acknowledged and ordered Dr. Ceballos for urology consult and Dr. Gayle for hematology consult. Orders entered, noted, and carried out. Will continue to monitor patient.
--- NOTE | 2019-01-03 11:24 | General Progress Note ---
Assessment/Plan Assessment/Plan # Pancytopenia (as was present on last admision), likely related to septicemia, appears new baseline 50-70k, several causes possible including viral, medication or intrabone marrow related. Now has a uti. Does have a splenomegaly. --> Cont to monitor plt count for improvement --> US abd: Mild left hydronephrosis. Possible left renal calyceal calculi. Negative for gallstones or dilated ducts Debris noted within the bladder --> Hep panel and HIV are both negative --> given extremely poor condition do not recommend a bone marrow biopsy, have discussed with family 08/01/18 with --> will rediscuss once sepsis resolves --> transfuse if plt <20k --> abd us has been re-ordered to check for cirrhosis # Anemia of chronic disease. Multifactorial. Since admission Hgb has consistently remained between 8-9. --> Cont to monitor for stability --> Hgb goal above 7. Transfuse prn. --> IV iron completed prior admission and feritin is elevated # DVT of the left leg s/p IVC filter in 07/2018-- superficial femoral vein which is a deep vein, new onset, has not had these symptoms before. Lower hgb and plts --> given decreased h/h, low thrombocytopenia, do not recommend anticoag --> appreciate pulm recs --> smear reviewed and no schistocytes noted # Dehydration. IVF has been administered --> improved --> as per renal # DM OOC --> A1C goal <7 --> Cont on insulin iss # Bacteremia/prior UTI. --> ID is following. Appreciate recs. --> Pt on IV abx. --> Cultures surveillance as per id # PEG placement s/p 08/04/18 The timing of this note does not necessarily reflect the time of the patient was seen. Greatly appreciate consultation! Subjective Gastrointestinal/Abdominal: Denies: no symptoms, abdomen distended, abdominal pain, black stools, tarry stools, blood in stool, constipated, diarrhea, difficulty swallowing, nausea, poor appetite, poor fluid intake, rectal bleeding , vomiting, other Neurologic/Psychiatric: Denies: no symptoms, anxiety, depressed, emotional problems, headache, numbness, paresthesia, pre-existing deficit, seizure, tingling, tremors, weakness, other Endocrine: Denies: no symptoms, excessive sweating, flushing, intolerance to cold, intolerance to heat, increased hunger, increased thirst, increased urine, unexplained weight gain, unexplained weight loss, other Hematologic/Lymphatic: Denies: no symptoms, anemia, easy bleeding, easy bruising, other Allergies: Coded Allergies: No Known Allergies (Unverified , 12/14/18) Subjective 01/03: no events, cxr is pending, seen by others, 2l nc to continue Objective Last 24 Hour Vital Signs Date Time Temp Pulse Resp B/P (MAP) Pulse Ox O2 Delivery O2 Flow Rate FiO2 01/03/19 10:30 92 16 100 01/03/19 08:35 88 16 99 01/03/19 08:26 99 140/70 01/03/19 08:00 98.5 92 14 140/70 (93) 100 01/03/19 08:00 91 01/03/19 08:00 40 01/03/19 08:00 Venturi Mask 8.0 01/03/19 07:45 91 14 99 01/03/19 05:10 89 13 100 Full Face 40 01/03/19 04:00 40 01/03/19 04:00 97.4 73 14 155/79 (104) 100 01/03/19 04:00 Venturi Mask 8.0 01/03/19 03:31 78 01/03/19 03:00 82 12 100 Full Face 40 01/03/19 02:05 67 12 100 Full Face 40 01/03/19 00:07 74 14 100 Full Face 40 01/03/19 00:00 Venturi Mask 8.0 01/03/19 00:00 98.3 68 12 151/75 (100) 100 01/03/19 00:00 40 01/02/19 23:33 68 01/02/19 22:06 90 14 100 Full Face 40 01/02/19 21:33 72 152/70 01/02/19 20:00 98.2 72 18 152/70 (97) 100 01/02/19 20:00 Venturi Mask 8.0 01/02/19 19:24 76 01/02/19 16:00 Venturi Mask 8.0 01/02/19 16:00 87 01/02/19 16:00 97.6 90 20 146/76 (99) 100 01/02/19 13:33 81 100 01/02/19 12:51 129 125/80 01/02/19 12:00 12.0 50 01/02/19 12:00 98.4 129 20 125/80 (95) 100 01/02/19 12:00 Venturi Mask 12.0 01/02/19 12:00 132 Intake and Output 01/02/19 01/03/19 19:00 07:00 Intake Total 600 ml 1221.6 ml Output Total 1850 ml 1000 ml Balance -1250 ml 221.6 ml Intake Free Water 50 ml 60 ml IV Total 550 ml 1161.6 ml Output Urine Total 1850 ml 1000 ml Laboratory Tests 01/02/19 12:30: Total Protein (PEP) [Pending], Albumin (PEP) [Pending], Globulin (PEP) [Pending] , Albumin/Globulin Ratio [Pending], Qemad-5-Gtcyelfcr [Pending], Alpha-2- Globulins [Pending], Beta Globulins [Pending], Beta Gamma Globulin [Pending], PEP Abnormal Protein Bands [Pending], Protein Electrophoresis Interpret [Pending ] 01/03/19 03:15: Albumin/Globulin Ratio 0.5L, Sodium Level 150H, Potassium Level 3.4L, Chloride Level 116H, Carbon Dioxide Level 26, Anion Gap 8, Blood Urea Nitrogen 37H, Creatinine 0.9, Estimat Glomerular Filtration Rate , Glucose Level 108H, Uric Acid 6.0, Calcium Level 8.8, Phosphorus Level 2.8, Magnesium Level 1.9, Iron Level 49L, Total Iron Binding Capacity 121L, Percent Iron Saturation 40, Unsaturated Iron Binding 72L, Total Bilirubin 0.4, Aspartate Amino Transf (AST/ SGOT) 25, Alanine Aminotransferase (ALT/SGPT) 13, Alkaline Phosphatase 55, C- Reactive Protein, Quantitative 12.8H, Pro-B-Type Natriuretic Peptide 4160H, Total Protein 6.1L, Albumin 1.9L, Globulin 4.2, Triglycerides Level 74, Cholesterol Level 96, LDL Cholesterol 55, HDL Cholesterol 28L, Cholesterol/HDL Ratio 3.4, Vitamin B12 Level 1544H, Folate 36.7, Thyroid Stimulating Hormone ( TSH) 2.156 Height (Feet): 5 Height (Inches): 5.00 Weight (Pounds): 145 Objective VITAL SIGNS: on nm now GENERAL: She is an elderly demented female, in no acute distress. Nonverbal. HEENT: Normocephalic and atraumatic. Op Moist mucous membranes. NECK: Supple without lymphadenopathy. CHEST: Clear, but rales at the bases. HEART: Regular rate and rhythm. ABDOMEN: Soft, nontender, and nondistended. ++ peg EXTREMITIES: No cce Dewayne Gayle MD Jan 03, 2019 11:24
--- NOTE | 2019-01-03 11:24 | GI Progress Note ---
Assessment/Plan Problems: (1) Anemia ICD Codes: D64.9 - Anemia, unspecified SNOMED: 568169386 Qualifiers: Qualified Codes: D64.9 - Anemia, unspecified (2) Acute respiratory failure with hypoxemia ICD Codes: J96.01 - Acute respiratory failure with hypoxia SNOMED: 718646795 (3) Feeding by G-tube ICD Codes: Z93.1 - Gastrostomy status SNOMED: 392160958, 887142171, 866519481 (4) Altered mental status ICD Codes: R41.82 - Altered mental status, unspecified SNOMED: 855530100 (5) Thrombocytopenia ICD Codes: D69.6 - Thrombocytopenia, unspecified SNOMED: 755366015 (6) Dehydration ICD Codes: E86.0 - Dehydration SNOMED: 12058595 Status: unchanged Status Narrative Discussed with Dr. Argueta. Assessment/Plan Abdominal US reviewed, see full report. Equivocally slightly coarsened hepatic echogenicity, could indicate hepatocellular disease. supportive care Follow-up pulmonary recommendations G-tube feedings prn transfusions ppi reglan if needed abx per ID Electrolyte correction Bowel regimen fu labs The patient was seen and examined at bedside and all new and available data was reviewed in the patients chart. I agree with the above findings, impression and plan. (Patient seen earlier today. Signature stamp does not reflect patient encounter time.). - Edwardo Argueta MD Subjective Subjective limited Objective Last 24 Hour Vital Signs Date Time Temp Pulse Resp B/P (MAP) Pulse Ox O2 Delivery O2 Flow Rate FiO2 01/03/19 10:30 92 16 100 01/03/19 08:35 88 16 99 01/03/19 08:26 99 140/70 01/03/19 08:00 98.5 92 14 140/70 (93) 100 01/03/19 08:00 91 01/03/19 08:00 40 01/03/19 08:00 Venturi Mask 8.0 01/03/19 07:45 91 14 99 01/03/19 05:10 89 13 100 Full Face 40 01/03/19 04:00 40 01/03/19 04:00 97.4 73 14 155/79 (104) 100 01/03/19 04:00 Venturi Mask 8.0 01/03/19 03:31 78 01/03/19 03:00 82 12 100 Full Face 40 01/03/19 02:05 67 12 100 Full Face 40 01/03/19 00:07 74 14 100 Full Face 40 01/03/19 00:00 Venturi Mask 8.0 01/03/19 00:00 98.3 68 12 151/75 (100) 100 01/03/19 00:00 40 01/02/19 23:33 68 01/02/19 22:06 90 14 100 Full Face 40 01/02/19 21:33 72 152/70 01/02/19 20:00 98.2 72 18 152/70 (97) 100 01/02/19 20:00 Venturi Mask 8.0 01/02/19 19:24 76 01/02/19 16:00 Venturi Mask 8.0 01/02/19 16:00 87 01/02/19 16:00 97.6 90 20 146/76 (99) 100 01/02/19 13:33 81 100 01/02/19 12:51 129 125/80 01/02/19 12:00 12.0 50 01/02/19 12:00 98.4 129 20 125/80 (95) 100 01/02/19 12:00 Venturi Mask 12.0 01/02/19 12:00 132 Intake and Output 01/02/19 01/03/19 19:00 07:00 Intake Total 600 ml 1221.6 ml Output Total 1850 ml 1000 ml Balance -1250 ml 221.6 ml Intake Free Water 50 ml 60 ml IV Total 550 ml 1161.6 ml Output Urine Total 1850 ml 1000 ml Laboratory Tests Test 01/02/19 12:30 01/03/19 03:15 Total Protein (PEP) Pending Albumin (PEP) Pending Globulin (PEP) Pending Albumin/Globulin Ratio Pending 0.5 (1.0-2.7) L Pmcir-3-Gircmrnrb Pending Sxzjb-8-Jgaarlbye Pending Beta Globulins Pending Beta Gamma Globulin Pending PEP Abnormal Protein Bands Pending Protein Electrophoresis Interpret Pending Sodium Level 150 MMOL/L (136-145) H Potassium Level 3.4 MMOL/L (3.5-5.1) L Chloride Level 116 MMOL/L (98-107) H Carbon Dioxide Level 26 MMOL/L (21-32) Anion Gap 8 mmol/L (5-15) Blood Urea Nitrogen 37 mg/dL (7-18) H Creatinine 0.9 MG/DL (0.55-1.30) Estimat Glomerular Filtration Rate mL/min (>60) Glucose Level 108 MG/DL (74-106) H Uric Acid 6.0 MG/DL (2.6-7.2) Calcium Level 8.8 MG/DL (8.5-10.1) Phosphorus Level 2.8 MG/DL (2.5-4.9) Magnesium Level 1.9 MG/DL (1.8-2.4) Iron Level 49 ug/dL (50-175) L Total Iron Binding Capacity 121 ug/dL (250-450) L Percent Iron Saturation 40 % (15-50) Unsaturated Iron Binding 72 ug/dL (112-346) L Total Bilirubin 0.4 MG/DL (0.2-1.0) Aspartate Amino Transf (AST/SGOT) 25 U/L (15-37) Alanine Aminotransferase (ALT/SGPT) 13 U/L (12-78) Alkaline Phosphatase 55 U/L (46-116) C-Reactive Protein, Quantitative 12.8 mg/dL (0.00-0.90) H Pro-B-Type Natriuretic Peptide 4160 pg/mL (0-125) H Total Protein 6.1 G/DL (6.4-8.2) L Albumin 1.9 G/DL (3.4-5.0) L Globulin 4.2 g/dL Triglycerides Level 74 MG/DL (30-150) Cholesterol Level 96 MG/DL (< 200) LDL Cholesterol 55 mg/dL (<100) HDL Cholesterol 28 MG/DL (40-60) L Cholesterol/HDL Ratio 3.4 (3.3-4.4) Vitamin B12 Level 1544 PG/ML (193-986) H Folate 36.7 NG/ML (8.6-58.9) Thyroid Stimulating Hormone (TSH) 2.156 uiU/mL (0.358-3.740) Height (Feet): 5 Height (Inches): 5.00 Weight (Pounds): 145 General Appearance: WD/WN, no apparent distress, alert Cardiovascular: normal rate Respiratory/Chest: normal breath sounds, no respiratory distress, other - venturi mask Abdominal Exam: normal bowel sounds, non tender, soft, GT site Extremities: non-tender Powell,Keerthi-Preston [employer] EXEC[employer]IVE Jan 03, 2019 11:24
--- NOTE | 2019-01-03 11:45 | NUR ---
*-* INSURANCE *-* UPDATED CLINICALS AND REVIEWS FAXED TO: [facility] PLEASE FAX THE REVIEW/CLINICAL NCM: [email or web address] P- [phone] [phone]
[2019-01-03 12:00] VITALS: BP 157/73
[2019-01-03] MEDS: Cefepime HCl 1 GM in D5W 55 ML IVPB SCH (12:01)
--- NOTE | 2019-01-03 12:39 | Infectious Diseases Prog Note ---
Assessment/Plan Assessment/Plan A; Gram negative sepsis Complicated UTI Hydronephrosis Advance dementia s/p CVA P; Continue Cefepime Give on dose of Levaquin Will f/u cultures Subjective ROS Limited/Unobtainable: Yes Genitourinary: Reports: hematuria Allergies: Coded Allergies: No Known Allergies (Unverified , 12/14/18) Objective Vital Signs Last 24 Hour Vital Signs Date Time Temp Pulse Resp B/P (MAP) Pulse Ox O2 Delivery O2 Flow Rate FiO2 01/03/19 10:30 92 16 100 01/03/19 08:35 88 16 99 01/03/19 08:26 99 140/70 01/03/19 08:00 98.5 92 14 140/70 (93) 100 01/03/19 08:00 91 01/03/19 08:00 40 01/03/19 08:00 Venturi Mask 8.0 01/03/19 07:45 91 14 99 01/03/19 05:10 89 13 100 Full Face 40 01/03/19 04:00 40 01/03/19 04:00 97.4 73 14 155/79 (104) 100 01/03/19 04:00 Venturi Mask 8.0 01/03/19 03:31 78 01/03/19 03:00 82 12 100 Full Face 40 01/03/19 02:05 67 12 100 Full Face 40 01/03/19 00:07 74 14 100 Full Face 40 01/03/19 00:00 Venturi Mask 8.0 01/03/19 00:00 98.3 68 12 151/75 (100) 100 01/03/19 00:00 40 01/02/19 23:33 68 01/02/19 22:06 90 14 100 Full Face 40 01/02/19 21:33 72 152/70 01/02/19 20:00 98.2 72 18 152/70 (97) 100 01/02/19 20:00 Venturi Mask 8.0 01/02/19 19:24 76 01/02/19 16:00 Venturi Mask 8.0 01/02/19 16:00 87 01/02/19 16:00 97.6 90 20 146/76 (99) 100 01/02/19 13:33 81 100 01/02/19 12:51 129 125/80 Height (Feet): 5 Height (Inches): 5.00 Weight (Pounds): 145 HEENT: mucous membranes moist Respiratory/Chest: lungs clear Cardiovascular: normal rate Abdomen: soft, non tender, other - GT feeding Genitourinary: other - Leiva catheter, hematuria Extremities: no edema Neurologic/Psychiatric: aphasia Microbiology Date/Time Source Procedure Growth Status 01/02/19 00:15 Blood Blood Culture - Preliminary NO GROWTH AFTER 24 HOURS Resulted 01/02/19 00:00 Blood Blood Culture - Preliminary Resulted 01/02/19 04:26 Nasal Nares MRSA Culture - Final Staphylococcus Aureus - Mrsa Complete 01/02/19 07:50 Indwelling Cath Urine Culture - Preliminary Gram Negative Bacillus 1 Gram Negative Bacillus 2 Resulted 01/02/19 00:44 Urine,Clean Catch Urine Culture - Preliminary Gram Negative Bacillus 1 Resulted Laboratory Tests Test 01/03/19 03:15 Sodium Level 150 MMOL/L (136-145) H Potassium Level 3.4 MMOL/L (3.5-5.1) L Chloride Level 116 MMOL/L (98-107) H Carbon Dioxide Level 26 MMOL/L (21-32) Anion Gap 8 mmol/L (5-15) Blood Urea Nitrogen 37 mg/dL (7-18) H Creatinine 0.9 MG/DL (0.55-1.30) Estimat Glomerular Filtration Rate mL/min (>60) Glucose Level 108 MG/DL (74-106) H Uric Acid 6.0 MG/DL (2.6-7.2) Calcium Level 8.8 MG/DL (8.5-10.1) Phosphorus Level 2.8 MG/DL (2.5-4.9) Magnesium Level 1.9 MG/DL (1.8-2.4) Iron Level 49 ug/dL (50-175) L Total Iron Binding Capacity 121 ug/dL (250-450) L Percent Iron Saturation 40 % (15-50) Unsaturated Iron Binding 72 ug/dL (112-346) L Total Bilirubin 0.4 MG/DL (0.2-1.0) Aspartate Amino Transf (AST/SGOT) 25 U/L (15-37) Alanine Aminotransferase (ALT/SGPT) 13 U/L (12-78) Alkaline Phosphatase 55 U/L (46-116) C-Reactive Protein, Quantitative 12.8 mg/dL (0.00-0.90) H Pro-B-Type Natriuretic Peptide 4160 pg/mL (0-125) H Total Protein 6.1 G/DL (6.4-8.2) L Albumin 1.9 G/DL (3.4-5.0) L Globulin 4.2 g/dL Albumin/Globulin Ratio 0.5 (1.0-2.7) L Triglycerides Level 74 MG/DL (30-150) Cholesterol Level 96 MG/DL (< 200) LDL Cholesterol 55 mg/dL (<100) HDL Cholesterol 28 MG/DL (40-60) L Cholesterol/HDL Ratio 3.4 (3.3-4.4) Vitamin B12 Level 1544 PG/ML (193-986) H Folate 36.7 NG/ML (8.6-58.9) Thyroid Stimulating Hormone (TSH) 2.156 uiU/mL (0.358-3.740) Current Medications Medications (Trade) Dose Ordered Sig/Laure Route PRN Reason Start Time Stop Time Status Last Admin Dose Admin Acetaminophen (Tylenol) 650 mg Q4H PRN GT Mild Pain/Temp > 100.5 01/02/19 06:45 02/01/19 06:44 Barium Sulfate (Readi-Cat 2) 450 ml NOW PRN ORAL Radiology Procedure 01/02/19 09:30 01/04/19 09:20 Cefepime HCl 1 gm/ Dextrose 55 ml @ 110 mls/hr Q24H IVPB 01/02/19 13:00 01/09/19 12:59 01/03/19 12:01 Dextrose (Dextrose 50%) 25 ml Q30M PRN IV Hypoglycemia 01/02/19 07:00 02/01/19 06:59 Dextrose (Dextrose 50%) 50 ml Q30M PRN IV Hypoglycemia 01/02/19 07:00 02/01/19 06:59 Iopamidol (Isovue-300 100ml) 100 ml NOW PRN INJ Radiology Procedure 01/02/19 09:30 01/04/19 09:29 Metoprolol Tartrate (Lopressor) 25 mg Q12HR GT 01/02/19 21:27 02/01/19 21:26 01/03/19 08:26 Pantoprazole (Protonix) 40 mg EVERY 12 HOURS IVP 01/02/19 21:00 02/01/19 20:59 01/03/19 08:26 Sodium Chloride 1,000 ml @ 100 mls/hr Q10H IV 01/02/19 15:22 02/01/19 15:21 01/03/19 11:34 Shimon Card MD Jan 03, 2019 12:39
[2019-01-03] MEDS ORDERED: Levofloxacin 750mg tab GT SCH (12:45)
[2019-01-03 12:46] LABS: HEMATOCRIT 20.7 % (37.0-47.0); MEAN CORPUSCULAR VOLUME 97 FL (80-99); PLATELET COUNT 55 K/UL (150-450); RED BLOOD COUNT 2.13 M/UL (4.20-5.40); RED CELL DISTRIBUTION WIDTH 15.1 % (11.6-14.8)
[2019-01-03 12:50] LABS: HEMOGLOBIN 6.5 G/DL (12.0-16.0); WHITE BLOOD COUNT 1.7 K/UL (4.8-10.8)
--- NOTE | 2019-01-03 13:00 | NUR ---
NURSE NOTES: Dr. Shayy Card at nurse station. Informed Dr. Card of 1 bottle positive of blood culture and current WBC level of 1.7. MD acknowledged ordered to place patient on neurotpenic precaution. Orders entered, noted, and carried out. Will continue to monitor patient.
--- NOTE | 2019-01-03 13:05 | NUR ---
NURSE NOTES: Contacted and informed Dr. Gayle of current Hgb level of 6.5. Dr. Gayle acknowledged and ordered to transfuse 2 units of PRBC. Orders entered, noted, and carried out. Will continue to monitor patient.
--- NOTE | 2019-01-03 13:12 | NUR ---
NURSE NOTES: Called Angelika Lara and explained to need for blood transfusion. acknowledged and gave consent for blood transfusion via telephone. Second witness, DONIS Fraser. Charge nurse is aware. Noted. Will continue to monitor patient.
--- NOTE | 2019-01-03 13:51 | History and Physical Report ---
DATE OF ADMISSION: 01/02/2019 HISTORY OF PRESENT ILLNESS: The patient was recently discharged, came back, and again admitted for sepsis. The patient is a very ill patient. The patient is admitted for sepsis and fever. The patient also has a high blood pressure, diabetes, and has a feeding tube. The patient has been having waxing and waning mental status. She came in with hypoxia and respiratory distress. The patient was put on a non-rebreather by the EMS and was sent to [facility] for pneumonia and sepsis. The patient is nonverbal and cannot obtain anymore history from the patient. PAST MEDICAL HISTORY: CVA with hemiparesis, advanced dementia, dysphagia, history of CVA, hyperlipidemia, history of diabetes, history of hypertension, NIDDM, GERD, electrolyte imbalance, history of anemia, and history of encephalopathy. PAST SURGICAL HISTORY: PEG. MEDICATIONS: Vitamin C, Lipitor, aspirin, hydralazine, insulin, Protonix, and calcium. ALLERGIES: No known allergies. FAMILY HISTORY: Unable to obtain. SOCIAL HISTORY: Unable to obtain. REVIEW OF SYSTEMS: Unable to obtain. The patient is nonverbal. PHYSICAL: VITAL SIGNS: Temperature 98.4, pulse is ____, and blood pressure 125/80. HEENT: Pupils are equally reactive. CHEST: Bibasilar rhonchi. CARDIOVASCULAR: Tachycardic. GASTROINTESTINAL: Soft. G-tube site is intact. Positive bowel sounds. Nontender. EXTREMITIES: No edema. contracted. NEUROLOGIC: Responds to noxious stimuli. Cannot obtain further neurological exam. Reflexes are equal on both sides. There is generalized weakness. Labs were significant for BUN of 23 and creatinine 1.7. Calcium was elevated. Potassium was initially 7.2, sodium 139, BUN of 23, and creatinine 1.7. Glucose of 349. ASSESSMENT: 1. Altered mental status. 2. Sepsis UTI. 3. Rule out pneumonia, on BiPAP. 4. Respiratory distress. PLAN: I have asked Dr. Durbin to see the patient as well as Dr. Aldana, Dr. Bergman, Dr. Gayle, Dr. Shimon Card, and Dr. Parekh. Yi Asencio M.D. DR: KIEL JOB#: [id number] CC:
--- NOTE | 2019-01-03 13:51 | Consultation ---
DATE OF CONSULTATION: 01/02/2019 REASON FOR CONSULTATION: Hematuria, urinary retention. HISTORY OF PRESENT ILLNESS: The patient is a 78-year-old [place] female [facility] admitted with respiratory distress and sepsis, had 900 mL of urine in the bladder with clots and gross hematuria. Leiva catheter was placed originally in the periurethral space, recently was re-inserted by the nurse and the patient developed fairly decent urine output. Hematuria is decreasing. ALLERGIES: No known allergies. The patient with BiPAP, not responsive. From the chart, the patient has history of kidney stone and recurrent UTIs. REVIEW OF SYMPTOMS: Not obtainable due to the patient's mental condition. PHYSICAL EXAMINATION: VITAL SIGNS: She is currently afebrile. Vital signs are stable. NEUROLOGICAL: As above. LUNGS: Clear. CARDIOVASCULAR: Regular rate and rhythm ABDOMEN: Soft, nontender. No suprapubic tenderness. Leiva catheter is in place with minimal hematuria. No clots. LABORATORY DATA: Reviewed. Her creatinine currently is 1.3. White count is 7.1, hematocrit is 31. Previous ultrasound that was done in December 10, 2018 showed left hydronephrosis with old stone that was noted previously on the CT scan in the ureter, no evidence of renal masses. ASSESSMENT AND PLAN: The patient has gross hematuria, urosepsis, possible left ureteral stone from the previous admissions. I recommended to repeat CT urogram with and without intravenous contrast to assess the presence or absence of that stone and hydronephrosis as well as the bladder condition I will follow this patient with you. Lan Ceballos M.D. DR: David JOB#: [id number] CC:
--- NOTE | 2019-01-03 13:51 | Consultation ---
DATE OF CONSULTATION: 01/02/2019 INFECTIOUS DISEASE CONSULTATION CONSULTING PHYSICIAN: Shimon Card M.D. PRIMARY ATTENDING PHYSICIAN: Yi Asencio M.D. REASON FOR CONSULT: Sepsis, UTI. HISTORY OF PRESENT ILLNESS: The patient is a 78-year-old Azeri female, admitted this morning from a long-term facility. The patient has been in respiratory distress, hypoxemia, and altered mental status in the prison. In the hospital, she had fever of 101.3. She was tachycardic, was found to have acute renal failure and hyperkalemia. The patient is just recently discharged from [facility] on 12/27/2018. She had left hydronephrosis and nephrolithiasis. Because of poor physical condition, it was decided no aggressive procedure will be done. PAST MEDICAL HISTORY: Includes diabetes mellitus. 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 ALLERGIES: No known drug allergies. MEDICATIONS: Protonix, sodium chloride, and insulin. Got a dose of Rocephin in the ER. SOCIAL HISTORY: [facility] resident with poor mental and functional status. No history of alcohol, drug abuse or smoking. REVIEW OF SYSTEMS: Unobtainable. After hospitalization, the patient was put on BiPAP, currently getting oxygen by mask. PHYSICAL EXAMINATION: VITAL SIGNS: Temperature is 98.7, pulse 110, and blood pressure 115/67. GENERAL APPEARANCE: Seems to be thin. HEAD AND NECK: Oxygen by venturi mask. HEART: Tachycardic. LUNGS: Clear. ABDOMEN: soft, nontender, GT feeding EXTREMITIES: No edema. LABORATORY AND DIAGNOSTIC DATA: Sodium 144, potassium 5.6, the time of admission, BUN 67, and creatinine 1.6. Creatinine at the time of admission was 1.7. Glucose 192. UA showed wbc's 0 to 2, nitrite positive. Albumin is 2.6. Cultures are pending. I could not find chest x-ray report, but it was taken. IMPRESSION: 1. Sepsis with fever. 2. Tachycardia. 3. Altered mental status. 4. The patient has acute respiratory failure, acute renal failure with hyperkalemia, and diabetes mellitus. 5. 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 RECOMMENDATION: We will follow up the chest x-ray. We will start on cefepime. We will follow up the cultures. At the end of my exam, I thank Dr. Asencio, for involving me in the care of this patient. Shimon Card M.D. DR: JUAN DIEGO JOB#: [id number] CC: MOLLY
--- NOTE | 2019-01-03 13:52 | Nephrology Progress Note ---
Assessment/Plan Problem List: (1) Dehydration (2) Hyperkalemia (3) UTI (urinary tract infection) Assessment Dehydration leading to pre renal azotemia (1) Diabetic nephropathy and proteinuria (2) HyperKalemia Electrolyte imbalance (3) Anemia (4) UTI (urinary tract infection) (5) CAD Plan Hydrate adjust BP and BS K Phos , KCl , MgSo4 IV as needed antibiotics avoid nephrotoxics anemia mac per orders Subjective ROS Limited/Unobtainable: No Constitutional: Reports: malaise, weakness Objective Objective Last 24 Hour Vital Signs Date Time Temp Pulse Resp B/P (MAP) Pulse Ox O2 Delivery O2 Flow Rate FiO2 01/03/19 10:30 92 16 100 01/03/19 08:35 88 16 99 01/03/19 08:26 99 140/70 01/03/19 08:00 98.5 92 14 140/70 (93) 100 01/03/19 08:00 91 01/03/19 08:00 40 01/03/19 08:00 Venturi Mask 8.0 01/03/19 07:45 91 14 99 01/03/19 05:10 89 13 100 Full Face 40 01/03/19 04:00 40 01/03/19 04:00 97.4 73 14 155/79 (104) 100 01/03/19 04:00 Venturi Mask 8.0 01/03/19 03:31 78 01/03/19 03:00 82 12 100 Full Face 40 01/03/19 02:05 67 12 100 Full Face 40 01/03/19 00:07 74 14 100 Full Face 40 01/03/19 00:00 Venturi Mask 8.0 01/03/19 00:00 98.3 68 12 151/75 (100) 100 01/03/19 00:00 40 01/02/19 23:33 68 01/02/19 22:06 90 14 100 Full Face 40 01/02/19 21:33 72 152/70 01/02/19 20:00 98.2 72 18 152/70 (97) 100 01/02/19 20:00 Venturi Mask 8.0 01/02/19 19:24 76 01/02/19 16:00 Venturi Mask 8.0 01/02/19 16:00 87 01/02/19 16:00 97.6 90 20 146/76 (99) 100 Intake and Output 01/02/19 01/03/19 19:00 07:00 Intake Total 600 ml 1221.6 ml Output Total 1850 ml 1000 ml Balance -1250 ml 221.6 ml Intake Free Water 50 ml 60 ml IV Total 550 ml 1161.6 ml Output Urine Total 1850 ml 1000 ml Laboratory Tests 01/03/19 03:15: Sodium Level 150H, Potassium Level 3.4L, Chloride Level 116H, Carbon Dioxide Level 26, Anion Gap 8, Blood Urea Nitrogen 37H, Creatinine 0.9, Estimat Glomerular Filtration Rate , Glucose Level 108H, Uric Acid 6.0, Calcium Level 8.8, Phosphorus Level 2.8, Magnesium Level 1.9, Iron Level 49L, Total Iron Binding Capacity 121L, Percent Iron Saturation 40, Unsaturated Iron Binding 72L , Total Bilirubin 0.4, Aspartate Amino Transf (AST/SGOT) 25, Alanine Aminotransferase (ALT/SGPT) 13, Alkaline Phosphatase 55, C-Reactive Protein, Quantitative 12.8H, Pro-B-Type Natriuretic Peptide 4160H, Total Protein 6.1L, Albumin 1.9L, Globulin 4.2, Albumin/Globulin Ratio 0.5L, Triglycerides Level 74 , Cholesterol Level 96, LDL Cholesterol 55, HDL Cholesterol 28L, Cholesterol/ HDL Ratio 3.4, Vitamin B12 Level 1544H, Folate 36.7, Thyroid Stimulating Hormone (TSH) 2.156 01/03/19 12:30: White Blood Count 1.7*L, Red Blood Count 2.13L, Hemoglobin 6.5*L, Hematocrit 20.7L, Mean Corpuscular Volume 97, Mean Corpuscular Hemoglobin 30.7, Mean Corpuscular Hemoglobin Concent 31.6L, Red Cell Distribution Width 15.1H, Platelet Count 55L, Mean Platelet Volume 7.7, Neutrophils (%) (Auto) , Lymphocytes (%) (Auto) , Monocytes (%) (Auto) , Eosinophils (%) (Auto) , Basophils (%) (Auto) , Differential Total Cells Counted 100, Neutrophils % ( Manual) 66, Lymphocytes % (Manual) 20, Monocytes % (Manual) 12H, Eosinophils % ( Manual) 2, Basophils % (Manual) 0, Band Neutrophils 0, Platelet Estimate DecreasedL, Platelet Morphology Normal, Hypochromasia 4+, Anisocytosis 1+ Height (Feet): 5 Height (Inches): 5.00 Weight (Pounds): 145 General Appearance: no apparent distress, lethargic Cardiovascular: tachycardia Respiratory/Chest: decreased breath sounds Abdomen: distended Parvez Bergman MD Jan 03, 2019 13:52
--- NOTE | 2019-01-03 14:09 | Pulmonology Progress Note ---
Assessment/Plan Assessment/Plan Pulmonary Progress Note Patient is a 78-year-old Turk[place] female from jail recently DC form [facility]. She was admitted with distress at rest, hypoxia and altered mental status. Noted to have urinary retention and significant hyperkalemia, now improved. She has multiple medical history including recent admission for CVA. She also has high blood pressure, diabetes, feeding tube. At baseline she opens her eyes. Unable to get any other history from this patient. Worsenng anemia over 24 hours, stable Pulmonary Status Allergies: No Known Allergies Past Medical History: Dementia, previous Encephalopathy, CVA, Hemiparesis, Weakness, High blood pressure, Diabetes, HL, Anemia, GERD, feeding tube for dysphagia, sacral decubitus ROS: Negative aside from above, limited Physical Exam Vital Signs Noted General Appearance: severe distress, cachetic, Chronically Ill, Stupor Head: normocephalic, atraumatic Eyes: bilateral eye PERRL, bilateral eye EOMI ENT: dry mucus membranes Neck: supple Respiratory: respiratory distress, decreased breath sounds, accessory muscle use, rhonchi, wheezing Cardiovascular: Normal HS, tachycardia Gastrointestinal: normal bowel sounds, non tender, no mass, no organomegaly, no bruit, non-distended Musculoskeletal: back normal, other - Contracted. Sacral decubitus Psychiatric: mood/affect normal Skin: warm/dry Impression: Acute respiratory failure with hypoxemia Sepsis UTI (urinary tract infection) ARF (acute renal failure) Acute hyperkalemia Acute metabolic encephalopathy Anemia Type 2 diabetes mellitus with hyperglycemia H/o Hypertension Dementia Previous CVA, Hemiparesis, Weakness HL Feeding tube Sacral decubitus Plan Continue BiPAP Adjust FIO2 IV fluids PPX - dc SQ heparin PPI [employer] Medications ISS Monitor Labs BC grew out Escherichia coli in the past, ESBL. EKG: Rate: tachycardiac Rhythm: NSR ST Segments: other - nsst Changes Chest X-Ray no effusion, no pneumothorax, other - Atelectasis. Improved from prior Subjective ROS Limited/Unobtainable: No Allergies: Coded Allergies: No Known Allergies (Unverified , 12/14/18) Objective Last 24 Hour Vital Signs Date Time Temp Pulse Resp B/P (MAP) Pulse Ox O2 Delivery O2 Flow Rate FiO2 01/03/19 10:30 92 16 100 01/03/19 08:35 88 16 99 01/03/19 08:26 99 140/70 01/03/19 08:00 98.5 92 14 140/70 (93) 100 01/03/19 08:00 91 01/03/19 08:00 40 01/03/19 08:00 Venturi Mask 8.0 01/03/19 07:45 91 14 99 01/03/19 05:10 89 13 100 Full Face 40 01/03/19 04:00 40 01/03/19 04:00 97.4 73 14 155/79 (104) 100 01/03/19 04:00 Venturi Mask 8.0 01/03/19 03:31 78 01/03/19 03:00 82 12 100 Full Face 40 01/03/19 02:05 67 12 100 Full Face 40 01/03/19 00:07 74 14 100 Full Face 40 01/03/19 00:00 Venturi Mask 8.0 01/03/19 00:00 98.3 68 12 151/75 (100) 100 01/03/19 00:00 40 01/02/19 23:33 68 01/02/19 22:06 90 14 100 Full Face 40 01/02/19 21:33 72 152/70 01/02/19 20:00 98.2 72 18 152/70 (97) 100 01/02/19 20:00 Venturi Mask 8.0 01/02/19 19:24 76 01/02/19 16:00 Venturi Mask 8.0 01/02/19 16:00 87 01/02/19 16:00 97.6 90 20 146/76 (99) 100 Intake and Output 01/02/19 01/03/19 19:00 07:00 Intake Total 600 ml 1221.6 ml Output Total 1850 ml 1000 ml Balance -1250 ml 221.6 ml Intake Free Water 50 ml 60 ml IV Total 550 ml 1161.6 ml Output Urine Total 1850 ml 1000 ml Microbiology Date/Time Source Procedure Growth Status 01/02/19 00:15 Blood Blood Culture - Preliminary NO GROWTH AFTER 24 HOURS Resulted 01/02/19 00:00 Blood Blood Culture - Preliminary Resulted 01/02/19 04:26 Nasal Nares MRSA Culture - Final Staphylococcus Aureus - Mrsa Complete 01/02/19 07:50 Indwelling Cath Urine Culture - Preliminary Gram Negative Bacillus 1 Gram Negative Bacillus 2 Resulted 01/02/19 00:44 Urine,Clean Catch Urine Culture - Preliminary Gram Negative Bacillus 1 Resulted Laboratory Tests 3/26/19 03:15: Sodium Level 150H, Potassium Level 3.4L, Chloride Level 116H, Carbon Dioxide Level 26, Anion Gap 8, Blood Urea Nitrogen 37H, Creatinine 0.9, Estimat Glomerular Filtration Rate , Glucose Level 108H, Uric Acid 6.0, Calcium Level 8.8, Phosphorus Level 2.8, Magnesium Level 1.9, Iron Level 49L, Total Iron Binding Capacity 121L, Percent Iron Saturation 40, Unsaturated Iron Binding 72L , Total Bilirubin 0.4, Aspartate Amino Transf (AST/SGOT) 25, Alanine Aminotransferase (ALT/SGPT) 13, Alkaline Phosphatase 55, C-Reactive Protein, Quantitative 12.8H, Pro-B-Type Natriuretic Peptide 4160H, Total Protein 6.1L, Albumin 1.9L, Globulin 4.2, Albumin/Globulin Ratio 0.5L, Triglycerides Level 74 , Cholesterol Level 96, LDL Cholesterol 55, HDL Cholesterol 28L, Cholesterol/ HDL Ratio 3.4, Vitamin B12 Level 1544H, Folate 36.7, Thyroid Stimulating Hormone (TSH) 2.156 01/03/19 12:30: White Blood Count 1.7*L, Red Blood Count 2.13L, Hemoglobin 6.5*L, Hematocrit 20.7L, Mean Corpuscular Volume 97, Mean Corpuscular Hemoglobin 30.7, Mean Corpuscular Hemoglobin Concent 31.6L, Red Cell Distribution Width 15.1H, Platelet Count 55L, Mean Platelet Volume 7.7, Neutrophils (%) (Auto) , Lymphocytes (%) (Auto) , Monocytes (%) (Auto) , Eosinophils (%) (Auto) , Basophils (%) (Auto) , Differential Total Cells Counted 100, Neutrophils % ( Manual) 66, Lymphocytes % (Manual) 20, Monocytes % (Manual) 12H, Eosinophils % ( Manual) 2, Basophils % (Manual) 0, Band Neutrophils 0, Platelet Estimate DecreasedL, Platelet Morphology Normal, Hypochromasia 4+, Anisocytosis 1+ Current Medications Medications (Trade) Dose Ordered Sig/Laure Route PRN Reason Start Time Stop Time Status Last Admin Dose Admin Acetaminophen (Tylenol) 650 mg Q4H PRN GT Mild Pain/Temp > 100.5 01/02/19 06:45 02/01/19 06:44 Barium Sulfate (Readi-Cat 2) 450 ml NOW PRN ORAL Radiology Procedure 01/02/19 09:30 01/04/19 09:20 Cefepime HCl 1 gm/ Dextrose 55 ml @ 110 mls/hr Q24H IVPB 01/02/19 13:00 01/09/19 12:59 01/03/19 12:01 Dextrose 1,000 ml @ 75 mls/hr [id number] IV 01/03/19 14:00 02/02/19 13:59 Dextrose (Dextrose 50%) 25 ml Q30M PRN IV Hypoglycemia 01/02/19 07:00 02/01/19 06:59 Dextrose (Dextrose 50%) 50 ml Q30M PRN IV Hypoglycemia 01/02/19 07:00 02/01/19 06:59 Iopamidol (Isovue-300 100ml) 100 ml NOW PRN INJ Radiology Procedure 01/02/19 09:30 01/04/19 09:29 Metoprolol Tartrate (Lopressor) 25 mg Q12HR GT 01/02/19 21:27 02/01/19 21:26 01/03/19 08:26 Pantoprazole (Protonix) 40 mg EVERY 12 HOURS IVP 01/02/19 21:00 02/01/19 20:59 01/03/19 08:26 Valente Camacho MD Jan 03, 2019 14:09
--- NOTE | 2019-01-03 15:19 | Consultation ---
History of Present Illness General Date patient seen: Jan 03, 2019 Chief Complaint: Dyspnea/Respdistress Referring physician: KARLA BUSTAMANTE Present Illness HPI 78 [facility] old female [facility] resident with multiple medical comorbidities admitted for sob and medical care. on admission noted to have multiple wounds. surgery called to evaluate and assist with care. patient seen, chart reviewed , patient examined. Allergies: Coded Allergies: No Known Allergies (Unverified , 12/14/18) Medication History Scheduled Ascorbic Acid* (Vitamin C*), 500 MG GT TWICE A DAY, (Reported) Aspirin* (Aspir 81*), 81 MG ORAL DAILY, (Reported) Atorvastatin Calcium* (Atorvastatin Calcium*), 20 MG GT BEDTIME, (Reported) Clopidogrel Bisulfate* (Plavix*), 75 MG GT DAILY, (Reported) Hydralazine Hcl* (Hydralazine Hcl*), 10 MG GT EVERY 6 HOURS, (Reported) Lansoprazole* (Lansoprazole*), 30 MG GT TWICE A DAY, (Reported) Multivitamin With Minerals (Multivitamins With Minerals*), 1 TAB GT DAILY, ( Reported) Potassium Chloride (Potassium Chloride), 20 MEQ GT TWICE A DAY, (Reported) Scheduled PRN Acetaminophen (Tylenol), 650 MG GT EVERY 4 HOURS PRN for Mild Pain/Temp > 100.5, (Reported) Hydralazine Hcl* (Hydralazine Hcl*), 25 MG GT EVERY 4 HOURS PRN for For High Blood Pressure, (Reported) Magnesium Hydroxide* (Milk Of Magnesia*), 30 ML GT EVERY 8 HOURS PRN for Constipation, (Reported) Nitroglycerin (Nitrostat), 0.4 MG SL Q5M X3 DOSES PRN for CHEST PAIN, (Reported) Ondansetron* (Zofran*), 4 MG GT Q4HR PRN for Nausea & Vomiting, (Reported) Miscellaneous Medications Bacitracin (Bacitracin*), 1 PACKET TOPIC, (Reported) Gel Base No.41 (Hydrogel), 3,000 GM TOPIC, (Reported) Insulin Lispro (Humalog), 0 SUBQ, (Reported) Petrolatum,White/Lanolin (Vitamin A & D Ointment), 113 GM TP, (Reported) Discontinued Medications Acetaminophen* (Acetaminophen 325MG Tablet*), 650 MG ORAL Q4H PRN for Fever/ Headache/Mild Pain, (Reported) Discontinued Reason: MD discontinued med Acetaminophen* (Acetaminophen*), 325 MG ORAL Q4HR PRN for Mild Pain/Temp > 100.5 , (Reported) Discontinued Reason: MD discontinued med Albuterol Sulfate* (Albuterol Sulfate Hhn*), 3 ML INH Q4H PRN for Shortness of Breath, (Reported) Discontinued Reason: MD discontinued med Amlodipine Besylate* (Amlodipine Besylate*), 10 MG ORAL DAILY, (Reported) Discontinued Reason: MD discontinued med Aspirin Ec* (Aspirin Ec*), 81 MG ORAL DAILY, (Reported) Discontinued Reason: MD discontinued med Atorvastatin Calcium* (Atorvastatin Calcium*), 20 MG ORAL BEDTIME, (Reported) Discontinued Reason: MD discontinued med Clonazepam* (Klonopin*), 0.5 MG ORAL BID, (Reported) Discontinued Reason: MD discontinued med Clonidine Hcl* (Catapres*), 0.1 MG ORAL EVERY 4 HOURS PRN for For High Blood Pressure, (Reported) Discontinued Reason: MD discontinued med Ferrous Sulfate (Ferrousul), 325 MG GT, (Reported) Discontinued Reason: MD discontinued med Insulin Lispro (Humalog), 0 SUBQ, (Reported) Discontinued Reason: MD discontinued med Magnesium Hydroxide* (Milk Of Magnesia*), 30 ML ORAL DAILY PRN for Constipation, (Reported) Discontinued Reason: MD discontinued med Metoprolol Tartrate* (Metoprolol Tartrate*), 25 MG ORAL EVERY 12 HOURS, ( Reported) Discontinued Reason: MD discontinued med Multivit-Min/Iron Fum/Folic AC (Ouwer-Bqqbqak-Qlsrxjcp Tablet), 1 EACH PO DAILY, (Reported) Discontinued Reason: MD discontinued med Nitroglycerin (Nitroglycerin), 0.4 MG PO, (Reported) Discontinued Reason: MD discontinued med Nitroglycerin (Nitroglycerin Patch), 1 EACH TD, (Reported) Discontinued Reason: MD discontinued med Ondansetron* (Zofran*), 4 MG ORAL Q4HR PRN for Nausea & Vomiting, (Reported) Discontinued Reason: MD discontinued med Potassium Chloride* (K-Dur*), 20 MEQ ORAL DAILY, (Reported) Discontinued Reason: MD discontinued med Quetiapine Fumarate* (Seroquel*), 25 MG ORAL BID, (Reported) Discontinued Reason: MD discontinued med Sennosides (Senna), 8.6 MG PO QHS, (Reported) Discontinued Reason: MD discontinued med [lispro ss], (Reported) Discontinued Reason: discontinued med [mylanta max strength], 15 ML PO Q6HR PRN for dyspepsia, (Reported) Discontinued Reason: MD discontinued med Patient History Limited by: medical condition History Provided By: Medical Record, PMD Healthcare decision maker Resuscitation status Advanced Directive on File Past Medical/Surgical History Past Medical/Surgical History: (1) Hypernatremia (2) Oliguria (3) Fever (4) Diabetic nephropathy (5) Dementia with behavioral disturbance (6) Elevated troponin I level (7) DVT (deep venous thrombosis) (8) Encephalopathy due to metabolic factor or toxin (9) Hypokalemia (10) Diabetic nephropathy (11) ARF (acute renal failure) (12) Proteinuria, unspecified (13) Acute respiratory failure with hypoxemia (14) Hyperglycemia due to type 2 diabetes mellitus (15) Acute hyperkalemia (16) Acute metabolic encephalopathy (17) UTI (urinary tract infection) (18) Dehydration (19) Thrombocytopenia (20) Malnutrition (21) Altered mental status (22) Feeding by G-tube (23) Sepsis (24) Anemia (25) Hyperkalemia Review of Systems All Other Systems: negative except mentioned in HPI Physical Exam General Appearance: no apparent distress Lines, tubes and drains: peripheral HEENT: mucous membranes moist Neck: normal inspection Respiratory/Chest: normal breath sounds, no respiratory distress, no accessory muscle use Cardiovascular/Chest: regular rhythm Abdomen: soft, no organomegaly, no mass Extremities: no calf tenderness Skin Exam: warm/dry Last 24 Hour Vital Signs Date Time Temp Pulse Resp B/P (MAP) Pulse Ox O2 Delivery O2 Flow Rate FiO2 01/03/19 12:00 97.8 73 14 157/73 (101) 100 01/03/19 12:00 Venturi Mask 8.0 01/03/19 12:00 3.0 01/03/19 12:00 55 01/03/19 10:30 92 16 100 01/03/19 08:35 88 16 99 01/03/19 08:26 99 140/70 01/03/19 08:00 98.5 92 14 140/70 (93) 100 01/03/19 08:00 91 01/03/19 08:00 40 01/03/19 08:00 Venturi Mask 8.0 3/26/19 07:45 91 14 99 01/03/19 05:10 89 13 100 Full Face 40 01/03/19 04:00 40 01/03/19 04:00 97.4 73 14 155/79 (104) 100 01/03/19 04:00 Venturi Mask 8.0 01/03/19 03:31 78 01/03/19 03:00 82 12 100 Full Face 40 01/03/19 02:05 67 12 100 Full Face 40 01/03/19 00:07 74 14 100 Full Face 40 01/03/19 00:00 Venturi Mask 8.0 01/03/19 00:00 98.3 68 12 151/75 (100) 100 01/03/19 00:00 40 01/02/19 23:33 68 01/02/19 22:06 90 14 100 Full Face 40 01/02/19 21:33 72 152/70 01/02/19 20:00 98.2 72 18 152/70 (97) 100 01/02/19 20:00 Venturi Mask 8.0 01/02/19 19:24 76 01/02/19 16:00 Venturi Mask 8.0 01/02/19 16:00 87 01/02/19 16:00 97.6 90 20 146/76 (99) 100 Intake and Output 01/02/19 01/03/19 19:00 07:00 Intake Total 600 ml 1221.6 ml Output Total 1850 ml 1000 ml Balance -1250 ml 221.6 ml Intake Free Water 50 ml 60 ml IV Total 550 ml 1161.6 ml Output Urine Total 1850 ml 1000 ml Laboratory Tests Test 01/03/19 03:15 01/03/19 12:30 Sodium Level 150 MMOL/L (136-145) H Potassium Level 3.4 MMOL/L (3.5-5.1) L Chloride Level 116 MMOL/L (98-107) H Carbon Dioxide Level 26 MMOL/L (21-32) Anion Gap 8 mmol/L (5-15) Blood Urea Nitrogen 37 mg/dL (7-18) H Creatinine 0.9 MG/DL (0.55-1.30) Estimat Glomerular Filtration Rate mL/min (>60) Glucose Level 108 MG/DL (74-106) H Uric Acid 6.0 MG/DL (2.6-7.2) Calcium Level 8.8 MG/DL (8.5-10.1) Phosphorus Level 2.8 MG/DL (2.5-4.9) Magnesium Level 1.9 MG/DL (1.8-2.4) Iron Level 49 ug/dL (50-175) L Total Iron Binding Capacity 121 ug/dL (250-450) L Percent Iron Saturation 40 % (15-50) Unsaturated Iron Binding 72 ug/dL (112-346) L Total Bilirubin 0.4 MG/DL (0.2-1.0) Aspartate Amino Transf (AST/SGOT) 25 U/L (15-37) Alanine Aminotransferase (ALT/SGPT) 13 U/L (12-78) Alkaline Phosphatase 55 U/L (46-116) C-Reactive Protein, Quantitative 12.8 mg/dL (0.00-0.90) H Pro-B-Type Natriuretic Peptide 4160 pg/mL (0-125) H Total Protein 6.1 G/DL (6.4-8.2) L Albumin 1.9 G/DL (3.4-5.0) L Globulin 4.2 g/dL Albumin/Globulin Ratio 0.5 (1.0-2.7) L Triglycerides Level 74 MG/DL (30-150) Cholesterol Level 96 MG/DL (< 200) LDL Cholesterol 55 mg/dL (<100) HDL Cholesterol 28 MG/DL (40-60) L Cholesterol/HDL Ratio 3.4 (3.3-4.4) Vitamin B12 Level 1544 PG/ML (193-986) H Folate 36.7 NG/ML (8.6-58.9) Thyroid Stimulating Hormone (TSH) 2.156 uiU/mL (0.358-3.740) White Blood Count 1.7 K/UL (4.8-10.8) *L Red Blood Count 2.13 M/UL (4.20-5.40) L Hemoglobin 6.5 G/DL (12.0-16.0) *L Hematocrit 20.7 % (37.0-47.0) L Mean Corpuscular Volume 97 FL (80-99) Mean Corpuscular Hemoglobin 30.7 PG (27.0-31.0) Mean Corpuscular Hemoglobin Concent 31.6 G/DL (32.0-36.0) L Red Cell Distribution Width 15.1 % (11.6-14.8) H Platelet Count 55 K/UL (150-450) L Mean Platelet Volume 7.7 FL (6.5-10.1) Neutrophils (%) (Auto) % (45.0-75.0) Lymphocytes (%) (Auto) % (20.0-45.0) Monocytes (%) (Auto) % (1.0-10.0) Eosinophils (%) (Auto) % (0.0-3.0) Basophils (%) (Auto) % (0.0-2.0) Differential Total Cells Counted 100 Neutrophils % (Manual) 66 % (45-75) Lymphocytes % (Manual) 20 % (20-45) Monocytes % (Manual) 12 % (1-10) H Eosinophils % (Manual) 2 % (0-3) Basophils % (Manual) 0 % (0-2) Band Neutrophils 0 % (0-8) Platelet Estimate Decreased L Platelet Morphology Normal Hypochromasia 4+ Anisocytosis 1+ Height (Feet): 5 Height (Inches): 5.00 Weight (Pounds): 145 Medications Current Medications Medications (Trade) Dose Ordered Sig/Laure Route PRN Reason Start Time Stop Time Status Last Admin Dose Admin Acetaminophen (Tylenol) 650 mg Q4H PRN GT Mild Pain/Temp > 100.5 01/02/19 06:45 02/01/19 06:44 Barium Sulfate (Readi-Cat 2) 450 ml NOW PRN ORAL Radiology Procedure 01/02/19 09:30 01/04/19 09:20 Cefepime HCl 1 gm/ Dextrose 55 ml @ 110 mls/hr Q24H IVPB 01/02/19 13:00 01/09/19 12:59 01/03/19 12:01 Dextrose 1,000 ml @ 75 mls/hr [id number] IV 01/03/19 14:00 02/02/19 13:59 01/03/19 14:06 Dextrose (Dextrose 50%) 25 ml Q30M PRN IV Hypoglycemia 01/02/19 07:00 02/01/19 06:59 Dextrose (Dextrose 50%) 50 ml Q30M PRN IV Hypoglycemia 01/02/19 07:00 02/01/19 06:59 Iopamidol (Isovue-300 100ml) 100 ml NOW PRN INJ Radiology Procedure 01/02/19 09:30 01/04/19 09:29 Metoprolol Tartrate (Lopressor) 25 mg Q12HR GT 01/02/19 21:27 02/01/19 21:26 01/03/19 08:26 Pantoprazole (Protonix) 40 mg EVERY 12 HOURS IVP 01/02/19 21:00 02/01/19 20:59 01/03/19 08:26 Assessment/Plan Problem List: (1) Decubitus skin ulcer Assessment & Plan: Pt presented on admission with full thickness pressure injury R gluteal cleft. Base of wound is moist -viable. Edges adherent to base of wound(L)1cm x (W)0.4cm x (D)0.2cm. Non-blanchable erythema with additional shearing periwound and L gluteal cleft. Erythema with moisture and scattered dark purple areas at base of wound.Non-blanchable erythema without induration periwound.Both heels dry and firm. No other areas of skin concerns noted. Tx.Plan: Cleanse Sacral area with Saline. Apply Triad Paste .Apply Cavilon Skin Barrier Periwound. Cover with Optifoam drsg. Change Q 3 days and prn. Apply Triad Paste to Cleft of buttocks with each perineal care Apply Cavilon Skin Barrier to each heel. Cover each heel with Optifoam drsg .Change every 7 days and prn. AP/THEA mattress overlay. Reposition at least every 2hours or as tolerated. Off-load heels with pillow. ICD Codes: L89.90 - Pressure ulcer of unspecified site, unspecified stage SNOMED: 515754673 (2) Fever Assessment & Plan: IV Abx trend labs ID input appreciated will monitor ICD Codes: R50.9 - Fever, unspecified SNOMED: 300382262 (3) Malnutrition Assessment & Plan: DAILY ESTIMATED NEEDS: Needs based on Pulmonary, wounds/ 52.7kg 25-30 kcals/kg 5660-7494 total kcals 1.25-1.5 g protein/kg 66-78 g total protein 25-30 mL/kg 8258-2705 total fluid mLs NUTRITION DIAGNOSIS: 1) Increased kcal and protein needs R/T wound healing as evidenced by pt w/ wounds including full thickeness wound @ Rt gluteal cleft and nonblanchable erythema @ lt gluteal cleft. 2) Swallowing difficulty R/T dysphagia as evidenced by pt is PEG dep. CURRENT TF:NPO ENTERAL NUTRITION RECOMMENDATIONS: Glucerna 1.2 @ 50ml/hr x 24 hrs to provide 1200ml, 1440kcal, 72g prot, 966ml free water * Initiate TF as medically appropriate * Initiate Glucerna 1.2 @ 30ml/hr x 6hrs, advance 10ml q 4-6 hrs as tolerated to goal rate. * Flush per MD/ HOB over 30 degrees ADDITIONAL RECOMMENDATIONS: * Per SNF: ht=62", wt=98lbs on 11/16/18 Bedscale wt on 01/0242=886pph, possible recent significant wt gain ---> Recalibrate bedscale wt, now w/ P200 mattress, weekly wt monitoring * Wound healing: Add Timbo 1pkt BID * Check lytes daily, replete as needed ICD Codes: E46 - Unspecified protein-calorie malnutrition SNOMED: 91818209 Cisco Montgomery Jan 03, 2019 15:19
[2019-01-03 16:00] VITALS: BP 151/71
--- NOTE | 2019-01-03 17:30 | General Progress Note ---
Assessment/Plan Problem List: (1) Thrombocytopenia ICD Codes: D69.6 - Thrombocytopenia, unspecified SNOMED: 053124432 (2) Malnutrition ICD Codes: E46 - Unspecified protein-calorie malnutrition SNOMED: 62408457 (3) Altered mental status ICD Codes: R41.82 - Altered mental status, unspecified SNOMED: 325780111 (4) Feeding by G-tube ICD Codes: Z93.1 - Gastrostomy status SNOMED: 458120710, 272790460, 860706075 (5) Anemia ICD Codes: D64.9 - Anemia, unspecified SNOMED: 342257319 Qualifiers: Qualified Codes: D64.9 - Anemia, unspecified (6) Sepsis ICD Codes: A41.9 - Sepsis, unspecified organism SNOMED: 72544155 Qualifiers: Qualified Codes: A41.9 - Sepsis, unspecified organism (7) Dementia with behavioral disturbance ICD Codes: F03.91 - Unspecified dementia with behavioral disturbance SNOMED: 8377703845753 (8) Encephalopathy due to metabolic factor or toxin SNOMED: 986651689 (9) Decubitus skin ulcer ICD Codes: L89.90 - Pressure ulcer of unspecified site, unspecified stage SNOMED: 098364827 Assessment/Plan hypokalemia hypernatremia severe pancytopenia severe anemia severe leukopenia severe thrombocytopenia heme/onc informed and ordered 2 units sepsis pna uti poor prognosis Subjective ROS Limited/Unobtainable: Yes Allergies: Coded Allergies: No Known Allergies (Unverified , 12/14/18) Objective Last 24 Hour Vital Signs Date Time Temp Pulse Resp B/P (MAP) Pulse Ox O2 Delivery O2 Flow Rate FiO2 01/03/19 16:00 79 01/03/19 16:00 Venturi Mask 8.0 01/03/19 16:00 3.0 01/03/19 12:00 97.8 73 14 157/73 (101) 100 01/03/19 12:00 Venturi Mask 8.0 01/03/19 12:00 3.0 01/03/19 12:00 55 01/03/19 10:30 92 16 100 01/03/19 08:35 88 16 99 01/03/19 08:26 99 140/70 01/03/19 08:00 98.5 92 14 140/70 (93) 100 01/03/19 08:00 91 01/03/19 08:00 40 01/03/19 08:00 Venturi Mask 8.0 01/03/19 07:45 91 14 99 01/03/19 05:10 89 13 100 Full Face 40 01/03/19 04:00 40 01/03/19 04:00 97.4 73 14 155/79 (104) 100 01/03/19 04:00 Venturi Mask 8.0 01/03/19 03:31 78 01/03/19 03:00 82 12 100 Full Face 40 01/03/19 02:05 67 12 100 Full Face 40 01/03/19 00:07 74 14 100 Full Face 40 01/03/19 00:00 Venturi Mask 8.0 01/03/19 00:00 98.3 68 12 151/75 (100) 100 01/03/19 00:00 40 01/02/19 23:33 68 01/02/19 22:06 90 14 100 Full Face 40 01/02/19 21:33 72 152/70 01/02/19 20:00 98.2 72 18 152/70 (97) 100 01/02/19 20:00 Venturi Mask 8.0 01/02/19 19:24 76 Intake and Output 01/02/19 01/03/19 19:00 07:00 Intake Total 600 ml 1221.6 ml Output Total 1850 ml 1000 ml Balance -1250 ml 221.6 ml Intake Free Water 50 ml 60 ml IV Total 550 ml 1161.6 ml Output Urine Total 1850 ml 1000 ml Laboratory Tests 01/03/19 03:15: Sodium Level 150H, Potassium Level 3.4L, Chloride Level 116H, Carbon Dioxide Level 26, Anion Gap 8, Blood Urea Nitrogen 37H, Creatinine 0.9, Estimat Glomerular Filtration Rate , Glucose Level 108H, Uric Acid 6.0, Calcium Level 8.8, Phosphorus Level 2.8, Magnesium Level 1.9, Iron Level 49L, Total Iron Binding Capacity 121L, Percent Iron Saturation 40, Unsaturated Iron Binding 72L , Total Bilirubin 0.4, Aspartate Amino Transf (AST/SGOT) 25, Alanine Aminotransferase (ALT/SGPT) 13, Alkaline Phosphatase 55, C-Reactive Protein, Quantitative 12.8H, Pro-B-Type Natriuretic Peptide 4160H, Total Protein 6.1L, Albumin 1.9L, Globulin 4.2, Albumin/Globulin Ratio 0.5L, Triglycerides Level 74 , Cholesterol Level 96, LDL Cholesterol 55, HDL Cholesterol 28L, Cholesterol/ HDL Ratio 3.4, Vitamin B12 Level 1544H, Folate 36.7, Thyroid Stimulating Hormone (TSH) 2.156 01/03/19 12:30: White Blood Count 1.7*L, Red Blood Count 2.13L, Hemoglobin 6.5*L, Hematocrit 20.7L, Mean Corpuscular Volume 97, Mean Corpuscular Hemoglobin 30.7, Mean Corpuscular Hemoglobin Concent 31.6L, Red Cell Distribution Width 15.1H, Platelet Count 55L, Mean Platelet Volume 7.7, Neutrophils (%) (Auto) , Lymphocytes (%) (Auto) , Monocytes (%) (Auto) , Eosinophils (%) (Auto) , Basophils (%) (Auto) , Differential Total Cells Counted 100, Neutrophils % ( Manual) 66, Lymphocytes % (Manual) 20, Monocytes % (Manual) 12H, Eosinophils % ( Manual) 2, Basophils % (Manual) 0, Band Neutrophils 0, Platelet Estimate DecreasedL, Platelet Morphology Normal, Hypochromasia 4+, Anisocytosis 1+ Height (Feet): 5 Height (Inches): 5.00 Weight (Pounds): 145 General Appearance: lethargic, confused Abdomen: soft Yi Asencio MD Jan 03, 2019 17:30
--- NOTE | 2019-01-03 17:37 | NUR ---
CASE MANAGEMENT: REVIEW 01/03/2019 SI:SEPSIS. T 97.8 HR 55 RR 14 B/P 157/73 SATS 100% ON 8L/VENTURI MASK WBC 1.7 HGB 6.5 HCT 20.7 NA 150 K 3/4 CL 116 BUN 37 GLU 108 IS:IVF @ 75 mL/HR LOPRESSOR GT Q12H CEFEPIME IV Q24H STEP DOWN UNIT PLAN OF CARE: WOUND CARE
--- NOTE | 2019-01-03 19:13 | Diagnostic Imaging Report ---
Indication: Abdominal pain Technique: Continuous helical transaxial imaging of the abdomen and pelvis was obtained from the lung bases to the pubic symphysis during intravenous contrast administration. Coronal 2-D reformats were also obtained. Study obtained in a Siemens sensation [address] Automatic Exposure Control was utilized. Total Dose length Product (DLP): [address] Dose Index Volume (CTDIvol): 0.15, 16.81, 8.11, 24.33, 16.05, 16.81, 16.81 mGy Comparison: 07/29/2018 Findings: There is a small left pleural effusion and a trace right pleural effusion with associated posterior basal atelectasis. Aortoiliac calcifications are present. Gallstones are present. There is sedimented calcium and stones demonstrated within the calyces of both kidneys. There is a moderate bilateral hydroureteronephrosis present. 2 mm stone noted within the right mid ureter. 7 mm stone demonstrated within the left distal ureter having migrated from a mid left ureter position on the prior study 07/29/2018. Urinary bladder is notable for heterogeneous sedimenting calcium and small stones. There is also evidence of a hematoma present within the bladder lumen surrounding the Leiva catheter balloon. Moderate amount of air noted in the bladder lumen. Anasarca noted. No ascites seen. There is narrowing of intervertebral discs and accompanying endplate osteophyte formation. Hypertrophied facet joints also demonstrated.. IVC filter noted. Splenomegaly demonstrated. Gastrostomy tube demonstrated. IMPRESSION: Moderate bilateral hydronephrosis. 7 mm left distal ureteral stone having migrated from a more proximal position on the last examination 07/29/2018. On the right side hydroureteronephrosis probably on the basis of multiple bladder calculi and evidence of blood within the bladder lumen. Leiva catheter in good position. Small left pleural effusion and trace right pleural effusion with associated basal atelectasis. Splenomegaly Gallstones Gastrostomy IVC filter Other incidental findings as above The CT scanner at [facility] is accredited by the [employer] and the scans are performed using protocols designed to limit radiation exposure to as low as reasonably achievable to attain images of sufficient resolution adequate for diagnostic evaluation.
--- NOTE | 2019-01-03 19:14 | Cardiology Report ---
APPROVED REPORT EKG Measurement Heart [id number] HI 130P9 [id number] Sinus tachycardia Septal infarct, age undetermined Abnormal ECG
--- NOTE | 2019-01-03 19:15 | Diagnostic Imaging Report ---
Indication:Abdominal pain Technique: Grayscale and duplex Doppler imaging of the abdomen performed. Comparison: None Findings: The liver is unremarkable. The gallbladder shows a slightly thickened wall. No obvious gallstones.. The pancreas, aorta and IVC are poorly seen. The spleen is normal in size. There is no obvious biliary ductal dilatation identified. Doppler evaluation of the main portal vein shows patency. There is no ascites. Leiva catheter is noted. The bladder is nondistended. There are shadowing foci in the bladder consistent with stones. There is hydronephrosis present bilaterally. Dense calcific densities noted within both kidneys consistent with stones. Much of the midline is obscured including portions of the aorta due to gastrostomy and bandages. There is a left pleural effusion present. The spleen is enlarged measuring 14 cm. . Impression: Please refer to the CT report for more information Bilateral renal stones and bladder stones. Bilateral hydronephrosis. Splenomegaly. Left pleural effusion Much of the midline obscured by bandages and bowel gas. Mild thickening of the gallbladder wall
--- NOTE | 2019-01-03 19:16 | Diagnostic Imaging Report ---
APPROVED REPORT CPT Code: 14593 Present Symptoms Comments: BILATERAL LEGS PAIN. RIGHT LEG: Venous imaging reveals a patent deep venous system. There is no evidence of thrombus within the femoral, popliteal or tibial segments. The greater saphenous vein is also within normal limits. Doppler indicates normal spontaneous flow within these segments. LEFT LEG: Venous imaging reveals recanalized chronic thrombus in the superficial femoral vein. Imaging also reveals patency of the common femoral and calf veins. The greater saphenous vein is also within normal limits. Doppler indicates normal spontaneous flow within these segments.
--- NOTE | 2019-01-03 19:17 | Diagnostic Imaging Report ---
Indication: Dyspnea Comparison: None A single view chest radiograph was obtained. Findings: Hazy opacities developed at the left lung base. Consider pleural effusion. There is also likely parenchymal disease, which may be worse. Heart size remains normal. Lung volumes are low bilaterally. IMPRESSION: Developing left basilar pleural effusion probable underlying parenchymal disease such as pneumonia.
--- NOTE | 2019-01-03 19:20 | NUR ---
HAND-OFF: Report given to DONIS Lock.
--- NOTE | 2019-01-03 19:20 | NUR ---
NURSE NOTES: Received report from Presley Jones RN. Patient is asleep in bed, nonverbal. 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 No s/s of acute distress noted. Saturating well on 3L O2 via nasal cannula. Right wrist 20g IV, intact and patent, currently running 1 unit pRBC. Left hand 20g IV saline lock, intact and patent. Bed locked in lowest position with side rails up x3. Call light left within reach. Will continue to monitor.
[2019-01-03 20:00] VITALS: BP 154/83
[2019-01-03] MEDS ORDERED: 1/2 NS 1000ml IV ONE ×2 (21:25→21:28)
[2019-01-03] MEDS ORDERED: Sterile Water Irrig 1000ml IRRIG ONE (21:25)
[2019-01-03] MEDS ORDERED: Tubing IV Secondary IV ONE (21:25)
[2019-01-03] MEDS ORDERED: NS 275ml ONE ×2 (21:25→21:28)
[2019-01-03] MEDS ORDERED: Tubing Blood Filter IV ONE (21:28)
[2019-01-03] MEDS ORDERED: NS Irrig 1000ml ONE (21:28)
[2019-01-03] MEDS ORDERED: D5 1/2NS 1000ml IV ONE (21:28)
--- NOTE | 2019-01-03 23:00 | NUR ---
NURSE NOTES: 2nd unit pRBC started at 2245. No adverse reaction noted. Vital signs are WNL. Will continue to monitor.
[2019-01-04] VITALS: BP 157/73
[2019-01-04 04:00] VITALS: BP 159/69
[2019-01-04 05:13] LABS: HEMATOCRIT 29.6 % (37.0-47.0); HEMOGLOBIN 9.8 G/DL (12.0-16.0); MEAN CORPUSCULAR VOLUME 91 FL (80-99); PLATELET COUNT 67 K/UL (150-450); RED BLOOD COUNT 3.25 M/UL (4.20-5.40); RED CELL DISTRIBUTION WIDTH 14.7 % (11.6-14.8); WHITE BLOOD COUNT 2.3 K/UL (4.8-10.8)
[2019-01-04 05:37] LABS: ANION GAP 10 mmol/L (5-15); BLOOD UREA NITROGEN 24 mg/dL (7-18); CALCIUM 8.6 MG/DL (8.5-10.1); CARBON DIOXIDE 24 MMOL/L (21-32); CHLORIDE 114 MMOL/L (98-107); CREATININE 0.8 MG/DL (0.55-1.30); SODIUM 148 MMOL/L (136-145)
[2019-01-04 05:42] LABS: POTASSIUM 2.7 MMOL/L (3.5-5.1)
[2019-01-04 06:00] LABS: ALANINE AMINOTRANSFERASE 14 U/L (12-78); ALBUMIN 1.9 G/DL (3.4-5.0); ALKALINE PHOSPHATASE 56 U/L (46-116); ASPARTATE AMINO TRANSFERASE 27 U/L (15-37); BILIRUBIN,DIRECT 0.3 MG/DL (0.0-0.3); PHOSPHORUS 2.6 MG/DL (2.5-4.9)
--- NOTE | 2019-01-04 06:13 | NUR ---
NURSE NOTES: Left message for Dr. Pacheco MD regarding potassium, magnesium, and blood pressure. Awaiting response.
--- NOTE | 2019-01-04 07:10 | NUR ---
HAND-OFF: Report given to Anna Power RN.
--- NOTE | 2019-01-04 07:40 | NUR ---
NURSE NOTES: Report received from DONIS Lock. Observed patient in bed sleeping. Open eyes with shaking. Non-verbal. No s/s of pain at this time. Receiving 3L of oxygen via N/C with no distress noted. IVF running at prescribed rate. F/C intact and draining well. Bed in lowest position. Call light within reach. Will continue to monitor.
[2019-01-04 08:00] VITALS: BP 169/68
[2019-01-04] MEDS: Pantoprazole Inj IVP SCH ×2 (08:39→20:45)
[2019-01-04] MEDS: Metoprolol 25mg tab GT SCH (08:42)
--- NOTE | 2019-01-04 09:15 | Consultation ---
DATE OF CONSULTATION: 01/03/2019 NOTE: POOR AUDIO NEUROLOGY CONSULTATION CHIEF COMPLAINT: This 78-year-old woman with previous history of acute renal failure, respiratory failure, hypoxemia, type 2 diabetes, hyperkalemia, acute metabolic encephalopathy, who was transferred from a detention with altered mental status in the evening of 3:25. She also had hypoxia and respiratory distress. I did see this patient on the last admission for her stroke. 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 At that time, the patient had a stiff neck in all directions. She was somnolent and awoke with her eyes open. There is no spontaneous speech. No response to her name her right hand. The cranial nerves revealed no threat to visual field. She had doll's eyes to the right, but not to the left. There is a poor light response of about 4.5 mm pupils noted. She had increased tone bilaterally, worse in the right upper extremity compared to the left, although she moves the right upper extremity and lower extremity . She had a mute toe on the left testing from Babinski response downgoing toe on the right. She did react to deep pain bilaterally. She did have a subacute infarction involving the right basal ganglia with old lacunar strokes in the basal ganglia as well as . I suggested that she be treated with Plavix. The patient was discharged on 12/27/2018. She was admitted today with the above problems. was noted. The last hemoglobin was 9.9 on 12/27/2018 platelet count of 89,000. White count of 4100. She did not have any 05:06 chemistries noted. The last glucose was 142 on 12/27/2018. BUN was 26 on 12/27/2018. Creatinine is 0.9. The rest of the electrolytes were normal. She has not had a urine test. Urinalysis revealed 20 to 30 WBC per high-power field, 30 to 40 RBCs per high-power field, 2+ urine glucose and protein, specific gravity 1.010, pH of 7. She has not had any new outside studies. . CBC today reveals a white count of 1700, on 01/02/2019 , hemoglobin is 6.5, platelet count 55,000, . Urinalysis today reveals many bacteria, but only 2 white cells per high-power field, protein +2 with a pH of 9, specific gravity 1.015. The electrolytes today reveal sodium 150, carbon monoxide 116, potassium of 3.4, glucose of 189 creatinine of 0.9. The patient was found to have an iron deficiency anemia. Cholesterol has been low, vitamin B12 was 1544 today. TSH is . PHYSICAL EXAMINATION: GENERAL: She is a well-developed, well-nourished woman, lying in bed, 10:25. VITAL SIGNS: Pulse is 77 and regular, respiratory rate is 20, temperature is 97.8 degrees, and blood pressure is 157/73 ____. HEENT: The head is turned to the right . She has severe limitation of motion in all directions fairly unremarkable. NECK: Her carotids are +2. No bruits could be appreciated. LUNGS: I could not hear any breath sounds. CARDIOVASCULAR: PMI could not be felt. JVP were not well visualized. The patient had normal S1, S2 is physiologically split. I could not hear S3, S4, murmurs, or rubs. ABDOMEN: Bowel sounds are intact. There is no tenderness, masses, or organomegaly appreciated. EXTREMITIES: Pulses in the upper extremities are +2. NEUROLOGIC: Mental status: The patient was awake with eyes open. When she was stimulated, she my arms with her right hand in a purposeful manner. There is no focalization. There is no response to voice or deep pain except for pressure in the right hand. CRANIAL NERVE EXAMINATION: CRANIAL NERVE II: Visual hicks appear to be absent or not responding. CRANIAL NERVES III, IV, AND : The eyes are in the midline, little bit turned towards the right. Pupils were approximately 4.5 mm and minimally reactive to light. CRANIAL NERVE V: Corneal sensation was decreased bilaterally. CRANIAL NERVE VII THROUGH XII: Could not be tested. MUSCULOSKELETAL: Her bulk was symmetrically bilaterally and tone was increased, moving all four extremities more on the left than the right. She moves the right side only as noted above. She right lower extremity. Left side, there is minimal moving of the left arm and minimal moving of the left leg. Reflexes are +1 to +2 in the upper extremities, 0 at the knees and ankles with toe on the right side. The problem was going to on the left side. SENSORY: There is some response to deep pain in the extremities with movement of the right arm and some movement of the legs. 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 The patient also has a metabolic encephalopathy, probably due to urinary tract infection probably due to her bacteria as well as new systemic symptoms. The patient's baseline is further testing seizures, therefore I do not think she needs an EEG. do any further treatment of her cerebrovascular disease other than what is going on at this point. PLAN: 1. We will speak about this case. 2. Continue the Plavix 75 mg and continue her Levaquin and ____ blood pressure medications. Thank you for this interesting case, Dr. Asencio. Gerry Durbin MD DR: JOHN/vtg JOB#: [id number] CC:
--- NOTE | 2019-01-04 11:13 | GI Progress Note ---
Assessment/Plan Problems: (1) Anemia ICD Codes: D64.9 - Anemia, unspecified SNOMED: 843024072 Qualifiers: Qualified Codes: D64.9 - Anemia, unspecified (2) Acute respiratory failure with hypoxemia ICD Codes: J96.01 - Acute respiratory failure with hypoxia SNOMED: 517732218 (3) Feeding by G-tube ICD Codes: Z93.1 - Gastrostomy status SNOMED: 612014377, 835034536, 649523921 (4) Altered mental status ICD Codes: R41.82 - Altered mental status, unspecified SNOMED: 878605380 (5) Thrombocytopenia ICD Codes: D69.6 - Thrombocytopenia, unspecified SNOMED: 397907602 (6) Dehydration ICD Codes: E86.0 - Dehydration SNOMED: 46633704 Status: unchanged Status Narrative Discussed with Dr. Argueta Assessment/Plan Abdominal US reviewed, see full report. Equivocally slightly coarsened hepatic echogenicity, could indicate hepatocellular disease. Abdominal pelvic CT reviewed supportive care Follow-up pulmonary recommendations G-tube feedings prn transfusions ppi reglan if needed abx per ID Electrolyte correction Bowel regimen fu labs The patient was seen and examined at bedside and all new and available data was reviewed in the patients chart. I agree with the above findings, impression and plan. (Patient seen earlier today. Signature stamp does not reflect patient encounter time.). - Edwardo Argueta MD Subjective Subjective limited Objective Last 24 Hour Vital Signs Date Time Temp Pulse Resp B/P (MAP) Pulse Ox O2 Delivery O2 Flow Rate FiO2 01/04/19 08:42 66 169/68 01/04/19 08:00 97.9 66 18 169/68 (101) 100 01/04/19 08:00 3.0 01/04/19 08:00 55 01/04/19 08:00 Nasal Cannula 3.0 01/04/19 07:10 70 18 Nasal Cannula 2.0 28 01/04/19 07:10 99 Nasal Cannula 2.0 28 01/04/19 07:10 Nasal Cannula 2.0 28 01/04/19 04:00 3.0 01/04/19 04:00 97.7 64 18 159/69 (99) 100 01/04/19 04:00 Nasal Cannula 3.0 01/04/19 03:52 54 01/04/19 00:00 3.0 01/04/19 00:00 Nasal Cannula 3.0 01/04/19 00:00 97.9 64 16 157/73 (101) 100 01/03/19 23:27 52 01/03/19 21:15 87 154/83 01/03/19 20:00 97.9 87 16 154/83 (106) 100 01/03/19 20:00 3.0 01/03/19 20:00 Room Air 3.0 01/03/19 19:25 89 01/03/19 18:55 Nasal Cannula 2.0 28 01/03/19 18:55 100 Nasal Cannula 2.0 28 01/03/19 18:54 77 20 Nasal Cannula 2.0 28 01/03/19 16:00 97.9 83 14 151/71 (97) 100 01/03/19 16:00 79 01/03/19 16:00 Venturi Mask 8.0 01/03/19 16:00 3.0 01/03/19 12:00 97.8 73 14 157/73 (101) 100 01/03/19 12:00 Venturi Mask 8.0 01/03/19 12:00 3.0 01/03/19 12:00 55 Intake and Output 01/03/19 01/04/19 19:00 07:00 Intake Total 400 ml 897.5 ml Output Total 1350 ml 1000 ml Balance -950 ml -102.5 ml Intake Free Water 400 ml 60 ml IV Total 0 ml 337.5 ml Blood Product 500 ml Output Urine Total 1350 ml 1000 ml Laboratory Tests Test 01/03/19 12:30 01/04/19 04:20 White Blood Count 1.7 K/UL (4.8-10.8) *L 2.3 K/UL (4.8-10.8) L Red Blood Count 2.13 M/UL (4.20-5.40) L 3.25 M/UL (4.20-5.40) L Hemoglobin 6.5 G/DL (12.0-16.0) *L 9.8 G/DL (12.0-16.0) #L Hematocrit 20.7 % (37.0-47.0) L 29.6 % (37.0-47.0) #L Mean Corpuscular Volume 97 FL (80-99) 91 FL (80-99) Mean Corpuscular Hemoglobin 30.7 PG (27.0-31.0) 30.3 PG (27.0-31.0) Mean Corpuscular Hemoglobin Concent 31.6 G/DL (32.0-36.0) L 33.2 G/DL (32.0-36.0) Red Cell Distribution Width 15.1 % (11.6-14.8) H 14.7 % (11.6-14.8) Platelet Count 55 K/UL (150-450) L 67 K/UL (150-450) L Mean Platelet Volume 7.7 FL (6.5-10.1) 7.6 FL (6.5-10.1) Neutrophils (%) (Auto) % (45.0-75.0) % (45.0-75.0) Lymphocytes (%) (Auto) % (20.0-45.0) % (20.0-45.0) Monocytes (%) (Auto) % (1.0-10.0) % (1.0-10.0) Eosinophils (%) (Auto) % (0.0-3.0) % (0.0-3.0) Basophils (%) (Auto) % (0.0-2.0) % (0.0-2.0) Differential Total Cells Counted 100 100 Neutrophils % (Manual) 66 % (45-75) 76 % (45-75) H Lymphocytes % (Manual) 20 % (20-45) 14 % (20-45) L Monocytes % (Manual) 12 % (1-10) H 9 % (1-10) Eosinophils % (Manual) 2 % (0-3) 1 % (0-3) Basophils % (Manual) 0 % (0-2) 0 % (0-2) Band Neutrophils 0 % (0-8) 0 % (0-8) Platelet Estimate Decreased L Decreased L Platelet Morphology Normal Normal Hypochromasia 4+ Anisocytosis 1+ Sodium Level 148 MMOL/L (136-145) H Potassium Level 2.7 MMOL/L (3.5-5.1) *L Chloride Level 114 MMOL/L (98-107) H Carbon Dioxide Level 24 MMOL/L (21-32) Anion Gap 10 mmol/L (5-15) Blood Urea Nitrogen 24 mg/dL (7-18) H Creatinine 0.8 MG/DL (0.55-1.30) Estimat Glomerular Filtration Rate mL/min (>60) Glucose Level 115 MG/DL (74-106) H Calcium Level 8.6 MG/DL (8.5-10.1) Phosphorus Level 2.6 MG/DL (2.5-4.9) Magnesium Level 1.6 MG/DL (1.8-2.4) L Total Bilirubin 1.0 MG/DL (0.2-1.0) Direct Bilirubin 0.3 MG/DL (0.0-0.3) Aspartate Amino Transf (AST/SGOT) 27 U/L (15-37) Alanine Aminotransferase (ALT/SGPT) 14 U/L (12-78) Alkaline Phosphatase 56 U/L (46-116) Total Protein 6.1 G/DL (6.4-8.2) L Albumin 1.9 G/DL (3.4-5.0) L Height (Feet): 5 Height (Inches): 5.00 Weight (Pounds): 135 General Appearance: no apparent distress Cardiovascular: normal rate Respiratory/Chest: normal breath sounds, no respiratory distress Abdominal Exam: normal bowel sounds, non tender, soft, GT site - Clean dry and intact Extremities: non-tender Aidee Powell NP Jan 04, 2019 11:13
--- NOTE | 2019-01-04 11:21 | NUR ---
NURSE NOTES: Informed Dr. Bergman regarding decreased HR to [address] Bergman said he will change some orders later. Will follow up.
--- NOTE | 2019-01-04 11:25 | NUR ---
*-* INSURANCE *-* UPDATED CLINICALS AND REVIEWS FAXED TO: [facility] PLEASE FAX THE REVIEW/CLINICAL NCM: [id number] P- [phone] U- [phone]
[2019-01-04 11:45] VITALS: BP 149/69
--- NOTE | 2019-01-04 11:50 | NUR ---
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 IS:POTASSIUM CHLORIDE 100mL IVPB MAGNESIUM SULFATE 100 ml IVPB LOPRESSOR 25mG GT PROTONIX 40mg IVP SDU STATUS
--- NOTE | 2019-01-04 12:44 | Nephrology Progress Note ---
Assessment/Plan Problem List: (1) Dehydration (2) Hyperkalemia (3) UTI (urinary tract infection) (4) Acute respiratory failure with hypoxemia (5) HTN (hypertension) Assessment Dehydration leading to pre renal azotemia (1) Diabetic nephropathy and proteinuria (2) HyperKalemia Electrolyte imbalance (3) Anemia (4) UTI (urinary tract infection) (5) CAD Plan Hydrate adjust BP and BS K Phos , KCl , MgSo4 IV as needed antibiotics avoid nephrotoxics anemia mac BP meds per orders Subjective ROS Limited/Unobtainable: No Constitutional: Reports: malaise, weakness Objective Objective Last 24 Hour Vital Signs Date Time Temp Pulse Resp B/P (MAP) Pulse Ox O2 Delivery O2 Flow Rate FiO2 01/04/19 12:00 3.0 01/04/19 12:00 Nasal Cannula 3.0 01/04/19 11:45 97.7 55 20 149/69 (95) 100 01/04/19 08:42 66 169/68 01/04/19 08:00 97.9 66 18 169/68 (101) 100 01/04/19 08:00 3.0 01/04/19 08:00 55 01/04/19 08:00 Nasal Cannula 3.0 01/04/19 07:10 70 18 Nasal Cannula 2.0 28 01/04/19 07:10 99 Nasal Cannula 2.0 28 01/04/19 07:10 Nasal Cannula 2.0 28 01/04/19 04:00 3.0 01/04/19 04:00 97.7 64 18 159/69 (99) 100 01/04/19 04:00 Nasal Cannula 3.0 01/04/19 03:52 54 01/04/19 00:00 3.0 01/04/19 00:00 Nasal Cannula 3.0 01/04/19 00:00 97.9 64 16 157/73 (101) 100 01/03/19 23:27 52 01/03/19 21:15 87 154/83 01/03/19 20:00 97.9 87 16 154/83 (106) 100 01/03/19 20:00 3.0 01/03/19 20:00 Room Air 3.0 01/03/19 19:25 89 01/03/19 18:55 Nasal Cannula 2.0 28 01/03/19 18:55 100 Nasal Cannula 2.0 28 01/03/19 18:54 77 20 Nasal Cannula 2.0 28 01/03/19 16:00 97.9 83 14 151/71 (97) 100 01/03/19 16:00 79 01/03/19 16:00 Venturi Mask 8.0 01/03/19 16:00 3.0 Intake and Output 01/03/19 01/04/19 19:00 07:00 Intake Total 400 ml 897.5 ml Output Total 1350 ml 1000 ml Balance -950 ml -102.5 ml Intake Free Water 400 ml 60 ml IV Total 0 ml 337.5 ml Blood Product 500 ml Output Urine Total 1350 ml 1000 ml Laboratory Tests 01/04/19 04:20: White Blood Count 2.3L, Red Blood Count 3.25L, Hemoglobin 9.8#L, Hematocrit 29.6 #L, Mean Corpuscular Volume 91, Mean Corpuscular Hemoglobin 30.3, Mean Corpuscular Hemoglobin Concent 33.2, Red Cell Distribution Width 14.7, Platelet Count 67L, Mean Platelet Volume 7.6, Neutrophils (%) (Auto) , Lymphocytes (%) ( Auto) , Monocytes (%) (Auto) , Eosinophils (%) (Auto) , Basophils (%) (Auto) , Differential Total Cells Counted 100, Neutrophils % (Manual) 76H, Lymphocytes % (Manual) 14L, Monocytes % (Manual) 9, Eosinophils % (Manual) 1, Basophils % ( Manual) 0, Band Neutrophils 0, Platelet Estimate DecreasedL, Platelet Morphology Normal, Sodium Level 148H, Potassium Level 2.7*L, Chloride Level 114H , Carbon Dioxide Level 24, Anion Gap 10, Blood Urea Nitrogen 24H, Creatinine 0.8 , Estimat Glomerular Filtration Rate , Glucose Level 115H, Calcium Level 8.6, Phosphorus Level 2.6, Magnesium Level 1.6L, Total Bilirubin 1.0, Direct Bilirubin 0.3, Aspartate Amino Transf (AST/SGOT) 27, Alanine Aminotransferase ( ALT/SGPT) 14, Alkaline Phosphatase 56, Total Protein 6.1L, Albumin 1.9L Height (Feet): 5 Height (Inches): 5.00 Weight (Pounds): 135 General Appearance: lethargic Cardiovascular: bradycardia Respiratory/Chest: decreased breath sounds Abdomen: distended Parvez Bergman MD Jan 04, 2019 12:44
[2019-01-04] MEDS ORDERED: HydrALAZINE 25mg tab ORAL PRN (12:45)
[2019-01-04] MEDS ORDERED: HydrALAZINE 25mg tab GT PRN (12:45)
[2019-01-04] MEDS: Cefepime HCl 1 GM in D5W 55 ML IVPB SCH (13:13)
--- NOTE | 2019-01-04 13:23 | Infectious Diseases Prog Note ---
Assessment/Plan Assessment/Plan A; Gram negative sepsis Complicated UTI with E. coli & Proteus Hydronephrosis Advance dementia s/p CVA P; Continue Cefepime Add Tygacil Will f/u cultures Subjective ROS Limited/Unobtainable: Yes Allergies: Coded Allergies: No Known Allergies (Unverified , 12/14/18) Objective Vital Signs Last 24 Hour Vital Signs Date Time Temp Pulse Resp B/P (MAP) Pulse Ox O2 Delivery O2 Flow Rate FiO2 01/04/19 12:00 3.0 01/04/19 12:00 Nasal Cannula 3.0 01/04/19 11:45 97.7 55 20 149/69 (95) 100 01/04/19 08:42 66 169/68 01/04/19 08:00 97.9 66 18 169/68 (101) 100 01/04/19 08:00 3.0 01/04/19 08:00 55 01/04/19 08:00 Nasal Cannula 3.0 01/04/19 07:10 70 18 Nasal Cannula 2.0 28 01/04/19 07:10 99 Nasal Cannula 2.0 28 01/04/19 07:10 Nasal Cannula 2.0 28 01/04/19 04:00 3.0 01/04/19 04:00 97.7 64 18 159/69 (99) 100 01/04/19 04:00 Nasal Cannula 3.0 01/04/19 03:52 54 01/04/19 00:00 3.0 01/04/19 00:00 Nasal Cannula 3.0 01/04/19 00:00 97.9 64 16 157/73 (101) 100 01/03/19 23:27 52 01/03/19 21:15 87 154/83 01/03/19 20:00 97.9 87 16 154/83 (106) 100 01/03/19 20:00 3.0 01/03/19 20:00 Room Air 3.0 01/03/19 19:25 89 01/03/19 18:55 Nasal Cannula 2.0 28 01/03/19 18:55 100 Nasal Cannula 2.0 28 01/03/19 18:54 77 20 Nasal Cannula 2.0 28 01/03/19 16:00 97.9 83 14 151/71 (97) 100 01/03/19 16:00 79 01/03/19 16:00 Venturi Mask 8.0 01/03/19 16:00 3.0 Height (Feet): 5 Height (Inches): 5.00 Weight (Pounds): 135 General Appearance: no acute distress HEENT: mucous membranes moist Respiratory/Chest: lungs clear Cardiovascular: bradycardia Abdomen: soft, non tender, other - GT feeding Extremities: other - IV site edema Neurologic/Psychiatric: aphasia Microbiology Date/Time Source Procedure Growth Status 01/02/19 00:15 Blood Blood Culture - Preliminary Resulted 01/02/19 00:00 Blood Blood Culture - Preliminary Gram Negative Bacillus 1 Resulted 01/02/19 04:26 Nasal Nares MRSA Culture - Final Staphylococcus Aureus - Mrsa Complete 01/02/19 07:50 Indwelling Cath Urine Culture - Preliminary Escherichia Coli Proteus Mirabilis Resulted 01/02/19 00:44 Urine,Clean Catch Urine Culture - Final Proteus Mirabilis Complete 01/02/19 04:26 Rectum VRE Culture - Final Enterococcus Faecalis - Vre Complete Laboratory Tests Test 01/04/19 04:20 White Blood Count 2.3 K/UL (4.8-10.8) L Red Blood Count 3.25 M/UL (4.20-5.40) L Hemoglobin 9.8 G/DL (12.0-16.0) #L Hematocrit 29.6 % (37.0-47.0) #L Mean Corpuscular Volume 91 FL (80-99) Mean Corpuscular Hemoglobin 30.3 PG (27.0-31.0) Mean Corpuscular Hemoglobin Concent 33.2 G/DL (32.0-36.0) Red Cell Distribution Width 14.7 % (11.6-14.8) Platelet Count 67 K/UL (150-450) L Mean Platelet Volume 7.6 FL (6.5-10.1) Neutrophils (%) (Auto) % (45.0-75.0) Lymphocytes (%) (Auto) % (20.0-45.0) Monocytes (%) (Auto) % (1.0-10.0) Eosinophils (%) (Auto) % (0.0-3.0) Basophils (%) (Auto) % (0.0-2.0) Differential Total Cells Counted 100 Neutrophils % (Manual) 76 % (45-75) H Lymphocytes % (Manual) 14 % (20-45) L Monocytes % (Manual) 9 % (1-10) Eosinophils % (Manual) 1 % (0-3) Basophils % (Manual) 0 % (0-2) Band Neutrophils 0 % (0-8) Platelet Estimate Decreased L Platelet Morphology Normal Sodium Level 148 MMOL/L (136-145) H Potassium Level 2.7 MMOL/L (3.5-5.1) *L Chloride Level 114 MMOL/L (98-107) H Carbon Dioxide Level 24 MMOL/L (21-32) Anion Gap 10 mmol/L (5-15) Blood Urea Nitrogen 24 mg/dL (7-18) H Creatinine 0.8 MG/DL (0.55-1.30) Estimat Glomerular Filtration Rate mL/min (>60) Glucose Level 115 MG/DL (74-106) H Calcium Level 8.6 MG/DL (8.5-10.1) Phosphorus Level 2.6 MG/DL (2.5-4.9) Magnesium Level 1.6 MG/DL (1.8-2.4) L Total Bilirubin 1.0 MG/DL (0.2-1.0) Direct Bilirubin 0.3 MG/DL (0.0-0.3) Aspartate Amino Transf (AST/SGOT) 27 U/L (15-37) Alanine Aminotransferase (ALT/SGPT) 14 U/L (12-78) Alkaline Phosphatase 56 U/L (46-116) Total Protein 6.1 G/DL (6.4-8.2) L Albumin 1.9 G/DL (3.4-5.0) L Current Medications Medications (Trade) Dose Ordered Sig/Laure Route PRN Reason Start Time Stop Time Status Last Admin Dose Admin Acetaminophen (Tylenol) 650 mg Q4H PRN GT Mild Pain/Temp > 100.5 01/02/19 06:45 02/01/19 06:44 Cefepime HCl 1 gm/ Dextrose 55 ml @ 110 mls/hr Q24H IVPB 01/02/19 13:00 01/09/19 12:59 01/04/19 13:13 Dextrose 1,000 ml @ 50 mls/hr Q20H IV 01/04/19 12:41 02/03/19 12:40 01/04/19 13:13 Dextrose (Dextrose 50%) 25 ml Q30M PRN IV Hypoglycemia 01/02/19 07:00 02/01/19 06:59 Dextrose (Dextrose 50%) 50 ml Q30M PRN IV Hypoglycemia 01/02/19 07:00 02/01/19 06:59 Hydralazine HCl (Apresoline) 25 mg Q4H PRN GT bp over 160 syst 01/04/19 12:45 02/03/19 12:44 Metoprolol Tartrate (Lopressor) 12.5 mg Q12HR GT 01/04/19 21:00 02/01/19 21:26 Pantoprazole (Protonix) 40 mg EVERY 12 HOURS IVP 01/02/19 21:00 02/01/19 20:59 01/04/19 08:39 Potassium Chloride 100 ml @ 100 mls/hr Q1HR IVPB 01/04/19 09:00 01/04/19 14:59 01/04/19 13:13 Shimon Card MD Jan 04, 2019 13:23
[2019-01-04] MEDS ORDERED: Albuterol/Ipratropium 3ml neb HHN PRN (14:45)
--- NOTE | 2019-01-04 14:49 | Pulmonology Progress Note ---
Assessment/Plan Problems: (1) Pancytopenia (2) Sepsis (3) UTI (urinary tract infection) (4) S/P IVC filter (5) Encephalopathy due to metabolic factor or toxin (6) Dementia with behavioral disturbance (7) Feeding by G-tube (8) Malnutrition Assessment/Plan Optimize pulmonary hygiene/mobilize as tolerated Titrate down FiO2 to keep SaO2 > 92% PRN HHN's Abx per ID, F/U Cx's Monitor volumes and renal function Monitor counts, replete as needed, FU heme recs I feel strongly that care is futile at this point and patient has no chance at a meaningful recovery and is essentially coming in and out of the hospital with recurrent bouts of sepsis. I discussed the case with Dr. Arauz who recommended a BIOETHICS consult. FC, should be DNAR! Subjective Allergies: Coded Allergies: No Known Allergies (Unverified , 12/14/18) Subjective AFVSS on 3L non-verbal No cough no distress Pancytopenia, GNB BSI and proteus/e coli UTI K being repleted Objective Last 24 Hour Vital Signs Date Time Temp Pulse Resp B/P (MAP) Pulse Ox O2 Delivery O2 Flow Rate FiO2 01/04/19 12:00 3.0 01/04/19 12:00 50 01/04/19 12:00 Nasal Cannula 3.0 01/04/19 11:45 97.7 55 20 149/69 (95) 100 01/04/19 08:42 66 169/68 01/04/19 08:00 97.9 66 18 169/68 (101) 100 01/04/19 08:00 3.0 01/04/19 08:00 55 01/04/19 08:00 Nasal Cannula 3.0 01/04/19 07:10 70 18 Nasal Cannula 2.0 28 01/04/19 07:10 99 Nasal Cannula 2.0 28 01/04/19 07:10 Nasal Cannula 2.0 28 01/04/19 04:00 3.0 01/04/19 04:00 97.7 64 18 159/69 (99) 100 01/04/19 04:00 Nasal Cannula 3.0 01/04/19 03:52 54 01/04/19 00:00 3.0 01/04/19 00:00 Nasal Cannula 3.0 01/04/19 00:00 97.9 64 16 157/73 (101) 100 01/03/19 23:27 52 01/03/19 21:15 87 154/83 01/03/19 20:00 97.9 87 16 154/83 (106) 100 01/03/19 20:00 3.0 01/03/19 20:00 Room Air 3.0 01/03/19 19:25 89 01/03/19 18:55 Nasal Cannula 2.0 28 01/03/19 18:55 100 Nasal Cannula 2.0 28 01/03/19 18:54 77 20 Nasal Cannula 2.0 28 01/03/19 16:00 97.9 83 14 151/71 (97) 100 01/03/19 16:00 79 01/03/19 16:00 Venturi Mask 8.0 01/03/19 16:00 3.0 Intake and Output 01/03/19 01/04/19 19:00 07:00 Intake Total 400 ml 897.5 ml Output Total 1350 ml 1000 ml Balance -950 ml -102.5 ml Intake Free Water 400 ml 60 ml IV Total 0 ml 337.5 ml Blood Product 500 ml Output Urine Total 1350 ml 1000 ml General Appearance: no acute distress, other - non verbl HEENT: normocephalic, mucous membranes moist Respiratory/Chest: rhonchi Cardiovascular: normal peripheral pulses, normal rate, regular rhythm Abdomen: normal bowel sounds, soft, non tender, no organomegaly, non distended , other - GT Extremities: no cyanosis, no clubbing, no edema Microbiology Date/Time Source Procedure Growth Status 01/02/19 00:15 Blood Blood Culture - Preliminary Resulted 01/02/19 00:00 Blood Blood Culture - Preliminary Gram Negative Bacillus 1 Resulted 01/02/19 04:26 Nasal Nares MRSA Culture - Final Staphylococcus Aureus - Mrsa Complete 01/02/19 07:50 Indwelling Cath Urine Culture - Preliminary Escherichia Coli Proteus Mirabilis Resulted 01/02/19 00:44 Urine,Clean Catch Urine Culture - Final Proteus Mirabilis Complete 01/02/19 04:26 Rectum VRE Culture - Final Enterococcus Faecalis - Vre Complete Laboratory Tests 01/04/19 04:20: White Blood Count 2.3L, Red Blood Count 3.25L, Hemoglobin 9.8#L, Hematocrit 29.6 #L, Mean Corpuscular Volume 91, Mean Corpuscular Hemoglobin 30.3, Mean Corpuscular Hemoglobin Concent 33.2, Red Cell Distribution Width 14.7, Platelet Count 67L, Mean Platelet Volume 7.6, Neutrophils (%) (Auto) , Lymphocytes (%) ( Auto) , Monocytes (%) (Auto) , Eosinophils (%) (Auto) , Basophils (%) (Auto) , Differential Total Cells Counted 100, Neutrophils % (Manual) 76H, Lymphocytes % (Manual) 14L, Monocytes % (Manual) 9, Eosinophils % (Manual) 1, Basophils % ( Manual) 0, Band Neutrophils 0, Platelet Estimate DecreasedL, Platelet Morphology Normal, Sodium Level 148H, Potassium Level 2.7*L, Chloride Level 114H , Carbon Dioxide Level 24, Anion Gap 10, Blood Urea Nitrogen 24H, Creatinine 0.8 , Estimat Glomerular Filtration Rate , Glucose Level 115H, Calcium Level 8.6, Phosphorus Level 2.6, Magnesium Level 1.6L, Total Bilirubin 1.0, Direct Bilirubin 0.3, Aspartate Amino Transf (AST/SGOT) 27, Alanine Aminotransferase ( ALT/SGPT) 14, Alkaline Phosphatase 56, Total Protein 6.1L, Albumin 1.9L Current Medications Medications (Trade) Dose Ordered Sig/Laure Route PRN Reason Start Time Stop Time Status Last Admin Dose Admin Acetaminophen (Tylenol) 650 mg Q4H PRN GT Mild Pain/Temp > 100.5 01/02/19 06:45 02/01/19 06:44 Cefepime HCl 1 gm/ Dextrose 55 ml @ 110 mls/hr Q24H IVPB 01/02/19 13:00 01/09/19 12:59 01/04/19 13:13 Dextrose (Dextrose 50%) 25 ml Q30M PRN IV Hypoglycemia 01/02/19 07:00 02/01/19 06:59 Dextrose (Dextrose 50%) 50 ml Q30M PRN IV Hypoglycemia 01/02/19 07:00 02/01/19 06:59 Hydralazine HCl (Apresoline) 25 mg Q4H PRN GT bp over 160 syst 01/04/19 12:45 02/03/19 12:44 Metoprolol Tartrate (Lopressor) 12.5 mg Q12HR GT 01/04/19 21:00 02/01/19 21:26 Pantoprazole (Protonix) 40 mg EVERY 12 HOURS IVP 01/02/19 21:00 02/01/19 20:59 01/04/19 08:39 Potassium Chloride 100 ml @ 100 mls/hr Q1HR IVPB 01/04/19 09:00 01/04/19 14:59 01/04/19 14:13 Tigecycline 100 mg/Sodium Chloride 110 ml @ 110 mls/hr ONCE IVPB 01/04/19 15:00 01/04/19 16:00 Tigecycline 50 mg/ Sodium Chloride 110 ml @ 220 mls/hr EVERY 12 HOURS IVPB 01/04/19 21:00 01/11/19 20:59 Foreign Parekh MD Jan 04, 2019 14:49
--- NOTE | 2019-01-04 14:58 | NUR ---
Social Service Note SW spoke with patient's Angelika Lara [phone] to address code status and treatment plan of care. prefers discussion with his son Shady Lara [phone]. Message left for son. Awaiting return call.
[2019-01-04] MEDS ORDERED: Tigecycline 100 MG in NS 110 ML IVPB SCH (15:00)
[2019-01-04 16:00] VITALS: BP 154/55
--- NOTE | 2019-01-04 16:02 | NUR ---
Social Service Note TYREL received a return call from patient's son Shady and addressed plan of care and code status. Son is agreeable with DNR/DNI with hospice care. POLST completed and placed in chart for son to sign. Son states he will visit tonight or tomorrow morning. TYREL spoke with Clarita at [facility] [phone] and discussed patient returning under hospice. Referral faxed [phone]. Clarita will discuss with her DON which hospice patient should be referred too and will inform TYREL. Dr. Asencio and Dr. Parekh notified.
--- NOTE | 2019-01-04 17:55 | General Progress Note ---
Assessment/Plan Assessment/Plan # Pancytopenia (as was present on last several ad,issions), likely related to septicemia, appears new baseline 50-70k, several causes possible including viral , medication or intrabone marrow related. Now has a uti. Does have a splenomegaly. Also could be related to bone marrow disease/myelodysplasia --> Cont to monitor plt count for improvement --> US abd: Mild left hydronephrosis. Possible left renal calyceal calculi. Negative for gallstones or dilated ducts Debris noted within the bladder --> Hep panel and HIV are both negative --> given extremely poor condition do not recommend a bone marrow biopsy, have discussed with family 08/01/18 with --> prognosis is very poor thus may not be of best option to get bone marrow biopsy at this time --> will rediscuss once sepsis resolves --> transfuse if plt <20k --> abd us has been re-ordered to check for cirrhosis # Anemia of chronic disease. Multifactorial. Since admission Hgb has consistently remained between 8-9. --> Cont to monitor for stability --> Hgb goal above 7. Transfuse prn. --> IV iron completed prior admission and feritin is elevated # DVT of the left leg s/p IVC filter in 07/2018-- superficial femoral vein which is a deep vein, new onset, has not had these symptoms before. Lower hgb and plts --> given decreased h/h, low thrombocytopenia, do not recommend anticoag --> appreciate pulm recs --> smear reviewed and no schistocytes noted # Dehydration. IVF has been administered --> improved --> as per renal # DM OOC --> A1C goal <7 --> Cont on insulin iss # Bacteremia/prior UTI. --> ID is following. Appreciate recs. --> Pt on IV abx. --> Cultures surveillance as per id # PEG placement s/p 08/04/18 # Bioethics consult The timing of this note does not necessarily reflect the time of the patient was seen. Greatly appreciate consultation! Subjective Cardiovascular: Denies: no symptoms, chest pain, edema, irregular heart rate, lightheadedness, palpitations, syncope, other Respiratory: Denies: no symptoms, cough, orthopnea, shortness of breath, SOB with excertion, SOB at rest, sputum, stridor, wheezing, other Gastrointestinal/Abdominal: Denies: no symptoms, abdomen distended, abdominal pain, black stools, tarry stools, blood in stool, constipated, diarrhea, difficulty swallowing, nausea, poor appetite, poor fluid intake, rectal bleeding , vomiting, other Genitourinary: Denies: no symptoms, burning, discharge, frequency, flank pain, hematuria, incontinence, pain, urgency, other Neurologic/Psychiatric: Denies: no symptoms, anxiety, depressed, emotional problems, headache, numbness, paresthesia, pre-existing deficit, seizure, tingling, tremors, weakness, other Hematologic/Lymphatic: Denies: no symptoms, anemia, easy bleeding, easy bruising, other Allergies: Coded Allergies: No Known Allergies (Unverified , 12/14/18) Subjective 01/03: no events, cxr is pending, seen by others, 2l nc to continue 01/04: seen by pulm, to obtain bioethics consult as patient in and out of hospital several times in less than 3 months, code dnar recommended Objective Last 24 Hour Vital Signs Date Time Temp Pulse Resp B/P (MAP) Pulse Ox O2 Delivery O2 Flow Rate FiO2 01/04/19 16:00 62 01/04/19 16:00 97.9 56 18 154/55 (88) 100 01/04/19 16:00 Nasal Cannula 3.0 01/04/19 16:00 3.0 01/04/19 12:00 3.0 01/04/19 12:00 50 01/04/19 12:00 Nasal Cannula 3.0 01/04/19 11:45 97.7 55 20 149/69 (95) 100 01/04/19 08:42 66 169/68 01/04/19 08:00 97.9 66 18 169/68 (101) 100 01/04/19 08:00 3.0 01/04/19 08:00 55 01/04/19 08:00 Nasal Cannula 3.0 01/04/19 07:10 70 18 Nasal Cannula 2.0 28 01/04/19 07:10 99 Nasal Cannula 2.0 28 01/04/19 07:10 Nasal Cannula 2.0 28 01/04/19 04:00 3.0 01/04/19 04:00 97.7 64 18 159/69 (99) 100 01/04/19 04:00 Nasal Cannula 3.0 01/04/19 03:52 54 01/04/19 00:00 3.0 01/04/19 00:00 Nasal Cannula 3.0 01/04/19 00:00 97.9 64 16 157/73 (101) 100 01/03/19 23:27 52 01/03/19 21:15 87 154/83 01/03/19 20:00 97.9 87 16 154/83 (106) 100 01/03/19 20:00 3.0 01/03/19 20:00 Room Air 3.0 01/03/19 19:25 89 01/03/19 18:55 Nasal Cannula 2.0 28 01/03/19 18:55 100 Nasal Cannula 2.0 28 01/03/19 18:54 77 20 Nasal Cannula 2.0 28 Intake and Output 01/03/19 01/04/19 19:00 07:00 Intake Total 400 ml 897.5 ml Output Total 1350 ml 1000 ml Balance -950 ml -102.5 ml Intake Free Water 400 ml 60 ml IV Total 0 ml 337.5 ml Blood Product 500 ml Output Urine Total 1350 ml 1000 ml Laboratory Tests 01/04/19 04:20: White Blood Count 2.3L, Red Blood Count 3.25L, Hemoglobin 9.8#L, Hematocrit 29.6 #L, Mean Corpuscular Volume 91, Mean Corpuscular Hemoglobin 30.3, Mean Corpuscular Hemoglobin Concent 33.2, Red Cell Distribution Width 14.7, Platelet Count 67L, Mean Platelet Volume 7.6, Neutrophils (%) (Auto) , Lymphocytes (%) ( Auto) , Monocytes (%) (Auto) , Eosinophils (%) (Auto) , Basophils (%) (Auto) , Differential Total Cells Counted 100, Neutrophils % (Manual) 76H, Lymphocytes % (Manual) 14L, Monocytes % (Manual) 9, Eosinophils % (Manual) 1, Basophils % ( Manual) 0, Band Neutrophils 0, Platelet Estimate DecreasedL, Platelet Morphology Normal, Sodium Level 148H, Potassium Level 2.7*L, Chloride Level 114H , Carbon Dioxide Level 24, Anion Gap 10, Blood Urea Nitrogen 24H, Creatinine 0.8 , Estimat Glomerular Filtration Rate , Glucose Level 115H, Calcium Level 8.6, Phosphorus Level 2.6, Magnesium Level 1.6L, Total Bilirubin 1.0, Direct Bilirubin 0.3, Aspartate Amino Transf (AST/SGOT) 27, Alanine Aminotransferase ( ALT/SGPT) 14, Alkaline Phosphatase 56, Total Protein 6.1L, Albumin 1.9L Height (Feet): 5 Height (Inches): 5.00 Weight (Pounds): 135 Objective VITAL SIGNS: on nc now GENERAL: She is an elderly demented female, in no acute distress. Nonverbal. HEENT: Normocephalic and atraumatic. Op Moist mucous membranes. NECK: Supple without lymphadenopathy. CHEST: Clear, but rales at the bases. HEART: Regular rate and rhythm. ABDOMEN: Soft, nontender, and nondistended. ++ peg EXTREMITIES: No cce Dewayne Gayle MD Jan 04, 2019 17:55
[2019-01-04] MEDS ORDERED: NS 275ml ONE (17:59)
--- NOTE | 2019-01-04 19:23 | NUR ---
HAND-OFF: Report given to DONIS Braga. Stable condition.
[2019-01-04 20:00] VITALS: BP 149/66
--- NOTE | 2019-01-04 20:07 | NUR ---
NURSE NOTES: PT report has been received from Stephanie DYKES. pt cardiac care unit nurse is in place with SR noted as of now.pt is on 3L NC. pt is on G tube feeding at 40cc per/hr running Glucerna 1.2. no residuals noted. pt is tolerating feedings well. Iv site is located on R wrist 20 G patent and intact, no abnormalities noted. sacral wound noted, dressing is intact, pt change positions to alive pressure from sacral. pt is on neutropenic precautions. no signs of respiratory distress as of now. will continue plan of care.
[2019-01-04] MEDS: Tigecycline 50 MG in NS 110 ML IVPB SCH (20:46)
[2019-01-04] MEDS: Metoprolol Tartrate 12.5mg TAB GT SCH (20:46)
--- NOTE | 2019-01-04 21:52 | General Progress Note ---
Assessment/Plan Problem List: (1) Thrombocytopenia ICD Codes: D69.6 - Thrombocytopenia, unspecified SNOMED: 551702654 (2) Malnutrition ICD Codes: E46 - Unspecified protein-calorie malnutrition SNOMED: 57029329 (3) Altered mental status ICD Codes: R41.82 - Altered mental status, unspecified SNOMED: 754412400 (4) Feeding by G-tube ICD Codes: Z93.1 - Gastrostomy status SNOMED: 472305541, 067811071, 069148342 (5) Anemia ICD Codes: D64.9 - Anemia, unspecified SNOMED: 042979200 Qualifiers: Qualified Codes: D64.9 - Anemia, unspecified (6) Sepsis ICD Codes: A41.9 - Sepsis, unspecified organism SNOMED: 68565751 Qualifiers: Qualified Codes: A41.9 - Sepsis, unspecified organism (7) Dementia with behavioral disturbance ICD Codes: F03.91 - Unspecified dementia with behavioral disturbance SNOMED: 9446779150677 (8) Encephalopathy due to metabolic factor or toxin SNOMED: 770203258 (9) Decubitus skin ulcer ICD Codes: L89.90 - Pressure ulcer of unspecified site, unspecified stage SNOMED: 312949338 Status: unchanged Assessment/Plan hypokalemia hypernatremia severe pancytopenia severe anemia severe leukopenia severe thrombocytopenia bioethics consulte very ill patient favor comfort care and possible hospice Subjective ROS Limited/Unobtainable: Yes Allergies: Coded Allergies: No Known Allergies (Unverified , 12/14/18) Objective Last 24 Hour Vital Signs Date Time Temp Pulse Resp B/P (MAP) Pulse Ox O2 Delivery O2 Flow Rate FiO2 01/04/19 20:46 69 149/66 01/04/19 20:00 Nasal Cannula 2.0 28 01/04/19 20:00 98 Nasal Cannula 2.0 28 01/04/19 20:00 68 18 Nasal Cannula 2.0 28 01/04/19 16:00 62 01/04/19 16:00 97.9 56 18 154/55 (88) 100 01/04/19 16:00 Nasal Cannula 3.0 01/04/19 16:00 3.0 01/04/19 12:00 3.0 01/04/19 12:00 50 01/04/19 12:00 Nasal Cannula 3.0 01/04/19 11:45 97.7 55 20 149/69 (95) 100 01/04/19 08:42 66 169/68 01/04/19 08:00 97.9 66 18 169/68 (101) 100 01/04/19 08:00 3.0 01/04/19 08:00 55 01/04/19 08:00 Nasal Cannula 3.0 01/04/19 07:10 70 18 Nasal Cannula 2.0 28 01/04/19 07:10 99 Nasal Cannula 2.0 28 01/04/19 07:10 Nasal Cannula 2.0 28 01/04/19 04:00 3.0 01/04/19 04:00 97.7 64 18 159/69 (99) 100 01/04/19 04:00 Nasal Cannula 3.0 01/04/19 03:52 54 01/04/19 00:00 3.0 01/04/19 00:00 Nasal Cannula 3.0 01/04/19 00:00 97.9 64 16 157/73 (101) 100 01/03/19 23:27 52 Intake and Output 01/03/19 01/04/19 19:00 07:00 Intake Total 400 ml 897.5 ml Output Total 1350 ml 1000 ml Balance -950 ml -102.5 ml Intake Free Water 400 ml 60 ml IV Total 0 ml 337.5 ml Blood Product 500 ml Output Urine Total 1350 ml 1000 ml Laboratory Tests 01/04/19 04:20: White Blood Count 2.3L, Red Blood Count 3.25L, Hemoglobin 9.8#L, Hematocrit 29.6 #L, Mean Corpuscular Volume 91, Mean Corpuscular Hemoglobin 30.3, Mean Corpuscular Hemoglobin Concent 33.2, Red Cell Distribution Width 14.7, Platelet Count 67L, Mean Platelet Volume 7.6, Neutrophils (%) (Auto) , Lymphocytes (%) ( Auto) , Monocytes (%) (Auto) , Eosinophils (%) (Auto) , Basophils (%) (Auto) , Differential Total Cells Counted 100, Neutrophils % (Manual) 76H, Lymphocytes % (Manual) 14L, Monocytes % (Manual) 9, Eosinophils % (Manual) 1, Basophils % ( Manual) 0, Band Neutrophils 0, Platelet Estimate DecreasedL, Platelet Morphology Normal, Sodium Level 148H, Potassium Level 2.7*L, Chloride Level 114H , Carbon Dioxide Level 24, Anion Gap 10, Blood Urea Nitrogen 24H, Creatinine 0.8 , Estimat Glomerular Filtration Rate , Glucose Level 115H, Calcium Level 8.6, Phosphorus Level 2.6, Magnesium Level 1.6L, Total Bilirubin 1.0, Direct Bilirubin 0.3, Aspartate Amino Transf (AST/SGOT) 27, Alanine Aminotransferase ( ALT/SGPT) 14, Alkaline Phosphatase 56, Total Protein 6.1L, Albumin 1.9L Height (Feet): 5 Height (Inches): 5.00 Weight (Pounds): 135 General Appearance: lethargic, confused Cardiovascular: normal rate Yi Asencio MD Jan 04, 2019 21:52
--- NOTE | 2019-01-04 23:13 | Cardiology Progress Note ---
Assessment/Plan Assessment/Plan 1. Sinus tachycardia, likely due to sepsis and possibly pneumonia. Treatment of ST is to correct and treat the underlying etiology so in this sense, would be hydration and IV ABx therapy. 2. Slight elevation of troponin would be due to sepsis/tachycardia. No ischemic work up is required at this time. 3. Hx of CVA, agree with ASA and plavix taken at SNF as well as statin therapy. 4. Hx of HTN, continue hydralazine. 5. Hx of DM. Subjective Subjective Sinus rhythm at rate of 69. On NC oxygen. Objective Last 24 Hour Vital Signs Date Time Temp Pulse Resp B/P (MAP) Pulse Ox O2 Delivery O2 Flow Rate FiO2 01/04/19 20:46 69 149/66 01/04/19 20:00 Nasal Cannula 2.0 28 01/04/19 20:00 98 Nasal Cannula 2.0 28 01/04/19 20:00 68 01/04/19 20:00 97.9 69 14 149/66 (93) 100 01/04/19 20:00 68 18 Nasal Cannula 2.0 28 01/04/19 20:00 Nasal Cannula 3.0 01/04/19 16:00 62 01/04/19 16:00 97.9 56 18 154/55 (88) 100 01/04/19 16:00 Nasal Cannula 3.0 01/04/19 16:00 3.0 01/04/19 12:00 3.0 01/04/19 12:00 50 01/04/19 12:00 Nasal Cannula 3.0 01/04/19 11:45 97.7 55 20 149/69 (95) 100 01/04/19 08:42 66 169/68 01/04/19 08:00 97.9 66 18 169/68 (101) 100 01/04/19 08:00 3.0 01/04/19 08:00 55 01/04/19 08:00 Nasal Cannula 3.0 01/04/19 07:10 70 18 Nasal Cannula 2.0 28 01/04/19 07:10 99 Nasal Cannula 2.0 28 01/04/19 07:10 Nasal Cannula 2.0 28 01/04/19 04:00 3.0 01/04/19 04:00 97.7 64 18 159/69 (99) 100 01/04/19 04:00 Nasal Cannula 3.0 01/04/19 03:52 54 01/04/19 00:00 3.0 01/04/19 00:00 Nasal Cannula 3.0 01/04/19 00:00 97.9 64 16 157/73 (101) 100 01/03/19 23:27 52 Intake and Output 01/03/19 01/04/19 19:00 07:00 Intake Total 400 ml 897.5 ml Output Total 1350 ml 1000 ml Balance -950 ml -102.5 ml Intake Free Water 400 ml 60 ml IV Total 0 ml 337.5 ml Blood Product 500 ml Output Urine Total 1350 ml 1000 ml Laboratory Tests Test 01/04/19 04:20 White Blood Count 2.3 K/UL (4.8-10.8) L Red Blood Count 3.25 M/UL (4.20-5.40) L Hemoglobin 9.8 G/DL (12.0-16.0) #L Hematocrit 29.6 % (37.0-47.0) #L Mean Corpuscular Volume 91 FL (80-99) Mean Corpuscular Hemoglobin 30.3 PG (27.0-31.0) Mean Corpuscular Hemoglobin Concent 33.2 G/DL (32.0-36.0) Red Cell Distribution Width 14.7 % (11.6-14.8) Platelet Count 67 K/UL (150-450) L Mean Platelet Volume 7.6 FL (6.5-10.1) Neutrophils (%) (Auto) % (45.0-75.0) Lymphocytes (%) (Auto) % (20.0-45.0) Monocytes (%) (Auto) % (1.0-10.0) Eosinophils (%) (Auto) % (0.0-3.0) Basophils (%) (Auto) % (0.0-2.0) Differential Total Cells Counted 100 Neutrophils % (Manual) 76 % (45-75) H Lymphocytes % (Manual) 14 % (20-45) L Monocytes % (Manual) 9 % (1-10) Eosinophils % (Manual) 1 % (0-3) Basophils % (Manual) 0 % (0-2) Band Neutrophils 0 % (0-8) Platelet Estimate Decreased L Platelet Morphology Normal Sodium Level 148 MMOL/L (136-145) H Potassium Level 2.7 MMOL/L (3.5-5.1) *L Chloride Level 114 MMOL/L (98-107) H Carbon Dioxide Level 24 MMOL/L (21-32) Anion Gap 10 mmol/L (5-15) Blood Urea Nitrogen 24 mg/dL (7-18) H Creatinine 0.8 MG/DL (0.55-1.30) Estimat Glomerular Filtration Rate mL/min (>60) Glucose Level 115 MG/DL (74-106) H Calcium Level 8.6 MG/DL (8.5-10.1) Phosphorus Level 2.6 MG/DL (2.5-4.9) Magnesium Level 1.6 MG/DL (1.8-2.4) L Total Bilirubin 1.0 MG/DL (0.2-1.0) Direct Bilirubin 0.3 MG/DL (0.0-0.3) Aspartate Amino Transf (AST/SGOT) 27 U/L (15-37) Alanine Aminotransferase (ALT/SGPT) 14 U/L (12-78) Alkaline Phosphatase 56 U/L (46-116) Total Protein 6.1 G/DL (6.4-8.2) L Albumin 1.9 G/DL (3.4-5.0) L Microbiology Date/Time Source Procedure Growth Status 01/02/19 00:15 Blood Blood Culture - Preliminary Resulted 01/02/19 00:00 Blood Blood Culture - Preliminary Gram Negative Bacillus 1 Resulted 01/02/19 04:26 Nasal Nares MRSA Culture - Final Staphylococcus Aureus - Mrsa Complete 01/02/19 07:50 Indwelling Cath Urine Culture - Preliminary Escherichia Coli Proteus Mirabilis Resulted 01/02/19 00:44 Urine,Clean Catch Urine Culture - Final Proteus Mirabilis Complete 01/02/19 04:26 Rectum VRE Culture - Final Enterococcus Faecalis - Vre Complete Objective HEENT: Atraumatic, normocephalic, PERRLA, EOMI. NECK: - JVD, carotid upstroke +2 with no bruits. LUNGS: Diminished breath sounds B/L. CARDIOVASCULAR: Normal S1, S2 is physiologically split, no murmurs, gallops or rubs. ABDOMEN: Bowel sounds are intact, no tenderness, masses, or organomegaly. EXTREMITIES: Pulses in the upper extremities are +2. No edema, clubbing or cyanosis. Deepak Aldana MD Jan 04, 2019 23:13
[2019-01-05] VITALS (7 sets, daily range): BP systolic 98–157; BP diastolic 55–77
[2019-01-05 05:26] LABS: HEMATOCRIT 32.7 % (37.0-47.0); MEAN CORPUSCULAR VOLUME 90 FL (80-99); PLATELET COUNT 94 K/UL (150-450); RED BLOOD COUNT 3.61 M/UL (4.20-5.40); RED CELL DISTRIBUTION WIDTH 14.4 % (11.6-14.8)
[2019-01-05 05:40] LABS: ANION GAP 9 mmol/L (5-15); BLOOD UREA NITROGEN 31 mg/dL (7-18); CALCIUM 8.4 MG/DL (8.5-10.1); CARBON DIOXIDE 24 MMOL/L (21-32); CHLORIDE 110 MMOL/L (98-107); CREATININE 0.8 MG/DL (0.55-1.30); PHOSPHORUS 2.3 MG/DL (2.5-4.9); POTASSIUM 3.5 MMOL/L (3.5-5.1); SODIUM 143 MMOL/L (136-145)
--- NOTE | 2019-01-05 07:38 | NUR ---
HAND-OFF: Report given to Lindsey DYKES.
--- NOTE | 2019-01-05 07:58 | NUR ---
Eyes open, not following commands, not tracking. Non-verbal. No s/s of pain at this time. Receiving 3L of oxygen via N/C with no distress noted. IVF running at prescribed rate. F/C intact and draining well. Neutropenic precautions followed. Sacral redness covered with optifoam. VSS at this time. Bed in lowest position. Call light within reach. Will continue to monitor patient.
[2019-01-05] MEDS: Metoprolol Tartrate 12.5mg TAB GT SCH ×3 (09:00→23:31)
[2019-01-05] MEDS: Pantoprazole Inj IVP SCH (09:00)
--- NOTE | 2019-01-05 09:41 | Pulmonology Progress Note ---
Assessment/Plan Problems: (1) Pancytopenia (2) Sepsis (3) UTI (urinary tract infection) (4) S/P IVC filter (5) Encephalopathy due to metabolic factor or toxin (6) Dementia with behavioral disturbance (7) Feeding by G-tube (8) Malnutrition Assessment/Plan Optimize pulmonary hygiene/mobilize as tolerated Titrate down FiO2 to keep SaO2 > 92% PRN HHN's Abx per ID, F/U Cx's Monitor volumes and renal function Monitor counts, replete as needed, FU heme recs Appreciate TYREL yap, d/w son and , now DNAT with plan to D/C to SNF on hospice, polst in chart awaiting signature Subjective Allergies: Coded Allergies: No Known Allergies (Unverified , 12/14/18) Subjective AFVSS O2 needs stable No cough no distress TYREL spoke with and son ---> DNAR, plan to D/C to SNF with hospice Objective Last 24 Hour Vital Signs Date Time Temp Pulse Resp B/P (MAP) Pulse Ox O2 Delivery O2 Flow Rate FiO2 01/05/19 04:00 72 01/05/19 04:00 98.2 72 16 157/72 (100) 100 01/05/19 04:00 Nasal Cannula 3.0 01/05/19 00:00 Nasal Cannula 3.0 01/05/19 00:00 71 01/05/19 00:00 97.3 72 14 144/73 (96) 100 01/04/19 20:46 69 149/66 01/04/19 20:00 Nasal Cannula 2.0 28 01/04/19 20:00 98 Nasal Cannula 2.0 28 01/04/19 20:00 68 01/04/19 20:00 97.9 69 14 149/66 (93) 100 01/04/19 20:00 68 18 Nasal Cannula 2.0 28 01/04/19 20:00 Nasal Cannula 3.0 01/04/19 16:00 62 01/04/19 16:00 97.9 56 18 154/55 (88) 100 01/04/19 16:00 Nasal Cannula 3.0 01/04/19 16:00 3.0 01/04/19 12:00 3.0 01/04/19 12:00 50 01/04/19 12:00 Nasal Cannula 3.0 01/04/19 11:45 97.7 55 20 149/69 (95) 100 Intake and Output 01/04/19 01/05/19 18:59 06:59 Intake Total 1692.5 ml 650 ml Output Total 850 ml Balance 1692.5 ml -200 ml Intake Free Water 160 ml IV Total 1352.5 ml 110 ml Tube Feeding 180 ml 540 ml Output Urine Total 850 ml General Appearance: cachetic, other - non-verbal HEENT: normocephalic, atraumatic, anicteric, mucous membranes moist Respiratory/Chest: rhonchi Cardiovascular: normal peripheral pulses, normal rate, regular rhythm Abdomen: normal bowel sounds, soft, non tender, no organomegaly, non distended , no mass, other - GT Extremities: no cyanosis, no clubbing, other - trace edema Laboratory Tests 01/05/19 03:07: White Blood Count 4.0#L, Red Blood Count 3.61L, Hemoglobin 11.0L, Hematocrit 32.7L, Mean Corpuscular Volume 90, Mean Corpuscular Hemoglobin 30.5, Mean Corpuscular Hemoglobin Concent 33.7, Red Cell Distribution Width 14.4, Platelet Count 94L, Mean Platelet Volume 7.4, Neutrophils (%) (Auto) , Lymphocytes (%) ( Auto) , Monocytes (%) (Auto) , Eosinophils (%) (Auto) , Basophils (%) (Auto) , Sodium Level 143, Potassium Level 3.5, Chloride Level 110H, Carbon Dioxide Level 24, Anion Gap 9, Blood Urea Nitrogen 31H, Creatinine 0.8, Estimat Glomerular Filtration Rate , Glucose Level 167H, Calcium Level 8.4L, Phosphorus Level 2.3L, Magnesium Level 2.3 Current Medications Medications (Trade) Dose Ordered Sig/Laure Route PRN Reason Start Time Stop Time Status Last Admin Dose Admin Acetaminophen (Tylenol) 650 mg Q4H PRN GT Mild Pain/Temp > 100.5 01/02/19 06:45 02/01/19 06:44 Albuterol/ Ipratropium (Albuterol/ Ipratropium) 3 ml Q4H PRN HHN Shortness of Breath 01/04/19 14:45 01/09/19 14:44 Cefepime HCl 1 gm/ Dextrose 55 ml @ 110 mls/hr Q24H IVPB 01/02/19 13:00 01/09/19 12:59 01/04/19 13:13 Dextrose (Dextrose 50%) 25 ml Q30M PRN IV Hypoglycemia 01/02/19 07:00 02/01/19 06:59 Dextrose (Dextrose 50%) 50 ml Q30M PRN IV Hypoglycemia 01/02/19 07:00 02/01/19 06:59 Hydralazine HCl (Apresoline) 25 mg Q4H PRN GT bp over 160 syst 01/04/19 12:45 02/03/19 12:44 Metoprolol Tartrate (Lopressor) 12.5 mg Q12HR GT 01/04/19 21:00 02/01/19 21:26 01/04/19 20:46 Pantoprazole (Protonix) 40 mg EVERY 12 HOURS IVP 01/02/19 21:00 02/01/19 20:59 01/04/19 20:45 Tigecycline 50 mg/ Sodium Chloride 110 ml @ 220 mls/hr EVERY 12 HOURS IVPB 01/04/19 21:00 01/11/19 20:59 01/04/19 20:46 Foreign Parekh MD Jan 05, 2019 09:41
--- NOTE | 2019-01-05 09:47 | General Progress Note ---
Assessment/Plan Problem List: (1) Thrombocytopenia ICD Codes: D69.6 - Thrombocytopenia, unspecified SNOMED: 632460519 (2) Malnutrition ICD Codes: E46 - Unspecified protein-calorie malnutrition SNOMED: 42543830 (3) Altered mental status ICD Codes: R41.82 - Altered mental status, unspecified SNOMED: 358247732 (4) Feeding by G-tube ICD Codes: Z93.1 - Gastrostomy status SNOMED: 284707772, 190880984, 175269828 (5) Anemia ICD Codes: D64.9 - Anemia, unspecified SNOMED: 682495331 Qualifiers: Qualified Codes: D64.9 - Anemia, unspecified (6) Sepsis ICD Codes: A41.9 - Sepsis, unspecified organism SNOMED: 00861650 Qualifiers: Qualified Codes: A41.9 - Sepsis, unspecified organism (7) Dementia with behavioral disturbance ICD Codes: F03.91 - Unspecified dementia with behavioral disturbance SNOMED: 3908344229597 (8) Encephalopathy due to metabolic factor or toxin SNOMED: 508399682 (9) Decubitus skin ulcer ICD Codes: L89.90 - Pressure ulcer of unspecified site, unspecified stage SNOMED: 539813993 Assessment/Plan given her mutiple comorbidites and severity and overall condition i favor comfort care and hospice bioethics consulte very ill patient favor comfort care and possible hospice Subjective Allergies: Coded Allergies: No Known Allergies (Unverified , 12/14/18) Objective Last 24 Hour Vital Signs Date Time Temp Pulse Resp B/P (MAP) Pulse Ox O2 Delivery O2 Flow Rate FiO2 01/05/19 04:00 72 01/05/19 04:00 98.2 72 16 157/72 (100) 100 01/05/19 04:00 Nasal Cannula 3.0 01/05/19 00:00 Nasal Cannula 3.0 01/05/19 00:00 71 01/05/19 00:00 97.3 72 14 144/73 (96) 100 01/04/19 20:46 69 149/66 01/04/19 20:00 Nasal Cannula 2.0 28 01/04/19 20:00 98 Nasal Cannula 2.0 28 01/04/19 20:00 68 01/04/19 20:00 97.9 69 14 149/66 (93) 100 01/04/19 20:00 68 18 Nasal Cannula 2.0 28 01/04/19 20:00 Nasal Cannula 3.0 01/04/19 16:00 62 01/04/19 16:00 97.9 56 18 154/55 (88) 100 01/04/19 16:00 Nasal Cannula 3.0 01/04/19 16:00 3.0 01/04/19 12:00 3.0 01/04/19 12:00 50 01/04/19 12:00 Nasal Cannula 3.0 01/04/19 11:45 97.7 55 20 149/69 (95) 100 Intake and Output 01/04/19 01/05/19 18:59 06:59 Intake Total 1692.5 ml 650 ml Output Total 850 ml Balance 1692.5 ml -200 ml Intake Free Water 160 ml IV Total 1352.5 ml 110 ml Tube Feeding 180 ml 540 ml Output Urine Total 850 ml Laboratory Tests 01/05/19 03:07: White Blood Count 4.0#L, Red Blood Count 3.61L, Hemoglobin 11.0L, Hematocrit 32.7L, Mean Corpuscular Volume 90, Mean Corpuscular Hemoglobin 30.5, Mean Corpuscular Hemoglobin Concent 33.7, Red Cell Distribution Width 14.4, Platelet Count 94L, Mean Platelet Volume 7.4, Neutrophils (%) (Auto) , Lymphocytes (%) ( Auto) , Monocytes (%) (Auto) , Eosinophils (%) (Auto) , Basophils (%) (Auto) , Sodium Level 143, Potassium Level 3.5, Chloride Level 110H, Carbon Dioxide Level 24, Anion Gap 9, Blood Urea Nitrogen 31H, Creatinine 0.8, Estimat Glomerular Filtration Rate , Glucose Level 167H, Calcium Level 8.4L, Phosphorus Level 2.3L, Magnesium Level 2.3 Height (Feet): 5 Height (Inches): 5.00 Weight (Pounds): 135 Yi Asencio MD Jan 05, 2019 09:47
[2019-01-05] MEDS: Tigecycline 50 MG in NS 110 ML IVPB SCH (10:19)
[2019-01-05] MEDS ORDERED: Potassium Phosphate 20 MM in NS 275 ML IV ONE (11:00)
--- NOTE | 2019-01-05 11:25 | GI Progress Note ---
Assessment/Plan Problems: (1) Anemia ICD Codes: D64.9 - Anemia, unspecified SNOMED: 401879778 Qualifiers: Qualified Codes: D64.9 - Anemia, unspecified (2) Acute respiratory failure with hypoxemia ICD Codes: J96.01 - Acute respiratory failure with hypoxia SNOMED: 365542223 (3) Feeding by G-tube ICD Codes: Z93.1 - Gastrostomy status SNOMED: 373101788, 922199515, 042203136 (4) Altered mental status ICD Codes: R41.82 - Altered mental status, unspecified SNOMED: 852272872 (5) Thrombocytopenia ICD Codes: D69.6 - Thrombocytopenia, unspecified SNOMED: 517302381 (6) Dehydration ICD Codes: E86.0 - Dehydration SNOMED: 33052739 Status: stable Status Narrative Discussed with Dr. Argueta Assessment/Plan Abdominal US reviewed, see full report. Equivocally slightly coarsened hepatic echogenicity, could indicate hepatocellular disease. Abdominal pelvic CT reviewed supportive care pulmonary recommendations G-tube feedings prn transfusions ppi reglan if needed abx per ID Electrolyte correction Bowel regimen fu labs The patient was seen and examined at bedside and all new and available data was reviewed in the patients chart. I agree with the above findings, impression and plan. (Patient seen earlier today. Signature stamp does not reflect patient encounter time.). - Edwardo Argueta MD Subjective Subjective limited Objective Last 24 Hour Vital Signs Date Time Temp Pulse Resp B/P (MAP) Pulse Ox O2 Delivery O2 Flow Rate FiO2 01/05/19 09:00 77 153/70 01/05/19 08:00 Nasal Cannula 3.0 01/05/19 08:00 72 01/05/19 08:00 97.9 73 18 153/73 (99) 100 01/05/19 04:00 72 01/05/19 04:00 98.2 72 16 157/72 (100) 100 01/05/19 04:00 Nasal Cannula 3.0 01/05/19 00:00 Nasal Cannula 3.0 01/05/19 00:00 71 01/05/19 00:00 97.3 72 14 144/73 (96) 100 01/04/19 20:46 69 149/66 01/04/19 20:00 Nasal Cannula 2.0 28 01/04/19 20:00 98 Nasal Cannula 2.0 28 01/04/19 20:00 68 01/04/19 20:00 97.9 69 14 149/66 (93) 100 01/04/19 20:00 68 18 Nasal Cannula 2.0 28 01/04/19 20:00 Nasal Cannula 3.0 01/04/19 16:00 62 01/04/19 16:00 97.9 56 18 154/55 (88) 100 01/04/19 16:00 Nasal Cannula 3.0 01/04/19 16:00 3.0 01/04/19 12:00 3.0 01/04/19 12:00 50 01/04/19 12:00 Nasal Cannula 3.0 01/04/19 11:45 97.7 55 20 149/69 (95) 100 Intake and Output 01/04/19 01/05/19 18:59 06:59 Intake Total 1692.5 ml 650 ml Output Total 850 ml Balance 1692.5 ml -200 ml Intake Free Water 160 ml IV Total 1352.5 ml 110 ml Tube Feeding 180 ml 540 ml Output Urine Total 850 ml Laboratory Tests Test 01/05/19 03:07 White Blood Count 4.0 K/UL (4.8-10.8) #L Red Blood Count 3.61 M/UL (4.20-5.40) L Hemoglobin 11.0 G/DL (12.0-16.0) L Hematocrit 32.7 % (37.0-47.0) L Mean Corpuscular Volume 90 FL (80-99) Mean Corpuscular Hemoglobin 30.5 PG (27.0-31.0) Mean Corpuscular Hemoglobin Concent 33.7 G/DL (32.0-36.0) Red Cell Distribution Width 14.4 % (11.6-14.8) Platelet Count 94 K/UL (150-450) L Mean Platelet Volume 7.4 FL (6.5-10.1) Neutrophils (%) (Auto) % (45.0-75.0) Lymphocytes (%) (Auto) % (20.0-45.0) Monocytes (%) (Auto) % (1.0-10.0) Eosinophils (%) (Auto) % (0.0-3.0) Basophils (%) (Auto) % (0.0-2.0) Sodium Level 143 MMOL/L (136-145) Potassium Level 3.5 MMOL/L (3.5-5.1) Chloride Level 110 MMOL/L (98-107) H Carbon Dioxide Level 24 MMOL/L (21-32) Anion Gap 9 mmol/L (5-15) Blood Urea Nitrogen 31 mg/dL (7-18) H Creatinine 0.8 MG/DL (0.55-1.30) Estimat Glomerular Filtration Rate mL/min (>60) Glucose Level 167 MG/DL (74-106) H Calcium Level 8.4 MG/DL (8.5-10.1) L Phosphorus Level 2.3 MG/DL (2.5-4.9) L Magnesium Level 2.3 MG/DL (1.8-2.4) Height (Feet): 5 Height (Inches): 5.00 Weight (Pounds): 135 General Appearance: WD/WN, no apparent distress, alert Cardiovascular: normal rate Respiratory/Chest: normal breath sounds, no respiratory distress Abdominal Exam: normal bowel sounds, non tender, soft, GT site - Clean dry and intact Extremities: non-tender Aidee Powell NP Jan 05, 2019 11:25
[2019-01-05] MEDS: Cefepime HCl 1 GM in D5W 55 ML IVPB SCH (11:59)
--- NOTE | 2019-01-05 12:00 | NUR ---
NURSE NOTES: VSS. No distress noted. Will continue to monitor patient.
--- NOTE | 2019-01-05 12:31 | NUR ---
Social Service Notes SW placed two calls to Clarita at [facility] regarding bed and hospice company to follow. No return call. Son also has no visited to sign POLST. Will follow up.
--- NOTE | 2019-01-05 13:05 | Infectious Diseases Prog Note ---
Assessment/Plan Assessment/Plan A; Proteus sepsis Complicated UTI with E. coli & Proteus Hydronephrosis Advance dementia s/p CVA P; discontinue Cefepime & Tygacil start on Meropenem Subjective ROS Limited/Unobtainable: Yes Neurologic: Reports: other - more alert Allergies: Coded Allergies: No Known Allergies (Unverified , 12/14/18) Objective Vital Signs Last 24 Hour Vital Signs Date Time Temp Pulse Resp B/P (MAP) Pulse Ox O2 Delivery O2 Flow Rate FiO2 01/05/19 12:00 98.2 64 16 145/76 (99) 100 01/05/19 12:00 Nasal Cannula 3.0 01/05/19 09:00 77 153/70 01/05/19 08:00 Nasal Cannula 3.0 01/05/19 08:00 72 01/05/19 08:00 97.9 73 18 153/73 (99) 100 01/05/19 04:00 72 01/05/19 04:00 98.2 72 16 157/72 (100) 100 01/05/19 04:00 Nasal Cannula 3.0 01/05/19 00:00 Nasal Cannula 3.0 01/05/19 00:00 71 01/05/19 00:00 97.3 72 14 144/73 (96) 100 01/04/19 20:46 69 149/66 01/04/19 20:00 Nasal Cannula 2.0 28 01/04/19 20:00 98 Nasal Cannula 2.0 28 01/04/19 20:00 68 01/04/19 20:00 97.9 69 14 149/66 (93) 100 01/04/19 20:00 68 18 Nasal Cannula 2.0 28 01/04/19 20:00 Nasal Cannula 3.0 01/04/19 16:00 62 01/04/19 16:00 97.9 56 18 154/55 (88) 100 01/04/19 16:00 Nasal Cannula 3.0 01/04/19 16:00 3.0 Height (Feet): 5 Height (Inches): 5.00 Weight (Pounds): 135 HEENT: mucous membranes moist Respiratory/Chest: lungs clear Cardiovascular: normal rate Abdomen: soft, non tender, other - GT feeding Extremities: no edema Neurologic/Psychiatric: aphasia Laboratory Tests Test 01/05/19 03:07 White Blood Count 4.0 K/UL (4.8-10.8) #L Red Blood Count 3.61 M/UL (4.20-5.40) L Hemoglobin 11.0 G/DL (12.0-16.0) L Hematocrit 32.7 % (37.0-47.0) L Mean Corpuscular Volume 90 FL (80-99) Mean Corpuscular Hemoglobin 30.5 PG (27.0-31.0) Mean Corpuscular Hemoglobin Concent 33.7 G/DL (32.0-36.0) Red Cell Distribution Width 14.4 % (11.6-14.8) Platelet Count 94 K/UL (150-450) L Mean Platelet Volume 7.4 FL (6.5-10.1) Neutrophils (%) (Auto) % (45.0-75.0) Lymphocytes (%) (Auto) % (20.0-45.0) Monocytes (%) (Auto) % (1.0-10.0) Eosinophils (%) (Auto) % (0.0-3.0) Basophils (%) (Auto) % (0.0-2.0) Sodium Level 143 MMOL/L (136-145) Potassium Level 3.5 MMOL/L (3.5-5.1) Chloride Level 110 MMOL/L (98-107) H Carbon Dioxide Level 24 MMOL/L (21-32) Anion Gap 9 mmol/L (5-15) Blood Urea Nitrogen 31 mg/dL (7-18) H Creatinine 0.8 MG/DL (0.55-1.30) Estimat Glomerular Filtration Rate mL/min (>60) Glucose Level 167 MG/DL (74-106) H Calcium Level 8.4 MG/DL (8.5-10.1) L Phosphorus Level 2.3 MG/DL (2.5-4.9) L Magnesium Level 2.3 MG/DL (1.8-2.4) Current Medications Medications (Trade) Dose Ordered Sig/Laure Route PRN Reason Start Time Stop Time Status Last Admin Dose Admin Acetaminophen (Tylenol) 650 mg Q4H PRN GT Mild Pain/Temp > 100.5 01/02/19 06:45 02/01/19 06:44 Albuterol/ Ipratropium (Albuterol/ Ipratropium) 3 ml Q4H PRN HHN Shortness of Breath 01/04/19 14:45 01/09/19 14:44 Cefepime HCl 1 gm/ Dextrose 55 ml @ 110 mls/hr Q24H IVPB 01/02/19 13:00 01/09/19 12:59 01/05/19 11:59 Dextrose (Dextrose 50%) 25 ml Q30M PRN IV Hypoglycemia 01/02/19 07:00 02/01/19 06:59 Dextrose (Dextrose 50%) 50 ml Q30M PRN IV Hypoglycemia 01/02/19 07:00 02/01/19 06:59 Hydralazine HCl (Apresoline) 25 mg Q4H PRN GT bp over 160 syst 01/04/19 12:45 02/03/19 12:44 Metoprolol Tartrate (Lopressor) 12.5 mg Q12HR GT 01/04/19 21:00 02/01/19 21:26 01/05/19 09:00 Pantoprazole (Protonix) 40 mg EVERY 12 HOURS IVP 01/02/19 21:00 02/01/19 20:59 01/05/19 09:00 Potassium Phosphate 20 mm/ Sodium Chloride 281.6667 ml @ 46.944 m... ONCE ONCE IV 01/05/19 11:00 01/05/19 16:59 01/05/19 11:59 Tigecycline 50 mg/ Sodium Chloride 110 ml @ 220 mls/hr EVERY 12 HOURS IVPB 01/04/19 21:00 01/11/19 20:59 01/05/19 10:19 Shimon Card MD Jan 05, 2019 13:05
--- NOTE | 2019-01-05 13:32 | NUR ---
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 98.2 HR 64 RR 16 B/P 148/76 3L NC O2 SAT 98% WBC 4.0 BUN 31 IS: MEROPENEM IV K-PHOS IV PROTONIX IV ALB HHN STEP DOWN STATUS
[2019-01-05] MEDS: Meropenem 500 MG in NS 55 ML IVPB SCH ×2 (14:20→21:43)
--- NOTE | 2019-01-05 14:23 | Nephrology Progress Note ---
Assessment/Plan Problem List: (1) Dehydration (2) Hyperkalemia (3) UTI (urinary tract infection) (4) Acute respiratory failure with hypoxemia (5) HTN (hypertension) Assessment Dehydration leading to pre renal azotemia (1) Diabetic nephropathy and proteinuria (2) HyperKalemia Electrolyte imbalance (3) Anemia (4) UTI (urinary tract infection) (5) CAD Plan Hydrate add Norvasc adjust BP and BS K Phos , KCl , MgSo4 IV as needed antibiotics avoid nephrotoxics anemia mac BP meds per orders Subjective ROS Limited/Unobtainable: No Constitutional: Reports: malaise, weakness Objective Objective Last 24 Hour Vital Signs Date Time Temp Pulse Resp B/P (MAP) Pulse Ox O2 Delivery O2 Flow Rate FiO2 01/05/19 12:00 98.2 64 16 145/76 (99) 100 01/05/19 12:00 Nasal Cannula 3.0 01/05/19 09:00 77 153/70 01/05/19 08:00 Nasal Cannula 3.0 01/05/19 08:00 72 01/05/19 08:00 97.9 73 18 153/73 (99) 100 01/05/19 04:00 72 01/05/19 04:00 98.2 72 16 157/72 (100) 100 01/05/19 04:00 Nasal Cannula 3.0 01/05/19 00:00 Nasal Cannula 3.0 01/05/19 00:00 71 01/05/19 00:00 97.3 72 14 144/73 (96) 100 01/04/19 20:46 69 149/66 01/04/19 20:00 Nasal Cannula 2.0 28 01/04/19 20:00 98 Nasal Cannula 2.0 28 01/04/19 20:00 68 01/04/19 20:00 97.9 69 14 149/66 (93) 100 01/04/19 20:00 68 18 Nasal Cannula 2.0 28 01/04/19 20:00 Nasal Cannula 3.0 01/04/19 16:00 62 01/04/19 16:00 97.9 56 18 154/55 (88) 100 01/04/19 16:00 Nasal Cannula 3.0 01/04/19 16:00 3.0 Intake and Output 01/04/19 01/05/19 19:00 07:00 Intake Total 1657.5 ml 660 ml Output Total 850 ml Balance 1657.5 ml -190 ml Intake Free Water 160 ml IV Total 1277.5 ml 110 ml Tube Feeding 220 ml 550 ml Output Urine Total 850 ml Laboratory Tests 01/05/19 03:07: White Blood Count 4.0#L, Red Blood Count 3.61L, Hemoglobin 11.0L, Hematocrit 32.7L, Mean Corpuscular Volume 90, Mean Corpuscular Hemoglobin 30.5, Mean Corpuscular Hemoglobin Concent 33.7, Red Cell Distribution Width 14.4, Platelet Count 94L, Mean Platelet Volume 7.4, Neutrophils (%) (Auto) , Lymphocytes (%) ( Auto) , Monocytes (%) (Auto) , Eosinophils (%) (Auto) , Basophils (%) (Auto) , Sodium Level 143, Potassium Level 3.5, Chloride Level 110H, Carbon Dioxide Level 24, Anion Gap 9, Blood Urea Nitrogen 31H, Creatinine 0.8, Estimat Glomerular Filtration Rate , Glucose Level 167H, Calcium Level 8.4L, Phosphorus Level 2.3L, Magnesium Level 2.3 Height (Feet): 5 Height (Inches): 5.00 Weight (Pounds): 135 General Appearance: no apparent distress Cardiovascular: normal rate Respiratory/Chest: decreased breath sounds Abdomen: distended Parvez Bergman MD Jan 05, 2019 14:23
[2019-01-05] MEDS ORDERED: Lisinopril 2.5mg tab GT SCH (14:30)
--- NOTE | 2019-01-05 15:02 | Surgery Progress Note ---
Surgery Progress Note Subjective Symptoms: improved Objective Last 24 Hour Vital Signs Date Time Temp Pulse Resp B/P (MAP) Pulse Ox O2 Delivery O2 Flow Rate FiO2 01/05/19 12:00 98.2 64 16 145/76 (99) 100 01/05/19 12:00 Nasal Cannula 3.0 01/05/19 11:49 59 01/05/19 09:00 77 153/70 01/05/19 08:00 Nasal Cannula 3.0 01/05/19 08:00 72 01/05/19 08:00 97.9 73 18 153/73 (99) 100 01/05/19 04:00 72 01/05/19 04:00 98.2 72 16 157/72 (100) 100 01/05/19 04:00 Nasal Cannula 3.0 01/05/19 00:00 Nasal Cannula 3.0 01/05/19 00:00 71 01/05/19 00:00 97.3 72 14 144/73 (96) 100 01/04/19 20:46 69 149/66 01/04/19 20:00 Nasal Cannula 2.0 28 01/04/19 20:00 98 Nasal Cannula 2.0 28 01/04/19 20:00 68 01/04/19 20:00 97.9 69 14 149/66 (93) 100 01/04/19 20:00 68 18 Nasal Cannula 2.0 28 01/04/19 20:00 Nasal Cannula 3.0 01/04/19 16:00 62 01/04/19 16:00 97.9 56 18 154/55 (88) 100 01/04/19 16:00 Nasal Cannula 3.0 01/04/19 16:00 3.0 I&O Intake and Output 01/04/19 01/05/19 19:00 07:00 Intake Total 1657.5 ml 660 ml Output Total 850 ml Balance 1657.5 ml -190 ml Intake Free Water 160 ml IV Total 1277.5 ml 110 ml Tube Feeding 220 ml 550 ml Output Urine Total 850 ml Dressing: saturated Wound: other Drains: other Cardiovascular: RSR Respiratory: decreased breath sounds Abdomen: soft, non-tender, present bowel sounds Extremities: no cyanosis Laboratory Tests Test 01/05/19 03:07 White Blood Count 4.0 K/UL (4.8-10.8) #L Red Blood Count 3.61 M/UL (4.20-5.40) L Hemoglobin 11.0 G/DL (12.0-16.0) L Hematocrit 32.7 % (37.0-47.0) L Mean Corpuscular Volume 90 FL (80-99) Mean Corpuscular Hemoglobin 30.5 PG (27.0-31.0) Mean Corpuscular Hemoglobin Concent 33.7 G/DL (32.0-36.0) Red Cell Distribution Width 14.4 % (11.6-14.8) Platelet Count 94 K/UL (150-450) L Mean Platelet Volume 7.4 FL (6.5-10.1) Neutrophils (%) (Auto) % (45.0-75.0) Lymphocytes (%) (Auto) % (20.0-45.0) Monocytes (%) (Auto) % (1.0-10.0) Eosinophils (%) (Auto) % (0.0-3.0) Basophils (%) (Auto) % (0.0-2.0) Sodium Level 143 MMOL/L (136-145) Potassium Level 3.5 MMOL/L (3.5-5.1) Chloride Level 110 MMOL/L (98-107) H Carbon Dioxide Level 24 MMOL/L (21-32) Anion Gap 9 mmol/L (5-15) Blood Urea Nitrogen 31 mg/dL (7-18) H Creatinine 0.8 MG/DL (0.55-1.30) Estimat Glomerular Filtration Rate mL/min (>60) Glucose Level 167 MG/DL (74-106) H Calcium Level 8.4 MG/DL (8.5-10.1) L Phosphorus Level 2.3 MG/DL (2.5-4.9) L Magnesium Level 2.3 MG/DL (1.8-2.4) Plan Problems: (1) Decubitus skin ulcer Assessment & Plan: Pt presented on admission with full thickness pressure injury R gluteal cleft. Base of wound is moist -viable. Edges adherent to base of wound(L)1cm x (W)0.4cm x (D)0.2cm. Non-blanchable erythema with additional shearing periwound and L gluteal cleft. Erythema with moisture and scattered dark purple areas at base of wound.Non-blanchable erythema without induration periwound.Both heels dry and firm. No other areas of skin concerns noted. Tx.Plan: Cleanse Sacral area with Saline. Apply Triad Paste .Apply Cavilon Skin Barrier Periwound. Cover with Optifoam drsg. Change Q 3 days and prn. Apply Triad Paste to Cleft of buttocks with each perineal care Apply Cavilon Skin Barrier to each heel. Cover each heel with Optifoam drsg .Change every 7 days and prn. AP/THEA mattress overlay. Reposition at least every 2hours or as tolerated. Off-load heels with pillow. (2) Fever Assessment & Plan: IV Abx trend labs ID input appreciated will monitor (3) Malnutrition Assessment & Plan: DAILY ESTIMATED NEEDS: Needs based on Pulmonary, wounds/ 52.7kg 25-30 kcals/kg 3403-0758 total kcals 1.25-1.5 g protein/kg 66-78 g total protein 25-30 mL/kg 6935-7668 total fluid mLs NUTRITION DIAGNOSIS: 1) Increased kcal and protein needs R/T wound healing as evidenced by pt w/ wounds including full thickeness wound @ Rt gluteal cleft and nonblanchable erythema @ lt gluteal cleft. 2) Swallowing difficulty R/T dysphagia as evidenced by pt is PEG dep. CURRENT TF:NPO ENTERAL NUTRITION RECOMMENDATIONS: Glucerna 1.2 @ 50ml/hr x 24 hrs to provide 1200ml, 1440kcal, 72g prot, 966ml free water * Initiate TF as medically appropriate * Initiate Glucerna 1.2 @ 30ml/hr x 6hrs, advance 10ml q 4-6 hrs as tolerated to goal rate. * Flush per MD/ HOB over 30 degrees ADDITIONAL RECOMMENDATIONS: * Per SNF: ht=62", wt=98lbs on 11/16/18 Bedscale wt on 01/0204=625gmb, possible recent significant wt gain ---> Recalibrate bedscale wt, now w/ P200 mattress, weekly wt monitoring * Wound healing: Add Timbo 1pkt BID * Check lytes daily, replete as needed Cisco Montgomery Jan 05, 2019 15:02
--- NOTE | 2019-01-05 15:38 | NUR ---
RD ASSESSMENT & RECOMMENDATIONS SEE CARE ACTIVITY FOR COMPLETE ASSESSMENT DAILY ESTIMATED NEEDS: Needs based on Pulmonary, wounds/ 52.7kg 25-30 kcals/kg 7085-0018 total kcals 1.25-1.5 g protein/kg 66-78 g total protein 25-30 mL/kg 8853-4364 total fluid mLs NUTRITION DIAGNOSIS: 1) Increased kcal and protein needs R/T wound healing as evidenced by pt w/ wounds including full thickeness wound @ Rt gluteal cleft and nonblanchable erythema @ lt gluteal cleft. 2) Swallowing difficulty R/T dysphagia as evidenced by pt is PEG dep. CURRENT TF:Glucerna 1.2 @ 50ml/hr x 24 hrs ENTERAL NUTRITION RECOMMENDATIONS: Glucerna 1.2 @ 50ml/hr x 24 hrs to provide 1200ml, 1440kcal, 72g prot, 966ml free water * Maintain current TF * Flush per MD/ HOB over 30 degrees ADDITIONAL RECOMMENDATIONS: * Per SNF: ht=62", wt=98lbs on 11/16/18 Bedscale wt on 01/0201=774mus, possible recent significant wt gain ---> Recalibrate bedscale wt, now w/ P200 mattress, weekly wt monitoring * Wound healing: Add Timbo 1pkt BID * Check lytes daily, replete as needed . .
--- NOTE | 2019-01-05 15:55 | General Progress Note ---
Assessment/Plan Assessment/Plan # Pancytopenia (as was present on last several ad,issions), likely related to septicemia, appears new baseline 50-70k, several causes possible including viral , medication or intrabone marrow related. Now has a uti. Does have a splenomegaly. Also could be related to bone marrow disease/myelodysplasia --> Cont to monitor plt count for improvement --> US abd: Mild left hydronephrosis. Possible left renal calyceal calculi. Negative for gallstones or dilated ducts Debris noted within the bladder --> Hep panel and HIV are both negative --> given extremely poor condition do not recommend a bone marrow biopsy, have discussed with family 08/01/18 with --> prognosis is very poor thus may not be of best option to get bone marrow biopsy at this time --> will rediscuss once sepsis resolves --> transfuse if plt <20k --> abd us has been re-ordered to check for cirrhosis # Anemia of chronic disease. Multifactorial. Since admission Hgb has consistently remained between 8-9. --> Cont to monitor for stability --> Hgb goal above 7. Transfuse prn. --> IV iron completed prior admission and feritin is elevated # DVT of the left leg s/p IVC filter in 07/2018-- superficial femoral vein which is a deep vein, new onset, has not had these symptoms before. Lower hgb and plts --> given decreased h/h, low thrombocytopenia, do not recommend anticoag --> appreciate pulm recs --> smear reviewed and no schistocytes noted # Dehydration. IVF has been administered --> improved --> as per renal # DM OOC --> A1C goal <7 --> Cont on insulin sliding scale # Bacteremia/prior UTI. --> ID is following. Appreciate recs. --> Pt on IV abx. --> Cultures surveillance as per id # PEG placement s/p 08/04/18 # Bioethics consult The timing of this note does not necessarily reflect the time of the patient was seen. Greatly appreciate consultation! Subjective Constitutional: Denies: no symptoms, chills, diaphoresis, fever, malaise, weakness, other HEENT: Denies: no symptoms, eye pain, blurred vision, tearing, double vision, ear pain, ear discharge, nose pain, nose congestion, throat pain, throat swelling, mouth pain, mouth swelling, other Respiratory: Denies: no symptoms, cough, orthopnea, shortness of breath, SOB with excertion, SOB at rest, sputum, stridor, wheezing, other Gastrointestinal/Abdominal: Denies: no symptoms, abdomen distended, abdominal pain, black stools, tarry stools, blood in stool, constipated, diarrhea, difficulty swallowing, nausea, poor appetite, poor fluid intake, rectal bleeding , vomiting, other Genitourinary: Denies: no symptoms, burning, discharge, frequency, flank pain, hematuria, incontinence, pain, urgency, other Neurologic/Psychiatric: Denies: no symptoms, anxiety, depressed, emotional problems, headache, numbness, paresthesia, pre-existing deficit, seizure, tingling, tremors, weakness, other Endocrine: Denies: no symptoms, excessive sweating, flushing, intolerance to cold, intolerance to heat, increased hunger, increased thirst, increased urine, unexplained weight gain, unexplained weight loss, other Allergies: Coded Allergies: No Known Allergies (Unverified , 12/14/18) Subjective 01/03: no events, cxr is pending, seen by others, 2l nc to continue 01/04: seen by pulm, to obtain bioethics consult as patient in and out of hospital several times in less than 3 months, code dnar recommended 01/05: on norvasc starting today, otherwise cbc better Objective Last 24 Hour Vital Signs Date Time Temp Pulse Resp B/P (MAP) Pulse Ox O2 Delivery O2 Flow Rate FiO2 01/05/19 15:17 145/76 01/05/19 12:00 98.2 64 16 145/76 (99) 100 01/05/19 12:00 Nasal Cannula 3.0 01/05/19 11:49 59 01/05/19 09:00 77 153/70 01/05/19 08:00 Nasal Cannula 3.0 01/05/19 08:00 72 01/05/19 08:00 97.9 73 18 153/73 (99) 100 01/05/19 04:00 72 01/05/19 04:00 98.2 72 16 157/72 (100) 100 01/05/19 04:00 Nasal Cannula 3.0 01/05/19 00:00 Nasal Cannula 3.0 01/05/19 00:00 71 01/05/19 00:00 97.3 72 14 144/73 (96) 100 01/04/19 20:46 69 149/66 01/04/19 20:00 Nasal Cannula 2.0 28 01/04/19 20:00 98 Nasal Cannula 2.0 28 01/04/19 20:00 68 01/04/19 20:00 97.9 69 14 149/66 (93) 100 01/04/19 20:00 68 18 Nasal Cannula 2.0 28 01/04/19 20:00 Nasal Cannula 3.0 01/04/19 16:00 62 01/04/19 16:00 97.9 56 18 154/55 (88) 100 01/04/19 16:00 Nasal Cannula 3.0 01/04/19 16:00 3.0 Intake and Output 01/04/19 01/05/19 19:00 07:00 Intake Total 1657.5 ml 660 ml Output Total 850 ml Balance 1657.5 ml -190 ml Intake Free Water 160 ml IV Total 1277.5 ml 110 ml Tube Feeding 220 ml 550 ml Output Urine Total 850 ml Laboratory Tests 01/05/19 03:07: White Blood Count 4.0#L, Red Blood Count 3.61L, Hemoglobin 11.0L, Hematocrit 32.7L, Mean Corpuscular Volume 90, Mean Corpuscular Hemoglobin 30.5, Mean Corpuscular Hemoglobin Concent 33.7, Red Cell Distribution Width 14.4, Platelet Count 94L, Mean Platelet Volume 7.4, Neutrophils (%) (Auto) , Lymphocytes (%) ( Auto) , Monocytes (%) (Auto) , Eosinophils (%) (Auto) , Basophils (%) (Auto) , Sodium Level 143, Potassium Level 3.5, Chloride Level 110H, Carbon Dioxide Level 24, Anion Gap 9, Blood Urea Nitrogen 31H, Creatinine 0.8, Estimat Glomerular Filtration Rate , Glucose Level 167H, Calcium Level 8.4L, Phosphorus Level 2.3L, Magnesium Level 2.3 Height (Feet): 5 Height (Inches): 5.00 Weight (Pounds): 135 Objective VITAL SIGNS: on nc now GENERAL: She is an elderly demented female, in no acute distress. Nonverbal. HEENT: Normocephalic and atraumatic. Op Moist mucous membranes. NECK: Supple without lymphadenopathy. CHEST: Clear, but rales at the bases. HEART: Regular rate and rhythm. ABDOMEN: Soft, nontender, and nondistended. ++ peg EXTREMITIES: No cce Dewayne Gayle MD Jan 05, 2019 15:55
--- NOTE | 2019-01-05 16:00 | NUR ---
NURSE NOTES: Patient turned and repositione. BM x1. No distress noted. VSS. Will continue to monitor patient.
--- NOTE | 2019-01-05 16:10 | NUR ---
*-* INSURANCE *-* UPDATED CLINICALS AND REVIEWS FAXED TO: [facility] PLEASE FAX THE REVIEW/CLINICAL NCM: [id number] [phone]
--- NOTE | 2019-01-05 18:55 | NUR ---
TRANSFER TO FLOOR: Patient transferred to Med surg, per Hospital Bed. Report given to DONIS Shook using sbar. No Belongings. Family and or S/O informed of transfer.
--- NOTE | 2019-01-05 18:57 | NUR ---
NURSE NOTES: RN received pt from [facility] in stable condition. Vitals WNL, no acute distress, no SOB, afebrile. Pt in isolation; neutropenic precautions. R SCD only, L leg DVT confirmed by marilee duplex. IV patent, vera secured. Redness in sacral area/ coccyx, photo taken and uploaded, optifoam applied. Pt currently full code, son to sign POLST. Bed in low locked position, call light within reach. Continue plan of care.
[2019-01-05] MEDS ORDERED: Acetaminophen 650mg/20.3ml GT PRN (18:59)
[2019-01-05] MEDS ORDERED: Albuterol/Ipratropium 3ml neb HHN PRN (18:59)
[2019-01-05] MEDS ORDERED: HydrALAZINE 25mg tab GT PRN (18:59)
--- NOTE | 2019-01-05 19:23 | NUR ---
HAND-OFF: Report given to DONIS Barrett.
--- NOTE | 2019-01-05 19:24 | NUR ---
NURSE NOTES: Pt received pt in stable condition. Vitals WNL, no acute distress, no SOB, afebrile. Pt in isolation; on neutropenic precautions. R SCD only, as L leg DVT was confirmed by marilee duplex. IV patent, vera catheter secured, draining. Redness in sacral area/ coccyx, photo taken and uploaded, optifoam applied. Pt currently full code, son to sign POLST. Bed in low locked position, call light within reach. Bed alarm on. Continue plan of care. Will follow up when son arrives to sign the POLST.
--- NOTE | 2019-01-05 19:24 | NUR ---
HAND-OFF: Report given to Maricarmen DYKES.
--- NOTE | 2019-01-05 20:39 | NUR ---
NURSE NOTES: Pt's son arrived to visit his mother. He also just signed POLST for DNR, no advance directive, lonf term artificial nutrition (GT), comfort focused treatment. Updated son on pt status and transfer
--- NOTE | 2019-01-05 23:13 | NUR ---
RETAIL SALES LEAD Note: RETAIL SALES LEAD was called at [id number] by 4e, and notified MD patel. Pt transferred to at . See RETAIL SALES LEAD documentation form for full report.patient remains in the room,program strategist called because of change of hr from 80's/min to 160/min but not sustained, hr down to 120 while in the patient's room
--- NOTE | 2019-01-05 23:55 | Cardiology Progress Note ---
Assessment/Plan Assessment/Plan 1. Sinus tachycardia, likely due to sepsis and possibly pneumonia, continue hydration and IV ABx therapy. 2. Slight elevation of troponin would be due to sepsis/tachycardia. No ischemic work up is required at this time. 3. Hx of CVA, agree with ASA and plavix taken at SNF as well as statin therapy. 4. Hx of HTN, continue hydralazine. 5. Hx of DM. Subjective Subjective Sinus rhythm at rate of 89. Objective Last 24 Hour Vital Signs Date Time Temp Pulse Resp B/P (MAP) Pulse Ox O2 Delivery O2 Flow Rate FiO2 01/05/19 21:00 112 124/75 01/05/19 21:00 Nasal Cannula 3.0 01/05/19 20:00 98.5 89 18 98/55 (69) 92 01/05/19 19:07 98.8 76 16 147/68 (94) 99 01/05/19 17:15 Nasal Cannula 2.0 28 01/05/19 17:15 100 Nasal Cannula 2.0 28 01/05/19 17:15 75 20 Nasal Cannula 2.0 01/05/19 16:00 98.2 72 16 150/77 (101) 100 01/05/19 16:00 Nasal Cannula 3.0 01/05/19 16:00 68 01/05/19 15:17 145/76 01/05/19 12:00 98.2 64 16 145/76 (99) 100 01/05/19 12:00 Nasal Cannula 3.0 01/05/19 11:49 59 01/05/19 09:00 77 153/70 01/05/19 08:00 Nasal Cannula 3.0 01/05/19 08:00 72 01/05/19 08:00 97.9 73 18 153/73 (99) 100 01/05/19 04:00 72 01/05/19 04:00 98.2 72 16 157/72 (100) 100 01/05/19 04:00 Nasal Cannula 3.0 01/05/19 00:00 Nasal Cannula 3.0 01/05/19 00:00 71 01/05/19 00:00 97.3 72 14 144/73 (96) 100 Intake and Output 01/04/19 01/05/19 19:00 07:00 Intake Total 1657.5 ml 660 ml Output Total 850 ml Balance 1657.5 ml -190 ml Intake Free Water 160 ml IV Total 1277.5 ml 110 ml Tube Feeding 220 ml 550 ml Output Urine Total 850 ml Laboratory Tests Test 01/05/19 03:07 White Blood Count 4.0 K/UL (4.8-10.8) #L Red Blood Count 3.61 M/UL (4.20-5.40) L Hemoglobin 11.0 G/DL (12.0-16.0) L Hematocrit 32.7 % (37.0-47.0) L Mean Corpuscular Volume 90 FL (80-99) Mean Corpuscular Hemoglobin 30.5 PG (27.0-31.0) Mean Corpuscular Hemoglobin Concent 33.7 G/DL (32.0-36.0) Red Cell Distribution Width 14.4 % (11.6-14.8) Platelet Count 94 K/UL (150-450) L Mean Platelet Volume 7.4 FL (6.5-10.1) Neutrophils (%) (Auto) % (45.0-75.0) Lymphocytes (%) (Auto) % (20.0-45.0) Monocytes (%) (Auto) % (1.0-10.0) Eosinophils (%) (Auto) % (0.0-3.0) Basophils (%) (Auto) % (0.0-2.0) Sodium Level 143 MMOL/L (136-145) Potassium Level 3.5 MMOL/L (3.5-5.1) Chloride Level 110 MMOL/L (98-107) H Carbon Dioxide Level 24 MMOL/L (21-32) Anion Gap 9 mmol/L (5-15) Blood Urea Nitrogen 31 mg/dL (7-18) H Creatinine 0.8 MG/DL (0.55-1.30) Estimat Glomerular Filtration Rate mL/min (>60) Glucose Level 167 MG/DL (74-106) H Calcium Level 8.4 MG/DL (8.5-10.1) L Phosphorus Level 2.3 MG/DL (2.5-4.9) L Magnesium Level 2.3 MG/DL (1.8-2.4) Objective HEENT: Atraumatic, normocephalic, PERRLA, EOMI. NECK: - JVD, carotid upstroke +2 with no bruits. LUNGS: Diminished breath sounds B/L. CARDIOVASCULAR: Normal S1, S2 is physiologically split, no murmurs, gallops or rubs. ABDOMEN: Bowel sounds are intact, no tenderness, masses, or organomegaly. EXTREMITIES: Pulses in the upper extremities are +2. No edema, clubbing or cyanosis. Deepak Aldana MD Jan 05, 2019 23:55
[2019-01-06] VITALS: BP 206/120
--- NOTE | 2019-01-06 00:05 | NUR ---
NURSE NOTES: Contacted Dr Asencio, and received order to change code to DNR as POLST is signed. Will follow up and sign in am. Also notified him of pt change in condition BP and HR were significantly elevated BP 200/100, HR up to 161. BP is now stabilized at 124/75 and HR is down to 111. Will continue to monitor.
[2019-01-06 02:05] VITALS: BP 124/73
[2019-01-06 04:00] VITALS: BP 156/75
[2019-01-06] MEDS: Meropenem 500 MG in NS 55 ML IVPB SCH ×3 (05:44→13:15)
[2019-01-06 06:52] LABS: HEMATOCRIT 31.5 % (37.0-47.0); HEMOGLOBIN 10.6 G/DL (12.0-16.0); MEAN CORPUSCULAR VOLUME 91 FL (80-99); PLATELET COUNT 89 K/UL (150-450); RED BLOOD COUNT 3.45 M/UL (4.20-5.40); WHITE BLOOD COUNT 4.5 K/UL (4.8-10.8)
[2019-01-06 07:42] LABS: ANION GAP 7 mmol/L (5-15); BLOOD UREA NITROGEN 31 mg/dL (7-18); CALCIUM 8.2 MG/DL (8.5-10.1); CARBON DIOXIDE 27 MMOL/L (21-32); CHLORIDE 115 MMOL/L (98-107); CREATININE 0.8 MG/DL (0.55-1.30); PHOSPHORUS 3.6 MG/DL (2.5-4.9); POTASSIUM 3.4 MMOL/L (3.5-5.1); SODIUM 149 MMOL/L (136-145)
--- NOTE | 2019-01-06 07:43 | NUR ---
HAND-OFF: Report given to Ashley Hope RN.
--- NOTE | 2019-01-06 07:57 | NUR ---
NURSE NOTES: Report received from Maricarmen DYKES, patient received sleeping in bed. No signs of pain observed. Patient is connected to blood pressure machine for continuous monitoring of vital signs. Tube feeding running at 50cc/hr. HOB elevated, bed locked in lowest position. Will continue to monitor.
[2019-01-06 08:00] VITALS: BP 154/74
[2019-01-06] MEDS: Metoprolol Tartrate 12.5mg TAB GT SCH (08:22)
[2019-01-06] MEDS ORDERED: Lisinopril 2.5mg tab GT SCH (09:00)
--- NOTE | 2019-01-06 09:36 | General Progress Note ---
Assessment/Plan Problem List: (1) Pancytopenia ICD Codes: D61.818 - Other pancytopenia SNOMED: 729625505 (2) HTN (hypertension) ICD Codes: I10 - Essential (primary) hypertension SNOMED: 40837525 (3) Decubitus skin ulcer ICD Codes: L89.90 - Pressure ulcer of unspecified site, unspecified stage SNOMED: 161213365 (4) Anemia ICD Codes: D64.9 - Anemia, unspecified SNOMED: 972385624 Qualifiers: Qualified Codes: D64.9 - Anemia, unspecified (5) Feeding by G-tube ICD Codes: Z93.1 - Gastrostomy status SNOMED: 749825559, 865993864, 446483317 Assessment/Plan Abdominal US reviewed, see full report. Equivocally slightly coarsened hepatic echogenicity, could indicate hepatocellular disease. Abdominal pelvic CT reviewed supportive care pulmonary recommendations G-tube feedings>> increase to 55 prn transfusions ppi reglan if needed abx per ID Electrolyte correction Bowel regimen fu labs Subjective ROS Limited/Unobtainable: No Allergies: Coded Allergies: No Known Allergies (Unverified , 12/14/18) Objective Last 24 Hour Vital Signs Date Time Temp Pulse Resp B/P (MAP) Pulse Ox O2 Delivery O2 Flow Rate FiO2 01/06/19 08:22 68 154/74 01/06/19 08:22 154/74 01/06/19 08:00 98.2 71 16 154/74 (100) 99 01/06/19 08:00 Nasal Cannula 3.0 01/06/19 04:00 98.5 72 20 156/75 (102) 100 01/06/19 04:00 Nasal Cannula 3.0 01/06/19 02:07 Nasal Cannula 3.0 01/06/19 02:05 98.5 110 18 124/73 (90) 97 01/06/19 00:00 98.2 160 15 206/120 (148) 92 01/06/19 00:00 Nasal Cannula 3.0 01/05/19 21:00 112 124/75 01/05/19 21:00 Nasal Cannula 3.0 01/05/19 20:00 98.5 89 18 98/55 (69) 92 01/05/19 19:07 98.8 76 16 147/68 (94) 99 01/05/19 17:15 Nasal Cannula 2.0 01/05/19 17:15 100 Nasal Cannula 2.0 01/05/19 17:15 75 20 Nasal Cannula 2.0 01/05/19 16:00 98.2 72 16 150/77 (101) 100 01/05/19 16:00 Nasal Cannula 3.0 01/05/19 16:00 68 01/05/19 15:17 145/76 01/05/19 12:00 98.2 64 16 145/76 (99) 100 01/05/19 12:00 Nasal Cannula 3.0 01/05/19 11:49 59 Intake and Output 01/05/19 01/06/19 18:59 06:59 Intake Total 655 ml 93.88 ml Output Total 1200 ml 1000 ml Balance -545 ml -906.12 ml IV Total 55 ml 93.88 ml Tube Feeding 600 ml Output Urine Total 1200 ml 1000 ml # Bowel Movements 1 3 Laboratory Tests 01/06/19 06:10: White Blood Count 4.5L, Red Blood Count 3.45L, Hemoglobin 10.6L, Hematocrit 31.5L, Mean Corpuscular Volume 91, Mean Corpuscular Hemoglobin 30.7, Mean Corpuscular Hemoglobin Concent 33.6, Red Cell Distribution Width 15.0H, Platelet Count 89L, Mean Platelet Volume 7.2, Neutrophils (%) (Auto) , Lymphocytes (%) (Auto) , Monocytes (%) (Auto) , Eosinophils (%) (Auto) , Basophils (%) (Auto) , Differential Total Cells Counted 100, Neutrophils % ( Manual) 74, Lymphocytes % (Manual) 18L, Monocytes % (Manual) 5, Eosinophils % ( Manual) 3, Basophils % (Manual) 0, Band Neutrophils 0, Platelet Estimate DecreasedL, Platelet Morphology Normal, Anisocytosis 1+, Sodium Level 149H, Potassium Level 3.4L, Chloride Level 115H, Carbon Dioxide Level 27, Anion Gap 7 , Blood Urea Nitrogen 31H, Creatinine 0.8, Estimat Glomerular Filtration Rate , Glucose Level 164H, Calcium Level 8.2L, Phosphorus Level 3.6 Height (Feet): 5 Height (Inches): 5.00 Weight (Pounds): 135 General Appearance: no apparent distress EENT: normal ENT inspection Neck: supple Cardiovascular: normal rate Respiratory/Chest: decreased breath sounds Abdomen: normal bowel sounds, non tender, soft Extremities: non-tender Edwardo Argueta MD Jan 06, 2019 09:36
--- NOTE | 2019-01-06 09:37 | Pulmonology Progress Note ---
Assessment/Plan Assessment/Plan Problems: (1) Pancytopenia (2) Sepsis (3) UTI (urinary tract infection) (4) S/P IVC filter (5) Encephalopathy due to metabolic factor or toxin (6) Dementia with behavioral disturbance (7) Feeding by G-tube (8) Malnutrition Assessment/Plan Optimize pulmonary hygiene/mobilize as tolerated Titrate down FiO2 to keep SaO2 > 92% PRN HHN's Abx per ID, F/U Cx's Monitor volumes and renal function Monitor counts, replete as needed, FU heme recs DNAR with plan to D/C to SNF on hospice, polst in chart Subjective ROS Limited/Unobtainable: Yes Allergies: Coded Allergies: No Known Allergies (Unverified , 12/14/18) Objective Last 24 Hour Vital Signs Date Time Temp Pulse Resp B/P (MAP) Pulse Ox O2 Delivery O2 Flow Rate FiO2 01/06/19 08:22 68 154/74 01/06/19 08:22 154/74 01/06/19 08:00 98.2 71 16 154/74 (100) 99 01/06/19 08:00 Nasal Cannula 3.0 01/06/19 04:00 98.5 72 20 156/75 (102) 100 01/06/19 04:00 Nasal Cannula 3.0 01/06/19 02:07 Nasal Cannula 3.0 01/06/19 02:05 98.5 110 18 124/73 (90) 97 01/06/19 00:00 98.2 160 15 206/120 (148) 92 01/06/19 00:00 Nasal Cannula 3.0 01/05/19 21:00 112 124/75 01/05/19 21:00 Nasal Cannula 3.0 01/05/19 20:00 98.5 89 18 98/55 (69) 92 01/05/19 19:07 98.8 76 16 147/68 (94) 99 01/05/19 17:15 Nasal Cannula 2.0 28 01/05/19 17:15 100 Nasal Cannula 2.0 28 01/05/19 17:15 75 20 Nasal Cannula 2.0 28 01/05/19 16:00 98.2 72 16 150/77 (101) 100 01/05/19 16:00 Nasal Cannula 3.0 01/05/19 16:00 68 01/05/19 15:17 145/76 01/05/19 12:00 98.2 64 16 145/76 (99) 100 01/05/19 12:00 Nasal Cannula 3.0 01/05/19 11:49 59 Intake and Output 01/05/19 01/06/19 19:00 07:00 Intake Total 651.94 ml 46.94 ml Output Total 1200 ml 1000 ml Balance -548.06 ml -953.06 ml IV Total 101.94 ml 46.94 ml Tube Feeding 550 ml Output Urine Total 1200 ml 1000 ml # Bowel Movements 1 3 General Appearance: no acute distress HEENT: mucous membranes moist Respiratory/Chest: lungs clear Cardiovascular: normal rate Abdomen: soft, non tender Extremities: no edema Neurologic/Psychiatric: unresponsiveness Laboratory Tests 01/06/19 06:10: White Blood Count 4.5L, Red Blood Count 3.45L, Hemoglobin 10.6L, Hematocrit 31.5L, Mean Corpuscular Volume 91, Mean Corpuscular Hemoglobin 30.7, Mean Corpuscular Hemoglobin Concent 33.6, Red Cell Distribution Width 15.0H, Platelet Count 89L, Mean Platelet Volume 7.2, Neutrophils (%) (Auto) , Lymphocytes (%) (Auto) , Monocytes (%) (Auto) , Eosinophils (%) (Auto) , Basophils (%) (Auto) , Differential Total Cells Counted 100, Neutrophils % ( Manual) 74, Lymphocytes % (Manual) 18L, Monocytes % (Manual) 5, Eosinophils % ( Manual) 3, Basophils % (Manual) 0, Band Neutrophils 0, Platelet Estimate DecreasedL, Platelet Morphology Normal, Anisocytosis 1+, Sodium Level 149H, Potassium Level 3.4L, Chloride Level 115H, Carbon Dioxide Level 27, Anion Gap 7 , Blood Urea Nitrogen 31H, Creatinine 0.8, Estimat Glomerular Filtration Rate , Glucose Level 164H, Calcium Level 8.2L, Phosphorus Level 3.6 Current Medications Medications (Trade) Dose Ordered Sig/Laure Route PRN Reason Start Time Stop Time Status Last Admin Dose Admin Acetaminophen (Tylenol) 650 mg Q4H PRN GT Mild Pain/Temp > 100.5 01/05/19 18:59 02/01/19 18:58 Albuterol/ Ipratropium (Albuterol/ Ipratropium) 3 ml Q4H PRN HHN Shortness of Breath 01/05/19 18:59 01/09/19 18:58 Dextrose (Dextrose 50%) 25 ml Q30M PRN IV Hypoglycemia 01/05/19 18:59 02/01/19 18:58 Dextrose (Dextrose 50%) 50 ml Q30M PRN IV Hypoglycemia 01/05/19 18:59 02/04/19 18:58 Hydralazine HCl (Apresoline) 25 mg Q4H PRN GT bp over 160 syst 01/05/19 18:59 02/03/19 18:58 Lansoprazole (Prevacid) 30 mg BID GT 01/06/19 09:00 02/04/19 17:59 01/06/19 08:22 Lisinopril (Zestril) 2.5 mg DAILY GT 01/06/19 09:00 02/04/19 14:29 01/06/19 08:22 Meropenem 500 mg/ Sodium Chloride 55 ml @ 110 mls/hr EVERY 8 HOURS IVPB 01/05/19 22:00 01/10/19 13:59 01/06/19 05:45 Metoprolol Tartrate (Lopressor) 12.5 mg Q12HR GT 01/05/19 21:00 02/01/19 21:26 01/06/19 08:22 Potassium Chloride (K-Dur) 20 meq TWICE A DAY GT 01/06/19 09:30 02/05/19 09:29 Lalo Mccullough MD Jan 06, 2019 09:37
--- NOTE | 2019-01-06 10:25 | Infectious Diseases Prog Note ---
Assessment/Plan Assessment/Plan A; Proteus sepsis Complicated UTI with E. coli & Proteus Hydronephrosis Advance dementia s/p CVA P; continue Meropenem Subjective ROS Limited/Unobtainable: Yes Constitutional: Reports: other - doing better, tranferred from step down unit to regular floor Allergies: Coded Allergies: No Known Allergies (Unverified , 12/14/18) Objective Vital Signs Last 24 Hour Vital Signs Date Time Temp Pulse Resp B/P (MAP) Pulse Ox O2 Delivery O2 Flow Rate FiO2 01/06/19 08:22 68 154/74 01/06/19 08:22 154/74 01/06/19 08:00 98.2 71 16 154/74 (100) 99 01/06/19 08:00 Nasal Cannula 3.0 01/06/19 04:00 98.5 72 20 156/75 (102) 100 01/06/19 04:00 Nasal Cannula 3.0 01/06/19 02:07 Nasal Cannula 3.0 01/06/19 02:05 98.5 110 18 124/73 (90) 97 01/06/19 00:00 98.2 160 15 206/120 (148) 92 01/06/19 00:00 Nasal Cannula 3.0 01/05/19 21:00 112 124/75 01/05/19 21:00 Nasal Cannula 3.0 01/05/19 20:00 98.5 89 18 98/55 (69) 92 01/05/19 19:07 98.8 76 16 147/68 (94) 99 01/05/19 17:15 Nasal Cannula 2.0 28 01/05/19 17:15 100 Nasal Cannula 2.0 28 01/05/19 17:15 75 20 Nasal Cannula 2.0 28 01/05/19 16:00 98.2 72 16 150/77 (101) 100 01/05/19 16:00 Nasal Cannula 3.0 01/05/19 16:00 68 01/05/19 15:17 145/76 01/05/19 12:00 98.2 64 16 145/76 (99) 100 01/05/19 12:00 Nasal Cannula 3.0 01/05/19 11:49 59 Height (Feet): 5 Height (Inches): 5.00 Weight (Pounds): 135 General Appearance: no acute distress HEENT: mucous membranes moist Respiratory/Chest: lungs clear Cardiovascular: normal rate Abdomen: soft, non tender, other - GT feeding Extremities: other - left hand edema Neurologic/Psychiatric: aphasia Laboratory Tests Test 01/06/19 06:10 White Blood Count 4.5 K/UL (4.8-10.8) L Red Blood Count 3.45 M/UL (4.20-5.40) L Hemoglobin 10.6 G/DL (12.0-16.0) L Hematocrit 31.5 % (37.0-47.0) L Mean Corpuscular Volume 91 FL (80-99) Mean Corpuscular Hemoglobin 30.7 PG (27.0-31.0) Mean Corpuscular Hemoglobin Concent 33.6 G/DL (32.0-36.0) Red Cell Distribution Width 15.0 % (11.6-14.8) H Platelet Count 89 K/UL (150-450) L Mean Platelet Volume 7.2 FL (6.5-10.1) Neutrophils (%) (Auto) % (45.0-75.0) Lymphocytes (%) (Auto) % (20.0-45.0) Monocytes (%) (Auto) % (1.0-10.0) Eosinophils (%) (Auto) % (0.0-3.0) Basophils (%) (Auto) % (0.0-2.0) Differential Total Cells Counted 100 Neutrophils % (Manual) 74 % (45-75) Lymphocytes % (Manual) 18 % (20-45) L Monocytes % (Manual) 5 % (1-10) Eosinophils % (Manual) 3 % (0-3) Basophils % (Manual) 0 % (0-2) Band Neutrophils 0 % (0-8) Platelet Estimate Decreased L Platelet Morphology Normal Anisocytosis 1+ Sodium Level 149 MMOL/L (136-145) H Potassium Level 3.4 MMOL/L (3.5-5.1) L Chloride Level 115 MMOL/L (98-107) H Carbon Dioxide Level 27 MMOL/L (21-32) Anion Gap 7 mmol/L (5-15) Blood Urea Nitrogen 31 mg/dL (7-18) H Creatinine 0.8 MG/DL (0.55-1.30) Estimat Glomerular Filtration Rate mL/min (>60) Glucose Level 164 MG/DL (74-106) H Calcium Level 8.2 MG/DL (8.5-10.1) L Phosphorus Level 3.6 MG/DL (2.5-4.9) Current Medications Medications (Trade) Dose Ordered Sig/Laure Route PRN Reason Start Time Stop Time Status Last Admin Dose Admin Acetaminophen (Tylenol) 650 mg Q4H PRN GT Mild Pain/Temp > 100.5 01/05/19 18:59 02/01/19 18:58 Albuterol/ Ipratropium (Albuterol/ Ipratropium) 3 ml Q4H PRN HHN Shortness of Breath 01/05/19 18:59 01/09/19 18:58 Dextrose (Dextrose 50%) 25 ml Q30M PRN IV Hypoglycemia 01/05/19 18:59 02/01/19 18:58 Dextrose (Dextrose 50%) 50 ml Q30M PRN IV Hypoglycemia 01/05/19 18:59 02/04/19 18:58 Hydralazine HCl (Apresoline) 25 mg Q4H PRN GT bp over 160 syst 01/05/19 18:59 02/03/19 18:58 Lansoprazole (Prevacid) 30 mg BID GT 01/06/19 09:00 02/04/19 17:59 01/06/19 08:22 Lisinopril (Zestril) 2.5 mg DAILY GT 01/06/19 09:00 02/04/19 14:29 01/06/19 08:22 Meropenem 500 mg/ Sodium Chloride 55 ml @ 110 mls/hr EVERY 8 HOURS IVPB 01/05/19 22:00 01/10/19 13:59 01/06/19 05:45 Metoprolol Tartrate (Lopressor) 12.5 mg Q12HR GT 01/05/19 21:00 02/01/19 21:26 01/06/19 08:22 Potassium Chloride (K-Dur) 20 meq TWICE A DAY GT 01/06/19 09:30 02/05/19 09:29 Shimon Card MD Jan 06, 2019 10:25
[2019-01-06 12:00] VITALS: BP 183/90
--- NOTE | 2019-01-06 13:49 | NUR ---
Social Service Note Patient accepted at [facility], under hospice care, room B1. SW spoke with patient's son Shady Lara and confirmed dc plan with hospice to [facility]. Son spoke with [facility] and has signed documentation. Nurse to call report prior to transfer [phone]. 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
--- NOTE | 2019-01-06 14:05 | NUR ---
DISCHARGE PLANNING FAXED REFERRAL TO [facility]
[2019-01-06 14:10] VITALS: BP 183/90
[2019-01-06] MEDS ORDERED: NS 275ml ONE (15:39)
--- NOTE | 2019-01-06 15:55 | NUR ---
NURSE NOTES: Patient discharged to [facility] on hospice care, accompanied by ambulance personnel. G-tube intact. Leiva patent and intact, bag was emptied. IV safely removed, covered with gauze and tape. Report given to Viry DYKES.
--- NOTE | 2019-01-06 17:06 | General Progress Note ---
Assessment/Plan Assessment/Plan # Pancytopenia (as was present on last several ad,issions), likely related to septicemia, appears new baseline 50-70k, several causes possible including viral , medication or intrabone marrow related. Now has a uti. Does have a splenomegaly. Also could be related to bone marrow disease/myelodysplasia --> Cont to monitor plt count for improvement --> US abd: Mild left hydronephrosis. Possible left renal calyceal calculi. Negative for gallstones or dilated ducts Debris noted within the bladder --> Hep panel and HIV are both negative --> given extremely poor condition do not recommend a bone marrow biopsy, have discussed with family 08/01/18 with --> prognosis is very poor thus may not be of best option to get bone marrow biopsy at this time --> will rediscuss once sepsis resolves --> transfuse if plt <20k --> improved 01/06 at time of dc # Anemia of chronic disease. Multifactorial. Since admission Hgb has consistently remained between 8-9. --> Cont to monitor for stability --> Hgb goal above 7. Transfuse prn. --> IV iron completed prior admission and feritin is elevated # DVT of the left leg s/p IVC filter in 07/2018-- superficial femoral vein which is a deep vein, new onset, has not had these symptoms before. Lower hgb and plts --> given decreased h/h, low thrombocytopenia, do not recommend anticoag --> appreciate pulm recs --> smear reviewed and no schistocytes noted # Dehydration. IVF has been administered --> improved --> as per renal # DM OOC --> A1C goal <7 --> Cont on insulin sliding scale # Bacteremia/prior UTI. --> ID is following. Appreciate recs. --> Pt on IV abx. --> Cultures surveillance as per id # PEG placement s/p 08/04/18 # Bioethics consult The timing of this note does not necessarily reflect the time of the patient was seen. Greatly appreciate consultation! Subjective Allergies: Coded Allergies: No Known Allergies (Unverified , 12/14/18) Subjective 01/03: no events, cxr is pending, seen by others, 2l nc to continue 01/04: seen by pulm, to obtain bioethics consult as patient in and out of hospital several times in less than 3 months, code dnar recommended 01/05: on norvasc starting today, otherwise cbc better 01/06: dc on hospice care, no f/c Objective Last 24 Hour Vital Signs Date Time Temp Pulse Resp B/P (MAP) Pulse Ox O2 Delivery O2 Flow Rate FiO2 01/06/19 14:10 183/90 01/06/19 12:00 Nasal Cannula 3.0 01/06/19 12:00 97.3 76 16 183/90 (121) 97 01/06/19 08:28 Nasal Cannula 2.0 28 01/06/19 08:28 68 18 Nasal Cannula 2.0 28 01/06/19 08:28 100 Nasal Cannula 2.0 01/06/19 08:22 68 154/74 01/06/19 08:22 154/74 01/06/19 08:00 98.2 71 16 154/74 (100) 99 01/06/19 08:00 Nasal Cannula 3.0 01/06/19 04:00 98.5 72 20 156/75 (102) 100 01/06/19 04:00 Nasal Cannula 3.0 01/06/19 02:07 Nasal Cannula 3.0 01/06/19 02:05 98.5 110 18 124/73 (90) 97 01/06/19 00:00 98.2 160 15 206/120 (148) 92 01/06/19 00:00 Nasal Cannula 3.0 01/05/19 21:00 112 124/75 01/05/19 21:00 Nasal Cannula 3.0 01/05/19 20:00 98.5 89 18 98/55 (69) 92 01/05/19 19:07 98.8 76 16 147/68 (94) 99 01/05/19 17:15 Nasal Cannula 2.0 28 01/05/19 17:15 100 Nasal Cannula 2.0 28 01/05/19 17:15 75 20 Nasal Cannula 2.0 28 Intake and Output 01/05/19 01/06/19 18:59 06:59 Intake Total 655 ml 93.88 ml Output Total 1200 ml 1000 ml Balance -545 ml -906.12 ml IV Total 55 ml 93.88 ml Tube Feeding 600 ml Output Urine Total 1200 ml 1000 ml # Bowel Movements 1 3 Laboratory Tests 01/06/19 06:10: White Blood Count 4.5L, Red Blood Count 3.45L, Hemoglobin 10.6L, Hematocrit 31.5L, Mean Corpuscular Volume 91, Mean Corpuscular Hemoglobin 30.7, Mean Corpuscular Hemoglobin Concent 33.6, Red Cell Distribution Width 15.0H, Platelet Count 89L, Mean Platelet Volume 7.2, Neutrophils (%) (Auto) , Lymphocytes (%) (Auto) , Monocytes (%) (Auto) , Eosinophils (%) (Auto) , Basophils (%) (Auto) , Differential Total Cells Counted 100, Neutrophils % ( Manual) 74, Lymphocytes % (Manual) 18L, Monocytes % (Manual) 5, Eosinophils % ( Manual) 3, Basophils % (Manual) 0, Band Neutrophils 0, Platelet Estimate DecreasedL, Platelet Morphology Normal, Anisocytosis 1+, Sodium Level 149H, Potassium Level 3.4L, Chloride Level 115H, Carbon Dioxide Level 27, Anion Gap 7 , Blood Urea Nitrogen 31H, Creatinine 0.8, Estimat Glomerular Filtration Rate , Glucose Level 164H, Calcium Level 8.2L, Phosphorus Level 3.6 Height (Feet): 5 Height (Inches): 5.00 Weight (Pounds): 135 Objective VITAL SIGNS: on nc now GENERAL: She is an elderly demented female, in no acute distress. Nonverbal. HEENT: Normocephalic and atraumatic. Op Moist mucous membranes. NECK: Supple without lymphadenopathy. CHEST: Clear, but rales at the bases. HEART: Regular rate and rhythm. ABDOMEN: Soft, nontender, and nondistended. ++ peg EXTREMITIES: No cce Dewayne Gayle MD Jan 06, 2019 17:05
--- NOTE | 2019-01-06 17:09 | Nephrology Progress Note ---
Assessment/Plan Problem List: (1) Dehydration (2) Hyperkalemia (3) UTI (urinary tract infection) (4) Acute respiratory failure with hypoxemia (5) HTN (hypertension) Assessment Dehydration leading to pre renal azotemia (1) Diabetic nephropathy and proteinuria (2) HyperKalemia Electrolyte imbalance (3) Anemia (4) UTI (urinary tract infection) (5) CAD Plan now comfort care agree with Hospice will sign off Subjective ROS Limited/Unobtainable: Yes Interval Events/Complaints seen at 11 am Objective Objective Last 24 Hour Vital Signs Date Time Temp Pulse Resp B/P (MAP) Pulse Ox O2 Delivery O2 Flow Rate FiO2 01/06/19 14:10 183/90 01/06/19 12:00 Nasal Cannula 3.0 01/06/19 12:00 97.3 76 16 183/90 (121) 97 01/06/19 08:28 Nasal Cannula 2.0 28 01/06/19 08:28 68 18 Nasal Cannula 2.0 28 01/06/19 08:28 100 Nasal Cannula 2.0 28 01/06/19 08:22 68 154/74 01/06/19 08:22 154/74 01/06/19 08:00 98.2 71 16 154/74 (100) 99 01/06/19 08:00 Nasal Cannula 3.0 01/06/19 04:00 98.5 72 20 156/75 (102) 100 01/06/19 04:00 Nasal Cannula 3.0 01/06/19 02:07 Nasal Cannula 3.0 01/06/19 02:05 98.5 110 18 124/73 (90) 97 01/06/19 00:00 98.2 160 15 206/120 (148) 92 01/06/19 00:00 Nasal Cannula 3.0 01/05/19 21:00 112 124/75 01/05/19 21:00 Nasal Cannula 3.0 01/05/19 20:00 98.5 89 18 98/55 (69) 92 01/05/19 19:07 98.8 76 16 147/68 (94) 99 01/05/19 17:15 Nasal Cannula 2.0 28 01/05/19 17:15 100 Nasal Cannula 2.0 28 01/05/19 17:15 75 20 Nasal Cannula 2.0 28 Intake and Output 01/05/19 01/06/19 18:59 06:59 Intake Total 655 ml 93.88 ml Output Total 1200 ml 1000 ml Balance -545 ml -906.12 ml IV Total 55 ml 93.88 ml Tube Feeding 600 ml Output Urine Total 1200 ml 1000 ml # Bowel Movements 1 3 Laboratory Tests 01/06/19 06:10: White Blood Count 4.5L, Red Blood Count 3.45L, Hemoglobin 10.6L, Hematocrit 31.5L, Mean Corpuscular Volume 91, Mean Corpuscular Hemoglobin 30.7, Mean Corpuscular Hemoglobin Concent 33.6, Red Cell Distribution Width 15.0H, Platelet Count 89L, Mean Platelet Volume 7.2, Neutrophils (%) (Auto) , Lymphocytes (%) (Auto) , Monocytes (%) (Auto) , Eosinophils (%) (Auto) , Basophils (%) (Auto) , Differential Total Cells Counted 100, Neutrophils % ( Manual) 74, Lymphocytes % (Manual) 18L, Monocytes % (Manual) 5, Eosinophils % ( Manual) 3, Basophils % (Manual) 0, Band Neutrophils 0, Platelet Estimate DecreasedL, Platelet Morphology Normal, Anisocytosis 1+, Sodium Level 149H, Potassium Level 3.4L, Chloride Level 115H, Carbon Dioxide Level 27, Anion Gap 7 , Blood Urea Nitrogen 31H, Creatinine 0.8, Estimat Glomerular Filtration Rate , Glucose Level 164H, Calcium Level 8.2L, Phosphorus Level 3.6 Height (Feet): 5 Height (Inches): 5.00 Weight (Pounds): 135 General Appearance: no apparent distress Cardiovascular: tachycardia Respiratory/Chest: decreased breath sounds Abdomen: distended Objective no change Parvez Bergman MD Jan 06, 2019 17:09
--- NOTE | 2019-01-06 23:56 | Cardiology Progress Note ---
Assessment/Plan Assessment/Plan 1. Sinus tachycardia, likely due to sepsis and possibly pneumonia. Treatment of ST is to correct and treat the underlying etiology so in this sense, would be hydration and IV ABx therapy. 2. Slight elevation of troponin would be due to sepsis/tachycardia. No ischemic work up is required at this time. 3. Hx of CVA, agree with ASA and plavix taken at SNF as well as statin therapy. 4. Hx of HTN, continue hydralazine. 5. Hx of DM. Subjective Subjective Sinus rhythm at rate of 76. Objective Last 24 Hour Vital Signs Date Time Temp Pulse Resp B/P (MAP) Pulse Ox O2 Delivery O2 Flow Rate FiO2 01/06/19 14:10 183/90 01/06/19 12:00 Nasal Cannula 3.0 01/06/19 12:00 97.3 76 16 183/ (121) 97 01/06/19 08:28 Nasal Cannula 2.0 28 01/06/19 08:28 68 18 Nasal Cannula 2.0 28 01/06/19 08:28 100 Nasal Cannula 2.0 28 01/06/19 08:22 68 154/74 01/06/19 08:22 154/74 01/06/19 08:00 98.2 71 16 154/74 (100) 99 01/06/19 08:00 Nasal Cannula 3.0 01/06/19 04:00 98.5 72 20 156/75 (102) 100 01/06/19 04:00 Nasal Cannula 3.0 01/06/19 02:07 Nasal Cannula 3.0 01/06/19 02:05 98.5 110 18 124/73 (90) 97 01/06/19 00:00 98.2 160 15 206/120 (148) 92 01/06/19 00:00 Nasal Cannula 3.0 Intake and Output 01/05/19 01/06/19 19:00 07:00 Intake Total 651.94 ml 46.94 ml Output Total 1200 ml 1000 ml Balance -548.06 ml -953.06 ml IV Total 101.94 ml 46.94 ml Tube Feeding 550 ml Output Urine Total 1200 ml 1000 ml # Bowel Movements 1 3 Laboratory Tests Test 01/06/19 06:10 White Blood Count 4.5 K/UL (4.8-10.8) L Red Blood Count 3.45 M/UL (4.20-5.40) L Hemoglobin 10.6 G/DL (12.0-16.0) L Hematocrit 31.5 % (37.0-47.0) L Mean Corpuscular Volume 91 FL (80-99) Mean Corpuscular Hemoglobin 30.7 PG (27.0-31.0) Mean Corpuscular Hemoglobin Concent 33.6 G/DL (32.0-36.0) Red Cell Distribution Width 15.0 % (11.6-14.8) H Platelet Count 89 K/UL (150-450) L Mean Platelet Volume 7.2 FL (6.5-10.1) Neutrophils (%) (Auto) % (45.0-75.0) Lymphocytes (%) (Auto) % (20.0-45.0) Monocytes (%) (Auto) % (1.0-10.0) Eosinophils (%) (Auto) % (0.0-3.0) Basophils (%) (Auto) % (0.0-2.0) Differential Total Cells Counted 100 Neutrophils % (Manual) 74 % (45-75) Lymphocytes % (Manual) 18 % (20-45) L Monocytes % (Manual) 5 % (1-10) Eosinophils % (Manual) 3 % (0-3) Basophils % (Manual) 0 % (0-2) Band Neutrophils 0 % (0-8) Platelet Estimate Decreased L Platelet Morphology Normal Anisocytosis 1+ Sodium Level 149 MMOL/L (136-145) H Potassium Level 3.4 MMOL/L (3.5-5.1) L Chloride Level 115 MMOL/L (98-107) H Carbon Dioxide Level 27 MMOL/L (21-32) Anion Gap 7 mmol/L (5-15) Blood Urea Nitrogen 31 mg/dL (7-18) H Creatinine 0.8 MG/DL (0.55-1.30) Estimat Glomerular Filtration Rate mL/min (>60) Glucose Level 164 MG/DL (74-106) H Calcium Level 8.2 MG/DL (8.5-10.1) L Phosphorus Level 3.6 MG/DL (2.5-4.9) Objective HEENT: Atraumatic, normocephalic, PERRLA, EOMI. NECK: - JVD, carotid upstroke +2 with no bruits. LUNGS: Diminished breath sounds B/L. CARDIOVASCULAR: Normal S1, S2 is physiologically split, no murmurs, gallops or rubs. ABDOMEN: Bowel sounds are intact, no tenderness, masses, or organomegaly. EXTREMITIES: Pulses in the upper extremities are +2. No edema, clubbing or cyanosis. Deepak Aldana MD Jan 06, 2019 23:56
--- NOTE | 2019-01-09 02:00 | Consultation ---
DATE OF CONSULTATION: 01/02/2019 CARDIOLOGY CONSULTATION CONSULTING PHYSICIAN: Deepak Aldana M.D. REFERRING PHYSICIAN: Yi Asencio M.D. REASON FOR CONSULTATION: Management of tachycardia. HISTORY OF PRESENT ILLNESS: This is a very unfortunate 78-year-old Sinhala female, a resident of a nursing facility, who was brought in for management of altered level of consciousness. Apparently, the patient has been very restless and distressed at the nursing facility and was noted to have been altered and different from her usual mental status. Apparently according to the staff at the shelter facility, the patient was also hypoxemic with respiratory distress. At the time of arrival of paramedics, the patient confirmed to be hypoxic. She was placed on non-rebreather mask and brought to emergency department of [facility]. Unfortunately, the patient is a poor historian and not capable of providing a detailed history. This report is prepared by using the old records. At the time of arrival to the hospital, blood pressure was 124/73 mmHg and heart rate was 147. A 12-lead electrocardiogram done in the emergency department showed sinus tachycardia at the rate of 161 with presence of a septal infarct, age indeterminate. There was no acute ischemic features. The patient was admitted to [facility] for acute respiratory failure and hypoxemia. In the emergency department, the patient also grew out Escherichia coli ESBL, therefore was started on IV antibiotics. Cardiology consultation was made at the request of Dr. Asencio for management of tachycardia. PAST MEDICAL HISTORY: 1. History of CVA. 2. History of hypertension. 3. History of dementia. 4. History of metabolic encephalopathy. 5. History of dysphagia, status post PEG placement. 6. History of psychiatric problems. 7. History of diabetes mellitus. 8. History of hyperlipidemia. PAST SURGICAL HISTORY: Status post PEG placement. ALLERGIES: No known drug allergies. SOCIAL HISTORY: Denies any tobacco, alcohol, or illicit drug use. FAMILY HISTORY: No premature coronary artery disease in the first-degree relatives. REVIEW OF SYSTEMS: A 12-system review could not be done essentially due to the patient's nonverbal status. PHYSICAL EXAMINATION: VITAL SIGNS: Blood pressure was 124/73, pulse of 148, respirations of 24, and O2 saturation 100% on non-rebreather mask on 15 liter oxygen. GENERAL: The patient is a very unfortunate 78-year-old lady, chronically ill, cachectic, and in severe distress. She was found to be stuporous as well. HEENT: Atraumatic and normocephalic. Anicteric. Pupils are equal, round, and reactive to light and accommodation. Extraocular muscles intact. NECK: JVP less than 5 cm. No carotid bruit. Carotid upstrokes 2+ bilaterally. CARDIOVASCULAR: Normal S1, S2. Regular rate and rhythm. Tachycardic. No murmurs, gallops, or rubs. LUNGS: Diminished breath sounds at both bases with accessory muscle respiration use. She has rhonchi bilaterally. ABDOMEN: Soft, nontender, and nondistended. No hepatosplenomegaly. Positive bowel sounds. percutaneous endoscopic gastrostomy tube in place. EXTREMITIES: No evidence of edema, clubbing, or cyanosis. Lower extremities contracted. There is presence of a sacral decubitus ulceration. LABORATORY FINDINGS: WBC is 7.1, hemoglobin 10.3, hematocrit 31.0, and platelet count is 177,000 with left shift. Chemistry showed sodium 139, potassium is 7.2, which was repeated after treatment down to 5.3, chloride of 105, bicarbonate 26, BUN of 73, and creatinine 1.7. Glucose is 249. Lactic acid 2.6. Calcium is 9.9. Troponin I level was 0.213. INR is 0.9. Blood gas showed pH of 7.32, pCO2 of 48.5, pO2 of 378.1, bicarbonate 34.6, and O2 saturation 99%. ASSESSMENT AND PLAN: This is a very unfortunate 78-year-old female, seen in Cardiology consultation. 1. Sinus tachycardia most likely secondary to underlying sepsis/UTI with ESBL and possibly pneumonia. The management of sinus tachycardia is to eradicate the underlying etiology. The patient is currently on BiPAP mask. I will optimize oxygenation, intravenous fluids hydration, electrolyte correction, and pain management. We will obtain 2D echocardiography for assessment of LV systolic and diastolic function. 2. Further therapeutic and diagnostic decision will be based on the results of 2D echocardiography and the patient's response to hemodynamic management. 3. Acute renal failure with creatinine of 1.7. Continue hydration. 4. Respiratory failure status post BiPAP mask placement. 5. Dysphagia, status post PEG placement. 6. Metabolic encephalopathy. 7. Slight elevation of troponin I level could be secondary to underlying sepsis or demand ischemia mismatch or type 2 [id number] myocardial infarction. 8. Diabetes mellitus with associated hyperglycemia and proteinuria. 9. Urinary tract infection with ESBL. I would like to thank, Dr. Asencio, for allowing me to participate in the care of this patient. Deepak Aldana M.D. DR: MARISELA JOB#: [id number] CC:
--- NOTE | 2019-01-09 12:20 | Discharge Summary ---
Discharge Summary Discharge Summary _ DATE OF ADMISSION: 01/02/2019 DATE OF DISCHARGE: 01/06/2019 DISCHARGED BY: Dr. LOMELI REASON FOR ADMISSION: 78 years old female, with past medical history of recent CVA, diabetes mellitus , hypertension, dysphagia, G-tube, hyperlipidemia, dementia, resident of intermediate facility, presented with respiratory distress and altered mental status. Upon evaluation patient was tachycardic tachypneic and hypoxic. Patient was placed initially on 100% nonrebreathing mask. Laboratory workup revealed no leukocytosis, hemoglobin 10.3 hematocrit 31. Chemistry demonstrated potassium 7.2. BUN 73, creatinine 1.7. Lactic acid 2.6. Glucose 249. Troponin elevated 0.213. Urinalysis revealed evidence of UTI. Patient was placed on the BiPAP with 100% FiO2. ABG was stable. Patient was provided with IV fluids. Heart rate improved. Patient pancultured and started on empiric antibiotics for UTI. Hyperkalemia was treated. Patient subsequently was admitted for further management. CONSULTANTS: line production cook Dr. Aldana neurologist Dr. Durbin pulmonary Dr. Parekh ID specialist Dr. Stinson GI specialist Dr. Argueta collar setter overlock Dr. Bergman change management facilitator/oncologist Dr. Gayle surgery Dr. Montgomery urologist [facility]: Patient admitted. [employer] closely followed. Supplemental oxygen titrated to keep pulse oximetry above 92%. Pulmonary toilet provided as needed. Prior to discharge patient was able to be weaned to oxygen via nasal cannula. Chest x-ray revealed left base pleural effusion with possible underlying parenchymal disease. Venous duplex bilateral lower extremity revealed recanalized chronic thrombus in the superficial femoral vein left lower extremity. CT of the abdomen and pelvis demonstrated evidecne of IVC filter. Bus Trolley And Taxi Instructor closely followed. Patient had sinus tachycardia due to sepsis and possible pneumonia. Treatment of sinus tachycardia was to correct underlying etiology / with IV fluids and antibiotic. Slight elevation of troponin was likely due to sepsis and tachycardia. No ischemic workup was required at this time, as per line production cook. Patient started on antiplatelet therapy with aspirin and Plavix as well as statin due to recent history of CVA. Blood pressure was managed with hydralazine. Blood sugar was managed with sliding scale of insulin. Infectious disease doctor followed. Blood culture revealed Proteus mirabilis and Staph coag negative. Urine culture revealed Proteus mirabilis. Repeated urine culture revealed E. coli ESBL and Proteus mirabilis. Antibiotic regimen was optimized as per ID recommendation. Bacteremia was likely due to urinary tract infection. Urinary tract infection likely due to multiply bladder stone and hydronephrosis. Patient developed severe pancytopenia with WBC 1.7, hemoglobin 6.5, hematocrit 20.7 and platelet count 55. Rework Machine Operator consult was requested. Per change management facilitator, pancytopenia was likely related to septicemia. Pancytopenia was present on last previous admissions as well. Rework Machine Operator recommended continue to monitor counts for improvement. On prior admission, hepatitis panel was negative and HIV status was nonreactive. Patient also exhibited evidence of anemia of chronic disease , which was multifactorial. Hemoglobin and hematocrit were closely monitored with goal to keep hemoglobin above 7. On prior admission patient had IV iron treatment completed , and ferritin was elevated. Patient received transfusion of 2 units packed red blood cells. Prior to discharge hemoglobin 10.6, hematocrit 31.5. Patient had DVT of the left leg, status post IVC filter in 07/2018. Counts were closely monitored . Prior to discharge WBC 4.5, hemoglobin 10.6, hematocrit 31.5. Platelet count 89. Quality Assurance Group Leader closely followed. Renal parameters and electrolytes were closely monitored. Electrolytes corrected as needed nephrotoxins were avoided. Patient with evidence diabetic nephropathy and proteinuria. CT scan of abdomen and pelvis demonstrated moderate bilateral hydronephrosis. Left distal ureteral stone migrated to jamison proximal position compared with the last examination. Right side hydroureteronephrosis, probably on the basis of multiply bladder calculi and evidence of blood within the bladder lumen. Abdominal ultrasound demonstrated bilateral renal stones and bladder stones. Bilateral hydronephrosis. Splenomegaly. Pleural effusion. Urologist seen and evaluated. Urologist recommended to proceed with CT urogram with and without IV contrast to assess the presence or absence of the stone and hydronephrosis as well as the bladder condition. Dehydration was leading to prerenal azotemia. Prior to discharge, after IV fluids replacement, potassium 3.4, from initial 7.2; BUN 31, from initial 73; creatinine 0.8 from initial 1.7 . GI specialist followed. Strict aspiration precaution maintained. G-tube feeding continued. Patient was able to tolerate G-tube feeding. Patient started on PPI. Antiemetic provided as needed. Bowel regimen instituted. Neurologist followed. Patient had dementia likely related to Alzheimer's disease along with advanced cerebrovascular disease. Patient also had metabolic encephalopathy likely due to urinary tract infection. Neurologist recommended to continue with antiplatelet therapy as well as antibiotic for treatment for UTI. Surgeon followed for present on admission right gluteal cleft pressure injury. Wound care provided as per surgeon recommendation, continue wound care at the facility. Protein supplements implemented in plan of care as per registered dietitian recommendation. After multiply conversation with the family regarding guarded prognosis, family agreed to DNR status with hospice management. CODE STATUS subsequently was changed to DNR/DNI. Patient was accepted at [facility] under hospice care. Family concurred with placement. FINAL DIAGNOSES: Sepsis with Proteus septicemia Complicated UTI with E. coli ESBL and Proteus Pancytopenia, likely related to septicemia Encephalopathy due to metabolic factor or toxin Dementia with behavioral disturbances Dehydration, leading to prerenal azotemia Feeding by G-tube DVT left leg, status post IVC filter 07/2018 Hyperkalemia -resolved Acute respiratory failure with hypoxemia -resolved Hypertension Anemia of chronic disease Diabetic nephropathy and proteinuria Diabetes mellitus out of control Sinus tachycardia likely due to sepsis-resolved Slight elevation of troponin, likely due to sepsis/tachycardia History of CVA Hypertension Right gluteal cleft pressure injury , present on admission Protein calorie malnutrition DISCHARGE MEDICATIONS: See Medication Reconciliation list. DISCHARGE INSTRUCTIONS: Patient was discharged to intermediate facility under hospice care. I have been assigned to dictate discharge summary for this account. I was not involved in the patient's management. Sarah Hunter NP Jan 09, 2019 12:20
== END 2019-01-06 15:40 | disposition hospice, inpatient (51) | DRG 871 ==
LOC: EDBD 00:13 → EMR 00:56 → 2W 03:50 → EDBEDREQ 04:19 → 4E 01-05 18:35
PROC: 5A09357 Assistance with Respiratory Ventilation, Less than 24 Consecutive Hours, Continuous Positive Airway Pressure (ICD-10-PCS; 2019-01-02)
PROC: 30263N1 (ICD-10-PCS; principal; 2019-01-03)
DX: A41.59 Other Gram-negative sepsis (principal); J96.01 Acute respiratory failure with hypoxia; G93.41 Metabolic encephalopathy; N17.9 Acute kidney failure, unspecified; I69.359 Hemiplegia and hemiparesis following cerebral infarction affecting unspecified side; N39.0 Urinary tract infection, site not specified; D61.818 Other pancytopenia; E46 Unspecified protein-calorie malnutrition; I82.502 Chronic embolism and thrombosis of unspecified deep veins of left lower extremity; Z43.1 Encounter for attention to gastrostomy; N13.30 Unspecified hydronephrosis; F03.91 Unspecified dementia, unspecified severity, with behavioral disturbance; R65.20 Severe sepsis without septic shock; Z79.82 Long term (current) use of aspirin; Z79.4 Long term (current) use of insulin; B96.20 Unspecified Escherichia coli [E. coli] as the cause of diseases classified elsewhere; Z16.12 Extended spectrum beta lactamase (ESBL) resistance; I10 Essential (primary) hypertension; D63.8 Anemia in other chronic diseases classified elsewhere; L89.890 Pressure ulcer of other site, unstageable; E86.0 Dehydration; E11.65 Type 2 diabetes mellitus with hyperglycemia; R13.10 Dysphagia, unspecified; D69.6 Thrombocytopenia, unspecified; E11.21 Type 2 diabetes mellitus with diabetic nephropathy; E87.5 Hyperkalemia; R31.0 Gross hematuria; G30.9 Alzheimer's disease, unspecified; F02.80 Dementia in other diseases classified elsewhere, unspecified severity, without behavioral disturbance, psychotic disturbance, mood disturbance, and anxiety; F01.50 Vascular dementia, unspecified severity, without behavioral disturbance, psychotic disturbance, mood disturbance, and anxiety; E78.5 Hyperlipidemia, unspecified; Z66 Do not resuscitate
CPT/HCPCS: 36415; 36600; 71045; 74178; 76700; 80048; 80053; 80061; 80076; 81003; 82550; 82553; 82607; 82728; 82746; 82803; 82962; 83540; 83550; 83605; 83735; 83880; 84100; 84165; 84443; 84484; 84550; 85007; 85025; 85610; 85730; 86140; 86334; 86850; 86900; 86901; 86920; 87040; 87081; 87086; 87181; 93005; 93970; 94640; 94660; 94664; 94760; 96361; 96365; 96375; 99291; J8499